=== PATIENT | male | born 1995 | race Caucasian/White ===

== ENCOUNTER 2023-05-21 13:37 | Emergency (ER) | payer OTHER, SELFPAY ==
[2023-05-21 13:49] VITALS: BP 134/83; PULSE 72; RESP 18; TEMP 36.9; O2SAT 97; BMI 18.7
--- NOTE | 2023-05-21 14:00 | CT_ITS ---
The [address] [address] Patient Name: LULY GIRON MRN: [id number] date: 1995 Sex: M Assigned Patient Location: ER Current Patient Location: Accession/Order Number: [id number] Exam Date: 05/21/2023 14:19 Report Date: 05/21/2023 15:18 At the request of: MEHRDAD VELOZ Procedure: CT abdomen pelvis wo con EXAM: CT abdomen pelvis wo con HISTORY: upper abdominal pain, vomiting right upper quadrant pain for 2 weeks. COMPARISON: 12/24/2021. TECHNIQUE: Axial CT imaging was performed through the abdomen and pelvis without intravenous contrast. Multiplanar reformats were performed. Dose reduction techniques were achieved by using automated exposure control and/or adjustment of mA and/or kV according to patient size and/or use of iterative reconstruction technique. FINDINGS: Lung bases: Lung bases are clear. No pleural effusion. GI upper: Unremarkable. Liver: Normal size and contour. Postsurgical changes compatible with provided history of liver transplant. Gallbladder: Surgically absent. Biliary system: No intra or extrahepatic biliary ductal dilatation. Spleen: Normal size. Pancreas: Unremarkable. Adrenal glands: Normal adrenal glands. Kidneys/ureters: Normal contours. No hydronephrosis or ureterolithiasis. Bilateral nephrolithiasis is demonstrated with slightly increased stone burden compared to prior examination. Vessels: No aneurysm. Lymph Nodes: No lymphadenopathy. Small bowel: No wall thickening or dilatation. Colon: No wall thickening or dilatation. Appendix: Not identified; no evidence of inflammatory change of the right lower quadrant. Peritoneal cavity: Trace/small volume free fluid within the pelvis. There is mild mesenteric edema. No pneumoperitoneum. Lower : Bladder wall prominence is favored related to decompressed state. Please exclude other etiologies on clinical grounds. Bones: No acute bony abnormality. Soft tissues: No acute finding. Additional findings: None. CT/CT abdomen pelvis wo con IMPRESSION: 1. Bilateral nephrolithiasis. No obstructive uropathy. 2. Trace/small volume free fluid within the pelvis with mild, diffuse mesenteric edema. Findings are nonspecific. In patient with history of liver transplant, portal hypertension should be considered as etiology. 3. Additional findings as above. Electronically authenticated by: ARLEEN ENGLE Date: 05/21/2023 15:18
[2023-05-21] MEDS: ONDANSETRON PF 4 MG/2 ML VIAL IV (14:11)
[2023-05-21] MEDS: HYOSCYAMINE SULFATE 0.125 MG TAB.SUBL SL (14:11)
[2023-05-21] MEDS: 0.9 % SODIUM CHLORIDE 1,000 ML 999 ML IV (14:11)
[2023-05-21 14:12] LABS: Basophils Percent Auto 0.7 % (0.2-2.0); Eosinophils Absolute Auto 0.1 10^3/uL (0.0-0.7); Eosinophils Percent Auto 1.3 % (0.9-7.0); Hematocrit 40.7 % (42.0-54.0); Hemoglobin 13.5 g/dL (14.0-18.0); Immature Granulocytes Abs Auto 0.01 10^3/uL (0.00-0.03); Immature Granulocytes Pct Auto 0.2 % (0.0-0.5); Lymphocytes Absolute Auto 2.1 10^3/uL (1.2-3.8); Lymphocytes Percent Auto 37.9 % (20.5-60.0); Mean Corpuscular HGB Conc 33.2 g/dL (29.9-35.2); Mean Corpuscular Hemoglobin 31.1 pg (25.9-34.0); Mean Corpuscular Volume 93.8 fL (80.0-94.0); Mean Platelet Volume 11.3 fL (9.5-13.5); Monocytes Absolute Auto 0.4 10^3/uL (0.3-0.8); Neutrophils Absolute Auto 2.9 10^3/uL (1.4-6.5); Neutrophils Percent Auto 51.9 % (43.0-75.0); Platelet Count 173 10^3/uL (150-450); Red Blood Count 4.34 10^6/uL (4.70-6.10); Red Cell Distribution Width 12.9 % (11.0-15.0); White Blood Count 5.5 10^3/uL (4.0-11.0)
[2023-05-21 14:14] LABS: Bilirubin Urine SMALL (NEGATIVE); Blood Urine TRACE-I (NEGATIVE); Clarity Urine CLEAR (CLEAR); Color Urine YELLOW (YELLOW); Glucose Urine UA NEGATIVE (NEGATIVE); Ketones Urine TRACE mg/dL (NEGATIVE); Leukocyte Esterase Urine TRACE (NEGATIVE); Nitrite Urine NEGATIVE (NEGATIVE); Protein Urine NEGATIVE (NEG/TRACE); Specific Gravity Urine 1.025 (1.005-1.025)
[2023-05-21 14:23] LABS: Urine Microscopic Indicated YES
[2023-05-21 14:25] LABS: Alanine Aminotransferase 93 U/L (16-63); Albumin Globulin Ratio 0.8; Albumin Level 3.3 g/dL (3.4-5.0); Alkaline Phosphatase 212 U/L (46-116); Anion Gap 11.6; Aspartate Amino Transferase 91 U/L (15-37); BUN Creatinine Ratio 16.5; Bilirubin Total 1.4 mg/dL (0.2-1.0); Calcium 8.8 mg/dL (8.5-10.1); Carbon Dioxide 27.7 mmol/L (21.0-32.0); Chloride 103 mmol/L (98-107); Estimated GFR (African America >60 (>=60); Estimated GFR (Non-African Ame >60 (>=60); Globulin 4.2 g/dL; Glucose 201 mg/dL (74-106); Potassium 4.3 mmol/L (3.5-5.1); Sodium 138 mmol/L (136-145); Total Protein 7.5 g/dL (6.4-8.2)
[2023-05-21 14:46] LABS: Bacteria Urine TRACE #/HPF (NONE SEEN); Cast Seen? SEEN #/LPF (NONE SEEN); Crystals Seen? None Seen #/HPF (None Seen); Hyaline Casts Urine RARE; Mucus Urine SMALL (NONE SEEN); Squamous Epithelial Cell Urine FEW #/LPF (NONE/RARE); Urine Culture Indicated YES
--- NOTE | 2023-05-21 16:01 | ED_ITS ---
HPI - General Adult General Chief complaint: Abdominal Pain Stated complaint: HEADACHE Time Seen by Provider: 05/21/23 13:53 Source: patient and family Mode of arrival: walk-in Limitations: no limitations History of Present Illness HPI narrative: Patient presents with one week of fatigue, 4 days of RUQ abdominal pain, 2 days of nausea/vomiting and yellow stools. He had liver transplant in 2015 and sees [facility] transplant team for that. 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 He apparently had kissing disease in December =- mono? He is concerned that he might be dehydrated after working outside. No urinary symptoms, fever or chills. He had prior cholecystectomy when they performed the liver transplant. Related Data Home Medications Medication Instructions Recorded Confirmed amlodipine 5 mg tablet 5 mg PO DAILY 05/21/23 05/21/23 aspirin 81 mg tablet,delayed 81 mg PO DAILY 05/21/23 05/21/23 release (Adult Low Dose Aspirin) insulin lispro 100 unit/mL 1 sliding scale dose 05/21/23 subcutaneous solution magnesium oxide 400 mg (241.3 mg 400 mg PO BID 05/21/23 05/21/23 magnesium) tablet mycophenolate mofetil 250 mg 250 mg PO Q12H 05/21/23 05/21/23 capsule prednisone 1 mg tablet 1 mg PO DAILY 05/21/23 05/21/23 tacrolimus 1 mg capsule, 1 mg PO Q12H 05/21/23 05/21/23 immediate-release Previous Rx's Medication Instructions Recorded ciprofloxacin HCl 500 mg tablet 500 mg PO BID #10 tabs 05/21/23 (Cipro) hyoscyamine sulfate 0.125 mg 0.125 mg PO Q6H PRN abdominal pain 05/21/23 sublingual tablet (Levsin/SL) #20 tabs ondansetron 4 mg disintegrating 4 mg PO Q6H PRN nausea and 05/21/23 tablet vomiting #20 tabs Allergies Allergy/AdvReac Type Severity Reaction Status Date / Time No Known Drug Allergies Allergy Verified 05/21/23 13:45 PFSH PFSH Social History Smoking status: Never smoker Exam Narrative Exam Narrative: Nurses notes and vital signs reviewed and patient is not hypoxic. afebrile General: Well-appearing and in no apparent distress. Skin: Warm, dry, no pallor noted. No rash. Head: Normocephalic, atraumatic. Neck: Supple, non-tender. Eye: Pupils are equal, round and EOMI. No scleral icterus. Ears, Nose, Mouth, and Throat: Oral mucosa is dry Cardiovascular: Regular Rate and Rhythm without murmur, gallop or rub. Respiratory: No accessory muscle use or respiratory distress. Lungs are clear to auscultation, no wheezing, rales or rhonchi Back: No CVA tenderness Musculoskeletal: normal ROM GI: Abdomen is soft, non-distended. Normal bowel sounds. No masses appreciated. RUQ tenderness to palpation. No rebound, guarding, or rigidity noted. Neurological: A&O x4. No cranial nerve dysfunction observed. No truncal ataxia. Moves all extremities. Sensation intact. Psychiatric: Cooperative and interactive. Normal mood and affect. Constitutional Vital Signs, click to edit/add: Last Vital Signs Temp 98.5 F 05/21/23 13:49 Pulse 63 05/21/23 16:11 Resp 16 05/21/23 16:11 BP 116/75 05/21/23 16:11 Pulse Ox 100 05/21/23 16:11 O2 Del Method Room Air 05/21/23 16:11 Course Vital Signs Vital signs: Vital Signs Temperature 98.5 F 05/21/23 13:49 Pulse Rate 72 05/21/23 13:49 Respiratory Rate 18 05/21/23 13:49 Blood Pressure 134/83 05/21/23 13:49 Pulse Oximetry 97 05/21/23 13:49 Oxygen Delivery Method Room Air 05/21/23 13:49 Temperature 98.5 F 05/21/23 13:49 Pulse Rate 63 05/21/23 16:11 Respiratory Rate 16 05/21/23 16:11 Blood Pressure 116/75 05/21/23 16:11 Pulse Oximetry 100 05/21/23 16:11 Oxygen Delivery Method Room Air 05/21/23 16:11 Medical Decision Making MDM Narrative Medical decision making narrative: Peripheral IV established and blood sent for testing. Patient underwent CT abd/pelvis - I did it without contrast due to the patient's CKD history. He has bilateral nephroliths without obstructive uropathy or ureteral stones. Trace free fluid in the pelvis with some mesenteric edema - non-specific. Radiologist asked that portal HTN be considered. Bladder wall prominence consistent with UA findings suggesting cystitis - patient prescribed antibiotic for home use. No focal RUQ findings to account for the patient's pain. He felt better after ED treatment and was able to be discharged home. I prescribed zofran and Levsin for the patient to take at home and discussed dietary changes - clear liquids - until the symptoms improved. Lab Data Lab results reviewed: Yes I reviewed the patient's lab results Labs: Lab Results 05/21/23 Range/Units 13:57 WBC 5.5 (4.0-11.0) 10^3/uL RBC 4.34 L (4.70-6.10) 10^6/uL Hgb 13.5 L (14.0-18.0) g/dL Hct 40.7 L (42.0-54.0) % MCV 93.8 (80.0-94.0) fL MCH 31.1 (25.9-34.0) pg MCHC 33.2 (29.9-35.2) g/dL RDW 12.9 (11.0-15.0) % Plt Count 173 (150-450) 10^3/uL MPV 11.3 (9.5-13.5) fL Neut % (Auto) 51.9 (43.0-75.0) % Lymph % (Auto) 37.9 (20.5-60.0) % [place] % (Auto) 8.0 (1.7-12.0) % Eos % (Auto) 1.3 (0.9-7.0) % Baso % (Auto) 0.7 (0.2-2.0) % Neut # (Auto) 2.9 (1.4-6.5) 10^3/uL Lymph # (Auto) 2.1 (1.2-3.8) 10^3/uL [place] # (Auto) 0.4 (0.3-0.8) 10^3/uL Eos # (Auto) 0.1 (0.0-0.7) 10^3/uL Baso # (Auto) 0.0 (0.0-0.1) 10^3/uL Abs Immat Gran (auto) 0.01 (0.00-0.03) 10^3/uL Imm/Tot Granulo (auto) 0.2 (0.0-0.5) % Sodium 138 (136-145) mmol/L Potassium 4.3 (3.5-5.1) mmol/L Chloride 103 (98-107) mmol/L Carbon Dioxide 27.7 (21.0-32.0) mmol/L Anion Gap 11.6 BUN 19.0 H (7.0-18.0) mg/dL Creatinine 1.15 (0.70-1.30) mg/dL Est GFR ( Amer) >60 (>=60) Est GFR (Non-Af Amer) >60 (>=60) BUN/Creatinine Ratio 16.5 Glucose 201 H (74-106) mg/dL Calcium 8.8 (8.5-10.1) mg/dL Total Bilirubin 1.4 H (0.2-1.0) mg/dL AST 91 H (15-37) U/L ALT 93 H (16-63) U/L Alkaline Phosphatase 212 H (46-116) U/L Total Protein 7.5 (6.4-8.2) g/dL Albumin 3.3 L (3.4-5.0) g/dL Globulin 4.2 g/dL Albumin/Globulin Ratio 0.8 Lipase 111.0 (73.0-393.0) U/L Urine Color Yellow (YELLOW) Urine Clarity Clear (CLEAR) Urine pH 6.0 (5.0-9.0) Ur Specific [place] 1.025 (1.005-1.025) Urine Protein Negative (NEG/TRACE) mg/dL Urine Glucose (UA) Negative (NEGATIVE) mg/dL Urine Ketones Trace A (NEGATIVE) mg/dL Urine Occult Blood Trace-i (NEGATIVE) Urine Nitrite Negative (NEGATIVE) Urine Bilirubin Small A (NEGATIVE) Urine Urobilinogen 4.0 A (0.2-1.0) EU/dL Ur Leukocyte Esterase Trace A (NEGATIVE) Urine RBC 2-5 A (0-2) #/HPF Urine WBC 5-10 A (NONE SEEN) #/HPF Ur Squamous Epith Cells Few A (NONE/RARE) #/LPF Urine Crystals None seen (None Seen) #/HPF Urine Bacteria Trace A (NONE SEEN) #/HPF Urine Casts Seen A (NONE SEEN) #/LPF Hyaline Casts Rare Urine Mucus Small A (NONE SEEN) Ur Culture Indicated? Yes Imaging Data CT scan - abdomen: Radiologist's impression: Patient Name: LULY GIRON MRN: [id number] date: 1995 Sex: M Assigned Patient Location: ER Current Patient Location: ER Accession/Order Number: [id number] Exam Date: 05/21/2023 14:19 Report Date: 05/21/2023 15:18 At the request of: MEHRDAD VELOZ Procedure: CT abdomen pelvis wo con EXAM: CT abdomen pelvis wo con HISTORY: upper abdominal pain, vomiting right upper quadrant pain for 2 weeks. COMPARISON: 12/24/2021. TECHNIQUE: Axial CT imaging was performed through the abdomen and pelvis without intravenous contrast. Multiplanar reformats were performed. Dose reduction techniques were achieved by using automated exposure control and/or adjustment of mA and/or kV according to patient size and/or use of iterative reconstruction technique. FINDINGS: Lung bases: Lung bases are clear. No pleural effusion. GI upper: Unremarkable. Liver: Normal size and contour. Postsurgical changes compatible with provided history of liver transplant. Gallbladder: Surgically absent. Biliary system: No intra or extrahepatic biliary ductal dilatation. Spleen: Normal size. Pancreas: Unremarkable. Adrenal glands: Normal adrenal glands. Kidneys/ureters: Normal contours. No hydronephrosis or ureterolithiasis. Bilateral nephrolithiasis is demonstrated with slightly increased stone burden compared to prior examination. Vessels: No aneurysm. Lymph Nodes: No lymphadenopathy. Small bowel: No wall thickening or dilatation. Colon: No wall thickening or dilatation. Appendix: Not identified; no evidence of inflammatory change of the right lower quadrant. Peritoneal cavity: Trace/small volume free fluid within the pelvis. There is mild mesenteric edema. No pneumoperitoneum. Lower : Bladder wall prominence is favored related to decompressed state. Please exclude other etiologies on clinical grounds. Bones: No acute bony abnormality. Soft tissues: No acute finding. Additional findings: None. IMPRESSION: 1. Bilateral nephrolithiasis. No obstructive uropathy. 2. Trace/small volume free fluid within the pelvis with mild, diffuse mesenteric edema. Findings are nonspecific. In patient with history of liver transplant, portal hypertension should be considered as etiology. 3. Additional findings as above. Electronically authenticated by: ARLEEN ENGLE Date: 05/21/2023 15:18 Discharge Plan Discharge Chief Complaint: Abdominal Pain Clinical Impression: Abdominal pain, Cystitis, Vomiting Patient Disposition: Home, Self-Care Time of Disposition Decision: 16:20 Prescriptions / Home Meds: New hyoscyamine sulfate [Levsin/SL] 0.125 mg tablet, sublingual 0.125 mg PO Q6H PRN (Reason: abdominal pain) Qty: 20 0RF ondansetron 4 mg tablet,disintegrating 4 mg PO Q6H PRN (Reason: nausea and vomiting) Qty: 20 0RF ciprofloxacin HCl [Cipro] 500 mg tablet 500 mg PO BID Qty: 10 0RF No Action amlodipine 5 mg tablet 5 mg PO DAILY magnesium oxide 400 mg (241.3 mg magnesium) tablet 400 mg PO BID mycophenolate mofetil 250 mg capsule 250 mg PO Q12H prednisone 1 mg tablet 1 mg PO DAILY tacrolimus 1 mg capsule 1 mg PO Q12H aspirin [Adult Low Dose Aspirin] 81 mg tablet,delayed release (DR/EC) 81 mg PO DAILY insulin lispro 100 unit/mL solution 1 sliding scale dose Rx Instructions: Insulin pump Instructions: Urinary Tract Infection in Men (ED), Acute Nausea and Vomiting (ED), Abdominal Pain (ED) Stand Alone Forms: Portal Instructions Referrals: Camille Avila MD [Primary Care Provider] - 1 week
[2023-05-21 16:11] VITALS: BP 116/75; PULSE 63; RESP 16; O2SAT 100
[2023-05-21 18:07] LABS: Mono Screen NEGATIVE (NEGATIVE)
== END 2023-05-21 16:27 | disposition home or self-care (01) ==
PROVIDERS: Emergency Provider Emergency Medicine; PCP Family Medicine
DX: N30.90 Cystitis, unspecified without hematuria (principal); R10.9 Unspecified abdominal pain; R11.10 Vomiting, unspecified; Z94.4 Liver transplant status; N18.9 Chronic kidney disease, unspecified; Z90.49 Acquired absence of other specified parts of digestive tract; Z79.82 Long term (current) use of aspirin; Z79.899 Other long term (current) drug therapy; Z79.4 Long term (current) use of insulin
CPT/HCPCS: 36415; 74176; 80053; 81001; 83690; 85025; 86308; 87086; 96374; 99285

== ENCOUNTER 2024-05-08 20:40 | Emergency (ER) | payer OTHER, SELFPAY ==
[2024-05-08 20:44] VITALS: BP 138/99; PULSE 97; TEMP 36.7; O2SAT 99; BMI 17.9
--- NOTE | 2024-05-08 20:56 | PC.NURSE ---
Red slightly raised rash to left groin area, no drainage present.
--- NOTE | 2024-05-08 21:00 | CT_ITS ---
[address] [address] Patient Name: LULY GIRON MRN: [id number] date: 1995 Sex: M Assigned Patient Location: ER Current Patient Location: ER Accession/Order Number: [id number] Exam Date: 05/08/2024 21:18 Report Date: 05/08/2024 23:07 At the request of: DANIELITO MARKER Procedure: CT abdomen pelvis wo con EXAMINATION:CT abdomen pelvis wo con INDICATION:left flank pain hx kidney stones COMPARISON:05/21/2023 TECHNIQUE:Multiple thin section transaxial slices were acquired through the abdomen and pelvis without intravenous contrast. Coronal and sagittal reconstructed images were reviewed. Oral contrastWas not administered. FINDINGS: LOWER CHEST: Lung bases are clear. There is increased attenuation of the interventricular septum in the heart consistent with chronic anemia. LIVER: Status post liver transplant. There is a heterogeneous attenuation of the liver. GALLBLADDER AND BILIARY SYSTEM: The gallbladder surgically absent. SPLEEN: The spleen is upper limits of normal in size measuring 13 cm. PANCREAS: The pancreas is unremarkable. ADRENAL GLANDS: The adrenal glands are unremarkable. KIDNEYS AND URETERS: There is no hydronephrosis of the kidneys.Ureters are within normal limits without obstructing urologic calcifications. There are numerous nonobstructive bilateral intrarenal calculi present. VASCULATURE: No aneurysm of the abdominal aorta. PERITONEUM/RETROPERITONEUM: There is mild ascites and mesenteric edema. LYMPH NODES: No suspicious lymphadenopathy. GASTROINTESTINAL TRACT: The bowel is normal in caliber.The small bowel loops, predominantly the jejunum demonstrates diffuse wall thickening. Enteritis cannot be excluded.The appendix is visualized and is not inflamed. BLADDER: The urinary bladder is unremarkable. REPRODUCTIVE SYSTEM: Reproductive system is unremarkable. BODY WALL: There is a tiny fat-containing umbilical hernia. BONES: Osseous structures are unremarkable. CT/CT abdomen pelvis wo con IMPRESSION: 1. Heterogeneous attenuation of the liver. 2. Multiple nonobstructive bilateral intrarenal calculi. No obstructive uropathy. 3. There is apparent wall thickening of the small bowel loops, predominantly the jejunum. Enteritis cannot be excluded. 4. Mild ascites and diffuse mesenteric edema. Electronically authenticated by: HARRIET MOTT Date: 05/08/2024 23:07
--- NOTE | 2024-05-08 21:02 | ED.GENADUL1 ---
HPI HPI - General Adult General Chief complaint: Back Pain/Injury Stated complaint: Back Pain Time Seen by Provider: 05/08/24 20:51 Source: patient Mode of arrival: walk-in History of Present Illness HPI narrative: This 29-year-old male with a history of diabetes, chronic kidney disease and is status post liver transplant in 2016 due to autoimmune liver disease presents for evaluation of 3 to 4 days of left sided low back pain. He thought he may have sciatica but points to the left flank. He has not had any fever. He has not had any nausea or vomiting. He states his sugars have been running high. He does have a history of kidney stones. He denies any chest pain or shortness of breath. He also has a flat dry pink rash with some small pustules on his left inguinal area that has been present for the past several days. He states it is a stinging and burning sensation. There has been no drainage from the area. There is no extension into the perineum. Related Data Home Medications ?Medication ?Instructions ?Recorded ?Confirmed amlodipine 5 mg tablet 5 mg PO DAILY 05/21/23 05/21/23 aspirin 81 mg tablet,delayed 81 mg PO DAILY 05/21/23 05/21/23 release (Adult Low Dose Aspirin) insulin lispro 100 unit/mL 1 sliding scale dose 05/21/23 subcutaneous solution magnesium oxide 400 mg (241.3 mg 400 mg PO BID 05/21/23 05/21/23 magnesium) tablet mycophenolate mofetil 250 mg 250 mg PO Q12H 05/21/23 05/21/23 capsule prednisone 1 mg tablet 1 mg PO DAILY 05/21/23 05/21/23 tacrolimus 1 mg capsule, 1 mg PO Q12H 05/21/23 05/21/23 immediate-release Previous Rx's ?Medication ?Instructions ?Recorded ciprofloxacin HCl 500 mg tablet 500 mg PO BID #10 tabs 05/21/23 (Cipro) hyoscyamine sulfate 0.125 mg 0.125 mg PO Q6H PRN abdominal pain 05/21/23 sublingual tablet (Levsin/SL) #20 tabs ondansetron 4 mg disintegrating 4 mg PO Q6H PRN nausea and 05/21/23 tablet vomiting #20 tabs Allergies Allergy/AdvReac Type Severity Reaction Status Date / Time red (food color) AdvReac Intermediate Swelling Verified 05/08/24 20:49 of Lip/Tongue/Throat Opioid HPI Opioid Management Most Recent Opioid Data: Last Pain Scale 8 05/08/24 21:37 Last ED Pain Assessment 05/08/24 22:15 Review of Systems ROS Status of ROS 10 or more systems reviewed and unremarkable except as noted in history and below [facility] Medical History (Updated 05/08/24 @ 23:33 by Vicenta Cantu MD) Hypertension ?I10 - Essential (primary) hypertension (ICD-10) Diabetes ?E11.9 - Type 2 diabetes mellitus without complications (ICD-10) Surgical History (Updated 05/08/24 @ 20:51 by Holli Amato) Liver transplant recipient ?Z94.4 - Liver transplant status (ICD-10) Social History Smoking status: Never smoker Exam Narrative Exam Narrative: Vital signs and Nursing Notes reviewed: Patient is afebrile with a normal pulse, blood pressure is mildly elevated at 138/99, he is not hypoxic with pulse ox of 99% on room air General: Awake, alert, oriented, nontoxic, thin male, no respiratory distress HEENT: Normocephalic atraumatic, mucous membranes are moist and pink, eyes are clear, normal conjunctiva, vision is grossly intact, posterior pharynx is normal in appearance. Neck: Supple, no meningeal signs, no anterior or posterior cervical lymphadenopathy Chest: Lungs are clear to auscultation with good air entry, there is no wheezing rhonchi or rales appreciated no accessory muscle use, patient is speaking in complete sentences-no chest wall tenderness to palpation CVS: Regular rate and rhythm S1-S2, no murmurs rubs or gallops, pulses are brisk and equal bilaterally ABD: Soft, nondistended, nontender, no rebound guarding or rigidity, bowel sounds are normal, no pulsatile masses appreciated. Healed incision in the right upper quadrant status post kidney transplant Extremities: Moving all extremities, no lower extremity tenderness or swelling noted, negative Homans' sign, pulses are brisk and equal bilaterally Skin: Skin is warm, dry, in the left inguinal area there is a non petechial, non-purpural rash that extends approx 8 cm down onto the left anterior thigh, there are a few small pustules noted- mostly on the thigh that appear to be a folliculitis. No sign of abscess or cellulitis. There is no extension of this rash under the glans of the penis or the scrotum. There is no sign of any necrotizing fasciitis in the perineal area. Neuro: No focal deficits Constitutional Vital Signs, click to edit/add: Last Vital Signs Temp 98.1 F 05/08/24 20:44 Pulse 60 05/08/24 22:37 Resp 20 05/08/24 22:37 BP 131/90 05/08/24 22:37 Pulse Ox 97 05/08/24 22:37 O2 Del Method Room Air 05/08/24 22:37 Course Vital Signs Vital signs: Vital Signs Temperature 98.1 F 05/08/24 20:44 Pulse Rate 97 H 05/08/24 20:44 Respiratory Rate 16 05/08/24 20:44 Blood Pressure 138/99 H 05/08/24 20:44 Pulse Oximetry 99 05/08/24 20:44 Oxygen Delivery Method Room Air 05/08/24 20:44 Temperature 98.1 F 05/08/24 20:44 Pulse Rate 60 05/08/24 22:37 Respiratory Rate 20 05/08/24 22:37 Blood Pressure 131/90 05/08/24 22:37 Pulse Oximetry 97 05/08/24 22:37 Oxygen Delivery Method Room Air 05/08/24 22:37 Medical Decision Making MDM Narrative Medical decision making narrative: This 29-year-old male with a history of diabetes, chronic renal disease and who is status post liver transplant in 2016 due to an autoimmune liver disease presents for evaluation of several days of left-sided low back pain. He also states his sugar has been running high and has a rash in his right mons pubis and right inguinal area that extends down into his right thigh with some small pustules. He has not had a fever. He denies any urinary symptoms. He does have a history of kidney stones. He denies any nausea or vomiting. He has no chest pain or shortness of breath. His vital signs are stable. His physical exam is benign with some mild tenderness in the left lateral lumbar region. The patient thought he had sciatica but is not tender in his buttocks or piriformis area and his symptoms are not consistent with sciatica. Due to his complicated medical history an IV was placed and routine labs were ordered. He has a normal white count and hemoglobin. His glucose is elevated today at 516. He has a normal sodium of 133, potassium 4.6, chloride 99, CO2 29, BUN 19 and creatinine 1.47. This BUN and creatinine are elevated compared to a year ago when his BUN is 19 and creatinine was 1.15. Lipase is normal. His total bilirubin is today is 3.4, AST is 77, ALT is 116 and alk phos is 260. A year ago his total bili was 1.4, AST was 91, ALT is 93 and alk phos is 212. The results of these bodies were discussed with the patient and he was encouraged to follow-up closely with his transplant team. He does not appear to be jaundiced. With regards to his elevated glucose he admits that he ate a bunch of junk food earlier in the day which is probably why his glucose is elevated. He chose to bolus himself with his insulin pump instead of receive IV insulin in the emergency department. He did receive IV fluids, 4 mg of morphine and 4 mg of Zofran with control of his pain. His urine is negative for infection but does show some red blood cells. Lactic acid is normal. CT scan of the abdomen pelvis without contrast was ordered and does not show any acute findings but does show kidney stones in both kidneys without hydronephrosis or ureteral stones. The results of the labs and CT scans were discussed with the patient. He did get 1 g of IV Rocephin for the folliculitis he appears to have in the right inguinal area which extends onto his right leg. I explained to him that this may be developing cellulitis and he should monitor it closely. He should also keep tight control of his glucose. He will be discharged home with a topical spray powder to apply to the area in his inguinal area to keep it dry as well as Keflex and [place] for the back pain. He was encouraged to follow-up closely with his transplant team at [facility]. Medical Records Medical records reviewed: Yes I reviewed the patient's medical records Medical records narrative: The [address] [address] [address] Scan Report Signed Patient: LULY GIRON MR#: [id number] : 1995 Acct:[id number] Age/Sex: 29 / M ADM Date: 05/08/24 Loc: ER Attending Dr: Ordering Physician: Vicenta Cantu Date of Service: 05/08/24 Procedure(s): CT abdomen pelvis wo con Accession Number(s): [id number] cc: Camille Avila M.D.~ The [place] [id number] Patient Name: LULY GIRON MRN: [id number] date: 1995 Sex: M Assigned Patient Location: ER Current Patient Location: ER Accession/Order Number: [id number] Exam Date: 05/08/2024 21:18 Report Date: 05/08/2024 23:07 At the request of: VICENTA MARKER Procedure: CT abdomen pelvis wo con EXAMINATION:CT abdomen pelvis wo con INDICATION:left flank pain hx kidney stones COMPARISON:05/21/2023 TECHNIQUE:Multiple thin section transaxial slices were acquired through the abdomen and pelvis without intravenous contrast. Coronal and sagittal reconstructed images were reviewed. Oral contrastWas not administered. FINDINGS: LOWER CHEST: Lung bases are clear. There is increased attenuation of the interventricular septum in the heart consistent with chronic anemia. LIVER: Status post liver transplant. There is a heterogeneous attenuation of the liver. GALLBLADDER AND BILIARY SYSTEM: The gallbladder surgically absent. SPLEEN: The spleen is upper limits of normal in size measuring 13 cm. PANCREAS: The pancreas is unremarkable. ADRENAL GLANDS: The adrenal glands are unremarkable. KIDNEYS AND URETERS: There is no hydronephrosis of the kidneys.Ureters are within normal limits without obstructing urologic calcifications. There are numerous nonobstructive bilateral intrarenal calculi present. VASCULATURE: No aneurysm of the abdominal aorta. PERITONEUM/RETROPERITONEUM: There is mild ascites and mesenteric edema. LYMPH NODES: No suspicious lymphadenopathy. GASTROINTESTINAL TRACT: The bowel is normal in caliber.The small bowel loops, predominantly the jejunum demonstrates diffuse wall thickening. Enteritis cannot be excluded.The appendix is visualized and is not inflamed. BLADDER: The urinary bladder is unremarkable. REPRODUCTIVE SYSTEM: Reproductive system is unremarkable. BODY WALL: There is a tiny fat-containing umbilical hernia. BONES: Osseous structures are unremarkable. CT/CT abdomen pelvis wo con IMPRESSION: 1. Heterogeneous attenuation of the liver. 2. Multiple nonobstructive bilateral intrarenal calculi. No obstructive uropathy. 3. There is apparent wall thickening of the small bowel loops, predominantly the jejunum. Enteritis cannot be excluded. 4. Mild ascites and diffuse mesenteric edema. Electronically authenticated by: HARRIET MOTT Date: 05/08/2024 23:07 Lab Data Lab results reviewed: Yes I reviewed the patient's lab results Labs: Lab Results 05/08/24 05/08/24 05/08/24 Range/Units 21:10 21:43 22:40 WBC 6.7 (4.0-11.0) 10^3/uL RBC 4.21 L (4.70-6.10) 10^6/uL Hgb 13.1 L (14.0-18.0) g/dL Hct 40.1 L (42.0-54.0) % MCV 95.2 H (80.0-94.0) fL MCH 31.1 (25.9-34.0) pg MCHC 32.7 (29.9-35.2) g/dL RDW 13.9 (11.0-15.0) % Plt Count 120 L (150-450) 10^3/uL MPV 12.2 (9.5-13.5) fL Neut % (Auto) 84.4 H (43.0-75.0) % Lymph % (Auto) 11.2 L (20.5-60.0) % [place] % (Auto) 3.0 (1.7-12.0) % Eos % (Auto) 0.0 L (0.9-7.0) % Baso % (Auto) 0.4 (0.2-2.0) % Neut # (Auto) 5.7 (1.4-6.5) 10^3/uL Lymph # (Auto) 0.8 L (1.2-3.8) 10^3/uL [place] # (Auto) 0.2 L (0.3-0.8) 10^3/uL Eos # (Auto) 0.0 (0.0-0.7) 10^3/uL Baso # (Auto) 0.0 (0.0-0.1) 10^3/uL Abs Immat Gran (auto) 0.07 H (0.00-0.03) 10^3/uL Imm/Tot Granulo (auto) 1.0 H (0.0-0.5) % Sodium 133 L (136-145) mmol/L Potassium 4.6 (3.5-5.1) mmol/L Chloride 99 (98-107) mmol/L Carbon Dioxide 29.8 (21.0-32.0) mmol/L Anion Gap 8.8 BUN 19.0 H (7.0-18.0) mg/dL Creatinine 1.47 H (0.70-1.30) mg/dL Est GFR ( Amer) >60 (>=60) Est GFR (Non-Af Amer) 56 L (>=60) BUN/Creatinine Ratio 12.9 Glucose 516 H* (74-106) mg/dL Lactate 1.9 (0.4-2.0) mmol/L Calcium 8.5 (8.5-10.1) mg/dL Total Bilirubin 3.4 H (0.2-1.0) mg/dL AST 77 H (15-37) U/L ALT 116 H (16-63) U/L Alkaline Phosphatase 260 H (46-116) U/L Total Protein 6.1 L (6.4-8.2) g/dL Albumin 2.3 L (3.4-5.0) g/dL Globulin 3.8 g/dL Albumin/Globulin Ratio 0.6 Lipase 35.0 (16.0-77.0) U/L Urine Color Yellow (YELLOW) Urine Clarity Clear (CLEAR) Urine pH 6.5 (5.0-9.0) Ur Specific [place] 1.010 (1.005-1.025) Urine Protein Negative (NEG/TRACE) mg/dL Urine Glucose (UA) >=1000 A (NEGATIVE) mg/dL Urine Ketones Negative (NEGATIVE) mg/dL Urine Occult Blood Moderate A (NEGATIVE) Urine Nitrite Negative (NEGATIVE) Urine Bilirubin Negative (NEGATIVE) Urine Urobilinogen 0.2 (0.2-1.0) EU/dL Ur Leukocyte Esterase Negative (NEGATIVE) Urine RBC 5-10 A (0-2) #/HPF Urine WBC 0-2 A (NONE SEEN) #/HPF Ur Squamous Epith Cells None seen (NONE/RARE) #/LPF Urine Crystals None seen (None Seen) #/HPF Urine Bacteria None seen (NONE SEEN) #/HPF Urine Casts None seen (NONE SEEN) #/LPF Urine Mucus None seen (NONE SEEN) Ur Culture Indicated? No Acetone, Qual Negative (NEGATIVE) POC Glucose 408 H (74-106) mg/dL Discharge Plan Discharge Stand Alone Forms: Portal Instructions Chief Complaint: Back Pain/Injury Clinical Impression: Acute lumbar back pain, Hyperglycemia due to type 1 diabetes mellitus, Folliculitis Patient Disposition: Home, Self-Care Time of Disposition Decision: 23:32 Condition: Good Prescriptions / Home Meds: No Action amlodipine 5 mg tablet 5 mg PO DAILY magnesium oxide 400 mg (241.3 mg magnesium) tablet 400 mg PO BID mycophenolate mofetil 250 mg capsule 250 mg PO Q12H prednisone 1 mg tablet 1 mg PO DAILY tacrolimus 1 mg capsule 1 mg PO Q12H aspirin [Adult Low Dose Aspirin] 81 mg tablet,delayed release (DR/EC) 81 mg PO DAILY insulin lispro 100 unit/mL solution 1 sliding scale dose Rx Instructions: Insulin pump hyoscyamine sulfate [Levsin/SL] 0.125 mg tablet, sublingual 0.125 mg PO Q6H PRN (Reason: abdominal pain) Qty: 20 0RF ondansetron 4 mg tablet,disintegrating 4 mg PO Q6H PRN (Reason: nausea and vomiting) Qty: 20 0RF ciprofloxacin HCl [Cipro] 500 mg tablet 500 mg PO BID Qty: 10 0RF Print Language: [place] Instructions: Acute Low Back Pain (ED), Folliculitis (ED), Diabetic Hyperglycemia (ED) Referrals: Camille Avila MD [Primary Care Provider] - 1 week Discharge Date/Time: 05/09/24 00:24
[2024-05-08 21:26] LABS: Basophils Percent Auto 0.4 % (0.2-2.0); Hematocrit 40.1 % (42.0-54.0); Hemoglobin 13.1 g/dL (14.0-18.0); Immature Granulocytes Abs Auto 0.07 10^3/uL (0.00-0.03); Lymphocytes Absolute Auto 0.8 10^3/uL (1.2-3.8); Lymphocytes Percent Auto 11.2 % (20.5-60.0); Mean Corpuscular HGB Conc 32.7 g/dL (29.9-35.2); Mean Corpuscular Hemoglobin 31.1 pg (25.9-34.0); Mean Corpuscular Volume 95.2 fL (80.0-94.0); Mean Platelet Volume 12.2 fL (9.5-13.5); Monocytes Absolute Auto 0.2 10^3/uL (0.3-0.8); Neutrophils Absolute Auto 5.7 10^3/uL (1.4-6.5); Neutrophils Percent Auto 84.4 % (43.0-75.0); Platelet Count 120 10^3/uL (150-450); Red Blood Count 4.21 10^6/uL (4.70-6.10); Red Cell Distribution Width 13.9 % (11.0-15.0); White Blood Count 6.7 10^3/uL (4.0-11.0)
[2024-05-08] MEDS: 0.9 % SODIUM CHLORIDE 1,000 ML 1000 ML IV ×2 (21:34→23:05)
[2024-05-08 21:37] LABS: Acetone NEGATIVE (NEGATIVE)
[2024-05-08] MEDS: MORPHINE SULFATE 4 MG/ML VIAL IV (21:37)
[2024-05-08 21:44] LABS: Lactate/Lactic Acid 1.9 mmol/L (0.4-2.0)
[2024-05-08 21:50] LABS: Bilirubin Urine NEGATIVE (NEGATIVE); Blood Urine MODERATE (NEGATIVE); Clarity Urine CLEAR (CLEAR); Color Urine YELLOW (YELLOW); Glucose Urine UA >=1000 mg/dL (NEGATIVE); Ketones Urine NEGATIVE (NEGATIVE); Leukocyte Esterase Urine NEGATIVE (NEGATIVE); Nitrite Urine NEGATIVE (NEGATIVE); Protein Urine NEGATIVE (NEG/TRACE); Urobilinogen Urine 0.2 EU/dL (0.2-1.0); pH Urine 6.5 (5.0-9.0)
[2024-05-08 21:50] LABS: Alanine Aminotransferase 116 U/L (16-63); Albumin Globulin Ratio 0.6; Albumin Level 2.3 g/dL (3.4-5.0); Alkaline Phosphatase 260 U/L (46-116); Anion Gap 8.8; Aspartate Amino Transferase 77 U/L (15-37); BUN Creatinine Ratio 12.9; Bilirubin Total 3.4 mg/dL (0.2-1.0); Calcium 8.5 mg/dL (8.5-10.1); Carbon Dioxide 29.8 mmol/L (21.0-32.0); Chloride 99 mmol/L (98-107); Estimated GFR (African America >60 (>=60); Estimated GFR (Non-African Ame 56 (>=60); Globulin 3.8 g/dL; Potassium 4.6 mmol/L (3.5-5.1); Sodium 133 mmol/L (136-145); Total Protein 6.1 g/dL (6.4-8.2)
[2024-05-08 21:53] LABS: Glucose 516 mg/dL (74-106)
[2024-05-08 22:05] LABS: Bacteria Urine NONE SEEN #/HPF (NONE SEEN); Cast Seen? NONE SEEN #/LPF (NONE SEEN); Crystals Seen? None Seen #/HPF (None Seen); Mucus Urine NONE SEEN (NONE SEEN); Squamous Epithelial Cell Urine NONE SEEN #/LPF (NONE/RARE); Urine Culture Indicated NO; WBC Urine 0-2 #/HPF (NONE SEEN)
[2024-05-08] MEDS: ONDANSETRON PF 4 MG/2 ML VIAL IV (22:06)
[2024-05-08 22:37] VITALS: BP 131/90; PULSE 60; O2SAT 97
[2024-05-08 22:41] LABS: Glucometer 408 mg/dL (74-106)
[2024-05-08] MEDS: CEFTRIAXONE 1,000 MG in 0.9 % SODIUM CHLORIDE 50 ML 100 MG IV (23:35)
[2024-05-09] MEDS: HYDROCODONE/ACET 5-325 MG TABLET 2 TAB PO (00:16)
== END 2024-05-09 00:24 | disposition home or self-care (01) ==
PROVIDERS: Emergency Provider Emergency Medicine; PCP Family Medicine
DX: M54.50 Low back pain, unspecified (principal); L73.9 Follicular disorder, unspecified; E10.65 Type 1 diabetes mellitus with hyperglycemia; E10.22 Type 1 diabetes mellitus with diabetic chronic kidney disease; Z79.4 Long term (current) use of insulin; Z94.4 Liver transplant status; Z87.442 Personal history of urinary calculi
CPT/HCPCS: 36415; 74176; 80053; 81001; 82009; 83605; 83690; 85025; 96374; 96375; 99285; J0696; J2270; J2405

== ENCOUNTER 2024-07-14 19:21 | Observation (INO) | payer OTHER, SELFPAY ==
[2024-07-14] VITALS (12 sets, daily range): BP systolic 114–128; BP diastolic 64–88; PULSE 78–90; TEMP 37; O2SAT 96–97; BMI 18.7
--- OUTSIDE RECORDS SUMMARY | 2024-07-14 19:35 | XMS_ITS | CCD ---
Author Organization [facility] Care Team Providers Care General Production Manager Name Role Phone Harmeet Cochran Unavailable Unavailable Sharan Ayoub Unavailable Unavailable Jenni Euceda Unavailable Unavailable Hiren Valdez Unavailable Unavailable Coby Sosa Unavailable Unavailable Jose Roberto Shields Unavailable Unavailable Maury Norris Unavailable Unavailable Jia Burgos Unavailable Unavail able Coby Sosa Primary Care Provider Kennedy Barroso Attending Provider Jaiden Morley Attending Provider [phone] Yaneli Edwards Unavailable Unavailable Harmeet Cochran MD Unavailable Unavailable Sharan Ayoub MD Unavailable Unavailable Jenni Delcid MD Unavailable Unavailable Yaneli Edwards MD Unavailable Unavailable Hiren Valdez MD Unavailable Unavailable Coby Sosa Unavailable Unavailable Jose Roberto Shields Unavailable Unavailable Maury Norris MD Unavailable Unavailable Jia Novak MD Unavailable Unavail able Coby Sosa Unavailable Unavailable Unavailable MD Coby Sosa Primary Care Provider MD Sharan Ayoub Attending Provider MD Coby Sosa Primary Care Provider [phone] MD Sharan Ayoub Attending Provider [phone] COBY SOSA Primary Care Unavailable DR BAO GOMES V Consulting Unavailable LORA WEBBER Admitting Unavailable LORA WEBBER Attending Unavailable LORA WEBBER Consulting Unavailable DR COBY SOSA Primary Care Unavailable LORA WEBBER Admitting Unavailable LORA WEBBER Consulting Unavailable KATKO, LORA D Attending Unavailable MD Coby Sosa Primary Care Provider MD Sharan Ayoub Attending Provider Coby Sosa Unavailable MD Coby Sosa Primary Care Provider MD Sharan Ayoub Attending Provider MD Coby Sosa Attending Provider MD Coby Sosa Primary Care Provider MD Sharan Ayoub Attending Provider MD Coby Sosa Primary Care Provider MD Sharan Ayoub Attending Provider DO Ember Tejeda Attending Provider MD Coby Sosa Primary Care Provider MD Sharan Ayoub Attending Provider Post, Dr. Yung Robles Attending Unava ilable Sosa, Dr. Coby Arreola Primary Care Unav ailable Gholam, Dr. Sharan Young Attending Unavai lable Gholam, Dr. Sharan Young Referring Unavai lable Sosa, Dr. Coby Arreola Primary Care Unav ailable Gholam, Dr. Sharan Young Referring Unavai lable GUNBRAYAN, MD [place] Attending Unava ilable Sosa, Dr. Coby Arreola Primary Care Unav ailable Gholam, Dr. Sharan Young Admitting Unavai lable Gholam, Dr. Sharan Young Referring Unavai lable Sosa, Dr. Coby Arreola Primary Care Unav ailable STEPHANIA, ТАТЬЯНА Attending Unavailable Post, Dr. Yung Robles Attending Unava ilable Sosa, Dr. Coby Arreola Primary Care Unav MD Coby Tinoco Primary Care Provider MD Sharan Ayoub Attending Provider DO Ember Tejeda Referring Provider MD Leighton Reilly Other Provider Austin CHOPRA, Coby Arreola Primary Care Provider Andres RN, Nae Unavailable Unavailable Austin CHOPRA, Coby Arreola Primary Care Provider Unavailable MD Coby Sosa Primary Care Provider MD Sharan Ayoub Attending Provider DO Ember Tejeda Referring Provider MD Leighton Reilly Other Provider MD Coby Sosa Primary Care Provider MD Sharan Ayoub Attending Provider MD Coby Sosa Primary Care Provider MD Sharan Ayoub Attending Provider Coby Sosa MD Primary Care Provider [phone] MD Coby Sosa Primary Care Provider MD Sharan Ayoub Attending Provider Coby Sosa MD Primary Care Provider MD Coby Sosa Primary Care Provider MD Sharan Ayoub Attending Provider MD Coby Sosa Primary Care Provider MD Sharan Ayoub Attending Provider MD Coby Sosa Primary Care Provider MD Sharan Ayoub Attending Provider MD Coby Sosa Primary Care Provider MD Sharan Ayoub Attending Provider MD Coby Sosa Primary Care Provider MD Sharan Ayoub Attending Provider MD Coby Sosa Primary Care Provider MD Sharan Ayoub Attending Provider PETZNICK, EMBER M Attending Unavailable PETZNICK, EMBER M Attending Unavailable PETZNICK, EMBER M Attending Unavailable PETITTI, ZHANE A Attending Unavailable PETZNICK, EMBER M Attending Unavailable PETITTI, ZHANE A Attending Unavailable GHOLAM, SHARAN M Attending Unavailable SOSA, COBY E Primary Care Unavailable GHOLAM, SHARAN M Referring Unavailable SOSA, COBY E Primary Care Unavailable GHOLAM, SHARAN M Referring Unavailable SOSA, COBY E Primary Care Unavailable GHOLAM, SHARAN M Referring Unavailable SOSA, COBY E Primary Care Unavailable YUNG MONTESINOS B Admitting Unavailable GHOLAM, SHARAN M Referring Unavailable SOSA, COBY E Primary Care Unavailable OLIVIA CASTANEDA Attending Unavailable GHOLAM, SHARAN [place] Attending Unavailable SOSA, COBY E Primary Care Unavailable GHOLAM, SHARAN M Attending Unavailable SOSA, COBY E Primary Care Unavailable CIERRA DEMARCO Attending Unavailable SOSA, COBY E Primary Care Unavailable MD Coby Sosa E Primary Care Provider MD Sharan Ayoub Attending Provider [phone] Gholam, Sharan Admitting Unavailable Gholam, Sharan Attending Unavailable Sosa, Coby E Primary Care Unavailable Gholam, Sharan Admitting Unavailable Gholam, Sharan Attending Unavailable Sosa, Coby E Primary Care Unavailable Gholam, Sharan Admitting Unavailable Sosa, Coby E Primary Care Unavailable Gholam, Sharan Attending Unavailable Gholam, Sharan Admitting Unavailable Gholam, Sharan Attending Unavailable Sosa, Coby E Primary Care Unavailable Gholam, Sharan Attending Unavailable Gholam, Sharan Admitting Unavailable Sosa, Coby E Primary Care Unavailable Gholam, Sharan Admitting Unavailable Sosa, Coby E Primary Care Unavailable Gholam, Sharan Attending Unavailable Gholam, Sharan Admitting Unavailable Sosa, Coby E Primary Care Unavailable Gholam, Sharan Attending Unavailable Gholam, Sharan Admitting Unavailable Gholam, Sharan Attending Unavailable Sosa, Coby E Primary Care Unavailable Gholam, Sharan Admitting Unavailable Gholam, Sharan Attending Unavailable Sosa, Coby E Primary Care Unavailable Gholam, Sharan Admitting Unavailable Gholam, Sharan Attending Unavailable Sosa, Coby E Primary Care Unavailable Gholam, Sharan Admitting Unavailable Gholam, Sharan Attending Unavailable Sosa, Coby E Primary Care Unavailable Gholam, Sharan Admitting Unavailable Gholam, Sharan Attending Unavailable Sosa, Coby E Primary Care Unavailable Gholam, Sharan Admitting Unavailable Gholam, Sharan Attending Unavailable Sosa, Coby E Primary Care Unavailable Gholam, Sharan Admitting Unavailable Gholam, Sharan Attending Unavailable Sosa, Coby E Primary Care Unavailable Gholam, Sharan Admitting Unavailable Gholam, Sharan Attending Unavailable Sosa, Coby E Primary Care Unavailable Gholam, Sharan Admitting Unavailable Gholam, Sharan Attending Unavailable Sosa, Coby E Primary Care Unavailable Gholam, Sharan Admitting Unavailable Gholam, Sharan Attending Unavailable Sosa, Coby E Primary Care Unavailable Gholam, Sharan Attending Unavailable Gholam, Sharan Admitting Unavailable Sosa, Coby E Primary Care Unavailable Unavailable Unavailable Unavailable Allergies Allergy Classification Reported Allergen(s) Allergy Type Date of Onset Reaction(s) Facility Clavulanate (2 sources) Clavulanate Drug Allergy 4 [facility] Contrast Media (2 sources) Contrast media Substance Allergy 4 Swelling of Lip/Tongue/Thro at, anaphylaxis [facility] Penicillins (antibiotic) (2 sources) Amoxicillin Drug Allergy 4 [facility] (20 sources) Contrast media; Translations: [red dye] Allergy to substance 7 anaphylaxis, Angioedema, Swelling [facility] (3 sources) Amoxicillin / Clavulanate Drug Allergy 6 Unknown [facility] Other (12 sources) Amoxicillin; Translations: [amoxicillin] Drug Allergy 4 [facility] (12 sources) Clavulanate; Translations: [clavulanic acid] Drug Allergy 4 [facility] Medications Current Medications Medication Drug Class(es) Dates Sig (Normalized) Sig (Original) acetaminophen 325 mg oral tablet (2 sources) Start: 01-23-2024 take 1 tablet by mouth every eight hours as needed 650 mg, oral, Every 8 hours PRN, pain mild (1-3), first line, pain moderate (4-6), first line, Starting on Mon01/23/24 at 1208, If ordered PRN for pain, nurse is permitted to administer this medication for higher pain scores based on patient preference? Yes Start: 01-19-2024 End: 01-19-2024 take 650 mg by mouth once as needed for pain 650 mg, oral, Once, On Mon01/19/24 at 1830, For 1 dose, If ordered PRN for pain, nurse is permitted to administer this medication for higher pain scores based on patient preference? Yes amLODIPine 5 mg oral tablet (20 sources) Dihydropyridine Calcium Channel Yung Start: 01-31-2018 End: 01-09-2025 take 5 mg by mouth once daily in the morning Amlodipine Active 5 MG PO Every morning November 04, 2020 1:00am azithromycin 250 mg oral tablet (1 source) Macrolide Antimicrobial Start: 12-22-2022 Azithromycin 250 MG as directed Orally 2 tabs po today, then 1 tab daily x 4 more days for 5 Nov, Active cefdinir 300 mg oral capsule (2 sources) Cephalosporin Antibacterial Start: 10-30-2023 Cefdinir 300 MG as directed Orally bid for 7 days Oct, Active ciprofloxacin 3 mg/ml ophthalmic solution (1 source) Quinolone Antimicrobial Start: 05-10-2023 Ciprofloxacin HCl 0.3 % 1 application into the lower eyelid of affected eye Ophthalmic tid for 5 day(s) May, Active Contour Next Test - (5 sources) Start: 12-02-2020 Contour Next Test - as directed In Vitro 5 times a day for 30 days Nov, Active 0.4 ml enoxaparin sodium 100 mg/ml prefilled syringe (1 source) Low Molecular Weight Heparin Start: 01-19-2024 inject 40 mg by subcutaneous injection once daily 40 mg, subcutaneous, Daily, First dose on Mon01/19/24 at 0900 glucagon (rdna) 1 mg injection (7 sources) Antihypoglycemic Agent Start: 01-18-2024 1 mg, intramuscular, Every 15 min PRN, low blood sugar - see comments, For blood glucose less than or equal to 70 mg/dL and no IV access, Starting on Sherry 01/18/24 at 2048, Give until blood glucose is 100 mg/dL or greater. If patient DOES NOT HAVE secure IV access & patient is unconscious, NPO or is unable to eat or drink. Gvoke HypoPen 2- Pack 1 MG/0.2ML as directed Subcutaneous prn severe hypoglycemia may repeat x1 Active 50 ml glucose 500 mg/ml prefilled syringe (2 sources) Start: 01-18-2024 12.5 g, intravenous, Every 15 min PRN, For blood glucose less than or equal to 70 mg/dL, Starting on Mon01/18/24 at 2048, May repeat until blood glucose level reaches 100 mg/dL or greater. Push 2 - 3 mL/minute if patient has secure IV access. ibuprofen 200 mg oral tablet (5 sources) Nonsteroidal Anti-inflammatory Drug take 1 tablet by mouth every twenty-four hours Advil 200 MG 1 tablet with food or milk Orally Once a day Active insulin isophane, human 100 unt/ml injectable suspension (17 sources) Start: 01-25-2024 inject 25 [IU] by subcutaneous injection every twenty-four hours 25 Units, subcutaneous, Every 24 hours, First dose (after last modification) on Mon01/25/24 at 0900 Start: 01-24-2024 insulin NPH, I sophane, (HumuLIN N,NovoLIN N) 100 unit/mL (3 mL) injection Indications: Type 1 diabetes mellitus with hyperglycemia (Multi) Inject 20 Units under the skin once daily in the morning. 15 mL 01/24/2024 Active Start: 01-24-2024 End: 01-24-2024 insulin NPH, Isophane, (Humu GEOFF N,NovoLIN N) 100 unit/mL injection Indications: Type 1 diabetes mellitus with hyperglycemia (Multi) Inject 25 Units under the skin once daily in the morning. Please take with your morning prednisone dose 7.5 mL 01/24/2024 01/24/2024 Discontinued Start: 01-24-2024 End: 01-24-2024 insulin NPH, Isophane, (Humu GEOFF N,NovoLIN N) 100 unit/mL injection Indications: Type 1 diabetes mellitus with hyperglycemia (Multi) Inject 20 Units under the skin once daily in the morning. Please take with your morning prednisone dose 6 mL 01/24/2024 01/24/2024 Discontinued Start: 01-24-2024 End: 01-24-2024 inject 15 [IU] by subcutaneous injection every twenty-four hours 15 Units, subcutaneous, Every 24 hours, First dose on Mon01/24/24 at 0900 Start: 01-23-2024 inject 10 [IU] by pool bcutaneous injection every twenty-four hours 10 Units, subcutaneous, Every 24 hours, First dose (after last modification) on Mon01/23/24 at 2000 Start: 01-21-2024 10 Units, subc utaneous, Once, On Mon01/22/24 at 2000, For 1 dose, Please give 30 minutes prior to steroid dose Start: 01-21-2024 inject 15 [IU] by pool bcutaneous injection once daily in the morning 15 Units, subcutaneous, Every morning, First dose on Mon01/22/24 at 0830, For 1 dose Start: 01-20-2024 inject 10 [IU] by pool bcutaneous injection once 10 Units, subcutaneous, Once, On Mon01/22/24 at 1430, For 1 dose Start: 01-19-2024 25 Units, subc utaneous, Once, On Mon01/19/24 at 2000, For 1 dose, Give 30 minutes before patients second dose of methylprednisolone Start: 01-19-2024 inject 15 [IU] by pool bcutaneous injection once 15 Units, subcutaneous, Once, On Mon01/23/24 at 1300, For 1 dose insulin lispro 100 unt/ml injectable solution (20 sources) Insulin Analog Start: 01-19-2024 0-10 Units, pool bcutaneous, 3 times daily with meals, First dose on Mon01/19/24 at 1700, Do not hold when patient is not eating, continue order as scheduled for hyperglycemia management. Insulin Lispro Corrective Scale #2 Hypoglycemia protocol Call LIP unit(s) if Blood Glucose is between 0 - 70 mg/dL 0 unit(s) if Blood glucose is between 71-150 2 unit(s) if Blood glucose is between 151-200 4 unit(s) if Blood glucose is between 201-250 6 unit(s) if Blood glucose is between 251-300 8 unit(s) if Blood glucose is between 301-350 10 unit(s) if Blood glucose is between 351-400 Notify provider unit(s) if Blood Glucose is greater than 400 mg/dL Start: 01-18-2024 3 mL, pump - s ubcutaneous, As needed, Refill for patient own pump, Starting on Mon01/18/24 at 2109, Whole vial - REFILL for patient own insulin pump Start: 05-24-2022 Insulin Lispro 100 UNIT/ML Injection Solution INJECT 50 UNITS PER PUMP DIRECTED ONCE DAILY Quantity: 20 Refills: 0 Ordered: 24-May-2022 DO Start : 24-May-2022 Complete Start: 11-04-2020 Insulin Lispro Active 1 UNIT [id number] Daily November 04, 2020 1:00am Start: 10-10-2018 End: 11-04-2020 Insulin Lispro Discontinued SOLUTION November 04, 2020 1:00am November 04, 2020 8:52am Start: 06-22-2016 inject 4 [IU] by sub cutaneous injection once before mealtime, then inject 25 [IU] by subcutaneous injection once daily HumaLOG KwikPen 100 UNIT/ML Subcutaneous Solution Pen-injector INJECT 4 UNIT Before meals + per sliding scale ( 1unit for every 50>150: may inject up to 25 units per day) Quantity: 1 Refills: 0 Harmeet Cochran MD Start : 22-Jun-2016 Active 3 ML Pen (5 Pens) inject 50 [IU] by pool bcutaneous injection once daily HumaLOG 100 UNIT/ML via insulin pump 50 units/day Subcutaneous daily Active INSULIN PUMP- PATIENT SUPPLIED (1 source) Start: 01-18-2024 End: 02-15-2024 pump - subcutaneous, Continuous Pump, First dose on Mon01/18/24 at 2200, For 28 days, Insulin Pump 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: [employer], Using as Automated Delivery System: Yes, Insulin Type: lispro (Humalog), Basal Rates: Enter Start Times and Rate in Units/Hr: 9:34 PM / 2, Insulin to Carb Ratio: Enter Start Times and Grams of carbs required for every 1 unit of insulin: 9:33 PM / 12, Insulin Sensitivity Factor: Enter Start times and Sensitivity Factor in mg/dL: 9:33 PM / 50, Targets: Enter Start Time and Target Levels: 9:33 PM / 110-120 lidocaine 0.04 mg/mg medicated patch (1 source) Antiarrhythmic, Amide Local Anesthetic Start: 01-23-2024 apply 1 dose transdermal route once daily 1 patch, transdermal, Administer over 12 Hours, Daily, First dose on Mon01/23/24 at 0900, Apply to shoulder. Patch will remain on for 12 hours, then removed for [address] patch directly over any surgical incisions or wounds. MagOx 400 400 (241.3 Mg) MG (5 sources) take 1 tablet by mouth twice daily at mealtime MagOx 400 400 (241.3 Mg) MG 1 tablet with food Orally BID Active multivit-min/conor gamaliel fumarate (MULTI VITAMIN ORAL) (8 sources) take 1 tablet by mouth once daily multivit-min/ferrou s fumarate (MULTI VITAMIN ORAL) Take 1 tablet by mouth once daily. Active take 1 tablet by mouth once shakila y multivit-min/ferrous fumarate (MULTI VITAMIN ORAL) Take 1 tablet by mouth once daily. 0 Active mycophenolate mofetil 250 mg oral capsule (20 sources) Start: 07-31-2023 End: 08-03-2023 take 1 capsule by mouth every twelve hours 250 mg, oral, Every 12 hours, First dose on Mon01/18/24 at 2100 Start: 11-04-2020 take 250 mg by mouth twice daily Mycophenolate Mofetil Active 250 MG PO Twice daily November 04, 2020 1:00am Start: 08-28-2017 take [address] [facility] every twelve hours Mycophenolate Mofetil 250 MG Oral Capsule TAKE 1 CAPSULE BY MOUTH EVERY 12 HOURS Quantity: 60 Refills: 11 Ordered: 21-Jul-2022 Sharan Ayoub MD Start : 28-Aug-2017 Active Start: 08-28-2017 take 1 capsule by [facility] every twelve hours Mycophenolate Mofetil 250 MG Oral Capsule TAKE 1 CAPSULE Every twelve hours Quantity: 60 Refills: 11 Ordered: 03-Sep-2020 Sharan Ayoub MD Start : 28-Aug-2017 Active Start: 08-28-2017 take 2 capsules by m outh twice daily Mycophenolate Mofetil 250 MG Oral Capsule TAKE 2 CAPSULES BY MOUTH TWICE DAILY Quantity: 120 Refills: 3 Sharan Ayoub MD Start : 28-Aug-2017 Active take 2 capsules by m outh every twenty-four hours Mycophenolate Mofetil 250 MG 2 capsules Orally Once a day Active 2 ml ondansetron 2 mg/ml injection (1 source) Serotonin-3 Receptor Antagonist Start: 01-19-2024 take 4 mg intravenously every four hours as needed 4 mg, intravenous, Every 4 hours PRN, nausea/vomiting, first line, Starting on Mon01/19/24 at 0804, When administering via IV Push, administer over 3-5 minutes. oxyCODONE hydrochloride 5 mg oral tablet (5 sources) Opioid Agonist Start: 01-24-2024 take 0.5 tablet by mouth every eight hours for pain oxyCODONE (Roxicodone) 5 mg immediate release tablet Indications: Acute rejection of liver transplant (Multi) Take 0.5 tablets (2.5 mg) by mouth every 8 hours if needed for severe pain (7 - 10) for up to 10 doses. 5 tablet 01/24/2024 Active Start: 01-23-2024 take 1 tablet by betsy th every eight hours as needed 2.5 mg, oral, Every 8 hours PRN, pain severe (7-10), first line, Starting on Mon01/23/24 at 1209, If ordered PRN for pain, nurse is permitted to administer this medication for higher pain scores based on patient preference? Yes Start: 01-21-2024 End: 01-21-2024 take 2.5 mg by mouth once as needed for pain 2.5 mg, oral, Once, On Mon01/21/24 at 2130, For 1 dose, If ordered PRN for pain, nurse is permitted to administer this medication for higher pain scores based on patient preference? Yes Start: 01-19-2024 End: 01-19-2024 take 5 mg by mouth once as needed for pain 5 mg, oral, Once, On Mon01/19/24 at 2115, For 1 dose, If ordered PRN for pain, nurse is permitted to administer this medication for higher pain scores based on patient preference? Yes pantoprazole 40 mg delayed release oral tablet (3 sources) Proton Pump Inhibitor Start: 01-19-2024 End: 02-24-2024 take 1 tablet by mouth once daily before mealtime pantoprazole (ProtoNix) 40 mg EC tablet Indications: Acute rejection of liver transplant (Multi) Take 1 tablet (40 mg) by mouth once daily in the morning. Take before meals. Do not crush, chew, or split. 30 tablet 01/25/2024 02/24/2024 Active polyethylene glycol 3350 99103 mg powder for oral solution (3 sources) Osmotic Laxative Start: 01-18-2024 End: 02-23-2024 polyethylene glycol (Glycolax, Miralax) 17 gram packet Indications: Acute rejection of liver transplant (Multi) Take 17 g by mouth once daily as needed (Constipation). 30 packet 01/24/2024 02/23/2024 Active predniSONE 10 mg oral tablet (20 sources) Start: 04-09-2024 Prednisone Act crescencio 25 MG PO As Directed April 09, 2024 12:00am see taper instructions Start: 01-24-2024 End: 02-23-2024 take 6 tablets by mouth once daily predniSONE (Deltasone) 10 mg tablet Indications: Acute rejection of liver transplant (Multi) Take 6 tablets (60 mg) by mouth once daily. 180 tablet 01/24/2024 02/23/2024 Active Start: 01-23-2024 take 60 mg by mouth once daily 60 mg, oral, Daily, First dose on Mon01/23/24 at 0900 Start: 11-04-2020 End: 04-09-2024 take 2 mg by mouth once daily in the morning Prednisone Discontinued 2 MG PO Every morning November 04, 2020 1:00am April 09, 2024 3:41pm Start: 07-25-2019 End: 01-24-2024 take 1 tablet by mouth once daily predniSONE 1 MG Oral Tablet Take 1 tablet daily Quantity: 30 Refills: 11 Ordered: 24-May-2023 Sharan Ayoub MD Start : 25-Jul-2019 Active Start: 07-25-2019 take [address] [facility] once daily predniSONE 1 MG Oral Tablet TAKE 2 TABLETS BY MOUTH DAILY Quantity: 60 Refills: 11 Ordered: 21-Mar-2022 Sharan Ayoub MD Start : 25-Jul-2019 Active Start: 06-09-2016 take 1 tablet by betsy once daily predniSONE 5 MG Oral Tablet Take 1 tablet daily Quantity: 30 Refills: 6 Sharan Ayoub MD Start : 09-Jun-2016 Active tacrolimus 1 mg oral capsule (20 sources) Calcineurin Inhibitor Immunosuppressant Start: 01-19-2024 End: 02-23-2024 take 1 capsule by mouth twice daily tacrolimus (Prograf) 1 mg capsule Indications: Acute rejection of liver transplant (Multi) Take 1 capsule (1 mg) by mouth 2 times a day. 60 capsule 01/24/2024 02/23/2024 Active Start: 01-18-2024 End: 01-19-2024 take 0.5 mg by mouth every twelve hours 0.5 mg, oral, Every 12 hours scheduled (0630,1830), First dose on Sherry 01/18/24 at 2100 Start: 12-07-2023 End: 01-24-2024 take 0.5 mg by mouth twice daily 0.5 mg, oral, User sp ecified (2 times per day), First dose (after last modification) on Mon01/19/24 at 1330 Start: 08-03-2023 take 1 capsule by mo uth twice daily tacrolimus (Prograf) 1 mg capsule Indications: Liver replaced by transplant (CMS/HCC) Take 1 capsule (1 mg) by mouth 2 times a day. 180 capsule 3 08/03/2023 Active Start: 02-14-2017 take 1 mg by mouth twice daily Tacrolimus Active 1 MG PO Twice daily November 04, 2020 1:00am Start: 02-14-2017 End: 08-03-2023 take 1 capsule by mouth once daily in the morning, then take 2 capsules by mouth once daily in the evening Tacrolimus 1 MG Oral Capsule take 1 capsule by mouth every morning and 2 capsules every evening. Quantity: 270 Refills: 3 Ordered: 24-May-2023 Sharan Ayoub MD Start : 14-Feb-2017 Active DOSE UPDATE Start: 02-14-2017 take 2 capsules by m outh once daily in the morning, then take 1 capsule by mouth once daily in the evening Tacrolimus 1 MG Oral Capsule Take 2 capsule Every Morning and 1 capsule in the Every Evening. Quantity: 360 Refills: 3 Sharan Ayoub MD Start : 14-Feb-2017 Active 24 hr venlafaxine 75 mg extended release oral capsule (7 sources) Serotonin and Norepinephrine Reuptake Inhibitor Start: 05-23-2024 take 1 capsule by mouth once daily Venlafaxine Active 0 .ROUTE .COMPLEX May 23, 2024 3:18pm TAKE 1 CAPSULE BY MOUTH DAILY Start: 05-21-2024 End: 05-23-2024 take 1 capsule by mouth once daily Venlafaxine Discontinued 0 .ROUTE .COMPLEX May 21, 2024 8:33am May 23, 2024 3:20pm TAKE 1 CAPSULE BY MOUTH DAILY Start: 04-11-2024 End: 05-21-2024 take 1 capsule by mouth once daily Venlafaxine (Effexor Xr) 37.5 mg capsule,extended release 24hr Discontinued 37.5 MG PO Daily April 11, 2024 12:00am May 21, 2024 8:36am Completed/Discontinued Medications Medication Drug Class(es) Dates Sig (Normalized) Sig (Original) aspirin 81 mg delayed release oral tablet (20 sources) Platelet Aggregation Inhibitor, Nonsteroidal Anti-inflammatory Drug Start: 11-04-2020 End: 04-09-2024 take 81 mg by mouth once daily at bedtime Aspirin Discontinued 81 MG PO Daily at bedtime November 04, 2020 1:00am April 09, 2024 9:03am cephalexin 500 mg oral capsule (20 sources) Cephalosporin Antibacterial Start: 11-11-2020 End: 04-09-2024 take 500 mg by mouth every twelve hours Cephalexin Discontinued 500 MG PO Q12H November 11, 2020 1:00am April 09, 2024 9:01am ergocalciferol 92688 unt oral capsule (2 sources) Provitamin D2 Compound Start: 04-11-2017 take 1 capsule by mouth every week Vitamin D (Ergocalciferol) 98980 UNIT Oral Capsule TAKE 1 CAPSULE WEEKLY. Quantity: 12 Refills: 3 Hiren Valdez Start : 11-Apr-2017 Active 1 ml fentaNYL 0.05 mg/ml injection (5 sources) Opioid Agonist Start: 01-23-2024 End: 01-23-2024 intravenous, Once PRN Procedure, Starting on Mon01/23/24 at 0845, For 1 dose, Intraprocedure Start: 01-17-2024 End: 01-17-2024 intravenous, Once PRN Proced ure, Starting on Mon01/17/24 at 0950, For 1 dose, Intraprocedure Start: 12-19-2023 End: 12-19-2023 fentaNYL PF (Sublimaze) inje ction isopropyl alcohol 0.7 ml/ml medicated pad (3 sources) Start: 10-25-2016 Alcohol Pads 70 % Pad Use 4 a day as directed Quantity: 2 Refills: 11 Hiren Valdez MD Start : 25-Oct-2016 Active 100 Pad Box ketorolac tromethamine 10 mg oral tablet (20 sources) Nonsteroidal Anti-inflammatory Drug, Cyclooxygenase Inhibitor Start: 11-11-2020 End: 04-09-2024 take 10 mg by mouth every six hours Ketorolac Discontinued 10 MG PO Q6H 20 5 November 11, 2020 1:00am April 09, 2024 9:03am magnesium oxide 400 mg oral tablet (20 sources) Start: 01-22-2024 End: 01-22-2024 take 400 mg by mouth once 400 mg, oral, Once, On Mon01/22/24 at 0900, For 1 dose Start: 01-31-2023 take 1 tablet by betsy th twice daily Magnesium Oxide -Mg Supplement 400 (240 Mg) MG Oral Tablet TAKE 1 TABLET BY MOUTH TWICE DAILY Quantity: 60 Refills: 5 Ordered: 31-Jan-2023 Sharan Ayoub MD Start : 31-Jan-2023 Active Start: 07-19-2016 End: 08-03-2023 take 400 mg by mouth twice daily Magnesium Oxide Activ e 400 MG PO Twice daily November 04, 2020 1:00am Start: 07-19-2016 take 1 tablet by betsy th twice daily MAGnesium-Oxide 400 (241.3 Mg) MG TABS TAKE 1 TABLET BY MOUTH TWICE DAILY Quantity: 60 Refills: 11 Ordered: 26-Jan-2021 Sharan Ayoub MD Start : 19-Jul-2016 Active Start: 07-19-2016 take 1 tablet by betsy twice daily MAGnesium-Oxide 400 (241.3 Mg) MG Oral Tablet TAKE 1 TABLET BY MOUTH TWICE DAILY Quantity: 60 Refills: 11 Ordered: 26-Jan-2021 Sharan Ayoub MD Start : 19-Jul-2016 Active take 1 capsule by mo ut twice daily Magnesium Oxide 400 MG Oral Capsule Take 1 capsule twice daily Quantity: 60 Refills: 6 Sharan Ayoub MD Active 50 ml magnesium sulfate 40 mg/ml injection (3 sources) Start: 01-23-2024 End: 01-23-2024 2 g, intravenous, at 25 mL/h r, Administer over 2 Hours, Once, On Mon01/23/24 at 1330, For 1 dose Start: 01-21-2024 End: 01-21-2024 2 g, intravenous, at 25 mL/h r, Administer over 2 Hours, Once, On Mon01/21/24 at 1415, For 1 dose Start: 01-18-2024 End: 01-19-2024 4 g, intravenous, at 25 mL/h r, Administer over 4 Hours, Once, On Mon01/18/24 at 2230, For 1 dose methylPREDNISolone 125 mg injection (1 source) Corticosteroid Start: 01-21-2024 End: 01-23-2024 take 125 mg intravenously once daily 125 mg, intravenous, User specified (Once per day on Monday), First dose on Mon01/21/24 at 2100 methylPREDNISolone sodium succinate (SOLU-Medrol) 250 mg in dextrose 5 % in water (D5W) 100 mL IV (2 sources) Start: 01-20-2024 End: 01-20-2024 250 mg, intravenous, at 104 mL/hr, Administer over 60 Minutes, Once, On Mon01/20/24 at 2100, For 1 dose Start: 01-19-2024 End: 01-19-2024 250 mg, intravenous, at 104 mL/hr, Administer over 60 Minutes, Once, On Mon01/19/24 at 2100, For 1 dose methylPREDNISolone sodium succinate (SOLU-Medrol) 500 mg in dextrose 5 % in water (D5W) 100 mL IV (1 source) Start: 01-18-2024 End: 01-18-2024 500 mg, intravenous, at 108 mL/hr, Administer over 60 Minutes, Once, On Sherry 01/18/24 at 2200, For 1 dose 5 ml midazolam 1 mg/ml injection (5 sources) Benzodiazepine Start: 01-23-2024 End: 01-23-2024 intravenous, Once PRN Procedure, Starting on Mon01/23/24 at 0845, For 1 dose, Intraprocedure Start: 01-17-2024 End: 01-17-2024 intravenous, Once PRN Proced ure, Starting on Mon01/17/24 at 0950, For 1 dose, Intraprocedure Start: 12-19-2023 End: 12-19-2023 midazolam (Versed) injection Multi-Vitamins Oral Tablet (2 sources) Start: 08-30-2017 take 1 tablet by mouth once daily Multi-Vitamins Oral Tablet TAKE 1 TABLET DAILY. Quantity: 30 Refills: 11 Start : 30-Aug-2017 Active 30 Tablet Bottle Start: 08-30-2017 take 1 tablet by betsy th once daily Multi-Vitamins Oral Tablet TAKE 1 TABLET DAILY. Quantity: 30 Refills: 11 DO Start : 30-Aug-2017 Active 30 Tablet Bottle Multi-Vitamins TABS (20 sources) Start: 08-30-2017 Multi-Vitamins TABS TAKE 1 TABLET DAILY. Quantity: 30 Refills: 11 Ordered: 30-Aug-2017 DO Start : 30-Aug-2017 Active Start: 08-30-2017 Multi-Vitamins TABS TAKE 1 TABLET DAILY. Quantity: 30 Refills: 11 Start : 30-Aug-2017 Active 30 Tablet Bottle omeprazole 20 mg delayed release oral capsule (2 sources) Proton Pump Inhibitor Start: 08-30-2017 take 1 capsule by mouth twice daily 30 minutes before mealtime Omeprazole 20 MG Oral Capsule Delayed Release TAKE 1 CAPSULE Twice daily 30 minutes before a meal Quantity: 60 Refills: 3 Sharan Ayoub MD Start : 30-Aug-2017 Active OneTouch Ultra 2 w/Device Kit (2 sources) Start: 10-25-2016 OneTouch Ultra 2 w/Device Kit USE DIRECTED. Quantity: 1 Refills: 0 Harmeet Cochran MD Start : 25-Oct-2016 Active 1 Kit Box OneTouch Ultra 2 w/Device Kit (1 source) Start: 10-25-2016 OneTouch Ultra 2 w/Device Kit USE DIRECTED. Quantity: 1 Refills: 0 Harmeet Cochran MD Start : 25-Oct-2016 Active 1 Kit Box OneTouch Ultra Control In Vitro Solution (2 sources) Start: 10-25-2016 OneTouch Ultra Control In Vitro Solution USE DIRECTED. Quantity: 1 Refills: 3 Harmeet Cochran MD Start : 25-Oct-2016 Active OneTouch Ultra Control In Vitro Solution (1 source) Start: 10-25-2016 OneTouch Ultra Control In Vitro Solution USE DIRECTED. Quantity: 1 Refills: 3 Harmeet Cochran MD Start : 25-Oct-2016 Active microencapsulated potassium chloride 20 meq extended release oral tablet (1 source) Start: 01-18-2024 End: 01-18-2024 40 mEq, oral, Once, On Sherry 01/18/24 at 2230, For 1 dose, Best given with food and plenty of water to minimize gastric irritation. Do not crush or chew. Start: 01-18-2024 End: 01-18-2024 40 mEq, oral, Once, On Sherry at 2230, For 1 dose, Best given with food and plenty of water to minimize gastric irritation. Do not crush or chew. Vitamin D 75409 UNIT (5 sources) take 1 capsule by mo uth every week as needed Vitamin D 68743 UNIT 1 capsule Orally Once a week Not-Taking/PRN take 1 capsule by mouth every we ek Vitamin D 81090 UNIT 1 capsule Orally Once a week Not-Taking Problems Active Problems Problem Classification Problem Date Documented Da te Episodic/Chronic Abdominal pain (20 sources) Abdominal pain; Translations: [Acute abdominal pain] Onset: 12-24-2021 Resolved: 04-25-2018 Episodic Anxiety disorders (2 sources) Anxiety disorder, unspecified; Translations: [Anxiety disorder] Onset: 02-03-2023 02-20-2023 Chronic Bacterial infection; unspecified site (1 source) Other specified bacterial agents as the cause of diseases classified elsewhere Episodic Chronic kidney disease (20 sources) Chronic kidney disease stage 3; Translations: [Chronic kidney disease, Stage III (moderate)] Onset: 07-18-2023 07-18-2023 Chronic Chronic kidney disease (1 source) Chronic kidney disease; Translations: [Chronic kidney disease, stage 3 unspecified] Onset: 12-04-2023 Conditions associated with dizziness or vertigo (3 sources) Dizziness and giddiness; Translations: [DIZZINESS AND GIDDINESS] Onset: 10-26-2022 Episodic Diabetes mellitus with complications (3 sources) Hyperglycemia due to type 1 diabetes mellitus; Translations: [Type 1 diabetes mellitus with hyperglycemia] Onset: 07-18-2023 01-24-2024 Chronic Diabetes mellitus without complication (20 sources) Type 1 diabetes mellitus; Translations: [Diabetes mellitus without mention of complication, type I [juvenile type], not stated as uncontrolled] Onset: 05-05-2016 Chronic Diabetes mellitus without complication (5 sources) Insulin pump present; Translations: [Presence of insulin pump (external) (internal)] Episodic Disorders of lipid metabolism (5 sources) Hyperlipidemia; Translations: [Hyperlipidemia, unspecified] Chronic Esophageal disorders (2 sources) Gastro-esophageal reflux disease without esophagitis; Translations: [Gastro-esophageal reflux disease without esophagitis] Onset: 04-18-2024 Chronic Essential hypertension (1 source) Essential (primary) hypertension; Translations: [ESSENTIAL PRIMARY HYPERTENSION] Onset: 10-28-2022 Chronic Hepatitis (20 sources) Autoimmune hepatitis; Translations: [Autoimmune hepatitis] Chronic Immunity disorders (20 sources) Immunosuppression; Translations: [Unspecified disorder of immune mechanism] Onset: 02-03-2023 07-18-2023 Chronic Malaise and fatigue (1 source) Weakness; Translations: [WEAKNESS] Onset: 10-28-2022 Episodic Mood disorders (7 sources) Depressive disorder; Translations: [Depression] 04-25-2024 Chronic Other aftercare (1 source) 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; Translations: [SHELTER CURRENT USE OF ASPIRIN] Onset: 10-28-2022 Episodic Other aftercare (1 source) residential (current) use of insulin; Translations: [SUSTAINABLE COMMUNITIES DESIGNER CURRENT USE OF INSULIN] Onset: 10-28-2022 Episodic Other aftercare (1 source) 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 therapy; Translations: [OTH SHELTER CURRENT DRUG THERAPY] Onset: 10-28-2022 Episodic Other circulatory disease (20 sources) H/O: hypertension; Translations: [Personal history of other diseases of circulatory system] Episodic Other gastrointestinal disorders (4 sources) Irritable bowel syndrome with diarrhea; Translations: [Irritable bowel syndrome with diarrhea] Chronic Other gastrointestinal disorders (1 source) Irritable bowel syndrome with diarrhea Chronic Other gastrointestinal disorders (3 sources) Irritable bowel syndrome; Translations: [Mixed irritable bowel syndrome] Chronic Other gastrointestinal disorders (1 source) Mixed irritable bowel syndrome Chronic Other liver diseases (2 sources) H/O: liver recipient; Translations: [Liver replaced by transplant] Chronic Other liver diseases (17 sources) Liver transplant status; Translations: [Liver replaced by transplant] Onset: 10-28-2022 Chronic Other liver diseases (5 sources) Transplanted liver present; Translations: [Liver transplant status] Chronic Other nutritional; endocrine; and metabolic disorders (20 sources) History of diabetes mellitus type 1; Translations: [Personal history of other endocrine, metabolic, and immunity disorders] Episodic Other upper respiratory infections (3 sources) Acute maxillary sinusitis, unspecified; Translations: [Acute upper respiratory infection, unspecified] Episodic Residual codes; unclassified (2 sources) Localized edema; Translations: [Localized edema] Onset: 04-18-2024 Episodic Spondylosis; intervertebral disc disorders; other back problems (1 source) Low back pain; Translations: [Other low back pain] 05-29-2024 Episodic Thyroid disorders (12 sources) Thyrotoxicosis, unspecified without thyrotoxic crisis or storm; Translations: [Hyperthyroidism] Onset: 05-05-2016 07-18-2023 Chronic Past or Other Problems Problem Classification Problem Date Documented Da te Episodic/Chronic Calculus of urinary tract (20 sources) Calcium renal calculus ; Translations: [Calculus of kidney] Onset: 10-28-2022 07-18-2023 Episodic Complication of device; implant or graft (20 sources) Disorder related to transplantation; Translations: [Liver transplant rejection] Onset: 08-16-2017 07-18-2023 Episodic Noninfectious gastroenteritis (1 source) Noninfective gastroenteritis and colitis, unspecified; Translations: [NONINFECTIVE GE AND COLITIS UNS] Onset: 12-28-2021 Episodic Other gastrointestinal disorders (20 sources) Drug-induced constipation; Translations: [Other constipation] Resolved: 04-25-2018 Episodic Other nutritional; endocrine; and metabolic disorders (2 sources) H/O: diabetes mellitus; Translations: [History of type 1 diabetes mellitus] Episodic Other nutritional; endocrine; and metabolic disorders (20 sources) Personal history of other endocrine, nutritional and metabolic disease; Translations: [H/O: hyperthyroidism] Resolved: 04-25-2018 Episodic Other nutritional; endocrine; and metabolic disorders (20 sources) H/O: thyroid disorder; Translations: [Personal history of other endocrine, metabolic, and immunity disorders] Resolved: 04-25-2018 Episodic Other nutritional; endocrine; and metabolic disorders (20 sources) History of nutritional deficiency; Translations: [Personal history of nutritional deficiency] Resolved: 04-25-2018 Episodic Other screening for suspected conditions (not mental disorders or infectious disease) (20 sources) Liver function tests abnormal; Translations: [Other specified abnormal findings of blood chemistry] Onset: 02-03-2023 Episodic Other skin disorders (20 sources) H/O: skin disorder; Translations: [Personal history of diseases of skin and subcutaneous tissue] Resolved: 04-25-2018 Episodic Residual codes; unclassified (2 sources) H/O: Disorder; Translations: [History of acne] Episodic Viral infection (20 sources) Cytomegaloviral disease, unspecified; Translations: [Cytomegalovirus viremia] Onset: 07-18-2023 07-18-2023 Episodic NEGATED: Highlighted row has not occurred!Residual codes; unclassified (20 sources) Disease Episodic Results Test Name Value Interpretation Reference Range Facility Alanine aminotransferase [En zymatic activity/volume] in Serum or PlasmaOrdered By: Sharan Ayoub on 07-01-2024 ALT [Catalytic activity/Vol] 95 U/L High 7-52 [facility] Comment on above: Performed By: #### T ACROLIMUS., CMP, CBC #### [address] Albumin [Mass/volume] in Ser um or Plasma by Bromocresol green (BCG) dye binding methoOrdered By: Sharan Ayoub on 07-01-2024 Albumin BCG dye [Mass/Vol] 3.1 g/dL Low 3.5-5.7 [facility] Alkaline phosphatase [Enzyma tic activity/volume] in Serum or PlasmaOrdered By: Sharan Ayoub on 07-01-2024 ALP [Catalytic activity/Vol] 220 U/L High 34-104 [facility] Comment on above: Result Comment: PERF ORMED BY: [place] [address] PATHOLOGIST VICTORIAN LITERATURE PROFESSOR MISAEL FOX M.D. Performed By: #### T ACROLIMUS., CMP, CBC #### [address] Aspartate aminotransferase [ Enzymatic activity/volume] in Serum or PlasmaOrdered By: Sharan Ayoub on 07-01-2024 AST [Catalytic activity/Vol] 88 U/L High 13-39 [facility] Comment on above: Performed By: #### T ACROLIMUS., CMP, CBC #### [address] Automated basophil %Ordered By: Sharan Ayoub on 07-01-2024 Basophils/100 WBC (Bld) 0.6 % Normal . [facility] Comment on above: Performed By: #### T ACROLIMUS., CMP, CBC #### [address] Automated basophil countOrde red By: Sharan Ayoub on 07-01-2024 Basophils (Bld) [#/Vol] 0.1 10*3/uL Normal 0.0-0.2 [facility] Comment on above: Result Comment: PERF ORMED BY: [place] [address] PATHOLOGIST VICTORIAN LITERATURE PROFESSOR MISAEL FOX M.D. Performed By: #### T ACROLIMUS., CMP, CBC #### [address] Automated blood monocyte cou ntOrdered By: Sharan Ayoub on 07-01-2024 Monocytes (Bld) [#/Vol] 0.8 10*3/uL Normal 0.0-0.8 [facility] Comment on above: Performed By: #### T ACROLIMUS., CMP, CBC #### [address] Automated eosinophil %Ordere d By: Sharan Ayoub on 07-01-2024 Eosinophils/100 WBC (Bld) 0.9 % Normal . [facility] Comment on above: Performed By: #### T ACROLIMUS., CMP, CBC #### [address] Automated eosinophil countOr dered By: Sharan Ayoub on 07-01-2024 Eosinophils (Bld) [#/Vol] 0.1 10*3/uL Normal 0.0-0.45 [facility] Comment on above: Performed By: #### T ACROLIMUS., CMP, CBC #### [address] Automated monocyte %Ordered By: Sharan Ayoub on 07-01-2024 Monocytes/100 WBC (Bld) 7.4 % Normal . [facility] Comment on above: Performed By: #### T ACROLIMUS., CMP, CBC #### [address] Automated neutrophil %Ordere d By: Sharan Ayoub on 07-01-2024 Neutrophils/100 WBC (Bld) 66.5 % Normal . [facility] Comment on above: Performed By: #### T ACROLIMUS., CMP, CBC #### [address] [place] [address] [place] Bilirubin.total [Mass/volume ] in Serum or PlasmaOrdered By: Sharan Ayoub on 07-01-2024 Bilirubin [Mass/Vol] 3.4 mg/dL High 0.3-1.0 [facility] Comment on above: Samples from patient s who have taken Naproxen have shown spurious elevation in Total Bilirubin levels. A metabolite of Naproxen, O-desmethylnaproxen, has been shown to interfere with the Jendrassik-Grof method for measuring Total Bilirubin. Result Comment: Samp les from patients who have taken Naproxen have shown spurious elevation in Total Bilirubin levels. A metabolite of Naproxen, O-desmethylnaproxen, has been shown to interfere with the Jendrassik-Grof method for measuring Total Bilirubin. Performed By: #### T ACROLIMUS., CMP, CBC #### [place] [address] [place] Calcium [Mass/volume] in Ser um or PlasmaOrdered By: Sharan Ayoub on 07-01-2024 Calcium [Mass/Vol] 8.6 mg/dL Normal 8.6-10.3 [facility] Comment on above: Performed By: #### T ACROLIMUS., CMP, CBC #### [address] Carbon dioxide, total [Moles /volume] in Serum or PlasmaOrdered By: Sharan Ayoub on 07-01-2024 CO2 [Moles/Vol] 32.6 mmol/L High 21.0-31.0 [facility] Comment on above: Performed By: #### T ACROLIMUS., CMP, CBC #### [facility] [address] [place] [address] [place] Chloride [Moles/volume] in S kasi or PlasmaOrdered By: Sharan Ayoub on 07-01-2024 Chloride [Moles/Vol] 101 mmol/L Normal 98-107 [facility] Comment on above: Performed By: #### T ACROLIMUS., CMP, CBC #### [address] Complete Blood Count Auto Di ffon 07-01-2024 Mean Corpuscular HGB Conc 33.6 g/dL Normal 32.5-35.6 [facility] Comment on above: Performed By: #### T ACROLIMUS., CMP, CBC #### [facility] [address] [place] [address] NRBC% 0.1 /100{WBC} Normal 0-0.5 [facility] Comment on above: Performed By: #### T ACROLIMUS., CMP, CBC #### [facility] [address] [place] [address] Comprehensive Metabolic Pane sarah 07-01-2024 Albumin [Mass/Vol] 3.1 g/dL Low 3.5-5.7 [facility] Comment on above: Performed By: #### T ACROLIMUS., CMP, CBC #### [address] GFR/1.73 sq M.predicted MDRD (S/P/Bld) [Vol rate/Area] mL/min/{1.73_m2} Normal [facility] Comment on above: Performed By: #### T ACROLIMUS., CMP, CBC #### [address] Creatinine [Mass/volume] in Serum or PlasmaOrdered By: Sharan Ayoub on 07-01-2024 Creatinine [Mass/Vol] 0.98 mg/dL Normal 0.70-1.30 [facility] Comment on above: Performed By: #### T ACROLIMUS., CMP, CBC #### [address] Erythrocyte distribution wid th [Ratio] by Automated countOrdered By: Sharan Ayoub on 07-01-2024 Erythrocyte distribution width (RBC) [Ratio] 15.9 % High 12.0-14.8 [facility] Comment on above: Performed By: #### T ACROLIMUS., CMP, CBC #### [facility] [address] [place] [address] Erythrocytes [#/volume] in B lood by Automated countOrdered By: Sharan Ayoub on 07-01-2024 RBC (Bld) [#/Vol] 4.44 10*6/uL Normal 3.90-5.60 [facility] Comment on above: Performed By: #### T ACROLIMUS., CMP, CBC #### [facility] [address] [place] [address] [place] Glucose [Mass/volume] in Ser um or PlasmaOrdered By: Sharan Ayoub on 07-01-2024 Glucose [Mass/Vol] 228 mg/dL High 70-100 [facility] Comment on above: ADA recommended refe rence rangeRandom Glucose Reference Range is dependent on time and content of last meal. Glucose of more than 200 mg/dL in a nonstressed, ambulatory subject supports the diagnosis of Diabetes Mellitus. Result Comment: [place] om Glucose Reference Range is dependent on time and content of last meal. Glucose of more than 200 mg/dL in a nonstressed, ambulatory subject supports the diagnosis of Diabetes Mellitus. ADA recommended reference range Performed By: #### T ACROLIMUS., CMP, CBC #### [facility] [address] [place] [address] [place] Hematocrit [Volume Fraction] of Blood by Automated countOrdered By: Sharan Ayoub on 07-01-2024 Hematocrit (Bld) [Volume fraction] 41.5 % Normal 38.8-50.0 [facility] Comment on above: Performed By: #### T ACROLIMUS., CMP, CBC #### [facility] [address] [place] [address] [place] Hemoglobin [Mass/volume] in BloodOrdered By: Sharan Ayoub on 07-01-2024 Hemoglobin (Bld) [Mass/Vol] 14.0 g/dL Normal 13.0-17.0 [facility] Comment on above: Performed By: #### T ACROLIMUS., CMP, CBC #### [facility] [address] [place] [address] [place] Leukocytes [#/volume] correc roderick for nucleated erythrocytes in Blood by Automated counOrdered By: Sharan Ayoub on 07-01-2024 WBC corrected for nucl RBC Auto (Bld) [#/Vol] 10.5 10*3/uL 4.1-10.5 [facility] Leukocytes [#/volume] in Blo od by Automated countOrdered By: Sharan Ayoub on 07-01-2024 WBC (Bld) [#/Vol] 10.5 10*3/uL Normal 4.1-10.5 [facility] Comment on above: Performed By: #### T ACROLIMUS., CMP, CBC #### [facility] [address] Lymphocytes [#/volume] in Bl ood by Automated countOrdered By: Sharan Ayoub on 07-01-2024 Lymphocytes (Bld) [#/Vol] 2.6 10*3/uL Normal 1.00-4.8 [facility] Comment on above: Performed By: #### T ACROLIMUS., CMP, CBC #### [facility] [address] Lymphocytes/100 leukocytes i n Blood by Automated countOrdered By: Sharan Ayoub on 07-01-2024 Lymphocytes/100 WBC (Bld) 24.6 % Normal . [facility] Comment on above: Performed By: #### T ACROLIMUS., CMP, CBC #### [facility] [address] MCH [Entitic mass] by Automa roderick countOrdered By: Sharan Ayoub on 07-01-2024 MCH (RBC) [Entitic mass] 31.4 pg Normal 27.5-35.2 [facility] Comment on above: Performed By: #### T ACROLIMUS., CMP, CBC #### [facility] [address] MCHC Auto (RBC) [Mass/Vol]Or dered By: Sharan Ayoub on 07-01-2024 MCHC (RBC) [Mass/Vol] 33.6 g/dL 32.5-35.6 [facility] MCV [Entitic volume] by Auto mated countOrdered By: Sharan Ayoub on 07-01-2024 MCV (RBC) [Entitic vol] 93.6 fL Normal 83.5-101 [facility] Comment on above: Performed By: #### T ACROLIMUS., CMP, CBC #### [facility] [address] Neutrophils [#/volume] in Bl ood by Automated countOrdered By: Sharan Ayoub on 07-01-2024 Neutrophils (Bld) [#/Vol] 7.0 10*3/uL Normal 1.8-7.7 [facility] Comment on above: Performed By: #### T ACROLIMUS., CMP, CBC #### [facility] [address] No Panel InformationOrdered By: Sharan Ayoub on 07-01-2024 Estimated GFR (CKD-EPI) > 60.0 mL/Min [facility] Creatinine Clearance (Chem N/A [facility] Nucleated erythrocytes [Pres ence] in Blood by Automated countOrdered By: Sharan Ayoub on 07-01-2024 Nucleated RBC Auto Ql (Bld) 0.1 /100{WBC} 0-0.5 [facility] Platelet mean volume [Entiti c volume] in Blood by Automated countOrdered By: Sharan Ayoub on 07-01-2024 Platelet mean volume (Bld) [Entitic vol] 11.3 fL High 6.6-10.1 [facility] Comment on above: Performed By: #### T ACROLIMUS., CMP, CBC #### [facility] [address] Platelets [#/volume] in Bloo d by Automated countOrdered By: Sharan Ayoub on 07-01-2024 Platelets (Bld) [#/Vol] 158 10*3/uL Normal 150-450 [facility] Comment on above: Performed By: #### T ACROLIMUS., CMP, CBC #### [facility] [address] Potassium [Moles/volume] in Serum or PlasmaOrdered By: Sharan Ayoub on 07-01-2024 Potassium [Moles/Vol] 3.4 mmol/L Low 3.5-5.1 [facility] Comment on above: Performed By: #### T ACROLIMUS., CMP, CBC #### [facility] [address] [place] [address] Protein [Mass/volume] in Ser um or PlasmaOrdered By: Sharan Ayoub on 07-01-2024 Protein [Mass/Vol] 6.0 g/dL Low 6.4-8.9 [facility] Comment on above: Performed By: #### T ACROLIMUS., CMP, CBC #### [address] Serum globulin measurement b y calculation (mass/volume)Ordered By: Sharan Ayoub on 07-01-2024 Globulin (S) [Mass/Vol] 2.9 g/dL Normal [facility] Comment on above: Performed By: #### T ACROLIMUS., CMP, CBC #### [address] Serum or plasma albumin/glob ulin mass ratioOrdered By: Sharan Ayoub on 07-01-2024 Albumin/Globulin [Mass ratio] 1.1 {ratio} [facility] Comment on above: Performed By: #### T ACROLIMUS., CMP, CBC #### [address] Serum or plasma anion gap de terminationOrdered By: Sharan Ayoub on 07-01-2024 Anion gap [Moles/Vol] 9.8 mmol/L Normal 6.0-15.0 [facility] Comment on above: Performed By: #### T ACROLIMUS., CMP, CBC #### [address] Sodium [Moles/volume] in Ser um or PlasmaOrdered By: Sharan Ayoub on 07-01-2024 Sodium [Moles/Vol] 140 mmol/L Normal 136-145 [facility] Comment on above: Performed By: #### T ACROLIMUS., CMP, CBC #### [facility] [address] [place] [address] Tacrolimuson 07-01-2024 Tacrolimus (Bld) [Mass/Vol] 8.5 ng/mL Normal <=15.0 [facility] Comment on above: Order Comment: NOTE: Result was obtained using a chemiluminescent microparticle immunoassay (CMIA) on the Stem Roller Or Crusher Operator i system. Optimal therapeutic ranges for immunosuppressant drugs depend upon an individual patient's current clinical state, type of organ transplant, time post-transplant, co-administration of other immunosuppressants, and other clinical factors. The results of this test should be correlated with additional clinical and laboratory data before changes in treatment regimens are made. Performed By: #### 1 1253-2 #### NORMA Cherry ([id number]) [facility] ([facility]) [id number] [place] [address] Tacrolimus (Transplant) No C hgon 07-01-2024 Tacrolimus (Transplant) No Chg Sent to Ref Lab Normal [facility] Comment on above: Result Comment: PERF ORMED BY: [place] [address] PATHOLOGIST VICTORIAN LITERATURE PROFESSOR MISAEL FOX M.D. Performed By: #### C MP, CBC, TACROLIMUS. #### [facility] [address] [place] [address] [place] Urea nitrogen [Mass/volume] in Serum or PlasmaOrdered By: Sharan Ayoub on 07-01-2024 Urea nitrogen [Mass/Vol] 15 mg/dL Normal 04-25 [facility] Comment on above: Performed By: #### T ACROLIMUS., CMP, CBC #### [facility] [address] [place] [address] [place] Alanine aminotransferase [En zymatic activity/volume] in Serum or PlasmaOrdered By: Sharan Ayoub on 05-13-2024 ALT [Catalytic activity/Vol] 110 U/L High [facility] Comment on above: Performed By: #### T ACROLIMUS., CMP, CBC #### [place] [address] [place] Albumin [Mass/volume] in Ser um or Plasma by Bromocresol green (BCG) dye binding methoOrdered By: Sharan Ayoub on 05-13-2024 Albumin BCG dye [Mass/Vol] 3.0 g/dL Low 3.5-5.7 [facility] Alkaline phosphatase [Enzyma tic activity/volume] in Serum or PlasmaOrdered By: Sharan Ayoub on 05-13-2024 ALP [Catalytic activity/Vol] 269 U/L High 34-104 [facility] Comment on above: Result Comment: PERF ORMED BY: [place] [address] PATHOLOGIST VICTORIAN LITERATURE PROFESSOR MISAEL FOX M.D. Performed By: #### T ACROLIMUS., CMP, CBC #### [facility] [address] [place] [address] Aspartate aminotransferase [ Enzymatic activity/volume] in Serum or PlasmaOrdered By: Sharan Ayoub on 05-13-2024 AST [Catalytic activity/Vol] 118 U/L High 13-39 [facility] Comment on above: Performed By: #### T ACROLIMUS., CMP, CBC #### [facility] [address] [place] [address] Automated basophil %Ordered By: Sharan Ayoub on 05-13-2024 Basophils/100 WBC (Bld) 1.4 % Normal . [facility] Comment on above: Performed By: #### T ACROLIMUS., CMP, CBC #### [address] Automated basophil countOrde red By: Sharan Ayoub on 05-13-2024 Basophils (Bld) [#/Vol] 0.1 10*3/uL Normal 0.0-0.2 [facility] Comment on above: Result Comment: PERF ORMED BY: [place] [address] PATHOLOGIST VICTORIAN LITERATURE PROFESSOR MISAEL FOX M.D. Performed By: #### T ACROLIMUS., CMP, CBC #### [address] Automated blood monocyte cou ntOrdered By: Sharan Ayoub on 05-13-2024 Monocytes (Bld) [#/Vol] 0.7 10*3/uL Normal 0.0-0.8 [facility] Comment on above: Performed By: #### T ACROLIMUS., CMP, CBC #### [address] Automated eosinophil %Ordere d By: Sharan Ayoub on 05-13-2024 Eosinophils/100 WBC (Bld) 1.3 % Normal . [facility] Comment on above: Performed By: #### T ACROLIMUS., CMP, CBC #### [address] Automated eosinophil countOr dered By: Sharan Ayoub on 05-13-2024 Eosinophils (Bld) [#/Vol] 0.1 10*3/uL Normal 0.0-0.45 [facility] Comment on above: Performed By: #### T ACROLIMUS., CMP, CBC #### [address] Automated monocyte %Ordered By: Sharan Ayoub on 05-13-2024 Monocytes/100 WBC (Bld) 7.8 % Normal . [facility] Comment on above: Performed By: #### T ACROLIMUS., CMP, CBC #### [address] Automated neutrophil %Ordere d By: Sharan Ayoub on 05-13-2024 Neutrophils/100 WBC (Bld) 57.4 % Normal . [facility] Comment on above: Performed By: #### T ACROLIMUS., CMP, CBC #### [address] Bilirubin.total [Mass/volume ] in Serum or PlasmaOrdered By: Sharan Ayoub on 05-13-2024 Bilirubin [Mass/Vol] 3.1 mg/dL High 0.3-1.0 [facility] Comment on above: Samples from patient s who have taken Naproxen have shown spurious elevation in Total Bilirubin levels. A metabolite of Naproxen, O-desmethylnaproxen, has been shown to interfere with the Harlan-Uriel method for measuring Total Bilirubin. Result Comment: Samp les from patients who have taken Naproxen have shown spurious elevation in Total Bilirubin levels. A metabolite of Naproxen, O-desmethylnaproxen, has been shown to interfere with the Jendrassik-Grof method for measuring Total Bilirubin. Performed By: #### T ACROLIMUS., CMP, CBC #### [address] Calcium [Mass/volume] in Ser um or PlasmaOrdered By: Sharan Ayoub on 05-13-2024 Calcium [Mass/Vol] 8.7 mg/dL Normal 8.6-10.3 [facility] Comment on above: Performed By: #### T ACROLIMUS., CMP, CBC #### [address] Carbon dioxide, total [Moles /volume] in Serum or PlasmaOrdered By: Sharan Ayoub on 05-13-2024 CO2 [Moles/Vol] 32.8 mmol/L High 21.0-31.0 [facility] Comment on above: Performed By: #### T ACROLIMUS., CMP, CBC #### [address] Chloride [Moles/volume] in S kasi or PlasmaOrdered By: Sharan Ayoub on 05-13-2024 Chloride [Moles/Vol] 101 mmol/L Normal 98-107 [facility] Comment on above: Performed By: #### T ACROLIMUS., CMP, CBC #### [address] Complete Blood Count Auto Di ffon 05-13-2024 Mean Corpuscular HGB Conc 33.9 g/dL Normal 32.5-35.6 [facility] Comment on above: Performed By: #### T ACROLIMUS., CMP, CBC #### [address] NRBC% 0.2 /100{WBC} Normal 0-0.5 [facility] Comment on above: Performed By: #### T ACROLIMUS., CMP, CBC #### [address] Comprehensive Metabolic Pane sarah 08-12-2024 Albumin [Mass/Vol] 3.0 g/dL Low 3.5-5.7 [facility] Comment on above: Performed By: #### T ACROLIMUS., CMP, CBC #### [facility] [address] GFR/1.73 sq M.predicted MDRD (S/P/Bld) [Vol rate/Area] mL/min/{1.73_m2} Normal [facility] Comment on above: Performed By: #### T ACROLIMUS., CMP, CBC #### [facility] [address] Creatinine [Mass/volume] in Serum or PlasmaOrdered By: Sharan Ayoub on 05-13-2024 Creatinine [Mass/Vol] 1.04 mg/dL Normal 0.70-1.30 [facility] Comment on above: Performed By: #### T ACROLIMUS., CMP, CBC #### [facility] [address] Erythrocyte distribution wid th [Ratio] by Automated countOrdered By: Sharan Ayoub on 05-13-2024 Erythrocyte distribution width (RBC) [Ratio] 15.3 % High 12.0-14.8 [facility] Comment on above: Performed By: #### T ACROLIMUS., CMP, CBC #### [facility] [address] Erythrocytes [#/volume] in B lood by Automated countOrdered By: Sharan Ayoub on 05-13-2024 RBC (Bld) [#/Vol] 4.67 10*6/uL Normal 3.90-5.60 [facility] Comment on above: Performed By: #### T ACROLIMUS., CMP, CBC #### [facility] [address] Glucose [Mass/volume] in Ser um or PlasmaOrdered By: Sharan Ayoub on 05-13-2024 Glucose [Mass/Vol] 271 mg/dL High 70-100 [facility] Comment on above: ADA recommended refe rence rangeRandom Glucose Reference Range is dependent on time and content of last meal. Glucose of more than 200 mg/dL in a nonstressed, ambulatory subject supports the diagnosis of Diabetes Mellitus. Result Comment: [place] om Glucose Reference Range is dependent on time and content of last meal. Glucose of more than 200 mg/dL in a nonstressed, ambulatory subject supports the diagnosis of Diabetes Mellitus. ADA recommended reference range Performed By: #### T ACROLIMUS., CMP, CBC #### [facility] [address] Hematocrit [Volume Fraction] of Blood by Automated countOrdered By: Sharan Ayoub on 05-13-2024 Hematocrit (Bld) [Volume fraction] 42.8 % Normal 38.8-50.0 [facility] Comment on above: Performed By: #### T ACROLIMUS., CMP, CBC #### [address] Hemoglobin [Mass/volume] in BloodOrdered By: Sharan Ayoub on 05-13-2024 Hemoglobin (Bld) [Mass/Vol] 14.5 g/dL Normal 13.0-17.0 [facility] Comment on above: Performed By: #### T ACROLIMUS., CMP, CBC #### [facility] [address] [place] [address] [place] Leukocytes [#/volume] correc roderick for nucleated erythrocytes in Blood by Automated counOrdered By: Sharan Ayoub on 05-13-2024 WBC corrected for nucl RBC Auto (Bld) [#/Vol] 9.1 10*3/uL 4.1-10.5 [facility] Leukocytes [#/volume] in Blo od by Automated countOrdered By: Sharan Ayoub on 05-13-2024 WBC (Bld) [#/Vol] 9.1 10*3/uL Normal 4.1-10.5 [facility] Comment on above: Performed By: #### T ACROLIMUS., CMP, CBC #### [facility] [address] [place] [address] [place] Lymphocytes [#/volume] in Bl ood by Automated countOrdered By: Sharan Ayoub on 05-13-2024 Lymphocytes (Bld) [#/Vol] 2.9 10*3/uL Normal 1.00-4.8 [facility] Comment on above: Performed By: #### T ACROLIMUS., CMP, CBC #### [facility] [address] Lymphocytes/100 leukocytes i n Blood by Automated countOrdered By: Sharan Ayoub on 05-13-2024 Lymphocytes/100 WBC (Bld) 32.1 % Normal . [facility] Comment on above: Performed By: #### T ACROLIMUS., CMP, CBC #### [address] MCH [Entitic mass] by Automa roderick countOrdered By: Sharan Ayoub on 05-13-2024 MCH (RBC) [Entitic mass] 31.1 pg Normal 27.5-35.2 [facility] Comment on above: Performed By: #### T ACROLIMUS., CMP, CBC #### [address] MCHC Auto (RBC) [Mass/Vol]Or dered By: Sharan Ayoub on 05-13-2024 MCHC (RBC) [Mass/Vol] 33.9 g/dL 32.5-35.6 [facility] MCV [Entitic volume] by Auto mated countOrdered By: Sharan Ayoub on 05-13-2024 MCV (RBC) [Entitic vol] 91.8 fL Normal 83.5-101 [facility] Comment on above: Performed By: #### T ACROLIMUS., CMP, CBC #### [address] Neutrophils [#/volume] in Bl ood by Automated countOrdered By: Sharan Ayoub on 05-13-2024 Neutrophils (Bld) [#/Vol] 5.2 10*3/uL Normal 1.8-7.7 [facility] Comment on above: Performed By: #### T ACROLIMUS., CMP, CBC #### [address] No Panel InformationOrdered By: Sharan Ayoub on 05-13-2024 Estimated GFR (CKD-EPI) > 60.0 mL/Min [facility] Creatinine Clearance (Chem N/A [facility] Nucleated erythrocytes [Pres ence] in Blood by Automated countOrdered By: Sharan Ayoub on 05-13-2024 Nucleated RBC Auto Ql (Bld) 0.2 /100{WBC} 0-0.5 [facility] Platelet mean volume [Entiti c volume] in Blood by Automated countOrdered By: Sharan Ayoub on 05-13-2024 Platelet mean volume (Bld) [Entitic vol] 10.7 fL High 6.6-10.1 [facility] Comment on above: Performed By: #### T ACROLIMUS., CMP, CBC #### [facility] [address] [place] [address] Platelets [#/volume] in Bloo d by Automated countOrdered By: Sharan Ayoub on 05-13-2024 Platelets (Bld) [#/Vol] 137 10*3/uL Low 150-450 [facility] Comment on above: Performed By: #### T ACROLIMUS., CMP, CBC #### [facility] [address] [place] [address] [place] Potassium [Moles/volume] in Serum or PlasmaOrdered By: Sharan Ayoub on 05-13-2024 Potassium [Moles/Vol] 3.8 mmol/L Normal 3.5-5.1 [facility] Comment on above: Performed By: #### T ACROLIMUS., CMP, CBC #### [facility] [address] [place] [address] [place] Protein [Mass/volume] in Ser um or PlasmaOrdered By: Sharan Ayoub on 05-13-2024 Protein [Mass/Vol] 6.5 g/dL Normal 6.4-8.9 [facility] Comment on above: Performed By: #### T ACROLIMUS., CMP, CBC #### [facility] [address] [place] [address] Serum globulin measurement b y calculation (mass/volume)Ordered By: Sharan Ayoub on 05-13-2024 Globulin (S) [Mass/Vol] 3.5 g/dL Normal [facility] Comment on above: Performed By: #### T ACROLIMUS., CMP, CBC #### [facility] [address] Serum or plasma albumin/glob ulin mass ratioOrdered By: Sharan Ayoub on 05-13-2024 Albumin/Globulin [Mass ratio] 0.9 {ratio} [facility] Comment on above: Performed By: #### T ACROLIMUS., CMP, CBC #### [facility] [address] [place] [address] Serum or plasma anion gap de terminationOrdered By: Sharan Ayoub on 05-13-2024 Anion gap [Moles/Vol] 10.0 mmol/L Normal 6.0-15.0 [facility] Comment on above: Performed By: #### T ACROLIMUS., CMP, CBC #### [facility] [address] [place] [address] Sodium [Moles/volume] in Ser um or PlasmaOrdered By: Sharan Ayoub on 05-13-2024 Sodium [Moles/Vol] 140 mmol/L Normal 136-145 [facility] Comment on above: Performed By: #### T ACROLIMUS., CMP, CBC #### [address] Tacrolimuson 05-13-2024 Tacrolimus (Bld) [Mass/Vol] 8.5 ng/mL Normal <=15.0 [facility] Comment on above: Order Comment: NOTE: Result was obtained using a chemiluminescent microparticle immunoassay (CMIA) on the Stem Roller Or Crusher Operator i system. Optimal therapeutic ranges for immunosuppressant drugs depend upon an individual patient's current clinical state, type of organ transplant, time post-transplant, co-administration of other immunosuppressants, and other clinical factors. The results of this test should be correlated with additional clinical and laboratory data before changes in treatment regimens are made. Performed By: #### 1 1253-2 #### NORMA Cherry ([id number]) [facility] ([facility]) [address] [place] [address] Tacrolimus (Transplant) No C hgon 05-13-2024 Tacrolimus (Transplant) No Chg Sent to Ref Lab Normal [facility] Comment on above: Result Comment: PERF ORMED BY: [place] [address] PATHOLOGIST VICTORIAN LITERATURE PROFESSOR MISAEL FOX M.D. Performed By: #### T ACROLIMUS., CMP, CBC #### [facility] [address] Tacrolimus [Mass/volume] in BloodOrdered By: Sharan Ayoub on 05-13-2024 Tacrolimus (Bld) [Mass/Vol] Sent to ref lab [facility] Urea nitrogen [Mass/volume] in Serum or PlasmaOrdered By: Sharan Ayoub on 05-13-2024 Urea nitrogen [Mass/Vol] 15 mg/dL Normal 7-25 [facility] Comment on above: Performed By: #### T ACROLIMUS., CMP, CBC #### [facility] [address] [place] [address] Basophils Auto (Bld) [#/Vol] on 05-08-2024 Basophils (Bld) [#/Vol] 0.0 10 3/uL 0.0-0.1 [facility] Basophils/100 WBC Auto (Bld) on 05-08-2024 Basophils/100 WBC (Bld) 0.4 % 0.2-2.0 [facility] Eosinophils/100 WBC Auto (Bl d)on 05-08-2024 Eosinophils/100 WBC (Bld) 0.0 % Low 0.9-7.0 [facility] Erythrocyte distribution wid th Auto (RBC) [Ratio]on 05-08-2024 Erythrocyte distribution width (RBC) [Ratio] 13.9 % 11.0-15.0 [facility] Estimated glomerular filtrat ion rate (GFR) non- Americanon 05-08-2024 GFR/1.73 sq M.predicted among non-blacks MDRD (S/P/Bld) [Vol rate/Area] 56 mL/min/{1.73_m2} Low >=60 [facility] Globulin Calc (S) [Mass/Vol] on 05-08-2024 Globulin (S) [Mass/Vol] 3.8 g/dL [facility] Hematocrit Auto (Bld) [Volum e fraction]on 05-08-2024 Hematocrit (Bld) [Volume fraction] 40.1 % Low 42.0-54.0 [facility] Hemoglobin [Mass/volume] in Bloodon 05-08-2024 Hemoglobin (Bld) [Mass/Vol] 13.1 g/dL Low 14.0-18.0 [facility] - Chemistry and C hemistry - challengeon 05-08-2024 Bilirubin Ql (U) Negative NEGATIVE [facility] Glucose (U) [Mass/Vol] mg/dL Abnormal NEGATIVE [facility] Ketones Ql (U) Negative NEGATIVE [facility] pH (U) 6.5 [pH] 5.0-9.0 [facility] Specific gravity (U) [Rel density] 1.010 1.005-1.025 [facility] Urobilinogen Qn (U) 0.2 {Jacinta'U}/dL 0.2-1.0 [facility] Albumin [Mass/Vol] 2.3 g/dL Low 3.4-5.0 [facility] ALP [Catalytic activity/Vol] 260 U/L High 46-116 [facility] ALT [Catalytic activity/Vol] 116 U/L High 16-63 [facility] AST [Catalytic activity/Vol] 77 U/L High 15-37 [facility] Bilirubin [Mass/Vol] 3.4 mg/dL High 0.2-1.0 [facility] Calcium [Mass/Vol] 8.5 mg/dL 8.5-10.1 [facility] Chloride [Moles/Vol] 99 mmol/L 98-107 [facility] CO2 [Moles/Vol] 29.8 mmol/L 21.0-32.0 [facility] Creatinine [Mass/Vol] 1.47 mg/dL High 0.70-1.30 [facility] GFR/1.73 sq M.predicted MDRD (S/P/Bld) [Vol rate/Area] mL/min/{1.73_m2} >=60 [facility] Glucose [Mass/Vol] 516 mg/dL High 74-106 [facility] Comment on above: RESULTS CALLED TO TESS FERGUSON RN @BY Patti Williamson at 2151 Lactate [Moles/Vol] 1.9 mmol/L 0.4-2.0 [facility] Lipase [Catalytic activity/Vol] 35.0 U/L 16.0-77.0 [facility] Potassium [Moles/Vol] 4.6 mmol/L 3.5-5.1 [facility] Protein [Mass/Vol] 6.1 g/dL Low 6.4-8.2 [facility] Sodium [Moles/Vol] 133 mmol/L Low 136-145 [facility] Urea nitrogen [Mass/Vol] 19.0 mg/dL High 7.0-18.0 [facility] Urea nitrogen/Creatinine [Mass ratio] 12.9 mg/mg [facility] - Hematology and Cell countson 05-08-2024 Immature granulocytes/100 WBC (Bld) 1.0 % High 0.0-0.5 [facility] - Specimen inform ationon 05-08-2024 Appearance (U) CLEAR CLEAR [facility] Color (U) YELLOW YELLOW [facility] - Urinalysison Leukocyte esterase Test strip Ql (U) Negative NEGATIVE [facility] Mucus Ql (Urine sed) NONE SEEN NONE SEEN [facility] Nitrite Ql (U) Negative NEGATIVE [facility] Protein Ql (U) Negative NEG/TRACE [facility] Leukocytes [#/volume] correc roderick for nucleated erythrocytes in Blood by Automated counon 05-08-2024 WBC corrected for nucl RBC Auto (Bld) [#/Vol] 6.7 10 3/uL 4.0-11.0 [facility] Lymphocytes Auto (Bld) [#/Vo l]on 05-08-2024 Lymphocytes (Bld) [#/Vol] 0.8 10 3/uL Low 1.2-3.8 [facility] Lymphocytes/100 WBC Auto (Bl d)on 05-08-2024 Lymphocytes/100 WBC (Bld) 11.2 % Low 20.5-60.0 [facility] MCH Auto (RBC) [Entitic mass ]on 05-08-2024 MCH (RBC) [Entitic mass] 31.1 pg 25.9-34.0 [facility] MCHC Auto (RBC) [Mass/Vol]on 05-08-2024 MCHC (RBC) [Mass/Vol] 32.7 g/dL 29.9-35.2 [facility] MCV Auto (RBC) [Entitic vol] on 05-08-2024 MCV (RBC) [Entitic vol] 95.2 fL High 80.0-94.0 [facility] Monocytes Auto (Bld) [#/Vol] on 05-08-2024 Monocytes (Bld) [#/Vol] 0.2 10 3/uL Low 0.3-0.8 [facility] Monocytes/100 WBC Auto (Bld) on 05-08-2024 Monocytes/100 WBC (Bld) 3.0 % 1.7-12.0 [facility] Neutrophils Auto (Bld) [#/Vo l]on 05-08-2024 Neutrophils (Bld) [#/Vol] 5.7 10 3/uL 1.4-6.5 [facility] Neutrophils/100 WBC Auto (Bl d)on 05-08-2024 Neutrophils/100 WBC (Bld) 84.4 % High 43.0-75.0 [facility] No Panel Informationon 05-08 Urine Bacteria NONE SEEN #/HPF NONE SEEN [facility] Urine Culture Reflexed NO [facility] Urine Occult Blood MODERATE Abnormal NEGATIVE [facility] Urine Other Casts NONE SEEN #/LPF NONE [facility]EN [facility] Urine Other Crystals None Seen #/HPF None Seen [facility] Urine RBC 5-10 #/HPF Abnormal 0-2 [facility] Urine Squamous Epithelial Cells NONE SEEN #/LPF NONE/RARE [facility] Urine WBC 0-2 #/HPF Abnormal NONE SEEN [facility] Acetone Level Negative NEGATIVE [facility] Eosinophils # (Auto) 0.0 10 3/uL 0.0-0.7 [facility] Immature Granulocyte # (Auto) 0.07 10 3/uL High 0.00-0.03 [facility] Platelet mean volume Auto (B ld) [Entitic vol]on 05-08-2024 Platelet mean volume (Bld) [Entitic vol] 12.2 fL 9.5-13.5 [facility] Platelets Auto (Bld) [#/Vol] on 05-08-2024 Platelets (Bld) [#/Vol] 120 10 3/uL Low 150-450 [facility] RBC Auto (Bld) [#/Vol]on RBC (Bld) [#/Vol] 4.21 10 6/uL Low 4.70-6.10 [facility] Serum or plasma albumin/glob ulin mass ratioon 05-08-2024 Albumin/Globulin [Mass ratio] 0.6 {ratio} [facility] Serum or plasma anion gap de terminationon 05-08-2024 Anion gap [Moles/Vol] 8.8 mmol/L [facility] Alanine aminotransferase [En zymatic activity/volume] in Serum or PlasmaOrdered By: Sharan Ayoub on 04-09-2024 ALT [Catalytic activity/Vol] 95 U/L High 7-52 [facility] Comment on above: Performed By: #### T ACROLIMUS., CMP, CBC #### [address] Albumin [Mass/volume] in Ser um or Plasma by Bromocresol green (BCG) dye binding methoOrdered By: Sharan Ayoub on 04-09-2024 Albumin BCG dye [Mass/Vol] 2.8 g/dL Low 3.5-5.7 [facility] Alkaline phosphatase [Enzyma tic activity/volume] in Serum or PlasmaOrdered By: Sharan Ayoub on 04-09-2024 ALP [Catalytic activity/Vol] 167 U/L High 34-104 [facility] Comment on above: Result Comment: PERF ORMED BY: [place] [address] PATHOLOGIST [employer]CTORIAN LITERATURE PROFESSOR MISAEL FOX M.D. Performed By: #### T ACROLIMUS., CMP, CBC #### [address] Aspartate aminotransferase [ Enzymatic activity/volume] in Serum or PlasmaOrdered By: Sharan Ayoub on 04-09-2024 AST [Catalytic activity/Vol] 70 U/L High 13-39 [facility] Comment on above: Performed By: #### T ACROLIMUS., CMP, CBC #### [address] Automated basophil %Ordered By: Sharan Ayoub on 04-09-2024 Basophils/100 WBC (Bld) 1.0 % Normal . [facility] Comment on above: Performed By: #### T ACROLIMUS., CMP, CBC #### [address] Automated basophil countOrde red By: Sharan Ayoub on 04-09-2024 Basophils (Bld) [#/Vol] 0.1 10*3/uL Normal 0.0-0.2 [facility] Comment on above: Result Comment: PERF ORMED BY: [place] [address] PATHOLOGIST VICTORIAN LITERATURE PROFESSOR MISAEL FOX M.D. Performed By: #### T ACROLIMUS., CMP, CBC #### [address] Automated blood monocyte cou ntOrdered By: Sharan Ayoub on 04-09-2024 Monocytes (Bld) [#/Vol] 0.6 10*3/uL Normal 0.0-0.8 [facility] Comment on above: Performed By: #### T ACROLIMUS., CMP, CBC #### [address] Automated eosinophil %Ordere d By: Sharan Ayoub on 04-09-2024 Eosinophils/100 WBC (Bld) 0.9 % Normal . [facility] Comment on above: Performed By: #### T ACROLIMUS., CMP, CBC #### [address] [address] [place] Automated eosinophil countOr dered By: Sharan Ayoub on 04-09-2024 Eosinophils (Bld) [#/Vol] 0.1 10*3/uL Normal 0.0-0.45 [facility] Comment on above: Performed By: #### T ACROLIMUS., CMP, CBC #### [address] Automated monocyte %Ordered By: Sharan Ayoub on 04-09-2024 Monocytes/100 WBC (Bld) 6.5 % Normal . [facility] Comment on above: Performed By: #### T ACROLIMUS., CMP, CBC #### [facility] [address] [place] [address] Automated neutrophil %Ordere d By: Sharan Ayoub on 04-09-2024 Neutrophils/100 WBC (Bld) 64.2 % Normal . [facility] Comment on above: Performed By: #### T ACROLIMUS., CMP, CBC #### [address] Bilirubin.total [Mass/volume ] in Serum or PlasmaOrdered By: Sharan Ayoub on 04-09-2024 Bilirubin [Mass/Vol] 3.1 mg/dL High 0.3-1.0 [facility] Comment on above: Samples from patient s who have taken Naproxen have shown spurious elevation in Total Bilirubin levels. A metabolite of Naproxen, O-desmethylnaproxen, has been shown to interfere with the Jendrassik-Grof method for measuring Total Bilirubin. Result Comment: Samp les from patients who have taken Naproxen have shown spurious elevation in Total Bilirubin levels. A metabolite of Naproxen, O-desmethylnaproxen, has been shown to interfere with the Jendrassik-Grof method for measuring Total Bilirubin. Performed By: #### T ACROLIMUS., CMP, CBC #### [address] Calcium [Mass/volume] in Ser um or PlasmaOrdered By: Sharan Ayoub on 04-09-2024 Calcium [Mass/Vol] 8.5 mg/dL Low 8.6-10.3 [facility] Comment on above: Performed By: #### T ACROLIMUS., CMP, CBC #### [facility] [address] Carbon dioxide, total [Moles /volume] in Serum or PlasmaOrdered By: Sharan Ayoub on 04-09-2024 CO2 [Moles/Vol] 32.5 mmol/L High 21.0-31.0 [facility] Comment on above: Performed By: #### T ACROLIMUS., CMP, CBC #### [facility] [address] [place] [address] Chloride [Moles/volume] in S kasi or PlasmaOrdered By: Sharan Ayoub on 04-09-2024 Chloride [Moles/Vol] 105 mmol/L Normal 98-107 [facility] Comment on above: Performed By: #### T ACROLIMUS., CMP, CBC #### [facility] [address] [place] [address] Complete Blood Count Auto Di ffon 04-09-2024 Mean Corpuscular HGB Conc 33.7 g/dL Normal 32.5-35.6 [facility] Comment on above: Performed By: #### T ACROLIMUS., CMP, CBC #### [facility] [address] [place] [address] NRBC% 0.2 /100{WBC} Normal 0-0.5 [facility] Comment on above: Performed By: #### T ACROLIMUS., CMP, CBC #### [facility] [address] Comprehensive Metabolic Pane sarah 04-09-2024 Albumin [Mass/Vol] 2.8 g/dL Low 3.5-5.7 [facility] Comment on above: Performed By: #### T ACROLIMUS., CMP, CBC #### [facility] [address] [place] [address] GFR/1.73 sq M.predicted MDRD (S/P/Bld) [Vol rate/Area] mL/min/{1.73_m2} Normal [facility] Comment on above: Performed By: #### T ACROLIMUS., CMP, CBC #### [facility] [address] Creatinine [Mass/volume] in Serum or PlasmaOrdered By: Sharan Ayoub on 04-09-2024 Creatinine [Mass/Vol] 1.06 mg/dL Normal 0.70-1.30 [facility] Comment on above: Performed By: #### T ACROLIMUS., CMP, CBC #### [facility] [address] Erythrocyte distribution wid th [Ratio] by Automated countOrdered By: Sharan Ayoub on 04-09-2024 Erythrocyte distribution width (RBC) [Ratio] 14.5 % Normal 12.0-14.8 [facility] Comment on above: Performed By: #### T ACROLIMUS., CMP, CBC #### [place] [address] [place] Erythrocytes [#/volume] in B lood by Automated countOrdered By: Sharan Ayoub on 04-09-2024 RBC (Bld) [#/Vol] 4.31 10*6/uL Normal 3.90-5.60 [facility] Comment on above: Performed By: #### T ACROLIMUS., CMP, CBC #### [address] Glucose [Mass/volume] in Ser um or PlasmaOrdered By: Sharan Ayoub on 04-09-2024 Glucose [Mass/Vol] 189 mg/dL High 70-100 [facility] Comment on above: ADA recommended refe rence rangeRandom Glucose Reference Range is dependent on time and content of last meal. Glucose of more than 200 mg/dL in a nonstressed, ambulatory subject supports the diagnosis of Diabetes Mellitus. Result Comment: [place] Glucose Reference Range is dependent on time and content of last meal. Glucose of more than 200 mg/dL in a nonstressed, ambulatory subject supports the diagnosis of Diabetes Mellitus. ADA recommended reference range Performed By: #### T ACROLIMUS., CMP, CBC #### [facility] [address] Hematocrit [Volume Fraction] of Blood by Automated countOrdered By: Sharan Ayoub on 04-09-2024 Hematocrit (Bld) [Volume fraction] 40.1 % Normal 38.8-50.0 [facility] Comment on above: Performed By: #### T ACROLIMUS., CMP, CBC #### [facility] [address] [place] [address] Hemoglobin [Mass/volume] in BloodOrdered By: Sharan Ayoub on 04-09-2024 Hemoglobin (Bld) [Mass/Vol] 13.5 g/dL Normal 13.0-17.0 [facility] Comment on above: Performed By: #### T ACROLIMUS., CMP, CBC #### [facility] [address] [place] [address] Leukocytes [#/volume] correc roderick for nucleated erythrocytes in Blood by Automated counOrdered By: Sharan Ayoub on 04-09-2024 WBC corrected for nucl RBC Auto (Bld) [#/Vol] 9.9 10*3/uL 4.1-10.5 [facility] Leukocytes [#/volume] in Blo od by Automated countOrdered By: Sharan Ayoub on 04-09-2024 WBC (Bld) [#/Vol] 9.9 10*3/uL Normal 4.1-10.5 [facility] Comment on above: Performed By: #### T ACROLIMUS., CMP, CBC #### [facility] [address] [place] [address] [place] Lymphocytes [#/volume] in Bl ood by Automated countOrdered By: Sharan Ayoub on 04-09-2024 Lymphocytes (Bld) [#/Vol] 2.7 10*3/uL Normal 1.00-4.8 [facility] Comment on above: Performed By: #### T ACROLIMUS., CMP, CBC #### [facility] [address] [place] [address] [place] Lymphocytes/100 leukocytes i n Blood by Automated countOrdered By: Sharan Ayoub on 04-09-2024 Lymphocytes/100 WBC (Bld) 27.4 % Normal . [facility] Comment on above: Performed By: #### T ACROLIMUS., CMP, CBC #### [facility] [address] MCH [Entitic mass] by Automa roderick countOrdered By: Sharan Ayoub on 04-09-2024 MCH (RBC) [Entitic mass] 31.4 pg Normal 27.5-35.2 [facility] Comment on above: Performed By: #### T ACROLIMUS., CMP, CBC #### [facility] [address] [place] [address] MCHC Auto (RBC) [Mass/Vol]Or dered By: Sharan Ayoub on 04-09-2024 MCHC (RBC) [Mass/Vol] 33.7 g/dL 32.5-35.6 [facility] MCV [Entitic volume] by Auto mated countOrdered By: Sharan Ayoub on 04-09-2024 MCV (RBC) [Entitic vol] 93.1 fL Normal 83.5-101 [facility] Comment on above: Performed By: #### T ACROLIMUS., CMP, CBC #### [facility] [address] [place] [address] Neutrophils [#/volume] in Bl ood by Automated countOrdered By: Sharan Ayoub on 04-09-2024 Neutrophils (Bld) [#/Vol] 6.4 10*3/uL Normal 1.8-7.7 [facility] Comment on above: Performed By: #### T ACROLIMUS., CMP, CBC #### [facility] [address] [place] [address] No Panel InformationOrdered By: Sharan Ayoub on 04-09-2024 Estimated GFR (CKD-EPI) > 60.0 mL/Min [facility] Creatinine Clearance (Chem N/A [facility] Nucleated erythrocytes [Pres ence] in Blood by Automated countOrdered By: Sharan Ayoub on 04-09-2024 Nucleated RBC Auto Ql (Bld) 0.2 /100{WBC} 0-0.5 [facility] Platelet mean volume [Entiti c volume] in Blood by Automated countOrdered By: Sharan Ayoub on 04-09-2024 Platelet mean volume (Bld) [Entitic vol] 10.2 fL High 6.6-10.1 [facility] Comment on above: Performed By: #### T ACROLIMUS., CMP, CBC #### [facility] [address] Platelets [#/volume] in Bloo d by Automated countOrdered By: Sharan Ayoub on 04-09-2024 Platelets (Bld) [#/Vol] 146 10*3/uL Low 150-450 [facility] Comment on above: Performed By: #### T ACROLIMUS., CMP, CBC #### [address] Potassium [Moles/volume] in Serum or PlasmaOrdered By: Sharan Ayoub on 04-09-2024 Potassium [Moles/Vol] 3.8 mmol/L Normal 3.5-5.1 [facility] Comment on above: Performed By: #### T ACROLIMUS., CMP, CBC #### [facility] [address] [place] [address] Protein [Mass/volume] in Ser um or PlasmaOrdered By: Sharan Ayoub on 04-09-2024 Protein [Mass/Vol] 5.8 g/dL Low 6.4-8.9 [facility] Comment on above: Performed By: #### T ACROLIMUS., CMP, CBC #### [facility] [address] Serum globulin measurement b y calculation (mass/volume)Ordered By: Sharan Ayoub on 04-09-2024 Globulin (S) [Mass/Vol] 3.0 g/dL [facility] Comment on above: Performed By: #### T ACROLIMUS., CMP, CBC #### [facility] [address] [place] [address] Serum or plasma albumin/glob ulin mass ratioOrdered By: Sharan Ayoub on 04-09-2024 Albumin/Globulin [Mass ratio] 0.9 {ratio} Normal [facility] Comment on above: Performed By: #### T ACROLIMUS., CMP, CBC #### [address] Serum or plasma anion gap de terminationOrdered By: Sharan Ayoub on 04-09-2024 Anion gap [Moles/Vol] 8.3 mmol/L Normal 6.0-15.0 [facility] Comment on above: Performed By: #### T ACROLIMUS., CMP, CBC #### [address] Sodium [Moles/volume] in Ser um or PlasmaOrdered By: Sharan Ayoub on 04-09-2024 Sodium [Moles/Vol] 142 mmol/L Normal 136-145 [facility] Comment on above: Performed By: #### T ACROLIMUS., CMP, CBC #### [address] Tacrolimuson 04-09-2024 Tacrolimus (Bld) [Mass/Vol] 8.9 ng/mL Normal <=15.0 [facility] Comment on above: Order Comment: NOTE: Result was obtained using a chemiluminescent microparticle immunoassay (CMIA) on the Stem Roller Or Crusher Operator i system. Optimal therapeutic ranges for immunosuppressant drugs depend upon an individual patient's current clinical state, type of organ transplant, time post-transplant, co-administration of other immunosuppressants, and other clinical factors. The results of this test should be correlated with additional clinical and laboratory data before changes in treatment regimens are made. Performed By: #### 1 1253-2 #### NORMA Cherry ([id number]) [facility] ([facility]) [address] [place] [address] Tacrolimus (Transplant) No C hgon 04-09-2024 Tacrolimus (Transplant) No Chg Sent to Ref Lab Normal [facility] Comment on above: Result Comment: PERF ORMED BY: [place] [address] PATHOLOGIST VICTORIAN LITERATURE PROFESSOR MISAEL FOX M.D. Performed By: #### T ACROLIMUS., CMP, CBC #### [facility] [address] Tacrolimus [Mass/volume] in BloodOrdered By: Sharan Ayoub on 04-09-2024 Tacrolimus (Bld) [Mass/Vol] Sent to ref lab [facility] Urea nitrogen [Mass/volume] in Serum or PlasmaOrdered By: Sharan Ayoub on 04-09-2024 Urea nitrogen [Mass/Vol] 21 mg/dL Normal 7-25 [facility] Comment on above: Performed By: #### T ACROLIMUS., CMP, CBC #### [facility] [address] [place] [address] Alanine aminotransferase [En zymatic activity/volume] in Serum or PlasmaOrdered By: Sharan Ayoub on 2024 ALT [Catalytic activity/Vol] 98 U/L High 7-52 [facility] Comment on above: Performed By: #### C MP, CBC, TACROLIMUS. #### [facility] [address] [place] [address] [place] Albumin [Mass/volume] in Ser um or Plasma by Bromocresol green (BCG) dye binding methoOrdered By: Sharan Ayoub on 2024 Albumin BCG dye [Mass/Vol] 3.2 g/dL Low 3.5-5.7 [facility] Alkaline phosphatase [Enzyma tic activity/volume] in Serum or PlasmaOrdered By: Sharan Ayoub on 2024 ALP [Catalytic activity/Vol] 154 U/L High 34-104 [facility] Comment on above: Result Comment: PERF ORMED BY: [place] [address] PATHOLOGIST VICTORIAN LITERATURE PROFESSOR MISAEL FOX M.D. Performed By: #### C MP, CBC, TACROLIMUS. #### [facility] [address] [place] [address] [place] Aspartate aminotransferase [ Enzymatic activity/volume] in Serum or PlasmaOrdered By: Sharan Ayoub on 2024 AST [Catalytic activity/Vol] 52 U/L High 13-39 [facility] Comment on above: Performed By: #### C MP, CBC, TACROLIMUS. #### [address] Automated basophil %Ordered By: Sharan Ayoub on 2024 Basophils/100 WBC (Bld) 0.6 % Normal . [facility] Comment on above: Performed By: #### C MP, CBC, TACROLIMUS. #### [address] Automated basophil countOrde red By: Sharan Ayoub on 2024 Basophils (Bld) [#/Vol] 0.1 10*3/uL Normal 0.0-0.2 [facility] Comment on above: Result Comment: PERF ORMED BY: [place] [address] PATHOLOGIST VICTORIAN LITERATURE PROFESSOR MISAEL FOX M.D. Performed By: #### C MP, CBC, TACROLIMUS. #### [address] Automated blood monocyte cou ntOrdered By: Sharan Ayoub on 2024 Monocytes (Bld) [#/Vol] 0.8 10*3/uL Normal 0.0-0.8 [facility] Comment on above: Performed By: #### C MP, CBC, TACROLIMUS. #### [address] Automated eosinophil %Ordere d By: Sharan Ayoub on 2024 Eosinophils/100 WBC (Bld) 0.7 % Normal . [facility] Comment on above: Performed By: #### C MP, CBC, TACROLIMUS. #### [address] Automated eosinophil countOr dered By: Sharan Ayoub on 2024 Eosinophils (Bld) [#/Vol] 0.1 10*3/uL Normal 0.0-0.45 [facility] Comment on above: Performed By: #### C MP, CBC, TACROLIMUS. #### [address] Automated monocyte %Ordered By: Sharan Ayoub on 2024 Monocytes/100 WBC (Bld) 6.9 % Normal . [facility] Comment on above: Performed By: #### C MP, CBC, TACROLIMUS. #### [address] Automated neutrophil %Ordere d By: Sharan Ayoub on 2024 Neutrophils/100 WBC (Bld) 55.5 % Normal . [facility] Comment on above: Performed By: #### C MP, CBC, TACROLIMUS. #### [facility] [address] Bilirubin.total [Mass/volume ] in Serum or PlasmaOrdered By: Sharan Ayoub on 2024 Bilirubin [Mass/Vol] 2.3 mg/dL High 0.3-1.0 [facility] Comment on above: Samples from patient s who have taken Naproxen have shown spurious elevation in Total Bilirubin levels. A metabolite of Naproxen, O-desmethylnaproxen, has been shown to interfere with the Jendrassik-Grof method for measuring Total Bilirubin. Result Comment: Samp les from patients who have taken Naproxen have shown spurious elevation in Total Bilirubin levels. A metabolite of Naproxen, O-desmethylnaproxen, has been shown to interfere with the Jendrassik-Grof method for measuring Total Bilirubin. Performed By: #### C MP, CBC, TACROLIMUS. #### [address] Calcium [Mass/volume] in Ser um or PlasmaOrdered By: Sharan Ayoub on 2024 Calcium [Mass/Vol] 8.8 mg/dL Normal 8.6-10.3 [facility] Comment on above: Performed By: #### C MP, CBC, TACROLIMUS. #### [address] Carbon dioxide, total [Moles /volume] in Serum or PlasmaOrdered By: Sharan Ayoub on 2024 CO2 [Moles/Vol] 29.7 mmol/L Normal 21.0-31.0 [facility] Comment on above: Performed By: #### C MP, CBC, TACROLIMUS. #### [address] Chloride [Moles/volume] in S kasi or PlasmaOrdered By: Sharan Ayoub on 2024 Chloride [Moles/Vol] 107 mmol/L Normal 98-107 [facility] Comment on above: Performed By: #### C MP, CBC, TACROLIMUS. #### [address] Complete Blood Count Auto Di ffon 2024 Mean Corpuscular HGB Conc 33.6 g/dL Normal 32.5-35.6 [facility] Comment on above: Performed By: #### C MP, CBC, TACROLIMUS. #### [address] NRBC% 0.2 /100{WBC} Normal 0-0.5 [facility] Comment on above: Performed By: #### C MP, CBC, TACROLIMUS. #### [address] Comprehensive Metabolic Pane sarah 2024 Albumin [Mass/Vol] 3.2 g/dL Low 3.5-5.7 [facility] Comment on above: Performed By: #### C MP, CBC, TACROLIMUS. #### [address] GFR/1.73 sq M.predicted MDRD (S/P/Bld) [Vol rate/Area] mL/min/{1.73_m2} Normal [facility] Comment on above: Performed By: #### C MP, CBC, TACROLIMUS. #### [address] Creatinine [Mass/volume] in Serum or PlasmaOrdered By: Sharan Ayoub on 2024 Creatinine [Mass/Vol] 1.01 mg/dL Normal 0.70-1.30 [facility] Comment on above: Performed By: #### C MP, CBC, TACROLIMUS. #### [place] [address] Erythrocyte distribution wid th [Ratio] by Automated countOrdered By: Sharan Ayoub on 2024 Erythrocyte distribution width (RBC) [Ratio] 14.7 % Normal 12.0-14.8 [facility] Comment on above: Performed By: #### C MP, CBC, TACROLIMUS. #### [facility] [address] Erythrocytes [#/volume] in B lood by Automated countOrdered By: Sharan Ayoub on 2024 RBC (Bld) [#/Vol] 4.48 10*6/uL Normal 3.90-5.60 [facility] Comment on above: Performed By: #### C MP, CBC, TACROLIMUS. #### [address] Glucose [Mass/volume] in Ser um or PlasmaOrdered By: Sharan Ayoub on 2024 Glucose [Mass/Vol] 125 mg/dL High 70-100 [facility] Comment on above: ADA recommended refe rence rangeRandom Glucose Reference Range is dependent on time and content of last meal. Glucose of more than 200 mg/dL in a nonstressed, ambulatory subject supports the diagnosis of Diabetes Mellitus. Result Comment: [place] Glucose Reference Range is dependent on time and content of last meal. Glucose of more than 200 mg/dL in a nonstressed, ambulatory subject supports the diagnosis of Diabetes Mellitus. ADA recommended reference range Performed By: #### C MP, CBC, TACROLIMUS. #### [address] Hematocrit [Volume Fraction] of Blood by Automated countOrdered By: Sharan Ayoub on 2024 Hematocrit (Bld) [Volume fraction] 41.8 % Normal 38.8-50.0 [facility] Comment on above: Performed By: #### C MP, CBC, TACROLIMUS. #### [place] [address] [place] Hemoglobin [Mass/volume] in BloodOrdered By: Sharan Ayoub on 2024 Hemoglobin (Bld) [Mass/Vol] 14.0 g/dL Normal 13.0-17.0 [facility] Comment on above: Performed By: #### C MP, CBC, TACROLIMUS. #### [address] Leukocytes [#/volume] correc roderick for nucleated erythrocytes in Blood by Automated counOrdered By: Sharan Ayoub on 2024 WBC corrected for nucl RBC Auto (Bld) [#/Vol] 11.8 10*3/uL High 4.1-10.5 [facility] Leukocytes [#/volume] in Blo od by Automated countOrdered By: Sharan Ayoub on 2024 WBC (Bld) [#/Vol] 11.8 10*3/uL High 4.1-10.5 [facility] Comment on above: Performed By: #### C MP, CBC, TACROLIMUS. #### [address] Lymphocytes [#/volume] in Bl ood by Automated countOrdered By: Sharan Ayoub on 2024 Lymphocytes (Bld) [#/Vol] 4.3 10*3/uL Normal 1.00-4.8 [facility] Comment on above: Performed By: #### C MP, CBC, TACROLIMUS. #### [address] Lymphocytes/100 leukocytes i n Blood by Automated countOrdered By: Sharan Ayoub on 2024 Lymphocytes/100 WBC (Bld) 36.3 % Normal . [facility] Comment on above: Performed By: #### C MP, CBC, TACROLIMUS. #### [place] [address] [place] MCH [Entitic mass] by Automa roderick countOrdered By: Sharan Ayoub on 2024 MCH (RBC) [Entitic mass] 31.4 pg Normal 27.5-35.2 [facility] Comment on above: Performed By: #### C MP, CBC, TACROLIMUS. #### [address] [place] [address] [place] MCHC Auto (RBC) [Mass/Vol]Or dered By: Sharan Ayoub on 2024 MCHC (RBC) [Mass/Vol] 33.6 g/dL 32.5-35.6 [facility] MCV [Entitic volume] by Auto mated countOrdered By: Sharan Ayoub on 2024 MCV (RBC) [Entitic vol] 93.3 fL Normal 83.5-101 [facility] Comment on above: Performed By: #### C MP, CBC, TACROLIMUS. #### [facility] [address] [place] [address] Neutrophils [#/volume] in Bl ood by Automated countOrdered By: Sharan Ayoub on 2024 Neutrophils (Bld) [#/Vol] 6.6 10*3/uL Normal 1.8-7.7 [facility] Comment on above: Performed By: #### C MP, CBC, TACROLIMUS. #### [facility] [address] [place] [address] No Panel InformationOrdered By: Sharan Ayoub on 2024 Estimated GFR (CKD-EPI) > 60.0 mL/Min [facility] Creatinine Clearance (Chem N/A [facility] Nucleated erythrocytes [Pres ence] in Blood by Automated countOrdered By: Sharan Ayoub on 2024 Nucleated RBC Auto Ql (Bld) 0.2 /100{WBC} 0-0.5 [facility] Platelet mean volume [Entiti c volume] in Blood by Automated countOrdered By: Sharan Ayoub on 2024 Platelet mean volume (Bld) [Entitic vol] 11.6 fL High 6.6-10.1 [facility] Comment on above: Performed By: #### C MP, CBC, TACROLIMUS. #### [facility] [address] [place] [address] Platelets [#/volume] in Bloo d by Automated countOrdered By: Sharan Ayoub on 2024 Platelets (Bld) [#/Vol] 161 10*3/uL Normal 150-450 [facility] Comment on above: Performed By: #### C MP, CBC, TACROLIMUS. #### [facility] [address] [place] [address] Potassium [Moles/volume] in Serum or PlasmaOrdered By: Sharan Ayoub on 2024 Potassium [Moles/Vol] 3.8 mmol/L Normal 3.5-5.1 [facility] Comment on above: Performed By: #### C MP, CBC, TACROLIMUS. #### [facility] [address] [place] [address] Protein [Mass/volume] in Ser um or PlasmaOrdered By: Sharan Ayoub on 2024 Protein [Mass/Vol] 6.5 g/dL Normal 6.4-8.9 [facility] Comment on above: Performed By: #### C MP, CBC, TACROLIMUS. #### [facility] [address] [place] [address] Serum globulin measurement b y calculation (mass/volume)Ordered By: Sharan Ayoub on 2024 Globulin (S) [Mass/Vol] 3.3 g/dL [facility] Comment on above: Performed By: #### C MP, CBC, TACROLIMUS. #### [facility] [address] [place] [address] Serum or plasma albumin/glob ulin mass ratioOrdered By: Sharan Ayoub on 2024 Albumin/Globulin [Mass ratio] 1.0 {ratio} [facility] Comment on above: Performed By: #### C MP, CBC, TACROLIMUS. #### [facility] [address] [address] [place] [address] Serum or plasma anion gap de terminationOrdered By: Sharan Ayoub on 2024 Anion gap [Moles/Vol] 8.1 mmol/L Normal 6.0-15.0 [facility] Comment on above: Performed By: #### C MP, CBC, TACROLIMUS. #### [facility] [address] [place] [address] Sodium [Moles/volume] in Ser um or PlasmaOrdered By: Sharan Ayoub on 2024 Sodium [Moles/Vol] 141 mmol/L Normal 136-145 [facility] Comment on above: Performed By: #### C MP, CBC, TACROLIMUS. #### [address] Tacrolimuson 2024 Tacrolimus (Bld) [Mass/Vol] 10.1 ng/mL Normal <=15.0 [facility] Comment on above: Order Comment: NOTE: Result was obtained using a chemiluminescent microparticle immunoassay (CMIA) on the Stem Roller Or Crusher Operator i system. Optimal therapeutic ranges for immunosuppressant drugs depend upon an individual patient's current clinical state, type of organ transplant, time post-transplant, co-administration of other immunosuppressants, and other clinical factors. The results of this test should be correlated with additional clinical and laboratory data before changes in treatment regimens are made. Performed By: #### 1 1253-2 #### NORMA Cherry ([id number]) [facility] ([facility]) [id number] [place] [address] Tacrolimus (Transplant) No C hgon 2024 Tacrolimus (Transplant) No Chg Sent to Ref Lab Normal [facility] Comment on above: Result Comment: PERF ORMED BY: [place] [address] PATHOLOGIST VICTORIAN LITERATURE PROFESSOR MISAEL FOX M.D. Performed By: #### C MP, CBC, TACROLIMUS. #### [address] Tacrolimus [Mass/volume] in BloodOrdered By: Sharan Ayoub on 2024 Tacrolimus (Bld) [Mass/Vol] Sent to ref lab [facility] Urea nitrogen [Mass/volume] in Serum or PlasmaOrdered By: Sharan Ayoub on 2024 Urea nitrogen [Mass/Vol] 21 mg/dL Normal 7-25 [facility] Comment on above: Performed By: #### C MP, CBC, TACROLIMUS. #### [address] [address] [place] Alanine aminotransferase [En zymatic activity/volume] in Serum or PlasmaOrdered By: Sharan Ayoub on 03-06-2024 ALT [Catalytic activity/Vol] 109 U/L High 7-52 [facility] Comment on above: Performed By: #### T ACROLIMUS., CMP, CBC #### [facility] [address] [place] [address] [place] Albumin [Mass/volume] in Ser um or Plasma by Bromocresol green (BCG) dye binding methoOrdered By: Sharan Ayoub on 03-06-2024 Albumin BCG dye [Mass/Vol] 3.1 g/dL Low 3.5-5.7 [facility] Alkaline phosphatase [Enzyma tic activity/volume] in Serum or PlasmaOrdered By: Sharan Ayoub on 03-06-2024 ALP [Catalytic activity/Vol] 148 U/L High 34-104 [facility] Comment on above: Result Comment: PERF ORMED BY: [place] [address] PATHOLOGIST VICTORIAN LITERATURE PROFESSOR MISAEL FOX M.D. Performed By: #### T ACROLIMUS., CMP, CBC #### [facility] [address] [place] [address] Aspartate aminotransferase [ Enzymatic activity/volume] in Serum or PlasmaOrdered By: Sharan Ayoub on 03-06-2024 AST [Catalytic activity/Vol] 70 U/L High 13-39 [facility] Comment on above: Performed By: #### T ACROLIMUS., CMP, CBC #### [facility] [address] [place] [address] Automated basophil %Ordered By: Sharan Ayoub on 03-06-2024 Basophils/100 WBC (Bld) 0.6 % Normal . [facility] Comment on above: Performed By: #### T ACROLIMUS., CMP, CBC #### [facility] [address] [place] [address] Automated basophil countOrde red By: Sharan Ayoub on 03-06-2024 Basophils (Bld) [#/Vol] 0.1 10*3/uL Normal 0.0-0.2 [facility] Comment on above: Result Comment: PERF ORMED BY: [place] [address] PATHOLOGIST VICTORIAN LITERATURE PROFESSOR MISAEL FOX M.D. Performed By: #### T ACROLIMUS., CMP, CBC #### [address] Automated blood monocyte cou ntOrdered By: Sharan Ayoub on 03-06-2024 Monocytes (Bld) [#/Vol] 0.6 10*3/uL Normal 0.0-0.8 [facility] Comment on above: Performed By: #### T ACROLIMUS., CMP, CBC #### [address] Automated eosinophil %Ordere d By: Sharan Ayoub on 03-06-2024 Eosinophils/100 WBC (Bld) 0.6 % Normal . [facility] Comment on above: Performed By: #### T ACROLIMUS., CMP, CBC #### [address] Automated eosinophil countOr dered By: Sharan Ayoub on 03-06-2024 Eosinophils (Bld) [#/Vol] 0.1 10*3/uL Normal 0.0-0.45 [facility] Comment on above: Performed By: #### T ACROLIMUS., CMP, CBC #### [facility] [address] [place] [address] Automated monocyte %Ordered By: Sharan Ayoub on 03-06-2024 Monocytes/100 WBC (Bld) 6.5 % Normal . [facility] Comment on above: Performed By: #### T ACROLIMUS., CMP, CBC #### [address] Automated neutrophil %Ordere d By: Sharan Ayoub on 03-06-2024 Neutrophils/100 WBC (Bld) 54.6 % Normal . [facility] Comment on above: Performed By: #### T ACROLIMUS., CMP, CBC #### [facility] [address] Bilirubin.total [Mass/volume ] in Serum or PlasmaOrdered By: Sharan Ayoub on 03-06-2024 Bilirubin [Mass/Vol] 2.1 mg/dL High 0.3-1.0 [facility] Comment on above: Samples from patient s who have taken Naproxen have shown spurious elevation in Total Bilirubin levels. A metabolite of Naproxen, O-desmethylnaproxen, has been shown to interfere with the Jendrassik-Grof method for measuring Total Bilirubin. Result Comment: Samp les from patients who have taken Naproxen have shown spurious elevation in Total Bilirubin levels. A metabolite of Naproxen, O-desmethylnaproxen, has been shown to interfere with the Jendrassik-Grof method for measuring Total Bilirubin. Performed By: #### T ACROLIMUS., CMP, CBC #### [facility] [address] Calcium [Mass/volume] in Ser um or PlasmaOrdered By: Sharan Ayoub on 03-06-2024 Calcium [Mass/Vol] 8.9 mg/dL Normal 8.6-10.3 [facility] Comment on above: Performed By: #### T ACROLIMUS., CMP, CBC #### [address] Carbon dioxide, total [Moles /volume] in Serum or PlasmaOrdered By: Sharan Ayoub on 03-06-2024 CO2 [Moles/Vol] 28.2 mmol/L Normal 21.0-31.0 [facility] Comment on above: Performed By: #### T ACROLIMUS., CMP, CBC #### [facility] [address] [place] [address] [place] Chloride [Moles/volume] in S kasi or PlasmaOrdered By: Sharan Ayoub on 03-06-2024 Chloride [Moles/Vol] 104 mmol/L Normal 98-107 [facility] Comment on above: Performed By: #### T ACROLIMUS., CMP, CBC #### [facility] [address] Complete Blood Count Auto Di ffon 03-06-2024 Mean Corpuscular HGB Conc 33.8 g/dL Normal 32.5-35.6 [facility] Comment on above: Performed By: #### T ACROLIMUS., CMP, CBC #### [facility] [address] [place] [address] NRBC% 0.2 /100{WBC} Normal 0-0.5 [facility] Comment on above: Performed By: #### T ACROLIMUS., CMP, CBC #### [facility] [address] [place] [address] Comprehensive Metabolic Pane sarah 03-06-2024 Albumin [Mass/Vol] 3.1 g/dL Low 3.5-5.7 [facility] Comment on above: Performed By: #### T ACROLIMUS., CMP, CBC #### [address] GFR/1.73 sq M.predicted MDRD (S/P/Bld) [Vol rate/Area] mL/min/{1.73_m2} Normal [facility] Comment on above: Performed By: #### T ACROLIMUS., CMP, CBC #### [facility] [address] [place] [address] Creatinine [Mass/volume] in Serum or PlasmaOrdered By: Sharan Ayoub on 03-06-2024 Creatinine [Mass/Vol] 1.10 mg/dL Normal 0.70-1.30 [facility] Comment on above: Performed By: #### T ACROLIMUS., CMP, CBC #### [facility] [address] [place] [address] Erythrocyte distribution wid th [Ratio] by Automated countOrdered By: Sharan Ayoub on 03-06-2024 Erythrocyte distribution width (RBC) [Ratio] 14.9 % High 12.0-14.8 [facility] Comment on above: Performed By: #### T ACROLIMUS., CMP, CBC #### [facility] [address] [place] [address] Erythrocytes [#/volume] in B lood by Automated countOrdered By: Sharan Ayoub on 03-06-2024 RBC (Bld) [#/Vol] 4.28 10*6/uL Normal 3.90-5.60 [facility] Comment on above: Performed By: #### T ACROLIMUS., CMP, CBC #### [facility] [address] Glucose [Mass/volume] in Ser um or PlasmaOrdered By: Sharan Ayoub on 03-06-2024 Glucose [Mass/Vol] 337 mg/dL High 70-100 [facility] Comment on above: ADA recommended refe rence rangeRandom Glucose Reference Range is dependent on time and content of last meal. Glucose of more than 200 mg/dL in a nonstressed, ambulatory subject supports the diagnosis of Diabetes Mellitus. Result Comment: [place] Glucose Reference Range is dependent on time and content of last meal. Glucose of more than 200 mg/dL in a nonstressed, ambulatory subject supports the diagnosis of Diabetes Mellitus. ADA recommended reference range Performed By: #### T ACROLIMUS., CMP, CBC #### [facility] [address] Hematocrit [Volume Fraction] of Blood by Automated countOrdered By: Sharan Ayoub on 03-06-2024 Hematocrit (Bld) [Volume fraction] 40.0 % Normal 38.8-50.0 [facility] Comment on above: Performed By: #### T ACROLIMUS., CMP, CBC #### [facility] [address] [place] [address] [place] Hemoglobin [Mass/volume] in BloodOrdered By: Sharan Ayoub on 03-06-2024 Hemoglobin (Bld) [Mass/Vol] 13.5 g/dL Normal 13.0-17.0 [facility] Comment on above: Performed By: #### T ACROLIMUS., CMP, CBC #### [facility] [address] [place] [address] [place] Leukocytes [#/volume] correc roderick for nucleated erythrocytes in Blood by Automated counOrdered By: Sharan Ayoub on 03-06-2024 WBC corrected for nucl RBC Auto (Bld) [#/Vol] 9.6 10*3/uL 4.1-10.5 [facility] Leukocytes [#/volume] in Blo od by Automated countOrdered By: Sharan Ayoub on 03-06-2024 WBC (Bld) [#/Vol] 9.6 10*3/uL Normal 4.1-10.5 [facility] Comment on above: Performed By: #### T ACROLIMUS., CMP, CBC #### [facility] [address] Lymphocytes [#/volume] in Bl ood by Automated countOrdered By: Sharan Ayoub on 03-06-2024 Lymphocytes (Bld) [#/Vol] 3.6 10*3/uL Normal 1.00-4.8 [facility] Comment on above: Performed By: #### T ACROLIMUS., CMP, CBC #### [facility] [address] Lymphocytes/100 leukocytes i n Blood by Automated countOrdered By: Sharan Ayoub on 03-06-2024 Lymphocytes/100 WBC (Bld) 37.7 % Normal . [facility] Comment on above: Performed By: #### T ACROLIMUS., CMP, CBC #### [facility] [address] [place] [address] MCH [Entitic mass] by Automa roderick countOrdered By: Sharan Ayoub on 03-06-2024 MCH (RBC) [Entitic mass] 31.6 pg Normal 27.5-35.2 [facility] Comment on above: Performed By: #### T ACROLIMUS., CMP, CBC #### [facility] [address] [place] [address] MCHC Auto (RBC) [Mass/Vol]Or dered By: Sharan Ayoub on 03-06-2024 MCHC (RBC) [Mass/Vol] 33.8 g/dL 32.5-35.6 [facility] MCV [Entitic volume] by Auto mated countOrdered By: Sharan Ayoub on 03-06-2024 MCV (RBC) [Entitic vol] 93.5 fL Normal 83.5-101 [facility] Comment on above: Performed By: #### T ACROLIMUS., CMP, CBC #### [facility] [address] Neutrophils [#/volume] in Bl ood by Automated countOrdered By: Sharan Ayoub on 03-06-2024 Neutrophils (Bld) [#/Vol] 5.2 10*3/uL Normal 1.8-7.7 [facility] Comment on above: Performed By: #### T ACROLIMUS., CMP, CBC #### [facility] [address] [place] [address] No Panel InformationOrdered By: Sharan Ayoub on 03-06-2024 Estimated GFR (CKD-EPI) > 60.0 mL/Min [facility] Creatinine Clearance (Chem N/A [facility] Nucleated erythrocytes [Pres ence] in Blood by Automated countOrdered By: Sharan Ayoub on 03-06-2024 Nucleated RBC Auto Ql (Bld) 0.2 /100{WBC} 0-0.5 [facility] Platelet mean volume [Entiti c volume] in Blood by Automated countOrdered By: Sharan Ayoub on 03-06-2024 Platelet mean volume (Bld) [Entitic vol] 11.4 fL High 6.6-10.1 [facility] Comment on above: Performed By: #### T ACROLIMUS., CMP, CBC #### [facility] [address] [place] [address] Platelets [#/volume] in Bloo d by Automated countOrdered By: Sharan Ayoub on 03-06-2024 Platelets (Bld) [#/Vol] 150 10*3/uL Normal 150-450 [facility] Comment on above: Performed By: #### T ACROLIMUS., CMP, CBC #### [facility] [address] [place] [address] Potassium [Moles/volume] in Serum or PlasmaOrdered By: Sharan Ayoub on 03-06-2024 Potassium [Moles/Vol] 3.9 mmol/L Normal 3.5-5.1 [facility] Comment on above: Performed By: #### T ACROLIMUS., CMP, CBC #### [facility] [address] [place] [address] Protein [Mass/volume] in Ser um or PlasmaOrdered By: Sharan Ayoub on 03-06-2024 Protein [Mass/Vol] 6.1 g/dL Low 6.4-8.9 [facility] Comment on above: Performed By: #### T ACROLIMUS., CMP, CBC #### [address] Serum globulin measurement b y calculation (mass/volume)Ordered By: Sharan Ayoub on Globulin (S) [Mass/Vol] 3.0 g/dL Normal [facility] Comment on above: Performed By: #### T ACROLIMUS., CMP, CBC #### [facility] [address] [place] [address] Serum or plasma albumin/glob ulin mass ratioOrdered By: Sharan Ayoub on 03-06-2024 Albumin/Globulin [Mass ratio] 1.0 {ratio} [facility] Comment on above: Performed By: #### T ACROLIMUS., CMP, CBC #### [facility] [address] [place] [address] Serum or plasma anion gap de terminationOrdered By: Sharan Ayoub on 03-06-2024 Anion gap [Moles/Vol] 9.7 mmol/L Normal 6.0-15.0 [facility] Comment on above: Performed By: #### T ACROLIMUS., CMP, CBC #### [address] Sodium [Moles/volume] in Ser um or PlasmaOrdered By: Sharan Ayoub on 03-06-2024 Sodium [Moles/Vol] 138 mmol/L Normal 136-145 [facility] Comment on above: Performed By: #### T ACROLIMUS., CMP, CBC #### [facility] [address] [place] [address] Tacrolimuson 03-06-2024 Tacrolimus (Bld) [Mass/Vol] 5.9 ng/mL Normal <=15.0 [facility] Comment on above: Order Comment: NOTE: Result was obtained using a chemiluminescent microparticle immunoassay (CMIA) on the Stem Roller Or Crusher Operator i system. Optimal therapeutic ranges for immunosuppressant drugs depend upon an individual patient's current clinical state, type of organ transplant, time post-transplant, co-administration of other immunosuppressants, and other clinical factors. The results of this test should be correlated with additional clinical and laboratory data before changes in treatment regimens are made. Performed By: #### 1 1253-2 #### NORMA Cherry ([id number]) [facility] ([facility]) [id number] [place] [address] Tacrolimus (Transplant) No C hgon 03-06-2024 Tacrolimus (Transplant) No Chg Sent to Ref Lab Normal [facility] Comment on above: Result Comment: PERF ORMED BY: [place] [address] PATHOLOGIST VICTORIAN LITERATURE PROFESSOR MISAEL FOX M.D. Performed By: #### T ACROLIMUS., CMP, CBC #### [place] [address] [place] Tacrolimus [Mass/volume] in BloodOrdered By: Sharan Ayoub on 03-06-2024 Tacrolimus (Bld) [Mass/Vol] Sent to ref lab [facility] Urea nitrogen [Mass/volume] in Serum or PlasmaOrdered By: Sharan Ayoub on 03-06-2024 Urea nitrogen [Mass/Vol] 25 mg/dL Normal 04-25 [facility] Comment on above: Performed By: #### T ACROLIMUS., CMP, CBC #### [place] [address] [place] Alanine aminotransferase [En zymatic activity/volume] in Serum or PlasmaOrdered By: Sharan Ayoub on 02-27-2024 ALT [Catalytic activity/Vol] 119 U/L High [facility] Comment on above: Performed By: #### C MP, CBC, TACROLIMUS. #### [place] [address] [place] Albumin [Mass/volume] in Ser um or Plasma by Bromocresol green (BCG) dye binding methoOrdered By: Sharan Ayoub on 02-27-2024 Albumin BCG dye [Mass/Vol] 3.3 g/dL Low 3.5-5.7 [facility] Alkaline phosphatase [Enzyma tic activity/volume] in Serum or PlasmaOrdered By: Sharan Ayoub on 02-27-2024 ALP [Catalytic activity/Vol] 184 U/L High 34-104 [facility] Comment on above: Result Comment: PERF ORMED BY: [place] [address] PATHOLOGIST VICTORIAN LITERATURE PROFESSOR MISAEL FOX M.D. Performed By: #### C MP, CBC, TACROLIMUS. #### [facility] [address] [place] [address] Aspartate aminotransferase [ Enzymatic activity/volume] in Serum or PlasmaOrdered By: Sharan Ayoub on 02-27-2024 AST [Catalytic activity/Vol] 77 U/L High 13-39 [facility] Comment on above: Performed By: #### C MP, CBC, TACROLIMUS. #### [facility] [address] [place] [address] Automated basophil %Ordered By: Sharan Ayoub on 02-27-2024 Basophils/100 WBC (Bld) 0.6 % Normal . [facility] Comment on above: Performed By: #### C MP, CBC, TACROLIMUS. #### [facility] [address] [place] [address] Automated basophil countOrde red By: Sharan Ayoub on 02-27-2024 Basophils (Bld) [#/Vol] 0.1 10*3/uL Normal 0.0-0.2 [facility] Comment on above: Result Comment: PERF ORMED BY: [place] [address] PATHOLOGIST VICTORIAN LITERATURE PROFESSOR MISAEL FOX M.D. Performed By: #### C MP, CBC, TACROLIMUS. #### [facility] [address] [place] [address] Automated blood monocyte cou ntOrdered By: Sharan Ayoub on 02-27-2024 Monocytes (Bld) [#/Vol] 0.9 10*3/uL High 0.0-0.8 [facility] Comment on above: Performed By: #### C MP, CBC, TACROLIMUS. #### [facility] [address] [place] [address] Automated eosinophil %Ordere d By: Sharan Ayobu on 02-27-2024 Eosinophils/100 WBC (Bld) 0.5 % Normal . [facility] Comment on above: Performed By: #### C MP, CBC, TACROLIMUS. #### [address] Automated eosinophil countOr dered By: Sharan Ayoub on 02-27-2024 Eosinophils (Bld) [#/Vol] 0.0 10*3/uL Normal 0.0-0.45 [facility] Comment on above: Performed By: #### C MP, CBC, TACROLIMUS. #### [address] Automated monocyte %Ordered By: Sharan Ayoub on 02-27-2024 Monocytes/100 WBC (Bld) 10.0 % Normal . [facility] Comment on above: Performed By: #### C MP, CBC, TACROLIMUS. #### [address] Automated neutrophil %Ordere d By: Sharan Ayoub on 02-27-2024 Neutrophils/100 WBC (Bld) 48.1 % Normal . [facility] Comment on above: Performed By: #### C MP, CBC, TACROLIMUS. #### [address] Bilirubin.total [Mass/volume ] in Serum or PlasmaOrdered By: Sharan Ayoub on 02-27-2024 Bilirubin [Mass/Vol] 2.5 mg/dL High 0.3-1.0 [facility] Comment on above: Samples from patient s who have taken Naproxen have shown spurious elevation in Total Bilirubin levels. A metabolite of Naproxen, O-desmethylnaproxen, has been shown to interfere with the Jendrassik-Grof method for measuring Total Bilirubin. Result Comment: Samp les from patients who have taken Naproxen have shown spurious elevation in Total Bilirubin levels. A metabolite of Naproxen, O-desmethylnaproxen, has been shown to interfere with the Jendrassik-Grof method for measuring Total Bilirubin. Performed By: #### C MP, CBC, TACROLIMUS. #### [address] Calcium [Mass/volume] in Ser um or PlasmaOrdered By: Sharan Ayoub on 02-27-2024 Calcium [Mass/Vol] 9.2 mg/dL Normal 8.6-10.3 [facility] Comment on above: Performed By: #### C MP, CBC, TACROLIMUS. #### [address] Carbon dioxide, total [Moles /volume] in Serum or PlasmaOrdered By: Sharan Ayoub on 02-27-2024 CO2 [Moles/Vol] 30.5 mmol/L Normal 21.0-31.0 [facility] Comment on above: Performed By: #### C MP, CBC, TACROLIMUS. #### [address] Chloride [Moles/volume] in S kasi or PlasmaOrdered By: Sharan Ayoub on 02-27-2024 Chloride [Moles/Vol] 103 mmol/L Normal 98-107 [facility] Comment on above: Performed By: #### C MP, CBC, TACROLIMUS. #### [address] Complete Blood Count Auto Di ffon 02-27-2024 Mean Corpuscular HGB Conc 33.9 g/dL Normal 32.5-35.6 [facility] Comment on above: Performed By: #### C MP, CBC, TACROLIMUS. #### [address] NRBC% 0.4 /100{WBC} Normal 0-0.5 [facility] Comment on above: Performed By: #### C MP, CBC, TACROLIMUS. #### [address] Comprehensive Metabolic Pane sarah 02-27-2024 Albumin [Mass/Vol] 3.3 g/dL Low 3.5-5.7 [facility] Comment on above: Performed By: #### C MP, CBC, TACROLIMUS. #### [address] GFR/1.73 sq M.predicted MDRD (S/P/Bld) [Vol rate/Area] mL/min/{1.73_m2} Normal [facility] Comment on above: Performed By: #### C MP, CBC, TACROLIMUS. #### [address] Creatinine [Mass/volume] in Serum or PlasmaOrdered By: Sharan Ayoub on 02-27-2024 Creatinine [Mass/Vol] 0.95 mg/dL Normal 0.70-1.30 [facility] Comment on above: Performed By: #### C MP, CBC, TACROLIMUS. #### [address] Erythrocyte distribution wid th [Ratio] by Automated countOrdered By: Sharan Ayoub on 02-27-2024 Erythrocyte distribution width (RBC) [Ratio] 15.2 % High 12.0-14.8 [facility] Comment on above: Performed By: #### C MP, CBC, TACROLIMUS. #### [address] Erythrocytes [#/volume] in B lood by Automated countOrdered By: Sharan Ayoub on 02-27-2024 RBC (Bld) [#/Vol] 4.70 10*6/uL Normal 3.90-5.60 [facility] Comment on above: Performed By: #### C MP, CBC, TACROLIMUS. #### [address] Glucose [Mass/volume] in Ser um or PlasmaOrdered By: Sharan Ayoub on 02-27-2024 Glucose [Mass/Vol] 169 mg/dL High 70-100 [facility] Comment on above: ADA recommended refe rence rangeRandom Glucose Reference Range is dependent on time and content of last meal. Glucose of more than 200 mg/dL in a nonstressed, ambulatory subject supports the diagnosis of Diabetes Mellitus. Result Comment: [place] Glucose Reference Range is dependent on time and content of last meal. Glucose of more than 200 mg/dL in a nonstressed, ambulatory subject supports the diagnosis of Diabetes Mellitus. ADA recommended reference range Performed By: #### C MP, CBC, TACROLIMUS. #### [address] Hematocrit [Volume Fraction] of Blood by Automated countOrdered By: Sharan Ayoub on 02-27-2024 Hematocrit (Bld) [Volume fraction] 43.6 % Normal 38.8-50.0 [facility] Comment on above: Performed By: #### C MP, CBC, TACROLIMUS. #### [address] Hemoglobin [Mass/volume] in BloodOrdered By: Sharan Ayoub on 02-27-2024 Hemoglobin (Bld) [Mass/Vol] 14.8 g/dL Normal 13.0-17.0 [facility] Comment on above: Performed By: #### C MP, CBC, TACROLIMUS. #### [address] Leukocytes [#/volume] correc roderick for nucleated erythrocytes in Blood by Automated counOrdered By: Sharan Ayoub on 02-27-2024 WBC corrected for nucl RBC Auto (Bld) [#/Vol] 9.0 10*3/uL 4.1-10.5 [facility] Leukocytes [#/volume] in Blo od by Automated countOrdered By: Sharan Ayoub on 02-27-2024 WBC (Bld) [#/Vol] 9.0 10*3/uL Normal 4.1-10.5 [facility] Comment on above: Performed By: #### C MP, CBC, TACROLIMUS. #### [place] [address] [place] Lymphocytes [#/volume] in Bl ood by Automated countOrdered By: Sharan Ayoub on 02-27-2024 Lymphocytes (Bld) [#/Vol] 3.7 10*3/uL Normal 1.00-4.8 [facility] Comment on above: Performed By: #### C MP, CBC, TACROLIMUS. #### [address] Lymphocytes/100 leukocytes i n Blood by Automated countOrdered By: Sharan Ayoub on 02-27-2024 Lymphocytes/100 WBC (Bld) 40.8 % Normal . [facility] Comment on above: Performed By: #### C MP, CBC, TACROLIMUS. #### [address] MCH [Entitic mass] by Automa roderick countOrdered By: Sharan Ayoub on 02-27-2024 MCH (RBC) [Entitic mass] 31.4 pg Normal 27.5-35.2 [facility] Comment on above: Performed By: #### C MP, CBC, TACROLIMUS. #### [address] MCHC Auto (RBC) [Mass/Vol]Or dered By: Sharan Ayoub on 02-27-2024 MCHC (RBC) [Mass/Vol] 33.9 g/dL 32.5-35.6 [facility] MCV [Entitic volume] by Auto mated countOrdered By: Sharan Ayoub on 02-27-2024 MCV (RBC) [Entitic vol] 92.7 fL Normal 83.5-101 [facility] Comment on above: Performed By: #### C MP, CBC, TACROLIMUS. #### [address] Neutrophils [#/volume] in Bl ood by Automated countOrdered By: Sharan Ayoub on 02-27-2024 Neutrophils (Bld) [#/Vol] 4.3 10*3/uL Normal 1.8-7.7 [facility] Comment on above: Performed By: #### C MP, CBC, TACROLIMUS. #### [address] No Panel InformationOrdered By: Sharan Ayoub on 02-27-2024 Estimated GFR (CKD-EPI) > 60.0 mL/Min [facility] Creatinine Clearance (Chem N/A [facility] Nucleated erythrocytes [Pres ence] in Blood by Automated countOrdered By: Sharan Ayoub on 02-27-2024 Nucleated RBC Auto Ql (Bld) 0.4 /100{WBC} 0-0.5 [facility] Platelet mean volume [Entiti c volume] in Blood by Automated countOrdered By: Sharan Ayoub on 02-27-2024 Platelet mean volume (Bld) [Entitic vol] 10.4 fL High 6.6-10.1 [facility] Comment on above: Performed By: #### C MP, CBC, TACROLIMUS. #### [address] Platelets [#/volume] in Bloo d by Automated countOrdered By: Sharan Ayoub on 02-27-2024 Platelets (Bld) [#/Vol] 150 10*3/uL Normal 150-450 [facility] Comment on above: Performed By: #### C MP, CBC, TACROLIMUS. #### [address] Potassium [Moles/volume] in Serum or PlasmaOrdered By: Sharan Ayoub on 02-27-2024 Potassium [Moles/Vol] 3.9 mmol/L Normal 3.5-5.1 [facility] Comment on above: Performed By: #### C MP, CBC, TACROLIMUS. #### [address] Protein [Mass/volume] in Ser um or PlasmaOrdered By: Sharan Ayoub on 02-27-2024 Protein [Mass/Vol] 6.6 g/dL Normal 6.4-8.9 [facility] Comment on above: Performed By: #### C MP, CBC, TACROLIMUS. #### [address] Serum globulin measurement b y calculation (mass/volume)Ordered By: Sharan Ayoub on 02-27-2024 Globulin (S) [Mass/Vol] 3.3 g/dL [facility] Comment on above: Performed By: #### C MP, CBC, TACROLIMUS. #### [address] Serum or plasma albumin/glob ulin mass ratioOrdered By: Sharan Ayoub on 02-27-2024 Albumin/Globulin [Mass ratio] 1.0 {ratio} [facility] Comment on above: Performed By: #### C MP, CBC, TACROLIMUS. #### [address] Serum or plasma anion gap de terminationOrdered By: Sharan Ayoub on 02-27-2024 Anion gap [Moles/Vol] 8.4 mmol/L Normal 6.0-15.0 [facility] Comment on above: Performed By: #### C MP, CBC, TACROLIMUS. #### [address] Sodium [Moles/volume] in Ser um or PlasmaOrdered By: Sharan Ayoub on 02-27-2024 Sodium [Moles/Vol] 138 mmol/L Normal 136-145 [facility] Comment on above: Performed By: #### C MP, CBC, TACROLIMUS. #### [facility] [address] [place] [address] Tacrolimuson 02-27-2024 Tacrolimus (Bld) [Mass/Vol] 8.6 ng/mL Normal <=15.0 [facility] Comment on above: Order Comment: NOTE: Result was obtained using a chemiluminescent microparticle immunoassay (CMIA) on the Stem Roller Or Crusher Operator i system. Optimal therapeutic ranges for immunosuppressant drugs depend upon an individual patient's current clinical state, type of organ transplant, time post-transplant, co-administration of other immunosuppressants, and other clinical factors. The results of this test should be correlated with additional clinical and laboratory data before changes in treatment regimens are made. Performed By: #### 1 1253-2 #### NORMA Cherry ([id number]) [facility] ([facility]) [address] [place] [address] Tacrolimus (Transplant) No C hgon 02-27-2024 Tacrolimus (Transplant) No Chg Sent to Ref Lab Normal [facility] Comment on above: Result Comment: PERF ORMED BY: [place] [address] PATHOLOGIST VICTORIAN LITERATURE PROFESSOR MISAEL FOX M.D. Performed By: #### C MP, CBC, TACROLIMUS. #### [facility] [address] Tacrolimus [Mass/volume] in BloodOrdered By: Sharan Ayoub on 02-27-2024 Tacrolimus (Bld) [Mass/Vol] Sent to ref lab [facility] Urea nitrogen [Mass/volume] in Serum or PlasmaOrdered By: Sharan Ayoub on 02-27-2024 Urea nitrogen [Mass/Vol] 20 mg/dL Normal 04-25 [facility] Comment on above: Performed By: #### C MP, CBC, TACROLIMUS. #### [facility] [address] [place] [address] Alanine aminotransferase [En zymatic activity/volume] in Serum or PlasmaOrdered By: Sharan Ayoub on 02-21-2024 ALT [Catalytic activity/Vol] 118 U/L High 7-52 [facility] Comment on above: Performed By: #### T ACROLIMUS., CMP, CBC #### [facility] [address] [place] [address] [place] Albumin [Mass/volume] in Ser um or Plasma by Bromocresol green (BCG) dye binding methoOrdered By: Sharan Ayoub on 02-21-2024 Albumin BCG dye [Mass/Vol] 3.2 g/dL Low 3.5-5.7 [facility] Alkaline phosphatase [Enzyma tic activity/volume] in Serum or PlasmaOrdered By: Sharan Ayoub on 02-21-2024 ALP [Catalytic activity/Vol] 152 U/L High 34-104 [facility] Comment on above: Result Comment: PERF ORMED BY: [place] [address] PATHOLOGIST VICTORIAN LITERATURE PROFESSOR MISAEL FOX M.D. Performed By: #### T ACROLIMUS., CMP, CBC #### [address] Aspartate aminotransferase [ Enzymatic activity/volume] in Serum or PlasmaOrdered By: Sharan Ayoub on 02-21-2024 AST [Catalytic activity/Vol] 68 U/L High 13-39 [facility] Comment on above: Performed By: #### T ACROLIMUS., CMP, CBC #### [address] Automated basophil %Ordered By: Sharan Ayoub on 02-21-2024 Basophils/100 WBC (Bld) 0.2 % Normal . [facility] Comment on above: Performed By: #### T ACROLIMUS., CMP, CBC #### [address] Automated basophil countOrde red By: Sharan Ayoub on 02-21-2024 Basophils (Bld) [#/Vol] 0.0 10*3/uL Normal 0.0-0.2 [facility] Comment on above: Result Comment: PERF ORMED BY: [place] [address] PATHOLOGIST VICTORIAN LITERATURE PROFESSOR MISAEL FOX M.D. Performed By: #### T ACROLIMUS., CMP, CBC #### [address] Automated blood monocyte cou ntOrdered By: Sharan Ayoub on 02-21-2024 Monocytes (Bld) [#/Vol] 0.8 10*3/uL Normal 0.0-0.8 [facility] Comment on above: Performed By: #### T ACROLIMUS., CMP, CBC #### [address] Automated eosinophil %Ordere d By: Sharan Ayoub on 02-21-2024 Eosinophils/100 WBC (Bld) 0.6 % Normal . [facility] Comment on above: Performed By: #### T ACROLIMUS., CMP, CBC #### [address] Automated eosinophil countOr dered By: Sharan Ayoub on 02-21-2024 Eosinophils (Bld) [#/Vol] 0.1 10*3/uL Normal 0.0-0.45 [facility] Comment on above: Performed By: #### T ACROLIMUS., CMP, CBC #### [address] Automated monocyte %Ordered By: Sharan Ayoub on 02-21-2024 Monocytes/100 WBC (Bld) 7.8 % Normal . [facility] Comment on above: Performed By: #### T ACROLIMUS., CMP, CBC #### [address] Automated neutrophil %Ordere d By: Sharan Ayoub on 02-21-2024 Neutrophils/100 WBC (Bld) 66.0 % Normal . [facility] Comment on above: Performed By: #### T ACROLIMUS., CMP, CBC #### [address] Bilirubin.total [Mass/volume ] in Serum or PlasmaOrdered By: Sharan Ayoub on 02-21-2024 Bilirubin [Mass/Vol] 2.2 mg/dL High 0.3-1.0 [facility] Comment on above: Samples from patient s who have taken Naproxen have shown spurious elevation in Total Bilirubin levels. A metabolite of Naproxen, O-desmethylnaproxen, has been shown to interfere with the Jendrassik-Grof method for measuring Total Bilirubin. Result Comment: Samp les from patients who have taken Naproxen have shown spurious elevation in Total Bilirubin levels. A metabolite of Naproxen, O-desmethylnaproxen, has been shown to interfere with the Jendrassik-Grof method for measuring Total Bilirubin. Performed By: #### T ACROLIMUS., CMP, CBC #### [place] [address] [place] Calcium [Mass/volume] in Ser um or PlasmaOrdered By: Sharan Ayoub on 02-21-2024 Calcium [Mass/Vol] 8.9 mg/dL Normal 8.6-10.3 [facility] Comment on above: Performed By: #### T ACROLIMUS., CMP, CBC #### [facility] [address] Carbon dioxide, total [Moles /volume] in Serum or PlasmaOrdered By: Sharan Ayoub on 02-21-2024 CO2 [Moles/Vol] 29.9 mmol/L Normal 21.0-31.0 [facility] Comment on above: Performed By: #### T ACROLIMUS., CMP, CBC #### [address] Chloride [Moles/volume] in S kasi or PlasmaOrdered By: Sharan Ayoub on 02-21-2024 Chloride [Moles/Vol] 105 mmol/L Normal 98-107 [facility] Comment on above: Performed By: #### T ACROLIMUS., CMP, CBC #### [address] Complete Blood Count Auto Di ffon 02-21-2024 Mean Corpuscular HGB Conc 34.0 g/dL Normal 32.5-35.6 [facility] Comment on above: Performed By: #### T ACROLIMUS., CMP, CBC #### [address] NRBC% 0.2 /100{WBC} Normal 0-0.5 [facility] Comment on above: Performed By: #### T ACROLIMUS., CMP, CBC #### [facility] [address] [place] [address] Comprehensive Metabolic Pane sarah 02-21-2024 Albumin [Mass/Vol] 3.2 g/dL Low 3.5-5.7 [facility] Comment on above: Performed By: #### T ACROLIMUS., CMP, CBC #### [address] GFR/1.73 sq M.predicted MDRD (S/P/Bld) [Vol rate/Area] mL/min/{1.73_m2} Normal [facility] Comment on above: Performed By: #### T ACROLIMUS., CMP, CBC #### [facility] [address] Creatinine [Mass/volume] in Serum or PlasmaOrdered By: Sharan Ayoub on 02-21-2024 Creatinine [Mass/Vol] 0.95 mg/dL Normal 0.70-1.30 [facility] Comment on above: Performed By: #### T ACROLIMUS., CMP, CBC #### [facility] [address] Erythrocyte distribution wid th [Ratio] by Automated countOrdered By: Sharan Ayoub on 02-21-2024 Erythrocyte distribution width (RBC) [Ratio] 15.3 % High 12.0-14.8 [facility] Comment on above: Performed By: #### T ACROLIMUS., CMP, CBC #### [facility] [address] Erythrocytes [#/volume] in B lood by Automated countOrdered By: Sharan Ayoub on 02-21-2024 RBC (Bld) [#/Vol] 4.29 10*6/uL Normal 3.90-5.60 [facility] Comment on above: Performed By: #### T ACROLIMUS., CMP, CBC #### [address] Glucose [Mass/volume] in Ser um or PlasmaOrdered By: Sharan Ayoub on 02-21-2024 Glucose [Mass/Vol] 213 mg/dL High 70-100 [facility] Comment on above: ADA recommended refe rence rangeRandom Glucose Reference Range is dependent on time and content of last meal. Glucose of more than 200 mg/dL in a nonstressed, ambulatory subject supports the diagnosis of Diabetes Mellitus. Result Comment: [place] om Glucose Reference Range is dependent on time and content of last meal. Glucose of more than 200 mg/dL in a nonstressed, ambulatory subject supports the diagnosis of Diabetes Mellitus. ADA recommended reference range Performed By: #### T ACROLIMUS., CMP, CBC #### [address] Hematocrit [Volume Fraction] of Blood by Automated countOrdered By: Sharan Ayoub on 02-21-2024 Hematocrit (Bld) [Volume fraction] 40.2 % Normal 38.8-50.0 [facility] Comment on above: Performed By: #### T ACROLIMUS., CMP, CBC #### [address] Hemoglobin [Mass/volume] in BloodOrdered By: Sharan Ayoub on 02-21-2024 Hemoglobin (Bld) [Mass/Vol] 13.7 g/dL Normal 13.0-17.0 [facility] Comment on above: Performed By: #### T ACROLIMUS., CMP, CBC #### [address] Leukocytes [#/volume] correc roderick for nucleated erythrocytes in Blood by Automated counOrdered By: Sharan Ayoub on 02-21-2024 WBC corrected for nucl RBC Auto (Bld) [#/Vol] 10.2 10*3/uL 4.1-10.5 [facility] Leukocytes [#/volume] in Blo od by Automated countOrdered By: Sharan Ayoub on 02-21-2024 WBC (Bld) [#/Vol] 10.2 10*3/uL Normal 4.1-10.5 [facility] Comment on above: Performed By: #### T ACROLIMUS., CMP, CBC #### [place] [address] [place] Lymphocytes [#/volume] in Bl ood by Automated countOrdered By: Sharan Ayoub on 02-21-2024 Lymphocytes (Bld) [#/Vol] 2.6 10*3/uL Normal 1.00-4.8 [facility] Comment on above: Performed By: #### T ACROLIMUS., CMP, CBC #### [place] [address] [place] Lymphocytes/100 leukocytes i n Blood by Automated countOrdered By: Sharan Ayoub on 02-21-2024 Lymphocytes/100 WBC (Bld) 25.4 % Normal . [facility] Comment on above: Performed By: #### T ACROLIMUS., CMP, CBC #### [facility] [address] [place] [address] MCH [Entitic mass] by Automa roderick countOrdered By: Sharan Ayoub on 02-21-2024 MCH (RBC) [Entitic mass] 31.9 pg Normal 27.5-35.2 [facility] Comment on above: Performed By: #### T ACROLIMUS., CMP, CBC #### [facility] [address] [place] [address] MCHC Auto (RBC) [Mass/Vol]Or dered By: Sharan Ayoub on 02-21-2024 MCHC (RBC) [Mass/Vol] 34.0 g/dL 32.5-35.6 [facility] MCV [Entitic volume] by Auto mated countOrdered By: Sharan Ayoub on 02-21-2024 MCV (RBC) [Entitic vol] 93.8 fL Normal 83.5-101 [facility] Comment on above: Performed By: #### T ACROLIMUS., CMP, CBC #### [facility] [address] [place] [address] Neutrophils [#/volume] in Bl ood by Automated countOrdered By: Sharan Ayoub on 02-21-2024 Neutrophils (Bld) [#/Vol] 6.8 10*3/uL Normal 1.8-7.7 [facility] Comment on above: Performed By: #### T ACROLIMUS., CMP, CBC #### [facility] [address] [place] [address] No Panel InformationOrdered By: Sharan Ayoub on 02-21-2024 Estimated GFR (CKD-EPI) > 60.0 mL/Min [facility] Creatinine Clearance (Chem N/A [facility] Nucleated erythrocytes [Pres ence] in Blood by Automated countOrdered By: Sharan Ayoub on 02-21-2024 Nucleated RBC Auto Ql (Bld) 0.2 /100{WBC} 0-0.5 [facility] Platelet mean volume [Entiti c volume] in Blood by Automated countOrdered By: Sharan Ayoub on 02-21-2024 Platelet mean volume (Bld) [Entitic vol] 10.6 fL High 6.6-10.1 [facility] Comment on above: Performed By: #### T ACROLIMUS., CMP, CBC #### [facility] [address] Platelets [#/volume] in Bloo d by Automated countOrdered By: Sharan Ayoub on 02-21-2024 Platelets (Bld) [#/Vol] 140 10*3/uL Low 150-450 [facility] Comment on above: Performed By: #### T ACROLIMUS., CMP, CBC #### [address] Potassium [Moles/volume] in Serum or PlasmaOrdered By: Sharan Ayoub on 02-21-2024 Potassium [Moles/Vol] 4.1 mmol/L Normal 3.5-5.1 [facility] Comment on above: Performed By: #### T ACROLIMUS., CMP, CBC #### [facility] [address] [place] [address] Protein [Mass/volume] in Ser um or PlasmaOrdered By: Sharan Ayoub on 02-21-2024 Protein [Mass/Vol] 6.1 g/dL Low 6.4-8.9 [facility] Comment on above: Performed By: #### T ACROLIMUS., CMP, CBC #### [facility] [address] [place] [address] Serum globulin measurement b y calculation (mass/volume)Ordered By: Sharan Ayoub on 02-21-2024 Globulin (S) [Mass/Vol] 2.9 g/dL Normal [facility] Comment on above: Performed By: #### T ACROLIMUS., CMP, CBC #### [facility] [address] [place] [address] Serum or plasma albumin/glob ulin mass ratioOrdered By: Sharan Ayoub on 02-21-2024 Albumin/Globulin [Mass ratio] 1.1 {ratio} Normal [facility] Comment on above: Performed By: #### T ACROLIMUS., CMP, CBC #### [facility] [address] [place] [address] Serum or plasma anion gap de terminationOrdered By: Sharan Ayoub on 02-21-2024 Anion gap [Moles/Vol] 8.2 mmol/L Normal 6.0-15.0 [facility] Comment on above: Performed By: #### T ACROLIMUS., CMP, CBC #### [facility] [address] [place] [address] Sodium [Moles/volume] in Ser um or PlasmaOrdered By: Sharan Ayoub on 02-21-2024 Sodium [Moles/Vol] 139 mmol/L Normal 136-145 [facility] Comment on above: Performed By: #### T ACROLIMUS., CMP, CBC #### [facility] [address] [place] [address] Tacrolimuson 02-21-2024 Tacrolimus (Bld) [Mass/Vol] 8.2 ng/mL Normal <=15.0 [facility] Comment on above: Order Comment: NOTE: Result was obtained using a chemiluminescent microparticle immunoassay (CMIA) on the Stem Roller Or Crusher Operator i system. Optimal therapeutic ranges for immunosuppressant drugs depend upon an individual patient's current clinical state, type of organ transplant, time post-transplant, co-administration of other immunosuppressants, and other clinical factors. The results of this test should be correlated with additional clinical and laboratory data before changes in treatment regimens are made. Performed By: #### 1 1253-2 #### NORMA Cherry ([id number]) [facility] ([facility]) [id number] [place] [address] Tacrolimus (Transplant) No C hgon 02-21-2024 Tacrolimus (Transplant) No Chg Sent to Ref Lab Normal [facility] Comment on above: Result Comment: PERF ORMED BY: [place] [address] PATHOLOGIST VICTORIAN LITERATURE PROFESSOR MISAEL FOX M.D. Performed By: #### T ACROLIMUS., CMP, CBC #### [facility] [address] [place] [address] [place] Tacrolimus [Mass/volume] in BloodOrdered By: Sharan Ayoub on 02-21-2024 Tacrolimus (Bld) [Mass/Vol] Sent to ref lab [facility] Urea nitrogen [Mass/volume] in Serum or PlasmaOrdered By: Sharan Ayoub on 02-21-2024 Urea nitrogen [Mass/Vol] 24 mg/dL Normal 7-25 [facility] Comment on above: Performed By: #### T ACROLIMUS., CMP, CBC #### [facility] [address] [place] [address] [place] Alanine aminotransferase [En zymatic activity/volume] in Serum or PlasmaOrdered By: Sharan Ayoub on 02-15-2024 ALT [Catalytic activity/Vol] 143 U/L High 7-52 [facility] Comment on above: Performed By: #### C MP, CBC, TACROLIMUS. #### [facility] [address] [place] [address] [place] Albumin [Mass/volume] in Ser um or Plasma by Bromocresol green (BCG) dye binding methoOrdered By: Sharan Ayoub on 02-15-2024 Albumin BCG dye [Mass/Vol] 3.4 g/dL Low 3.5-5.7 [facility] Alkaline phosphatase [Enzyma tic activity/volume] in Serum or PlasmaOrdered By: Sharan Ayoub on 02-15-2024 ALP [Catalytic activity/Vol] 153 U/L High 34-104 [facility] Comment on above: Result Comment: PERF ORMED BY: [place] [address] PATHOLOGIST VICTORIAN LITERATURE PROFESSOR MISAEL FOX M.D. Performed By: #### C MP, CBC, TACROLIMUS. #### [facility] [address] [place] [address] [place] Aspartate aminotransferase [ Enzymatic activity/volume] in Serum or PlasmaOrdered By: Sharan Ayoub on 02-15-2024 AST [Catalytic activity/Vol] 80 U/L High 13-39 [facility] Comment on above: Performed By: #### C MP, CBC, TACROLIMUS. #### [address] Automated basophil %Ordered By: Sharan Ayoub on 02-15-2024 Basophils/100 WBC (Bld) 0.5 % Normal . [facility] Comment on above: Performed By: #### C MP, CBC, TACROLIMUS. #### [address] Automated basophil countOrde red By: Sharan Ayoub on 02-15-2024 Basophils (Bld) [#/Vol] 0.0 10*3/uL Normal 0.0-0.2 [facility] Comment on above: Result Comment: PERF ORMED BY: [place] [address] PATHOLOGIST VICTORIAN LITERATURE PROFESSOR MISAEL FOX M.D. Performed By: #### C MP, CBC, TACROLIMUS. #### [address] Automated blood monocyte cou ntOrdered By: Sharan Ayoub on 02-15-2024 Monocytes (Bld) [#/Vol] 0.6 10*3/uL Normal 0.0-0.8 [facility] Comment on above: Performed By: #### C MP, CBC, TACROLIMUS. #### [address] Automated eosinophil %Ordere d By: Sharan Ayoub on 02-15-2024 Eosinophils/100 WBC (Bld) 0.6 % Normal . [facility] Comment on above: Performed By: #### C MP, CBC, TACROLIMUS. #### [address] Automated eosinophil countOr dered By: Sharan Ayoub on 02-15-2024 Eosinophils (Bld) [#/Vol] 0.0 10*3/uL Normal 0.0-0.45 [facility] Comment on above: Performed By: #### C MP, CBC, TACROLIMUS. #### [address] [place] [address] [place] Automated monocyte %Ordered By: Sharan Ayoub on 02-15-2024 Monocytes/100 WBC (Bld) 7.5 % Normal . [facility] Comment on above: Performed By: #### C MP, CBC, TACROLIMUS. #### [address] Automated neutrophil %Ordere d By: Sharan Ayoub on 02-15-2024 Neutrophils/100 WBC (Bld) 60.7 % Normal . [facility] Comment on above: Performed By: #### C MP, CBC, TACROLIMUS. #### [address] Bilirubin.total [Mass/volume ] in Serum or PlasmaOrdered By: Sharan Ayoub on 02-15-2024 Bilirubin [Mass/Vol] 2.4 mg/dL High 0.3-1.0 [facility] Comment on above: Samples from patient s who have taken Naproxen have shown spurious elevation in Total Bilirubin levels. A metabolite of Naproxen, O-desmethylnaproxen, has been shown to interfere with the Jendrassik-Grof method for measuring Total Bilirubin. Result Comment: Samp les from patients who have taken Naproxen have shown spurious elevation in Total Bilirubin levels. A metabolite of Naproxen, O-desmethylnaproxen, has been shown to interfere with the Jendrassik-Grof method for measuring Total Bilirubin. Performed By: #### C MP, CBC, TACROLIMUS. #### [address] Calcium [Mass/volume] in Ser um or PlasmaOrdered By: Sharan Ayoub on 02-15-2024 Calcium [Mass/Vol] 9.0 mg/dL Normal 8.6-10.3 [facility] Comment on above: Performed By: #### C MP, CBC, TACROLIMUS. #### [address] Carbon dioxide, total [Moles /volume] in Serum or PlasmaOrdered By: Sharan Ayoub on 05-16-2024 CO2 [Moles/Vol] 30.1 mmol/L Normal 21.0-31.0 [facility] Comment on above: Performed By: #### C MP, CBC, TACROLIMUS. #### [address] Chloride [Moles/volume] in S kasi or PlasmaOrdered By: Sharan Ayoub on 02-15-2024 Chloride [Moles/Vol] 104 mmol/L Normal 98-107 [facility] Comment on above: Performed By: #### C MP, CBC, TACROLIMUS. #### [address] Complete Blood Count Auto Di ffon 02-15-2024 Mean Corpuscular HGB Conc 33.6 g/dL Normal 32.5-35.6 [facility] Comment on above: Performed By: #### C MP, CBC, TACROLIMUS. #### [address] NRBC% 0.3 /100{WBC} Normal 0-0.5 [facility] Comment on above: Performed By: #### C MP, CBC, TACROLIMUS. #### [address] Comprehensive Metabolic Pane sarah 02-15-2024 Albumin [Mass/Vol] 3.4 g/dL Low 3.5-5.7 [facility] Comment on above: Performed By: #### C MP, CBC, TACROLIMUS. #### [address] GFR/1.73 sq M.predicted MDRD (S/P/Bld) [Vol rate/Area] mL/min/{1.73_m2} Normal [facility] Comment on above: Performed By: #### C MP, CBC, TACROLIMUS. #### [address] Creatinine [Mass/volume] in Serum or PlasmaOrdered By: Sharan Ayoub on 02-15-2024 Creatinine [Mass/Vol] 1.00 mg/dL Normal 0.70-1.30 [facility] Comment on above: Performed By: #### C MP, CBC, TACROLIMUS. #### [facility] [address] Erythrocyte distribution wid th [Ratio] by Automated countOrdered By: Sharan Ayoub on 02-15-2024 Erythrocyte distribution width (RBC) [Ratio] 15.3 % High 12.0-14.8 [facility] Comment on above: Performed By: #### C MP, CBC, TACROLIMUS. #### [facility] [address] Erythrocytes [#/volume] in B lood by Automated countOrdered By: Sharan Ayoub on 02-15-2024 RBC (Bld) [#/Vol] 4.52 10*6/uL Normal 3.90-5.60 [facility] Comment on above: Performed By: #### C MP, CBC, TACROLIMUS. #### [address] Glucose [Mass/volume] in Ser um or PlasmaOrdered By: Sharan Ayoub on 02-15-2024 Glucose [Mass/Vol] 238 mg/dL High 70-100 [facility] Comment on above: ADA recommended refe rence rangeRandom Glucose Reference Range is dependent on time and content of last meal. Glucose of more than 200 mg/dL in a nonstressed, ambulatory subject supports the diagnosis of Diabetes Mellitus. Result Comment: [place] om Glucose Reference Range is dependent on time and content of last meal. Glucose of more than 200 mg/dL in a nonstressed, ambulatory subject supports the diagnosis of Diabetes Mellitus. ADA recommended reference range Performed By: #### C MP, CBC, TACROLIMUS. #### [facility] [address] Hematocrit [Volume Fraction] of Blood by Automated countOrdered By: Sharan Ayoub on 02-15-2024 Hematocrit (Bld) [Volume fraction] 42.7 % Normal 38.8-50.0 [facility] Comment on above: Performed By: #### C MP, CBC, TACROLIMUS. #### [facility] [address] Hemoglobin [Mass/volume] in BloodOrdered By: Sharan Ayoub on 02-15-2024 Hemoglobin (Bld) [Mass/Vol] 14.3 g/dL Normal 13.0-17.0 [facility] Comment on above: Performed By: #### C MP, CBC, TACROLIMUS. #### [address] Leukocytes [#/volume] correc roderick for nucleated erythrocytes in Blood by Automated counOrdered By: Sharan Ayoub on 02-15-2024 WBC corrected for nucl RBC Auto (Bld) [#/Vol] 7.4 10*3/uL 4.1-10.5 [facility] Leukocytes [#/volume] in Blo od by Automated countOrdered By: Sharan Ayoub on 02-15-2024 WBC (Bld) [#/Vol] 7.4 10*3/uL Normal 4.1-10.5 [facility] Comment on above: Performed By: #### C MP, CBC, TACROLIMUS. #### [address] Lymphocytes [#/volume] in Bl ood by Automated countOrdered By: Sharan Ayoub on 02-15-2024 Lymphocytes (Bld) [#/Vol] 2.3 10*3/uL Normal 1.00-4.8 [facility] Comment on above: Performed By: #### C MP, CBC, TACROLIMUS. #### [place] [address] [place] Lymphocytes/100 leukocytes i n Blood by Automated countOrdered By: Sharan Ayoub on 02-15-2024 Lymphocytes/100 WBC (Bld) 30.7 % Normal . [facility] Comment on above: Performed By: #### C MP, CBC, TACROLIMUS. #### [address] MCH [Entitic mass] by Automa roderick countOrdered By: Sharan Ayoub on 02-15-2024 MCH (RBC) [Entitic mass] 31.7 pg Normal 27.5-35.2 [facility] Comment on above: Performed By: #### C MP, CBC, TACROLIMUS. #### [facility] [address] MCHC Auto (RBC) [Mass/Vol]Or dered By: Sharan Ayoub on 02-15-2024 MCHC (RBC) [Mass/Vol] 33.6 g/dL 32.5-35.6 [facility] MCV [Entitic volume] by Auto mated countOrdered By: Sharan Ayuob on 02-15-2024 MCV (RBC) [Entitic vol] 94.5 fL Normal 83.5-101 [facility] Comment on above: Performed By: #### C MP, CBC, TACROLIMUS. #### [facility] [address] Neutrophils [#/volume] in Bl ood by Automated countOrdered By: Sharan Ayoub on 02-15-2024 Neutrophils (Bld) [#/Vol] 4.5 10*3/uL Normal 1.8-7.7 [facility] Comment on above: Performed By: #### C MP, CBC, TACROLIMUS. #### [facility] [address] [place] [address] No Panel InformationOrdered By: Sharan Ayoub on 02-15-2024 Estimated GFR (CKD-EPI) > 60.0 mL/Min [facility] Creatinine Clearance (Chem N/A [facility] Nucleated erythrocytes [Pres ence] in Blood by Automated countOrdered By: Sharan Ayoub on 02-15-2024 Nucleated RBC Auto Ql (Bld) 0.3 /100{WBC} 0-0.5 [facility] Platelet mean volume [Entiti c volume] in Blood by Automated countOrdered By: Sharan Ayoub on 02-15-2024 Platelet mean volume (Bld) [Entitic vol] 10.6 fL High 6.6-10.1 [facility] Comment on above: Performed By: #### C MP, CBC, TACROLIMUS. #### [facility] [address] Platelets [#/volume] in Bloo d by Automated countOrdered By: Sharan Ayoub on 02-15-2024 Platelets (Bld) [#/Vol] 134 10*3/uL Low 150-450 [facility] Comment on above: Performed By: #### C MP, CBC, TACROLIMUS. #### [facility] [address] Potassium [Moles/volume] in Serum or PlasmaOrdered By: Sharan Ayoub on 02-15-2024 Potassium [Moles/Vol] 3.8 mmol/L Normal 3.5-5.1 [facility] Comment on above: Performed By: #### C MP, CBC, TACROLIMUS. #### [address] Protein [Mass/volume] in Ser um or PlasmaOrdered By: Sharan Ayoub on 02-15-2024 Protein [Mass/Vol] 6.5 g/dL Normal 6.4-8.9 [facility] Comment on above: Performed By: #### C MP, CBC, TACROLIMUS. #### [address] Serum globulin measurement b y calculation (mass/volume)Ordered By: Sharan Ayoub on 02-15-2024 Globulin (S) [Mass/Vol] 3.1 g/dL [facility] Comment on above: Performed By: #### C MP, CBC, TACROLIMUS. #### [facility] [address] [place] [address] Serum or plasma albumin/glob ulin mass ratioOrdered By: Sharan Ayoub on 02-15-2024 Albumin/Globulin [Mass ratio] 1.1 {ratio} [facility] Comment on above: Performed By: #### C MP, CBC, TACROLIMUS. #### [facility] [address] [place] [address] Serum or plasma anion gap de terminationOrdered By: Sharan Ayoub on 02-15-2024 Anion gap [Moles/Vol] 7.7 mmol/L Normal 6.0-15.0 [facility] Comment on above: Performed By: #### C MP, CBC, TACROLIMUS. #### [facility] [address] Sodium [Moles/volume] in Ser um or PlasmaOrdered By: Sharan Ayoub on 02-15-2024 Sodium [Moles/Vol] 138 mmol/L Normal 136-145 [facility] Comment on above: Performed By: #### C MP, CBC, TACROLIMUS. #### [facility] [address] [place] [address] Tacrolimuson 02-15-2024 Tacrolimus (Bld) [Mass/Vol] 7.2 ng/mL Normal <=15.0 [facility] Comment on above: Order Comment: NOTE: Result was obtained using a chemiluminescent microparticle immunoassay (CMIA) on the Stem Roller Or Crusher Operator i system. Optimal therapeutic ranges for immunosuppressant drugs depend upon an individual patient's current clinical state, type of organ transplant, time post-transplant, co-administration of other immunosuppressants, and other clinical factors. The results of this test should be correlated with additional clinical and laboratory data before changes in treatment regimens are made. Performed By: #### 1 1253-2 #### NORMA Cherry ([id number]) [facility] ([facility]) [id number] [place] [address] Tacrolimus (Transplant) No C hgon 02-15-2024 Tacrolimus (Transplant) No Chg Sent to Ref Lab Normal [facility] Comment on above: Result Comment: PERF ORMED BY: [place] [address] PATHOLOGIST VICTORIAN LITERATURE PROFESSOR MISAEL FOX M.D. Performed By: #### C MP, CBC, TACROLIMUS. #### [address] Tacrolimus [Mass/volume] in BloodOrdered By: Sharan Ayoub on 02-15-2024 Tacrolimus (Bld) [Mass/Vol] Sent to ref lab [facility] Urea nitrogen [Mass/volume] in Serum or PlasmaOrdered By: Sharan Ayoub on 02-15-2024 Urea nitrogen [Mass/Vol] 24 mg/dL Normal 7-25 [facility] Comment on above: Performed By: #### C MP, CBC, TACROLIMUS. #### [facility] [address] Alanine aminotransferase [En zymatic activity/volume] in Serum or PlasmaOrdered By: Sharan Ayoub on 02-06-2024 ALT [Catalytic activity/Vol] 141 U/L High 7-52 [facility] Comment on above: Performed By: #### C MP, CBC, TACROLIMUS. #### [place] [address] [place] Albumin [Mass/volume] in Ser um or Plasma by Bromocresol green (BCG) dye binding methoOrdered By: Sharan Ayoub on 02-06-2024 Albumin BCG dye [Mass/Vol] 3.1 g/dL Low 3.5-5.7 [facility] Alkaline phosphatase [Enzyma tic activity/volume] in Serum or PlasmaOrdered By: Sharan Ayoub on 02-06-2024 ALP [Catalytic activity/Vol] 179 U/L High 34-104 [facility] Comment on above: Result Comment: PERF ORMED BY: [place] [address] PATHOLOGIST VI[employer]IAN LITERATURE PROFESSOR MISAEL FOX M.D. Performed By: #### C MP, CBC, TACROLIMUS. #### [address] Aspartate aminotransferase [ Enzymatic activity/volume] in Serum or PlasmaOrdered By: Sharan Ayoub on 02-06-2024 AST [Catalytic activity/Vol] 73 U/L High 13-39 [facility] Comment on above: Performed By: #### C MP, CBC, TACROLIMUS. #### [address] Automated basophil %Ordered By: Sharan Ayoub on 02-06-2024 Basophils/100 WBC (Bld) 0.2 % Normal . [facility] Comment on above: Performed By: #### T ACROLIMUS., CMP, CBC #### [address] Automated basophil countOrde red By: Sharan Ayoub on 02-06-2024 Basophils (Bld) [#/Vol] 0.0 10*3/uL Normal 0.0-0.2 [facility] Comment on above: Result Comment: PERF ORMED BY: [place] [address] PATHOLOGIST VI[employer]IAN LITERATURE PROFESSOR MISAEL FOX M.D. Performed By: #### T ACROLIMUS., CMP, CBC #### [address] Automated blood monocyte cou ntOrdered By: Sharan Ayoub on 02-06-2024 Monocytes (Bld) [#/Vol] 0.5 10*3/uL Normal 0.0-0.8 [facility] Comment on above: Performed By: #### T ACROLIMUS., CMP, CBC #### [address] Automated eosinophil %Ordere d By: Sharan Ayoub on 02-06-2024 Eosinophils/100 WBC (Bld) 0.4 % Normal . [facility] Comment on above: Performed By: #### T ACROLIMUS., CMP, CBC #### [address] Automated eosinophil countOr dered By: Sharan Ayoub on 02-06-2024 Eosinophils (Bld) [#/Vol] 0.0 10*3/uL Normal 0.0-0.45 [facility] Comment on above: Performed By: #### T ACROLIMUS., CMP, CBC #### [address] Automated monocyte %Ordered By: Sharan Ayoub on 02-06-2024 Monocytes/100 WBC (Bld) 5.1 % Normal . [facility] Comment on above: Performed By: #### T ACROLIMUS., CMP, CBC #### [address] Automated neutrophil %Ordere d By: Sharan Ayoub on 02-06-2024 Neutrophils/100 WBC (Bld) 82.0 % Normal . [facility] Comment on above: Performed By: #### T ACROLIMUS., CMP, CBC #### [facility] [address] Bilirubin.total [Mass/volume ] in Serum or PlasmaOrdered By: Sharan Ayoub on 02-06-2024 Bilirubin [Mass/Vol] 2.2 mg/dL High 0.3-1.0 [facility] Comment on above: Samples from patient s who have taken Naproxen have shown spurious elevation in Total Bilirubin levels. A metabolite of Naproxen, O-desmethylnaproxen, has been shown to interfere with the Jendrassik-Grof method for measuring Total Bilirubin. Result Comment: Samp les from patients who have taken Naproxen have shown spurious elevation in Total Bilirubin levels. A metabolite of Naproxen, O-desmethylnaproxen, has been shown to interfere with the Jendrassik-Grof method for measuring Total Bilirubin. Performed By: #### C MP, CBC, TACROLIMUS. #### [facility] [address] [place] [address] [place] Calcium [Mass/volume] in Ser um or PlasmaOrdered By: Sharan Ayoub on 02-06-2024 Calcium [Mass/Vol] 9.0 mg/dL Normal 8.6-10.3 [facility] Comment on above: Performed By: #### C MP, CBC, TACROLIMUS. #### [facility] [address] [place] [address] [place] Carbon dioxide, total [Moles /volume] in Serum or PlasmaOrdered By: Sharan Ayoub on 02-06-2024 CO2 [Moles/Vol] 27.7 mmol/L Normal 21.0-31.0 [facility] Comment on above: Performed By: #### C MP, CBC, TACROLIMUS. #### [facility] [address] [place] [id number] [place] Chloride [Moles/volume] in S kasi or PlasmaOrdered By: Sharan Ayoub on 02-06-2024 Chloride [Moles/Vol] 106 mmol/L Normal 98-107 [facility] Comment on above: Performed By: #### C MP, CBC, TACROLIMUS. #### [address] Complete Blood Count Auto Di ffon 02-06-2024 Mean Corpuscular HGB Conc 33.4 g/dL Normal 32.5-35.6 [facility] Comment on above: Performed By: #### T ACROLIMUS., CMP, CBC #### [address] NRBC% 0.1 /100{WBC} Normal 0-0.5 [facility] Comment on above: Performed By: #### T ACROLIMUS., CMP, CBC #### [address] Comprehensive Metabolic Pane sarah 02-06-2024 Albumin [Mass/Vol] 3.1 g/dL Low 3.5-5.7 [facility] Comment on above: Performed By: #### C MP, CBC, TACROLIMUS. #### [address] GFR/1.73 sq M.predicted MDRD (S/P/Bld) [Vol rate/Area] mL/min/{1.73_m2} Normal [facility] Comment on above: Performed By: #### C MP, CBC, TACROLIMUS. #### [address] Creatinine [Mass/volume] in Serum or PlasmaOrdered By: Sharan Ayoub on 02-06-2024 Creatinine [Mass/Vol] 1.03 mg/dL Normal 0.70-1.30 [facility] Comment on above: Performed By: #### C MP, CBC, TACROLIMUS. #### [address] Erythrocyte distribution wid th [Ratio] by Automated countOrdered By: Sharan Ayoub on 02-06-2024 Erythrocyte distribution width (RBC) [Ratio] 15.4 % High 12.0-14.8 [facility] Comment on above: Performed By: #### T ACROLIMUS., CMP, CBC #### [address] Erythrocytes [#/volume] in B lood by Automated countOrdered By: Sharan Ayoub on 02-06-2024 RBC (Bld) [#/Vol] 4.38 10*6/uL Normal 3.90-5.60 [facility] Comment on above: Performed By: #### T ACROLIMUS., CMP, CBC #### [facility] [address] [place] [id number] [place] Glucose [Mass/volume] in Ser um or PlasmaOrdered By: Sharan Ayoub on 02-06-2024 Glucose [Mass/Vol] 178 mg/dL High 70-100 [facility] Comment on above: ADA recommended refe rence rangeRandom Glucose Reference Range is dependent on time and content of last meal. Glucose of more than 200 mg/dL in a nonstressed, ambulatory subject supports the diagnosis of Diabetes Mellitus. Result Comment: [place] Glucose Reference Range is dependent on time and content of last meal. Glucose of more than 200 mg/dL in a nonstressed, ambulatory subject supports the diagnosis of Diabetes Mellitus. ADA recommended reference range Performed By: #### C MP, CBC, TACROLIMUS. #### [facility] [address] [place] [address] [place] Hematocrit [Volume Fraction] of Blood by Automated countOrdered By: Sharan Ayoub on 02-06-2024 Hematocrit (Bld) [Volume fraction] 41.3 % Normal 38.8-50.0 [facility] Comment on above: Performed By: #### T ACROLIMUS., CMP, CBC #### [facility] [address] [place] [address] [place] Hemoglobin [Mass/volume] in BloodOrdered By: Sharan Ayoub on 02-06-2024 Hemoglobin (Bld) [Mass/Vol] 13.8 g/dL Normal 13.0-17.0 [facility] Comment on above: Performed By: #### T ACROLIMUS., CMP, CBC #### [facility] [address] [place] [id number] [place] Leukocytes [#/volume] correc roderick for nucleated erythrocytes in Blood by Automated counOrdered By: Sharan Ayoub on 02-06-2024 WBC corrected for nucl RBC Auto (Bld) [#/Vol] 10.1 10*3/uL 4.1-10.5 [facility] Leukocytes [#/volume] in Blo od by Automated countOrdered By: Sharan Ayoub on 02-06-2024 WBC (Bld) [#/Vol] 10.1 10*3/uL Normal 4.1-10.5 [facility] Comment on above: Performed By: #### T ACROLIMUS., CMP, CBC #### [facility] [address] [place] [address] [place] Lymphocytes [#/volume] in Bl ood by Automated countOrdered By: Sharan Ayoub on 02-06-2024 Lymphocytes (Bld) [#/Vol] 1.2 10*3/uL Normal 1.00-4.8 [facility] Comment on above: Performed By: #### T ACROLIMUS., CMP, CBC #### [facility] [address] [place] [address] [place] Lymphocytes/100 leukocytes i n Blood by Automated countOrdered By: Sharan Ayoub on 02-06-2024 Lymphocytes/100 WBC (Bld) 12.3 % Normal . [facility] Comment on above: Performed By: #### T ACROLIMUS., CMP, CBC #### [facility] [address] [place] [address] [place] MCH [Entitic mass] by Automa roderick countOrdered By: Sharan Ayoub on 02-06-2024 MCH (RBC) [Entitic mass] 31.5 pg Normal 27.5-35.2 [facility] Comment on above: Performed By: #### T ACROLIMUS., CMP, CBC #### [facility] [address] [place] [address] [place] MCHC Auto (RBC) [Mass/Vol]Or dered By: Sharan Ayoub on 02-06-2024 MCHC (RBC) [Mass/Vol] 33.4 g/dL 32.5-35.6 [facility] MCV [Entitic volume] by Auto mated countOrdered By: Sharan Ayoub on 02-06-2024 MCV (RBC) [Entitic vol] 94.3 fL Normal 83.5-101 [facility] Comment on above: Performed By: #### T ACROLIMUS., CMP, CBC #### [facility] [address] Neutrophils [#/volume] in Bl ood by Automated countOrdered By: Sharan Ayoub on 02-06-2024 Neutrophils (Bld) [#/Vol] 8.3 10*3/uL High 1.8-7.7 [facility] Comment on above: Performed By: #### T ACROLIMUS., CMP, CBC #### [facility] [address] [place] [address] No Panel InformationOrdered By: Sharan Ayoub on 02-06-2024 Estimated GFR (CKD-EPI) > 60.0 mL/Min [facility] Creatinine Clearance (Chem N/A [facility] Nucleated erythrocytes [Pres ence] in Blood by Automated countOrdered By: Sharan Ayoub on 02-06-2024 Nucleated RBC Auto Ql (Bld) 0.1 /100{WBC} 0-0.5 [facility] Platelet mean volume [Entiti c volume] in Blood by Automated countOrdered By: Sharan Ayoub on 02-06-2024 Platelet mean volume (Bld) [Entitic vol] 10.4 fL High 6.6-10.1 [facility] Comment on above: Performed By: #### T ACROLIMUS., CMP, CBC #### [facility] [address] Platelets [#/volume] in Bloo d by Automated countOrdered By: Sharan Ayoub on 02-06-2024 Platelets (Bld) [#/Vol] 120 10*3/uL Low 150-450 [facility] Comment on above: Performed By: #### T ACROLIMUS., CMP, CBC #### [facility] [address] [place] [address] Potassium [Moles/volume] in Serum or PlasmaOrdered By: Sharan Ayoub on 02-06-2024 Potassium [Moles/Vol] 3.6 mmol/L Normal 3.5-5.1 [facility] Comment on above: Performed By: #### C MP, CBC, TACROLIMUS. #### [facility] [address] [place] [address] Protein [Mass/volume] in Ser um or PlasmaOrdered By: Sharan Ayoub on 02-06-2024 Protein [Mass/Vol] 6.2 g/dL Low 6.4-8.9 [facility] Comment on above: Performed By: #### C MP, CBC, TACROLIMUS. #### [address] Serum globulin measurement b y calculation (mass/volume)Ordered By: Sharan Ayoub on 02-06-2024 Globulin (S) [Mass/Vol] 3.1 g/dL [facility] Comment on above: Performed By: #### C MP, CBC, TACROLIMUS. #### [address] Serum or plasma albumin/glob ulin mass ratioOrdered By: Sharan Ayoub on 02-06-2024 Albumin/Globulin [Mass ratio] 1.0 {ratio} [facility] Comment on above: Performed By: #### C MP, CBC, TACROLIMUS. #### [address] Serum or plasma anion gap de terminationOrdered By: Sharan Ayoub on 02-06-2024 Anion gap [Moles/Vol] 7.9 mmol/L Normal 6.0-15.0 [facility] Comment on above: Performed By: #### C MP, CBC, TACROLIMUS. #### [address] Sodium [Moles/volume] in Ser um or PlasmaOrdered By: Sharan Ayoub on 02-06-2024 Sodium [Moles/Vol] 138 mmol/L Normal 136-145 [facility] Comment on above: Performed By: #### C MP, CBC, TACROLIMUS. #### [facility] [address] [place] [address] Tacrolimuson 02-06-2024 Tacrolimus (Bld) [Mass/Vol] 7.5 ng/mL Normal <=15.0 [facility] Comment on above: Order Comment: NOTE: Result was obtained using a chemiluminescent microparticle immunoassay (CMIA) on the Stem Roller Or Crusher Operator i system. Optimal therapeutic ranges for immunosuppressant drugs depend upon an individual patient's current clinical state, type of organ transplant, time post-transplant, co-administration of other immunosuppressants, and other clinical factors. The results of this test should be correlated with additional clinical and laboratory data before changes in treatment regimens are made. Performed By: #### 1 1253-2 #### NORMA Cherry ([id number]) [facility] ([facility]) [address] [place] [address] Tacrolimus (Transplant) No C hgon 02-06-2024 Tacrolimus (Transplant) No Chg Sent to Ref Lab Normal [facility] Comment on above: Result Comment: PERF ORMED BY: [place] [address] PATHOLOGIST VICTORIAN LITERATURE PROFESSOR MISAEL FOX M.D. Performed By: #### C MP, CBC, TACROLIMUS. #### [facility] [address] [place] [address] Tacrolimus [Mass/volume] in BloodOrdered By: Sharan Ayoub on 02-06-2024 Tacrolimus (Bld) [Mass/Vol] Sent to ref lab [facility] Urea nitrogen [Mass/volume] in Serum or PlasmaOrdered By: Sharan Ayoub on 02-06-2024 Urea nitrogen [Mass/Vol] 27 mg/dL [facility] 04-25 [facility] Comment on above: Performed By: #### C MP, CBC, TACROLIMUS. #### [facility] [address] [place] [address] [place] Alanine aminotransferase [En zymatic activity/volume] in Serum or PlasmaOrdered By: Sharan Ayoub on 01-30-2024 ALT [Catalytic activity/Vol] 218 U/L [facility] Comment on above: Performed By: #### C MP, CBC, TACROLIMUS. #### [facility] [address] [place] [address] [place] Albumin [Mass/volume] in Ser um or Plasma by Bromocresol green (BCG) dye binding methoOrdered By: Sharan Ayoub on 01-30-2024 Albumin BCG dye [Mass/Vol] 3.5 g/dL 3.5-5.7 [facility] Alkaline phosphatase [Enzyma tic activity/volume] in Serum or PlasmaOrdered By: Sharan Ayoub on 01-30-2024 ALP [Catalytic activity/Vol] 233 U/L High 34-104 [facility] Comment on above: Result Comment: PERF ORMED BY: [place] [address] PATHOLOGIST VICTORIAN LITERATURE PROFESSOR MISAEL FOX M.D. Performed By: #### C MP, CBC, TACROLIMUS. #### [facility] [address] [place] [address] Aspartate aminotransferase [ Enzymatic activity/volume] in Serum or PlasmaOrdered By: Sharan Ayoub on 01-30-2024 AST [Catalytic activity/Vol] 127 U/L High 13-39 [facility] Comment on above: Performed By: #### C MP, CBC, TACROLIMUS. #### [facility] [address] [place] [address] Automated basophil %Ordered By: Sharan Ayoub on 01-30-2024 Basophils/100 WBC (Bld) 0.2 % Normal . [facility] Comment on above: Performed By: #### C MP, CBC, TACROLIMUS. #### [facility] [address] [place] [address] Automated basophil countOrde red By: Sharan Ayoub on 01-30-2024 Basophils (Bld) [#/Vol] 0.0 10*3/uL Normal 0.0-0.2 [facility] Comment on above: Result Comment: PERF ORMED BY: [place] [address] PATHOLOGIST VICTORIAN LITERATURE PROFESSOR MISAEL FOX M.D. Performed By: #### C MP, CBC, TACROLIMUS. #### [facility] [address] [place] [address] Automated blood monocyte cou ntOrdered By: Sharan Ayoub on 01-30-2024 Monocytes (Bld) [#/Vol] 0.3 10*3/uL Normal 0.0-0.8 [facility] Comment on above: Performed By: #### C MP, CBC, TACROLIMUS. #### [facility] [address] Automated eosinophil %Ordere d By: Sharan Ayoub on 01-30-2024 Eosinophils/100 WBC (Bld) 0.0 % Normal . [facility] Comment on above: Performed By: #### C MP, CBC, TACROLIMUS. #### [address] Automated eosinophil countOr dered By: Sharan Ayoub on 01-30-2024 Eosinophils (Bld) [#/Vol] 0.0 10*3/uL Normal 0.0-0.45 [facility] Comment on above: Performed By: #### C MP, CBC, TACROLIMUS. #### [address] Automated monocyte %Ordered By: Sharan Ayoub on 01-30-2024 Monocytes/100 WBC (Bld) 2.7 % Normal . [facility] Comment on above: Performed By: #### C MP, CBC, TACROLIMUS. #### [address] Automated neutrophil %Ordere d By: Sharan Ayoub on 01-30-2024 Neutrophils/100 WBC (Bld) 89.5 % Normal . [facility] Comment on above: Performed By: #### C MP, CBC, TACROLIMUS. #### [address] Bilirubin.total [Mass/volume ] in Serum or PlasmaOrdered By: Sharan Ayoub on 01-30-2024 Bilirubin [Mass/Vol] 2.4 mg/dL High 0.3-1.0 [facility] Comment on above: Samples from patient s who have taken Naproxen have shown spurious elevation in Total Bilirubin levels. A metabolite of Naproxen, O-desmethylnaproxen, has been shown to interfere with the Jendrassik-Grof method for measuring Total Bilirubin. Result Comment: Samp les from patients who have taken Naproxen have shown spurious elevation in Total Bilirubin levels. A metabolite of Naproxen, O-desmethylnaproxen, has been shown to interfere with the Jendrassik-Grof method for measuring Total Bilirubin. Performed By: #### C MP, CBC, TACROLIMUS. #### [address] Calcium [Mass/volume] in Ser um or PlasmaOrdered By: Sharan Ayoub on 01-30-2024 Calcium [Mass/Vol] 9.4 mg/dL Normal 8.6-10.3 [facility] Comment on above: Performed By: #### C MP, CBC, TACROLIMUS. #### [address] Carbon dioxide, total [Moles /volume] in Serum or PlasmaOrdered By: Sharan Ayoub on 01-30-2024 CO2 [Moles/Vol] 29.0 mmol/L Normal 21.0-31.0 [facility] Comment on above: Performed By: #### C MP, CBC, TACROLIMUS. #### [address] Chloride [Moles/volume] in S kasi or PlasmaOrdered By: Sharan Ayoub on 01-30-2024 Chloride [Moles/Vol] 102 mmol/L Normal 98-107 [facility] Comment on above: Performed By: #### C MP, CBC, TACROLIMUS. #### [address] Complete Blood Count Auto Di ffon 01-30-2024 Mean Corpuscular HGB Conc 33.2 g/dL Normal 32.5-35.6 [facility] Comment on above: Performed By: #### C MP, CBC, TACROLIMUS. #### [address] NRBC% 0.0 /100{WBC} Normal 0-0.5 [facility] Comment on above: Performed By: #### C MP, CBC, TACROLIMUS. #### [facility] [address] Comprehensive Metabolic Pane sarah 01-30-2024 Albumin [Mass/Vol] 3.5 g/dL Normal 3.5-5.7 [facility] Comment on above: Performed By: #### C MP, CBC, TACROLIMUS. #### [address] GFR/1.73 sq M.predicted MDRD (S/P/Bld) [Vol rate/Area] mL/min/{1.73_m2} Normal [facility] Comment on above: Performed By: #### C MP, CBC, TACROLIMUS. #### [address] Creatinine [Mass/volume] in Serum or PlasmaOrdered By: Sharan Ayoub on 01-30-2024 Creatinine [Mass/Vol] 0.95 mg/dL Normal 0.70-1.30 [facility] Comment on above: Performed By: #### C MP, CBC, TACROLIMUS. #### [address] Erythrocyte distribution wid th [Ratio] by Automated countOrdered By: Sharan Ayoub on 01-30-2024 Erythrocyte distribution width (RBC) [Ratio] 14.9 % High 12.0-14.8 [facility] Comment on above: Performed By: #### C MP, CBC, TACROLIMUS. #### [address] Erythrocytes [#/volume] in B lood by Automated countOrdered By: Sharan Ayoub on 01-30-2024 RBC (Bld) [#/Vol] 4.56 10*6/uL Normal 3.90-5.60 [facility] Comment on above: Performed By: #### C MP, CBC, TACROLIMUS. #### [address] Glucose [Mass/volume] in Ser um or PlasmaOrdered By: Sharan Ayoub on 01-30-2024 Glucose [Mass/Vol] 345 mg/dL High 70-100 [facility] Comment on above: ADA recommended refe rence rangeRandom Glucose Reference Range is dependent on time and content of last meal. Glucose of more than 200 mg/dL in a nonstressed, ambulatory subject supports the diagnosis of Diabetes Mellitus. Result Comment: [place] om Glucose Reference Range is dependent on time and content of last meal. Glucose of more than 200 mg/dL in a nonstressed, ambulatory subject supports the diagnosis of Diabetes Mellitus. ADA recommended reference range Performed By: #### C MP, CBC, TACROLIMUS. #### [address] Hematocrit [Volume Fraction] of Blood by Automated countOrdered By: Sharan Ayoub on 01-30-2024 Hematocrit (Bld) [Volume fraction] 43.5 % Normal 38.8-50.0 [facility] Comment on above: Performed By: #### C MP, CBC, TACROLIMUS. #### [address] Hemoglobin [Mass/volume] in BloodOrdered By: Sharan Ayoub on 01-30-2024 Hemoglobin (Bld) [Mass/Vol] 14.4 g/dL Normal 13.0-17.0 [facility] Comment on above: Performed By: #### C MP, CBC, TACROLIMUS. #### [address] Leukocytes [#/volume] correc roderick for nucleated erythrocytes in Blood by Automated counOrdered By: Sharan Ayoub on 01-30-2024 WBC corrected for nucl RBC Auto (Bld) [#/Vol] 11.1 10*3/uL High 4.1-10.5 [facility] Leukocytes [#/volume] in Blo od by Automated countOrdered By: Sharan Ayoub on 01-30-2024 WBC (Bld) [#/Vol] 11.1 10*3/uL High 4.1-10.5 [facility] Comment on above: Performed By: #### C MP, CBC, TACROLIMUS. #### [place] [address] [place] Lymphocytes [#/volume] in Bl ood by Automated countOrdered By: Sharan Ayoub on 01-30-2024 Lymphocytes (Bld) [#/Vol] 0.8 10*3/uL Low 1.00-4.8 [facility] Comment on above: Performed By: #### C MP, CBC, TACROLIMUS. #### [facility] [address] Lymphocytes/100 leukocytes i n Blood by Automated countOrdered By: Sharan Ayoub on 01-30-2024 Lymphocytes/100 WBC (Bld) 7.6 % Normal . [facility] Comment on above: Performed By: #### C MP, CBC, TACROLIMUS. #### [address] MCH [Entitic mass] by Automa roderick countOrdered By: Sharan Ayoub on 01-30-2024 MCH (RBC) [Entitic mass] 31.6 pg Normal 27.5-35.2 [facility] Comment on above: Performed By: #### C MP, CBC, TACROLIMUS. #### [address] MCHC Auto (RBC) [Mass/Vol]Or dered By: Sharan Ayoub on 01-30-2024 MCHC (RBC) [Mass/Vol] 33.2 g/dL 32.5-35.6 [facility] MCV [Entitic volume] by Auto mated countOrdered By: Sharan Ayoub on 01-30-2024 MCV (RBC) [Entitic vol] 95.3 fL Normal 83.5-101 [facility] Comment on above: Performed By: #### C MP, CBC, TACROLIMUS. #### [facility] [address] [place] [address] Neutrophils [#/volume] in Bl ood by Automated countOrdered By: Sharan Ayoub on 01-30-2024 Neutrophils (Bld) [#/Vol] 9.9 10*3/uL High 1.8-7.7 [facility] Comment on above: Performed By: #### C MP, CBC, TACROLIMUS. #### [address] No Panel InformationOrdered By: Sharan Ayoub on 01-30-2024 Estimated GFR (CKD-EPI) > 60.0 mL/Min [facility] Creatinine Clearance (Chem N/A [facility] Nucleated erythrocytes [Pres ence] in Blood by Automated countOrdered By: Sharan Ayoub on 01-30-2024 Nucleated RBC Auto Ql (Bld) 0.0 /100{WBC} 0-0.5 [facility] Platelet mean volume [Entiti c volume] in Blood by Automated countOrdered By: Sharan Ayoub on 01-30-2024 Platelet mean volume (Bld) [Entitic vol] 11.0 fL High 6.6-10.1 [facility] Comment on above: Performed By: #### C MP, CBC, TACROLIMUS. #### [address] Platelets [#/volume] in Bloo d by Automated countOrdered By: Sharan Ayoub on 01-30-2024 Platelets (Bld) [#/Vol] 152 10*3/uL Normal 150-450 [facility] Comment on above: Performed By: #### C MP, CBC, TACROLIMUS. #### [address] Potassium [Moles/volume] in Serum or PlasmaOrdered By: Sharan Ayoub on 01-30-2024 Potassium [Moles/Vol] 3.9 mmol/L Normal 3.5-5.1 [facility] Comment on above: Performed By: #### C MP, CBC, TACROLIMUS. #### [place] [address] [place] Protein [Mass/volume] in Ser um or PlasmaOrdered By: Sharan Ayoub on 01-30-2024 Protein [Mass/Vol] 6.7 g/dL Normal 6.4-8.9 [facility] Comment on above: Performed By: #### C MP, CBC, TACROLIMUS. #### [address] Serum globulin measurement b y calculation (mass/volume)Ordered By: Sharan Ayoub on 01-30-2024 Globulin (S) [Mass/Vol] 3.2 g/dL [facility] Comment on above: Performed By: #### C MP, CBC, TACROLIMUS. #### [facility] [address] [place] [address] Serum or plasma albumin/glob ulin mass ratioOrdered By: Sharan Ayoub on 01-30-2024 Albumin/Globulin [Mass ratio] 1.1 {ratio} [facility] Comment on above: Performed By: #### C MP, CBC, TACROLIMUS. #### [address] Serum or plasma anion gap de terminationOrdered By: Sharan Ayoub on 01-30-2024 Anion gap [Moles/Vol] 9.9 mmol/L Normal 6.0-15.0 [facility] Comment on above: Performed By: #### C MP, CBC, TACROLIMUS. #### [address] Sodium [Moles/volume] in Ser um or PlasmaOrdered By: Sharan Ayoub on 01-30-2024 Sodium [Moles/Vol] 137 mmol/L Normal 136-145 [facility] Comment on above: Performed By: #### C MP, CBC, TACROLIMUS. #### [address] Tacrolimuson 01-30-2024 Tacrolimus (Bld) [Mass/Vol] 7.3 ng/mL Normal <=15.0 [facility] Comment on above: Order Comment: NOTE: Result was obtained using a chemiluminescent microparticle immunoassay (CMIA) on the Stem Roller Or Crusher Operator i system. Optimal therapeutic ranges for immunosuppressant drugs depend upon an individual patient's current clinical state, type of organ transplant, time post-transplant, co-administration of other immunosuppressants, and other clinical factors. The results of this test should be correlated with additional clinical and laboratory data before changes in treatment regimens are made. Performed By: #### 1 1253-2 #### NORMA Cherry ([id number]) [facility] ([facility]) [address] [place] [address] Tacrolimus (Transplant) No C hgon 01-30-2024 Tacrolimus (Transplant) No Chg Normal [facility] Comment on above: Result Comment: See report. Scanned copy available in EMR. PERFORMED BY: [place] [address] PATHOLOGIST VICTORIAN LITERATURE PROFESSOR MISAEL FOX M.D. Performed By: #### C MP, CBC, TACROLIMUS. #### [facility] [address] Tacrolimus [Mass/volume] in BloodOrdered By: Sharan Ayoub on 01-30-2024 Tacrolimus (Bld) [Mass/Vol] See comment [facility] Comment on above: See report. Scanned copy available in EMR. Urea nitrogen [Mass/volume] in Serum or PlasmaOrdered By: Sharan Ayoub on 01-30-2024 Urea nitrogen [Mass/Vol] 28 mg/dL High 7-25 [facility] Comment on above: Performed By: #### C MP, CBC, TACROLIMUS. #### [facility] [address] Basic metabolic 2000 panelon 01-24-2024 Anion gap [Moles/Vol] 11 mmol/L 10 - 2 0 mmol/L [facility] Calcium [Mass/Vol] 8.8 mg/dL 8.6 - 10. 6 mg/dL [facility] Chloride [Moles/Vol] 105 mmol/L 98 - 10 7 mmol/L [facility] CO2 [Moles/Vol] 27 mmol/L 21 - 32 mmol/L [facility] Creatinine [Mass/Vol] 1.22 mg/dL 0.50 - 1.30 mg/dL [facility] GFR/1.73 sq M.predicted among non-blacks MDRD (S/P/Bld) [Vol rate/Area] 82 mL/min/{1.73_m2} - PINF [facility] Comment on above: Calculations of zander mated GFR are performed using the 2020 CKD-EPI Study Refit equation without the race variable for the IDMS-Traceable creatinine methods. https://jasn.asnjournals.org/content//ASN.528075 8530 Glucose [Mass/Vol] 231 mg/dL High 74 - 99 mg/dL [facility] Potassium [Moles/Vol] 4.1 mmol/L 3.5 - 5.3 mmol/L [facility] Sodium [Moles/Vol] 139 mmol/L 136 - 145 mmol/L [facility] Urea nitrogen [Mass/Vol] 32 mg/dL High 6 - 23 mg/dL [facility] Anion gap [Moles/Vol] 11 mmol/L Normal 10-20 [facility] Comment on above: Performed By: #### 2 4321-2 ####NORMA ADHIKARI L ([id number])[facility] ([facility])[address] [place] [address] Calcium [Mass/Vol] 8.8 mg/dL Normal 8.6-10.6 [facility] Comment on above: Performed By: #### 2 4321-2 ####NORMA ADHIKARI L ([id number])[facility] ([facility])[address] [place] [address] Chloride [Moles/Vol] 105 mmol/L Normal 98-107 [facility] Comment on above: Performed By: #### 2 4321-2 ####NORMA VILLAMOTZER L ([id number])[facility] ([facility])[address] [place] [address] CO2 [Moles/Vol] 27 mmol/L Normal 21-32 [facility] Comment on above: Performed By: #### 2 4321-2 ####NORMA ADHIKARI L ([id number])[facility] ([facility])[address] [place] [address] Creatinine [Mass/Vol] 1.22 mg/dL Normal 0.50-1.30 [facility] Comment on above: Performed By: #### 2 4321-2 ####NORMA RANGELTZGEM L ([id number])[facility] ([facility])[address] [place] [address] Glomerular filtration rate/1.73 sq M.predicted 82 mL/min/1.73m*2 Normal >60 [facility] Comment on above: Result Comment: Calc ulations of estimated GFR are performed using the 2020 CKD-EPI Study Refit equation without the race variable for the IDMS-Traceable creatinine methods. https://jasn.asnjournals.org/content//ASN.568733 5753 Performed By: #### 2 4321-2 ####NORMA Cherry ([id number])[facility] ([facility])[id number] [place] [address] Glucose [Mass/Vol] 231 mg/dL High 74-99 [facility] Comment on above: Performed By: #### 2 4321-2 ####NORMA ADHIKARI L ([id number])[facility] ([facility])[id number] [place] [address] Potassium [Moles/Vol] 4.1 mmol/L Normal 3.5-5.3 [facility] Comment on above: Performed By: #### 2 4321-2 ####NORMA ADHIKARI L ([id number])[facility] ([facility])[id number] [place] [address] Sodium [Moles/Vol] 139 mmol/L Normal 136-145 [facility] Comment on above: Performed By: #### 2 4321-2 ####NORMA VILLAMOKRISTAL L ([id number])[facility] ([facility])[id number] [place] [address] Urea nitrogen [Mass/Vol] 32 mg/dL High 6-23 [facility] Comment on above: Performed By: #### 2 4321-2 ####NORMA ADHIKARI L ([id number])[facility] ([facility])[id number] [place] [address] CBC W Auto Differential pane l (Bld)on 01-24-2024 Basophils (Bld) [#/Vol] 0.02 10*3/uL [facility] Basophils/100 WBC (Bld) 0.2 % 0.0 - 2.0 % [facility] Eosinophils (Bld) [#/Vol] 0.00 10*3/uL [facility] Eosinophils/100 WBC (Bld) 0.0 % 0.0 - 6.0 % [facility] Erythrocyte distribution width (RBC) [Ratio] 13.4 % 11.5 - 14.5 % [facility] Hematocrit (Bld) [Volume fraction] 41.2 % 41.0 - 52.0 % [facility] Hemoglobin (Bld) [Mass/Vol] 13.7 g/dL 13.5 - 17.5 g/dL [facility] Immature granulocytes (Bld) [#/Vol] 0.07 10*3/uL [facility] Immature granulocytes/100 WBC (Bld) 0.8 % 0.0 - 0.9 % [facility] Comment on above: Immature Granulocyte Count (IG) includes promyelocytes, myelocytes and metamyelocytes but does not include bands. Percent differential counts (%) should be interpreted in the context of the absolute cell counts (cells/UL). Interpretation and review of laboratory results Abnormal [facility] Lymphocytes (Bld) [#/Vol] 0.86 10*3/uL Low [facility] Lymphocytes/100 WBC (Bld) 10.2 % 13.0 - 44.0 % [facility] MCH (RBC) [Entitic mass] 30.9 pg 26.0 - 34.0 pg [facility] MCHC (RBC) [Mass/Vol] 33.3 g/dL 32.0 - 36.0 g/dL [facility] MCV (RBC) [Entitic vol] 93 fL 80 - 100 fL [facility] Monocytes (Bld) [#/Vol] 0.56 10*3/uL [facility] Monocytes/100 WBC (Bld) 6.6 % 2.0 - 10.0 % [facility] Neutrophils (Bld) [#/Vol] 6.94 10*3/uL [facility] Comment on above: Percent differential counts (%) should be interpreted in the context of the absolute cell counts (cells/uL). Neutrophils/100 WBC (Bld) 82.2 % 40.0 - 80.0 % [facility] Nucleated RBC/100 WBC (Bld) [Ratio] 0.0 % [facility] Platelets (Bld) [#/Vol] 153 10*3/uL [facility] RBC (Bld) [#/Vol] 4.44 10*6/uL Low [facility] WBC (Bld) [#/Vol] 8.5 10*3/uL [facility] Basophils (Bld) [#/Vol] 0.02 x10*3/uL Normal 0.00-0.10 [facility] Comment on above: Performed By: #### 5 7021-8 ####NORMA Cherry ([id number])[facility] ([facility])[address] [place] [address] Basophils/100 WBC (Bld) 0.2 % Normal 0.0-2.0 [facility] Comment on above: Performed By: #### 5 7021-8 ####NORMA Cherry ([id number])[facility] ([facility])[address] [place] [address] Eosinophils (Bld) [#/Vol] 0.00 x10*3/uL Normal 0.00-0.70 [facility] Comment on above: Performed By: #### 5 7021-8 ####NORMA Cherry ([id number])[facility] ([facility])[address] [place] [address] Eosinophils/100 WBC (Bld) 0.0 % Normal 0.0-6.0 [facility] Comment on above: Performed By: #### 5 7021-8 ####NORMA Cherry ([id number])[facility] ([facility])[address] [place] [address] Erythrocyte distribution width (RBC) [Ratio] 13.4 % Normal 11.5-14.5 [facility] Comment on above: Performed By: #### 5 7021-8 ####NORMA Cherry ([id number])[facility] ([facility])[address] [place] [address] Hematocrit (Bld) [Volume fraction] 41.2 % Normal 41.0-52.0 [facility] Comment on above: Performed By: #### 5 7021-8 ####NORMA Cherry ([id number])[facility] ([facility])[address] [place] [address] Hemoglobin (Bld) [Mass/Vol] 13.7 g/dL Normal 13.5-17.5 [facility] Comment on above: Performed By: #### 5 7021-8 ####NORMA Cherry ([id number])[facility] ([facility])[address] [place] [address] Immature granulocytes (Bld) [#/Vol] 0.07 x10*3/uL Normal 0.00-0.70 [facility] Comment on above: Performed By: #### 5 7021-8 ####NORMA Cherry ([id number])[facility] ([facility])[address] [place] [address] Immature granulocytes/100 WBC (Bld) 0.8 % Normal 0.0-0.9 [facility] Comment on above: Result Comment: Nicole ture Granulocyte Count (IG) includes promyelocytes, myelocytes and metamyelocytes but does not include bands. Percent differential counts (%) should be interpreted in the context of the absolute cell counts (cells/UL). Performed By: #### 5 7021-8 ####NORMA Cherry ([id number])[facility] ([facility])[address] [place] [address] Lymphocytes (Bld) [#/Vol] 0.86 x10*3/uL Low 1.20-4.80 [facility] Comment on above: Performed By: #### 5 7021-8 ####NORMA Cherry ([id number])[facility] ([facility])[address] [place] [address] Lymphocytes/100 WBC (Bld) 10.2 % Normal 13.0-44.0 [facility] Comment on above: Performed By: #### 5 7021-8 ####NORMA Cherry ([id number])[facility] ([facility])[address] [place] [address] MCH (RBC) [Entitic mass] 30.9 pg Normal 26.0-34.0 [facility] Comment on above: Performed By: #### 5 7021-8 ####NORMA Cherry ([id number])[facility] ([facility])[id number] [place] [address] MCHC (RBC) [Mass/Vol] 33.3 g/dL Normal 32.0-36.0 [facility] Comment on above: Performed By: #### 5 7021-8 ####NORMA Cherry ([id number])[facility] ([facility])[id number] [place] [address] MCV (RBC) [Entitic vol] 93 fL Normal 80-100 [facility] Comment on above: Performed By: #### 5 7021-8 ####NORMA Cherry ([id number])[facility] ([facility])[id number] [place] [address] Monocytes (Bld) [#/Vol] 0.56 x10*3/uL Normal 0.10-1.00 [facility] Comment on above: Performed By: #### 5 7021-8 ####NORMA Cherry ([id number])[facility] ([facility])[id number] [place] [address] Monocytes/100 WBC (Bld) 6.6 % Normal 2.0-10.0 [facility] Comment on above: Performed By: #### 5 7021-8 ####NORMA Cherry ([id number])[facility] ([facility])[id number] [place] [address] Neutrophils (Bld) [#/Vol] 6.94 x10*3/uL Normal 1.20-7.70 [facility] Comment on above: Result Comment: Perc ent differential counts (%) should be interpreted in the context of the absolute cell counts (cells/uL). Performed By: #### 5 7021-8 ####NORMA Cherry ([id number])[facility] ([facility])[address] [place] [address] Neutrophils/100 WBC (Bld) 82.2 % Normal 40.0-80.0 [facility] Comment on above: Performed By: #### 5 7021-8 ####NORMA ADHIKARI L ([id number])[facility] ([facility])[id number] [place] [address] Nucleated RBC/100 WBC (Bld) [Ratio] 0.0 /100 WBCs Normal 0.0-0.0 [facility] Comment on above: Performed By: #### 5 7021-8 ####NORMA Cherry ([id number])[facility] ([facility])[address] [place] [address] Platelets (Bld) [#/Vol] 153 x10*3/uL Normal 150-450 [facility] [facility] Comment on above: Performed By: #### 5 7021-8 ####NORMA Cherry ([id number])[facility] ([facility])[id number] [place] [address] RBC (Bld) [#/Vol] 4.44 x10*6/uL Low 4.50-5.90 [facility] Comment on above: Performed By: #### 5 7021-8 ####NORMA ADHIKARI L ([id number])[facility] ([facility])[address] [place] [address] WBC (Bld) [#/Vol] 8.5 x10*3/uL Normal 4.4-11.3 [facility] Comment on above: Performed By: #### 5 7021-8 ####NORMA ADHIKARI L ([id number])[facility] ([facility])[address] [place] [address] Coagulation tissue factor in ducedon 01-24-2024 PT Coag (PPP) [Time] 13.4 s High 9.8-12.8 [facility] Comment on above: Performed By: #### 5 902-2 ####NORMA Cherry ([id number])[facility] ([facility])[address] [place] [address] Glucose Test strip manual (B ld) [Mass/Vol]on 01-24-2024 Glucose [Mass/Vol] 298 mg/dL High 74 - 99 mg/dL [facility] Interpretation and review of laboratory results Abnormal [facility] Glucose [Mass/Vol] 298 mg/dL High 74-99 [facility] Comment on above: Performed By: #### 2 341-6 ####NORMA Cherry ([id number])[facility] ([facility])[address] [place] [address]92 Glucose [Mass/Vol] 284 mg/dL High 74 - 99 mg/dL [facility] Interpretation and review of laboratory results Abnormal [facility] Glucose [Mass/Vol] 284 mg/dL High 74-99 [facility] Comment on above: Performed By: #### 2 341-6 ####NORMA Cherry ([id number])[facility] ([facility])[address] [place] [address]9790 Glucose [Mass/Vol] 214 mg/dL High 74 - 99 mg/dL [facility] Interpretation and review of laboratory results Abnormal [facility] Glucose [Mass/Vol] 214 mg/dL High 74-99 [facility] Comment on above: Performed By: #### 2 341-6 ####NORMA Cherry ([id number])[facility] ([facility])[address] [place] [address]90[address] Glucose [Mass/Vol] 258 mg/dL High 74 - 99 mg/dL [facility] Interpretation and review of laboratory results Abnormal [facility] Glucose [Mass/Vol] 258 mg/dL High 74-99 [facility] Comment on above: Performed By: #### 2 341-6 ####NORMA Cherry ([id number])[facility] ([facility])[address] [place] [address] Hepatic function 2000 panelo n 01-24-2024 Albumin BCP dye [Mass/Vol] 2.9 g/dL Low 3.4 - 5.0 g/dL [facility] ALP [Catalytic activity/Vol] 194 U/L High 33 - 120 U/L [facility] ALT With P-5'-P [Catalytic activity/Vol] 140 U/L High 10 - 52 U/L [facility] Comment on above: Patients treated wit h Sulfasalazine may generate falsely decreased results for ALT. AST With P-5'-P [Catalytic activity/Vol] 113 U/L High 9 - 39 U/L [facility] Bilirubin [Mass/Vol] 2.1 mg/dL High 0.0 - 1 .2 mg/dL [facility] Bilirubin.direct [Mass/Vol] 1.1 mg/dL High 0.0 - 0.3 mg/dL [facility] Interpretation and review of laboratory results Abnormal [facility] Protein [Mass/Vol] 6.6 g/dL 6.4 - 8.2 g/dL [facility] Albumin BCP dye [Mass/Vol] 2.9 g/dL Low 3.4-5.0 [facility] Comment on above: Performed By: #### 2 4325-3 ####NORMA Cherry ([id number])[facility] ([facility])[address] [place] [address] ALP [Catalytic activity/Vol] 194 U/L High 33-120 [facility] Comment on above: Performed By: #### 2 4325-3 ####NORMA Cherry ([id number])[facility] ([facility])[address] [place] [address] ALT With P-5'-P [Catalytic activity/Vol] 140 U/L High 10-52 [facility] Comment on above: Result Comment: Batool ents treated with Sulfasalazine may generate falsely decreased results for ALT. Performed By: #### 2 4325-3 ####NORMA Cherry ([id number])[facility] ([facility])[address] [facility] [place] [address] AST With P-5'-P [Catalytic activity/Vol] 113 U/L High 9-39 [facility] Comment on above: Performed By: #### 2 4325-3 ####NORMA Cherry ([id number])[facility] ([facility])[address] [place] [address] Bilirubin [Mass/Vol] 2.1 mg/dL High 0.0-1.2 [facility] Comment on above: Performed By: #### 2 4325-3 ####NORMA Cherry ([id number])[facility] ([facility])[address] [place] [address] Bilirubin.direct [Mass/Vol] 1.1 mg/dL High 0.0-0.3 [facility] Comment on above: Performed By: #### 2 4325-3 ####NORMA Cherry ([id number])[facility] ([facility])[address] [place] [address] Protein [Mass/Vol] 6.6 g/dL Normal 6.4-8.2 [facility] Comment on above: Performed By: #### 2 4325-3 ####NORMA Cherry ([id number])[facility] ([facility])[address] [place] [address] Magnesiumon 01-24-2024 Magnesium [Mass/Vol] 1.81 mg/dL 1.60 - 2.40 mg/dL [facility] Magnesium [Mass/Vol] 1.81 mg/dL Normal 1.60-2.40 [facility] Comment on above: Performed By: #### 1 9123-9 ####NORMA Cherry ([id number])[facility] ([facility])[address] [place] [address] Magnesium [Mass/Vol]on 01-23 Interpretation and review of laboratory results Normal [facility] No Panel Informationon 01-23 Interpretation and review of laboratory results Abnormal [facility] PT Coag (PPP) [Time]on 01-23 INR Coag (PPP) [Relative time] 1.2 {INR} High 0.9 - 1.1 [facility] Interpretation and review of laboratory results Abnormal [facility] INR Coag (PPP) [Relative time] 1.2 High 0.9-1.1 [facility] Comment on above: Performed By: #### 5 902-2 ####NORMA Cherry ([id number])[facility] ([facility])[address] [place] [address] Phosphateon 01-24-2024 Phosphate [Mass/Vol] 2.0 mg/dL Low 2.5-4.9 [facility] Comment on above: Result Comment: The performance characteristics of phosphorus testing in heparinized plasma have been validated by the individual laboratory site where testing is performed. Testing on heparinized plasma is not approved by the FDA; however, such approval is not necessary. Performed By: #### 2 777-1 ####NORMA Cherry ([id number])[facility] ([facility])[address] [place] [address] Phosphoruson 01-24-2024 Phosphate [Mass/Vol] 2.0 mg/dL Low 2.5 - 4 .9 mg/dL [facility] Comment on above: The performance aditi acteristics of phosphorus testing in heparinized plasma have been validated by the individual laboratory site where testing is performed. Testing on heparinized plasma is not approved by the FDA; however, such approval is not necessary. Protime-INRon 01-24-2024 PT Coag (PPP) [Time] 13.[address] [facility] Tacrolimuson 01-24-2024 Tacrolimus (Bld) [Mass/Vol] 6.2 ng/mL Normal <=15.0 [facility] Comment on above: Order Comment: NOTE: Result was obtained using achemiluminescent microparticle immunoassay(CMIA) on the Stem Roller Or Crusher Operator i system.Optimal therapeutic ranges for immunosuppressantdrugs depend upon an individualpatient's current clinical state, type oforgan transplant, time post-transplant,co-administration of other immunosuppressants,and other clinical factors. The results ofthis test should be correlated with additionalclinical and laboratory data before changesin treatment regimens are made. Performed By: #### 1 1253-2 ####NORMA Cherry ([id number])[facility] ([facility])[address] [place] [address] Tacrolimus (Bld) [Mass/Vol]o n 01-24-2024 Interpretation and review of laboratory results Normal [facility] Work Phone: NOTE: Result was obt ained using a chemiluminescent microparticle immunoassay (CMIA) on the Stem Roller Or Crusher Operator i system. Optimal therapeutic ranges for immunosuppressant drugs depend upon an individual patient's current clinical state, type of organ transplant, time post-transplant, co-administration of other immunosuppressants, and other clinical factors. The results of this test should be correlated with additional clinical and laboratory data before changes in treatment regimens are made. [facility] Work Phone: [facility] Work Phone: Tacrolimus levelon Tacrolimus (Bld) [Mass/Vol] 6.2 ng/mL NINF - 15.0 ng/mL [facility] Work Phone: Basic metabolic 2000 panelon 01-23-2024 Anion gap [Moles/Vol] 13 mmol/L 10 - 2 0 mmol/L [facility] Calcium [Mass/Vol] 9.0 mg/dL 8.6 - 10. 6 mg/dL [facility] Chloride [Moles/Vol] 101 mmol/L 98 - 10 7 mmol/L [facility] CO2 [Moles/Vol] 28 mmol/L 21 - 32 mmol/L [facility] Creatinine [Mass/Vol] 0.94 mg/dL 0.50 - 1.30 mg/dL [facility] eGFR - PINF [facility] Comment on above: Calculations of zander mated GFR are performed using the 2020 CKD-EPI Study Refit equation without the race variable for the IDMS-Traceable creatinine methods. https://jasn.asnjournals.org/content/early/ASN.095654 0244 Glucose [Mass/Vol] 239 mg/dL High 74 - 99 mg/dL [facility] Interpretation and review of laboratory results Abnormal [facility] Potassium [Moles/Vol] 4.3 mmol/L 3.5 - 5.3 mmol/L [facility] Sodium [Moles/Vol] 138 mmol/L 136 - 145 mmol/L [facility] Urea nitrogen [Mass/Vol] 33 mg/dL High 6 - 23 mg/dL [facility] Anion gap [Moles/Vol] 13 mmol/L Normal 10-20 [facility] Comment on above: Performed By: #### 2 4321-2 ####NORMA ADHIKARI L ([id number])[facility] ([facility])[address] [place] [address] Calcium [Mass/Vol] 9.0 mg/dL Normal 8.6-10.6 [facility] Comment on above: Performed By: #### 2 4321-2 ####NORMA ADHIKARI L ([id number])[facility] ([facility])[address] [place] [address] Chloride [Moles/Vol] 101 mmol/L Normal 98-107 [facility] Comment on above: Performed By: #### 2 4321-2 ####NORMA VILLAMOTZER L ([id number])[facility] ([facility])[address] [place] [address] CO2 [Moles/Vol] 28 mmol/L Normal 21-32 [facility] Comment on above: Performed By: #### 2 4321-2 ####NORMA STEVENSONER L ([id number])[facility] ([facility])[address] [place] [address] Creatinine [Mass/Vol] 0.94 mg/dL Normal 0.50-1.30 [facility] Comment on above: Performed By: #### 2 4321-2 ####NORMA RANGELTZER L ([id number])[facility] ([facility])[address] [place] [address] GFR/1.73 sq M.predicted MDRD (S/P/Bld) [Vol rate/Area] mL/min/{1.73_m2} Normal >60 [facility] Comment on above: Result Comment: Calc ulations of estimated GFR are performed using the 2020 CKD-EPI Study Refit equation without the race variable for the IDMS-Traceable creatinine methods. https://jasn.asnjournals.org/content/early/ASN.872857 3876 Performed By: #### 2 4321-2 ####NORMA RANGELTZER L ([id number])[facility] ([facility])[address] [place] [address] Glucose [Mass/Vol] 239 mg/dL High 74-99 [facility] Comment on above: Performed By: #### 2 4321-2 ####NORMA VILLAMOTZER L ([id number])[facility] ([facility])[address] [place] [address] Potassium [Moles/Vol] 4.3 mmol/L Normal 3.5-5.3 [facility] Comment on above: Performed By: #### 2 4321-2 ####NORMA VILLAMOTZER L ([id number])[facility] ([facility])[address] [place] [address] Sodium [Moles/Vol] 138 mmol/L Normal 136-145 [facility] Comment on above: Performed By: #### 2 4321-2 ####NORMA VILLAMOTZER L ([id number])[facility] ([facility])[address] [place] [address] Urea nitrogen [Mass/Vol] 33 mg/dL High 6-23 [facility] Comment on above: Performed By: #### 2 4321-2 ####NORMA VILLAMOTZER L ([id number])[facility] ([facility])[address] [place] [address] CBC W Auto Differential pane l (Bld)on 01-23-2024 Basophils (Bld) [#/Vol] 0.01 10*3/uL [facility] Basophils/100 WBC (Bld) 0.2 % 0.0 - 2.0 % [facility] Eosinophils (Bld) [#/Vol] 0.00 10*3/uL [facility] Eosinophils/100 WBC (Bld) 0.0 % 0.0 - 6.0 % [facility] Erythrocyte distribution width (RBC) [Ratio] 13.5 % 11.5 - 14.5 % [facility] Hematocrit (Bld) [Volume fraction] 40.5 % Low 41.0 - 52.0 % [facility] Hemoglobin (Bld) [Mass/Vol] 13.1 g/dL Low 13.5 - 17.5 g/dL [facility] Immature granulocytes (Bld) [#/Vol] 0.05 10*3/uL [facility] Immature granulocytes/100 WBC (Bld) 0.8 % 0.0 - 0.9 % [facility] Comment on above: Immature Granulocyte Count (IG) includes promyelocytes, myelocytes and metamyelocytes but does not include bands. Percent differential counts (%) should be interpreted in the context of the absolute cell counts (cells/UL). Interpretation and review of laboratory results Abnormal [facility] Lymphocytes (Bld) [#/Vol] 0.66 10*3/uL Low [facility] Lymphocytes/100 WBC (Bld) 10.1 % 13.0 - 44.0 % [facility] MCH (RBC) [Entitic mass] 30.5 pg 26.0 - 34.0 pg [facility] MCHC (RBC) [Mass/Vol] 32.3 g/dL 32.0 - 36.0 g/dL [facility] MCV (RBC) [Entitic vol] 94 fL 80 - 100 fL [facility] Monocytes (Bld) [#/Vol] 0.21 10*3/uL [facility] Monocytes/100 WBC (Bld) 3.2 % 2.0 - 10.0 % [facility] Neutrophils (Bld) [#/Vol] 5.58 10*3/uL [facility] Comment on above: Percent differential counts (%) should be interpreted in the context of the absolute cell counts (cells/uL). Neutrophils/100 WBC (Bld) 85.7 % 40.0 - 80.0 % [facility] Nucleated RBC/100 WBC (Bld) [Ratio] 0.0 % [facility] Platelets (Bld) [#/Vol] 128 10*3/uL Low [facility] RBC (Bld) [#/Vol] 4.29 10*6/uL [facility] WBC (Bld) [#/Vol] 6.5 10*3/uL [facility] Basophils (Bld) [#/Vol] 0.01 x10*3/uL Normal 0.00-0.10 [facility] Comment on above: Performed By: #### 2 341-6 #### NORMA Cherry ([id number]) [facility] ([facility]) [address] [place] [address]887 Basophils/100 WBC (Bld) 0.2 % Normal 0.0-2.0 [facility] Comment on above: Performed By: #### 2 341-6 #### NORMA Cherry ([id number]) [facility] ([facility]) [address] [place] [address] 69363 Eosinophils (Bld) [#/Vol] 0.00 x10*3/uL Normal 0.00-0.70 [facility] Comment on above: Performed By: #### 2 341-6 #### NORMA Cherry ([id number]) [facility] ([facility]) [address] [address] 86026 Eosinophils/100 WBC (Bld) 0.0 % Normal 0.0-6.0 [facility] Comment on above: Performed By: #### 2 341-6 #### NORMA Cherry ([id number]) [facility] ([facility]) [address] [address] 04008 Erythrocyte distribution width (RBC) [Ratio] 13.5 % Normal 11.5-14.5 [facility] Comment on above: Performed By: #### 2 341-6 #### NORMA Cherry ([id number]) [facility] ([facility]) [address] [place] [address] Hematocrit (Bld) [Volume fraction] 40.5 % Low 41.0-52.0 [facility] Comment on above: Performed By: #### 2 341-6 #### NORMA Cherry ([id number]) [facility] ([facility]) [address] [place] [address] Hemoglobin (Bld) [Mass/Vol] 13.1 g/dL Low 13.5-17.5 [facility] Comment on above: Performed By: #### 2 341-6 #### NORMA Cherry ([id number]) [facility] ([facility]) [address] [address]142 Immature granulocytes (Bld) [#/Vol] 0.05 x10*3/uL Normal 0.00-0.70 [facility] Comment on above: Performed By: #### 2 341-6 #### NORMA Cherry ([id number]) [facility] ([facility]) [address] [address]367 Immature granulocytes/100 WBC (Bld) 0.8 % Normal 0.0-0.9 [facility] Comment on above: Result Comment: Nicole ture Granulocyte Count (IG) includes promyelocytes, myelocytes and metamyelocytes but does not include bands. Percent differential counts (%) should be interpreted in the context of the absolute cell counts (cells/UL). Performed By: #### 2 341-6 #### NORMA Cherry ([id number]) [facility] ([facility]) [address] [place] [address] Lymphocytes (Bld) [#/Vol] 0.66 x10*3/uL Low 1.20-4.80 [facility] Comment on above: Performed By: #### 2 341-6 #### NORMA Cherry ([id number]) [facility] ([facility]) [address] [place] [address] Lymphocytes/100 WBC (Bld) 10.1 % Normal 13.0-44.0 [facility] Comment on above: Performed By: #### 2 341-6 #### NORMA Cherry ([id number]) [facility] ([facility]) [address] [place] [address] 69415 MCH (RBC) [Entitic mass] 30.5 pg Normal 26.0-34.0 [facility] Comment on above: Performed By: #### 2 341-6 #### NORMA Cherry ([id number]) [facility] ([facility]) [address] [address] 16223 MCHC (RBC) [Mass/Vol] 32.3 g/dL Normal 32.0-36.0 [facility] Comment on above: Performed By: #### 2 341-6 #### NORMA Cherry ([id number]) [facility] ([facility]) [address] [place] [address] 80011 MCV (RBC) [Entitic vol] 94 fL Normal 80-100 [facility] Comment on above: Performed By: #### 2 341-6 #### NORMA Cherry ([id number]) [facility] ([facility]) [address] [place] [address] 31874 Monocytes (Bld) [#/Vol] 0.21 x10*3/uL Normal 0.10-1.00 [facility] Comment on above: Performed By: #### 2 341-6 #### NORMA Cherry ([id number]) [facility] ([facility]) [address] [address] 18507 Monocytes/100 WBC (Bld) 3.2 % Normal 2.0-10.0 [facility] Comment on above: Performed By: #### 2 341-6 #### NORMA Cherry ([id number]) [facility] ([facility]) [address] [place] [address] 94482 Neutrophils (Bld) [#/Vol] 5.58 x10*3/uL Normal 1.20-7.70 [facility] Comment on above: Result Comment: Perc ent differential counts (%) should be interpreted in the context of the absolute cell counts (cells/uL). Performed By: #### 2 341-6 #### NORMA Cherry ([id number]) [facility] ([facility]) [address] [address] 07338 Neutrophils/100 WBC (Bld) 85.7 % Normal 40.0-80.0 [facility] Comment on above: Performed By: #### 2 341-6 #### NORMA Cherry ([id number]) [facility] ([facility]) [address] [address] 12676 Nucleated RBC/100 WBC (Bld) [Ratio] 0.0 /100 WBCs Normal 0.0-0.0 [facility] Comment on above: Performed By: #### 2 341-6 #### NORMA Cherry ([id number]) [facility] ([facility]) [address] [place] [address] 97737 Platelets (Bld) [#/Vol] 128 x10*3/uL Low 150-450 [facility] Comment on above: Performed By: #### 2 341-6 #### NORMA Cherry ([id number]) [facility] ([facility]) [address] [place] [address] 09346 RBC (Bld) [#/Vol] 4.29 x10*6/uL Low 4.50-5.90 [facility] Comment on above: Performed By: #### 2 341-6 #### NORMA Cherry ([id number]) [facility] ([facility]) [address] [place] [address] 65707 WBC (Bld) [#/Vol] 6.5 x10*3/uL Normal 4.4-11.3 [facility] Comment on above: Performed By: #### 2 341-6 #### NORMA Cherry ([id number]) [facility] ([facility]) [address] [place] [address] 50035 Coagulation tissue factor in ducedon 01-23-2024 PT Coag (PPP) [Time] 13.9 s High 9.8-12.8 [facility] Comment on above: Performed By: #### 2 341-6 #### NORMA Cherry ([id number]) [facility] ([facility]) [address] [place] [address] 71408 Glucose Test strip manual (B ld) [Mass/Vol]on 01-23-2024 Glucose [Mass/Vol] 303 mg/dL High 74 - 99 mg/dL [facility] Interpretation and review of laboratory results Abnormal [facility] Glucose [Mass/Vol] 303 mg/dL High 74-99 [facility] Comment on above: Performed By: #### 2 341-6 ####NORMA Cherry ([id number])[facility] ([facility])[address] [place] [address] 95992 Glucose [Mass/Vol] 337 mg/dL High 74 - 99 mg/dL [facility] Interpretation and review of laboratory results Abnormal [facility] Glucose [Mass/Vol] 337 mg/dL High 74-99 [facility] Comment on above: Performed By: #### 2 341-6 ####NORMA Cherry ([id number])[facility] ([facility])[address] [place] [address] 37502 Glucose [Mass/Vol] 203 mg/dL High 74 - 99 mg/dL [facility] Interpretation and review of laboratory results Abnormal [facility] Glucose [Mass/Vol] 203 mg/dL High 74-99 [facility] Comment on above: Performed By: #### 2 341-6 #### NORMA Cherry ([id number]) [facility] ([facility]) [address] [place] [address] 22884 Glucose [Mass/Vol] 267 mg/dL High 74 - 99 mg/dL [facility] Interpretation and review of laboratory results Abnormal [facility] Glucose [Mass/Vol] 267 mg/dL High 74-99 [facility] Comment on above: Performed By: #### 2 341-6 #### NORMA Cherry ([id number]) [facility] ([facility]) [address] [place] [address] 95920 Glucose [Mass/Vol] 248 mg/dL High 74 - 99 mg/dL [facility] Interpretation and review of laboratory results Abnormal [facility] Glucose [Mass/Vol] 248 mg/dL High 74-99 [facility] Comment on above: Performed By: #### 2 341-6 #### NORMA Cherry ([id number]) [facility] ([facility]) [address] [place], [place] [address] Hepatic function 2000 panelo n 01-23-2024 Albumin BCP dye [Mass/Vol] 2.9 g/dL Low 3.4 - 5.0 g/dL [facility] ALP [Catalytic activity/Vol] 188 U/L High 33 - 120 U/L [facility] ALT With P-5'-P [Catalytic activity/Vol] 116 U/L High 10 - 52 U/L [facility] Comment on above: Patients treated wit h Sulfasalazine may generate falsely decreased results for ALT. AST With P-5'-P [Catalytic activity/Vol] 93 U/L High 9 - 39 U/L [facility] Bilirubin [Mass/Vol] 2.1 mg/dL High 0.0 - 1 .2 mg/dL [facility] Bilirubin.direct [Mass/Vol] 1.1 mg/dL High 0.0 - 0.3 mg/dL [facility] Interpretation and review of laboratory results Abnormal [facility] Protein [Mass/Vol] 6.6 g/dL 6.4 - 8.2 g/dL [facility] Albumin BCP dye [Mass/Vol] 2.9 g/dL Low 3.4-5.0 [facility] Comment on above: Performed By: #### 2 4325-3 ####NORMA Cherry ([id number])[facility] ([facility])[id number] [place] [address] ALP [Catalytic activity/Vol] 188 U/L High 33-120 [facility] Comment on above: Performed By: #### 2 4325-3 ####NORMA Cherry ([id number])[facility] ([facility])[address] [place] [address] ALT With P-5'-P [Catalytic activity/Vol] 116 U/L High 10-52 [facility] Comment on above: Result Comment: Batool ents treated with Sulfasalazine may generate falsely decreased results for ALT. Performed By: #### 2 4325-3 ####NORMA Cherry ([id number])[facility] ([facility])[address] [place] [address] AST With P-5'-P [Catalytic activity/Vol] 93 U/L High 9-39 [facility] Comment on above: Performed By: #### 2 4325-3 ####NORMA Cherry ([id number])[facility] ([facility])[address] [place] [address] Bilirubin [Mass/Vol] 2.1 mg/dL High 0.0-1.2 [facility] Comment on above: Performed By: #### 2 4325-3 ####NORMA Cherry ([id number])[facility] ([facility])[address] [place] [address] Bilirubin.direct [Mass/Vol] 1.1 mg/dL High 0.0-0.3 [facility] Comment on above: Performed By: #### 2 4325-3 ####NORMA Cherry ([id number])[facility] ([facility])[address] [place] [address] Protein [Mass/Vol] 6.6 g/dL Normal 6.4-8.2 [facility] Comment on above: Performed By: #### 2 4325-3 ####NORMA Cherry ([id number])[facility] ([facility])[address] [place] [address] Magnesiumon 01-23-2024 Magnesium [Mass/Vol] 1.67 mg/dL 1.60 - 2.40 mg/dL [facility] Magnesium [Mass/Vol] 1.67 mg/dL Normal 1.60-2.40 [facility] Comment on above: Performed By: #### 1 9123-9 ####NORMA Cherry ([id number])[facility] ([facility])[address] [place] [address] Natriuretic peptide B [Mass/ Vol]on 01-23-2024 Interpretation and review of laboratory results Normal [facility] Natriuretic peptide B (Bld) [Mass/Vol] 89 pg/mL 0 - 99 pg/mL [facility] <100 pg/mL - Heart f ailure unlikely 100-299 pg/mL - Intermediate probability of acute heart failure exacerbation. Correlate with clinical context and patient history. >=300 pg/mL - Heart Failure likely. Correlate with clinical context and patient history. Biotin interference may cause falsely decreased results. Patients taking a Biotin dose of up to 5 mg/day should refrain from taking Biotin for 24 hours before sample collection. Providers may contact their local laboratory for further information. [facility] No Panel Informationon 01-22 [facility] Interpretation and review of laboratory results Normal [facility] PT Coag (PPP) [Time]on 01-22 INR Coag (PPP) [Relative time] 1.2 {INR} High 0.9 - 1.1 [facility] Interpretation and review of laboratory results Abnormal [facility] INR Coag (PPP) [Relative time] 1.2 High 0.9-1.1 [facility] Comment on above: Performed By: #### 2 341-6 #### NORMA Cherry ([id number]) [facility] ([facility]) [address] [place] [address] Phosphateon 01-23-2024 Phosphate [Mass/Vol] 3.6 mg/dL Normal 2.5-4.9 [facility] Comment on above: Result Comment: The performance characteristics of phosphorus testing in heparinized plasma have been validated by the individual laboratory site where testing is performed. Testing on heparinized plasma is not approved by the FDA; however, such approval is not necessary. Performed By: #### 2 777-1 ####NORMA Cherry ([id number])[facility] ([facility])[address] [place] [address] Phosphoruson 01-23-2024 Phosphate [Mass/Vol] 3.6 mg/dL 2.5 - 4 .9 mg/dL [facility] Comment on above: The performance aditi acteristics of phosphorus testing in heparinized plasma have been validated by the individual laboratory site where testing is performed. Testing on heparinized plasma is not approved by the FDA; however, such approval is not necessary. Protime-INRon 01-23-2024 PT Coag (PPP) [Time] 13.9 s [facility] Surgical pathology studyon 0 01-23-2024 Surgical pathology study Pathology report.total SEE COMMENT Surgical Pathology Case: [id number] Authorizing Provider: Zhane Vaughan MD Collected: 01/23/2024 09 Ordering Location: [facility] Received: 01/23/2024 [address] [place] [address] Pathologist: Crissy Wilson MD PhD Specimen: LIVER TRANSPLANT BIOPSY Path report.final diagnosis SEE COMMENT A. LIVER TRANSPLANT BIOPSY: -Liver tissue with portal & lobular inflammation, bile duct damage, cholestasis, and periportal to focal bridging fibrosis (2-3) Note: The liver tissue shows expanded portal tracts with mixed inflammatory cells including lymphocytes, eosinophils, and plasma cells. Several lymphoid aggregates are also present. Portal bile duct injury is evident with enlarged nuclei and eosinophilic cytoplasm. There is no significant interface activity. The lobules exhibit scattered sinusoidal lymphocytic inflammation and focal areas of cholestasis with foamy hepatocytes consistent with bile infarcts. In some areas, the lobules display a vague nodularity with atrophy and hypertrophy of hepatic plates suggestive of regenerative hyperplasia. The hepatocytes demonstrate anisocytosis with variable nuclear sizes, indicating injury/reactive changes. No definitive endotheliitis is identified in this biopsy, arguing against an ongoing acute cellular rejection. Bile ducts are identified in 9 of 12 portal tracts. Compared to last week's biopsy (), lobular inflammation has decreased but cholestasis is more prominent in the current biopsy. The patient's previous three liver biopsies (, , [id number]) have been reviewed and compare to the current biopsy. The histologic findings are somewhat similar as they consistently demonstrate portal and lobular inflammation, bile duct injury, and hepatocyte injury, with the most recent biopsies showing a higher stage of fibrosis. The top differential diagnoses include chronic rejection and recurrent autoimmune hepatitis. Serology for autoantibodies is recommended. Special stains: Iron negative PAS with digestion no cytoplasmic eosinophilic globules Trichrome periportal to focal bridging fibrosis Reticulin focal collapsed liver parenchyma Laboratory comment By the signature on this report, the individual or group listed as making the Final Interpretation/Diagnosis certifies that they have reviewed this case. Path report.addendum SEE COMMENT Immunostain for CK7 and CK19 demonstrate the presence of bile ducts. Addendum electronically signed by Crissy Wilson MD PhD on 03/29/2024 at 1:37 PM Path report.relevant Hx Hx liver transplant 04/08/2016, prior path with concern for rejection, evaluation s/p starting treatment Path report.gross observation SEE COMMENT A: Received in formalin, labeled with the patient's name and hospital number and liver Tx BX , are 2 fragments of light stevenson cylindrical soft tissue measuring 1.3 and 1.6 cm in length by less than 0.1 cm in diameter. The specimen is submitted in toto in one cassette. [facility] ASR DISCLAIMER One or more of the reagents used to perform assays on this specimen MAY have contained components considered to be analyte specific reagents (ASR's). ASR's have not been cleared or approved by the U.S. Food and Drug Administration. These assays were developed and their performance characteristics determined by the Department of Pathology at [facility]. The FDA does not require this test to go through premarket FDA review. This test is used for clinical purposes. It should not be regarded as investigational or for research. This laboratory is certified under the Clinical Laboratory Improvement Amendments (CLIA) as qualified to perform high complexity clinical laboratory testing. The assays were performed with appropriate positive and negative controls which stained appropriately. Normal [facility] TRANSTHORACIC ECHO (TTE) COM PLETEon 01-23-2024 TRANSTHORACIC ECHO (TTE) COMPLETE [facility], [address] [place] [address] and TRANSTHORACIC ECHOCARDIOGRAM REPORT Patient Name: LULY GIRON Reading Physician: [id number] Bethanie Ochoa MD Study Date: 01/23/2024 Ordering Provider: [id number] OLIVIA Liberty CASTANEDA MRN/PID: [id number] Fellow: Nurse: Date of /Age: 6 1995 / 28 years Sheet Metal Layout Worker: Luz Collado RDCS Gender: M Additional Staff: Height: 177.80 cm Admit Date: 01/18/2024 Weight: 55.34 kg Admission Status: Inpatient - Priority discharge BSA / BMI: 1.69 m2 / 17.50 kg/m2 Department Location: [facility] Non Invasive Blood Pressure: 123 /77 mmHg Study Type: TRANSTHORACIC ECHO (TTE) COMPLETE Diagnosis/ICD: Encounter for screening for cardiovascular disorders-Z13.6 Indication: acute rejection of liver transplant, elevated LFTs, complications, organ transplant CPT Code: Echo Complete w Full Doppler-[id number] Patient History: Pertinent History: S/p liver transplant 2015, concern for rejection, DM, HTN. Study Detail: The following Echo studies were performed: 2D, M-Mode, Doppler and color flow. PHYSICIAN INTERPRETATION: Left Ventricle: The left ventricular systolic function is normal, with an estimated ejection fraction of 65-70%. There are no regional wall motion abnormalities. The left ventricular cavity size is normal. Spectral Doppler shows a normal pattern of left ventricular diastolic filling. Left Atrium: The left atrium is normal in size. Right Ventricle: The right ventricle is normal in size. There is normal right ventricular global systolic function. Right Atrium: The right atrium is normal in size. Aortic Valve: The aortic valve is trileaflet. There is no evidence of aortic valve regurgitation. The peak instantaneous gradient of the aortic valve is 12.8 mmHg. The mean gradient of the aortic valve is 5.9 mmHg. Mitral Valve: The mitral valve is normal in structure. There is trace mitral valve regurgitation. Tricuspid Valve: The tricuspid valve is structurally normal. There is trace tricuspid regurgitation. The right ventricular systolic pressure is unable to be estimated. Pulmonic Valve: The pulmonic valve is not well visualized. The pulmonic valve regurgitation was not well visualized. Pericardium: There is a trivial pericardial effusion. Aorta: The aortic root is normal. Systemic Veins: The inferior vena cava appears to be of normal size. There is IVC inspiratory collapse greater than 50%. In comparison to the previous echocardiogram(s): Compared with the prior exam from 04/06/2016 the LV appears to be more dynamic today. Prior LVEF was 55%. Prior exam includded an agitated saline contrast study that was positive for intrapulmonary shunt. No saline contrast study was performed today. Otherwise there are no significant changes. CONCLUSIONS: 1. Left ventricular systolic function is normal with a 65-70% estimated ejection fraction. 2. Compared with the prior exam from 04/06/2016 the LV appears to be more dynamic today. Prior LVEF was 55%. Prior exam includded an agitated saline contrast study that was positive for intrapulmonary shunt. No saline contrast study was performed today. Otherwise there are no significant changes. QUANTITATIVE DATA SUMMARY: 2D MEASUREMENTS: Normal Ranges: Ao Root d: 2.40 cm (2.0-3.7cm) IVSd: 0.68 cm (0.6-1.1cm) LVPWd: 0.59 cm (0.6-1.1cm) LVIDd: 4.87 cm (3.9-5.9cm) LVIDs: 3.07 cm LV Mass Index: 57.4 g/m2 LV % FS 37.0 % LA VOLUME: Normal Ranges: LA Vol A4C: 46.1 ml (22+/-6mL/m2) LA Vol Index A4C: 27.2ml/m2 LA Area A4C: 16.3 cm2 LA Major [place] A4C: 4.9 cm LA Major [place] A2C: 3.5 cm RA VOLUME BY A/L METHOD: Normal Ranges: RA Area A4C: 11.9 cm2 AORTA MEASUREMENTS: Normal Ranges: Ao Sinus, d: 2.70 cm (2.1-3.5cm) Asc Ao, d: 2.40 cm (2.1-3.4cm) LV SYSTOLIC FUNCTION BY 2D PLANIMETRY (MOD): Normal Ranges: EF-A4C View: 66.5 % (>=55%) EF-A2C View: 62.4 % EF-Biplane: 65.6 % LV DIASTOLIC FUNCTION: Normal Ranges: MV Peak E: 0.91 m/s (0.7-1.2 m/s) MV Peak A: 0.55 m/s (0.42-0.7 m/s) E/A Ratio: 1.67 (1.0-2.2) MV e' 0.18 m/s (>8.0) MV lateral e' 0.22 m/s MV medial e' 0.15 m/s MV A Dur: 106.57 msec E/e' Ratio: 4.92 (<8.0) MV DT: 235 msec (150-240 msec) MITRAL VALVE: Normal Ranges: MV DT: 235 msec (150-240msec) AORTIC VALVE: Normal Ranges: AoV Vmax: 1.79 m/s (<=1.7m/s) AoV Peak P.8 mmHg (<20mmHg) AoV Mean P.9 mmHg (1.7-11.5mmHg) LVOT Max Donnell: 1.48 m/s (<=1.1m/s) AoV VTI: 31.59 cm (18-25cm) LVOT VTI: 23.04 cm LVOT Diameter: 1.91 cm (1.8-2.4cm) AoV Area, VTI: 2.09 cm2 (2.5-5.5cm2) AoV Area,Vmax: 2.38 cm2 (2.5-4.5cm2) AoV Dimensionless Index: 0.73 RIGHT VENTRICLE: RV Basal 3.60 cm RV Mid 2.50 cm RV Major 7.4 cm TAPSE: 25.0 mm RV s' 0.19 m/s TRICUSPID VALVE/RVSP: Normal Ranges: IVC Diam: 1.60 cm PULMONIC VALVE: Normal Ranges: PV Accel Time: 175 msec (>120ms) (more content not included)... Normal [facility] Tacrolimuson 01-23-2024 Tacrolimus (Bld) [Mass/Vol] 6.7 ng/mL Normal <=15.0 [facility] Comment on above: Order Comment: Sched ule with ultrasound of liver with doppler studies Performed By: #### 1 1253-2 ####NORMA Cherry ([id number])[facility] ([facility])[address] [place] [address] Tacrolimus (Bld) [Mass/Vol]O rdered By: Maxwell Vazquez on 01-23-2024 Interpretation and review of laboratory results Normal [facility] NOTE: Result was obt ained using a chemiluminescent microparticle immunoassay (CMIA) on the Stem Roller Or Crusher Operator i system. Optimal therapeutic ranges for immunosuppressant drugs depend upon an individual patient's current clinical state, type of organ transplant, time post-transplant, co-administration of other immunosuppressants, and other clinical factors. The results of this test should be correlated with additional clinical and laboratory data before changes in treatment regimens are made. [facility] Tacrolimus levelOrdered By: Maxwell Vazquez on 01-23-2024 Tacrolimus (Bld) [Mass/Vol] 6.7 ng/mL NINF - 15.0 ng/mL [facility] US GUIDED NEEDLE LIVER BIOPS Yon 01-23-2024 US GUIDED NEEDLE LIVER BIOPSY Interpreted By: Татьяна Eid and Meyers Emily STUDY: US GUIDED NEEDLE LIVER BIOPSY; 01/23/2024 8:52 am INDICATION: Signs/Symptoms:Liver biopsy, concern for acute rejection in liver transplant patient. PLEASE SEND FOR STAT BIOPSY RESULTS TO PATHOLOGY. COMPARISON: Liver biopsy 01/17/2024, ultrasound liver 01/09/2024 ACCESSION NUMBER(S): [id number] ORDERING CLINICIAN: MYA DAWSON TECHNIQUE: INTERVENTIONALIST(S): Dr. Татьяна Eid MD CONSENT: The patient/patient's POA/next of kin was informed of the nature of the proposed procedure. The purposes, alternatives, risks, and benefits were explained and discussed. All questions were answered and consent was obtained. SEDATION: Moderate conscious IV sedation services (supervision of administration, induction, and maintenance) were provided by the physician performing the procedure with intravenous fentanyl 100mcg and versed 2mg from 8:30 a.m.-8:51 a.m.. The physician was assisted by an independent trained observer, an interventional radiology nurse, in the continuous monitoring of patient level of consciousness and physiologic status. MEDICATION/CONTRAST: No additional. TIME OUT: A time out was performed immediately prior to procedure start with the interventional team, correctly identifying the patient name, date of , MRN, procedure, anatomy (including marking of site and side), patient position, procedure consent form, relevant laboratory and imaging test results, antibiotic administration, safety precautions, and procedure-specific equipment needs. COMPLICATIONS: No immediate adverse events identified. FINDINGS: The patient was placed in the supine position. Limited sonographic images of the right upper quadrant were obtained for purposes of needle guidance, which demonstrated slight interval increase in perihepatic ascites when compared to prior examination. Otherwise, slightly nodular contour of the transplant hepatic parenchyma, similar when compared to recent diagnostic ultrasound 01/09/2024. The area of concern was prepped and draped under sterile technique. 1% lidocaine was injected subcutaneously and then into the deeper tissues surrounding the targeted area for biopsy. An 18 gauge core biopsy needle was passed via a 17 gauge coaxial introducer needle to obtain a total of 2 core samples. Postprocedure images demonstrate no evidence for hemorrhage. The patient tolerated the procedure well and there were no immediate complications. Specimen(s) sent to pathology. IMPRESSION: 1. Status post successful ultrasound guided core needle biopsy of transplant liver. Specimen(s) Sent to pathology. 2. Slight increase in perihepatic ascites when compared to prior examination. I was present for and/or performed the critical portions of the procedure and immediately available throughout the entire procedure. I personally reviewed the image(s) / study and interpretation. I agree with the findings as stated. Performed and dictated at [facility]. MACRO: None. Signed by: Татьяна Eid 01/23/2024 12:37 PM Dictation workstation: [id number] [facility] US Guidance for biopsy of Ami mattson 01-23-2024 1. Status post succe ssful ultrasound guided core needle biopsy of transplant liver. Specimen(s) Sent to pathology. 2. Slight increase in perihepatic ascites when compared to prior examination. I was present for and/or performed the critical portions of the procedure and immediately available throughout the entire procedure. I personally reviewed the image(s) / study and interpretation. I agree with the findings as stated. Performed and dictated at [facility]. MACRO: None. Signed by: Татьяна Eid 01/23/2024 12:37 PM Dictation workstation: [id number] MMODAL Interpreted By: Татьяна Eid and Meyers Emily STUDY: US GUIDED NEEDLE LIVER BIOPSY; 01/23/2024 8:52 am INDICATION: Signs/Symptoms:Liver biopsy, concern for acute rejection in liver transplant patient. PLEASE SEND FOR STAT BIOPSY RESULTS TO PATHOLOGY. COMPARISON: Liver biopsy 01/17/2024, ultrasound liver 01/09/2024 ACCESSION NUMBER(S): [id number] ORDERING CLINICIAN: MYA DAWSON TECHNIQUE: INTERVENTIONALIST(S): Dr. Татьяна Eid MD CONSENT: The patient/patient's POA/next of kin was informed of the nature of the proposed procedure. The purposes, alternatives, risks, and benefits were explained and discussed. All questions were answered and consent was obtained. SEDATION: Moderate conscious IV sedation services (supervision of administration, induction, and maintenance) were provided by the physician performing the procedure with intravenous fentanyl 100mcg and versed 2mg from 8:30 a.m.-8:51 a.m.. The physician was assisted by an independent trained observer, an interventional radiology nurse, in the continuous monitoring of patient level of consciousness and physiologic status. MEDICATION/CONTRAST: No additional. TIME OUT: A time out was performed immediately prior to procedure start with the interventional team, correctly identifying the patient name, date of , MRN, procedure, anatomy (including marking of site and side), patient position, procedure consent form, relevant laboratory and imaging test results, antibiotic administration, safety precautions, and procedure-specific equipment needs. COMPLICATIONS: No immediate adverse events identified. FINDINGS: The patient was placed in the supine position. Limited sonographic images of the right upper quadrant were obtained for purposes of needle guidance, which demonstrated slight interval increase in perihepatic ascites when compared to prior examination. Otherwise, slightly nodular contour of the transplant hepatic parenchyma, similar when compared to recent diagnostic ultrasound 01/09/2024. The area of concern was prepped and draped under sterile technique. 1% lidocaine was injected subcutaneously and then into the deeper tissues surrounding the targeted area for biopsy. An 18 gauge core biopsy needle was passed via a 17 gauge coaxial introducer needle to obtain a total of 2 core samples. Postprocedure images demonstrate no evidence for hemorrhage. The patient tolerated the procedure well and there were no immediate complications. Specimen(s) sent to pathology. MMODAL Татьяна Eid MD - 01/23/2024 Interpreted By: Татьяна Eid and Meyers Emily STUDY: US GUIDED NEEDLE LIVER BIOPSY; 01/23/2024 8:52 am INDICATION: Signs/Symptoms:Liver biopsy, concern for acute rejection in liver transplant patient. PLEASE SEND FOR STAT BIOPSY RESULTS TO PATHOLOGY. COMPARISON: Liver biopsy 01/17/2024, ultrasound liver 01/09/2024 ACCESSION NUMBER(S): [id number] ORDERING CLINICIAN: MYA DAWSON TECHNIQUE: INTERVENTIONALIST(S): Dr. Татьяна Eid MD CONSENT: The patient/patient's POA/next of kin was informed of the nature of the proposed procedure. The purposes, alternatives, risks, and benefits were explained and discussed. All questions were answered and consent was obtained. SEDATION: Moderate conscious IV sedation services (supervision of administration, induction, and maintenance) were provided by the physician performing the procedure with intravenous fentanyl 100mcg and versed 2mg from 8:30 a.m.-8:51 a.m.. The physician was assisted by an independent trained observer, an interventional radiology nurse, in the continuous monitoring of patient level of consciousness and physiologic status. MEDICATION/CONTRAST: No additional. TIME OUT: A time out was performed immediately prior to procedure start with the interventional team, correctly identifying the patient name, date of , MRN, procedure, anatomy (including marking of site and side), patient position, procedure consent form, relevant laboratory and imaging test results, antibiotic administration, safety precautions, and procedure-specific equipment needs. COMPLICATIONS: No immediate adverse events identified. FINDINGS: The patient was placed in the supine position. Limited sonographic images of the right upper quadrant were obtained for purposes of needle guidance, which demonstrated slight interval increase in perihepatic ascites when compared to prior examination. Otherwise, slightly nodular contour of the transplant hepatic parenchyma, similar when compared to recent diagnostic ultrasound 01/09/2024. The area of concern was prepped and draped under sterile technique. 1% lidocaine was injected subcutaneously and then into the deeper tissues surrounding the targeted area for biopsy. An 18 gauge core biopsy needle was passed via a 17 gauge coaxial introducer needle to obtain a total of 2 core samples. Postprocedure images demonstrate no evidence for hemorrhage. The patient tolerated the procedure well and there were no immediate complications. Specimen(s) sent to pathology. IMPRESSION: 1. Status post successful ultrasound guided core needle biopsy of transplant liver. Specimen(s) Sent to pathology. 2. Slight increase in perihepatic ascites when compared to prior examination. I was present for and/or performed the critical portions of the procedure and immediately available throughout the entire procedure. I personally reviewed the image(s) / study and interpretation. I agree with the findings as stated. Performed and dictated at [facility]. MACRO: None. Signed by: Татьяна Eid 01/23/2024 12:37 PM Dictation workstation: [id number] [facility] Work Phone: [phone] Radiology Study observation (narrative) [facility] Work Phone: [phone] US Guidance for biopsy of Ami Tayered By: Татьяан Eid on 01-23-2024 [facility] Work Phone: [phone] US Heart TransthoracicOrdere d By: Bethanie Ochoa on 01-23-2024 Aortic Valve Area by Continuity of Peak Velocity 2.38 cm2 [facility] Work Phone: [phone] Aortic Valve Area by Continuity of VTI 2.09 cm2 [facility] Work Phone: [phone] AV mn grad 5.9 mmHg [facility] Work Phone: [phone] AV pk grad 12.8 mmHg [facility] Work Phone: [phone] AV pk donnell 1.79 m/s [facility] Work Phone: [phone] LV A4C EF 66.5 [facility] Work Phone: [phone] LV Biplane EF 66 % [facility] Work Phone: [phone] LVIDd 4.87 cm [facility] Work Phone: [phone] LVOT diam 1.91 cm [facility] Work Phone: [phone] MV avg E/e' ratio 4.92 [facility] Work Phone: [phone] MV E/A ratio 1.67 [facility] Work Phone: [phone] RV free wall pk S' 19.00 cm/s [facility] Work Phone: [phone] Tricuspid annular plane systolic excursion 2.5 cm [facility] Work Phone: [phone] [facility] Work Phone: [phone] US Heart Transthoracicon [facility], [address] [place] [address] and TRANSTHORACIC ECHOCARDIOGRAM REPORT Patient Name: LULY GIRON Reading Physician: [id number] Bethanie Ochoa MD Study Date: 01/23/2024 Ordering Provider: [id number] OLIVIA CASTANEDA MRN/PID: [id number] Fellow: Nurse: Date of /Age: 6 1995 / 28 years Sheet Metal Layout Worker: Luz Collado RD Gender: M Additional Staff: Height: 177.80 cm Admit Date: 01/18/2024 Weight: 55.34 kg Admission Status: Inpatient - Priority discharge BSA / BMI: 1.69 m2 / 17.50 kg/m2 Department Location: [facility] Non Invasive Blood Pressure: 123 /77 mmHg Study Type: TRANSTHORACIC ECHO (TTE) COMPLETE Diagnosis/ICD: Encounter for screening for cardiovascular disorders-Z13.6 Indication: acute rejection of liver transplant, elevated LFTs, complications, organ transplant CPT Code: Echo Complete w Full Doppler-71671 Patient History: Pertinent History: S/p liver transplant 2016, concern for rejection, DM, HTN. Study Detail: The following Echo studies were performed: 2D, M-Mode, Doppler and color flow. PHYSICIAN INTERPRETATION: Left Ventricle: The left ventricular systolic function is normal, with an estimated ejection fraction of 65-70%. There are no regional wall motion abnormalities. The left ventricular cavity size is normal. Spectral Doppler shows a normal pattern of left ventricular diastolic filling. Left Atrium: The left atrium is normal in size. Right Ventricle: The right ventricle is normal in size. There is normal right ventricular global systolic function. Right Atrium: The right atrium is normal in size. Aortic Valve: The aortic valve is trileaflet. There is no evidence of aortic valve regurgitation. The peak instantaneous gradient of the aortic valve is 12.8 mmHg. The mean gradient of the aortic valve is 5.9 mmHg. Mitral Valve: The mitral valve is normal in structure. There is trace mitral valve regurgitation. Tricuspid Valve: The tricuspid valve is structurally normal. There is trace tricuspid regurgitation. The right ventricular systolic pressure is unable to be estimated. Pulmonic Valve: The pulmonic valve is not well visualized. The pulmonic valve regurgitation was not well visualized. Pericardium: There is a trivial pericardial effusion. Aorta: The aortic root is normal. Systemic Veins: The inferior vena cava appears to be of normal size. There is IVC inspiratory collapse greater than 50%. In comparison to the previous echocardiogram(s): Compared with the prior exam from 04/06/2016 the LV appears to be more dynamic today. Prior LVEF was 55%. Prior exam includded an agitated saline contrast study that was positive for intrapulmonary shunt. No saline contrast study was performed today. Otherwise there are no significant changes. CONCLUSIONS: 1. Left ventricular systolic function is normal with a 65-70% estimated ejection fraction. 2. Compared with the prior exam from 04/06/2016 the LV appears to be more dynamic today. Prior LVEF was 55%. Prior exam includded an agitated saline contrast study that was positive for intrapulmonary shunt. No saline contrast study was performed today. Otherwise there are no significant changes. QUANTITATIVE DATA SUMMARY: 2D MEASUREMENTS: Normal Ranges: Ao Root d: 2.40 cm (2.0-3.7cm) IVSd: 0.68 cm (0.6-1.1cm) LVPWd: 0.59 cm (0.6-1.1cm) LVIDd: 4.87 cm (3.9-5.9cm) LVIDs: 3.07 cm LV Mass Index: 57.4 g/m2 LV % FS 37.0 % LA VOLUME: Normal Ranges: LA Vol A4C: 46.1 ml (22+/-6mL/m2) LA Vol Index A4C: 27.2ml/m2 LA Area A4C: 16.3 cm2 LA [place] A4C: 4.9 cm LA [place] A2C: 3.5 cm RA VOLUME BY A/L METHOD: Normal Ranges: RA Area A4C: 11.9 cm2 AORTA MEASUREMENTS: Normal Ranges: Ao Sinus, d: 2.70 cm (2.1-3.5cm) Asc Ao, d: 2.40 cm (2.1-3.4cm) LV SYSTOLIC FUNCTION BY 2D PLANIMETRY (MOD): Normal Ranges: EF-A4C View: 66.5 % (>=55%) EF-A2C View: 62.4 % EF-Biplane: 65.6 % LV DIASTOLIC FUNCTION: Normal Ranges: MV Peak E: 0.91 m/s (0.7-1.2 m/s) MV Peak A: 0.55 m/s (0.42-0.7 m/s) E/A Ratio: 1.67 (1.0-2.2) MV e' 0.18 m/s (>8 (more content not included)... 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 [facility] Gender: M Additional Staff: Height: 177.80 cm Admit Date: 01/18/2024 Weight: 55.34 kg Admission Status: Inpatient - Priority discharge BSA / BMI: 1.69 m2 / 17.50 kg/m2 Department Location: [facility] Non Invasive Blood Pressure: 123 /77 mmHg Study Type: TRANSTHORACIC ECHO (TTE) COMPLETE Diagnosis/ICD: Encounter for screening for cardiovascular disorders-Z13.6 Indication: acute rejection of liver transplant, elevated LFTs, complications, organ transplant CPT Code: Echo Complete w Full Doppler-[id number] Patient History: Pertinent History: S/p liver transplant 2016, concern for rejection, DM, HTN. Study Detail: The following Echo studies were performed: 2D, M-Mode, Doppler and color flow. PHYSICIAN INTERPRETATION: Left Ventricle: The left ventricular systolic function is normal, with an estimated ejection fraction of 65-70%. There are no regional wall motion abnormalities. The left ventricular cavity size is normal. Spectral Doppler shows a normal pattern of left ventricular diastolic filling. Left Atrium: The left atrium is normal in size. Right Ventricle: The right ventricle is normal in size. There is normal right ventricular global systolic function. Right Atrium: The right atrium is normal in size. Aortic Valve: The aortic valve is trileaflet. There is no evidence of aortic valve regurgitation. The peak instantaneous gradient of the aortic valve is 12.8 mmHg. The mean gradient of the aortic valve is 5.9 mmHg. Mitral Valve: The mitral valve is normal in structure. There is trace mitral valve regurgitation. Tricuspid Valve: The tricuspid valve is structurally normal. There is trace tricuspid regurgitation. The right ventricular systolic pressure is unable to be estimated. Pulmonic Valve: The pulmonic valve is not well visualized. The pulmonic valve regurgitation was not well visualized. Pericardium: There is a trivial pericardial effusion. Aorta: The aortic root is normal. Systemic Veins: The inferior vena cava appears to be of normal size. There is IVC inspiratory collapse greater than 50%. In comparison to the previous echocardiogram(s): Compared with the prior exam from 04/06/2016 the LV appears to be more dynamic today. Prior LVEF was 55%. Prior exam includded an agitated saline contrast study that was positive for intrapulmonary shunt. No saline contrast study was performed today. Otherwise there are no significant changes. CONCLUSIONS: 1. Left ventricular systolic function is normal with a 65-70% estimated ejection fraction. 2. Compared with the prior exam from 04/06/2016 the LV appears to be more dynamic today. Prior LVEF was 55%. Prior exam includded an agitated saline contrast study that was positive for intrapulmonary shunt. No saline contrast study was performed today. Otherwise there are no significant changes. QUANTITATIVE DATA SUMMARY: 2D MEASUREMENTS: Normal Ranges: Ao Root d: 2.40 cm (2.0-3.7cm) IVSd: 0.68 cm (0.6-1.1cm) LVPWd: 0.59 cm (0.6-1.1cm) LVIDd: 4.87 cm (3.9-5.9cm) LVIDs: 3.07 cm LV Mass Index: 57.4 g/m2 LV % FS 37.0 % LA VOLUME: Normal Ranges: LA Vol A4C: 46.1 ml (22+/-6mL/m2) LA Vol Index A4C: 27.2ml/m2 LA Area A4C: 16.3 cm2 LA [place] A4C: 4.9 cm LA [place] A2C: 3.5 cm RA VOLUME BY A/L METHOD: Normal Ranges: RA Area A4C: 11.9 cm2 AORTA MEASUREMENTS: Normal Ranges: Ao Sinus, d: 2.70 cm (2.1-3.5cm) Asc Ao, d: 2.40 cm (2.1-3.4cm) LV SYSTOLIC FUNCTION BY 2D PLANIMETRY (MOD): Normal Ranges: EF-A4C View: 66.5 % (>=55%) EF-A2C View: 62.4 % EF-Biplane: 65.6 % LV DIASTOLIC FUNCTION: Normal Ranges: MV Peak E: 0.91 m/s (0.7-1.2 m/s) MV Peak A: 0.55 m/s (0.42-0.7 m/s) E/A Ratio: 1.67 (1.0-2.2) MV e' 0.18 m/s (>8.0) MV lateral e' 0.22 m/s MV medial e' 0.15 m/s MV A Dur: 106.57 msec E/e' Ratio: 4.92 (<8.0) MV DT: 235 msec (150-240 msec) MITRAL VALVE: Normal Ranges: MV DT: 235 msec (150-240msec) AORTIC VALVE: Normal Ranges: AoV Vmax: 1.79 m/s (<=1.7m/s) AoV Peak P.8 mmHg (<20mmHg) AoV Mean P.9 mmHg (1.7-11.5mmHg) LVOT Max Donnell: 1.48 m/s (<=1.1m/s) AoV VTI: 31.59 cm (18-25cm) LVOT VTI: 23.04 cm LVOT Diameter: 1.91 cm (1.8-2.4cm) AoV Area, VTI: 2.09 cm2 (2.5-5.5cm2) AoV Area,Vmax: 2.38 cm2 (2.5-4.5cm2) AoV Dimensionless Index: 0.73 RIGHT VENTRICLE: RV Basal 3.60 cm RV Mid 2.50 cm RV Major 7.4 cm TAPSE: 25.0 mm RV s' 0.19 m/s TRICUSPID VALV (more content not included)... [facility] Work Phone: US LIVER WITH DOPPLERon 01-01 US LIVER WITH DOPPLER Interpreted By: Татьяна Baez, STUDY: US LIVER WITH DOPPLER; 01/23/2024 11:19 am INDICATION: Signs/Symptoms:RUQ pain. COMPARISON: Ultrasound liver dated 01/09/2024 ACCESSION NUMBER(S): [id number] ORDERING CLINICIAN: DEBO URIAS TECHNIQUE: Multiple images of the right upper quadrant were obtained. Perrin scale, color Doppler and spectral Doppler waveform analysis was performed. FINDINGS: LIVER: The liver measures 11.7 cm no evidence of focal hepatic lesion is seen. Echogenic reflector in segment 5 of the liver, status post liver biopsy with Gel-Foam deposit. No evidence of bleeding status post liver biopsy. GALLBLADDER: Surgically absent BILIARY SYSTEM: No evidence of intra or extrahepatic biliary dilatation is identified; the common bile duct measures 0.3 cm. DOPPLER EVALUATION: HEPATIC ARTERIES: Hepatic artery and its right and left branches RI's are estimated at 0.7, .72 and 0.7, respectively. PORTAL VEIN: Portal vein is patent and measures 1.16. There is normal respiratory variation. Portal vein velocities are calculated as follows: main portal vein 33.5 cm/s, antegrade flow; left portal vein branch 19.9 cm/s, antegrade flow; right portal vein anterior branch 19.2, antegrade flow; right portal vein posterior branch 17.1, antegrade flow. The splenic vein is also patent. HEPATIC VEIN: The right, middle and left hepatic veins are patent and demonstrate triphasic antegrade flow. IVC appears also patent. PANCREAS: Grossly unremarkable RIGHT KIDNEY: The right kidney measures 10.6 cm in length. Multiple nonobstructing stones are noted in the right kidney without gross evidence of hydronephrosis. The largest in the midpole measuring approximately 7 mm. SPLEEN: The spleen measures 12.5 cm and is grossly unremarkable. Splenule medially is noted. PERITONEUM AND RETROPERITONEUM: Trace amount of perihepatic ascites as well as ascites within the perisplenic space are noted. This was not visualized on the study dated 01/09/2024. Similar finding were noted during ultrasound-guided biopsy dated 01/16 and 01/23/2024. IMPRESSION: 1. Trace amount of ascites. 2. Essentially normal Doppler evaluation. 3. Non-obstructing stones right kidney MACRO: None Signed by: Татьяна Eid 01/23/2024 12:57 PM Dictation workstation: [id number] [facility] US liver with doppleron 01-01 Interpreted By: Татьяна Eid, STUDY: US LIVER WITH DOPPLER; 01/23/2024 11:19 am INDICATION: Signs/Symptoms:RUQ pain. COMPARISON: Ultrasound liver dated 01/09/2024 ACCESSION NUMBER(S): [id number] ORDERING CLINICIAN: DEBO URIAS TECHNIQUE: Multiple images of the right upper quadrant were obtained. Perrin scale, color Doppler and spectral Doppler waveform analysis was performed. FINDINGS: LIVER: The liver measures 11.7 cm no evidence of focal hepatic lesion is seen. Echogenic reflector in segment 5 of the liver, status post liver biopsy with Gel-Foam deposit. No evidence of bleeding status post liver biopsy. GALLBLADDER: Surgically absent BILIARY SYSTEM: No evidence of intra or extrahepatic biliary dilatation is identified; the common bile duct measures 0.3 cm. DOPPLER EVALUATION: HEPATIC ARTERIES: Hepatic artery and its right and left branches RI's are estimated at 0.7, .72 and 0.7, respectively. PORTAL VEIN: Portal vein is patent and measures 1.16. There is normal respiratory variation. Portal vein velocities are calculated as follows: main portal vein 33.5 cm/s, antegrade flow; left portal vein branch 19.9 cm/s, antegrade flow; right portal vein anterior branch 19.2, antegrade flow; right portal vein posterior branch 17.1, antegrade flow. The splenic vein is also patent. HEPATIC VEIN: The right, middle and left hepatic veins are patent and demonstrate triphasic antegrade flow. IVC appears also patent. PANCREAS: Grossly unremarkable RIGHT KIDNEY: The right kidney measures 10.6 cm in length. Multiple nonobstructing stones are noted in the right kidney without gross evidence of hydronephrosis. The largest in the midpole measuring approximately 7 mm. SPLEEN: The spleen measures 12.5 cm and is grossly unremarkable. Splenule medially is noted. PERITONEUM AND RETROPERITONEUM: Trace amount of perihepatic ascites as well as ascites within the perisplenic space are noted. This was not visualized on the study dated 01/09/2024. Similar finding were noted during ultrasound-guided biopsy dated 01/16 and 01/23/2024. [facility] Татьяна Eid MD - 01/23/2024 Interpreted By: Татьяна Eid, STUDY: US LIVER WITH DOPPLER; 01/23/2024 11:19 am INDICATION: Signs/Symptoms:RUQ pain. COMPARISON: Ultrasound liver dated 01/09/2024 ACCESSION NUMBER(S): [id number] ORDERING CLINICIAN: DEBO URIAS TECHNIQUE: Multiple images of the right upper quadrant were obtained. Perrin scale, color Doppler and spectral Doppler waveform analysis was performed. FINDINGS: LIVER: The liver measures 11.7 cm no evidence of focal hepatic lesion is seen. Echogenic reflector in segment 5 of the liver, status post liver biopsy with Gel-Foam deposit. No evidence of bleeding status post liver biopsy. GALLBLADDER: Surgically absent BILIARY SYSTEM: No evidence of intra or extrahepatic biliary dilatation is identified; the common bile duct measures 0.3 cm. DOPPLER EVALUATION: HEPATIC ARTERIES: Hepatic artery and its right and left branches RI's are estimated at 0.7, .72 and 0.7, respectively. PORTAL VEIN: Portal vein is patent and measures 1.16. There is normal respiratory variation. Portal vein velocities are calculated as follows: main portal vein 33.5 cm/s, antegrade flow; left portal vein branch 19.9 cm/s, antegrade flow; right portal vein anterior branch 19.2, antegrade flow; right portal vein posterior branch 17.1, antegrade flow. The splenic vein is also patent. HEPATIC VEIN: The right, middle and left hepatic veins are patent and demonstrate triphasic antegrade flow. IVC appears also patent. PANCREAS: Grossly unremarkable RIGHT KIDNEY: The right kidney measures 10.6 cm in length. Multiple nonobstructing stones are noted in the right kidney without gross evidence of hydronephrosis. The largest in the midpole measuring approximately 7 mm. SPLEEN: The spleen measures 12.5 cm and is grossly unremarkable. Splenule medially is noted. PERITONEUM AND RETROPERITONEUM: Trace amount of perihepatic ascites as well as ascites within the perisplenic space are noted. This was not visualized on the study dated 01/09/2024. Similar finding were noted during ultrasound-guided biopsy dated 01/16 and 01/23/2024. IMPRESSION: 1. Trace amount of ascites. 2. Essentially normal Doppler evaluation. 3. Non-obstructing stones right kidney MACRO: None Signed by: Татьяна Eid 01/23/2024 12:57 PM Dictation workstation: [id number] [facility] Work Phone: [facility] Work Phone: Radiology Study observation (narrative) [facility] Work Phone: Bacteria identified Cx Nom ( Bld)on 01-22-2024 Interpretation and review of laboratory results Normal [facility] Basic metabolic 2000 panelon 01-22-2024 Anion gap [Moles/Vol] 14 mmol/L 10 - 2 0 mmol/L [facility] Calcium [Mass/Vol] 9.1 mg/dL 8.6 - 10. 6 mg/dL [facility] Chloride [Moles/Vol] 102 mmol/L 98 - 10 7 mmol/L [facility] CO2 [Moles/Vol] 26 mmol/L 21 - 32 mmol/L [facility] Creatinine [Mass/Vol] 0.97 mg/dL 0.50 - 1.30 mg/dL [facility] eGFR - PINF [facility] Comment on above: Calculations of zander mated GFR are performed using the 2020 CKD-EPI Study Refit equation without the race variable for the IDMS-Traceable creatinine methods. https://jasn.asnjournals.org/content/early//ASN.909707 8589 Glucose [Mass/Vol] 336 mg/dL High 74 - 99 mg/dL [facility] Interpretation and review of laboratory results Abnormal [facility] Potassium [Moles/Vol] 4.4 mmol/L 3.5 - 5.3 mmol/L [facility] Sodium [Moles/Vol] 138 mmol/L 136 - 145 mmol/L [facility] Urea nitrogen [Mass/Vol] 38 mg/dL High 6 - 23 mg/dL [facility] Anion gap [Moles/Vol] 14 mmol/L Normal 10-20 [facility] Comment on above: Performed By: #### 1 1253-2 #### NORMA Cherry ([id number]) [facility] ([facility]) [id number] [place] [address] Calcium [Mass/Vol] 9.1 mg/dL Normal 8.6-10.6 [facility] Comment on above: Performed By: #### 1 1253-2 #### NORMA Cherry ([id number]) [facility] ([facility]) [address] [place] [address] Chloride [Moles/Vol] 102 mmol/L Normal 98-107 [facility] Comment on above: Performed By: #### 1 1253-2 #### NORMA Cherry ([id number]) [facility] ([facility]) [address] [place] [address] CO2 [Moles/Vol] 26 mmol/L Normal 21-32 [facility] Comment on above: Performed By: #### 1 1253-2 #### NORMA Cherry ([id number]) [facility] ([facility]) [id number] [place] [address] Creatinine [Mass/Vol] 0.97 mg/dL Normal 0.50-1.30 [facility] Comment on above: Performed By: #### 1 1253-2 #### NORMA Cherry ([id number]) [facility] ([facility]) [address] [place] [address] GFR/1.73 sq M.predicted MDRD (S/P/Bld) [Vol rate/Area] mL/min/{1.73_m2} Normal >60 [facility] Comment on above: Result Comment: Calc ulations of estimated GFR are performed using the 2020 CKD-EPI Study Refit equation without the race variable for the IDMS-Traceable creatinine methods. https://jasn.asnjournals.org/content/early/ASN.745934 7986 Performed By: #### 1 1253-2 #### NORMA Cherry ([id number]) [facility] ([facility]) [address] [place] [address] Glucose [Mass/Vol] 336 mg/dL High 74-99 [facility] Comment on above: Performed By: #### 1 1253-2 #### NORMA Cherry ([id number]) [facility] ([facility]) [address] [place] [address] Potassium [Moles/Vol] 4.4 mmol/L Normal 3.5-5.3 [facility] Comment on above: Performed By: #### 1 1253-2 #### NORMA ADHIKARI L ([id number]) [facility] ([facility]) [address] [place] [address] Sodium [Moles/Vol] 138 mmol/L Normal 136-145 [facility] Comment on above: Performed By: #### 1 1253-2 #### NORMA ADHIKARI L ([id number]) [facility] ([facility]) [id number] [place] [address] Urea nitrogen [Mass/Vol] 38 mg/dL High 6-23 [facility] Comment on above: Performed By: #### 1 1253-2 #### NORMA ADHIKARI L ([id number]) [facility] ([facility]) [id number] [place] [address] CBC W Auto Differential pane l (Bld)on 01-22-2024 Basophils (Bld) [#/Vol] 0.00 10*3/uL [facility] Basophils/100 WBC (Bld) 0.0 % 0.0 - 2.0 % [facility] Eosinophils (Bld) [#/Vol] 0.00 10*3/uL [facility] Eosinophils/100 WBC (Bld) 0.0 % 0.0 - 6.0 % [facility] Erythrocyte distribution width (RBC) [Ratio] 13.5 % 11.5 - 14.5 % [facility] Hematocrit (Bld) [Volume fraction] 42.1 % 41.0 - 52.0 % [facility] Hemoglobin (Bld) [Mass/Vol] 13.4 g/dL Low 13.5 - 17.5 g/dL [facility] Immature granulocytes (Bld) [#/Vol] 0.05 10*3/uL [facility] Immature granulocytes/100 WBC (Bld) 0.7 % 0.0 - 0.9 % [facility] Comment on above: Immature Granulocyte Count (IG) includes promyelocytes, myelocytes and metamyelocytes but does not include bands. Percent differential counts (%) should be interpreted in the context of the absolute cell counts (cells/UL). Interpretation and review of laboratory results Abnormal [facility] Lymphocytes (Bld) [#/Vol] 0.60 10*3/uL Low [facility] Lymphocytes/100 WBC (Bld) 8.0 % 13.0 - 44.0 % [facility] MCH (RBC) [Entitic mass] 30.4 pg 26.0 - 34.0 pg [facility] MCHC (RBC) [Mass/Vol] 31.8 g/dL Low 32.0 - 36.0 g/dL [facility] MCV (RBC) [Entitic vol] 96 fL 80 - 100 fL [facility] Monocytes (Bld) [#/Vol] 0.07 10*3/uL Low [facility] Monocytes/100 WBC (Bld) 0.9 % 2.0 - 10.0 % [facility] Neutrophils (Bld) [#/Vol] 6.77 10*3/uL [facility] Comment on above: Percent differential counts (%) should be interpreted in the context of the absolute cell counts (cells/uL). Neutrophils/100 WBC (Bld) 90.4 % 40.0 - 80.0 % [facility] Nucleated RBC/100 WBC (Bld) [Ratio] 0.0 % [facility] Platelets (Bld) [#/Vol] 134 10*3/uL [facility] RBC (Bld) [#/Vol] 4.41 10*6/uL [facility] WBC (Bld) [#/Vol] 7.5 10*3/uL [facility] Basophils (Bld) [#/Vol] 0.00 x10*3/uL Normal 0.00-0.10 [facility] Comment on above: Performed By: #### 1 1253-2 #### NORMA Cherry ([id number]) [facility] ([facility]) [address] [place] [address] Basophils/100 WBC (Bld) 0.0 % Normal 0.0-2.0 [facility] Comment on above: Performed By: #### 1 1253-2 #### NORMA Cherry ([id number]) [facility] ([facility]) [id number] [place] [address] Eosinophils (Bld) [#/Vol] 0.00 x10*3/uL Normal 0.00-0.70 [facility] Comment on above: Performed By: #### 1 1253-2 #### NORMA Cherry ([id number]) [facility] ([facility]) [address] [place] [address] Eosinophils/100 WBC (Bld) 0.0 % Normal 0.0-6.0 [facility] Comment on above: Performed By: #### 1 1253-2 #### NORMA Cherry ([id number]) [facility] ([facility]) [address] [place] [address] Erythrocyte distribution width (RBC) [Ratio] 13.5 % Normal 11.5-14.5 [facility] Comment on above: Performed By: #### 1 1253-2 #### NORMA Cherry ([id number]) [facility] ([facility] [facility]) [address] [place] [address] 17305 Hematocrit (Bld) [Volume fraction] 42.1 % Normal 41.0-52.0 [facility] Comment on above: Performed By: #### 1 1253-2 #### NORMA Cherry ([id number]) [facility] ([facility]) [address] [place] [address] 83917 Hemoglobin (Bld) [Mass/Vol] 13.4 g/dL Low 13.5-17.5 [facility] Comment on above: Performed By: #### 1 1253-2 #### NORMA Cherry ([id number]) [facility] ([facility]) [address] [place] [address] 76144 Immature granulocytes (Bld) [#/Vol] 0.05 x10*3/uL Normal 0.00-0.70 [facility] Comment on above: Performed By: #### 1 1253-2 #### NORMA Cherry ([id number]) [facility] ([facility]) [id number] [address] 73757 Immature granulocytes/100 WBC (Bld) 0.7 % Normal 0.0-0.9 [facility] Comment on above: Result Comment: Nicole ture Granulocyte Count (IG) includes promyelocytes, myelocytes and metamyelocytes but does not include bands. Percent differential counts (%) should be interpreted in the context of the absolute cell counts (cells/UL). Performed By: #### 1 1253-2 #### NORMA Cherry ([id number]) [facility] ([facility]) [address] [place] [address] 65900 Lymphocytes (Bld) [#/Vol] 0.60 x10*3/uL Low 1.20-4.80 [facility] Comment on above: Performed By: #### 1 1253-2 #### NORMA Cherry ([id number]) [facility] ([facility]) [address] [place] [address] 43708 Lymphocytes/100 WBC (Bld) 8.0 % Normal 13.0-44.0 [facility] Comment on above: Performed By: #### 1 1253-2 #### NORMA Cherry ([id number]) [facility] ([facility]) [address] [address] 39342 MCH (RBC) [Entitic mass] 30.4 pg Normal 26.0-34.0 [facility] Comment on above: Performed By: #### 1 1253-2 #### NORMA Cherry ([id number]) [facility] ([facility]) [address] [address] 47109 MCHC (RBC) [Mass/Vol] 31.8 g/dL Low 32.0-36.0 [facility] Comment on above: Performed By: #### 1 1253-2 #### NORMA Cherry ([id number]) [facility] ([facility]) [address] [place] [address] MCV (RBC) [Entitic vol] 96 fL Normal 80-100 [facility] Comment on above: Performed By: #### 1 1253-2 #### NORMA Cherry ([id number]) [facility] ([facility]) [address] [place] [address] Monocytes (Bld) [#/Vol] 0.07 x10*3/uL Low 0.10-1.00 [facility] Comment on above: Performed By: #### 1 1253-2 #### NORMA Cherry ([id number]) [facility] ([facility]) [address] [place] [address] 26350 Monocytes/100 WBC (Bld) 0.9 % Normal 2.0-10.0 [facility] Comment on above: Performed By: #### 1 1253-2 #### NORMA Cherry ([id number]) [facility] ([facility]) [address] [address] 42636 Neutrophils (Bld) [#/Vol] 6.77 x10*3/uL Normal 1.20-7.70 [facility] Comment on above: Result Comment: Perc ent differential counts (%) should be interpreted in the context of the absolute cell counts (cells/uL). Performed By: #### 1 1253-2 #### NORMA Cherry ([id number]) [facility] ([facility]) [address] [place] [address] Neutrophils/100 WBC (Bld) 90.4 % Normal 40.0-80.0 [facility] Comment on above: Performed By: #### 1 1253-2 #### NORMA Cherry ([id number]) [facility] ([facility]) [address] [place] [address] 58092 Nucleated RBC/100 WBC (Bld) [Ratio] 0.0 /100 WBCs Normal 0.0-0.0 [facility] Comment on above: Performed By: #### 1 1253-2 #### NORMA Cherry ([id number]) [facility] ([facility]) [address] [place] [address] Platelets (Bld) [#/Vol] 134 x10*3/uL Low 150-450 [facility] Comment on above: Performed By: #### 1 1253-2 #### NORMA Cherry ([id number]) [facility] ([facility]) [address] [place] [address] RBC (Bld) [#/Vol] 4.41 x10*6/uL Low 4.50-5.90 [facility] Comment on above: Performed By: #### 1 1253-2 #### NORMA Cherry ([id number]) [facility] ([facility]) [address] [address] 22690 WBC (Bld) [#/Vol] 7.5 x10*3/uL Normal 4.4-11.3 [facility] Comment on above: Performed By: #### 1 1253-2 #### NORMA Cherry ([id number]) [facility] ([facility]) [address] [address] 35436 Glucose Test strip manual (B ld) [Mass/Vol]on 01-22-2024 Glucose [Mass/Vol] 158 mg/dL High 74 - 99 mg/dL [facility] Interpretation and review of laboratory results Abnormal [facility] Glucose [Mass/Vol] 158 mg/dL High 74-99 [facility] Comment on above: Performed By: #### 2 341-6 #### NORMA Cherry ([id number]) [facility] ([facility]) [address] [address] 18957 Glucose [Mass/Vol] 381 mg/dL High 74 - 99 mg/dL [facility] Interpretation and review of laboratory results Abnormal [facility] Glucose [Mass/Vol] 381 mg/dL High 74-99 [facility] Comment on above: Performed By: #### 2 341-6 #### NORMA Cherry ([id number]) [facility] ([facility]) [address] [place] [address] 28400 Glucose [Mass/Vol] 380 mg/dL High 74 - 99 mg/dL [facility] Interpretation and review of laboratory results Abnormal [facility] Glucose [Mass/Vol] 380 mg/dL High 74-99 [facility] Comment on above: Performed By: #### 1 1253-2 #### NORMA Cherry ([id number]) [facility] ([facility]) [address] [place] [address] 19374 Glucose [Mass/Vol] 468 mg/dL High 74 - 99 mg/dL [facility] Interpretation and review of laboratory results Abnormal [facility] Glucose [Mass/Vol] 468 mg/dL High 74-99 [facility] Comment on above: Performed By: #### 1 1253-2 #### NORMA Cherry ([id number]) [facility] ([facility]) [address] [place] [address] 24572 Glucose [Mass/Vol] 325 mg/dL High 74 - 99 mg/dL [facility] Interpretation and review of laboratory results Abnormal [facility] Glucose [Mass/Vol] 325 mg/dL High 74-99 [facility] Comment on above: Performed By: #### 1 1253-2 #### NORMA Cherry ([id number]) [facility] ([facility]) [address] [place] [address] 53359 Hepatic function 2000 panelo n 01-22-2024 Albumin BCP dye [Mass/Vol] 3.0 g/dL Low 3.4 - 5.0 g/dL [facility] ALP [Catalytic activity/Vol] 195 U/L High 33 - 120 U/L [facility] ALT With P-5'-P [Catalytic activity/Vol] 96 U/L High 10 - 52 U/L [facility] Comment on above: Patients treated wit h Sulfasalazine may generate falsely decreased results for ALT. AST With P-5'-P [Catalytic activity/Vol] 87 U/L High 9 - 39 U/L [facility] Bilirubin [Mass/Vol] 1.7 mg/dL High 0.0 - 1 .2 mg/dL [facility] Bilirubin.direct [Mass/Vol] 0.9 mg/dL High 0.0 - 0.3 mg/dL [facility] Interpretation and review of laboratory results Abnormal [facility] Protein [Mass/Vol] 6.7 g/dL 6.4 - 8.2 g/dL [facility] Albumin BCP dye [Mass/Vol] 3.0 g/dL Low 3.4-5.0 [facility] Comment on above: Performed By: #### 1 1253-2 #### NORMA Cherry ([id number]) [facility] ([facility]) [address] [place] [address] 14934 ALP [Catalytic activity/Vol] 195 U/L High 33-120 [facility] Comment on above: Performed By: #### 1 1253-2 #### NORMA Cherry ([id number]) [facility] ([facility]) [address] [place] [address] 48125 ALT With P-5'-P [Catalytic activity/Vol] 96 U/L High 10-52 [facility] Comment on above: Result Comment: Batool ents treated with Sulfasalazine may generate falsely decreased results for ALT. Performed By: #### 1 1253-2 #### NORMA Cherry ([id number]) [facility] ([facility]) [address] [place] [address] 64614 AST With P-5'-P [Catalytic activity/Vol] 87 U/L High 9-39 [facility] Comment on above: Performed By: #### 1 1253-2 #### NORMA ADHIKARI L ([id number]) [facility] ([facility]) [address] [place] [address] 94513 Bilirubin [Mass/Vol] 1.7 mg/dL High 0.0-1.2 [facility] Comment on above: Performed By: #### 1 1253-2 #### NORMA Cherry ([id number]) [facility] ([facility]) [address] [place] [id number] Bilirubin.direct [Mass/Vol] 0.9 mg/dL High 0.0-0.3 [facility] Comment on above: Performed By: #### 1 1253-2 #### NORMA Cherry ([id number]) [facility] ([facility]) [address] [place] [address] Protein [Mass/Vol] 6.7 g/dL Normal 6.4-8.2 [facility] Comment on above: Performed By: #### 1 1253-2 #### NORMA Cherry ([id number]) [facility] ([facility]) [address] [place], [place] [id number] Laboratory - Microbiology an d Antimicrobial susceptibilityon 01-22-2024 Bacteria identified Cx Nom (Bld) No growth at 4 days - FINAL REPORT [facility] Magnesiumon 01-22-2024 Magnesium [Mass/Vol] 1.83 mg/dL 1.60 - 2.40 mg/dL [facility] Magnesium [Mass/Vol] 1.83 mg/dL Normal 1.60-2.40 [facility] Comment on above: Performed By: #### 1 1253-2 #### NORMA Cherry ([id number]) [facility] ([facility]) [address] [place], [place] [address] Natriuretic peptide B [Mass/ Vol]on 01-22-2024 Natriuretic peptide B (Bld) [Mass/Vol] 89 pg/mL Normal 0-99 [facility] Comment on above: Order Comment: <100 pg/mL - Heart failure [id number] pg/mL - Intermediate probability of acute heart failure exacerbation. Correlate with clinical context and patient history. >=300 pg/mL - Heart Failure likely. Correlate with clinical context and patient history.Biotin interference may cause falsely decreased results. Patients taking a Biotin dose of up to 5 mg/day should refrain from taking Biotin for 24 hours before sample collection. Providers may contact their local laboratory for further information. Performed By: #### 2 341-6 #### NORMA Cherry ([id number]) [facility] ([facility]) [address] [place], [place] [address] No Panel Informationon 01-21 Interpretation and review of laboratory results Normal [facility] Phosphateon 01-22-2024 Phosphate [Mass/Vol] 4.2 mg/dL Normal 2.5-4.9 [facility] Comment on above: Result Comment: The performance characteristics of phosphorus testing in heparinized plasma have been validated by the individual laboratory site where testing is performed. Testing on heparinized plasma is not approved by the FDA; however, such approval is not necessary. Performed By: #### 1 1253-2 #### NORMA Cherry ([id number]) [facility] ([facility]) [address] [place] [address] Phosphoruson 01-22-2024 Phosphate [Mass/Vol] 4.2 mg/dL 2.5 - 4 .9 mg/dL [facility] Comment on above: The performance aditi acteristics of phosphorus testing in heparinized plasma have been validated by the individual laboratory site where testing is performed. Testing on heparinized plasma is not approved by the FDA; however, such approval is not necessary. Tacrolimuson 01-22-2024 Tacrolimus (Bld) [Mass/Vol] 6.3 ng/mL Normal <=15.0 [facility] Comment on above: Order Comment: NOTE: Result was obtained using achemiluminescent microparticle immunoassay(CMIA) on the Stem Roller Or Crusher Operator i system.Optimal therapeutic ranges for immunosuppressantdrugs depend upon an individualpatient's current clinical state, type oforgan transplant, time post-transplant,co-administration of other immunosuppressants,and other clinical factors. The results ofthis test should be correlated with additionalclinical and laboratory data before changesin treatment regimens are made. Performed By: #### 2 341-6 #### NORMA Cherry ([id number]) [facility] ([facility]) [address] [place] [address] Tacrolimus (Bld) [Mass/Vol]O rdered By: Isreal Mosquera on 01-22-2024 Interpretation and review of laboratory results Normal [facility] NOTE: Result was obt ained using a chemiluminescent microparticle immunoassay (CMIA) on the Stem Roller Or Crusher Operator i system. Optimal therapeutic ranges for immunosuppressant drugs depend upon an individual patient's current clinical state, type of organ transplant, time post-transplant, co-administration of other immunosuppressants, and other clinical factors. The results of this test should be correlated with additional clinical and laboratory data before changes in treatment regimens are made. [facility] Tacrolimus levelOrdered By: Isreal Mosquera on 01-22-2024 Tacrolimus (Bld) [Mass/Vol] 6.3 ng/mL NINF - 15.0 ng/mL [facility] Basic metabolic 2000 panelon 01-21-2024 Anion gap [Moles/Vol] 14 mmol/L 10 - 2 0 mmol/L [facility] Calcium [Mass/Vol] 9.3 mg/dL 8.6 - 10. 6 mg/dL [facility] Chloride [Moles/Vol] 101 mmol/L 98 - 10 7 mmol/L [facility] CO2 [Moles/Vol] 24 mmol/L 21 - 32 mmol/L [facility] Creatinine [Mass/Vol] 1.14 mg/dL 0.50 - 1.30 mg/dL [facility] GFR/1.73 sq M.predicted among non-blacks MDRD (S/P/Bld) [Vol rate/Area] 89 mL/min/{1.73_m2} - PINF [facility] Comment on above: Calculations of zander mated GFR are performed using the 2020 CKD-EPI Study Refit equation without the race variable for the IDMS-Traceable creatinine methods. https://jasn.asnjournals.org/content//ASN.229147 1076 Glucose [Mass/Vol] 332 mg/dL High 74 - 99 mg/dL [facility] Potassium [Moles/Vol] 4.2 mmol/L 3.5 - 5.3 mmol/L [facility] Sodium [Moles/Vol] 135 mmol/L Low 136 - 145 mmol/L [facility] Urea nitrogen [Mass/Vol] 35 mg/dL High 6 - 23 mg/dL [facility] Anion gap [Moles/Vol] 14 mmol/L Normal 10-[address] [facility] Comment on above: Performed By: #### 1 1253-2 #### NORMA Cherry ([id number]) [facility] ([facility]) [address] [place] [address] Calcium [Mass/Vol] 9.3 mg/dL Normal 8.6-10.6 [facility] Comment on above: Performed By: #### 1 1253-2 #### NORMA ADHIKARI L ([id number]) [facility] ([facility]) [address] [place] [address] Chloride [Moles/Vol] 101 mmol/L Normal 98-107 [facility] Comment on above: Performed By: #### 1 1253-2 #### NORMA ADHIKARI L ([id number]) [facility] ([facility]) [address] [place] [address] 05220 CO2 [Moles/Vol] 24 mmol/L Normal 21-32 [facility] Comment on above: Performed By: #### 1 1253-2 #### NORMA ADHIKARI L ([id number]) [facility] ([facility]) [address] [place] [address] 10305 Creatinine [Mass/Vol] 1.14 mg/dL Normal 0.50-1.30 [facility] Comment on above: Performed By: #### 1 1253-2 #### NORMA ADHIKARI L ([id number]) [facility] ([facility]) [address] [address] 72387 Glomerular filtration rate/1.73 sq M.predicted 89 mL/min/1.73m*2 Normal >60 [facility] Comment on above: Result Comment: Calc ulations of estimated GFR are performed using the 2020 CKD-EPI Study Refit equation without the race variable for the IDMS-Traceable creatinine methods. https://jasn.asnjournals.org/content/early//ASN.916625 8961 Performed By: #### 1 1253-2 #### NORMA ADHIKARI L ([id number]) [facility] ([facility]) [address] [place] [address] Glucose [Mass/Vol] 332 mg/dL High 74-99 [facility] Comment on above: Performed By: #### 1 1253-2 #### NORMA Cherry ([id number]) [facility] ([facility]) [address] [place] [address] 02979 Potassium [Moles/Vol] 4.2 mmol/L Normal 3.5-5.3 [facility] Comment on above: Performed By: #### 1 1253-2 #### NORMA Cherry ([id number]) [facility] ([facility]) [address] [address] 15882 Sodium [Moles/Vol] 135 mmol/L Low 136-145 [facility] Comment on above: Performed By: #### 1 1253-2 #### NORMA Cherry ([id number]) [facility] ([facility]) [address] [address] 91324 Urea nitrogen [Mass/Vol] 35 mg/dL High 6-23 [facility] Comment on above: Performed By: #### 1 1253-2 #### NORMA Cherry ([id number]) [facility] ([facility]) [address] [place] [address] 04355 CBC W Auto Differential pane l (Bld)on 01-21-2024 Basophils (Bld) [#/Vol] 0.03 10*3/uL [facility] Basophils/100 WBC (Bld) 0.1 % 0.0 - 2.0 % [facility] Eosinophils (Bld) [#/Vol] 0.00 10*3/uL [facility] Eosinophils/100 WBC (Bld) 0.0 % 0.0 - 6.0 % [facility] Erythrocyte distribution width (RBC) [Ratio] 13.6 % 11.5 - 14.5 % [facility] Hematocrit (Bld) [Volume fraction] 42.6 % 41.0 - 52.0 % [facility] Hemoglobin (Bld) [Mass/Vol] 14.2 g/dL 13.5 - 17.5 g/dL [facility] Immature granulocytes (Bld) [#/Vol] 0.15 10*3/uL [facility] Immature granulocytes/100 WBC (Bld) 0.7 % 0.0 - 0.9 % [facility] Comment on above: Immature Granulocyte Count (IG) includes promyelocytes, myelocytes and metamyelocytes but does not include bands. Percent differential counts (%) should be interpreted in the context of the absolute cell counts (cells/UL). Interpretation and review of laboratory results Abnormal [facility] Lymphocytes (Bld) [#/Vol] 0.75 10*3/uL Low [facility] Lymphocytes/100 WBC (Bld) 3.7 % 13.0 - 44.0 % [facility] MCH (RBC) [Entitic mass] 31.4 pg 26.0 - 34.0 pg [facility] MCHC (RBC) [Mass/Vol] 33.3 g/dL 32.0 - 36.0 g/dL [facility] MCV (RBC) [Entitic vol] 94 fL 80 - 100 fL [facility] Monocytes (Bld) [#/Vol] 0.61 10*3/uL [facility] Monocytes/100 WBC (Bld) 3.0 % 2.0 - 10.0 % [facility] Neutrophils (Bld) [#/Vol] 18.82 10*3/uL High [facility] Comment on above: Percent differential counts (%) should be interpreted in the context of the absolute cell counts (cells/uL). Neutrophils/100 WBC (Bld) 92.5 % 40.0 - 80.0 % [facility] Nucleated RBC/100 WBC (Bld) [Ratio] 0.0 % [facility] Platelets (Bld) [#/Vol] 223 10*3/uL [facility] RBC (Bld) [#/Vol] 4.52 10*6/uL [facility] WBC (Bld) [#/Vol] 20.4 10*3/uL High [facility] Basophils (Bld) [#/Vol] 0.03 x10*3/uL Normal 0.00-0.10 [facility] Comment on above: Performed By: #### 1 1253-2 #### NORMA Cherry ([id number]) [facility] ([facility]) [address] [address] 99272 Basophils/100 WBC (Bld) 0.1 % Normal 0.0-2.0 [facility] Comment on above: Performed By: #### 1 1253-2 #### NORMA ADHIKARI L ([id number]) [facility] ([facility]) [address] [place] [address] 10263 Eosinophils (Bld) [#/Vol] 0.00 x10*3/uL Normal 0.00-0.70 [facility] Comment on above: Performed By: #### 1 1253-2 #### NORMA ADHIKARI L ([id number]) [facility] ([facility]) [address] [place] [address] 18388 Eosinophils/100 WBC (Bld) 0.0 % Normal 0.0-6.0 [facility] Comment on above: Performed By: #### 1 1253-2 #### NORMA ADHIKARI L ([id number]) [facility] ([facility]) [address] [place] [address] 58665 Erythrocyte distribution width (RBC) [Ratio] 13.6 % Normal 11.5-14.5 [facility] Comment on above: Performed By: #### 1 1253-2 #### NORMA Cherry ([id number]) [facility] ([facility]) [address] [place] [address] 96188 Hematocrit (Bld) [Volume fraction] 42.6 % Normal 41.0-52.0 [facility] Comment on above: Performed By: #### 1 1253-2 #### NORMA Cherry ([id number]) [facility] ([facility]) [address] [place] [address] 39745 Hemoglobin (Bld) [Mass/Vol] 14.2 g/dL Normal 13.5-17.5 [facility] Comment on above: Performed By: #### 1 1253-2 #### NORMA ADHIKARI L ([id number]) [facility] ([facility]) [address] [place] [address] Immature granulocytes (Bld) [#/Vol] 0.15 x10*3/uL Normal 0.00-0.70 [facility] Comment on above: Performed By: #### 1 1253-2 #### NORMA Cherry ([id number]) [facility] ([facility]) [address] [address] 47366 Immature granulocytes/100 WBC (Bld) 0.7 % Normal 0.0-0.9 [facility] Comment on above: Result Comment: Nicole ture Granulocyte Count (IG) includes promyelocytes, myelocytes and metamyelocytes but does not include bands. Percent differential counts (%) should be interpreted in the context of the absolute cell counts (cells/UL). Performed By: #### 1 1253-2 #### NORMA Cherry ([id number]) [facility] ([facility]) [address] [place] [address] 60937 Lymphocytes (Bld) [#/Vol] 0.75 x10*3/uL Low 1.20-4.80 [facility] Comment on above: Performed By: #### 1 1253-2 #### NORMA Cherry ([id number]) [facility] ([facility]) [address] [place] [address] 55247 Lymphocytes/100 WBC (Bld) 3.7 % Normal 13.0-44.0 [facility] Comment on above: Performed By: #### 1 1253-2 #### NORMA Cherry ([id number]) [facility] ([facility]) [address] [address] 28267 MCH (RBC) [Entitic mass] 31.4 pg Normal 26.0-34.0 [facility] Comment on above: Performed By: #### 1 1253-2 #### NORMA Cherry ([id number]) [facility] ([facility]) [address] [place] [address] 15978 MCHC (RBC) [Mass/Vol] 33.3 g/dL Normal 32.0-36.0 [facility] Comment on above: Performed By: #### 1 1253-2 #### NORMA Cherry ([id number]) [facility] ([facility]) [address] [place] [address] MCV (RBC) [Entitic vol] 94 fL Normal 80-100 [facility] Comment on above: Performed By: #### 1 1253-2 #### NORMA Cherry ([id number]) [facility] ([facility]) [id number] [place] [address] 69488 Monocytes (Bld) [#/Vol] 0.61 x10*3/uL Normal 0.10-1.00 [facility] Comment on above: Performed By: #### 1 1253-2 #### NORMA Cherry ([id number]) [facility] [facility]) [id number] [address] 26884 Monocytes/100 WBC (Bld) 3.0 % Normal 2.0-10.0 [facility] Comment on above: Performed By: #### 1 1253-2 #### NORMA Cherry ([id number]) [facility] ([facility]) [address] [address] 32051 Neutrophils (Bld) [#/Vol] 18.82 x10*3/uL High 1.20-7.70 [facility] Comment on above: Result Comment: Perc ent differential counts (%) should be interpreted in the context of the absolute cell counts (cells/uL). Performed By: #### 1 1253-2 #### NORMA Cherry ([id number]) [facility] ([facility]) [address] [place] [address] Neutrophils/100 WBC (Bld) 92.5 % Normal 40.0-80.0 [facility] Comment on above: Performed By: #### 1 1253-2 #### NORMA ADHIKARI L ([id number]) [facility] ([facility]) [address] [place] [address] Nucleated RBC/100 WBC (Bld) [Ratio] 0.0 /100 WBCs Normal 0.0-0.0 [facility] Comment on above: Performed By: #### 1 1253-2 #### NORMA Cherry ([id number]) [facility] ([facility]) [address] [place] [address] 53089 Platelets (Bld) [#/Vol] 223 x10*3/uL Normal 150-450 [facility] Comment on above: Performed By: #### 1 1253-2 #### NORMA Cherry ([id number]) [facility] ([facility]) [address] [place] [address] 18207 RBC (Bld) [#/Vol] 4.52 x10*6/uL Normal 4.50-5.90 [facility] Comment on above: Performed By: #### 1 1253-2 #### NORMA Cherry ([id number]) [facility] ([facility]) [address] [place] [address] 03342 WBC (Bld) [#/Vol] 20.4 x10*3/uL High 4.4-11.3 [facility] Comment on above: Performed By: #### 1 1253-2 #### NORMA Cherry ([id number]) [facility] ([facility]) [address] [place] [address] 88459 Coagulation tissue factor in ducedon 01-21-2024 PT Coag (PPP) [Time] 14.1 s High 9.8-12.8 [facility] Comment on above: Performed By: #### 1 1253-2 #### NORMA Cherry ([id number]) [facility] ([facility]) [address] [place] [address] 71528 Glucose Test strip manual (B ld) [Mass/Vol]on 01-21-2024 Glucose [Mass/Vol] 195 mg/dL High 74 - 99 mg/dL [facility] Interpretation and review of laboratory results Abnormal [facility] Glucose [Mass/Vol] 195 mg/dL High 74-99 [facility] Comment on above: Performed By: #### 1 1253-2 #### NORMA Cherry ([id number]) [facility] ([facility]) [address] [place] [address] 66682 Glucose [Mass/Vol] 236 mg/dL High 74 - 99 mg/dL [facility] Interpretation and review of laboratory results Abnormal [facility] Glucose [Mass/Vol] 236 mg/dL High 74-99 [facility] Comment on above: Performed By: #### 1 1253-2 #### NORMA Cherry ([id number]) [facility] ([facility]) [address] [place] [address] 09418 Glucose [Mass/Vol] 286 mg/dL High 74 - 99 mg/dL [facility] Interpretation and review of laboratory results Abnormal [facility] Glucose [Mass/Vol] 286 mg/dL High 74-99 [facility] Comment on above: Performed By: #### 1 1253-2 #### NORMA Cherry ([id number]) [facility] ([facility]) [address] [place] [address] 98560 Glucose [Mass/Vol] 266 mg/dL High 74 - 99 mg/dL [facility] Interpretation and review of laboratory results Abnormal [facility] Glucose [Mass/Vol] 266 mg/dL High 74-99 [facility] Comment on above: Performed By: #### 1 1253-2 #### NORMA Cherry ([id number]) [facility] ([facility]) [address] [place] [address] 28989 Hepatic function 2000 panelo n 01-21-2024 Albumin BCP dye [Mass/Vol] 3.5 g/dL 3.4 - 5.0 g/dL [facility] ALP [Catalytic activity/Vol] 227 U/L High 33 - 120 U/L [facility] ALT With P-5'-P [Catalytic activity/Vol] 95 U/L High 10 - 52 U/L [facility] Comment on above: Patients treated wit h Sulfasalazine may generate falsely decreased results for ALT. AST With P-5'-P [Catalytic activity/Vol] 88 U/L High 9 - 39 U/L [facility] Bilirubin [Mass/Vol] 2.0 mg/dL High 0.0 - 1 .2 mg/dL [facility] Bilirubin.direct [Mass/Vol] 1.0 mg/dL High 0.0 - 0.3 mg/dL [facility] Interpretation and review of laboratory results Abnormal [facility] Protein [Mass/Vol] 7.3 g/dL 6.4 - 8.2 g/dL [facility] Albumin BCP dye [Mass/Vol] 3.5 g/dL Normal 3.4-5.0 [facility] Comment on above: Performed By: #### 1 1253-2 #### NORMA Cherry ([id number]) [facility] ([facility]) [id number] [address] 26963 ALP [Catalytic activity/Vol] 227 U/L High 33-120 [facility] Comment on above: Performed By: #### 1 1253-2 #### NORMA Cherry ([id number]) [facility] ([facility]) [address] [place] [address] ALT With P-5'-P [Catalytic activity/Vol] 95 U/L High 10-52 [facility] Comment on above: Result Comment: Batool ents treated with Sulfasalazine may generate falsely decreased results for ALT. Performed By: #### 1 1253-2 #### NORMA Cherry ([id number]) [facility] ([facility]) [address] [place] [address] AST With P-5'-P [Catalytic activity/Vol] 88 U/L High 9-39 [facility] Comment on above: Performed By: #### 1 1253-2 #### NORMA Cherry ([id number]) [facility] ([facility]) [address] [place] [address] Bilirubin [Mass/Vol] 2.0 mg/dL High 0.0-1.2 [facility] Comment on above: Performed By: #### 1 1253-2 #### NORMA Cherry ([id number]) [facility] ([facility]) [address] [place] [address] 60388 Bilirubin.direct [Mass/Vol] 1.0 mg/dL High 0.0-0.3 [facility] Comment on above: Performed By: #### 1 1253-2 #### NORMA Cherry ([id number]) [facility] ([facility]) [address] [place] [address] 85981 Protein [Mass/Vol] 7.3 g/dL Normal 6.4-8.2 [facility] Comment on above: Performed By: #### 1 1253-2 #### NORMA Cherry ([id number]) [facility] ([facility]) [address] [place], [place] [id number] Magnesiumon 01-21-2024 Magnesium [Mass/Vol] 1.57 mg/dL Low 1.60 - 2.40 mg/dL [facility] Magnesium [Mass/Vol] 1.57 mg/dL Low 1.60-2.40 [facility] Comment on above: Performed By: #### 1 1253-2 #### NORMA Cherry ([id number]) [facility] ([facility]) [address] [place] [address] 57033 No Panel Informationon 01-20 Interpretation and review of laboratory results Abnormal [facility] PT Coag (PPP) [Time]on 01-20 INR Coag (PPP) [Relative time] 1.3 {INR} High 0.9 - 1.1 [facility] Interpretation and review of laboratory results Abnormal [facility] INR Coag (PPP) [Relative time] 1.3 High 0.9-1.1 [facility] Comment on above: Performed By: #### 1 1253-2 #### NORMA Cherry ([id number]) [facility] ([facility]) [address] [place] [address] 45090 Phosphateon 01-21-2024 Phosphate [Mass/Vol] 4.7 mg/dL Normal 2.5-4.9 [facility] Comment on above: Result Comment: The performance characteristics of phosphorus testing in heparinized plasma have been validated by the individual laboratory site where testing is performed. Testing on heparinized plasma is not approved by the FDA; however, such approval is not necessary. Performed By: #### 1 1253-2 #### NORMA Cherry ([id number]) [facility] ([facility]) [address] [place] [address] 89968 Phosphate [Mass/Vol]on 01-20 Interpretation and review of laboratory results [facility] Phosphoruson 01-21-2024 Phosphate [Mass/Vol] 4.7 mg/dL 2.5 - 4 .9 mg/dL [facility] Comment on above: The performance aditi acteristics of phosphorus testing in heparinized plasma have been validated by the individual laboratory site where testing is performed. Testing on heparinized plasma is not approved by the FDA; however, such approval is not necessary. Protime-INRon 01-21-2024 PT Coag (PPP) [Time] 14.1 s [facility] Tacrolimuson 01-21-2024 Tacrolimus (Bld) [Mass/Vol] 6.8 ng/mL Normal <=15.0 [facility] Comment on above: Order Comment: NOTE: Result was obtained using a chemiluminescent microparticle immunoassay (CMIA) on the Stem Roller Or Crusher Operator i system. Optimal therapeutic ranges for immunosuppressant drugs depend upon an individual patient's current clinical state, type of organ transplant, time post-transplant, co-administration of other immunosuppressants, and other clinical factors. The results of this test should be correlated with additional clinical and laboratory data before changes in treatment regimens are made. Performed By: #### 1 1253-2 #### NORMA Cherry ([id number]) [facility] ([facility]) [address] [place] [address] Tacrolimus (Bld) [Mass/Vol]o n 01-21-2024 Interpretation and review of laboratory results [facility] Work Phone: NOTE: Result was obt ained using a chemiluminescent microparticle immunoassay (CMIA) on the Stem Roller [employer] Crusher Operator i system. Optimal therapeutic ranges for immunosuppressant drugs depend upon an individual patient's current clinical state, type of organ transplant, time post-transplant, co-administration of other immunosuppressants, and other clinical factors. The results of this test should be correlated with additional clinical and laboratory data before changes in treatment regimens are made. [facility] Work Phone: [facility] Work Phone: Tacrolimus levelon 4 Tacrolimus (Bld) [Mass/Vol] 6.8 ng/mL NINF - 15.0 ng/mL [facility] Work Phone: Basic metabolic 2000 panelon 01-20-2024 Anion gap [Moles/Vol] 13 mmol/L 10 - 2 0 mmol/L [facility] Calcium [Mass/Vol] 9.3 mg/dL 8.6 - 10. 6 mg/dL [facility] Chloride [Moles/Vol] 100 mmol/L 98 - 10 7 mmol/L [facility] CO2 [Moles/Vol] 25 mmol/L 21 - 32 mmol/L [facility] Creatinine [Mass/Vol] 0.96 mg/dL 0.50 - 1.30 mg/dL [facility] eGFR - PINF [facility] Comment on above: Calculations of zander mated GFR are performed using the 2020 CKD-EPI Study Refit equation without the race variable for the IDMS-Traceable creatinine methods. https://jasn.asnjournals.org/content//ASN.751960 1837 Glucose [Mass/Vol] 241 mg/dL High 74 - 99 mg/dL [facility] Interpretation and review of laboratory results Abnormal [facility] Potassium [Moles/Vol] 4.0 mmol/L 3.5 - 5.3 mmol/L [facility] Sodium [Moles/Vol] 134 mmol/L Low 136 - 145 mmol/L [facility] Urea nitrogen [Mass/Vol] 27 mg/dL High 6 - 23 mg/dL [facility] Anion gap [Moles/Vol] 13 mmol/L Normal 10-20 [facility] Comment on above: Performed By: #### 1 1253-2 #### NORMA Cherry ([id number]) [facility] ([facility]) [address] [place] [address] Calcium [Mass/Vol] 9.3 mg/dL Normal 8.6-10.6 [facility] Comment on above: Performed By: #### 1 1253-2 #### NORMA Cherry ([id number]) [facility] ([facility]) [address] [place] [address] Chloride [Moles/Vol] 100 mmol/L Normal 98-107 [facility] Comment on above: Performed By: #### 1 1253-2 #### NORMA Cherry ([id number]) [facility] ([facility]) [address] [place] [address] 31404 CO2 [Moles/Vol] 25 mmol/L Normal 21-32 [facility] Comment on above: Performed By: #### 1 1253-2 #### NORMA Cherry ([id number]) [facility] ([facility]) [address] [place] [address] Creatinine [Mass/Vol] 0.96 mg/dL Normal 0.50-1.30 [facility] Comment on above: Performed By: #### 1 1253-2 #### NORMA Cherry ([id number]) [facility] ([facility]) [address] [place] [address] 96059 GFR/1.73 sq M.predicted MDRD (S/P/Bld) [Vol rate/Area] mL/min/{1.73_m2} Normal >60 [facility] Comment on above: Result Comment: Calc ulations of estimated GFR are performed using the 2020 CKD-EPI Study Refit equation without the race variable for the IDMS-Traceable creatinine methods. https://jasn.asnjournals.org/content/early//ASN.013568 4944 Performed By: #### 1 1253-2 #### NORMA Cherry ([id number]) [facility] ([facility]) [address] [place] [address] Glucose [Mass/Vol] 241 mg/dL High 74-99 [facility] Comment on above: Performed By: #### 1 1253-2 #### NORMA hCerry ([id number]) [facility] ([facility]) [address] [place] [address] 43129 Potassium [Moles/Vol] 4.0 mmol/L Normal 3.5-5.3 [facility] Comment on above: Performed By: #### 1 1253-2 #### NORMA ADHIKARI L ([id number]) [facility] ([facility]) [address] [place] [address] Sodium [Moles/Vol] 134 mmol/L Low 136-145 [facility] Comment on above: Performed By: #### 1 1253-2 #### NORMA Cherry ([id number]) [facility] ([facility]) [address] [address] 06721 Urea nitrogen [Mass/Vol] 27 mg/dL High 6-23 [facility] Comment on above: Performed By: #### 1 1253-2 #### NORMA Cherry ([id number]) [facility] ([facility]) [address] [place] [address] 05703 CBC W Auto Differential pane l (Bld)on 01-20-2024 Basophils (Bld) [#/Vol] 0.03 10*3/uL [facility] Basophils/100 WBC (Bld) 0.1 % 0.0 - 2.0 % [facility] Eosinophils (Bld) [#/Vol] 0.00 10*3/uL [facility] Eosinophils/100 WBC (Bld) 0.0 % 0.0 - 6.0 % [facility] Erythrocyte distribution width (RBC) [Ratio] 13.1 % 11.5 - 14.5 % [facility] Hematocrit (Bld) [Volume fraction] 40.3 % Low 41.0 - 52.0 % [facility] Hemoglobin (Bld) [Mass/Vol] 13.5 g/dL 13.5 - 17.5 g/dL [facility] Immature granulocytes (Bld) [#/Vol] 0.19 10*3/uL [facility] Immature granulocytes/100 WBC (Bld) 0.8 % 0.0 - 0.9 % [facility] Comment on above: Immature Granulocyte Count (IG) includes promyelocytes, myelocytes and metamyelocytes but does not include bands. Percent differential counts (%) should be interpreted in the context of the absolute cell counts (cells/UL). Interpretation and review of laboratory results Abnormal [facility] Lymphocytes (Bld) [#/Vol] 0.81 10*3/uL Low [facility] Lymphocytes/100 WBC (Bld) 3.3 % 13.0 - 44.0 % [facility] MCH (RBC) [Entitic mass] 31.1 pg 26.0 - 34.0 pg [facility] MCHC (RBC) [Mass/Vol] 33.5 g/dL 32.0 - 36.0 g/dL [facility] MCV (RBC) [Entitic vol] 93 fL 80 - 100 fL [facility] Monocytes (Bld) [#/Vol] 0.26 10*3/uL [facility] Monocytes/100 WBC (Bld) 1.1 % 2.0 - 10.0 % [facility] Neutrophils (Bld) [#/Vol] 22.99 10*3/uL High [facility] Comment on above: Percent differential counts (%) should be interpreted in the context of the absolute cell counts (cells/uL). Neutrophils/100 WBC (Bld) 94.7 % 40.0 - 80.0 % [facility] Nucleated RBC/100 WBC (Bld) [Ratio] 0.0 % [facility] Platelets (Bld) [#/Vol] 194 10*3/uL [facility] RBC (Bld) [#/Vol] 4.34 10*6/uL Low [facility] WBC (Bld) [#/Vol] 24.3 10*3/uL [facility] Basophils (Bld) [#/Vol] 0.03 x10*3/uL Normal 0.00-0.10 [facility] Comment on above: Performed By: #### 1 1253-2 #### NORMA Cherry ([id number]) [facility] ([facility]) [address] [place] [address] 95634 Basophils/100 WBC (Bld) 0.1 % Normal 0.0-2.0 [facility] Comment on above: Performed By: #### 1 1253-2 #### NORMA ADHIKARI L ([id number]) [facility] ([facility]) [address] [place] [address] 02249 Eosinophils (Bld) [#/Vol] 0.00 x10*3/uL Normal 0.00-0.70 [facility] Comment on above: Performed By: #### 1 1253-2 #### NORMA Cherry ([id number]) [facility] ([facility]) [address] [place] [address] 11444 Eosinophils/100 WBC (Bld) 0.0 % Normal 0.0-6.0 [facility] Comment on above: Performed By: #### 1 1253-2 #### NORMA ADHIKARI L ([id number]) [facility] ([facility]) [address] [place] [address] 70982 Erythrocyte distribution width (RBC) [Ratio] 13.1 % Normal 11.5-14.5 [facility] Comment on above: Performed By: #### 1 1253-2 #### NORMA ADHIKARI L ([id number]) [facility] ([facility]) [address] [place] [address] 31156 Hematocrit (Bld) [Volume fraction] 40.3 % Low 41.0-52.0 [facility] Comment on above: Performed By: #### 1 1253-2 #### NORMA ADHIKARI L ([id number]) [facility] ([facility]) [address] [place] [address] 29836 Hemoglobin (Bld) [Mass/Vol] 13.5 g/dL Normal 13.5-17.5 [facility] Comment on above: Performed By: #### 1 1253-2 #### NORMA ADHIKARI L ([id number]) [facility] ([facility]) [address] [place] [address] Immature granulocytes (Bld) [#/Vol] 0.19 x10*3/uL Normal 0.00-0.70 [facility] Comment on above: Performed By: #### 1 1253-2 #### NORMA Cherry ([id number]) [facility] ([facility]) [address] [place] [address] Immature granulocytes/100 WBC (Bld) 0.8 % Normal 0.0-0.9 [facility] Comment on above: Result Comment: Nicole ture Granulocyte Count (IG) includes promyelocytes, myelocytes and metamyelocytes but does not include bands. Percent differential counts (%) should be interpreted in the context of the absolute cell counts (cells/UL). Performed By: #### 1 1253-2 #### NORMA Cherry ([id number]) [facility] ([facility]) [address] [address] 97089 Lymphocytes (Bld) [#/Vol] 0.81 x10*3/uL Low 1.20-4.80 [facility] Comment on above: Performed By: #### 1 1253-2 #### NORMA Cherry ([id number]) [facility] ([facility]) [address] [address] 61351 Lymphocytes/100 WBC (Bld) 3.3 % Normal 13.0-44.0 [facility] Comment on above: Performed By: #### 1 1253-2 #### NORMA Cherry ([id number]) [facility] ([facility]) [address] [address] 89982 MCH (RBC) [Entitic mass] 31.1 pg Normal 26.0-34.0 [facility] Comment on above: Performed By: #### 1 1253-2 #### NORMA Cherry ([id number]) [facility] ([facility]) [address] [place] [address] MCHC (RBC) [Mass/Vol] 33.5 g/dL Normal 32.0-36.0 [facility] Comment on above: Performed By: #### 1 1253-2 #### NORMA Cherry ([id number]) [facility] ([facility]) [address] [place] [address] MCV (RBC) [Entitic vol] 93 fL Normal 80-100 [facility] Comment on above: Performed By: #### 1 1253-2 #### NORMA Cherry ([id number]) [facility] ([facility]) [address] [address] 91732 Monocytes (Bld) [#/Vol] 0.26 x10*3/uL Normal 0.10-1.00 [facility] Comment on above: Performed By: #### 1 1253-2 #### NORMA Cherry ([id number]) [facility] ([facility]) [address] [address] 10841 Monocytes/100 WBC (Bld) 1.1 % Normal 2.0-10.0 [facility] Comment on above: Performed By: #### 1 1253-2 #### NORMA Cherry ([id number]) [facility] ([facility]) [address] [address] 30628 Neutrophils (Bld) [#/Vol] 22.99 x10*3/uL High 1.20-7.70 [facility] Comment on above: Result Comment: Perc ent differential counts (%) should be interpreted in the context of the absolute cell counts (cells/uL). Performed By: #### 1 1253-2 #### NORMA Cherry ([id number]) [facility] ([facility]) [address] [place] [address] Neutrophils/100 WBC (Bld) 94.7 % Normal 40.0-80.0 [facility] Comment on above: Performed By: #### 1 1253-2 #### NORMA ADHIKARI L ([id number]) [facility] ([facility]) [address] [place] [address] Nucleated RBC/100 WBC (Bld) [Ratio] 0.0 /100 WBCs Normal 0.0-0.0 [facility] Comment on above: Performed By: #### 1 1253-2 #### NORMA Cherry ([id number]) [facility] ([facility]) [address] [place] [address] 67986 Platelets (Bld) [#/Vol] 194 x10*3/uL Normal 150-450 [facility] Comment on above: Performed By: #### 1 1253-2 #### NORMA Cherry ([id number]) [facility] ([facility]) [address] [place] [address] 16091 RBC (Bld) [#/Vol] 4.34 x10*6/uL Low 4.50-5.90 [facility] Comment on above: Performed By: #### 1 1253-2 #### NORMA Cherry ([id number]) [facility] ([facility]) [address] [place] [address] 75613 WBC (Bld) [#/Vol] 24.3 x10*3/uL High 4.4-11.3 [facility] Comment on above: Performed By: #### 1 1253-2 #### NORMA Cherry ([id number]) [facility] ([facility]) [address] [place] [address] 81079 Coagulation tissue factor in ducedon 01-20-2024 PT Coag (PPP) [Time] 14.0 s High 9.8-12.8 [facility] Comment on above: Performed By: #### 1 1253-2 #### NORMA Cherry ([id number]) [facility] ([facility]) [address] [place] [address] 11103 Glucose Test strip manual (B ld) [Mass/Vol]on 01-20-2024 Glucose [Mass/Vol] 208 mg/dL High 74 - 99 mg/dL [facility] Interpretation and review of laboratory results Abnormal [facility] Glucose [Mass/Vol] 208 mg/dL High 74-99 [facility] Comment on above: Performed By: #### 1 1253-2 #### NORMA Cherry ([id number]) [facility] ([facility]) [address] [place] [address] 98970 Glucose [Mass/Vol] 192 mg/dL High 74 - 99 mg/dL [facility] Interpretation and review of laboratory results Abnormal [facility] Glucose [Mass/Vol] 192 mg/dL High 74-99 [facility] Comment on above: Performed By: #### 1 1253-2 #### NORMA Cherry ([id number]) [facility] ([facility]) [address] [place] [address] 78873 Glucose [Mass/Vol] 353 mg/dL High 74 - 99 mg/dL [facility] Interpretation and review of laboratory results Abnormal [facility] Glucose [Mass/Vol] 353 mg/dL High 74-99 [facility] Comment on above: Performed By: #### 1 1253-2 #### NORMA Cherry ([id number]) [facility] [facility] [address] [place] [address] 49264 Glucose [Mass/Vol] 168 mg/dL High 74 - 99 mg/dL [facility] Interpretation and review of laboratory results Abnormal [facility] Glucose [Mass/Vol] 168 mg/dL High 74-99 [facility] Comment on above: Performed By: #### 1 1253-2 #### NORMA Cherry ([id number]) [facility] ([facility]) [address] [place] [address] 93807 Hepatic function 2000 panelo n 01-20-2024 Albumin BCP dye [Mass/Vol] 3.2 g/dL Low 3.4 - 5.0 g/dL [facility] ALP [Catalytic activity/Vol] 251 U/L High 33 - 120 U/L [facility] ALT With P-5'-P [Catalytic activity/Vol] 78 U/L High 10 - 52 U/L [facility] Comment on above: Patients treated wit h Sulfasalazine may generate falsely decreased results for ALT. AST With P-5'-P [Catalytic activity/Vol] 68 U/L High 9 - 39 U/L [facility] Bilirubin [Mass/Vol] 1.9 mg/dL High 0.0 - 1 .2 mg/dL [facility] Bilirubin.direct [Mass/Vol] 0.9 mg/dL High 0.0 - 0.3 mg/dL [facility] Interpretation and review of laboratory results Abnormal [facility] Protein [Mass/Vol] 7.2 g/dL 6.4 - 8.2 g/dL [facility] Albumin BCP dye [Mass/Vol] 3.2 g/dL Low 3.4-5.0 [facility] Comment on above: Performed By: #### 1 1253-2 #### NORMA Cherry ([id number]) [facility] ([facility]) [id number] [place] [address]20 ALP [Catalytic activity/Vol] 251 U/L High 33-120 [facility] Comment on above: Performed By: #### 1 1253-2 #### NORMA Cherry ([id number]) [facility] ([facility]) [id number] [place] [address] 95298 ALT With P-5'-P [Catalytic activity/Vol] 78 U/L High 10-52 [facility] Comment on above: Result Comment: Batool ents treated with Sulfasalazine may generate falsely decreased results for ALT. Performed By: #### 1 1253-2 #### NORMA Cherry ([id number]) [facility] ([facility]) [address] [place] [address] AST With P-5'-P [Catalytic activity/Vol] 68 U/L High 9-39 [facility] Comment on above: Performed By: #### 1 1253-2 #### NORMA Cherry ([id number]) [facility] ([facility]) [address] [place] [address] 80035 Bilirubin [Mass/Vol] 1.9 mg/dL High 0.0-1.2 [facility] Comment on above: Performed By: #### 1 1253-2 #### NORMA Cherry ([id number]) [facility] ([facility]) [address] [place] [address] 15111 Bilirubin.direct [Mass/Vol] 0.9 mg/dL High 0.0-0.3 [facility] Comment on above: Performed By: #### 1 1253-2 #### NORMA Cherry ([id number]) [facility] ([facility]) [address] [place] [address] 80375 Protein [Mass/Vol] 7.2 g/dL Normal 6.4-8.2 [facility] Comment on above: Performed By: #### 1 1253-2 #### NORMA Cherry ([id number]) [facility] ([facility]) [address] [place], [place] [phone] Magnesiumon 01-20-2024 Magnesium [Mass/Vol] 1.95 mg/dL 1.60 - 2.40 mg/dL [facility] Magnesium [Mass/Vol] 1.95 mg/dL Normal 1.60-2.40 [facility] Comment on above: Performed By: #### 1 1253-2 #### NORMA Cherry ([id number]) [facility] ([facility]) [address] [place], [place] [phone] No Panel Informationon 01-19 Interpretation and review of laboratory results Normal [facility] PT Coag (PPP) [Time]on 01-19 INR Coag (PPP) [Relative time] 1.2 {INR} High 0.9 - 1.1 [facility] Interpretation and review of laboratory results Abnormal [facility] INR Coag (PPP) [Relative time] 1.2 High 0.9-1.1 [facility] Comment on above: Performed By: #### 1 1253-2 #### NORMA Cherry ([id number]) [facility] ([facility]) [address] [place] [address] 49007 Phosphateon 01-20-2024 Phosphate [Mass/Vol] 3.5 mg/dL Normal 2.5-4.9 [facility] Comment on above: Result Comment: The performance characteristics of phosphorus testing in heparinized plasma have been validated by the individual laboratory site where testing is performed. Testing on heparinized plasma is not approved by the FDA; however, such approval is not necessary. Performed By: #### 1 1253-2 #### NORMA Cherry ([id number]) [facility] ([facility]) [id number] [place], [place] [phone] Phosphoruson 01-20-2024 Phosphate [Mass/Vol] 3.5 mg/dL 2.5 - 4 .9 mg/dL [facility] Comment on above: The performance aditi acteristics of phosphorus testing in heparinized plasma have been validated by the individual laboratory site where testing is performed. Testing on heparinized plasma is not approved by the FDA; however, such approval is not necessary. Protime-INRon 01-20-2024 PT Coag (PPP) [Time] 14.[address] [facility] Tacrolimuson 01-20-2024 Tacrolimus (Bld) [Mass/Vol] 6.1 ng/mL Normal <=15.0 [facility] Comment on above: Order Comment: NOTE: Result was obtained using a chemiluminescent microparticle immunoassay (CMIA) on the Stem Roller Or Crusher Operator i system. Optimal therapeutic ranges for immunosuppressant drugs depend upon an individual patient's current clinical state, type of organ transplant, time post-transplant, co-administration of other immunosuppressants, and other clinical factors. The results of this test should be correlated with additional clinical and laboratory data before changes in treatment regimens are made. Performed By: #### 1 1253-2 #### NORMA Cherry ([id number]) [facility] ([facility]) [address] [place] [address] Tacrolimus (Bld) [Mass/Vol] 6.7 ng/mL Normal <=15.0 [facility] Comment on above: Order Comment: NOTE: Result was obtained using a chemiluminescent microparticle immunoassay (CMIA) on the Stem Roller Or Crusher Operator i system. Optimal therapeutic ranges for immunosuppressant drugs depend upon an individual patient's current clinical state, type of organ transplant, time post-transplant, co-administration of other immunosuppressants, and other clinical factors. The results of this test should be correlated with additional clinical and laboratory data before changes in treatment regimens are made. Performed By: #### 1 1253-2 #### NORMA Cherry ([id number]) [facility] ([facility]) [address] [place] [address] Tacrolimus (Bld) [Mass/Vol]O rdered By: Annette Freeman on 01-20-2024 Interpretation and review of laboratory results Normal [facility] NOTE: Result was obt ained using a chemiluminescent microparticle immunoassay (CMIA) on the Stem Roller Or Crusher Operator i system. Optimal therapeutic ranges for immunosuppressant drugs depend upon an individual patient's current clinical state, type of organ transplant, time post-transplant, co-administration of other immunosuppressants, and other clinical factors. The results of this test should be correlated with additional clinical and laboratory data before changes in treatment regimens are made. [facility] Tacrolimus levelOrdered By: Annette Freeman on 01-20-2024 Tacrolimus (Bld) [Mass/Vol] 6.7 ng/mL NINF - 15.0 ng/mL [facility] Tacrolimus levelon Tacrolimus (Bld) [Mass/Vol] 6.1 ng/mL NINF - 15.0 ng/mL [facility] Work Phone: Basic metabolic 2000 panelon 01-19-2024 Anion gap [Moles/Vol] 13 mmol/L 10 - 2 0 mmol/L [facility] Calcium [Mass/Vol] 8.8 mg/dL 8.6 - 10. 6 mg/dL [facility] Chloride [Moles/Vol] 101 mmol/L 98 - 10 7 mmol/L [facility] CO2 [Moles/Vol] 27 mmol/L 21 - 32 mmol/L [facility] Creatinine [Mass/Vol] 0.88 mg/dL 0.50 - 1.30 mg/dL [facility] eGFR - PINF [facility] Comment on above: Calculations of zander mated GFR are performed using the 2020 CKD-EPI Study Refit equation without the race variable for the IDMS-Traceable creatinine methods. https://jasn.asnjournals.org/content/early/ASN.767262 0158 Glucose [Mass/Vol] 262 mg/dL High 74 - 99 mg/dL [facility] Interpretation and review of laboratory results Abnormal [facility] Potassium [Moles/Vol] 4.6 mmol/L 3.5 - 5.3 mmol/L [facility] Sodium [Moles/Vol] 136 mmol/L 136 - 145 mmol/L [facility] Urea nitrogen [Mass/Vol] 19 mg/dL 6 - 23 mg/dL [facility] Anion gap [Moles/Vol] 13 mmol/L Normal 10-20 [facility] Comment on above: Performed By: #### 1 1253-2 #### NORMA Cherry ([id number]) [facility] ([facility]) [address] [place] [address] 61070 Calcium [Mass/Vol] 8.8 mg/dL Normal 8.6-10.6 [facility] Comment on above: Performed By: #### 1 1253-2 #### NORMA Cherry ([id number]) [facility] ([facility]) [address] [address] 55458 Chloride [Moles/Vol] 101 mmol/L Normal 98-107 [facility] Comment on above: Performed By: #### 1 1253-2 #### NORMA ADHIKARI L ([id number]) [facility] ([facility]) [address] [address] 36699 CO2 [Moles/Vol] 27 mmol/L Normal 21-32 [facility] Comment on above: Performed By: #### 1 1253-2 #### NORMA ADHIKARI L ([id number]) [facility] ([facility]) [address] [place] [address] Creatinine [Mass/Vol] 0.88 mg/dL Normal 0.50-1.30 [facility] Comment on above: Performed By: #### 1 1253-2 #### NROMA ADHIKARI L ([id number]) [facility] ([facility]) [address] [address] 87606 GFR/1.73 sq M.predicted MDRD (S/P/Bld) [Vol rate/Area] mL/min/{1.73_m2} Normal >60 [facility] Comment on above: Result Comment: Calc ulations of estimated GFR are performed using the 2020 CKD-EPI Study Refit equation without the race variable for the IDMS-Traceable creatinine methods. https://jasn.asnjournals.org/content//ASN.882925 0730 Performed By: #### 1 1253-2 #### NORMA Cherry ([id number]) [facility] ([facility]) [address] [address] 83155 Glucose [Mass/Vol] 262 mg/dL High 74-99 [facility] Comment on above: Performed By: #### 1 1253-2 #### NORMA ADHIKARI L ([id number]) [facility] ([facility]) [address] [place] [address] 69475 Potassium [Moles/Vol] 4.6 mmol/L Normal 3.5-5.3 [facility] Comment on above: Performed By: #### 1 1253-2 #### NORMA ADHIKARI L ([id number]) [facility] ([facility]) [address] [place] [address] 27300 Sodium [Moles/Vol] 136 mmol/L Normal 136-145 [facility] Comment on above: Performed By: #### 1 1253-2 #### NORMA ADHIKARI L ([id number]) [facility] ([facility]) [address] [place] [address] 63761 Urea nitrogen [Mass/Vol] 19 mg/dL Normal 6-23 [facility] Comment on above: Performed By: #### 1 1253-2 #### NORMA ADHIKARI L ([id number]) [facility] ([facility]) [address] [place] [address] 59466 CBC W Auto Differential pane l (Bld)on 01-19-2024 Basophils (Bld) [#/Vol] 0.01 10*3/uL [facility] Basophils/100 WBC (Bld) 0.4 % 0.0 - 2.0 % [facility] Eosinophils (Bld) [#/Vol] 0.00 10*3/uL [facility] Eosinophils/100 WBC (Bld) 0.0 % 0.0 - 6.0 % [facility] Erythrocyte distribution width (RBC) [Ratio] 13.0 % 11.5 - 14.5 % [facility] Hematocrit (Bld) [Volume fraction] 41.4 % 41.0 - 52.0 % [facility] Hemoglobin (Bld) [Mass/Vol] 13.6 g/dL 13.5 - 17.5 g/dL [facility] Immature granulocytes (Bld) [#/Vol] 0.02 10*3/uL [facility] Immature granulocytes/100 WBC (Bld) 0.8 % 0.0 - 0.9 % [facility] Comment on above: Immature Granulocyte Count (IG) includes promyelocytes, myelocytes and metamyelocytes but does not include bands. Percent differential counts (%) should be interpreted in the context of the absolute cell counts (cells/UL). Interpretation and review of laboratory results Abnormal [facility] Lymphocytes (Bld) [#/Vol] 0.49 10*3/uL Low [facility] Lymphocytes/100 WBC (Bld) 18.6 % 13.0 - 44.0 % [facility] MCH (RBC) [Entitic mass] 30.6 pg 26.0 - 34.0 pg [facility] MCHC (RBC) [Mass/Vol] 32.9 g/dL 32.0 - 36.0 g/dL [facility] MCV (RBC) [Entitic vol] 93 fL 80 - 100 fL [facility] Monocytes (Bld) [#/Vol] 0.03 10*3/uL Low [facility] Monocytes/100 WBC (Bld) 1.1 % 2.0 - 10.0 % [facility] Neutrophils (Bld) [#/Vol] 2.08 10*3/uL [facility] Comment on above: Percent differential counts (%) should be interpreted in the context of the absolute cell counts (cells/uL). Neutrophils/100 WBC (Bld) 79.1 % 40.0 - 80.0 % [facility] Nucleated RBC/100 WBC (Bld) [Ratio] 0.0 % [facility] Platelets (Bld) [#/Vol] 123 10*3/uL Low [facility] RBC (Bld) [#/Vol] 4.44 10*6/uL [facility] WBC (Bld) [#/Vol] 2.6 10*3/uL [facility] Basophils (Bld) [#/Vol] 0.01 x10*3/uL Normal 0.00-0.10 [facility] Comment on above: Performed By: #### 1 1253-2 #### NORMA Cherry ([id number]) [facility] ([facility]) [address] [address] 10153 Basophils/100 WBC (Bld) 0.4 % Normal 0.0-2.0 [facility] Comment on above: Performed By: #### 1 1253-2 #### NORMA Cherry ([id number]) [facility] ([facility]) [address] [address] 53941 Eosinophils (Bld) [#/Vol] 0.00 x10*3/uL Normal 0.00-0.70 [facility] Comment on above: Performed By: #### 1 1253-2 #### NORMA Cherry ([id number]) [facility] ([facility]) [address] [address] 28581 Eosinophils/100 WBC (Bld) 0.0 % Normal 0.0-6.0 [facility] Comment on above: Performed By: #### 1 1253-2 #### NORMA Cherry ([id number]) [facility] ([facility]) [address] [address] 39418 Erythrocyte distribution width (RBC) [Ratio] 13.0 % Normal 11.5-14.5 [facility] Comment on above: Performed By: #### 1 1253-2 #### NORMA Cherry ([id number]) [facility] ([facility]) [address] [place] [address] Hematocrit (Bld) [Volume fraction] 41.4 % Normal 41.0-52.0 [facility] Comment on above: Performed By: #### 1 1253-2 #### NORMA Cherry ([id number]) [facility] ([facility]) [address] [place] [address] Hemoglobin (Bld) [Mass/Vol] 13.6 g/dL Normal 13.5-17.5 [facility] Comment on above: Performed By: #### 1 1253-2 #### NORMA Cherry ([id number]) [facility] ([facility]) [address] [address] 68099 Immature granulocytes (Bld) [#/Vol] 0.02 x10*3/uL Normal 0.00-0.70 [facility] Comment on above: Performed By: #### 1 1253-2 #### NORMA Cherry ([id number]) [facility] ([facility]) [address] [address] 52627 Immature granulocytes/100 WBC (Bld) 0.8 % Normal 0.0-0.9 [facility] Comment on above: Result Comment: Nicole ture Granulocyte Count (IG) includes promyelocytes, myelocytes and metamyelocytes but does not include bands. Percent differential counts (%) should be interpreted in the context of the absolute cell counts (cells/UL). Performed By: #### 1 1253-2 #### NORMA Cherry ([id number]) [facility] ([facility]) [address] [place] [address] Lymphocytes (Bld) [#/Vol] 0.49 x10*3/uL Low 1.20-4.80 [facility] Comment on above: Performed By: #### 1 1253-2 #### NORMA Cherry ([id number]) [facility] ([facility]) [address] [place] [address] Lymphocytes/100 WBC (Bld) 18.6 % Normal 13.0-44.0 [facility] Comment on above: Performed By: #### 1 1253-2 #### NORMA Cherry ([id number]) [facility] ([facility]) [address] [address] 32474 MCH (RBC) [Entitic mass] 30.6 pg Normal 26.0-34.0 [facility] Comment on above: Performed By: #### 1 1253-2 #### NORMA Cherry ([id number]) [facility] ([facility]) [address] [place] [address] 45579 MCHC (RBC) [Mass/Vol] 32.9 g/dL Normal 32.0-36.0 [facility] Comment on above: Performed By: #### 1 1253-2 #### NORMA Cherry ([id number]) [facility] ([facility]) [address] [place] [address] 69064 MCV (RBC) [Entitic vol] 93 fL Normal 80-100 [facility] Comment on above: Performed By: #### 1 1253-2 #### NORMA Cherry ([id number]) [facility] ([facility]) [address] [place] [address] 90553 Monocytes (Bld) [#/Vol] 0.03 x10*3/uL Low 0.10-1.00 [facility] Comment on above: Performed By: #### 1 1253-2 #### NORMA Cherry ([id number]) [facility] ([facility]) [address] [address] 44199 Monocytes/100 WBC (Bld) 1.1 % Normal 2.0-10.0 [facility] Comment on above: Performed By: #### 1 1253-2 #### NORMA Cherry ([id number]) [facility] ([facility]) [address] [place] [address] 18891 Neutrophils (Bld) [#/Vol] 2.08 x10*3/uL Normal 1.20-7.70 [facility] Comment on above: Result Comment: Perc ent differential counts (%) should be interpreted in the context of the absolute cell counts (cells/uL). Performed By: #### 1 1253-2 #### NORMA Cherry ([id number]) [facility] ([facility]) [address] [place] [address] Neutrophils/100 WBC (Bld) 79.1 % Normal 40.0-80.0 [facility] Comment on above: Performed By: #### 1 1253-2 #### NORMA Cherry ([id number]) [facility] ([facility]) [address] [address] 44579 Nucleated RBC/100 WBC (Bld) [Ratio] 0.0 /100 WBCs Normal 0.0-0.0 [facility] Comment on above: Performed By: #### 1 1253-2 #### NORMA Cherry ([id number]) [facility] ([facility]) [address] [address] 26126 Platelets (Bld) [#/Vol] 123 x10*3/uL Low 150-450 [facility] Comment on above: Performed By: #### 1 1253-2 #### NORMA Cherry ([id number]) [facility] ([facility]) [address] [address] 53470 RBC (Bld) [#/Vol] 4.44 x10*6/uL Low 4.50-5.90 [facility] Comment on above: Performed By: #### 1 1253-2 #### NORMA Cherry ([id number]) [facility] ([facility]) [address] [address] 43743 WBC (Bld) [#/Vol] 2.6 x10*3/uL Low 4.4-11.3 [facility] Comment on above: Performed By: #### 1 1253-2 #### NORMA Cherry ([id number]) [facility] ([facility]) [address] [place] [address] CMV DNA LÁZARO+probe Qn (P)Orde red By: Dominique Wu on 01-19-2024 CMV DNA LÁZARO+probe (P) [Log units/Vol] [facility] Comment on above: Not calculated Laboratory comment Haroon (Report) Not detected Not Detected [facility] Reportable Range: 35-10,000,000 IU/mL. The yu CMV test is an in vitro nucleic acid amplification test for the quantitation of Cytomegalovirus (CMV) DNA in human EDTA plasma on the yu [employer]/88[employer] Systems. The analytical quantification range of this assay has been determined to be 35 to 10,000,000 IU/ml in plasma. Mutations within the highly-conserved regions of the CMV DNA polymerase (UL54) gene covered by yu CMV may affect primers and/or probe binding resulting in the under-quantitation of virus or failure to detect the presence of virus. The yu CMV mitigates this risk through the use of redundant amplification primers. Negative test results do not preclude CMV infection or tissue-invasive CMV disease, and test results should therefore not be the sole basis for patient management decisions If the assay DETECTED the presence of the virus but was not able to accurately quantify the number of copies, the test result will be reported as <35 Detected or >10,000,000 Detected . The yu CMV is intended for use as an aid in the management of CMV in solid organ transplant patients and in hematopoietic stem cell transplant patients. In patients receiving anti-CMV therapy, serial DNA measurements can be used to assess viral response to treatment. The results from yu CMV must be interpreted within the context of all relevant clinical and laboratory findings. This test is approved by the [place] Food and Drug Administration, and its performance characteristics verified by the [facility], Department of Pathology, [facility]. [facility] EBV DNA LÁZARO+probe Qnon 01-18 EBV DNA LÁZARO+probe (Unsp spec) [Log #/Vol] [facility] Work Phone: Comment on above: Not calculated Laboratory comment Haroon (Report) Not detected Not Detected [facility] Work Phone: Reportable Range: 35-100,000,000 IU/mL. The yu EBV test is an in vitro nucleic acid amplification dual target assay for the quantitation of Isaac-Fair virus (EBV) DNA in human EDTA plasma on the yu [employer] Systems. The test employs a dual target virus specific approach from highly-conserved regions of the EBV located in the EBV EBNA-1 gene and the EBV BMRF gene. The analytical quantification range of this assay has been determined to be 35 to 100,000,000 IU/ml in plasma. As with any molecular test, mutations within the target regions of yu EBV could affect primer and/or probe binding resulting in the under-quantitation of virus or failure to detect the presence of virus. If the assay DETECTED the presence of the virus but was not able to accurately quantify the number of copies, the test result will be reported as <35 Detected or >100,000,000 Detected . The yu EBV test is intended for use as an aid in the management of EBV in transplant patients. In patients undergoing monitoring of EBV, serial DNA measurements can be used to indicate the need for potential treatment changes and to assess response to treatment. The results from yu EBV are intended to be read and analyzed by a qualified licensed healthcare professional in conjunction with clinical signs and symptoms and relevant laboratory findings. Negative test results do not preclude EBV infection or EBV disease. Test results must not be the sole basis for patient management decisions. This test is approved by the [place] Food and Drug Administration, and its performance characteristics verified by the [facility], Department of Pathology, [facility]. [facility] Work Phone: [facility] Work Phone: Glucose Test strip manual (B ld) [Mass/Vol]on 01-19-2024 Glucose [Mass/Vol] 248 mg/dL High 74 - 99 mg/dL [facility] Interpretation and review of laboratory results Abnormal [facility] Glucose [Mass/Vol] 248 mg/dL High 74-99 [facility] Comment on above: Performed By: #### 1 1253-2 #### NORMA Cherry ([id number]) [facility] ([facility]) [address] [place] [address] Glucose [Mass/Vol] 282 mg/dL High 74 - 99 mg/dL [facility] Interpretation and review of laboratory results Abnormal [facility] Glucose [Mass/Vol] 282 mg/dL High 74-99 [facility] Comment on above: Performed By: #### 1 1253-2 #### NORMA Cherry ([id number]) [facility] ([facility]) [address] [place] [address] 90655 Glucose [Mass/Vol] 349 mg/dL High 74 - 99 mg/dL [facility] Interpretation and review of laboratory results Abnormal [facility] Glucose [Mass/Vol] 349 mg/dL High 74-99 [facility] Comment on above: Performed By: #### 1 1253-2 #### NORMA Cherry ([id number]) [facility] ([facility]) [address] [place] [address]140 Glucose [Mass/Vol] 312 mg/dL High 74 - 99 mg/dL [facility] Interpretation and review of laboratory results Abnormal [facility] Glucose [Mass/Vol] 312 mg/dL High 74-99 [facility] Comment on above: Performed By: #### 1 1253-2 #### NORMA Cherry ([id number]) [facility] ([facility]) [address] [place] [address] 52304 Glucose [Mass/Vol] 351 mg/dL High 74 - 99 mg/dL [facility] Interpretation and review of laboratory results Abnormal [facility] Glucose [Mass/Vol] 351 mg/dL High 74-99 [facility] Comment on above: Performed By: #### 1 1253-2 #### NORMA Chrery ([id number]) [facility] ([facility]) [address] [place] [address] 78949 Glucose [Mass/Vol] 344 mg/dL High 74 - 99 mg/dL [facility] Interpretation and review of laboratory results Abnormal [facility] Glucose [Mass/Vol] 344 mg/dL High 74-99 [facility] Comment on above: Performed By: #### 1 1253-2 #### NORMA Cherry ([id number]) [facility] ([facility]) [address] [place] [address] 39948 Glucose [Mass/Vol] 265 mg/dL High 74 - 99 mg/dL [facility] Interpretation and review of laboratory results Abnormal [facility] Glucose [Mass/Vol] 265 mg/dL High 74-99 [facility] Comment on above: Performed By: #### 1 1253-2 #### NORMA Cherry ([id number]) [facility] ([facility]) [address] [place] [address] HbA1c (Bld) [Mass fraction]o n 01-19-2024 Average glucose Estimated from glycated hemoglobin (Bld) [Mass/Vol] 137 mg/dL Not Established [facility] Interpretation and review of laboratory results Abnormal [facility] Diagnosis of Diabetes-Adults Non-Diabetic: < or = 5.6% Increased risk for developing diabetes: 5.7-6.4% Diagnostic of diabetes: > or = 6.5% Monitoring of Diabetes Age (y)....................... Therapeutic Goal (%) Adults: >18....................... ..<7.0 Pediatrics: 13-18...................<7 .5 Pediatrics: 7-12....................<8 .0 Pediatrics: 0-6..................... 7.5-8.5 [employer]. Diabetes Care 33(S1), Oct 2009 [facility] Average glucose Estimated from glycated hemoglobin (Bld) [Mass/Vol] 137 mg/dL Normal Not Established [facility] Comment on above: Order Comment: NOTE: Result was obtained using a chemiluminescent microparticle immunoassay (CMIA) on the Stem Roller Or Crusher Operator i system. Optimal therapeutic ranges for immunosuppressant drugs depend upon an individual patient's current clinical state, type of organ transplant, time post-transplant, co-administration of other immunosuppressants, and other clinical factors. The results of this test should be correlated with additional clinical and laboratory data before changes in treatment regimens are made. Performed By: #### 1 1253-2 #### NORMA Cherry ([id number]) [facility] ([facility]) [address] [place] [address] Hemoglobin A1con 01-19-2024 HbA1c (Bld) [Mass fraction] 6.4 % High see below [facility] Hemoglobin A1c/Hemoglobin.to john 01-19-2024 HbA1c (Bld) [Mass fraction] 6.4 % High see below [facility] Comment on above: Order Comment: NOTE: Result was obtained using a chemiluminescent microparticle immunoassay (CMIA) on the Stem Roller Or Crusher Operator i system. Optimal therapeutic ranges for immunosuppressant drugs depend upon an individual patient's current clinical state, type of organ transplant, time post-transplant, co-administration of other immunosuppressants, and other clinical factors. The results of this test should be correlated with additional clinical and laboratory data before changes in treatment regimens are made. Performed By: #### 1 1253-2 #### NORMA Cherry ([id number]) [facility] ([facility]) [address] [place] [address] Hepatic function 2000 panelo n 01-19-2024 Albumin BCP dye [Mass/Vol] 3.1 g/dL Low 3.4 - 5.0 g/dL [facility] ALP [Catalytic activity/Vol] 271 U/L High 33 - 120 U/L [facility] ALT With P-5'-P [Catalytic activity/Vol] 83 U/L High 10 - 52 U/L [facility] Comment on above: Patients treated wit h Sulfasalazine may generate falsely decreased results for ALT. AST With P-5'-P [Catalytic activity/Vol] 84 U/L High 9 - 39 U/L [facility] Bilirubin [Mass/Vol] 2.3 mg/dL High 0.0 - 1 .2 mg/dL [facility] Bilirubin.direct [Mass/Vol] 1.2 mg/dL High 0.0 - 0.3 mg/dL [facility] Interpretation and review of laboratory results Abnormal [facility] Protein [Mass/Vol] 7.0 g/dL 6.4 - 8.2 g/dL [facility] Albumin BCP dye [Mass/Vol] 3.1 g/dL Low 3.4-5.0 [facility] Comment on above: Performed By: #### 1 1253-2 #### NORMA Cherry ([id number]) [facility] ([facility]) [address] [place] [address] ALP [Catalytic activity/Vol] 271 U/L High 33-120 [facility] Comment on above: Performed By: #### 1 1253-2 #### NORMA Cherry ([id number]) [facility] ([facility]) [address] [place] [address]1469 ALT With P-5'-P [Catalytic activity/Vol] 83 U/L High 10-52 [facility] Comment on above: Result Comment: Batool ents treated with Sulfasalazine may generate falsely decreased results for ALT. Performed By: #### 1 1253-2 #### NORMA Cherry ([id number]) [facility] ([facility]) [address] [place] [address] AST With P-5'-P [Catalytic activity/Vol] 84 U/L High 9-39 [facility] Comment on above: Performed By: #### 1 1253-2 #### NORMA Cherry ([id number]) [facility] ([facility]) [address] [place] [address] Bilirubin [Mass/Vol] 2.3 mg/dL High 0.0-1.2 [facility] Comment on above: Performed By: #### 1 1253-2 #### NORMA Cherry ([id number]) [facility] ([facility]) [address] [place] [address] Bilirubin.direct [Mass/Vol] 1.2 mg/dL High 0.0-0.3 [facility] Comment on above: Performed By: #### 1 1253-2 #### NORMA Cherry ([id number]) [facility] ([facility]) [address] [place] [address] 78221 Protein [Mass/Vol] 7.0 g/dL Normal 6.4-8.2 [facility] Comment on above: Performed By: #### 1 1253-2 #### NORMA Cherry ([id number]) [facility] ([facility]) [address] [place], [place] [phone] Magnesiumon 01-19-2024 Magnesium [Mass/Vol] 2.27 mg/dL 1.60 - 2.40 mg/dL [facility] Magnesium [Mass/Vol] 2.27 mg/dL Normal 1.60-2.40 [facility] Comment on above: Performed By: #### 1 1253-2 #### NORMA Cherry ([id number]) [facility] ([facility]) [address] [place], [place] [phone] No Panel Informationon 01-18 [facility] Interpretation and review of laboratory results Normal [facility] Interpretation and review of laboratory results Abnormal [facility] PT and aPTT panel Coag (PPP) on 01-19-2024 aPTT Coag (PPP) [Time] 30 s [facility] INR Coag (PPP) [Relative time] 1.2 {INR} High 0.9 - 1.1 [facility] Interpretation and review of laboratory results Abnormal [facility] PT Coag (PPP) [Time] 13.[address] [facility] The APTT is no longe r used for monitoring Unfractionated Heparin Therapy. For monitoring Heparin Therapy, use the Heparin Assay. [facility] aPTT Coag (PPP) [Time] 30 s Normal 27-38 [facility] Comment on above: Order Comment: NOTE: Result was obtained using a chemiluminescent microparticle immunoassay (CMIA) on the Stem Roller Or Crusher Operator i system. Optimal therapeutic ranges for immunosuppressant drugs depend upon an individual patient's current clinical state, type of organ transplant, time post-transplant, co-administration of other immunosuppressants, and other clinical factors. The results of this test should be correlated with additional clinical and laboratory data before changes in treatment regimens are made. Performed By: #### 1 1253-2 #### NORMA Cherry ([id number]) [facility] ([facility]) [address] [place] [address] 02067 INR Coag (PPP) [Relative time] 1.2 High 0.9-1.1 [facility] Comment on above: Order Comment: NOTE: Result was obtained using a chemiluminescent microparticle immunoassay (CMIA) on the Stem Roller Or Crusher Operator i system. Optimal therapeutic ranges for immunosuppressant drugs depend upon an individual patient's current clinical state, type of organ transplant, time post-transplant, co-administration of other immunosuppressants, and other clinical factors. The results of this test should be correlated with additional clinical and laboratory data before changes in treatment regimens are made. Performed By: #### 1 1253-2 #### NORMA Cherry ([id number]) [facility] ([facility]) [address] [place] [address] 22012 PT Coag (PPP) [Time] 13.3 s High 9.8-12.8 [facility] Comment on above: Order Comment: NOTE: Result was obtained using a chemiluminescent microparticle immunoassay (CMIA) on the Stem Roller Or Crusher Operator i system. Optimal therapeutic ranges for immunosuppressant drugs depend upon an individual patient's current clinical state, type of organ transplant, time post-transplant, co-administration of other immunosuppressants, and other clinical factors. The results of this test should be correlated with additional clinical and laboratory data before changes in treatment regimens are made. Performed By: #### 1 1253-2 #### NORMA Cherry ([id number]) [facility] ([facility]) [address] [place] [address]690 Phosphateon 01-19-2024 Phosphate [Mass/Vol] 2.5 mg/dL Normal 2.5-4.9 [facility] Comment on above: Result Comment: The performance characteristics of phosphorus testing in heparinized plasma have been validated by the individual laboratory site where testing is performed. Testing on heparinized plasma is not approved by the FDA; however, such approval is not necessary. Performed By: #### 1 1253-2 #### NORMA Cherry ([id number]) [facility] ([facility]) [address] [place] [address]12 Phosphoruson 01-19-2024 Phosphate [Mass/Vol] 2.5 mg/dL 2.5 - 4 .9 mg/dL [facility] Comment on above: The performance aditi acteristics of phosphorus testing in heparinized plasma have been validated by the individual laboratory site where testing is performed. Testing on heparinized plasma is not approved by the FDA; however, such approval is not necessary. Tacrolimuson 01-19-2024 Tacrolimus (Bld) [Mass/Vol] 8.4 ng/mL Normal <=15.0 [facility] Comment on above: Order Comment: NOTE: Result was obtained using a chemiluminescent microparticle immunoassay (CMIA) on the Stem Roller Or Crusher Operator i system. Optimal therapeutic ranges for immunosuppressant drugs depend upon an individual patient's current clinical state, type of organ transplant, time post-transplant, co-administration of other immunosuppressants, and other clinical factors. The results of this test should be correlated with additional clinical and laboratory data before changes in treatment regimens are made. Performed By: #### 1 1253-2 #### NORMA Cherry ([id number]) [facility] ([facility]) [address] [place] [address] 81463 Tacrolimus (Bld) [Mass/Vol]O rdered By: Fracisco Chu on 01-19-2024 Interpretation and review of laboratory results Normal [facility] NOTE: Result was obt ained using a chemiluminescent microparticle immunoassay (CMIA) on the Stem Roller Or Crusher Operator i system. Optimal therapeutic ranges for immunosuppressant drugs depend upon an individual patient's current clinical state, type of organ transplant, time post-transplant, co-administration of other immunosuppressants, and other clinical factors. The results of this test should be correlated with additional clinical and laboratory data before changes in treatment regimens are made. [facility] Tacrolimus levelOrdered By: Fracisco Chu on 01-19-2024 Tacrolimus (Bld) [Mass/Vol] 8.4 ng/mL NINF - 15.0 ng/mL [facility] Urinalysis complete panel (U )on 01-19-2024 Appearance (U) Clear Clear [facility] Bilirubin (U) [Mass/Vol] Negative NEGATIVE [facility] Color (U) Yellow Light-Yellow , Yellow, Dark-Yellow [facility] Glucose Auto test strip (U) [Mass/Vol] Normal Normal mg/dL [facility] Ketones (U) [Mass/Vol] Negative NEGATIVE mg/dL [facility] Leukocyte esterase Auto test strip Ql (U) 25 Cash/ L Abnormal NEGATIVE [facility] Nitrite Auto test strip Ql (U) Negative NEGATIVE [facility] pH (U) 6.0 [pH] 5.0, 5.5, 6.0, 6.5, 7.0, 7.5, 8.0 [facility] Protein (U) [Mass/Vol] Negative NEGATIVE, 10 (TRACE), 20 (TRACE) mg/dL [facility] RBC (U) [#/Vol] 0.03 (TRACE) Abnormal NEGATIVE [facility] Specific gravity (U) [Rel density] 1.011 1.005 - 1.035 [facility] Urobilinogen (U) [Mass/Vol] 3 (1+) Abnormal Normal mg/dL [facility] Comment on above: Some pigments and me dications may cause a false positive urobilinogen. Urinalysis microscopic panel Auto Ql (U)on 01-19-2024 Calcium oxalate crystals Computer assisted (U) [#/Area] 1+ NONE, 1+ /HPF [facility] Mucus Auto (Urine sed) [#/Area] FEW Reference range not established. /LPF [facility] RBC Auto (Urine sed) [#/Area] 3-5 NONE, 1-2, 3-5 /HPF [facility] WBC Auto (Urine sed) [#/Area] 6-10 Abnormal 1-5, NONE /HPF [facility] Bacteria identifiedon 2023 Bacteria identified Cx Nom (Bld) Test: Blood Culture Specimen Source: Peripheral Venipuncture Specimen Type: Blood culture Specimen Date: 01/18/[id number] Result Date: 01/22/20242300 Result Status: Final result Abnormal: No Resulting Lab: [facility] [address] [place] [address] CULTURE No growth at 4 days - FINAL REPORT Normal [facility] Comment on above: Performed By: #### 1 1253-2 #### NORMA Cherry ([id number]) [facility] ([facility]) [address] [place] [address] CBC W Auto Differential pane l (Bld)on 01-18-2024 Basophils (Bld) [#/Vol] 0.04 10*3/uL [facility] Basophils/100 WBC (Bld) 0.8 % 0.0 - 2.0 % [facility] Eosinophils (Bld) [#/Vol] 0.08 10*3/uL [facility] Eosinophils/100 WBC (Bld) 1.5 % 0.0 - 6.0 % [facility] Erythrocyte distribution width (RBC) [Ratio] 13.2 % 11.5 - 14.5 % [facility] Hematocrit (Bld) [Volume fraction] 34.7 % Low 41.0 - 52.0 % [facility] Hemoglobin (Bld) [Mass/Vol] 11.5 g/dL Low 13.5 - 17.5 g/dL [facility] Immature granulocytes (Bld) [#/Vol] 0.01 10*3/uL [facility] Immature granulocytes/100 WBC (Bld) 0.2 % 0.0 - 0.9 % [facility] Comment on above: Immature Granulocyte Count (IG) includes promyelocytes, myelocytes and metamyelocytes but does not include bands. Percent differential counts (%) should be interpreted in the context of the absolute cell counts (cells/UL). Interpretation and review of laboratory results Abnormal [facility] Lymphocytes (Bld) [#/Vol] 1.62 10*3/uL [facility] Lymphocytes/100 WBC (Bld) 31.3 % 13.0 - 44.0 % [facility] MCH (RBC) [Entitic mass] 31.2 pg 26.0 - 34.0 pg [facility] MCHC (RBC) [Mass/Vol] 33.1 g/dL 32.0 - 36.0 g/dL [facility] MCV (RBC) [Entitic vol] 94 fL 80 - 100 fL [facility] Monocytes (Bld) [#/Vol] 0.38 10*3/uL [facility] Monocytes/100 WBC (Bld) 7.3 % 2.0 - 10.0 % [facility] Neutrophils (Bld) [#/Vol] 3.05 10*3/uL [facility] Comment on above: Percent differential counts (%) should be interpreted in the context of the absolute cell counts (cells/uL). Neutrophils/100 WBC (Bld) 58.9 % 40.0 - 80.0 % [facility] Nucleated RBC/100 WBC (Bld) [Ratio] 0.0 % [facility] Platelets (Bld) [#/Vol] 109 10*3/uL Low [facility] RBC (Bld) [#/Vol] 3.69 10*6/uL [facility] WBC (Bld) [#/Vol] 5.2 10*3/uL [facility] Basophils (Bld) [#/Vol] 0.04 x10*3/uL Normal 0.00-0.10 [facility] Comment on above: Performed By: #### 1 1253-2 #### NORMA Cherry ([id number]) [facility] ([facility]) [address] [place] [address] Basophils/100 WBC (Bld) 0.8 % Normal 0.0-2.0 [facility] Comment on above: Performed By: #### 1 1253-2 #### NORMA VILLAMOTZGEM L ([id number]) [facility] ([facility]) [address] [place] [address] Eosinophils (Bld) [#/Vol] 0.08 x10*3/uL Normal 0.00-0.70 [facility] Comment on above: Performed By: #### 1 1253-2 #### NORMA VILLAMOKRISTAL L ([id number]) [facility] ([facility]) [address] [place] [address] Eosinophils/100 WBC (Bld) 1.5 % Normal 0.0-6.0 [facility] Comment on above: Performed By: #### 1 1253-2 #### NORMA ADHIKARI L ([id number]) [facility] ([facility]) [id number] [place] [address]149 Erythrocyte distribution width (RBC) [Ratio] 13.2 % Normal 11.5-14.5 [facility] Comment on above: Performed By: #### 1 1253-2 #### NORMA Cherry ([id number]) [facility] ([facility]) [address] [place] [address]57 Hematocrit (Bld) [Volume fraction] 34.7 % Low 41.0-52.0 [facility] Comment on above: Performed By: #### 1 1253-2 #### NORMA Cherry ([id number]) [facility] ([facility]) [address] [place] [address]17 Hemoglobin (Bld) [Mass/Vol] 11.5 g/dL Low 13.5-17.5 [facility] Comment on above: Performed By: #### 1 1253-2 #### NORMA Cherry ([id number]) [facility] ([facility]) [address] [place] [address] 02470 Immature granulocytes (Bld) [#/Vol] 0.01 x10*3/uL Normal 0.00-0.70 [facility] Comment on above: Performed By: #### 1 1253-2 #### NORMA Cherry ([id number]) [facility] ([facility]) [address] [place] [address] 97996 Immature granulocytes/100 WBC (Bld) 0.2 % Normal 0.0-0.9 [facility] Comment on above: Result Comment: Nicole ture Granulocyte Count (IG) includes promyelocytes, myelocytes and metamyelocytes but does not include bands. Percent differential counts (%) should be interpreted in the context of the absolute cell counts (cells/UL). Performed By: #### 1 1253-2 #### NORMA Cherry ([id number]) [facility] ([facility]) [id number] [place] [address]20 Lymphocytes (Bld) [#/Vol] 1.62 x10*3/uL Normal 1.20-4.80 [facility] Comment on above: Performed By: #### 1 1253-2 #### NORMA Cherry ([id number]) [facility] ([facility]) [address] [place] [address] 30512 Lymphocytes/100 WBC (Bld) 31.3 % Normal 13.0-44.0 [facility] Comment on above: Performed By: #### 1 1253-2 #### NORMA Cherry ([id number]) [facility] ([facility]) [address] [place] [address] 70518 MCH (RBC) [Entitic mass] 31.2 pg Normal 26.0-34.0 [facility] Comment on above: Performed By: #### 1 1253-2 #### NORMA Cherry ([id number]) [facility] ([facility]) [address] [place] [address] 60266 MCHC (RBC) [Mass/Vol] 33.1 g/dL Normal 32.0-36.0 [facility] Comment on above: Performed By: #### 1 1253-2 #### NORMA Cherry ([id number]) [facility] ([facility]) [address] [place] [address] 07000 MCV (RBC) [Entitic vol] 94 fL Normal 80-100 [facility] Comment on above: Performed By: #### 1 1253-2 #### NORMA Cherry ([id number]) [facility] ([facility]) [address] [place] [address] 85199 Monocytes (Bld) [#/Vol] 0.38 x10*3/uL Normal 0.10-1.00 [facility] Comment on above: Performed By: #### 1 1253-2 #### NORMA Cherry ([id number]) [facility] ([facility]) [address] [place] [address] 64743 Monocytes/100 WBC (Bld) 7.3 % Normal 2.0-10.0 [facility] Comment on above: Performed By: #### 1 1253-2 #### NORMA Cherry ([id number]) [facility] ([facility]) [address] [place] [address] Neutrophils (Bld) [#/Vol] 3.05 x10*3/uL Normal 1.20-7.70 [facility] Comment on above: Result Comment: Perc ent differential counts (%) should be interpreted in the context of the absolute cell counts (cells/uL). Performed By: #### 1 1253-2 #### NORMA Cherry ([id number]) [facility] ([facility]) [address] [place] [address] Neutrophils/100 WBC (Bld) 58.9 % Normal 40.0-80.0 [facility] Comment on above: Performed By: #### 1 1253-2 #### NORMA Cherry ([id number]) [facility] ([facility]) [address] [address] 44521 Nucleated RBC/100 WBC (Bld) [Ratio] 0.0 /100 WBCs Normal 0.0-0.0 [facility] Comment on above: Performed By: #### 1 1253-2 #### NORMA Cherry ([id number]) [facility] ([facility]) [address] [place] [address] Platelets (Bld) [#/Vol] 109 x10*3/uL Low 150-450 [facility] Comment on above: Performed By: #### 1 1253-2 #### NORMA Cherry ([id number]) [facility] ([facility]) [id number] [place] [address] 00087 RBC (Bld) [#/Vol] 3.69 x10*6/uL Low 4.50-5.90 [facility] Comment on above: Performed By: #### 1 1253-2 #### NORMA ADHIKARI L ([id number]) [facility] ([facility]) [address] [place] [address] 97968 WBC (Bld) [#/Vol] 5.2 x10*3/uL Normal 4.4-11.3 [facility] Comment on above: Performed By: #### 1 1253-2 #### NORMA Cherry ([id number]) [facility] ([facility]) [address] [place], [place] [id number] CMV DNA LÁZARO+probe Qn (P)on 0 01-18-2024 CMV DNA RESULT Not detected Normal Not Detected [facility] Comment on above: Order Comment: NOTE: Result was obtained using a chemiluminescent microparticle immunoassay (CMIA) on the Stem Roller Or Crusher Operator i system. Optimal therapeutic ranges for immunosuppressant drugs depend upon an individual patient's current clinical state, type of organ transplant, time post-transplant, co-administration of other immunosuppressants, and other clinical factors. The results of this test should be correlated with additional clinical and laboratory data before changes in treatment regimens are made. Performed By: #### 1 1253-2 #### NORMA Cherry ([id number]) [facility] ([facility]) [address] [place] [address] 09491 CYTOMEGALOVIRUS DNA, PCR LOG IU/ML Normal [facility] Comment on above: Order Comment: NOTE: Result was obtained using a chemiluminescent microparticle immunoassay (CMIA) on the Stem Roller Or Crusher Operator i system. Optimal therapeutic ranges for immunosuppressant drugs depend upon an individual patient's current clinical state, type of organ transplant, time post-transplant, co-administration of other immunosuppressants, and other clinical factors. The results of this test should be correlated with additional clinical and laboratory data before changes in treatment regimens are made. Result Comment: Not calculated Performed By: #### 1 1253-2 #### NORMA Cherry ([id number]) [facility] ([facility]) [address] [place] [address] 73935 Comprehensive metabolic 2000 panelon 01-18-2024 Albumin BCP dye [Mass/Vol] 2.8 g/dL Low 3.4 - 5.0 g/dL [facility] ALP [Catalytic activity/Vol] 233 U/L High 33 - 120 U/L [facility] ALT With P-5'-P [Catalytic activity/Vol] 78 U/L High 10 - 52 U/L [facility] Comment on above: Patients treated wit h Sulfasalazine may generate falsely decreased results for ALT. Anion gap [Moles/Vol] 9 mmol/L Low 10 - 2 0 mmol/L [facility] AST With P-5'-P [Catalytic activity/Vol] 90 U/L High 9 - 39 U/L [facility] Bilirubin [Mass/Vol] 2.0 mg/dL High 0.0 - 1 .2 mg/dL [facility] Calcium [Mass/Vol] 8.8 mg/dL 8.6 - 10. 6 mg/dL [facility] Chloride [Moles/Vol] 102 mmol/L 98 - 10 7 mmol/L [facility] CO2 [Moles/Vol] 32 mmol/L 21 - 32 mmol/L [facility] Creatinine [Mass/Vol] 0.91 mg/dL 0.50 - 1.30 mg/dL [facility] eGFR - PINF [facility] Comment on above: Calculations of zander mated GFR are performed using the 2020 CKD-EPI Study Refit equation without the race variable for the IDMS-Traceable creatinine methods. https://jasn.asnjournals.org/content/early//ASN.799944 8619 Glucose [Mass/Vol] 179 mg/dL High 74 - 99 mg/dL [facility] Potassium [Moles/Vol] 3.6 mmol/L 3.5 - 5.3 mmol/L [facility] Protein [Mass/Vol] 6.5 g/dL 6.4 - 8.2 g/dL [facility] Sodium [Moles/Vol] 139 mmol/L 136 - 145 mmol/L [facility] Urea nitrogen [Mass/Vol] 19 mg/dL 6 - 23 mg/dL [facility] Albumin BCP dye [Mass/Vol] 2.8 g/dL Low 3.4-5.0 [facility] Comment on above: Performed By: #### 1 1253-2 #### NORMA Cherry ([id number]) [facility] ([facility]) [address] [place] [address] ALP [Catalytic activity/Vol] 233 U/L High 33-120 [facility] Comment on above: Performed By: #### 1 1253-2 #### NORMA Cherry ([id number]) [facility] ([facility]) [address] [place] [address] ALT With P-5'-P [Catalytic activity/Vol] 78 U/L High 10-52 [facility] Comment on above: Result Comment: Batool ents treated with Sulfasalazine may generate falsely decreased results for ALT. Performed By: #### 1 1253-2 #### NORMA ADHIKARI L ([id number]) [facility] ([facility]) [address] [place] [address] Anion gap [Moles/Vol] 9 mmol/L Low 10-20 [facility] Comment on above: Performed By: #### 1 1253-2 #### NORMA Cherry ([id number]) [facility] ([facility]) [address] [place] [address] AST With P-5'-P [Catalytic activity/Vol] 90 U/L High 9-39 [facility] Comment on above: Performed By: #### 1 1253-2 #### NORMA ADHIKARI L ([id number]) [facility] ([facility]) [address] [place] [address] Bilirubin [Mass/Vol] 2.0 mg/dL High 0.0-1.2 [facility] Comment on above: Performed By: #### 1 1253-2 #### NORMA Cherry ([id number]) [facility] ([facility]) [address] [place] [address] Calcium [Mass/Vol] 8.8 mg/dL Normal 8.6-10.6 [facility] Comment on above: Performed By: #### 1 1253-2 #### NORMA ADHIKARI L ([id number]) [facility] ([facility]) [address] [place] [address] Chloride [Moles/Vol] 102 mmol/L Normal 98-107 [facility] Comment on above: Performed By: #### 1 1253-2 #### NORMA ADHIKARI L ([id number]) [facility] ([facility]) [address] [place] [address] CO2 [Moles/Vol] 32 mmol/L Normal 21-32 [facility] Comment on above: Performed By: #### 1 1253-2 #### NOMRA Cherry ([id number]) [facility] ([facility]) [address] [place] [address] Creatinine [Mass/Vol] 0.91 mg/dL Normal 0.50-1.30 [facility] Comment on above: Performed By: #### 1 1253-2 #### NORMA Cherry ([id number]) [facility] ([facility]) [address] [place] [address] GFR/1.73 sq M.predicted MDRD (S/P/Bld) [Vol rate/Area] mL/min/{1.73_m2} Normal >60 [facility] Comment on above: Result Comment: Calc ulations of estimated GFR are performed using the 2020 CKD-EPI Study Refit equation without the race variable for the IDMS-Traceable creatinine methods. https://jasn.asnjournals.org/content//ASN.046223 7708 Performed By: #### 1 1253-2 #### NORMA Cherry ([id number]) [facility] ([facility]) [address] [place] [address] Glucose [Mass/Vol] 179 mg/dL High 74-99 [facility] Comment on above: Performed By: #### 1 1253-2 #### NORMA Cherry ([id number]) [facility] ([facility]) [address] [place] [address] Potassium [Moles/Vol] 3.6 mmol/L Normal 3.5-5.3 [facility] Comment on above: Performed By: #### 1 1253-2 #### NORMA Cherry ([id number]) [facility] ([facility]) [address] [place] [address] Protein [Mass/Vol] 6.5 g/dL Normal 6.4-8.2 [facility] Comment on above: Performed By: #### 1 1253-2 #### NORMA Cherry ([id number]) [facility] ([facility]) [address] [place] [address] 96080 Sodium [Moles/Vol] 139 mmol/L Normal 136-145 [facility] Comment on above: Performed By: #### 1 1253-2 #### NORMA Cherry ([id number]) [facility] ([facility]) [address] [place] [address] 38009 Urea nitrogen [Mass/Vol] 19 mg/dL Normal 6-23 [facility] Comment on above: Performed By: #### 1 1253-2 #### NORMA Cherry ([id number]) [facility] ([facility]) [address] [place] [address] 44555 EBV DNA LÁZARO+probe Qnon 01-17 EBV DNA LÁZARO+probe (Unsp spec) [Log #/Vol] Normal [facility] Comment on above: Order Comment: NOTE: Result was obtained using a chemiluminescent microparticle immunoassay (CMIA) on the Stem Roller Or Crusher Operator i system. Optimal therapeutic ranges for immunosuppressant drugs depend upon an individual patient's current clinical state, type of organ transplant, time post-transplant, co-administration of other immunosuppressants, and other clinical factors. The results of this test should be correlated with additional clinical and laboratory data before changes in treatment regimens are made. Result Comment: Not calculated Performed By: #### 1 1253-2 #### NORMA Cherry ([id number]) [facility] ([facility]) [address] [place] [address] 89589 Laboratory comment Haroon (Report) Not detected Normal Not Detected [facility] Comment on above: Order Comment: NOTE: Result was obtained using a chemiluminescent microparticle immunoassay (CMIA) on the Stem Roller Or Crusher Operator i system. Optimal therapeutic ranges for immunosuppressant drugs depend upon an individual patient's current clinical state, type of organ transplant, time post-transplant, co-administration of other immunosuppressants, and other clinical factors. The results of this test should be correlated with additional clinical and laboratory data before changes in treatment regimens are made. Performed By: #### 1 1253-2 #### NORMA Cherry ([id number]) [facility] ([facility]) [address] [place], [place] [id number] Magnesiumon 01-18-2024 Magnesium [Mass/Vol] 1.49 mg/dL Low 1.60 - 2.40 mg/dL [facility] Magnesium [Mass/Vol] 1.49 mg/dL Low 1.60-2.40 [facility] Comment on above: Performed By: #### 1 1253-2 #### NORMA Cherry ([id number]) [facility] ([facility]) [address] [place], [place] [id number] No Panel Informationon 01-17 Interpretation and review of laboratory results Abnormal [facility] PT and aPTT panel Coag (PPP) on 01-18-2024 aPTT Coag (PPP) [Time] 30 s [facility] INR Coag (PPP) [Relative time] 1.2 {INR} High 0.9 - 1.1 [facility] Interpretation and review of laboratory results Abnormal [facility] PT Coag (PPP) [Time] 13.[address] [facility] The APTT is no longe r used for monitoring Unfractionated Heparin Therapy. For monitoring Heparin Therapy, use the Heparin Assay. [facility] aPTT Coag (PPP) [Time] 30 s Normal 27-38 [facility] Comment on above: Order Comment: NOTE: Result was obtained using a chemiluminescent microparticle immunoassay (CMIA) on the Stem Roller Or Crusher Operator i system. Optimal therapeutic ranges for immunosuppressant drugs depend upon an individual patient's current clinical state, type of organ transplant, time post-transplant, co-administration of other immunosuppressants, and other clinical factors. The results of this test should be correlated with additional clinical and laboratory data before changes in treatment regimens are made. Performed By: #### 1 1253-2 #### NORMA Cherry ([id number]) [facility] ([facility]) [address] [place] [address] 94161 INR Coag (PPP) [Relative time] 1.2 High 0.9-1.1 [facility] Comment on above: Order Comment: NOTE: Result was obtained using a chemiluminescent microparticle immunoassay (CMIA) on the Stem Roller Or Crusher Operator i system. Optimal therapeutic ranges for immunosuppressant drugs depend upon an individual patient's current clinical state, type of organ transplant, time post-transplant, co-administration of other immunosuppressants, and other clinical factors. The results of this test should be correlated with additional clinical and laboratory data before changes in treatment regimens are made. Performed By: #### 1 1253-2 #### NORMA Cherry ([id number]) [facility] ([facility]) [address] [place] [address] 96499 PT Coag (PPP) [Time] 13.7 s High 9.8-12.8 [facility] Comment on above: Order Comment: NOTE: Result was obtained using a chemiluminescent microparticle immunoassay (CMIA) on the Stem Roller Or Crusher Operator i system. Optimal therapeutic ranges for immunosuppressant drugs depend upon an individual patient's current clinical state, type of organ transplant, time post-transplant, co-administration of other immunosuppressants, and other clinical factors. The results of this test should be correlated with additional clinical and laboratory data before changes in treatment regimens are made. Performed By: #### 1 1253-2 #### NORMA Cherry ([id number]) [facility] ([facility]) [address] [place] [address] 99987 Phosphateon 01-18-2024 Phosphate [Mass/Vol] 4.2 mg/dL Normal 2.5-4.9 [facility] Comment on above: Result Comment: The performance characteristics of phosphorus testing in heparinized plasma have been validated by the individual laboratory site where testing is performed. Testing on heparinized plasma is not approved by the FDA; however, such approval is not necessary. Performed By: #### 1 1253-2 #### NORMA Cherry ([id number]) [facility] ([facility]) [address] [place] [address] 54132 Phosphate [Mass/Vol]on 01-17 Interpretation and review of laboratory results [facility] Phosphoruson 01-18-2024 Phosphate [Mass/Vol] 4.2 mg/dL 2.5 - 4 .9 mg/dL [facility] Comment on above: The performance aditi acteristics of phosphorus testing in heparinized plasma have been validated by the individual laboratory site where testing is performed. Testing on heparinized plasma is not approved by the FDA; however, such approval is not necessary. Urinalysis complete panel (U )on 01-18-2024 Appearance (U) Clear Normal Clear [facility] Comment on above: Performed By: #### 1 1253-2 #### NORMA ADHIKARI L ([id number]) [facility] ([facility]) [address] [place] [address] 16590 Bilirubin (U) [Mass/Vol] Negative Normal NEGATIVE [facility] Comment on above: Performed By: #### 1 1253-2 #### NORMA ADHIKARI L ([id number]) [facility] ([facility]) [address] [place] [address] 35675 Color (U) Yellow Normal Light-Yellow , Yellow, Dark-Yellow [facility] Comment on above: Performed By: #### 1 1253-2 #### NORMA ADHIKARI L ([id number]) [facility] ([facility]) [address] [place] [address] 67794 Glucose Auto test strip (U) [Mass/Vol] Normal Normal Normal [facility] Comment on above: Performed By: #### 1 1253-2 #### NORMA VILLAMOOLVINER L ([id number]) [facility] ([facility]) [address] [place] [address] 66287 Ketones (U) [Mass/Vol] Negative Normal NEGATIVE [facility] Comment on above: Performed By: #### 1 1253-2 #### NORMA VILLAMOKRISTAL L ([id number]) [facility] ([facility]) [address] [place] [address] 58367 Leukocyte esterase Auto test strip Ql (U) 25 Cash/???L Abnormal NEGATIVE [facility] Comment on above: Performed By: #### 1 1253-2 #### NORMA VILLAMOTZER L ([id number]) [facility] ([facility]) [address] [place] [address] 30062 Nitrite Auto test strip Ql (U) Negative Normal NEGATIVE [facility] Comment on above: Performed By: #### 1 1253-2 #### NORMA Cherry ([id number]) [facility] ([facility]) [address] [place] [address] pH (U) 6.0 [pH] Normal 5.0, 5.5, 6.0, 6.5, 7.0, 7.5, 8.0 [facility] Comment on above: Performed By: #### 1 1253-2 #### NORMA Cherry ([id number]) [facility] ([facility]) [address] [place] [address] Protein (U) [Mass/Vol] Negative Normal NEGATIVE, 10 (TRACE), 20 (TRACE) [facility] Comment on above: Performed By: #### 1 1253-2 #### NORMA Cherry ([id number]) [facility] ([facility]) [address] [place], [place] [address] RBC (U) [#/Vol] 0.03 (TRACE) Abnormal NEGATIVE [facility] Comment on above: Performed By: #### 1 1253-2 #### NORMA Cherry ([id number]) [facility] ([facility]) [address] [place], [place] [address] Specific gravity (U) [Rel density] 1.011 Normal 1.005-1.035 [facility] Comment on above: Performed By: #### 1 1253-2 #### NORMA Cherry ([id number]) [facility] ([facility]) [address] [place] [address] 98251 Urobilinogen (U) [Mass/Vol] 3 (1+) Abnormal Normal [facility] Comment on above: Result Comment: Some pigments and medications may cause a false positive urobilinogen. Performed By: #### 1 1253-2 #### NORMA Cherry ([id number]) [facility] ([facility]) [address] [place] [address] 69114 Urinalysis microscopic panel Auto Ql (U)on 01-18-2024 Calcium oxalate crystals Computer assisted (U) [#/Area] 1+ /HPF Normal NONE, 1+ [facility] Comment on above: Performed By: #### 1 1253-2 #### NORMA Cherry ([id number]) [facility] ([facility]) [address] [place] [address] Mucus Auto (Urine sed) [#/Area] FEW Normal Reference range not established. [facility] Comment on above: Performed By: #### 1 1253-2 #### NORMA VILLAMOTZER L ([id number]) [facility] ([facility]) [address] [place] [address] RBC Auto (Urine sed) [#/Area] 3-5 Normal NONE, 1-2, 3-5 [facility] Comment on above: Performed By: #### 1 1253-2 #### NORMA RANGELTZER Dilip ([id number]) [facility] ([facility]) [address] [place] [address] WBC Auto (Urine sed) [#/Area] 6-10 Abnormal 1-5, NONE [facility] Comment on above: Performed By: #### 1 1253-2 #### NORMA Cherry ([id number]) [facility] ([facility]) [address] [place] [address] 94951 Surgical pathology studyon 0 01-17-2024 Surgical pathology study Pathology report.total SEE COMMENT Surgical Pathology Case: [id number] Authorizing Provider: Татьяна Eid MD Collected: 01/17/2024 1000 Ordering Location: [facility] Received: 01/17/2024 [facility] Pathologist: Kenn Diaz MD Specimen: LIVER TRANSPLANT BIOPSY Path report.final diagnosis SEE COMMENT A. LIVER TRANSPLANT BIOPSY: -- Liver with bile duct injury, portal inflammation, endotheliitis (COULTER score=4) and lobular inflammation, see note Note: Sections show liver parenchyma with focal bridging fibrosis. Portal tracts show inflammatory cells composed of lymphocytes, with bile duct injury and endotheliitis. Lobular inflammation is evident with predominantly lymphocytes and some plasma cells. Sinusoidal infiltration by lymphocytes is present. Endothelitiitis is also seen in central venule. Iron stain is negative, PAS-D stain is negative. 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 The overall histological findings are suggestive of acute cellular rejection with sinsusoidal and hepatitic patterns of injury. CK7, CK19 and C4d immunstains have been ordered and results will be reported in addendum. Rejection Activity Index (COULTER score) Portal inflammation (0-3) 1 Bile duct inflammation/damage (0-3) 2 Venous endothelial inflammation (0-3) 1 Total COULTER = 4/9 Laboratory comment By the signature on this report, the individual or group listed as making the Final Interpretation/Diagnosis certifies that they have reviewed this case. Path report.comments Preliminary result was communicated to Dr.Pierre Ayoub at 5:20 pm on 01/17/2024 by email. Path report.addendum SEE COMMENT C4d immunostain is negative. CK7 highlights bile ducts and cholestatic hepatocytes. CK19 highlights bile ducts. Based on H&E, CK7 and CK19 stains, the bile duct is present in 9 out of 11 recognizable portal tracts. Addendum electronically signed by Kenn Diaz MD on 01/22/2024 at 4:34 PM Path report.relevant Hx Hx liver transplant 04/08/2016, new findings on US suggestive of cirrhosis. AKP 242, AST 93 and ALT 81 on 01/04/04. ACR in 2017. Path report.gross observation SEE COMMENT Received in formalin, labeled with the patient's name and hospital number and liver transplant , are 2 cylindrical segments of stevenson-red soft tissue measuring 1.7 cm and 1.7 cm in length by < 0.1 cm in diameter. The specimen is submitted in toto in 1 cassette. [facility] AP ASR DISCLAIMER One or more of the reagents used to perform assays on this specimen MAY have contained components considered to be analyte specific reagents (ASR's). ASR's have not been cleared or approved by the U.S. Food and Drug Administration. These assays were developed and their performance characteristics determined by the Department of Pathology at [facility]. The FDA does not require this test to go through premarket FDA review. This test is used for clinical purposes. It should not be regarded as investigational or for research. This laboratory is certified under the Clinical Laboratory Improvement Amendments (CLIA) as qualified to perform high complexity clinical laboratory testing. The assays were performed with appropriate positive and negative controls which stained appropriately. [facility] US GUIDED NEEDLE LIVER BIOPS Yon 01-17-2024 US GUIDED NEEDLE LIVER BIOPSY Interpreted By: Татьяна Eid and Meyers Emily STUDY: US GUIDED NEEDLE LIVER BIOPSY; 01/17/2024 9:59 am INDICATION: Signs/Symptoms:s/p liver transplant, elevated LFT's, ultrasound changes. previous biopsy not enough tissue.. COMPARISON: Liver ultrasound 01/09/2024 ACCESSION NUMBER(S): [id number] ORDERING CLINICIAN: SHARAN AYOUB TECHNIQUE: INTERVENTIONALIST(S): Dr. Татьяна Eid MD CONSENT: The patient/patient's POA/next of kin was informed of the nature of the proposed procedure. The purposes, alternatives, risks, and benefits were explained and discussed. All questions were answered and consent was obtained. SEDATION: Moderate conscious IV sedation services (supervision of administration, induction, and maintenance) were provided by the physician performing the procedure with intravenous fentanyl 100mcg and versed 2mg from 9:50 a.m.-10 a.m.. The physician was assisted by an independent trained observer, an interventional radiology nurse, in the continuous monitoring of patient level of consciousness and physiologic status. MEDICATION/CONTRAST: No additional. TIME OUT: A time out was performed immediately prior to procedure start with the interventional team, correctly identifying the patient name, date of , MRN, procedure, anatomy (including marking of site and side), patient position, procedure consent form, relevant laboratory and imaging test results, antibiotic administration, safety precautions, and procedure-specific equipment needs. COMPLICATIONS: No immediate adverse events identified. FINDINGS: The patient was placed in the supine position. Limited sonographic images of the right upper quadrant were obtained for purposes of needle guidance, which demonstrated similar appearance of slight increased echogenicity of a transplant liver with small amount of adjacent perihepatic ascites, similar when compared to recent diagnostic ultrasound liver 01/09/2024. The area of concern was prepped and draped under sterile technique. 1% lidocaine was injected subcutaneously and then into the deeper tissues surrounding the targeted area for biopsy. An 18 gauge core biopsy needle was passed via a 17 gauge coaxial introducer needle to obtain a total of 2 core samples. Gelfoam was administered along the biopsy tract. Postprocedure images demonstrate no evidence for hemorrhage. The patient tolerated the procedure well and there were no immediate complications. Specimen(s) sent to pathology. IMPRESSION: 1. Status post successful ultrasound guided core needle biopsy of a transplant liver. Specimen(s) Sent to pathology. I was present for and/or performed the critical portions of the procedure and immediately available throughout the entire procedure. I personally reviewed the image(s) / study and interpretation. I agree with the findings as stated. Performed and dictated at [facility]. MACRO: None. Signed by: Татьяна Eid 01/17/2024 5:06 PM Dictation workstation: [id number] [facility] US Guidance for biopsy of Ami mattson 01-17-2024 1. Status post succe ssful ultrasound guided core needle biopsy of a transplant liver. Specimen(s) Sent to pathology. I was present for and/or performed the critical portions of the procedure and immediately available throughout the entire procedure. I personally reviewed the image(s) / study and interpretation. I agree with the findings as stated. Performed and dictated at [facility]. MACRO: None. Signed by: Татьяна Eid 01/17/2024 5:06 PM Dictation workstation: [id number] [facility] Interpreted By: Татьяна Eid and Meyers Emily STUDY: US GUIDED NEEDLE LIVER BIOPSY; 01/17/2024 9:59 am INDICATION: Signs/Symptoms:s/p liver transplant, elevated LFT's, ultrasound changes. previous biopsy not enough tissue.. COMPARISON: Liver ultrasound 01/09/2024 ACCESSION NUMBER(S): [id number] ORDERING CLINICIAN: SHARAN AYOUB TECHNIQUE: INTERVENTIONALIST(S): Dr. Татьяна Eid MD CONSENT: The patient/patient's POA/next of kin was informed of the nature of the proposed procedure. The purposes, alternatives, risks, and benefits were explained and discussed. All questions were answered and consent was obtained. SEDATION: Moderate conscious IV sedation services (supervision of administration, induction, and maintenance) were provided by the physician performing the procedure with intravenous fentanyl 100mcg and versed 2mg from 9:50 a.m.-10 a.m.. The physician was assisted by an independent trained observer, an interventional radiology nurse, in the continuous monitoring of patient level of consciousness and physiologic status. MEDICATION/CONTRAST: No additional. TIME OUT: A time out was performed immediately prior to procedure start with the interventional team, correctly identifying the patient name, date of , MRN, procedure, anatomy (including marking of site and side), patient position, procedure consent form, relevant laboratory and imaging test results, antibiotic administration, safety precautions, and procedure-specific equipment needs. COMPLICATIONS: No immediate adverse events identified. FINDINGS: The patient was placed in the supine position. Limited sonographic images of the right upper quadrant were obtained for purposes of needle guidance, which demonstrated similar appearance of slight increased echogenicity of a transplant liver with small amount of adjacent perihepatic ascites, similar when compared to recent diagnostic ultrasound liver 01/09/2024. The area of concern was prepped and draped under sterile technique. 1% lidocaine was injected subcutaneously and then into the deeper tissues surrounding the targeted area for biopsy. An 18 gauge core biopsy needle was passed via a 17 gauge coaxial introducer needle to obtain a total of 2 core samples. Gelfoam was administered along the biopsy tract. Postprocedure images demonstrate no evidence for hemorrhage. The patient tolerated the procedure well and there were no immediate complications. Specimen(s) sent to pathology. [facility] Татьяна Eid MD - 01/17/2024 Interpreted By: Татьяна Eid and Meyers Emily STUDY: US GUIDED NEEDLE LIVER BIOPSY; 01/17/2024 9:59 am INDICATION: Signs/Symptoms:s/p liver transplant, elevated LFT's, ultrasound changes. previous biopsy not enough tissue.. COMPARISON: Liver ultrasound 01/09/2024 ACCESSION NUMBER(S): [id number] ORDERING CLINICIAN: SHARAN AYOUB TECHNIQUE: INTERVENTIONALIST(S): Dr. Татьяна Eid MD CONSENT: The patient/patient's POA/next of kin was informed of the nature of the proposed procedure. The purposes, alternatives, risks, and benefits were explained and discussed. All questions were answered and consent was obtained. SEDATION: Moderate conscious IV sedation services (supervision of administration, induction, and maintenance) were provided by the physician performing the procedure with intravenous fentanyl 100mcg and versed 2mg from 9:50 a.m.-10 a.m.. The physician was assisted by an independent trained observer, an interventional radiology nurse, in the continuous monitoring of patient level of consciousness and physiologic status. MEDICATION/CONTRAST: No additional. TIME OUT: A time out was performed immediately prior to procedure start with the interventional team, correctly identifying the patient name, date of , MRN, procedure, anatomy (including marking of site and side), patient position, procedure consent form, relevant laboratory and imaging test results, antibiotic administration, safety precautions, and procedure-specific equipment needs. COMPLICATIONS: No immediate adverse events identified. FINDINGS: The patient was placed in the supine position. Limited sonographic images of the right upper quadrant were obtained for purposes of needle guidance, which demonstrated similar appearance of slight increased echogenicity of a transplant liver with small amount of adjacent perihepatic ascites, similar when compared to recent diagnostic ultrasound liver 01/09/2024. The area of concern was prepped and draped under sterile technique. 1% lidocaine was injected subcutaneously and then into the deeper tissues surrounding the targeted area for biopsy. An 18 gauge core biopsy needle was passed via a 17 gauge coaxial introducer needle to obtain a total of 2 core samples. Gelfoam was administered along the biopsy tract. Postprocedure images demonstrate no evidence for hemorrhage. The patient tolerated the procedure well and there were no immediate complications. Specimen(s) sent to pathology. IMPRESSION: 1. Status post successful ultrasound guided core needle biopsy of a transplant liver. Specimen(s) Sent to pathology. I was present for and/or performed the critical portions of the procedure and immediately available throughout the entire procedure. I personally reviewed the image(s) / study and interpretation. I agree with the findings as stated. Performed and dictated at [facility]. MACRO: None. Signed by: Ттаьяна Eid 01/17/2024 5:06 PM Dictation workstation: [id number] [facility] Work Phone: Radiology Study observation (narrative) [facility] Work Phone: US Guidance for biopsy of Li verOrdered By: Татьяна Eid on 01-17-2024 [facility] Work Phone: No Panel Informationon 01-08 Doppler portion of t his exam was within the limits of normal. There was mild nonspecific perihepatic ascites. Also, liver echogenicity was slightly increased and coarsened throughout and liver contours did appear to be slightly with nodular in places. An element of cirrhosis of the liver is not excluded by this exam. Clinical and laboratory correlation are needed. Mild splenomegaly. Nonobstructing stones in both kidneys. Previous cholecystectomy. MACRO: None Signed by: Hugo Darnell 01/09/2024 2:11 PM Dictation workstation: [id number] [facility] Interpreted By: Hugo Garcia, STUDY: US LIVER WITH DOPPLER 01/09/2024 12:23 pm INDICATION: 28 y/o M with Signs/Symptoms:s/p liver transplant, elevated LFT's, right side pain. COMPARISON: Previous exam from 01/26/2023. ACCESSION NUMBER(S): [id number] ORDERING CLINICIAN: SHARAN AYOUB TECHNIQUE: Ultrasound of the abdomen was performed using grayscale imaging, color Doppler, and spectral Doppler. FINDINGS: LIVER: Cranialcaudal length: 11.2cm. Within normal limits for age Echogenicity: Slightly increased and coarsened throughout. In places, the liver contours appear slightly nodular.. Mass: None. GALLBLADDER: Surgically absent. BILE DUCTS: No intrahepatic biliary ductal dilatation. Common bile duct measured 3 mm in diameter. This is within the limits of normal. PANCREAS: Pancreatic head and body were well seen and were unremarkable sonographically. Pancreatic tail was obscured by bowel gas. PERITONEAL FLUID: Very mild perihepatic ascites. SPLEEN: The spleen was mildly enlarged at 13.2 cm length. No focal splenic lesion identified. There was an incidental splenule near the splenic hilum. RIGHT KIDNEY: The right kidney measured 11.4 cm in length. It was sonographically normal for size and echogenicity. There was a nonobstructing upper pole 8 mm stone, a nonobstructing midpole 5 mm stone, and a nonobstructing lower pole 3 mm stone. There was no hydronephrosis, or perinephric collection. LEFT KIDNEY: The left kidney measured 11.8 cm in length. It was sonographically normal for size and echogenicity. There were several small nonobstructing stones measuring 5 mm in diameter or less. There was no hydronephrosis, or perinephric collection. HEPATIC ARTERIES: The following demonstrate patency and appropriate direction of flow: Main hepatic artery RI 0.72; Right hepatic artery RI 0.60; Left hepatic artery RI 0.67; these are within the limits of normal. SPLENIC VEIN: Splenic vein velocity was 22.8 cm/s. HEPATIC AND PORTAL VENOUS BRANCHES: Right, middle and left hepatic venous branches demonstrate triphasic waveform. Main portal vein measured 10 mm in diameter. Main portal vein blood flow was 23.7 cm/sec pre anastomosis, 19.4 cm/sec at the anastomosis, and 11.5 cm/sec post anastomosis. Main, Left, and Right portal veins showed normal, monophasic wave forms in appropriate direction. No recanalized periumbilical vein or splenorenal shunt identified. [facility] Hugo Darnlel MD - 01/09/2024 Interpreted By: Hugo Darnell, STUDY: US LIVER WITH DOPPLER 01/09/2024 12:23 pm INDICATION: 28 y/o M with Signs/Symptoms:s/p liver transplant, elevated LFT's, right side pain. COMPARISON: Previous exam from 01/26/2023. ACCESSION NUMBER(S): [id number] ORDERING CLINICIAN: SHARAN AYOUB TECHNIQUE: Ultrasound of the abdomen was performed using grayscale imaging, color Doppler, and spectral Doppler. FINDINGS: LIVER: Cranialcaudal length: 11.2cm. Within normal limits for age Echogenicity: Slightly increased and coarsened throughout. In places, the liver contours appear slightly nodular.. Mass: None. GALLBLADDER: Surgically absent. BILE DUCTS: No intrahepatic biliary ductal dilatation. Common bile duct measured 3 mm in diameter. This is within the limits of normal. PANCREAS: Pancreatic head and body were well seen and were unremarkable sonographically. Pancreatic tail was obscured by bowel gas. PERITONEAL FLUID: Very mild perihepatic ascites. SPLEEN: The spleen was mildly enlarged at 13.2 cm length. No focal splenic lesion identified. There was an incidental splenule near the splenic hilum. RIGHT KIDNEY: The right kidney measured 11.4 cm in length. It was sonographically normal for size and echogenicity. There was a nonobstructing upper pole 8 mm stone, a nonobstructing midpole 5 mm stone, and a nonobstructing lower pole 3 mm stone. There was no hydronephrosis, or perinephric collection. LEFT KIDNEY: The left kidney measured 11.8 cm in length. It was sonographically normal for size and echogenicity. There were several small nonobstructing stones measuring 5 mm in diameter or less. There was no hydronephrosis, or perinephric collection. HEPATIC ARTERIES: The following demonstrate patency and appropriate direction of flow: Main hepatic artery RI 0.72; Right hepatic artery RI 0.60; Left hepatic artery RI 0.67; these are within the limits of normal. SPLENIC VEIN: Splenic vein velocity was 22.8 cm/s. HEPATIC AND PORTAL VENOUS BRANCHES: Right, middle and left hepatic venous branches demonstrate triphasic waveform. Main portal vein measured 10 mm in diameter. Main portal vein blood flow was 23.7 cm/sec pre anastomosis, 19.4 cm/sec at the anastomosis, and 11.5 cm/sec post anastomosis. Main, Left, and Right portal veins showed normal, monophasic wave forms in appropriate direction. No recanalized periumbilical vein or splenorenal shunt identified. IMPRESSION: Doppler portion of this exam was within the limits of normal. There was mild nonspecific perihepatic ascites. Also, liver echogenicity was slightly increased and coarsened throughout and liver contours did appear to be slightly with nodular in places. An element of cirrhosis of the liver is not excluded by this exam. Clinical and laboratory correlation are needed. Mild splenomegaly. Nonobstructing stones in both kidneys. Previous cholecystectomy. MACRO: None Signed by: Hugo Darnell 01/09/2024 2:11 PM Dictation workstation: [id number] [facility] Work Phone: Radiology Study observation (narrative) [facility] Work Phone: No Panel InformationOrdered By: Hugo Darnell on 01-09-2024 [facility] Work Phone: US LIVER WITH DOPPLERon US LIVER WITH DOPPLER Interpreted By: Hugo Mario, STUDY: US LIVER WITH DOPPLER 01/09/2024 12:23 pm INDICATION: 28 y/o M with Signs/Symptoms:s/p liver transplant, elevated LFT's, right side pain. COMPARISON: Previous exam from 01/26/2023. ACCESSION NUMBER(S): [id number] ORDERING CLINICIAN: SHARAN AYOUB TECHNIQUE: Ultrasound of the abdomen was performed using grayscale imaging, color Doppler, and spectral Doppler. FINDINGS: LIVER: Cranialcaudal length: 11.2cm. Within normal limits for age Echogenicity: Slightly increased and coarsened throughout. In places, the liver contours appear slightly nodular.. Mass: None. GALLBLADDER: Surgically absent. BILE DUCTS: No intrahepatic biliary ductal dilatation. Common bile duct measured 3 mm in diameter. This is within the limits of normal. PANCREAS: Pancreatic head and body were well seen and were unremarkable sonographically. Pancreatic tail was obscured by bowel gas. PERITONEAL FLUID: Very mild perihepatic ascites. SPLEEN: The spleen was mildly enlarged at 13.2 cm length. No focal splenic lesion identified. There was an incidental splenule near the splenic hilum. RIGHT KIDNEY: The right kidney measured 11.4 cm in length. It was sonographically normal for size and echogenicity. There was a nonobstructing upper pole 8 mm stone, a nonobstructing midpole 5 mm stone, and a nonobstructing lower pole 3 mm stone. There was no hydronephrosis, or perinephric collection. LEFT KIDNEY: The left kidney measured 11.8 cm in length. It was sonographically normal for size and echogenicity. There were several small nonobstructing stones measuring 5 mm in diameter or less. There was no hydronephrosis, or perinephric collection. HEPATIC ARTERIES: The following demonstrate patency and appropriate direction of flow: Main hepatic artery RI 0.72; Right hepatic artery RI 0.60; Left hepatic artery RI 0.67; these are within the limits of normal. SPLENIC VEIN: Splenic vein velocity was 22.8 cm/s. HEPATIC AND PORTAL VENOUS BRANCHES: Right, middle and left hepatic venous branches demonstrate triphasic waveform. Main portal vein measured 10 mm in diameter. Main portal vein blood flow was 23.7 cm/sec pre anastomosis, 19.4 cm/sec at the anastomosis, and 11.5 cm/sec post anastomosis. Main, Left, and Right portal veins showed normal, monophasic wave forms in appropriate direction. No recanalized periumbilical vein or splenorenal shunt identified. IMPRESSION: Doppler portion of this exam was within the limits of normal. There was mild nonspecific perihepatic ascites. Also, liver echogenicity was slightly increased and coarsened throughout and liver contours did appear to be slightly with nodular in places. An element of cirrhosis of the liver is not excluded by this exam. Clinical and laboratory correlation are needed. Mild splenomegaly. Nonobstructing stones in both kidneys. Previous cholecystectomy. MACRO: None Signed by: Hugo Darnell 01/09/2024 2:11 PM Dictation workstation: [id number] [facility] Alanine aminotransferase [En zymatic activity/volume] in Serum or PlasmaOrdered By: Sharan Ayoub on 01-04-2024 ALT [Catalytic activity/Vol] 81 U/L High 7-52 [facility] Comment on above: Performed By: #### T ACROLIMUS., CMP, CBC #### [facility] [address] [place] [address] [place] Albumin [Mass/volume] in Ser um or Plasma by Bromocresol green (BCG) dye binding methoOrdered By: Sharan Ayoub on 01-04-2024 Albumin BCG dye [Mass/Vol] 3.5 g/dL 3.5-5.7 [facility] Alkaline phosphatase [Enzyma tic activity/volume] in Serum or PlasmaOrdered By: Sharan Ayoub on 01-04-2024 ALP [Catalytic activity/Vol] 242 U/L High 34-104 [facility] Comment on above: Performed By: #### T ACROLIMUS., CMP, CBC #### [facility] [address] [place] [address] [place] Anisocytosis [Presence] in B lood by Light microscopyOrdered By: Sharan Ayoub on 01-04-2024 Anisocytosis Ql (Bld) Slight Normal [facility] Comment on above: Performed By: #### T ACROLIMUS., CMP, CBC #### [facility] [address] [place] [id number] [place] Aspartate aminotransferase [ Enzymatic activity/volume] in Serum or PlasmaOrdered By: Sharan Ayoub on 01-04-2024 AST [Catalytic activity/Vol] 93 U/L High 13-39 [facility] Comment on above: Performed By: #### T ACROLIMUS., CMP, CBC #### [facility] [address] [place] [id number] [place] Automated basophil %Ordered By: Sharan Ayoub on 01-04-2024 Basophils/100 WBC (Bld) 0.8 % Normal . [facility] Comment on above: Performed By: #### T ACROLIMUS., CMP, CBC #### [address] Automated basophil countOrde red By: Sharan Ayoub on 01-04-2024 Basophils (Bld) [#/Vol] 0.0 10*3/uL Normal 0.0-0.2 [facility] Comment on above: Performed By: #### T ACROLIMUS., CMP, CBC #### [address] Automated blood monocyte cou ntOrdered By: Sharan Ayoub on 01-04-2024 Monocytes (Bld) [#/Vol] 0.4 10*3/uL Normal 0.0-0.8 [facility] Comment on above: Performed By: #### T ACROLIMUS., CMP, CBC #### [address] Automated eosinophil %Ordere d By: Sharan Ayoub on 01-04-2024 Eosinophils/100 WBC (Bld) 1.1 % Normal . [facility] Comment on above: Performed By: #### T ACROLIMUS., CMP, CBC #### [address] Automated eosinophil countOr dered By: Sharan Ayoub on 01-04-2024 Eosinophils (Bld) [#/Vol] 0.1 10*3/uL Normal 0.0-0.45 [facility] Comment on above: Performed By: #### T ACROLIMUS., CMP, CBC #### [address] Automated monocyte %Ordered By: Sharan Ayoub on 01-04-2024 Monocytes/100 WBC (Bld) 8.0 % Normal . [facility] Comment on above: Performed By: #### T ACROLIMUS., CMP, CBC #### [address] [address] [place] Automated neutrophil %Ordere d By: Sharan Ayoub on 01-04-2024 Neutrophils/100 WBC (Bld) 62.8 % Normal . [facility] Comment on above: Performed By: #### T ACROLIMUS., CMP, CBC #### [facility] [address] Bilirubin,Directon Bilirubin.indirect [Mass/Vol] 1.40 mg/dL High 0.03-0.18 [facility] Comment on above: Result Comment: PERF ORMED BY: [address] [place] [address] PATHOLOGIST VICTORIAN LITERATURE PROFESSOR MISAEL FOX M.D. Performed By: #### T ACROLIMUS., CMP, CBC #### [facility] [address] [place] [address] Bilirubin.direct [Mass/volum e] in Serum or PlasmaOrdered By: Sharan Ayoub on 01-04-2024 Bilirubin.direct [Mass/Vol] 1.40 mg/dL 0.03-0.18 [facility] Bilirubin.total [Mass/volume ] in Serum or PlasmaOrdered By: Sharan Ayoub on 01-04-2024 Bilirubin [Mass/Vol] 2.7 mg/dL High 0.3-1.0 [facility] Comment on above: Samples from patient s who have taken Naproxen have shown spurious elevation in Total Bilirubin levels. A metabolite of Naproxen, O-desmethylnaproxen, has been shown to interfere with the Jendrassik-Grof method for measuring Total Bilirubin. Result Comment: Samp les from patients who have taken Naproxen have shown spurious elevation in Total Bilirubin levels. A metabolite of Naproxen, O-desmethylnaproxen, has been shown to interfere with the Jendrassik-Grof method for measuring Total Bilirubin. Performed By: #### T ACROLIMUS., CMP, CBC #### [facility] [address] CBC W Auto Differential pane l (Bld)on 01-04-2024 Basophils (Bld) [#/Vol] 0.03 x10*3/uL Normal 0.00-0.10 [facility] Comment on above: Performed By: #### 5 7021-8 #### ZOLTAN TURNER ([id number]) [facility] ([facility]) [address] [place] [address] Basophils/100 WBC (Bld) 0.6 % Normal 0.0-2.0 [facility] Comment on above: Performed By: #### 5 7021-8 #### ZOLTAN TURNER ([id number]) [facility] ([facility]) [address] [place] [address] 06701 Eosinophils (Bld) [#/Vol] 0.05 x10*3/uL Normal 0.00-0.70 [facility] Comment on above: Performed By: #### 5 7021-8 #### ZOLTAN TURNER ([id number]) [facility] ([facility]) [address] [place] [address] 73097 Eosinophils/100 WBC (Bld) 1.0 % Normal 0.0-6.0 [facility] Comment on above: Performed By: #### 5 7021-8 #### ZOLTAN TURNER ([id number]) [facility] ([facility]) [address] [place] [address] 92035 Erythrocyte distribution width (RBC) [Ratio] 13.6 % Normal 11.5-14.5 [facility] Comment on above: Performed By: #### 5 7021-8 #### ZOLTAN TURNER ([id number]) [facility] ([facility]) [address] [place] [address] 72638 Hematocrit (Bld) [Volume fraction] 37.4 % Low 41.0-52.0 [facility] Comment on above: Performed By: #### 5 7021-8 #### ZOLTAN TURNER ([id number]) [facility] ([facility]) [address] [place] [address] 66191 Hemoglobin (Bld) [Mass/Vol] 12.3 g/dL Low 13.5-17.5 [facility] Comment on above: Performed By: #### 5 7021-8 #### ZOLTAN TURNER ([id number]) [facility] ([facility]) [address] [place] [address] 65133 Immature granulocytes (Bld) [#/Vol] 0.01 x10*3/uL Normal 0.00-0.70 [facility] Comment on above: Performed By: #### 5 7021-8 #### ZOLTAN TURNER ([id number]) [facility] ([facility]) [address] [place] [address] 20713 Immature granulocytes/100 WBC (Bld) 0.2 % Normal 0.0-0.9 [facility] Comment on above: Result Comment: Nicole ture Granulocyte Count (IG) includes promyelocytes, myelocytes and metamyelocytes but does not include bands. Percent differential counts (%) should be interpreted in the context of the absolute cell counts (cells/UL). Performed By: #### 5 7021-8 #### ZOLTAN TURNER ([id number]) [facility] ([facility]) [address] [place] [address] 33470 Lymphocytes (Bld) [#/Vol] 1.33 x10*3/uL Normal 1.20-4.80 [facility] Comment on above: Performed By: #### 5 7021-8 #### ZOLTAN TURNER ([id number]) [facility] ([facility]) [address] [place] [address] 91850 Lymphocytes/100 WBC (Bld) 27.1 % Normal 13.0-44.0 [facility] Comment on above: Performed By: #### 5 7021-8 #### ZOLTAN TURNER ([id number]) [facility] ([facility]) [address] [place] [address] 72802 MCH (RBC) [Entitic mass] 31.5 pg Normal 26.0-34.0 [facility] Comment on above: Performed By: #### 5 7021-8 #### ZOLTAN TURNER ([id number]) [facility] ([facility]) [address] [place] [address] 05885 MCHC (RBC) [Mass/Vol] 32.9 g/dL Normal 32.0-36.0 [facility] Comment on above: Performed By: #### 5 7021-8 #### ZOLTAN TURNER ([id number]) [facility] ([facility]) [address] [place] [address] 64348 MCV (RBC) [Entitic vol] 96 fL Normal 80-100 [facility] Comment on above: Performed By: #### 5 7021-8 #### ZOLTAN TURNER ([id number]) [facility] ([facility]) [address] [place] [address] 82448 Monocytes (Bld) [#/Vol] 0.42 x10*3/uL Normal 0.10-1.00 [facility] Comment on above: Performed By: #### 5 7021-8 #### ZOLTAN TURNER ([id number]) [facility] ([facility]) [address] [place] [address] 16781 Monocytes/100 WBC (Bld) 8.6 % Normal 2.0-10.0 [facility] Comment on above: Performed By: #### 5 7021-8 #### ZOLTAN TURNER ([id number]) [facility] ([facility]) [address] [place] [address] 79732 Neutrophils (Bld) [#/Vol] 3.07 x10*3/uL Normal 1.20-7.70 [facility] Comment on above: Result Comment: Perc ent differential counts (%) should be interpreted in the context of the absolute cell counts (cells/uL). Performed By: #### 5 7021-8 #### ZOLTAN TURNER ([id number]) [facility] ([facility]) [address] [place] [address] 54610 Neutrophils/100 WBC (Bld) 62.5 % Normal 40.0-80.0 [facility] Comment on above: Performed By: #### 5 7021-8 #### ZOLTAN TURNER ([id number]) [facility] ([facility]) [address] [place] [address] 46453 Nucleated RBC/100 WBC (Bld) [Ratio] 0.0 /100 WBCs Normal 0.0-0.0 [facility] Comment on above: Performed By: #### 5 7021-8 #### ZOLTAN TURNER ([id number]) [facility] ([facility]) [address] [place] [address] 39979 Platelets (Bld) [#/Vol] 116 x10*3/uL Low 150-450 [facility] Comment on above: Performed By: #### 5 7021-8 #### ZOLTAN TURNER ([id number]) [facility] ([facility]) [address] [place] [address] 52412 RBC (Bld) [#/Vol] 3.91 x10*6/uL Low 4.50-5.90 [facility] Comment on above: Performed By: #### 5 7021-8 #### ZOLTAN TURNER ([id number]) [facility] ([facility]) [address] [place] [address] 05620 WBC (Bld) [#/Vol] 4.9 x10*3/uL Normal 4.4-11.3 [facility] Comment on above: Performed By: #### 5 7021-8 #### ZOLTAN TURNER ([id number]) [facility] ([facility]) [address] [place] [address] 81988 CMV DNA LÁZARO+probe Qn (P)on 0 01-04-2024 CMV DNA RESULT Not detected Normal Not Detected [facility] Comment on above: Order Comment: Repor table Range: 35-10,000,000 IU/mL. The yu CMV test is an in vitro nucleic acid amplification test for the quantitation of Cytomegalovirus (CMV) DNA in human EDTA plasma on the yu 6800/8800 Systems. The analytical quantification range of this assay has been determined to be 35 to 10,000,000 IU/ml in plasma. Mutations within the highly-conserved regions of the CMV DNA polymerase (UL54) gene covered by yu CMV may affect primers and/or probe binding resulting in the under-quantitation of virus or failure to detect the presence of virus. The yu CMV mitigates this risk through the use of redundant amplification primers. Negative test results do not preclude CMV infection or tissue-invasive CMV disease, and test results should therefore not be the sole basis for patient management decisions If the assay DETECTED the presence of the virus but was not able to accurately quantify the number of copies, the test result will be reported as <35 Detected or >10,000,000 Detected . The yu CMV is intended for use as an aid in the management of CMV in solid organ transplant patients and in hematopoietic stem cell transplant patients. In patients receiving anti-CMV therapy, serial DNA measurements can be used to assess viral response to treatment. The results from yu??? CMV must be interpreted within the context of all relevant clinical and laboratory findings. This test is approved by the [place] Food and Drug Administration, and its performance characteristics verified by the [facility], Department of Pathology, [facility]. Performed By: #### 7 2493-0 #### NORMA Cherry ([id number]) [facility] ([facility]) [address] [place] [address] CYTOMEGALOVIRUS DNA, PCR LOG IU/ML Normal [facility] Comment on above: Order Comment: Repor table Range: 35-10,000,000 IU/mL. The yu CMV test is an in vitro nucleic acid amplification test for the quantitation of Cytomegalovirus (CMV) DNA in human EDTA plasma on the yu 6800/8800 Systems. The analytical quantification range of this assay has been determined to be 35 to 10,000,000 IU/ml in plasma. Mutations within the highly-conserved regions of the CMV DNA polymerase (UL54) gene covered by yu CMV may affect primers and/or probe binding resulting in the under-quantitation of virus or failure to detect the presence of virus. The yu CMV mitigates this risk through the use of redundant amplification primers. Negative test results do not preclude CMV infection or tissue-invasive CMV disease, and test results should therefore not be the sole basis for patient management decisions If the assay DETECTED the presence of the virus but was not able to accurately quantify the number of copies, the test result will be reported as <35 Detected or >10,000,000 Detected . The yu CMV is intended for use as an aid in the management of CMV in solid organ transplant patients and in hematopoietic stem cell transplant patients. In patients receiving anti-CMV therapy, serial DNA measurements can be used to assess viral response to treatment. The results from yu??? CMV must be interpreted within the context of all relevant clinical and laboratory findings. This test is approved by the US Food and Drug Administration, and its performance characteristics verified by the [facility], Department of Pathology, [facility]. Result Comment: Not calculated Performed By: #### 7 2493-0 #### NORMA Cherry ([id number]) [facility] ([facility]) [id number] [place] [address] CMV Transplanton 01-04-2024 CMV Transplant Sent to Ref Lab Normal [facility] Comment on above: Performed By: #### T ACROLIMUS., CMP, CBC #### [facility] [address] [id number] [place] Calcium [Mass/volume] in Ser um or PlasmaOrdered By: Sharan Ayoub on 01-04-2024 Calcium [Mass/Vol] 8.9 mg/dL Normal 8.6-10.3 [facility] Comment on above: Performed By: #### T ACROLIMUS., CMP, CBC #### [facility] [address] [place] [address] [place] Carbon dioxide, total [Moles /volume] in Serum or PlasmaOrdered By: Sharan Ayoub on 01-04-2024 CO2 [Moles/Vol] 30.0 mmol/L Normal 21.0-31.0 [facility] Comment on above: Performed By: #### T ACROLIMUS., CMP, CBC #### [facility] [address] [place] [id number] [place] Chloride [Moles/volume] in S kasi or PlasmaOrdered By: Sharan Ayoub on 01-04-2024 Chloride [Moles/Vol] 103 mmol/L Normal 98-107 [facility] Comment on above: Performed By: #### T ACROLIMUS., CMP, CBC #### [facility] [address] [phone] [place] Comprehensive Metabolic Pane sarah 01-04-2024 Albumin [Mass/Vol] 3.5 g/dL Normal 3.5-5.7 [facility] Comment on above: Performed By: #### T ACROLIMUS., CMP, CBC #### [facility] [address] [id number] [place] GFR/1.73 sq M.predicted MDRD (S/P/Bld) [Vol rate/Area] mL/min/{1.73_m2} Normal [facility] Comment on above: Performed By: #### T ACROLIMUS., CMP, CBC #### [facility] [address] [place] [address] [place] Creatinine [Mass/volume] in Serum or PlasmaOrdered By: Sharan Ayoub on 01-04-2024 Creatinine [Mass/Vol] 0.91 mg/dL Normal 0.70-1.30 [facility] Comment on above: Performed By: #### T ACROLIMUS., CMP, CBC #### [facility] [address] [phone] [facility] EBV DNA LÁZARO+probe Qnon 01-03 EBV DNA LÁZARO+probe (Unsp spec) [Log #/Vol] Normal [facility] Comment on above: Order Comment: Repor table Range: 35-100,000,000 IU/mL. The yu EBV test is an in vitro nucleic acid amplification dual target assay for the quantitation of Isaac-Fair virus (EBV) DNA in human EDTA plasma on the yu 6800/8800 Systems. The test employs a dual target virus specific approach from highly-conserved regions of the EBV located in the EBV EBNA-1 gene and the EBV BMRF gene. The analytical quantification range of this assay has been determined to be 35 to 100,000,000 IU/ml in plasma. As with any molecular test, mutations within the target regions of yu??? EBV could affect primer and/or probe binding resulting in the under-quantitation of virus or failure to detect the presence of virus. If the assay DETECTED the presence of the virus but was not able to accurately quantify the number of copies, the test result will be reported as <35 Detected or >100,000,000 Detected . The yu??? EBV test is intended for use as an aid in the management of EBV in transplant patients. In patients undergoing monitoring of EBV, serial DNA measurements can be used to indicate the need for potential treatment changes and to assess response to treatment. The results from yu??? EBV are intended to be read and analyzed by a qualified licensed healthcare professional in conjunction with clinical signs and symptoms and relevant laboratory findings. Negative test results do not preclude EBV infection or EBV disease. Test results must not be the sole basis for patient management decisions. This test is approved by the [place] Food and Drug Administration, and its performance characteristics verified by the [facility], Department of Pathology, [facility]. Result Comment: Not calculated Performed By: #### 4 3730-1 #### NORMA Cherry ([id number]) [facility] ([facility]) [address] [place] [address] Laboratory comment Haroon (Report) Not detected Normal Not Detected [facility] Comment on above: Order Comment: Repor table Range: 35-100,000,000 IU/mL. The yu EBV test is an in vitro nucleic acid amplification dual target assay for the quantitation of Isaac-Fair virus (EBV) DNA in human EDTA plasma on the yu 6800/8800 Systems. The test employs a dual target virus specific approach from highly-conserved regions of the EBV located in the EBV EBNA-1 gene and the EBV BMRF gene. The analytical quantification range of this assay has been determined to be 35 to 100,000,000 IU/ml in plasma. As with any molecular test, mutations within the target regions of yu??? EBV could affect primer and/or probe binding resulting in the under-quantitation of virus or failure to detect the presence of virus. If the assay DETECTED the presence of the virus but was not able to accurately quantify the number of copies, the test result will be reported as <35 Detected or >100,000,000 Detected . The uy??? EBV test is intended for use as an aid in the management of EBV in transplant patients. In patients undergoing monitoring of EBV, serial DNA measurements can be used to indicate the need for potential treatment changes and to assess response to treatment. The results from yu??? EBV are intended to be read and analyzed by a qualified licensed healthcare professional in conjunction with clinical signs and symptoms and relevant laboratory findings. Negative test results do not preclude EBV infection or EBV disease. Test results must not be the sole basis for patient management decisions. This test is approved by the [place] Food and Drug Administration, and its performance characteristics verified by the [facility] Laboratory, Department of Pathology, [facility]. Performed By: #### 4 3730-1 #### NORMA Cherry ([id number]) [facility] ([facility]) [id number] [place] [address] EBV Transplanton 01-04-2024 EBV Transplant Sent to Ref Lab Normal [facility] Comment on above: Result Comment: PERF ORMED BY: [place] [address] PATHOLOGIST VICTORIAN LITERATURE PROFESSOR MISAEL FOX M.D. Performed By: #### T ACROLIMUS., CMP, CBC #### [facility] [address] [place] [address] Erythrocyte distribution wid th [Ratio] by Automated countOrdered By: Sharan Ayoub on 01-04-2024 Erythrocyte distribution width (RBC) [Ratio] 14.3 % Normal 12.0-14.8 [facility] Comment on above: Performed By: #### T ACROLIMUS., CMP, CBC #### [facility] [address] [place] [address] Erythrocytes [#/volume] in B lood by Automated countOrdered By: Sharan Ayoub on 01-04-2024 RBC (Bld) [#/Vol] 3.98 10*6/uL Normal 3.90-5.60 [facility] Comment on above: Performed By: #### T ACROLIMUS., CMP, CBC #### [facility] [address] [place] [address] [place] Glucose [Mass/volume] in Ser um or PlasmaOrdered By: Sharan Ayoub on 01-04-2024 Glucose [Mass/Vol] 145 mg/dL High 70-100 [facility] Comment on above: ADA recommended refe rence rangeRandom Glucose Reference Range is dependent on time and content of last meal. Glucose of more than 200 mg/dL in a nonstressed, ambulatory subject supports the diagnosis of Diabetes Mellitus. Result Comment: [facility] Glucose Reference Range is dependent on time and content of last meal. Glucose of more than 200 mg/dL in a nonstressed, ambulatory subject supports the diagnosis of Diabetes Mellitus. ADA recommended reference range Performed By: #### T ACROLIMUS., CMP, CBC #### [facility] [address] Hematocrit [Volume Fraction] of Blood by Automated countOrdered By: Sharan Ayoub on 01-04-2024 Hematocrit (Bld) [Volume fraction] 37.1 % Low 38.8-50.0 [facility] Comment on above: Performed By: #### T ACROLIMUS., CMP, CBC #### [facility] [address] Hemoglobin [Mass/volume] in BloodOrdered By: Sharan Ayoub on 01-04-2024 Hemoglobin (Bld) [Mass/Vol] 12.5 g/dL Low 13.0-17.0 [facility] Comment on above: Performed By: #### T ACROLIMUS., CMP, CBC #### [facility] [address] INR in Platelet poor plasma by Coagulation assayOrdered By: Sharan Ayoub on 01-04-2024 INR Coag (PPP) [Relative time] 1.1 {INR} Normal [facility] Comment on above: INR Therapeutic Rang e A) Pre- and Peroperative OAT started two weeks before surgery. NOT HIP SURGERY: 1.5 - 2.5 HIP SURGERY: 2 - 3B) Primary and secondary prevention of venous THROMBOSIS: 2 - 3C) Active venous thrombosis, pulmonary embolismand prevention of recurrent venous thrombosis: 2 - 3D) Prevention of arterial thromboembolismincluding patients with mechanical heart valves: 3 - 4.5 Order Comment: List the anticoagulant: ASPIRIN Result Comment: INR Therapeutic Range A) Pre- and Peroperative OAT started two weeks before surgery. NOT HIP SURGERY: 1.5 - 2.5 HIP SURGERY: 2 - 3 B) Primary and secondary prevention of venous THROMBOSIS: 2 - 3 C) Active venous thrombosis, pulmonary embolism and prevention of recurrent venous thrombosis: 2 - 3 D) Prevention of arterial thromboembolism including patients with mechanical heart valves: 3 - 4.5 PERFORMED BY: [place] [address] PATHOLOGIST VICTORIAN LITERATURE PROFESSOR MISAEL FOX M.D. Performed By: #### T ACROLIMUS., CMP, CBC #### [address] Leukocytes [#/volume] correc roderick for nucleated erythrocytes in Blood by Automated counOrdered By: Sharan Ayoub on 01-04-2024 WBC corrected for nucl RBC Auto (Bld) [#/Vol] 4.8 10*3/uL 4.1-10.5 [facility] Leukocytes [#/volume] in Blo od by Automated countOrdered By: Sharan Ayoub on 01-04-2024 WBC (Bld) [#/Vol] 4.8 10*3/uL Normal 4.1-10.5 [facility] Comment on above: Performed By: #### T ACROLIMUS., CMP, CBC #### [place] [address] [place] Lymphocytes [#/volume] in Bl ood by Automated countOrdered By: Sharan Ayoub on 01-04-2024 Lymphocytes (Bld) [#/Vol] 1.3 10*3/uL Normal 1.00-4.8 [facility] Comment on above: Performed By: #### T ACROLIMUS., CMP, CBC #### [place] [address] [place] Lymphocytes/100 leukocytes i n Blood by Automated countOrdered By: Sharan Ayoub on 01-04-2024 Lymphocytes/100 WBC (Bld) 27.3 % Normal . [facility] Comment on above: Performed By: #### T ACROLIMUS., CMP, CBC #### [place] [address] [place] MCH [Entitic mass] by Automa roderick countOrdered By: Sharan Ayoub on 01-04-2024 MCH (RBC) [Entitic mass] 31.4 pg Normal 27.5-35.2 [facility] Comment on above: Performed By: #### T ACROLIMUS., CMP, CBC #### [facility] [address] MCHC Auto (RBC) [Mass/Vol]Or dered By: Sharan Ayoub on 01-04-2024 MCHC (RBC) [Mass/Vol] 33.6 g/dL 32.5-35.6 [facility] MCV [Entitic volume] by Auto mated countOrdered By: Sharan Ayoub on 01-04-2024 MCV (RBC) [Entitic vol] 93.4 fL Normal 83.5-101 [facility] Comment on above: Performed By: #### T ACROLIMUS., CMP, CBC #### [facility] [address] Neutrophils [#/volume] in Bl ood by Automated countOrdered By: Sharan Ayoub on 01-04-2024 Neutrophils (Bld) [#/Vol] 3.0 10*3/uL Normal 1.8-7.7 [facility] Comment on above: Performed By: #### T ACROLIMUS., CMP, CBC #### [facility] [address] No Panel InformationOrdered By: Sharan Ayoub on 01-04-2024 Cytomegalovirus Detection Sent to ref lab [facility] Estimated GFR (CKD-EPI) > 60.0 mL/Min [facility] Creatinine Clearance (Chem N/A [facility] Nucleated erythrocytes [Pres ence] in Blood by Automated countOrdered By: Sharan Ayoub on 01-04-2024 Nucleated RBC Auto Ql (Bld) 0.1 /100{WBC} 0-0.5 [facility] Platelet adequacy [Presence] in Blood by Light microscopyOrdered By: Sharan Ayoub on 01-04-2024 Platelets LM Ql (Bld) Decreased Normal [facility] Platelet mean volume [Entiti c volume] in Blood by Automated countOrdered By: Sharan Ayoub on 01-04-2024 Platelet mean volume (Bld) [Entitic vol] 11.2 fL High 6.6-10.1 [facility] Comment on above: Performed By: #### T ACROLIMUS., CMP, CBC #### [facility] [address] [place] [address] Platelet morphology finding [Identifier] in BloodOrdered By: Sharan Ayoub on 01-04-2024 Platelet morphology finding Nom (Bld) N/A [facility] Platelets Large [Presence] i n Blood by Light microscopyOrdered By: Sharan Ayoub on 01-04-2024 Platelets Large LM Ql (Bld) Slight [facility] Platelets [#/volume] in Bloo d by Automated countOrdered By: Sharan Ayoub on 01-04-2024 Platelets (Bld) [#/Vol] 116 10*3/uL Low 150-450 [facility] Comment on above: Performed By: #### T ACROLIMUS., CMP, CBC #### [facility] [address] [place] [address] Polychromasia [Presence] in Blood by Light microscopyOrdered By: Sharan Ayoub on 01-04-2024 Polychromasia LM Ql (Bld) Slight [facility] Potassium [Moles/volume] in Serum or PlasmaOrdered By: Sharan Ayoub on 01-04-2024 Potassium [Moles/Vol] 3.7 mmol/L Normal 3.5-5.1 [facility] Comment on above: Performed By: #### T ACROLIMUS., CMP, CBC #### [facility] [address] [place] [address] Protein [Mass/volume] in Ser um or PlasmaOrdered By: Sharan Ayoub on 01-04-2024 Protein [Mass/Vol] 6.9 g/dL Normal 6.4-8.9 [facility] Comment on above: Performed By: #### T ACROLIMUS., CMP, CBC #### [facility] [address] [place] [address] Prothrombin time (PT)Ordered By: Sharna Ayoub on 01-04-2024 PT Coag (PPP) [Time] 13.2 s High 9.0-12.9 [facility] Comment on above: A hematocrit value g reater than 55% may lead to inaccurate results in coagulation testing. Patients having hematocrit values >55% require a special collection tube for coagulation studies. Please contact the laboratory at [phone] for redraw instructions. Order Comment: List the anticoagulant: ASPIRIN Result Comment: A he matocrit value greater than 55% may lead to inaccurate results in coagulation testing. Patients having hematocrit values >55% require a special collection tube for coagulation studies. Please contact the laboratory at [phone] for redraw instructions. Performed By: #### T ACROLIMUS., CMP, CBC #### [address] RBC morphologyOrdered By: Kanu Ayoub on 01-04-2024 RBC morphology finding Nom (Bld) N/A [facility] Scan and CBCon 01-04-2024 Large Platelets Slight Normal [facility] Comment on above: Result Comment: PERF ORMED BY: [place] [address] PATHOLOGIST VICTORIAN LITERATURE PROFESSOR MISAEL FOX M.D. Performed By: #### T ACROLIMUS., CMP, CBC #### [address] Mean Corpuscular HGB Conc 33.6 g/dL Normal 32.5-35.6 [facility] Comment on above: Performed By: #### T ACROLIMUS., CMP, CBC #### [address] NRBC% 0.1 /100{WBC} Normal 0-0.5 [facility] Comment on above: Performed By: #### T ACROLIMUS., CMP, CBC #### [address] Platelet Estimate Decreased Normal Normal [facility] Comment on above: Performed By: #### T ACROLIMUS., CMP, CBC #### [address] Polychromasia Slight Normal [facility] Comment on above: Performed By: #### T ACROLIMUS., CMP, CBC #### [address] Serum globulin measurement b y calculation (mass/volume)Ordered By: Sharan Ayoub on 01-04-2024 Globulin (S) [Mass/Vol] 3.4 g/dL [facility] Comment on above: Performed By: #### T ACROLIMUS., CMP, CBC #### [address] Serum or plasma albumin/glob ulin mass ratioOrdered By: Sharan Ayoub on 01-04-2024 Albumin/Globulin [Mass ratio] 1.0 {ratio} [facility] Comment on above: Performed By: #### T ACROLIMUS., CMP, CBC #### [address] Serum or plasma anion gap de terminationOrdered By: Sharan Ayoub on 01-04-2024 Anion gap [Moles/Vol] 8.7 mmol/L Normal 6.0-15.0 [facility] Comment on above: Performed By: #### T ACROLIMUS., CMP, CBC #### [address] Sodium [Moles/volume] in Ser um or PlasmaOrdered By: Sharan Ayoub on 01-04-2024 Sodium [Moles/Vol] 138 mmol/L Normal 136-145 [facility] Comment on above: Performed By: #### T ACROLIMUS., CMP, CBC #### [facility] [address] [place] [address] Tacrolimuson 01-04-2024 Tacrolimus (Bld) [Mass/Vol] 6.3 ng/mL Normal <=15.0 [facility] Comment on above: Order Comment: NOTE: Result was obtained using a chemiluminescent microparticle immunoassay (CMIA) on the Stem Roller Or Crusher Operator i system. Optimal therapeutic ranges for immunosuppressant drugs depend upon an individual patient's current clinical state, type of organ transplant, time post-transplant, co-administration of other immunosuppressants, and other clinical factors. The results of this test should be correlated with additional clinical and laboratory data before changes in treatment regimens are made. Performed By: #### 1 8323-2 #### NORMA Cherry ([id number]) [facility] ([facility]) [id number] [place] [address] Tacrolimus (Transplant) No C hgon 01-04-2024 Tacrolimus (Transplant) No Chg Sent to Ref Lab Normal [facility] Comment on above: Performed By: #### T ACROLIMUS., CMP, CBC #### [address] Tacrolimus [Mass/volume] in BloodOrdered By: Sharan Ayoub on 01-04-2024 Tacrolimus (Bld) [Mass/Vol] Sent to ref lab [facility] Urea nitrogen [Mass/volume] in Serum or PlasmaOrdered By: Sharan Ayoub on 01-04-2024 Urea nitrogen [Mass/Vol] 18 mg/dL Normal 7-25 [facility] Comment on above: Performed By: #### T ACROLIMUS., CMP, CBC #### [address] Whole blood quantitative Eps tein-Fair virus (EBV) DNA assay by PCROrdered By: Sharan Ayoub on 01-04-2024 EBV DNA LÁZARO+probe (Bld) [#/Vol] Sent to ref lab [facility] Glucose Test strip manual (B ld) [Mass/Vol]on 12-19-2023 Glucose [Mass/Vol] 112 mg/dL High 74 - 99 mg/dL [facility] Interpretation and review of laboratory results Abnormal [facility] Glucose [Mass/Vol] 112 mg/dL High 74-99 [facility] Comment on above: Performed By: #### 2 [id number] #### NORMA Cherry ([id number]) [facility] ([facility]) [address] [place] [address] Surgical pathology studyon 0 12-19-2023 Surgical pathology study Pathology report.total SEE COMMENT Surgical Pathology Case: [id number] Authorizing Provider: Doyle Cavazos MD Collected: 12/19/2023 1008 Ordering Location: [facility] Received: 12/19/2023 1652 Center Pathologist: Carol Murphy MD Specimen: LIVER BIOPSY RIGHT Path report.final diagnosis SEE COMMENT LIVER, RIGHT LOBE, NEEDLE-CORE BIOPSY: - Suboptimal biopsy specimen with: i. Mild portal and lobular inflammation (see comment). ii. 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 Laboratory comment By the signature on this report, the individual or group listed as making the Final Interpretation/Diagnosis certifies that they have reviewed this case. Path report.comments The biopsy is overall suboptimal for interpretation with only two definitive portal tracts being sampled. The histologic findings (see microscopic description) are not entirely specific and could represent hepatic injury from drug/medication effect or an infectious etiology. No definitive evidence of T-cell mediated or chronic rejection is seen; however, evaluation is limited by the suboptimal nature of the specimen. Path report.relevant Hx Liver transplant (April 2016) Path report.gross observation SEE COMMENT A: Received in formalin, labeled with the patient's name and hospital number and liver BX R , is a cylindrical segment of stevenson-red soft tissue measuring 1.0 cm in length by < 0.1 cm in diameter. The specimen is submitted in toto in one cassette. DMB Path report.microscopic observation The biopsy specimen consists of one core of hepatic parenchyma measuring approximately 0.8 cm in length with only two definitive portal tracts identified. The portal tracts show a mixed inflammatory infiltrate comprised of lymphocytes, histiocytes, neutrophils, plasma cells, and eosinophils. Mild interface activity is present. The bile duct show reactive changes including mild nuclear disarray and cytoplasmic eosinophilia. Scattered foci of lobular inflammation and prominent Kupffer cell hyperplasia are present. Rare single cell hepatocyte apoptosis is identified. No significant steatosis is seen. CK7 stain shows prominent hepatocyte ductular metaplasia. CK19 highlights bile ducts and ductules. Trichrome stain shows mild portal and prominent perisinusoidal fibrosis. Reticulin stain shows preserved reticulin framework. PAS-diastase shows scattered portal and lobular ceroid-laden macrophages; no evidence of alpha-1 antitrypsin globules is seen. Iron stain is negative. LAB AP ASR DISCLAIMER One or more of the reagents used to perform assays on this specimen MAY have contained components considered to be analyte specific reagents (ASR's). ASR's have not been cleared or approved by the U.S. Food and Drug Administration. These assays were developed and their performance characteristics determined by the Department of Pathology at [facility]. The FDA does not require this test to go through premarket FDA review. This test is used for clinical purposes. It should not be regarded as investigational or for research. This laboratory is certified under the Clinical Laboratory Improvement Amendments (CLIA) as qualified to perform high complexity clinical laboratory testing. The assays were performed with appropriate positive and negative controls which stained appropriately. Normal [facility] US GUIDED NEEDLE LIVER BIOPS Yon 12-19-2023 US GUIDED NEEDLE LIVER BIOPSY Interpreted By: Татьяна Eid and Barbat Antonio STUDY: US GUIDED NEEDLE LIVER BIOPSY; 12/19/2023 9:47 am INDICATION: Signs/Symptoms:s/p liver transplant with elevated LFT's. Transplant: April 2016. COMPARISON: IR liver biopsy ultrasound 02/04/2023. ACCESSION NUMBER(S): [id number] ORDERING CLINICIAN: SHARAN AYOUB TECHNIQUE: INTERVENTIONALIST(S): MD Doyle Vaz MD CONSENT: The patient/patient's POA/next of kin was informed of the nature of the proposed procedure. The purposes, alternatives, risks, and benefits were explained and discussed. All questions were answered and consent was obtained. SEDATION: Moderate conscious IV sedation services (supervision of administration, induction, and maintenance) were provided by the physician performing the procedure with intravenous fentanyl 50mcg and versed 1mg for about 7 minutes. The physician was assisted by an independent trained observer, an interventional radiology nurse, in the continuous monitoring of patient level of consciousness and physiologic status. MEDICATION/CONTRAST: No additional. TIME OUT: A time out was performed immediately prior to procedure start with the interventional team, correctly identifying the patient name, date of , MRN, procedure, anatomy (including marking of site and side), patient position, procedure consent form, relevant laboratory and imaging test results, antibiotic administration, safety precautions, and procedure-specific equipment needs. COMPLICATIONS: No immediate adverse events identified. FINDINGS: The patient was placed in the supine position. Limited sonographic images of the right upper quadrant were obtained for purposes of needle guidance, which demonstrated normal echogenicity of transplanted liver. The area of concern was prepped and draped under sterile technique. 1% lidocaine was injected subcutaneously and then into the deeper tissues surrounding the targeted area for biopsy. An 18 gauge core biopsy needle was passed via a 17 gauge coaxial introducer needle to obtain a total of 1 core samples. The access site was closed using Gel-Foam torpedo. Postprocedure images demonstrate no evidence for hemorrhage. The patient tolerated the procedure well and there were no immediate complications. Specimen(s) sent to pathology. IMPRESSION: 1. Status post successful ultrasound guided core needle biopsy of transplanted liver. Specimen(s) Sent to pathology. I was present for and/or performed the critical portions of the procedure and immediately available throughout the entire procedure. I personally reviewed the images/study and I agree with the findings as stated by Doyle Cavazos MD. This study was performed and interpreted at [place], [place] MACRO: None. Signed by: Татьяна Eid 12/19/2023 9:02 PM Dictation workstation: [id number] [facility] Comment on above: Order Comment: Sched ule with ultrasound of liver with doppler studies US Guidance for biopsy of Ami mattson 12-19-2023 1. Status post succe ssful ultrasound guided core needle biopsy of transplanted liver. Specimen(s) Sent to pathology. I was present for and/or performed the critical portions of the procedure and immediately available throughout the entire procedure. I personally reviewed the images/study and I agree with the findings as stated by Doyle Cavazos MD. This study was performed and interpreted at [place], [place] MACRO: None. Signed by: Татьяна Eid 12/19/2023 9:02 PM Dictation workstation: [id number] [facility] Interpreted By: Татьяна Eid and Barbat Antonio STUDY: US GUIDED NEEDLE LIVER BIOPSY; 12/19/2023 9:47 am INDICATION: Signs/Symptoms:s/p liver transplant with elevated LFT's. Transplant: April 2016. COMPARISON: IR liver biopsy ultrasound 02/04/2023. ACCESSION NUMBER(S): [id number] ORDERING CLINICIAN: SHARAN AYOUB TECHNIQUE: INTERVENTIONALIST(S): MD Doyle Vaz MD CONSENT: The patient/patient's POA/next of kin was informed of the nature of the proposed procedure. The purposes, alternatives, risks, and benefits were explained and discussed. All questions were answered and consent was obtained. SEDATION: Moderate conscious IV sedation services (supervision of administration, induction, and maintenance) were provided by the physician performing the procedure with intravenous fentanyl 50mcg and versed 1mg for about 7 minutes. The physician was assisted by an independent trained observer, an interventional radiology nurse, in the continuous monitoring of patient level of consciousness and physiologic status. MEDICATION/CONTRAST: No additional. TIME OUT: A time out was performed immediately prior to procedure start with the interventional team, correctly identifying the patient name, date of , MRN, procedure, anatomy (including marking of site and side), patient position, procedure consent form, relevant laboratory and imaging test results, antibiotic administration, safety precautions, and procedure-specific equipment needs. COMPLICATIONS: No immediate adverse events identified. FINDINGS: The patient was placed in the supine position. Limited sonographic images of the right upper quadrant were obtained for purposes of needle guidance, which demonstrated normal echogenicity of transplanted liver. The area of concern was prepped and draped under sterile technique. 1% lidocaine was injected subcutaneously and then into the deeper tissues surrounding the targeted area for biopsy. An 18 gauge core biopsy needle was passed via a 17 gauge coaxial introducer needle to obtain a total of 1 core samples. The access site was closed using Gel-Foam torpedo. Postprocedure images demonstrate no evidence for hemorrhage. The patient tolerated the procedure well and there were no immediate complications. Specimen(s) sent to pathology. [facility] Татьяна Eid MD - 12/19/2023 Interpreted By: Татьяна Eid and Barbat Antonio STUDY: US GUIDED NEEDLE LIVER BIOPSY; 12/19/2023 9:47 am INDICATION: Signs/Symptoms:s/p liver transplant with elevated LFT's. Transplant: April 2016. COMPARISON: IR liver biopsy ultrasound 02/04/2023. ACCESSION NUMBER(S): [id number] ORDERING CLINICIAN: SHARAN AYOUB TECHNIQUE: INTERVENTIONALIST(S): MD Doyle Vaz MD CONSENT: The patient/patient's POA/next of kin was informed of the nature of the proposed procedure. The purposes, alternatives, risks, and benefits were explained and discussed. All questions were answered and consent was obtained. SEDATION: Moderate conscious IV sedation services (supervision of administration, induction, and maintenance) were provided by the physician performing the procedure with intravenous fentanyl 50mcg and versed 1mg for about 7 minutes. The physician was assisted by an independent trained observer, an interventional radiology nurse, in the continuous monitoring of patient level of consciousness and physiologic status. MEDICATION/CONTRAST: No additional. TIME OUT: A time out was performed immediately prior to procedure start with the interventional team, correctly identifying the patient name, date of , MRN, procedure, anatomy (including marking of site and side), patient position, procedure consent form, relevant laboratory and imaging test results, antibiotic administration, safety precautions, and procedure-specific equipment needs. COMPLICATIONS: No immediate adverse events identified. FINDINGS: The patient was placed in the supine position. Limited sonographic images of the right upper quadrant were obtained for purposes of needle guidance, which demonstrated normal echogenicity of transplanted liver. The area of concern was prepped and draped under sterile technique. 1% lidocaine was injected subcutaneously and then into the deeper tissues surrounding the targeted area for biopsy. An 18 gauge core biopsy needle was passed via a 17 gauge coaxial introducer needle to obtain a total of 1 core samples. The access site was closed using Gel-Foam torpedo. Postprocedure images demonstrate no evidence for hemorrhage. The patient tolerated the procedure well and there were no immediate complications. Specimen(s) sent to pathology. IMPRESSION: 1. Status post successful ultrasound guided core needle biopsy of transplanted liver. Specimen(s) Sent to pathology. I was present for and/or performed the critical portions of the procedure and immediately available throughout the entire procedure. I personally reviewed the images/study and I agree with the findings as stated by Doyle Cavazos MD. This study was performed and interpreted at [place], [place] MACRO: None. Signed by: Татьяна Eid 12/19/2023 9:02 PM Dictation workstation: [id number] [facility] Work Phone: Radiology Study observation (narrative) [facility] Work Phone: US Guidance for biopsy of Li verOrdered By: Татьяна Eid on 12-19-2023 [facility] Work Phone: Alanine aminotransferase [En zymatic activity/volume] in Serum or PlasmaOrdered By: Sharan Ayoub on 12-12-2023 ALT [Catalytic activity/Vol] 104 U/L High 7-52 [facility] Comment on above: Performed By: #### T ACROLIMUS., CMP, CBC #### [facility] [address] Albumin [Mass/volume] in Ser um or Plasma by Bromocresol green (BCG) dye binding methoOrdered By: Sharan Ayoub on 12-12-2023 Albumin BCG dye [Mass/Vol] 3.5 g/dL 3.5-5.7 [facility] Alkaline phosphatase [Enzyma tic activity/volume] in Serum or PlasmaOrdered By: Sharan Ayoub on 12-12-2023 ALP [Catalytic activity/Vol] 252 U/L High 34-104 [facility] Comment on above: Result Comment: PERF ORMED BY: [place] [address] PATHOLOGIST VICTORIAN LITERATURE PROFESSOR MISAEL FOX M.D. Performed By: #### T ACROLIMUS., CMP, CBC #### [address] Aspartate aminotransferase [ Enzymatic activity/volume] in Serum or PlasmaOrdered By: Sharan Ayoub on 12-12-2023 AST [Catalytic activity/Vol] 117 U/L High 13-39 [facility] Comment on above: Performed By: #### T ACROLIMUS., CMP, CBC #### [facility] [address] [place] [address] Automated basophil %Ordered By: Sharan Ayoub on 12-12-2023 Basophils/100 WBC (Bld) 0.7 % Normal . [facility] Comment on above: Performed By: #### T ACROLIMUS., CMP, CBC #### [address] Automated basophil countOrde red By: Sharan Ayoub on 12-12-2023 Basophils (Bld) [#/Vol] 0.0 10*3/uL Normal 0.0-0.2 [facility] Comment on above: Result Comment: PERF ORMED BY: [place] [address] PATHOLOGIST VICTORIAN LITERATURE PROFESSOR MISAEL FOX M.D. Performed By: #### T ACROLIMUS., CMP, CBC #### [address] Automated blood monocyte cou ntOrdered By: Sharan Ayoub on 12-12-2023 Monocytes (Bld) [#/Vol] 0.4 10*3/uL Normal 0.0-0.8 [facility] Comment on above: Performed By: #### T ACROLIMUS., CMP, CBC #### [address] Automated eosinophil %Ordere d By: Sharan Ayoub on 12-12-2023 Eosinophils/100 WBC (Bld) 0.9 % Normal . [facility] Comment on above: Performed By: #### T ACROLIMUS., CMP, CBC #### [address] Automated eosinophil countOr dered By: Sharan Ayoub on 12-12-2023 Eosinophils (Bld) [#/Vol] 0.1 10*3/uL Normal 0.0-0.45 [facility] Comment on above: Performed By: #### T ACROLIMUS., CMP, CBC #### [address] Automated monocyte %Ordered By: Sharan Ayoub on 12-12-2023 Monocytes/100 WBC (Bld) 6.7 % Normal . [facility] Comment on above: Performed By: #### T ACROLIMUS., CMP, CBC #### [address] Automated neutrophil %Ordere d By: Sharan Ayoub on 12-12-2023 Neutrophils/100 WBC (Bld) 67.2 % Normal . [facility] Comment on above: Performed By: #### T ACROLIMUS., CMP, CBC #### [address] Bilirubin.total [Mass/volume ] in Serum or PlasmaOrdered By: Sharan Ayoub on 12-12-2023 Bilirubin [Mass/Vol] 2.9 mg/dL High 0.3-1.0 [facility] Comment on above: Samples from patient s who have taken Naproxen have shown spurious elevation in Total Bilirubin levels. A metabolite of Naproxen, O-desmethylnaproxen, has been shown to interfere with the Jendrassik-Grof method for measuring Total Bilirubin. Result Comment: Samp les from patients who have taken Naproxen have shown spurious elevation in Total Bilirubin levels. A metabolite of Naproxen, O-desmethylnaproxen, has been shown to interfere with the Jendrassik-Grof method for measuring Total Bilirubin. Performed By: #### T ACROLIMUS., CMP, CBC #### [facility] [address] [place] [address] [place] Calcium [Mass/volume] in Ser um or PlasmaOrdered By: Sharan Ayoub on 12-12-2023 Calcium [Mass/Vol] 9.0 mg/dL Normal 8.6-10.3 [facility] Comment on above: Performed By: #### T ACROLIMUS., CMP, CBC #### [facility] [address] [place], [place] [id number] [facility] Carbon dioxide, total [Moles /volume] in Serum or PlasmaOrdered By: Sharan Ayoub on 12-12-2023 CO2 [Moles/Vol] 28.3 mmol/L Normal 21.0-31.0 [facility] Comment on above: Performed By: #### T ACROLIMUS., CMP, CBC #### [facility] [address] [place] [id number] [place] Chloride [Moles/volume] in S kasi or PlasmaOrdered By: Sharan Ayoub on 12-12-2023 Chloride [Moles/Vol] 102 mmol/L Normal 98-107 [facility] Comment on above: Performed By: #### T ACROLIMUS., CMP, CBC #### [facility] [address] [place] [id number] [place] Complete Blood Count Auto Di ffon 12-12-2023 Mean Corpuscular HGB Conc 33.1 g/dL Normal 32.5-35.6 [facility] Comment on above: Performed By: #### T ACROLIMUS., CMP, CBC #### [address] NRBC% 0.1 /100{WBC} Normal 0-0.5 [facility] Comment on above: Performed By: #### T ACROLIMUS., CMP, CBC #### [address] Comprehensive Metabolic Pane sarah 12-12-2023 Albumin [Mass/Vol] 3.5 g/dL Normal 3.5-5.7 [facility] Comment on above: Performed By: #### T ACROLIMUS., CMP, CBC #### [address] GFR/1.73 sq M.predicted MDRD (S/P/Bld) [Vol rate/Area] mL/min/{1.73_m2} Normal [facility] Comment on above: Performed By: #### T ACROLIMUS., CMP, CBC #### [address] Creatinine [Mass/volume] in Serum or PlasmaOrdered By: Sharan Ayoub on 12-12-2023 Creatinine [Mass/Vol] 1.01 mg/dL Normal 0.70-1.30 [facility] Comment on above: Performed By: #### T ACROLIMUS., CMP, CBC #### [address] Erythrocyte distribution wid th [Ratio] by Automated countOrdered By: Sharan Ayoub on 12-12-2023 Erythrocyte distribution width (RBC) [Ratio] 13.7 % Normal 12.0-14.8 [facility] Comment on above: Performed By: #### T ACROLIMUS., CMP, CBC #### [address] Erythrocytes [#/volume] in B lood by Automated countOrdered By: Sharan Ayoub on 12-12-2023 RBC (Bld) [#/Vol] 4.08 10*6/uL Normal 3.90-5.60 [facility] Comment on above: Performed By: #### T ACROLIMUS., CMP, CBC #### [facility] [address] Glucose [Mass/volume] in Ser um or PlasmaOrdered By: Sharan Ayoub on 12-12-2023 Glucose [Mass/Vol] 224 mg/dL High 70-100 [facility] Comment on above: ADA recommended refe rence rangeRandom Glucose Reference Range is dependent on time and content of last meal. Glucose of more than 200 mg/dL in a nonstressed, ambulatory subject supports the diagnosis of Diabetes Mellitus. Result Comment: [place] om Glucose Reference Range is dependent on time and content of last meal. Glucose of more than 200 mg/dL in a nonstressed, ambulatory subject supports the diagnosis of Diabetes Mellitus. ADA recommended reference range Performed By: #### T ACROLIMUS., CMP, CBC #### [facility] [address] Hematocrit [Volume Fraction] of Blood by Automated countOrdered By: Sharan Ayoub on 12-12-2023 Hematocrit (Bld) [Volume fraction] 38.5 % Low 38.8-50.0 [facility] Comment on above: Performed By: #### T ACROLIMUS., CMP, CBC #### [facility] [address] [place] [address] [place] Hemoglobin [Mass/volume] in BloodOrdered By: Sharan Ayoub on 12-12-2023 Hemoglobin (Bld) [Mass/Vol] 12.8 g/dL Low 13.0-17.0 [facility] Comment on above: Performed By: #### T ACROLIMUS., CMP, CBC #### [facility] [address] [place] [address] [place] INR in Platelet poor plasma by Coagulation assayOrdered By: Sharan Ayoub on 12-12-2023 INR Coag (PPP) [Relative time] 1.2 {INR} Normal [facility] Comment on above: INR Therapeutic Rang e A) Pre- and Peroperative OAT started two weeks before surgery. NOT HIP SURGERY: 1.5 - 2.5 HIP SURGERY: 2 - 3B) Primary and secondary prevention of venous THROMBOSIS: 2 - 3C) Active venous thrombosis, pulmonary embolismand prevention of recurrent venous thrombosis: 2 - 3D) Prevention of arterial thromboembolismincluding patients with mechanical heart valves: 3 - 4.5 Order Comment: List the anticoagulant: ASPIRIN Result Comment: INR Therapeutic Range A) Pre- and Peroperative OAT started two weeks before surgery. NOT HIP SURGERY: 1.5 - 2.5 HIP SURGERY: 2 - 3 B) Primary and secondary prevention of venous THROMBOSIS: 2 - 3 C) Active venous thrombosis, pulmonary embolism and prevention of recurrent venous thrombosis: 2 - 3 D) Prevention of arterial thromboembolism including patients with mechanical heart valves: 3 - 4.5 PERFORMED BY: [place] [address] PATHOLOGIST VICTORIAN LITERATURE PROFESSOR MISAEL FOX M.D. Performed By: #### T ACROLIMUS., CMP, CBC #### [address] Leukocytes [#/volume] correc roderick for nucleated erythrocytes in Blood by Automated counOrdered By: Sharan Ayoub on 12-12-2023 WBC corrected for nucl RBC Auto (Bld) [#/Vol] 6.1 10*3/uL 4.1-10.5 [facility] Leukocytes [#/volume] in Blo od by Automated countOrdered By: Sharan Ayoub on 12-12-2023 WBC (Bld) [#/Vol] 6.1 10*3/uL Normal 4.1-10.5 [facility] Comment on above: Performed By: #### T ACROLIMUS., CMP, CBC #### [facility] [address] [place] [address] [place] Lymphocytes [#/volume] in Bl ood by Automated countOrdered By: Sharan Ayoub on 12-12-2023 Lymphocytes (Bld) [#/Vol] 1.5 10*3/uL Normal 1.00-4.8 [facility] Comment on above: Performed By: #### T ACROLIMUS., CMP, CBC #### [address] [address] [place] Lymphocytes/100 leukocytes i n Blood by Automated countOrdered By: Sharan Ayoub on 12-12-2023 Lymphocytes/100 WBC (Bld) 24.5 % Normal . [facility] Comment on above: Performed By: #### T ACROLIMUS., CMP, CBC #### [facility] [address] [place] [address] MCH [Entitic mass] by Automa roderick countOrdered By: Sharan Ayoub on 12-12-2023 MCH (RBC) [Entitic mass] 31.3 pg Normal 27.5-35.2 [facility] Comment on above: Performed By: #### T ACROLIMUS., CMP, CBC #### [facility] [address] [place] [address] MCHC Auto (RBC) [Mass/Vol]Or dered By: Sharan Ayoub on 12-12-2023 MCHC (RBC) [Mass/Vol] 33.1 g/dL 32.5-35.6 [facility] MCV [Entitic volume] by Auto mated countOrdered By: Sharan Ayoub on 12-12-2023 MCV (RBC) [Entitic vol] 94.5 fL Normal 83.5-101 [facility] Comment on above: Performed By: #### T ACROLIMUS., CMP, CBC #### [facility] [address] [place] [address] Neutrophils [#/volume] in Bl ood by Automated countOrdered By: Sharan Ayoub on 12-12-2023 Neutrophils (Bld) [#/Vol] 4.1 10*3/uL Normal 1.8-7.7 [facility] Comment on above: Performed By: #### T ACROLIMUS., CMP, CBC #### [facility] [address] [place] [address] No Panel InformationOrdered By: Sharan Ayoub on 12-12-2023 Estimated GFR (CKD-EPI) > 60.0 mL/Min [facility] Creatinine Clearance (Chem N/A [facility] Nucleated erythrocytes [Pres ence] in Blood by Automated countOrdered By: Sharan Ayoub on 12-12-2023 Nucleated RBC Auto Ql (Bld) 0.1 /100{WBC} 0-0.5 [facility] Platelet mean volume [Entiti c volume] in Blood by Automated countOrdered By: Sharan Ayoub on 12-12-2023 Platelet mean volume (Bld) [Entitic vol] 11.2 fL High 6.6-10.1 [facility] Comment on above: Performed By: #### T ACROLIMUS., CMP, CBC #### [facility] [address] Platelets [#/volume] in Bloo d by Automated countOrdered By: Sharan Ayoub on 12-12-2023 Platelets (Bld) [#/Vol] 133 10*3/uL Low 150-450 [facility] Comment on above: Performed By: #### T ACROLIMUS., CMP, CBC #### [facility] [address] [place] [address] [place] Potassium [Moles/volume] in Serum or PlasmaOrdered By: Sharan Ayoub on 12-12-2023 Potassium [Moles/Vol] 4.1 mmol/L Normal 3.5-5.1 [facility] Comment on above: Performed By: #### T ACROLIMUS., CMP, CBC #### [facility] [address] [place] [address] [place] Protein [Mass/volume] in Ser um or PlasmaOrdered By: Sharan Ayoub on 12-12-2023 Protein [Mass/Vol] 7.2 g/dL Normal 6.4-8.9 [facility] Comment on above: Performed By: #### T ACROLIMUS., CMP, CBC #### [facility] [address] [place] [address] [place] Prothrombin time (PT)Ordered By: Sharan Ayoub on 12-12-2023 PT Coag (PPP) [Time] 13.4 s High 9.0-12.9 [facility] Comment on above: A hematocrit value g reater than 55% may lead to inaccurate results in coagulation testing. Patients having hematocrit values >55% require a special collection tube for coagulation studies. Please contact the laboratory at [phone] for redraw instructions. Order Comment: List the anticoagulant: ASPIRIN Result Comment: A he matocrit value greater than 55% may lead to inaccurate results in coagulation testing. Patients having hematocrit values >55% require a special collection tube for coagulation studies. Please contact the laboratory at [phone] for redraw instructions. Performed By: #### T ACROLIMUS., CMP, CBC #### [address] Serum globulin measurement b y calculation (mass/volume)Ordered By: Sharan Ayoub on 12-12-2023 Globulin (S) [Mass/Vol] 3.7 g/dL [facility] Comment on above: Performed By: #### T ACROLIMUS., CMP, CBC #### [address] Serum or plasma albumin/glob ulin mass ratioOrdered By: Sharan Ayoub on 12-12-2023 Albumin/Globulin [Mass ratio] 0.9 {ratio} [facility] Comment on above: Performed By: #### T ACROLIMUS. CMP, CBC #### [address] Serum or plasma anion gap de terminationOrdered By: Sharan Ayoub on 12-12-2023 Anion gap [Moles/Vol] 11.8 mmol/L Normal 6.0-15.0 [facility] Comment on above: Performed By: #### T ACROLIMUS., CMP, CBC #### [address] Sodium [Moles/volume] in Ser um or PlasmaOrdered By: Sharan Ayoub on 12-12-2023 Sodium [Moles/Vol] 138 mmol/L Normal 136-145 [facility] Comment on above: Performed By: #### T ACROLIMUS., CMP, CBC #### [address] Tacrolimuson 12-12-2023 Tacrolimus (Bld) [Mass/Vol] 10.5 ng/mL Normal <=15.0 [facility] Comment on above: Order Comment: NOTE: Result was obtained using a chemiluminescent microparticle immunoassay (CMIA) on the Stem Roller Or Crusher Operator i system. Optimal therapeutic ranges for immunosuppressant drugs depend upon an individual patient's current clinical state, type of organ transplant, time post-transplant, co-administration of other immunosuppressants, and other clinical factors. The results of this test should be correlated with additional clinical and laboratory data before changes in treatment regimens are made. Performed By: #### 1 1253-2 #### NORMA Cherry ([id number]) [facility] ([facility]) [id number] [place] [address] Tacrolimus (Transplant) No C hgon 12-12-2023 Tacrolimus (Transplant) No Chg Sent to Ref Lab Normal [facility] Comment on above: Result Comment: PERF ORMED BY: [place] [address] PATHOLOGIST VICTORIAN LITERATURE PROFESSOR MISAEL FOX M.D. Performed By: #### T ACROLIMUS., CMP, CBC #### [place] [address] [place] Tacrolimus [Mass/volume] in BloodOrdered By: Sharan Ayoub on 12-12-2023 Tacrolimus (Bld) [Mass/Vol] Sent to ref lab [facility] Urea nitrogen [Mass/volume] in Serum or PlasmaOrdered By: Sharan Ayoub on 12-12-2023 Urea nitrogen [Mass/Vol] 18 mg/dL Normal 04-25 [facility] Comment on above: Performed By: #### T ACROLIMUS., CMP, CBC #### [place] [id number] [place] Alanine aminotransferase [En zymatic activity/volume] in Serum or PlasmaOrdered By: Sharan Ayoub on 12-04-2023 ALT [Catalytic activity/Vol] 91 U/L High [facility] Comment on above: Performed By: #### C MP, CBC, TACROLIMUS. #### [facility] [address] [place] [address] [place] Albumin [Mass/volume] in Ser um or Plasma by Bromocresol green (BCG) dye binding methoOrdered By: Sharan Ayoub on 12-04-2023 Albumin BCG dye [Mass/Vol] 3.2 g/dL 3.5-5.7 [facility] Alkaline phosphatase [Enzyma tic activity/volume] in Serum or PlasmaOrdered By: Sharan Ayoub on 12-04-2023 ALP [Catalytic activity/Vol] 244 U/L High 34-104 [facility] Comment on above: Result Comment: PERF ORMED BY: [place] [address] PATHOLOGIST VICTORIAN LITERATURE PROFESSOR MISAEL FOX M.D. Performed By: #### C MP, CBC, TACROLIMUS. #### [address] Anisocytosis [Presence] in B lood by Light microscopyOrdered By: Sharan Ayoub on 12-04-2023 Anisocytosis Ql (Bld) Slight Normal [facility] Comment on above: Performed By: #### C MP, CBC, TACROLIMUS. #### [address] Aspartate aminotransferase [ Enzymatic activity/volume] in Serum or PlasmaOrdered By: Sharan Ayoub on 12-04-2023 AST [Catalytic activity/Vol] 116 U/L High 13-39 [facility] Comment on above: Performed By: #### C MP, CBC, TACROLIMUS. #### [address] Automated basophil %Ordered By: Sharan Ayoub on 12-04-2023 Basophils/100 WBC (Bld) 0.4 % Normal . [facility] Comment on above: Performed By: #### C MP, CBC, TACROLIMUS. #### [address] Automated basophil countOrde red By: Sharan Ayoub on 12-04-2023 Basophils (Bld) [#/Vol] 0.0 10*3/uL Normal 0.0-0.2 [facility] Comment on above: Performed By: #### C MP, CBC, TACROLIMUS. #### [address] Automated blood monocyte cou ntOrdered By: Sharan Ayoub on 12-04-2023 Monocytes (Bld) [#/Vol] 0.4 10*3/uL Normal 0.0-0.8 [facility] Comment on above: Performed By: #### C MP, CBC, TACROLIMUS. #### [address] Automated eosinophil %Ordere d By: Sharan Ayoub on 12-04-2023 Eosinophils/100 WBC (Bld) 3.6 % Normal . [facility] Comment on above: Performed By: #### C MP, CBC, TACROLIMUS. #### [address] Automated eosinophil countOr dered By: Sharan Ayoub on 12-04-2023 Eosinophils (Bld) [#/Vol] 0.2 10*3/uL Normal 0.0-0.45 [facility] Comment on above: Performed By: #### C MP, CBC, TACROLIMUS. #### [address] Automated monocyte %Ordered By: Sharan Ayoub on 12-04-2023 Monocytes/100 WBC (Bld) 9.2 % Normal . [facility] Comment on above: Performed By: #### C MP, CBC, TACROLIMUS. #### [address] Automated neutrophil %Ordere d By: Sharan Ayoub on 12-04-2023 Neutrophils/100 WBC (Bld) 44.3 % Normal . [facility] Comment on above: Performed By: #### C MP, CBC, TACROLIMUS. #### [address] Bilirubin.total [Mass/volume ] in Serum or PlasmaOrdered By: Sharan Ayoub on 12-04-2023 Bilirubin [Mass/Vol] 2.5 mg/dL High 0.3-1.0 [facility] Comment on above: Samples from patient s who have taken Naproxen have shown spurious elevation in Total Bilirubin levels. A metabolite of Naproxen, O-desmethylnaproxen, has been shown to interfere with the Jendrassik-Grof method for measuring Total Bilirubin. Result Comment: Samp les from patients who have taken Naproxen have shown spurious elevation in Total Bilirubin levels. A metabolite of Naproxen, O-desmethylnaproxen, has been shown to interfere with the Jendrassik-Grof method for measuring Total Bilirubin. Performed By: #### C MP, CBC, TACROLIMUS. #### [facility] [address] Calcium [Mass/volume] in Ser um or PlasmaOrdered By: Sharan Ayoub on 12-04-2023 Calcium [Mass/Vol] 8.8 mg/dL Normal 8.6-10.3 [facility] Comment on above: Performed By: #### C MP, CBC, TACROLIMUS. #### [address] Carbon dioxide, total [Moles /volume] in Serum or PlasmaOrdered By: Sharan Ayoub on 12-04-2023 CO2 [Moles/Vol] 31.9 mmol/L High 21.0-31.0 [facility] Comment on above: Performed By: #### C MP, CBC, TACROLIMUS. #### [address] Chloride [Moles/volume] in S kasi or PlasmaOrdered By: Sharan Ayoub on 12-04-2023 Chloride [Moles/Vol] 107 mmol/L Normal 98-107 [facility] Comment on above: Performed By: #### C MP, CBC, TACROLIMUS. #### [address] Comprehensive Metabolic Pane sarah 12-04-2023 Albumin [Mass/Vol] 3.2 g/dL Low 3.5-5.7 [facility] Comment on above: Performed By: #### C MP, CBC, TACROLIMUS. #### [address] GFR/1.73 sq M.predicted MDRD (S/P/Bld) [Vol rate/Area] mL/min/{1.73_m2} Normal [facility] Comment on above: Performed By: #### C MP, CBC, TACROLIMUS. #### [facility] [address] Creatinine [Mass/volume] in Serum or PlasmaOrdered By: Sharan Ayoub on 12-04-2023 Creatinine [Mass/Vol] 1.00 mg/dL Normal 0.70-1.30 [facility] Comment on above: Performed By: #### C MP, CBC, TACROLIMUS. #### [facility] [address] Erythrocyte distribution wid th [Ratio] by Automated countOrdered By: Sharan Ayoub on 12-04-2023 Erythrocyte distribution width (RBC) [Ratio] 14.3 % Normal 12.0-14.8 [facility] Comment on above: Performed By: #### C MP, CBC, TACROLIMUS. #### [address] Erythrocytes [#/volume] in B lood by Automated countOrdered By: Sharan Ayoub on 12-04-2023 RBC (Bld) [#/Vol] 4.18 10*6/uL Normal 3.90-5.60 [facility] Comment on above: Performed By: #### C MP, CBC, TACROLIMUS. #### [address] Glucose [Mass/volume] in Ser um or PlasmaOrdered By: Sharan Ayoub on 12-04-2023 Glucose [Mass/Vol] 95 mg/dL Normal 70-100 [facility] Comment on above: ADA recommended refe rence rangeRandom Glucose Reference Range is dependent on time and content of last meal. Glucose of more than 200 mg/dL in a nonstressed, ambulatory subject supports the diagnosis of Diabetes Mellitus. Result Comment: [place] om Glucose Reference Range is dependent on time and content of last meal. Glucose of more than 200 mg/dL in a nonstressed, ambulatory subject supports the diagnosis of Diabetes Mellitus. ADA recommended reference range Performed By: #### C MP, CBC, TACROLIMUS. #### [address] Hematocrit [Volume Fraction] of Blood by Automated countOrdered By: Sharan Ayoub on 12-04-2023 Hematocrit (Bld) [Volume fraction] 39.3 % Normal 38.8-50.0 [facility] Comment on above: Performed By: #### C MP, CBC, TACROLIMUS. #### [address] Hemoglobin [Mass/volume] in BloodOrdered By: Sharan Ayoub on 12-04-2023 Hemoglobin (Bld) [Mass/Vol] 13.2 g/dL Normal 13.0-17.0 [facility] Comment on above: Performed By: #### C MP, CBC, TACROLIMUS. #### [address] Leukocytes [#/volume] correc roderick for nucleated erythrocytes in Blood by Automated counOrdered By: Sharan Ayoub on 12-04-2023 WBC corrected for nucl RBC Auto (Bld) [#/Vol] 4.3 10*3/uL 4.1-10.5 [facility] Leukocytes [#/volume] in Blo od by Automated countOrdered By: Sharan Ayoub on 12-04-2023 WBC (Bld) [#/Vol] 4.3 10*3/uL Normal 4.1-10.5 [facility] Comment on above: Performed By: #### C MP, CBC, TACROLIMUS. #### [place] [address] [place] Lymphocytes [#/volume] in Bl ood by Automated countOrdered By: Sharan Ayoub on 12-04-2023 Lymphocytes (Bld) [#/Vol] 1.8 10*3/uL Normal 1.00-4.8 [facility] Comment on above: Performed By: #### C MP, CBC, TACROLIMUS. #### [place] [address] [place] Lymphocytes/100 leukocytes i n Blood by Automated countOrdered By: Sharan Ayoub on 12-04-2023 Lymphocytes/100 WBC (Bld) 42.5 % Normal . [facility] Comment on above: Performed By: #### C MP, CBC, TACROLIMUS. #### [facility] [address] [place] [address] MCH [Entitic mass] by Automa roderick countOrdered By: Sharan Ayoub on 12-04-2023 MCH (RBC) [Entitic mass] 31.7 pg Normal 27.5-35.2 [facility] Comment on above: Performed By: #### C MP, CBC, TACROLIMUS. #### [facility] [address] [place] [address] MCHC Auto (RBC) [Mass/Vol]Or dered By: Sharan Ayoub on 12-04-2023 MCHC (RBC) [Mass/Vol] 33.6 g/dL 32.5-35.6 [facility] MCV [Entitic volume] by Auto mated countOrdered By: Sharan Ayoub on 12-04-2023 MCV (RBC) [Entitic vol] 94.2 fL Normal 83.5-101 [facility] Comment on above: Performed By: #### C MP, CBC, TACROLIMUS. #### [facility] [address] [place] [address] Neutrophils [#/volume] in Bl ood by Automated countOrdered By: Sharan Ayoub on 12-04-2023 Neutrophils (Bld) [#/Vol] 1.9 10*3/uL Normal 1.8-7.7 [facility] Comment on above: Performed By: #### C MP, CBC, TACROLIMUS. #### [facility] [address] [place] [address] No Panel InformationOrdered By: Sharan Ayoub on 12-04-2023 Estimated GFR (CKD-EPI) > 60.0 mL/Min [facility] Creatinine Clearance (Chem N/A [facility] Nucleated erythrocytes [Pres ence] in Blood by Automated countOrdered By: Sharan Ayoub on 12-04-2023 Nucleated RBC Auto Ql (Bld) 0.2 /100{WBC} 0-0.5 [facility] Platelet adequacy [Presence] in Blood by Light microscopyOrdered By: Sharan Ayoub on 12-04-2023 Platelets LM Ql (Bld) Decreased Normal [facility] Platelet mean volume [Entiti c volume] in Blood by Automated countOrdered By: Sharan Ayoub on 12-04-2023 Platelet mean volume (Bld) [Entitic vol] 12.0 fL High 6.6-10.1 [facility] Comment on above: Performed By: #### C MP, CBC, TACROLIMUS. #### [address] Platelet morphology finding [Identifier] in BloodOrdered By: Sharan Ayoub on 12-04-2023 Platelet morphology finding Nom (Bld) N/A [facility] Platelets Large [Presence] i n Blood by Light microscopyOrdered By: Sharan Ayoub on 12-04-2023 Platelets Large LM Ql (Bld) Slight [facility] Platelets [#/volume] in Bloo d by Automated countOrdered By: Sharan Ayoub on 12-04-2023 Platelets (Bld) [#/Vol] 107 10*3/uL Low 150-450 [facility] Comment on above: Performed By: #### C MP, CBC, TACROLIMUS. #### [facility] [address] [place] [address] [place] Potassium [Moles/volume] in Serum or PlasmaOrdered By: Sharan Ayoub on 12-04-2023 Potassium [Moles/Vol] 4.1 mmol/L Normal 3.5-5.1 [facility] Comment on above: Performed By: #### C MP, CBC, TACROLIMUS. #### [facility] [address] [place] [address] [place] Protein [Mass/volume] in Ser um or PlasmaOrdered By: Sharan Ayoub on 12-04-2023 Protein [Mass/Vol] 6.9 g/dL Normal 6.4-8.9 [facility] Comment on above: Performed By: #### C MP, CBC, TACROLIMUS. #### [place] [address] [place] RBC morphologyOrdered By: Kanu Ayoub on 12-04-2023 RBC morphology finding Nom (Bld) Normal Normal Normal [facility] Comment on above: Performed By: #### C MP, CBC, TACROLIMUS. #### [address] Scan and CBCon 12-04-2023 Large Platelets Slight Normal [facility] Comment on above: Result Comment: PERF ORMED BY: [place] [address] PATHOLOGIST VICTORIAN LITERATURE PROFESSOR MISAEL FOX M.D. Performed By: #### C MP, CBC, TACROLIMUS. #### [address] Mean Corpuscular HGB Conc 33.6 g/dL Normal 32.5-35.6 [facility] Comment on above: Performed By: #### C MP, CBC, TACROLIMUS. #### [address] NRBC% 0.2 /100{WBC} Normal 0-0.5 [facility] Comment on above: Performed By: #### C MP, CBC, TACROLIMUS. #### [address] Platelet Estimate Decreased Normal Normal [facility] Comment on above: Performed By: #### C MP, CBC, TACROLIMUS. #### [address] Serum globulin measurement b y calculation (mass/volume)Ordered By: Sharan Ayoub on 12-04-2023 Globulin (S) [Mass/Vol] 3.7 g/dL Normal [facility] Comment on above: Performed By: #### C MP, CBC, TACROLIMUS. #### [address] Serum or plasma albumin/glob ulin mass ratioOrdered By: Sharan Ayoub on 12-04-2023 Albumin/Globulin [Mass ratio] 0.9 {ratio} Normal [facility] Comment on above: Performed By: #### C MP, CBC, TACROLIMUS. #### [address] Serum or plasma anion gap de terminationOrdered By: Sharan Ayoub on 12-04-2023 Anion gap [Moles/Vol] 6.2 mmol/L Normal 6.0-15.0 [facility] Comment on above: Performed By: #### C MP, CBC, TACROLIMUS. #### [address] Sodium [Moles/volume] in Ser um or PlasmaOrdered By: Sharan Ayoub on 12-04-2023 Sodium [Moles/Vol] 141 mmol/L Normal 136-145 [facility] Comment on above: Performed By: #### C MP, CBC, TACROLIMUS. #### [address] Tacrolimuson 12-04-2023 Tacrolimus (Bld) [Mass/Vol] 17.1 ng/mL High <=15.0 [facility] Comment on above: Order Comment: NOTE: Result was obtained using a chemiluminescent microparticle immunoassay (CMIA) on the Stem Roller Or Crusher Operator i system. Optimal therapeutic ranges for immunosuppressant drugs depend upon an individual patient's current clinical state, type of organ transplant, time post-transplant, co-administration of other immunosuppressants, and other clinical factors. The results of this test should be correlated with additional clinical and laboratory data before changes in treatment regimens are made. Performed By: #### 1 1253-2 #### NORMA Cherry ([id number]) [facility] ([facility]) [id number] [place] [address] Tacrolimus (Transplant) No C hgon 12-04-2023 Tacrolimus (Transplant) No Chg Sent to Ref Lab Normal [facility] Comment on above: Result Comment: PERF ORMED BY: [place] [address] PATHOLOGIST VICTORIAN LITERATURE PROFESSOR MISAEL FOX M.D. Performed By: #### C MP, CBC, TACROLIMUS. #### [address] Tacrolimus [Mass/volume] in BloodOrdered By: Sharan Ayoub on 12-04-2023 Tacrolimus (Bld) [Mass/Vol] Sent to ref lab [facility] Urea nitrogen [Mass/volume] in Serum or PlasmaOrdered By: Sharan Ayoub on 12-04-2023 Urea nitrogen [Mass/Vol] 17 mg/dL Normal 04-25 [facility] Comment on above: Performed By: #### C MP, CBC, TACROLIMUS. #### [facility] [address] TacrolimusOrdered By: Staic Yates on 10-27-2023 Tacrolimus (Bld) [Mass/Vol] 12.0 ng/mL NINF - 15.0 ng/mL [facility] Tacrolimus (Bld) [Mass/Vol]O rdered By: Adrian Yates on 10-27-2023 Interpretation and review of laboratory results Normal [facility] NOTE: Result was obt ained using a chemiluminescent microparticle immunoassay (CMIA) on the Stem Roller Or Crusher Operator i system. Optimal therapeutic ranges for immunosuppressant drugs depend upon an individual patient's current clinical state, type of organ transplant, time post-transplant, co-administration of other immunosuppressants, and other clinical factors. The results of this test should be correlated with additional clinical and laboratory data before changes in treatment regimens are made. [facility] Alanine aminotransferase [En zymatic activity/volume] in Serum or PlasmaOrdered By: Sharan Ayoub on 10-26-2023 ALT [Catalytic activity/Vol] 93 U/L High 7 [facility] Comment on above: Performed By: #### C MP, CBC, TACROLIMUS. #### [facility] [address] [place] [address] Albumin [Mass/volume] in Ser um or Plasma by Bromocresol green (BCG) dye binding methoOrdered By: Sharan Ayoub on 10-26-2023 Albumin BCG dye [Mass/Vol] 3.7 g/dL 3.5-5.7 [facility] Alkaline phosphatase [Enzyma tic activity/volume] in Serum or PlasmaOrdered By: Sharan Ayoub on 10-26-2023 ALP [Catalytic activity/Vol] 235 U/L High 34-104 [facility] Comment on above: Result Comment: PERF ORMED BY: [place] [address] PATHOLOGIST VICTORIAN LITERATURE PROFESSOR MISAEL FOX M.D. Performed By: #### C MP, CBC, TACROLIMUS. #### [facility] [address] Aspartate aminotransferase [ Enzymatic activity/volume] in Serum or PlasmaOrdered By: Sharan Ayoub on 10-26-2023 AST [Catalytic activity/Vol] 83 U/L High 13-39 [facility] Comment on above: Performed By: #### C MP, CBC, TACROLIMUS. #### [facility] [address] Basophils Auto (Bld) [#/Vol] Ordered By: Sharan Ayoub on 10-26-2023 Basophils (Bld) [#/Vol] N/A [facility] Basophils/100 WBC Auto (Bld) Ordered By: Sharan Ayoub on 10-26-2023 Basophils/100 WBC (Bld) N/A [facility] Bilirubin.total [Mass/volume ] in Serum or PlasmaOrdered By: Sharan Ayoub on 10-26-2023 Bilirubin [Mass/Vol] 2.0 mg/dL High 0.3-1.0 [facility] Comment on above: Samples from patient s who have taken Naproxen have shown spurious elevation in Total Bilirubin levels. A metabolite of Naproxen, O-desmethylnaproxen, has been shown to interfere with the Jendrassik-Grof method for measuring Total Bilirubin. Result Comment: Samp les from patients who have taken Naproxen have shown spurious elevation in Total Bilirubin levels. A metabolite of Naproxen, O-desmethylnaproxen, has been shown to interfere with the Jendrassik-Grof method for measuring Total Bilirubin. Performed By: #### C MP, CBC, TACROLIMUS. #### [facility] [address] [place] [address] Calcium [Mass/volume] in Ser um or PlasmaOrdered By: Sharan Ayoub on 10-26-2023 Calcium [Mass/Vol] 9.3 mg/dL Normal 8.6-10.3 [facility] Comment on above: Performed By: #### C MP, CBC, TACROLIMUS. #### [address] Carbon dioxide, total [Moles /volume] in Serum or PlasmaOrdered By: Sharan Ayoub on 10-26-2023 CO2 [Moles/Vol] 31.5 mmol/L High 21.0-31.0 [facility] Comment on above: Performed By: #### C MP, CBC, TACROLIMUS. #### [address] Chloride [Moles/volume] in S kasi or PlasmaOrdered By: Sharan Ayoub on 10-26-2023 Chloride [Moles/Vol] 99 mmol/L Normal 98-107 [facility] Comment on above: Performed By: #### C MP, CBC, TACROLIMUS. #### [address] Comprehensive Metabolic Pane sarah 10-26-2023 Albumin [Mass/Vol] 3.7 g/dL Normal 3.5-5.7 [facility] Comment on above: Performed By: #### C MP, CBC, TACROLIMUS. #### [address] GFR/1.73 sq M.predicted MDRD (S/P/Bld) [Vol rate/Area] mL/min/{1.73_m2} Normal [facility] Comment on above: Performed By: #### C MP, CBC, TACROLIMUS. #### [facility] [address] [place] [address] Creatinine [Mass/volume] in Serum or PlasmaOrdered By: Sharan Ayoub on 10-26-2023 Creatinine [Mass/Vol] 1.09 mg/dL Normal 0.70-1.30 [facility] Comment on above: Performed By: #### C MP, CBC, TACROLIMUS. #### [facility] [address] [place] [address] Diff and CBCon 10-26-2023 Giant Platelet Tally 2 /100{WBC} Normal [facility] Comment on above: Performed By: #### C MP, CBC, TACROLIMUS. #### [address] Mean Corpuscular HGB Conc 33.8 g/dL Normal 32.5-35.6 [facility] Comment on above: Performed By: #### C MP, CBC, TACROLIMUS. #### [address] Platelet Estimate Decreased Normal Normal [facility] Comment on above: Performed By: #### C MP, CBC, TACROLIMUS. #### [facility] [address] [place] [address] Platelet Morphology Normal Normal Normal [facility] Comment on above: Result Comment: PERF ORMED BY: [place] [address] PATHOLOGIST VICTORIAN LITERATURE PROFESSOR MISAEL FOX M.D. Performed By: #### C MP, CBC, TACROLIMUS. #### [address] Eosinophils Auto (Bld) [#/Vo l]Ordered By: Sharan Ayoub on 10-26-2023 Eosinophils (Bld) [#/Vol] N/A [facility] Eosinophils/100 WBC Auto (Bl d)Ordered By: Sharan Ayoub on 10-26-2023 Eosinophils/100 WBC (Bld) N/A [facility] Erythrocyte distribution wid th [Ratio] by Automated countOrdered By: Sharan Ayoub on 10-26-2023 Erythrocyte distribution width (RBC) [Ratio] 14.1 % Normal 12.0-14.8 [facility] Comment on above: Performed By: #### C MP, CBC, TACROLIMUS. #### [address] Erythrocytes [#/volume] in B lood by Automated countOrdered By: Sharan Ayoub on 10-26-2023 RBC (Bld) [#/Vol] 4.24 10*6/uL Normal 3.90-5.60 [facility] Comment on above: Performed By: #### C MP, CBC, TACROLIMUS. #### [facility] [address] [place] [address] [place] Giant platelets/100 leukocyt es [Ratio] in Blood by Manual countOrdered By: Sharan Ayoub on 10-26-2023 Giant platelets/100 WBC Manual cnt (Bld) [Ratio] 2 /100{WBC} [facility] Glucose [Mass/volume] in Ser um or PlasmaOrdered By: Sharan Ayoub on 10-26-2023 Glucose [Mass/Vol] 307 mg/dL High 70-100 [facility] Comment on above: ADA recommended refe rence rangeRandom Glucose Reference Range is dependent on time and content of last meal. Glucose of more than 200 mg/dL in a nonstressed, ambulatory subject supports the diagnosis of Diabetes Mellitus. Result Comment: [place] [facility] Glucose Reference Range is dependent on time and content of last meal. Glucose of more than 200 mg/dL in a nonstressed, ambulatory subject supports the diagnosis of Diabetes Mellitus. ADA recommended reference range Performed By: #### C MP, CBC, TACROLIMUS. #### [facility] [address] Hematocrit [Volume Fraction] of Blood by Automated countOrdered By: Sharan Ayoub on 10-26-2023 Hematocrit (Bld) [Volume fraction] 39.7 % Normal 38.8-50.0 [facility] Comment on above: Performed By: #### C MP, CBC, TACROLIMUS. #### [facility] [address] Hemoglobin [Mass/volume] in BloodOrdered By: Sharan Ayoub on 10-26-2023 Hemoglobin (Bld) [Mass/Vol] 13.4 g/dL Normal 13.0-17.0 [facility] Comment on above: Performed By: #### C MP, CBC, TACROLIMUS. #### [facility] [address] Leukocytes [#/volume] correc roderick for nucleated erythrocytes in Blood by Automated counOrdered By: Sharan Ayoub on 10-26-2023 WBC corrected for nucl RBC Auto (Bld) [#/Vol] 6.6 10*3/uL 4.1-10.5 [facility] Leukocytes [#/volume] in Blo od by Automated countOrdered By: Sharan Ayoub on 10-26-2023 WBC (Bld) [#/Vol] 6.6 10*3/uL Normal 4.1-10.5 [facility] Comment on above: Performed By: #### C MP, CBC, TACROLIMUS. #### [facility] [address] Lymphocytes Auto (Bld) [#/Vo l]Ordered By: Sharan Ayoub on 10-26-2023 Lymphocytes (Bld) [#/Vol] N/A [facility] Lymphocytes/100 WBC Auto (Bl d)Ordered By: Sharan Ayoub on 10-26-2023 Lymphocytes/100 WBC (Bld) N/A [facility] Lymphocytes/100 leukocytes i n Blood by Manual countOrdered By: Sharan Ayoub on 10-26-2023 Lymphocytes/100 WBC (Bld) 10 % Low 18-42 [facility] Comment on above: Performed By: #### C MP, CBC, TACROLIMUS. #### [facility] [address] [place] [address] MCH [Entitic mass] by Automa roderick countOrdered By: Sharan Ayoub on 10-26-2023 MCH (RBC) [Entitic mass] 31.7 pg Normal 27.5-35.2 [facility] Comment on above: Performed By: #### C MP, CBC, TACROLIMUS. #### [facility] [address] [place] [address] MCHC Auto (RBC) [Mass/Vol]Or dered By: Sharan Ayoub on 10-26-2023 MCHC (RBC) [Mass/Vol] 33.8 g/dL 32.5-35.6 [facility] MCV [Entitic volume] by Auto mated countOrdered By: Sharan Ayoub on 10-26-2023 MCV (RBC) [Entitic vol] 93.7 fL Normal 83.5-101 [facility] Comment on above: Performed By: #### C MP, CBC, TACROLIMUS. #### [facility] [address] Manual blood segmented neutr ophils/100 leukocytesOrdered By: Sharan Ayoub on 10-26-2023 Segmented neutrophils/100 WBC (Bld) 78 % High 50-70 [facility] Comment on above: Performed By: #### C MP, CBC, TACROLIMUS. #### [facility] [address] Monocytes Auto (Bld) [#/Vol] Ordered By: Sharan Ayoub on 10-26-2023 Monocytes (Bld) [#/Vol] N/A [facility] Monocytes/100 WBC Auto (Bld) Ordered By: Sharan Ayoub on 10-26-2023 Monocytes/100 WBC (Bld) N/A [facility] Monocytes/100 leukocytes in Blood by Manual countOrdered By: Sharan Ayoub on 10-26-2023 Monocytes/100 WBC (Bld) 9 % Normal 2-11 [facility] Comment on above: Performed By: #### C MP, CBC, TACROLIMUS. #### [facility] [address] Neutrophils Auto (Bld) [#/Vo l]Ordered By: Sharan Ayoub on 10-26-2023 Neutrophils (Bld) [#/Vol] N/A [facility] Neutrophils/100 WBC Auto (Bl d)Ordered By: Sharan Ayoub on 10-26-2023 Neutrophils/100 WBC (Bld) N/A [facility] No Panel InformationOrdered By: Sharan Ayoub on 10-26-2023 Estimated GFR (CKD-EPI) > 60.0 mL/Min [facility] Creatinine Clearance (Chem N/A [facility] Nucleated erythrocytes [Pres ence] in Blood by Automated countOrdered By: Sharan Ayoub on 10-26-2023 Nucleated RBC Auto Ql (Bld) N/A [facility] Peripheral white blood cell differential % bands, microscopic examOrdered By: Sharan Ayoub on 10-26-2023 Band form neutrophils/100 WBC (Bld) 2 % Normal 0-5 [facility] Comment on above: Performed By: #### C MP, CBC, TACROLIMUS. #### [facility] [address] [place] [address] Platelet adequacy [Presence] in Blood by Light microscopyOrdered By: Sharan Ayoub on 10-26-2023 Platelets LM Ql (Bld) Decreased Normal [facility] Platelet mean volume [Entiti c volume] in Blood by Automated countOrdered By: Sharan Ayoub on 10-26-2023 Platelet mean volume (Bld) [Entitic vol] 10.7 fL High 6.6-10.1 [facility] Comment on above: Performed By: #### C MP, CBC, TACROLIMUS. #### [address] Platelet morphology finding [Identifier] in BloodOrdered By: Sharan Ayoub on 10-26-2023 Platelet morphology finding Nom (Bld) Normal Normal [facility] Platelets [#/volume] in Bloo d by Automated countOrdered By: Sharan Ayoub on 10-26-2023 Platelets (Bld) [#/Vol] 127 10*3/uL Low 150-450 [facility] Comment on above: Performed By: #### C MP, CBC, TACROLIMUS. #### [place] [address] [place] Potassium [Moles/volume] in Serum or PlasmaOrdered By: Sharan Ayoub on 10-26-2023 Potassium [Moles/Vol] 4.1 mmol/L Normal 3.5-5.1 [facility] Comment on above: Performed By: #### C MP, CBC, TACROLIMUS. #### [facility] [address] [place] [address] [place] Protein [Mass/volume] in Ser um or PlasmaOrdered By: Sharan Ayoub on 10-26-2023 Protein [Mass/Vol] 7.5 g/dL Normal 6.4-8.9 [facility] Comment on above: Performed By: #### C MP, CBC, TACROLIMUS. #### [address] RBC morphologyOrdered By: Kanu Ayoub on 10-26-2023 RBC morphology finding Nom (Bld) Normal Normal Normal [facility] Comment on above: Performed By: #### C MP, CBC, TACROLIMUS. #### [address] Serum globulin measurement b y calculation (mass/volume)Ordered By: Sharan Ayoub on 10-26-2023 Globulin (S) [Mass/Vol] 3.8 g/dL Normal [facility] Comment on above: Performed By: #### C MP, CBC, TACROLIMUS. #### [address] Serum or plasma albumin/glob ulin mass ratioOrdered By: Sharan Ayoub on 10-26-2023 Albumin/Globulin [Mass ratio] 1.0 {ratio} [facility] Comment on above: Performed By: #### C MP, CBC, TACROLIMUS. #### [address] Serum or plasma anion gap de terminationOrdered By: Sharan Ayoub on 10-26-2023 Anion gap [Moles/Vol] 9.6 mmol/L Normal 6.0-15.0 [facility] Comment on above: Performed By: #### C MP, CBC, TACROLIMUS. #### [address] Sodium [Moles/volume] in Ser um or PlasmaOrdered By: Sharan Ayoub on 10-26-2023 Sodium [Moles/Vol] 136 mmol/L Normal 136-145 [facility] Comment on above: Performed By: #### C MP, CBC, TACROLIMUS. #### [address] Tacrolimuson 10-26-2023 Tacrolimus (Bld) [Mass/Vol] 12.0 ng/mL Normal <=15.0 [facility] Comment on above: Order Comment: NOTE: Result was obtained using a chemiluminescent microparticle immunoassay (CMIA) on the Stem Roller Or Crusher Operator i system. Optimal therapeutic ranges for immunosuppressant drugs depend upon an individual patient's current clinical state, type of organ transplant, time post-transplant, co-administration of other immunosuppressants, and other clinical factors. The results of this test should be correlated with additional clinical and laboratory data before changes in treatment regimens are made. Performed By: #### 1 1253-2 #### NORMA Cherry ([id number]) [facility] ([facility]) [id number] [place] [address] Tacrolimus (Transplant) No C hgon 10-26-2023 Tacrolimus (Transplant) No Chg Sent to Ref Lab Normal [facility] Comment on above: Result Comment: PERF ORMED BY: [place] [address] PATHOLOGIST VICTORIAN LITERATURE PROFESSOR MISAEL FOX M.D. Performed By: #### C MP, CBC, TACROLIMUS. #### [address] Tacrolimus [Mass/volume] in BloodOrdered By: Sharan Ayoub on 10-26-2023 Tacrolimus (Bld) [Mass/Vol] Sent to ref lab [facility] Urea nitrogen [Mass/volume] in Serum or PlasmaOrdered By: Sharan Ayoub on 10-26-2023 Urea nitrogen [Mass/Vol] 16 mg/dL Normal 04-25 [facility] Comment on above: Performed By: #### C MP, CBC, TACROLIMUS. #### [address] Alanine aminotransferase [En zymatic activity/volume] in Serum or PlasmaOrdered By: Sharan Ayoub on 10-03-2023 ALT [Catalytic activity/Vol] 77 U/L High [facility] Comment on above: Performed By: #### T ACROLIMUS., CMP, CBC #### [place] [address] [place] Albumin [Mass/volume] in Ser um or Plasma by Bromocresol green (BCG) dye binding methoOrdered By: Sharan Ayoub on 10-03-2023 Albumin BCG dye [Mass/Vol] 3.4 g/dL 3.5-5.7 [facility] Alkaline phosphatase [Enzyma tic activity/volume] in Serum or PlasmaOrdered By: Sharan Ayoub on 10-03-2023 ALP [Catalytic activity/Vol] 184 U/L High 34-104 [facility] Comment on above: Result Comment: PERF ORMED BY: [place] [address] PATHOLOGIST VICTORIAN LITERATURE PROFESSOR MISAEL FOX M.D. Performed By: #### T ACROLIMUS., CMP, CBC #### [facility] [address] [place] [address] Aspartate aminotransferase [ Enzymatic activity/volume] in Serum or PlasmaOrdered By: Sharan Ayoub on 10-03-2023 AST [Catalytic activity/Vol] 74 U/L High 13-39 [facility] Comment on above: Performed By: #### T ACROLIMUS., CMP, CBC #### [facility] [address] [place] [address] Automated basophil %Ordered By: Sharan Ayoub on 10-03-2023 Basophils/100 WBC (Bld) 0.9 % Normal . [facility] Comment on above: Performed By: #### T ACROLIMUS., CMP, CBC #### [address] Automated basophil countOrde red By: Sharan Ayoub on 10-03-2023 Basophils (Bld) [#/Vol] 0.0 10*3/uL Normal 0.0-0.2 [facility] Comment on above: Result Comment: PERF ORMED BY: [place] [address] PATHOLOGIST VICTORIAN LITERATURE PROFESSOR MISAEL FOX M.D. Performed By: #### T ACROLIMUS., CMP, CBC #### [facility] [address] [place] [address] Automated blood monocyte cou ntOrdered By: Sharan Ayoub on 10-03-2023 Monocytes (Bld) [#/Vol] 0.5 10*3/uL Normal 0.0-0.8 [facility] Comment on above: Performed By: #### T ACROLIMUS., CMP, CBC #### [address] Automated eosinophil %Ordere d By: Sharan Ayoub on 10-03-2023 Eosinophils/100 WBC (Bld) 2.1 % Normal . [facility] Comment on above: Performed By: #### T ACROLIMUS., CMP, CBC #### [address] Automated eosinophil countOr dered By: Sharan Ayoub on 10-03-2023 Eosinophils (Bld) [#/Vol] 0.1 10*3/uL Normal 0.0-0.45 [facility] Comment on above: Performed By: #### T ACROLIMUS., CMP, CBC #### [address] Automated monocyte %Ordered By: Sharan Ayoub on 10-03-2023 Monocytes/100 WBC (Bld) 9.3 % Normal . [facility] Comment on above: Performed By: #### T ACROLIMUS., CMP, CBC #### [address] Automated neutrophil %Ordere d By: Sharan Ayoub on 10-03-2023 Neutrophils/100 WBC (Bld) 57.0 % Normal . [facility] Comment on above: Performed By: #### T ACROLIMUS., CMP, CBC #### [address] Bilirubin.total [Mass/volume ] in Serum or PlasmaOrdered By: Sharan Ayoub on 10-03-2023 Bilirubin [Mass/Vol] 2.0 mg/dL High 0.3-1.0 [facility] Comment on above: Samples from patient s who have taken Naproxen have shown spurious elevation in Total Bilirubin levels. A metabolite of Naproxen, O-desmethylnaproxen, has been shown to interfere with the Jenlatriciaik-Uriel method for measuring Total Bilirubin. Result Comment[facility] who have taken Nap[facility]en have shown spurious elevation in Total Bilirubin levels. A metabolite of Naproxen, O-desmethylnaproxen, has been shown to interfere with the Jendrcarmitaik-Uriel method for measuring Total Bilirubin. Performed By: #### T ACROLIMUS., CMP, CBC #### [address] Calcium [Mass/volume] in Ser um or PlasmaOrdered By: Sharan Ayoub on 10-03-2023 Calcium [Mass/Vol] 9.2 mg/dL Normal 8.6-10.3 [facility] Comment on above: Performed By: #### T ACROLIMUS., CMP, CBC #### [address] Carbon dioxide, total [Moles /volume] in Serum or PlasmaOrdered By: Sharan Ayobu on 10-03-2023 CO2 [Moles/Vol] 33.5 mmol/L High 21.0-31.0 [facility] Comment on above: Performed By: #### T ACROLIMUS., CMP, CBC #### [address] Chloride [Moles/volume] in S kasi or PlasmaOrdered By: Sharan Ayoub on 10-03-2023 Chloride [Moles/Vol] 101 mmol/L Normal 98-107 [facility] Comment on above: Performed By: #### T ACROLIMUS., CMP, CBC #### [address] Complete Blood Count Auto Di ffon 10-03-2023 Mean Corpuscular HGB Conc 33.4 g/dL Normal 32.5-35.6 [facility] Comment on above: Performed By: #### T ACROLIMUS., CMP, CBC #### [address] NRBC% 0.1 /100{WBC} Normal 0-0.5 [facility] Comment on above: Performed By: #### T ACROLIMUS., CMP, CBC #### [address] Comprehensive Metabolic Pane sarah 10-03-2023 Albumin [Mass/Vol] 3.4 g/dL Low 3.5-5.7 [facility] Comment on above: Performed By: #### T ACROLIMUS., CMP, CBC #### [address] GFR/1.73 sq M.predicted MDRD (S/P/Bld) [Vol rate/Area] mL/min/{1.73_m2} Normal [facility] Comment on above: Performed By: #### T ACROLIMUS., CMP, CBC #### [address] Creatinine [Mass/volume] in Serum or PlasmaOrdered By: Sharan Ayoub on 10-03-2023 Creatinine [Mass/Vol] 1.05 mg/dL Normal 0.70-1.30 [facility] Comment on above: Performed By: #### T ACROLIMUS., CMP, CBC #### [address] Isaac Fair virus DNA [#/vo lume] (viral load) in Serum or Plasma by LÁZARO with probe dOrdered By: Leighton Reilly on 10-03-2023 EBV DNA LÁZARO+probe [#/Vol] Negative Negative [facility] Comment on above: No EBV DNA detected. The linear range of this assay is 35 - 100,000,000 IU/mLPerformed at: [employer] [address] [id number] Director: Thierry Currie MD, Phone: [phone] Isaac-Fair Virus Qnt PCRon 10-03-2023 Esptein-Fair DNA Qnt, PCR Negative Normal Negative [facility] Comment on above: Result Comment: No E BV DNA detected. The linear range of this assay is 35 - 100,000,000 IU/mL Performed at: [facility] [id number] [employer] Machine Set Up Operator Tool: Thierry Currie MD, Phone: [phone] PERFORMED BY: [place] [address] PATHOLOGIST VICTORIAN LITERATURE PROFESSOR MISAEL FOX M.D. Performed By: #### C MP, CBC, TACROLIMUS. #### [facility] [address] Erythrocyte distribution wid th [Ratio] by Automated countOrdered By: Sharan Ayoub on 10-03-2023 Erythrocyte distribution width (RBC) [Ratio] 13.9 % Normal 12.0-14.8 [facility] Comment on above: Performed By: #### T ACROLIMUS., CMP, CBC #### [facility] [address] Erythrocytes [#/volume] in B lood by Automated countOrdered By: Sharan Ayoub on 10-03-2023 RBC (Bld) [#/Vol] 4.21 10*6/uL Normal 3.90-5.60 [facility] Comment on above: Performed By: #### T ACROLIMUS., CMP, CBC #### [facility] [address] Glucose [Mass/volume] in Ser um or PlasmaOrdered By: Sharan Ayoub on 10-03-2023 Glucose [Mass/Vol] 301 mg/dL High 70-100 [facility] Comment on above: ADA recommended refe rence rangeRandom Glucose Reference Range is dependent on time and content of last meal. Glucose of more than 200 mg/dL in a nonstressed, ambulatory subject supports the diagnosis of Diabetes Mellitus. Result Comment: [place] [facility] Glucose Reference Range is dependent on time and content of last meal. Glucose of more than 200 mg/dL in a nonstressed, ambulatory subject supports the diagnosis of Diabetes Mellitus. ADA recommended reference range Performed By: #### T ACROLIMUS., CMP, CBC #### [facility] [address] Hematocrit [Volume Fraction] of Blood by Automated countOrdered By: Sharan Ayoub on 10-03-2023 Hematocrit (Bld) [Volume fraction] 39.9 % Normal 38.8-50.0 [facility] Comment on above: Performed By: #### T ACROLIMUS., CMP, CBC #### [facility] [address] Hemoglobin [Mass/volume] in BloodOrdered By: Sharan Ayoub on 10-03-2023 Hemoglobin (Bld) [Mass/Vol] 13.3 g/dL Normal 13.0-17.0 [facility] Comment on above: Performed By: #### T ACROLIMUS., CMP, CBC #### [facility] [address] [place] [address] Leukocytes [#/volume] correc roderick for nucleated erythrocytes in Blood by Automated counOrdered By: Sharan Ayoub on 10-03-2023 WBC corrected for nucl RBC Auto (Bld) [#/Vol] 4.9 10*3/uL 4.1-10.5 [facility] Leukocytes [#/volume] in Blo od by Automated countOrdered By: Sharan Ayoub on 10-03-2023 WBC (Bld) [#/Vol] 4.9 10*3/uL Normal 4.1-10.5 [facility] Comment on above: Performed By: #### T ACROLIMUS., CMP, CBC #### [facility] [address] [place] [address] [place] Lymphocytes [#/volume] in Bl ood by Automated countOrdered By: Sharan Ayoub on 10-03-2023 Lymphocytes (Bld) [#/Vol] 1.5 10*3/uL Normal 1.00-4.8 [facility] Comment on above: Performed By: #### T ACROLIMUS., CMP, CBC #### [facility] [address] [place] [address] [place] Lymphocytes/100 leukocytes i n Blood by Automated countOrdered By: Sharan Ayoub on 10-03-2023 Lymphocytes/100 WBC (Bld) 30.7 % Normal . [facility] Comment on above: Performed By: #### T ACROLIMUS., CMP, CBC #### [facility] [address] [place] [address] [place] MCH [Entitic mass] by Automa roderick countOrdered By: Sharan Ayoub on 10-03-2023 MCH (RBC) [Entitic mass] 31.6 pg Normal 27.5-35.2 [facility] Comment on above: Performed By: #### T ACROLIMUS., CMP, CBC #### [facility] [address] MCHC Auto (RBC) [Mass/Vol]Or dered By: Sharan Ayoub on 10-03-2023 MCHC (RBC) [Mass/Vol] 33.4 g/dL 32.5-35.6 [facility] MCV [Entitic volume] by Auto mated countOrdered By: Sharan Ayoub on 10-03-2023 MCV (RBC) [Entitic vol] 94.7 fL Normal 83.5-101 [facility] Comment on above: Performed By: #### T ACROLIMUS., CMP, CBC #### [facility] [address] [place] [address] Neutrophils [#/volume] in Bl ood by Automated countOrdered By: Sharan Ayoub on 10-03-2023 Neutrophils (Bld) [#/Vol] 2.8 10*3/uL Normal 1.8-7.7 [facility] Comment on above: Performed By: #### T ACROLIMUS., CMP, CBC #### [facility] [address] [place] [address] No Panel InformationOrdered By: Leighton Reilly on 10-03-2023 Isaac-Fair Quant PCR Plasma log10 N/A [facility] No Panel InformationOrdered By: Sharan Ayoub on 10-03-2023 Estimated GFR (CKD-EPI) > 60.0 mL/Min [facility] Creatinine Clearance (Chem N/A [facility] Nucleated erythrocytes [Pres ence] in Blood by Automated countOrdered By: Sharan Ayoub on 10-03-2023 Nucleated RBC Auto Ql (Bld) 0.1 /100{WBC} 0-0.5 [facility] Platelet mean volume [Entiti c volume] in Blood by Automated countOrdered By: Sharan Ayoub on 10-03-2023 Platelet mean volume (Bld) [Entitic vol] 11.5 fL High 6.6-10.1 [facility] Comment on above: Performed By: #### T ACROLIMUS., CMP, CBC #### [facility] [address] Platelets [#/volume] in Bloo d by Automated countOrdered By: Sharan Ayoub on 10-03-2023 Platelets (Bld) [#/Vol] 122 10*3/uL Low 150-450 [facility] Comment on above: Performed By: #### T ACROLIMUS., CMP, CBC #### [address] Potassium [Moles/volume] in Serum or PlasmaOrdered By: Sharan Ayoub on 10-03-2023 Potassium [Moles/Vol] 4.1 mmol/L Normal 3.5-5.1 [facility] Comment on above: Performed By: #### T ACROLIMUS., CMP, CBC #### [address] Protein [Mass/volume] in Ser um or PlasmaOrdered By: Sharan Ayoub on 10-03-2023 Protein [Mass/Vol] 6.9 g/dL Normal 6.4-8.9 [facility] Comment on above: Performed By: #### T ACROLIMUS., CMP, CBC #### [address] Serum globulin measurement b y calculation (mass/volume)Ordered By: Sharan Ayoub on 10-03-2023 Globulin (S) [Mass/Vol] 3.5 g/dL [facility] Comment on above: Performed By: #### T ACROLIMUS., CMP, CBC #### [facility] [address] [place] [address] Serum or plasma albumin/glob ulin mass ratioOrdered By: Sharan Ayoub on 10-03-2023 Albumin/Globulin [Mass ratio] 1.0 {ratio} [facility] Comment on above: Performed By: #### T ACROLIMUS., CMP, CBC #### [facility] [address] [place] [address] Serum or plasma anion gap de terminationOrdered By: Sharan Ayoub on 10-03-2023 Anion gap [Moles/Vol] 8.6 mmol/L Normal 6.0-15.0 [facility] Comment on above: Performed By: #### T ACROLIMUS., CMP, CBC #### [facility] [address] Sodium [Moles/volume] in Ser um or PlasmaOrdered By: Sharan Ayoub on 10-03-2023 Sodium [Moles/Vol] 139 mmol/L Normal 136-145 [facility] Comment on above: Performed By: #### T ACROLIMUS., CMP, CBC #### [facility] [facility] [address] Tacrolimuson 10-03-2023 Tacrolimus (Bld) [Mass/Vol] 9.5 ng/mL Normal <=15.0 [facility] Comment on above: Order Comment: NOTE: Result was obtained using a chemiluminescent microparticle immunoassay (CMIA) on the Stem Roller Or Crusher Operator i system. Optimal therapeutic ranges for immunosuppressant drugs depend upon an individual patient's current clinical state, type of organ transplant, time post-transplant, co-administration of other immunosuppressants, and other clinical factors. The results of this test should be correlated with additional clinical and laboratory data before changes in treatment regimens are made. Performed By: #### 1 1253-2 #### NORMA Cherry ([id number]) [facility] ([facility]) [id number] [place] [address] Tacrolimus (Transplant) No C hgon 10-03-2023 Tacrolimus (Transplant) No Chg Sent to Ref Lab Normal [facility] Comment on above: Result Comment: PERF ORMED BY: [facility] [address] [place] [address] PATHOLOGIST VICTORIAN LITERATURE PROFESSOR MISAEL FOX M.D. Performed By: #### T ACROLIMUS., CMP, CBC #### [address] Tacrolimus [Mass/volume] in BloodOrdered By: Sharan Ayoub on 10-03-2023 Tacrolimus (Bld) [Mass/Vol] Sent to ref lab [facility] Urea nitrogen [Mass/volume] in Serum or PlasmaOrdered By: Sharan Ayoub on 10-03-2023 Urea nitrogen [Mass/Vol] 17 mg/dL Normal 7-25 [facility] Comment on above: Performed By: #### T ACROLIMUS., CMP, CBC #### [address] Alanine aminotransferase [En zymatic activity/volume] in Serum or PlasmaOrdered By: Sharan Ayoub on 09-05-2023 ALT [Catalytic activity/Vol] 60 U/L High 7-52 [facility] Comment on above: Performed By: #### C MP, CBC, TACROLIMUS. #### [address] Albumin [Mass/volume] in Ser um or Plasma by Bromocresol green (BCG) dye binding methoOrdered By: Sharan Ayobu on 09-05-2023 Albumin BCG dye [Mass/Vol] 3.6 g/dL 3.5-5.7 [facility] Alkaline phosphatase [Enzyma tic activity/volume] in Serum or PlasmaOrdered By: Sharan Ayoub on 09-05-2023 ALP [Catalytic activity/Vol] 172 U/L High 34-104 [facility] Comment on above: Result Comment: PERF ORMED BY: [place] [address] PATHOLOGIST VICTORIAN LITERATURE PROFESSOR MISAEL FOX M.D. Performed By: #### C MP, CBC, TACROLIMUS. #### [address] Aspartate aminotransferase [ Enzymatic activity/volume] in Serum or PlasmaOrdered By: Sharan Ayoub on 09-05-2023 AST [Catalytic activity/Vol] 59 U/L High 13-39 [facility] Comment on above: Performed By: #### C MP, CBC, TACROLIMUS. #### [address] Automated basophil %Ordered By: Sharan Ayoub on 09-05-2023 Basophils/100 WBC (Bld) 1.1 % Normal . [facility] Comment on above: Performed By: #### C MP, CBC, TACROLIMUS. #### [address] Automated basophil countOrde red By: Sharan Ayoub on 09-05-2023 Basophils (Bld) [#/Vol] 0.1 10*3/uL Normal 0.0-0.2 [facility] Comment on above: Result Comment: PERF ORMED BY: [place] [address] PATHOLOGIST VICTORIAN LITERATURE PROFESSOR MISAEL FOX M.D. Performed By: #### C MP, CBC, TACROLIMUS. #### [address] Automated blood monocyte cou ntOrdered By: Sharan Ayoub on 09-05-2023 Monocytes (Bld) [#/Vol] 0.4 10*3/uL Normal 0.0-0.8 [facility] Comment on above: Performed By: #### C MP, CBC, TACROLIMUS. #### [address] Automated eosinophil %Ordere d By: Sharan Ayoub on 09-05-2023 Eosinophils/100 WBC (Bld) 3.0 % Normal . [facility] Comment on above: Performed By: #### C MP, CBC, TACROLIMUS. #### [address] Automated eosinophil countOr dered By: Sharan Ayoub on 09-05-2023 Eosinophils (Bld) [#/Vol] 0.2 10*3/uL Normal 0.0-0.45 [facility] Comment on above: Performed By: #### C MP, CBC, TACROLIMUS. #### [address] Automated monocyte %Ordered By: Sharan Ayoub on 09-05-2023 Monocytes/100 WBC (Bld) 7.3 % Normal . [facility] Comment on above: Performed By: #### C MP, CBC, TACROLIMUS. #### [place] [address] [place] Automated neutrophil %Ordere d By: Sharan Ayoub on 09-05-2023 Neutrophils/100 WBC (Bld) 48.6 % Normal . [facility] Comment on above: Performed By: #### C MP, CBC, TACROLIMUS. #### [facility] [address] Bilirubin.total [Mass/volume ] in Serum or PlasmaOrdered By: Sharan Ayoub on 09-05-2023 Bilirubin [Mass/Vol] 1.4 mg/dL High 0.3-1.0 [facility] Comment on above: Samples from patient s who have taken Naproxen have shown spurious elevation in Total Bilirubin levels. A metabolite of Naproxen, O-desmethylnaproxen, has been shown to interfere with the Jendrassik-Grof method for measuring Total Bilirubin. Result Comment: Samp les from patients who have taken Naproxen have shown spurious elevation in Total Bilirubin levels. A metabolite of Naproxen, O-desmethylnaproxen, has been shown to interfere with the Jendrassik-Grof method for measuring Total Bilirubin. Performed By: #### C MP, CBC, TACROLIMUS. #### [facility] [address] Calcium [Mass/volume] in Ser um or PlasmaOrdered By: Sharan Ayoub on 09-05-2023 Calcium [Mass/Vol] 9.2 mg/dL Normal 8.6-10.3 [facility] Comment on above: Performed By: #### C MP, CBC, TACROLIMUS. #### [facility] [address] [place] [address] [place] Carbon dioxide, total [Moles /volume] in Serum or PlasmaOrdered By: Sharan Ayoub on 09-05-2023 CO2 [Moles/Vol] 32.4 mmol/L High 21.0-31.0 [facility] Comment on above: Performed By: #### C MP, CBC, TACROLIMUS. #### [facility] [address] [place] [address] [place] Chloride [Moles/volume] in S kasi or PlasmaOrdered By: Sharan Ayoub on 09-05-2023 Chloride [Moles/Vol] 104 mmol/L Normal 98-107 [facility] Comment on above: Performed By: #### C MP, CBC, TACROLIMUS. #### [address] Complete Blood Count Auto Di ffon 09-05-2023 Mean Corpuscular HGB Conc 33.7 g/dL Normal 32.5-35.6 [facility] Comment on above: Performed By: #### C MP, CBC, TACROLIMUS. #### [address] NRBC% 0.1 /100{WBC} Normal 0-0.5 [facility] Comment on above: Performed By: #### C MP, CBC, TACROLIMUS. #### [address] Comprehensive Metabolic Pane sarah 09-05-2023 Albumin [Mass/Vol] 3.6 g/dL Normal 3.5-5.7 [facility] Comment on above: Performed By: #### C MP, CBC, TACROLIMUS. #### [address] GFR/1.73 sq M.predicted MDRD (S/P/Bld) [Vol rate/Area] mL/min/{1.73_m2} Normal [facility] Comment on above: Performed By: #### C MP, CBC, TACROLIMUS. #### [address] Creatinine [Mass/volume] in Serum or PlasmaOrdered By: Sharan Ayoub on 09-05-2023 Creatinine [Mass/Vol] 1.00 mg/dL Normal 0.70-1.30 [facility] Comment on above: Performed By: #### C MP, CBC, TACROLIMUS. #### [address] Erythrocyte distribution wid th [Ratio] by Automated countOrdered By: Sharan Ayoub on 09-05-2023 Erythrocyte distribution width (RBC) [Ratio] 13.7 % Normal 12.0-14.8 [facility] Comment on above: Performed By: #### C MP, CBC, TACROLIMUS. #### [facility] [address] Erythrocytes [#/volume] in B lood by Automated countOrdered By: Sharan Ayoub on 09-05-2023 RBC (Bld) [#/Vol] 4.30 10*6/uL Normal 3.90-5.60 [facility] Comment on above: Performed By: #### C MP, CBC, TACROLIMUS. #### [facility] [address] Glucose [Mass/volume] in Ser um or PlasmaOrdered By: Sharan Ayoub on 09-05-2023 Glucose [Mass/Vol] 206 mg/dL High 70-100 [facility] Comment on above: ADA recommended refe rence rangeRandom Glucose Reference Range is dependent on time and content of last meal. Glucose of more than 200 mg/dL in a nonstressed, ambulatory subject supports the diagnosis of Diabetes Mellitus. Result Comment: [place] Glucose Reference Range is dependent on time and content of last meal. Glucose of more than 200 mg/dL in a nonstressed, ambulatory subject supports the diagnosis of Diabetes Mellitus. ADA recommended reference range Performed By: #### C MP, CBC, TACROLIMUS. #### [facility] [address] Hematocrit [Volume Fraction] of Blood by Automated countOrdered By: Sharan Ayoub on 09-05-2023 Hematocrit (Bld) [Volume fraction] 40.5 % Normal 38.8-50.0 [facility] Comment on above: Performed By: #### C MP, CBC, TACROLIMUS. #### [facility] [address] Hemoglobin [Mass/volume] in BloodOrdered By: Sharan Ayoub on 09-05-2023 Hemoglobin (Bld) [Mass/Vol] 13.7 g/dL Normal 13.0-17.0 [facility] Comment on above: Performed By: #### C MP, CBC, TACROLIMUS. #### [facility] [address] [place] [address] Leukocytes [#/volume] correc roderick for nucleated erythrocytes in Blood by Automated counOrdered By: Sharan Ayoub on 09-05-2023 WBC corrected for nucl RBC Auto (Bld) [#/Vol] 5.2 10*3/uL 4.1-10.5 [facility] Leukocytes [#/volume] in Blo od by Automated countOrdered By: Sharan Ayoub on 09-05-2023 WBC (Bld) [#/Vol] 5.2 10*3/uL Normal 4.1-10.5 [facility] Comment on above: Performed By: #### C MP, CBC, TACROLIMUS. #### [facility] [address] [place] [address] Lymphocytes [#/volume] in Bl ood by Automated countOrdered By: Sharan Ayoub on 09-05-2023 Lymphocytes (Bld) [#/Vol] 2.1 10*3/uL Normal 1.00-4.8 [facility] Comment on above: Performed By: #### C MP, CBC, TACROLIMUS. #### [facility] [address] [place] [address] Lymphocytes/100 leukocytes i n Blood by Automated countOrdered By: Sharan Ayoub on 09-05-2023 Lymphocytes/100 WBC (Bld) 40.0 % Normal . [facility] Comment on above: Performed By: #### C MP, CBC, TACROLIMUS. #### [facility] [address] [place] [address] MCH [Entitic mass] by Automa roderick countOrdered By: Sharan Ayoub on 09-05-2023 MCH (RBC) [Entitic mass] 31.8 pg Normal 27.5-35.2 [facility] Comment on above: Performed By: #### C MP, CBC, TACROLIMUS. #### [facility] [address] [place] [address] MCHC Auto (RBC) [Mass/Vol]Or dered By: Sharan Ayoub on 09-05-2023 MCHC (RBC) [Mass/Vol] 33.7 g/dL 32.5-35.6 [facility] MCV [Entitic volume] by Auto mated countOrdered By: Sharan Ayoub on 09-05-2023 MCV (RBC) [Entitic vol] 94.2 fL Normal 83.5-101 [facility] Comment on above: Performed By: #### C MP, CBC, TACROLIMUS. #### [facility] [address] [place] [address] Neutrophils [#/volume] in Bl ood by Automated countOrdered By: Sharan Ayoub on 09-05-2023 Neutrophils (Bld) [#/Vol] 2.5 10*3/uL Normal 1.8-7.7 [facility] Comment on above: Performed By: #### C MP, CBC, TACROLIMUS. #### [address] No Panel InformationOrdered By: Sharan Ayoub on 09-05-2023 Estimated GFR (CKD-EPI) > 60.0 mL/Min [facility] Creatinine Clearance (Chem N/A [facility] Nucleated erythrocytes [Pres ence] in Blood by Automated countOrdered By: Sharan Ayoub on 09-05-2023 Nucleated RBC Auto Ql (Bld) 0.1 /100{WBC} 0-0.5 [facility] Platelet mean volume [Entiti c volume] in Blood by Automated countOrdered By: Sharan Ayoub on 09-05-2023 Platelet mean volume (Bld) [Entitic vol] 10.3 fL High 6.6-10.1 [facility] Comment on above: Performed By: #### C MP, CBC, TACROLIMUS. #### [address] Platelets [#/volume] in Bloo d by Automated countOrdered By: Sharan Ayoub on 09-05-2023 Platelets (Bld) [#/Vol] 147 10*3/uL Low 150-450 [facility] Comment on above: Performed By: #### C MP, CBC, TACROLIMUS. #### [facility] [address] [place] [address] Potassium [Moles/volume] in Serum or PlasmaOrdered By: Sharan Ayoub on 09-05-2023 Potassium [Moles/Vol] 4.0 mmol/L Normal 3.5-5.1 [facility] Comment on above: Performed By: #### C MP, CBC, TACROLIMUS. #### [address] Protein [Mass/volume] in Ser um or PlasmaOrdered By: Sharan Ayoub on 09-05-2023 Protein [Mass/Vol] 7.2 g/dL Normal 6.4-8.9 [facility] Comment on above: Performed By: #### C MP, CBC, TACROLIMUS. #### [address] Serum globulin measurement b y calculation (mass/volume)Ordered By: Sharan Ayoub on 09-05-2023 Globulin (S) [Mass/Vol] 3.6 g/dL [facility] Comment on above: Performed By: #### C MP, CBC, TACROLIMUS. #### [address] Serum or plasma albumin/glob ulin mass ratioOrdered By: Sharan Ayoub on 09-05-2023 Albumin/Globulin [Mass ratio] 1.0 {ratio} [facility] Comment on above: Performed By: #### C MP, CBC, TACROLIMUS. #### [address] Serum or plasma anion gap de terminationOrdered By: Sharan Ayoub on 09-05-2023 Anion gap [Moles/Vol] 7.6 mmol/L Normal 6.0-15.0 [facility] Comment on above: Performed By: #### C MP, CBC, TACROLIMUS. #### [address] Sodium [Moles/volume] in Ser um or PlasmaOrdered By: Sharna Ayoub on 09-05-2023 Sodium [Moles/Vol] 140 mmol/L Normal 136-145 [facility] Comment on above: Performed By: #### C MP, CBC, TACROLIMUS. #### [facility] [address] [place] [address] Tacrolimuson 09-05-2023 Tacrolimus (Bld) [Mass/Vol] 10.5 ng/mL Normal <=15.0 [facility] Comment on above: Order Comment: NOTE: Result was obtained using a chemiluminescent microparticle immunoassay (CMIA) on the Stem Roller Or Crusher Operator i system. Optimal therapeutic ranges for immunosuppressant drugs depend upon an individual patient's current clinical state, type of organ transplant, time post-transplant, co-administration of other immunosuppressants, and other clinical factors. The results of this test should be correlated with additional clinical and laboratory data before changes in treatment regimens are made. Performed By: #### 1 1253-2 #### NORMA Cherry ([id number]) [facility] ([facility]) [id number] [place] [address] Tacrolimus (Transplant) No C hgon 09-05-2023 Tacrolimus (Transplant) No Chg Sent to Ref Lab Normal [facility] Comment on above: Result Comment: PERF ORMED BY: [place] [address] PATHOLOGIST VICTORIAN LITERATURE PROFESSOR MISAEL FOX M.D. Performed By: #### T ACROLIMUS., CMP, CBC #### [address] Tacrolimus [Mass/volume] in BloodOrdered By: Sharan Ayoub on 09-05-2023 Tacrolimus (Bld) [Mass/Vol] Sent to ref lab [facility] Urea nitrogen [Mass/volume] in Serum or PlasmaOrdered By: Sharan Ayoub on 09-05-2023 Urea nitrogen [Mass/Vol] 15 mg/dL Normal 7-25 [facility] Comment on above: Performed By: #### C MP, CBC, TACROLIMUS. #### [address] Whole blood quantitative Eps tein-Fair virus (EBV) DNA assay by PCROrdered By: Leighton Reilly on 09-05-2023 EBV DNA LÁZARO+probe (Bld) [#/Vol] See comment [facility] Comment on above: See report. Scanned copy available in EMR. Alanine aminotransferase [En zymatic activity/volume] in Serum or PlasmaOrdered By: Sharan Ayoub on 08-16-2023 ALT [Catalytic activity/Vol] 63 U/L High 7-52 [facility] Comment on above: Performed By: #### T ACROLIMUS., CMP, CBC #### [facility] [address] [place] [address] Albumin [Mass/volume] in Ser um or Plasma by Bromocresol green (BCG) dye binding methoOrdered By: Sharan Ayoub on 08-16-2023 Albumin BCG dye [Mass/Vol] 3.8 g/dL 3.5-5.7 [facility] Alkaline phosphatase [Enzyma tic activity/volume] in Serum or PlasmaOrdered By: Sharan Ayoub on 08-16-2023 ALP [Catalytic activity/Vol] 178 U/L High 34-104 [facility] Comment on above: Result Comment: PERF ORMED BY: [place] [address] PATHOLOGIST VICTORIAN LITERATURE PROFESSOR MISAEL FOX M.D. Performed By: #### T ACROLIMUS., CMP, CBC #### [facility] [address] [place] [address] Aspartate aminotransferase [ Enzymatic activity/volume] in Serum or PlasmaOrdered By: Sharan Ayoub on 08-16-2023 AST [Catalytic activity/Vol] 62 U/L High 13-39 [facility] Comment on above: Performed By: #### T ACROLIMUS., CMP, CBC #### [facility] [address] [place] [address] Automated basophil %Ordered By: Sharan Ayoub on 08-16-2023 Basophils/100 WBC (Bld) 0.8 % Normal . [facility] Comment on above: Performed By: #### T ACROLIMUS., CMP, CBC #### [facility] [address] [place] [address] Automated basophil countOrde red By: Sharan Ayoub on 08-16-2023 Basophils (Bld) [#/Vol] 0.0 10*3/uL Normal 0.0-0.2 [facility] Comment on above: Result Comment: PERF ORMED BY: [place] [address] PATHOLOGIST VICTORIAN LITERATURE PROFESSOR MISAEL FOX M.D. Performed By: #### T ACROLIMUS., CMP, CBC #### [address] Automated blood monocyte cou ntOrdered By: Sharan Ayoub on 08-16-2023 Monocytes (Bld) [#/Vol] 0.5 10*3/uL Normal 0.0-0.8 [facility] Comment on above: Performed By: #### T ACROLIMUS., CMP, CBC #### [address] Automated eosinophil %Ordere d By: Sharan Ayoub on 08-16-2023 Eosinophils/100 WBC (Bld) 2.0 % Normal . [facility] Comment on above: Performed By: #### T ACROLIMUS., CMP, CBC #### [address] Automated eosinophil countOr dered By: Sharan Ayoub on 08-16-2023 Eosinophils (Bld) [#/Vol] 0.1 10*3/uL Normal 0.0-0.45 [facility] Comment on above: Performed By: #### T ACROLIMUS., CMP, CBC #### [address] Automated monocyte %Ordered By: Sharan Ayoub on 08-16-2023 Monocytes/100 WBC (Bld) 10.1 % Normal . [facility] Comment on above: Performed By: #### T ACROLIMUS., CMP, CBC #### [address] Automated neutrophil %Ordere d By: Sharan Ayoub on 08-16-2023 Neutrophils/100 WBC (Bld) 49.9 % Normal . [facility] Comment on above: Performed By: #### T ACROLIMUS., CMP, CBC #### [facility] [address] [place] [address] [place] Bilirubin.total [Mass/volume ] in Serum or PlasmaOrdered By: Sharan Ayoub on 08-16-2023 Bilirubin [Mass/Vol] 1.7 mg/dL High 0.3-1.0 [facility] Comment on above: Samples from patient s who have taken Naproxen have shown spurious elevation in Total Bilirubin levels. A metabolite of Naproxen, O-desmethylnaproxen, has been shown to interfere with the Jendrassik-Grof method for measuring Total Bilirubin. Result Comment: Samp les from patients who have taken Naproxen have shown spurious elevation in Total Bilirubin levels. A metabolite of Naproxen, O-desmethylnaproxen, has been shown to interfere with the Jendrassik-Grof method for measuring Total Bilirubin. Performed By: #### T ACROLIMUS., CMP, CBC #### [facility] [address] [place] [address] [place] Calcium [Mass/volume] in Ser um or PlasmaOrdered By: Sharan Ayoub on 08-16-2023 Calcium [Mass/Vol] 9.4 mg/dL Normal 8.6-10.3 [facility] Comment on above: Performed By: #### T ACROLIMUS., CMP, CBC #### [facility] [address] [place] [address] [place] Carbon dioxide, total [Moles /volume] in Serum or PlasmaOrdered By: Sharan Ayoub on 08-16-2023 CO2 [Moles/Vol] 33.7 mmol/L High 21.0-31.0 [facility] Comment on above: Performed By: #### T ACROLIMUS., CMP, CBC #### [facility] [address] [place] [id number] [place] Chloride [Moles/volume] in S kasi or PlasmaOrdered By: Sharan Ayoub on 08-16-2023 Chloride [Moles/Vol] 104 mmol/L Normal 98-107 [facility] Comment on above: Performed By: #### T ACROLIMUS., CMP, CBC #### [facility] [address] [place] [address] Complete Blood Count Auto Di ffon 08-16-2023 Mean Corpuscular HGB Conc 33.7 g/dL Normal 32.5-35.6 [facility] Comment on above: Performed By: #### T ACROLIMUS., CMP, CBC #### [address] NRBC% 0.1 /100{WBC} Normal 0-0.5 [facility] Comment on above: Performed By: #### T ACROLIMUS., CMP, CBC #### [facility] [address] [place] [address] Comprehensive Metabolic Pane sarah 08-16-2023 Albumin [Mass/Vol] 3.8 g/dL Normal 3.5-5.7 [facility] Comment on above: Performed By: #### T ACROLIMUS., CMP, CBC #### [address] GFR/1.73 sq M.predicted MDRD (S/P/Bld) [Vol rate/Area] mL/min/{1.73_m2} Normal [facility] Comment on above: Performed By: #### T ACROLIMUS., CMP, CBC #### [facility] [address] [place] [address] Creatinine [Mass/volume] in Serum or PlasmaOrdered By: Sharan Ayoub on 08-16-2023 Creatinine [Mass/Vol] 0.96 mg/dL Normal 0.70-1.30 [facility] Comment on above: Performed By: #### T ACROLIMUS., CMP, CBC #### [facility] [address] [place] [address] Erythrocyte distribution wid th [Ratio] by Automated countOrdered By: Sharan Ayoub on 08-16-2023 Erythrocyte distribution width (RBC) [Ratio] 13.8 % Normal 12.0-14.8 [facility] Comment on above: Performed By: #### T ACROLIMUS., CMP, CBC #### [facility] [address] [place] [address] [place] Erythrocytes [#/volume] in B lood by Automated countOrdered By: Sharan Ayoub on 08-16-2023 RBC (Bld) [#/Vol] 4.21 10*6/uL Normal 3.90-5.60 [facility] Comment on above: Performed By: #### T ACROLIMUS., CMP, CBC #### [facility] [address] Glucose [Mass/volume] in Ser um or PlasmaOrdered By: Sharan Ayoub on 08-16-2023 Glucose [Mass/Vol] 91 mg/dL Normal 70-100 [facility] Comment on above: ADA recommended refe rence rangeRandom Glucose Reference Range is dependent on time and content of last meal. Glucose of more than 200 mg/dL in a nonstressed, ambulatory subject supports the diagnosis of Diabetes Mellitus. Result Comment: [place] [facility] Glucose Reference Range is dependent on time and content of last meal. Glucose of more than 200 mg/dL in a nonstressed, ambulatory subject supports the diagnosis of Diabetes Mellitus. ADA recommended reference range Performed By: #### T ACROLIMUS., CMP, CBC #### [facility] [address] [place] [address] [place] Hematocrit [Volume Fraction] of Blood by Automated countOrdered By: Sharan Ayoub on 08-16-2023 Hematocrit (Bld) [Volume fraction] 39.7 % Normal 38.8-50.0 [facility] Comment on above: Performed By: #### T ACROLIMUS., CMP, CBC #### [facility] [address] [place] [address] [place] Hemoglobin [Mass/volume] in BloodOrdered By: Sharan Ayoub on 08-16-2023 Hemoglobin (Bld) [Mass/Vol] 13.4 g/dL Normal 13.0-17.0 [facility] Comment on above: Performed By: #### T ACROLIMUS., CMP, CBC #### [facility] [address] [place] [address] [place] Leukocytes [#/volume] correc roderick for nucleated erythrocytes in Blood by Automated counOrdered By: Sharan Ayoub on 08-16-2023 WBC corrected for nucl RBC Auto (Bld) [#/Vol] 5.2 10*3/uL 4.1-10.5 [facility] Leukocytes [#/volume] in Blo od by Automated countOrdered By: Sharan Ayoub on 08-16-2023 WBC (Bld) [#/Vol] 5.2 10*3/uL Normal 4.1-10.5 [facility] Comment on above: Performed By: #### T ACROLIMUS., CMP, CBC #### [facility] [address] Lymphocytes [#/volume] in Bl ood by Automated countOrdered By: Sharan Ayoub on 08-16-2023 Lymphocytes (Bld) [#/Vol] 1.9 10*3/uL Normal 1.00-4.8 [facility] Comment on above: Performed By: #### T ACROLIMUS., CMP, CBC #### [facility] [address] [place] [address] [place] Lymphocytes/100 leukocytes i n Blood by Automated countOrdered By: Sharan Ayoub on 08-16-2023 Lymphocytes/100 WBC (Bld) 37.2 % Normal . [facility] Comment on above: Performed By: #### T ACROLIMUS., CMP, CBC #### [facility] [address] [place] [address] [place] MCH [Entitic mass] by Automa roderick countOrdered By: Sharan Ayoub on 08-16-2023 MCH (RBC) [Entitic mass] 31.8 pg Normal 27.5-35.2 [facility] Comment on above: Performed By: #### T ACROLIMUS., CMP, CBC #### [facility] [address] MCHC Auto (RBC) [Mass/Vol]Or dered By: Sharan Ayoub on 08-16-2023 MCHC (RBC) [Mass/Vol] 33.7 g/dL 32.5-35.6 [facility] MCV [Entitic volume] by Auto mated countOrdered By: Sharan Ayoub on 08-16-2023 MCV (RBC) [Entitic vol] 94.3 fL Normal 83.5-101 [facility] Comment on above: Performed By: #### T ACROLIMUS., CMP, CBC #### [facility] [address] [place] [address] [place] Neutrophils [#/volume] in Bl ood by Automated countOrdered By: Sharan Ayoub on 08-16-2023 Neutrophils (Bld) [#/Vol] 2.6 10*3/uL Normal 1.8-7.7 [facility] Comment on above: Performed By: #### T ACROLIMUS., CMP, CBC #### [facility] [address] No Panel InformationOrdered By: Sharan Ayoub on 08-16-2023 Estimated GFR (CKD-EPI) > 60.0 mL/Min [facility] Creatinine Clearance (Chem N/A [facility] Nucleated erythrocytes [Pres ence] in Blood by Automated countOrdered By: Sharan Ayoub on 08-16-2023 Nucleated RBC Auto Ql (Bld) 0.1 /100{WBC} 0-0.5 [facility] Platelet mean volume [Entiti c volume] in Blood by Automated countOrdered By: Sharan Ayoub on 08-16-2023 Platelet mean volume (Bld) [Entitic vol] 10.3 fL High 6.6-10.1 [facility] Comment on above: Performed By: #### T ACROLIMUS., CMP, CBC #### [facility] [address] [place] [address] [place] Platelets [#/volume] in Bloo d by Automated countOrdered By: Sharan Ayoub on 08-16-2023 Platelets (Bld) [#/Vol] 148 10*3/uL Low 150-450 [facility] Comment on above: Performed By: #### T ACROLIMUS., CMP, CBC #### [facility] [address] Potassium [Moles/volume] in Serum or PlasmaOrdered By: Sharan Ayoub on 08-16-2023 Potassium [Moles/Vol] 4.2 mmol/L Normal 3.5-5.1 [facility] Comment on above: Performed By: #### T ACROLIMUS., CMP, CBC #### [facility] [address] [place] [address] Protein [Mass/volume] in Ser um or PlasmaOrdered By: Sharan Ayoub on 08-16-2023 Protein [Mass/Vol] 7.1 g/dL Normal 6.4-8.9 [facility] Comment on above: Performed By: #### T ACROLIMUS., CMP, CBC #### [address] Serum globulin measurement b y calculation (mass/volume)Ordered By: Sharan Ayoub on 08-16-2023 Globulin (S) [Mass/Vol] 3.3 g/dL Normal [facility] Comment on above: Performed By: #### T ACROLIMUS., CMP, CBC #### [address] Serum or plasma albumin/glob ulin mass ratioOrdered By: Sharan Ayoub on 08-16-2023 Albumin/Globulin [Mass ratio] 1.2 {ratio} [facility] Comment on above: Performed By: #### T ACROLIMUS., CMP, CBC #### [address] Serum or plasma anion gap de terminationOrdered By: Sharan Ayoub on 08-16-2023 Anion gap [Moles/Vol] 7.5 mmol/L Normal 6.0-15.0 [facility] Comment on above: Performed By: #### T ACROLIMUS., CMP, CBC #### [facility] [address] [place] [address] [place] Sodium [Moles/volume] in Ser um or PlasmaOrdered By: Sharan Ayoub on 08-16-2023 Sodium [Moles/Vol] 141 mmol/L Normal 136-145 [facility] Comment on above: Performed By: #### T ACROLIMUS., CMP, CBC #### [facility] [address] [place] [address] Tacrolimuson 08-16-2023 Tacrolimus (Bld) [Mass/Vol] 10.9 ng/mL Normal <=15.0 [facility] Comment on above: Order Comment: NOTE: Result was obtained using a chemiluminescent microparticle immunoassay (CMIA) on the Stem Roller Or Crusher Operator i system. Optimal therapeutic ranges for immunosuppressant drugs depend upon an individual patient's current clinical state, type of organ transplant, time post-transplant, co-administration of other immunosuppressants, and other clinical factors. The results of this test should be correlated with additional clinical and laboratory data before changes in treatment regimens are made. Performed By: #### 1 1253-2 #### NORMA Cherry ([id number]) [facility] ([facility]) [id number] [place] [address] Tacrolimus (Transplant) No C hgon 08-16-2023 Tacrolimus (Transplant) No Chg Sent to Ref Lab Normal [facility] Comment on above: Result Comment: PERF ORMED BY: [place] [address] PATHOLOGIST VICTORIAN LITERATURE PROFESSOR MISAEL FOX M.D. Performed By: #### T ACROLIMUS., CMP, CBC #### [facility] [address] [place] [address] [place] Tacrolimus [Mass/volume] in BloodOrdered By: Sharan Ayoub on 08-16-2023 Tacrolimus (Bld) [Mass/Vol] Sent to ref lab [facility] Urea nitrogen [Mass/volume] in Serum or PlasmaOrdered By: Sharan Ayoub on 08-16-2023 Urea nitrogen [Mass/Vol] 18 mg/dL Normal 04-25 [facility] Comment on above: Performed By: #### T ACROLIMUS., CMP, CBC #### [facility] [address] [place] [address] [place] Alanine aminotransferase [En zymatic activity/volume] in Serum or PlasmaOrdered By: Sharan Ayoub on 07-18-2023 ALT [Catalytic activity/Vol] 69 U/L High [facility] Comment on above: Performed By: #### C MP, CBC, TACROLIMUS. #### [facility] [address] [place] [id number] [place] Albumin [Mass/volume] in Ser um or Plasma by Bromocresol green (BCG) dye binding methoOrdered By: Sharan Ayoub on 07-18-2023 Albumin BCG dye [Mass/Vol] 3.6 g/dL 3.5-5.7 [facility] Alkaline phosphatase [Enzyma tic activity/volume] in Serum or PlasmaOrdered By: Sharan Ayoub on 07-18-2023 ALP [Catalytic activity/Vol] 180 U/L High 34-104 [facility] Comment on above: Result Comment: PERF ORMED BY: [place] [address] PATHOLOGIST VICTORIAN LITERATURE PROFESSOR MISAEL FOX M.D. Performed By: #### C MP, CBC, TACROLIMUS. #### [facility] [address] [place] [address] Aspartate aminotransferase [ Enzymatic activity/volume] in Serum or PlasmaOrdered By: Sharan Ayoub on 07-18-2023 AST [Catalytic activity/Vol] 53 U/L High 13-39 [facility] Comment on above: Performed By: #### C MP, CBC, TACROLIMUS. #### [facility] [address] [place] [address] Automated basophil %Ordered By: Sharan Ayoub on 07-18-2023 Basophils/100 WBC (Bld) 1.0 % Normal . [facility] Comment on above: Performed By: #### C MP, CBC, TACROLIMUS. #### [facility] [address] [place] [address] Automated basophil countOrde red By: Sharan Ayoub on 07-18-2023 Basophils (Bld) [#/Vol] 0.1 10*3/uL Normal 0.0-0.2 [facility] Comment on above: Result Comment: PERF ORMED BY: [place] [address] PATHOLOGIST VICTORIAN LITERATURE PROFESSOR MISAEL FOX M.D. Performed By: #### C MP, CBC, TACROLIMUS. #### [facility] [address] [place] [address] Automated blood monocyte cou ntOrdered By: Sharan Ayoub on 07-18-2023 Monocytes (Bld) [#/Vol] 0.4 10*3/uL Normal 0.0-0.8 [facility] Comment on above: Performed By: #### C MP, CBC, TACROLIMUS. #### [address] Automated eosinophil %Ordere d By: Sharan Ayoub on 07-18-2023 Eosinophils/100 WBC (Bld) 2.4 % Normal . [facility] Comment on above: Performed By: #### C MP, CBC, TACROLIMUS. #### [address] Automated eosinophil countOr dered By: Sharan Ayoub on 07-18-2023 Eosinophils (Bld) [#/Vol] 0.1 10*3/uL Normal 0.0-0.45 [facility] Comment on above: Performed By: #### C MP, CBC, TACROLIMUS. #### [address] Automated monocyte %Ordered By: Sharan Ayoub on 07-18-2023 Monocytes/100 WBC (Bld) 7.3 % Normal . [facility] Comment on above: Performed By: #### C MP, CBC, TACROLIMUS. #### [address] Automated neutrophil %Ordere d By: Sharan Ayoub on 07-18-2023 Neutrophils/100 WBC (Bld) 55.6 % Normal . [facility] Comment on above: Performed By: #### C MP, CBC, TACROLIMUS. #### [address] Bilirubin.total [Mass/volume ] in Serum or PlasmaOrdered By: Sharan Ayoub on 07-18-2023 Bilirubin [Mass/Vol] 1.2 mg/dL High 0.3-1.0 [facility] Comment on above: Performed By: #### C MP, CBC, TACROLIMUS. #### [address] Calcium [Mass/volume] in Ser um or PlasmaOrdered By: Sharan Ayoub on 07-18-2023 Calcium [Mass/Vol] 8.9 mg/dL Normal 8.6-10.3 [facility] Comment on above: Performed By: #### C MP, CBC, TACROLIMUS. #### [address] Carbon dioxide, total [Moles /volume] in Serum or PlasmaOrdered By: Sharan Ayoub on 07-18-2023 CO2 [Moles/Vol] 32.5 mmol/L High 21.0-31.0 [facility] Comment on above: Performed By: #### C MP, CBC, TACROLIMUS. #### [address] Chloride [Moles/volume] in S kasi or PlasmaOrdered By: Sharan Ayobu on 07-18-2023 Chloride [Moles/Vol] 103 mmol/L Normal 98-107 [facility] Comment on above: Performed By: #### C MP, CBC, TACROLIMUS. #### [address] Complete Blood Count Auto Di ffon 07-18-2023 Mean Corpuscular HGB Conc 33.7 g/dL Normal 32.5-35.6 [facility] Comment on above: Performed By: #### C MP, CBC, TACROLIMUS. #### [address] NRBC% 0.2 /100{WBC} Normal 0-0.5 [facility] Comment on above: Performed By: #### C MP, CBC, TACROLIMUS. #### [address] Comprehensive Metabolic Pane sarah 07-18-2023 Albumin [Mass/Vol] 3.6 g/dL Normal 3.5-5.7 [facility] Comment on above: Performed By: #### C MP, CBC, TACROLIMUS. #### [address] GFR/1.73 sq M.predicted MDRD (S/P/Bld) [Vol rate/Area] mL/min/{1.73_m2} Normal [facility] Comment on above: Performed By: #### C MP, CBC, TACROLIMUS. #### [address] Creatinine [Mass/volume] in Serum or PlasmaOrdered By: Sharan Ayoub on 07-18-2023 Creatinine [Mass/Vol] 0.95 mg/dL Normal 0.70-1.30 [facility] Comment on above: Performed By: #### C MP, CBC, TACROLIMUS. #### [address] EBV Quant DNA PCR, Whole Blo odon 07-18-2023 EBV PCR Qnt Log 10 3.254 Normal . [facility] Comment on above: Result Comment: Resu lt Units: [id number]/mL Performed at: [address] [id number] Profiling Machine Set Up Operator Tool: Thierry Currie MD, Phone: [phone] PERFORMED BY: [place] [address] PATHOLOGIST VICTORIAN LITERATURE PROFESSOR MISAEL FOX M.D. Performed By: #### T ACROLIMUS., CMP, CBC #### [address] EBV PCR Quant 1793 Normal Negative [facility] Comment on above: Result Comment: The quantitative range of this assay is 100 to 1 million copies/mL. This test was developed and its performance characteristics determined by [facility] It has not been cleared or approved by the Food and Drug Administration. The FDA has determined that such clearance or approval is not necessary. Performed By: #### T ACROLIMUS., CMP, CBC #### [address] Erythrocyte distribution wid th [Ratio] by Automated countOrdered By: Sharan Ayoub on 07-18-2023 Erythrocyte distribution width (RBC) [Ratio] 14.0 % Normal 12.0-14.8 [facility] Comment on above: Performed By: #### C MP, CBC, TACROLIMUS. #### [facility] [address] Erythrocytes [#/volume] in B lood by Automated countOrdered By: Sharan Ayoub on 07-18-2023 RBC (Bld) [#/Vol] 4.30 10*6/uL Normal 3.90-5.60 [facility] Comment on above: Performed By: #### C MP, CBC, TACROLIMUS. #### [facility] [address] Glucose [Mass/volume] in Ser um or PlasmaOrdered By: Sharan Ayoub on 07-18-2023 Glucose [Mass/Vol] 369 mg/dL High 70-100 [facility] Comment on above: ADA recommended refe rence rangeRandom Glucose Reference Range is dependent on time and content of last meal. Glucose of more than 200 mg/dL in a nonstressed, ambulatory subject supports the diagnosis of Diabetes Mellitus. Result Comment: [place] om Glucose Reference Range is dependent on time and content of last meal. Glucose of more than 200 mg/dL in a nonstressed, ambulatory subject supports the diagnosis of Diabetes Mellitus. ADA recommended reference range Performed By: #### C MP, CBC, TACROLIMUS. #### [facility] [address] Hematocrit [Volume Fraction] of Blood by Automated countOrdered By: Sharan Ayoub on 07-18-2023 Hematocrit (Bld) [Volume fraction] 40.5 % Normal 38.8-50.0 [facility] Comment on above: Performed By: #### C MP, CBC, TACROLIMUS. #### [facility] [address] Hemoglobin [Mass/volume] in BloodOrdered By: Sharan Ayoub on 07-18-2023 Hemoglobin (Bld) [Mass/Vol] 13.7 g/dL Normal 13.0-17.0 [facility] Comment on above: Performed By: #### C MP, CBC, TACROLIMUS. #### [facility] [address] [place] [address] [place] Leukocytes [#/volume] correc roderick for nucleated erythrocytes in Blood by Automated counOrdered By: Sharan Ayoub on 07-18-2023 WBC corrected for nucl RBC Auto (Bld) [#/Vol] 5.4 10*3/uL 4.1-10.5 [facility] Leukocytes [#/volume] in Blo od by Automated countOrdered By: Sharan Ayoub on 07-18-2023 WBC (Bld) [#/Vol] 5.4 10*3/uL Normal 4.1-10.5 [facility] Comment on above: Performed By: #### C MP, CBC, TACROLIMUS. #### [facility] [address] [place] [address] [place] Lymphocytes [#/volume] in Bl ood by Automated countOrdered By: Sharan Ayoub on 07-18-2023 Lymphocytes (Bld) [#/Vol] 1.8 10*3/uL Normal 1.00-4.8 [facility] Comment on above: Performed By: #### C MP, CBC, TACROLIMUS. #### [facility] [address] [place] [address] [place] Lymphocytes/100 leukocytes i n Blood by Automated countOrdered By: Sharan Ayoub on 07-18-2023 Lymphocytes/100 WBC (Bld) 33.7 % Normal . [facility] Comment on above: Performed By: #### C MP, CBC, TACROLIMUS. #### [facility] [address] [place] [address] [place] MCH [Entitic mass] by Automa roderick countOrdered By: Sharan Ayoub on 07-18-2023 MCH (RBC) [Entitic mass] 31.8 pg Normal 27.5-35.2 [facility] Comment on above: Performed By: #### C MP, CBC, TACROLIMUS. #### [facility] [address] [place] [address] MCHC Auto (RBC) [Mass/Vol]Or dered By: Sharan Ayoub on 07-18-2023 MCHC (RBC) [Mass/Vol] 33.7 g/dL 32.5-35.6 [facility] MCV [Entitic volume] by Auto mated countOrdered By: Sharan Ayoub on 07-18-2023 MCV (RBC) [Entitic vol] 94.2 fL Normal 83.5-101 [facility] Comment on above: Performed By: #### C MP, CBC, TACROLIMUS. #### [facility] [address] [place] [address] Neutrophils [#/volume] in Bl ood by Automated countOrdered By: Sharan Ayoub on 07-18-2023 Neutrophils (Bld) [#/Vol] 3.0 10*3/uL Normal 1.8-7.7 [facility] Comment on above: Performed By: #### C MP, CBC, TACROLIMUS. #### [facility] [address] [place] [address] No Panel InformationOrdered By: Leighton Reilly on 07-18-2023 Isaac-Fair DNA, Quant (PCR) log10 3.254 . [facility] Comment on above: Result Units: log10c opy/mLPerformed at: BN - [facility] [address] [id number] Director: Thierry Currie MD, Phone: [phone] No Panel InformationOrdered By: Sharan Ayoub on 07-18-2023 Estimated GFR (CKD-EPI) > 60.0 mL/Min [facility] Creatinine Clearance (Chem N/A [facility] Nucleated erythrocytes [Pres ence] in Blood by Automated countOrdered By: Sharan Ayoub on 07-18-2023 Nucleated RBC Auto Ql (Bld) 0.2 /100{WBC} 0-0.5 [facility] Platelet mean volume [Entiti c volume] in Blood by Automated countOrdered By: Sharan Ayoub on 07-18-2023 Platelet mean volume (Bld) [Entitic vol] 10.7 fL High 6.6-10.1 [facility] Comment on above: Performed By: #### C MP, CBC, TACROLIMUS. #### [facility] [address] [place] [address] Platelets [#/volume] in Bloo d by Automated countOrdered By: Sharan Ayoub on 07-18-2023 Platelets (Bld) [#/Vol] 129 10*3/uL Low 150-450 [facility] Comment on above: Performed By: #### C MP, CBC, TACROLIMUS. #### [address] Potassium [Moles/volume] in Serum or PlasmaOrdered By: Sharan Ayoub on 07-18-2023 Potassium [Moles/Vol] 4.2 mmol/L Normal 3.5-5.1 [facility] Comment on above: Performed By: #### C MP, CBC, TACROLIMUS. #### [address] Protein [Mass/volume] in Ser um or PlasmaOrdered By: Sharan Ayoub on 07-18-2023 Protein [Mass/Vol] 7.1 g/dL Normal 6.4-8.9 [facility] Comment on above: Performed By: #### C MP, CBC, TACROLIMUS. #### [address] Serum globulin measurement b y calculation (mass/volume)Ordered By: Sharan Ayoub on 07-18-2023 Globulin (S) [Mass/Vol] 3.5 g/dL [facility] Comment on above: Performed By: #### C MP, CBC, TACROLIMUS. #### [address] Serum or plasma albumin/glob ulin mass ratioOrdered By: Sharan Ayoub on 07-18-2023 Albumin/Globulin [Mass ratio] 1.0 {ratio} [facility] Comment on above: Performed By: #### C MP, CBC, TACROLIMUS. #### [address] Serum or plasma anion gap de terminationOrdered By: Sharan Ayoub on 07-18-2023 Anion gap [Moles/Vol] 7.7 mmol/L Normal 6.0-15.0 [facility] Comment on above: Performed By: #### C MP, CBC, TACROLIMUS. #### [facility] [address] Sodium [Moles/volume] in Ser um or PlasmaOrdered By: Sharan Ayoub on 07-18-2023 Sodium [Moles/Vol] 139 mmol/L Normal 136-145 [facility] Comment on above: Performed By: #### C MP, CBC, TACROLIMUS. #### [facility] [address] Tacrolimuson 07-18-2023 Tacrolimus (Bld) [Mass/Vol] 14.5 ng/mL Normal <=15.0 [facility] Comment on above: Order Comment: NOTE: Result was obtained using a chemiluminescent microparticle immunoassay (CMIA) on the Stem Roller Or Crusher Operator i system. Optimal therapeutic ranges for immunosuppressant drugs depend upon an individual patient's current clinical state, type of organ transplant, time post-transplant, co-administration of other immunosuppressants, and other clinical factors. The results of this test should be correlated with additional clinical and laboratory data before changes in treatment regimens are made. Performed By: #### 1 1253-2 #### NORMA Cherry ([id number]) [facility] ([facility]) [id number] [place] [address] Tacrolimus (Transplant) No C hgon 07-18-2023 Tacrolimus (Transplant) No Chg Sent to Ref Lab Normal [facility] Comment on above: Result Comment: PERF ORMED BY: [place] [address] PATHOLOGIST VICTORIAN LITERATURE PROFESSOR MISAEL FOX M.D. Performed By: #### C MP, CBC, TACROLIMUS. #### [facility] [address] Tacrolimus [Mass/volume] in BloodOrdered By: Sharan Ayoub on 07-18-2023 Tacrolimus (Bld) [Mass/Vol] Sent to ref lab [facility] Urea nitrogen [Mass/volume] in Serum or PlasmaOrdered By: Sharan Ayoub on 07-18-2023 Urea nitrogen [Mass/Vol] 15 mg/dL Normal 7-25 [facility] Comment on above: Performed By: #### C MP, CBC, TACROLIMUS. #### [facility] [address] Whole blood quantitative Eps tein-Fair virus (EBV) DNA assay by PCROrdered By: Leighton Reilly on 07-18-2023 EBV DNA LÁZARO+probe (Bld) [#/Vol] 1793 copies/mL Negative [facility] Comment on above: The quantitative ran ge of this assay is 100 to 1 millioncopies/mL.This test was developed and its performance characteristicsdetermined by [employer]. It has not been cleared or approvedby the Food and Drug Administration. The FDA hasdetermined that such clearance or approval is notnecessary. TACROLIMUSon 06-10-2023 Tacrolimus (Bld) [Mass/Vol] 15.8 ng/mL High 2.0 - 15.0 [facility] Comment on above: Result Comment: NOTE : Result was obtained using a chemiluminescent microparticle immunoassay (CMIA) on the Stem Roller Or Crusher Operator i system. Optimal therapeutic ranges for immuno- suppressant drugs depend upon an individual patient's current clinical state, type of organ transplant, time post-transplant, co-administration of other immunosuppressants, and other clinical factors. The results of this test should be correlated with additional clinical and laboratory data before changes in treatment regimens are made. Performed By: #### F [id number] #### [facility] [id number] [place] [address] Alanine aminotransferase [En zymatic activity/volume] in Serum or PlasmaOrdered By: Sharan Ayoub on 06-09-2023 ALT [Catalytic activity/Vol] 62 U/L 7-52 [facility] Albumin [Mass/volume] in Ser um or Plasma by Bromocresol green (BCG) dye binding methoOrdered By: Sharan Ayoub on 06-09-2023 Albumin BCG dye [Mass/Vol] 3.6 g/dL 3.5-5.7 [facility] Alkaline phosphatase [Enzyma tic activity/volume] in Serum or PlasmaOrdered By: Sharan Ayoub on 06-09-2023 ALP [Catalytic activity/Vol] 185 U/L 34-104 [facility] Aspartate aminotransferase [ Enzymatic activity/volume] in Serum or PlasmaOrdered By: Sharan Ayoub on 06-09-2023 AST [Catalytic activity/Vol] 67 U/L 13-39 [facility] Basophils Auto (Bld) [#/Vol] Ordered By: Sharan Ayoub on 06-09-2023 Basophils (Bld) [#/Vol] 0.0 10*3/uL 0.0-0.2 [facility] Basophils/100 WBC Auto (Bld) Ordered By: Sharan Ayoub on 06-09-2023 Basophils/100 WBC (Bld) 0.5 % . [facility] Bilirubin.total [Mass/volume ] in Serum or PlasmaOrdered By: Sharan Ayoub on 06-09-2023 Bilirubin [Mass/Vol] 1.4 mg/dL 0.3-1.0 [facility] Comment on above: Samples from patient s who have taken Naproxen have shown spurious elevation in Total Bilirubin levels. A metabolite of Naproxen, O-desmethylnaproxen, has been shown to interfere with the Harlan-Uriel method for measuring Total Bilirubin. Calcium [Mass/volume] in Ser um or PlasmaOrdered By: Sharan Ayoub on 06-09-2023 Calcium [Mass/Vol] 8.8 mg/dL 8.6-10.3 [facility] Carbon dioxide, total [Moles /volume] in Serum or PlasmaOrdered By: Sharan Ayoub on 06-09-2023 CO2 [Moles/Vol] 31.0 mmol/L 21.0-31.0 [facility] Chloride [Moles/volume] in S kasi or PlasmaOrdered By: Sharan Ayoub on 06-09-2023 Chloride [Moles/Vol] 105 mmol/L 98-107 [facility] Cholesterol [Mass/volume] in Serum or PlasmaOrdered By: Ember Tejeda on 06-09-2023 Cholesterol [Mass/Vol] 211 mg/dL 140-200 [facility] Comment on above: Chol less than 200 m g/dl low riskChol 201-239 mg/dl borderline riskChol 240 mg/dl and greater high risk Cholesterol in LDL Calc [Mas s/Vol]Ordered By: Ember Tejeda on 06-09-2023 Cholesterol in LDL [Mass/Vol] 107 mg/dL 0-100 [facility] Comment on above: LDL ATP III CLASSIFI CATIONLDL less than 100 mg/dL OptimalLDL 100-129 mg/dL Near or above optimalLDL 130-159 mg/dL Borderline highLDL 160-189 mg/dL HighLDL greater than 189 mg/dL Very high Cholesterol in VLDL Calc [Ma ss/Vol]Ordered By: Ember Tejeda on 06-09-2023 Cholesterol in VLDL [Mass/Vol] 16 mg/dL [facility] Creatinine [Mass/volume] in Serum or PlasmaOrdered By: Sharan Ayoub on 06-09-2023 Creatinine [Mass/Vol] 0.93 mg/dL 0.70-1.30 [facility] Eosinophils Auto (Bld) [#/Vo l]Ordered By: Sharan Ayoub on 06-09-2023 Eosinophils (Bld) [#/Vol] 0.1 10*3/uL 0.0-0.45 [facility] Eosinophils/100 WBC Auto (Bl d)Ordered By: Sharan Ayoub on 06-09-2023 Eosinophils/100 WBC (Bld) 1.5 % . [facility] Isaac Fair virus DNA [#/vo lume] (viral load) in Serum or Plasma by LÁZARO with probe dOrdered By: Leighton Reilly on 06-09-2023 EBV DNA LÁZARO+probe [#/Vol] Negative Negative [facility] Comment on above: No EBV DNA detected. The linear range of this assay is 35 - 100,000,000 IU/mLPerformed at: - Lab[address] [id number] Director: Thierry Currie MD, Phone: [phone] Erythrocyte distribution wid th Auto (RBC) [Ratio]Ordered By: Sharan Ayoub on 06-09-2023 Erythrocyte distribution width (RBC) [Ratio] 14.0 % 12.0-14.8 [facility] Globulin Calc (S) [Mass/Vol] Ordered By: Sharan Ayoub on 06-09-2023 Globulin (S) [Mass/Vol] 3.1 g/dL [facility] Glucose [Mass/volume] in Ser um or PlasmaOrdered By: Sharan Ayoub on 06-09-2023 Glucose [Mass/Vol] 149 mg/dL 70-100 [facility] Comment on above: ADA recommended refe rence rangeRandom Glucose Reference Range is dependent on time and content of last meal. Glucose of more than 200 mg/dL in a nonstressed, ambulatory subject supports the diagnosis of Diabetes Mellitus. Hematocrit Auto (Bld) [Volum e fraction]Ordered By: Sharan Ayoub on 06-09-2023 Hematocrit (Bld) [Volume fraction] 40.7 % 38.8-50.0 [facility] Hemoglobin [Mass/volume] in BloodOrdered By: Sharan Ayoub on 06-09-2023 Hemoglobin (Bld) [Mass/Vol] 13.5 g/dL 13.0-17.0 [facility] Leukocytes [#/volume] correc roderick for nucleated erythrocytes in Blood by Automated counOrdered By: Sharan Ayoub on 06-09-2023 WBC corrected for nucl RBC Auto (Bld) [#/Vol] 3.8 10*3/uL 4.1-10.5 [facility] Lymphocytes Auto (Bld) [#/Vo l]Ordered By: Sharan Ayoub on 06-09-2023 Lymphocytes (Bld) [#/Vol] 2.0 10*3/uL 1.00-4.8 [facility] Lymphocytes/100 WBC Auto (Bl d)Ordered By: Sharan Ayoub on 06-09-2023 Lymphocytes/100 WBC (Bld) 51.4 % . [facility] MCH Auto (RBC) [Entitic mass ]Ordered By: Sharan Ayoub on 06-09-2023 MCH (RBC) [Entitic mass] 31.1 pg 27.5-35.2 [facility] MCHC Auto (RBC) [Mass/Vol]Or dered By: Sharan Ayoub on 06-09-2023 MCHC (RBC) [Mass/Vol] 33.2 g/dL 32.5-35.6 [facility] MCV Auto (RBC) [Entitic vol] Ordered By: Sharan Ayoub on 06-09-2023 MCV (RBC) [Entitic vol] 93.7 fL 83.5-101 [facility] Monocytes Auto (Bld) [#/Vol] Ordered By: Sharan Ayoub on 06-09-2023 Monocytes (Bld) [#/Vol] 0.6 10*3/uL 0.0-0.8 [facility] Monocytes/100 WBC Auto (Bld) Ordered By: Sharan Ayoub on 06-09-2023 Monocytes/100 WBC (Bld) 16.0 % . [facility] Neutrophils Auto (Bld) [#/Vo l]Ordered By: Sharan Ayoub on 06-09-2023 Neutrophils (Bld) [#/Vol] 1.2 10*3/uL 1.8-7.7 [facility] Neutrophils/100 WBC Auto (Bl d)Ordered By: Sharan Ayoub on 06-09-2023 Neutrophils/100 WBC (Bld) 30.6 % . [facility] No Panel InformationOrdered By: Leighton Reilly on 06-09-2023 Isaac-Fair Quant PCR Plasma log10 N/A [facility] No Panel InformationOrdered By: Sharan Ayoub on 06-09-2023 Estimated GFR (CKD-EPI) > 60.0 mL/Min [facility] Creatinine Clearance (Chem N/A [facility] Tacrolimus (Prograf) Level Sent to [facility] Nucleated erythrocytes [Pres ence] in Blood by Automated countOrdered By: Sharan Ayoub on 06-09-2023 Nucleated RBC Auto Ql (Bld) 0.1 /100{WBC} 0-0.5 [facility] Platelet mean volume Auto (B ld) [Entitic vol]Ordered By: Sharan Ayoub on 06-09-2023 Platelet mean volume (Bld) [Entitic vol] 10.9 fL 6.6-10.1 [facility] Platelets Auto (Bld) [#/Vol] Ordered By: Sharan Ayoub on 06-09-2023 Platelets (Bld) [#/Vol] 129 10*3/uL 150-450 [facility] Potassium [Moles/volume] in Serum or PlasmaOrdered By: Sharan Ayoub on 06-09-2023 Potassium [Moles/Vol] 4.1 mmol/L 3.5-5.1 [facility] Protein [Mass/volume] in Ser um or PlasmaOrdered By: Sharan Ayoub on 06-09-2023 Protein [Mass/Vol] 6.7 g/dL 6.4-8.9 [facility] RBC Auto (Bld) [#/Vol]Ordere d By: Sharan Ayoub on 06-09-2023 RBC (Bld) [#/Vol] 4.35 10*6/uL 3.90-5.60 [facility] Serum or plasma albumin/glob ulin mass ratioOrdered By: Sharan Ayoub on 06-09-2023 Albumin/Globulin [Mass ratio] 1.2 {ratio} [facility] Serum or plasma anion gap de terminationOrdered By: Sharan Ayoub on 06-09-2023 Anion gap [Moles/Vol] 8.1 mmol/L 6.0-15.0 [facility] Serum or plasma high density lipoprotein (HDL) cholesterol measurementOrdered By: Ember Tejeda on 06-09-2023 Cholesterol in HDL [Mass/Vol] 87 mg/dL 23-92 [facility] Comment on above: HDL CHOL ATP-III CLA SSIFICATION Cardiovascular RiskHDL > or equal to 60 mg/dL LOWHDL < 40 mg/dL HIGH Serum or plasma total choles terol/high density lipoprotein (HDL) cholesterol mass ratOrdered By: Ember Tejeda on 06-09-2023 Cholesterol.total/Cho lesterol in HDL [Mass ratio] 2.4 {ratio} <5.0 [facility] Sodium [Moles/volume] in Ser um or PlasmaOrdered By: Sharan Ayoub on 06-09-2023 Sodium [Moles/Vol] 140 mmol/L 136-145 [facility] Tacrolimuson 06-09-2023 Tacrolimus (Bld) [Mass/Vol] 15.8 ng/mL above high threshold 2.0 - 15.0 [facility] [address] Work Phone: Comment on above: NOTE: Result was obt ained using a chemiluminescent microparticle immunoassay (CMIA) on the Stem Roller Or Crusher Operator i system.Optimal therapeutic ranges for immuno-suppressant drugs depend upon an individualpatient's current clinical state, type oforgan transplant, time post-transplant,co-administration of other immunosuppressants,and other clinical factors. The results ofthis test should be correlated with additionalclinical and laboratory data before changesin treatment regimens are made. Thyrotropin [Units/volume] i n Serum or PlasmaOrdered By: Ember Tejeda on 06-09-2023 TSH Qn 1.50 m[IU]/L 0.45-5.33 [facility] Triglyceride [Mass/volume] i n Serum or PlasmaOrdered By: Ember Tejeda on 06-09-2023 Triglyceride [Mass/Vol] 84 mg/dL 0-149 [facility] Comment on above: TRIG ATP III CLASSIF ICATIONTRIG less than 150 mg/dL NormalTRIG 150-199 mg/dL Borderline highTRIG 200-500 mg/dL High TRIG greater than 500 mg/dL Very highStandard traceable to the Center for Disease Conrtrol and Prevention (CDC) test method. Urea nitrogen [Mass/volume] in Serum or PlasmaOrdered By: Sharan Ayoub on 06-09-2023 Urea nitrogen [Mass/Vol] 14 mg/dL 7-25 [facility] WBC Auto (Bld) [#/Vol]Ordere d By: Sharan Ayoub on 06-09-2023 WBC (Bld) [#/Vol] 3.8 10*3/uL 4.1-10.5 [facility] TACROLIMUSon 05-24-2023 Tacrolimus (Bld) [Mass/Vol] 7.7 ng/mL Normal 2.0 - 15.0 [facility] Comment on above: Result Comment: NOTE : Result was obtained using a chemiluminescent microparticle immunoassay (CMIA) on the Stem Roller Or Crusher Operator i system. Optimal therapeutic ranges for immuno- suppressant drugs depend upon an individual patient's current clinical state, type of organ transplant, time post-transplant, co-administration of other immunosuppressants, and other clinical factors. The results of this test should be correlated with additional clinical and laboratory data before changes in treatment regimens are made. Performed By: #### F [id number] #### [facility] [id number] [place] [address] Tacrolimuson 05-23-2023 Tacrolimus (Bld) [Mass/Vol] 7.7 ng/mL 2.0 - 15.0 [facility] angie BradfordA [facility] Work Phone: Comment on above: NOTE: Result was obt ained using a chemiluminescent microparticle immunoassay (CMIA) on the Stem Roller Or Crusher Operator i system.Optimal therapeutic ranges for immuno-suppressant drugs depend upon an individualpatient's current clinical state, type oforgan transplant, time post-transplant,co-administration of other immunosuppressants,and other clinical factors. The results ofthis test should be correlated with additionalclinical and laboratory data before changesin treatment regimens are made. Alanine aminotransferase [En zymatic activity/volume] in Serum or PlasmaOrdered By: Sharan Ayoub on 05-19-2023 ALT [Catalytic activity/Vol] 70 U/L 7-52 [facility] Albumin [Mass/volume] in Ser um or Plasma by Bromocresol green (BCG) dye binding methoOrdered By: Sharan Ayoub on 05-19-2023 Albumin BCG dye [Mass/Vol] 3.5 g/dL 3.5-5.7 [facility] Alkaline phosphatase [Enzyma tic activity/volume] in Serum or PlasmaOrdered By: Sharan Ayoub on 05-19-2023 ALP [Catalytic activity/Vol] 173 U/L 34-104 [facility] Aspartate aminotransferase [ Enzymatic activity/volume] in Serum or PlasmaOrdered By: Sharan Ayoub on 05-19-2023 AST [Catalytic activity/Vol] 86 U/L 13-39 [facility] Basophils Auto (Bld) [#/Vol] Ordered By: Sharan Ayoub on 05-19-2023 Basophils (Bld) [#/Vol] 0.1 10*3/uL 0.0-0.2 [facility] Basophils/100 WBC Auto (Bld) Ordered By: Sharan Ayoub on 05-19-2023 Basophils/100 WBC (Bld) 1.3 % . [facility] Bilirubin.total [Mass/volume ] in Serum or PlasmaOrdered By: Sharan Ayoub on 05-19-2023 Bilirubin [Mass/Vol] 2.5 mg/dL 0.3-1.0 [facility] Comment on above: Samples from patient s who have taken Naproxen have shown spurious elevation in Total Bilirubin levels. A metabolite of Naproxen, O-desmethylnaproxen, has been shown to interfere with the Harlan-Uriel method for measuring Total Bilirubin. Calcium [Mass/volume] in Ser um or PlasmaOrdered By: Sharan Ayoub on 05-19-2023 Calcium [Mass/Vol] 9.2 mg/dL 8.6-10.3 [facility] Carbon dioxide, total [Moles /volume] in Serum or PlasmaOrdered By: Sharan Ayoub on 05-19-2023 CO2 [Moles/Vol] 30.1 mmol/L 21.0-31.0 [facility] Chloride [Moles/volume] in S kasi or PlasmaOrdered By: Sharan Ayoub on 05-19-2023 Chloride [Moles/Vol] 103 mmol/L 98-107 [facility] Creatinine [Mass/volume] in Serum or PlasmaOrdered By: Sharan Ayoub on 05-19-2023 Creatinine [Mass/Vol] 1.08 mg/dL 0.70-1.30 [facility] Eosinophils Auto (Bld) [#/Vo l]Ordered By: Sharan Ayoub on 05-19-2023 Eosinophils (Bld) [#/Vol] 0.1 10*3/uL 0.0-0.45 [facility] Eosinophils/100 WBC Auto (Bl d)Ordered By: Sharan Ayoub on 05-19-2023 Eosinophils/100 WBC (Bld) 2.0 % . [facility] Isaac Fair virus DNA [#/vo lume] (viral load) in Serum or Plasma by LÁZARO with probe dOrdered By: Leighton Reilly on 05-19-2023 EBV DNA LÁZARO+probe [#/Vol] Negative Negative [facility] Comment on above: No EBV DNA detected. The linear range of this assay is 35 - 100,000,000 IU/mLPerformed at: - [facility]co[address] [id number] Director: Thierry Currie MD, Phone: [phone] Erythrocyte distribution wid th Auto (RBC) [Ratio]Ordered By: Sharan Ayoub on 05-19-2023 Erythrocyte distribution width (RBC) [Ratio] 13.9 % 12.0-14.8 [facility] Globulin Calc (S) [Mass/Vol] Ordered By: Sharan Ayoub on 05-19-2023 Globulin (S) [Mass/Vol] 3.6 g/dL [facility] Glucose [Mass/volume] in Ser um or PlasmaOrdered By: Sharan Ayoub on 05-19-2023 Glucose [Mass/Vol] 147 mg/dL 70-100 [facility] Comment on above: ADA recommended refe rence rangeRandom Glucose Reference Range is dependent on time and content of last meal. Glucose of more than 200 mg/dL in a nonstressed, ambulatory subject supports the diagnosis of Diabetes Mellitus. Hematocrit Auto (Bld) [Volum e fraction]Ordered By: Sharan Ayoub on 05-19-2023 Hematocrit (Bld) [Volume fraction] 39.0 % 38.8-50.0 [facility] Hemoglobin [Mass/volume] in BloodOrdered By: Sharan Ayoub on 05-19-2023 Hemoglobin (Bld) [Mass/Vol] 13.2 g/dL 13.0-17.0 [facility] Leukocytes [#/volume] correc roderick for nucleated erythrocytes in Blood by Automated counOrdered By: Sharan Ayoub on 05-19-2023 WBC corrected for nucl RBC Auto (Bld) [#/Vol] 4.7 10*3/uL 4.1-10.5 [facility] Lymphocytes Auto (Bld) [#/Vo l]Ordered By: Sharan Ayoub on 05-19-2023 Lymphocytes (Bld) [#/Vol] 2.0 10*3/uL 1.00-4.8 [facility] Lymphocytes/100 WBC Auto (Bl d)Ordered By: Sharan Ayoub on 05-19-2023 Lymphocytes/100 WBC (Bld) 42.7 % . [facility] MCH Auto (RBC) [Entitic mass ]Ordered By: Sharan Ayoub on 05-19-2023 MCH (RBC) [Entitic mass] 31.9 pg 27.5-35.2 [facility] MCHC Auto (RBC) [Mass/Vol]Or dered By: Sharan Ayoub on 05-19-2023 MCHC (RBC) [Mass/Vol] 33.9 g/dL 32.5-35.6 [facility] MCV Auto (RBC) [Entitic vol] Ordered By: Sharan Ayoub on 05-19-2023 MCV (RBC) [Entitic vol] 94.0 fL 83.5-101 [facility] Monocytes Auto (Bld) [#/Vol] Ordered By: Sharan Ayoub on 05-19-2023 Monocytes (Bld) [#/Vol] 0.3 10*3/uL 0.0-0.8 [facility] Monocytes/100 WBC Auto (Bld) Ordered By: Sharan Ayoub on 05-19-2023 Monocytes/100 WBC (Bld) 6.3 % . [facility] Neutrophils Auto (Bld) [#/Vo l]Ordered By: Sharan Ayoub on 05-19-2023 Neutrophils (Bld) [#/Vol] 2.3 10*3/uL 1.8-7.7 [facility] Neutrophils/100 WBC Auto (Bl d)Ordered By: Sharan Ayoub on 05-19-2023 Neutrophils/100 WBC (Bld) 47.7 % . [facility] No Panel InformationOrdered By: Leighton Reilly on 05-19-2023 Isaac-Fair Quant PCR Plasma log10 N/A [facility] No Panel InformationOrdered By: Sharan Ayoub on 05-19-2023 Estimated GFR (CKD-EPI) > 60.0 mL/Min [facility] Creatinine Clearance (Chem N/A [facility] Tacrolimus (Prograf) Level Sent to [facility] Nucleated erythrocytes [Pres ence] in Blood by Automated countOrdered By: Sharan Ayoub on 05-19-2023 Nucleated RBC Auto Ql (Bld) 0.2 /100{WBC} 0-0.5 [facility] Platelet mean volume Auto (B ld) [Entitic vol]Ordered By: Sharan Ayoub on 05-19-2023 Platelet mean volume (Bld) [Entitic vol] 11.0 fL 6.6-10.1 [facility] Platelets Auto (Bld) [#/Vol] Ordered By: Sharan Ayoub on 05-19-2023 Platelets (Bld) [#/Vol] 140 10*3/uL 150-450 [facility] Potassium [Moles/volume] in Serum or PlasmaOrdered By: Sharan Ayoub on 05-19-2023 Potassium [Moles/Vol] 3.9 mmol/L 3.5-5.1 [facility] Protein [Mass/volume] in Ser um or PlasmaOrdered By: Sharan Ayoub on 05-19-2023 Protein [Mass/Vol] 7.1 g/dL 6.4-8.9 [facility] RBC Auto (Bld) [#/Vol]Ordere d By: Sharan Ayoub on 05-19-2023 RBC (Bld) [#/Vol] 4.15 10*6/uL 3.90-5.60 [facility] Serum or plasma albumin/glob ulin mass ratioOrdered By: Sharan Ayoub on 05-19-2023 Albumin/Globulin [Mass ratio] 1.0 {ratio} [facility] Serum or plasma anion gap de terminationOrdered By: Sharan Ayoub on 05-19-2023 Anion gap [Moles/Vol] 9.8 mmol/L 6.0-15.0 [facility] Sodium [Moles/volume] in Ser um or PlasmaOrdered By: Sharan Ayoub on 05-19-2023 Sodium [Moles/Vol] 139 mmol/L 136-145 [facility] Urea nitrogen [Mass/volume] in Serum or PlasmaOrdered By: Sharan Ayoub on 05-19-2023 Urea nitrogen [Mass/Vol] 14 mg/dL 7-25 [facility] WBC Auto (Bld) [#/Vol]Ordere d By: Sharan Ayoub on 05-19-2023 WBC (Bld) [#/Vol] 4.7 10*3/uL 4.1-10.5 [facility] ID - Initial/Consulton 05-03 ID - Initial/Consult Chief Complaint Visit For: Other Consult requested by Dr. 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 Patient had liver biopsy on February 03 to 2022 for elevated liver enzymes. Pathology showed mild portal inflammation with lobular lymphocytic infiltrate which can be seen with medication or viruses like CMV. NISHI is negative. Appears like liver enzymes normalized without any definite treatment. In the course of workup for elevated liver enzymes EBV virus was noted to be elevated and so referred to ID. Today patient is accompanied by his mother. Patient does not voice any specific complaints. Patient states he was feeling tired and fatigued in January 2023 but now he is back to his normal self. Patient denies persistent fever night sweats or weight loss. Patient denies nausea vomiting or diarrhea. Patient denies lumps or bumps in neck axilla and groin. Review of Systems Ten organ systems reviewed and negative except above. 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39) History of vitamin D deficiency (V12.1) (Z86.39) Surgical History History of Liver Transplant Family History No pertinent family history Social History Does not use tobacco (V49.89) (Z78.9) Never a smoker No alcohol use No illicit drug use Allergies No Known Drug Allergies Recorded By: Perry Morse; 04/13/2016 1:44:22 PM Current Meds Aspirin 81 MG Oral Tablet Delayed Release; TAKE 1 TABLET DAILY; Therapy: (Recorded:[id number]) to Recorded Dispense: 0 Days ; #: Sufficient Tablet Delayed Release; Refill: 0;For: Health Maintenance; JOSEFINA = N; Record; Last Updated By: Kirsty Ott; 06/23/2016 9:09:44 AM Multi-Vitamins TABS; TAKE 1 TABLET DAILY; Therapy: 30Aug2017 to (Evaluate:25Aug2018) Recorded Dispense: 30 Days ; #:30 X 30 Tablet Bottle; Refill: 11;For: Health Maintenance; JOSEFINA = N; Record; Last Updated By: Nae Campos; 08/30/2017 10:24:55 AM Mycophenolate Mofetil 250 MG Oral Capsule; TAKE 1 CAPSULE BY MOUTH EVERY 12 HOURS; Therapy: 28Aug2017 to (Evaluate:[id number]) Requested for: [id number]; Last Rx:[id number] Ordered Rx By: Sharan Ayoub; Dispense: 30 Days ; #:60 Capsule; Refill: 11;For: Immunosuppression, Liver replaced by transplant; JOSEFINA = N; Verified Transmission to [facility] #[id number] Formulary Override Reason: Drug is not indicated for Patient condition predniSONE 1 MG Oral Tablet; Take 1 tablet daily; Therapy: [id number] to (Evaluate:23Feb2024) Requested for: 28Feb2023 Recorded Rx By: Sharan Ayoub; Dispense: 30 Days ; #:30 Tablet; Refill: 11;For: Immunosuppression, Liver replaced by transplant; JOSEFINA = N; Record; Last Updated By: Nae Campos; 02/28/2023 3:48:37 PM Tacrolimus 1 MG Oral Capsule; take 1 capsule by mouth twice daily; Therapy: [id number] to (Evaluate:31Aug2023) Requested for: [id number]; Last Rx:[id number] Ordered Rx By: Sharan Ayoub; Dispense: 90 Days ; #:180 Capsule; Refill: 3;For: Immunosuppression, Liver replaced by transplant; JOSEFINA = N; Verified Transmission to [facility] #[id number]; Last Updated By: Maxine Clemons; 09/05/2022 8:39:18 AM amLODIPine Besylate 5 MG Oral Tablet; Take 1 tablet daily; Therapy: 31Jan2018 to (Evaluate:[id number]) Requested for: 28Mar2022; Last Rx:[id number] Ordered Rx By: Sharan Ayoub; Dispense: 30 Days ; #:30 Tablet; Refill: 11;For: Liver replaced by transplant; JOSEFINA = N; Verified Transmission to [facility] #[id number] Magnesium Oxide -Mg Supplement 400 (240 Mg) MG Oral Tablet; TAKE 1 TABLET BY MOUTH TWICE DAILY; Therapy: 31Jan2023 to (Evaluate:75Spg2030) Requested for: 31Jan2023; Last Rx:31Jan2023 Ordered Rx By: Marta (more content not included)... Normal [employer] Tobacco Screening.on 023 Fall risk assessment a) No falls within the last year [facility] [address] DO Work Phone: Tobacco use status [facility] b) No [facility] [address] DO Work Phone: TACROLIMUSon 04-25-2023 Tacrolimus (Bld) [Mass/Vol] 10.0 ng/mL Normal 2.0 - 15.0 [facility] Comment on above: Result Comment: NOTE : Result was obtained using a chemiluminescent microparticle immunoassay (CMIA) on the Stem Roller Or Crusher Operator i system. Optimal therapeutic ranges for immuno- suppressant drugs depend upon an individual patient's current clinical state, type of organ transplant, time post-transplant, co-administration of other immunosuppressants, and other clinical factors. The results of this test should be correlated with additional clinical and laboratory data before changes in treatment regimens are made. Performed By: #### F K506 #### [facility] [address] [place] [address] Alanine aminotransferase [En zymatic activity/volume] in Serum or PlasmaOrdered By: Sharan Ayoub on 04-24-2023 ALT [Catalytic activity/Vol] 92 U/L 7-52 [facility] Albumin [Mass/volume] in Ser um or Plasma by Bromocresol green (BCG) dye binding methoOrdered By: Sharan Ayoub on 04-24-2023 Albumin BCG dye [Mass/Vol] 3.6 g/dL 3.5-5.7 [facility] Alkaline phosphatase [Enzyma tic activity/volume] in Serum or PlasmaOrdered By: Sharan Ayoub on 04-24-2023 ALP [Catalytic activity/Vol] 213 U/L 34-104 [facility] Aspartate aminotransferase [ Enzymatic activity/volume] in Serum or PlasmaOrdered By: Sharan Ayoub on 04-24-2023 AST [Catalytic activity/Vol] 102 U/L 13-39 [facility] Basophils Auto (Bld) [#/Vol] Ordered By: Sharan Ayoub on 04-24-2023 Basophils (Bld) [#/Vol] 0.0 10*3/uL 0.0-0.2 [facility] Basophils/100 WBC Auto (Bld) Ordered By: Sharan Ayoub on 04-24-2023 Basophils/100 WBC (Bld) 0.7 % . [facility] Bilirubin.total [Mass/volume ] in Serum or PlasmaOrdered By: Shaarn Ayoub on 04-24-2023 Bilirubin [Mass/Vol] 1.5 mg/dL 0.3-1.0 [facility] Comment on above: Samples from patient s who have taken Naproxen have shown spurious elevation in Total Bilirubin levels. A metabolite of Naproxen, O-desmethylnaproxen, has been shown to interfere with the Jenlatriciaik-Uriel method for measuring Total Bilirubin. Calcium [Mass/volume] in Ser um or PlasmaOrdered By: Sharan Ayoub on 04-24-2023 Calcium [Mass/Vol] 9.0 mg/dL 8.6-10.3 [facility] Carbon dioxide, total [Moles /volume] in Serum or PlasmaOrdered By: Sharan Ayoub on 04-24-2023 CO2 [Moles/Vol] 33.4 mmol/L 21.0-31.0 [facility] Chloride [Moles/volume] in S kasi or PlasmaOrdered By: Sharan Ayoub on 04-24-2023 Chloride [Moles/Vol] 101 mmol/L 98-107 [facility] Creatinine [Mass/volume] in Serum or PlasmaOrdered By: Sharan Ayoub on 04-24-2023 Creatinine [Mass/Vol] 1.07 mg/dL 0.70-1.30 [facility] Eosinophils Auto (Bld) [#/Vo l]Ordered By: Sharan Ayoub on 04-24-2023 Eosinophils (Bld) [#/Vol] 0.1 10*3/uL 0.0-0.45 [facility] Eosinophils/100 WBC Auto (Bl d)Ordered By: Sharan Ayoub on 04-24-2023 Eosinophils/100 WBC (Bld) 1.9 % . [facility] Erythrocyte distribution wid th Auto (RBC) [Ratio]Ordered By: Sharan Ayoub on 04-24-2023 Erythrocyte distribution width (RBC) [Ratio] 13.8 % 12.0-14.8 [facility] Globulin Calc (S) [Mass/Vol] Ordered By: Sahran Ayoub on 04-24-2023 Globulin (S) [Mass/Vol] 3.6 g/dL [facility] Glucose [Mass/volume] in Ser um or PlasmaOrdered By: Sharan Ayoub on 04-24-2023 Glucose [Mass/Vol] 317 mg/dL 70-100 [facility] Comment on above: ADA recommended refe rence rangeRandom Glucose Reference Range is dependent on time and content of last meal. Glucose of more than 200 mg/dL in a nonstressed, ambulatory subject supports the diagnosis of Diabetes Mellitus. Hematocrit Auto (Bld) [Volum e fraction]Ordered By: Sharan Ayoub on 04-24-2023 Hematocrit (Bld) [Volume fraction] 41.8 % 38.8-50.0 [facility] Hemoglobin [Mass/volume] in BloodOrdered By: Sharan Ayoub on 04-24-2023 Hemoglobin (Bld) [Mass/Vol] 14.0 g/dL 13.0-17.0 [facility] Leukocytes [#/volume] correc roderick for nucleated erythrocytes in Blood by Automated counOrdered By: Sharan Ayoub on 04-24-2023 WBC corrected for nucl RBC Auto (Bld) [#/Vol] 4.5 10*3/uL 4.1-10.5 [facility] Lymphocytes Auto (Bld) [#/Vo l]Ordered By: Sharan Ayoub on 04-24-2023 Lymphocytes (Bld) [#/Vol] 1.9 10*3/uL 1.00-4.8 [facility] Lymphocytes/100 WBC Auto (Bl d)Ordered By: Sharan Ayoub on 04-24-2023 Lymphocytes/100 WBC (Bld) 42.8 % . [facility] MCH Auto (RBC) [Entitic mass ]Ordered By: Sharan Ayoub on 04-24-2023 MCH (RBC) [Entitic mass] 31.2 pg 27.5-35.2 [facility] MCHC Auto (RBC) [Mass/Vol]Or dered By: Sharan Ayoub on 04-24-2023 MCHC (RBC) [Mass/Vol] 33.4 g/dL 32.5-35.6 [facility] MCV Auto (RBC) [Entitic vol] Ordered By: Sharan Ayoub on 04-24-2023 MCV (RBC) [Entitic vol] 93.2 fL 83.5-101 [facility] Monocytes Auto (Bld) [#/Vol] Ordered By: Sharan Ayoub on 04-24-2023 Monocytes (Bld) [#/Vol] 0.4 10*3/uL 0.0-0.8 [facility] Monocytes/100 WBC Auto (Bld) Ordered By: Sharan Ayoub on 04-24-2023 Monocytes/100 WBC (Bld) 8.2 % . [facility] Neutrophils Auto (Bld) [#/Vo l]Ordered By: Sharan Ayoub on 04-24-2023 Neutrophils (Bld) [#/Vol] 2.1 10*3/uL 1.8-7.7 [facility] Neutrophils/100 WBC Auto (Bl d)Ordered By: Sharan Ayoub on 04-24-2023 Neutrophils/100 WBC (Bld) 46.4 % . [facility] No Panel InformationOrdered By: Sharan Ayoub on 04-24-2023 Estimated GFR (CKD-EPI) > 60.0 mL/Min [facility] Creatinine Clearance (Chem N/A [facility] Tacrolimus (Prograf) Level Sent to [facility] Nucleated erythrocytes [Pres ence] in Blood by Automated countOrdered By: Sharan Ayoub on 04-24-2023 Nucleated RBC Auto Ql (Bld) 0.2 /100{WBC} 0-0.5 [facility] Platelet adequacy [Presence] in Blood by Light microscopyOrdered By: Sharan Ayoub on 04-24-2023 Platelets LM Ql (Bld) Decreased Normal [facility] Platelet mean volume Auto (B ld) [Entitic vol]Ordered By: Sharan Ayoub on 04-24-2023 Platelet mean volume (Bld) [Entitic vol] 11.3 fL 6.6-10.1 [facility] Platelet morphology finding [Identifier] in BloodOrdered By: Sharan Ayoub on 04-24-2023 Platelet morphology finding Nom (Bld) N/A [facility] Platelets Auto (Bld) [#/Vol] Ordered By: Sharan Ayoub on 04-24-2023 Platelets (Bld) [#/Vol] 142 10*3/uL 150-450 [facility] Potassium [Moles/volume] in Serum or PlasmaOrdered By: Sharan Ayoub on 04-24-2023 Potassium [Moles/Vol] 4.1 mmol/L 3.5-5.1 [facility] Protein [Mass/volume] in Ser um or PlasmaOrdered By: Sharan Ayoub on 04-24-2023 Protein [Mass/Vol] 7.2 g/dL 6.4-8.9 [facility] RBC Auto (Bld) [#/Vol]Ordere d By: Sharan Ayoub on 04-24-2023 RBC (Bld) [#/Vol] 4.48 10*6/uL 3.90-5.60 [facility] RBC morphologyOrdered By: Kanu Ayoub on 04-24-2023 RBC morphology finding Nom (Bld) Normal Normal [facility] Serum or plasma albumin/glob ulin mass ratioOrdered By: Sharan Ayoub on 04-24-2023 Albumin/Globulin [Mass ratio] 1.0 {ratio} [facility] Serum or plasma anion gap de terminationOrdered By: Sharan Ayoub on 04-24-2023 Anion gap [Moles/Vol] 7.7 mmol/L 6.0-15.0 [facility] Sodium [Moles/volume] in Ser um or PlasmaOrdered By: Sharan Ayoub on 04-24-2023 Sodium [Moles/Vol] 138 mmol/L 136-145 [facility] Tacrolimuson 04-24-2023 Tacrolimus (Bld) [Mass/Vol] 10.0 ng/mL 2.0 - 15.0 [facility] [address] DO Work Phone: Comment on above: NOTE: Result was obt ained using a chemiluminescent microparticle immunoassay (CMIA) on the Stem Roller Or Crusher Operator i system.Optimal therapeutic ranges for immuno-suppressant drugs depend upon an individualpatient's current clinical state, type oforgan transplant, time post-transplant,co-administration of other immunosuppressants,and other clinical factors. The results ofthis test should be correlated with additionalclinical and laboratory data before changesin treatment regimens are made. Urea nitrogen [Mass/volume] in Serum or PlasmaOrdered By: Sharan Ayoub on 04-24-2023 Urea nitrogen [Mass/Vol] 17 mg/dL 7-25 [facility] WBC Auto (Bld) [#/Vol]Ordere d By: Sharan Ayoub on 04-24-2023 WBC (Bld) [#/Vol] 4.5 10*3/uL 4.1-10.5 [facility] TACROLIMUSon 04-04-2023 Tacrolimus (Bld) [Mass/Vol] 10.3 ng/mL Normal 2.0 - 15.0 [facility] Comment on above: Result Comment: NOTE : Result was obtained using a chemiluminescent microparticle immunoassay (CMIA) on the Stem Roller Or Crusher Operator i system. Optimal therapeutic ranges for immuno- suppressant drugs depend upon an individual patient's current clinical state, type of organ transplant, time post-transplant, co-administration of other immunosuppressants, and other clinical factors. The results of this test should be correlated with additional clinical and laboratory data before changes in treatment regimens are made. Performed By: #### F [id number] #### [facility] [id number] [place] [address] Tacrolimuson 04-03-2023 Tacrolimus (Bld) [Mass/Vol] 10.3 ng/mL 2.0 - 15.0 [facility] [address] [facility] Work Phone: Comment on above: NOTE: Result was obt ained using a chemiluminescent microparticle immunoassay (CMIA) on the Stem Roller Or Crusher Operator i system.Optimal therapeutic ranges for immuno-suppressant drugs depend upon an individualpatient's current clinical state, type oforgan transplant, time post-transplant,co-administration of other immunosuppressants,and other clinical factors. The results ofthis test should be correlated with additionalclinical and laboratory data before changesin treatment regimens are made. Alanine aminotransferase [En zymatic activity/volume] in Serum or PlasmaOrdered By: Sharan Ayoub on 03-28-2023 ALT [Catalytic activity/Vol] 93 U/L 7-52 [facility] Albumin [Mass/volume] in Ser um or Plasma by Bromocresol green (BCG) dye binding methoOrdered By: Sharan Ayoub on 03-28-2023 Albumin BCG dye [Mass/Vol] 3.6 g/dL 3.5-5.7 [facility] Alkaline phosphatase [Enzyma tic activity/volume] in Serum or PlasmaOrdered By: Sharan Ayoub on 03-28-2023 ALP [Catalytic activity/Vol] 215 U/L 34-104 [facility] Aspartate aminotransferase [ Enzymatic activity/volume] in Serum or PlasmaOrdered By: Sharan Ayoub on 03-28-2023 AST [Catalytic activity/Vol] 94 U/L 13-39 [facility] Basophils Auto (Bld) [#/Vol] Ordered By: Sharan Ayoub on 03-28-2023 Basophils (Bld) [#/Vol] N/A [facility] Basophils/100 WBC Auto (Bld) Ordered By: Sharan Ayoub on 03-28-2023 Basophils/100 WBC (Bld) N/A [facility] Basophils/100 WBC Manual cnt (Bld)Ordered By: Sharan Ayoub on 03-28-2023 Basophils/100 WBC (Bld) 1 % 0-2 [facility] Bilirubin.total [Mass/volume ] in Serum or PlasmaOrdered By: Sharan Ayoub on 03-28-2023 Bilirubin [Mass/Vol] 1.5 mg/dL 0.3-1.0 [facility] Comment on above: Samples from patient s who have taken Naproxen have shown spurious elevation in Total Bilirubin levels. A metabolite of Naproxen, O-desmethylnaproxen, has been shown to interfere with the Harlan-Uriel method for measuring Total Bilirubin. Calcium [Mass/volume] in Ser um or PlasmaOrdered By: Sharan Ayoub on 03-28-2023 Calcium [Mass/Vol] 9.0 mg/dL 8.6-10.3 [facility] Carbon dioxide, total [Moles /volume] in Serum or PlasmaOrdered By: Sharan Ayoub on 03-28-2023 CO2 [Moles/Vol] 25.8 mmol/L 21.0-31.0 [facility] Chloride [Moles/volume] in S kasi or PlasmaOrdered By: Sharan Ayoub on 03-28-2023 Chloride [Moles/Vol] 104 mmol/L 98-107 [facility] Creatinine [Mass/volume] in Serum or PlasmaOrdered By: Sharan Ayoub on 03-28-2023 Creatinine [Mass/Vol] 0.96 mg/dL 0.70-1.30 [facility] Eosinophils Auto (Bld) [#/Vo l]Ordered By: Sharan Ayoub on 03-28-2023 Eosinophils (Bld) [#/Vol] N/A [facility] Eosinophils/100 WBC Auto (Bl d)Ordered By: Sharan Ayoub on 03-28-2023 Eosinophils/100 WBC (Bld) N/A [facility] Eosinophils/100 WBC Manual c nt (Bld)Ordered By: Sharan Ayoub on 03-28-2023 Eosinophils/100 WBC (Bld) 3 % 1-3 [facility] Isaac Fair virus DNA [#/vo lume] (viral load) in Serum or Plasma by LÁZARO with probe dOrdered By: Sharan Ayoub on 03-28-2023 EBV DNA LÁZARO+probe [#/Vol] Negative Negative [facility] Comment on above: No EBV DNA detected. The linear range of this assay is 35 - 100,000,000 IU/mLPerformed at: [facility] [address] [id number] Director: Thierry Currie MD, Phone: [phone] Erythrocyte distribution wid th Auto (RBC) [Ratio]Ordered By: Sharan Ayoub on 03-28-2023 Erythrocyte distribution width (RBC) [Ratio] 13.7 % 12.0-14.8 [facility] Globulin Calc (S) [Mass/Vol] Ordered By: Sharan Ayoub on 03-28-2023 Globulin (S) [Mass/Vol] 3.3 g/dL [facility] Glucose [Mass/volume] in Ser um or PlasmaOrdered By: Sharan Ayoub on 03-28-2023 Glucose [Mass/Vol] 341 mg/dL 70-100 [facility] Comment on above: ADA recommended refe rence rangeRandom Glucose Reference Range is dependent on time and content of last meal. Glucose of more than 200 mg/dL in a nonstressed, ambulatory subject supports the diagnosis of Diabetes Mellitus. Hematocrit Auto (Bld) [Volum e fraction]Ordered By: Sharan Ayoub on 03-28-2023 Hematocrit (Bld) [Volume fraction] 42.3 % 38.8-50.0 [facility] Hemoglobin [Mass/volume] in BloodOrdered By: Sharan Ayoub on 03-28-2023 Hemoglobin (Bld) [Mass/Vol] 14.2 g/dL 13.0-17.0 [facility] Leukocytes [#/volume] correc roderick for nucleated erythrocytes in Blood by Automated counOrdered By: Sharan Ayoub on 03-28-2023 WBC corrected for nucl RBC Auto (Bld) [#/Vol] 5.4 10*3/uL 4.1-10.5 [facility] Lymphocytes Auto (Bld) [#/Vo l]Ordered By: Sharan Ayoub on 03-28-2023 Lymphocytes (Bld) [#/Vol] N/A [facility] Lymphocytes/100 WBC Auto (Bl d)Ordered By: Sharan Ayoub on 03-28-2023 Lymphocytes/100 WBC (Bld) N/A [facility] Lymphocytes/100 WBC Manual c nt (Bld)Ordered By: Sharan Ayoub on 03-28-2023 Lymphocytes/100 WBC (Bld) 38 % 18-42 [facility] MCH Auto (RBC) [Entitic mass ]Ordered By: Sharan Ayoub on 03-28-2023 MCH (RBC) [Entitic mass] 31.4 pg 27.5-35.2 [facility] MCHC Auto (RBC) [Mass/Vol]Or dered By: Sharan Ayoub on 03-28-2023 MCHC (RBC) [Mass/Vol] 33.6 g/dL 32.5-35.6 [facility] MCV Auto (RBC) [Entitic vol] Ordered By: Sharan Ayoub on 03-28-2023 MCV (RBC) [Entitic vol] 93.2 fL 83.5-101 [facility] Monocytes Auto (Bld) [#/Vol] Ordered By: Sharan Ayoub on 03-28-2023 Monocytes (Bld) [#/Vol] N/A [facility] Monocytes/100 WBC Auto (Bld) Ordered By: Sharan Ayoub on 03-28-2023 Monocytes/100 WBC (Bld) N/A [facility] Monocytes/100 WBC Manual cnt (Bld)Ordered By: Sharan Ayoub on 03-28-2023 Monocytes/100 WBC (Bld) 6 % 2-11 [facility] Neutrophils Auto (Bld) [#/Vo l]Ordered By: Sharan Ayoub on 03-28-2023 Neutrophils (Bld) [#/Vol] N/A [facility] Neutrophils/100 WBC Auto (Bl d)Ordered By: Sharan Ayoub on 03-28-2023 Neutrophils/100 WBC (Bld) N/A [facility] No Panel InformationOrdered By: Sharan Ayoub on 03-28-2023 Isaac-Fair Quant PCR Plasma log10 N/A [facility] Estimated GFR (CKD-EPI) > 60.0 mL/Min [facility] Creatinine Clearance (Chem N/A [facility] Tacrolimus (Prograf) Level Sent to [facility] Nucleated erythrocytes [Pres ence] in Blood by Automated countOrdered By: Sharan Ayoub on 03-28-2023 Nucleated RBC Auto Ql (Bld) N/A [facility] Platelet adequacy [Presence] in Blood by Light microscopyOrdered By: Sharan Ayoub on 03-28-2023 Platelets LM Ql (Bld) Normal Normal [facility] Platelet mean volume Auto (B ld) [Entitic vol]Ordered By: Sharan Ayoub on 03-28-2023 Platelet mean volume (Bld) [Entitic vol] 11.2 fL 6.6-10.1 [facility] Platelet morphology finding [Identifier] in BloodOrdered By: Sharan Ayoub on 03-28-2023 Platelet morphology finding Nom (Bld) N/A [facility] Platelets Auto (Bld) [#/Vol] Ordered By: Sharan Ayoub on 03-28-2023 Platelets (Bld) [#/Vol] 157 10*3/uL 150-450 [facility] Potassium [Moles/volume] in Serum or PlasmaOrdered By: Sharan Ayoub on 03-28-2023 Potassium [Moles/Vol] 3.7 mmol/L 3.5-5.1 [facility] Protein [Mass/volume] in Ser um or PlasmaOrdered By: Sharan Ayoub on 03-28-2023 Protein [Mass/Vol] 6.9 g/dL 6.4-8.9 [facility] RBC Auto (Bld) [#/Vol]Ordere d By: Sharan Ayoub on 03-28-2023 RBC (Bld) [#/Vol] 4.54 10*6/uL 3.90-5.60 [facility] RBC morphologyOrdered By: Kanu Ayoub on 03-28-2023 RBC morphology finding Nom (Bld) N/A [facility] Red blood cell stomatocyte d etectionOrdered By: Sharan Ayoub on 03-28-2023 Stomatocytes LM Ql (Bld) Slight [facility] Segmented neutrophils/100 WB C Manual cnt (Bld)Ordered By: Sharan Ayoub on 03-28-2023 Segmented neutrophils/100 WBC (Bld) 50 % 50-70 [facility] Serum or plasma albumin/glob ulin mass ratioOrdered By: Sharan Ayoub on 03-28-2023 Albumin/Globulin [Mass ratio] 1.1 {ratio} [facility] Serum or plasma anion gap de terminationOrdered By: Sharan Ayoub on 03-28-2023 Anion gap [Moles/Vol] 11.9 mmol/L 6.0-15.0 [facility] Sodium [Moles/volume] in Ser um or PlasmaOrdered By: Sharan Ayoub on 03-28-2023 Sodium [Moles/Vol] 138 mmol/L 136-145 [facility] Toxic leukocyte vacuolation detectionOrdered By: Sharan Ayoub on 03-28-2023 Leukocyte toxic vacuoles LM Ql (Bld) Slight [facility] Urea nitrogen [Mass/volume] in Serum or PlasmaOrdered By: Sharan Ayoub on 03-28-2023 Urea nitrogen [Mass/Vol] 16 mg/dL 7-25 [facility] Variant lymphocytes/100 WBC Manual cnt (Bld)Ordered By: Sharan Ayoub on 03-28-2023 Variant lymphocytes/100 WBC (Bld) 2 % 0-12 [facility] WBC Auto (Bld) [#/Vol]Ordere d By: Sharan Ayoub on 03-28-2023 WBC (Bld) [#/Vol] 5.4 10*3/uL 4.1-10.5 [facility] TACROLIMUSon 03-18-2023 Tacrolimus (Bld) [Mass/Vol] 11.5 ng/mL Normal 2.0 - 15.0 [facility] Comment on above: Result Comment: NOTE : Result was obtained using a chemiluminescent microparticle immunoassay (CMIA) on the Stem Roller Or Crusher Operator i system. Optimal therapeutic ranges for immuno- suppressant drugs depend upon an individual patient's current clinical state, type of organ transplant, time post-transplant, co-administration of other immunosuppressants, and other clinical factors. The results of this test should be correlated with additional clinical and laboratory data before changes in treatment regimens are made. Performed By: #### F [id number] #### [facility] [id number] [place] [address] Alanine aminotransferase [En zymatic activity/volume] in Serum or PlasmaOrdered By: Sharan Ayoub on 03-17-2023 ALT [Catalytic activity/Vol] 80 U/L 7-52 [facility] Albumin [Mass/volume] in Ser um or Plasma by Bromocresol green (BCG) dye binding methoOrdered By: Sharan Ayoub on 03-17-2023 Albumin BCG dye [Mass/Vol] 3.8 g/dL 3.5-5.7 [facility] Alkaline phosphatase [Enzyma tic activity/volume] in Serum or PlasmaOrdered By: Sharan Ayoub on 03-17-2023 ALP [Catalytic activity/Vol] 208 U/L 34-104 [facility] Aspartate aminotransferase [ Enzymatic activity/volume] in Serum or PlasmaOrdered By: Sharan Ayoub on 03-17-2023 AST [Catalytic activity/Vol] 63 U/L 13-39 [facility] Basophils Auto (Bld) [#/Vol] Ordered By: Sharan Ayoub on 03-17-2023 Basophils (Bld) [#/Vol] 0.1 10*3/uL 0.0-0.2 [facility] Basophils/100 WBC Auto (Bld) Ordered By: Sharan Ayoub on 03-17-2023 Basophils/100 WBC (Bld) 1.4 % . [facility] Bilirubin.total [Mass/volume ] in Serum or PlasmaOrdered By: Sharan Ayoub on 03-17-2023 Bilirubin [Mass/Vol] 1.6 mg/dL 0.3-1.0 [facility] Comment on above: Samples from patient s who have taken Naproxen have shown spurious elevation in Total Bilirubin levels. A metabolite of Naproxen, O-desmethylnaproxen, has been shown to interfere with the Harlan-Uriel method for measuring Total Bilirubin. Calcium [Mass/volume] in Ser um or PlasmaOrdered By: Sharan Ayoub on 03-17-2023 Calcium [Mass/Vol] 9.1 mg/dL 8.6-10.3 [facility] Carbon dioxide, total [Moles /volume] in Serum or PlasmaOrdered By: Sharan Ayoub on 03-17-2023 CO2 [Moles/Vol] 31.4 mmol/L 21.0-31.0 [facility] Chloride [Moles/volume] in S kasi or PlasmaOrdered By: Sharan Ayoub on 03-17-2023 Chloride [Moles/Vol] 101 mmol/L 98-107 [facility] Creatinine [Mass/volume] in Serum or PlasmaOrdered By: Sharan Ayoub on 03-17-2023 Creatinine [Mass/Vol] 0.94 mg/dL 0.70-1.30 [facility] Eosinophils Auto (Bld) [#/Vo l]Ordered By: Sharan Ayoub on 03-17-2023 Eosinophils (Bld) [#/Vol] 0.1 10*3/uL 0.0-0.45 [facility] Eosinophils/100 WBC Auto (Bl d)Ordered By: Sharan Ayoub on 03-17-2023 Eosinophils/100 WBC (Bld) 2.0 % . [facility] Erythrocyte distribution wid th Auto (RBC) [Ratio]Ordered By: Sharan Ayoub on 03-17-2023 Erythrocyte distribution width (RBC) [Ratio] 13.7 % 12.0-14.8 [facility] Globulin Calc (S) [Mass/Vol] Ordered By: Sharan Ayoub on 03-17-2023 Globulin (S) [Mass/Vol] 3.1 g/dL [facility] Glucose [Mass/volume] in Ser um or PlasmaOrdered By: Sharan Ayoub on 03-17-2023 Glucose [Mass/Vol] 276 mg/dL 70-100 [facility] Comment on above: ADA recommended refe rence rangeRandom Glucose Reference Range is dependent on time and content of last meal. Glucose of more than 200 mg/dL in a nonstressed, ambulatory subject supports the diagnosis of Diabetes Mellitus. Hematocrit Auto (Bld) [Volum e fraction]Ordered By: Sharan Ayoub on 03-17-2023 Hematocrit (Bld) [Volume fraction] 39.0 % 38.8-50.0 [facility] Hemoglobin [Mass/volume] in BloodOrdered By: Sharan Ayoub on 03-17-2023 Hemoglobin (Bld) [Mass/Vol] 13.2 g/dL 13.0-17.0 [facility] Leukocytes [#/volume] correc roderick for nucleated erythrocytes in Blood by Automated counOrdered By: Sharan Ayoub on 03-17-2023 WBC corrected for nucl RBC Auto (Bld) [#/Vol] 4.7 10*3/uL 4.1-10.5 [facility] Lymphocytes Auto (Bld) [#/Vo l]Ordered By: Sharan Ayoub on 03-17-2023 Lymphocytes (Bld) [#/Vol] 1.7 10*3/uL 1.00-4.8 [facility] Lymphocytes/100 WBC Auto (Bl d)Ordered By: Sharan Ayoub on 03-17-2023 Lymphocytes/100 WBC (Bld) 36.8 % . [facility] MCH Auto (RBC) [Entitic mass ]Ordered By: Sharan Ayoub on 03-17-2023 MCH (RBC) [Entitic mass] 31.4 pg 27.5-35.2 [facility] MCHC Auto (RBC) [Mass/Vol]Or dered By: Sharan Ayoub on 03-17-2023 MCHC (RBC) [Mass/Vol] 33.8 g/dL 32.5-35.6 [facility] MCV Auto (RBC) [Entitic vol] Ordered By: Sharan Ayoub on 03-17-2023 MCV (RBC) [Entitic vol] 92.9 fL 83.5-101 [facility] Monocytes Auto (Bld) [#/Vol] Ordered By: Sharan Ayoub on 03-17-2023 Monocytes (Bld) [#/Vol] 0.4 10*3/uL 0.0-0.8 [facility] Monocytes/100 WBC Auto (Bld) Ordered By: Sharan Ayoub on 03-17-2023 Monocytes/100 WBC (Bld) 8.8 % . [facility] Neutrophils Auto (Bld) [#/Vo l]Ordered By: Sharan Ayoub on 03-17-2023 Neutrophils (Bld) [#/Vol] 2.4 10*3/uL 1.8-7.7 [facility] Neutrophils/100 WBC Auto (Bl d)Ordered By: Sharan Ayoub on 03-17-2023 Neutrophils/100 WBC (Bld) 51.0 % . [facility] No Panel InformationOrdered By: Sharan Ayoub on 03-17-2023 Estimated GFR (CKD-EPI) > 60.0 mL/Min [facility] Creatinine Clearance (Chem N/A [facility] Tacrolimus (Prograf) Level Sent to [facility] Nucleated erythrocytes [Pres ence] in Blood by Automated countOrdered By: Sharan Ayoub on 03-17-2023 Nucleated RBC Auto Ql (Bld) 0.0 /100{WBC} 0-0.5 [facility] Platelet adequacy [Presence] in Blood by Light microscopyOrdered By: Sharan Ayoub on 03-17-2023 Platelets LM Ql (Bld) Normal Normal [facility] Platelet mean volume Auto (B ld) [Entitic vol]Ordered By: Sharan Ayoub on 03-17-2023 Platelet mean volume (Bld) [Entitic vol] 11.5 fL 6.6-10.1 [facility] Platelet morphology finding [Identifier] in BloodOrdered By: Sharan Ayoub on 03-17-2023 Platelet morphology finding Nom (Bld) Normal Normal [facility] Platelets Auto (Bld) [#/Vol] Ordered By: Sharan Ayoub on 03-17-2023 Platelets (Bld) [#/Vol] 145 10*3/uL 150-450 [facility] Potassium [Moles/volume] in Serum or PlasmaOrdered By: Sharan Ayoub on 03-17-2023 Potassium [Moles/Vol] 4.2 mmol/L 3.5-5.1 [facility] Protein [Mass/volume] in Ser um or PlasmaOrdered By: Sharan Ayoub on 03-17-2023 Protein [Mass/Vol] 6.9 g/dL 6.4-8.9 [facility] RBC Auto (Bld) [#/Vol]Ordere d By: Sharan Ayoub on 03-17-2023 RBC (Bld) [#/Vol] 4.19 10*6/uL 3.90-5.60 [facility] RBC morphologyOrdered By: Kanu Ayoub on 03-17-2023 RBC morphology finding Nom (Bld) Normal Normal [facility] Serum or plasma albumin/glob ulin mass ratioOrdered By: Sharan Ayoub on 03-17-2023 Albumin/Globulin [Mass ratio] 1.2 {ratio} [facility] Serum or plasma anion gap de terminationOrdered By: Sharan Ayoub on 03-17-2023 Anion gap [Moles/Vol] 9.8 mmol/L 6.0-15.0 [facility] Sodium [Moles/volume] in Ser um or PlasmaOrdered By: Sharan Ayoub on 03-17-2023 Sodium [Moles/Vol] 138 mmol/L 136-145 [facility] Tacrolimuson 03-17-2023 Tacrolimus (Bld) [Mass/Vol] 11.5 ng/mL 2.0 - 15.0 [facility] [address] Work Phone: Comment on above: NOTE: Result was obt ained using a chemiluminescent microparticle immunoassay (CMIA) on the Stem Roller Or Crusher Operator i system.Optimal therapeutic ranges for immuno-suppressant drugs depend upon an individualpatient's current clinical state, type oforgan transplant, time post-transplant,co-administration of other immunosuppressants,and other clinical factors. The results ofthis test should be correlated with additionalclinical and laboratory data before changesin treatment regimens are made. Urea nitrogen [Mass/volume] in Serum or PlasmaOrdered By: Sharan Ayoub on 03-17-2023 Urea nitrogen [Mass/Vol] 15 mg/dL 04-25 [facility] WBC Auto (Bld) [#/Vol]Ordere d By: Sharan Ayoub on 03-17-2023 WBC (Bld) [#/Vol] 4.7 10*3/uL 4.1-10.5 [facility] TACROLIMUSon 02-21-2023 Tacrolimus (Bld) [Mass/Vol] 8.9 ng/mL Normal 2.0 - 15.0 [facility] Comment on above: Result Comment: NOTE : Result was obtained using a chemiluminescent microparticle immunoassay (CMIA) on the Stem Roller Or Crusher Operator i system. Optimal therapeutic ranges for immuno- suppressant drugs depend upon an individual patient's current clinical state, type of organ transplant, time post-transplant, co-administration of other immunosuppressants, and other clinical factors. The results of this test should be correlated with additional clinical and laboratory data before changes in treatment regimens are made. Performed By: #### F [id number] #### [facility] [id number] [place] [address] Alanine aminotransferase [En zymatic activity/volume] in Serum or PlasmaOrdered By: Sharan Ayoub on 02-20-2023 ALT [Catalytic activity/Vol] 108 U/L [facility] Albumin [Mass/volume] in Ser um or Plasma by Bromocresol green (BCG) dye binding methoOrdered By: Sharan Ayoub on 02-20-2023 Albumin BCG dye [Mass/Vol] 3.6 g/dL 3.5-5.7 [facility] Alkaline phosphatase [Enzyma tic activity/volume] in Serum or PlasmaOrdered By: Sharan Ayoub on 02-20-2023 ALP [Catalytic activity/Vol] 219 U/L 34-104 [facility] Aspartate aminotransferase [ Enzymatic activity/volume] in Serum or PlasmaOrdered By: Sharan Ayoub on 02-20-2023 AST [Catalytic activity/Vol] 92 U/L 13-39 [facility] Basophils Auto (Bld) [#/Vol] Ordered By: Sharan Ayoub on 02-20-2023 Basophils (Bld) [#/Vol] 0.1 10*3/uL 0.0-0.2 [facility] Basophils/100 WBC Auto (Bld) Ordered By: Sharan Ayoub on 02-20-2023 Basophils/100 WBC (Bld) 1.1 % . [facility] Bilirubin.total [Mass/volume ] in Serum or PlasmaOrdered By: Sharan Ayoub on 02-20-2023 Bilirubin [Mass/Vol] 1.2 mg/dL 0.3-1.0 [facility] Calcium [Mass/volume] in Ser um or PlasmaOrdered By: Sharan Ayoub on 02-20-2023 Calcium [Mass/Vol] 9.0 mg/dL 8.6-10.3 [facility] Carbon dioxide, total [Moles /volume] in Serum or PlasmaOrdered By: Sharan Ayoub on 02-20-2023 CO2 [Moles/Vol] 29.8 mmol/L 21.0-31.0 [facility] Chloride [Moles/volume] in S kasi or PlasmaOrdered By: Sharan Ayoub on 02-20-2023 Chloride [Moles/Vol] 101 mmol/L 98-107 [facility] Creatinine [Mass/volume] in Serum or PlasmaOrdered By: Sharan Ayoub on 02-20-2023 Creatinine [Mass/Vol] 0.93 mg/dL 0.70-1.30 [facility] Cytomegalovirus DNA [Units/v olume] (viral load) in Plasma by LÁZARO with probe detectionOrdered By: Sharan Ayoub on 02-20-2023 CMV DNA LÁZARO+probe Qn (P) Negative Negative [facility] Comment on above: No CMV DNA detected. The quantitative range of this assay is 200 to 1 millionIU/mL. Eosinophils Auto (Bld) [#/Vo l]Ordered By: Sharan Ayoub on 02-20-2023 Eosinophils (Bld) [#/Vol] 0.0 10*3/uL 0.0-0.45 [facility] Eosinophils/100 WBC Auto (Bl d)Ordered By: Sharan Ayoub on 02-20-2023 Eosinophils/100 WBC (Bld) 0.6 % . [facility] Erythrocyte distribution wid th Auto (RBC) [Ratio]Ordered By: Sharan Ayoub on 02-20-2023 Erythrocyte distribution width (RBC) [Ratio] 13.5 % 12.0-14.8 [facility] Gamma glutamyl transferase [ Enzymatic activity/volume] in Serum or PlasmaOrdered By: Sharan Ayoub on 02-20-2023 Gamma glutamyl transferase [Catalytic activity/Vol] 719 U/L 9-64 [facility] Globulin Calc (S) [Mass/Vol] Ordered By: Sharan Ayoub on 02-20-2023 Globulin (S) [Mass/Vol] 3.3 g/dL [facility] Glucose [Mass/volume] in Ser um or PlasmaOrdered By: Sharan Ayoub on 02-20-2023 Glucose [Mass/Vol] 189 mg/dL 70-100 [facility] Comment on above: ADA recommended refe rence rangeRandom Glucose Reference Range is dependent on time and content of last meal. Glucose of more than 200 mg/dL in a nonstressed, ambulatory subject supports the diagnosis of Diabetes Mellitus. Hematocrit Auto (Bld) [Volum e fraction]Ordered By: Sharan Ayoub on 02-20-2023 Hematocrit (Bld) [Volume fraction] 42.0 % 38.8-50.0 [facility] Hemoglobin [Mass/volume] in BloodOrdered By: Sharan Ayoub on 02-20-2023 Hemoglobin (Bld) [Mass/Vol] 14.0 g/dL 13.0-17.0 [facility] Leukocytes [#/volume] correc roderick for nucleated erythrocytes in Blood by Automated counOrdered By: Sharan Ayoub on 02-20-2023 WBC corrected for nucl RBC Auto (Bld) [#/Vol] 6.2 10*3/uL 4.1-10.5 [facility] Lymphocytes Auto (Bld) [#/Vo l]Ordered By: Sharan Ayoub on 02-20-2023 Lymphocytes (Bld) [#/Vol] 1.9 10*3/uL 1.00-4.8 [facility] Lymphocytes/100 WBC Auto (Bl d)Ordered By: Sharan Ayoub on 02-20-2023 Lymphocytes/100 WBC (Bld) 31.3 % . [facility] MCH Auto (RBC) [Entitic mass ]Ordered By: Sharan Ayoub on 02-20-2023 MCH (RBC) [Entitic mass] 30.8 pg 27.5-35.2 [facility] MCHC Auto (RBC) [Mass/Vol]Or dered By: Sharan Ayoub on 02-20-2023 MCHC (RBC) [Mass/Vol] 33.3 g/dL 32.5-35.6 [facility] MCV Auto (RBC) [Entitic vol] Ordered By: Sharan Ayoub on 02-20-2023 MCV (RBC) [Entitic vol] 92.6 fL 83.5-101 [facility] Monocytes Auto (Bld) [#/Vol] Ordered By: Sharan Ayoub on 02-20-2023 Monocytes (Bld) [#/Vol] 0.4 10*3/uL 0.0-0.8 [facility] Monocytes/100 WBC Auto (Bld) Ordered By: Sharan Ayoub on 02-20-2023 Monocytes/100 WBC (Bld) 6.7 % . [facility] Neutrophils Auto (Bld) [#/Vo l]Ordered By: Sharan Ayoub on 02-20-2023 Neutrophils (Bld) [#/Vol] 3.8 10*3/uL 1.8-7.7 [facility] Neutrophils/100 WBC Auto (Bl d)Ordered By: Sharan Ayoub on 02-20-2023 Neutrophils/100 WBC (Bld) 60.3 % . [facility] No Panel InformationOrdered By: Sharan Ayoub on 02-20-2023 Tacrolimus (Prograf) Level Sent to [facility] CMV DNA Quant PCR log IU/mL See comment . [facility] Comment on above: Result Units: log10 IU/mLUnable to calculate result since non-numeric resultobtained for component test.Performed at: [facility] [address] [id number] Director: Thierry Currie MD, Phone: [phone] Isaac-Fair DNA, Quant (PCR) log10 3.759 . [facility] Comment on above: Result Units: log10c opy/mLPerformed at: [facility] [address] [id number] Director: Thierry Currie MD, Phone: [phone] Estimated GFR (CKD-EPI) > 60.0 mL/Min [facility] Creatinine Clearance (Chem N/A [facility] Nucleated erythrocytes [Pres ence] in Blood by Automated countOrdered By: Sharan Ayoub on 02-20-2023 Nucleated RBC Auto Ql (Bld) 0.1 /100{WBC} 0-0.5 [facility] Platelet mean volume Auto (B ld) [Entitic vol]Ordered By: Sharan Ayoub on 02-20-2023 Platelet mean volume (Bld) [Entitic vol] 10.1 fL 6.6-10.1 [facility] Platelets Auto (Bld) [#/Vol] Ordered By: Sharan Ayoub on 02-20-2023 Platelets (Bld) [#/Vol] 162 10*3/uL 150-450 [facility] Potassium [Moles/volume] in Serum or PlasmaOrdered By: Sharan Ayoub on 02-20-2023 Potassium [Moles/Vol] 4.3 mmol/L 3.5-5.1 [facility] Protein [Mass/volume] in Ser um or PlasmaOrdered By: Sharan Ayoub on 02-20-2023 Protein [Mass/Vol] 6.9 g/dL 6.4-8.9 [facility] RBC Auto (Bld) [#/Vol]Ordere d By: Sharan Ayoub on 02-20-2023 RBC (Bld) [#/Vol] 4.53 10*6/uL 3.90-5.60 [facility] Serum Isaac Fair virus cap rosemary IgG antibody assay (units/volume)Ordered By: Sharan Ayoub on 02-20-2023 EBV capsid IgG Qn (S) [arb'U]/mL 0.0-17.9 [facility] Comment on above: Negative <18.0 Equiv ocal 18.0 - 21.9 Positive >21.9 EBV capsid IgG Qn (S) [arb'U]/mL 0.0-35.9 [facility] Comment on above: Negative <36.0 Equiv ocal 36.0 - 43.9 Positive >43.9 Serum Isaac Fair virus nuc lear IgG antibody assay (units/volume)Ordered By: Sharan Ayoub on 02-20-2023 EBV nuclear IgG Qn (S) 48.3 U/mL 0.0-17.9 [facility] Comment on above: Negative <18.0 Equiv ocal 18.0 - 21.9 Positive >21.9 Serum cytomegalovirus IgG an tibody assay by immunoassay (units/volume)Ordered By: Sharan Ayoub on 02-20-2023 CMV IgG IA Qn >10.00 U/mL 0.00-0.59 [facility] Comment on above: Negative <0.60 Equiv ocal 0.60 - 0.69 Positive >0.69 Serum cytomegalovirus IgM an tibody assay by immunoassay (units/volume)Ordered By: Sharan Ayoub on 02-20-2023 CMV IgM IA Qn <30.0 AU/mL 0.0-29.9 [facility] Comment on above: Negative <30.0 Equiv ocal 30.0 - 34.9 Positive >34.9A positive result is generally indicative of acuteinfection, reactivation or persistent IgM production.Performed at: - [facility] [id number] Director: Surendra Hall PhD, Phone: [phone] Serum or plasma albumin/glob ulin mass ratioOrdered By: Sharan Ayoub on 02-20-2023 Albumin/Globulin [Mass ratio] 1.1 {ratio} [facility] Serum or plasma anion gap de terminationOrdered By: Sharan Ayoub on 02-20-2023 Anion gap [Moles/Vol] 10.5 mmol/L 6.0-15.0 [facility] Service commentOrdered By: Misha Ayoub on 02-20-2023 Service comment (Unsp spec) [Interp] See comment . [facility] Comment on above: EBV Interpretation C hartKey: Antibody Present + Antibody Absent -Interpretation VCA-IgM VCA-IgG EBNA-IgGNo previous infection/ - - -SusceptiblePrimary infection (new + + -or recent)Past Infection +or- + +See comment below* + - -*Results indicate infection with EBV at some time however cannot predict the timing of the infection since antibodies to EBNA usually develop after primary infection or, alternatively, approximately 5-10% of patients with EBV never develop antibodies to EBNA.Performed at: [facility] [id number] Director: Surendra Hall PhD, Phone: [phone] Sodium [Moles/volume] in Ser um or PlasmaOrdered By: Sharan Ayoub on 02-20-2023 Sodium [Moles/Vol] 137 mmol/L 136-145 [facility] Tacrolimuson 02-20-2023 Tacrolimus (Bld) [Mass/Vol] 8.9 ng/mL 2.0 - 15.0 [facility] [address] [facility] Work Phone: Comment on above: NOTE: Result was obt ained using a chemiluminescent microparticle immunoassay (CMIA) on the Stem Roller Or Crusher Operator i system.Optimal therapeutic ranges for immuno-suppressant drugs depend upon an individualpatient's current clinical state, type oforgan transplant, time post-transplant,co-administration of other immunosuppressants,and other clinical factors. The results ofthis test should be correlated with additionalclinical and laboratory data before changesin treatment regimens are made. Urea nitrogen [Mass/volume] in Serum or PlasmaOrdered By: Sharan Ayoub on 02-20-2023 Urea nitrogen [Mass/Vol] 15 mg/dL 7-25 [facility] WBC Auto (Bld) [#/Vol]Ordere d By: Sharan Ayoub on 02-20-2023 WBC (Bld) [#/Vol] 6.2 10*3/uL 4.1-10.5 [facility] Whole blood quantitative Eps tein-Fair virus (EBV) DNA assay by PCROrdered By: Sharan Ayoub on 02-20-2023 EBV DNA LÁZARO+probe (Bld) [#/Vol] 5743 copies/mL Negative [facility] Comment on above: The quantitative ran ge of this assay is 100 to 1 millioncopies/mL.This test was developed and its performance characteristicsdetermined by [employer]. It has not been cleared or approvedby the Food and Drug Administration. The FDA hasdetermined that such clearance or approval is notnecessary. SURGICAL PATHOLOGY RESULTSon 02-16-2023 Pathology Report Name JESSICA GIRON Pathologist: CRISSY WILSON M.D., PhD. Date of Procedure: 02/03/2023 Date Received: 02/03/2023 Date Reported 02/16/2023 Submitting Physician: SWAPNA TOMLINSON MD Location: 0RAD Copy To/Referring/Attending: SHARAN AYOBU MD Other External # Procedures/Addenda Present FINAL DIAGNOSIS A. LIVER RANDOM BIOPSY: -- LIVER TISSUE WITH MILD PORTAL INFLAMMATION, PROMINENT KUPFFER CELL , AND LOBULAR LYMPHOCYTIC INFILTRATE Note: Per clinical note on January 26, 2023, patient's ALT and GGT are elevated. The portal tracts are slightly expanded with chronic inflammatory cells, patchy mild bile duct injury, and no endotheliitis. The lobules demonstrate prominent Kupffer cells, scattered sinusoidal lymphocytic infiltrates, and small foci of lobular inflammation. Focal central venular inflammation is also present. No cholestasis or hepatocellular necrosis is seen. The findings are not specific, and medication effect and viral infection such as CMV should be included in the differential diagnosis. Electronically Signed Out By CRISSY WILSON M.D., PhD./WLI By the signature on this report, the individual or group listed as making the Final Interpretation/Diagnosis certifies that they have reviewed this case. Diagnostic interpretation performed at [facility] [address] [facility] [address] Addendum/Procedures: Addendum Date Ordered: 02/21/2023 Status: Signed Out Date Complete: 02/21/2023 Date Reported: 02/21/2023 Addendum Diagnosis In Situ Hybridization for NISHI is negative.A. By the signature on this report, the individual or group listed as making the Final Interpretation/Diagnosis certifies that they have reviewed this case. Addendum signed out at [address] [facility] [address]. Addendum Date Ordered: 05/15/2023 Status: Signed Out Date Complete: 05/15/2023 Date Reported: 05/15/2023 Addendum Diagnosis Immunostains for CMV and HSV demonstrate no viral inclusions. By the signature on this report, the individual or group listed as making the Final Interpretation/Diagnosis certifies that they have reviewed this case. Addendum signed out at [facility] [address] [facility] [address]. Clinical History: Liver transplant April 2016 Specimens Submitted As: A: LIVER RANDOM Gross Description: Received in formalin, labeled with the patient's name and hospital number, is a cylindrical segment of red-stevenson friable soft tissue measuring 1.1 in length and <0.1 in diameter cm. The specimen is submitted in toto in one cassette. DMB dmb/02/03/2023 The assays/tests were performed with appropriate positive and negative controls which stained appropriately.One or more of the reagents used to perform assays on this specimen MAY have contained components considered to be Laboratory Developed Tests (LDT). LDT's have not been cleared or approved by the U.S. Food and Drug Administration. These assays/tests were developed and their performance characteristics determined by the Department of Pathology Immunohistochemistry Labs at [facility]. The FDA does not require this test to go through premarket FDA review. This test is used for clinical purposes. It should not be regarded as investigational or for research. This laboratory is certified under the Clinical Laboratory Improvement Amendments (CLIA) as qualified to perform high complexity clinical laboratory testing. The assays/tests were performed with appropriate positive and negative controls which stained appropriately. [facility] Department of Pathology [address] [place] [id number] [place] [address] [place] Guidance for biopsy of Ami mattson 02-04-2023 Status post ultrasou nd guided core needle biopsy of transplanted liver. Specimen(s) Sent to pathology. I was present for and/or performed the critical portions of the procedure and immediately available throughout the entire procedure. I personally reviewed the image(s) / study and interpretation. I agree with the findings as stated. Performed and dictated at [facility]. [facility] Interpreted By: ТАТЬЯНА EID MD and BUSHRA BARCENAS MD Patient Name: LULY GIRON STUDY: US BIOPSY LIVER PER; 02/03/2023 8:33 am INDICATION: s/p liver transplant, elevated LFT's, ultrasound last week normal Z94.4: Liver replaced by transplant R79.89: Elevated LFTs. COMPARISON: None. ACCESSION NUMBER(S): [id number] ORDERING CLINICIAN: SHARAN AYOUB TECHNIQUE: INTERVENTIONALIST(S): Dr. Татьяна Eid (attending) Dr. Swapna Tomlinson (resident) CONSENT: The patient was informed of the nature of the proposed procedure. The purposes, alternatives, risks, and benefits were explained and discussed. All questions were answered and consent was obtained. SEDATION: Moderate conscious IV sedation services (supervision of administration, induction, and maintenance) were provided by the physician performing the procedure with intravenous fentanyl 50 mcg and versed 2 mg for 15 minutes. The physician was assisted by an independent trained observer, an interventional radiology nurse, in the continuous monitoring of patient level of consciousness and physiologic status. MEDICATION/CONTRAST: No additional. TIME OUT: A time out was performed immediately prior to procedure start with the interventional team, correctly identifying the patient name, date of , MRN, procedure, anatomy (including marking of site and side), patient position, procedure consent form, relevant laboratory and imaging test results, antibiotic administration, safety precautions, and procedure-specific equipment needs. COMPLICATIONS: No immediate adverse events identified. FINDINGS: The patient was placed in the supine position and the area of concern was prepped and draped under sterile technique. Limited sonographic images of the transplanted liver where obtained for purposes of needle guidance. 1% lidocaine was injected subcutaneously and then into the deeper tissues surrounding the targeted area for biopsy. A 17 gauge coaxial introducer was advanced to the hepatic margin, and three core samples were obtained with 18 gauge automated cutting needle via coaxial system. Postprocedure images demonstrate no evidence for hemorrhage. The patient tolerated the procedure well and there were no immediate complications. Specimen(s) sent to pathology. [facility] Татьяна Eid MD - 02/04/2023 Interpreted By: ТАТЬЯНА EID MD and BUSHRA BARCENAS MD Patient Name: LULY GIRON STUDY: US BIOPSY LIVER PER; 02/03/2023 8:33 am INDICATION: s/p liver transplant, elevated LFT's, ultrasound last week normal Z94.4: Liver replaced by transplant R79.89: Elevated LFTs. COMPARISON: None. ACCESSION NUMBER(S): [id number] ORDERING CLINICIAN: SHARAN AYOUB TECHNIQUE: INTERVENTIONALIST(S): Dr. Татьяна Eid (attending) Dr. Swapna Tomlinson (resident) CONSENT: The patient was informed of the nature of the proposed procedure. The purposes, alternatives, risks, and benefits were explained and discussed. All questions were answered and consent was obtained. SEDATION: Moderate conscious IV sedation services (supervision of administration, induction, and maintenance) were provided by the physician performing the procedure with intravenous fentanyl 50 mcg and versed 2 mg for 15 minutes. The physician was assisted by an independent trained observer, an interventional radiology nurse, in the continuous monitoring of patient level of consciousness and physiologic status. MEDICATION/CONTRAST: No additional. TIME OUT: A time out was performed immediately prior to procedure start with the interventional team, correctly identifying the patient name, date of , MRN, procedure, anatomy (including marking of site and side), patient position, procedure consent form, relevant laboratory and imaging test results, antibiotic administration, safety precautions, and procedure-specific equipment needs. COMPLICATIONS: No immediate adverse events identified. FINDINGS: The patient was placed in the supine position and the area of concern was prepped and draped under sterile technique. Limited sonographic images of the transplanted liver where obtained for purposes of needle guidance. 1% lidocaine was injected subcutaneously and then into the deeper tissues surrounding the targeted area for biopsy. A 17 gauge coaxial introducer was advanced to the hepatic margin, and three core samples were obtained with 18 gauge automated cutting needle via coaxial system. Postprocedure images demonstrate no evidence for hemorrhage. The patient tolerated the procedure well and there were no immediate complications. Specimen(s) sent to pathology. IMPRESSION: Status post ultrasound guided core needle biopsy of transplanted liver. Specimen(s) Sent to pathology. I was present for and/or performed the critical portions of the procedure and immediately available throughout the entire procedure. I personally reviewed the image(s) / study and interpretation. I agree with the findings as stated. Performed and dictated at [facility]. [facility] Work Phone: [place] Guidance for biopsy of Li Jasvirered By: Татьяна Eid on 02-04-2023 [facility] Work Phone: No Panel Informationon 02-03 [facility] [address] Work Phone: Radiologyon 02-03-2023 [place] Guidance for fine needle aspiration of Liver Normal [facility] [address] I Work Phone: [facility] Surgical Pathology Depar tmenton 02-03-2023 [facility] Surgical Pathology Department Name LULY GIRON Pathologist: CRISSY WILSON M.D., PhD. Date of Procedure: 02/03/2023 Date Received: 02/03/2023 Date Reported 02/16/2023 Submitting Physician: SWAPNA TOMLINSON MD Location: 0RAD Copy To/Referring/Attending: SHARAN AYOUB MD Other External # Procedures/Addenda Present FINAL DIAGNOSIS A. LIVER RANDOM BIOPSY: -- LIVER TISSUE WITH MILD PORTAL INFLAMMATION, PROMINENT KUPFFER CELL , AND LOBULAR LYMPHOCYTIC INFILTRATE Note: Per clinical note on January 26, 2023, patient's ALT and GGT are elevated. The portal tracts are slightly expanded with chronic inflammatory cells, patchy mild bile duct injury, and no endotheliitis. The lobules demonstrate prominent Kupffer cells, scattered sinusoidal lymphocytic infiltrates, and small foci of lobular inflammation. Focal central venular inflammation is also present. No cholestasis or hepatocellular necrosis is seen. The findings are not specific, and medication effect and viral infection such as CMV should be included in the differential diagnosis. Electronically Signed Out By CRISSY WILSON M.D., PhD./WLI By the signature on this report, the individual or group listed as making the Final Interpretation/Diagnosis certifies that they have reviewed this case. Diagnostic interpretation performed at [facility] [address] [facility] [address] Addendum/Procedures: Addendum Date Ordered: 02/21/2023 Status: Signed Out Date Complete: 02/21/2023 Date Reported: 02/21/2023 Addendum Diagnosis In Situ Hybridization for NISHI is negative.A. By the signature on this report, the individual or group listed as making the Final Interpretation/Diagnosis certifies that they have reviewed this case. Addendum signed out at [place] [address]. Addendum Date Ordered: 05/15/2023 Status: Signed Out Date Complete: 05/15/2023 Date Reported: 05/15/2023 Addendum Diagnosis Immunostains for CMV and HSV demonstrate no viral inclusions. By the signature on this report, the individual or group listed as making the Final Interpretation/Diagnosis certifies that they have reviewed this case. Addendum signed out at [place] [address]. Clinical History: Liver transplant April 2016 Specimens Submitted As: A: LIVER RANDOM Gross Description: Received in formalin, labeled with the patient's name and hospital number, is a cylindrical segment of red-stevenson friable soft tissue measuring 1.1 in length and <0.1 in diameter cm. The specimen is submitted in toto in one cassette. DMB dmb/02/03/2023 The assays/tests were performed with appropriate positive and negative controls which stained appropriately.One or more of the reagents used to perform assays on this specimen MAY have contained components considered to be Laboratory Developed Tests (LDT). LDT's have not been cleared or approved by the U.S. Food and Drug Administration. These assays/tests were developed and their performance characteristics determined by the Department of Pathology Immunohistochemistry Labs at [facility]. The FDA does not require this test to go through premarket FDA review. This test is used for clinical purposes. It should not be regarded as investigational or for research. This laboratory is certified under the Clinical Laboratory Improvement Amendments (CLIA) as qualified to perform high complexity clinical laboratory testing. The assays/tests were performed with appropriate positive and negative controls which stained appropriately. [facility] Department of Pathology [address] [place] [address] Normal [facility] Comment on above: Performed By: #### F [id number] #### [place] [address] US BIOPSY LIVER PERon 2022 US BIOPSY LIVER PER Patient Name: LULY GIRON STUDY: US BIOPSY LIVER PER; 02/03/2023 8:33 am INDICATION: s/p liver transplant, elevated LFT's, ultrasound last week normal Z94.4: Liver replaced by transplant R79.89: Elevated LFTs. COMPARISON: None. ACCESSION NUMBER(S): [id number] ORDERING CLINICIAN: SHARAN AYOUB TECHNIQUE: INTERVENTIONALIST(S): Dr. Татьяна Eid (attending) Dr. Swapna Tomlinson (resident) CONSENT: The patient was informed of the nature of the proposed procedure. The purposes, alternatives, risks, and benefits were explained and discussed. All questions were answered and consent was obtained. SEDATION: Moderate conscious IV sedation services (supervision of administration, induction, and maintenance) were provided by the physician performing the procedure with intravenous fentanyl 50 mcg and versed 2 mg for 15 minutes. The physician was assisted by an independent trained observer, an interventional radiology nurse, in the continuous monitoring of patient level of consciousness and physiologic status. MEDICATION/CONTRAST: No additional. TIME OUT: A time out was performed immediately prior to procedure start with the interventional team, correctly identifying the patient name, date of , MRN, procedure, anatomy (including marking of site and side), patient position, procedure consent form, relevant laboratory and imaging test results, antibiotic administration, safety precautions, and procedure-specific equipment needs. COMPLICATIONS: No immediate adverse events identified. FINDINGS: The patient was placed in the supine position and the area of concern was prepped and draped under sterile technique. Limited sonographic images of the transplanted liver where obtained for purposes of needle guidance. 1% lidocaine was injected subcutaneously and then into the deeper tissues surrounding the targeted area for biopsy. A 17 gauge coaxial introducer was advanced to the hepatic margin, and three core samples were obtained with 18 gauge automated cutting needle via coaxial system. Postprocedure images demonstrate no evidence for hemorrhage. The patient tolerated the procedure well and there were no immediate complications. Specimen(s) sent to pathology. IMPRESSION: Status post ultrasound guided core needle biopsy of transplanted liver. Specimen(s) Sent to pathology. I was present for and/or performed the critical portions of the procedure and immediately available throughout the entire procedure. I personally reviewed the image(s) / study and interpretation. I agree with the findings as stated. Performed and dictated at [facility]. Electronically signed by: ТАТЬЯНА EID MD Normal [facility] US Guidance for biopsy of Ami mattson 02-03-2023 Radiology Study observation (narrative) [facility] Work Phone: TACROLIMUSon 01-28-2023 Tacrolimus (Bld) [Mass/Vol] 7.3 ng/mL Normal 2.0 - 15.0 [facility] Comment on above: Result Comment: NOTE : Result was obtained using a chemiluminescent microparticle immunoassay (CMIA) on the Stem Roller Or Crusher Operator i system. Optimal therapeutic ranges for immuno- suppressant drugs depend upon an individual patient's current clinical state, type of organ transplant, time post-transplant, co-administration of other immunosuppressants, and other clinical factors. The results of this test should be correlated with additional clinical and laboratory data before changes in treatment regimens are made. Performed By: #### F [id number] #### [facility] [id number] [place] [address] Alanine aminotransferase [En zymatic activity/volume] in Serum or PlasmaOrdered By: Sharan Ayoub on 01-27-2023 ALT [Catalytic activity/Vol] 91 U/L 7-52 [facility] Albumin [Mass/volume] in Ser um or Plasma by Bromocresol green (BCG) dye binding methoOrdered By: Sharan Ayoub on 01-27-2023 Albumin BCG dye [Mass/Vol] 3.6 g/dL 3.5-5.7 [facility] Alkaline phosphatase [Enzyma tic activity/volume] in Serum or PlasmaOrdered By: Sharan Ayoub on 01-27-2023 ALP [Catalytic activity/Vol] 222 U/L 34-104 [facility] Aspartate aminotransferase [ Enzymatic activity/volume] in Serum or PlasmaOrdered By: Sharan Ayoub on 01-27-2023 AST [Catalytic activity/Vol] 80 U/L 13-39 [facility] Basophils Auto (Bld) [#/Vol] Ordered By: Sharan Ayoub on 01-27-2023 Basophils (Bld) [#/Vol] 0.1 10*3/uL 0.0-0.2 [facility] Basophils/100 WBC Auto (Bld) Ordered By: Sharan Ayoub on 01-27-2023 Basophils/100 WBC (Bld) 0.8 % . [facility] Bilirubin.direct [Mass/volum e] in Serum or PlasmaOrdered By: Sharan Ayoub on 01-27-2023 Bilirubin.direct [Mass/Vol] 0.40 mg/dL 0.03-0.18 [facility] Bilirubin.total [Mass/volume ] in Serum or PlasmaOrdered By: Sharan Ayoub on 01-27-2023 Bilirubin [Mass/Vol] 1.5 mg/dL 0.3-1.0 [facility] Comment on above: Samples from patient s who have taken Naproxen have shown spurious elevation in Total Bilirubin levels. A metabolite of Naproxen, O-desmethylnaproxen, has been shown to interfere with the Harlan-Uriel method for measuring Total Bilirubin. Calcium [Mass/volume] in Ser um or PlasmaOrdered By: Sharan Ayoub on 01-27-2023 Calcium [Mass/Vol] 9.2 mg/dL 8.6-10.3 [facility] Carbon dioxide, total [Moles /volume] in Serum or PlasmaOrdered By: Sharan Ayoub on 01-27-2023 CO2 [Moles/Vol] 32.9 mmol/L 21.0-31.0 [facility] Chloride [Moles/volume] in S kasi or PlasmaOrdered By: Sharan Ayoub on 01-27-2023 Chloride [Moles/Vol] 104 mmol/L 98-107 [facility] Creatinine [Mass/volume] in Serum or PlasmaOrdered By: Sharan Ayoub on 01-27-2023 Creatinine [Mass/Vol] 0.94 mg/dL 0.70-1.30 [facility] Eosinophils Auto (Bld) [#/Vo l]Ordered By: Sharan Ayoub on 01-27-2023 Eosinophils (Bld) [#/Vol] 0.2 10*3/uL 0.0-0.45 [facility] Eosinophils/100 WBC Auto (Bl d)Ordered By: Sharan Ayoub on 01-27-2023 Eosinophils/100 WBC (Bld) 2.9 % . [facility] Erythrocyte distribution wid th Auto (RBC) [Ratio]Ordered By: Sharan Ayoub on 01-27-2023 Erythrocyte distribution width (RBC) [Ratio] 13.8 % 12.0-14.8 [facility] Gamma glutamyl transferase [ Enzymatic activity/volume] in Serum or PlasmaOrdered By: Sharan Ayoub on 01-27-2023 Gamma glutamyl transferase [Catalytic activity/Vol] 695 U/L 9-64 [facility] Globulin Calc (S) [Mass/Vol] Ordered By: Sharan Ayoub on 01-27-2023 Globulin (S) [Mass/Vol] 3.4 g/dL [facility] Glucose [Mass/volume] in Ser um or PlasmaOrdered By: Sharan Ayoub on 01-27-2023 Glucose [Mass/Vol] 89 mg/dL 70-100 [facility] Comment on above: ADA recommended refe rence rangeRandom Glucose Reference Range is dependent on time and content of last meal. Glucose of more than 200 mg/dL in a nonstressed, ambulatory subject supports the diagnosis of Diabetes Mellitus. Hematocrit Auto (Bld) [Volum e fraction]Ordered By: Sharan Ayoub on 01-27-2023 Hematocrit (Bld) [Volume fraction] 42.2 % 38.8-50.0 [facility] Hemoglobin [Mass/volume] in BloodOrdered By: Sharan Ayoub on 01-27-2023 Hemoglobin (Bld) [Mass/Vol] 14.0 g/dL 13.0-17.0 [facility] Leukocytes [#/volume] correc roderick for nucleated erythrocytes in Blood by Automated counOrdered By: Sharan Ayoub on 01-27-2023 WBC corrected for nucl RBC Auto (Bld) [#/Vol] 6.5 10*3/uL 4.1-10.5 [facility] Lymphocytes Auto (Bld) [#/Vo l]Ordered By: Sharan Ayoub on 01-27-2023 Lymphocytes (Bld) [#/Vol] 2.4 10*3/uL 1.00-4.8 [facility] Lymphocytes/100 WBC Auto (Bl d)Ordered By: Sharan Ayoub on 01-27-2023 Lymphocytes/100 WBC (Bld) 36.9 % . [facility] MCH Auto (RBC) [Entitic mass ]Ordered By: Sharan Ayoub on 01-27-2023 MCH (RBC) [Entitic mass] 31.0 pg 27.5-35.2 [facility] MCHC Auto (RBC) [Mass/Vol]Or dered By: Sharan Ayoub on 01-27-2023 MCHC (RBC) [Mass/Vol] 33.2 g/dL 32.5-35.6 [facility] MCV Auto (RBC) [Entitic vol] Ordered By: Sharan Ayoub on 01-27-2023 MCV (RBC) [Entitic vol] 93.2 fL 83.5-101 [facility] Monocytes Auto (Bld) [#/Vol] Ordered By: Sharan Ayoub on 01-27-2023 Monocytes (Bld) [#/Vol] 0.7 10*3/uL 0.0-0.8 [facility] Monocytes/100 WBC Auto (Bld) Ordered By: Sharan Ayoub on 01-27-2023 Monocytes/100 WBC (Bld) 10.1 % . [facility] Neutrophils Auto (Bld) [#/Vo l]Ordered By: Sharan Ayoub on 01-27-2023 Neutrophils (Bld) [#/Vol] 3.2 10*3/uL 1.8-7.7 [facility] Neutrophils/100 WBC Auto (Bl d)Ordered By: Sharan Ayoub on 01-27-2023 Neutrophils/100 WBC (Bld) 49.3 % . [facility] No Panel InformationOrdered By: Sharan Ayoub on 01-27-2023 Estimated GFR (CKD-EPI) > 60.0 mL/Min [facility] Creatinine Clearance (Chem N/A [facility] Tacrolimus (Prograf) Level Sent to [facility] Nucleated erythrocytes [Pres ence] in Blood by Automated countOrdered By: Sharan Ayoub on 01-27-2023 Nucleated RBC Auto Ql (Bld) 0.2 /100{WBC} 0-0.5 [facility] Platelet mean volume Auto (B ld) [Entitic vol]Ordered By: Sharan Ayoub on 01-27-2023 Platelet mean volume (Bld) [Entitic vol] 10.3 fL 6.6-10.1 [facility] Platelets Auto (Bld) [#/Vol] Ordered By: Sharan Ayoub on 01-27-2023 Platelets (Bld) [#/Vol] 180 10*3/uL 150-450 [facility] Potassium [Moles/volume] in Serum or PlasmaOrdered By: Sharan Ayoub on 01-27-2023 Potassium [Moles/Vol] 3.9 mmol/L 3.5-5.1 [facility] Protein [Mass/volume] in Ser um or PlasmaOrdered By: Sharan Ayoub on 01-27-2023 Protein [Mass/Vol] 7.0 g/dL 6.4-8.9 [facility] RBC Auto (Bld) [#/Vol]Ordere d By: Sharan Ayoub on 01-27-2023 RBC (Bld) [#/Vol] 4.53 10*6/uL 3.90-5.60 [facility] Serum or plasma albumin/glob ulin mass ratioOrdered By: Sharna Ayoub on 01-27-2023 Albumin/Globulin [Mass ratio] 1.1 {ratio} [facility] Serum or plasma anion gap de terminationOrdered By: Sharan Ayoub on 01-27-2023 Anion gap [Moles/Vol] 9.0 mmol/L 6.0-15.0 [facility] Serum or plasma non-glucuron idated bilirubin measurement (mass/volume)Ordered By: Sharan Ayoub on 01-27-2023 Bilirubin.indirect [Mass/Vol] 1.1 mg/dL [facility] Sodium [Moles/volume] in Ser um or PlasmaOrdered By: Sharan Ayoub on 01-27-2023 Sodium [Moles/Vol] 142 mmol/L 136-145 [facility] Tacrolimuson 01-27-2023 Tacrolimus (Bld) [Mass/Vol] 7.3 ng/mL 2.0 - 15.0 [facility] Work Phone: Comment on above: NOTE: Result was obt ained using a chemiluminescent microparticle immunoassay (CMIA) on the Stem Roller Or Crusher Operator i system.Optimal therapeutic ranges for immuno-suppressant drugs depend upon an individualpatient's current clinical state, type oforgan transplant, time post-transplant,co-administration of other immunosuppressants,and other clinical factors. The results ofthis test should be correlated with additionalclinical and laboratory data before changesin treatment regimens are made. Urea nitrogen [Mass/volume] in Serum or PlasmaOrdered By: Sharan Ayoub on 01-27-2023 Urea nitrogen [Mass/Vol] 16 mg/dL 7-25 [facility] WBC Auto (Bld) [#/Vol]Ordere d By: Sharan Ayoub on 01-27-2023 WBC (Bld) [#/Vol] 6.5 10*3/uL 4.1-10.5 [facility] Established Visit (Gastroent erology)on 01-26-2023 Established Visit (Gastroenterology) Diagnoses/Problems Assessed Immunosuppression (279.9) (D84.9) Liver replaced by transplant (V42.7) (Z94.4) Patient Discussion/Summary we await the results of ultrasound. if no obvious answers we will obtain a liver biopsy the patient will continue current immunosuppression regimen and will have drug level checked at follow up lab draw we recommended annual dermatological examination we counseled on diet and exercise we will see the patient in follow up in 6 months Provider Impressions we await the results of ultrasound. if no obvious answers we will obtain a liver biopsy the patient will continue current immunosuppression regimen and will have drug level checked at follow up lab draw we recommended annual dermatological examination we counseled on diet and exercise we will see the patient in follow up in 6 months Chief Complaint S/P LIVER TRANSPLANTATION History of Present Illnesshe has been experiencing RUQ pain and feels poorly. ALT and GGT are elevated. Glycemia is poorly controlled. Upper Gastrointestinal: abdominal pain, but no eructation, no difficulty swallowing, no early satiety, no heartburn, no jaundiced, no nausea, no pain while swallowing. Lower Gastrointestinal: abdominal swelling, bloating. Liver Disease no alteration in sleep wake cycle, no ankle swelling, no cognitive impairment, no confusion, no icterus. Symptom History: Modifying Factors: Associated Symptoms: Skin: there are no skin symptoms. Eyes: there are no eye symptoms. Ears: there are no ear symptoms. Nose: there are no nasal symptoms. Mouth/Throat/Teeth: there are no oral symptoms. Review of Systems Constitutional: no fever and no chills. Cardiovascular: the heart rate was not slow and the heart rate was not fast. Musculoskeletal: no arthralgias and no myalgias. 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) Type 1 diabetes mellitus (250.01) (E10.9) Past Medical History Problems History of Abdominal pain, RLQ (789.03) (R10.31) Resolved Date: 25 Apr 2018 History of Autoimmune hepatitis (571.42) (K75.4) History of Drug-induced constipation (564.09,E980.5) (K59.03) Resolved Date: 25 Apr 2018 History of acne (V13.3) (Z87.2) Resolved Date: 25 Apr 2018 History of essential hypertension (V12.59) (Z86.79) History of hyperthyroidism (V12.29) (Z86.39) Resolved Date: 25 Apr 2018 History of thyroiditis (V12.29) (Z86.39) Resolved Date: 25 Apr 2018 History of type 1 diabetes mellitus (V12.29) (Z86.39) History of vitamin D deficiency (V12.1) (Z86.39) Resolved Date: 25 Apr 2018 Surgical History Problems History of Liver Transplant Family History Mother No pertinent family history Social History Problems Does not use tobacco (V49.89) (Z78.9) Never a smoker No alcohol use No illicit drug use Allergies Medication No Known Drug Allergies Recorded By: Perry Morse; 04/13/2016 1:44:22 PM Current Meds Medication NameInstruction Alcohol Pads 70 % PadUse 4 a day as directed amLODIPine Besylate 5 MG Oral TabletTake 1 tablet daily Aspirin 81 MG Oral Tablet Delayed ReleaseTAKE 1 TABLET DAILY. Atif Microlet Lancets MISCTest blood sugars 5 times a day as directed Contour Next Test In Vitro StripTest blood sugars 5 times a day as directed HumaLOG 100 UNIT/ML SOLNUse as directed Via insulin pump Magnesium Oxide (Elemental) 400 MG Oral TabletTake 1 tablet twice daily Multi-Vitamins TABSTAKE 1 TABLET DAILY. Mycophenolate Mofetil 250 MG Oral CapsuleTAKE 1 CAPSULE BY MOUTH EVERY 12 HOURS [employer] Delica Lancets 33G MISCTEST BLOOD SUGARS 5 TIMES A DAY AD DIRECTGED [employer] Ultra 2 w/Device KitUSE DIRECTED. Green Phosphor Control In Vitro SolutionUSE DIRECTED. [employer] Ultra In Vitro StripTest 4 times daily predniSONE 1 MG Oral TabletTAKE 2 TABLETS BY MOUTH DAILY Tacrolimus 1 MG Oral Capsuletake 1 capsule by mouth twice daily Vitals Vital Signs Recorded: 26Jan2023 10:46AM Mmdmgdmcfmf66.6 F Heart Rate76 Yjsdyetppmm02 Srfwseuf363 Owgnvsuut55 Nbkbcl749 lb BMI Mivtivllbr08.37 kg/m2 BSA Calculated1.73 Tobacco Useb) No PHQ-2 #1. Over the last 2 weeks have you felt down, depressed or hopeless? (If yes, answer PHQ-9 below)No PHQ-2 #2. Over the last 2 weeks have you felt little interest or pleasure in doing things? (If yes, answer PHQ-9 below)No Falls Screening (Age 18+)a) No falls within the last year O2 Sruyhroafe74, RA Pain Scale0 Physical Exam Con (more content not included)... [facility] 01[facility]2023 Liver Normal [facility] Work Phone: Tobacco Screening.on 023 Adult depression screening assessment No [facility] Work Phone: Fall risk assessment a) No falls within the last year [facility] Work Phone: Tobacco use status [facility] b) No [facility] Work Phone: US ABDOMEN AND OR PELVIS DUP MARIA GUADALUPE MESENTERIC PORTAL RENALon 01-26-2023 US ABDOMEN AND OR PELVIS DUPLEX MESENTERIC PORTAL RENAL Patient Name: LULY GIRON STUDY: US LIVER; US DUPLX ART/VEIN AB; 01/26/2023 10:13 am INDICATION: s/p liver transplant, right side pain, elevated LFT's Z94.4: Liver replaced by transplant R79.89: Elevated LFTs. COMPARISON: Ultrasound 04/17/2019 ACCESSION NUMBER(S): [id number]; [id number] ORDERING CLINICIAN: SHARAN AYOUB TECHNIQUE: Multiple images of the right upper quadrant were obtained. Perrin scale, color Doppler and spectral Doppler waveform analysis was performed. FINDINGS: LIVER: The transplant liver measures 12.1 cm and is grossly unremarkable and free of any focal lesions. GALLBLADDER: Surgically absent. BILIARY SYSTEM: No evidence of intra or extrahepatic biliary dilatation is identified; the common bile duct measures 3 mm. DOPPLER EVALUATION: HEPATIC ARTERIES: Hepatic artery and its right and left branches RI's are estimated at 0.7, 0.7 and 0.7, respectively. PORTAL VEIN: Portal vein is patent and measures 11 mm. There is normal respiratory variation. The calculated velocity proximal to the anastomosis is 24.4 cm/sec, distal to the anastomosis 22.0 cm/sec, and measures 22.8 cm/sec at the anastomosis. Portal vein velocities are calculated as follows:; Left portal vein branch 9.1 cm/sec, antegrade flow; right portal vein anterior branch 20.5 cm/sec, antegrade flow; right portal vein posterior branch 19.0 cm/sec, antegrade flow. The splenic vein is also patent. HEPATIC VEIN: The right, middle and left hepatic veins are patent and demonstrate triphasic antegrade flow. IVC appears also patent. PANCREAS: The visualized pancreas is unremarkable in appearance. RIGHT KIDNEY: The right kidney measures 11.4 cm in length. Twinkling artifact consistent with calcifications is noted. There is no hydronephrosis. SPLEEN: The spleen measures 10.6 x 2.8 x 4.1 cm and is grossly unremarkable. PERITONEUM AND RETROPERITONEUM: No ascites. BLADDER: No significant abnormality of the bladder. IMPRESSION: 1. Liver transplant without sonographic abnormality, including Doppler interrogation. 2. 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 I personally reviewed the images/study and I agree with the findings as stated by vice president financial Ramya Steward MD. This study was interpreted at [facility], [place], [place]. Electronically signed by: WEI FOSS MD Normal [facility] US Abdomen And Or Pelvis Dup maria guadalupe Mesenteric Portal Renalon 01-26-2023 US Abdomen And Or Pelvis Duplex Mesenteric Portal Renal Normal [facility] Work Phone: TACROLIMUSon 01-17-2023 Tacrolimus (Bld) [Mass/Vol] 8.1 ng/mL Normal 2.0 - 15.0 [facility] Comment on above: Result Comment: NOTE : Result was obtained using a chemiluminescent microparticle immunoassay (CMIA) on the Stem Roller Or Crusher Operator i system. Optimal therapeutic ranges for immuno- suppressant drugs depend upon an individual patient's current clinical state, type of organ transplant, time post-transplant, co-administration of other immunosuppressants, and other clinical factors. The results of this test should be correlated with additional clinical and laboratory data before changes in treatment regimens are made. Performed By: #### F K506 #### [facility] [address] [place] [address] Alanine aminotransferase [En zymatic activity/volume] in Serum or PlasmaOrdered By: Sharan Ayoub on 01-16-2023 ALT [Catalytic activity/Vol] 98 U/L 7-52 [facility] Albumin [Mass/volume] in Ser um or Plasma by Bromocresol green (BCG) dye binding methoOrdered By: Sharan Ayoub on 01-16-2023 Albumin BCG dye [Mass/Vol] 3.6 g/dL 3.5-5.7 [facility] Alkaline phosphatase [Enzyma tic activity/volume] in Serum or PlasmaOrdered By: Sharan Ayoub on 01-16-2023 ALP [Catalytic activity/Vol] 197 U/L 34-104 [facility] Aspartate aminotransferase [ Enzymatic activity/volume] in Serum or PlasmaOrdered By: Sharan Ayoub on 01-16-2023 AST [Catalytic activity/Vol] 88 U/L 13-39 [facility] Bilirubin.direct [Mass/volum e] in Serum or PlasmaOrdered By: Sharan Ayoub on 01-16-2023 Bilirubin.direct [Mass/Vol] 0.30 mg/dL 0.03-0.18 [facility] Bilirubin.total [Mass/volume ] in Serum or PlasmaOrdered By: Sharan Ayoub on 01-16-2023 Bilirubin [Mass/Vol] 1.2 mg/dL 0.3-1.0 [facility] Calcium [Mass/volume] in Ser um or PlasmaOrdered By: Sharan Ayoub on 01-16-2023 Calcium [Mass/Vol] 8.8 mg/dL 8.6-10.3 [facility] Carbon dioxide, total [Moles /volume] in Serum or PlasmaOrdered By: Sharan Ayoub on 01-16-2023 CO2 [Moles/Vol] 30.0 mmol/L 21.0-31.0 [facility] Chloride [Moles/volume] in S kasi or PlasmaOrdered By: Sharan Ayoub on 01-16-2023 Chloride [Moles/Vol] 104 mmol/L 98-107 [facility] Creatinine [Mass/volume] in Serum or PlasmaOrdered By: Sharan Ayoub on 01-16-2023 Creatinine [Mass/Vol] 1.02 mg/dL 0.70-1.30 [facility] Gamma glutamyl transferase [ Enzymatic activity/volume] in Serum or PlasmaOrdered By: Sharan Ayoub on 01-16-2023 Gamma glutamyl transferase [Catalytic activity/Vol] 705 U/L 9-64 [facility] Globulin Calc (S) [Mass/Vol] Ordered By: Sharan Ayoub on 01-16-2023 Globulin (S) [Mass/Vol] 3.5 g/dL [facility] Glucose [Mass/volume] in Ser um or PlasmaOrdered By: Sharan Ayoub on 01-16-2023 Glucose [Mass/Vol] 254 mg/dL 70-100 [facility] Comment on above: ADA recommended refe rence rangeRandom Glucose Reference Range is dependent on time and content of last meal. Glucose of more than 200 mg/dL in a nonstressed, ambulatory subject supports the diagnosis of Diabetes Mellitus. Laboratory - CoagulationOrde red By: Sharan Ayoub on 01-16-2023 PT Coag (PPP) [Time] 11.4 s 9.0-12.9 [facility] No Panel InformationOrdered By: Sharan Ayoub on 01-16-2023 Estimated GFR (CKD-EPI) > 60.0 mL/Min [facility] Creatinine Clearance (Chem N/A [facility] Tacrolimus (Prograf) Level Sent to [facility] Platelet poor plasma interna tional normalized ratio (INR) by coagulation assay (relatOrdered By: Sharan Ayoub on 01-16-2023 INR Coag (PPP) [Relative time] 1.0 {INR} [facility] Comment on above: INR Therapeutic Rang e A) Pre- and Peroperative OAT started two weeks before surgery. NOT HIP SURGERY: 1.5 - 2.5 HIP SURGERY: 2 - 3B) Primary and secondary prevention of venous THROMBOSIS: 2 - 3C) Active venous thrombosis, pulmonary embolismand prevention of recurrent venous thrombosis: 2 - 3D) Prevention of arterial thromboembolismincluding patients with mechanical heart valves: 3 - 4.5 Potassium [Moles/volume] in Serum or PlasmaOrdered By: Sharan Ayoub on 01-16-2023 Potassium [Moles/Vol] 4.0 mmol/L 3.5-5.1 [facility] Protein [Mass/volume] in Ser um or PlasmaOrdered By: Sharan Ayoub on 01-16-2023 Protein [Mass/Vol] 7.1 g/dL 6.4-8.9 [facility] Serum or plasma albumin/glob ulin mass ratioOrdered By: Sharan Ayoub on 01-16-2023 Albumin/Globulin [Mass ratio] 1.0 {ratio} [facility] Serum or plasma anion gap de terminationOrdered By: Sharan Ayoub on 01-16-2023 Anion gap [Moles/Vol] 9.0 mmol/L 6.0-15.0 [facility] Serum or plasma non-glucuron idated bilirubin measurement (mass/volume)Ordered By: Sharan Ayoub on 01-16-2023 Bilirubin.indirect [Mass/Vol] 0.9 mg/dL [facility] Sodium [Moles/volume] in Ser um or PlasmaOrdered By: Sharan Ayoub on 01-16-2023 Sodium [Moles/Vol] 139 mmol/L 136-145 [facility] Tacrolimuson 01-16-2023 Tacrolimus (Bld) [Mass/Vol] 8.1 ng/mL 2.0 - 15.0 [facility] Work Phone: Comment on above: NOTE: Result was obt ained using a chemiluminescent microparticle immunoassay (CMIA) on the Stem Roller Or Crusher Operator i system.Optimal therapeutic ranges for immuno-suppressant drugs depend upon an individualpatient's current clinical state, type oforgan transplant, time post-transplant,co-administration of other immunosuppressants,and other clinical factors. The results ofthis test should be correlated with additionalclinical and laboratory data before changesin treatment regimens are made. Urea nitrogen [Mass/volume] in Serum or PlasmaOrdered By: Sharan Ayoub on 01-16-2023 Urea nitrogen [Mass/Vol] 14 mg/dL 7-25 [facility] TACROLIMUSon 12-24-2022 Tacrolimus (Bld) [Mass/Vol] 5.8 ng/mL Normal 2.0 - 15.0 [facility] Comment on above: Result Comment: NOTE : Result was obtained using a chemiluminescent microparticle immunoassay (CMIA) on the Stem Roller Or Crusher Operator i system. Optimal therapeutic ranges for immuno- suppressant drugs depend upon an individual patient's current clinical state, type of organ transplant, time post-transplant, co-administration of other immunosuppressants, and other clinical factors. The results of this test should be correlated with additional clinical and laboratory data before changes in treatment regimens are made. Performed By: #### F [id number] #### [facility] [id number] [place] [address] Alanine aminotransferase [En zymatic activity/volume] in Serum or PlasmaOrdered By: Sharan Ayoub on 12-23-2022 ALT [Catalytic activity/Vol] 64 U/L 7-52 [facility] Albumin [Mass/volume] in Ser um or Plasma by Bromocresol green (BCG) dye binding methoOrdered By: Sharan Ayoub on 12-23-2022 Albumin BCG dye [Mass/Vol] 3.7 g/dL 3.5-5.7 [facility] Alkaline phosphatase [Enzyma tic activity/volume] in Serum or PlasmaOrdered By: Sharan Ayuob on 12-23-2022 ALP [Catalytic activity/Vol] 209 U/L 34-104 [facility] Aspartate aminotransferase [ Enzymatic activity/volume] in Serum or PlasmaOrdered By: Sharan Ayoub on 12-23-2022 AST [Catalytic activity/Vol] 61 U/L 13-39 [facility] Basophils Auto (Bld) [#/Vol] Ordered By: Sharan Ayoub on 12-23-2022 Basophils (Bld) [#/Vol] 0.1 10*3/uL 0.0-0.2 [facility] Basophils/100 WBC Auto (Bld) Ordered By: Sharan Ayoub on 12-23-2022 Basophils/100 WBC (Bld) 1.2 % . [facility] Bilirubin.total [Mass/volume ] in Serum or PlasmaOrdered By: Sharan Ayoub on 12-23-2022 Bilirubin [Mass/Vol] 0.9 mg/dL 0.3-1.0 [facility] Calcium [Mass/volume] in Ser um or PlasmaOrdered By: Sharan Ayoub on 12-23-2022 Calcium [Mass/Vol] 9.6 mg/dL 8.6-10.3 [facility] Carbon dioxide, total [Moles /volume] in Serum or PlasmaOrdered By: Sharan Ayoub on 12-23-2022 CO2 [Moles/Vol] 30.2 mmol/L 21.0-31.0 [facility] Chloride [Moles/volume] in S kasi or PlasmaOrdered By: Sharan Ayoub on 12-23-2022 Chloride [Moles/Vol] 102 mmol/L 98-107 [facility] Creatinine [Mass/volume] in Serum or PlasmaOrdered By: Sharan Ayoub on 12-23-2022 Creatinine [Mass/Vol] 1.08 mg/dL 0.70-1.30 [facility] Eosinophils Auto (Bld) [#/Vo l]Ordered By: Sharan Ayoub on 12-23-2022 Eosinophils (Bld) [#/Vol] 0.1 10*3/uL 0.0-0.45 [facility] Eosinophils/100 WBC Auto (Bl d)Ordered By: Sharan Ayoub on 12-23-2022 Eosinophils/100 WBC (Bld) 1.2 % . [facility] Erythrocyte distribution wid th Auto (RBC) [Ratio]Ordered By: Sharan Ayoub on 12-23-2022 Erythrocyte distribution width (RBC) [Ratio] 13.7 % 12.0-14.8 [facility] Globulin Calc (S) [Mass/Vol] Ordered By: Sharan Ayoub on 12-23-2022 Globulin (S) [Mass/Vol] 3.2 g/dL [facility] Glucose [Mass/volume] in Ser um or PlasmaOrdered By: Sharan Ayoub on 12-23-2022 Glucose [Mass/Vol] 278 mg/dL 74-109 [facility] Comment on above: ADA recommended refe rence rangeRandom Glucose Reference Range is dependent on time and content of last meal. Glucose of more than 200 mg/dL in a nonstressed, ambulatory subject supports the diagnosis of Diabetes Mellitus. Hematocrit Auto (Bld) [Volum e fraction]Ordered By: Sharan Ayoub on 12-23-2022 Hematocrit (Bld) [Volume fraction] 39.9 % 38.8-50.0 [facility] Hemoglobin [Mass/volume] in BloodOrdered By: Sharan Ayoub on 12-23-2022 Hemoglobin (Bld) [Mass/Vol] 13.4 g/dL 13.0-17.0 [facility] Laboratory - Chemistry and C hemistry - challengeOrdered By: Sharan Ayoub on 12-23-2022 GFR/1.73 sq M.predicted MDRD (S/P/Bld) [Vol rate/Area] mL/min/{1.73_m2} [facility] Leukocytes [#/volume] correc roderick for nucleated erythrocytes in Blood by Automated counOrdered By: Sharan Ayoub on 12-23-2022 WBC corrected for nucl RBC Auto (Bld) [#/Vol] 6.5 10*3/uL 4.1-10.5 [facility] Lymphocytes Auto (Bld) [#/Vo l]Ordered By: Sharan Ayoub on 12-23-2022 Lymphocytes (Bld) [#/Vol] 2.4 10*3/uL 1.00-4.8 [facility] Lymphocytes/100 WBC Auto (Bl d)Ordered By: Sharan Ayoub on 12-23-2022 Lymphocytes/100 WBC (Bld) 37.4 % . [facility] MCH Auto (RBC) [Entitic mass ]Ordered By: Sharan Ayoub on 12-23-2022 MCH (RBC) [Entitic mass] 31.1 pg 27.5-35.2 [facility] MCHC Auto (RBC) [Mass/Vol]Or dered By: Sharan Ayoub on 12-23-2022 MCHC (RBC) [Mass/Vol] 33.6 g/dL 32.5-35.6 [facility] MCV Auto (RBC) [Entitic vol] Ordered By: Sharan Ayoub on 12-23-2022 MCV (RBC) [Entitic vol] 92.7 fL 83.5-101 [facility] Monocytes Auto (Bld) [#/Vol] Ordered By: Sharan Ayoub on 12-23-2022 Monocytes (Bld) [#/Vol] 0.6 10*3/uL 0.0-0.8 [facility] Monocytes/100 WBC Auto (Bld) Ordered By: Sharan Ayoub on 12-23-2022 Monocytes/100 WBC (Bld) 8.6 % . [facility] Neutrophils Auto (Bld) [#/Vo l]Ordered By: Sharan Ayoub on 12-23-2022 Neutrophils (Bld) [#/Vol] 3.4 10*3/uL 1.8-7.7 [facility] Neutrophils/100 WBC Auto (Bl d)Ordered By: Sharan Ayoub on 12-23-2022 Neutrophils/100 WBC (Bld) 51.6 % . [facility] No Panel InformationOrdered By: Sharan Ayoub on 12-23-2022 Pharmacy Creatinine Clearance (Chem N/A [facility] Tacrolimus (Prograf) Level Sent to [facility] Nucleated erythrocytes [Pres ence] in Blood by Automated countOrdered By: Sharan Ayoub on 12-23-2022 Nucleated RBC Auto Ql (Bld) 0.1 /100{WBC} 0-0.5 [facility] Platelet mean volume Auto (B ld) [Entitic vol]Ordered By: Sharan Ayoub on 12-23-2022 Platelet mean volume (Bld) [Entitic vol] 10.1 fL 6.6-10.1 [facility] Platelets Auto (Bld) [#/Vol] Ordered By: Sharan Ayoub on 12-23-2022 Platelets (Bld) [#/Vol] 207 10*3/uL 150-450 [facility] Potassium [Moles/volume] in Serum or PlasmaOrdered By: Sharan Ayoub on 12-23-2022 Potassium [Moles/Vol] 4.0 mmol/L 3.5-5.1 [facility] Protein [Mass/volume] in Ser um or PlasmaOrdered By: Sharan Ayoub on 12-23-2022 Protein [Mass/Vol] 6.9 g/dL 6.4-8.9 [facility] RBC Auto (Bld) [#/Vol]Ordere d By: Sharan Ayoub on 12-23-2022 RBC (Bld) [#/Vol] 4.31 10*6/uL 3.90-5.60 [facility] Serum or plasma albumin/glob ulin mass ratioOrdered By: Sharan Ayoub on 12-23-2022 Albumin/Globulin [Mass ratio] 1.2 {ratio} [facility] Serum or plasma anion gap de terminationOrdered By: Sharan Ayoub on 12-23-2022 Anion gap [Moles/Vol] 10.8 mmol/L 6.0-15.0 [facility] Sodium [Moles/volume] in Ser um or PlasmaOrdered By: Sharan Ayoub on 12-23-2022 Sodium [Moles/Vol] 139 mmol/L 136-145 [facility] Tacrolimuson 12-23-2022 Tacrolimus (Bld) [Mass/Vol] 5.8 ng/mL 2.0 - 15.0 [facility] [place] [address] Work Phone: Comment on above: NOTE: Result was obt ained using a chemiluminescent microparticle immunoassay (CMIA) on the Stem Roller Or Crusher Operator i system.Optimal therapeutic ranges for immuno-suppressant drugs depend upon an individualpatient's current clinical state, type oforgan transplant, time post-transplant,co-administration of other immunosuppressants,and other clinical factors. The results ofthis test should be correlated with additionalclinical and laboratory data before changesin treatment regimens are made. Urea nitrogen [Mass/volume] in Serum or PlasmaOrdered By: Sharan Ayoub on 12-23-2022 Urea nitrogen [Mass/Vol] 20 mg/dL 7-25 [facility] WBC Auto (Bld) [#/Vol]Ordere d By: Sharan Ayoub on 12-23-2022 WBC (Bld) [#/Vol] 6.5 10*3/uL 4.1-10.5 [facility] TACROLIMUSon 11-03-2022 Tacrolimus (Bld) [Mass/Vol] 9.2 ng/mL Normal 2.0 - 15.0 [facility] Comment on above: Result Comment: NOTE : Result was obtained using a chemiluminescent microparticle immunoassay (CMIA) on the Stem Roller Or Crusher Operator i system. Optimal therapeutic ranges for immuno- suppressant drugs depend upon an individual patient's current clinical state, type of organ transplant, time post-transplant, co-administration of other immunosuppressants, and other clinical factors. The results of this test should be correlated with additional clinical and laboratory data before changes in treatment regimens are made. Performed By: #### F [id number] #### [facility] [address] [place] [address] Basophils Auto (Bld) [#/Vol] Ordered By: Sharan Ayoub on 11-02-2022 Basophils (Bld) [#/Vol] 0.0 10*3/uL 0.0-0.2 [facility] Basophils/100 WBC Auto (Bld) Ordered By: Sharan Ayoub on 11-02-2022 Basophils/100 WBC (Bld) 0.9 % . [facility] Body fluid albumin measureme nt (mass/volume)Ordered By: Sharan Ayoub on 11-02-2022 Albumin (Body fld) [Mass/Vol] 3.5 g/dL 3.2-5.5 [facility] Creatinine and Glomerular fi ltration rate.predicted panel (S/P/Bld)Ordered By: Sharan Ayoub on 11-02-2022 Creatinine [Mass/Vol] 0.95 mg/dL 0.64-1.27 [facility] Eosinophils Auto (Bld) [#/Vo l]Ordered By: Sharan Ayoub on 11-02-2022 Eosinophils (Bld) [#/Vol] 0.1 10*3/uL 0.0-0.45 [facility] Eosinophils/100 WBC Auto (Bl d)Ordered By: Sharan Ayoub on 11-02-2022 Eosinophils/100 WBC (Bld) 2.1 % . [facility] Erythrocyte distribution wid th Auto (RBC) [Ratio]Ordered By: Sharan Ayoub on 11-02-2022 Erythrocyte distribution width (RBC) [Ratio] 13.9 % 12.0-14.8 [facility] Estimated glomerular filtrat ion rate (GFR) non- AmericanOrdered By: Sharan Ayoub on 11-02-2022 GFR/1.73 sq M.predicted among non-blacks MDRD (S/P/Bld) [Vol rate/Area] > 60 mL/Min [facility] Globulin Calc (S) [Mass/Vol] Ordered By: Sharan Ayoub on 11-02-2022 Globulin (S) [Mass/Vol] 3.0 g/dL [facility] Hematocrit Auto (Bld) [Volum e fraction]Ordered By: Sharan Ayoub on 11-02-2022 Hematocrit (Bld) [Volume fraction] 43.7 % 38.8-50.0 [facility] Hemoglobin [Mass/volume] in BloodOrdered By: Sharan Ayoub on 11-02-2022 Hemoglobin (Bld) [Mass/Vol] 14.4 g/dL 13.0-17.0 [facility] Leukocytes [#/volume] correc roderick for nucleated erythrocytes in Blood by Automated counOrdered By: Sharan Ayoub on 11-02-2022 WBC corrected for nucl RBC Auto (Bld) [#/Vol] 5.5 10*3/uL 4.1-10.5 [facility] Lymphocytes Auto (Bld) [#/Vo l]Ordered By: Sharan Ayoub on 11-02-2022 Lymphocytes (Bld) [#/Vol] 2.4 10*3/uL 1.00-4.8 [facility] Lymphocytes/100 WBC Auto (Bl d)Ordered By: Sharan Ayoub on 11-02-2022 Lymphocytes/100 WBC (Bld) 43.9 % . [facility] MCH Auto (RBC) [Entitic mass ]Ordered By: Sharan Ayoub on 11-02-2022 MCH (RBC) [Entitic mass] 30.5 pg 27.5-35.2 [facility] MCHC Auto (RBC) [Mass/Vol]Or dered By: Sharan Ayoub on 11-02-2022 MCHC (RBC) [Mass/Vol] 33.0 g/dL 32.5-35.6 [facility] MCV Auto (RBC) [Entitic vol] Ordered By: Sharan Ayoub on 11-02-2022 MCV (RBC) [Entitic vol] 92.5 fL 83.5-101 [facility] Monocytes Auto (Bld) [#/Vol] Ordered By: Sharan Ayoub on 11-02-2022 Monocytes (Bld) [#/Vol] 0.6 10*3/uL 0.0-0.8 [facility] Monocytes/100 WBC Auto (Bld) Ordered By: Sharan Ayoub on 11-02-2022 Monocytes/100 WBC (Bld) 10.7 % . [facility] Neutrophils Auto (Bld) [#/Vo l]Ordered By: Sharan Ayoub on 11-02-2022 Neutrophils (Bld) [#/Vol] 2.3 10*3/uL 1.8-7.7 [facility] Neutrophils/100 WBC Auto (Bl d)Ordered By: Sharan Ayoub on 11-02-2022 Neutrophils/100 WBC (Bld) 42.4 % . [facility] No Panel InformationOrdered By: Sharan Ayoub on 11-02-2022 Estimated GFR () > 60 mL/Min [facility] Comment on above: GFR estimated refere nce range: According to KDOQI guidelines, <60 ml/min/1.73m2 is sufficient to diagnose a patient with chronic kidney disease. Pharmacy Creatinine Clearance (Chem N/A [facility] Tacrolimus (Prograf) Level Sent to [facility] Nucleated erythrocytes [Pres ence] in Blood by Automated countOrdered By: Sharan Ayoub on 11-02-2022 Nucleated RBC Auto Ql (Bld) 0.1 /100{WBC} 0-0.5 [facility] Platelet mean volume Auto (B ld) [Entitic vol]Ordered By: Sharan Ayoub on 11-02-2022 Platelet mean volume (Bld) [Entitic vol] 9.9 fL 6.6-10.1 [facility] Platelets Auto (Bld) [#/Vol] Ordered By: Sharan Ayoub on 11-02-2022 Platelets (Bld) [#/Vol] 199 10*3/uL 150-450 [facility] Protein [Mass/volume] in Ser um or PlasmaOrdered By: Sharan Ayoub on 11-02-2022 Protein [Mass/Vol] 6.5 g/dL 6.1-7.9 [facility] RBC Auto (Bld) [#/Vol]Ordere d By: Sharan Ayoub on 11-02-2022 RBC (Bld) [#/Vol] 4.72 10*6/uL 3.90-5.60 [facility] Serum or plasma alanine weaver otransferase measurement without P-5'-P (enzymatic activiOrdered By: Sharan Ayoub on 11-02-2022 ALT No additional P-5'-P [Catalytic activity/Vol] 86 U/L 10-60 [facility] Serum or plasma albumin/glob ulin mass ratioOrdered By: Sharan Ayoub on 11-02-2022 Albumin/Globulin [Mass ratio] 1.2 {ratio} [facility] Serum or plasma alkaline roe sphatase measurement (enzymatic activity/volume)Ordered By: Sharan Ayoub on 11-02-2022 ALP [Catalytic activity/Vol] 149 U/L 32-92 [facility] Serum or plasma anion gap de terminationOrdered By: Sharan Ayoub on 11-02-2022 Anion gap [Moles/Vol] 15.2 mmol/L 6.0-15.0 [facility] Serum or plasma aspartate am inotransferase measurement (enzymatic activity/volume)Ordered By: Sharan Ayoub on 11-02-2022 AST [Catalytic activity/Vol] 67 U/L 10-42 [facility] Serum or plasma calcium vini urement (mass/volume)Ordered By: Sharan Ayoub on 11-02-2022 Calcium [Mass/Vol] 9.4 mg/dL 8.2-10.2 [facility] Serum or plasma chloride jose surement (moles/volume)Ordered By: Sharan Ayoub on 11-02-2022 Chloride [Moles/Vol] 98 mmol/L 95-114 [facility] Serum or plasma glucose vini urement (mass/volume)Ordered By: Sharan Ayoub on 11-02-2022 Glucose [Mass/Vol] 176 mg/dL 70-100 [facility] Comment on above: ADA recommended refe rence rangeRandom Glucose Reference Range is dependent on time and content of last meal. Glucose of more than 200 mg/dL in a nonstressed, ambulatory subject supports the diagnosis of Diabetes Mellitus. Serum or plasma potassium me asurement (moles/volume)Ordered By: Sharan Ayoub on 11-02-2022 Potassium [Moles/Vol] 3.7 mmol/L 3.5-5.1 [facility] Serum or plasma sodium measu rement (moles/volume)Ordered By: Sharan Ayoub on 11-02-2022 Sodium [Moles/Vol] 139 mmol/L 136-146 [facility] Serum or plasma total biliru bin measurement (mass/volume)Ordered By: Sharan Ayoub on 11-02-2022 Bilirubin [Mass/Vol] 1.1 mg/dL 0.3-1.2 [facility] Serum or plasma total carbon dioxide measurement (moles/volume)Ordered By: Sharan Ayoub on 11-02-2022 CO2 [Moles/Vol] 29.5 mmol/L 22.0-30.0 [facility] Serum or plasma urea nitroge n measurement (mass/volume)Ordered By: Sharan Ayoub on 11-02-2022 Urea nitrogen [Mass/Vol] 10 mg/dL 9 [facility] Tacrolimuson 11-02-2022 Tacrolimus (Bld) [Mass/Vol] 9.2 ng/mL 2.0 - 15.0 [facility] [address] [facility] Work Phone: Comment on above: NOTE: Result was obt ained using a chemiluminescent microparticle immunoassay (CMIA) on the Stem Roller Or Crusher Operator i system.Optimal therapeutic ranges for immuno-suppressant drugs depend upon an individualpatient's current clinical state, type oforgan transplant, time post-transplant,co-administration of other immunosuppressants,and other clinical factors. The results ofthis test should be correlated with additionalclinical and laboratory data before changesin treatment regimens are made. WBC Auto (Bld) [#/Vol]Ordere d By: Sharan Ayoub on 11-02-2022 WBC (Bld) [#/Vol] 5.5 10*3/uL 4.1-10.5 [facility] AMYLASEon 10-26-2022 Amylase [Catalytic activity/Vol] 69 U/L Normal 25-115 [facility] Comment on above: Performed By: #### B MP, LIVER, LIPA, CHACHA ####[facility] [address] [place] [id number]. Aleksandar Almeida CBC AUTO DIFFon 10-26-2022 BASO # 0.0 103/ul Normal 0.0-0.1 [facility] Comment on above: Performed By: #### C BC ####[facility] [address] [place], [place] [address]Jv. Aleksandar Almeida Basophils/100 WBC (Bld) 0.7 % Normal 0.2-2.0 [facility] Comment on above: Performed By: #### C BC ####[facility] [address] [place], [place] [address]DrBaldev Almeida EO # 0.1 103/ul Normal 0.0-0.7 [facility] Comment on above: Performed By: #### C BC ####[facility] [address] [place], [place] [address]Dr. Aleksandar Almeida Eosinophils/100 WBC (Bld) 1.1 % Normal 0.9-7.0 [facility] Comment on above: Performed By: #### C BC ####[facility] [address] [place], [place] [address]Dr. Aleksandar Almeida Erythrocyte distribution width (RBC) [Ratio] 12.5 % Normal 11.0-15.0 [facility] Comment on above: Performed By: #### C BC ####[facility] [address] [place], [place] [address]Dr. Aleksandar Almeida Hematocrit (Bld) [Volume fraction] 42.9 % Normal 42.0-54.0 [facility] Comment on above: Performed By: #### C BC ####[facility] [address] [place], [place] [address]DrBaldev Almeida Hemoglobin (Bld) [Mass/Vol] 13.6 g/dL Critically low 14.0-18.0 [facility] Comment on above: Performed By: #### C BC ####[facility] [address] [place], [place] [address]Dr. Aleksandar Almeida IG # 0.01 10e3/ul Normal 0.00-0.03 [facility] Comment on above: Performed By: #### C BC ####[facility] [address] [place], [place] [address]Dr. Aleksandar Almeida IG % 0.2 % Normal 0.0-0.5 [facility] Comment on above: Performed By: #### C BC ####[facility] [address] [place], [place] [address]Dr. Aleksandar Almeida LYMPH # 2.3 103/ul Normal 1.2-3.8 [facility] Comment on above: Performed By: #### C BC ####[facility] [address] [place] [address]DrBaldev Almeida Lymphocytes/100 WBC (Bld) 41.7 % Normal 20.5-60.0 [facility] Comment on above: Performed By: #### C BC ####[facility] [address] [place], [place] [address]DrBaldev Almeida MANUAL DIFF REQ NO Normal [facility] Comment on above: Performed By: #### C BC ####[facility] [address] [place], [place] [address]DrBaldev Almeida MCH (RBC) [Entitic mass] 30.9 pg Normal 25.9-34.0 [facility] Comment on above: Performed By: #### C BC ####[facility] [address] [place], [place] [address]DrBaldev Almeida MCHC (RBC) [Mass/Vol] 31.7 g/dL Normal 29.9-35.2 [facility] Comment on above: Performed By: #### C BC ####[facility] [address] [place], [place] [address]DrBaldev Almeida MCV (RBC) [Entitic vol] 97.5 fL Critically high 80.0-94.0 [facility] Comment on above: Performed By: #### C BC ####[facility] [address] [place], [place] [address]DrBaldev Almeida MONO # 0.5 103/ul Normal 0.3-0.8 [facility] Comment on above: Performed By: #### C BC ####[facility] [address] [place], [place] [address]DrBaldev Almeida Monocytes/100 WBC (Bld) 8.1 % Normal 1.7-12.0 [facility] Comment on above: Performed By: #### C BC ####[facility] [address] [place], [place] [address]DrBaldev Almeida NEUT # 2.7 103/ul Normal 1.4-6.5 [facility] Comment on above: Performed By: #### C BC ####[facility] [address] [address]Dr. Aleksandar Almeida Neutrophils/100 WBC (Bld) 48.2 % Normal 43.0-75.0 [facility] Comment on above: Performed By: #### C BC ####[facility] [address] [address]Dr. Aleksandar Almeida Platelet mean volume (Bld) [Entitic vol] 11.0 fL Normal 9.5-13.5 [facility] Comment on above: Performed By: #### C BC ####[facility] [address] [place], [place] [address]Dr. Aleksandar Almeida PLT 175 103/ul Normal 150-450 [facility] Comment on above: Performed By: #### C BC ####[facility] [address] [place], [place] [address]Dr. Aleksandar Almeida RBC 4.40 106/ul Critically low 4.70-6.10 [facility] Comment on above: Performed By: #### C BC ####[facility] [address] [place], [place] [address]DrBaldev Almeida WBC 5.6 103/ul Normal 4.0-11.0 [facility] Comment on above: Performed By: #### C BC ####[facility] [address] [place], [place] [address]DrBaldev Almeida ER URINE PROFILEon 3 Bilirubin Ql (U) Negative Normal NEGATIVE [facility] Comment on above: Performed By: #### E RUR #### [facility] [address] [address] [address] Aleksandar Almeida Clarity (U) CLEAR Normal CLEAR [facility] Comment on above: Performed By: #### E RUR #### [facility] [address] [place] [address] Dr. Aleksandar Almeida Color (U) YELLOW Normal YELLOW [facility] Comment on above: Performed By: #### E RUR #### [facility] [address] [place] [address] Dr. Aleksandar MORAN A micrscopic examina tion will be performed if indicated. Normal [facility] Comment on above: Performed By: #### E RUR #### [facility] [address] [place] [address] Dr. Aleksandar Almeida Glucose Ql (U) >1000 Abnormal NEGATIVE [facility] Comment on above: Performed By: #### E RUR #### [facility] [address] [place] [address] Dr. Aleksandar Almeida Hemoglobin Ql (U) Negative Normal NEGATIVE [facility] Comment on above: Performed By: #### E RUR #### [facility] [address] [place] [address] Dr. Aleksandar Almeida Ketones Ql (U) TRACE Abnormal NEGATIVE [facility] Comment on above: Performed By: #### E RUR #### [facility] [address] [place] [address] Dr. Aleksandar Almeida LEUKOCYTES Negative Normal NEGATIVE [facility] Comment on above: Performed By: #### E RUR #### [facility] [address] [place] [address] Dr. Aleksandar Almeida Nitrite Ql (U) Negative Normal NEGATIVE [facility] Comment on above: Performed By: #### E RUR #### [facility] [address] [place] [address] Dr. Aleksandar Almeida pH (U) 6.0 [pH] Normal 5-9 [facility] Comment on above: Performed By: #### E RUR #### [facility] [address] [place] [address] Dr. Aleksandar Almeida SPEC GRAVITY 1.020 Normal 1.005-<=1.02 5 [facility] Comment on above: Performed By: #### E RUR #### [facility] [address] [place] [address] Dr. Aleksandar Almeida UA PROTEIN Negative Normal NEGATIVE/ TRACE [facility] Comment on above: Performed By: #### E RUR #### [facility] [address] [place] [address] Dr. Aleksandar Almeida UR MICRO IND NOT INDICATED Normal [facility] Comment on above: Performed By: #### E RUR #### [facility] [address] [place] [address] Dr. Aleksandar Almeida Urobilinogen Qn (U) 0.2 {Jacinta'U}/dL Normal 0.2 - 1. 0 [facility] Comment on above: Performed By: #### E RUR #### [facility] [address] [place] [address] Dr. Aleksandar Almeida LIPASEon 10-26-2022 Lipase [Catalytic activity/Vol] 47.0 U/L Critically low 73.0-393.0 [facility] Comment on above: Performed By: #### B MP, LIVER, LIPA, CHACHA ####[facility] [address] [address]Dr. Aleksandar Almeida LIVER PROFILEon 10-26-2022 Albumin [Mass/Vol] 3.2 g/dL Critically low 3.4-5.0 [facility] Comment on above: Performed By: #### B MP, LIVER, LIPA, CHACHA #### [facility] [address] [place] [address] Dr. Aleksandar Almeida Albumin/Globulin [Mass ratio] 0.9 {ratio} Normal [facility] Comment on above: Performed By: #### B MP, LIVER, LIPA, CHACHA #### [facility] [address] [place] [address] Dr. Aleksandar Almeida ALP [Catalytic activity/Vol] 177 U/L Critically high 46-116 [facility] Comment on above: Performed By: #### B MP, LIVER, LIPA, CHACHA #### [facility] [address] [place] [address] Dr. Aleksandar Almeida ALT [Catalytic activity/Vol] 105 U/L Critically high 16-63 [facility] Comment on above: Performed By: #### B MP, LIVER, LIPA, CHACHA #### [facility] [address] [place] [address] Dr. Aleksandar Almeida AST [Catalytic activity/Vol] 74 U/L Critically high 15-37 [facility] Comment on above: Performed By: #### B MP, LIVER, LIPA, CHACHA #### [facility] [address] [place] [address] Dr. Aleksandar Almeida BILI, CONJUGATED 0.4 mg/dL Critically high 0.0-0.2 [facility] Comment on above: Performed By: #### B MP, LIVER, LIPA, CHACHA #### [facility] [address] [place] [address] Dr. Aleksandar Almeida Bilirubin [Mass/Vol] 0.9 mg/dL Normal 0.2-1.0 [facility] Comment on above: Performed By: #### B MP, LIVER, LIPA, CHACHA #### [facility] [address] [place] [address] Dr. Aleksandar Almeida Globulin (S) [Mass/Vol] 3.6 g/dL Normal [facility] Comment on above: Performed By: #### B MP, LIVER, LIPA, CHACHA #### [facility] [address] [place] [address] Dr. Aleksandar Almeida Protein [Mass/Vol] 6.8 g/dL Normal 6.4-8.2 [facility] Comment on above: Performed By: #### B MP, LIVER, LIPA, CHACHA #### [facility] [address] [place] [address] Dr. Aleksandar Almeida POINT OF CARE GLUCOSEon 10-03 Glucose [Mass/Vol] 313 mg/dL Critically high 74-106 [facility] Comment on above: Performed By: #### P OCGLUC #### [facility] [address] [place] [address] Dr. Aleksandar Almeida PROF CHEM 8 (BAS METB)on Anion gap [Moles/Vol] 9.2 mmol/L Normal [facility] Comment on above: Performed By: #### B MP, LIVER, LIPA, CHACHA #### [facility] [address] [place] [address] Dr. Aleksandar Almeida Calcium [Mass/Vol] 9.2 mg/dL Normal 8.5-10.1 [facility] Comment on above: Performed By: #### B MP, LIVER, LIPA, CHACHA #### [facility] [address] [place] [address] Dr. Aleksandar Almeida Chloride [Moles/Vol] 102 mmol/L Normal 98-107 [facility] Comment on above: Performed By: #### B MP, LIVER, LIPA, CHACHA #### [facility] [address] [place] [address] Dr. Aleksandar Almeida CO2 [Moles/Vol] 29.7 mmol/L Normal 21.0-32.0 [facility] Comment on above: Performed By: #### B MP, LIVER, LIPA, CHACHA #### [facility] [address] [place] [address] Dr. Aleksandar Almeida Creatinine [Mass/Vol] 1.05 mg/dL Normal 0.70-1.30 [facility] Comment on above: Performed By: #### B MP, LIVER, LIPA, CHACHA #### [facility] [address] [place] [address] Dr. Aleksandar Almeida EGFR-AF UGANDAN >60 Normal >=60 [facility] Comment on above: Performed By: #### B MP, LIVER, LIPA, CHACHA #### [facility] [address] [place] [address] Dr. Aleksandar Almeida EGFR-NON AF UGANDAN >60 Normal >=60 [facility] Comment on above: Performed By: #### B MP, LIVER, LIPA, CHACHA #### [facility] [address] [place] [address] Dr. Aleksandar Almeida Glucose [Mass/Vol] 357 mg/dL Critically high 74-106 [facility] Comment on above: Performed By: #### B MP, LIVER, LIPA, CHACHA #### [facility] [address] [place] [address] Dr. Aleksandar Almeida Potassium [Moles/Vol] 3.9 mmol/L Normal 3.5-5.1 [facility] Comment on above: Performed By: #### B MP, LIVER, LIPA, CHACHA #### [facility] [address] [address] [address] Aleksandar Almeida Sodium [Moles/Vol] 137 mmol/L Normal 136-145 [facility] Comment on above: Performed By: #### B MP, LIVER, LIPA, CHACHA #### [facility] [address] [address] [address] Aleksandar Almeida Urea nitrogen [Mass/Vol] 17.0 mg/dL Normal 7.0-18.0 [facility] Comment on above: Performed By: #### B MP, LIVER, LIPA, CHACHA #### [facility] [address] [address] [address] Aleksandar Almeida Urea nitrogen/Creatinine [Mass ratio] 16.2 mg/mg Normal [facility] Comment on above: Performed By: #### B MP, LIVER, LIPA, CHACHA #### [facility] [address] [place] [address] Dr. Aleksandar Almeida TACROLIMUSon 08-10-2022 Tacrolimus (Bld) [Mass/Vol] 7.2 ng/mL Normal 2.0 - 15.0 [facility] Comment on above: Result Comment: NOTE : Result was obtained using a chemiluminescent microparticle immunoassay (CMIA) on the St[employer] Roller [employer] Crusher Operator i system. Optimal therapeutic ranges for immuno- suppressant drugs depend upon an individual patient's current clinical state, type of organ transplant, time post-transplant, co-administration of other immunosuppressants, and other clinical factors. The results of this test should be correlated with additional clinical and laboratory data before changes in treatment regimens are made. Performed By: #### F [id number] #### [facility] [id number] [place] [address] Albumin [Mass/volume] in Ser um or PlasmaOrdered By: Sharan Ayoub on 08-09-2022 Albumin [Mass/Vol] 3.7 g/dL 3.2-5.5 [facility] Basophils Auto (Bld) [#/Vol] Ordered By: Sharan Ayoub on 08-09-2022 Basophils (Bld) [#/Vol] 0.1 10*3/uL 0.0-0.2 [facility] Basophils/100 WBC Auto (Bld) Ordered By: Sharan Ayoub on 08-09-2022 Basophils/100 WBC (Bld) 1.1 % . [facility] Creatinine and Glomerular fi ltration rate.predicted panel (S/P/Bld)Ordered By: Sharan Ayoub on 08-09-2022 Creatinine [Mass/Vol] 1.13 mg/dL 0.64-1.27 [facility] Eosinophils Auto (Bld) [#/Vo l]Ordered By: Sharan Ayoub on 08-09-2022 Eosinophils (Bld) [#/Vol] 0.0 10*3/uL 0.0-0.45 [facility] Eosinophils/100 WBC Auto (Bl d)Ordered By: Sharan Ayoub on 08-09-2022 Eosinophils/100 WBC (Bld) 0.7 % . [facility] Erythrocyte distribution wid th Auto (RBC) [Ratio]Ordered By: Sharan Ayoub on 08-09-2022 Erythrocyte distribution width (RBC) [Ratio] 13.3 % 12.0-14.8 [facility] Estimated glomerular filtrat ion rate (GFR) non- AmericanOrdered By: Sharan Ayoub on 08-09-2022 GFR/1.73 sq M.predicted among non-blacks MDRD (S/P/Bld) [Vol rate/Area] > 60 mL/Min [facility] Globulin Calc (S) [Mass/Vol] Ordered By: Sharan Ayoub on 08-09-2022 Globulin (S) [Mass/Vol] 3.6 g/dL [facility] Hematocrit Auto (Bld) [Volum e fraction]Ordered By: Sharan Ayoub on 08-09-2022 Hematocrit (Bld) [Volume fraction] 42.9 % 38.8-50.0 [facility] Hemoglobin [Mass/volume] in BloodOrdered By: Sharan Ayoub on 08-09-2022 Hemoglobin (Bld) [Mass/Vol] 14.5 g/dL 13.0-17.0 [facility] Laboratory - Hematology and Cell countsOrdered By: Sharan Ayoub on 08-09-2022 Nucleated RBC/100 WBC (Bld) [Ratio] 0.1 % 0-0.5 [facility] Leukocytes [#/volume] in Blo od by Automated countOrdered By: Sharan Ayoub on 08-09-2022 WBC (Bld) [#/Vol] 5.8 10*3/uL 4.5-11.0 [facility] Lymphocytes Auto (Bld) [#/Vo l]Ordered By: Sharan Ayoub on 08-09-2022 Lymphocytes (Bld) [#/Vol] 2.4 10*3/uL 1.00-4.8 [facility] Lymphocytes/100 WBC Auto (Bl d)Ordered By: Sharan Ayoub on 08-09-2022 Lymphocytes/100 WBC (Bld) 41.4 % . [facility] MCH Auto (RBC) [Entitic mass ]Ordered By: Sharan Ayoub on 08-09-2022 MCH (RBC) [Entitic mass] 31.2 pg 27.5-35.2 [facility] MCHC Auto (RBC) [Mass/Vol]Or dered By: Sharan Ayoub on 08-09-2022 MCHC (RBC) [Mass/Vol] 33.8 g/dL 32.5-35.6 [facility] MCV Auto (RBC) [Entitic vol] Ordered By: Sharan Ayoub on 08-09-2022 MCV (RBC) [Entitic vol] 92.5 fL 83.5-101 [facility] Monocytes Auto (Bld) [#/Vol] Ordered By: Sharan Ayoub on 08-09-2022 Monocytes (Bld) [#/Vol] 0.4 10*3/uL 0.0-0.8 [facility] Monocytes/100 WBC Auto (Bld) Ordered By: Sharan Ayoub on 08-09-2022 Monocytes/100 WBC (Bld) 7.6 % . [facility] Neutrophils Auto (Bld) [#/Vo l]Ordered By: Sharan Ayoub on 08-09-2022 Neutrophils (Bld) [#/Vol] 2.9 10*3/uL 1.8-7.7 [facility] Neutrophils/100 WBC Auto (Bl d)Ordered By: Sharan Ayoub on 08-09-2022 Neutrophils/100 WBC (Bld) 49.2 % . [facility] No Panel InformationOrdered By: Sharan Ayoub on 08-09-2022 Estimated GFR () > 60 mL/Min [facility] Comment on above: GFR estimated refere nce range: According to KDOQI guidelines, <60 ml/min/1.73m2 is sufficient to diagnose a patient with chronic kidney disease. Pharmacy Creatinine Clearance (Chem N/A [facility] Tacrolimus (Prograf) Level Sent to [facility] Platelet mean volume Auto (B ld) [Entitic vol]Ordered By: Sharan Ayoub on 08-09-2022 Platelet mean volume (Bld) [Entitic vol] 10.2 fL 6.6-10.1 [facility] Platelets Auto (Bld) [#/Vol] Ordered By: Sharan Ayoub on 08-09-2022 Platelets (Bld) [#/Vol] 202 10*3/uL 150-450 [facility] Protein [Mass/volume] in Ser um or PlasmaOrdered By: Sharan Ayoub on 08-09-2022 Protein [Mass/Vol] 7.3 g/dL 6.1-7.9 [facility] RBC Auto (Bld) [#/Vol]Ordere d By: Sharan Ayoub on 08-09-2022 RBC (Bld) [#/Vol] 4.64 10*6/uL 3.90-5.60 [facility] Serum or plasma alanine weaver otransferase measurement without P-5'-P (enzymatic activiOrdered By: Sharan Ayoub on 08-09-2022 ALT No additional P-5'-P [Catalytic activity/Vol] 73 U/L 10-60 [facility] Serum or plasma albumin/glob ulin mass ratioOrdered By: Sharan Ayoub on 08-09-2022 Albumin/Globulin [Mass ratio] 1.0 {ratio} [facility] Serum or plasma alkaline roe sphatase measurement (enzymatic activity/volume)Ordered By: Sharan Ayoub on 08-09-2022 ALP [Catalytic activity/Vol] 134 U/L 32-92 [facility] Serum or plasma anion gap de terminationOrdered By: Sharan Ayoub on 08-09-2022 Anion gap [Moles/Vol] 10.3 mmol/L 6.0-15.0 [facility] Serum or plasma aspartate am inotransferase measurement (enzymatic activity/volume)Ordered By: Sharan Ayoub on 08-09-2022 AST [Catalytic activity/Vol] 73 U/L 10-42 [facility] Serum or plasma calcium vini urement (mass/volume)Ordered By: Sharan Ayoub on 08-09-2022 Calcium [Mass/Vol] 9.5 mg/dL 8.2-10.2 [facility] Serum or plasma chloride jose surement (moles/volume)Ordered By: Sharan Ayoub on 08-09-2022 Chloride [Moles/Vol] 98 mmol/L 95-114 [facility] Serum or plasma glucose vini urement (mass/volume)Ordered By: Sharan Ayoub on 08-09-2022 Glucose [Mass/Vol] 154 mg/dL 70-100 [facility] Comment on above: ADA recommended refe rence rangeRandom Glucose Reference Range is dependent on time and content of last meal. Glucose of more than 200 mg/dL in a nonstressed, ambulatory subject supports the diagnosis of Diabetes Mellitus. Serum or plasma potassium me asurement (moles/volume)Ordered By: Sharan Ayoub on 08-09-2022 Potassium [Moles/Vol] 3.7 mmol/L 3.5-5.1 [facility] Serum or plasma sodium measu rement (moles/volume)Ordered By: Sharan Ayoub on 08-09-2022 Sodium [Moles/Vol] 135 mmol/L 136-146 [facility] Serum or plasma total biliru bin measurement (mass/volume)Ordered By: Sharan Ayoub on 08-09-2022 Bilirubin [Mass/Vol] 1.0 mg/dL 0.3-1.2 [facility] Serum or plasma total carbon dioxide measurement (moles/volume)Ordered By: Sharan Ayoub on 08-09-2022 CO2 [Moles/Vol] 30.4 mmol/L 22.0-30.0 [facility] Serum or plasma urea nitroge n measurement (mass/volume)Ordered By: Sharan Ayoub on 08-09-2022 Urea nitrogen [Mass/Vol] 11 mg/dL 06-24 [facility] Tacrolimuson 08-09-2022 Tacrolimus (Bld) [Mass/Vol] 7.2 ng/mL 2.0 - 15.0 [facility] [place] [address] Work Phone: Comment on above: NOTE: Result was obt ained using a chemiluminescent microparticle immunoassay (CMIA) on the Stem Roller Or Crusher Operator i system.Optimal therapeutic ranges for immuno-suppressant drugs depend upon an individualpatient's current clinical state, type oforgan transplant, time post-transplant,co-administration of other immunosuppressants,and other clinical factors. The results ofthis test should be correlated with additionalclinical and laboratory data before changesin treatment regimens are made. 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) Orders Immunosuppression, Liver replaced by transplant Renew: Mycophenolate Mofetil 250 MG Oral Capsule; TAKE 1 CAPSULE BY MOUTH EVERY 12 HOURS Rx By: Sharan Ayoub; Dispense: 30 Days ; #:60 Capsule; Refill: 11;For: Immunosuppression, Liver replaced by transplant; JOSEFINA = N; Verified Transmission to [employer] [id number] Formulary Override Reason: Drug is not indicated for Patient condition Patient Discussion/Summary continue your current medications as prescribed see a forest technology professor for your annual skin check up have blood work drawn for your medication levels and liver function tests in 6 months work on diet and exercise Avoid foods which contain complex sugars like wheat, rice, potatoes and corn Avoid eating foods that are rich in sugar in excess such as hgih sugar fruits (pineapple, neal...) and desserts, cakes and pies Eat more good foods that are rich in good fat such as cold water fish (salmon, swordfish...) as well as avocados and peanut butter in moderation Snack on nuts that are high in protein and good oils such as walnuts, almonds. Eat a mediteranean diet which is rich in grilled lean meats, high protein beans and legumes and olive oil Exercise for 30 minutes or more at least 3 times a week focus on exercises that build muscle mass like working with weights and lifting. Try swimming or water aerobics if you have access to a pool Aim to lose 7-10% of your total body weight over 6-12 months return to transplant clinic in 6 months Provider Impressions the patient will continue current immunosuppression regimen and will have drug level checked at follow up lab draw we recommended annual dermatological examination we counseled on diet and exercise we will see the patient in follow up in 6 months Chief Complaint s/p liver transplant History of Present IllnessThe patient feels well and labs are at baseline. there is no complaint of cognitive impairment or fluid overload Upper Gastrointestinal: no abdominal pain, no eructation, no difficulty swallowing, no early satiety, no heartburn, no jaundiced, no nausea. Lower Gastrointestinal: no abdominal swelling, no bloating, no constipation. Liver Disease no alteration in sleep wake cycle, no ankle swelling, no cognitive impairment, no confusion. Symptom History: Modifying Factors: Associated Symptoms: Review of Systems Constitutional: no fever and no chills. Cardiovascular: the heart rate was not slow and the heart rate was not fast. Genitourinary: no dysuria and no incontinence. 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) Type 1 diabetes mellitus (250.01) (E10.9) Past Medical History Problems History of Abdominal pain, RLQ (789.03) (R10.31) Resolved Date: 25 Apr 2018 History of Autoimmune hepatitis (571.42) (K75.4) History of Drug-induced constipation (564.09,E980.5) (K59.03) Resolved Date: 25 Apr 2018 History of acne (V13.3) (Z87.2) Resolved Date: 25 Apr 2018 History of essential hypertension (V12.59) (Z86.79) History of hyperthyroidism (V12.29) (Z86.39) Resolved Date: 25 Apr 2018 History of thyroiditis (V12.29) (Z86.39) Resolved Date: 25 Apr 2018 History of type 1 diabetes mellitus (V12.29) (Z86.39) History of vitamin D deficiency (V12.1) (Z86.39) Resolved Date: 25 Apr 2018 Surgical History Problems History of Liver Transplant Family History Mother No pertinent family history Social History Problems Does not use tobacco (V49.89) (Z78.9) Never a smoker No alcohol use No illicit drug use Allergies Medication No Known Drug Allergies Recorded By: Perry Morse; 04/13/2016 1:44:22 PM Current Meds Medication NameInstruction Alcohol Pads 70 % PadUse 4 a day as directed amLODIPine Besylate 5 MG Oral TabletTake 1 tablet daily Aspirin 81 MG Oral Tablet Delayed ReleaseTAKE 1 TABLET DAILY. Atif Microlet Lancets MISCTest blood sugars 5 times a day as directed Contour Next Test In Vitro StripTest blood sugars 5 times a day as directed HumaLOG 100 UNIT/ML SOLNUse as directed Via insulin pump Magnesium Oxide (Elemental) 400 MG Oral TabletTake 1 tablet twice daily Multi-Vitamins TABSTAKE 1 TABLET DAILY. Mycophenolate Mofetil 250 MG Oral CapsuleTAKE 1 CAPSULE BY MOUTH EVERY 12 HOURS OneTouch Delica Lancets 33GTEST BLOOD SUGA (more content not included)... Normal [employer] Tobacco Screening.on 022 Fall risk assessment a) No falls within the last year [facility] Work Phone: Tobacco use status [facility] b) No [facility] Work Phone: No Panel InformationOrdered By: Sharan Ayoub on 05-11-2022 Tacrolimus (Prograf) Level Sent to [facility] Tacrolimuson 05-11-2022 Tacrolimus (Bld) [Mass/Vol] 9.9 ng/mL 2.0 - 15.0 [facility] [employer] Work Phone: Comment on above: NOTE: Result was obt ained using a chemiluminescent microparticle immunoassay (CMIA) on the [employer] Rol[employer] Crus[employer] i system.Optimal therapeutic ranges for immuno-suppressant drugs depend upon an individualpatient's current clinical state, type oforgan transplant, time post-transplant,co-administration of other immunosuppressants,and other clinical factors. The results ofthis test should be correlated with additionalclinical and laboratory data before changesin treatment regimens are made. Tacrolimuson 05-04-2022 Tacrolimus (Bld) [Mass/Vol] 15.9 ng/mL above high threshold 2.0 - 15.0 [facility] [employer] Work Phone: Comment on above: NOTE: Result was obt ained using a chemiluminescent microparticle immunoassay (CMIA) on the [employer] Crus[employer] i system.Optimal therapeutic ranges for immuno-suppressant drugs depend upon an individualpatient's current clinical state, type oforgan transplant, time post-transplant,co-administration of other immunosuppressants,and other clinical factors. The results ofthis test should be correlated with additionalclinical and laboratory data before changesin treatment regimens are made. Albumin [Mass/volume] in Ser um or PlasmaOrdered By: Sharan Ayoub on 05-03-2022 Albumin [Mass/Vol] 3.7 g/dL 3.2-5.5 [facility] Basophils Auto (Bld) [#/Vol] Ordered By: Sharan Ayoub on 05-03-2022 Basophils (Bld) [#/Vol] 0.0 10*3/uL 0.0-0.2 [facility] Basophils/100 WBC Auto (Bld) Ordered By: Sharan Ayoub on 05-03-2022 Basophils/100 WBC (Bld) 0.3 % . [facility] Blood hemoglobin measurement (mass/volume)Ordered By: Sharan Ayoub on 05-03-2022 Hemoglobin (Bld) [Mass/Vol] 14.4 g/dL 13.0-17.0 [facility] Blood leukocytes automated c ount (number/volume)Ordered By: Sharan Ayoub on 05-03-2022 WBC (Bld) [#/Vol] 7.1 10*3/uL 4.5-11.0 [facility] Creatinine and Glomerular fi ltration rate.predicted panel (S/P/Bld)Ordered By: Sharan Ayoub on 05-03-2022 Creatinine [Mass/Vol] 1.10 mg/dL 0.64-1.27 [facility] Direct bilirubin measurement Ordered By: Sharan Ayoub on 05-03-2022 Bilirubin.direct [Mass/Vol] 0.2 mg/dL 0.0-0.4 [facility] Eosinophils Auto (Bld) [#/Vo l]Ordered By: Sharan Ayoub on 05-03-2022 Eosinophils (Bld) [#/Vol] 0.2 10*3/uL 0.0-0.45 [facility] Eosinophils/100 WBC Auto (Bl d)Ordered By: Sharan Ayoub on 05-03-2022 Eosinophils/100 WBC (Bld) 2.3 % . [facility] Erythrocyte distribution wid th Auto (RBC) [Ratio]Ordered By: Sharan Ayoub on 05-03-2022 Erythrocyte distribution width (RBC) [Ratio] 13.2 % 12.0-14.8 [facility] Estimated glomerular filtrat ion rate (GFR) non- AmericanOrdered By: Sharan Ayoub on 05-03-2022 GFR/1.73 sq M.predicted among non-blacks MDRD (S/P/Bld) [Vol rate/Area] > 60 mL/Min [facility] Globulin Calc (S) [Mass/Vol] Ordered By: Sharan Ayoub on 05-03-2022 Globulin (S) [Mass/Vol] 3.0 g/dL [facility] Hematocrit Auto (Bld) [Volum e fraction]Ordered By: Sharan Ayoub on 05-03-2022 Hematocrit (Bld) [Volume fraction] 42.8 % 38.8-50.0 [facility] Laboratory - Chemistry and C hemistry - challengeOrdered By: Sharan Ayoub on 05-03-2022 Amylase [Catalytic activity/Vol] 327 U/L 7-64 [facility] Laboratory - Hematology and Cell countsOrdered By: Sharan Ayoub on 05-03-2022 Nucleated RBC/100 WBC (Bld) [Ratio] 0.3 % 0-0.5 [facility] Lymphocytes Auto (Bld) [#/Vo l]Ordered By: Sharan Ayoub on 05-03-2022 Lymphocytes (Bld) [#/Vol] 3.6 10*3/uL 1.00-4.8 [facility] Lymphocytes/100 WBC Auto (Bl d)Ordered By: Sharan Ayoub on 05-03-2022 Lymphocytes/100 WBC (Bld) 50.0 % . [facility] MCH Auto (RBC) [Entitic mass ]Ordered By: Sharan Ayoub on 05-03-2022 MCH (RBC) [Entitic mass] 30.9 pg 27.5-35.2 [facility] MCHC Auto (RBC) [Mass/Vol]Or dered By: Sharan Ayoub on 05-03-2022 MCHC (RBC) [Mass/Vol] 33.7 g/dL 32.5-35.6 [facility] MCV Auto (RBC) [Entitic vol] Ordered By: Sharan Ayoub on 05-03-2022 MCV (RBC) [Entitic vol] 91.8 fL 83.5-101 [facility] Monocytes Auto (Bld) [#/Vol] Ordered By: Sharan Ayoub on 05-03-2022 Monocytes (Bld) [#/Vol] 0.6 10*3/uL 0.0-0.8 [facility] Monocytes/100 WBC Auto (Bld) Ordered By: Sharan Ayoub on 05-03-2022 Monocytes/100 WBC (Bld) 8.9 % . [facility] Neutrophils Auto (Bld) [#/Vo l]Ordered By: Sharan Ayoub on 05-03-2022 Neutrophils (Bld) [#/Vol] 2.8 10*3/uL 1.8-7.7 [facility] Neutrophils/100 WBC Auto (Bl d)Ordered By: Sharan Ayoub on 05-03-2022 Neutrophils/100 WBC (Bld) 38.5 % . [facility] No Panel InformationOrdered By: Sharan Ayoub on 05-03-2022 Estimated GFR () > 60 mL/Min [facility] Comment on above: GFR estimated refere nce range: According to KDOQI guidelines, <60 ml/min/1.73m2 is sufficient to diagnose a patient with chronic kidney disease. Pharmacy Creatinine Clearance (Chem N/A [facility] Tacrolimus (Prograf) Level Sent to [facility] Platelet mean volume Auto (B ld) [Entitic vol]Ordered By: Sharan Ayoub on 05-03-2022 Platelet mean volume (Bld) [Entitic vol] 10.2 fL 6.6-10.1 [facility] Platelets Auto (Bld) [#/Vol] Ordered By: Sharan Ayoub on 05-03-2022 Platelets (Bld) [#/Vol] 247 10*3/uL 150-450 [facility] Protein [Mass/volume] in Ser um or PlasmaOrdered By: Sharan Ayoub on 05-03-2022 Protein [Mass/Vol] 6.7 g/dL 6.1-7.9 [facility] RBC Auto (Bld) [#/Vol]Ordere d By: Sharan Ayoub on 05-03-2022 RBC (Bld) [#/Vol] 4.66 10*6/uL 3.90-5.60 [facility] Serum or plasma alanine weaver otransferase measurement without P-5'-P (enzymatic activiOrdered By: Sharan Ayoub on 05-03-2022 ALT No additional P-5'-P [Catalytic activity/Vol] 47 U/L 10-60 [facility] Serum or plasma albumin/glob ulin mass ratioOrdered By: Sharan Ayoub on 05-03-2022 Albumin/Globulin [Mass ratio] 1.2 {ratio} [facility] Serum or plasma alkaline roe sphatase measurement (enzymatic activity/volume)Ordered By: Sharan Ayoub on 05-03-2022 ALP [Catalytic activity/Vol] 123 U/L 32-92 [facility] Serum or plasma aspartate am inotransferase measurement (enzymatic activity/volume)Ordered By: Sharan Ayoub on 05-03-2022 AST [Catalytic activity/Vol] 42 U/L 10-42 [facility] Serum or plasma calcium vini urement (mass/volume)Ordered By: Sharan Ayoub on 05-03-2022 Calcium [Mass/Vol] 9.4 mg/dL 8.2-10.2 [facility] Serum or plasma chloride jose surement (moles/volume)Ordered By: Sharan Ayoub on 05-03-2022 Chloride [Moles/Vol] 104 mmol/L 95-114 [facility] Serum or plasma glucose vini urement (mass/volume)Ordered By: Sharan Ayoub on 05-03-2022 Glucose [Mass/Vol] 117 mg/dL 70-100 [facility] Comment on above: ADA recommended refe rence range Random Glucose Reference Range is dependent on time and content of last meal. Glucose of more than 200 mg/dL in a nonstressed, ambulatory subject supports the diagnosis of Diabetes Mellitus. Serum or plasma non-glucuron idated bilirubin measurement (mass/volume)Ordered By: Sharan Ayoub on 05-03-2022 Bilirubin.indirect [Mass/Vol] 0.5 mg/dL [facility] Serum or plasma potassium me asurement (moles/volume)Ordered By: Sharan Ayoub on 05-03-2022 Potassium [Moles/Vol] 4.1 mmol/L 3.5-5.1 [facility] Serum or plasma sodium measu rement (moles/volume)Ordered By: Sharan Ayoub on 05-03-2022 Sodium [Moles/Vol] 140 mmol/L 136-146 [facility] Serum or plasma total biliru bin measurement (mass/volume)Ordered By: Sharan Ayoub on 05-03-2022 Bilirubin [Mass/Vol] 0.7 mg/dL 0.3-1.2 [facility] Serum or plasma total carbon dioxide measurement (moles/volume)Ordered By: Sharan Ayoub on 05-03-2022 CO2 [Moles/Vol] 28.6 mmol/L 22.0-30.0 [facility] Serum or plasma urea nitroge n measurement (mass/volume)Ordered By: Sharan Ayoub on 05-03-2022 Urea nitrogen [Mass/Vol] 16 mg/dL 9-23 [facility] Basophils Auto (Bld) [#/Vol] Ordered By: Sharan Ayoub on 03-11-2022 Basophils (Bld) [#/Vol] 0.1 10*3/uL 0.0-0.2 [facility] Basophils/100 WBC Auto (Bld) Ordered By: Sharan Ayoub on 03-11-2022 Basophils/100 WBC (Bld) 1.2 % . [facility] Blood hemoglobin measurement (mass/volume)Ordered By: Sharan Ayoub on 03-11-2022 Hemoglobin (Bld) [Mass/Vol] 14.1 g/dL 13.0-17.0 [facility] Blood leukocytes automated c ount (number/volume)Ordered By: Sharan Ayoub on 03-11-2022 WBC (Bld) [#/Vol] 5.0 10*3/uL 4.5-11.0 [facility] Body fluid albumin measureme nt (mass/volume)Ordered By: Sharan Ayoub on 03-11-2022 Albumin (Body fld) [Mass/Vol] 3.6 g/dL 3.2-5.5 [facility] Creatinine and Glomerular fi ltration rate.predicted panel (S/P/Bld)Ordered By: Sharan Ayoub on 03-11-2022 Creatinine [Mass/Vol] 1.15 mg/dL 0.64-1.27 [facility] Direct bilirubin measurement Ordered By: Sharan Ayoub on 03-11-2022 Bilirubin.direct [Mass/Vol] 0.2 mg/dL 0.0-0.4 [facility] Eosinophils Auto (Bld) [#/Vo l]Ordered By: Sharan Ayoub on 03-11-2022 Eosinophils (Bld) [#/Vol] 0.1 10*3/uL 0.0-0.45 [facility] Eosinophils/100 WBC Auto (Bl d)Ordered By: Sharan Ayoub on 03-11-2022 Eosinophils/100 WBC (Bld) 2.1 % . [facility] Erythrocyte distribution wid th Auto (RBC) [Ratio]Ordered By: Sharan Ayoub on 03-11-2022 Erythrocyte distribution width (RBC) [Ratio] 13.3 % 12.0-14.8 [facility] Estimated glomerular filtrat ion rate (GFR) non- AmericanOrdered By: Sharan Ayoub on 03-11-2022 GFR/1.73 sq M.predicted among non-blacks MDRD (S/P/Bld) [Vol rate/Area] > 60 mL/Min [facility] Globulin Calc (S) [Mass/Vol] Ordered By: Sharan Ayoub on 03-11-2022 Globulin (S) [Mass/Vol] 2.9 g/dL [facility] Hematocrit Auto (Bld) [Volum e fraction]Ordered By: Sharan Ayoub on 03-11-2022 Hematocrit (Bld) [Volume fraction] 41.4 % 38.8-50.0 [facility] Laboratory - Chemistry and C hemistry - challengeOrdered By: Sharan Ayoub on 03-11-2022 Amylase [Catalytic activity/Vol] 269 U/L 7-64 [facility] - Hematology and Cell countsOrdered By: Sharan Ayoub on 03-11-2022 Nucleated RBC/100 WBC (Bld) [Ratio] 0.1 % 0-0.5 [facility] Lymphocytes Auto (Bld) [#/Vo l]Ordered By: Sharan Ayoub on 03-11-2022 Lymphocytes (Bld) [#/Vol] 2.4 10*3/uL 1.00-4.8 [facility] Lymphocytes/100 WBC Auto (Bl d)Ordered By: Sharan Ayoub on 03-11-2022 Lymphocytes/100 WBC (Bld) 47.7 % . [facility] MCH Auto (RBC) [Entitic mass ]Ordered By: Sharan Ayoub on 03-11-2022 MCH (RBC) [Entitic mass] 31.4 pg 27.5-35.2 [facility] MCHC Auto (RBC) [Mass/Vol]Or dered By: Sharan Ayoub on 03-11-2022 MCHC (RBC) [Mass/Vol] 34.0 g/dL 32.5-35.6 [facility] MCV Auto (RBC) [Entitic vol] Ordered By: Sharan Ayoub on 03-11-2022 MCV (RBC) [Entitic vol] 92.2 fL 83.5-101 [facility] Monocytes Auto (Bld) [#/Vol] Ordered By: Sharan Ayoub on 03-11-2022 Monocytes (Bld) [#/Vol] 0.5 10*3/uL 0.0-0.8 [facility] Monocytes/100 WBC Auto (Bld) Ordered By: Sharan Ayoub on 03-11-2022 Monocytes/100 WBC (Bld) 10.3 % . [facility] Neutrophils Auto (Bld) [#/Vo l]Ordered By: Sharan Ayoub on 03-11-2022 Neutrophils (Bld) [#/Vol] 1.9 10*3/uL 1.8-7.7 [facility] Neutrophils/100 WBC Auto (Bl d)Ordered By: Sharan Ayoub on 03-11-2022 Neutrophils/100 WBC (Bld) 38.7 % . [facility] No Panel InformationOrdered By: Sharan Ayoub on 03-11-2022 Estimated GFR () > 60 mL/Min [facility] Comment on above: GFR estimated refere nce range: According to KDOQI guidelines, <60 ml/min/1.73m2 is sufficient to diagnose a patient with chronic kidney disease. Pharmacy Creatinine Clearance (Chem N/A [facility] Tacrolimus (Prograf) Level Sent to [facility] Platelet mean volume Auto (B ld) [Entitic vol]Ordered By: Sharan Ayoub on 03-11-2022 Platelet mean volume (Bld) [Entitic vol] 10.4 fL 6.6-10.1 [facility] Platelets Auto (Bld) [#/Vol] Ordered By: Sharan Ayoub on 03-11-2022 Platelets (Bld) [#/Vol] 232 10*3/uL 150-450 [facility] Protein [Mass/volume] in Ser um or PlasmaOrdered By: Sharan Ayoub on 03-11-2022 Protein [Mass/Vol] 6.5 g/dL 6.1-7.9 [facility] RBC Auto (Bld) [#/Vol]Ordere d By: Sharan Ayoub on 03-11-2022 RBC (Bld) [#/Vol] 4.49 10*6/uL 3.90-5.60 [facility] Serum or plasma alanine weaver otransferase measurement without P-5'-P (enzymatic activiOrdered By: Sharan Ayoub on 03-11-2022 ALT No additional P-5'-P [Catalytic activity/Vol] 54 U/L 10-60 [facility] Serum or plasma albumin/glob ulin mass ratioOrdered By: Sharan Ayoub on 03-11-2022 Albumin/Globulin [Mass ratio] 1.2 {ratio} [facility] Serum or plasma alkaline roe sphatase measurement (enzymatic activity/volume)Ordered By: Sharan Ayoub on 03-11-2022 ALP [Catalytic activity/Vol] 109 U/L 32-92 [facility] Serum or plasma aspartate am inotransferase measurement (enzymatic activity/volume)Ordered By: Sharan Ayoub on 03-11-2022 AST [Catalytic activity/Vol] 59 U/L 10-42 [facility] Serum or plasma calcium vini urement (mass/volume)Ordered By: Sharan Ayoub on 03-11-2022 Calcium [Mass/Vol] 9.5 mg/dL 8.2-10.2 [facility] Serum or plasma chloride jose surement (moles/volume)Ordered By: Sharan Ayoub on 03-11-2022 Chloride [Moles/Vol] 102 mmol/L 95-114 [facility] Serum or plasma glucose vini urement (mass/volume)Ordered By: Sharan Ayoub on 03-11-2022 Glucose [Mass/Vol] 219 mg/dL 70-100 [facility] Comment on above: ADA recommended refe rence range Random Glucose Reference Range is dependent on time and content of last meal. Glucose of more than 200 mg/dL in a nonstressed, ambulatory subject supports the diagnosis of Diabetes Mellitus. Serum or plasma non-glucuron idated bilirubin measurement (mass/volume)Ordered By: Sharan Ayoub on 03-11-2022 Bilirubin.indirect [Mass/Vol] 0.8 mg/dL [facility] Serum or plasma potassium me asurement (moles/volume)Ordered By: Sharan Ayoub on 03-11-2022 Potassium [Moles/Vol] 4.3 mmol/L 3.5-5.1 [facility] Serum or plasma sodium measu rement (moles/volume)Ordered By: Sharan Ayoub on 03-11-2022 Sodium [Moles/Vol] 140 mmol/L 136-146 [facility] Serum or plasma total biliru bin measurement (mass/volume)Ordered By: Sharan Ayoub on 03-11-2022 Bilirubin [Mass/Vol] 1.0 mg/dL 0.3-1.2 [facility] Serum or plasma total carbon dioxide measurement (moles/volume)Ordered By: Sharan Ayoub on 03-11-2022 CO2 [Moles/Vol] 27.7 mmol/L 22.0-30.0 [facility] Serum or plasma urea nitroge n measurement (mass/volume)Ordered By: Sharan Ayoub on 03-11-2022 Urea nitrogen [Mass/Vol] 11 mg/dL 9-23 [facility] Tacrolimuson 03-11-2022 Tacrolimus (Bld) [Mass/Vol] 11.7 ng/mL 2.0 - 15.0 [facility] [address] [facility] Work Phone: Comment on above: NOTE: Result was obt ained using a chemiluminescent microparticle immunoassay (CMIA) on the [employer] Rol[employer] Crusher Operator i system.Optimal therapeutic ranges for immuno-suppressant drugs depend upon an individualpatient's current clinical state, type oforgan transplant, time post-transplant,co-administration of other immunosuppressants,and other clinical factors. The results ofthis test should be correlated with additionalclinical and laboratory data before changesin treatment regimens are made. AMYLASEon 12-24-2021 Amylase [Catalytic activity/Vol] 60 U/L Normal 25-115 [facility] Comment on above: Performed By: #### L IPA, CHACHA, LIVER, BMP #### [facility] [address] [place] [address] Dr. Aleksandar Almeida CBC AUTO DIFFon 12-24-2021 BASO # 0.1 103/ul Normal 0.0-0.1 [facility] Comment on above: Performed By: #### C BC #### [facility] [address] [place] [address] Dr. Aleksandar Almeida Basophils/100 WBC (Bld) 0.7 % Normal 0.2-2.0 [facility] Comment on above: Performed By: #### C BC #### [facility] [address] [place] [address] Dr. Aleksandar Almeida EO # 0.0 103/ul Normal 0.0-0.7 [facility] Comment on above: Performed By: #### C BC #### [facility] [address] [place] [address] Dr. Aleksandar Almeida Eosinophils/100 WBC (Bld) 0.0 % Critically low 0.9-7.0 [facility] Comment on above: Performed By: #### C BC #### [facility] [address] [place] [address] Dr. Aleksandar Almeida Erythrocyte distribution width (RBC) [Ratio] 11.9 % Normal 11.0-15.0 [facility] Comment on above: Performed By: #### C BC #### [facility] [address] [place] [address] Dr. Aleksandar Almeida Hematocrit (Bld) [Volume fraction] 42.0 % Normal 42.0-54.0 [facility] Comment on above: Performed By: #### C BC #### [facility] [address] [place] [address] Dr. Aleksandar Almeida Hemoglobin (Bld) [Mass/Vol] 14.6 g/dL Normal 14.0-18.0 [facility] Comment on above: Performed By: #### C BC #### [facility] [address] [place] [address] Dr. Aleksandar Almeida IG # 0.02 10e3/ul Normal 0.00-0.03 [facility] Comment on above: Performed By: #### C BC #### [facility] [address] [place] [address] Dr. Aleksandar Almeida IG % 0.2 % Normal 0.0-0.5 [facility] Comment on above: Performed By: #### C BC #### [facility] [address] [place] [address] Dr. Aleksandar Almeida LYMPH # 1.5 103/ul Normal 1.2-3.8 [facility] Comment on above: Performed By: #### C BC #### [facility] [address] [place] [address] Dr. Aleksandar Almeida Lymphocytes/100 WBC (Bld) 18.0 % Critically low 20.5-60.0 [facility] Comment on above: Performed By: #### C BC #### [facility] [address] [place] [address] Dr. Aleksandar Almeida MANUAL DIFF REQ NO Normal [facility] Comment on above: Performed By: #### C BC #### [facility] [address] [place] [address] Dr. Aleksandar Almeida MCH (RBC) [Entitic mass] 30.9 pg Normal 25.9-34.0 [facility] Comment on above: Performed By: #### C BC #### [facility] [address] [place] [address] Dr. Aleksandar Almeida MCHC (RBC) [Mass/Vol] 34.8 g/dL Normal 29.9-35.2 [facility] Comment on above: Performed By: #### C BC #### [facility] [address] [place] [address] Dr. Aleksandar Almeida MCV (RBC) [Entitic vol] 89.0 fL Normal 80.0-94.0 [facility] Comment on above: Performed By: #### C BC #### [facility] [address] [place] [address] Dr. Aleksandar Almeida MONO # 0.4 103/ul Normal 0.3-0.8 [facility] Comment on above: Performed By: #### C BC #### [facility] [address] [place] [address] Dr. Aleksandar Almeida Monocytes/100 WBC (Bld) 5.3 % Normal 1.7-12.0 [facility] Comment on above: Performed By: #### C BC #### [facility] [address] [place] [address] Dr. Aleksandar Almeida NEUT # 6.1 103/ul Normal 1.4-6.5 [facility] Comment on above: Performed By: #### C BC #### [facility] [address] [place] [address] Dr. Aleksandar Almeida Neutrophils/100 WBC (Bld) 75.8 % Critically high 43.0-75.0 [facility] Comment on above: Performed By: #### C BC #### [facility] [address] [place] [address] Dr. Aleksandar Almeida Platelet mean volume (Bld) [Entitic vol] 10.9 fL Normal 9.5-13.5 [facility] Comment on above: Performed By: #### C BC #### [facility] [address] [place] [address] Dr. Aleksandar Almeida PLT 235 103/ul Normal 150-450 [facility] Comment on above: Performed By: #### C BC #### [facility] [address] [place] [address] Dr. Aleksandar Almeida RBC 4.72 106/ul Normal 4.70-6.10 [facility] Comment on above: Performed By: #### C BC #### [facility] [address] [place] [address] Dr. Aleksandar Almeida WBC 8.1 103/ul Normal 4.0-11.0 [facility] Comment on above: Performed By: #### C BC #### [facility] [address] [place] [address] ABD/PELV W CONon 12-25-19 CT ABD/PELV W CON EXAMINATION: CT ABD/ PELV W CON, 12/24/2021 11:52 AM EDT HISTORY: UNSPECIFIED ABDOMINAL PAIN , right upper quadrant pain, nausea, vomiting, diarrhea, liver transplant COMPARISON: 09/09/2020 TECHNIQUE: CT scan of the abdomen and pelvis was performed with IV contrast. CT dose reduction technique was used, including Automated Exposure Control. FINDINGS: LUNG BASES: No visible pulmonary or pleural disease. LIVER: No enlargement, atrophy, abnormal density, or significant focal lesion. BILIARY: Surgical clips from cholecystectomy PANCREAS: No lesion, fluid collection, ductal dilatation, or atrophy. SPLEEN: No enlargement or focal lesion. ADRENALS: No mass or enlargement. KIDNEYS: Innumerable bilateral nonobstructing nephroliths. Bilateral cortical hypodensities too small to characterize. No hydronephrosis BOWEL/MESENTERY: No visible mass, obstruction, or bowel wall thickening. AORTA/VASCULAR: No aneurysm or dissection. RETROPERITONEUM: No mass or adenopathy. LYMPH NODES: Increased number of normal-sized mesenteric lymph nodes URINARY BLADDER: No visible focal wall thickening, lesion, or calculus. PELVIC ORGANS: Enlarged heterogeneous appearance of the seminal vesicles. Heterogeneous appearance of the prostate gland ABDOMINAL WALL: No mass or hernia. BONES: Focal hyperdensities in both femoral heads, benign enostosis is favored OTHER: Negative. IMPRESSION: Prominent heterogeneous appearance of the seminal vesicles and prostate gland, clinically correlate Electronically authenticated by: BAO GOMES Date: 2021-12-24 13:18 Normal [facility] ER URINE PROFILEon 2 Bilirubin Ql (U) Negative Normal NEGATIVE [facility] Comment on above: Performed By: #### U MICRO, ERUR ####[facility] [id number] [place] [id number] Almeida Clarity (U) CLEAR Normal CLEAR [facility] Comment on above: Performed By: #### U MICRO, ERUR ####[facility] [id number] [place] [id number] Almeida Color (U) LT. YELLOW Normal YELLOW [facility] Comment on above: Performed By: #### U MICRO, ERUR ####[facility] [facility] [address] [address]DrBaldev SYLVESTERAHD A micrscopic examina tion will be performed if indicated. Normal [facility] Comment on above: Performed By: #### U MICRO, ERUR ####[facility] [address] [address]Dr. Aleksandar Almeida Glucose Ql (U) >1000 Abnormal NEGATIVE [facility] Comment on above: Performed By: #### U MICRO, ERUR ####[facility] [address] [address]Dr. Aleksandar Almeida Hemoglobin Ql (U) SMALL Abnormal NEGATIVE [facility] Comment on above: Performed By: #### U MICRO, ERUR ####[facility] [address] [address]Dr. Aleksandar Almeida Ketones Ql (U) Negative Normal NEGATIVE [facility] Comment on above: Performed By: #### U MICRO, ERUR ####[facility] [address] [place], [place] [address]Dr. Aleksandar Almeida LEUKOCYTES TRACE Abnormal NEGATIVE [facility] Comment on above: Performed By: #### U MICRO, ERUR ####[facility] S[address] [place], [place] [address]Dr. Aleksandar Almeida Nitrite Ql (U) Negative Normal NEGATIVE [facility] Comment on above: Performed By: #### U MICRO, ERUR ####[facility] [address] [place], [place] [address]Dr. Aleksandar Almeida pH (U) 6.5 [pH] Normal 5-9 [facility] Comment on above: Performed By: #### U MICRO, ERUR ####[facility] Klx[address] [place], [place] [address]Dr. Aleksandar Almeida SPEC GRAVITY <=1.005 Abnormal 1.005-<=1.02 5 [facility] Comment on above: Performed By: #### U MICRO, ERUR ####[facility] E[address] [place], [place] [address]Dr. Aleksandar Almeida UA PROTEIN Negative Normal NEGATIVE/ TRACE [facility] Comment on above: Performed By: #### U MICRO, ERUR ####[facility] [address] [place], [place] [address]Dr. Aleksandar Almeida UR MICRO IND INDICATED Normal [facility] Comment on above: Performed By: #### U MICRO, ERUR ####[facility] [address] [address]Dr. Aleksandar Almeida Urobilinogen Qn (U) 0.2 {Jacinta'U}/dL Normal 0.2 - 1. 0 [facility] Comment on above: Performed By: #### U MICRO, ERUR ####[facility] [address] [address]Dr. Aleksandar Almeida LIPASEon 12-24-2021 Lipase [Catalytic activity/Vol] 64.0 U/L Normal 23.0-300.0 [facility] Comment on above: Performed By: #### L IPA, CHACHA, LIVER, BMP #### [facility] [address] [address] [address] Aleksandar Almeida LIVER PROFILEon 12-24-2021 Albumin [Mass/Vol] 4.0 g/dL Normal 3.4-5.0 [facility] Comment on above: Performed By: #### L IPA, CHACHA, LIVER, BMP #### [facility] [address] [address] [address] Aleksandar Almeida Albumin/Globulin [Mass ratio] 1.0 {ratio} Normal [facility] Comment on above: Performed By: #### L IPA, CHACHA, LIVER, BMP #### [facility] [address] [address] [address] Aleksandar Almeida ALP [Catalytic activity/Vol] 123 U/L Critically high 46-116 [facility] Comment on above: Performed By: #### L IPA, CHACHA, LIVER, BMP #### [facility] [address] [address] [address] Aleksandar Almeida ALT [Catalytic activity/Vol] 43 U/L Normal 16-63 [facility] Comment on above: Performed By: #### L IPA, CHACHA, LIVER, BMP #### [facility] [address] [address] [address] Aleksandar Almeida AST [Catalytic activity/Vol] 39 U/L Critically high 15-37 [facility] Comment on above: Performed By: #### L IPA, CHACHA, LIVER, BMP #### [facility] [address] [place] [address] Dr. Aleksandar Almeida BILI, CONJUGATED 0.2 mg/dL Normal 0.0-0.3 [facility] Comment on above: Performed By: #### L IPA, CHACHA, LIVER, BMP #### [facility] [address] [place] [address] Dr. Aleksandar Almeida Bilirubin [Mass/Vol] 0.9 mg/dL Normal 0.2-1.3 [facility] Comment on above: Performed By: #### L IPA, CHACHA, LIVER, BMP #### [facility] [address] [place] [address] Dr. Aleksandar Almeida Globulin (S) [Mass/Vol] 4.0 g/dL Normal [facility] Comment on above: Performed By: #### L IPA, CHACHA, LIVER, BMP #### [facility] [address] [place] [address] Dr. Aleksandar Almeida Protein [Mass/Vol] 8.0 g/dL Normal 6.1-8.2 [facility] Comment on above: Performed By: #### L IPA, CHACHA, LIVER, BMP #### [facility] [address] [place] [address] Dr. Aleksandar Almeida PROF CHEM 8 (BAS METB)on Anion gap [Moles/Vol] 14.1 mmol/L Normal [facility] Comment on above: Performed By: #### L IPA, CHACHA, LIVER, BMP #### [facility] [address] [place] [address] Dr. Aleksandar Almeida Calcium [Mass/Vol] 9.5 mg/dL Normal 8.5-10.1 [facility] Comment on above: Performed By: #### L IPA, CHACHA, LIVER, BMP #### [facility] [address] [place] [address] Dr. Aleksandar Almeida Chloride [Moles/Vol] 101 mmol/L Normal 98-107 [facility] Comment on above: Performed By: #### L IPA, CHACHA, LIVER, BMP #### [facility] [address] [address] [address] Aleksandar Almeida CO2 [Moles/Vol] 27.0 mmol/L Normal 22.0-30.0 [facility] Comment on above: Performed By: #### L IPA, CHACHA, LIVER, BMP #### [facility] [address] [address] [address] Aleksandar Almeida Creatinine [Mass/Vol] 1.23 mg/dL Normal 0.66-1.25 [facility] Comment on above: Performed By: #### L IPA, CHACHA, LIVER, BMP #### [facility] [address] [address] [address] Aleksandar Almeida EGFR-AF UGANDAN >60 Normal >=60 [facility] Comment on above: Performed By: #### L IPA, CHACHA, LIVER, BMP #### [facility] [address] [address] [address] Aleksandar Almeida EGFR-NON AF UGANDAN >60 Normal >=60 [facility] Comment on above: Performed By: #### L IPA, CHACHA, LIVER, BMP #### [facility] [address] [address] [address] Aleksandar Almeida Glucose [Mass/Vol] 249 mg/dL Critically high 74-106 [facility] Comment on above: Performed By: #### L IPA, CHACHA, LIVER, BMP #### [facility] [address] [address] [address] Aleksandar Almeida Potassium [Moles/Vol] 4.1 mmol/L Normal 3.4-5.0 [facility] Comment on above: Performed By: #### L IPA, CHACHA, LIVER, BMP #### [facility] [address] [address] [address] Aleksandar Almeida Sodium [Moles/Vol] 138 mmol/L Normal 137-145 [facility] Comment on above: Performed By: #### L IPA, CHACHA, LIVER, BMP #### [facility] [address] [address] [address] Aleksandar Almeida Urea nitrogen [Mass/Vol] 19.0 mg/dL Critically high 7.0-18.0 [facility] Comment on above: Performed By: #### L IPA, CHACHA, LIVER, BMP #### [facility] [address] [address] [address] Aleksandar Almeida Urea nitrogen/Creatinine [Mass ratio] 15.4 mg/mg Normal [facility] Comment on above: Performed By: #### L IPA, CHACHA, LIVER, BMP #### [facility] [address] [address] [address] Aleksandar Almeida PROTIMEon 12-24-2021 INR Coag (PPP) [Relative time] 1.13 {INR} Normal [facility] Comment on above: Performed By: #### P T, PTT ####[facility] [address] [address]Dr. Aleksandar Almeida INR GUIDELINES SEE BELOW Normal [facility] Comment on above: Result Comment: NOEL RED INR: 2.0 - 3.0 CONDITIONS NOT LISTED BELOW 2.5 - 3.5 FOR PROSTHETIC HEART VALVE REPLACEMENT 2.5 - 3.5 RECURRENT THROMBOSIS Performed By: #### P T, PTT ####[facility] [address] [address]DrBaldev Almeida PT Coag (PPP) [Time] 12.1 s Critically high 9.0-11.6 [facility] Comment on above: Performed By: #### P T, PTT ####[facility] [address] [address]Dr. Aleksandar Almeida PTTon 12-24-2021 aPTT Coag (Bld) [Time] 25.1 s Normal 22.3-36.2 [facility] Comment on above: Performed By: #### P T, PTT ####[facility] [address] [address]Dr. Aleksandar Almeida URINE MICROSCOPIC ONLYon BACTERIA TRACE Abnormal NONE SEEN [facility] Comment on above: Performed By: #### U MICRO, ERUR ####[facility] [address] [address]DrBaldev Almeida Bacteria identified Cx Nom (U) NOT INDICATED Normal [facility] Comment on above: Performed By: #### U MICRO, ERUR ####[facility] [address] [address]Dr. Aleksandar Almeida CAST NONE SEEN Normal NONE SEEN [facility] Comment on above: Performed By: #### U MICRO, ERUR ####[facility] [address] [address]Dr. Aleksandar Almeida Crystals LM Nom (Urine sed) NONE SEEN Normal NONE SEEN [facility] Comment on above: Performed By: #### U MICRO, ERUR ####[facility] [address] [address]Dr. Aleksandar Almeida Epithelial cells LM Ql (Urine sed) NONE SEEN Normal NONE SEEN /RARE [facility] Comment on above: Performed By: #### U MICRO, ERUR ####[facility] [address] [place], [place] [address]Dr. Aleksandar Almeida MUCOUS TRACE Abnormal NONE SEEN [facility] Comment on above: Performed By: #### U MICRO, ERUR ####[facility] [address] [place], [place] [address]Dr. Aleksandar Almeida RBC 5-10 Abnormal 0-2 [facility] Comment on above: Performed By: #### U MICRO, ERUR ####[facility] [address] [place], [place] [address]Dr. Aleksandar Almeida WBC 2-5 Abnormal NONE SEEN [facility] Comment on above: Performed By: #### U MICRO, ERUR ####[facility] [address] [place], [place] [address]Dr. Aleksandar Almeida Radiologyon 12-10-2021 US Liver Normal [facility] [address]UI Work Phone: Ultrasound Duplex Abd/Pel/Sc rotal Cmpton 12-10-2021 Ultrasound Duplex Abd/Pel/Scrotal Cmpt Normal [facility] [address] I Work Phone: Tacrolimuson 11-17-2021 Tacrolimus (Bld) [Mass/Vol] 8.2 ng/mL 2.0 - 15.0 [facility] [place] [facility] Work Phone: Comment on above: NOTE: Result was obt ained using a chemiluminescent microparticle immunoassay (CMIA) on the [employer] i system.Optimal therapeutic ranges for immuno-suppressant drugs depend upon an individualpatient's current clinical state, type oforgan transplant, time post-transplant,co-administration of other immunosuppressants,and other clinical factors. The results ofthis test should be correlated with additionalclinical and laboratory data before changesin treatment regimens are made. Tacrolimuson 08-07-2021 Tacrolimus (Bld) [Mass/Vol] 12.6 ng/mL 2.0 - 15.0 [facility] [place] [facility] Work Phone: Comment on above: NOTE: Result was obt ained using a chemiluminescent microparticle immunoassay (CMIA) on the [employer] Crus[employer] Operator i system.Optimal therapeutic ranges for immuno-suppressant drugs depend upon an individualpatient's current clinical state, type oforgan transplant, time post-transplant,co-administration of other immunosuppressants,and other clinical factors. The results ofthis test should be correlated with additionalclinical and laboratory data before changesin treatment regimens are made. Tacrolimuson 06-21-2021 Tacrolimus (Bld) [Mass/Vol] 8.4 ng/mL 2.0 - 15.0 [facility] [place] [facility] Work Phone: Comment on above: NOTE: Result was obt ained using a chemiluminescent microparticle immunoassay (CMIA) on the [employer] i system.Optimal therapeutic ranges for immuno-suppressant drugs depend upon an individualpatient's current clinical state, type oforgan transplant, time post-transplant,co-administration of other immunosuppressants,and other clinical factors. The results ofthis test should be correlated with additionalclinical and laboratory data before changesin treatment regimens are made. Tacrolimuson 04-27-2021 Tacrolimus (Bld) [Mass/Vol] 11.2 ng/mL 2.0 - 15.0 [facility] [place] [address] [facility] Work Phone: Comment on above: NOTE: Result was obt ained using a chemiluminescent microparticle immunoassay (CMIA) on the St[employer] Rol[employer] Crusher Operator i system.Optimal therapeutic ranges for immuno-suppressant drugs depend upon an individualpatient's current clinical state, type oforgan transplant, time post-transplant,co-administration of other immunosuppressants,and other clinical factors. The results ofthis test should be correlated with additionalclinical and laboratory data before changesin treatment regimens are made. Provider Letteron 01-19-2021 Provider Letter (Inserted Image. Addis ble to display) January 19, 2021 LULY GIRON [address] [place] [address] LULY GIRON 1995 Dear Luly , You missed your scheduled appointment on: 01/19/2021 and the purpose of this letter is to inform you of our *No Show Policy*. Our appointment slots fill rapidly and when we have a no show appointment that time is lost. We could have used that time slot to care for a patient who needed to see one of our providers. Therefore, we ask that you call 24 hours in advance to cancel your appointment. This policy is in place so that we can meet the needs of all of our patients and we do appreciate your understanding. Sincerely, [facility] [address] [facility], [place] [address] [facility] Lab Reportson 11-12-2020 Lab Reports [id number]#[id number]:127 [facility] RAD - MISCon 11-12-2020 [facility] [id number]#1.00CD:127 Normal [facility] Operative Reporton Operative Report [id number]#1.00CD:127 [facility] Lab Reportson 11-10-2020 Lab Reports [id number]#1.00CD:127 [facility] RAD - MISCon 11-10-2020 [facility] [id number]#[id number]:127 Normal [facility] Activated partial thrombopla stin time (aPTT) in platelet poor plasma by coagulation aon 11-04-2020 aPTT Coag (PPP) [Time] 31.0 s 25.1-36.5 [facility] Automated basophil %on 11-04 Basophils/100 WBC (Bld) 1.2 % [facility] Automated basophil counton 0 11-04-2020 Basophils (Bld) [#/Vol] 0.1 10*3/uL 0.0-0.2 [facility] Automated blood lymphocyte c ount (number/volume)on 11-04-2020 Lymphocytes (Bld) [#/Vol] 3.5 10*3/uL 1.00-4.8 [facility] Automated blood lymphocyte c ount as percentage of total leukocyteson 11-04-2020 Lymphocytes/100 WBC (Bld) 44.2 % [facility] Automated blood monocyte cou nton 11-04-2020 Monocytes (Bld) [#/Vol] 0.6 10*3/uL 0.0-0.8 [facility] Automated blood platelet cou nt (count/volume)on 11-04-2020 Platelets (Bld) [#/Vol] 240 10*3/uL 150-450 [facility] Automated blood platelet jose n volume measurementon 11-04-2020 Platelet mean volume (Bld) [Entitic vol] 9.7 fL 6.6-10.1 [facility] Automated eosinophil %on Eosinophils/100 WBC (Bld) 2.0 % [facility] Automated eosinophil counton 11-04-2020 Eosinophils (Bld) [#/Vol] 0.2 10*3/uL 0.0-0.45 [facility] Automated erythrocyte distri bution width ratioon 11-04-2020 Erythrocyte distribution width (RBC) [Ratio] 13.2 % 12.0-14.8 [facility] Automated erythrocyte mean c orpuscular hemoglobin (mass per erythrocyte)on 11-04-2020 MCH (RBC) [Entitic mass] 30.7 pg 27.5-35.2 [facility] Automated erythrocyte mean c orpuscular hemoglobin concentration measurement (mass/volon 11-04-2020 MCHC (RBC) [Mass/Vol] 34.3 g/dL 32.5-35.6 [facility] Automated erythrocyte mean c orpuscular volumeon 11-04-2020 MCV (RBC) [Entitic vol] 89.5 fL 83.5-101 [facility] Automated monocyte %on 11-04 Monocytes/100 WBC (Bld) 7.8 % [facility] Automated neutrophil %on Neutrophils/100 WBC (Bld) 44.8 % [facility] Blood erythrocytes automated count (number/volume)on 11-04-2020 RBC (Bld) [#/Vol] 4.03 10*6/uL 3.90-5.60 [facility] Blood hemoglobin measurement (mass/volume)on 11-04-2020 Hemoglobin (Bld) [Mass/Vol] 12.4 g/dL 13.0-17.0 [facility] Blood leukocytes automated c ount (number/volume)on 11-04-2020 WBC (Bld) [#/Vol] 7.9 10*3/uL 4.5-11.0 [facility] Blood neutrophil count by au tomated method (number/volume)on 11-04-2020 Neutrophils (Bld) [#/Vol] 3.5 10*3/uL 1.8-7.7 [facility] Estimated glomerular filtrat ion rate (GFR) non- Americanon 11-04-2020 GFR/1.73 sq M predicted among non-blacks MDRD (S/P/Bld) [Vol rate/Area] mL/min/{1.73_m2} [facility] Hematocrit [Volume Fraction] of Blood by Automated counton 11-04-2020 Hematocrit (Bld) [Volume fraction] 36.1 % 38.8-50.0 [facility] Hematologyon 11-04-2020 PT Coag (PPP) [Time] 12.9 s 9.0-12.9 [facility] Otheron 11-04-2020 GFR/1.73 sq M.predicted MDRD (S/P/Bld) [Vol rate/Area] mL/min/{1.73_m2} [facility] Comment on above: GFR estimated refere nce range: According to KDOQI guidelines, <60 ml/min/1.73m2 is sufficient to diagnose a patient with chronic kidney disease. Nucleated RBC/100 WBC (Bld) [Ratio] 0.4 % 0-0.5 [facility] Creatinine Clearance (Chem N/A [facility] Platelet poor plasma interna tional normalized ratio (INR) by coagulation assay (relaton 11-04-2020 INR Coag (PPP) [Relative time] 1.2 {INR} [facility] Comment on above: INR Therapeutic Rang e A) Pre- and Peroperative OAT started two weeks before surgery. NOT HIP SURGERY: 1.5 - 2.5 HIP SURGERY: 2 - 3B) Primary and secondary prevention of venous THROMBOSIS: 2 - 3C) Active venous thrombosis, pulmonary embolismand prevention of recurrent venous thrombosis: 2 - 3D) Prevention of arterial thromboembolismincluding patients with mechanical heart valves: 3 - 4.5 Pre-Certification Formon Pre-Certification Form [id number]#[id number]:127 Normal [facility] Serum or plasma calcium vini urement (mass/volume)on 11-04-2020 Calcium [Mass/Vol] 9.2 mg/dL 8.2-10.2 [facility] Serum or plasma chloride jose surement (moles/volume)on 11-04-2020 Chloride [Moles/Vol] 100 mmol/L 95-114 [facility] Serum or plasma creatinine m easurement with calculation of estimated glomerular filtron 11-04-2020 Creatinine [Mass/Vol] 1.31 mg/dL 0.64-1.27 [facility] Serum or plasma glucose vini urement (mass/volume)on 11-04-2020 Glucose [Mass/Vol] 178 mg/dL 70-100 [facility] Comment on above: ADA recommended refe rence rangeRandom Glucose Reference Range is dependent on time and content of last meal. Glucose of more than 200 mg/dL in a nonstressed, ambulatory subject supports the diagnosis of Diabetes Mellitus. Serum or plasma potassium me asurement (moles/volume)on 11-04-2020 Potassium [Moles/Vol] 3.9 mmol/L 3.5-5.1 [facility] Serum or plasma sodium measu rement (moles/volume)on 11-04-2020 Sodium [Moles/Vol] 137 mmol/L 136-146 [facility] Serum or plasma total carbon dioxide measurement (moles/volume)on 11-04-2020 CO2 [Moles/Vol] 27.9 mmol/L 22.0-30.0 [facility] Serum or plasma urea nitroge n measurement (mass/volume)on 11-04-2020 Urea nitrogen [Mass/Vol] 16 mg/dL 06-24 [facility] Ambulatory Clinical Summaryo n 10-29-2020 Ambulatory Clinical Summary {[id number]}CD: [id number] Normal [facility] Patient Educationon 10-29-19 Patient Education Urology Kidney Stones Kidney stones are rock-like masses that form inside of the kidneys. Kidneys are organs that make pee (urine). A kidney stone may move into other parts of the urinary tract, including: ? The tubes that connect the kidneys to the bladder (ureters). ? The bladder. ? The tube that carries urine out of the body (urethra). Kidney stones can cause very bad pain and can block the flow of pee. The stone usually leaves your body (passes) through your pee. You may need to have a doctor take out the stone. What are the causes? Kidney stones may be caused by: ? A condition in which certain glands make too much parathyroid hormone (primary hyperparathyroidism). ? A buildup of a type of crystals in the bladder made of a chemical called uric acid. The body makes uric acid when you eat certain foods. ? Narrowing (stricture) of one or both of the ureters. ? A kidney blockage that you were born with. ? Past surgery on the kidney or the ureters, such as gastric bypass surgery. What increases the risk? You are more likely to develop this condition if: ? You have had a kidney stone in the past. ? You have a family history of kidney stones. ? You do not drink enough water. ? You eat a diet that is high in protein, salt (sodium), or sugar. ? You are overweight or very overweight (obese). What are the signs or symptoms? Symptoms of a kidney stone may include: ? Pain in the side of the belly, right below the ribs (flank pain). Pain usually spreads (radiates) to the groin. ? Needing to pee often or right away (urgently). ? Pain when going pee (urinating). ? Blood in your pee (hematuria). ? Feeling like you may vomit (nauseous). ? Vomiting. ? Fever and chills. How is this treated? Treatment depends on the size, location, and makeup of the kidney stones. The stones will often pass out of the body through peeing. You may need to: ? Drink more fluid to help pass the stone. In some cases, you may be given fluids through an IV tube put into one of your veins at the hospital. ? Take medicine for pain. ? Make changes in your diet to help keep kidney stones from coming back. Sometimes, medical procedures are needed to remove a kidney stone. This may involve: ? A procedure to break up kidney stones using a beam of light (laser) or shock waves. ? Surgery to remove the kidney stones. Follow these instructions at home: Medicines ? Take okwy-squ-iunxjte and prescription medicines only as told by your doctor. ? Ask your doctor if the medicine prescribed to you requires you to avoid driving or using heavy machinery. Eating and drinking ? Drink enough fluid to keep your pee pale yellow. You may be told to drink at least 8?10 glasses of water each day. This will help you pass the stone. ? If told by your doctor, change your diet. This may include: ? Limiting how much salt you eat. ? Eating more fruits and vegetables. ? Limiting how much meat, poultry, fish, and eggs you eat. ? Follow instructions from your doctor about eating or drinking restrictions. General instructions ? Collect pee samples as told by your doctor. You may need to collect a pee sample: ? 24 hours after a stone comes out. ? 8?12 weeks after a stone comes out, and every 6?12 months after that. ? Strain your pee every time you pee (urinate), for as long as told. Use the strainer that your doctor recommends. ? Do not throw out the stone. Keep it so that it can be tested by your doctor. ? Keep all follow-up visits as told by your doctor. This is important. You may need follow-up tests. How is this prevented? To prevent another kidney stone: ? Drink enough fluid to keep your pee pale yellow. This is the best way to prevent kidney stones. ? Eat healthy foods. ? Avoid certain foods as told by your doctor. You may be told to eat less protein. ? Stay at a healthy weight. Where to find more information ? National Kidney Foundation (NKF): www.kidney.org ? [employer] (UCF): www.urologyhealth.org Contact a doctor if: ? You have pain that gets worse or does not get better with medicine. Get help right away if: ? You have a fever or chills. ? You get very bad pain. ? You get new pain in your belly (abdomen). ? You pass out (faint). ? You cannot pee. Summary ? Kidney stones are rock-like masses that form inside of the kidneys. ? Kidney stones can cause very bad pain and can block the flow of pee. ? The stones will often pass out of the body through peeing. ? Drink enough fluid to keep your pee pale yellow. This information is not intended to replace advice given to you by your health care provider. Make sure you discuss any questions you have with your health care provider. Document Released: 03/06/2009 Document Revised: 02/04/2020 Document Reviewed: 02/04/2020 [employer] Patient Education ? 2019 [employer]. [facility] Urology Office/Clinic Noteon 10-29-2020 Urology Office/Clinic Note Chief Complaint This patient is a 25-year-old gentleman with a history of bilateral renal calculi. He is recently status post ESWL of his left renal calculi on 09/14/2020. He states he did pass several stone fragments and is having no pain, bleeding or evidence of infection. He is here today for follow-up visit and to review his most recent KUB x-ray. He did not bring any stone fragments for chemical analysis. [facility] Staff PO ESWL 09/14/2020 KUB done 10/28/20 a [facility] Dysuria: no Incomplete bladder emptying: no Hematuria: no Frequency: no Urgency: no Nocturia: no Stream: good stream Leaking: no Post void dripping: no Wearing pads/ Depends: no Urge incontinence: no Stress incontinence: no Incontinence without Sensory Awareness: no Abdominal pain: no Flank pain: no Sexual complaints: no History of Present Illness Reviewed KUB and op report. There have been no associated fever, chills, flank pain or blood in the urine. Pt. denies any pain/burning with urination at this time. Review of Systems ROS - Provider Constitutional: denies weight loss, denies hot flashes. Eyes: denies eye problems. Gastrointestinal: denies nausea, denies vomiting. Cardiovascular: denies chest pain or angina. Integumentary: no dryness Musculoskeletal: denies musculoskeletal symptoms. ENMT: denies otolaryngeal symptoms. Respiratory: no shortness of breath. Heme/Lymph: denies easy bleeding tendency, denies easy bruising tendency. Psychiatric: no confusion, no anxiety. Genitourinary: denies dysuria, denies hematuria, denies discharge, denies urinary frequency, denies urinary hesitancy, denies nocturia, denies incontinence, denies genital sores, denies decreased libido, and denies erectile dysfunction. Physical Exam General Appearance: alert, no distress, well nourished, well developed male. Head: normocephalic . Eyes: normal orbit and globe. ENMT: normal examination of external ears. Chest: Lungs CTA, respirations non labored. Cardiovascular: regular rate and rhythm. Abdomen: soft, non distended, no tenderness, no mass or organomegaly, no hernia. Genitourinary: normal scrotum, normal testes, normal urethra, normal epididymis, normal vas deferens/spermatic cord. Flank Pain: none. Bladder: nonpalpable. Penis: normal shaft, normal glans Lymph Nodes: unremarkable palpation of the cervical area. Skin: warm, dry, no bruising. Psychiatric: cooperative, affect appropriate for age, normal judgement, euthymic mood.. Assessment/Plan This patient has persistent bilateral renal calculi. He states he did pass some stones after his last treatment however did not bring any into the office for chemical analysis. KUB shows bilateral renal calculi with multiple stones persistent on both sides. We will plan second ESWL on the left side and try to clear out the stone out of the right kidney. When that is completed we will consider ESWL on the right side as a separate operative date. Preoperative antibiotics have been ordered and informed consent has been obtained. 1. Bilateral renal stones (N20.0: Calculus of kidney) S/p Lt. ESWL done 09/14/2020. Current KUB done on 10/28/2020 shows extensive bilateral nephrolithiasis. Will schedule repeat Lt. ESWL. The procedure risks, benefits, details and treatment alternatives have been discussed with the patient. These include blood in the urine, infection, bleeding around the kidney, kidney bruising, inability to break up the stone, need for blood transfusion, blockage from stone fragments, and need for additional procedures, among others. Full informed consent has been obtained. Will order General anesthesia. Ordered: Urology Procedure Order 2. Family history of kidney stone (Z84.1: Family history of disorders of kidney and ureter) Father. Ordered: Urology Procedure Order I have reviewed the previous health record information and history for this pt. from Dr. Morley. Follow-up With When Contact Information Peyman Lira MD, Jaiden [address] Additional Instructions: Patient Education Kidney Stones, [id number] I, Sharon Banda , personally scribed for Dr. Morley on 10/29/2020 09:16:05. . Documentation recorded by the scribe, Sharon Banda, accurately reflects the services(s) I performed and decisions made by me. Authenticated by Dr. Morley on 10/29/2020 09:31:50. Problem List/Past Medical History Ongoing Bilateral renal stones Diabetes Dysuria Family history of kidney stone Flank pain Hydronephrosis with ureteral calculus Hypertension Kidney disease Kidney stones Microscopic hematuria Poor urinary stream Historical No qualifying data Procedure/Surgical History ESWL - Extracorporeal shockwave lithotripsy for renal calculus (09/14/2020), LTx - Liver transplant (2015), Cholecystectomy. Medications amLODIPine 5 mg Tab, Oral, Daily magnesium (more content not included)... Normal [facility] Comment on above: Result Comment: Elec tronically Signed By: Peyman Lira MD, Jaiden Cherry\.br\Date and Time Signed: 10/29/20 09:31 EST\.br\Electronically Co-Signed By: Sharon Banda MA\.br\Date and Time Co-Signed: 10/29/20 09:16 EST Patient Letter FTMCon 2020 Patient Letter [facility] (Inserted Image. Addis ble to display) October 16, 2020 LULY GIRON [address] [place] [address] LULY GIRON 1995 Dear Luly Giron, I am corresponding to you by mail as our office has been trying to contact you to schedule your Post Op appointment to Left ESWL you had done on 09/14/20 due to kidney stones and hematuria with no success. Please call my office at your earliest convenience and we will gladly schedule this appointment for you. Sincerely, Dr. Jaiden Morley [facility] [address], [facility] [place] [address] [facility] Albumin [Mass/volume] in Ser um or Plasmaon 10-13-2020 Albumin [Mass/Vol] 4.1 g/dL 3.2-5.5 [facility] Automated basophil %on 10-13 Basophils/100 WBC (Bld) 1.0 % [facility] Automated basophil counton 0 10-13-2020 Basophils (Bld) [#/Vol] 0.1 10*3/uL 0.0-0.2 [facility] Automated blood lymphocyte c ount (number/volume)on 10-13-2020 Lymphocytes (Bld) [#/Vol] 3.8 10*3/uL 1.00-4.8 [facility] Automated blood lymphocyte c ount as percentage of total leukocyteson 10-13-2020 Lymphocytes/100 WBC (Bld) 47.7 % [facility] Automated blood monocyte cou nton 10-13-2020 Monocytes (Bld) [#/Vol] 0.6 10*3/uL 0.0-0.8 [facility] Automated blood platelet cou nt (count/volume)on 10-13-2020 Platelets (Bld) [#/Vol] 212 10*3/uL 150-450 [facility] Automated blood platelet jose n volume measurementon 10-13-2020 Platelet mean volume (Bld) [Entitic vol] 9.4 fL 6.6-10.1 [facility] Automated eosinophil %on Eosinophils/100 WBC (Bld) 3.7 % [facility] Automated eosinophil counton 10-13-2020 Eosinophils (Bld) [#/Vol] 0.3 10*3/uL 0.0-0.45 [facility] Automated erythrocyte distri bution width ratioon 10-13-2020 Erythrocyte distribution width (RBC) [Ratio] 13.1 % 12.0-14.8 [facility] Automated erythrocyte mean c orpuscular hemoglobin (mass per erythrocyte)on 10-13-2020 MCH (RBC) [Entitic mass] 31.2 pg 27.5-35.2 [facility] Automated erythrocyte mean c orpuscular hemoglobin concentration measurement (mass/volon 10-13-2020 MCHC (RBC) [Mass/Vol] 34.7 g/dL 32.5-35.6 [facility] Automated erythrocyte mean c orpuscular volumeon 10-13-2020 MCV (RBC) [Entitic vol] 89.9 fL 83.5-101 [facility] Automated monocyte %on 10-13 Monocytes/100 WBC (Bld) 7.9 % [facility] Automated neutrophil %on Neutrophils/100 WBC (Bld) 39.7 % [facility] Blood erythrocytes automated count (number/volume)on 10-13-2020 RBC (Bld) [#/Vol] 4.77 10*6/uL 3.90-5.60 [facility] Blood hemoglobin measurement (mass/volume)on 10-13-2020 Hemoglobin (Bld) [Mass/Vol] 14.9 g/dL 13.0-17.0 [facility] Blood leukocytes automated c ount (number/volume)on 10-13-2020 WBC (Bld) [#/Vol] 8.1 10*3/uL 4.5-11.0 [facility] Blood neutrophil count by au tomated method (number/volume)on 10-13-2020 Neutrophils (Bld) [#/Vol] 3.2 10*3/uL 1.8-7.7 [facility] Cholesterol [Mass/volume] in Serum or Plasmaon 10-13-2020 Cholesterol [Mass/Vol] 240 mg/dL 140-200 [facility] Comment on above: Chol less than 200 m g/dl low riskChol 201-239 mg/dl borderline riskChol 240 mg/dl and greater high risk Cholesterol in LDL [Mass/vol ume] in Serum or Plasma by calculationon 10-13-2020 Cholesterol in LDL [Mass/Vol] 145 mg/dL 0-100 [facility] Comment on above: LDL ATP III CLASSIFI CATIONLDL less than 100 mg/dL OptimalLDL 100-129 mg/dL Near or above optimalLDL 130-159 mg/dL Borderline highLDL 160-189 mg/dL HighLDL greater than 189 mg/dL Very high Cholesterol in VLDL [Mass/vo lume] in Serum or Plasma by calculationon 10-13-2020 Cholesterol in VLDL [Mass/Vol] 16 mg/dL [facility] Creatinine [Mass/volume] in Urineon 10-13-2020 Creatinine (U) [Mass/Vol] 241.7 mg/dL [facility] Comment on above: No reference range e stablished Direct bilirubin measurement on 10-13-2020 Bilirubin.direct [Mass/Vol] 0.2 mg/dL 0.0-0.4 [facility] Estimated glomerular filtrat ion rate (GFR) non- Americanon 10-13-2020 GFR/1.73 sq M predicted among non-blacks MDRD (S/P/Bld) [Vol rate/Area] mL/min/{1.73_m2} [facility] Hematocrit [Volume Fraction] of Blood by Automated counton 10-13-2020 Hematocrit (Bld) [Volume fraction] 42.9 % 38.8-50.0 [facility] Otheron 10-13-2020 25-Hydroxy Vitamin D Total > 120.0 ng/mL 30-100 [facility] Comment on above: VITAMIN D STATUS 25( [place])VITAMIN D RANGE (ng/mL) Deficient <20 Insufficient 20 to <30Sufficient 30 to 100Reference: Misa MF,Kamar NC, Radha VOGEL, et al. Evaluation,treatment, and prevention of vitamin D deficiency; an Endocrine Society clinical practice guideline. JCEM. 2010; 96(7):1911-30. Amylase [Catalytic activity/Vol] 146 U/L 7-64 [facility] Nucleated RBC/100 WBC (Bld) [Ratio] 0.2 % 0-0.5 [facility] GFR/1.73 sq M.predicted MDRD (S/P/Bld) [Vol rate/Area] mL/min/{1.73_m2} [facility] Comment on above: GFR estimated refere nce range: According to KDOQI guidelines, <60 ml/min/1.73m2 is sufficient to diagnose a patient with chronic kidney disease. Pharmacy Creatinine Clearance (Chem N/A [facility] Protein [Mass/volume] in Ser um or Plasmaon 10-13-2020 Protein [Mass/Vol] 7.1 g/dL 6.1-7.9 [facility] Serum globulin measurement b y calculation (mass/volume)on 10-13-2020 Globulin (S) [Mass/Vol] 3.0 g/dL [facility] Serum or plasma alanine weaver otransferase measurement without P-5'-P (enzymatic activion 10-13-2020 ALT No additional P-5'-P [Catalytic activity/Vol] 28 U/L 10-60 [facility] Serum or plasma albumin/glob ulin mass ratioon 10-13-2020 Albumin/Globulin [Mass ratio] 1.4 {ratio} [facility] Serum or plasma alkaline roe sphatase measurement (enzymatic activity/volume)on 10-13-2020 ALP [Catalytic activity/Vol] 87 U/L 32-92 [facility] Serum or plasma aspartate am inotransferase measurement (enzymatic activity/volume)on 10-13-2020 AST [Catalytic activity/Vol] 23 U/L 10-42 [facility] Serum or plasma calcium vini urement (mass/volume)on 10-13-2020 Calcium [Mass/Vol] 9.9 mg/dL 8.2-10.2 [facility] Serum or plasma chloride jose surement (moles/volume)on 10-13-2020 Chloride [Moles/Vol] 98 mmol/L 95-114 [facility] Serum or plasma creatinine m easurement with calculation of estimated glomerular filtron 10-13-2020 Creatinine [Mass/Vol] 1.12 mg/dL 0.64-1.27 [facility] Serum or plasma glucose vini urement (mass/volume)on 10-13-2020 Glucose [Mass/Vol] 233 mg/dL 70-100 [facility] Comment on above: ADA recommended refe rence rangeRandom Glucose Reference Range is dependent on time and content of last meal. Glucose of more than 200 mg/dL in a nonstressed, ambulatory subject supports the diagnosis of Diabetes Mellitus. Serum or plasma high density lipoprotein (HDL) cholesterol measurementon 10-13-2020 Cholesterol in HDL [Mass/Vol] 79 mg/dL 29-71 [facility] Comment on above: HDL CHOL ATP-III CLA SSIFICATION Cardiovascular RiskHDL > or equal to 60 mg/dL LOWHDL < 40 mg/dL HIGH Serum or plasma potassium me asurement (moles/volume)on 10-13-2020 Potassium [Moles/Vol] 3.9 mmol/L 3.5-5.1 [facility] Serum or plasma sodium measu rement (moles/volume)on 10-13-2020 Sodium [Moles/Vol] 140 mmol/L 136-146 [facility] Serum or plasma thyroid stim ulating hormone (TSH) measurement by high sensitivity meton 10-13-2020 TSH Qn 2.38 u[iU]/mL 0.45-5.33 [facility] Serum or plasma total biliru bin measurement (mass/volume)on 10-13-2020 Bilirubin [Mass/Vol] 1.2 mg/dL 0.3-1.2 [facility] Serum or plasma total carbon dioxide measurement (moles/volume)on 10-13-2020 CO2 [Moles/Vol] 28.9 mmol/L 22.0-30.0 [facility] Serum or plasma total choles terol/high density lipoprotein (HDL) cholesterol mass carmen 10-13-2020 Cholesterol.total/Cho lesterol in HDL [Mass ratio] 3.0 {ratio} [facility] Serum or plasma urea nitroge n measurement (mass/volume)on 10-13-2020 Urea nitrogen [Mass/Vol] 14 mg/dL 9- [facility] Tacrolimus [Mass/volume] in Bloodon 10-13-2020 Tacrolimus (Bld) [Mass/Vol] Sent to ref lab [facility] Triglyceride [Mass/volume] i n Serum or Plasmaon 10-13-2020 Triglyceride [Mass/Vol] 82 mg/dL 35-149 [facility] Comment on above: TRIG ATP III CLASSIF ICATIONTRIG less than 150 mg/dL NormalTRIG 150-199 mg/dL Borderline highTRIG 200-500 mg/dL High TRIG greater than 500 mg/dL Very highStandard traceable to the Center for Disease Conrtrol and Prevention (CDC) test method. Urine microalbumin measureme nt with detection limit of 20 mg/L or less (mass/volume)on 10-13-2020 Albumin DL <= 20 mg/L (U) [Mass/Vol] 7.3 mg/dL 0.0-1.8 [facility] Urine microalbumin/creatinin e mass ratioon 10-13-2020 Albumin/Creatinine DL <= 20 mg/L (U) [Mass ratio] 30.0 mg/g 0.0-30.0 [facility] Comment on above: 30-300 mg/g indicate s an increased risk for diabetic nephropathy. Greater than 300 mg/g is consistent with clinical nephropathy. (Am. J. Kidney Disease 1994, 25:107) Lab Reportson 10-06-2020 Lab Reports [id number]:127 Normal [facility] RAD - CT Reporton 10-06-2020 RAD - [address] Report [id number]#1.00CD:127 Normal [facility] RAD - MISCon 10-06-2020 RAD - MISC [id number]#1.00CD:127 Normal [facility] Operative Reporton 0 Operative Report [id number]:127 Normal [facility] Patient Correspondenceon Patient Correspondence [id number]:127 Normal [facility] Ambulatory Clinical Summaryo n 09-10-2020 Ambulatory Clinical Summary {[id number]}CD: [id number] Normal [facility] Patient Educationon 09-10-20 20 Patient Education Family Medicine Kidney Stones Kidney stones (ureteral lithiasis ) are solid masses that form inside your kidneys. The intense pain is caused by the stone moving through the kidney, ureter, bladder, and urethra (urinary tract ). When the stone moves, the ureter starts to spasm around the stone. The stone is usually passed in the urine. HOME CARE ? Drink enough fluids to keep your pee (urine ) clear or pale yellow. This helps to get the stone out. ? Strain all pee through the provided strainer. Do not pee without peeing through the strainer, not even once. If you pee the stone out, catch it. The stone may be as small as a grain of salt. Take this to your doctor. ? Only take medicine as told by your doctor. ? Follow up with your doctor as told. ? Get follow-up X-rays as told by your doctor. GET HELP RIGHT AWAY IF: ? Your pain does not get better with medicine. ? You have a fever. ? Your pain increases and gets worse over 18 hours. ? You have new belly (abdominal ) pain. ? You feel faint or pass out. MAKE SURE YOU: ? Understand these instructions. ? Will watch your condition. ? Will get help right away if you are not doing well or get worse. Document Released: 03/06/2009 Document Revised: 12/10/2012 Document Reviewed: 07/16/2010 ExitCare? Patient Information ?2013 [employer]. Normal [facility] Urology Office/Clinic Noteon 09-10-2020 Urology Office/Clinic Note Chief Complaint Pt is here for Flank pain This patient is a 25-year-old gentleman with a history of a left renal and now left ureteral calculus measuring 6 mm. The stone is causing mild hydronephrosis. He was recently seen in the emergency department. HPI Staff Pt is here for Flank pain.Previous dx Kidney stones, Microscopic hematuria, Poor urinary stream, Family history of kidney stone. Pain with urination:Pt states slight pain and burning Blood in urine:Pt states that he did last week Incomplete bladder emptying:Pt denies Frequency:Pt states occasionally Urgency:Pt denies Nocturia:Pt states 1 to 2 times Hesitancy:Pt denies Urination requires straining:Pt denies Stream:Pt states average stream Stream starts and stops:Pt denies Post-void dribbling:Pt denies Leaking before getting to the restroom:Pt denies Urinary incontinence without sensory awareness:Pt denies Temporarily unable to restrain urination with body movement:Pt denies Wearing pad/Depends:Pt denies Urine odor:Pt denies Flank/Back pain:Pt states Lt side Abdominal pain:Pt denies History of Present Illness Reviewed UA and KUB. There have been no associated fever, chills, flank pain or blood in the urine. Pt. denies any pain/burning with urination at this time. Review of Systems ROS - Provider Constitutional: denies weight loss, denies hot flashes. Eyes: denies eye problems. Gastrointestinal: denies nausea, denies vomiting. Cardiovascular: denies chest pain or angina. Integumentary: no dryness Musculoskeletal: denies musculoskeletal symptoms. ENMT: denies otolaryngeal symptoms. Respiratory: no shortness of breath. Heme/Lymph: denies easy bleeding tendency, denies easy bruising tendency. Psychiatric: no confusion, no anxiety. Genitourinary: mild dysuria, denies hematuria, denies discharge, denies urinary frequency, denies urinary hesitancy, denies nocturia, denies incontinence, denies genital sores, denies decreased libido, and denies erectile dysfunction. Physical Exam Vitals & Measurements HR: 84(Peripheral) RR: 16 BP: 105/72 HT: 178.0 cm HT: 178.0 cm WT: 62.6 kg WT: 62.6 kg BMI: 19.76 General Appearance: alert, no distress, well nourished, well developed male. Head: normocephalic . Eyes: normal orbit and globe. ENMT: normal examination of external ears. Chest: Lungs CTA, respirations non labored. Cardiovascular: regular rate and rhythm. Abdomen: soft, non distended, no tenderness, no mass or organomegaly, no hernia. Genitourinary: normal scrotum, normal testes, normal urethra, normal epididymis, normal vas deferens/spermatic cord. Flank Pain: none. Bladder: nonpalpable. Penis: normal shaft, normal glans. Lymph Nodes: unremarkable palpation of the cervical area. Skin: warm, dry, no bruising. Psychiatric: cooperative, affect appropriate for age, normal judgement, euthymic mood. Assessment/Plan Review of CT scan shows mild left hydronephrosis and a proximal 6 mm ureteral calculus on the left side. There are also bilateral renal calculi that are nonobstructing. This patient is being scheduled for ESWL of his proximal left ureteral calculus. The procedure, risk, potential complications and alternatives have been discussed. Informed consent has been obtained. Preoperative laboratory studies will be ordered and preop antibiotics will be ordered. 1. Bilateral renal stones (N20.0: Calculus of kidney) At the last encounter, pt. was to have Lt. ESWL done but pt. was unable to do so at that time. Per current KUB done on 09/09/2020 still shows bilateral stones. Will schedule LEFT ESWL. The procedure risks, benefits, details and treatment alternatives have been discussed with the patient. These include blood in the urine, infection, bleeding around the kidney, kidney bruising, inability to break up the stone, need for blood transfusion, blockage from stone fragments, and need for additional procedures, among others. Full informed consent has been obtained. Will order General anesthesia. Ordered: Urology Procedure Order 2. Hydronephrosis with ureteral calculus (N13.2: Hydronephrosis with renal and ureteral calculous obstruction) Current KUB done on 09/09/2020 shows mild left hydronephrosis secondary to a [id number] stone within the proximal ureter. Ordered: Urology Procedure Order 3. Family history of kidney stone (Z84.1: Family history of disorders of kidney and ureter) Father. Ordered: Urology Procedure Order 4. Dysuria (R30.0: Dysuria) Mild, intermittent. Ordered: Urology Procedure Order 5. Flank pain (R10.9: Unspecified abdominal pain) Lt. sided. Ordered: Urology Procedure Order I have reviewed the previous health record information and history for this pt. from Dr. Morley. Follow-up With When Contact Information Jaiden Morley Jr., MD [address] [facility] [place] [address]- Additional Instructions: Patient Education Kidney Stones, [id number] I, Sharon Banda (more content not included)... [facility] Comment on above: Result Comment: Elec tronically Signed By: Peyman Lira MD, Jaiden Cherry\.br\Date and Time Signed: 09/10/20 08:48 EST\.br\Electronically Co-Signed By: Sharon Banda MA\.br\Date and Time Co-Signed: 09/10/20 08:44 EST Patient Letter FTon 2019 Patient Letter [facility] (Inserted Image. Addis ble to display) July 29, 2020 LULY GIRON [address] [place] [address] LULY GIRON 1995 Dear Luly Giron, I am corresponding to you by certified mail because you have a medical condition called hematuria and kidney stones which requires follow up. It was recommended that you have Left ESWL but you cancelled your surgery on 07/10/20 and did not reschedule it. Our office has tried contacting you to get this rescheduled with no response. Please contact my office at your earliest convenience and we will reschedule your appointment so we can closely monitory your condition. I cannot be responsible for your urological care if you do not follow up as recommended. Sincerely Dr. Jaiden Morley [facility] [id number] [place] [address] [facility] Lab Reportson 07-07-2020 Lab Reports [id number]:127 [facility] RAD - MISCon 07-07-2020 RAD - MISC [id number]:127 [facility] RAD - MISC [id number]:127 Normal [facility] Formson 07-01-2020 Forms [id number]:127 Normal [facility] Ambulatory Clinical Summaryo n 06-30-2020 Ambulatory Clinical Summary {[id number]}CD: [id number] Normal [facility] Patient Educationon 06-30-20 20 Patient Education Family Medicine Kidney Stones Kidney stones (ureteral lithiasis ) are solid masses that form inside your kidneys. The intense pain is caused by the stone moving through the kidney, ureter, bladder, and urethra (urinary tract ). When the stone moves, the ureter starts to spasm around the stone. The stone is usually passed in the urine. HOME CARE ? Drink enough fluids to keep your pee (urine ) clear or pale yellow. This helps to get the stone out. ? Strain all pee through the provided strainer. Do not pee without peeing through the strainer, not even once. If you pee the stone out, catch it. The stone may be as small as a grain of salt. Take this to your doctor. ? Only take medicine as told by your doctor. ? Follow up with your doctor as told. ? Get follow-up X-rays as told by your doctor. GET HELP RIGHT AWAY IF: ? Your pain does not get better with medicine. ? You have a fever. ? Your pain increases and gets worse over 18 hours. ? You have new belly (abdominal ) pain. ? You feel faint or pass out. MAKE SURE YOU: ? Understand these instructions. ? Will watch your condition. ? Will get help right away if you are not doing well or get worse. Document Released: 03/06/2009 Document Revised: 12/10/2012 Document Reviewed: 07/16/2010 ExitCare? Patient Information ?2013 My [employer] Database. Normal [facility] Urology Office/Clinic Noteon 06-30-2020 Urology Office/Clinic Note Chief Complaint New pt for kidney stones This patient is a 25-year-old gentleman with history of bilateral renal calculi. He is referred for evaluation and management of bilateral renal calculi. The patient states he passed a stone on the right side recently. Also history is significant for liver transplant in 2016. [facility] Staff New pt here for kidney stones today. Current KUB done 06/28/2020 shows bilateral nephrolithiasis. Pt states that about a month ago he was having pain and went to the [facility] ED. He has since passed a couple of stones. The last being passed this past Monday. Dysuria: no Incomplete bladder emptying: no Hematuria: no Frequency: no Urgency: no Nocturia: no Stream: moderate with hesitancy with first void of the day Leaking: no Post void dripping: no Wearing pads/ Depends: no Urge incontinence: no Stress incontinence: no Incontinence without Sensory Awareness: no Abdominal pain: no Flank pain: no Sexual complaints: no History of Present Illness Reviewed UA, KUB, and DERMATOLOGICAL SURGEON paper works. There have been no associated fever, chills, or flank pain. Pt. denies any pain/burning with urination at this time. Review of Systems PHQ Score Initial Depression Screen Score: 0 ROS - Provider Constitutional: denies weight loss, denies hot flashes. Eyes: denies eye problems. Gastrointestinal: denies nausea, denies vomiting. Cardiovascular: denies chest pain or angina. Integumentary: no dryness Musculoskeletal: denies musculoskeletal symptoms. ENMT: denies otolaryngeal symptoms. Respiratory: no shortness of breath. Heme/Lymph: denies easy bleeding tendency, denies easy bruising tendency. Psychiatric: no confusion, no anxiety. Genitourinary: denies dysuria, moderate hematuria,microscopic denies discharge, denies urinary frequency, denies urinary hesitancy, denies nocturia, denies incontinence, denies genital sores, denies decreased libido, and denies erectile dysfunction. Physical Exam Vitals & Measurements HR: 91(Peripheral) RR: 16 BP: 115/73 HT: 178.0 cm HT: 178 cm WT: 61.0 kg WT: 61 kg BMI: 19.25 General Appearance: alert, no distress, well nourished, well developed male. Head: normocephalic . Eyes: normal orbit and globe. ENMT: normal examination of external ears. Chest: Lungs CTA, respirations non labored. Cardiovascular: regular rate and rhythm. Abdomen: soft, non distended, no tenderness, no mass or organomegaly, no hernia. There is a healed midline incision from his previous liver surgery. No CVA tenderness was noted. Lymph Nodes: unremarkable palpation of the cervical area. Skin: warm, dry, no bruising. Psychiatric: cooperative, affect appropriate for age, normal judgement, euthymic mood. Assessment/Plan Bilateral renal calculi. Larger stones appear to be on the left side. Patient is being scheduled for ESWL of his left renal calculi. We will consider evaluating and managing the stones on the right side after the left side is cleared. 1. Kidney stones (N20.0: Calculus of kidney) DERMATOLOGICAL SURGEON is here for kidney stones. Most current KUB done on 06/27/2020 shows bilateral nephrolithiasis. Pt. states that he has passed some with the last being this past Monday. Pt. did not bring any samples into office. At this time, will schedule LEFT ESWL. The procedure risks, benefits, details and treatment alternatives have been discussed with the patient. These include blood in the urine, infection, bleeding around the kidney, kidney bruising, inability to break up the stone, need for blood transfusion, blockage from stone fragments, and need for additional procedures, among others. Full informed consent has been obtained. Will order General anesthesia. Will address RT. renal stones in the near future. 2. Microscopic hematuria (R31.29: Other microscopic hematuria) UA today shows a MODERATE amount of blood. 3. Poor urinary stream (R39.12: Poor urinary stream) First void of the day, moderate stream w/ hesitancy. 4. Family history of kidney stone (Z84.1: Family history of disorders of kidney and ureter) Father. I have reviewed the previous health record information and history for this pt. from Dr. Morley. Follow-up With When Contact Information Peyman Lira MD, Jaiden Cherry [address] [place] [address]- Additional Instructions: Patient Education Kidney Stones, Ltwt-db-Gfmn Sharon Banegas , personally scribed for Dr. Morley on 06/30/2020 09:48:31. . Documentation recorded by the scribe, Sharon Banda, accurately reflects the services(s) I performed and decisions made by me. Authenticated by Dr. Morley on 06/30/2020 10:14:47. Problem List/Past Medical History Ongoing Diabetes Family history of kidney stone Hypertension Kidney disease Kidney stones Microscopic hematuria Poor urinary stream Historical No qualifying data Procedure/Surgical History LTx - Liver transplant (2016), Jenny (more content not included)... Normal [facility] Comment on above: Result Comment: Elec tronically Signed By: Peyman Lira MD, Jaiden Cherry\.br\Date and Time Signed: 06/30/20 10:15 EDT\.br\Electronically Co-Signed By: Sharon Banda MA\.br\Date and Time Co-Signed: 06/30/20 09:48 EDT Vital Signs Date Time Vital Sign Value Performing Clinician Facility 05-23-2024 14:52-0400 Body height 175.26 cm MD Coby Sosa Work Phone: [facility] 05-23-2024 14:52-0400 Body mass index (BMI) [Ratio] 18.3 kg/m2 MD Coby Sosa Work Phone: [facility] 05-23-2024 14:52-0400 Body weight 56.24 kg MD Coby Sosa Work Phone: [facility] 05-23-2024 14:52-0400 Diastolic blood pressure 98 mm[Hg] MD Coby Sosa Work Phone: [facility] 05-23-2024 14:52-0400 Heart rate 84 /min MD Coby Sosa Work Phone: [facility] 05-23-2024 14:52-0400 Systolic blood pressure 130 mm[Hg] MD Coby Sosa Work Phone: [facility] 04-09-2024 15:32-0400 Body height 175.26 cm MD Coby Sosa Work Phone: [facility] 04-09-2024 15:32-0400 Body mass index (BMI) [Ratio] 18.8 kg/m2 MD Coby Sosa Work Phone: [facility] 04-09-2024 15:32-0400 Body weight 58.05 kg MD Coby Sosa Work Phone: [facility] 04-09-2024 15:32-0400 Diastolic blood pressure 74 mm[Hg] MD Coby Sosa Work Phone: [facility] 04-09-2024 15:32-0400 Heart rate 94 /min MD Coby Sosa Work Phone: [facility] 04-09-2024 15:32-0400 Systolic blood pressure 120 mm[Hg] MD Coby Sosa Work Phone: [facility] 02-01-2024 09:35-0400 Body mass index (BMI) [Ratio] 18.67 kg/m2 Sharan Ayoub MD Work Phone: [facility] 02-01-2024 09:35-0400 Body temperature 97.59 [degF] Sharan Ayoub MD Work Phone: [facility] 02-01-2024 09:35-0400 Body weight 59.01 kg Sharan Ayoub MD Work Phone: [facility] 02-01-2024 09:35-0400 Diastolic blood pressure 96 mm[Hg] Sharan Ayoub MD Work Phone: [facility] 02-01-2024 09:35-0400 Heart rate 86 /min Sharan Ayoub MD Work Phone: [facility] 02-01-2024 09:35-0400 SaO2% (BldA) [Mass fraction] 100 % Sharan Ayoub MD Work Phone: [facility] 02-01-2024 09:35-0400 Systolic blood pressure 148 mm[Hg] Sharan Ayoub MD Work Phone: [facility] 01-24-2024 14:08-0400 Body temperature 98.4 [degF] Yung Montesinos MD Work Phone: [facility] 01-24-2024 14:08-0400 Diastolic blood pressure 82 mm[Hg] Yung Post MD Work Phone: [facility] 01-24-2024 14:08-0400 Heart rate 89 /min Yung Post MD Work Phone: [facility] 01-24-2024 14:08-0400 Respiratory rate 18 /min Yung Post MD Work Phone: [facility] 01-24-2024 14:08-0400 SaO2% (BldA) [Mass fraction] 96 % Yung Post MD Work Phone: [facility] 01-24-2024 14:08-0400 Systolic blood pressure 136 mm[Hg] Yung Post MD Work Phone: [facility] 01-19-2024 13:07-0400 Body mass index (BMI) [Ratio] 17.55 kg/m2 Yung Post MD Work Phone: [facility] 01-19-2024 13:07-0400 Body weight 55.48 kg Yung Post MD Work Phone: [facility] 01-19-2024 13:06-0400 Body height 177.8 cm Yung Post MD Work Phone: [facility] 01-17-2024 12:45-0400 Diastolic blood pressure 74 mm[Hg] [address] 01-17-2024 12:45-0400 Heart rate 55 /min [address] 01-17-2024 12:45-0400 Respiratory rate 18 /min [address] 01-17-2024 12:45-0400 SaO2% (BldA) [Mass fraction] 98 % [address] 01-17-2024 12:45-0400 Systolic blood pressure 119 mm[Hg] [address] 01-17-2024 08:13-0400 Body temperature 98.1 [degF] [address] 12-19-2023 12:50-0400 Diastolic blood pressure 81 mm[Hg] [address] 12-19-2023 12:50-0400 Heart rate 87 /min [address] 12-19-2023 12:50-0400 Respiratory rate 18 /min [address] 12-19-2023 12:50-0400 SaO2% (BldA) [Mass fraction] 99 % [address] 12-19-2023 12:50-0400 Systolic blood pressure 121 mm[Hg] [address] 12-19-2023 08:20-0400 Body temperature 99.1 [degF] [address] 10-30-2023 10:15-0500 Body height 175.26 cm Coby Sosa Other [facility] 10-30-2023 10:15-0500 Body mass index (BMI) [Ratio] 18.78 kg/m2 Coby Sosa Other [facility] [employer] Other 10-30-2023 10:15-0500 Body temperature 98.7 [degF] Coby Sosa Other [facility] [employer] Other 10-30-2023 10:15-0500 Body weight 57.7 kg Coby Sosa Other [facility] [employer] Other 10-30-2023 10:15-0500 Body weight 57.69 kg MD Coby Sosa Work Phone: [facility] 10-30-2023 10:15-0500 Diastolic blood pressure 84 mm[Hg] Coby Sosa Other [facility] 10-30-2023 10:15-0500 Systolic blood pressure 124 mm[Hg] Coby Sosa Other [facility] 10-09-2023 15:45-0500 Body height 175.26 cm Coby Sosa Other [facility] 10-09-2023 15:45-0500 Body mass index (BMI) [Ratio] 19.87 kg/m2 Coby Sosa Other [facility] [employer] Other 10-09-2023 15:45-0500 Body temperature 98.3 [degF] Coby Sosa Other [facility] [employer] Other 10-09-2023 15:45-0500 Body weight 61.05 kg Coby Sosa Other [facility] 10-09-2023 15:45-0500 Diastolic blood pressure 79 mm[Hg] Coby Sosa Other [facility] 10-09-2023 15:45-0500 Systolic blood pressure 126 mm[Hg] Coby Sosa Other [facility] 08-03-2023 09:50-0400 Body mass index (BMI) [Ratio] 18.72 kg/m2 Sharan Ayoub MD Work Phone: [facility] 08-03-2023 09:50-0400 Body temperature 97.39 [degF] Sharan Ayoub MD Work Phone: [facility] 08-03-2023 09:50-0400 Body weight 59.19 kg Sharan Ayoub MD Work Phone: [facility] 08-03-2023 09:50-0400 Diastolic blood pressure 79 mm[Hg] Sharan Ayoub MD Work Phone: [facility] 08-03-2023 09:50-0400 Heart rate 68 /min Sharan Ayoub MD Work Phone: [facility] 08-03-2023 09:50-0400 SaO2% (BldA) [Mass fraction] 99 % Sharan Ayoub MD Work Phone: [facility] 08-03-2023 09:50-0400 Systolic blood pressure 134 mm[Hg] Sharan Ayoub MD Work Phone: [facility] 05-03-2023 15:29-0400 Body height 177.8 cm Coby Sosa Work Phone: VT-Pxrjjqwzqc-Jhxcjf [address] DO Work Phone: 05-03-2023 15:29-0400 Body mass index (BMI) [Ratio] 18.51 kg/m2 Coby Sosa Work Phone: AO-Olubcbkbyf-Rboswv [address] DO Work Phone: 05-03-2023 15:29-0400 Body surface area Derived from formula 1.73 m2 Coby Sosa Work Phone: VY-Vhskybsxqb-Djcodl 1600 DO Work Phone: 05-03-2023 15:29-0400 Body temperature 98.6 [degF] Coby Sosa Work Phone: XV-Lblqmbspkh-Rzhnlw [address] DO Work Phone: 05-03-2023 15:29-0400 Body weight 58.51 kg Coby Sosa Work Phone: QP-Flwaxhqvdf-Imlolr [address] DO Work Phone: 05-03-2023 15:29-0400 Diastolic blood pressure 84 mm[Hg] Coby Sosa Work Phone: AH-Kxlzfrwknd-Xvrawc [address] DO Work Phone: 05-03-2023 15:29-0400 Heart rate 63 /min Coby Sosa Work Phone: LS-Yxctqgnfrd-Oejlrd [address] DO Work Phone: 05-03-2023 15:29-0400 Systolic blood pressure 135 mm[Hg] Coby Sosa Work Phone: PH-Hxxnbkqxoi-Qxuiwj [address] DO Work Phone: 04-03-2023 10:15-0400 Body height 175.26 cm Coby Sosa Other [employer] Other 04-03-2023 10:15-0400 Body mass index (BMI) [Ratio] 18.9 kg/m2 Coby Sosa Other [employer] Other 04-03-2023 10:15-0400 Body weight 58.06 kg Coby oSsa Other [employer] Other 04-03-2023 10:15-0400 Diastolic blood pressure 64 mm[Hg] Coby Sosa Other [employer] Other 04-03-2023 10:15-0400 SaO2% (BldA) [Mass fraction] 97 % Coby Sosa Other [employer] Other 04-03-2023 10:15-0400 Systolic blood pressure 120 mm[Hg] Coby Sosa Other [employer] Other 01-26-2023 10:46-0400 Body mass index (BMI) [Ratio] 18.37 kg/m2 Coby Sosa Work Phone: SA-Oyfvbhlieu-Pkepta Work Phone: 01-26-2023 10:46-0400 Body surface area Derived from formula 1.73 m2 Coby Sosa Work Phone: JL-Pbpagdkjvi-Xofumh Work Phone: 01-26-2023 10:46-0400 Body temperature 97.6 [degF] Coby Sosa Work Phone: YS-Nbvwgkavtn-Lwqhas Work Phone: 01-26-2023 10:46-0400 Body weight 58.06 kg Coby Sosa Work Phone: GB-Hgruclvmit-Nubhhl Work Phone: 01-26-2023 10:46-0400 Diastolic blood pressure 98 mm[Hg] Coby Sosa Work Phone: GX-Cjsggwtazu-Wlxtsl Work Phone: 01-26-2023 10:46-0400 Heart rate 76 /min Coby Sosa Work Phone: US-Gtcnhsmtky-Pxytsb Work Phone: 01-26-2023 10:46-0400 Respiratory rate 18 /min Coby Sosa Work Phone: PX-Ivstfchsmg-Txsexe Work Phone: 01-26-2023 10:46-0400 SaO2% (BldA) [Mass fraction] 99 % Coby Sosa Work Phone: OV-Znekamlpbq-Rstmqx Work Phone: 01-26-2023 10:46-0400 Systolic blood pressure 142 mm[Hg] Coby Sosa Work Phone: FG-Urylacqugd-Qdxpah Work Phone: 01-26-2023 10:46-0400 0 1 Coby Sosa Work Phone: AK-Rzllcgwdml-Jtwqpc Work Phone: Comment on above: [employer] 12-22-2022 17:00-0400 Body height 175.26 cm Coby Sosa Other [employer] Other 12-22-2022 17:00-0400 Body mass index (BMI) [Ratio] 19.64 kg/m2 Coby Sosa Other [employer] Other 12-22-2022 17:00-0400 Body temperature 100 [degF] Coby Sosa Other [employer] Other 12-22-2022 17:00-0400 Body weight 60.33 kg Coby Sosa Other [employer] Other 12-22-2022 17:00-0400 Diastolic blood pressure 70 mm[Hg] Coby Sosa Other [employer] Other 12-22-2022 17:00-0400 SaO2% (BldA) [Mass fraction] 97 % Coby Sosa Other [employer] Other 12-22-2022 17:00-0400 Systolic blood pressure 106 mm[Hg] Coby Sosa Other [employer] Other 07-21-2022 10:46-0400 Body height 177.8 cm Coby Sosa Work Phone: JL-Ngazcqgyvb-Fydelw Work Phone: 07-21-2022 10:46-0400 Body mass index (BMI) [Ratio] 18.95 kg/m2 Coby Sosa Work Phone: GZ-Hornnyjjrq-Wpeism Work Phone: 07-21-2022 10:46-0400 Body surface area Derived from formula 1.75 m2 Coby Sosa Work Phone: KA-Ncaskbrvvo-Jytdcs Work Phone: 07-21-2022 10:46-0400 Body temperature 97.3 [degF] Coby Sosa Work Phone: IF-Snrjcshpdb-Suibks Work Phone: 07-21-2022 10:46-0400 Body weight 59.92 kg Coby Sosa Work Phone: AG-Jzeknmjngf-Mbsekj Work Phone: 07-21-2022 10:46-0400 Diastolic blood pressure 83 mm[Hg] Coby Sosa Work Phone: JZ-Odyeclquen-Exxnhu Work Phone: 07-21-2022 10:46-0400 Heart rate 58 /min Coby Sosa Work Phone: HT-Sagklnjyul-Ftjixm Work Phone: 07-21-2022 10:46-0400 SaO2% (BldA) [Mass fraction] 97 % Coby Canales Sosa Work Phone: WP-Olersbzbwx-Jjwcwn Work Phone: 07-21-2022 10:46-0400 Systolic blood pressure 119 mm[Hg] Coby Canales [place] Work Phone: VJ-Dduswwedty-Eukxkl Work Phone: 07-21-2022 10:46-0400 0 1 Coby Canales [place] Work Phone: KX-Ziszbhrjvz-Pmsubd Work Phone: Comment on above: [employer]Scale 02-11-2019 12:46-0400 BMI (Body Mass Index) 19.58 kg/m2 Harmeet Cochran IY-Hkqhbgtcwkkdn-Aql glas [place] Work Phone: 02-11-2019 12:46-0400 Body Temperature 97.3 [degF] Harmeet Cochran MG-Endocrinolog y-[place] Work Phone: Comment on above: Method: Tympanic 02-11-2019 12:46-0400 Body weight 61.89 kg Harmeet Cochran MG-Endocrinology -[place] Work Phone: 02-11-2019 12:46-0400 BP Diastolic 76 mm[Hg] Harmeet Cochran [facility]ocrinology -[place] Work Phone: 02-11-2019 12:46-0400 BP Systolic 121 mm[Hg] Harmeet Cochran [facility]-Endocrinology -[place] Work Phone: 02-11-2019 12:46-0400 BSA (Body Surface Area) 1.77 m2 Harmeet Cochran EV-Mcmfcdkfgenfw-Nux glas [place] Work Phone: 02-11-2019 12:46-0400 Height 177.8 cm Harmeet Cochran [facility]-Endocrinology -[place] Work Phone: 02-11-2019 12:46-0400 Pulse (Heart Rate) 62 /min Harmeet Davish MG-Endocrinol ogy-[place] Work Phone: 02-11-2019 12:46-0400 Pulse Oximetry 98 % Harmeet Cochran [facility]Endocrinology -[place] Work Phone: 02-11-2019 12:46-0400 Respiratory Rate 18 /min Harmeet Davish [facility]Endocrinolog y-[place] Work Phone: 02-11-2019 12:46-0400 0 1 Harmeet Davish MG-Endocrinology -[place] Work Phone: Comment on above: Pain Scale 01-17-2019 12:25-0400 BMI (Body Mass Index) 19.44 kg/m2 Baha Arafah MG-Gastroenterology- [place] [address] Work Phone: 01-17-2019 12:25-0400 Body Temperature 98.4 [degF] Tomasza Arafah MG-Gastroentero logy- [place] [address] Work Phone: Comment on above: Method: Oral 01-17-2019 12:25-0400 Body weight 61.46 kg aHrmeet Davish MG-Endocrinology -[place] Work Phone: 01-17-2019 12:25-0400 BP Diastolic 79 mm[Hg] Baha Arafah MG-Gastroenterol ogy- [place] [address] Work Phone: 01-17-2019 12:25-0400 BP Systolic 127 mm[Hg] Baha Arafah MG-Gastroenterol ogy- [place] [address] Work Phone: 01-17-2019 12:25-0400 BSA (Body Surface Area) 1.77 m2 Baha Arafah MG-Gastroenterology- [place] [address] [facility] Work Phone: 01-17-2019 12:25-0400 Height 177.8 cm Baha Arafah MG-Gastroenterol ogy- [place] [address] [facility] Work Phone: 01-17-2019 12:25-0400 Pulse (Heart Rate) 71 /min Baha Arafah MG-Gastroente rology- [place] [address] Work Phone: 01-17-2019 12:25-0400 Pulse Oximetry 100 % Baha Arafah MG-Gastroenterol ogy- [place] [address] [facility] Work Phone: Comment on above: Source: RA 01-17-2019 12:25-0400 Weight 61.46 kg Baha Arafah MG-Gastroenterol ogy- [place] [address] [facility] Work Phone: Encounters Encounter Date Encounter Type Care Provider Facility Start: 07-01-2024 End: 07-01-2024 Patient encounter procedure MD Coby Sosa Work Phone: [facility] [place] Work Phone: Start: 07-01-2024 End: 07-01-2024 ambulatory MD Coby Sosa Work Phone: [facility] Work Phone: Start: 05-27-2024 End: 05-27-2024 ambulatory ZHANE DE DIOS Not Available Start: 05-23-2024 End: 05-23-2024 ambulatory MD Coby Sosa Work Phone: [facility] Work Phone: Start: 05-23-2024 End: 05-23-2024 Patient encounter procedure MD [facility] Work [facility]: Start: 05-13-2024 End: 05-13-2024 ambulatory EMBER TEJEDA Not Available Start: 05-13-2024 End: 05-13-2024 Patient encounter procedure MD Coby Sosa Work Phone: [facility] [place] Work Phone: Start: 05-13-2024 End: 05-13-2024 ambulatory MD Coby Sosa Work Phone: [facility] Work Phone: Start: 05-09-2024 End: 05-09-2024 ambulatory ZHANE DE DIOS Not Available Start: 05-08-2024 Non-patient / Non-visit MD Brea Sosa Work Phone: [facility] Work Phone: Start: 04-18-2024 End: 04-18-2024 ambulatory SHARAN Koenig [facility] Start: 04-09-2024 End: 04-09-2024 ambulatory MD Coby Sosa Work Phone: [facility] Work Phone: Start: 04-09-2024 End: 04-09-2024 Patient encounter procedure MD Coby Sosa Work Phone: [facility] Work Phone: Start: 04-09-2024 End: 04-09-2024 Patient encounter procedure MD Coby Sosa Work Phone: [facility] [place] Work Phone: Start: 04-09-2024 End: 04-09-2024 ambulatory MD Coby Sosa Work Phone: [facility] Work Phone: Start: 04-02-2024 End: 04-02-2024 ambulatory EMBER TEJEDA Not Available Start: 2024 End: 2024 Patient encounter procedure MD Coby Sosa Work Phone: [facility] [place] Work Phone: Start: 2024 End: 2024 ambulatory MD Coby Sosa Work Phone: [facility] Work Phone: Start: 03-06-2024 End: 03-06-2024 Patient encounter procedure MD Coby Sosa Work Phone: [facility] [place] Work Phone: Start: 03-06-2024 End: 03-06-2024 ambulatory MD Coby Sosa Work Phone: [facility] Work Phone: Start: 02-27-2024 End: 02-27-2024 Patient encounter procedure MD Coby Sosa Work Phone: [facility] [place] Work Phone: Start: 02-27-2024 End: 02-27-2024 ambulatory MD Coby Sosa Work Phone: [facility] Work Phone: Start: 02-21-2024 End: 02-21-2024 Patient encounter procedure MD Coby Sosa Work Phone: [facility] [place] Work Phone: Start: 02-21-2024 End: 02-21-2024 ambulatory MD Coby Sosa Work Phone: [facility] Work Phone: Start: 02-15-2024 End: 02-15-2024 Patient encounter procedure MD Coby Sosa Work Phone: [facility] [place] Work Phone: Start: 02-15-2024 End: 02-15-2024 ambulatory MD Coby Sosa Work Phone: [facility] Work Phone: Start: 02-08-2024 End: 02-08-2024 ambulatory EMBER TEJEDA Not Available Start: 02-06-2024 End: 02-06-2024 Patient encounter procedure MD Coby Sosa Work Phone: [facility] [place] Work Phone: Start: 02-06-2024 End: 02-06-2024 ambulatory MD Coby Sosa Work Phone: [facility] Work Phone: Start: 02-01-2024 End: 02-01-2024 Office outpatient visit 40 minutes Sharan Ayoub MD Work Phone: [facility] Comment on above: 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) (Primary Dx) Start: 02-01-2024 End: 02-01-2024 ambulatory SHARAN Koenig [facility] Start: 01-30-2024 End: 01-30-2024 Patient encounter procedure MD Coby Sosa Work Phone: [facility] [place] Work Phone: Start: 01-30-2024 End: 01-30-2024 ambulatory MD Coby Sosa Work Phone: [facility] Work Phone: Start: 01-18-2024 End: 01-24-2024 Evaluation and management of inpatient Yung Montesinos MD Work Phone: [facility] [place] [facility] Comment on above: 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); Elevated LFTs; Complications, organ transplant; Encounter for screening for cardiovascular disorders; Type 1 diabetes mellitus with hyperglycemia (Multi) Start: 01-17-2024 End: 01-17-2024 Subsequent hospital visit by physician Dale Ul[facility]ound 3 [facility] Comment on above: 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); Elevated LFTs Start: 01-17-2024 End: 01-17-2024 ambulatory [facility] Start: 01-09-2024 End: 01-09-2024 Subsequent hospital visit by physician Dale [id number] Ultrasound [facility] Comment on above: Elevated LFTs; Liver replaced by transplant (CMS/HCC); Complications, organ transplant Start: 01-09-2024 End: 01-09-2024 ambulatory [facility] Start: 01-04-2024 End: 01-04-2024 Patient encounter procedure MD Coby Sosa Work Phone: [facility] [place] Work Phone: Start: 01-04-2024 End: 01-04-2024 ambulatory MD Coby Sosa Work Phone: [facility] Work Phone: Start: 12-19-2023 End: 12-19-2023 Subsequent hospital visit by physician [facility] Ul[facility]ound 3 [facility] Comment on above: 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); Elevated LFTs Start: 12-19-2023 End: 12-19-2023 ambulatory [facility] Start: 12-12-2023 End: 12-12-2023 Patient encounter procedure MD Coby Sosa Work Phone: [facility] [place] Work Phone: Start: 12-12-2023 End: 12-12-2023 ambulatory [facility] Facility:[facility] Start: 12-04-2023 End: 12-04-2023 Patient encounter procedure MD oCby Sosa Work Phone: [facility] [place] Work Phone: Start: 12-04-2023 End: 12-04-2023 ambulatory [facility] Facility:[facility] Start: 11-16-2023 End: 11-16-2023 ambulatory [employer] TEJEDA Not Available Start: 10-30-2023 End: 10-30-2023 ambulatory Coby Sosa Other [employer] Other Start: 10-30-2023 Office outpatient vi sit 15 minutes Coby Sosa [facility] Start: 10-30-2023 Telephone encounter Coby Sosa [facility] Start: 10-30-2023 End: 10-30-2023 Patient encounter procedure MD Coby Sosa Work Phone: [facility]- Start: 10-26-2023 End: 10-26-2023 Patient encounter procedure MD Coby Sosa Work Phone: [facility] [place] Work Phone: Start: 10-26-2023 End: 10-26-2023 ambulatory MD Coby Sosa Work Phone: [facility] Work Phone: Start: 10-09-2023 End: 10-09-2023 ambulatory Coby Sosa Other [facility] [employer] Other Start: 10-09-2023 Office outpatient vi sit 15 minutes Coby Sosa [facility] Start: 10-09-2023 End: 10-09-2023 Patient encounter procedure MD Coby Sosa Work Phone: [facility] Work Phone: Start: 10-03-2023 End: 10-03-2023 Patient encounter procedure MD Coby Sosa Work Phone: [facility] [place] Work Phone: Start: 10-03-2023 End: 10-03-2023 ambulatory MD Coby Sosa Work Phone: [facility] Work Phone: Start: 09-05-2023 End: 09-05-2023 ambulatory MD Coby Sosa Work Phone: [facility] Work Phone: Start: 09-05-2023 End: 09-05-2023 Patient encounter procedure MD Coby Sosa Work Phone: [facility] [place] Work Phone: Start: 08-16-2023 End: 08-16-2023 Patient encounter procedure MD Coby Sosa Work Phone: [facility] [place] Work Phone: Start: 08-16-2023 End: 08-16-2023 ambulatory MD Coby Sosa Work Phone: [facility] Work Phone: Start: 08-16-2023 End: 08-16-2023 ambulatory CIERRAFAIZA DEMARCO [facility] Start: 08-03-2023 End: 08-03-2023 Office outpatient visit 25 minutes Sharan Ayoub MD Work Phone: [facility] Comment on above: 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) Start: 08-03-2023 End: 08-03-2023 ambulatory SHARAN AYOUB [facility] Start: 07-18-2023 End: 07-18-2023 Patient encounter procedure MD Coby Sosa Work Phone: [facility] [place] Work Phone: Start: 07-18-2023 End: 07-18-2023 ambulatory MD Coby Sosa Work Phone: [facility] Work Phone: Start: 06-26-2023 Rx Renewal Coby Sosa Work Phone: MD-Abhmmgxhvrpwxtro-Qc [place] [address] [facility] Work Phone: Start: 06-09-2023 End: 06-09-2023 ambulatory MD Coby Sosa Work Phone: [facility] Work Phone: Start: 06-09-2023 End: 06-09-2023 Patient encounter procedure MD Coby Sosa Work Phone: [facility] [place] Work Phone: Start: 05-24-2023 AUDIT Coby Sosa Work Phone: TQ-Lppffpoiniultmyy-Er [place] [address] [facility] Work Phone: Start: 05-24-2023 Chart Update Coby Sosa Work Phone: GP-Dowtebzwqbmyqxyw-Jt [place] [address] [facility] Work Phone: Start: 05-19-2023 End: 05-19-2023 ambulatory MD Coby Sosa Work Phone: [facility] Work Phone: Start: 05-19-2023 End: 05-19-2023 Patient encounter procedure MD Coby Sosa Work Phone: [facility] [place] Work Phone: Start: 05-12-2023 AUDIT Coby Sosa Work Phone: ZR-Upywkximlyahdwzd-Gl [place] [address] [facility] Work Phone: Start: 05-11-2023 Rx Renewal Coby Sosa Work Phone: UT-Moyzhfodxibnmmdj-Ao [place] [address] [facility] Work Phone: Start: 05-03-2023 Office consultation new/estab patient 60 min Coby Sosa Work Phone: CU-Jmrawcrrlj-Cbhleb 1600 DO Work Phone: Start: 05-03-[address] [facility] Facility:[id number] Start: 04-24-2023 End: 04-24-2023 Patient encounter procedure MD Coby Sosa Work Phone: [facility] [place] Work Phone: Start: 04-04-2023 Chart Update Coby Sosa Work Phone: OT-Lfvygzoenwarzyft-Ns [place] [address] [facility] Work Phone: Start: 04-03-2023 End: 04-03-2023 ambulatory Coby Sosa Other [employer] Other Start: 04-03-2023 Office outpatient vi sit 15 minutes Coby Sosa [facility] Start: 03-28-2023 End: 03-28-2023 ambulatory MD Coby Sosa Work Phone: [facility] Work Phone: Start: 03-28-2023 End: 03-28-2023 Patient encounter procedure MD Coby Sosa Work Phone: [facility] [place] Work Phone: Start: 03-23-2023 AUDIT Coby Sosa Work Phone: CD-Stbxhxirugchjviq-Xx [place] [address] [facility] Work Phone: Start: 03-20-2023 Chart Update Coby Sosa Work Phone: VT-Alecscuxgsbqfihx-Vu [place] [address] [facility] Work Phone: Start: 03-17-2023 End: 03-17-2023 ambulatory MD Coby Sosa Work Phone: [facility] Work Phone: Start: 03-17-2023 End: 03-17-2023 Patient encounter procedure MD Coby Sosa Work Phone: [facility] [place] Work Phone: Start: 02-28-2023 AUDIT Coby Sosa Work Phone: JP-Xyfvjqtobcwtangy-Ff [place] [address] [facility] Work Phone: Start: 02-20-2023 End: 02-20-2023 Patient encounter procedure MD Coby Sosa Work Phone: [facility] [place] Work Phone: Start: 02-04-2023 Chart Update Coby Sosa Work Phone: EA-Ivswcemkeipxsocb-Js [place] [address] [facility] Work Phone: Start: 02-03-2023 End: 02-03-[address] Sharan Ayoub Facility:[facility] Start: 02-03-2023 End: 02-03-2023 Subsequent hospital visit by physician Sharan Ayoub MD Work Phone: [facility] Comment on above: Liver transplant sta tus (CMS/HCC); Other specified abnormal findings of blood chemistry; Type 2 diabetes mellitus without complications (CMS/HCC); Immunodeficiency, unspecified (CMS/HCC); Anxiety disorder, unspecified; Thyrotoxicosis, unspecified without thyrotoxic crisis or storm Start: 01-31-2023 Rx Renewal Coby Sosa Work Phone: HB-Bulkxmwuxsxthuer-Fs [place] [address] [facility] Work Phone: Start: 01-30-2023 Chart Update Coby Sosa Work Phone: OA-Fwpunwjsgopbrnbt-Oe [place] [address] [facility] Work Phone: Start: 01-27-2023 End: 01-27-2023 ambulatory MD Coby Sosa Work Phone: [facility] Work Phone: Start: 01-27-2023 End: 01-27-2023 Patient encounter procedure MD Cboy Sosa Work Phone: [facility] [place] Work Phone: Start: 01-26-2023 Patient encounter procedure Coby Sosa Work Phone: RM-Sfzoapancx-Zhyfzt Work Phone: Start: 01-26-[address] Yung Montesinos Facility:[facility] Start: 01-26-[address] Sharan Ayoub Facility:[facility] Start: 01-16-2023 End: 01-16-2023 Patient encounter procedure MD Coby Sosa Work Phone: [facility] [place] Work Phone: Start: 01-11-2023 AUDIT Coby Sosa Work Phone: WN-Fygwwiouopwzousd-Oq [place] [address] [facility] Work Phone: Start: 12-26-2022 Chart Update Coby Sosa Work Phone: LH-Zausnqerodxzqlfd-Hn [place] [address] [facility] Work Phone: Start: 12-23-2022 End: 12-23-2022 ambulatory MD Coby Sosa Work Phone: [facility] Work Phone: Start: 12-23-2022 End: 12-23-2022 Patient encounter procedure MD Coby Sosa Work Phone: [facility] [place] Work Phone: Start: 12-22-2022 End: 12-22-2022 ambulatory Coby Sosa Other [facility] [employer] Other Start: 12-22-2022 Office outpatient vi sit 15 minutes Coby Sosa [facility] Start: 11-03-2022 Chart Update Coby Sosa Work Phone: AL-Zqixlkmdosanfoqw-Nx [place] [address] [facility] Work Phone: Start: 11-02-2022 End: 11-02-2022 ambulatory MD Coby Sosa Work Phone: [facility] Work Phone: Start: 11-02-2022 End: 11-02-2022 Patient encounter procedure MD Coby Sosa Work Phone: [facility] [place] Work Phone: Start: 10-26-2022 End: 10-26-[address] COBY SOSA Facility: Start: 09-05-2022 Rx Renewal Coby Sosa Work Phone: II-Dfsqtueaqcxvxhwf-Zu [place] [address] [facility] Work Phone: Start: 08-09-2022 End: 08-09-2022 ambulatory MD Coby Sosa Work Phone: [facility] Work Phone: Start: 08-09-2022 End: 08-09-2022 Patient encounter procedure MD Coby Sosa Work Phone: [facility] [place] Start: 07-26-2022 AUDIT Coby Sosa Work Phone: YJ-Xchyztmntfglsaiz-Ls [place] [address] [facility] Work Phone: Start: 07-21-2022 Patient encounter procedure Coby Sosa Work Phone: DJ-Geqjcpheqq-Zzcqvd Work Phone: Start: 07-21-[address] Yung avila Post Facility:[facility] Start: 05-16-2022 Chart Update Coby Sosa Work Phone: IC-Vvajoqunqcvdqyoz-Zg [place] [address] [facility] Work Phone: Start: 05-11-2022 End: 05-11-2022 Patient encounter procedure MD Coby Sosa Work Phone: [facility] [place] Start: 05-10-2022 AUDIT Coby Sosa Work Phone: JP-Nuykgytyxtyiqxwn-Oq [place] [address] [facility] Work Phone: Start: 05-05-2022 Chart Update Coby Sosa Work Phone: OL-Xzplxssgatsxxtut-Le [place] [address] [facility] Work Phone: Start: 05-03-2022 End: 05-03-2022 Patient encounter procedure MD Coby Sosa Work Phone: [facility] [place] Start: 03-21-2022 AUDIT Coby Sosa Work Phone: EC-Yiqvbjycnrqgvpac-Iq [place] [address] [facility] Work Phone: Start: 03-11-2022 End: 03-11-2022 Patient encounter procedure MD Coby Sosa Work Phone: [facility] [place] Start: 02-08-2022 AUDIT Coby Sosa Work Phone: VK-Judyihqfzkezylct-Ce [place] [address] [facility] Work Phone: Start: 02-03-2022 Office outpatient vi sit 15 minutes Coby Sosa Work Phone: NU-Zsvbddzrrwthdwnb-Wp [place] [address] [facility] Work Phone: Start: 02-03-2022 Patient encounter procedure Coby Sosa Work Phone: BH-Jsxdwyyyat-YWC [address] Work Phone: Start: 12-24-2021 End: 12-24-[address] COBY SOSA Facility: Start: 12-14-2021 Chart Update Coby Sosa Work Phone: AV-Vrojwcrbunomuvji-Eu [place] [address] [facility] Work Phone: Start: 11-25-2021 AUDIT Coby Sosa Work Phone: KJ-Jgtxwklplaowsvnk-Ro [place] [address] [facility] Work Phone: Start: 11-22-2021 Chart Update Coby Sosa Work Phone: QD-Pjatvflsywmlqwgr-Ds [place] [address] [facility] Work Phone: Start: 08-31-2021 Rx Renewal Coby Sosa Work Phone: NL-Xrqdlsrawcfytlwo-Gz [place] [address] [facility] Work Phone: Start: 08-10-2021 Chart Update Coby Sosa Work Phone: GJ-Swzwambrttxhdzbz-Zy [place] [address] [facility] Work Phone: Start: 08-02-2021 Rx Renewal Coby Sosa Work Phone: GK-Qgamsehcnbtgbaza-Ok [place] [address] [facility] Work Phone: Start: 07-16-2021 AUDIT Coby Sosa Work Phone: NA-Wvdpkbqcaaejxjty-Ek [place] [address] [facility] Work Phone: Start: 07-08-2021 Patient encounter procedure Coby Sosa Work Phone: OI-Gvtxytdiwb-JSS [place] [address] Work Phone: Start: 06-23-2021 Chart Update Coby Sosa Work Phone: DU-Qhuumngxxeqspeek-Iy [place] [address] [facility] Work Phone: Start: 05-03-2021 Chart Update Coby Sosa Work Phone: BC-Nqfhxikvkgxgddgx-Xh [place] [address] I Work Phone: Start: 11-12-2020 Patient encounter procedure Harmeet Cochran MD JS-Frnrzxp-Qdrui Main Work Phone: Start: 11-09-2020 End: 11-09-2020 Patient encounter procedure Coby Sosa -Pre-Surgical Testing Start: 11-04-2020 End: 11-04-2020 Patient encounter procedure Coby Sosa -Pre-Surgical Testing Start: 10-13-2020 End: 10-13-2020 Patient encounter procedure Coby Sosa -Lab [facility] [place] Start: 10-07-2020 Registered Recurring Coby Gray [facility] Start: 04-30-2020 Patient encounter procedure Harmeet Cochran MD WR-Etjcgkt-Rcgfj Main Work Phone: Start: 10-31-2019 Patient encounter procedure Harmeet Cochran MD AQ-Ukxhnde-Hjjav Main Work Phone: Start: 08-26-2019 Patient encounter procedure Harmeet Cochran MD DU-Ylipxtd-Hmyoi Main Work Phone: Start: 07-25-2019 Patient encounter procedure Harmeet Cochran MD XC-Pfiatdq-Vqzsu Main Work Phone: Start: 07-25-2019 Patient encounter procedure Harmeet Cochran MD CP-Caippdx-Bnupp Main Work Phone: Start: 05-27-2019 Patient encounter procedure Harmeet Cochran MD IF-Mtpysiv-Pqadd Main Work Phone: Start: 04-25-2019 Patient encounter procedure Harmeet Cochran MD UP-Hhfivfl-Gztxh Main Work Phone: Start: 04-17-2019 Patient encounter procedure Harmeet Cochran MD AM-Epezsxm-Aidwm Main Work Phone: Start: 02-11-2019 Patient encounter procedure Harmeet Cochran JK-Xunrlppktrver-Ittji as [place] Work Phone: Start: 01-17-2019 Patient encounter procedure [facility] Araf[facility] CU-Zcmxppdtasbmfqve-Lx [place] [address] [facility] Work Phone: Start: 11-12-2018 Patient encounter procedure [facility] Araf[facility] QW-Xpazatnyeijblrtk-Eu [place] [address] [facility] Work Phone: Start: 11-12-2018 Patient encounter procedure [facility]aha Arafah TR-Wlbggnvapftezqjz-Uc [place] [address] [facility] Work Phone: Start: 10-10-2018 Patient encounter procedure Baha Arafah CG-Dmcqgefcdrvilyrl-Mi [place] [address] [facility] Work Phone: Start: 10-04-2018 Patient encounter procedure Baha Arafah CA-Zdsqdxfaaziawsyq-Fl [place] [address] [facility] Work Phone: Start: 08-21-2018 Patient encounter procedure [facility]aha Arafah QI-Bzfhbhedihrlwpjw-Bf [place] [address] [facility] Work Phone: Start: 07-16-2018 Patient encounter procedure Baha Arafah GU-Lhhdtjwxbplulbqm-Na [place] [address] [facility] Work Phone: Start: 07-11-2018 Patient encounter procedure [facility] Araf[facility] IJ-Muwwoqbuphwedkfu-Sa [place] [address] [facility] Work Phone: Start: 04-25-2018 Patient encounter procedure Baha Arafah PW-Qouneqyzufuvxspm-Np [place] [address] [facility] Work Phone: Start: 04-11-2018 Patient encounter procedure [facility]aha Arafah JS-Ccenxbjeaktflxtj-Xp [place] [address] [facility] Work Phone: Start: 02-13-2018 Patient encounter procedure Baha Arafah DS-Ujfrcjsimxizjhty-Hh [place] [address] [facility] Work Phone: Start: 01-31-2018 Patient encounter procedure [facility] Araf[facility] QS-Jcrrjaoepjcutald-Vp [place] [address] [facility] Work Phone: Start: 12-13-2017 Patient encounter procedure [facility]aha Arafah LW-Sojkaljjqrdjgnky-Wq [place] [address] [facility] Work Phone: Start: 11-08-2017 Patient encounter procedure Baha Arafah RG-Folikghthsjfkbdq-Bx [place] [address] [facility] Work Phone: Start: 10-04-2017 Patient encounter procedure [facility] Arafah OX-Pwrzxoufqlhezmwd-El [place] [address] [facility] Work Phone: Start: 08-30-2017 Patient encounter procedure Baha Arafah LN-Lsvoweboimrtdvcn-Ka [place] [address] [facility] Work Phone: Start: 07-11-2017 Patient encounter procedure Baha Arafah CQ-Ynvawqunhoyzvpax-Ze [place] [address] [facility] Work Phone: Start: 06-07-2017 Patient encounter procedure Baha Arafah RD-Vdrizumnqywyvpgk-Sv [place] [address] [facility] Work Phone: Start: 05-22-2017 Admission to day surgery Baha Arafah WS-Jwtqlfjuefxposzc-Ov [place] [address] [facility] Work Phone: Start: 05-11-2017 Admission to day surgery [facility]aha Arafah BU-Rogoyaifyiogeqbj-Gb [place] [address] [facility] Work Phone: Start: 04-26-2017 Patient encounter procedure Baha Arafah ML-Tjmpijvigrrcuizl-Iy [place] [address] [facility] Work Phone: Start: 04-17-2017 Admission to day surgery Baha Arafah WV-Iwhohutggshwlutq-Dp [place] [address] [facility] Work Phone: Start: 04-11-2017 Patient encounter procedure Baha Arafah GL-Zcwuqfwtrddweuor-Ar [place] [address] [facility] Work Phone: Start: 02-20-2017 Admission to day surgery Baha Arafah RR-Cmppicqtuuseygcn-Xz [place] [address] [facility] Work Phone: Procedures Date Procedure Procedure Detail Performing Clinician Start: 01-24-2024 Glucose [Mass/volume] in Serum or Plasma SHARAN JHONY Start: 01-24-2024 Glucose [Mass/volume] in Serum or Plasma SHARAN JHONY Start: 01-24-2024 DISCHARGE PATIENT SHARAN HARRISONOLALiberty Start: 01-24-2024 Glucose quantitative blood xcpt reagent strip Olivia Castaneda MD Work Phone: Start: 01-24-2024 Glucose quantitative blood xcpt reagent strip Olivia Castaneda MD Work Phone: Start: 01-24-2024 Glucose [Mass/volume] in Serum or Plasma SHARAN GHOLAM Start: 01-24-2024 Basic metabolic 2000 panel - Serum or Plasma SHARAN GHOLAM Start: 01-24-2024 CBC W Auto Differential panel - Blood SHARAN GHOLAM Start: 01-24-2024 Hepatic function 2000 panel - Serum or Plasma SHARAN GHOLAM Start: 01-24-2024 Magnesium [Mass/volume] in Serum or Plasma SHARAN GHOLAM Start: 01-24-2024 Phosphate [Mass/volume] in Serum or Plasma SHARAN GHOLAM Start: 01-24-2024 PROTIME-INR SHARAN HUNTEROLAM Start: 01-24-2024 Tacrolimus [Mass/volume] in Blood SHARAN GHOLAM Start: 01-24-2024 End: 01-24-2024 Comprehensive metabolic panel Mya Dawson MD Work Phone: Start: 01-24-2024 Drug screen quantitative tacrolimus Mya Dawson MD Work Phone: Start: 01-24-2024 Glucose [Mass/volume] in Serum or Plasma SHARAN GHOLAM Start: 01-24-2024 Glucose quantitative blood xcpt reagent strip Olivia Castaneda MD Work Phone: Start: 01-23-2024 Glucose [Mass/volume] in Serum or Plasma SHARAN GHOLAM Start: 01-23-2024 Glucose quantitative blood xcpt reagent strip Olivia Castaneda MD Work Phone: Start: 01-23-2024 Glucose [Mass/volume] in Serum or Plasma SHARAN GHOLAM Start: 01-23-2024 TRANSTHORACIC ECHO (TTE) COMPLETE SHARAN HUNTEROLAM Start: 01-23-2024 Glucose quantitative blood xcpt reagent strip Olivia Castaneda MD Work Phone: Start: 01-23-2024 Echo tthrc r-t 2d w/wom-mode compl spec&colr d Olivia Castaneda MD Work Phone: Start: 01-23-2024 Basic metabolic 2000 panel - Serum or Plasma SHARAN NAVARRETEM Start: 01-23-2024 CBC W Auto Differential panel - Blood SHARAN NAVARRETEM Start: 01-23-2024 Hepatic function 2000 panel - Serum or Plasma SHARAN HARRISONOLAM Start: 01-23-2024 Magnesium [Mass/volume] in Serum or Plasma SHARAN GHOLAM Start: 01-23-2024 Phosphate [Mass/volume] in Serum or Plasma SHARAN HUNTEROLAM Start: 01-23-2024 PROTIME-INR SHARAN AYOUB Start: 01-23-2024 Tacrolimus [Mass/volume] in Blood SHARAN HARRISONOLAM Start: 01-23-2024 Glucose [Mass/volume] in Serum or Plasma SHARAN HARRISONOLAM Start: 01-23-2024 US LIVER WITH DOPPLER SHARAN AYOUB Start: 01-23-2024 End: 01-23-2024 Comprehensive metabolic panel Mya Dawson MD Work Phone: Start: 01-23-2024 Drug screen quantitative tacrolimus Mya Dawson MD Work Phone: Start: 01-23-2024 Us abdominal real time w/image limited Debo Urias MD Work Phone: Start: 01-23-2024 Glucose [Mass/volume] in Serum or Plasma SHARAN NAVARRETEM Start: 01-23-2024 SURGICAL PATHOLOGY EXAM SHARAN AYOUB Start: 01-23-2024 US GUIDED NEEDLE LIVER BIOPSY SHARAN AYOUB Start: 01-23-2024 Glucose [Mass/volume] in Serum or Plasma SHARAN HUNTEROLAM Start: 01-23-2024 Glucose quantitative blood xcpt reagent strip Olivia Castaneda MD Work Phone: Start: 01-23-2024 Biopsy liver needle percutaneous Mya Dawson MD Work Phone: Start: 01-23-2024 Glucose quantitative blood xcpt reagent strip Olivia Castaneda MD Work Phone: Start: 01-23-2024 POCT GLUCOSE METER SHARAN MARTAM Start: 01-22-2024 Glucose [Mass/volume] in Serum or Plasma SHARAN HUNTEROLAM Start: 01-22-2024 Glucose quantitative blood xcpt reagent strip Olivia Castaneda MD Work Phone: Start: 01-22-2024 Glucose [Mass/volume] in Serum or Plasma SHARAN HUNTEROLAM Start: 01-22-2024 POCT GLUCOSE METER SHARAN NAVARRETEM Start: 01-22-2024 Glucose quantitative blood xcpt reagent strip Olivia Castaneda MD Work Phone: Start: 01-22-2024 Glucose [Mass/volume] in Serum or Plasma SHARAN HUNTEROLAM Start: 01-22-2024 Natriuretic peptide B [Mass/volume] in Blood SHARAN GHOLAM Start: 01-22-2024 Tacrolimus [Mass/volume] in Blood SHARAN GHOLAM Start: 01-22-2024 Drug screen quantitative tacrolimus Mya Dawson MD Work Phone: Start: 01-22-2024 End: 01-22-2024 Natriuretic peptide Mya Dawson MD Work Phone: Start: 01-22-2024 Glucose [Mass/volume] in Serum or Plasma SHARAN HUNTEROLAM Start: 01-22-2024 Basic metabolic 2000 panel - Serum or Plasma SHARAN HUNTEROLAM Start: 01-22-2024 CBC W Auto Differential panel - Blood SHARAN HUNTEROLAM Start: 01-22-2024 Hepatic function 2000 panel - Serum or Plasma SHARAN GHOLAM Start: 01-22-2024 Magnesium [Mass/volume] in Serum or Plasma SHARAN GHOLAM Start: 01-22-2024 Phosphate [Mass/volume] in Serum or Plasma SHARAN GHOLAM Start: 01-22-2024 Glucose quantitative blood xcpt reagent strip Olivia Castaneda MD Work Phone: Start: 01-22-2024 End: 01-22-2024 Comprehensive metabolic panel Blaine Linares MD Work Phone: Start: 01-21-2024 Glucose [Mass/volume] in Serum or Plasma SHARAN GHOLAM Start: 01-21-2024 Glucose quantitative blood xcpt reagent strip Olivia Castaneda MD Work Phone: Start: 01-21-2024 Glucose [Mass/volume] in Serum or Plasma SHARAN GHOLAM Start: 01-21-2024 Glucose quantitative blood xcpt reagent strip Olivia Castaneda MD Work Phone: Start: 01-21-2024 Glucose [Mass/volume] in Serum or Plasma SHARAN GHOLAM Start: 01-21-2024 Basic metabolic 2000 panel - Serum or Plasma SHARAN GHOLAM Start: 01-21-2024 CBC W Auto Differential panel - Blood SHARAN GHOLAM Start: 01-21-2024 Hepatic function 2000 panel - Serum or Plasma SHARAN GHOLAM Start: 01-21-2024 Magnesium [Mass/volume] in Serum or Plasma SHARAN GHOLAM Start: 01-21-2024 Phosphate [Mass/volume] in Serum or Plasma SHARAN GHOLAM Start: 01-21-2024 PROTIME-INR SHARAN HUNTEROLAM Start: 01-21-2024 Tacrolimus [Mass/volume] in Blood SHARAN GHOLAM Start: 01-21-2024 End: 01-21-2024 Comprehensive metabolic panel Mya Dawson MD Work Phone: Start: 01-21-2024 Drug screen quantitative tacrolimus Mya Dawson MD Work Phone: Start: 01-21-2024 Glucose [Mass/volume] in Serum or Plasma SHARAN GHOLAM Start: 01-21-2024 Glucose quantitative blood xcpt reagent strip Olivia Castaneda MD Work Phone: Start: 01-21-2024 POCT GLUCOSE METER SHARAN HUNTEROLAM Start: 01-20-2024 Glucose [Mass/volume] in Serum or Plasma SHARAN GHOLAM Start: 01-20-2024 Glucose quantitative blood xcpt reagent strip Olivia Castaneda MD Work Phone: Start: 01-20-2024 Glucose [Mass/volume] in Serum or Plasma SHARAN GHOLAM Start: 01-20-2024 Glucose quantitative blood xcpt reagent strip Olivia Castaneda MD Work Phone: Start: 01-20-2024 Glucose [Mass/volume] in Serum or Plasma SHARAN GHOLAM Start: 01-20-2024 Tacrolimus [Mass/volume] in Blood SHARAN GHOLAM Start: 01-20-2024 Basic metabolic 2000 panel - Serum or Plasma SHARAN GHOLAM Start: 01-20-2024 CBC W Auto Differential panel - Blood SHARAN HARRISONOLAM Start: 01-20-2024 Hepatic function 2000 panel - Serum or Plasma SAHRAN HUNTEROLAM Start: 01-20-2024 Magnesium [Mass/volume] in Serum or Plasma SHARAN GHOLAM Start: 01-20-2024 Phosphate [Mass/volume] in Serum or Plasma SHARAN GHOLAM Start: 01-20-2024 PROTIME-INR SHARAN HUNTEROLA Start: 01-20-2024 Tacrolimus [Mass/volume] in Blood SHARAN GHOLAM Start: 01-20-2024 Glucose quantitative blood xcpt reagent strip Olivia Castaneda MD Work Phone: Start: 01-20-2024 Drug screen quantitative tacrolimus Mya Dawson MD Work Phone: Start: 01-20-2024 Glucose [Mass/volume] in Serum or Plasma SHARAN HUNTEROLAM Start: 01-20-2024 Comprehensive metabolic panel Mya Dawson MD Work Phone: Start: 01-20-2024 Drug screen quantitative tacrolimus Mya Dawson MD Work Phone: Start: 01-20-2024 Glucose quantitative blood xcpt reagent strip Olivia Castaneda MD Work Phone: Start: 01-20-2024 POCT GLUCOSE METER [facility] Start: 01-20-2024 Glucose [Mass/volume] in Serum or Plasma SHARAN GHOLAM Start: 01-19-2024 Glucose quantitative blood xcpt reagent strip Olivia Castaneda MD Work Phone: Start: 01-19-2024 Glucose [Mass/volume] in Serum or Plasma SHARAN HUNTEROLAM Start: 01-19-2024 Glucose [Mass/volume] in Serum or Plasma SHARAN HUNTEROLAM Start: 01-19-2024 Glucose quantitative blood xcpt reagent strip Olivia Castaneda MD Work Phone: Start: 01-19-2024 Glucose [Mass/volume] in Serum or Plasma SHARAN GHOLAM Start: 01-19-2024 Glucose quantitative blood xcpt reagent strip Olivia Castaneda MD Work Phone: Start: 01-19-2024 Glucose quantitative blood xcpt reagent strip Olivia Castaneda MD Work Phone: Start: 01-19-2024 Glucose [Mass/volume] in Serum or Plasma SHARAN GHOLAM Start: 01-19-2024 Glucose quantitative blood xcpt reagent strip Olivia Castaneda MD Work Phone: Start: 01-19-2024 Glucose [Mass/volume] in Serum or Plasma SHARAN GHOLAM Start: 01-19-2024 Glucose quantitative blood xcpt reagent strip Olivia Castaneda MD Work Phone: Start: 01-19-2024 POCT GLUCOSE METER SHARAN MARTAM Start: 01-19-2024 Glucose [Mass/volume] in Serum or Plasma SHARAN GHOLAM Start: 01-19-2024 Basic metabolic 2000 panel - Serum or Plasma SHARAN GHOLAM Start: 01-19-2024 CBC W Auto Differential panel - Blood SHARAN GHOLAM Start: 01-19-2024 COAGULATION SCREEN SHARAN GHOLAM Start: 01-19-2024 Hemoglobin A1c/Hemoglobin.total in Blood SHARAN GHOLAM Start: 01-19-2024 Hepatic function 2000 panel - Serum or Plasma SHARAN GHOLAM Start: 01-19-2024 Magnesium [Mass/volume] in Serum or Plasma SHARAN GHOLAM Start: 01-19-2024 Phosphate [Mass/volume] in Serum or Plasma SHARAN GHOLAM Start: 01-19-2024 Tacrolimus [Mass/volume] in Blood SHARAN GHOLAM Start: 01-19-2024 End: 01-19-2024 Comprehensive metabolic panel Sukumar Thomson MD Work Phone: Start: 01-19-2024 Drug screen quantitative tacrolimus Patti Darnell MD Work Phone: Start: 01-19-2024 MICROSCOPIC ONLY, URINE SHARAN GHOLAM Start: 01-19-2024 URINALYSIS WITH REFLEX MICROSCOPIC SHARAN AYOUB Start: 01-18-2024 Bacteria identified in Blood by Culture SHARAN AYOUB Start: 01-18-2024 CBC W Auto Differential panel - Blood SHARAN AYOUB Start: 01-18-2024 CMV DNA, QUANTITATIVE, PCR, PLASMA SHARAN AYOUB Start: 01-18-2024 COAGULATION SCREEN SHARAN AYOUB Start: 01-18-2024 Comprehensive metabolic 2000 panel - Serum or Plasma SHARAN AYOUB Start: 01-18-2024 EBV PCR, QUANTITATIVE, PLASMA SHARAN AYOUB Start: 01-18-2024 Magnesium [Mass/volume] in Serum or Plasma SHARAN AYOUB Start: 01-18-2024 Phosphate [Mass/volume] in Serum or Plasma SHARAN AYOUB Start: 01-18-2024 Urinalysis microscopic panel - Urine Qualitative by Automated Patti Darnell MD Work Phone: Start: 01-18-2024 Urnls dip stick/tablet reagent auto microscopy Patti Darnell MD Work Phone: Start: 01-18-2024 FULL CODE SHARAN AYOUB Start: 01-18-2024 IP CONSULT TO ENDOCRINOLOGY SHARAN AYOUB Start: 01-18-2024 REASON FOR NO VTE PROPHYLAXIS AT ADMISSION SHARAN AYOUB Start: 01-18-2024 ADMIT TO INPATIENT SHARAN AYOUB Start: 01-18-2024 Comprehensive metabolic panel Patti Darnell MD Work Phone: Start: 01-18-2024 Culture bacterial blood aerobic w/id isolates Patti Darnell MD Work Phone: Start: 01-17-2024 DISCHARGE PATIENT SHARAN AYOUB Start: 01-17-2024 SURGICAL PATHOLOGY EXAM SHARAN AYOUB Start: 01-17-2024 US GUIDED NEEDLE LIVER BIOPSY SHARAN HARRISONDOMINICK Start: 01-17-2024 Biopsy liver needle percutaneous Sharan Ayoub MD Work Phone: Start: 01-09-2024 US LIVER WITH DOPPLER SHARAN HARRISONDOMINICK Start: 01-09-2024 Us abdominal real time w/image limited Sharan Ayoub MD Work Phone: Start: 12-19-2023 SURGICAL PATHOLOGY EXAM SHARAN AYOUB Start: 12-19-2023 DISCHARGE PATIENT SHARAN AYOUB Start: 12-19-2023 US GUIDED NEEDLE LIVER BIOPSY SHARAN AYOUB Start: 12-19-2023 Glucose [Mass/volume] in Serum or Plasma SHARAN AYOUB Start: 12-19-2023 Biopsy liver needle percutaneous Sharan Ayoub MD Work Phone: Start: 12-19-2023 Glucose quantitative blood xcpt reagent strip Interface Unspecifiedprovider Work Phone: Start: 10-26-2023 Tacrolimus [Mass/volume] in Blood SHARAN AYOUB Start: 10-26-2023 Drug screen quantitative tacrolimus Sharan Ayoub MD Work Phone: Start: 06-09-2023 Lipid 1996 panel - Serum or Plasma hSaran Ayoub MD Work Phone: Start: 06-09-2023 Thyrotropin [Units/volume] in Serum or Plasma Sharan Ayoub MD Work Phone: Start: 02-03-2023 US Guidance for biopsy of Liver Sharan Ayoub MD Work Phone: Start: 02-03-2023 SURGICAL PATHOLOGY RESULTS Yoel Perera PA-C Work Phone: Start: 02-11-2019 Hemoglobin glycosylated a1c Harmeet Cochran Start: 02-06-2019 IO Liver Ultrasound Harmeet Cochran Start: 02-06-2019 Ultrasound Liver Harmeet Cochran Start: 01-17-2019 Basic metabolic 1998 panel - Serum or Plasma Harmeet Cochran Start: 01-17-2019 Creatinine clearance Harmeet Cochran Start: 04-08-2016 H/O: liver recipient Liver replaced by transplant Sharan Ayoub MD Work Phone: H/O: liver recipient Liver repla jenna by transplant Harmeet Cochran MD H/O: liver recipient Liver repla jenna by transplant (CMS/HCC) Sharan Ayoub MD Work Phone: H/O: liver recipient Liver trans plant status (CMS/HCC) Sharan Ayoub MD Work Phone: H/O: liver recipient Liver repla jenna by transplant (CMS/HCC) [facility] H/O: liver recipient Liver repla jenna by transplant (CMS/HCC) [facility] Ultrasound H/O: liver recipient Liver repla jenna by transplant (Multi) [facility] 3 H/O: liver recipient Liver repla jenna by transplant (Multi) Sharan Ayoub MD Work Phone: H/O: liver recipient Liver repla jenna by transplant MD Coby Sosa Work Phone: History of Liver Transplant Harmeet Cochran Plan of Treatment Date Care Activity Detail Author Start: 2053 RSV patient s and/or patients aged 60+ years (1 - 1-dose 60+ series) RSV patients and/or patients aged 60+ years (1 - 1-dose 60+ series) [facility] Start: 06-09-2024 Lipid panel Lipid Panel [facility] Start: 06-09-2024 Thyroid stimulating hormone measurement TSH Level [facility] Start: 06-07-2024 End: 06-07-2024 Patient encounter procedure 06/07/2024 9:45 AM EDT Office Visit [facility] [place] [address] [facility] [address] [place] [id number] [place] [address] [address] Department [place] [address] [facility] Start: 06-02-2024 Influenza vaccination Influenz a Vaccine (Season Ended) [facility] Start: 04-19-2024 Hemoglobin A1c measurement Diabetes: Hemoglobin A1C [facility] Start: 04-18-2024 End: 04-18-2024 Patient encounter procedure 04/18/2024 9:30 AM EDT Office Visit [facility] [place] [address] [place] [id number] [place] [address] [address] Department [place] [address] [facility] Start: 02-01-2024 End: 02-01-2024 Patient encounter procedure [facility] Comment on above: 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) (Primary Dx) 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) (Primary Dx) Start: 10-03-2023 [facility] Start: 09-05-2023 [facility] Start: 08-03-2023 LIVFUVMED, Provider: Sharan Ayoub, Status: Pen, Time: 10:00 AM LIVFUVMED, Provider: Sharan Ayoub, Status: Pen, Time: 10:00 AM KE-Wwczljhysu-Hxffa r Work Phone: Start: 08-02-2023 VIRFUVHOMAlly, Provider : Leighton Reilly, Status: Pen, Time: 2:40 PM VIRFUVHOME, Provider: Leighton Reilly, Status: Pen, Time: 2:40 PM GI-Zsnoyowjjy-Ivuyj r [address] DO Work Phone: Start: 07-18-2023 [facility] Start: 06-09-2023 [facility] Start: 06-02-2023 Influenza vaccination Influenz a Vaccine (#1) [facility] Start: 05-19-2023 [facility] Start: 05-03-2023 FUVHOSP, Provider: Leighton Reilly, Status: Pen, Time: 4:00 PM FUVHOSP, Provider: Leighton Reilly, Status: Pen, Time: 4:00 PM [facility] [address] [facility] Work Phone: Start: 03-28-2023 [facility] Start: 03-28-2023 VIRNPCORINE, Provider : Angela Mc, Status: Pen, Time: 10:20 AM VIRNPVERINN, Provider: Angela Mc, Status: Pen, Time: 10:20 AM [facility] [address] [facility] Work Phone: Start: 03-22-2023 FUVHOSP, Provider: Leighton Reilly, Status: Pen, Time: 3:20 PM FUVHOSP, Provider: Leighton Reilly, Status: Pen, Time: 3:20 PM [facility] [address] [facility] Work Phone: Start: 01-26-2023 LIVFUVMED, Provider: Sharan Ayoub, Status: Pen, Time: 10:45 AM LIVFUVMED, Provider: Sharan Ayoub, Status: Pen, Time: 10:45 AM [facility] [address] [facility] Work Phone: Start: 01-19-2023 LIVFUVMED, Provider: Sharan Ayoub, Status: Pen, Time: 10:45 AM LIVFUVMED, Provider: Sharan Ayoub, Status: Pen, Time: 10:45 AM UY-Gouqfskhuv-Phbqa r Work Phone: Start: 07-21-2022 LIVFUVMED, Provider: Sharan Ayoub, Status: Pen, Time: 10:45 AM LIVFUVMED, Provider: Sharan Ayoub, Status: Pen, Time: 10:45 AM [facility] [address] [facility] Work Phone: Start: 05-11-2022 End: 05-11-2022 Patient encounter procedure [facility] Start: 02-03-2022 VIRFUVHOME, Provider : Sharan Ayoub, Status: Pen, Time: 9:00 AM VIRFUVHOME, Provider: Sharan Ayoub, Status: Pen, Time: 9:00 AM [facility] [facility] Work Phone: Start: 07-08-2021 VIRFUVHOME, Provider : Sharan Ayoub, Status: Pen, Time: 10:30 AM VIRFUVHOME, Provider: Sharan Ayoub, Status: Pen, Time: 10:30 AM [facility] [facility] Work Phone: Start: 05-06-2021 LIVFUVMBRENDA, Provider: Sharan Ayoub, Status: Pen, Time: 10:15 AM LIVFUVMED, Provider: Sharan Ayoub, Status: Pen, Time: 10:15 AM [facility] Work Phone: Start: 03-16-2020 DTaP/Tdap/Td Vaccine s (2 - Td or Tdap) DTaP/Tdap/Td Vaccines (2 - Td or Tdap) [facility] Start: 03-11-2019 Ultrasound Liver [facility] [address] [facility] Work Phone: Start: 03-04-2019 IO Liver Ultrasound [facility] [address] [facility] Work Phone: Start: 11-21-2017 Hemoglobin A1c measurement Diabetes: Hemoglobin A1C [facility] Start: 2015 DTaP/Tdap/Td Vaccine s (1 - Tdap) DTaP/Tdap/Td Vaccines (1 - Tdap) [facility] Start: 2012 Hepatitis A Vaccines (1 of 2 - Risk 2-dose series) Hepatitis A Vaccines (1 of 2 - Risk 2-dose series) [facility] Start: 2012 Urine screening for protein Diabetes: Urine Protein Screening [facility] Start: 2012 Zoster Vaccines (1 of 2) Zoste r Vaccines (1 of 2) [facility] Start: 09-15-2010 Hepatitis A Vaccines (2 of 2 - Risk 2-dose series) Hepatitis A Vaccines (2 of 2 - Risk 2-dose series) [facility] Start: 04-20-2010 Hepatitis B Vaccines (2 of 3 - 3-dose series) Hepatitis B Vaccines (2 of 3 - 3-dose series) [facility] Start: 2006 Varicella vaccination Varicell a Vaccines (1 of 2 - 13+ 2-dose series) [facility] Start: 2003 Diabetic foot examination Diabetes: Foot Exam [facility] Start: 2003 Glaucoma screening Diabetes: R etinopathy Screening [facility] Start: 1999 Pneumococcal Vaccine : Pediatrics (0 to 5 Years) and At-Risk Patients (6 to 64 Years) (1 - PCV) Pneumococcal Vaccine: Pediatrics (0 to 5 Years) and At-Risk Patients (6 to 64 Years) (1 - PCV) [facility] Start: 1999 Pneumococcal Vaccine : Pediatrics (0 to 5 Years) and At-Risk Patients (6 to 64 Years) (1 of 2 - PCV) Pneumococcal Vaccine: Pediatrics (0 to 5 Years) and At-Risk Patients (6 to 64 Years) (1 of 2 - PCV) [facility] Start: 1998 COVID-19 Vaccine (#1) COVID-19 Vacci ne (#1) [facility] Start: 1994 MMR Vaccines (1 of 1 - Standard series) MMR Vaccines (1 of 1 - Standard series) [facility] Start: 1994 Varicella vaccination Varicell a Vaccines (1 of 2 - 2-dose childhood series) [facility] Start: 1993 Cyanocobalamin vitam in b-12 Vitamin B-12 [facility] Start: 1993 Diabetes: Celiac Dis ease Screening Diabetes: Celiac Disease Screening [facility] Start: 1993 Hepatitis B Vaccines (1 of 3 - 3-dose series) Hepatitis B Vaccines (1 of 3 - 3-dose series) [facility] Start: 1993 HIV screening HIV Screening [facility] Start: 1993 Yearly Adult Physical Yearly Adult P hysical [facility] Electrocardiogram, 12-lead PRN ACS symptoms Electrocardiogram, 12-lead PRN ACS symptoms ECG Routine As needed until discontinued starting 01/18/2024 [facility] Service Area Work Phone: Comment on above: As needed until disc ontinued starting 01/18/2024 Isaac Fair virus D NA [#/volume] (viral load) in Blood by LÁZARO with probe detection [facility] Isaac Fair virus D NA [#/volume] (viral load) in Blood by LÁZARO with probe detection [facility] Isaac Fair virus D NA [#/volume] (viral load) in Serum or Plasma by LÁZARO with probe detection [facility] Isaac Fair virus D NA [#/volume] (viral load) in Serum or Plasma by LÁZARO with probe detection [facility] Isaac Fair virus D NA [#/volume] (viral load) in Serum or Plasma by LÁZARO with probe detection [facility] Isaac Fair virus D NA [#/volume] (viral load) in Serum or Plasma by LÁZARO with probe detection [facility] Isaac Fair virus D NA assay [facility] Isaac Fair virus D NA assay [facility] Isaac Fair virus D NA assay [facility] Isaac Fair virus D NA assay [facility] Glucose [Mass/volume ] in Serum or Plasma POCT Glucose Point of Care Testing - Docked Device Routine As needed (Lab) until discontinued starting 01/18/2024 [facility] Work Phone: Comment on above: As needed (Lab) unti l discontinued starting 01/18/2024 End: 01-19-2024 Glucose [Mass/volume] in Serum or Plasma POCT Glucose Point of Care Testing - Docked Device Routine Once (Lab) for 1 Occurrences starting 01/19/2024 until 01/19/2024 [facility] Work Phone: Comment on above: Once (Lab) for 1 Occ urrences starting 01/19/2024 until 01/19/2024 End: 01-21-2024 Glucose [Mass/volume] in Serum or Plasma POCT Glucose Point of Care Testing - Docked Device Routine 4 times daily before meals and at bedtime for 3 Days starting 01/19/2024 until 01/21/2024, 6 completed [facility] Work Phone: Comment on above: 4 times daily before meals and at bedtime for 3 Days starting 01/19/2024 until 01/21/2024, 6 completed End: 01-25-2024 Glucose [Mass/volume] in Serum or Plasma POCT Glucose Point of Care Testing - Docked Device Routine 4 times daily before meals and at bedtime for 3 Days starting 01/22/2024 until 01/25/2024, 2 completed [facility] Service Area Work Phone: Comment on above: 4 times daily before meals and at bedtime for 3 Days starting 01/22/2024 until 01/25/2024, 2 completed Polymerase chain reaction for Isaac-Fair virus [facility] Polymerase chain reaction for Isaac-Fair virus [facility] End: 12-19-2023 Surgical pathology study [facility] Service Grabiel bailey Work Phone: Comment on above: Once (Lab) for 1 Occ urrences starting 12/19/2023 until 12/19/2023, 1 completed End: 01-17-2024 Surgical pathology study [facility] Service Grabiel bailey Work Phone: Comment on above: Once (Lab) for 1 Occ urrences starting 01/17/2024 until 01/17/2024, 1 completed End: 01-23-2024 Surgical pathology study [facility] Service Grabiel bailey Work Phone: Comment on above: Once (Lab) for 1 Occ urrences starting 01/23/2024 until 01/23/2024, 1 completed Tacrolimus [Mass/vol ume] in [facility] Tacrolimus [Mass/vol ume] in [facility] Tacrolimus [Mass/vol ume] in [facility] Tacrolimus [Mass/vol ume] in [facility] Tacrolimus [Mass/vol ume] in [facility] Tacrolimus [Mass/vol ume] in [facility] Tacrolimus [Mass/vol ume] in [facility] Tacrolimus [Mass/vol ume] in [facility] Tacrolimus [Mass/vol ume] in [facility] Tacrolimus [Mass/vol ume] in [facility] Tacrolimus [Mass/vol ume] in [facility] Tacrolimus [Mass/vol ume] in [facility] [facility] Work Phone: [facility] NEGATED: Highlighted row has been ruled out! Planned Goals not documented [facility] [facility] Work Phone: Immunizations Immunization Date Immunization Notes Care Provider [facility] 08-15-2016 influenza, seasonal, injectable, preservative free; Translations: [Fluarix 0.5 ML MATIAS] Harmeet Cochran -G[facility]- [place] [address] [facility] Work Phone: Comment on above: Series: 08-15-2016 influenza virus vaccine, unspecified formulation Sharan Ayoub MD Work Phone: [facility] Work Phone: 03-23-2010 hepatitis B vaccine, pediatric or pediatric/adolescent dosage Yung Montesinos MD Work Phone: [facility] Work Phone: 03-16-2010 hepatitis A vaccine, adult dosage Yung Montesinos MD Work Phone: [facility] Work Phone: 03-16-2010 tetanus toxoid, redu jenna diphtheria toxoid, and acellular pertussis vaccine, adsorbed Yung Montesinos MD Work Phone: [facility] Work Phone: 03-16-2010 hepatitis A and hepatitis B vaccine [address] Work Phone: Payers Date Payer Category Payer Self-pay [id number] 2022 Private Health Insurance [facility] [id number] 2022-Present [address] [place] [address] [id number] 2022 Unknown 1993 Unknown [id number] 2.16.840.1.561237.3.579.2. 593 1993 Unknown [id number] 2.16.840.1.344053.3.579.2. 593 1993 Unknown [id number] 2.16.840.1.773860.3.579.2. 356 1993 Unknown [id number] 2.16.840.1.647362.3.579.2. 356 1993 Unknown [id number] 2.16.840.1.530693.3.579.2. 356 1993 Unknown [id number] 2.16.840.1.596833.3.579.2. 356 1993 Unknown [id number] 2.16.840.1.632353.3.579.2. 356 1993 Unknown [id number] 2.16.840.1.843243.3.579.2. 1258 1993 Unknown [id number] 2.16.840.1.601116.3.579.2. 1258 1993 Unknown [id number] 2.16840.1.148997.3.579.2. 1258 1993 Unknown [id number] 2.840.1.383614.3.579.2. 1258 1993 Unknown [id number] 2.840.1.672601.3.579.2. 1258 1993 Unknown [id number] 2.16840.1.410714.3.579.2. 1258 1993 Unknown [id number] 2.16840.1.121949.3.579.2. 1244 1993 Unknown [id number] 2.16840.1.448030.3.579.2. 1244 1993 Unknown [id number] 2.16840.1.976042.3.579.2. 1244 1993 Unknown [id number] 2.16840.1.450126.3.579.2. 1244 1993 Unknown [id number] 2.16840.1.347520.3.579.2. 1244 1993 Unknown [id number] 2.16840.1.160257.3.579.2. 1244 1993 Unknown [id number] 2.16840.1.152803.3.579.2. 1245 1993 Unknown [id number] 2.16.840.1.884929.3.579.2. 1245 1959 Unknown [id number] 1959 Unknown [id number] Unknown [id number] Unknown [id number] 2.16.840.1.079509.19 Unknown [id number] 2.16.840.1.894898.3.579.2. 531 Unknown [id number] 2.16.840.1.307139.3.579.2. 531 Unknown [id number] 2.16.840.1.909383.3.579.2. 531 Unknown [id number] 2.16840.1.153477.3.579.2. 531 Unknown [id number] 2.16.840.1.788702.3.579.2. 531 Unknown [id number] 2.16.840.1.916045.3.579.2. 531 Unknown [id number] 2.16.840.1.546276.3.579.2. 531 Unknown [id number] 2.16.840.1.484673.3.579.2. 531 Unknown [id number] 2.16.840.1.850196.3.579.2. 531 Unknown [id number] 2.16.840.1.704832.3.579.2. 531 Unknown [id number] 2.16.840.1.333871.3.579.2. 531 Unknown [id number] 2.16.840.1.249589.3.579.2. 531 Unknown [id number] 2.16.840.1.057012.3.579.2. 531 Unknown [id number] 2.16.840.1.676246.3.579.2. 531 Unknown [id number] 2.16.840.1.332335.3.579.2. 531 Unknown [id number] 2.16.840.1.921301.3.579.2. 531 Unknown [id number] 2.16.840.1.649142.3.579.2. 531 Unknown [id number] 2..840.1.392385.3.579.2. 531 Social History Date Type Detail Facility Start: 1995 Sex Assigned At Male [facility] Start: 07-19-2023 End: 01-19-2024 Does not use tobacco Does not use tobacco [facility] [place] [address] [facility] Work Phone: Start: 11-11-2020 End: 07-19-2023 Tobacco smoking status NHIS Never smoked tobacco (finding) [facility] Start: 07-19-2023 End: 01-19-2024 Sex Assigned At [place] Other Start: 07-19-2023 Tobacco use and exposure Smokeless tobacco non-user [facility] Work Phone: Start: 1995 Sex Assigned At Not on file [facility] Work Phone: Start: 07-24-2023 End: 02-01-2024 Exposure to SARS-CoV-2 (event) Not sure [facility] Tobacco smoking status CAIS Tobacco smoking consumption unknown [facility] Work Phone: Start: 12-19-2023 Alcohol intake Lifetime non-d lyndon (finding) [facility] Work Phone: How often to you have a drink containing alcohol? Never [facility] Work Phone: How many standard drinks containing alcohol do you have on a typical day? Patient does not drink [facility] Work Phone: In the past 12 months, was there a time when you were not able to pay the mortgage or rent on time? No [facility] Work Phone: NEGATED: Highlighted row - Never smoker [facility] [place] [address] [facility] Work Phone: Medical Equipment Procedure Code Equipment Code Equipment Origin al Text Equipment Identifier Dates Start: 10-25-2016 BD Pen Needle Na no U/F 32G X 4 MM Use 4 a day with insulin Quantity: 2 Refills: 6 Harmeet Cochran MD Start : 23-Jun-2016 Active 100 Miscellaneous Box Start: 06-23-2016 Contour Next Sarah t In Vitro Strip Test blood sugars 5 times a day as directed Quantity: 2 Refills: 11 Jenni Euceda MD Start : 10-Oct-2018 Active 100 Strip Box Start: 10-10-2018 OneTouch Delica Lancets 33G TEST BLOOD SUGARS 5 TIMES A DAY AD DIRECTGED Quantity: 2 Refills: 11 Harmeet Cochran MD Start : 25-Oct-2016 Active 100 Miscellaneous Box Start: 10-25-2016 OneTouch Ultra B lue In Vitro Strip TEST FIVE TIMES DAILY DIRECTED Quantity: 200 Refills: 6 Harmeet Cochran MD Start : 11-Dec-2017 Active Start: 12-11-2017 Atif Microlet L ancets MISC Test blood sugars 5 times a day as directed Quantity: 2 Refills: 6 Jenni Euceda MD Start : 10-Oct-2018 Active 100 Unit Package Start: 10-10-2018 BD Pen Needle Na no U/F 32G X 4 MM Use 4 a day with insulin Quantity: 2 Refills: 6 Harmeet Cochran MD Start : 23-Jun-2016 Active 100 Miscellaneous Box Start: 06-23-2016 Contour Next Sarah t In Vitro Strip Test blood sugars 5 times a day as directed Quantity: 2 Refills: 11 Jenni Euceda MD Start : 10-Oct-2018 Active 100 Strip Box Start: 10-10-2018 OneTouch Delica Lancets 33G TEST BLOOD SUGARS 5 TIMES A DAY AD DIRECTGED Quantity: 2 Refills: 11 Harmeet Cochran MD Start : 25-Oct-2016 Active 100 Miscellaneous Box Start: 10-25-2016 OneTouch Ultra B lue In Vitro Strip TEST FIVE TIMES DAILY DIRECTED Quantity: 200 Refills: 6 Harmeet Cochran MD Start : 11-Dec-2017 Active Start: 12-11-2017 Atif Microlet L ancets MISC Test blood sugars 5 times a day as directed Quantity: 2 Refills: 6 Jenni Delcid MD Start : 10-Oct-2018 Active 100 Unit Package Start: 10-10-2018 Contour Next Sarah t In Vitro Strip Test blood sugars 5 times a day as directed Quantity: 2 Refills: 11 Jenni Delcid MD Start : 10-Oct-2018 Active 100 Strip Box Start: 10-10-2018 OneTouch Delica Lancets 33G TEST BLOOD SUGARS 5 TIMES A DAY AD DIRECTGED Quantity: 2 Refills: 11 Harmeet Cochran MD Start : 25-Oct-2016 Active 100 Miscellaneous Box Start: 10-25-2016 OneTouch Ultra I n Vitro Strip Test 4 times daily Quantity: 2 Refills: 6 Yanlei Edwards MD Start : 25-Oct-2016 Active 100 Strip Box Start: 10-25-2016 Test blood sugar s 5 times daily as directed [id number] Test 4 times daily [id number] Start: 10-25-2016 Use to inject 1- 4 times daily as directed. [id number] Start: 01-24-2024 End: 01-23-2025 Use to inject 1- 4 times daily as directed. [id number] Start: 01-24-2024 End: 01-24-2024 Goals Date Patient Goal Desired Activity /State Functional Status Date Assessment Result Facility NEGATED: Highlighted row Functional performance Functional status health issues are not documented Disease [facility] [address] [facility] Work Phone: Mental Status Date Assessment Result Facility NEGATED: Highlighted row Cognitive function [Interpretation] Cognitive status health issues are not documented Disease [facility] [address] [facility] Work Phone: Clinical Notes 04-01-2016 to 02-01-2024 Assessment & Plan Note - Sharan Ayoub MD - 02/01/2024 10:56 AM EDTAssessment & Plan Note - Sharan Ayoub MD - 02/01/2024 10:56 AM Dante Ayoub MD - 02/01/2024 9:30 AM EDT Note Date & Type Note Facility 02-01-2024 Evaluation + Plan note Associated Problem(s): Acute rejection of liver transplant (Multi) Why he developed ACR or chronic rejection is somewhat unclear The plan is to taper his prednisone by 10 mg every week to park it at 10 mg daily We will monitor liver function monthly We will see him every 2 months [facility] Work Phone: 02-01-2024 Miscellaneous Notes Associated Problem(s): Acute rejection of liver transplant (Multi) Why he developed ACR or chronic rejection is somewhat unclear The plan is to taper his prednisone by 10 mg every week to park it at 10 mg daily We will monitor liver function monthly We will see him every 2 months documented in this encounter [facility] Work Phone: 02-01-2024 History of Present illness Narrative Subjective He was directly admitted based on biopsy findings which suggested advanced fibrosis, features suggestive of acute and maybe chronic rejection. High dose pulse steroids did little to improve his liver enzyme elevation. Repeat biopsy suggests some improvement in acute rejection but persistence of some bile duct loss and chronic rejection. A more in depth review also suggests he may have F2/F3 fibrosis. He feels tired but has no pain and good appetite. He also feels bloated at times. Review of Systems Constitutional: Positive for fatigue. Negative for chills, fever and unexpected weight change. HENT: Negative for trouble swallowing. Respiratory: Negative for shortness of breath. Cardiovascular: Negative for chest pain. Gastrointestinal: Negative for abdominal distention, abdominal pain, anal bleeding, blood in stool, constipation, diarrhea, nausea, rectal pain and vomiting. Skin: Negative for color change. Physical Exam Constitutional: General: He is awake. Appearance: Normal appearance. HENT: Head: Normocephalic and atraumatic. Nose: Nose normal. Mouth/Throat: Mouth: Mucous membranes are moist. Eyes: Pupils: Pupils are equal, round, and reactive to light. Pulmonary: Effort: Pulmonary effort is normal. Neurological: Mental Status: He is alert and oriented to person, place, and time. Mental status is at baseline. Psychiatric: Attention and Perception: Attention and perception normal. Mood and Affect: Mood normal. Behavior: Behavior normal. LABS: Lab Results Component Value Date ALBUMIN 3.5 01/30/2024 BILITOT 2.4 01/30/2024 BILIDIR 1.1 (H) 01/24/2024 ALKPHOS 233 01/30/2024 ALT 218 01/30/2024 AST 127 01/30/2024 PROT 6.7 01/30/2024 MUNA NEGATIVE 08/15/2017 HEPBSAG NONREACTIVE 08/15/2017 HEPCAB NON-REACTIVE 08/15/2017 INR 1.2 (H) 01/24/2024 FERRITIN 164 08/15/2017 Lab Results Component Value Date ALBUMIN 3.5 01/30/2024 BILITOT 2.4 01/30/2024 BILIDIR 1.1 (H) 01/24/2024 ALKPHOS 233 01/30/2024 ALT 218 01/30/2024 AST 127 01/30/2024 PROT 6.7 01/30/2024 Lab Results Component Value Date GLUCOSE 345 01/30/2024 CALCIUM 9.4 01/30/2024 NA 137 01/30/2024 K 3.9 01/30/2024 CO2 29 01/30/2024 CL 102 01/30/2024 BUN 28 01/30/2024 CREATININE 0.95 01/30/2024 Lab Results Component Value Date WBC 11.1 01/30/2024 HGB 14.4 01/30/2024 HCT 43.5 01/30/2024 MCV 93 01/24/2024 PLT 152 01/30/2024 Lab Results Component Value Date INR 1.2 (H) 01/24/2024 Lab Results Component Value Date NA 137 01/30/2024 CREATININE 0.95 01/30/2024 BILITOT 2.4 01/30/2024 INR 1.2 (H) 01/24/2024 No results found for: AFP Lab Results Component Value Date FERRITIN 164 08/15/2017 Lab Results Component Value Date HEPCAB NON-REACTIVE 08/15/2017 Lab Results Component Value Date HEPBSAG NONREACTIVE 08/15/2017 No results found for: [id number] , [id number] === 01/18/24 === US LIVER WITH DOPPLER - Impression - 1. Trace amount of ascites. 2. Essentially normal Doppler evaluation. 3. Non-obstructing stones right kidney MACRO: None Signed by: Татьяна Eid 01/23/2024 12:57 PM Dictation workstation: [id number] Acute rejection of liver transplant (Multi) Why he developed ACR or chronic rejection is somewhat unclear The plan is to taper his prednisone by 10 mg every week to park it at 10 mg daily We will monitor liver function monthly We will see him every 2 months documented in this encounter [facility] Work Phone: 01-24-2024 Nurse Note 01/24/20241817 Discharge Note Patient discharged home with no needs. Discharge instructions discussed with patient, verbalized understanding. Aware of follow up appointments needed. Aware of changes to medications at discharge. Patient requested NPH insulin to be filled here at [facility] since it is late in day and may not be able to pickle sorter in time for AM dose. NPH filled at [facility] and picked up for patient and delivered to patient prior to discharge. Aware of other medications sent to patient's home preferred pharmacy. Peripheral IV discontinued. Belongings gathered per patient and mom. Refused transport and ambulated off unit at 1823. ---- Amirah Win RN [facility] 01-24-2024 Nurse Note 01/24/20241817 Discharge Note Patient discharged home with no needs. Discharge instructions discussed with patient, verbalized understanding. Aware of follow up appointments needed. Aware of changes to medications at discharge. Patient requested NPH insulin to be filled here at [facility] since it is late in day and may not be able to pickle sorter in time for AM dose. NPH filled at [facility] and picked up for patient and delivered to patient prior to discharge. Aware of other medications sent to patient's home preferred pharmacy. Peripheral IV discontinued. Belongings gathered per patient and mom. Refused transport and ambulated off unit at 1823. ---- Amirah Win RN documented in this encounter [facility] Work Phone: 01-24-2024 History of Present illness Narrative Luly Giron is a 28 y.o. male on day 6 of admission presenting with Acute rejection of liver transplant (Multi). Subjective POC FS reviewed. I have reviewed histories, allergies and medications have been reviewed and there are no changes Last Recorded Vitals Blood pressure 108/70, pulse 64, temperature 36.8 C (98.2 F), resp. rate 16, height 1.778 m (5' 10 ), weight 55.5 kg (122 lb 4.8 oz), SpO2 99%. Intake/Output last 3 Shifts: I/O last 3 completed shifts: In: 1010 (18.2 mL/kg) [P.O.:960; I.V.:50 (0.9 mL/kg)] Out: - (0 mL/kg) Weight: 55.5 kg Relevant Results Results from last 7 days Lab Units 01/24/24 1213 01/24/24 1137 01/24/24 0803 01/23/24 2040 01/23/24 1747 01/23/24 1207 01/23/24 1152 01/22/24 0816 01/22/24 0701 01/21/24 1146 01/21/24 1139 01/20/24 1158 01/20/24 1007 POCT GLUCOSE mg/dL 214* -- 258* 303* 337* -- 203* < > -- < > -- < > -- GLUCOSE mg/dL -- 231* -- -- -- 239* -- -- 336* -- 332* -- 241* < > = values in this interval not displayed. Current Facility-Administered Medications Medication Dose Route Frequency Provider Last Rate Last Admin acetaminophen (Tylenol) tablet 650 mg 650 mg oral q8h PRN Mya Dawson MD 650 mg at 01/23/242045 amLODIPine (Norvasc) tablet 5 mg 5 mg oral Daily Patti Darnell MD 5 mg at 01/24/24 0834 aspirin EC tablet 81 mg 81 mg oral Daily Patti Darnell MD 81 mg at 01/24/24 0834 dextrose 50 % injection 12.5 g 12.5 g intravenous q15 min PRN Patti Darnell MD dextrose 50 % injection 25 g 25 g intravenous q15 min PRN Patti Darnell MD enoxaparin (Lovenox) syringe 40 mg 40 mg subcutaneous Daily Mya Dawson MD 40 mg at 01/24/24 0834 glucagon (Glucagen) injection 1 mg 1 mg intramuscular q15 min PRN Patti Darnell MD glucagon (Glucagen) injection 1 mg 1 mg intramuscular q15 min PRN Patti Darnell MD insulin lispro (HumaLOG) injection 0-10 Units 0-10 Units subcutaneous TID with meals Mya Dawson MD 4 Units at 01/24/24 1331 insulin lispro (HumaLOG) refill for patient own pump 3 mL 3 mL pump - subcutaneous PRN Patti Darnell MD insulin NPH (Isophane) (HumuLIN N,NovoLIN N) injection 10 Units 10 Units subcutaneous q24h Mya Dawson MD 10 Units at 01/23/242035 insulin NPH (Isophane) (HumuLIN N,NovoLIN N) injection 15 Units 15 Units subcutaneous q24h Mya Dawson MD 15 Units at 01/24/24 0834 INSULIN PUMP- PATIENT SUPPLIED pump - subcutaneous Continuous Pump Patti Darnell MD lidocaine 4 % patch 1 patch 1 patch transdermal Daily Jay Rick MD 1 patch at 01/24/24 0836 mycophenolate (Cellcept) capsule 250 mg 250 mg oral q12h Patti Darenll MD 250 mg at 01/24/24 1217 ondansetron (Zofran) injection 4 mg 4 mg intravenous q4h PRN Sukumar Thomson MD oxyCODONE (Roxicodone) immediate release tablet 2.5 mg 2.5 mg oral q8h PRN Mya Dawson MD 2.5 mg at 01/23/24 1247 pantoprazole (ProtoNix) EC tablet 40 mg 40 mg oral Daily before breakfast Patti Darnell MD 40 mg at 01/24/24 0541 polyethylene glycol (Glycolax, Miralax) packet 17 g 17 g oral Daily PRN Patti Darnell MD predniSONE (Deltasone) tablet 60 mg 60 mg oral Daily Mya Dawson MD 60 mg at 01/24/24 0834 tacrolimus (Prograf) capsule 1 mg 1 mg oral 2 times per day Mya Dawson MD 1 mg at 01/24/24 1217 Assessment/Plan Principal Problem: Acute rejection of liver transplant (Multi) Luly Giron is a 28 years old male who is 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 We are consulted for management of hyperglycemia. 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 : Yaneli Myles (last visit with her in 2018) Now sees his PCP at [facility] Home regimen - medtronic 670 G pump Not wearing any CGM. Inpt steroid plan Steroids - takes 1 mg daily prednisone 3 day course IV methylprednisolone 01/17:500 mg day 1, 01/18: 250 mg day 2, 01/19: 250 mg day 3 01/20 and 01/21: IV MP 125 mg 01/22 PO prednisone 60 mg Diet - carb consistent Insulin pump settings while in patient: Time Basal rates CR ISF 00:00 - 00:00 0.5 U /Hr 1:9 1:40 Update: 01/24/24 Plan of discharge today with prednisone 60 mg daily until his follow up with transplant clinic. Recommendations : - NPH 20 units daily in AM with prednisone 60 mg dose No NPH in evening. - Pt. To continue his insulin pump - diabetic diet - follow up with PCP upon discharge , pt. Will need regimen adjustment with change in dose of prednisone. Patient discussed with attending - Dr. Gabino Hwang MD Associated attestation - Kamala Lloyd DO - 01/24/2024 4:48 PM EDT I saw and evaluated the patient. I personally obtained the stone and critical portions of the history and physical exam or was physically present for stone and critical portions performed by the resident/fellow. I reviewed the resident/fellow's documentation and discussed the patient with the resident/fellow. I agree with the resident/fellow's medical decision making as documented in the note. 28 year old with T1D on insulin pump (Medtronic 670G, no CGM use) with OLT admitted for rejection. He is being treated with steroids and per primary team, being discharged today on prednisone 60 mg daily. At discharge he can continue his insulin pump and NPH 20 units in the morning at the time of the prednisone. Pump settings were changed during hospitalization (ICR and ISF). Patient is aware that these will need to be changed back once he is off steroids. He follows with PCP and should have very close follow up with them to adjust pump settings as needed. I think he would greatly benefit from establishing with an printed circuit board preassembler outpatient. Kamala Lloyd DO Luly Giron is a 28 y.o. male on day 5 of admission presenting with Acute rejection of liver transplant (Multi). Subjective Today, pt. Underwent IR guided liver biopsy. He was NPO , so AM NPH dose was suggested to hold. Now, he is PO free after the procedure , received Prednisone 60 mg in AM (about 9:40 AM), We are suggesting to resume his insulin regimen. I have reviewed histories, allergies and medications have been reviewed and there are no changes Last Recorded Vitals Blood pressure 123/81, pulse 88, temperature 36.5 C (97.7 F), resp. rate 18, height 1.778 m (5' 10 ), weight 55.5 kg (122 lb 4.8 oz), SpO2 99%. Intake/Output last 3 Shifts: I/O last 3 completed shifts: In: 600 (10.8 mL/kg) [P.O.:600] Out: - (0 mL/kg) Weight: 55.5 kg Relevant Results Results from last 7 days Lab Units 01/23/24 1152 01/23/24 0917 01/23/24 0811 01/22/24 2100 01/22/24 1707 01/22/24 0816 01/22/24 0701 01/21/24 1146 01/21/24 1139 01/20/24 1158 01/20/24 1007 01/19/24 0757 01/19/24 0727 01/18/24 2122 POCT GLUCOSE mg/dL 203* 267* 248* 158* 381* < > -- < > -- < > -- < > -- -- GLUCOSE mg/dL -- -- -- -- -- -- 336* -- 332* -- 241* -- 262* 179* < > = values in this interval not displayed. Current Facility-Administered Medications Medication Dose Route Frequency Provider Last Rate Last Admin acetaminophen (Tylenol) tablet 650 mg 650 mg oral q8h PRN Mya Dawson MD amLODIPine (Norvasc) tablet 5 mg 5 mg oral Daily Patti Darnell MD 5 mg at 01/23/24 0956 aspirin EC tablet 81 mg 81 mg oral Daily Patti Darnell MD 81 mg at 01/23/24 0956 dextrose 50 % injection 12.5 g 12.5 g intravenous q15 min PRN Patti Darnell MD dextrose 50 % injection 25 g 25 g intravenous q15 min PRN Patti Darnell MD [Held by provider] enoxaparin (Lovenox) syringe 40 mg 40 mg subcutaneous Daily Patti Darnell MD 40 mg at 01/22/24 0846 glucagon (Glucagen) injection 1 mg 1 mg intramuscular q15 min PRN Patti Darnell MD glucagon (Glucagen) injection 1 mg 1 mg intramuscular q15 min PRN Patti Darnell MD insulin lispro (HumaLOG) injection 0-10 Units 0-10 Units subcutaneous TID with meals Mya Dawson MD 4 Units at 01/23/24 1210 insulin lispro (HumaLOG) refill for patient own pump 3 mL 3 mL pump - subcutaneous PRN Patti Darnell MD insulin NPH (Isophane) (HumuLIN N,NovoLIN N) injection 15 Units 15 Units subcutaneous Once yMa Dawson MD INSULIN PUMP- PATIENT SUPPLIED pump - subcutaneous Continuous Pump Patti Darnell MD lidocaine 4 % patch 1 patch 1 patch transdermal Daily Jay Rick MD 1 patch at 01/23/24 0959 mycophenolate (Cellcept) capsule 250 mg 250 mg oral q12h Patti Darnell MD 250 mg at 01/23/24 1210 ondansetron (Zofran) injection 4 mg 4 mg intravenous q4h PRN Sukumar Thomson MD oxyCODONE (Roxicodone) immediate release tablet 2.5 mg 2.5 mg oral q8h PRN Mya Dawson MD pantoprazole (ProtoNix) EC tablet 40 mg 40 mg oral Daily before breakfast Patti Darnell MD 40 mg at 01/23/24 0956 polyethylene glycol (Glycolax, Miralax) packet 17 g 17 g oral Daily PRN Patti Darnell MD predniSONE (Deltasone) tablet 60 mg 60 mg oral Daily Mya Dawson MD 60 mg at 01/23/24 0956 tacrolimus (Prograf) capsule 1 mg 1 mg oral 2 times per day Mya Dawson MD 1 mg at 01/23/24 1210 Assessment/Plan Principal Problem: Acute rejection of liver transplant (Multi) Luly Giron is a 28 years old male who is 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 We are consulted for management of hyperglycemia. 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 : Yaneli Myles (last visit with her in 2018) Now sees his PCP at [facility] regimen - medtronic 670G pump Accuchecks/ CGM - dexcom G7 Inpt steroid plan Steroids - takes 1 mg daily prednisone 3 day course IV methylprednisolone 01/17:500 mg day 1, 01/18: 250 mg day 2, 01/19: 250 mg day 3 01/20 and 01/21: IV MP 125 mg 01/22 PO prednisone 60 mg Diet - carb consistent Insulin pump settings while in patient: Time Basal rates CR ISF 00:00 - 00:00 0.5 U /Hr 1:9 1:40 Recommendations : - Okay to use insulin pump while inpt (forms signed ) - continue insulin NPH 15 units in AM with steroid dose - continue NPH 10 units in PM - continue insulin Lispro as sliding scale # 2 TID AC (added on as patient's BS was in high 300s depsite giving himself carb corrections ) - Pt is able to count carbs and enter into pump prior to meals - Accu-Cheks 3 times daily AC and nightly -Hypoglycemia protocol -Carb consistent diet (75 g) - Primary team to inform us in case of any dose adjustment of glucocorticoids Discharge follow up- He can follow up in [facility] with PCP Patient discussed with attending - Dr. Nancy Hwang MD I saw and evaluated the patient. I personally obtained the stone and critical portions of the history and physical exam or was physically present for stone and critical portions performed by the resident/fellow. I reviewed the resident/fellow's documentation and discussed the patient with the resident/fellow. I agree with the resident/fellow's medical decision making as documented in the note. Kvng Cruz MD Luly Giron is a 28 y.o. male on day 5 of admission presenting with Acute rejection of liver transplant (Multi). Subjective NAEON. Had some R shoulder pain overnight, was ordered lidocaine patch but fell asleep prior to administration. Also described new sensation of fullness in his RUQ, almost more aware of his liver and described it feeling bigger. Both of these symptoms are new and began over the last 5-7 days, contrast to the intermittent RUQ pain which has been going on for months. No fever, chills, lightheadedness, fatigue, chest pain, SOB, nausea. Medications Scheduled medications amLODIPine, 5 mg, oral, Daily aspirin, 81 mg, oral, Daily [Held by provider] enoxaparin, 40 mg, subcutaneous, Daily [Held by provider] insulin lispro, 0-10 Units, subcutaneous, TID with meals Insulin, , pump - subcutaneous, Continuous Pump lidocaine, 1 patch, transdermal, Daily mycophenolate, 250 mg, oral, q12h pantoprazole, 40 mg, oral, Daily before breakfast predniSONE, 60 mg, oral, Daily tacrolimus, 1 mg, oral, 2 times per day Continuous medications PRN medications PRN medications: dextrose, dextrose, glucagon, glucagon, insulin lispro, ondansetron, polyethylene glycol Objective Last Recorded Vitals BP 124/74 Pulse 67 Temp 36.6 C (97.9 F) Resp 18 Wt 55.5 kg (122 lb 4.8 oz) SpO2 98% Intake/Output last 3 Shifts: Intake/Output Summary (Last 24 hours) at 01/23/2024 0713 Last data filed at 01/22/2024 1230 Gross per 24 hour Intake 600 ml Output -- Net 600 ml Admission Weight Weight: 55.5 kg (122 lb 5.7 oz) (01/19/24 1306) Daily Weight 01/19/24 : 55.5 kg (122 lb 4.8 oz) Physical Exam: Constitutional: No acute distress, resting comfortably in bed HEENT: Sclera anicteric Cardiovascular: RRR, normal S1/S2, no murmurs noted Pulmonary: Clear to auscultation b/l, no wheezes/crackles/rhonchi, no increased work of breathing GI: Soft, minimal tenderness RUQ, non distended Lower extremities: Warm and well perfused, no lower extremity edema Neuro: A&O x3, able to move all 4 extremities spontaneously Psych: Appropriate mood and affect Labs Results from last 7 days Lab Units 01/22/24 0701 01/21/24 1139 01/20/24100601/19/24 0701/18/242 WBC AUTO x10*3/uL 7.5 20.4* 24.3* 2.6* 5.2 HEMOGLOBIN g/dL 13.4* 14.2 13.5 13.6 11.5* HEMATOCRIT % 42.1 42.6 40.3* 41.4 34.7* PLATELETS AUTO x10*3/uL 134* 223 194 123* 109* Results from last 7 days Lab Units 01/22/24 0701 01/21/24 1139 01/20/24100601/19/24 0701/18/242 SODIUM mmol/L 138 135* 134* 136 139 POTASSIUM mmol/L 4.4 4.2 4.0 4.6 3.6 CHLORIDE mmol/L 102 101 100 101 102 CO2 mmol/L 26 24 25 27 32 BUN mg/dL 38* 35* 27* 19 19 CREATININE mg/dL 0.97 1.14 0.96 0.88 0.91 CALCIUM mg/dL 9.1 9.3 9.3 8.8 8.8 MAGNESIUM mg/dL 1.83 1.57* 1.95 2.27 1.49* Results from last 7 days Lab Units 01/22/24 0701 01/21/24 1139 01/20/24100601/19/24 0701/18/242121 ALK PHOS U/L 195* 227* 251* 271* 233* BILIRUBIN TOTAL mg/dL 1.7* 2.0* 1.9* 2.3* 2.0* BILIRUBIN DIRECT mg/dL 0.9* 1.0* 0.9* 1.2* -- PROTEIN TOTAL g/dL 6.7 7.3 7.2 7.0 6.5 ALT U/L 96* 95* 78* 83* 78* AST U/L 87* 88* 68* 84* 90* Results from last 7 days Lab Units 01/21/24 1139 01/20/24100601/19/24 0701/18/242121 APTT seconds -- -- 30 30 INR 1.3* 1.2* 1.2* 1.2* EBV, CMV negative Imaging US guided needle liver biopsy (Results Pending) Assessment/Plan Principal Problem: Acute rejection of liver transplant (Multi) Nithin Giron is a 28 yo M w/ a PMHx of T1DM, HTN, and AIH s/p OLT 04/2016 c/b mild rejection on 01/16 biopsy after months of elevated LFTs. Now s/p 5d methylprednisolone course and on PO steroids, with repeat liver biopsy 01/21. Path is pending. Updates 01/22: - US guided liver biopsy with IR today. In light of more acute R shoulder pain and RUQ fullness, will ask to perform RUQ US to rule out hematoma given multiple biopsies over the last few months, though unlikely. 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 - Doppler Liver US 01/02 with normal doppler, slightly nodular contour and increased echogenicity. Mild splenomegaly. Very mild perihepatic ascites - Developed fatigue, low appetite, weight loss, nausea, intermittent RUQ pain last few months with elevated LFTs ALP 242, ALT 81, AST 93, Tbili 2.7 (01/03). Underwent biopsy 01/16 c/w late ACR with sinusoidal and hepatic patterns of injury, COULTER 01/08. Stage 3 fibrosis. C4d immunostain is negative. CK7 highlights bile ducts and cholestatic hepatocytes. CK19 highlights bile ducts. Based on H&E, CK7 and CK19 stains, the bile duct is present in 9 out of 11 recognizable portal tracts. - EBV, CMV neg, UA without c/f UTI, Blood cx NGTD - S/p 5d methylprednisolone course, with 500mg day 1, 250mg days 2 and 3, 125mg days 4 and 5 [] Starting 60mg PO Prednisone today [] Fu biopsy results [] Zofran prn [] Tacro to 1mg BID (home 12am-12pm dosing), continue home prednisone 1mg daily, MMF 250mg BID [] Daily tac levels, labs at 11:30am. Will tailor tacrolimus and steroids pending lab results #T1DM - On insulin pump at home - Endocrinology consulted, appreciate recs. Adjusting pump settings [] Fu Endocrine recs, adjusting NPH prior to steroid dose with patient counting carbs and managing pump prior to meals [] Held morning NPH as pt was NPO F: PRN E: PRN N: diabetic diet post procedure GI: PO pantoprazole DVT ppx: Lovenox, will resume post procedure pending US results Code status: Full code (confirmed on admission) NOK: Candis (mother) [phone] Mya Dawson MD Internal Medicine, PGY-1 Associated attestation - Olivia Castaneda MD - 01/23/2024 5:50 PM EDT Attending addendum: I saw and evaluated the patient. I personally obtained the critical portions of the history and physical exam. The case was discussed in detail with the fellow; including, but not limited to the chief complaint, HPI, past history, physical findings, labs and radiological findings. I agree with the fellow's medical decision making as documented in the fellow's note. The patient was counseled on the possible differential diagnoses and testing needed to arrive at a diagnosis or a treatment plan. The patient was discussed with the multidisciplinary liver transplant team. The patient did report some fullness in the right upper quadrant as well as some right shoulder pain overnight. These are relatively mild in intensity. He completed his final dose of IV Solu-Medrol 125 mg last night. His labs are essentially unchanged. It is possible that the LFTs have not improved despite the steroids due to severe hyperglycemia with some glycogen deposition in the liver. He will be getting a repeat liver biopsy today so that we can make further decisions about treatment and the discharge plan. We will ask the radiologist to do an ultrasound to make sure that there is no specific etiology for the fullness in the right upper quadrant and the shoulder pain. It is possible that he could have had some bleeding from the previous biopsy. This could also be some degree of hepatomegaly from glycogen in the liver due to the hyperglycemia. Olivia Castaneda MD, [facility] [place] Machine Guide Base Winder, Hepatology Senior Attending Physician [facility] [place] financial coordinator Division of Gastroenterology and Liver Disease [facility] [employer] [facility] [address] [place] [phone] Luly Giron is a 28 y.o. male on day 4 of admission presenting with Acute rejection of liver transplant (Multi). Subjective Pt. Seen on bed side. He is alert / oriented , in no acute distress. Denies nausea , vomiting or abdominal pain. Has good appetite. I have reviewed histories, allergies and medications have been reviewed and there are no changes Last Recorded Vitals Blood pressure 118/71, pulse 72, temperature 36.7 C (98.1 F), resp. rate 18, height 1.778 m (5' 10 ), weight 55.5 kg (122 lb 4.8 oz), SpO2 98%. Intake/Output last 3 Shifts: I/O last 3 completed shifts: In: 824 (14.9 mL/kg) [P.O.:720; IV Piggyback:104] Out: - (0 mL/kg) Weight: 55.5 kg Relevant Results Results from last 7 days Lab Units 01/22/24 1207 01/22/24 0816 01/22/24 0701 01/21/24 2021 01/21/24 1725 01/21/24 1146 01/21/24 1139 01/20/24 1158 01/20/24 1007 01/19/24 0757 01/19/24 0727 01/18/24 2122 POCT GLUCOSE mg/dL 468* 325* -- 195* 236* 286* -- < > -- < > -- -- GLUCOSE mg/dL -- -- 336* -- -- -- 332* -- 241* -- 262* 179* < > = values in this interval not displayed. Current Facility-Administered Medications Medication Dose Route Frequency Provider Last Rate Last Admin amLODIPine (Norvasc) tablet 5 mg 5 mg oral Daily Patti Darnell MD 5 mg at 01/22/24 0856 aspirin EC tablet 81 mg 81 mg oral Daily Patti Darnell MD 81 mg at 01/22/24 0851 dextrose 50 % injection 12.5 g 12.5 g intravenous q15 min PRN Patti Darnell MD dextrose 50 % injection 25 g 25 g intravenous q15 min PRN Patti Darnell MD [Held by provider] enoxaparin (Lovenox) syringe 40 mg 40 mg subcutaneous Daily Patti Darnell MD 40 mg at 01/22/24 0846 glucagon (Glucagen) injection 1 mg 1 mg intramuscular q15 min PRN Patti Darnell MD glucagon (Glucagen) injection 1 mg 1 mg intramuscular q15 min PRN Patti Darnell MD insulin lispro (HumaLOG) injection 0-10 Units 0-10 Units subcutaneous TID with meals Monserrat Estrada MD 8 Units at 01/22/24 0853 insulin lispro (HumaLOG) refill for patient own pump 3 mL 3 mL pump - subcutaneous PRN Patti Darnell MD insulin NPH (Isophane) (HumuLIN N,NovoLIN N) injection 10 Units 10 Units subcutaneous Once Mya Dawson MD insulin NPH (Isophane) (HumuLIN N,NovoLIN N) injection 10 Units 10 Units subcutaneous Once Mya Dawson MD INSULIN PUMP- PATIENT SUPPLIED pump - subcutaneous Continuous Pump Patti Darnell MD methylPREDNISolone sod succinate (SOLU-Medrol) injection 125 mg 125 mg intravenous Once per day on Monday Mya Dawson MD 125 mg at 01/21/24 2140 mycophenolate (Cellcept) capsule 250 mg 250 mg oral q12h Patti Darnell MD 250 mg at 01/22/24 1217 ondansetron (Zofran) injection 4 mg 4 mg intravenous q4h PRN Sukumar Thomson MD pantoprazole (ProtoNix) EC tablet 40 mg 40 mg oral Daily before breakfast Patti Darnell MD 40 mg at 01/22/24 0851 polyethylene glycol (Glycolax, Miralax) packet 17 g 17 g oral Daily PRN Patti Darnell MD [START ON 01/23/2024] predniSONE (Deltasone) tablet 60 mg 60 mg oral Daily Mya Dawson MD tacrolimus (Prograf) capsule 1 mg 1 mg oral 2 times per day Mya Dawson MD 1 mg at 01/22/24 1217 Home settings of insulin pump: Time Basal rates CR ISF 00:00 - 00:00 0.5 U /Hr 1:12 1:50 Assessment/Plan Principal Problem: Acute rejection of liver transplant (Multi) Luly Giron is a 28 years old male who is 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 We are consulted for management of hyperglycemia. 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 : Yaneli Myles (last visit with her in 2019) [facility] regimen - medtronic 670G pump Accuchecks/ CGM - dexcom G7 Inpt steroid plan Steroids - takes 1 mg daily prednisone 3 day course IV methylprednisolone 01/17:500 mg day 1, 01/18: 250 mg day 2, 01/19: 250 mg day 3 01/20 and 01/21: IV MP 125 mg 01/22 PO prednisone 60 mg Diet - carb consistent Insulin pump settings while in patient: Time Basal rates CR ISF 00:00 - 00:00 0.5 U /Hr 1:9 1:40 01/22/2024: update - Today, suggested to give additional 10 units of insulin NPH in the afternoon as he is hyperglycemic. - Tomorrow the plan of liver biopsy - 01/23/24 Recommendations while PO free - Okay to use insulin pump while inpt (forms signed ) - continue insulin NPH 15 units in AM - continue insulin NPH 10 units in PM with steroid dose - continue insulin Lispro as sliding scale # 2 TID AC (added on as patient's BS was in high 300s depsite giving himself carb corrections ) Recommendations while NPO: - Hold AM NPH dose tomorrow - Hold insulin Lispro SS tomorrow while he is NPO - Continue insulin pump - Pt is able to count carbs and enter into pump prior to meals - Accu-Cheks 3 times daily AC and nightly -Hypoglycemia protocol -Carb consistent diet (75 g) Discharge follow up- He can follow up in [facility] with PCP Patient discussed with attending - Dr. Nancy Hwang MD Associated attestation - Kvng Cruz MD - 01/22/2024 4:08 PM EDT I saw and evaluated the patient. I personally obtained the stone and critical portions of the history and physical exam or was physically present for stone and critical portions performed by the resident/fellow. I reviewed the resident/fellow's documentation and discussed the patient with the resident/fellow. I agree with the resident/fellow's medical decision making as documented in the note. Transitional Care Coordination Progress Note: Patient discussed during interdisciplinary rounds. Team members present: MD, TCC Plan per Medical/Surgical team: Plan for liver biopsy tomorrow. Payer: Generic [employer] Status: Inpatient Discharge disposition: Home Potential Barriers: none ADOD: 01/22 versus 01/23 content coordinator will continue to follow for discharge planning needs. Kapil العلي RN Transitional Travel Coordinator/TCC [id number] Luly Giron is a 28 y.o. male on day 4 of admission presenting with Acute rejection of liver transplant (Multi). Subjective NAEON. Had some RUQ abdominal pain overnight, well controlled with Oxy 2.5mg. Pain has been intermittent and present for months, current presentation unchanged from previous. No nausea, vomiting, chest pain, SOB. Feeling well. Medications Scheduled medications amLODIPine, 5 mg, oral, Daily aspirin, 81 mg, oral, Daily enoxaparin, 40 mg, subcutaneous, Daily insulin lispro, 0-10 Units, subcutaneous, TID with meals insulin NPH (Isophane), 15 Units, subcutaneous, q AM Insulin, , pump - subcutaneous, Continuous Pump methylPREDNISolone sodium succinate (PF), 125 mg, intravenous, Once per day on Monday mycophenolate, 250 mg, oral, q12h pantoprazole, 40 mg, oral, Daily before breakfast tacrolimus, 1 mg, oral, 2 times per day Continuous medications PRN medications PRN medications: dextrose, dextrose, glucagon, glucagon, insulin lispro, ondansetron, polyethylene glycol Objective Last Recorded Vitals BP 108/57 Pulse 59 Temp 36.6 C (97.9 F) Resp 18 Wt 55.5 kg (122 lb 4.8 oz) SpO2 98% Intake/Output last 3 Shifts: Intake/Output Summary (Last 24 hours) at 01/22/2024 0805 Last data filed at 01/21/2024 1600 Gross per 24 hour Intake 240 ml Output -- Net 240 ml Admission Weight Weight: 55.5 kg (122 lb 5.7 oz) (01/19/24 1306) Daily Weight 01/19/24 : 55.5 kg (122 lb 4.8 oz) Physical Exam: Constitutional: No acute distress, resting comfortably in bed HEENT: Sclera anicteric Cardiovascular: RRR, normal S1/S2, no murmurs noted Pulmonary: Clear to auscultation b/l, no wheezes/crackles/rhonchi, no increased work of breathing GI: Soft, minimal tenderness RUQ, non distended Lower extremities: Warm and well perfused, no lower extremity edema Neuro: A&O x3, able to move all 4 extremities spontaneously Psych: Appropriate mood and affect Labs Results from last 7 days Lab Units 01/21/24 11301/20/24100601/19/2472601/18/242121 WBC AUTO x10*3/uL 20.4* 24.3* 2.6* 5.2 HEMOGLOBIN g/dL 14.2 13.5 13.6 11.5* HEMATOCRIT % 42.6 40.3* 41.4 34.7* PLATELETS AUTO x10*3/uL 223 194 123* 109* Results from last 7 days Lab Units 01/21/24113801/20/24100601/19/2472601/18/242121 SODIUM mmol/L 135* 134* 136 139 POTASSIUM mmol/L 4.2 4.0 4.6 3.6 CHLORIDE mmol/L 101 100 101 102 CO2 mmol/L 24 25 27 32 BUN mg/dL 35* 27* 19 19 CREATININE mg/dL 1.14 0.96 0.88 0.91 CALCIUM mg/dL 9.3 9.3 8.8 8.8 MAGNESIUM mg/dL 1.57* 1.95 2.27 1.49* Results from last 7 days Lab Units 01/21/24113801/20/24100601/19/2472601/18/242121 ALK PHOS U/L 227* 251* 271* 233* BILIRUBIN TOTAL mg/dL 2.0* 1.9* 2.3* 2.0* BILIRUBIN DIRECT mg/dL 1.0* 0.9* 1.2* -- PROTEIN TOTAL g/dL 7.3 7.2 7.0 6.5 ALT U/L 95* 78* 83* 78* AST U/L 88* 68* 84* 90* Results from last 7 days Lab Units 01/21/24 11301/20/24100601/19/2472601/18/242121 APTT seconds -- -- 30 30 INR 1.3* 1.2* 1.2* 1.2* EBV, CMV negative Imaging Consult to Interventional Radiology (Results Pending) Assessment/Plan Principal Problem: Acute rejection of liver transplant (Multi) Nithin Giron is a 28 yo M w/ a PMHx of T1DM, HTN, and AIH s/p OLT 04/2016 c/b mild rejection on 01/16 biopsy after months of elevated LFTs. Now on methylprednisolone and increased tacrolimus dose, monitoring response and potential repeat biopsy on Monday. 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 - Doppler Liver US 01/02 with normal doppler, slightly nodular contour and increased echogenicity. Mild splenomegaly - Developed fatigue, low appetite, weight loss, nausea, intermittent RUQ pain last few months with elevated LFTs ALP 242, ALT 81, AST 93, Tbili 2.7 (01/03). Underwent biopsy 01/16 c/w late ACR with sinusoidal and hepatic patterns of injury, COULTER 01/08. Stage 3 fibrosis - EBV, CMV neg, UA without c/f UTI, Blood cx NGTD [] Fu CK7, CK19, C4d immunostains to evaluate for loss of bile duct and antibody mediated rejection [] 5d methylprednisolone course, with 500mg day 1, 250mg days 2 and 3, 125mg days 4 and 5 followed by 60mg PO prednisone [] Repeat biopsy tentatively planned for Monday 01/22, will hold lovenox and make NPO at [place] [] PO PPI [] Zofran prn [] Tacro to 1mg BID (home 12am-12pm dosing), continue home prednisone 1mg daily, MMF 250mg BID [] Daily tac levels at 11:30am, LFTs. Will tailor tacrolimus and steroids pending lab results #T1DM - On insulin pump at home - Endocrinology consulted, appreciate recs. Adjusting pump settings [] Fu Endocrine recs, adjusting NPH prior to steroid dose with patient counting carbs and managing pump prior to meals F: PRN E: PRN N: diabetic diet, NPO at CO GI: PO pantoprazole DVT ppx: Lovenox, held Code status: Full code (confirmed on admission) NOK: Candis (mother) [phone] Associated attestation - Olivia Castaneda MD - 01/22/2024 2:29 PM EDT Attending addendum: I saw and evaluated the patient. I personally obtained the critical portions of the history and physical exam. The case was discussed in detail with the fellow; including, but not limited to the chief complaint, HPI, past history, physical findings, labs and radiological findings. I agree with the fellow's medical decision making as documented in the fellow's note. The patient was counseled on the possible differential diagnoses and testing needed to arrive at a diagnosis or a treatment plan. The patient was discussed with the multidisciplinary liver transplant team. The patient had no particular issues overnight. He is being seen by endocrinology who is making adjustments in his medications due to the hyperglycemia from the steroids. His liver enzymes still remain somewhat elevated. This could possibly be from some of the hyperglycemia giving more fatty liver. He will complete his final dose of IV Solu-Medrol 125 mg tonight. As per the plan yesterday, we will repeat liver biopsy tomorrow and then make further recommendations based on that. We will likely transition him to oral steroids tomorrow. Olivia Castaneda MD, FAASLD, [facility] Machine Guide Base Winder, Hepatology Senior Attending Physician [facility] [place] financial coordinator Division of Gastroenterology and Liver Disease [facility] [address] [place] [phone] Luly Giron is a 28 y.o. male on day 3 of admission presenting with Acute rejection of liver transplant (Multi). Subjective NAEON. Feels well today Medications Scheduled medications amLODIPine, 5 mg, oral, Daily aspirin, 81 mg, oral, Daily enoxaparin, 40 mg, subcutaneous, Daily insulin lispro, 0-10 Units, subcutaneous, TID with meals insulin NPH (Isophane), 10 Units, subcutaneous, Once [START ON 01/22/2024] insulin NPH (Isophane), 15 Units, subcutaneous, q AM Insulin, , pump - subcutaneous, Continuous Pump methylPREDNISolone sodium succinate (PF), 125 mg, intravenous, Once per day on Monday mycophenolate, 250 mg, oral, q12h pantoprazole, 40 mg, oral, Daily before breakfast tacrolimus, 1 mg, oral, 2 times per day Continuous medications PRN medications PRN medications: dextrose, dextrose, glucagon, glucagon, insulin lispro, ondansetron, polyethylene glycol Objective Last Recorded Vitals BP 110/67 (BP Location: Right arm, Patient Position: Lying) Pulse 72 Temp 36.8 C (98.2 F) (Temporal) Resp 20 Wt 55.5 kg (122 lb 4.8 oz) SpO2 98% Intake/Output last 3 Shifts: Intake/Output Summary (Last 24 hours) at 01/21/2024 1319 Last data filed at 01/21/2024 0500 Gross per 24 hour Intake 584 ml Output -- Net 584 ml Admission Weight Weight: 55.5 kg (122 lb 5.7 oz) (01/19/24 1306) Daily Weight 01/19/24 : 55.5 kg (122 lb 4.8 oz) Physical Exam: Constitutional: No acute distress, resting comfortably in bed HEENT: Sclera anicteric Cardiovascular: RRR, normal S1/S2, no murmurs noted Pulmonary: Clear to auscultation b/l, no wheezes/crackles/rhonchi, no increased work of breathing GI: Soft, nontender, non distended Lower extremities: Warm and well perfused, no lower extremity edema Neuro: A&O x3, able to move all 4 extremities spontaneously Psych: Appropriate mood and affect Labs Results from last 7 days Lab Units 01/21/24 11301/20/24100601/19/2472601/18/242121 WBC AUTO x10*3/uL 20.4* 24.3* 2.6* 5.2 HEMOGLOBIN g/dL 14.2 13.5 13.6 11.5* HEMATOCRIT % 42.6 40.3* 41.4 34.7* PLATELETS AUTO x10*3/uL 223 194 123* 109* Results from last 7 days Lab Units 01/21/24 11301/20/24100601/19/2472601/18/242121 SODIUM mmol/L 135* 134* 136 139 POTASSIUM mmol/L 4.2 4.0 4.6 3.6 CHLORIDE mmol/L 101 100 101 102 CO2 mmol/L 24 25 27 32 BUN mg/dL 35* 27* 19 19 CREATININE mg/dL 1.14 0.96 0.88 0.91 CALCIUM mg/dL 9.3 9.3 8.8 8.8 MAGNESIUM mg/dL 1.57* 1.95 2.27 1.49* Results from last 7 days Lab Units 01/21/24 11301/20/24100601/19/2472601/18/242121 ALK PHOS U/L 227* 251* 271* 233* BILIRUBIN TOTAL mg/dL 2.0* 1.9* 2.3* 2.0* BILIRUBIN DIRECT mg/dL 1.0* 0.9* 1.2* -- PROTEIN TOTAL g/dL 7.3 7.2 7.0 6.5 ALT U/L 95* 78* 83* 78* AST U/L 88* 68* 84* 90* Results from last 7 days Lab Units 01/21/24 11301/20/24100601/19/2472601/18/242121 APTT seconds -- -- 30 30 INR 1.3* 1.2* 1.2* 1.2* EBV, CMV negative Imaging Consult to Interventional Radiology (Results Pending) Assessment/Plan Principal Problem: Acute rejection of liver transplant (Multi) Nithin Giron is a 28 yo M w/ a PMHx of T1DM, HTN, and AIH s/p OLT 04/2016 c/b mild rejection on 01/16 biopsy after months of elevated LFTs. Now on methylprednisolone and increased tacrolimus dose, monitoring response and potential repeat biopsy on Monday. 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 - Doppler Liver US 01/02 with normal doppler, slightly nodular contour and increased echogenicity. Mild splenomegaly - Developed fatigue, low appetite, weight loss, nausea, intermittent RUQ pain last few months with elevated LFTs ALP 242, ALT 81, AST 93, Tbili 2.7 (01/03). Underwent biopsy 01/16 c/w late ACR with sinusoidal and hepatic patterns of injury, COULTER 01/08. Stage 3 fibrosis - EBV, CMV neg, UA without c/f UTI, Blood cx NGTD [] Fu CK7, CK19, C4d immunostains to evaluate for loss of bile duct and antibody mediated rejection [] 5d methylprednisolone course, with 500mg day 1, 250mg days 2 and 3, 125mg days 4 and 5 followed by 60mg PO prednisone [] Repeat biopsy tentatively planned for Sunday 01/21 [] PO PPI [] Zofran prn [] Tacro to 1mg BID (home 12am-12pm dosing), continue home prednisone 1mg daily, MMF 250mg BID [] Daily tac levels at 11:30am, LFTs. Will tailor tacrolimus and steroids pending lab results #T1DM - On insulin pump at home - Endocrinology consulted, appreciate recs. Adjusting pump settings [] Fu Endocrine recs F: PRN E: PRN N: diabetic diet GI: PO pantoprazole DVT ppx: Lovenox Code status: Full code (confirmed on admission) NOK: Candis (mother) [phone] Associated attestation - Olivia Castaneda MD - 01/21/2024 5:04 PM EDT Attending addendum: I saw and evaluated the patient. I personally obtained the critical portions of the history and physical exam. The case was discussed in detail with the fellow; including, but not limited to the chief complaint, HPI, past history, physical findings, labs and radiological findings. I agree with the fellow's medical decision making as documented in the fellow's note. The patient was counseled on the possible differential diagnoses and testing needed to arrive at a diagnosis or a treatment plan. The patient had no issues or complaints overnight. He will receive Solu-Medrol 125 mg today and tomorrow. After that, we would plan on switching him to oral high-dose prednisone. His liver enzymes have not changed significantly. He remains on Prograf 1 mg twice daily. I did communicate with his primary clinic [facility] who wanted a repeat liver biopsy within the next couple of days. He is concerned as to make sure that the rejection has improved with the steroids and to confirm whether he really has stage 3 fibrosis or not. We will go ahead and arrange the biopsy. Olivia Castaneda MD, FAASLD, [facility] Machine Guide Base Winder, Hepatology Senior Attending Physician [facility] [place] financial coordinator Division of Gastroenterology and Liver Disease [facility] [address] [place] [phone] Luly Giron is a 28 y.o. male on day 2 of admission presenting with Acute rejection of liver transplant (Multi). Subjective Pt ate breakfast and lunch with no issues. He had some confusion about whether he should be entering his carbs on the pump. I have reviewed histories, allergies and medications have been reviewed and there are no changes Objective Review of Systems Physical Exam Constitutional: NAD, well groomed. AOx3. Cooperative Skin/Hair: Warm, dry skin. Dexcom and medtronic in place on thigh HEENT: EOMI, Anicteric scleras Neck: Soft, supple Cardiovascular: normal HR Respiratory: no increased wob, accessory muscle use. Abdomen - soft , nondistended Psych : appropriate affect Last Recorded Vitals Blood pressure 119/70, pulse 76, temperature 36.5 C (97.7 F), temperature source Temporal, resp. rate 16, height 1.778 m (5' 10 ), weight 55.5 kg (122 lb 4.8 oz), SpO2 98%. Intake/Output last 3 Shifts: I/O last 3 completed shifts: In: 680 (12.3 mL/kg) [P.O.:480; I.V.:100 (1.8 mL/kg); IV Piggyback:100] Out: - (0 mL/kg) Weight: 55.5 kg Relevant Results Results from last 7 days Lab Units 01/20/24 0821 01/19/24 2351 01/19/24201901/19/24 1842 01/19/24 1703 01/19/24 0757 01/19/24 0727 01/18/24 2122 POCT GLUCOSE mg/dL 168* 248* 282* 349* 312* < > -- -- GLUCOSE mg/dL -- -- -- -- -- -- 262* 179* < > = values in this interval not displayed. Lab Results Component Value Date HGBA1C 6.4 (H) 01/19/2024 HGBA1C 6.8 08/21/2017 HGBA1C 6.2 08/18/2017 NA 136 01/19/2024 K 4.6 01/19/2024 CL 101 01/19/2024 CO2 27 01/19/2024 BUN 19 01/19/2024 CREATININE 0.88 01/19/2024 CALCIUM 8.8 01/19/2024 ALBUMIN 3.1 (L) 01/19/2024 PROT 7.0 01/19/2024 BILITOT 2.3 (H) 01/19/2024 ALKPHOS 271 (H) 01/19/2024 ALT 83 (H) 01/19/2024 AST 84 (H) 01/19/2024 GLUCOSE 262 (H) 01/19/2024 [id number] 0.09 (H) 08/18/2017 Assessment/Plan Principal Problem: Acute rejection of liver transplant (Multi) Luly Giron is a 28 y.o. 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 We are being consulted for dm management . 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 : seeing pcp at [facility] per pt DM Home meds- medtronic 670G pump Accuchecks/ CGM - dexcom G7 Inpt steroid plan Steroids - takes 1 mg daily prednisone 3 day course IV methylprednisolone 01/17:500 mg day 1, 01/18: 250 mg day 2, 01/19: 250 mg day 3 01/20 and 01/21: IV MP 125 mg 01/22 PO prednisone 60 mg Diet - carb consistent Recommendations - Okay to use pump while inpt, forms signed - Give 15 units NPH this afternoon , from tomorrow we will schedule NPH 15 AT 9 AM (for nutritional coverage) - nph 10 units 30 min before IV MP 250 dose tonight - Lispro #2 sliding scale TIDAC (added on as patient BS in high 300s depsite giving himself carb corrections ) Insulin pump settings changed as follows Basal rates: 0000 - 0000: 0.5 Carbohydrate ratio: 0000 - 0000: 12-->9 Insulin sensitivity: 0000 - 0000: 50-->40 - Pt is able to count carbs and enter into pump prior to meals - Accu-Cheks 3 times daily AC and nightly -Hypoglycemia protocol -Carb consistent diet (75 g) Discharge follow up- He can follow up in [facility] with PCP Monserrat Estrada MD Endocrinology, PGY 5 Pager [phone] or secure chat Associated attestation - Quentin Buckley MD PhD - 01/20/2024 10:31 PM EDT I saw and evaluated the patient. I personally obtained the stone and critical portions of the history and physical exam or was physically present for stone and critical portions performed by the resident/fellow. I reviewed the resident/fellow's documentation and discussed the patient with the resident/fellow. I agree with the resident/fellow's medical decision making as documented in the note. Luly Giron is a 28 y.o. male on day 2 of admission presenting with Acute rejection of liver transplant (Multi). Subjective Had some abdominal pain yesterday evening and night, moving from R to L across his abdomen. This morning, passed a kidney stone. Reportedly gets a kidney stone every few months, and this was the typical presentation. No blood or pain with urination. 10 point ROS performed and negative unless stated above. Medications Scheduled medications amLODIPine, 5 mg, oral, Daily aspirin, 81 mg, oral, Daily enoxaparin, 40 mg, subcutaneous, Daily insulin lispro, 0-10 Units, subcutaneous, TID with meals Insulin, , pump - subcutaneous, Continuous Pump [START ON 01/21/2024] methylPREDNISolone sodium succinate (PF), 125 mg, intravenous, Once per day on Monday methylPREDNISolone sodium succinate (PF), 250 mg, intravenous, Once mycophenolate, 250 mg, oral, q12h pantoprazole, 40 mg, oral, Daily before breakfast [Held by provider] predniSONE, 1 mg, oral, Daily tacrolimus, 1 mg, oral, 2 times per day Continuous medications PRN medications PRN medications: dextrose, dextrose, glucagon, glucagon, insulin lispro, ondansetron, polyethylene glycol Objective Last Recorded Vitals BP 119/70 Pulse 76 Temp 36.5 C (97.7 F) (Temporal) Resp 16 Wt 55.5 kg (122 lb 4.8 oz) SpO2 98% Intake/Output last 3 Shifts: Intake/Output Summary (Last 24 hours) at 01/20/2024 0657 Last data filed at 01/20/2024 0600 Gross per 24 hour Intake 580 ml Output -- Net 580 ml Admission Weight Weight: 55.5 kg (122 lb 5.7 oz) (01/19/24 1306) Daily Weight 01/19/24 : 55.5 kg (122 lb 4.8 oz) Physical Exam: Constitutional: No acute distress, resting comfortably in bed HEENT: Sclera anicteric Cardiovascular: RRR, normal S1/S2, no murmurs noted Pulmonary: Clear to auscultation b/l, no wheezes/crackles/rhonchi, no increased work of breathing GI: Soft, nontender, non distended Lower extremities: Warm and well perfused, no lower extremity edema Neuro: A&O x3, able to move all 4 extremities spontaneously Psych: Appropriate mood and affect Labs Results from last 7 days Lab Units 01/19/24 0701/18/242121 WBC AUTO x10*3/uL 2.6* 5.2 HEMOGLOBIN g/dL 13.6 11.5* HEMATOCRIT % 41.4 34.7* PLATELETS AUTO x10*3/uL 123* 109* Results from last 7 days Lab Units 01/19/24 0701/18/242121 SODIUM mmol/L 136 139 POTASSIUM mmol/L 4.6 3.6 CHLORIDE mmol/L 101 102 CO2 mmol/L 27 32 BUN mg/dL 19 19 CREATININE mg/dL 0.88 0.91 CALCIUM mg/dL 8.8 8.8 MAGNESIUM mg/dL 2.27 1.49* Results from last 7 days Lab Units 01/19/24 0701/18/242121 ALK PHOS U/L 271* 233* BILIRUBIN TOTAL mg/dL 2.3* 2.0* BILIRUBIN DIRECT mg/dL 1.2* -- PROTEIN TOTAL g/dL 7.0 6.5 ALT U/L 83* 78* AST U/L 84* 90* Results from last 7 days Lab Units 01/19/24 0701/18/242121 APTT seconds 30 30 INR 1.2* 1.2* EBV, CMV negative Imaging No orders to display Assessment/Plan Principal Problem: Acute rejection of liver transplant (Multi) Nithin Vallance is a 28 yo M w/ a PMHx of T1DM, HTN, and AIH s/p OLT 04/2016 c/b mild rejection on 01/16 biopsy after months of elevated LFTs. Now on methylprednisolone and increased tacrolimus dose, monitoring response and potential repeat biopsy on Monday. 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 - Doppler Liver US 01/02 with normal doppler, slightly nodular contour and increased echogenicity. Mild splenomegaly - Developed fatigue, low appetite, weight loss, nausea, intermittent RUQ pain last few months with elevated LFTs ALP 242, ALT 81, AST 93, Tbili 2.7 (01/03). Underwent biopsy 01/16 c/w late ACR with sinusoidal and hepatic patterns of injury, COULTER /. Stage 3 fibrosis - EBV, CMV neg, UA without c/f UTI, Blood cx NGTD [] Fu CK7, CK19, C4d immunostains to evaluate for loss of bile duct and antibody mediated rejection [] 5d methylprednisolone course, with 500mg day 1, 250mg days 2 and 3, 125mg days 4 and 5 followed by 60mg PO prednisone [] Repeat biopsy tentatively planned for Sunday 01/21 [] PO PPI [] Zofran prn [] Tacro to 1mg BID (home 12am-12pm dosing), continue home prednisone 1mg daily, MMF 250mg BID [] Daily tac levels at 11:30am, LFTs. Will tailor tacrolimus and steroids pending lab results #T1DM - On insulin pump at home - Endocrinology consulted, appreciate recs. Adjusting pump settings [] Fu Endocrine recs [] NPH 25u 30min prior to MP F: PRN E: PRN N: diabetic diet GI: PO pantoprazole DVT ppx: Lovenox Code status: Full code (confirmed on admission) NOK: Candis (mother) [phone] Mya Dawson MD Internal Medicine, PGY-1 Associated attestation - Olivia Castaneda MD - 01/20/2024 1:18 PM EDT Attending addendum: I saw and evaluated the patient. I personally obtained the critical portions of the history and physical exam. The case was discussed in detail with the fellow; including, but not limited to the chief complaint, HPI, past history, physical findings, labs and radiological findings. I agree with the fellow's medical decision making as documented in the fellow's note. The patient was counseled on the possible differential diagnoses and testing needed to arrive at a diagnosis or a treatment plan. The patient had back pain and lower abdominal pain overnight. He actually passed a kidney stone. He reports that this is actually a common issue for him. After he passed the kidney stone, he had no further symptoms. He remains on high-dose IV Solu-Medrol for his rejection. Our plan will be 250 mg IV today and tomorrow. We have also increased his Prograf back to 1 mg twice daily. We are obviously following his labs including the Prograf level daily and we will make recommendations and changes in our plan based on those results. He was seen by endocrinology for any adjustments in their medications due to the expected hyperglycemia from the Solu-Medrol. Olivia Castaneda MD, FAASLD, [facility] Machine Guide Base Winder, Hepatology Senior Attending Physician [facility] financial coordinator Division of Gastroenterology and Liver Disease [employer] [address] [place] [phone] Pharmacy Medication History Review Luly Giron is a 28 y.o. male admitted for Acute rejection of liver transplant ([facility]). Pharmacy reviewed the patient's [id number] medications and allergies for accuracy. The list below reflects the updated RAPID TRANSIT OPERATOR list. Comments regarding how patient may be taking medications differently can be found in the Admit Orders Activity Prior to Admission Medications Prescriptions Last Dose Informant OneTouch Ultra Test strip Self Sig: Test 4 times daily amLODIPine (Norvasc) 5 mg tablet Self Sig: Take 1 tablet (5 mg) by mouth once daily. aspirin 81 mg EC tablet Self Sig: Take 1 tablet (81 mg) by mouth once daily. insulin lispro (HumaLOG) 100 unit/mL injection Self Sig: INJECT 50 UNITS PER PUMP DIRECTED ONCE DAILY lancets 33 gauge misc Self Sig: Test blood sugars 5 times daily as directed magnesium oxide (Mag-Ox) 400 mg (241.3 mg magnesium) tablet Self Sig: Take 1 tablet (400 mg) by mouth 2 times a day. multivit-min/ferrous fumarate (MULTI VITAMIN ORAL) Self Sig: Take 1 tablet by mouth once daily. mycophenolate (Cellcept) 250 mg capsule Self Sig: Take 1 capsule (250 mg) by mouth every 12 hours. predniSONE (Deltasone) 1 mg tablet Self Sig: Take 1 tablet (1 mg) by mouth once daily. tacrolimus (Prograf) 0.5 mg capsule Self Sig: Take 1 capsule (0.5 mg) by mouth 2 times a day. Facility-Administered Medications: None The list below reflects the updated allergy list. Please review each documented allergy for additional clarification and justification. Allergies Reviewed by Comfort Russell RN on 01/18/2024 Severity Reactions Comments Red Dye High Anaphylaxis, Angioedema, Swelling Other Reaction(s): Swelling of Lip/Tongue/Throat Patient declines M2B at discharge. Pharmacy has been updated to [facility] in [place]. Sources used to complete the med history include out patient fill history, OARRS, and patient interview Reliable historian Below are additional concerns with the patient's RAPID TRANSIT OPERATOR list. N/A Ramin Melton PharmD Transitions of Care Pharmacist [facility] Please reach out via Secure Chat for questions, or if no response call [employer] or Chloe + Isabel 01/19/24 1344 Discharge Planning Living Arrangements Spouse/significant other Support Systems Spouse/significant other Assistance Needed none Type of Residence Private residence Who is requesting discharge planning? Other (Comment) (Initial TCC assessment) Home or Post Acute Services None Patient expects to be discharged to: Home Does the patient need discharge transport arranged? No (Mom will drive home at time of discharge) Financial Resource Strain How hard is it for you to pay for the very basics like food, housing, medical care, and heating? Not hard Housing Stability In the last 12 months, was there a time when you were not able to pay the mortgage or rent on time? N In the last 12 months, how many places have you lived? 1 In the last 12 months, was there a time when you did not have a steady place to sleep or slept in a assisted (including now)? N Transportation Needs In the past 12 months, has lack of transportation kept you from medical appointments or from getting medications? no In the past 12 months, has lack of transportation kept you from meetings, work, or from getting things needed for daily living? No Met with pt and introduced myself as respiratory care faculty with Care Transitions Team for discharge planning. Pt lives at home with and is completely independent with ADL's/iADL's + drives. Pt stated he feels safe at home. Pt denies any falls. Pt's address, phone number, and contact information was verified. Pt denies any social or financial concerns at this time. Home care: none. DME: glucometer + insulin supplies. manager leadership development: none. PCP: Coby Sosa MD Last appt: Few months ago Transport to appts: Pt drives himself. Pharm: [facility] (denies issues affording/obtaining medications, including Transplant meds) Discharge Planning: Pt admitted for c/f acute transplant rejection after biopsy, team plan to start steroids x3 days and repeat biopsy on Monday, no home going needs anticipated at time of discharge. content coordinator will continue to follow for discharge planning needs. Kapil العلي RN Transitional Travel Coordinator/TCC [id number] documented in this encounter [facility] Work Phone: 01-24-2024 Hospital Discharge instructions Mya Dawson MD - 01/24/2024 8:03 AM EDT Discharge Instructions Dear Luly Giron, You were admitted to [facility] for concern of transplant rejection after your most recent liver biopsy. While you were admitted, we gave you a stronger dose of your Tacrolimus, one of your immune suppression medications, and gave you a few days of IV steroids. Afterwards, we started you on a higher dose of the oral steroids you take at home. You had a repeat biopsy of your liver, and during this ultrasound they noticed a small amount of fluid around your liver. Because of this, we did an ultrasound of your heart to make sure that was not the cause and everything looked normal. Your repeat liver biopsy showed some chronic rejection and was very similar to the one you had before you were admitted to the hospital. There are a few special processing steps to this biopsy that will take some time, and Dr. Ayoub can discuss these with you. While you were here, we asked the Endocrinology team to help us with your insulin and pump settings, and these are listed below. Medication changes: Please take 1mg Tacrolimus twice a day Please take 60mg Prednisone every morning For your diabetes, please take 20u of NPH Insulin at the same time as your Prednisone, and continue the same pump settings that you used in the hospital: Basal rates of 0.5U/hr, ICR 1:9, and ISF 1:40 Appointments/follow-up: We have requested an automated system to call you to schedule, however if you do not hear from them in next few days, please call [facility] appointment line: [phone] Ayoub's team will call you to schedule lab work, likely early next week. Please call your PCP and schedule an appointment to be seen after your appointment with Dr. Ayoub as your medications may change and your insulin regimen may need to be adjusted. It was a pleasure taking care of you, Your Care Team documented in this encounter [facility] Work Phone: 01-23-2024 Note 1. Trace amount of a scites. 2. Essentially normal Doppler evaluation. 3. Non-obstructing stones right kidney MACRO: None Signed by: Татьяна Eid 01/23/2024 12:57 PM Dictation workstation: [id number] MMODAL 01-23-2024 Hospital Note Formatting of t his note might be different from the original. Luly Giron is a 28 y.o. 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 Pt follows with Dr. Ayoub, recently developed fatigue, low appetite, weight loss, nausea, intermittent RUQ pain last few months with elevated LFTs ALP 242, ALT 81, AST 93, Tbili 2.7 (01/03). Underwent biopsy 01/16 c/w late ACR with sinusoidal and hepatic patterns of injury, COULTER 01/08. Stage 3 fibrosis. Recommended admission for pulse dose steroids and repeat biopsy. On admission, was HDS with labs significant for WBC 2.6, Hgb 13.6, Plt 123. LFTs notable for ALP 271, ALT 83, AST 84, Tbili 2.3, Dbili 1.2, relatively stable from weeks prior. He was started on a 5d IV Methylprednisolone course, with 500mg day 1, 250mg days 2 and 3, 125mg days 4 and 5, followed by 60mg PO Prednisone daily. He endorsed continued intermittent RUQ pain, but new RUQ fullness and R shoulder pain. Thought to most likely be 2/2 hepatomegaly from glycogen deposition given his hyperglycemia, though ordered RUQ US to rule out a hematoma given recent biopsies. RUQ was largely unremarkable, had some trace ascites for which TTE was done to rule out cardiac etiology as his LFTs had not improved on steroids and ascites seemed slightly worse from previous US and biopsy. TTE with EF 65-70%, improved from 55% in 2016. He underwent repeat biopsy 01/22, which was consistent with Stage 2-3 fibrosis and chronic rejection, largely unchanged from his previous biopsy. Special stains pending at time of discharge. His LFTs had remained stable though slightly elevated, potentially due to severe hyperglycemia, and he was discharged with repeat labs and follow up the following week. He was discharged on his inpatient immunosuppression regimen of Tacrolimus 1mg BID, MMF 250mg BID, and Prednisone 60mg daily. During his stay, Endocrinology was consulted to assist with insulin regimen given his hyperglycemia on high dose steroids. His pump settings were titrated and he was managed with NPH BID, ultimately discharged on 20u NPH every morning with his prednisone, and pump settings of basal rate 0.5U/hr, ICR 1:9, and ISF 1:40 along with outpatient Endocrinology referral. [facility] Work Phone: 01-23-2024 Miscellaneous Notes Luly Giron is a 28 y.o. 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 Pt follows with Dr. Ayoub, recently developed fatigue, low appetite, weight loss, nausea, intermittent RUQ pain last few months with elevated LFTs ALP 242, ALT 81, AST 93, Tbili 2.7 (01/03). Underwent biopsy 01/16 c/w late ACR with sinusoidal and hepatic patterns of injury, COULTER 01/08. Stage 3 fibrosis. Recommended admission for pulse dose steroids and repeat biopsy. On admission, was HDS with labs significant for WBC 2.6, Hgb 13.6, Plt 123. LFTs notable for ALP 271, ALT 83, AST 84, Tbili 2.3, Dbili 1.2, relatively stable from weeks prior. He was started on a 5d IV Methylprednisolone course, with 500mg day 1, 250mg days 2 and 3, 125mg days 4 and 5, followed by 60mg PO Prednisone daily. He endorsed continued intermittent RUQ pain, but new RUQ fullness and R shoulder pain. Thought to most likely be 2/2 hepatomegaly from glycogen deposition given his hyperglycemia, though ordered RUQ US to rule out a hematoma given recent biopsies. RUQ was largely unremarkable, had some trace ascites for which TTE was done to rule out cardiac etiology as his LFTs had not improved on steroids and ascites seemed slightly worse from previous US and biopsy. TTE with EF 65-70%, improved from 55% in 2016. He underwent repeat biopsy 01/22, which was consistent with Stage 2-3 fibrosis and chronic rejection, largely unchanged from his previous biopsy. Special stains pending at time of discharge. His LFTs had remained stable though slightly elevated, potentially due to severe hyperglycemia, and he was discharged with repeat labs and follow up the following week. He was discharged on his inpatient immunosuppression regimen of Tacrolimus 1mg BID, MMF 250mg BID, and Prednisone 60mg daily. During his stay, Endocrinology was consulted to assist with insulin regimen given his hyperglycemia on high dose steroids. His pump settings were titrated and he was managed with NPH BID, ultimately discharged on 20u NPH every morning with his prednisone, and pump settings of basal rate 0.5U/hr, ICR 1:9, and ISF 1:40 along with outpatient Endocrinology referral. Interventional Radiology Brief Postprocedure Note Attending: Dr. Татьяна Eid MD Transmission Maintenance Supervisor: Zhane Vaughan MD Diagnosis: Concern for acute rejection of liver transplant, s/p steroid treatment Description of procedure: A total of 2 passes were made into the right hepatic lobe under ultrasound guidance using a 18 Gauge needle passed through a 17 gauge coaxial system. Scanning after each pass demonstrated no bleeding. Specimens were sent to pathology for further analysis. See PACS for full procedural report. Anesthesia: Local, Fentanyl & Versed Complications: None Estimated Blood Loss: minimal Medications As of 01/23/24 0858 amLODIPine (Norvasc) tablet 5 mg (mg) Total dose: 20 mg Date/Time Rate/Dose/Volume Action 01/19/24 0949 5 mg Given 01/20/24 0935 5 mg Given 01/21/24 0832 5 mg Given 01/22/24 0856 5 mg Given aspirin EC tablet 81 mg (mg) Total dose: 324 mg Date/Time Rate/Dose/Volume Action 01/19/24 0949 81 mg Given 01/20/24 0935 81 mg Given 01/21/24 0831 81 mg Given 01/22/24 0851 81 mg Given mycophenolate (Cellcept) capsule 250 mg (mg) Total dose: 2,250 mg Date/Time Rate/Dose/Volume Action 01/19/24 0001 250 mg Given 1257 250 mg Given 2348 250 mg Given 01/20/24 1158 250 mg Given 2330 250 mg Given 01/21/24 1213 250 mg Given 2352 250 mg Given 01/22/24 1217 250 mg Given 2333 250 mg Given predniSONE (Deltasone) tablet 1 mg (mg) Total dose: Cannot be calculated* *Administration dose not documented Date/Time Rate/Dose/Volume Action 01/19/24899 *1 mg Missed 09 *Not included in total Held by provider 01/20/24899 *Not included in total Automatically Held 1249 *Not included in total Unheld by provider tacrolimus (Prograf) capsule 0.5 mg (mg) Total dose: 1 mg Date/Time Rate/Dose/Volume Action 01/19/24 0001 0.5 mg Given 1317 0.5 mg Given enoxaparin (Lovenox) syringe 40 mg (mg) Total dose: 160 mg Date/Time Rate/Dose/Volume Action 01/19/24 0948 40 mg Given 01/20/24 0936 40 mg Given 01/21/24 0832 40 mg Given 01/22/24 0846 40 mg Given 1122 *Not included in total Held by provider INSULIN PUMP- PATIENT SUPPLIED Total dose: Cannot be calculated* *Administration dose not documented Date/Time Rate/Dose/Volume Action 01/18/242199 *Not included in total Self Administered Via Pump 01/19/242199 *Not included in total Self Administered Via Pump 01/20/242199 *Not included in total Self Administered Via Pump 01/21/242199 *Not included in total Self Administered Via Pump 01/22/242199 *Not included in total Self Administered Via Pump insulin lispro (HumaLOG) refill for patient own pump 3 mL (mL) Total volume: 0 mL* *Administration not included in total Date/Time Rate/Dose/Volume Action 01/19/24 184 *10 mL Pump Refill methylPREDNISolone sodium succinate (SOLU-Medrol) 500 mg in dextrose 5 % in water (D5W) 100 mL IV (mL/hr) Total volume: Not documented* *Total volume has not been documented. View each administration to see the amount administered. Date/Time Rate/Dose/Volume Action 01/18/24 2254 500 mg - 108 mL/hr (over 60 min) New Bag 2354 (over 60 min) Stopped methylPREDNISolone sodium succinate (SOLU-Medrol) 250 mg in dextrose 5 % in water (D5W) 100 mL IV (mL/hr) Total dose: 490.38 mg* *From user-documented volume Date/Time Rate/Dose/Volume Action 01/19/242030 250 mg - 104 mL/hr (over 60 min) - 100 mL [vol] New Bag 2131 (over 60 min) Stopped 01/20/24 2104 250 mg - 104 mL/hr (over 60 min) - 104 mL [vol] New Bag 2204 (over 60 min) Stopped pantoprazole (ProtoNix) EC tablet 40 mg (mg) Total dose: 160 mg Date/Time Rate/Dose/Volume Action 01/19/24 0800 40 mg Given 01/20/24 0600 40 mg Given 01/21/24 0831 40 mg Given 01/22/24 0851 40 mg Given magnesium sulfate IV 4 g (mL/hr) Total volume: Cannot be calculated* *Total user-documented volume 100 mL may contain volume from other administrations Date/Time Rate/Dose/Volume Action 01/19/24 0033 4 g - 25 mL/hr (over 240 min) New Bag 0433 (over 240 min) Stopped potassium chloride CR (Klor-Con M20) ER tablet 40 mEq (mEq) Total dose: 40 mEq Date/Time Rate/Dose/Volume Action 01/18/24 2215 40 mEq Given insulin NPH (Isophane) (HumuLIN N,NovoLIN N) injection 15 Units (Units) Total dose: 15 Units Date/Time Rate/Dose/Volume Action 01/19/24 0948 15 Units Given insulin NPH (Isophane) (HumuLIN N,NovoLIN N) injection 25 Units (Units) Total dose: 25 Units Dosing weight: 55.5 Date/Time Rate/Dose/Volume Action 01/19/242021 25 Units Given insulin NPH (Isophane) (HumuLIN N,NovoLIN N) injection 10 Units (Units) Total dose: 10 Units Dosing weight: 55.5 Date/Time Rate/Dose/Volume Action 01/20/24 1904 10 Units Given insulin NPH (Isophane) (HumuLIN N,NovoLIN N) injection 15 Units (Units) Total dose: 15 Units Dosing weight: 55.5 Date/Time Rate/Dose/Volume Action 01/20/24 1331 15 Units Given insulin NPH (Isophane) (HumuLIN N,NovoLIN N) injection 15 Units (Units) Total dose: 15 Units Dosing weight: 55.5 Date/Time Rate/Dose/Volume Action 01/21/24 0832 15 Units Given insulin NPH (Isophane) (HumuLIN N,NovoLIN N) injection 10 Units (Units) Total dose: 10 Units Dosing weight: 55.5 Date/Time Rate/Dose/Volume Action 01/21/24 2026 10 Units Given insulin NPH (Isophane) (HumuLIN N,NovoLIN N) injection 15 Units (Units) Total dose: 15 Units Dosing weight: 55.5 Date/Time Rate/Dose/Volume Action 01/22/24 0846 15 Units Given insulin NPH (Isophane) (HumuLIN N,NovoLIN N) injection 10 Units (Units) Total dose: 10 Units Dosing weight: 55.5 Date/Time Rate/Dose/Volume Action 01/22/24 1422 10 Units Given insulin NPH (Isophane) (HumuLIN N,NovoLIN N) injection 10 Units (Units) Total dose: 10 Units Dosing weight: 55.5 Date/Time Rate/Dose/Volume Action 01/22/24 2013 10 Units Given tacrolimus (Prograf) capsule 1 mg (mg) Total dose: 7 mg Dosing weight: 55.5 Date/Time Rate/Dose/Volume Action 01/19/24 2348 1 mg Given 01/20/24 1158 1 mg Given 2330 1 mg Given 01/21/24 1213 1 mg Given 2352 1 mg Given 01/22/24 1217 1 mg Given 2333 1 mg Given methylPREDNISolone sod succinate (SOLU-Medrol) injection 125 mg (mg) Total dose: 250 mg Dosing weight: 55.5 Date/Time Rate/Dose/Volume Action 01/21/24 2140 125 mg Given 01/22/24 2109 125 mg Given insulin lispro (HumaLOG) injection 0-10 Units (Units) Total dose: 64 Units Dosing weight: 55.5 Date/Time Rate/Dose/Volume Action 01/19/24 1758 8 Units Given 01/20/24 0800 *Not included in total Missed 1159 10 Units Given 1730 2 Units Given 01/21/24 0832 6 Units Given 1213 6 Units Given 1740 4 Units Given 01/22/24 0853 8 Units Given 1422 10 Units Given 1902 10 Units Given 01/23/24 0711 *Not included in total Held by provider 0800 *Not included in total Automatically Held acetaminophen (Tylenol) tablet 650 mg (mg) Total dose: 650 mg Dosing weight: 55.5 Date/Time Rate/Dose/Volume Action 01/19/24 1839 650 mg Given oxyCODONE (Roxicodone) immediate release tablet 5 mg (mg) Total dose: 5 mg Dosing weight: 55.5 Date/Time Rate/Dose/Volume Action 01/19/24 2151 5 mg Given oxyCODONE (Roxicodone) immediate release tablet 2.5 mg (mg) Total dose: 2.5 mg Dosing weight: 55.5 Date/Time Rate/Dose/Volume Action 01/21/24 2136 2.5 mg Given magnesium sulfate IV 2 g (mL/hr) Total volume: Cannot be calculated* Dosing weight: 55.5 *Total user-documented volume 100 mL may contain volume from other administrations Date/Time Rate/Dose/Volume Action 01/21/24 1610 2 g - 25 mL/hr (over 120 min) New Bag 1810 (over 120 min) Stopped magnesium oxide (Mag-Ox) tablet 400 mg (mg) Total dose: 400 mg Dosing weight: 55.5 Date/Time Rate/Dose/Volume Action 01/22/24 0851 400 mg Given fentaNYL PF (Sublimaze) injection (mcg) Total dose: 100 mcg Date/Time Rate/Dose/Volume Action 01/23/24 0841 50 mcg Given 0845 50 mcg Given midazolam (Versed) injection (mg) Total dose: 2 mg Date/Time Rate/Dose/Volume Action 01/23/24 0841 1 mg Given 0845 1 mg Given See detailed result report with images in PACS. The patient tolerated the procedure well without incident or complication and is in stable condition. The patient's goals for the shift include The clinical goals for the shift include Pt will remain safe and free injury during this shift 01/21/24 0700. Problem: Pain - Adult Goal: Verbalizes/displays adequate comfort level or baseline comfort level Outcome: Progressing Problem: Safety - Adult Goal: Free from fall injury Outcome: Progressing Problem: Discharge Planning Goal: Discharge to home or other facility with appropriate resources Outcome: Progressing Problem: Chronic Conditions and Co-morbidities Goal: Patient's chronic conditions and co-morbidity symptoms are monitored and maintained or improved Outcome: Progressing Problem: Diabetes Goal: Maintain glucose levels >70mg/dl to <250mg/dl throughout shift Outcome: Progressing Goal: No changes in neurological exam by end of shift Outcome: Progressing Goal: Vital signs within normal range for age by end of shift Outcome: Progressing Updated Assessment and Plan: Nithin Giron is a 28 yo M w/ a PMHx of T1DM, HTN, and AIH s/p OLT 04/2016 c/b mild rejection on 01/16 biopsy after months of elevated LFTs. Now on methylprednisolone and increased tacrolimus dose, monitoring response and potential repeat biopsy on Monday. 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 - Doppler Liver US 01/02 with normal doppler, slightly nodular contour and increased echogenicity. Mild splenomegaly - Developed fatigue, low appetite, weight loss, nausea, intermittent RUQ pain last few months with elevated LFTs ALP 242, ALT 81, AST 93, Tbili 2.7 (01/03). Underwent biopsy 01/16 c/w late ACR with sinusoidal and hepatic patterns of injury, COULTER 01/08. Stage 3 fibrosis [] Fu CK7, CK19, C4d immunostains to evaluate for loss of bile duct and antibody mediated rejection [] 5d methylprednisolone course, with 500mg day 1, 250mg days 2 and 3, 125mg days 4 and 5 followed by 60mg PO prednisone [] Repeat biopsy tentatively planned for Sunday 01/21 [] PO PPI [] Infectious workup including blood cultures, UA with reflex culture, CMV PCR, EBV PCR ordered [] Zofran prn [] Increase Tacro to 1mg BID, continue home prednisone 1mg daily, MMF 250mg BID [] Daily tac levels, LFTs. Will tailor tacrolimus and steroids pending lab results #T1DM - On insulin pump at home - Endocrinology consulted, appreciate recs [] Fu Endocrine recs [] NPH 15u 30min prior to MP F: PRN E: PRN N: diabetic diet GI: PO pantoprazole DVT ppx: Lovenox Code status: Full code (confirmed on admission) NOK: Candis (mother) [phone] Mya Dawson MD Internal Medicine, PGY-1 Senior staffing note Please see the excellent design engineering intern note for the comprehensive H&P. HPI Mr. Giron is a 28 y.o. M with PMHx of DM type 1, autoimmune hepatitis s/p OLT (04/2016 here at ) complicated by mild rejection (COULTER score=4) as shown by IR US guided percutaneous liver biopsy, right lobe (01/17/24). Patient reports feeling fatigued, low appetite, weight loss for the pas few moths. Has intermittent nausea, but no vomiting, and RUQ sharp pain that resolves spontaneously. Reports diarrhea with yellow stool. Denies any juandice, but did have lower extremity pruritus and some leg edema a few days ago, that eventually resolved. Has intermittent headaches as well. He denies any alcohol use, no recreation drug use. Otherwise denies chest pain, SOB, no urinary complaints. He had his dose of Tacrolimus decreased from 1 to 0.5 mg BID a few weeks ago due to supra therapeutic level. Of note: in Aug 2017 his condition was complicated by mild to moderate allograft rejection treated with 3 days of Solu-Medrol (CMV D+/R+, EBV D+/R+). 12 point ROS performed and was negative, except as mentioned ain the HPI. Allergies Allergen Reactions Red Dye Anaphylaxis, Angioedema and Swelling Other Reaction(s): Swelling of Lip/Tongue/Throat Hepatology Hx: Microbiologic data 02/20/23- Whole blood EBV PCR is 5743 copies / ml 02/20/23-plasma CMV PCR is negative 12/19/23 - LIVER, RIGHT LOBE, NEEDLE-CORE BIOPSY: - Suboptimal biopsy specimen with: i. Mild portal and lobular inflammation (see comment). ii. 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 Microscopic Description The biopsy specimen consists of one core of hepatic parenchyma measuring approximately 0.8 cm in length with only two definitive portal tracts identified. The portal tracts show a mixed inflammatory infiltrate comprised of lymphocytes, histiocytes, neutrophils, plasma cells, and eosinophils. Mild interface activity is present. The bile duct show reactive changes including mild nuclear disarray and cytoplasmic eosinophilia. Scattered foci of lobular inflammation and prominent Kupffer cell hyperplasia are present. Rare single cell hepatocyte apoptosis is identified. No significant steatosis is seen. CK7 stain shows prominent hepatocyte ductular metaplasia. CK19 highlights bile ducts and ductules. Trichrome stain shows mild portal and prominent perisinusoidal fibrosis. Reticulin stain shows preserved reticulin framework. PAS-diastase shows scattered portal and lobular ceroid-laden macrophages; no evidence of alpha-1 antitrypsin globules is seen. Iron stain is negative. 01/17/24 A. LIVER TRANSPLANT BIOPSY: -- Liver with bile duct injury, portal inflammation, endotheliitis (COULTER score=4) and lobular inflammation, see note Note: Sections show liver parenchyma with focal bridging fibrosis. Portal tracts show inflammatory cells composed of lymphocytes, with bile duct injury and endotheliitis. Lobular inflammation is evident with predominantly lymphocytes and some plasma cells. Sinusoidal infiltration by lymphocytes is present. Endothelitiitis is also seen in central venule. Iron stain is negative, PAS-D stain is negative. 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 The overall histological findings are suggestive of acute cellular rejection with sinsusoidal and hepatitic patterns of injury. CK7, CK19 and C4d immunstains have been ordered and results will be reported in addendum. Rejection Activity Index (COULTER score) Portal inflammation (0-3) 1 Bile duct inflammation/damage (0-3) 2 Venous endothelial inflammation (0-3) 1 Total COULTER = 4/9 Doppler liver US (01/03/24) IMPRESSION: Doppler portion of this exam was within the limits of normal. There was mild nonspecific perihepatic ascites. Also, liver echogenicity was slightly increased and coarsened throughout and liver contours did appear to be slightly with nodular in places. An element of cirrhosis of the liver is not excluded by this exam. Clinical and laboratory correlation are needed. Mild splenomegaly. Nonobstructing stones in both kidneys. Previous cholecystectomy. Current Outpatient Medications: amLODIPine (Norvasc) 5 mg tablet, Take 1 tablet (5 mg) by mouth once daily., Disp: , Rfl: aspirin 81 mg EC tablet, Take 1 tablet (81 mg) by mouth once daily., Disp: , Rfl: insulin lispro (HumaLOG) 100 unit/mL injection, INJECT 50 UNITS PER PUMP DIRECTED ONCE DAILY, Disp: , Rfl: lancets 33 gauge misc, Test blood sugars 5 times daily as directed, Disp: , Rfl: magnesium oxide (Mag-Ox) 400 mg (241.3 mg magnesium) tablet, Take 1 tablet (400 mg) by mouth 2 times a day., Disp: 180 tablet, Rfl: 3 multivit-min/ferrous fumarate (MULTI VITAMIN ORAL), Take 1 tablet by mouth once daily., Disp: , Rfl: mycophenolate (Cellcept) 250 mg capsule, Take 1 capsule (250 mg) by mouth every 12 hours., Disp: 180 capsule, Rfl: 3 OneTouch Ultra Test strip, Test 4 times daily, Disp: , Rfl: predniSONE (Deltasone) 1 mg tablet, Take 1 tablet (1 mg) by mouth once daily., Disp: , Rfl: tacrolimus (Prograf) 0.5 mg capsule, Take 1 capsule (0.5 mg) by mouth 2 times a day., Disp: 180 capsule, Rfl: 3 Results for orders placed or performed during the hospital encounter of 01/17/24 (from the past 96 hour(s)) Surgical Pathology Exam Result Value Ref Range Case Report Surgical Pathology Case: [id number] Authorizing Provider: Татьяна Eid MD Collected: 01/17/2024 1000 Ordering Location: [facility] Received: 01/17/[address] [place] [address] Pathologist: Kenn Diaz MD Specimen: LIVER TRANSPLANT BIOPSY FINAL DIAGNOSIS A. LIVER TRANSPLANT BIOPSY: -- Liver with bile duct injury, portal inflammation, endotheliitis (COULTER score=4) and lobular inflammation, see note Note: Sections show liver parenchyma with focal bridging fibrosis. Portal tracts show inflammatory cells composed of lymphocytes, with bile duct injury and endotheliitis. Lobular inflammation is evident with predominantly lymphocytes and some plasma cells. Sinusoidal infiltration by lymphocytes is present. Endothelitiitis is also seen in central venule. Iron stain is negative, PAS-D stain is negative. 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 The overall histological findings are suggestive of acute cellular rejection with sinsusoidal and hepatitic patterns of injury. CK7, CK19 and C4d immunstains have been ordered and results will be reported in addendum. Rejection Activity Index (COULTER score) Portal inflammation (0-3) 1 Bile duct inflammation/damage (0-3) 2 Venous endothelial inflammation (0-3) 1 Total COULTER = 4/9 By the signature on this report, the individual or group listed as making the Final Interpretation/Diagnosis certifies that they have reviewed this case. Comment Preliminary result was communicated to Dr.Pierre Ayoub at 5:20 pm on 01/17/2024 by email. Clinical History Hx liver transplant 04/08/2016, new findings on US suggestive of cirrhosis. AKP 242, AST 93 and ALT 81 on 01/04/04. ACR in 2017. Gross Description Received in formalin, labeled with the patient's name and hospital number and liver transplant , are 2 cylindrical segments of stevenson-red soft tissue measuring 1.7 cm and 1.7 cm in length by < 0.1 cm in diameter. The specimen is submitted in toto in 1 cassette. SBS Disclaimer One or more of the reagents used to perform assays on this specimen MAY have contained components considered to be analyte specific reagents (ASR's). ASR's have not been cleared or approved by the U.S. Food and Drug Administration. These assays were developed and their performance characteristics determined by the Department of Pathology at [facility]. The FDA does not require this test to go through premarket FDA review. This test is used for clinical purposes. It should not be regarded as investigational or for research. This laboratory is certified under the Clinical Laboratory Improvement Amendments (CLIA) as qualified to perform high complexity clinical laboratory testing. The assays were performed with appropriate positive and negative controls which stained appropriately. No results found for this or any previous visit (from the past 24 hour(s)). Vitals: 01/18/242022 BP: 129/79 Pulse: 62 Resp: 17 Temp: 37 C (98.6 F) SpO2: 98% Physical exam: Constitutional: He is oriented to person, place, and time. He appears well-developed and well-nourished. No distress. HENT: Eyes: Conjunctivae are normal. No jaundice. Cardiovascular: Normal rate, regular rhythm and normal heart sounds. Lung: Effort normal and breath sounds normal. No respiratory distress. He has no wheezes or rales. Abdominal: Soft. Bowel sounds are normal. He exhibits no distension. There is no tenderness. There is no rebound and no guarding. Neurological: He is alert and oriented to person, place, and time. Skin: Skin is warm and dry. Psychiatric: He has a normal mood and affect. Assessment & Plan: Mr. Giron is a 28 y.o. M with PMHx of DM type 1, autoimmune hepatitis s/p OLT (04/2016 here at ) complicated by mild rejection (COULTER score=4) as shown by IR US guided percutaneous liver biopsy, right lobe (01/17/24). He is following up with Dr. Ayoub outpatient, and was instructed to be admitted for pulse steroids after the results of liver biopsy showed acute rejection of liver transplant. Has been having elevated LFTs for the past few months. Liver US showed Doppler portion was within the limits of normal. There was mild nonspecific perihepatic ascites and possible cirrhosis of the liver. Will start steroids, and obtain LFT's + tacro level tomorrow. # Autoimmune hepatitis s/p OLT (04/2016) complicated by acute mild to moderate rejection (COULTER score=4) # Transaminases # Hyperbilirubinemia :: Most recent plasma EBV PCR's are undetectable. :: HSV and CMV staining on previous liver biopsy specimen was negative. :: 12/19/23: LIVER, RIGHT LOBE, NEEDLE-CORE BIOPSY: Suboptimal biopsy specimen with Mild portal and lobular inflammation (see comment). 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 :: 01/17/24: LIVER TRANSPLANT BIOPSY: Liver with bile duct injury, portal inflammation, endotheliitis (COULTER score=4) and lobular inflammation. The overall histological findings are suggestive of acute cellular rejection with sinsusoidal and hepatitic patterns of injury. :: 01/04/24 - CMV DNA and EBV DNA was negative :: Doppler liver US (01/03/24): Doppler portion of this exam was within the limits of normal. There was mild nonspecific perihepatic ascites. An element of cirrhosis of the liver is not excluded by this exam. :: Tacro level 01/03 WANL 6.3 :: Tacro dose was recently decreased from 1 mg to 0.5 mg BID due to supratherautic levels :: AST 83-> 116-> 117-> 93 (01/03) :: ALT 77 -> 93 -> 91 -> 104-> 81 :: Alk phos 184 -> 235 -> 244-> 252 -> 242 :: Tbili 2-> 2.5-> 2.9 -> 2.7 (01/03) - Keep the same tacro dose - Started Pantoprazole po for GI ppx [ ] F/up AM labs and tacro level [ ] F/up CMV and EBV serology - Steroid taper per Dr. Ayoub: Days #1-3 = MP 500mg IV x 1 dose (DAY 1) MP 250mg IV x 1 dose (DAY 2) MP 250mg IV x 1 dose (DAY 3) - Needs to get repeat biopsy on Monday. # Type 1 DM - On Insulin pump at home, not sure of what his dose is - Endocrinology was consulted for management and transition to subcutaneous regimen N: diabetic diet A: PIV DVT ppx: Lovenox GI ppx: Pantoprazole Code Status: FULL CODE (confirmed on admission) Surrogate Medical Decision-maker: Candis (mother) [phone] documented in this encounter [facility] Work Phone: 01-23-2024 Note Formatting of this n ote is different from the original. Interventional Radiology Brief Postprocedure Note Attending: Dr. Татьяна Eid MD Transmission Maintenance Supervisor: Zhane Vaughan MD Diagnosis: Concern for acute rejection of liver transplant, s/p steroid treatment Description of procedure: A total of 2 passes were made into the right hepatic lobe under ultrasound guidance using a 18 Gauge needle passed through a 17 gauge coaxial system. Scanning after each pass demonstrated no bleeding. Specimens were sent to pathology for further analysis. See PACS for full procedural report. Anesthesia: Local, Fentanyl & Versed Complications: None Estimated Blood Loss: minimal Medications As of 01/23/24 0858 amLODIPine (Norvasc) tablet 5 mg (mg) Total dose: 20 mg Date/Time Rate/Dose/Volume Action 01/19/24 0949 5 mg Given 01/20/24 0935 5 mg Given 01/21/24 0832 5 mg Given 01/22/24 0856 5 mg Given aspirin EC tablet 81 mg (mg) Total dose: 324 mg Date/Time Rate/Dose/Volume Action 01/19/24 0949 81 mg Given 01/20/24 0935 81 mg Given 01/21/24 0831 81 mg Given 01/22/24 0851 81 mg Given mycophenolate (Cellcept) capsule 250 mg (mg) Total dose: 2,250 mg Date/Time Rate/Dose/Volume Action 01/19/24 0001 250 mg Given 1257 250 mg Given 2348 250 mg Given 01/20/24 1158 250 mg Given 2330 250 mg Given 01/21/24 1213 250 mg Given 2352 250 mg Given 01/22/24 1217 250 mg Given 2333 250 mg Given predniSONE (Deltasone) tablet 1 mg (mg) Total dose: Cannot be calculated* *Administration dose not documented Date/Time Rate/Dose/Volume Action 01/19/24899 *1 mg Missed 09 *Not included in total Held by provider 01/20/24899 *Not included in total Automatically Held 1249 *Not included in total Unheld by provider tacrolimus (Prograf) capsule 0.5 mg (mg) Total dose: 1 mg Date/Time Rate/Dose/Volume Action 01/19/24 0001 0.5 mg Given 1317 0.5 mg Given enoxaparin (Lovenox) syringe 40 mg (mg) Total dose: 160 mg Date/Time Rate/Dose/Volume Action 01/19/24 0948 40 mg Given 01/20/24 0936 40 mg Given 01/21/24 0832 40 mg Given 01/22/24 0846 40 mg Given 1122 *Not included in total Held by provider INSULIN PUMP- PATIENT SUPPLIED Total dose: Cannot be calculated* *Administration dose not documented Date/Time Rate/Dose/Volume Action 01/18/242199 *Not included in total Self Administered Via Pump 01/19/242199 *Not included in total Self Administered Via Pump 01/20/242199 *Not included in total Self Administered Via Pump 01/21/242199 *Not included in total Self Administered Via Pump 01/22/242199 *Not included in total Self Administered Via Pump insulin lispro (HumaLOG) refill for patient own pump 3 mL (mL) Total volume: 0 mL* *Administration not included in total Date/Time Rate/Dose/Volume Action 01/19/24 184 *10 mL Pump Refill methylPREDNISolone sodium succinate (SOLU-Medrol) 500 mg in dextrose 5 % in water (D5W) 100 mL IV (mL/hr) Total volume: Not documented* *Total volume has not been documented. View each administration to see the amount administered. Date/Time Rate/Dose/Volume Action 01/18/244 500 mg - 108 mL/hr (over 60 min) New Bag 2354 (over 60 min) Stopped methylPREDNISolone sodium succinate (SOLU-Medrol) 250 mg in dextrose 5 % in water (D5W) 100 mL IV (mL/hr) Total dose: 490.38 mg* *From user-documented volume Date/Time Rate/Dose/Volume Action 01/19/242030 250 mg - 104 mL/hr (over 60 min) - 100 mL [vol] New Bag 2131 (over 60 min) Stopped 01/20/24 2104 250 mg - 104 mL/hr (over 60 min) - 104 mL [vol] New Bag 2204 (over 60 min) Stopped pantoprazole (ProtoNix) EC tablet 40 mg (mg) Total dose: 160 mg Date/Time Rate/Dose/Volume Action 01/19/24 0800 40 mg Given 01/20/24 0600 40 mg Given 01/21/24 0831 40 mg Given 01/22/24 0851 40 mg Given magnesium sulfate IV 4 g (mL/hr) Total volume: Cannot be calculated* *Total user-documented volume 100 mL may contain volume from other administrations Date/Time Rate/Dose/Volume Action 01/19/24 0033 4 g - 25 mL/hr (over 240 min) New Bag 0433 (over 240 min) Stopped potassium chloride CR (Klor-Con M20) ER tablet 40 mEq (mEq) Total dose: 40 mEq Date/Time Rate/Dose/Volume Action 01/18/24 2215 40 mEq Given insulin NPH (Isophane) (HumuLIN N,NovoLIN N) injection 15 Units (Units) Total dose: 15 Units Date/Time Rate/Dose/Volume Action 01/19/24 0948 15 Units Given insulin NPH (Isophane) (HumuLIN N,NovoLIN N) injection 25 Units (Units) Total dose: 25 Units Dosing weight: 55.5 Date/Time Rate/Dose/Volume Action 01/19/242021 25 Units Given insulin NPH (Isophane) (HumuLIN N,NovoLIN N) injection 10 Units (Units) Total dose: 10 Units Dosing weight: 55.5 Date/Time Rate/Dose/Volume Action 01/20/24 1904 10 Units Given insulin NPH (Isophane) (HumuLIN N,NovoLIN N) injection 15 Units (Units) Total dose: 15 Units Dosing weight: 55.5 Date/Time Rate/Dose/Volume Action 01/20/24 1331 15 Units Given insulin NPH (Isophane) (HumuLIN N,NovoLIN N) injection 15 Units (Units) Total dose: 15 Units Dosing weight: 55.5 Date/Time Rate/Dose/Volume Action 01/21/24 0832 15 Units Given insulin NPH (Isophane) (HumuLIN N,NovoLIN N) injection 10 Units (Units) Total dose: 10 Units Dosing weight: 55.5 Date/Time Rate/Dose/Volume Action 01/21/24 2026 10 Units Given insulin NPH (Isophane) (HumuLIN N,NovoLIN N) injection 15 Units (Units) Total dose: 15 Units Dosing weight: 55.5 Date/Time Rate/Dose/Volume Action 01/22/24 0846 15 Units Given insulin NPH (Isophane) (HumuLIN N,NovoLIN N) injection 10 Units (Units) Total dose: 10 Units Dosing weight: 55.5 Date/Time Rate/Dose/Volume Action 01/22/24 1422 10 Units Given insulin NPH (Isophane) (HumuLIN N,NovoLIN N) injection 10 Units (Units) Total dose: 10 Units Dosing weight: 55.5 Date/Time Rate/Dose/Volume Action 01/22/24 2013 10 Units Given tacrolimus (Prograf) capsule 1 mg (mg) Total dose: 7 mg Dosing weight: 55.5 Date/Time Rate/Dose/Volume Action 01/19/24 2348 1 mg Given 01/20/24 1158 1 mg Given 2330 1 mg Given 01/21/24 1213 1 mg Given 2352 1 mg Given 01/22/24 1217 1 mg Given 2333 1 mg Given methylPREDNISolone sod succinate (SOLU-Medrol) injection 125 mg (mg) Total dose: 250 mg Dosing weight: 55.5 Date/Time Rate/Dose/Volume Action 01/21/24 2140 125 mg Given 01/22/24 2109 125 mg Given insulin lispro (HumaLOG) injection 0-10 Units (Units) Total dose: 64 Units Dosing weight: 55.5 Date/Time Rate/Dose/Volume Action 01/19/24 1758 8 Units Given 01/20/24 0800 *Not included in total Missed 1159 10 Units Given 1730 2 Units Given 01/21/24 0832 6 Units Given 1213 6 Units Given 1740 4 Units Given 01/22/24 0853 8 Units Given 1422 10 Units Given 1902 10 Units Given 01/23/24 0711 *Not included in total Held by provider 0800 *Not included in total Automatically Held acetaminophen (Tylenol) tablet 650 mg (mg) Total dose: 650 mg Dosing weight: 55.5 Date/Time Rate/Dose/Volume Action 01/19/24 1839 650 mg Given oxyCODONE (Roxicodone) immediate release tablet 5 mg (mg) Total dose: 5 mg Dosing weight: 55.5 Date/Time Rate/Dose/Volume Action 01/19/24 2151 5 mg Given oxyCODONE (Roxicodone) immediate release tablet 2.5 mg (mg) Total dose: 2.5 mg Dosing weight: 55.5 Date/Time Rate/Dose/Volume Action 01/21/24 2136 2.5 mg Given magnesium sulfate IV 2 g (mL/hr) Total volume: Cannot be calculated* Dosing weight: 55.5 *Total user-documented volume 100 mL may contain volume from other administrations Date/Time Rate/Dose/Volume Action 01/21/24 1610 2 g - 25 mL/hr (over 120 min) New Bag 1810 (over 120 min) Stopped magnesium oxide (Mag-Ox) tablet 400 mg (mg) Total dose: 400 mg Dosing weight: 55.5 Date/Time Rate/Dose/Volume Action 01/22/24 0851 400 mg Given fentaNYL PF (Sublimaze) injection (mcg) Total dose: 100 mcg Date/Time Rate/Dose/Volume Action 01/23/24 0841 50 mcg Given 0845 50 mcg Given midazolam (Versed) injection (mg) Total dose: 2 mg Date/Time Rate/Dose/Volume Action 01/23/24 0841 1 mg Given 0845 1 mg Given See detailed result report with images in PACS. The patient tolerated the procedure well without incident or complication and is in stable condition. [facility] Work Phone: 01-21-2024 Plan of care note The patient's goals for the shift include The clinical goals for the shift include Pt will remain safe and free injury during this shift 01/21/24 0700. Problem: Pain - Adult Goal: Verbalizes/displays adequate comfort level or baseline comfort level Outcome: Progressing Problem: Safety - Adult Goal: Free from fall injury Outcome: Progressing Problem: Discharge Planning Goal: Discharge to home or other facility with appropriate resources Outcome: Progressing Problem: Chronic Conditions and Co-morbidities Goal: Patient's chronic conditions and co-morbidity symptoms are monitored and maintained or improved Outcome: Progressing Problem: Diabetes Goal: Maintain glucose levels >70mg/dl to <250mg/dl throughout shift Outcome: Progressing Goal: No changes in neurological exam by end of shift Outcome: Progressing Goal: Vital signs within normal range for age by end of shift Outcome: Progressing [facility] 01-19-2024 Note Formatting of this n ote might be different from the original. Updated Assessment and Plan: Nithin Giron is a 28 yo M w/ a PMHx of T1DM, HTN, and AIH s/p OLT 04/2016 c/b mild rejection on 01/16 biopsy after months of elevated LFTs. Now on methylprednisolone and increased tacrolimus dose, monitoring response and potential repeat biopsy on Monday. 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 - Doppler Liver US 01/02 with normal doppler, slightly nodular contour and increased echogenicity. Mild splenomegaly - Developed fatigue, low appetite, weight loss, nausea, intermittent RUQ pain last few months with elevated LFTs ALP 242, ALT 81, AST 93, Tbili 2.7 (01/03). Underwent biopsy 01/16 c/w late ACR with sinusoidal and hepatic patterns of injury, COULTER 4/9. Stage 3 fibrosis [] Fu CK7, CK19, C4d immunostains to evaluate for loss of bile duct and antibody mediated rejection [] 5d methylprednisolone course, with 500mg day 1, 250mg days 2 and 3, 125mg days 4 and 5 followed by 60mg PO prednisone [] Repeat biopsy tentatively planned for Sunday 01/21 [] PO PPI [] Infectious workup including blood cultures, UA with reflex culture, CMV PCR, EBV PCR ordered [] Zofran prn [] Increase Tacro to 1mg BID, continue home prednisone 1mg daily, MMF 250mg BID [] Daily tac levels, LFTs. Will tailor tacrolimus and steroids pending lab results #T1DM - On insulin pump at home - Endocrinology consulted, appreciate recs [] Fu Endocrine recs [] NPH 15u 30min prior to MP F: PRN E: PRN N: diabetic diet GI: PO pantoprazole DVT ppx: Lovenox Code status: Full code (confirmed on admission) NOK: Candis (mother) [phone] Mya Dawson MD Internal Medicine, PGY-1 [facility] Work Phone: 01-19-2024 History and physical note History Of Present Illness Luly Giron is a 28 y.o. 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 Regarding patient's transplant history, he follows regularly with Dr. Ayoub. Appears to have had episode of mild to moderate allograft rejection in August of 2017, which was treated with a 3 day course of solumedrol. Has otherwise had a fairly uneventful post-transplant course, until January of 2023, when labs showed rising LFTs, with unclear etiology. CMV and EBV negative at that time, with liver biopsy suggestive of mild portal inflammation. Patient's LFTs remained mildly elevated on serial repeat CMP over the following months (AST 53-117, ALT 63-104, Alk Phos 180-282, total bili 1.2-2.9). Patient underwent repeat biopsy on 01/17/24, which was consistent with acute rejection. Patient was instructed by Dr. Ayoub to present for initiation of inpatient pulse-dose steroids. On evaluation, Nithin reports several months of progressively worsening nausea, poor appetite, lethargy, intermittent RUQ pain, and frequent, loose, light-colored stools. He feels like he has lost a significant amount of weight but is unsure how much. Additionally notes episode of bilateral leg swelling about 1 week ago, which he states has never happened before. He denies any fever/chills, sick contacts, jaundice, SOB, chest pain, dysuria, vomiting, or blood in urine or stools. Reports being adherent with his IS regimen. Utilizes insulin pump for T1 diabetes. Past Medical History Past Medical History: Diagnosis Date Autoimmune hepatitis (Multi) 11/12/2020 Autoimmune hepatitis Drug induced constipation 12/28/2016 Drug-induced constipation Personal history of diseases of the skin and subcutaneous tissue 06/02/2016 History of acne Personal history of other diseases of the circulatory system 04/28/2016 History of essential hypertension Personal history of other endocrine, nutritional and metabolic disease 04/28/2016 History of type 1 diabetes mellitus Personal history of other endocrine, nutritional and metabolic disease 10/10/2018 History of hyperthyroidism Personal history of other endocrine, nutritional and metabolic disease 02/13/2018 History of thyroiditis Personal history of other endocrine, nutritional and metabolic disease 07/11/2017 History of vitamin D deficiency Right lower quadrant pain 12/28/2016 Abdominal pain, RLQ Surgical History Past Surgical History: Procedure Laterality Date OTHER SURGICAL HISTORY 04/28/2016 Liver Transplant US GUIDED NEEDLE LIVER BIOPSY 08/15/2017 US GUIDED NEEDLE LIVER BIOPSY 08/15/2017 [facility] US GUIDED NEEDLE LIVER BIOPSY 08/22/2017 US GUIDED NEEDLE LIVER BIOPSY 08/22/2017 [facility] US GUIDED NEEDLE LIVER BIOPSY 02/03/2023 US GUIDED NEEDLE LIVER BIOPSY 02/03/2023 [facility] Social History He reports that he has never smoked. He has never used smokeless tobacco. He reports that he does not drink alcohol and does not use drugs. Family History Family History Problem Relation Name Age of Onset No Known Problems Mother Allergies Red dye Review of Systems Constitutional: Positive for activity change, appetite change, fatigue and unexpected weight change. Negative for chills and fever. HENT: Negative. Eyes: Negative. Respiratory: Negative. Cardiovascular: Negative. Gastrointestinal: Positive for abdominal pain, diarrhea and nausea. Negative for blood in stool and vomiting. Endocrine: Negative. Genitourinary: Negative. Musculoskeletal: Negative. Skin: Negative. Neurological: Negative. Psychiatric/Behavioral: Negative. Physical Exam Constitutional: Comments: Thin male who appears stated age. Visibly fatigued but non-toxic appearing and in no acute distress HENT: Head: Normocephalic and atraumatic. Nose: Nose normal. Mouth/Throat: Mouth: Mucous membranes are moist. Pharynx: Oropharynx is clear. No posterior oropharyngeal erythema. Eyes: General: No scleral icterus. Extraocular Movements: Extraocular movements intact. Conjunctiva/sclera: Conjunctivae normal. Pupils: Pupils are equal, round, and reactive to light. Cardiovascular: Rate and Rhythm: Normal rate and regular rhythm. Pulses: Normal pulses. Heart sounds: Normal heart sounds. Pulmonary: Effort: Pulmonary effort is normal. No respiratory distress. Breath sounds: Normal breath sounds. Abdominal: General: Abdomen is flat. Palpations: Abdomen is soft. Comments: Well-healed surgical scar present over RUQ. Diffuse tenderness to palpation but no guarding or rebound Musculoskeletal: General: Normal range of motion. Cervical back: Normal range of motion and neck supple. Right lower leg: No edema. Left lower leg: No edema. Skin: General: Skin is warm and dry. Coloration: Skin is not jaundiced. Findings: No lesion or rash. Neurological: General: No focal deficit present. Mental Status: He is alert and oriented to person, place, and time. Psychiatric: Mood and Affect: Mood normal. Behavior: Behavior normal. Last Recorded Vitals Blood pressure 129/79, pulse 62, temperature 37 C (98.6 F), resp. rate 17, SpO2 98%. Relevant Results Most recent labs 01/04/24: CBC- WBC 4.9, Hgb 12.3, Plt 116 CMP-Na 138, K 3.7, Cl 103, BuN 18, Cr 0.91, Ca 8.9, Alb 3.4, Alk Phos 242, AST 93, ALT 81, total bilirubin 2.7 CMV PCR- not detected EBV PCR- not detected See above for surgical pathology Imaging: US LIVER WITH DOPPLER 01/09/2024 12:23 pm IMPRESSION: Doppler portion of this exam was within the limits of normal. There was mild nonspecific perihepatic ascites. Also, liver echogenicity was slightly increased and coarsened throughout and liver contours did appear to be slightly with nodular in places. An element of cirrhosis of the liver is not excluded by this exam. Clinical and laboratory correlation are needed. 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 #Hx of autoimmune hepatitis, s/p liver transplant (04/2016) #Concern for acute transplant rejection in setting of transaminitis #Nausea, RUQ discomfort -Per discussion with hepatology, will start 3 day course methylprednisolone (500 mg day 1, 250 mg day 2, 250 mg day 3) -PO PPI ppx -Will send baseline CBC, CMP, Mg, P, coag screen, blood cultures x2, UA with reflex culture, CMV PCR, EBV PCR -Tentatively plan for repeat biopsy Sunday 01/21 -Zofran PRN for nausea #Chronic immunosuppression -Per discussion with Dr. Ayoub, will continue home tacrolimus 0.5 mg BID, prednisone 1 mg daily, MMF 250 mg BID -Daily AM tacro levels F: PRN E: PRN N: regular diet GI: PO pantoprazole DVT ppx: pLov NOK: mother Bert [phone] Code status: full (confirmed on admission) Patti Darnell MD Associated attestation - Olivia Castaneda MD - 01/19/2024 3:20 PM EDT Attending addendum: I saw and evaluated the patient. I personally obtained the critical portions of the history and physical exam. The case was discussed in detail with the fellow; including, but not limited to the chief complaint, HPI, past history, physical findings, labs and radiological findings. I agree with the fellow's medical decision making as documented in the fellow's note. The patient was counseled on the possible differential diagnoses and testing needed to arrive at a diagnosis or a treatment plan. The patient is admitted to my service for rejection, status post liver transplant and immunosuppression. The patient was discussed with the multidisciplinary liver transplant team. He is followed in liver clinic by Dr. Sharan Ayoub. He has a history of autoimmune hepatitis and underwent liver transplant in April 2016. This was complicated by a bout of rejection in August 2017. After that, he did very well with no additional episodes of rejection. He had been maintained for many years on CellCept 250 mg every 12 hours and Prograf 2 mg in the AM and 1 mg in the PM and prednisone 1 mg daily. He did undergo a liver biopsy for some elevated LFTs around January 2023. The biopsy results were relatively nonspecific. His Prograf was decreased to 1 mg twice daily in August 2023 due to a high Prograf level. He was noted to have a high Prograf level in early 2023. In December 2023, his Prograf levels were decreased to 0.5 mg twice daily. After that, his liver enzymes were noted to be elevated. He underwent a liver biopsy which showed rejection and he is now admitted for this. Doppler ultrasound of the liver was unrevealing. The liver biopsy does suggest bridging fibrosis or stage 3 fibrosis. There was no comment on the biopsy in 2022 of a stage of fibrosis. This will need to be reviewed with the pathologist. For now, we will use a Solu-Medrol taper (500, 250, 250, 125, 125) and follow his LFTs. I would increase his Prograf back up to 1 mg twice daily. We will need to follow his LFTs and Prograf level and adjust the immunosuppression accordingly. Olivia Castaneda MD, FAAS, [facility] Machine Guide [employer] Winder, Hepatology Senior Attending Physician [facility] financial coordinator Division of Gastroenterology and Liver Disease [employer] [address] [place], [place] [id number] [facility] Work Phone: 01-19-2024 History and physical note History Of Present Illness Luly Giron is a 28 y.o. 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 Regarding patient's transplant history, he follows regularly with Dr. Ayoub. Appears to have had episode of mild to moderate allograft rejection in August of 2017, which was treated with a 3 day course of solumedrol. Has otherwise had a fairly uneventful post-transplant course, until January of 2023, when labs showed rising LFTs, with unclear etiology. CMV and EBV negative at that time, with liver biopsy suggestive of mild portal inflammation. Patient's LFTs remained mildly elevated on serial repeat CMP over the following months (AST 53-117, ALT 63-104, Alk Phos 180-282, total bili 1.2-2.9). Patient underwent repeat biopsy on 01/17/24, which was consistent with acute rejection. Patient was instructed by Dr. Ayoub to present for initiation of inpatient pulse-dose steroids. On evaluation, Nithin reports several months of progressively worsening nausea, poor appetite, lethargy, intermittent RUQ pain, and frequent, loose, light-colored stools. He feels like he has lost a significant amount of weight but is unsure how much. Additionally notes episode of bilateral leg swelling about 1 week ago, which he states has never happened before. He denies any fever/chills, sick contacts, jaundice, SOB, chest pain, dysuria, vomiting, or blood in urine or stools. Reports being adherent with his IS regimen. Utilizes insulin pump for T1 diabetes. Past Medical History Past Medical History: Diagnosis Date Autoimmune hepatitis (Multi) 11/12/2020 Autoimmune hepatitis Drug induced constipation 12/28/2016 Drug-induced constipation Personal history of diseases of the skin and subcutaneous tissue 06/02/2016 History of acne Personal history of other diseases of the circulatory system 04/28/2016 History of essential hypertension Personal history of other endocrine, nutritional and metabolic disease 04/28/2016 History of type 1 diabetes mellitus Personal history of other endocrine, nutritional and metabolic disease 10/10/2018 History of hyperthyroidism Personal history of other endocrine, nutritional and metabolic disease 02/13/2018 History of thyroiditis Personal history of other endocrine, nutritional and metabolic disease 07/11/2017 History of vitamin D deficiency Right lower quadrant pain 12/28/2016 Abdominal pain, RLQ Surgical History Past Surgical History: Procedure Laterality Date OTHER SURGICAL HISTORY 04/28/2016 Liver Transplant US GUIDED NEEDLE LIVER BIOPSY 08/15/2017 US GUIDED NEEDLE LIVER BIOPSY 08/15/2017 [facility] US GUIDED NEEDLE LIVER BIOPSY 08/22/2017 US GUIDED NEEDLE LIVER BIOPSY 08/22/2017 [facility] US GUIDED NEEDLE LIVER BIOPSY 02/03/2023 US GUIDED NEEDLE LIVER BIOPSY 02/03/2023 [facility] Social History He reports that he has never smoked. He has never used smokeless tobacco. He reports that he does not drink alcohol and does not use drugs. Family History Family History Problem Relation Name Age of Onset No Known Problems Mother Allergies Red dye Review of Systems Constitutional: Positive for activity change, appetite change, fatigue and unexpected weight change. Negative for chills and fever. HENT: Negative. Eyes: Negative. Respiratory: Negative. Cardiovascular: Negative. Gastrointestinal: Positive for abdominal pain, diarrhea and nausea. Negative for blood in stool and vomiting. Endocrine: Negative. Genitourinary: Negative. Musculoskeletal: Negative. Skin: Negative. Neurological: Negative. Psychiatric/Behavioral: Negative. Physical Exam Constitutional: Comments: Thin male who appears stated age. Visibly fatigued but non-toxic appearing and in no acute distress HENT: Head: Normocephalic and atraumatic. Nose: Nose normal. Mouth/Throat: Mouth: Mucous membranes are moist. Pharynx: Oropharynx is clear. No posterior oropharyngeal erythema. Eyes: General: No scleral icterus. Extraocular Movements: Extraocular movements intact. Conjunctiva/sclera: Conjunctivae normal. Pupils: Pupils are equal, round, and reactive to light. Cardiovascular: Rate and Rhythm: Normal rate and regular rhythm. Pulses: Normal pulses. Heart sounds: Normal heart sounds. Pulmonary: Effort: Pulmonary effort is normal. No respiratory distress. Breath sounds: Normal breath sounds. Abdominal: General: Abdomen is flat. Palpations: Abdomen is soft. Comments: Well-healed surgical scar present over RUQ. Diffuse tenderness to palpation but no guarding or rebound Musculoskeletal: General: Normal range of motion. Cervical back: Normal range of motion and neck supple. Right lower leg: No edema. Left lower leg: No edema. Skin: General: Skin is warm and dry. Coloration: Skin is not jaundiced. Findings: No lesion or rash. Neurological: General: No focal deficit present. Mental Status: He is alert and oriented to person, place, and time. Psychiatric: Mood and Affect: Mood normal. Behavior: Behavior normal. Last Recorded Vitals Blood pressure 129/79, pulse 62, temperature 37 C (98.6 F), resp. rate 17, SpO2 98%. Relevant Results Most recent labs 01/04/24: CBC- WBC 4.9, Hgb 12.3, Plt 116 CMP-Na 138, K 3.7, Cl 103, BuN 18, Cr 0.91, Ca 8.9, Alb 3.4, Alk Phos 242, AST 93, ALT 81, total bilirubin 2.7 CMV PCR- not detected EBV PCR- not detected See above for surgical pathology Imaging: US LIVER WITH DOPPLER 01/09/2024 12:23 pm IMPRESSION: Doppler portion of this exam was within the limits of normal. There was mild nonspecific perihepatic ascites. Also, liver echogenicity was slightly increased and coarsened throughout and liver contours did appear to be slightly with nodular in places. An element of cirrhosis of the liver is not excluded by this exam. Clinical and laboratory correlation are needed. 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 #Hx of autoimmune hepatitis, s/p liver transplant (04/2016) #Concern for acute transplant rejection in setting of transaminitis #Nausea, RUQ discomfort -Per discussion with hepatology, will start 3 day course methylprednisolone (500 mg day 1, 250 mg day 2, 250 mg day 3) -PO PPI ppx -Will send baseline CBC, CMP, Mg, P, coag screen, blood cultures x2, UA with reflex culture, CMV PCR, EBV PCR -Tentatively plan for repeat biopsy Sunday 01/21 -Zofran PRN for nausea #Chronic immunosuppression -Per discussion with Dr. Ayoub, will continue home tacrolimus 0.5 mg BID, prednisone 1 mg daily, MMF 250 mg BID -Daily AM tacro levels F: PRN E: PRN N: regular diet GI: PO pantoprazole DVT ppx: pLov NOK: mother Candis- [phone] Code status: full (confirmed on admission) Patti Darnell MD Associated attestation - Olivia Castaneda MD - 01/19/2024 3:20 PM EDT Attending addendum: I saw and evaluated the patient. I personally obtained the critical portions of the history and physical exam. The case was discussed in detail with the fellow; including, but not limited to the chief complaint, HPI, past history, physical findings, labs and radiological findings. I agree with the fellow's medical decision making as documented in the fellow's note. The patient was counseled on the possible differential diagnoses and testing needed to arrive at a diagnosis or a treatment plan. The patient is admitted to my service for rejection, status post liver transplant and immunosuppression. The patient was discussed with the multidisciplinary liver transplant team. He is followed in liver clinic by Dr. Sharan Ayoub. He has a history of autoimmune hepatitis and underwent liver transplant in April 2016. This was complicated by a bout of rejection in August 2017. After that, he did very well with no additional episodes of rejection. He had been maintained for many years on CellCept 250 mg every 12 hours and Prograf 2 mg in the AM and 1 mg in the PM and prednisone 1 mg daily. He did undergo a liver biopsy for some elevated LFTs around January 2023. The biopsy results were relatively nonspecific. His Prograf was decreased to 1 mg twice daily in August 2023 due to a high Prograf level. He was noted to have a high Prograf level in early 2023. In December 2023, his Prograf levels were decreased to 0.5 mg twice daily. After that, his liver enzymes were noted to be elevated. He underwent a liver biopsy which showed rejection and he is now admitted for this. Doppler ultrasound of the liver was unrevealing. The liver biopsy does suggest bridging fibrosis or stage 3 fibrosis. There was no comment on the biopsy in 2022 of a stage of fibrosis. This will need to be reviewed with the pathologist. For now, we will use a Solu-Medrol taper (500, 250, 250, 125, 125) and follow his LFTs. I would increase his Prograf back up to 1 mg twice daily. We will need to follow his LFTs and Prograf level and adjust the immunosuppression accordingly. Olivia Castaneda MD, FAASLD, [facility] Machine Guide Base Winder, Hepatology Senior Attending Physician [facility] [place] financial coordinator Division of Gastroenterology and Liver Disease [employer] [address] [place] [phone] documented in this encounter [facility] Work Phone: 01-19-2024 Consult note Formatting of th is note is different from the original. Nutrition Initial Assessment: Nutrition Assessment Reason for Assessment: Admission nursing screening Patient is a 28 y.o. 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 Nutrition History: Energy Intake: Fair 50-75 % Food and Nutrient History: Pt reports decreased appteite secondary to early satiety and feelings of fullness over the last several months. Does not currently consume oral nutritional supplements but is willing to try-- prefers vanilla. Reports UBW to be ~59 kg. Food Allergies/Intolerances: None GI Symptoms: early satiety Oral Problems: None Anthropometrics: Height: 177.8 cm (5' 10 ) Weight: 55.5 kg (122 lb 4.8 oz) BMI (Calculated): 17.55 IBW/kg (Dietitian Calculated): 75.5 kg Weight History: Wt Readings from Last 4 Encounters: 01/19/24 55.5 kg (122 lb 4.8 oz) 08/03/23 59.2 kg (130 lb 8 oz) 05/03/23 58.5 kg (129 lb) 01/26/23 58.1 kg (128 lb) Weight Change %: wt loss of 6.3% x5 months Nutrition Focused Physical Exam Findings: Subcutaneous Fat Loss: Orbital Fat Pads: Mild-Moderate (slight dark circles and slight hollowing) Buccal Fat Pads: Mild-Moderate (flat cheeks, minimal bounce) Triceps: Mild-Moderate (less than ample fat tissue) Muscle Wasting: Temporalis: Mild-Moderate (slight depression) Pectoralis (Clavicular Region): Mild-Moderate (some protrusion of clavicle) Deltoid/Trapezius: Mild-Moderate (slight protrusion of acromion process) Interosseous: Mild-Moderate (slightly depressed area between thumb and forefinger) Trapezius/Infraspinatus/Supraspin atus (Scapular Region): Mild-Moderate (slight protrusion of scapula) Edema: Edema: none Nutrition Significant Labs: BG POCT trend: Results from last 7 days Lab Units 01/19/24 1114 01/19/24 0757 POCT GLUCOSE mg/dL 344* 265* , Renal Lab Trend: Results from last 7 days Lab Units 01/19/24 0727 01/18/24 2122 POTASSIUM mmol/L 4.6 3.6 PHOSPHORUS mg/dL 2.5 4.2 SODIUM mmol/L 136 139 MAGNESIUM mg/dL 2.27 1.49* EGFR mL/min/1.73m*2 >90 >90 BUN mg/dL 19 19 CREATININE mg/dL 0.88 0.91 Nutrition Specific Medications: Scheduled medications insulin NPH (Isophane), 15 Units, subcutaneous, Once Insulin, , pump - subcutaneous, Continuous Pump methylPREDNISolone sodium succinate (PF), 250 mg, intravenous, Once [START ON 01/20/2024] methylPREDNISolone sodium succinate (PF), 250 mg, intravenous, Once mycophenolate, 250 mg, oral, q12h pantoprazole, 40 mg, oral, Daily before breakfast [Held by provider] predniSONE, 1 mg, oral, Daily tacrolimus, 0.5 mg, oral, 2 times per day I/O: ; Dietary Orders (From admission, onward) Start Ordered 01/19/24 0655 Adult diet Carb Controlled; 75 gram carb/meal, 45 gram Carb evening snack Diet effective now Question Answer Comment Diet type Carb Controlled Carb diet selection: 75 gram carb/meal, 45 gram Carb evening snack 01/19/24 0655 01/18/242140 May Participate in Room Service Once Question: . Answer: Yes 01/18/242141 Estimated Needs: Total Energy Estimated Needs (kCal): (8295-4516) Method for Estimating Needs: 30-35 kcal/kg actual wt Total Protein Estimated Needs (g): (70-80) Method for Estimating Needs: 1.3-1.5 g/kg actual wt Total Fluid Estimated Needs (mL): (per medical team) Nutrition Diagnosis Malnutrition Diagnosis Patient has Malnutrition Diagnosis: Yes Diagnosis Status: New Malnutrition Diagnosis: Moderate malnutrition related to chronic disease or condition As Evidenced by: mild to moderate muscle loss, subuctaneous fat loss, and oral intake meeting likely <75% estimated energy needs >1 month. Nutrition Interventions/Recommendations Nutrition Prescription: Individualized Nutrition Prescription Provided for : oral diet + oral nutritional supplement Nutrition Interventions: Continue with diabetic diet as ordered Will add Ensure High Protein BID (160 kcal, 16 g protein each) Nutrition Monitoring and Evaluation Food/Nutrient Related History Monitoring Monitoring and Evaluation Plan: Energy intake Energy Intake: Estimated energy intake Criteria: Pt will consume >/= 60% energy/protein needs from diet + oral nutritional supplements Biochemical Data, Medical Tests and Procedures Monitoring and Evaluation Plan: Electrolyte/renal panel, Glucose/endocrine profile Criteria: lytes wnl Criteria: POC glucose <180 mg/dl Time Spent/Follow-up Reminder: Time Spent (min): 45 minutes Last Date of Nutrition Visit: 01/19/24 Nutrition Follow-Up Needed?: Dietitian to reassess per policy Follow up Comment: diet + ONS [facility] 01-19-2024 Consult note Formatting of th is note is different from the original. Nutrition Initial Assessment: Nutrition Assessment Reason for Assessment: Admission nursing screening Patient is a 28 y.o. 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 Nutrition History: Energy Intake: Fair 50-75 % Food and Nutrient History: Pt reports decreased appteite secondary to early satiety and feelings of fullness over the last several months. Does not currently consume oral nutritional supplements but is willing to try-- prefers vanilla. Reports UBW to be ~59 kg. Food Allergies/Intolerances: None GI Symptoms: early satiety Oral Problems: None Anthropometrics: Height: 177.8 cm (5' 10 ) Weight: 55.5 kg (122 lb 4.8 oz) BMI (Calculated): 17.55 IBW/kg (Dietitian Calculated): 75.5 kg Weight History: Wt Readings from Last 4 Encounters: 01/19/24 55.5 kg (122 lb 4.8 oz) 08/03/23 59.2 kg (130 lb 8 oz) 05/03/23 58.5 kg (129 lb) 01/26/23 58.1 kg (128 lb) Weight Change %: wt loss of 6.3% x5 months Nutrition Focused Physical Exam Findings: Subcutaneous Fat Loss: Orbital Fat Pads: Mild-Moderate (slight dark circles and slight hollowing) Buccal Fat Pads: Mild-Moderate (flat cheeks, minimal bounce) Triceps: Mild-Moderate (less than ample fat tissue) Muscle Wasting: Temporalis: Mild-Moderate (slight depression) Pectoralis (Clavicular Region): Mild-Moderate (some protrusion of clavicle) Deltoid/Trapezius: Mild-Moderate (slight protrusion of acromion process) Interosseous: Mild-Moderate (slightly depressed area between thumb and forefinger) Trapezius/Infraspinatus/Supraspin atus (Scapular Region): Mild-Moderate (slight protrusion of scapula) Edema: Edema: none Nutrition Significant Labs: BG POCT trend: Results from last 7 days Lab Units 01/19/24 1114 01/19/24 0757 POCT GLUCOSE mg/dL 344* 265* , Renal Lab Trend: Results from last 7 days Lab Units 01/19/24 0727 01/18/24 2122 POTASSIUM mmol/L 4.6 3.6 PHOSPHORUS mg/dL 2.5 4.2 SODIUM mmol/L 136 139 MAGNESIUM mg/dL 2.27 1.49* EGFR mL/min/1.73m*2 >90 >90 BUN mg/dL CREATININE mg/dL 0.88 0.91 Nutrition Specific Medications: Scheduled medications insulin NPH (Isophane), 15 Units, subcutaneous, Once Insulin, , pump - subcutaneous, Continuous Pump methylPREDNISolone sodium succinate (PF), 250 mg, intravenous, Once [START ON 01/20/2024] methylPREDNISolone sodium succinate (PF), 250 mg, intravenous, Once mycophenolate, 250 mg, oral, q12h pantoprazole, 40 mg, oral, Daily before breakfast [Held by provider] predniSONE, 1 mg, oral, Daily tacrolimus, 0.5 mg, oral, 2 times per day I/O: ; Dietary Orders (From admission, onward) Start Ordered 01/19/24 0655 Adult diet Carb Controlled; 75 gram carb/meal, 45 gram Carb evening snack Diet effective now Question Answer Comment Diet type Carb Controlled Carb diet selection: 75 gram carb/meal, 45 gram Carb evening snack 01/19/24 0655 01/18/242140 May Participate in Room Service Once Question: . Answer: Yes 01/18/242141 Estimated Needs: Total Energy Estimated Needs (kCal): (8075-1959) Method for Estimating Needs: 30-35 kcal/kg actual wt Total Protein Estimated Needs (g): (70-80) Method for Estimating Needs: 1.3-1.5 g/kg actual wt Total Fluid Estimated Needs (mL): (per medical team) Nutrition Diagnosis Malnutrition Diagnosis Patient has Malnutrition Diagnosis: Yes Diagnosis Status: New Malnutrition Diagnosis: Moderate malnutrition related to chronic disease or condition As Evidenced by: mild to moderate muscle loss, subuctaneous fat loss, and oral intake meeting likely <75% estimated energy needs >1 month. Nutrition Interventions/Recommendations Nutrition Prescription: Individualized Nutrition Prescription Provided for : oral diet + oral nutritional supplement Nutrition Interventions: Continue with diabetic diet as ordered Will add Ensure High Protein BID (160 kcal, 16 g protein each) Nutrition Monitoring and Evaluation Food/Nutrient Related History Monitoring Monitoring and Evaluation Plan: Energy intake Energy Intake: Estimated energy intake Criteria: Pt will consume >/= 60% energy/protein needs from diet + oral nutritional supplements Biochemical Data, Medical Tests and Procedures Monitoring and Evaluation Plan: Electrolyte/renal panel, Glucose/endocrine profile Criteria: lytes wnl Criteria: POC glucose <180 mg/dl Time Spent/Follow-up Reminder: Time Spent (min): 45 minutes Last Date of Nutrition Visit: 01/19/24 Nutrition Follow-Up Needed?: Dietitian to reassess per policy Follow up Comment: diet + ONS Associated Order(s): Inpatient consult to Endocrinology Inpatient consult to Endocrinology Consult performed by: Monserrat Estrada MD Consult ordered by: Yung Montesinos MD Reason For Consult Insulin pump History Of Present Illness Luly Giron is a 28 y.o. 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 We are being consulted for dm management . 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 Results from Most Recent A1C Hemoglobin A1C Date/Time Value Ref Range Status 01/19/2024 07:27 AM 6.4 (H) see below % Final Results from last 7 days Lab Units 01/19/24 0727 HEMOGLOBIN A1C % 6.4* SODIUM mmol/L 136 POTASSIUM mmol/L 4.6 CHLORIDE mmol/L 101 CO2 mmol/L 27 BUN mg/dL 19 CREATININE mg/dL 0.88 CALCIUM mg/dL 8.8 ALBUMIN g/dL 3.1* PROTEIN TOTAL g/dL 7.0 BILIRUBIN TOTAL mg/dL 2.3* ALK PHOS U/L 271* ALT U/L 83* AST U/L 84* GLUCOSE mg/dL 262* No data recorded Lab Results Component Value Date HGBA1C 6.4 (H) 01/19/2024 HGBA1C 6.8 08/21/2017 HGBA1C 6.2 08/18/2017 NA 136 01/19/2024 K 4.6 01/19/2024 CL 101 01/19/2024 CO2 27 01/19/2024 BUN 19 01/19/2024 CREATININE 0.88 01/19/2024 CALCIUM 8.8 01/19/2024 ALBUMIN 3.1 (L) 01/19/2024 PROT 7.0 01/19/2024 BILITOT 2.3 (H) 01/19/2024 ALKPHOS 271 (H) 01/19/2024 ALT 83 (H) 01/19/2024 AST 84 (H) 01/19/2024 GLUCOSE 262 (H) 01/19/2024 [id number] 0.09 (H) 08/18/2017 Diabetes Problem List Entries with Dates Problem List: 2016-05: Type 1 diabetes mellitus (Multi) Past Medical History He has a past medical history of Autoimmune hepatitis (Multi) (11/12/2020), Drug induced constipation (12/28/2016), Personal history of diseases of the skin and subcutaneous tissue (06/02/2016), Personal history of other diseases of the circulatory system (04/28/2016), Personal history of other endocrine, nutritional and metabolic disease (04/28/2016), Personal history of other endocrine, nutritional and metabolic disease (10/10/2018), Personal history of other endocrine, nutritional and metabolic disease (02/13/2018), Personal history of other endocrine, nutritional and metabolic disease (07/11/2017), and Right lower quadrant pain (12/28/2016). Surgical History He has a past surgical history that includes Other surgical history (04/28/2016); US guided needle liver biopsy (08/15/2017); US guided needle liver biopsy (08/22/2017); and US guided needle liver biopsy (02/03/2023). Social History He reports that he has never smoked. He has never used smokeless tobacco. He reports that he does not drink alcohol and does not use drugs. Family History Family History Problem Relation Name Age of Onset No Known Problems Mother Allergies Red dye Review of Systems Physical Exam PE: Constitutional: NAD, well groomed. AOx3. Cooperative Skin/Hair: Warm, dry skin. Dexcom and medtronic in place on thigh HEENT: EOMI, Anicteric scleras Neck: Soft, supple Cardiovascular: normal HR Respiratory: no increased wob, accessory muscle use. Abdomen - soft , nondistended Psych : appropriate affect ROS, PMH, FH/SH, surgical history and allergies have been reviewed. Last Recorded Vitals Blood pressure 126/74, pulse 81, temperature 36.8 C (98.2 F), resp. rate 19, height 1.778 m (5' 10 ), weight 55.5 kg (122 lb 4.8 oz), SpO2 97%. Relevant Results Results from last 7 days Lab Units 01/19/24 1455 01/19/24 1114 01/19/24 0757 01/19/24 0727 01/18/24 2122 POCT GLUCOSE mg/dL 351* 344* 265* -- -- GLUCOSE mg/dL -- -- -- 262* 179* Assessment/Plan Principal Problem: Acute rejection of liver transplant (Multi) History Of Present Illness Luly Giron is a 28 y.o. 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 We are being consulted for dm management . 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 : seeing pcp at [facility] per pt DM Home meds- medtronic 670G pump Accuchecks/ CGM - dexcom G7 Inpt steroid plan Steroids - takes 1 mg daily prednisone 3 day course IV methylprednisolone 01/17:500 mg day 1, 01/18: 250 mg day 2, 01/19: 250 mg day 3 Diet - carb consistent Recommendations - Okay to use pump while inpt, forms signed - nph 25 units 30 min before IV MP dose tonight Insulin pump settings changed as follows Basal rates: 0000 - 0000: 0.5 Carbohydrate ratio: 0000 - 0000: 12-->9 Insulin sensitivity: 0000 - 0000: 50-->40 - Lispro #2 sliding scale TIDAC (added on as patient BS in high 300s depsite giving himself corrections ) - Have asked him to give correction via pump q3hrs today - Pt able to count carbs and enter into pump prior to meals - Accu-Cheks 3 times daily AC and nightly -Hypoglycemia protocol -Carb consistent diet (75 g) Discharge follow up- He can follow up in [facility] with PCP Monserrat Estrada MD Endocrinology, PGY 5 Pager [phone] or secure chat Associated attestation - Quentin Buckley MD PhD - 01/19/2024 7:58 PM EDT I saw and evaluated the patient. I personally obtained the stone and critical portions of the history and physical exam or was physically present for stone and critical portions performed by the resident/fellow. I reviewed the resident/fellow's documentation and discussed the patient with the resident/fellow. I agree with the resident/fellow's medical decision making as documented in the note. documented in this encounter [facility] Work Phone: 01-19-2024 Consult note Associated Order (s): Inpatient consult to Endocrinology Inpatient consult to Endocrinology Consult performed by: Monserrat Estrada MD Consult ordered by: Yung Montesinos MD Reason For Consult Insulin pump History Of Present Illness Luly Giron is a 28 y.o. 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 We are being consulted for dm management . 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 Results from Most Recent A1C Hemoglobin A1C Date/Time Value Ref Range Status 01/19/2024 07:27 AM 6.4 (H) see below % Final Results from last 7 days Lab Units 01/19/24 0727 HEMOGLOBIN A1C % 6.4* SODIUM mmol/L 136 POTASSIUM mmol/L 4.6 CHLORIDE mmol/L 101 CO2 mmol/L 27 BUN mg/dL 19 CREATININE mg/dL 0.88 CALCIUM mg/dL 8.8 ALBUMIN g/dL 3.1* PROTEIN TOTAL g/dL 7.0 BILIRUBIN TOTAL mg/dL 2.3* ALK PHOS U/L 271* ALT U/L 83* AST U/L 84* GLUCOSE mg/dL 262* No data recorded Lab Results Component Value Date HGBA1C 6.4 (H) 01/19/2024 HGBA1C 6.8 08/21/2017 HGBA1C 6.2 08/18/2017 NA 136 01/19/2024 K 4.6 01/19/2024 CL 101 01/19/2024 CO2 27 01/19/2024 BUN 19 01/19/2024 CREATININE 0.88 01/19/2024 CALCIUM 8.8 01/19/2024 ALBUMIN 3.1 (L) 01/19/2024 PROT 7.0 01/19/2024 BILITOT 2.3 (H) 01/19/2024 ALKPHOS 271 (H) 01/19/2024 ALT 83 (H) 01/19/2024 AST 84 (H) 01/19/2024 GLUCOSE 262 (H) 01/19/2024 [id number] 0.09 (H) 08/18/2017 Diabetes Problem List Entries with Dates Problem List: 2016-05: Type 1 diabetes mellitus (Multi) Past Medical History He has a past medical history of Autoimmune hepatitis (Multi) (11/12/2020), Drug induced constipation (12/28/2016), Personal history of diseases of the skin and subcutaneous tissue (06/02/2016), Personal history of other diseases of the circulatory system (04/28/2016), Personal history of other endocrine, nutritional and metabolic disease (04/28/2016), Personal history of other endocrine, nutritional and metabolic disease (10/10/2018), Personal history of other endocrine, nutritional and metabolic disease (02/13/2018), Personal history of other endocrine, nutritional and metabolic disease (07/11/2017), and Right lower quadrant pain (12/28/2016). Surgical History He has a past surgical history that includes Other surgical history (04/28/2016); US guided needle liver biopsy (08/15/2017); US guided needle liver biopsy (08/22/2017); and US guided needle liver biopsy (02/03/2023). Social History He reports that he has never smoked. He has never used smokeless tobacco. He reports that he does not drink alcohol and does not use drugs. Family History Family History Problem Relation Name Age of Onset No Known Problems Mother Allergies Red dye Review of Systems Physical Exam PE: Constitutional: NAD, well groomed. AOx3. Cooperative Skin/Hair: Warm, dry skin. Dexcom and medtronic in place on thigh HEENT: EOMI, Anicteric scleras Neck: Soft, supple Cardiovascular: normal HR Respiratory: no increased wob, accessory muscle use. Abdomen - soft , nondistended Psych : appropriate affect ROS, PMH, FH/SH, surgical history and allergies have been reviewed. Last Recorded Vitals Blood pressure 126/74, pulse 81, temperature 36.8 C (98.2 F), resp. rate 19, height 1.778 m (5' 10 ), weight 55.5 kg (122 lb 4.8 oz), SpO2 97%. Relevant Results Results from last 7 days Lab Units 01/19/24 1455 01/19/24 1114 01/19/24 0757 01/19/24 0727 01/18/24 2122 POCT GLUCOSE mg/dL 351* 344* 265* -- -- GLUCOSE mg/dL -- -- -- 262* 179* Assessment/Plan Principal Problem: Acute rejection of liver transplant (Multi) History Of Present Illness Luly Giron is a 28 y.o. 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 We are being consulted for dm management . 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 : seeing pcp at [facility] per pt DM Home meds- medtronic 670G pump Accuchecks/ CGM - dexcom G7 Inpt steroid plan Steroids - takes 1 mg daily prednisone 3 day course IV methylprednisolone 01/17:500 mg day 1, 01/18: 250 mg day 2, 01/19: 250 mg day 3 Diet - carb consistent Recommendations - Okay to use pump while inpt, forms signed - nph 25 units 30 min before IV MP dose tonight Insulin pump settings changed as follows Basal rates: 0000 - 0000: 0.5 Carbohydrate ratio: 0000 - 0000: 12-->9 Insulin sensitivity: 0000 - 0000: 50-->40 - Lispro #2 sliding scale TIDAC (added on as patient BS in high 300s depsite giving himself corrections ) - Have asked him to give correction via pump q3hrs today - Pt able to count carbs and enter into pump prior to meals - Accu-Cheks 3 times daily AC and nightly -Hypoglycemia protocol -Carb consistent diet (75 g) Discharge follow up- He can follow up in [facility] with PCP Monserrat Estrada MD Endocrinology, PGY 5 Pager [phone] or secure chat Associated attestation - Quentin Buckley MD PhD - 01/19/2024 7:58 PM EDT I saw and evaluated the patient. I personally obtained the stone and critical portions of the history and physical exam or was physically present for stone and critical portions performed by the resident/fellow. I reviewed the resident/fellow's documentation and discussed the patient with the resident/fellow. I agree with the resident/fellow's medical decision making as documented in the note. [facility] Work Phone: 01-18-2024 Note Formatting of this n ote is different from the original. Senior staffing note Please see the excellent design engineering intern note for the comprehensive H&P. HPI Mr. Giron is a 28 y.o. M with PMHx of DM type 1, autoimmune hepatitis s/p OLT (04/2016 here at ) complicated by mild rejection (COULTER score=4) as shown by IR US guided percutaneous liver biopsy, right lobe (01/17/24). Patient reports feeling fatigued, low appetite, weight loss for the pas few moths. Has intermittent nausea, but no vomiting, and RUQ sharp pain that resolves spontaneously. Reports diarrhea with yellow stool. Denies any juandice, but did have lower extremity pruritus and some leg edema a few days ago, that eventually resolved. Has intermittent headaches as well. He denies any alcohol use, no recreation drug use. Otherwise denies chest pain, SOB, no urinary complaints. He had his dose of Tacrolimus decreased from 1 to 0.5 mg BID a few weeks ago due to supra therapeutic level. Of note: in Aug 2017 his condition was complicated by mild to moderate allograft rejection treated with 3 days of Solu-Medrol (CMV D+/R+, EBV D+/R+). 12 point ROS performed and was negative, except as mentioned ain the HPI. Allergies Allergen Reactions Red Dye Anaphylaxis, Angioedema and Swelling Other Reaction(s): Swelling of Lip/Tongue/Throat Hepatology Hx: Microbiologic data 02/20/23- Whole blood EBV PCR is 5743 copies / ml 02/20/23-plasma CMV PCR is negative 12/19/23 - LIVER, RIGHT LOBE, NEEDLE-CORE BIOPSY: - Suboptimal biopsy specimen with: i. Mild portal and lobular inflammation (see comment). ii. 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 Microscopic Description The biopsy specimen consists of one core of hepatic parenchyma measuring approximately 0.8 cm in length with only two definitive portal tracts identified. The portal tracts show a mixed inflammatory infiltrate comprised of lymphocytes, histiocytes, neutrophils, plasma cells, and eosinophils. Mild interface activity is present. The bile duct show reactive changes including mild nuclear disarray and cytoplasmic eosinophilia. Scattered foci of lobular inflammation and prominent Kupffer cell hyperplasia are present. Rare single cell hepatocyte apoptosis is identified. No significant steatosis is seen. CK7 stain shows prominent hepatocyte ductular metaplasia. CK19 highlights bile ducts and ductules. Trichrome stain shows mild portal and prominent perisinusoidal fibrosis. Reticulin stain shows preserved reticulin framework. PAS-diastase shows scattered portal and lobular ceroid-laden macrophages; no evidence of alpha-1 antitrypsin globules is seen. Iron stain is negative. 01/17/24 A. LIVER TRANSPLANT BIOPSY: -- Liver with bile duct injury, portal inflammation, endotheliitis (COULTER score=4) and lobular inflammation, see note Note: Sections show liver parenchyma with focal bridging fibrosis. Portal tracts show inflammatory cells composed of lymphocytes, with bile duct injury and endotheliitis. Lobular inflammation is evident with predominantly lymphocytes and some plasma cells. Sinusoidal infiltration by lymphocytes is present. Endothelitiitis is also seen in central venule. Iron stain is negative, PAS-D stain is negative. 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 The overall histological findings are suggestive of acute cellular rejection with sinsusoidal and hepatitic patterns of injury. CK7, CK19 and C4d immunstains have been ordered and results will be reported in addendum. Rejection Activity Index (COULTER score) Portal inflammation (0-3) 1 Bile duct inflammation/damage (0-3) 2 Venous endothelial inflammation (0-3) 1 Total COULTER = 4/9 Doppler liver US (01/03/24) IMPRESSION: Doppler portion of this exam was within the limits of normal. There was mild nonspecific perihepatic ascites. Also, liver echogenicity was slightly increased and coarsened throughout and liver contours did appear to be slightly with nodular in places. An element of cirrhosis of the liver is not excluded by this exam. Clinical and laboratory correlation are needed. Mild splenomegaly. Nonobstructing stones in both kidneys. Previous cholecystectomy. Current Outpatient Medications: amLODIPine (Norvasc) 5 mg tablet, Take 1 tablet (5 mg) by mouth once daily., Disp: , Rfl: aspirin 81 mg EC tablet, Take 1 tablet (81 mg) by mouth once daily., Disp: , Rfl: insulin lispro (HumaLOG) 100 unit/mL injection, INJECT 50 UNITS PER PUMP DIRECTED ONCE DAILY, Disp: , Rfl: lancets 33 gauge misc, Test blood sugars 5 times daily as directed, Disp: , Rfl: magnesium oxide (Mag-Ox) 400 mg (241.3 mg magnesium) tablet, Take 1 tablet (400 mg) by mouth 2 times a day., Disp: 180 tablet, Rfl: 3 multivit-min/ferrous fumarate (MULTI VITAMIN ORAL), Take 1 tablet by mouth once daily., Disp: , Rfl: mycophenolate (Cellcept) 250 mg capsule, Take 1 capsule (250 mg) by mouth every 12 hours., Disp: 180 capsule, Rfl: 3 OneTouch Ultra Test strip, Test 4 times daily, Disp: , Rfl: predniSONE (Deltasone) 1 mg tablet, Take 1 tablet (1 mg) by mouth once daily., Disp: , Rfl: tacrolimus (Prograf) 0.5 mg capsule, Take 1 capsule (0.5 mg) by mouth 2 times a day., Disp: 180 capsule, Rfl: 3 Results for orders placed or performed during the hospital encounter of 01/17/24 (from the past 96 hour(s)) Surgical Pathology Exam Result Value Ref Range Case Report Surgical Pathology Case: [id number] Authorizing Provider: Татьяна Eid MD Collected: 01/17/2024 1000 Ordering Location: [facility] Received: 01/17/2024 [facility] Pathologist: Kenn Diaz MD Specimen: LIVER TRANSPLANT BIOPSY FINAL DIAGNOSIS A. LIVER TRANSPLANT BIOPSY: -- Liver with bile duct injury, portal inflammation, endotheliitis (COULTER score=4) and lobular inflammation, see note Note: Sections show liver parenchyma with focal bridging fibrosis. Portal tracts show inflammatory cells composed of lymphocytes, with bile duct injury and endotheliitis. Lobular inflammation is evident with predominantly lymphocytes and some plasma cells. Sinusoidal infiltration by lymphocytes is present. Endothelitiitis is also seen in central venule. Iron stain is negative, PAS-D stain is negative. 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 The overall histological findings are suggestive of acute cellular rejection with sinsusoidal and hepatitic patterns of injury. CK7, CK19 and C4d immunstains have been ordered and results will be reported in addendum. Rejection Activity Index (COULTER score) Portal inflammation (0-3) 1 Bile duct inflammation/damage (0-3) 2 Venous endothelial inflammation (0-3) 1 Total COULTER = 4/9 By the signature on this report, the individual or group listed as making the Final Interpretation/Diagnosis certifies that they have reviewed this case. Comment Preliminary result was communicated to Dr.Pierre Ayoub at 5:20 pm on 01/17/2024 by email. Clinical History Hx liver transplant 04/08/2016, new findings on US suggestive of cirrhosis. AKP 242, AST 93 and ALT 81 on 01/04/04. ACR in 2017. Gross Description Received in formalin, labeled with the patient's name and hospital number and liver transplant , are 2 cylindrical segments of stevenson-red soft tissue measuring 1.7 cm and 1.7 cm in length by < 0.1 cm in diameter. The specimen is submitted in toto in 1 cassette. [facility] Disclaimer One or more of the reagents used to perform assays on this specimen MAY have contained components considered to be analyte specific reagents (ASR's). ASR's have not been cleared or approved by the U.S. Food and Drug Administration. These assays were developed and their performance characteristics determined by the Department of Pathology at [facility]. The FDA does not require this test to go through premarket FDA review. This test is used for clinical purposes. It should not be regarded as investigational or for research. This laboratory is certified under the Clinical Laboratory Improvement Amendments (CLIA) as qualified to perform high complexity clinical laboratory testing. The assays were performed with appropriate positive and negative controls which stained appropriately. No results found for this or any previous visit (from the past 24 hour(s)). Vitals: 01/18/242022 BP: 129/79 Pulse: 62 Resp: 17 Temp: 37 C (98.6 F) SpO2: 98% Physical exam: Constitutional: He is oriented to person, place, and time. He appears well-developed and well-nourished. No distress. HENT: Eyes: Conjunctivae are normal. No jaundice. Cardiovascular: Normal rate, regular rhythm and normal heart sounds. Lung: Effort normal and breath sounds normal. No respiratory distress. He has no wheezes or rales. Abdominal: Soft. Bowel sounds are normal. He exhibits no distension. There is no tenderness. There is no rebound and no guarding. Neurological: He is alert and oriented to person, place, and time. Skin: Skin is warm and dry. Psychiatric: He has a normal mood and affect. Assessment & Plan: Mr. Giron is a 28 y.o. M with PMHx of DM type 1, autoimmune hepatitis s/p OLT (04/2016 here at ) complicated by mild rejection (COULTER score=4) as shown by IR US guided percutaneous liver biopsy, right lobe (01/17/24). He is following up with Dr. Ayoub outpatient, and was instructed to be admitted for pulse steroids after the results of liver biopsy showed acute rejection of liver transplant. Has been having elevated LFTs for the past few months. Liver US showed Doppler portion was within the limits of normal. There was mild nonspecific perihepatic ascites and possible cirrhosis of the liver. Will start steroids, and obtain LFT's + tacro level tomorrow. # Autoimmune hepatitis s/p OLT (04/2016) complicated by acute mild to moderate rejection (COULTER score=4) # Transaminases # Hyperbilirubinemia :: Most recent plasma EBV PCR's are undetectable. :: HSV and CMV staining on previous liver biopsy specimen was negative. :: 12/19/23: LIVER, RIGHT LOBE, NEEDLE-CORE BIOPSY: Suboptimal biopsy specimen with Mild portal and lobular inflammation (see comment). 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 :: 01/17/24: LIVER TRANSPLANT BIOPSY: Liver with bile duct injury, portal inflammation, endotheliitis (COULTER score=4) and lobular inflammation. The overall histological findings are suggestive of acute cellular rejection with sinsusoidal and hepatitic patterns of injury. :: 01/04/24 - CMV DNA and EBV DNA was negative :: Doppler liver US (01/03/24): Doppler portion of this exam was within the limits of normal. There was mild nonspecific perihepatic ascites. An element of cirrhosis of the liver is not excluded by this exam. :: Tacro level 01/03 WANL 6.3 :: Tacro dose was recently decreased from 1 mg to 0.5 mg BID due to supratherautic levels :: AST 83-> 116-> 117-> 93 (01/03) :: ALT 77 -> 93 -> 91 -> 104-> 81 :: Alk phos 184 -> 235 -> 244-> 252 -> 242 :: Tbili 2-> 2.5-> 2.9 -> 2.7 (01/03) - Keep the same tacro dose - Started Pantoprazole po for GI ppx [ ] F/up AM labs and tacro level [ ] F/up CMV and EBV serology - Steroid taper per Dr. Ayoub: Days #1-3 = MP 500mg IV x 1 dose (DAY 1) MP 250mg IV x 1 dose (DAY 2) MP 250mg IV x 1 dose (DAY 3) - Needs to get repeat biopsy on Monday. # Type 1 DM - On Insulin pump at home, not sure of what his dose is - Endocrinology was consulted for management and transition to subcutaneous regimen N: diabetic diet A: PIV DVT ppx: Lovenox GI ppx: Pantoprazole Code Status: FULL CODE (confirmed on admission) Surrogate Medical Decision-maker: Candis (mother) [phone] [facility] Work Phone: 01-17-2024 Miscellaneous Notes Interventional Radiology Brief Postprocedure Note Attending: Dr. Татьяна Eid MD Transmission Maintenance Supervisor: Zhane Vaughan MD Diagnosis: Liver transplant Description of procedure: A total of 2 passes were made into the right hepatic lobe lesion under ultrasound guidance using a 18 Gauge needle passed through a 17 gauge coaxial system. Scanning after each pass demonstrated no bleeding. Specimens were sent to pathology for further analysis. See PACS for full procedural report. Anesthesia: Local, Fentanyl & Versed Complications: None Estimated Blood Loss: minimal Medications (Filter: Administrations occurring from 0947 to 1004 on 01/17/24) As of 01/17/24 1004 fentaNYL PF (Sublimaze) injection (mcg) Total dose: 50 mcg Date/Time Rate/Dose/Volume Action 01/17/24 0950 50 mcg Given midazolam (Versed) injection (mg) Total dose: 1 mg Date/Time Rate/Dose/Volume Action 01/17/24 0950 1 mg Given See detailed result report with images in PACS. The patient tolerated the procedure well without incident or complication and is in stable condition. Associated Татьяна Winters MD - 01/17/2024 1:08 PM EDT I was present for the entire procedure documented in this encounter [facility] Work Phone: 01-17-2024 Note Formatting of this n ote is different from the original. Interventional Radiology Brief Postprocedure Note Attending: Dr. Татьяна Eid MD Transmission Maintenance Supervisor: Zhane Vaughan MD Diagnosis: Liver transplant Description of procedure: A total of 2 passes were made into the right hepatic lobe lesion under ultrasound guidance using a 18 Gauge needle passed through a 17 gauge coaxial system. Scanning after each pass demonstrated no bleeding. Specimens were sent to pathology for further analysis. See PACS for full procedural report. Anesthesia: Local, Fentanyl & Versed Complications: None Estimated Blood Loss: minimal Medications (Filter: Administrations occurring from 0947 to 1004 on 01/17/24) As of 01/17/24 1004 fentaNYL PF (Sublimaze) injection (mcg) Total dose: 50 mcg Date/Time Rate/Dose/Volume Action 01/17/24 0950 50 mcg Given midazolam (Versed) injection (mg) Total dose: 1 mg Date/Time Rate/Dose/Volume Action 01/17/24 0950 1 mg Given See detailed result report with images in PACS. The patient tolerated the procedure well without incident or complication and is in stable condition. Associated Татьяна Winters MD - 01/17/2024 1:08 PM EDT I was present for the entire procedure [facility] Work Phone: 12-19-2023 Hospital Discharge instructions Latasha Perry RN - 12/19/2023 11:52 AM EDT Follow instructions on Patient Info sheet #934 No heavy lifting, pushing or pulling more than 10 lbs for 4 days, may return to work in 4 days per MD Eid. You received moderate sedation: - Do not drive a car, or operate any machinery or power tools of any kind. - Do not drink any alcoholic drinks. - Do not take any over the counter medications that may cause drowsiness. - Do not make any important decisions or sign any legal documents. - You need to have a responsible adult accompany you home. - You may resume your normal diet. - We strongly suggest that a responsible adult be with you for the rest of the day and also during the night. This is for your protection and safety. For questions related to your procedure: Please call [phone] between the hours of 7:00am-5:00pm Monday through Monday. Please call [phone] after 5:00pm and on weekends and holidays. In the event of an emergency call 911 or go to your nearest emergency room. documented in this encounter [facility] Work Phone: 12-19-2023 Miscellaneous Notes Interventional Radiology Post-Procedure Note US guided percutaneous liver transplant biopsy. Indication for procedure: Diagnoses of Liver replaced by transplant (CMS/HCC) and Elevated LFTs were pertinent to this visit. Pre-Procedure Verification and Time Out: [facility] - Pre-procedure Verification completed TIME OUT - Final Verification completed immediately prior to procedure start DEBRIEF completed General Information: Date/Time of Procedure: 12/19/23 at 3:02 PM Indication(s)/Pre - Procedure Diagnoses: Liver transplant (April 2016) with elevated LFTs. Post-Procedure Diagnosis: Liver transplant (April 2016) with elevated LFTs. Procedure Name: US guided percutaneous liver transplant biopsy. Findings: See PACS Procedure performed by: Dr. Татьяна Eid MD Transmission Maintenance Supervisor(s): Doyle Cavazos MD Estimated Blood Loss (mL): minimal Specimen: Yes, sent to pathology with formalin fixative. Informed Consent: written consent obtained Procedure Details: Technically successful and uncomplicated US guided percutaneous liver transplant biopsy. Please see PACS for full procedural details. Patient Tolerance: good Complications: None Prep: Ultrasound Guided Insertion: Yes Large Drape, Hand Hygiene, Surgical Cap, Surgical Mask, Sterile Gloves, Glasses, and Scrubs Patient Position: Supine Site Prep: chlorhexidine, draped, usual sterile procedure followed Anesthesia/Medications: Procedural Sedation: Medications (Filter: Administrations occurring from 920 to 948 on 12/19/23) As of 12/19/2349 fentaNYL PF (Sublimaze) injection (mcg) Total dose: 50 mcg Date/Time Rate/Dose/Volume Action 12/19/23937 50 mcg Given midazolam (Versed) injection (mg) Total dose: 1 mg Date/Time Rate/Dose/Volume Action 12/19/23937 1 mg Given Fentanyl: 50 mcg Versed: 1 mg 1% Lidocaine: 8 mL Attending Attestation: I was present for the entire procedure Doyle Cavazos, PGY-3 Diagnostic Radiology NON-Urgent biofuels operations manager weekends and after hours weekdays (5pm - 5am) IR pager: [phone] Urgent & emergent biofuels operations manager weekends and after hours weekdays (5pm-7am) IR pager: [phone] INTERVENTIONAL RADIOLOGY PRE-PROCEDURE NOTE Luly Giron is a 28 y.o. male with PMHx of DM1, orthotopic liver transplant (April 2016) and autoimmune hepatitis who presents to the interventional radiology department for US guided percutaneous liver biopsy. Procedure: US guided percutaneous liver biopsy. Indication for procedure: Diagnoses of Liver replaced by transplant (CMS/HCC) and Elevated LFTs were pertinent to this visit. Past Medical History: Diagnosis Date Autoimmune hepatitis (CMS/HCC) 11/12/2020 Autoimmune hepatitis Drug induced constipation 12/28/2016 Drug-induced constipation Personal history of diseases of the skin and subcutaneous tissue 06/02/2016 History of acne Personal history of other diseases of the circulatory system 04/28/2016 History of essential hypertension Personal history of other endocrine, nutritional and metabolic disease 04/28/2016 History of type 1 diabetes mellitus Personal history of other endocrine, nutritional and metabolic disease 10/10/2018 History of hyperthyroidism Personal history of other endocrine, nutritional and metabolic disease 02/13/2018 History of thyroiditis Personal history of other endocrine, nutritional and metabolic disease 07/11/2017 History of vitamin D deficiency Right lower quadrant pain 12/28/2016 Abdominal pain, RLQ Past Surgical History: Procedure Laterality Date OTHER SURGICAL HISTORY 04/28/2016 Liver Transplant US GUIDED NEEDLE LIVER BIOPSY 08/15/2017 US GUIDED NEEDLE LIVER BIOPSY 08/15/2017 [facility] US GUIDED NEEDLE LIVER BIOPSY 08/22/2017 US GUIDED NEEDLE LIVER BIOPSY 08/22/2017 [facility] US GUIDED NEEDLE LIVER BIOPSY 02/03/2023 US GUIDED NEEDLE LIVER BIOPSY 02/03/2023 [facility] [place] Relevant Labs: Lab Results Component Value Date CREATININE 1.01 12/12/2023 EGFR 60 10/03/2023 INR 1.2 12/07/2023 PROTIME 13.4 12/07/2023 Planned Sedation/Anesthesia: Moderate Directed physical examination: Normal appearance, behavior, cognition and NAD Heart: Heart regular rate and rhythm Abdomen: soft and nontender Neurologic: negative Current Outpatient Medications: amLODIPine (Norvasc) 5 mg tablet, Take 1 tablet (5 mg) by mouth once daily., Disp: , Rfl: aspirin 81 mg EC tablet, Take 1 tablet (81 mg) by mouth once daily., Disp: , Rfl: insulin lispro (HumaLOG) 100 unit/mL injection, INJECT 50 UNITS PER PUMP DIRECTED ONCE DAILY, Disp: , Rfl: lancets 33 gauge misc, Test blood sugars 5 times daily as directed, Disp: , Rfl: magnesium oxide (Mag-Ox) 400 mg (241.3 mg magnesium) tablet, Take 1 tablet (400 mg) by mouth 2 times a day., Disp: 180 tablet, Rfl: 3 multivit-min/ferrous fumarate (MULTI VITAMIN ORAL), Take 1 tablet by mouth once daily., Disp: , Rfl: mycophenolate (Cellcept) 250 mg capsule, Take 1 capsule (250 mg) by mouth every 12 hours., Disp: 180 capsule, Rfl: 3 OneTouch Ultra Test strip, Test 4 times daily, Disp: , Rfl: predniSONE (Deltasone) 1 mg tablet, Take 1 tablet (1 mg) by mouth once daily., Disp: , Rfl: tacrolimus (Prograf) 0.5 mg capsule, Take 1 capsule (0.5 mg) by mouth 2 times a day., Disp: 180 capsule, Rfl: 3 Mallampati: II (hard and soft palate, upper portion of tonsils anduvula visible) ASA Score: ASA 3 - Patient with moderate systemic disease with functional limitations Benefits, risks and alternatives of procedure and planned sedation have been discussed with the patient and/or their electronics parts sales representative. All questions answered and they agree to proceed. Doyle Cavazos, PGY-3 Diagnostic Radiology NON-Urgent biofuels operations manager weekends and after hours weekdays (5pm - 5am) IR pager: [phone] Urgent & emergent biofuels operations manager weekends and after hours weekdays (5pm-7am) IR pager: [phone] documented in this encounter [facility] Work Phone: 12-19-2023 Note Formatting of this n ote is different from the original. Interventional Radiology Post-Procedure Note US guided percutaneous liver transplant biopsy. Indication for procedure: Diagnoses of Liver replaced by transplant (CMS/HCC) and Elevated LFTs were pertinent to this visit. Pre-Procedure Verification and Time Out: Procedure Location procedure area [facility] - Pre-procedure Verification completed TIME OUT - Final Verification completed immediately prior to procedure start DEBRIEF completed General Information: Date/Time of Procedure: 12/19/23 at 3:02 PM Indication(s)/Pre - Procedure Diagnoses: Liver transplant (April 2016) with elevated LFTs. Post-Procedure Diagnosis: Liver transplant (April 2016) with elevated LFTs. Procedure Name: US guided percutaneous liver transplant biopsy. Findings: See PACS Procedure performed by: Dr. Татьяна Eid MD Transmission Maintenance Supervisor(s): Doyle Cavazos MD Estimated Blood Loss (mL): minimal Specimen: Yes, sent to pathology with formalin fixative. Informed Consent: written consent obtained Procedure Details: Technically successful and uncomplicated US guided percutaneous liver transplant biopsy. Please see PACS for full procedural details. Patient Tolerance: good Complications: None Prep: Ultrasound Guided Insertion: Yes Large Drape, Hand Hygiene, Surgical Cap, Surgical Mask, Sterile Gloves, Glasses, and Scrubs Patient Position: Supine Site Prep: chlorhexidine, draped, usual sterile procedure followed Anesthesia/Medications: Procedural Sedation: Medications (Filter: Administrations occurring from 0921 to 49 on 12/19/23) As of 12/19/23 0949 fentaNYL PF (Sublimaze) injection (mcg) Total dose: 50 mcg Date/Time Rate/Dose/Volume Action 12/19/23 0938 50 mcg Given midazolam (Versed) injection (mg) Total dose: 1 mg Date/Time Rate/Dose/Volume Action 12/19/2338 1 mg Given Fentanyl: 50 mcg Versed: 1 mg 1% Lidocaine: 8 mL Attending Attestation: I was present for the entire procedure Doyle Cavazos, PGY-3 Diagnostic Radiology NON-Urgent biofuels operations manager weekends and after hours weekdays (5pm - 5am) IR pager: [phone] Urgent & emergent biofuels operations manager weekends and after hours weekdays (5pm-7am) IR pager: [phone] [facility] Work Phone: 12-19-2023 Note Formatting of this n ote is different from the original. INTERVENTIONAL RADIOLOGY PRE-PROCEDURE NOTE Luly Giron is a 28 y.o. male with PMHx of DM1, orthotopic liver transplant (April 2016) and autoimmune hepatitis who presents to the interventional radiology department for US guided percutaneous liver biopsy. Procedure: US guided percutaneous liver biopsy. Indication for procedure: Diagnoses of Liver replaced by transplant (CMS/HCC) and Elevated LFTs were pertinent to this visit. Past Medical History: Diagnosis Date Autoimmune hepatitis (CMS/HCC) 11/12/2020 Autoimmune hepatitis Drug induced constipation 12/28/2016 Drug-induced constipation Personal history of diseases of the skin and subcutaneous tissue 06/02/2016 History of acne Personal history of other diseases of the circulatory system 04/28/2016 History of essential hypertension Personal history of other endocrine, nutritional and metabolic disease 04/28/2016 History of type 1 diabetes mellitus Personal history of other endocrine, nutritional and metabolic disease 10/10/2018 History of hyperthyroidism Personal history of other endocrine, nutritional and metabolic disease 02/13/2018 History of thyroiditis Personal history of other endocrine, nutritional and metabolic disease 07/11/2017 History of vitamin D deficiency Right lower quadrant pain 12/28/2016 Abdominal pain, RLQ Past Surgical History: Procedure Laterality Date OTHER SURGICAL HISTORY 04/28/2016 Liver Transplant US GUIDED NEEDLE LIVER BIOPSY 08/15/2017 US GUIDED NEEDLE LIVER BIOPSY 08/15/2017 [facility] US GUIDED NEEDLE LIVER BIOPSY 08/22/2017 US GUIDED NEEDLE LIVER BIOPSY 08/22/2017 [facility] US GUIDED NEEDLE LIVER BIOPSY 02/03/2023 US GUIDED NEEDLE LIVER BIOPSY 02/03/2023 [facility] [place] US Relevant Labs: Lab Results Component Value Date CREATININE 1.01 12/12/2023 EGFR 60 10/03/2023 INR 1.2 12/07/2023 PROTIME 13.4 12/07/2023 Planned Sedation/Anesthesia: Moderate Directed physical examination: Normal appearance, behavior, cognition and NAD Heart: Heart regular rate and rhythm Abdomen: soft and nontender Neurologic: negative Current Outpatient Medications: amLODIPine (Norvasc) 5 mg tablet, Take 1 tablet (5 mg) by mouth once daily., Disp: , Rfl: aspirin 81 mg EC tablet, Take 1 tablet (81 mg) by mouth once daily., Disp: , Rfl: insulin lispro (HumaLOG) 100 unit/mL injection, INJECT 50 UNITS PER PUMP DIRECTED ONCE DAILY, Disp: , Rfl: lancets 33 gauge misc, Test blood sugars 5 times daily as directed, Disp: , Rfl: magnesium oxide (Mag-Ox) 400 mg (241.3 mg magnesium) tablet, Take 1 tablet (400 mg) by mouth 2 times a day., Disp: 180 tablet, Rfl: 3 multivit-min/ferrous fumarate (MULTI VITAMIN ORAL), Take 1 tablet by mouth once daily., Disp: , Rfl: mycophenolate (Cellcept) 250 mg capsule, Take 1 capsule (250 mg) by mouth every 12 hours., Disp: 180 capsule, Rfl: 3 OneTouch Ultra Test strip, Test 4 times daily, Disp: , Rfl: predniSONE (Deltasone) 1 mg tablet, Take 1 tablet (1 mg) by mouth once daily., Disp: , Rfl: tacrolimus (Prograf) 0.5 mg capsule, Take 1 capsule (0.5 mg) by mouth 2 times a day., Disp: 180 capsule, Rfl: 3 Mallampati: II (hard and soft palate, upper portion of tonsils anduvula visible) ASA Score: ASA 3 - Patient with moderate systemic disease with functional limitations Benefits, risks and alternatives of procedure and planned sedation have been discussed with the patient and/or their electronics parts sales representative. All questions answered and they agree to proceed. Doyle Cavazos, PGY-3 Diagnostic Radiology NON-Urgent biofuels operations manager weekends and after hours weekdays (5pm - 5am) IR pager: [phone] Urgent & emergent biofuels operations manager weekends and after hours weekdays (5pm-7am) IR pager: [phone] [facility] Work Phone: 12-19-2023 Note Formatting of this n ote is different from the original. Interventional Radiology Post-Procedure Note US guided percutaneous liver transplant biopsy. Indication for procedure: Diagnoses of Liver replaced by transplant (CMS/HCC) and Elevated LFTs were pertinent to this visit. Pre-Procedure Verification and Time Out: Procedure Location procedure area HUDDLE - Pre-procedure Verification completed TIME OUT - Final Verification completed immediately prior to procedure start DEBRIEF completed General Information: Date/Time of Procedure: 12/19/23 at 3:02 PM Indication(s)/Pre - Procedure Diagnoses: Liver transplant (April 2016) with elevated LFTs. Post-Procedure Diagnosis: Liver transplant (April 2016) with elevated LFTs. Procedure Name: US guided percutaneous liver transplant biopsy. Findings: See PACS Procedure performed by: Dr. Татьяна Eid MD Transmission Maintenance Supervisor(s): Doyle Cavazos MD Estimated Blood Loss (mL): minimal Specimen: Yes, sent to pathology with formalin fixative. Informed Consent: written consent obtained Procedure Details: Technically successful and uncomplicated US guided percutaneous liver transplant biopsy. Please see PACS for full procedural details. Patient Tolerance: good Complications: None Prep: Ultrasound Guided Insertion: Yes Large Drape, Hand Hygiene, Surgical Cap, Surgical Mask, Sterile Gloves, Glasses, and Scrubs Patient Position: Supine Site Prep: chlorhexidine, draped, usual sterile procedure followed Anesthesia/Medications: Procedural Sedation: Medications (Filter: Administrations occurring from 09 to 49 on 12/19/23) As of 12/19/23 0949 fentaNYL PF (Sublimaze) injection (mcg) Total dose: 50 mcg Date/Time Rate/Dose/Volume Action 12/19/23 0938 50 mcg Given midazolam (Versed) injection (mg) Total dose: 1 mg Date/Time Rate/Dose/Volume Action 12/19/23 0938 1 mg Given Fentanyl: 50 mcg Versed: 1 mg 1% Lidocaine: 8 mL Attending Attestation: I was present for the entire procedure Doyle Cavazos, PGY-3 Diagnostic Radiology NON-Urgent biofuels operations manager weekends and after hours weekdays (5pm - 5am) IR pager: [phone] Urgent & emergent biofuels operations manager weekends and after hours weekdays (5pm-7am) IR pager: [phone] [facility] Work Phone: 12-19-2023 Note Formatting of this n ote is different from the original. INTERVENTIONAL RADIOLOGY PRE-PROCEDURE NOTE Luly Giron is a 28 y.o. male with PMHx of DM1, orthotopic liver transplant (April 2016) and autoimmune hepatitis who presents to the interventional radiology department for US guided percutaneous liver biopsy. Procedure: US guided percutaneous liver biopsy. Indication for procedure: Diagnoses of Liver replaced by transplant (CMS/HCC) and Elevated LFTs were pertinent to this visit. Past Medical History: Diagnosis Date Autoimmune hepatitis (CMS/HCC) 11/12/2020 Autoimmune hepatitis Drug induced constipation 12/28/2016 Drug-induced constipation Personal history of diseases of the skin and subcutaneous tissue 06/02/2016 History of acne Personal history of other diseases of the circulatory system 04/28/2016 History of essential hypertension Personal history of other endocrine, nutritional and metabolic disease 04/28/2016 History of type 1 diabetes mellitus Personal history of other endocrine, nutritional and metabolic disease 10/10/2018 History of hyperthyroidism Personal history of other endocrine, nutritional and metabolic disease 02/13/2018 History of thyroiditis Personal history of other endocrine, nutritional and metabolic disease 07/11/2017 History of vitamin D deficiency Right lower quadrant pain 12/28/2016 Abdominal pain, RLQ Past Surgical History: Procedure Laterality Date OTHER SURGICAL HISTORY 04/28/2016 Liver Transplant US GUIDED NEEDLE LIVER BIOPSY 08/15/2017 US GUIDED NEEDLE LIVER BIOPSY 08/15/2017 [facility] US GUIDED NEEDLE LIVER BIOPSY 08/22/2017 US GUIDED NEEDLE LIVER BIOPSY 08/22/2017 [facility] US GUIDED NEEDLE LIVER BIOPSY 02/03/2023 US GUIDED NEEDLE LIVER BIOPSY 02/03/2023 [facility] [place] US Relevant Labs: Lab Results Component Value Date CREATININE 1.01 12/12/2023 EGFR 60 10/03/2023 INR 1.2 12/07/2023 PROTIME 13.4 12/07/2023 Planned Sedation/Anesthesia: Moderate Directed physical examination: Normal appearance, behavior, cognition and NAD Heart: Heart regular rate and rhythm Abdomen: soft and nontender Neurologic: negative Current Outpatient Medications: amLODIPine (Norvasc) 5 mg tablet, Take 1 tablet (5 mg) by mouth once daily., Disp: , Rfl: aspirin 81 mg EC tablet, Take 1 tablet (81 mg) by mouth once daily., Disp: , Rfl: insulin lispro (HumaLOG) 100 unit/mL injection, INJECT 50 UNITS PER PUMP DIRECTED ONCE DAILY, Disp: , Rfl: lancets 33 gauge misc, Test blood sugars 5 times daily as directed, Disp: , Rfl: magnesium oxide (Mag-Ox) 400 mg (241.3 mg magnesium) tablet, Take 1 tablet (400 mg) by mouth 2 times a day., Disp: 180 tablet, Rfl: 3 multivit-min/ferrous fumarate (MULTI VITAMIN ORAL), Take 1 tablet by mouth once daily., Disp: , Rfl: mycophenolate (Cellcept) 250 mg capsule, Take 1 capsule (250 mg) by mouth every 12 hours., Disp: 180 capsule, Rfl: 3 OneTouch Ultra Test strip, Test 4 times daily, Disp: , Rfl: predniSONE (Deltasone) 1 mg tablet, Take 1 tablet (1 mg) by mouth once daily., Disp: , Rfl: tacrolimus (Prograf) 0.5 mg capsule, Take 1 capsule (0.5 mg) by mouth 2 times a day., Disp: 180 capsule, Rfl: 3 Mallampati: II (hard and soft palate, upper portion of tonsils anduvula visible) ASA Score: ASA 3 - Patient with moderate systemic disease with functional limitations Benefits, risks and alternatives of procedure and planned sedation have been discussed with the patient and/or their electronics parts sales representative. All questions answered and they agree to proceed. Doyle Cavazos, PGY-3 Diagnostic Radiology NON-Urgent biofuels operations manager weekends and after hours weekdays (5pm - 5am) IR pager: [phone] Urgent & emergent biofuels operations manager weekends and after hours weekdays (5pm-7am) IR pager: [phone] [facility] Work Phone: 10-30-2023 Evaluation note Encounter Date Diagnosis Assessment Notes Oct, Acute sinusitis, unspecified (ICD-10 - J01.90) Sinus infections can be triggered by a secondary infection from a viral URI or even seasonal allergies. Take medications as directed. Use saline nasal spray prior to presciption nasal spray. Take medications as directed, and complete all doses of medication even if you start to feel better. Patient advised to follow up with PCP if symptoms persist or worsen. Patient verbalized understanding and agreement with treatment plan. Oct, Other specified bacterial agents as the cause of diseases classified elsewhere (ICD-10 - B96.89) Oct, Liver transplant recipient (ICD-10 - Z94.4) Had labs last week, will get a copy - He is waiting to hear from specialists. Discussed his color today, Will followup w results. Chose cefdinir as that is safer. [facility] Other 01-08-2024 Evaluation note* Encounter Date Diagnosis Assessment Notes Treatment Notes Treatment Clinical Notes Oct, Irritable bowel syndrome with both constipation and diarrhea (ICD-10 - K58.2) Needs FMLA Beginning 10/06/23 - 2 days/episode; 3x/month Oct, URI, acute (ICD-10 - J06.9) Pt will call if symptoms worsen or continue Oct, Type I diabetes mellitus, well controlled (ICD-10 - E10.9) Continue followup w endocrinology for chronic condition Oct, Liver transplant recipient (ICD-10 - Z94.4) Continue followup w transplant clinic. [facility] Other 11-02-2023 History of Present illness Narrative* Sharan Ayoub MD - 08/03/2023 10:00 AM EDT Subjective He is mostly unchanged. Tacrolimus level is again high. Review of Systems Constitutional: Negative for appetite change and fatigue. HENT: Negative. Respiratory: Negative. Negative for cough and shortness of breath. Gastrointestinal: Negative for abdominal pain. Endocrine: Negative for cold intolerance. Skin: Negative. Neurological: Negative for seizures and speech difficulty. Physical Exam Constitutional: Appearance: Normal appearance. HENT: Head: Normocephalic and atraumatic. Nose: No congestion or rhinorrhea. Cardiovascular: Rate and Rhythm: Normal rate and regular rhythm. Pulmonary: Effort: Pulmonary effort is normal. Breath sounds: Normal breath sounds. Abdominal: General: Abdomen is flat. Palpations: Abdomen is soft. Musculoskeletal: General: No tenderness. Cervical back: No rigidity or tenderness. Right lower leg: No edema. Skin: Coloration: Skin is not jaundiced. Findings: No erythema. Neurological: General: No focal deficit present. Mental Status: He is alert. Mental status is at baseline. Psychiatric: Mood and Affect: Mood normal. Behavior: Behavior normal. === 01/26/23 === US ABDOMEN LIMITED LIVER - Impression - 1. Liver transplant without sonographic abnormality, including Doppler interrogation. 2. 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 I personally reviewed the images/study and I agree with the findings as stated by vice president financial Ramya Steward MD. This study was interpreted at [place], [place]. Lab Results Component Value Date ALT 69 07/18/2023 AST 53 07/18/2023 GGT 71 (H) 04/11/2018 ALKPHOS 180 07/18/2023 BILITOT 1.2 07/18/2023 Liver replaced by transplant (CMS/HCC) The patient will decrease tacrolimus to 1 bid Labs will continue to be ordered every 6 months We recommended annual dermatological examination We will see the patient in follow up in 6 months [facility] Work Phone: 1(768) 484-658611-02-2023 Instructions* Patient Instructions* Nae Campos RN - 08/03/2023 10:00 AM EDT Lower tacrolimus to 1mg twice daily and repeat labs in 2 weeks. [facility] Work Phone: 1(389) 523-946011-02-2023 Evaluation + Plan note* Assessment & Plan Note - Sharan Ayoub MD - 08/03/2023 9:52 AM EDTAssociated Problem(s): Liver replaced by transplant (CMS/HCC) The patient will decrease tacrolimus to 1 bid Labs will continue to be ordered every 6 months We recommended annual dermatological examination We will see the patient in follow up in 6 months [facility] Work Phone: 1(632) 644-684811-02-2023 Miscellaneous Notes* Assessment & Plan Note - Sharan Ayoub MD - 08/03/2023 9:52 AM EDTAssociated Problem(s): Liver replaced by transplant (CMS/HCC) The patient will decrease tacrolimus to 1 bid Labs will continue to be ordered every 6 months We recommended annual dermatological examination We will see the patient in follow up in 6 months [facility] Work Phone: 1(464) 465-123807-03-2023 Evaluation note* Encounter Date Diagnosis Assessment Notes Treatment Notes Treatment Clinical Notes Apr, Irritable bowel syndrome with diarrhea (ICD-10 - K58.0) Discussed if needed, see his GI in [place] as he has an entire transplant team there. In meantime, stay hydrated, has appt in [place] next week Apr, Liver transplant recipient (ICD-10 - Z94.4) Updated on present issues. Pt understands which OTC meds to avoid to protect his liver. [facility] Other 05-05-2023 NotePre-procedure Verification and Time Out: Pre-Procedure Verification and Time Out: Procedure Locationprocedure area HUDDLE - Pre-procedure Verificationcompleted TIME OUT - Final Verificationcompleted immediately prior to procedure start DEBRIEFcompleted General Information: Anesthesia Critical Care: Non-Anesthesia Date/Time of Procedure: 03-Feb-2023 08:20 Post-Procedure Diagnosis: s/p hepatic transplant Procedure Name: biopsy, liver Findings: grossly normal anatomy Procedure performed by: me Transmission Maintenance Supervisor(s): stephania Estimated Blood Loss (mL): none Specimen: yes Informed Consent: written consent obtained, verbal consent obtained Procedure Details: Procedure Details: A single pass was made into the liver using an 18 gauge automated cutting needle via coaxial technique. Scanning after the procedure demonstrated no evidence of bleeding. Specimen was sent to pathology for further analysis. Prep: Patient Position: supine Site Prep: with chlorhexidine, draped, usual sterile procedure followed Anesthesia: Anesthesia: local, intravenous Fentanyl (mcg): 50 microgram(s) 1% Lidocaine (mL): 4 mL Versed (mg): 1 mg Attestation: Note Completion: I am a:Resident/Fellow Attending AttestationI was present for the entire procedure Electronic Signatures: Татьяна Eid) (Signed 07-Feb-2023 09:02) Authored: Note Completion Co-Signer: Pre-procedure Verification and Time Out, General Information, Procedure Details, Prep/Sedation, Note Completion Swapna Tomlinson (Resident)) (Signed 03-Feb-2023 08:59) Authored: Pre-procedure Verification and Time Out, General Information, Procedure Details, Prep/Sedation, Note Completion Last Updated: 07-Feb-2023 09:02 by Татьяна Eid)[facility] 12-22-2022 Evaluation note* Encounter Date Diagnosis Assessment Notes Treatment Notes Treatment Clinical Notes Nov, Acute non-recurrent maxillary sinusitis (ICD-10 - J01.00) Sinus infections can be triggered by a secondary infection from a viral URI or even seasonal allergies. Take medications as directed. Use saline nasal spray prior to presciption nasal spray. Take medications as directed, and complete all doses of medication even if you start to feel better. Patient advised to follow up with PCP if symptoms persist or worsen. Patient verbalized understanding and agreement with treatment plan. Nov, Liver transplant recipient (ICD-10 - Z94.4) Discussed medication choices with history Nov, Type I diabetes mellitus, well controlled (ICD-10 - E10.9) Pt states amoxil elevates his glucose so will avoid augmentin. [facility] Other 05-05-2022 History of Present illness Narrative* PCP: Dr. Coby Sosa (tel: [phone]; fax: [phone]) * Mr. 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 A liver transplant was received on 04/08/2016 (POD#[id number]). * He presents today for a virtual 6 year post-transplant follow-up visit. * He has no major complaints overall. Otherwise, the patient denies any fever, chills, nausea, vomiting, constipation or diarrhea. Tolerating a diet and hydrating well. The patient also denies any chest pain or shortness of breath. * POST TRANSPLANT COMPLICATIONS: * -HCV: No * -HBV: No * -Alcohol: No * -Drug Use: No * -Surgical Issues: No * -Hypertension: Yes * -Diabetes: Type I Diabetes * -Obesity: No * -Infections: CMV * -Rejection: Mild to moderate rejection (08/15/2017); received steroid pulse. * -Hyperlipidemia: No * -Malignancies: No * -Renal Function: Stable. * Upper Gastrointestinal: no abdominal pain, no eructation, no difficulty swallowing, no early satiety, no jaundiced, no nausea, no vomiting. * Lower Gastrointestinal: no abdominal swelling, no bloating, no constipation, no diarrhea. * Gastrointestinal Bleeding: no bright red blood per rectum, no hematemesis, no maroon stools, no melena/black stool, not vomiting 'coffee grounds' material. * Liver Disease no alteration in sleep wake cycle, no ankle swelling, no cognitive impairment, no confusion, no icterus, no increase in abdominal girth, no lower extremity edema, no muscle cramps, no short term memory impairment. * Perirectal Disease no rectal pain, no rectal sore. * Symptom History: * Modifying Factors: * Associated Symptoms: [facility] [address] Work Phone: 1(326) [phone] History of Present illness Narrative* PCP: Dr. Coby Locke (tel: [phone]; fax: [phone]) * Mr. 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 A liver transplant was received on 04/08/2016 (POD#[id number]). * He presents today for a virtual 5 year post-transplant follow-up visit. * He is overall feeling well and denies any cognitive impairment or fluid overload. Otherwise, the patient denies any fever, chills, nausea, vomiting, constipation or diarrhea. Tolerating a diet and hydrating well. The patient also denies any chest pain or shortness of breath. * POST TRANSPLANT COMPLICATIONS: * -HCV: No * -HBV: No * -Alcohol: No * -Drug Use: No * -Surgical Issues: No * -Hypertension: Yes * -Diabetes: Type I Diabetes * -Obesity: No * -Infections: CMV * -Rejection: Mild to moderate rejection (08/15/2017); received steroid pulse. * -Hyperlipidemia: No * -Malignancies: No * -Renal Function: Stable. * Upper Gastrointestinal: no abdominal pain, no eructation, no difficulty swallowing, no early satiety, no jaundiced, no nausea, no vomiting. * Lower Gastrointestinal: no abdominal swelling, no bloating, no constipation, no diarrhea. * Gastrointestinal Bleeding: no bright red blood per rectum, no hematemesis, no maroon stools, no melena/black stool, not vomiting 'coffee grounds' material. * Liver Disease no alteration in sleep wake cycle, no ankle swelling, no cognitive impairment, no confusion, no icterus, no increase in abdominal girth, no lower extremity edema, no muscle cramps, no short term memory impairment. * Perirectal Disease no rectal pain, no rectal sore. * Symptom History: * Modifying Factors: * Associated Symptoms: WC-Uev[facility]axxmjr[facility] [address] Work Phone: 1([phone]) [phone] History of Present illness Narrative* PCP: Dr. Coby Sosa (tel: [phone]; fax: [phone]) * Mr. 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 A liver transplant was received on 04/08/2016 (POD#[id number]). * He presents today for a virtual 6 year post-transplant follow-up visit. * He has no major complaints overall. Otherwise, the patient denies any fever, chills, nausea, vomiting, constipation or diarrhea. Tolerating a diet and hydrating well. The patient also denies any chest pain or shortness of breath. * POST TRANSPLANT COMPLICATIONS: * -HCV: No * -HBV: No * -Alcohol: No * -Drug Use: No * -Surgical Issues: No * -Hypertension: Yes * -Diabetes: Type I Diabetes * -Obesity: No * -Infections: CMV * -Rejection: Mild to moderate rejection (08/15/2017); received steroid pulse. * -Hyperlipidemia: No * -Malignancies: No * -Renal Function: Stable. * Upper Gastrointestinal: no abdominal pain, no eructation, no difficulty swallowing, no early satiety, no jaundiced, no nausea, no vomiting. * Lower Gastrointestinal: no abdominal swelling, no bloating, no constipation, no diarrhea. * Gastrointestinal Bleeding: no bright red blood per rectum, no hematemesis, no maroon stools, no melena/black stool, not vomiting 'coffee grounds' material. * Liver Disease no alteration in sleep wake cycle, no ankle swelling, no cognitive impairment, no confusion, no icterus, no increase in abdominal girth, no lower extremity edema, no muscle cramps, no short term memory impairment. * Perirectal Disease no rectal pain, no rectal sore. 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 * Patient had liver biopsy on February 03 to 2022 for elevated liver enzymes. Pathology showed mild portal inflammation with lobular lymphocytic infiltrate which can be seen with medication or viruses like CMV. NISHI is negative. Appears like liver enzymes normalized without any definite treatment. In the course of workup for elevated liver enzymes EBV virus was noted to be elevated and so referred toID. * Today patient is accompanied by his mother. Patient does not voice any specific complaints. Patientstates he was feeling tired and fatigued in January 2023 but now he is back to his normal self. Patientdenies persistent fever night sweats or weight loss. Patient denies nausea vomiting or diarrhea. Pat ient denies lumps or bumps in neck axilla and groin. [facility] [address] DO Work Phone: Evaluation noteNo assessment information [facility] Work Phone: Evaluation note* Diagnosis Liver replaced by transplant (CMS/HCC) Liver replaced by transplant documented in this encounter [facility] Work Phone: [phone] note* Diagnosis Liver transplant status (CMS/HCC) Other specified abnormal findings of blood chemistry Type 2 diabetes mellitus without complications (CMS/HCC) Immunodeficiency, unspecified (CMS/HCC) Anxiety disorder, unspecified Thyrotoxicosis, unspecified without thyrotoxic crisis or storm documented in this encounter [facility] Work Phone: [phone] noteNo InformationNort [employer] Other Evaluation note* Diagnosis Liver replaced by transplant (CMS/HCC) Liver replaced by transplant Elevated LFTs Other abnormal blood chemistry Liver replaced by transplant (CMS/HCC)- Primary Liver replaced by transplant documented in this encounter [facility] Work Phone: [phone] note* Diagnosis Elevated LFTs Other abnormal blood chemistry Liver replaced by transplant (CMS/HCC) Liver replaced by transplant Complications, organ transplant Complications of transplanted organ, unspecified site Liver replaced by transplant (CMS/HCC)- Primary Liver replaced by transplant documented in this encounter [facility] Work Phone: [phone] note* Diagnosis 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) Liver replaced by transplant Elevated LFTs Other abnormal blood chemistry 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)- Primary Liver replaced by transplant documented in this encounter [facility] Work Phone: [phone] note* Diagnosis Acute rejection of liver transplant (Multi)- Primary Complications of transplanted liver Acute rejection of liver transplant (Multi) Complications of transplanted liver Elevated LFTs Other abnormal blood chemistry Complications, organ transplant Complications of transplanted organ, unspecified site Encounter for screening for cardiovascular disorders Type 1 diabetes mellitus with hyperglycemia (Multi) 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)- Primary Liver replaced by transplant documented in this encounter [facility] Work Phone: [phone] note* Diagnosis 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)- Primary Liver replaced by transplant documented in this encounter [facility] Work Phone: Evaluation note* Diagnosis Onset Date Resolution Status Depression acute Liver replaced by transplant acute [facility] Work Phone: Evaluation note* Diagnosis Onset Date Resolution Status Depression acute Liver replaced by transplant acute Depression acute Shingles acute [facility] Work Phone: History general Narrative - Reported* Type Description Date Medical History Immune suppressed Medical History hypertension Medical History Diabetes Type 1 Medical History hyperthyroidism Medical History thyroiditis Medical History GERD Medical History Liver replaced by transplant Medical History acute recurrent maxillary sinusi tis Medical History Nephrolithiasis Medical History Vitamin D deficiency Medical History Kidney Stones Surgical History Liver transplant 04/2016 Surgical History Lithotripsy 09/2020 Hospitalization History See above [place] Other History of Present illness Narrative* The patient feels well and labs are at baseline. there is no complaint of cognitive impairment or fluid overload * Upper Gastrointestinal: no abdominal pain, no eructation, no difficulty swallowing, no early satiety, no heartburn, no jaundiced, no nausea. * Lower Gastrointestinal: no abdominal swelling, no bloating, no constipation. * Liver Disease no alteration in sleep wake cycle, no ankle swelling, no cognitive impairment, no confusion. * Symptom History: * Modifying Factors: * Associated Symptoms: GP-Duoekqvcrevizonn-Wqrnsjqu [facility] Work Phone: History of Present illness Narrative* he has been experiencing RUQ pain and feels poorly. ALT and GGT are elevated. Glycemia is poorly controlled. * Upper Gastrointestinal: abdominal pain, but no eructation, no difficulty swallowing, no early satiety, no heartburn, no jaundiced, no nausea, no pain while swallowing. * Lower Gastrointestinal: abdominal swelling, bloating. * Liver Disease no alteration in sleep wake cycle, no ankle swelling, no cognitive impairment, no confusion, no icterus. * Symptom History: * Modifying Factors: * Associated Symptoms: * Skin: there are no skin symptoms. * Eyes: there are no eye symptoms. * Ears: there are no ear symptoms. * Nose: there are no nasal symptoms. * Mouth/Throat/Teeth: there are no oral symptoms. MD-Adxahlzjjp-Dzewfo Work Phone: Instructions* Name Dates Details Instructions not documented QA-Kfhqyub-Ulwyz Main Work Phone: Reason for referral (narrative)* Consultation (Routine) - Authorized Specialty Diagnoses / Procedures Referred By Contac t Referred To Contact Endocrinology Diagnoses Type 1 diabetes mellitus with hyperglycemia (Multi) [place] [address] [address] [facility] [place] [address] Referral ID Status Reason Start Date Expiration Date Visits Requested Visits Authorized [id number] Authorized Specialty Services Required 01/24/2024 01/23/2025 1 1 Scheduling Instructions Thursday 02/01 would be best date as he has 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 scheduled for 01/31 with 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 and may have steroid regimen changed at that time [facility] Work Phone: Family History No Family History Records Found Mother Name Dates Details No pertinent family history( V49.89, Z78.9) Status:Active Relationship Condition Age at Onset Recorded Date/T ketan father Hypertension Unknown Asthma Unknown Not Specified Fibromyalgia Unknown Mother Name Dates Details No pertinent family history( V49.89, Z78.9) Status:Active Mother Name Dates Details No pertinent family history( V49.89, Z78.9) Status:Active Unknown Family Member Name Dates Details No pertinent family history: Mother(V49.89, Z78.9) Status:Active Unknown Family Member Name Dates Details No pertinent family history: Mother(V49.89, Z78.9) Status:Active Unknown Family Member Name Dates Details No pertinent family history: Mother(V49.89, Z78.9) Status:Active Unknown Family Member Name Dates Details No pertinent family history: Mother(V49.89, Z78.9) Status:Active Unknown Family Member Name Dates Details No pertinent family history: Mother(V49.89, Z78.9) Status:Active Unknown Family Member Name Dates Details No pertinent family history: Mother(V49.89, Z78.9) Status:Active Unknown Family Member Name Dates Details No pertinent family history: Mother(V49.89, Z78.9) Status:Active Unknown Family Member Name Dates Details No pertinent family history: Mother(V49.89, Z78.9) Status:Active Unknown Family Member Name Dates Details No pertinent family history: Mother(V49.89, Z78.9) Status:Active Unknown Family Member Name Dates Details No pertinent family history: Mother(V49.89, Z78.9) Status:Active Unknown Family Member Name Dates Details No pertinent family history: Mother(V49.89, Z78.9) Status:Active Unknown Family Member Name Dates Details No pertinent family history: Mother(V49.89, Z78.9) Status:Active Unknown Family Member Name Dates Details No pertinent family history: Mother(V49.89, Z78.9) Status:Active Unknown Family Member Name Dates Details No pertinent family history: Mother(V49.89, Z78.9) Status:Active Unknown Family Member Name Dates Details No pertinent family history: Mother(V49.89, Z78.9) Status:Active Unknown Family Member Name Dates Details No pertinent family history: Mother(V49.89, Z78.9) Status:Active Unknown Family Member Name Dates Details No pertinent family history: Mother(V49.89, Z78.9) Status:Active Unknown Family Member Name Dates Details No pertinent family history: Mother(V49.89, Z78.9) Status:Active Unknown Family Member Name Dates Details No pertinent family history: Mother(V49.89, Z78.9) Status:Active Unknown Family Member Name Dates Details No pertinent family history: Mother(V49.89, Z78.9) Status:Active Unknown Family Member Name Dates Details No pertinent family history: Mother(V49.89, Z78.9) Status:Active Unknown Family Member Name Dates Details No pertinent family history: Mother(V49.89, Z78.9) Status:Active Unknown Family Member Name Dates Details No pertinent family history: Mother(V49.89, Z78.9) Status:Active Unknown Family Member Name Dates Details No pertinent family history: Mother(V49.89, Z78.9) Status:Active Unknown Family Member Name Dates Details No pertinent family history: Mother(V49.89, Z78.9) Status:Active Unknown Family Member Name Dates Details No pertinent family history: Mother(V49.89, Z78.9) Status:Active Unknown Family Member Name Dates Details No pertinent family history: Mother(V49.89, Z78.9) Status:Active Unknown Family Member Name Dates Details No pertinent family history: Mother(V49.89, Z78.9) Status:Active Unknown Family Member Name Dates Details No pertinent family history: Mother(V49.89, Z78.9) Status:Active Unknown Family Member Name Dates Details No pertinent family history: Mother(V49.89, Z78.9) Status:Active Unknown Family Member Name Dates Details No pertinent family history: Mother(V49.89, Z78.9) Status:Active Unknown Family Member Name Dates Details No pertinent family history: Mother(V49.89, Z78.9) Status:Active Relationship Condition Age at Onset Recorded Date/T ketan father Hypertension Unknown Asthma Unknown Not Specified Fibromyalgia Unknown grandparent Diabetes mellitus Unknown Not Specified Hypertension Unknown Relationship Condition Age at Onset Recorded Date/T ketan father Hypertension Unknown Asthma Unknown mother Fibromyalgia Unknown grandparent Diabetes mellitus Unknown mother Hypertension Unknown Advance Directives No Advanced Directives Records FoundDocuments on File Type Date Recorded Patient Smelter Charger Expl anation Healthcare Power of [facility] 04/25/2016 Date Activated Date Inactivated Comments 01/18/2024 8:32 PM Question Answer Comments Plan of Care: Code Status Discussion Completed Decision Maker: Patient Advance Directive Response Recorded Date/ Time Advance Directives No July 07, 2017 12:16pm Advance Directive Response Recorded Date/ Time Advance Directives No July 07, 2017 1:16pm Documents on File Type Date Recorded Patient Smelter Charger Expl anation Healthcare Power of [facility] 04/25/2016 Documents on File Type Date Recorded Patient Smelter Charger Expl anation Advance Directives and Living Will 12/02/2016 Healthcare Power of [facility] 04/25/2016 Date Activated Date Inactivated Comments 01/18/2024 8:32 PM Question Answer Comments Plan of Care: Code Status Discussion Completed Decision Maker: Patient Chief Complaint and Reason for Visit Chief Complaint DM E10.65 E55.9 E78.5 Kidney Stone Kidney Stone Chief Complaint Z94.4 D84.9 N18.30 E 10.9 Z94.4 D84.9 N18.30 E10.9 Z94.4 D84.9 Chief Complaint labs Chief Complaint Z94.4 D84.9 E10.9 Chief Complaint Z94.4 D84.9 E10.9 Z94.4;D84.9;R79.899;E10.9 Chief Complaint Z94.4 D84.9 E10.9 Z94.4;D84.9;R79.899;E10.9 labs Z94.4 D64.9 Chief Complaint Z94.4;D84.9;R79.899; E10.9 labs Z94.4 D64.9 z94.4 d84.9 E10.9 Chief Complaint Z94.4 D64.9 z94.4 d84.9 E10.9 Z94.4 D84.9 E10.9 Z94.4 D84.9 E10.9 Chief Complaint z94.4 d84.9 E10.9 Z94.4 D84.9 E10.9 Z94.4 D84.9 E10.9 B27.0 Chief Complaint Z94.4 D84.9 E10.9 B27.0 B27.00 Z00.00 Z79.4 D84.9 N18.30 E10.9 Chief Complaint B27.00 Z00.00 Z79.4 D84.9 N18.30 E10.9 z94.4 d84.9 n18.30 e10.9 Chief Complaint B27.00 Z00.00 Z79.4 D84.9 N18.30 E10.9 z94.4 d84.9 n18.30 e10.9 Z94.4 D84.9 N18.30 E10.9 Chief Complaint z94.4 d84.9 n18.30 e 10.9 Z94.4 D84.9 N18.30 E10.9 Chronic Kidney Disease- Chief Complaint Z94.4 D84.9 N18.30 E 10.9 Chronic Kidney Disease- b27.00 z94.4 d84.9 n18.30 e10.9 Fmla Paperwork Chief Complaint Fmla Paperwork z94.4 d84.9 n18.30 e10.9 Sinuses, Congestion-Covid Negative Z94.4 D84.9 N18.30 E10.9 Z94.4 D84.9 N18.30 E10.9 Chief Complaint Z94.4 D84.9 N18.30 E 10.9 Z94.4 D84.9 N18.30 E10.9 R79.89 Z94.4 T86.90 D84.9 Chief Complaint Z94.4 D84.9 N18.30 E 10.9 Z94.4 D84.9 N18.30 E10.9 R79.89 Z94.4 T86.90 D84.9 Z94.4;T86.41 Chief Complaint Z94.4 D84.9 N18.30 E 10.9 Z94.4 D84.9 N18.30 E10.9 R79.89 Z94.4 T86.90 D84.9 Z94.4;T86.41 Z94.4 T86.41 Chief Complaint Z94.4 D84.9 N18.30 E 10.9 Z94.4 D84.9 N18.30 E10.9 R79.89 Z94.4 T86.90 D84.9 Z94.4;T86.41 Z94.4 T86.41 Z94.4 T84.41 Chief Complaint Z94.4 D84.9 N18.30 E 10.9 Z94.4 D84.9 N18.30 E10.9 R79.89 Z94.4 T86.90 D84.9 Z94.4;T86.41 Z94.4 T86.41 Z94.4 T84.41 t86.41 z94.1 Chief Complaint Z94.4 D84.9 N18.30 E 10.9 R79.89 Z94.4 T86.90 D84.9 Z94.4;T86.41 Z94.4 T86.41 Z94.4 T84.41 t86.41 z94.1 z94.4 t86.41 Chief Complaint R79.89 Z94.4 T86.90 D84.9 Z94.4;T86.41 Z94.4 T86.41 Z94.4 T84.41 t86.41 z94.1 z94.4 t86.41 Chief Complaint Z94.4;T86.41 Z94.4 T86.41 Z94.4 T84.41 t86.41 z94.1 z94.4 t86.41 z94.4 t86.41 Z94.4 T86.41 depressed Chief Complaint Z94.4;T86.41 Z94.4 T86.41 Z94.4 T84.41 t86.41 z94.1 z94.4 t86.41 z94.4 t86.41 Z94.4 T86.41 Z94.4 T86.41 depressed Chief Complaint Z94.4 T84.41 t86.41 z94.1 z94.4 t86.41 z94.4 t86.41 Z94.4 T86.41 Z94.4 T86.41 depressed Z94.4 T86.41 Reason for Visit Depression Liver replaced by transplant Chief Complaint z94.4 t86.41 z94.4 t86.41 Z94.4 T86.41 Z94.4 T86.41 depressed Z94.4 T86.41 THB follow up, shingles Reason for Visit Depression Liver replaced by transplant Chief Complaint Z94.4 T86.41 depressed Z94.4 T86.41 THB follow up, shingles Z94.4 T86.41 Reason for Visit Depression Liver replaced by transplant Depression Shingles Assessments No Assessments Information Available Summary Purpose Chief Complaint * A telephone visit (audio only) between the patient (at the originating site) and the provider (at the distant site) was utilized to provide this telehealth service. * Verbal consent was requested and obtained from LULY GIRON on this date, 07/08/2021 10:30 AM ,for a telehealth visit. * Post Liver Transplant Follow Up * A telephone visit (audio only) between the patient (at the originating site) and the provider (at the distant site) was utilized to provide this telehealth service. * Verbal consent was requested and obtained from LULY GIRON on this date, 02/03/2022 09:00 AM ,for a telehealth visit. * Post Liver Transplant Follow Up * A telephone visit (audio only) between the patient (at the originating site) and the provider (at the distant site) was utilized to provide this telehealth service. * Verbal consent was requested and obtained from LULY GIRON on this date, 02/03/2022 09:00 AM ,for a telehealth visit. * Post Liver Transplant Follow Up s/p liver transplantS/P LIVER TRANSPLANTATION* Consult requested by Dr. Ayoub * Reason for consult: EBV viremia Reason for Referral Specialty Diagnoses / Procedures Referred By Carrie avlia Referred To Contact Radiology Diagnoses Elevated LFTs Liver replaced by transplant (CMS/HCC) Complications, organ transplant Procedures [place] [address] [address] [facility] [place] [address] Referral ID Status Reason Start Date Expiration Date Visits Requested Visits Authorized [id number] Authorized Perform Procedure 01/03/2024 01/02/2025 1 1 Specialty Diagnoses / Procedures Referred By Contac t Referred To Contact Radiology Diagnoses Liver replaced by transplant (CMS/HCC) Elevated LFTs Procedures US guided [place] [address] [address] Department [place] [address] Referral ID Status Reason Start Date Expiration Date Visits Requested Visits Authorized [id number] Authorized Perform Procedure 12/05/2023 12/04/2024 1 1 Additional Source Comments (unrecognized sect ion and content) No Status Records FoundNo Status Records FoundNo Status Records FoundNo Status Records FoundNo Status Records FoundNo Status Records FoundNo Status Records FoundNo Status Records Found INFORMATION SOURCE (unrecogn ized section and content) DATE CREATED AUTHOR 01/22/2021 [facility] DATE CREATED AUTHOR AUTHOR'S ORGANIZ ATION 10/28/2022 [facility] DATE CREATED AUTHOR AUTHOR'S ORGANIZ ATION 05/09/2023 [facility] DATE CREATED AUTHOR AUTHOR'S ORGANIZ ATION 06/11/2023 [facility] DATE CREATED AUTHOR AUTHOR'S ORGANIZ ATION 05/29/2024 [facility] DATE CREATED AUTHOR AUTHOR'S ORGANIZ ATION 06/07/2024 [facility] DATE CREATED AUTHOR AUTHOR'S ORGANIZ ATION 07/03/2024 [facility] DATE CREATED AUTHOR AUTHOR'S ORGANIZ ATION 07/11/2024 [facility] Care Teams (unrecognized sec tion and content) Team Status: Active Member Role Status Dates Coby Sosa MD Primary Care Provider Active Team Status: Inactive Member Role Status Dates Coby Sosa MD Primary Care Provider Active Sharan Ayoub MD Attending Provider Active Team Status: Inactive Member Role Status Dates Coby Sosa MD Primary Care Provider, Attending Misha espinosa Active Team Status: Inactive Member Role Status Dates Coby Sosa MD Primary Care Provider Active Ember Tejeda DO Attending Provider Active Team Status: Inactive Member Role Status Dates Coby Sosa MD Primary Care Provider Active Sharan Ayoub MD Attending Provider Active Ember Tejeda DO Referring Provider Active Leighton Reilly MD Other Provider Active General Production Manager Relationship Specialty Start Date End Date Coby Sosa MD [address] [place], [place] [address] PCP - General 05/19/16 Nae Campos RN Box Repairer Transplant 07/07/23 General Production Manager Relationship Specialty Start Date End Date Coby Sosa MD PCP - General 05/19/16 Team Status: Inactive Member Role Status Dates Coby Sosa MD Primary Care Provider Active Start: August 16, 2023 End: August 16, 2023 Sharan Ayoub MD Attending Provider Active Sta rt: August 16, 2023 End: August 16, 2023 Team Status: Inactive Member Role Status Dates Coby Sosa MD Primary Care Provider Active Start: September 05, 2023 End: September 05, 2023 Sharan Ayoub MD Attending Provider Active Sta rt: September 05, 2023 End: September 05, 2023 Team Status: Inactive Member Role Status Dates Coby Sosa MD Primary Care Provider Active Start: October 03, 2023 End: October 03, 2023 Sharan Ayoub MD Attending Provider Active Sta rt: October 03, 2023 End: October 03, 2023 Team Status: Inactive Member Role Status Dates Coby Sosa MD Attending Provider Active St art: October 09, 2023 End: October 09, 2023 Team Status: Inactive Member Role Status Dates Coby Sosa MD Primary Care Provider Active Start: October 26, 2023 End: October 26, 2023 Sharan Ayoub MD Attending Provider Active Sta rt: October 26, 2023 End: October 26, 2023 General Production Manager Relationship Specialty Start Date End Date Coby Sosa MD PCP - General 05/19/16 Nae Campos, professional services consultantBox Repairer Transplant 07/07/23 Team Status: Inactive Member Role Status Dates Coby Sosa MD Attending Provider Active St art: October 30, 2023 End: October 30, 2023 Team Status: Inactive Member Role Status Dates Coby Sosa MD Primary Care Provider Active Start: December 04, 2023 End: December 04, 2023 Sharan Ayoub MD Attending Provider Active Sta rt: December 04, 2023 End: December 04, 2023 Team Status: Inactive Member Role Status Dates Coby Sosa MD Primary Care Provider Active Start: December 12, 2023 End: December 12, 2023 Sharan Ayoub MD Attending Provider Active Sta rt: December 12, 2023 End: December 12, 2023 Team Status: Inactive Member Role Status Dates Coby Sosa MD Primary Care Provider Active Start: January 04, 2024 End: January 04, 2024 Sharan Ayoub MD Attending Provider Active Sta rt: January 04, 2024 End: January 04, 2024 General Production Manager Relationship Specialty Start Date End Date Coby Sosa MD PCP - General 05/19/16 Nae Campos, professional services consultantBox Repairer Transplant 07/07/23 General Production Manager Relationship Specialty Start Date End Date Coby Sosa MD PCP - General 05/19/16 Nae Campos, professional services consultantBox Repairer Transplant 07/07/23 General Production Manager Relationship Specialty Start Date End Date Coby Sosa MD [address] [place], [place] [address] [address] PCP - General 05/19/16 Nae Campos, professional services consultantBox Repairer Transplant 07/07/23 Team Status: Inactive Member Role Status Dates Coby Sosa MD Primary Care Provider Active Start: January 30, 2024 End: January 30, 2024 Sharan Ayoub MD Attending Provider Active Sta rt: January 30, 2024 End: January 30, 2024 General Production Manager Relationship Specialty Start Date End [place] [address] PCP - General 05/19/16 Nae Campos, professional services consultantBox Repairer Transplant 07/07/23 Team Status: Inactive Member Role Status Dates Coby Sosa MD Primary Care Provider Active Start: February 06, 2024 End: February 06, 2024 Sharan Ayoub MD Attending Provider Active Sta rt: February 06, 2024 End: February 06, 2024 Team Status: Inactive Member Role Status Dates Coby Sosa MD Primary Care Provider Active Start: February 15, 2024 End: February 15, 2024 Sharan Ayoub MD Attending Provider Active Sta rt: February 15, 2024 End: February 15, 2024 Team Status: Inactive Member Role Status Dates Coby Sosa MD Primary Care Provider Active Start: February 21, 2024 End: February 21, 2024 Sharan Ayoub MD Attending Provider Active Sta rt: February 21, 2024 End: February 21, 2024 Team Status: Inactive Member Role Status Dates Coby Sosa MD Primary Care Provider Active Start: February 27, 2024 End: February 27, 2024 Sharan Ayoub MD Attending Provider Active Sta rt: February 27, 2024 End: February 27, 2024 Team Status: Inactive Member Role Status Dates Coby Sosa MD Primary Care Provider Active Start: March 06, 2024 End: March 06, 2024 Sharan Ayoub MD Attending Provider Active Sta rt: March 06, 2024 End: March 06, 2024 Team Status: Inactive Member Role Status Dates Coby Sosa MD Primary Care Provider Active Start: 2024 End: 2024 Sharan Ayoub MD Attending Provider Active Sta rt: 2024 End: 2024 Team Status: Active Member Role Status Dates Coby Sosa MD Primary Care Provider Active Start: April 09, 2024 Sharan Ayoub MD Attending Provider Active Sta rt: April 09, 2024 Team Status: Inactive Member Role Status Dates Coby Sosa MD Primary Care Provide r, Attending Provider Active Start: April 09, 2024 End: April 09, 2024 Team Status: Inactive Member Role Status Dates Coby Sosa MD Primary Care Provider Active Start: April 09, 2024 End: April 09, 2024 Sharan Ayoub MD Attending Provider Active Sta rt: April 09, 2024 End: April 09, 2024 Team Status: Active Member Role Status Dates Coby Sosa MD Primary Care Provider Active Start: May 08, 2024 Vicenta Cantu DO Attending Provider Active Start: May 08, 2024 Team Status: Inactive Member Role Status Dates Coby Sosa MD Primary Care Provider Active Start: May 13, 2024 End: May 13, 2024 Sharan Ayoub MD Attending Provider Active Sta rt: May 13, 2024 End: May 13, 2024 Team Status: Inactive Member Role Status Dates Coby Sosa MD Primary Care Provide r, Attending Provider Active Start: May 23, 2024 End: May 23, 2024 Team Status: Inactive Member Role Status Dates Coby Sosa MD Primary Care Provider Active Start: July 01, 2024 End: July 01, 2024 Sharan Ayoub MD Attending Provider Active Sta rt: July 01, 2024 End: July 01, 2024 Goals (unrecognized section and content) Goals may be documented in a n alternate sectionGoals may be documented in an alternate sectionGoals may be documented in an alternate sectionGoals may be documented in an alternate sectionGoals may be documented in an alternate sectionNo InformationGoals may be documented in an alternate sectionGoals may be documented in an alternate sectionGoals may be documented in an alternate sectionNo InformationGoals may be documented in an alternate sectionGoals may be documented in an alternate sectionGoals may be documented in an alternate sectionGoals may be documented in an alternate sectionGoals may be documented in an alternate sectionGoals may be documented in an alternate sectionNo InformationGoals may be documented in an alternate sectionNo InformationNo InformationGoals may be documented in an alternate sectionGoals may be documented in an alternate sectionGoals may be documented in an alternate sectionGoals may be documented in an alternate sectionGoals may be documented in an alternate sectionGoals may be documented in an alternate sectionGoals may be documented in an alternate sectionGoals may be documented in an alternate sectionGoals may be documented in an alternate sectionGoals may be documented in an alternate sectionGoals may be documented in an alternate sectionGoals may be documented in an alternate sectionGoals may be documented in an alternate section REASON FOR VISIT (unrecogniz ed section and content) Reason Comments Liver Post Transplant Follow-up Reason Comments Other [id number] Specialty Diagnoses / Procedures Referred By Contac t Referred To Contact Radiology Diagnoses Liver replaced by transplant (CMS/HCC) Elevated LFTs Procedures US guided [place] [address] [address] [facility] [place] [address] Referral ID Status Reason Start Date Expiration Date Visits Requested Visits Authorized [id number] Authorized Perform Procedure 12/05/2023 12/04/2024 1 1 Specialty Diagnoses / Procedures Referred By Contac t Referred To Contact Radiology Diagnoses Elevated LFTs Liver replaced by transplant (CMS/HCC) Complications, organ transplant Procedures US liver with doppler Sharan Ayoub MD [facility] [place][note 2] [address] [facility] [place] [address] Referral ID Status Reason Start Date Expiration Date Visits Requested Visits Authorized [id number] Authorized Perform Procedure 01/03/2024 01/02/2025 1 1 Specialty Diagnoses / Procedures Referred By Contac t Referred To Contact Radiology Diagnoses 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) Elevated LFTs Procedures US guided needle liver biopsy Sharan Ayoub MD [address] [place], [place] [address] [facility] [place] [address] Referral ID Status Reason Start Date Expiration Date Visits Requested Visits Authorized [id number] Authorized Perform Procedure 01/11/2024 01/10/2025 1 1 Specialty Diagnoses / Procedures Referred By Contac t Referred To Contact Diagnoses 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 Procedures No coded services entered Post, Yung Peterson MD [address] [place], [place] [address] [facility] Medicine[facility]Gastro[facility]olog [place] [id number] [facility] 55 [facility] [place][note 2] [address] [place] [address] Referral ID Status Reason Start Date Expiration Date Visits Re quested Visits Authorized [id number] 1 1 Scheduled Active and Recently Administ ered Medications (unrecognized section and content) Medication Order 01/22/2024 01/23/2024 01/24/2024 amLODIPine (Norvasc) tablet 5 mg 5 mg, oral, Daily, First dose on Mon01/19/24 at 0900 0856 (Given - Provider: Ninoska Burden RN) 0956 (Given - Provider: Domonique Mcneil RN) 0834 (Given - Provider: Ninoska Burden, RN) aspirin EC tablet 81 mg 81 mg, oral, Daily, First dose on Mon01/19/24 at 0900, Do not crush, chew, or split. 0851 (Given - Provider: Ninoska Burden RN) 0956 (Given - Provider: Domonique Mcneil RN) 0834 (Given - Provider: Ninoska Burden, JULIEN) enoxaparin (Lovenox) syringe 40 mg 40 mg, subcutaneous, Daily, First dose on Mon01/19/24 at 0900 0846 (Given - Provider: Ninoska Burden RN)1122 (Held by provider - Provider: May Dawson MD - Reason: Other) 0900 (Dose Auto Held - Provider: Mya Dawson MD)1536 (Unheld by provider - Provider: Mya Dawson MD) 0834 (Given - Provider: Ninoska Burden, JULIEN) insulin lispro (HumaLOG) injection 0-10 Units 0-10 Units, subcutaneous, 3 times daily with meals, First dose on Mon01/19/24 at 1700, Do not hold when patient is not eating, continue order as scheduled for hyperglycemia management. Insulin Lispro Corrective Scale #2 Hypoglycemia protocol Call LIP unit(s) if Blood Glucose is between 0 - 70 mg/dL 0 unit(s) if Blood glucose is between 71-150 2 unit(s) if Blood glucose is between 151-200 4 unit(s) if Blood glucose is between 201-250 6 unit(s) if Blood glucose is between 251-300 8 unit(s) if Blood glucose is between 301-350 10 unit(s) if Blood glucose is between 351-400 Notify provider unit(s) if Blood Glucose is greater than 400 mg/dL 0853 (Given - Provider: Ninoska Burden RN)1422 (Given - Provider: Ninoska Burden RN)1902 (Given - Provider: Comfort Russell, JULIEN) 0711 (Held by provider - Provider: Mya Dawson MD - Reason: Other)0800 (Dose Auto Held - Provider: Mya Dawson MD)0920 (Unheld by provider - Provider: Mya Dawson MD)1210 (Given - Provider: Domonique Mcneil RN)1800 (Given - Provider: Domonique Mcneil RN) 0833 (Given - Provider: Ninoska Burden RN)1331 (Given - Provider: Ninoska Burden RN)1740 (Given - Provider: Ninoska Burden RN) insulin NPH (Isophane) (HumuLIN N,NovoLIN N) injection 10 Units (COMPLETED) 10 Units, subcutaneous, Once, On Mon01/22/24 at 1430, For 1 dose 1422 (Given - Provider: Ninoska Burden RN) insulin NPH (Isophane) (HumuLIN N,NovoLIN N) injection 10 Units (COMPLETED) 10 Units, subcutaneous, Once, On Mon01/22/24 at 1999, For 1 dose, Please give 30 minutes prior to steroid dose 2012 (Given - Provider: Comfort Russell RN) insulin NPH (Isophane) (HumuLIN N,NovoLIN N) injection 10 Units 10 Units, subcutaneous, Every 24 hours, First dose (after last modification) on Mon01/23/24 at 1999 2035 (Given - Provider: Amanda Hall RN) 1999 (Due) insulin NPH (Isophane) (HumuLIN N,NovoLIN N) injection 15 Units (COMPLETED) 15 Units, subcutaneous, Every morning, First dose on Mon01/22/24 at 0830, For 1 dose 0846 (Given - Provider: Ninoska Burden RN) insulin NPH (Isophane) (HumuLIN N,NovoLIN N) injection 15 Units (COMPLETED) 15 Units, subcutaneous, Once, On Mon01/23/24 at 1300, For 1 dose 1408 (Given - Provider: Domonique Mcneil RN) insulin NPH (Isophane) (HumuLIN N,NovoLIN N) injection 15 Units (CANCELED) 15 Units, subcutaneous, Every 24 hours, First dose on Mon01/24/24 at 0900 0834 (Given - Provider: Ninoska Burden, JULIEN) insulin NPH (Isophane) (HumuLIN N,NovoLIN N) injection 25 Units 25 Units, subcutaneous, Every 24 hours, First dose (after last modification) on Mon01/25/24 at 0900 INSULIN PUMP- PATIENT SUPPLIED pump - subcutaneous, Continuous Pump, First dose on Mon01/18/24 at 2200, For 28 days, Insulin Pump 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: [employer], Using as Automated Delivery System: Yes, Insulin Type: lispro (Humalog), Basal Rates: Enter Start Times and Rate in Units/Hr: 9:34 PM / 2, Insulin to Carb Ratio: Enter Start Times and Grams of carbs required for every 1 unit of insulin: 9:33 PM / 12, Insulin Sensitivity Factor: Enter Start times and Sensitivity Factor in mg/dL: 9:33 PM / 50, Targets: Enter Start Time and Target Levels: 9:33 PM / 161-106 9487 (Self Administered Via Pump - Provider: Comfort Russell RN) 2199 (Self Administered Via Pump - Provider: Amanda Hall, JULIEN) 2199 (Due) lidocaine 4 % patch 1 patch 1 patch, transdermal, Administer over 12 Hours, Daily, First dose on Mon01/23/24 at 0900, Apply to shoulder. Patch will remain on for 12 hours, then removed for [address] patch directly over any surgical incisions or wounds. 09 (Medication Applied - Provider: Domonique Mcneil RN)2158 (Medication Removed - Provider: Amanda Hall, JULIEN) 835 (Medication Applied - Provider: Ninoska Burden, JULIEN)2035 (Due: Medication Removed - Provider: Ninoska Burden, JULIEN) magnesium oxide (Mag-Ox) tablet 400 mg (COMPLETED) 400 mg, oral, Once, On Mon01/22/24 at 0900, For 1 dose 0851 (Given - Provider: Ninoska Burden, JULIEN) magnesium sulfate IV 2 g (COMPLETED) 2 g, intravenous, at 25 mL/hr, Administer over 2 Hours, Once, On Mon01/23/24 at 1330, For 1 dose 1800 (New Bag - Provider: Domonique Mcneil RN)2000 (Stopped - Provider: Amanda Hall RN) methylPREDNISolone sod succinate (SOLU-Medrol) injection 125 mg (CANCELED) 125 mg, intravenous, User specified (Once per day on Monday), First dose on Mon01/21/24 at 2100 2109 (Given - Provider: Comfort Russell, JULIEN) mycophenolate (Cellcept) capsule 250 mg 250 mg, oral, Every 12 hours, First dose on Mon01/18/24 at 2100 1217 (Given - Provider: Ninoska Burden RN)2333 (Given - Provider: Comfort Russell RN) 1210 (Given - Provider: Domonique Mcneil RN)2343 (Given - Provider: Amanda Hall RN) 1217 (Given - Provider: Ninoska Burden RN) pantoprazole (ProtoNix) EC tablet 40 mg 40 mg, oral, Daily before breakfast, First dose on Mon01/19/24 at 0700, Do not crush, chew, or split. 0851 (Given - Provider: Ninoska Burden RN) 0956 (Given - Provider: Domonique Mcneil RN) 0541 (Given - Provider: Amanda Hall RN - Comment: work flow) predniSONE (Deltasone) tablet 60 mg 60 mg, oral, Daily, First dose on Mon01/23/24 at 0900 0956 (Given - Provider: Domonique Mcneil RN) 0834 (Given - Provider: Ninoska Burden RN) tacrolimus (Prograf) capsule 1 mg 1 mg, oral, User specified (2 times per day), First dose (after last modification) on Mon01/19/24 at 2359 1217 (Given - Provider: Ninoska Burden RN)2333 (Given - Provider: Comfort Russell RN) 1210 (Given - Provider: Domonique Mcneil RN)2342 (Given - Provider: Amanda Hall, RN) 1217 (Given - Provider: Ninoska Burden RN)5438 (Due) PRN Medication Order 01/22/2024 01/23/2024 01/24/2024 acetaminophen (Tylenol) tablet 650 mg 650 mg, oral, Every 8 hours PRN, pain mild (1-3), first line, pain moderate (4-6), first line, Starting on Mon01/23/24 at 1208, If ordered PRN for pain, nurse is permitted to administer this medication for higher pain scores based on patient preference? Yes 2045 (Given - Provider: Amanda Hall RN) dextrose 50 % injection 12.5 g 12.5 g, intravenous, Every 15 min PRN, For blood glucose less than or equal to 70 mg/dL, Starting on Sherry 01/18/24 at 2047, May repeat until blood glucose level reaches 100 mg/dL or greater. Push 2 - 3 mL/minute if patient has secure IV access. dextrose 50 % injection 25 g 25 g, intravenous, Every 15 min PRN, For blood glucose less than or equal to 40 mg/dL, Starting on Mon01/18/24 at 2047, May repeat until blood glucose level reaches 100 mg/dL or greater. Push 2 - 3 mL/minute if patient has secure IV access. fentaNYL PF (Sublimaze) injection (COMPLETED) intravenous, Once PRN Procedure, Starting on Mon01/23/24 at 0841, For 1 dose, Intraprocedure 0841 (Given - Provider: Trdui Saleem RN) fentaNYL PF (Sublimaze) injection (COMPLETED) intravenous, Once PRN Procedure, Starting on Mon01/23/24 at 0845, For 1 dose, Intraprocedure 0845 (Given - Provider: Trudi Saleem RN) glucagon (Glucagen) injection 1 mg 1 mg, intramuscular, Every 15 min PRN, low blood sugar - see comments, For blood glucose less than or equal to 40 mg/dL and no IV access, Starting on Sherry 01/18/24 at 2047, Give until blood glucose is 100 mg/dL or greater. If patient DOES NOT HAVE secure IV access & patient is unconscious, NPO or is unable to eat or drink. glucagon (Glucagen) injection 1 mg 1 mg, intramuscular, Every 15 min PRN, low blood sugar - see comments, For blood glucose less than or equal to 70 mg/dL and no IV access, Starting on Mon01/18/24 at 2048, Give until blood glucose is 100 mg/dL or greater. If patient DOES NOT HAVE secure IV access & patient is unconscious, NPO or is unable to eat or drink. insulin lispro (HumaLOG) refill for patient own pump 3 mL 3 mL, pump - subcutaneous, As needed, Refill for patient own pump, Starting on Mon01/18/24 at 2109, Whole vial - REFILL for patient own insulin pump midazolam (Versed) injection (COMPLETED) intravenous, Once PRN Procedure, Starting on Mon01/23/24 at 0841, For 1 dose, Intraprocedure 0841 (Given - Provider: Trudi Saleem RN) midazolam (Versed) injection (COMPLETED) intravenous, Once PRN Procedure, Starting on Mon01/23/24 at 0845, For 1 dose, Intraprocedure 0845 (Given - Provider: Trudi Saleem RN) ondansetron (Zofran) injection 4 mg 4 mg, intravenous, Every 4 hours PRN, nausea/vomiting, first line, Starting on Mon01/19/24 at 0804, When administering via IV Push, administer over 3-5 minutes. oxyCODONE (Roxicodone) immediate release tablet 2.5 mg 2.5 mg, oral, Every 8 hours PRN, pain severe (7-10), first line, Starting on Mon01/23/24 at 1209, If ordered PRN for pain, nurse is permitted to administer this medication for higher pain scores based on patient preference? Yes 1247 (Given - Provider: Domonique Mcneil RN) polyethylene glycol (Glycolax, Miralax) packet 17 g 17 g, oral, Daily PRN, constipation, Starting on Mon01/18/24 at 2029, Bowel Regimen - for prevention of constipation. 1439 (Given - Provid er: Ninoska Burden RN) FOR RECORDS PERTAINING TO PATIENTS WHO ARE OR HAVE BEEN ENROLLED IN A CHEMICAL DEPENDENCY/SUBSTANCEABUSE PROGRAM, SOME INFORMATION MAY BE OMITTED. This clinical summary was aggregated from multiple sources. Caution should be exercised in using it in the provision of clinical care. This summary normalizes information from multiple sources, and as a consequence, information in this document may materially change the coding, format and clinical context of patient data. In addition, data may be omitted in some cases. CLINICAL DECISIONS SHOULD BE BASED ON THE PRIMARY CLINICAL RECORDS. [facility] [employer] [facility]. provides no warranty or guarantee of the accuracy or completeness of information in this document.
--- NOTE | 2024-07-14 19:36 | ECG_ITS ---
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
--- NOTE | 2024-07-14 19:36 | XR_ITS ---
[address] [address] Patient Name: LULY GIRON MRN: [id number] date: 1995 Sex: M Assigned Patient Location: ER Current Patient Location: ED.MAIN Accession/Order Number: [id number] Exam Date: 07/14/2024 19:40 Report Date: 07/14/2024 21:43 At the request of: LORA WEBBER Procedure: XR chest 1V EXAMINATION: XR chest 1V, , 07/14/2024 7:40 PM EDT INDICATION: Hyperglycemia HISTORY: Ordering Provider Reason for Exam: Hyperglycemia Technologist Note: Additional: COMPARISON: None. TECHNIQUE: Chest x-ray: One view. FINDINGS: No pneumothorax, pleural effusion or focal airspace consolidation. Heart is normal in size. Bony thorax is unremarkable. XR/XR chest 1V IMPRESSION: No acute cardiopulmonary process. Electronically authenticated by: FLAVIA AVELAR Date: 07/14/2024 21:43
--- NOTE | 2024-07-14 19:38 | ED_ITS ---
HPI HPI - General Adult General Chief complaint: Recheck/Abnormal Lab/Rx Stated complaint: Hyperglycemia Time Seen by Provider: 07/14/24 19:33 Source: patient Mode of arrival: walk-in History of Present Illness HPI narrative: 29-year-old male presents to the emergency department for elevated blood sugar. He has had it for 2 to 3 days and its reading greater than 600 on his glucometer at home. He is on an insulin pump and has been using it. He does not know why his sugar may have gotten so high. No fever or vomiting or complaints of pain. He has been urinating frequently. Related Data Home Medications ?Medication ?Instructions ?Recorded ?Confirmed amlodipine 5 mg tablet 5 mg PO DAILY 05/21/23 07/14/24 aspirin 81 mg tablet,delayed 81 mg PO DAILY 05/21/23 07/14/24 release (Adult Low Dose Aspirin) insulin lispro 100 unit/mL 1 sliding scale dose continuous 05/21/23 subcutaneous solution subcutaneous infusion magnesium oxide 400 mg (241.3 mg 400 mg PO BID 05/21/23 07/14/24 magnesium) tablet mycophenolate mofetil 250 mg 250 mg PO Q12H 05/21/23 07/14/24 capsule tacrolimus 1 mg capsule, 1 mg PO Q12H 05/21/23 07/14/24 immediate-release prednisone 10 mg tablet 20 mg PO QDAY 07/14/24 07/14/24 venlafaxine 37.5 mg 75 mg PO QDAY 07/14/24 07/14/24 capsule,extended release 24 hr Previous Rx's ?Medication ?Instructions ?Recorded ondansetron 4 mg disintegrating 4 mg PO Q6H PRN nausea and 05/21/23 tablet vomiting #20 tabs Allergies Allergy/AdvReac Type Severity Reaction Status Date / Time red (food color) AdvReac Intermediate Swelling Verified 07/14/24 19:27 of Lip/Tongue/Throat Opioid HPI Opioid Management Most Recent Opioid Data: Last Pain Scale 8 05/08/24 21:37 05/08/24 Review of Systems ROS Narrative A ten point review of systems is negative except as noted above. [facility] Medical History (Updated 07/14/24 @ 23:25 by Phil Agudelo MD) Hypertension ?I10 - Essential (primary) hypertension (ICD-10) Diabetes ?E11.9 - Type 2 diabetes mellitus without complications (ICD-10) Surgical History (Updated 05/08/24 @ 20:51 by Holli Amato) Liver transplant recipient ?Z94.4 - Liver transplant status (ICD-10) Social History Smoking status: Never smoker Little interest or pleasure in doing things: not at all Feeling down, depressed, or hopeless: several days Exam Narrative Exam Narrative: Nurses note and vital signs reviewed and patient is not hypoxic. General: The patient appears well and in no apparent distress. Patient is resting comfortably on cart. Skin: Warm, dry, no pallor noted. There is no rash noted. Head: Normocephalic, atraumatic Eye: Normal conjunctiva, no drainage Ears, Nose, Mouth, and Throat: oral mucosa is moist. Nares patent. Cardiovascular: Regular Rate and Rhythm Respiratory: Patient is in no distress, no accessory muscle use, lungs are clear to auscultation, no wheezing, rales or rhonchi Back: non-tender GI: Soft and nontender Musculoskeletal: The patient has no evidence of calf tenderness, no pitting edema, symmetrical pulses noted bilaterally Neurological: A&O, normal speech Psychiatric: Cooperative Constitutional Vital Signs, click to edit/add: Last Vital Signs Temp 98.6 F 07/14/24 19:27 Pulse 78 07/14/24 19:27 Resp 18 07/14/24 19:27 BP 128/88 07/14/24 19:27 Pulse Ox 96 07/14/24 19:27 O2 Del Method Room Air 07/14/24 19:27 Course Vital Signs Vital signs: Vital Signs Temperature 98.6 F 07/14/24 19:27 Pulse Rate 78 07/14/24 19:27 Respiratory Rate 18 07/14/24 19:27 Blood Pressure 128/88 07/14/24 19:27 Pulse Oximetry 96 07/14/24 19:27 Oxygen Delivery Method Room Air 07/14/24 19:27 Temperature 98.6 F 07/14/24 19:27 Pulse Rate 78 07/14/24 19:27 Respiratory Rate 18 07/14/24 19:27 Blood Pressure 128/88 07/14/24 19:27 Pulse Oximetry 96 07/14/24 19:27 Oxygen Delivery Method Room Air 07/14/24 19:27 Medical Decision Making MDM Narrative Medical decision making narrative: The patient presents with elevated blood sugar but he is not in DKA. Bicarb is normal and acetone is negative. His sugar was over 700 and he was given IV fluids and IV insulin and his sugar came down but then it went back up into the 500 range. She was ordered additional insulin and is being admitted. The patient believes that his sugar is high because his insulin in his pump has gone bad. He has not been refrigerating it. Findings are discussed with the patient and his family. Differential Diagnosis Differential Diagnosis: Hyperglycemia, DKA Lab Data Lab results reviewed: Yes I reviewed the patient's lab results Labs: Lab Results 07/14/24 07/14/24 07/14/24 Range/Units 19:40 21:32 23:04 WBC 9.8 (4.0-11.0) 10^3/uL RBC 4.66 L (4.70-6.10) 10^6/uL Hgb 14.6 (14.0-18.0) g/dL Hct 43.9 (42.0-54.0) % MCV 94.2 H (80.0-94.0) fL MCH 31.3 (25.9-34.0) pg MCHC 33.3 (29.9-35.2) g/dL RDW 13.6 (11.0-15.0) % Plt Count 164 (150-450) 10^3/uL MPV 12.5 (9.5-13.5) fL Neut % (Auto) 89.9 H (43.0-75.0) % Lymph % (Auto) 8.2 L (20.5-60.0) % Jenkins % (Auto) 1.2 L (1.7-12.0) % Eos % (Auto) 0.0 L (0.9-7.0) % Baso % (Auto) 0.2 (0.2-2.0) % Neut # (Auto) 8.8 H (1.4-6.5) 10^3/uL Lymph # (Auto) 0.8 L (1.2-3.8) 10^3/uL Jenkins # (Auto) 0.1 L (0.3-0.8) 10^3/uL Eos # (Auto) 0.0 (0.0-0.7) 10^3/uL Baso # (Auto) 0.0 (0.0-0.1) 10^3/uL Abs Immat Gran (auto) 0.05 H (0.00-0.03) 10^3/uL Imm/Tot Granulo (auto) 0.5 (0.0-0.5) % Sodium 130 L (136-145) mmol/L Potassium 4.9 (3.5-5.1) mmol/L Chloride 94 L (98-107) mmol/L Carbon Dioxide 25.4 (21.0-32.0) mmol/L Anion Gap 15.5 BUN 31.0 H (7.0-18.0) mg/dL Creatinine 1.53 H (0.70-1.30) mg/dL Est GFR ( Amer) >60 (>=60 mL/min/1.73m^2) Est GFR (Non-Af Amer) 53 L (>=60 mL/min/1.73m^2) BUN/Creatinine Ratio 20.3 Glucose 724 H* (74-106) mg/dL Calcium 9.3 (8.5-10.1) mg/dL Total Bilirubin 4.3 H (0.2-1.0) mg/dL Direct Bilirubin 3.5 H* (0.0-0.2) mg/dL AST 82 H (15-37) U/L ALT 112 H (16-63) U/L Alkaline Phosphatase 330 H (46-116) U/L Total Protein 6.9 (6.4-8.2) g/dL Albumin 2.6 L (3.4-5.0) g/dL Globulin 4.3 g/dL Albumin/Globulin Ratio 0.6 Urine Color Lt. yellow (YELLOW) Urine Clarity Clear (CLEAR) Urine pH 5.5 (5.0-9.0) Ur Specific Stevens <=1.005 A (1.005-1.025) Urine Protein Negative (NEG/TRACE) mg/dL Urine Glucose (UA) >=1000 A (NEGATIVE) mg/dL Urine Ketones 15 A (NEGATIVE) mg/dL Urine Occult Blood Moderate A (NEGATIVE) Urine Nitrite Negative (NEGATIVE) Urine Bilirubin Negative (NEGATIVE) Urine Urobilinogen 1.0 (0.2-1.0) EU/dL Ur Leukocyte Esterase Negative (NEGATIVE) Urine RBC 10-20 A (0-2) #/HPF Urine WBC None seen (NONE SEEN) #/HPF Ur Squamous Epith Cells None seen (NONE/RARE) #/LPF Urine Crystals None seen (None Seen) #/HPF Urine Bacteria Trace A (NONE SEEN) #/HPF Urine Casts None seen (NONE SEEN) #/LPF Urine Mucus None seen (NONE SEEN) Acetone, Qual Negative (NEGATIVE) POC Glucose 408 H 523 H* (74-106) mg/dL Imaging Data Chest x-ray: Radiologist's impression: ITS Impressions Chest X-Ray 07/14/24 19:36 IMPRESSION: No acute cardiopulmonary process. Electronically authenticated by: FLAVIA AVELAR Date: 07/14/2024 21:43 ECG Data Attestation: I personally reviewed and interpreted this ECG as follows: (EKG on my interpretation shows sinus rhythm with rate of 84 no acute change) Critical Care Time Critical Care Time Critical Care Time: Yes Total Critical Care Time: 40 Attestation: Due to the high probability of sudden and clinically significant deterioration in the patient's condition he/she required the highest level of my preparedness to intervene urgently I provided critical care time including documentation time, medication orders and management, reevaluation, vital sign assessment, ordering and reviewing of lab tests, ordering and reviewing of x-ray studies, and admission orders. Aggregate critical care time is 40 minutes including only time during which I was engaged in work directly related to his/her care and did not include time spent treating other patients simultaneously. Discharge Plan Discharge Chief Complaint: Recheck/Abnormal Lab/Rx Clinical Impression: Hyperglycemia Patient Disposition: Admitted as Observation Time of Disposition Decision: 23:25 Condition: Fair
[2024-07-14 19:46] LABS: Basophils Percent Auto 0.2 % (0.2-2.0); Hematocrit 43.9 % (42.0-54.0); Hemoglobin 14.6 g/dL (14.0-18.0); Immature Granulocytes Abs Auto 0.05 10^3/uL (0.00-0.03); Immature Granulocytes Pct Auto 0.5 % (0.0-0.5); Lymphocytes Absolute Auto 0.8 10^3/uL (1.2-3.8); Lymphocytes Percent Auto 8.2 % (20.5-60.0); Mean Corpuscular HGB Conc 33.3 g/dL (29.9-35.2); Mean Corpuscular Hemoglobin 31.3 pg (25.9-34.0); Mean Corpuscular Volume 94.2 fL (80.0-94.0); Mean Platelet Volume 12.5 fL (9.5-13.5); Monocytes Absolute Auto 0.1 10^3/uL (0.3-0.8); Monocytes Percent Auto 1.2 % (1.7-12.0); Neutrophils Absolute Auto 8.8 10^3/uL (1.4-6.5); Neutrophils Percent Auto 89.9 % (43.0-75.0); Platelet Count 164 10^3/uL (150-450); Red Blood Count 4.66 10^6/uL (4.70-6.10); Red Cell Distribution Width 13.6 % (11.0-15.0); White Blood Count 9.8 10^3/uL (4.0-11.0)
[2024-07-14] MEDS: 0.9 % SODIUM CHLORIDE 1,000 ML 1000 ML IV ×2 (19:50→22:00)
[2024-07-14 19:53] LABS: Acetone NEGATIVE (NEGATIVE)
[2024-07-14 20:04] LABS: Alanine Aminotransferase 112 U/L (16-63); Albumin Globulin Ratio 0.6; Albumin Level 2.6 g/dL (3.4-5.0); Alkaline Phosphatase 330 U/L (46-116); Anion Gap 15.5; Aspartate Amino Transferase 82 U/L (15-37); BUN Creatinine Ratio 20.3; Bilirubin Total 4.3 mg/dL (0.2-1.0); Calcium 9.3 mg/dL (8.5-10.1); Carbon Dioxide 25.4 mmol/L (21.0-32.0); Chloride 94 mmol/L (98-107); Estimated GFR (African America >60 (>=60 mL/min/1.73m^2); Estimated GFR (Non-African Ame 53 (>=60 mL/min/1.73m^2); Globulin 4.3 g/dL; Potassium 4.9 mmol/L (3.5-5.1); Sodium 130 mmol/L (136-145); Total Protein 6.9 g/dL (6.4-8.2)
[2024-07-14 20:06] LABS: Glucose 724 mg/dL (74-106)
[2024-07-14 20:07] LABS: Bilirubin Direct 3.5 mg/dL (0.0-0.2)
[2024-07-14 20:14] LABS: Bilirubin Urine NEGATIVE (NEGATIVE); Blood Urine MODERATE (NEGATIVE); Clarity Urine CLEAR (CLEAR); Color Urine LT. YELLOW (YELLOW); Glucose Urine UA >=1000 mg/dL (NEGATIVE); Ketones Urine 15 mg/dL (NEGATIVE); Leukocyte Esterase Urine NEGATIVE (NEGATIVE); Nitrite Urine NEGATIVE (NEGATIVE); Protein Urine NEGATIVE (NEG/TRACE); Specific Gravity Urine <=1.005 (1.005-1.025); pH Urine 5.5 (5.0-9.0)
[2024-07-14 20:21] LABS: Bacteria Urine TRACE #/HPF (NONE SEEN); Cast Seen? NONE SEEN #/LPF (NONE SEEN); Crystals Seen? None Seen #/HPF (None Seen); Mucus Urine NONE SEEN (NONE SEEN); Squamous Epithelial Cell Urine NONE SEEN #/LPF (NONE/RARE); WBC Urine NONE SEEN #/HPF (NONE SEEN)
[2024-07-14] MEDS: INSULIN REGULAR, HUMAN (100 UNIT/ML) 10 ML MDV 10 UNIT IV ×2 (20:28→23:37)
[2024-07-14 21:34] LABS: Glucometer 408 mg/dL (74-106)
[2024-07-14 23:06] LABS: Glucometer 523 mg/dL (74-106)
[2024-07-14 23:49] LABS: pH VBG 7.378 (7.330-7.430)
[2024-07-15] VITALS (9 sets, daily range): BP systolic 115–132; BP diastolic 67–88; PULSE 68–100; TEMP 36.3–36.7; O2SAT 94–99; BMI 17.5
--- OUTSIDE RECORDS SUMMARY | 2024-07-15 00:11 | XMS_ITS | CCD ---
Author Organization [facility] [employer] Care Team Providers Care Senior Project Controls Specialist Name Role Phone Harmeet Cochran Unavailable Unavailable Sharan Ayoub Unavailable Unavailable Jenni Euceda Unavailable Unavailable Hiren Valdez Unavailable Unavailable Coby Sosa Unavailable Unavailable Jose Roberto Shields Unavailable Unavailable Maury Norris Unavailable Unavailable Jia Burgos Unavailable Unavail able Coby Sosa Primary Care Provider Kennedy Barroso Attending Provider [phone] Jaiden Morley Attending Provider [phone] Yaneli Edwards Unavailable Unavailable Harmeet Cochran [...] Provider MD Coby Sosa Primary Care Provider [phone] MD Sharan Ayoub Attending Provider DR COBY SOSA Primary Care Unavailable DR [...] Care Provider MD Sharan Ayoub Attending Provider [phone] DO Ember Tejeda Referring Provider MD Leighton [...] MD Primary Care Provider [phone] MD Coyb Sosa Primary Care Provider MD Sharan Ayoub [...] SOSA, COBY E Primary Care Unavailable YUNG MONTEISNOS B Admitting Unavailable GHOLAM, SHARAN M Referring Unavailable SOSA, COBY E Primary Care Unavailable OLIVIA CASTANEDA Attending Unavailable GHOLAM, SHARAN [place] Attending Unavailable SOSA, COBY E Primary Care Unavailable GHOLAM, SHARAN M Attending Unavailable SOSA, COBY E Primary Care Unavailable CIERRA DEMARCO Attending Unavailable SOSA, COBY E Primary Care Unavailable MD Coby Sosa E Primary Care Provider [phone] MD Sharan Ayoub Attending Provider [phone] Gholam, Sharan Admitting Unavailable Gholam, Sharan Attending [...] Clavulanate (2 sources) Clavulanate Drug Allergy 4 [facility] Contrast Media (2 sources) Contrast media Substance Allergy 4 Swelling of Lip/Tongue/Thro at, anaphylaxis [facility] Penicillins (antibiotic) (2 sources) Amoxicillin Drug Allergy 4 [facility] (20 sources) Contrast media; Translations: [red dye] Allergy to substance 7 anaphylaxis, Angioedema, Swelling [facility] (3 sources) Amoxicillin / Clavulanate Drug Allergy 6 Unknown [employer] Other (12 sources) Amoxicillin; Translations: [amoxicillin] Drug Allergy 4 [facility] (12 sources) Clavulanate; Translations: [clavulanic acid] Drug Allergy 4 [facility] Medications Current Medications Medication Drug Class(es) Dates [...] at 2200, For 28 days, Insulin 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: [employer], Using as Automated Delivery System: Yes, Insulin [...] Start: 08-28-2017 take 1 capsule by mo [facility] every twelve hours Mycophenolate Mofetil 250 MG Oral Capsule TAKE 1 CAPSULE BY MOUTH EVERY 12 HOURS Quantity: 60 Refills: 11 Ordered: 21-Jul-2022 Sharan Ayoub MD Start : 28-Aug-2017 Active Start: 08-28-2017 take 1 capsule by [facility] every twelve hours Mycophenolate Mofetil 250 MG [...] tablet 01/25/2024 02/24/2024 Active polyethylene glycol 3350 96321 mg powder for oral solution (3 sources) [...] Start: 07-25-2019 take 2 tablets by mo [facility] once daily predniSONE 1 MG Oral Tablet [...] 2020 1:00am April 09, 2024 9:01am ergocalciferol 30461 unt oral capsule (2 sources) Provitamin D2 Compound Start: 04-11-2017 take 1 capsule by mouth every week Vitamin D (Ergocalciferol) 44602 UNIT Oral Capsule TAKE 1 CAPSULE WEEKLY. [...] Do not crush or chew. 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; Translations: [OTH ALF CURRENT DRUG THERAPY] Onset: 10-28-2022 Episodic Other [...] ALT [Catalytic activity/Vol] 95 U/L High 7-52 [facility] Comment on above: Performed By: #### T ACROLIMUS., CMP, CBC #### [address] Albumin [Mass/volume] in Ser um or Plasma by Bromocresol green (BCG) dye binding methoOrdered By: Sharan Ayoub on 07-01-2024 Albumin BCG dye [Mass/Vol] 3.1 g/dL Low 3.5-5.7 [facility] Alkaline phosphatase [Enzyma tic activity/volume] in Serum or PlasmaOrdered By: Sharan Ayoub on 07-01-2024 ALP [Catalytic activity/Vol] 220 U/L High 34-104 [facility] Comment on above: Result Comment: PERF ORMED BY: [place] [address] PATHOLOGIST MANAGER WINTER MISAEL FOX M.D. Performed By: #### T ACROLIMUS., CMP, CBC #### [address] Aspartate aminotransferase [ Enzymatic activity/volume] in Serum or PlasmaOrdered By: Sharan Ayoub on 07-01-2024 AST [Catalytic activity/Vol] 88 U/L High 13-39 [facility] Comment on above: Performed By: #### T ACROLIMUS., CMP, CBC #### [address] Automated basophil %Ordered By: Sharan Ayoub on 07-01-2024 Basophils/100 WBC (Bld) 0.6 % Normal . [facility] Comment on above: Performed By: #### T ACROLIMUS., CMP, CBC #### [address] Automated basophil countOrde red By: Sharan Ayoub on 07-01-2024 Basophils (Bld) [#/Vol] 0.1 10*3/uL Normal 0.0-0.2 [facility] Comment on above: Result Comment: PERF ORMED BY: [place] [address] PATHOLOGIST MANAGER WINTER MISAEL FOX M.D. Performed By: #### T ACROLIMUS., CMP, CBC #### [address] Automated blood monocyte cou ntOrdered By: Sharan Ayoub on 07-01-2024 Monocytes (Bld) [#/Vol] 0.8 10*3/uL Normal 0.0-0.8 [facility] Comment on above: Performed By: #### T ACROLIMUS., CMP, CBC #### [address] Automated eosinophil %Ordere d By: Sharan Ayoub on 07-01-2024 Eosinophils/100 WBC (Bld) 0.9 % Normal . [facility] Comment on above: Performed By: #### T ACROLIMUS., CMP, CBC #### [address] Automated eosinophil countOr dered By: Sharan Ayoub on 07-01-2024 Eosinophils (Bld) [#/Vol] 0.1 10*3/uL Normal 0.0-0.45 [facility] Comment on above: Performed By: #### T ACROLIMUS., CMP, CBC #### [address] Automated monocyte %Ordered By: Sharan Ayoub on 07-01-2024 Monocytes/100 WBC (Bld) 7.4 % Normal . [facility] Comment on above: Performed By: #### T ACROLIMUS., CMP, CBC #### [address] Automated neutrophil %Ordere d By: Sharan Ayoub on 07-01-2024 Neutrophils/100 WBC (Bld) 66.5 % Normal . [facility] Comment on above: Performed By: #### T ACROLIMUS., CMP, CBC #### [address] [place] [address] [place] Bilirubin.total [Mass/volume ] in Serum or PlasmaOrdered By: Sharan Ayoub on 07-01-2024 Bilirubin [Mass/Vol] 3.4 mg/dL High 0.3-1.0 [facility] Comment on above: Samples from [...] By: #### T ACROLIMUS., CMP, CBC #### [place] [address] [place] Calcium [Mass/volume] in Ser um or PlasmaOrdered By: Sharan Ayoub on 07-01-2024 Calcium [Mass/Vol] 8.6 mg/dL Normal 8.6-10.3 [facility] Comment on above: Performed By: #### T ACROLIMUS., CMP, CBC #### [address] Carbon dioxide, total [Moles /volume] in Serum or PlasmaOrdered By: Sharan Ayoub on 07-01-2024 CO2 [Moles/Vol] 32.6 mmol/L High 21.0-31.0 [facility] Comment on above: Performed By: #### T ACROLIMUS., CMP, CBC #### [facility] [address] [place] [address] [place] Chloride [Moles/volume] in S kasi or PlasmaOrdered By: Sharan Ayoub on 07-01-2024 Chloride [Moles/Vol] 101 mmol/L Normal 98-107 [facility] Comment on above: Performed By: #### T ACROLIMUS., CMP, CBC #### [address] Complete Blood Count Auto Di ffon 07-01-2024 Mean Corpuscular HGB Conc 33.6 g/dL Normal 32.5-35.6 [facility] Comment on above: Performed By: #### T ACROLIMUS., CMP, CBC #### [facility] [address] [place] [address] NRBC% 0.1 /100{WBC} Normal 0-0.5 [facility] Comment on above: Performed By: #### T ACROLIMUS., CMP, CBC #### [facility] [address] [place] [address] Comprehensive Metabolic Pane sarah 07-01-2024 Albumin [Mass/Vol] 3.1 g/dL Low 3.5-5.7 [facility] Comment on above: Performed By: #### T ACROLIMUS., CMP, CBC #### [address] GFR/1.73 sq M.predicted MDRD (S/P/Bld) [Vol rate/Area] mL/min/{1.73_m2} Normal [facility] Comment on above: Performed By: #### T ACROLIMUS., CMP, CBC #### [address] Creatinine [Mass/volume] in Serum or PlasmaOrdered By: Sharan Ayoub on 07-01-2024 Creatinine [Mass/Vol] 0.98 mg/dL Normal 0.70-1.30 [facility] Comment on above: Performed By: #### T ACROLIMUS., CMP, CBC #### [address] Erythrocyte distribution wid th [Ratio] by Automated countOrdered By: Sharan Ayoub on 07-01-2024 Erythrocyte distribution width (RBC) [Ratio] 15.9 % High 12.0-14.8 [facility] Comment on above: Performed By: #### T ACROLIMUS., CMP, CBC #### [facility] [address] [place] [address] Erythrocytes [#/volume] in B lood by Automated countOrdered By: Sharan Ayoub on 07-01-2024 RBC (Bld) [#/Vol] 4.44 10*6/uL Normal 3.90-5.60 [facility] Comment on above: Performed By: #### T ACROLIMUS., CMP, CBC #### [facility] [address] [place] [address] [place] Glucose [Mass/volume] in Ser um or PlasmaOrdered By: Sharan Ayoub on 07-01-2024 Glucose [Mass/Vol] 228 mg/dL High 70-100 [facility] Comment on above: ADA recommended refe rence rangeRandom Glucose Reference Range is dependent on time and content of last meal. Glucose of more than 200 mg/dL in a nonstressed, ambulatory subject supports the diagnosis of Diabetes Mellitus. Result Comment: [place] om Glucose Reference Range is dependent on time and content of last meal. Glucose of more than 200 mg/dL in a nonstressed, ambulatory subject supports the diagnosis of Diabetes Mellitus. ADA recommended reference range Performed By: #### T ACROLIMUS., CMP, CBC #### [facility] [address] [place] [address] [place] Hematocrit [Volume Fraction] of Blood by Automated countOrdered By: Sharan Ayoub on 07-01-2024 Hematocrit (Bld) [Volume fraction] 41.5 % Normal 38.8-50.0 [facility] Comment on above: Performed By: #### T ACROLIMUS., CMP, CBC #### [facility] [address] [place] [address] [place] Hemoglobin [Mass/volume] in BloodOrdered By: Sharan Ayoub on 07-01-2024 Hemoglobin (Bld) [Mass/Vol] 14.0 g/dL Normal 13.0-17.0 [facility] Comment on above: Performed By: #### T ACROLIMUS., CMP, CBC #### [facility] [address] [place] [address] [place] Leukocytes [#/volume] correc roderick for nucleated erythrocytes in Blood by Automated counOrdered By: Sharan Ayoub on 07-01-2024 WBC corrected for nucl RBC Auto (Bld) [#/Vol] 10.5 10*3/uL 4.1-10.5 [facility] Leukocytes [#/volume] in Blo od by Automated countOrdered By: Sharan Ayoub on 07-01-2024 WBC (Bld) [#/Vol] 10.5 10*3/uL Normal 4.1-10.5 [facility] Comment on above: Performed By: #### T ACROLIMUS., CMP, CBC #### [facility] [address] Lymphocytes [#/volume] in Bl ood by Automated countOrdered By: Sharan Ayoub on 07-01-2024 Lymphocytes (Bld) [#/Vol] 2.6 10*3/uL Normal 1.00-4.8 [facility] Comment on above: Performed By: #### T ACROLIMUS., CMP, CBC #### [facility] [address] Lymphocytes/100 leukocytes i n Blood by Automated countOrdered By: Sharan Ayoub on 07-01-2024 Lymphocytes/100 WBC (Bld) 24.6 % Normal . [facility] Comment on above: Performed By: #### T ACROLIMUS., CMP, CBC #### [facility] [address] MCH [Entitic mass] by Automa roderick countOrdered By: Sharan Ayoub on 07-01-2024 MCH (RBC) [Entitic mass] 31.4 pg Normal 27.5-35.2 [facility] Comment on above: Performed By: #### T ACROLIMUS., CMP, CBC #### [facility] [address] MCHC Auto (RBC) [Mass/Vol]Or dered By: Sharan Ayoub on 07-01-2024 MCHC (RBC) [Mass/Vol] 33.6 g/dL 32.5-35.6 [facility] MCV [Entitic volume] by Auto mated countOrdered By: Sharan Ayoub on 07-01-2024 MCV (RBC) [Entitic vol] 93.6 fL Normal 83.5-101 [facility] Comment on above: Performed By: #### T ACROLIMUS., CMP, CBC #### [facility] [address] Neutrophils [#/volume] in Bl ood by Automated countOrdered By: Sharan Ayoub on 07-01-2024 Neutrophils (Bld) [#/Vol] 7.0 10*3/uL Normal 1.8-7.7 [facility] Comment on above: Performed By: #### T ACROLIMUS., CMP, CBC #### [facility] [address] No Panel InformationOrdered By: Sharan Ayoub on 07-01-2024 Estimated GFR (CKD-EPI) > 60.0 mL/Min [facility] Creatinine Clearance (Chem N/A [facility] Nucleated erythrocytes [Pres ence] in Blood by Automated countOrdered By: Sharan Ayoub on 07-01-2024 Nucleated RBC Auto Ql (Bld) 0.1 /100{WBC} 0-0.5 [facility] Platelet mean volume [Entiti c volume] in Blood by Automated countOrdered By: Sharan Ayoub on 07-01-2024 Platelet mean volume (Bld) [Entitic vol] 11.3 fL High 6.6-10.1 [facility] Comment on above: Performed By: #### T ACROLIMUS., CMP, CBC #### [facility] [address] Platelets [#/volume] in Bloo d by Automated countOrdered By: Sharan Ayoub on 07-01-2024 Platelets (Bld) [#/Vol] 158 10*3/uL Normal 150-450 [facility] Comment on above: Performed By: #### T ACROLIMUS., CMP, CBC #### [facility] [address] Potassium [Moles/volume] in Serum or PlasmaOrdered By: Sharan Ayoub on 07-01-2024 Potassium [Moles/Vol] 3.4 mmol/L Low 3.5-5.1 [facility] Comment on above: Performed By: #### T ACROLIMUS., CMP, CBC #### [facility] [address] [place] [address] Protein [Mass/volume] in Ser um or PlasmaOrdered By: Sharan Ayoub on 07-01-2024 Protein [Mass/Vol] 6.0 g/dL Low 6.4-8.9 [facility] Comment on above: Performed By: #### T ACROLIMUS., CMP, CBC #### [address] Serum globulin measurement b y calculation (mass/volume)Ordered By: Sharan Ayoub on 07-01-2024 Globulin (S) [Mass/Vol] 2.9 g/dL Normal [facility] Comment on above: Performed By: #### T ACROLIMUS., CMP, CBC #### [address] Serum or plasma albumin/glob ulin mass ratioOrdered By: Sharan Ayoub on 07-01-2024 Albumin/Globulin [Mass ratio] 1.1 {ratio} [facility] Comment on above: Performed By: #### T ACROLIMUS., CMP, CBC #### [address] Serum or plasma anion gap de terminationOrdered By: Sharan Ayoub on 07-01-2024 Anion gap [Moles/Vol] 9.8 mmol/L Normal 6.0-15.0 [facility] Comment on above: Performed By: #### T ACROLIMUS., CMP, CBC #### [address] Sodium [Moles/volume] in Ser um or PlasmaOrdered By: Sharan Ayoub on 07-01-2024 Sodium [Moles/Vol] 140 mmol/L Normal 136-145 [facility] Comment on above: Performed By: #### T ACROLIMUS., CMP, CBC #### [facility] [address] [place] [address] Tacrolimuson 07-01-2024 Tacrolimus (Bld) [Mass/Vol] 8.5 ng/mL Normal <=15.0 [facility] Comment on above: Order Comment: NOTE: Result was obtained using a chemiluminescent microparticle immunoassay (CMIA) on the [employer] i system. Optimal therapeutic ranges for immunosuppressant drugs depend upon an individual patient's current clinical state, type of organ transplant, time post-transplant, co-administration of other immunosuppressants, and other clinical factors. The results of this test should be correlated with additional clinical and laboratory data before changes in treatment regimens are made. Performed By: #### 1 1253-2 #### NORMA Cherry ([id number]) [facility] ([facility]) [id number] [place] [address] Tacrolimus (Transplant) No C hgon 07-01-2024 Tacrolimus (Transplant) No Chg Sent to Ref Lab Normal [facility] Comment on above: Result Comment: PERF ORMED BY: [place] [address] PATHOLOGIST MANAGER WINTER MISAEL FOX M.D. Performed By: #### C MP, CBC, TACROLIMUS. #### [facility] [address] [place] [address] [place] Urea nitrogen [Mass/volume] in Serum or PlasmaOrdered By: Sharan Ayoub on 07-01-2024 Urea nitrogen [Mass/Vol] 15 mg/dL Normal 04-25 [facility] Comment on above: Performed By: #### T ACROLIMUS., CMP, CBC #### [facility] [address] [place] [address] [place] Alanine aminotransferase [En zymatic activity/volume] in Serum or PlasmaOrdered By: Sharan Ayoub on 05-13-2024 ALT [Catalytic activity/Vol] 110 U/L High [facility] Comment on above: Performed By: #### T ACROLIMUS., CMP, CBC #### [place] [address] [place] Albumin [Mass/volume] in Ser um or Plasma by Bromocresol green (BCG) dye binding methoOrdered By: Sharan Ayoub on 05-13-2024 Albumin BCG dye [Mass/Vol] 3.0 g/dL Low 3.5-5.7 [facility] Alkaline phosphatase [Enzyma tic activity/volume] in Serum or PlasmaOrdered By: Sharan Ayoub on 05-13-2024 ALP [Catalytic activity/Vol] 269 U/L High 34-104 [facility] Comment on above: Result Comment: PERF ORMED BY: [place] [address] PATHOLOGIST MANAGER WINTER MISAEL FOX M.D. Performed By: #### T ACROLIMUS., CMP, CBC #### [facility] [address] [place] [address] Aspartate aminotransferase [ Enzymatic activity/volume] in Serum or PlasmaOrdered By: Sharan Ayoub on 05-13-2024 AST [Catalytic activity/Vol] 118 U/L High 13-39 [facility] Comment on above: Performed By: #### T ACROLIMUS., CMP, CBC #### [facility] [address] [place] [address] Automated basophil %Ordered By: Sharan Ayoub on 05-13-2024 Basophils/100 WBC (Bld) 1.4 % Normal . [facility] Comment on above: Performed By: #### T ACROLIMUS., CMP, CBC #### [address] Automated basophil countOrde red By: Sharan Ayoub on 05-13-2024 Basophils (Bld) [#/Vol] 0.1 10*3/uL Normal 0.0-0.2 [facility] Comment on above: Result Comment: PERF ORMED BY: [place] [address] PATHOLOGIST MANAGER WINTER MISAEL FOX M.D. Performed By: #### T ACROLIMUS., CMP, CBC #### [address] Automated blood monocyte cou ntOrdered By: Sharan Ayoub on 05-13-2024 Monocytes (Bld) [#/Vol] 0.7 10*3/uL Normal 0.0-0.8 [facility] Comment on above: Performed By: #### T ACROLIMUS., CMP, CBC #### [address] Automated eosinophil %Ordere d By: Sharan Ayoub on 05-13-2024 Eosinophils/100 WBC (Bld) 1.3 % Normal . [facility] Comment on above: Performed By: #### T ACROLIMUS., CMP, CBC #### [address] Automated eosinophil countOr dered By: Sharan Ayoub on 05-13-2024 Eosinophils (Bld) [#/Vol] 0.1 10*3/uL Normal 0.0-0.45 [facility] Comment on above: Performed By: #### T ACROLIMUS., CMP, CBC #### [address] Automated monocyte %Ordered By: Sharan Ayoub on 05-13-2024 Monocytes/100 WBC (Bld) 7.8 % Normal . [facility] Comment on above: Performed By: #### T ACROLIMUS., CMP, CBC #### [address] Automated neutrophil %Ordere d By: Sharan Ayoub on 05-13-2024 Neutrophils/100 WBC (Bld) 57.4 % Normal . [facility] Comment on above: Performed By: #### T ACROLIMUS., CMP, CBC #### [address] Bilirubin.total [Mass/volume ] in Serum or PlasmaOrdered By: Sharan Ayoub on 05-13-2024 Bilirubin [Mass/Vol] 3.1 mg/dL High 0.3-1.0 [facility] Comment on above: Samples from [...] By: #### T ACROLIMUS., CMP, CBC #### [address] Calcium [Mass/volume] in Ser um or PlasmaOrdered By: Sharan Ayoub on 05-13-2024 Calcium [Mass/Vol] 8.7 mg/dL Normal 8.6-10.3 [facility] Comment on above: Performed By: #### T ACROLIMUS., CMP, CBC #### [address] Carbon dioxide, total [Moles /volume] in Serum or PlasmaOrdered By: Sharan Ayoub on 05-13-2024 CO2 [Moles/Vol] 32.8 mmol/L High 21.0-31.0 [facility] Comment on above: Performed By: #### T ACROLIMUS., CMP, CBC #### [address] Chloride [Moles/volume] in S kasi or PlasmaOrdered By: Sharan Ayoub on 05-13-2024 Chloride [Moles/Vol] 101 mmol/L Normal 98-107 [facility] Comment on above: Performed By: #### T ACROLIMUS., CMP, CBC #### [address] Complete Blood Count Auto Di ffon 05-13-2024 Mean Corpuscular HGB Conc 33.9 g/dL Normal 32.5-35.6 [facility] Comment on above: Performed By: #### T ACROLIMUS., CMP, CBC #### [address] NRBC% 0.2 /100{WBC} Normal 0-0.5 [facility] Comment on above: Performed By: #### T ACROLIMUS., CMP, CBC #### [address] Comprehensive Metabolic Pane sarah 08-12-2024 Albumin [Mass/Vol] 3.0 g/dL Low 3.5-5.7 [facility] Comment on above: Performed By: #### T ACROLIMUS., CMP, CBC #### [facility] [address] GFR/1.73 sq M.predicted MDRD (S/P/Bld) [Vol rate/Area] mL/min/{1.73_m2} Normal [facility] Comment on above: Performed By: #### T ACROLIMUS., CMP, CBC #### [facility] [address] Creatinine [Mass/volume] in Serum or PlasmaOrdered By: Sharan Ayoub on 05-13-2024 Creatinine [Mass/Vol] 1.04 mg/dL Normal 0.70-1.30 [facility] Comment on above: Performed By: #### T ACROLIMUS., CMP, CBC #### [facility] [address] Erythrocyte distribution wid th [Ratio] by Automated countOrdered By: Sharan Ayoub on 05-13-2024 Erythrocyte distribution width (RBC) [Ratio] 15.3 % High 12.0-14.8 [facility] Comment on above: Performed By: #### T ACROLIMUS., CMP, CBC #### [facility] [address] Erythrocytes [#/volume] in B lood by Automated countOrdered By: Sharan Ayoub on 05-13-2024 RBC (Bld) [#/Vol] 4.67 10*6/uL Normal 3.90-5.60 [facility] Comment on above: Performed By: #### T ACROLIMUS., CMP, CBC #### [facility] [address] Glucose [Mass/volume] in Ser um or PlasmaOrdered By: Sharan Ayoub on 05-13-2024 Glucose [Mass/Vol] 271 mg/dL High 70-100 [facility] Comment on above: ADA recommended refe rence rangeRandom Glucose Reference Range is dependent on time and content of last meal. Glucose of more than 200 mg/dL in a nonstressed, ambulatory subject supports the diagnosis of Diabetes Mellitus. Result Comment: [place] Glucose Reference Range is dependent on time and content of last meal. Glucose of more than 200 mg/dL in a nonstressed, ambulatory subject supports the diagnosis of Diabetes Mellitus. ADA recommended reference range Performed By: #### T ACROLIMUS., CMP, CBC #### [facility] [address] Hematocrit [Volume Fraction] of Blood by Automated countOrdered By: Sharan Ayoub on 05-13-2024 Hematocrit (Bld) [Volume fraction] 42.8 % Normal 38.8-50.0 [facility] Comment on above: Performed By: #### T ACROLIMUS., CMP, CBC #### [address] Hemoglobin [Mass/volume] in BloodOrdered By: Sharan Ayoub on 05-13-2024 Hemoglobin (Bld) [Mass/Vol] 14.5 g/dL Normal 13.0-17.0 [facility] Comment on above: Performed By: #### T ACROLIMUS., CMP, CBC #### [facility] [address] [place] [address] [place] Leukocytes [#/volume] correc roderick for nucleated erythrocytes in Blood by Automated counOrdered By: Sharan Ayoub on 05-13-2024 WBC corrected for nucl RBC Auto (Bld) [#/Vol] 9.1 10*3/uL 4.1-10.5 [facility] Leukocytes [#/volume] in Blo od by Automated countOrdered By: Sharan Ayoub on 05-13-2024 WBC (Bld) [#/Vol] 9.1 10*3/uL Normal 4.1-10.5 [facility] Comment on above: Performed By: #### T ACROLIMUS., CMP, CBC #### [facility] [address] [place] [address] [place] Lymphocytes [#/volume] in Bl ood by Automated countOrdered By: Sharan Ayoub on 05-13-2024 Lymphocytes (Bld) [#/Vol] 2.9 10*3/uL Normal 1.00-4.8 [facility] Comment on above: Performed By: #### T ACROLIMUS., CMP, CBC #### [facility] [address] Lymphocytes/100 leukocytes i n Blood by Automated countOrdered By: Sharan Ayoub on 05-13-2024 Lymphocytes/100 WBC (Bld) 32.1 % Normal . [facility] Comment on above: Performed By: #### T ACROLIMUS., CMP, CBC #### [address] MCH [Entitic mass] by Automa roderick countOrdered By: Sharan Ayoub on 05-13-2024 MCH (RBC) [Entitic mass] 31.1 pg Normal 27.5-35.2 [facility] Comment on above: Performed By: #### T ACROLIMUS., CMP, CBC #### [address] MCHC Auto (RBC) [Mass/Vol]Or dered By: Sharan Ayoub on 05-13-2024 MCHC (RBC) [Mass/Vol] 33.9 g/dL 32.5-35.6 [facility] MCV [Entitic volume] by Auto mated countOrdered By: Sharan Ayoub on 05-13-2024 MCV (RBC) [Entitic vol] 91.8 fL Normal 83.5-101 [facility] Comment on above: Performed By: #### T ACROLIMUS., CMP, CBC #### [address] Neutrophils [#/volume] in Bl ood by Automated countOrdered By: Sharan Ayoub on 05-13-2024 Neutrophils (Bld) [#/Vol] 5.2 10*3/uL Normal 1.8-7.7 [facility] Comment on above: Performed By: #### T ACROLIMUS., CMP, CBC #### [address] No Panel InformationOrdered By: Sharan Ayoub on 05-13-2024 Estimated GFR (CKD-EPI) > 60.0 mL/Min [facility] Creatinine Clearance (Chem N/A [facility] Nucleated erythrocytes [Pres ence] in Blood by Automated countOrdered By: Sharan Ayoub on 05-13-2024 Nucleated RBC Auto Ql (Bld) 0.2 /100{WBC} 0-0.5 [facility] Platelet mean volume [Entiti c volume] in Blood by Automated countOrdered By: Sharan Ayoub on 05-13-2024 Platelet mean volume (Bld) [Entitic vol] 10.7 fL High 6.6-10.1 [facility] Comment on above: Performed By: #### T ACROLIMUS., CMP, CBC #### [facility] [address] [place] [address] Platelets [#/volume] in Bloo d by Automated countOrdered By: Sharan Ayoub on 05-13-2024 Platelets (Bld) [#/Vol] 137 10*3/uL Low 150-450 [facility] Comment on above: Performed By: #### T ACROLIMUS., CMP, CBC #### [facility] [address] [place] [address] [place] Potassium [Moles/volume] in Serum or PlasmaOrdered By: Sharan Ayoub on 05-13-2024 Potassium [Moles/Vol] 3.8 mmol/L Normal 3.5-5.1 [facility] Comment on above: Performed By: #### T ACROLIMUS., CMP, CBC #### [facility] [address] [place] [address] [place] Protein [Mass/volume] in Ser um or PlasmaOrdered By: Sharan Ayoub on 05-13-2024 Protein [Mass/Vol] 6.5 g/dL Normal 6.4-8.9 [facility] Comment on above: Performed By: #### T ACROLIMUS., CMP, CBC #### [facility] [address] [place] [address] Serum globulin measurement b y calculation (mass/volume)Ordered By: Sharan Ayoub on 05-13-2024 Globulin (S) [Mass/Vol] 3.5 g/dL Normal [facility] Comment on above: Performed By: #### T ACROLIMUS., CMP, CBC #### [facility] [address] Serum or plasma albumin/glob ulin mass ratioOrdered By: Sharan Ayoub on 05-13-2024 Albumin/Globulin [Mass ratio] 0.9 {ratio} [facility] Comment on above: Performed By: #### T ACROLIMUS., CMP, CBC #### [facility] [address] [place] [address] Serum or plasma anion gap de terminationOrdered By: Sharan Ayoub on 05-13-2024 Anion gap [Moles/Vol] 10.0 mmol/L Normal 6.0-15.0 [facility] Comment on above: Performed By: #### T ACROLIMUS., CMP, CBC #### [facility] [address] [place] [address] Sodium [Moles/volume] in Ser um or PlasmaOrdered By: Sharan Ayoub on 05-13-2024 Sodium [Moles/Vol] 140 mmol/L Normal 136-145 [facility] Comment on above: Performed By: #### T ACROLIMUS., CMP, CBC #### [address] Tacrolimuson 05-13-2024 Tacrolimus (Bld) [Mass/Vol] 8.5 ng/mL Normal <=15.0 [facility] Comment on above: Order Comment: NOTE: Result was obtained using a chemiluminescent microparticle immunoassay (CMIA) on the [employer] i system. Optimal therapeutic ranges for immunosuppressant drugs depend upon an individual patient's current clinical state, type of organ transplant, time post-transplant, co-administration of other immunosuppressants, and other clinical factors. The results of this test should be correlated with additional clinical and laboratory data before changes in treatment regimens are made. Performed By: #### 1 [id number] #### NORMA Cherry ([id number]) [facility] ([facility]) [address] [place] [address] Tacrolimus (Transplant) No C hgon 05-13-2024 Tacrolimus (Transplant) No Chg Sent to Ref Lab Normal [facility] Comment on above: Result Comment: PERF ORMED BY: [place] [address] PATHOLOGIST MANAGER WINTER MISAEL FOX M.D. Performed By: #### T ACROLIMUS., CMP, CBC #### [facility] [address] Tacrolimus [Mass/volume] in BloodOrdered By: Sharan Ayoub on 05-13-2024 Tacrolimus (Bld) [Mass/Vol] Sent to ref lab [facility] Urea nitrogen [Mass/volume] in Serum or PlasmaOrdered By: Sharan Ayoub on 05-13-2024 Urea nitrogen [Mass/Vol] 15 mg/dL Normal 7-25 [facility] Comment on above: Performed By: #### T ACROLIMUS., CMP, CBC #### [facility] [address] [place] [address] Basophils Auto (Bld) [#/Vol] on 05-08-2024 Basophils (Bld) [#/Vol] 0.0 10 3/uL 0.0-0.1 [facility] Basophils/100 WBC Auto (Bld) on 05-08-2024 Basophils/100 WBC (Bld) 0.4 % 0.2-2.0 [facility] Eosinophils/100 WBC Auto (Bl d)on 05-08-2024 Eosinophils/100 WBC (Bld) 0.0 % Low 0.9-7.0 [facility] Erythrocyte distribution wid th Auto (RBC) [Ratio]on 05-08-2024 Erythrocyte distribution width (RBC) [Ratio] 13.9 % 11.0-15.0 [facility] Estimated glomerular filtrat ion rate (GFR) non- Americanon 05-08-2024 GFR/1.73 sq M.predicted among non-blacks MDRD (S/P/Bld) [Vol rate/Area] 56 mL/min/{1.73_m2} Low >=60 [facility] Globulin Calc (S) [Mass/Vol] on 05-08-2024 Globulin (S) [Mass/Vol] 3.8 g/dL [facility] Hematocrit Auto (Bld) [Volum e fraction]on 05-08-2024 Hematocrit (Bld) [Volume fraction] 40.1 % Low 42.0-54.0 [facility] Hemoglobin [Mass/volume] in Bloodon 05-08-2024 Hemoglobin (Bld) [Mass/Vol] 13.1 g/dL Low 14.0-18.0 [facility] Laboratory - Chemistry and C hemistry - challengeon 05-08-2024 Bilirubin Ql (U) Negative NEGATIVE [facility] Glucose (U) [Mass/Vol] mg/dL Abnormal NEGATIVE [facility] Ketones Ql (U) Negative NEGATIVE [facility] pH (U) 6.5 [pH] 5.0-9.0 [facility] Specific gravity (U) [Rel density] 1.010 1.005-1.025 [facility] Urobilinogen Qn (U) 0.2 {Jacinta'U}/dL 0.2-1.0 [facility] Albumin [Mass/Vol] 2.3 g/dL Low 3.4-5.0 [facility] ALP [Catalytic activity/Vol] 260 U/L High 46-116 [facility] ALT [Catalytic activity/Vol] 116 U/L High 16-63 [facility] AST [Catalytic activity/Vol] 77 U/L High 15-37 [facility] Bilirubin [Mass/Vol] 3.4 mg/dL High 0.2-1.0 [facility] Calcium [Mass/Vol] 8.5 mg/dL 8.5-10.1 [facility] Chloride [Moles/Vol] 99 mmol/L 98-107 [facility] CO2 [Moles/Vol] 29.8 mmol/L 21.0-32.0 [facility] Creatinine [Mass/Vol] 1.47 mg/dL High 0.70-1.30 [facility] GFR/1.73 sq M.predicted MDRD (S/P/Bld) [Vol rate/Area] mL/min/{1.73_m2} >=60 [facility] Glucose [Mass/Vol] 516 mg/dL High 74-106 [facility] Comment on above: RESULTS CALLED TO TESS FERGUSON RN @BY Patti Williamson at 2151 Lactate [Moles/Vol] 1.9 mmol/L 0.4-2.0 [facility] Lipase [Catalytic activity/Vol] 35.0 U/L 16.0-77.0 [facility] Potassium [Moles/Vol] 4.6 mmol/L 3.5-5.1 [facility] Protein [Mass/Vol] 6.1 g/dL Low 6.4-8.2 [facility] Sodium [Moles/Vol] 133 mmol/L Low 136-145 [facility] Urea nitrogen [Mass/Vol] 19.0 mg/dL High 7.0-18.0 [facility] Urea nitrogen/Creatinine [Mass ratio] 12.9 mg/mg [facility] Laboratory - Hematology and Cell countson 05-08-2024 Immature granulocytes/100 WBC (Bld) 1.0 % High 0.0-0.5 [facility] Laboratory - Specimen inform ationon 05-08-2024 Appearance (U) CLEAR CLEAR [facility] Color (U) YELLOW YELLOW [facility] Laboratory - Urinalysison Leukocyte esterase Test strip Ql (U) Negative NEGATIVE [facility] Mucus Ql (Urine sed) NONE SEEN NONE SEEN [facility] Nitrite Ql (U) Negative NEGATIVE [facility] Protein Ql (U) Negative NEG/TRACE [facility] Leukocytes [#/volume] correc rodercik for nucleated erythrocytes in Blood by Automated counon 05-08-2024 WBC corrected for nucl RBC Auto (Bld) [#/Vol] 6.7 10 3/uL 4.0-11.0 [facility] Lymphocytes Auto (Bld) [#/Vo l]on 05-08-2024 Lymphocytes (Bld) [#/Vol] 0.8 10 3/uL Low 1.2-3.8 [facility] Lymphocytes/100 WBC Auto (Bl d)on 05-08-2024 Lymphocytes/100 WBC (Bld) 11.2 % Low 20.5-60.0 [facility] MCH Auto (RBC) [Entitic mass ]on 05-08-2024 MCH (RBC) [Entitic mass] 31.1 pg 25.9-34.0 [facility] MCHC Auto (RBC) [Mass/Vol]on 05-08-2024 MCHC (RBC) [Mass/Vol] 32.7 g/dL 29.9-35.2 [facility] MCV Auto (RBC) [Entitic vol] on 05-08-2024 MCV (RBC) [Entitic vol] 95.2 fL High 80.0-94.0 [facility] Monocytes Auto (Bld) [#/Vol] on 05-08-2024 Monocytes (Bld) [#/Vol] 0.2 10 3/uL Low 0.3-0.8 [facility] Monocytes/100 WBC Auto (Bld) on 05-08-2024 Monocytes/100 WBC (Bld) 3.0 % 1.7-12.0 [facility] Neutrophils Auto (Bld) [#/Vo l]on 05-08-2024 Neutrophils (Bld) [#/Vol] 5.7 10 3/uL 1.4-6.5 [facility] Neutrophils/100 WBC Auto (Bl d)on 05-08-2024 Neutrophils/100 WBC (Bld) 84.4 % High 43.0-75.0 [facility] No Panel Informationon 05-08 Urine Bacteria NONE SEEN #/HPF NONE SEEN [facility] Urine Culture Reflexed NO [facility] Urine Occult Blood MODERATE Abnormal NEGATIVE [facility] Urine Other Casts NONE SEEN #/LPF [facility]ONE [facility] Urine Other Crystals None Seen #/HPF None Seen [facility] Urine RBC 5-10 #/HPF Abnormal 0-2 [facility] Urine Squamous Epithelial Cells NONE SEEN #/LPF NONE/RARE [facility] Urine WBC 0-2 #/HPF Abnormal NONE SEEN [facility] Acetone Level Negative NEGATIVE [facility] Eosinophils # (Auto) 0.0 10 3/uL 0.0-0.7 [facility] Immature Granulocyte # (Auto) 0.07 10 3/uL High 0.00-0.03 [facility] Platelet mean volume Auto (B ld) [Entitic vol]on 05-08-2024 Platelet mean volume (Bld) [Entitic vol] 12.2 fL 9.5-13.5 [facility] Platelets Auto (Bld) [#/Vol] on 05-08-2024 Platelets (Bld) [#/Vol] 120 10 3/uL Low 150-450 [facility] RBC Auto (Bld) [#/Vol]on RBC (Bld) [#/Vol] 4.21 10 6/uL Low 4.70-6.10 [facility] Serum or plasma albumin/glob ulin mass ratioon 05-08-2024 Albumin/Globulin [Mass ratio] 0.6 {ratio} [facility] Serum or plasma anion gap de terminationon 05-08-2024 Anion gap [Moles/Vol] 8.8 mmol/L [facility] Alanine aminotransferase [En zymatic activity/volume] in Serum or PlasmaOrdered By: Sharan Ayoub on 04-09-2024 ALT [Catalytic activity/Vol] 95 U/L High 7-52 [facility] Comment on above: Performed By: #### T ACROLIMUS., CMP, CBC #### [address] Albumin [Mass/volume] in Ser um or Plasma by Bromocresol green (BCG) dye binding methoOrdered By: Sharan Ayoub on 04-09-2024 Albumin BCG dye [Mass/Vol] 2.8 g/dL Low 3.5-5.7 [facility] Alkaline phosphatase [Enzyma tic activity/volume] in Serum or PlasmaOrdered By: Sharan Ayoub on 04-09-2024 ALP [Catalytic activity/Vol] 167 U/L High 34-104 [facility] Comment on above: Result Comment: PERF ORMED BY: [place] [address] PATHOLOGIST MANAGER WINTER MISAEL FOX M.D. Performed By: #### T ACROLIMUS., CMP, CBC #### [address] Aspartate aminotransferase [ Enzymatic activity/volume] in Serum or PlasmaOrdered By: Sharan Ayoub on 04-09-2024 AST [Catalytic activity/Vol] 70 U/L High 13-39 [facility] Comment on above: Performed By: #### T ACROLIMUS., CMP, CBC #### [address] Automated basophil %Ordered By: Sharan Ayoub on 04-09-2024 Basophils/100 WBC (Bld) 1.0 % Normal . [facility] Comment on above: Performed By: #### T ACROLIMUS., CMP, CBC #### [address] Automated basophil countOrde red By: Sharan Ayoub on 04-09-2024 Basophils (Bld) [#/Vol] 0.1 10*3/uL Normal 0.0-0.2 [facility] Comment on above: Result Comment: PERF ORMED BY: [place] [address] PATHOLOGIST MANAGER WINTER MISAEL FOX M.D. Performed By: #### T ACROLIMUS., CMP, CBC #### [address] Automated blood monocyte cou ntOrdered By: Sharan Ayoub on 04-09-2024 Monocytes (Bld) [#/Vol] 0.6 10*3/uL Normal 0.0-0.8 [facility] Comment on above: Performed By: #### T ACROLIMUS., CMP, CBC #### [address] Automated eosinophil %Ordere d By: Sharan Ayoub on 04-09-2024 Eosinophils/100 WBC (Bld) 0.9 % Normal . [facility] Comment on above: Performed By: #### T ACROLIMUS., CMP, CBC #### [address] [address] [place] Automated eosinophil countOr dered By: Sharan Ayoub on 04-09-2024 Eosinophils (Bld) [#/Vol] 0.1 10*3/uL Normal 0.0-0.45 [facility] Comment on above: Performed By: #### T ACROLIMUS., CMP, CBC #### [address] Automated monocyte %Ordered By: Sharan Ayoub on 04-09-2024 Monocytes/100 WBC (Bld) 6.5 % Normal . [facility] Comment on above: Performed By: #### T ACROLIMUS., CMP, CBC #### [facility] [address] [place] [address] Automated neutrophil %Ordere d By: Sharan Ayoub on 04-09-2024 Neutrophils/100 WBC (Bld) 64.2 % Normal . [facility] Comment on above: Performed By: #### T ACROLIMUS., CMP, CBC #### [address] Bilirubin.total [Mass/volume ] in Serum or PlasmaOrdered By: Sharan Ayoub on 04-09-2024 Bilirubin [Mass/Vol] 3.1 mg/dL High 0.3-1.0 [facility] Comment on above: Samples from [...] By: #### T ACROLIMUS., CMP, CBC #### [address] Calcium [Mass/volume] in Ser um or PlasmaOrdered By: Sharan Ayoub on 04-09-2024 Calcium [Mass/Vol] 8.5 mg/dL Low 8.6-10.3 [facility] Comment on above: Performed By: #### T ACROLIMUS., CMP, CBC #### [facility] [address] Carbon dioxide, total [Moles /volume] in Serum or PlasmaOrdered By: Sharan Ayoub on 04-09-2024 CO2 [Moles/Vol] 32.5 mmol/L High 21.0-31.0 [facility] Comment on above: Performed By: #### T ACROLIMUS., CMP, CBC #### [facility] [address] [place] [address] Chloride [Moles/volume] in S kasi or PlasmaOrdered By: Sharan Ayoub on 04-09-2024 Chloride [Moles/Vol] 105 mmol/L Normal 98-107 [facility] Comment on above: Performed By: #### T ACROLIMUS., CMP, CBC #### [facility] [address] [place] [address] Complete Blood Count Auto Di ffon 04-09-2024 Mean Corpuscular HGB Conc 33.7 g/dL Normal 32.5-35.6 [facility] Comment on above: Performed By: #### T ACROLIMUS., CMP, CBC #### [facility] [address] [place] [address] NRBC% 0.2 /100{WBC} Normal 0-0.5 [facility] Comment on above: Performed By: #### T ACROLIMUS., CMP, CBC #### [facility] [address] Comprehensive Metabolic Pane sarah 04-09-2024 Albumin [Mass/Vol] 2.8 g/dL Low 3.5-5.7 [facility] Comment on above: Performed By: #### T ACROLIMUS., CMP, CBC #### [facility] [address] [place] [address] GFR/1.73 sq M.predicted MDRD (S/P/Bld) [Vol rate/Area] mL/min/{1.73_m2} Normal [facility] Comment on above: Performed By: #### T ACROLIMUS., CMP, CBC #### [facility] [address] Creatinine [Mass/volume] in Serum or PlasmaOrdered By: Sharan Ayoub on 04-09-2024 Creatinine [Mass/Vol] 1.06 mg/dL Normal 0.70-1.30 [facility] Comment on above: Performed By: #### T ACROLIMUS., CMP, CBC #### [facility] [address] Erythrocyte distribution wid th [Ratio] by Automated countOrdered By: Sharan Ayoub on 04-09-2024 Erythrocyte distribution width (RBC) [Ratio] 14.5 % Normal 12.0-14.8 [facility] Comment on above: Performed By: #### T ACROLIMUS., CMP, CBC #### [place] [address] [place] Erythrocytes [#/volume] in B lood by Automated countOrdered By: Sharan Ayoub on 04-09-2024 RBC (Bld) [#/Vol] 4.31 10*6/uL Normal 3.90-5.60 [facility] Comment on above: Performed By: #### T ACROLIMUS., CMP, CBC #### [address] Glucose [Mass/volume] in Ser um or PlasmaOrdered By: Sharan Ayoub on 04-09-2024 Glucose [Mass/Vol] 189 mg/dL High 70-100 [facility] Comment on above: ADA recommended refe rence rangeRandom Glucose Reference Range is dependent on time and content of last meal. Glucose of more than 200 mg/dL in a nonstressed, ambulatory subject supports the diagnosis of Diabetes Mellitus. Result Comment: [place] Glucose Reference Range is dependent on time and content of last meal. Glucose of more than 200 mg/dL in a nonstressed, ambulatory subject supports the diagnosis of Diabetes Mellitus. ADA recommended reference range Performed By: #### T ACROLIMUS., CMP, CBC #### [facility] [address] Hematocrit [Volume Fraction] of Blood by Automated countOrdered By: Sharan Ayoub on 04-09-2024 Hematocrit (Bld) [Volume fraction] 40.1 % Normal 38.8-50.0 [facility] Comment on above: Performed By: #### T ACROLIMUS., CMP, CBC #### [facility] [address] [place] [address] Hemoglobin [Mass/volume] in BloodOrdered By: Sharan Ayoub on 04-09-2024 Hemoglobin (Bld) [Mass/Vol] 13.5 g/dL Normal 13.0-17.0 [facility] Comment on above: Performed By: #### T ACROLIMUS., CMP, CBC #### [facility] [address] [place] [address] Leukocytes [#/volume] correc roderick for nucleated erythrocytes in Blood by Automated counOrdered By: Sharan Ayoub on 04-09-2024 WBC corrected for nucl RBC Auto (Bld) [#/Vol] 9.9 10*3/uL 4.1-10.5 [facility] Leukocytes [#/volume] in Blo od by Automated countOrdered By: Sharan Ayoub on 04-09-2024 WBC (Bld) [#/Vol] 9.9 10*3/uL Normal 4.1-10.5 [facility] Comment on above: Performed By: #### T ACROLIMUS., CMP, CBC #### [facility] [address] [place] [address] [place] Lymphocytes [#/volume] in Bl ood by Automated countOrdered By: Sharan Ayoub on 04-09-2024 Lymphocytes (Bld) [#/Vol] 2.7 10*3/uL Normal 1.00-4.8 [facility] Comment on above: Performed By: #### T ACROLIMUS., CMP, CBC #### [facility] [address] [place] [address] [place] Lymphocytes/100 leukocytes i n Blood by Automated countOrdered By: Sharan Ayoub on 04-09-2024 Lymphocytes/100 WBC (Bld) 27.4 % Normal . [facility] Comment on above: Performed By: #### T ACROLIMUS., CMP, CBC #### [facility] [address] MCH [Entitic mass] by Automa roderick countOrdered By: Sharan Ayoub on 04-09-2024 MCH (RBC) [Entitic mass] 31.4 pg Normal 27.5-35.2 [facility] Comment on above: Performed By: #### T ACROLIMUS., CMP, CBC #### [facility] [address] [place] [address] MCHC Auto (RBC) [Mass/Vol]Or dered By: Sharan Ayoub on 04-09-2024 MCHC (RBC) [Mass/Vol] 33.7 g/dL 32.5-35.6 [facility] MCV [Entitic volume] by Auto mated countOrdered By: Sharan Ayoub on 04-09-2024 MCV (RBC) [Entitic vol] 93.1 fL Normal 83.5-101 [facility] Comment on above: Performed By: #### T ACROLIMUS., CMP, CBC #### [facility] [address] [place] [address] Neutrophils [#/volume] in Bl ood by Automated countOrdered By: Sharan Ayoub on 04-09-2024 Neutrophils (Bld) [#/Vol] 6.4 10*3/uL Normal 1.8-7.7 [facility] Comment on above: Performed By: #### T ACROLIMUS., CMP, CBC #### [facility] [address] [place] [address] No Panel InformationOrdered By: Sharan Ayoub on 04-09-2024 Estimated GFR (CKD-EPI) > 60.0 mL/Min [facility] Creatinine Clearance (Chem N/A [facility] Nucleated erythrocytes [Pres ence] in Blood by Automated countOrdered By: Sharan Ayoub on 04-09-2024 Nucleated RBC Auto Ql (Bld) 0.2 /100{WBC} 0-0.5 [facility] Platelet mean volume [Entiti c volume] in Blood by Automated countOrdered By: Sharan Ayoub on 04-09-2024 Platelet mean volume (Bld) [Entitic vol] 10.2 fL High 6.6-10.1 [facility] Comment on above: Performed By: #### T ACROLIMUS., CMP, CBC #### [facility] [address] Platelets [#/volume] in Bloo d by Automated countOrdered By: Sharan Ayoub on 04-09-2024 Platelets (Bld) [#/Vol] 146 10*3/uL Low 150-450 [facility] Comment on above: Performed By: #### T ACROLIMUS., CMP, CBC #### [address] Potassium [Moles/volume] in Serum or PlasmaOrdered By: Sharan Ayoub on 04-09-2024 Potassium [Moles/Vol] 3.8 mmol/L Normal 3.5-5.1 [facility] Comment on above: Performed By: #### T ACROLIMUS., CMP, CBC #### [facility] [address] [place] [address] Protein [Mass/volume] in Ser um or PlasmaOrdered By: Sharan Ayoub on 04-09-2024 Protein [Mass/Vol] 5.8 g/dL Low 6.4-8.9 [facility] Comment on above: Performed By: #### T ACROLIMUS., CMP, CBC #### [facility] [address] Serum globulin measurement b y calculation (mass/volume)Ordered By: Sharan Ayoub on 04-09-2024 Globulin (S) [Mass/Vol] 3.0 g/dL [facility] Comment on above: Performed By: #### T ACROLIMUS., CMP, CBC #### [facility] [address] [place] [address] Serum or plasma albumin/glob ulin mass ratioOrdered By: Sharan Ayoub on 04-09-2024 Albumin/Globulin [Mass ratio] 0.9 {ratio} Normal [facility] Comment on above: Performed By: #### T ACROLIMUS., CMP, CBC #### [address] Serum or plasma anion gap de terminationOrdered By: Sharan Ayoub on 04-09-2024 Anion gap [Moles/Vol] 8.3 mmol/L Normal 6.0-15.0 [facility] Comment on above: Performed By: #### T ACROLIMUS., CMP, CBC #### [address] Sodium [Moles/volume] in Ser um or PlasmaOrdered By: Sharan Ayoub on 04-09-2024 Sodium [Moles/Vol] 142 mmol/L Normal 136-145 [facility] Comment on above: Performed By: #### T ACROLIMUS., CMP, CBC #### [address] Tacrolimuson 04-09-2024 Tacrolimus (Bld) [Mass/Vol] 8.9 ng/mL Normal <=15.0 [facility] Comment on above: Order Comment: NOTE: Result was obtained using a chemiluminescent microparticle immunoassay (CMIA) on the [employer] i system. Optimal therapeutic ranges for immunosuppressant drugs depend upon an individual patient's current clinical state, type of organ transplant, time post-transplant, co-administration of other immunosuppressants, and other clinical factors. The results of this test should be correlated with additional clinical and laboratory data before changes in treatment regimens are made. Performed By: #### 1 1253-2 #### NORMA Cherry ([id number]) [facility] ([facility]) [address] [place] [address] Tacrolimus (Transplant) No C hgon 04-09-2024 Tacrolimus (Transplant) No Chg Sent to Ref Lab Normal [facility] Comment on above: Result Comment: PERF ORMED BY: [place] [address] PATHOLOGIST MANAGER WINTER MISAEL FOX M.D. Performed By: #### T ACROLIMUS., CMP, CBC #### [facility] [address] Tacrolimus [Mass/volume] in BloodOrdered By: Sharan Ayoub on 04-09-2024 Tacrolimus (Bld) [Mass/Vol] Sent to ref lab [facility] Urea nitrogen [Mass/volume] in Serum or PlasmaOrdered By: Sharan Ayoub on 04-09-2024 Urea nitrogen [Mass/Vol] 21 mg/dL Normal 7-25 [facility] Comment on above: Performed By: #### T ACROLIMUS., CMP, CBC #### [facility] [address] [place] [address] Alanine aminotransferase [En zymatic activity/volume] in Serum or PlasmaOrdered By: Sharan Ayoub on 2024 ALT [Catalytic activity/Vol] 98 U/L High 7-52 [facility] Comment on above: Performed By: #### C MP, CBC, TACROLIMUS. #### [facility] [address] [place] [address] [place] Albumin [Mass/volume] in Ser um or Plasma by Bromocresol green (BCG) dye binding methoOrdered By: Sharan Ayoub on 2024 Albumin BCG dye [Mass/Vol] 3.2 g/dL Low 3.5-5.7 [facility] Alkaline phosphatase [Enzyma tic activity/volume] in Serum or PlasmaOrdered By: Sharan Ayoub on 2024 ALP [Catalytic activity/Vol] 154 U/L High 34-104 [facility] Comment on above: Result Comment: PERF ORMED BY: [place] [address] PATHOLOGIST MANAGER WINTER MISAEL FOX M.D. Performed By: #### C MP, CBC, TACROLIMUS. #### [facility] [address] [place] [address] [place] Aspartate aminotransferase [ Enzymatic activity/volume] in Serum or PlasmaOrdered By: Sharan Ayoub on 2024 AST [Catalytic activity/Vol] 52 U/L High 13-39 [facility] Comment on above: Performed By: #### C MP, CBC, TACROLIMUS. #### [address] Automated basophil %Ordered By: Sharan Ayoub on 2024 Basophils/100 WBC (Bld) 0.6 % Normal . [facility] Comment on above: Performed By: #### C MP, CBC, TACROLIMUS. #### [address] Automated basophil countOrde red By: Sharan Ayoub on 2024 Basophils (Bld) [#/Vol] 0.1 10*3/uL Normal 0.0-0.2 [facility] Comment on above: Result Comment: PERF ORMED BY: [place] [address] PATHOLOGIST MANAGER WINTER MISAEL FOX M.D. Performed By: #### C MP, CBC, TACROLIMUS. #### [address] Automated blood monocyte cou ntOrdered By: Sharan Ayoub on 2024 Monocytes (Bld) [#/Vol] 0.8 10*3/uL Normal 0.0-0.8 [facility] Comment on above: Performed By: #### C MP, CBC, TACROLIMUS. #### [address] Automated eosinophil %Ordere d By: Sharan Ayoub on 2024 Eosinophils/100 WBC (Bld) 0.7 % Normal . [facility] Comment on above: Performed By: #### C MP, CBC, TACROLIMUS. #### [address] Automated eosinophil countOr dered By: Sharan Ayoub on 2024 Eosinophils (Bld) [#/Vol] 0.1 10*3/uL Normal 0.0-0.45 [facility] Comment on above: Performed By: #### C MP, CBC, TACROLIMUS. #### [address] Automated monocyte %Ordered By: Sharan Ayoub on 2024 Monocytes/100 WBC (Bld) 6.9 % Normal . [facility] Comment on above: Performed By: #### C MP, CBC, TACROLIMUS. #### [address] Automated neutrophil %Ordere d By: Sharan Ayoub on 2024 Neutrophils/100 WBC (Bld) 55.5 % Normal . [facility] Comment on above: Performed By: #### C MP, CBC, TACROLIMUS. #### [facility] [address] Bilirubin.total [Mass/volume ] in Serum or PlasmaOrdered By: Sharan Ayoub on 2024 Bilirubin [Mass/Vol] 2.3 mg/dL High 0.3-1.0 [facility] Comment on above: Samples from [...] By: #### C MP, CBC, TACROLIMUS. #### [address] Calcium [Mass/volume] in Ser um or PlasmaOrdered By: Sharan Ayoub on 2024 Calcium [Mass/Vol] 8.8 mg/dL Normal 8.6-10.3 [facility] Comment on above: Performed By: #### C MP, CBC, TACROLIMUS. #### [address] Carbon dioxide, total [Moles /volume] in Serum or PlasmaOrdered By: Sharan Ayoub on 2024 CO2 [Moles/Vol] 29.7 mmol/L Normal 21.0-31.0 [facility] Comment on above: Performed By: #### C MP, CBC, TACROLIMUS. #### [address] Chloride [Moles/volume] in S kasi or PlasmaOrdered By: Sharan Ayoub on 2024 Chloride [Moles/Vol] 107 mmol/L Normal 98-107 [facility] Comment on above: Performed By: #### C MP, CBC, TACROLIMUS. #### [address] Complete Blood Count Auto Di ffon 2024 Mean Corpuscular HGB Conc 33.6 g/dL Normal 32.5-35.6 [facility] Comment on above: Performed By: #### C MP, CBC, TACROLIMUS. #### [address] NRBC% 0.2 /100{WBC} Normal 0-0.5 [facility] Comment on above: Performed By: #### C MP, CBC, TACROLIMUS. #### [address] Comprehensive Metabolic Pane sarah 2024 Albumin [Mass/Vol] 3.2 g/dL Low 3.5-5.7 [facility] Comment on above: Performed By: #### C MP, CBC, TACROLIMUS. #### [address] GFR/1.73 sq M.predicted MDRD (S/P/Bld) [Vol rate/Area] mL/min/{1.73_m2} Normal [facility] Comment on above: Performed By: #### C MP, CBC, TACROLIMUS. #### [address] Creatinine [Mass/volume] in Serum or PlasmaOrdered By: Sharan Ayoub on 2024 Creatinine [Mass/Vol] 1.01 mg/dL Normal 0.70-1.30 [facility] Comment on above: Performed By: #### C MP, CBC, TACROLIMUS. #### [place] [address] Erythrocyte distribution wid th [Ratio] by Automated countOrdered By: Sharan Ayoub on 2024 Erythrocyte distribution width (RBC) [Ratio] 14.7 % Normal 12.0-14.8 [facility] Comment on above: Performed By: #### C MP, CBC, TACROLIMUS. #### [facility] [address] Erythrocytes [#/volume] in B lood by Automated countOrdered By: Sharan Ayoub on 2024 RBC (Bld) [#/Vol] 4.48 10*6/uL Normal 3.90-5.60 [facility] Comment on above: Performed By: #### C MP, CBC, TACROLIMUS. #### [address] Glucose [Mass/volume] in Ser um or PlasmaOrdered By: Sharan Ayoub on 2024 Glucose [Mass/Vol] 125 mg/dL High 70-100 [facility] Comment on above: ADA recommended refe rence rangeRandom Glucose Reference Range is dependent on time and content of last meal. Glucose of more than 200 mg/dL in a nonstressed, ambulatory subject supports the diagnosis of Diabetes Mellitus. Result Comment: [place] om Glucose Reference Range is dependent on time and content of last meal. Glucose of more than 200 mg/dL in a nonstressed, ambulatory subject supports the diagnosis of Diabetes Mellitus. ADA recommended reference range Performed By: #### C MP, CBC, TACROLIMUS. #### [address] Hematocrit [Volume Fraction] of Blood by Automated countOrdered By: Sharan Ayoub on 2024 Hematocrit (Bld) [Volume fraction] 41.8 % Normal 38.8-50.0 [facility] Comment on above: Performed By: #### C MP, CBC, TACROLIMUS. #### [place] [address] [place] Hemoglobin [Mass/volume] in BloodOrdered By: Sharan Ayoub on 2024 Hemoglobin (Bld) [Mass/Vol] 14.0 g/dL Normal 13.0-17.0 [facility] Comment on above: Performed By: #### C MP, CBC, TACROLIMUS. #### [address] Leukocytes [#/volume] correc roderick for nucleated erythrocytes in Blood by Automated counOrdered By: Sharan Ayoub on 2024 WBC corrected for nucl RBC Auto (Bld) [#/Vol] 11.8 10*3/uL High 4.1-10.5 [facility] Leukocytes [#/volume] in Blo od by Automated countOrdered By: Sharan Ayoub on 2024 WBC (Bld) [#/Vol] 11.8 10*3/uL High 4.1-10.5 [facility] Comment on above: Performed By: #### C MP, CBC, TACROLIMUS. #### [address] Lymphocytes [#/volume] in Bl ood by Automated countOrdered By: Sharan Ayoub on 2024 Lymphocytes (Bld) [#/Vol] 4.3 10*3/uL Normal 1.00-4.8 [facility] Comment on above: Performed By: #### C MP, CBC, TACROLIMUS. #### [address] Lymphocytes/100 leukocytes i n Blood by Automated countOrdered By: Sharan Ayoub on 2024 Lymphocytes/100 WBC (Bld) 36.3 % Normal . [facility] Comment on above: Performed By: #### C MP, CBC, TACROLIMUS. #### [place] [address] [place] MCH [Entitic mass] by Automa roderick countOrdered By: Sharan Ayoub on 2024 MCH (RBC) [Entitic mass] 31.4 pg Normal 27.5-35.2 [facility] Comment on above: Performed By: #### C MP, CBC, TACROLIMUS. #### [address] [place] [address] [place] MCHC Auto (RBC) [Mass/Vol]Or dered By: Sharan Ayoub on 2024 MCHC (RBC) [Mass/Vol] 33.6 g/dL 32.5-35.6 [facility] MCV [Entitic volume] by Auto mated countOrdered By: Sharan Ayoub on 2024 MCV (RBC) [Entitic vol] 93.3 fL Normal 83.5-101 [facility] Comment on above: Performed By: #### C MP, CBC, TACROLIMUS. #### [facility] [address] [place] [address] Neutrophils [#/volume] in Bl ood by Automated countOrdered By: Sharan Ayoub on 2024 Neutrophils (Bld) [#/Vol] 6.6 10*3/uL Normal 1.8-7.7 [facility] Comment on above: Performed By: #### C MP, CBC, TACROLIMUS. #### [facility] [address] [place] [address] No Panel InformationOrdered By: Sharan Ayoub on 2024 Estimated GFR (CKD-EPI) > 60.0 mL/Min [facility] Creatinine Clearance (Chem N/A [facility] Nucleated erythrocytes [Pres ence] in Blood by Automated countOrdered By: Sharan Ayoub on 2024 Nucleated RBC Auto Ql (Bld) 0.2 /100{WBC} 0-0.5 [facility] Platelet mean volume [Entiti c volume] in Blood by Automated countOrdered By: Sharan Ayoub on 2024 Platelet mean volume (Bld) [Entitic vol] 11.6 fL High 6.6-10.1 [facility] Comment on above: Performed By: #### C MP, CBC, TACROLIMUS. #### [facility] [address] [place] [address] Platelets [#/volume] in Bloo d by Automated countOrdered By: Sharan Ayoub on 2024 Platelets (Bld) [#/Vol] 161 10*3/uL Normal 150-450 [facility] Comment on above: Performed By: #### C MP, CBC, TACROLIMUS. #### [facility] [address] [place] [address] Potassium [Moles/volume] in Serum or PlasmaOrdered By: Sharan Ayoub on 2024 Potassium [Moles/Vol] 3.8 mmol/L Normal 3.5-5.1 [facility] Comment on above: Performed By: #### C MP, CBC, TACROLIMUS. #### [facility] [address] [place] [address] Protein [Mass/volume] in Ser um or PlasmaOrdered By: Sharan Ayoub on 2024 Protein [Mass/Vol] 6.5 g/dL Normal 6.4-8.9 [facility] Comment on above: Performed By: #### C MP, CBC, TACROLIMUS. #### [facility] [address] [place] [address] Serum globulin measurement b y calculation (mass/volume)Ordered By: Sharan Ayoub on 2024 Globulin (S) [Mass/Vol] 3.3 g/dL [facility] Comment on above: Performed By: #### C MP, CBC, TACROLIMUS. #### [facility] [address] [place] [address] Serum or plasma albumin/glob ulin mass ratioOrdered By: Sharan Ayoub on 2024 Albumin/Globulin [Mass ratio] 1.0 {ratio} [facility] Comment on above: Performed By: #### C MP, CBC, TACROLIMUS. #### [facility] [address] [place] [address] Serum or plasma anion gap de terminationOrdered By: Sharan Ayoub on 2024 Anion gap [Moles/Vol] 8.1 mmol/L Normal 6.0-15.0 [facility] Comment on above: Performed By: #### C MP, CBC, TACROLIMUS. #### [facility] [address] [place] [address] Sodium [Moles/volume] in Ser um or PlasmaOrdered By: Sharan Ayoub on 2024 Sodium [Moles/Vol] 141 mmol/L Normal 136-145 [facility] Comment on above: Performed By: #### C MP, CBC, TACROLIMUS. #### [address] Tacrolimuson 2024 Tacrolimus (Bld) [Mass/Vol] 10.1 ng/mL Normal <=15.0 [facility] Comment on above: Order Comment: NOTE: Result was obtained using a chemiluminescent microparticle immunoassay (CMIA) on the [employer] i system. Optimal therapeutic ranges for immunosuppressant drugs depend upon an individual patient's current clinical state, type of organ transplant, time post-transplant, co-administration of other immunosuppressants, and other clinical factors. The results of this test should be correlated with additional clinical and laboratory data before changes in treatment regimens are made. Performed By: #### 1 1253-2 #### NORMA Cherry ([id number]) [facility] ([facility]) [id number] [place] [address] Tacrolimus (Transplant) No C hgon 2024 Tacrolimus (Transplant) No Chg Sent to Ref Lab Normal [facility] Comment on above: Result Comment: PERF ORMED BY: [place] [address] PATHOLOGIST MANAGER WINTER MISAEL FOX M.D. Performed By: #### C MP, CBC, TACROLIMUS. #### [address] Tacrolimus [Mass/volume] in BloodOrdered By: Sharan Ayoub on 2024 Tacrolimus (Bld) [Mass/Vol] Sent to ref lab [facility] Urea nitrogen [Mass/volume] in Serum or PlasmaOrdered By: Sharan Ayoub on 2024 Urea nitrogen [Mass/Vol] 21 mg/dL Normal 7-25 [facility] Comment on above: Performed By: #### C MP, CBC, TACROLIMUS. #### [address] [address] [place] Alanine aminotransferase [En zymatic activity/volume] in Serum or PlasmaOrdered By: Sharan Ayoub on 03-06-2024 ALT [Catalytic activity/Vol] 109 U/L High 7-52 [facility] Comment on above: Performed By: #### T ACROLIMUS., CMP, CBC #### [facility] [address] [place] [address] [place] Albumin [Mass/volume] in Ser um or Plasma by Bromocresol green (BCG) dye binding methoOrdered By: Sharan Ayoub on 03-06-2024 Albumin BCG dye [Mass/Vol] 3.1 g/dL Low 3.5-5.7 [facility] Alkaline phosphatase [Enzyma tic activity/volume] in Serum or PlasmaOrdered By: Sharan Ayoub on 03-06-2024 ALP [Catalytic activity/Vol] 148 U/L High 34-104 [facility] Comment on above: Result Comment: PERF ORMED BY: [place] [address] PATHOLOGIST MANAGER WINTER MISAEL FOX M.D. Performed By: #### T ACROLIMUS., CMP, CBC #### [facility] [address] [place] [address] Aspartate aminotransferase [ Enzymatic activity/volume] in Serum or PlasmaOrdered By: Sharan Ayoub on 03-06-2024 AST [Catalytic activity/Vol] 70 U/L High 13-39 [facility] Comment on above: Performed By: #### T ACROLIMUS., CMP, CBC #### [facility] [address] [place] [address] Automated basophil %Ordered By: Sharan Ayoub on 03-06-2024 Basophils/100 WBC (Bld) 0.6 % Normal . [facility] Comment on above: Performed By: #### T ACROLIMUS., CMP, CBC #### [facility] [address] [place] [address] Automated basophil countOrde red By: Sharan Ayoub on 03-06-2024 Basophils (Bld) [#/Vol] 0.1 10*3/uL Normal 0.0-0.2 [facility] Comment on above: Result Comment: PERF ORMED BY: [place] [address] PATHOLOGIST MANAGER WINTER MISAEL FOX M.D. Performed By: #### T ACROLIMUS., CMP, CBC #### [address] Automated blood monocyte cou ntOrdered By: Sharan Ayoub on 03-06-2024 Monocytes (Bld) [#/Vol] 0.6 10*3/uL Normal 0.0-0.8 [facility] Comment on above: Performed By: #### T ACROLIMUS., CMP, CBC #### [address] Automated eosinophil %Ordere d By: Sharan Ayoub on 03-06-2024 Eosinophils/100 WBC (Bld) 0.6 % Normal . [facility] Comment on above: Performed By: #### T ACROLIMUS., CMP, CBC #### [address] Automated eosinophil countOr dered By: Sharan Ayoub on 03-06-2024 Eosinophils (Bld) [#/Vol] 0.1 10*3/uL Normal 0.0-0.45 [facility] Comment on above: Performed By: #### T ACROLIMUS., CMP, CBC #### [facility] [address] [place] [address] Automated monocyte %Ordered By: Sharan Ayoub on 03-06-2024 Monocytes/100 WBC (Bld) 6.5 % Normal . [facility] Comment on above: Performed By: #### T ACROLIMUS., CMP, CBC #### [address] Automated neutrophil %Ordere d By: Sharan Ayoub on 03-06-2024 Neutrophils/100 WBC (Bld) 54.6 % Normal . [facility] Comment on above: Performed By: #### T ACROLIMUS., CMP, CBC #### [facility] [address] Bilirubin.total [Mass/volume ] in Serum or PlasmaOrdered By: Sharan Ayoub on 03-06-2024 Bilirubin [Mass/Vol] 2.1 mg/dL High 0.3-1.0 [facility] Comment on above: Samples from [...] By: #### T ACROLIMUS., CMP, CBC #### [facility] [address] Calcium [Mass/volume] in Ser um or PlasmaOrdered By: Sharan Ayoub on 03-06-2024 Calcium [Mass/Vol] 8.9 mg/dL Normal 8.6-10.3 [facility] Comment on above: Performed By: #### T ACROLIMUS., CMP, CBC #### [address] Carbon dioxide, total [Moles /volume] in Serum or PlasmaOrdered By: Sharan Ayoub on 03-06-2024 CO2 [Moles/Vol] 28.2 mmol/L Normal 21.0-31.0 [facility] Comment on above: Performed By: #### T ACROLIMUS., CMP, CBC #### [facility] [address] [place] [address] [place] Chloride [Moles/volume] in S kasi or PlasmaOrdered By: Sharan Ayoub on 03-06-2024 Chloride [Moles/Vol] 104 mmol/L Normal 98-107 [facility] Comment on above: Performed By: #### T ACROLIMUS., CMP, CBC #### [facility] [address] Complete Blood Count Auto Di ffon 03-06-2024 Mean Corpuscular HGB Conc 33.8 g/dL Normal 32.5-35.6 [facility] Comment on above: Performed By: #### T ACROLIMUS., CMP, CBC #### [facility] [address] [place] [address] NRBC% 0.2 /100{WBC} Normal 0-0.5 [facility] Comment on above: Performed By: #### T ACROLIMUS., CMP, CBC #### [facility] [address] [place] [address] Comprehensive Metabolic Pane sarah 03-06-2024 Albumin [Mass/Vol] 3.1 g/dL Low 3.5-5.7 [facility] Comment on above: Performed By: #### T ACROLIMUS., CMP, CBC #### [address] GFR/1.73 sq M.predicted MDRD (S/P/Bld) [Vol rate/Area] mL/min/{1.73_m2} Normal [facility] Comment on above: Performed By: #### T ACROLIMUS., CMP, CBC #### [facility] [address] [place] [address] Creatinine [Mass/volume] in Serum or PlasmaOrdered By: Sharan Ayoub on 03-06-2024 Creatinine [Mass/Vol] 1.10 mg/dL Normal 0.70-1.30 [facility] Comment on above: Performed By: #### T ACROLIMUS., CMP, CBC #### [facility] [address] [place] [address] Erythrocyte distribution wid th [Ratio] by Automated countOrdered By: Sharan Ayoub on 03-06-2024 Erythrocyte distribution width (RBC) [Ratio] 14.9 % High 12.0-14.8 [facility] Comment on above: Performed By: #### T ACROLIMUS., CMP, CBC #### [facility] [address] [place] [address] Erythrocytes [#/volume] in B lood by Automated countOrdered By: Sharan Ayoub on 03-06-2024 RBC (Bld) [#/Vol] 4.28 10*6/uL Normal 3.90-5.60 [facility] Comment on above: Performed By: #### T ACROLIMUS., CMP, CBC #### [facility] [address] Glucose [Mass/volume] in Ser um or PlasmaOrdered By: Sharan Ayoub on 03-06-2024 Glucose [Mass/Vol] 337 mg/dL High 70-100 [facility] Comment on above: ADA recommended refe rence rangeRandom Glucose Reference Range is dependent on time and content of last meal. Glucose of more than 200 mg/dL in a nonstressed, ambulatory subject supports the diagnosis of Diabetes Mellitus. Result Comment: [place] Glucose Reference Range is dependent on time and content of last meal. Glucose of more than 200 mg/dL in a nonstressed, ambulatory subject supports the diagnosis of Diabetes Mellitus. ADA recommended reference range Performed By: #### T ACROLIMUS., CMP, CBC #### [facility] [address] Hematocrit [Volume Fraction] of Blood by Automated countOrdered By: Sharan Ayoub on 03-06-2024 Hematocrit (Bld) [Volume fraction] 40.0 % Normal 38.8-50.0 [facility] Comment on above: Performed By: #### T ACROLIMUS., CMP, CBC #### [facility] [address] [place] [address] [place] Hemoglobin [Mass/volume] in BloodOrdered By: Sharan Ayoub on 03-06-2024 Hemoglobin (Bld) [Mass/Vol] 13.5 g/dL Normal 13.0-17.0 [facility] Comment on above: Performed By: #### T ACROLIMUS., CMP, CBC #### [facility] [address] [place] [address] [place] Leukocytes [#/volume] correc roderick for nucleated erythrocytes in Blood by Automated counOrdered By: Sharan Ayoub on 03-06-2024 WBC corrected for nucl RBC Auto (Bld) [#/Vol] 9.6 10*3/uL 4.1-10.5 [facility] Leukocytes [#/volume] in Blo od by Automated countOrdered By: Sharan Ayoub on 03-06-2024 WBC (Bld) [#/Vol] 9.6 10*3/uL Normal 4.1-10.5 [facility] Comment on above: Performed By: #### T ACROLIMUS., CMP, CBC #### [facility] [address] Lymphocytes [#/volume] in Bl ood by Automated countOrdered By: Sharan Ayoub on 03-06-2024 Lymphocytes (Bld) [#/Vol] 3.6 10*3/uL Normal 1.00-4.8 [facility] Comment on above: Performed By: #### T ACROLIMUS., CMP, CBC #### [facility] [address] Lymphocytes/100 leukocytes i n Blood by Automated countOrdered By: Sharan Ayoub on 03-06-2024 Lymphocytes/100 WBC (Bld) 37.7 % Normal . [facility] Comment on above: Performed By: #### T ACROLIMUS., CMP, CBC #### [facility] [address] [place] [address] MCH [Entitic mass] by Automa roderick countOrdered By: Sharan Ayoub on 03-06-2024 MCH (RBC) [Entitic mass] 31.6 pg Normal 27.5-35.2 [facility] Comment on above: Performed By: #### T ACROLIMUS., CMP, CBC #### [facility] [address] [place] [address] MCHC Auto (RBC) [Mass/Vol]Or dered By: Sharan Ayoub on 03-06-2024 MCHC (RBC) [Mass/Vol] 33.8 g/dL 32.5-35.6 [facility] MCV [Entitic volume] by Auto mated countOrdered By: Sharan Ayoub on 03-06-2024 MCV (RBC) [Entitic vol] 93.5 fL Normal 83.5-101 [facility] Comment on above: Performed By: #### T ACROLIMUS., CMP, CBC #### [facility] [address] Neutrophils [#/volume] in Bl ood by Automated countOrdered By: Sharan Ayoub on 03-06-2024 Neutrophils (Bld) [#/Vol] 5.2 10*3/uL Normal 1.8-7.7 [facility] Comment on above: Performed By: #### T ACROLIMUS., CMP, CBC #### [facility] [address] [place] [address] No Panel InformationOrdered By: Sharan Ayoub on 03-06-2024 Estimated GFR (CKD-EPI) > 60.0 mL/Min [facility] Creatinine Clearance (Chem N/A [facility] Nucleated erythrocytes [Pres ence] in Blood by Automated countOrdered By: Sharan Ayoub on 03-06-2024 Nucleated RBC Auto Ql (Bld) 0.2 /100{WBC} 0-0.5 [facility] Platelet mean volume [Entiti c volume] in Blood by Automated countOrdered By: Sharan Ayoub on 03-06-2024 Platelet mean volume (Bld) [Entitic vol] 11.4 fL High 6.6-10.1 [facility] Comment on above: Performed By: #### T ACROLIMUS., CMP, CBC #### [facility] [address] [place] [address] Platelets [#/volume] in Bloo d by Automated countOrdered By: Sharan Ayoub on 03-06-2024 Platelets (Bld) [#/Vol] 150 10*3/uL Normal 150-450 [facility] Comment on above: Performed By: #### T ACROLIMUS., CMP, CBC #### [facility] [address] [place] [address] Potassium [Moles/volume] in Serum or PlasmaOrdered By: Sharan Ayoub on 03-06-2024 Potassium [Moles/Vol] 3.9 mmol/L Normal 3.5-5.1 [facility] Comment on above: Performed By: #### T ACROLIMUS., CMP, CBC #### [facility] [address] [place] [address] Protein [Mass/volume] in Ser um or PlasmaOrdered By: Sharan Ayoub on 03-06-2024 Protein [Mass/Vol] 6.1 g/dL Low 6.4-8.9 [facility] Comment on above: Performed By: #### T ACROLIMUS., CMP, CBC #### [address] Serum globulin measurement b y calculation (mass/volume)Ordered By: Sharan Ayoub on Globulin (S) [Mass/Vol] 3.0 g/dL Normal [facility] Comment on above: Performed By: #### T ACROLIMUS., CMP, CBC #### [facility] [address] [place] [address] Serum or plasma albumin/glob ulin mass ratioOrdered By: Sharan Ayoub on 03-06-2024 Albumin/Globulin [Mass ratio] 1.0 {ratio} [facility] Comment on above: Performed By: #### T ACROLIMUS., CMP, CBC #### [facility] [address] [place] [address] Serum or plasma anion gap de terminationOrdered By: Sharan Ayoub on 03-06-2024 Anion gap [Moles/Vol] 9.7 mmol/L Normal 6.0-15.0 [facility] Comment on above: Performed By: #### T ACROLIMUS., CMP, CBC #### [address] Sodium [Moles/volume] in Ser um or PlasmaOrdered By: Sharan Ayoub on 03-06-2024 Sodium [Moles/Vol] 138 mmol/L Normal 136-145 [facility] Comment on above: Performed By: #### T ACROLIMUS., CMP, CBC #### [facility] [address] [place] [address] Tacrolimuson 03-06-2024 Tacrolimus (Bld) [Mass/Vol] 5.9 ng/mL Normal <=15.0 [facility] Comment on above: Order Comment: NOTE: Result was obtained using a chemiluminescent microparticle immunoassay (CMIA) on the [employer] i system. Optimal therapeutic ranges for immunosuppressant drugs depend upon an individual patient's current clinical state, type of organ transplant, time post-transplant, co-administration of other immunosuppressants, and other clinical factors. The results of this test should be correlated with additional clinical and laboratory data before changes in treatment regimens are made. Performed By: #### 1 1253-2 #### NORMA Cherry ([id number]) [facility] ([facility]) [id number] [place] [address] Tacrolimus (Transplant) No C hgon 03-06-2024 Tacrolimus (Transplant) No Chg Sent to Ref Lab Normal [facility] Comment on above: Result Comment: PERF ORMED BY: [place] [address] PATHOLOGIST MANAGER WINTER MISAEL FOX M.D. Performed By: #### T ACROLIMUS., CMP, CBC #### [place] [address] [place] Tacrolimus [Mass/volume] in BloodOrdered By: Sharan Ayoub on 03-06-2024 Tacrolimus (Bld) [Mass/Vol] Sent to ref lab [facility] Urea nitrogen [Mass/volume] in Serum or PlasmaOrdered By: Sharan Ayoub on 03-06-2024 Urea nitrogen [Mass/Vol] 25 mg/dL Normal 04-25 [facility] Comment on above: Performed By: #### T ACROLIMUS., CMP, CBC #### [place] [address] [place] Alanine aminotransferase [En zymatic activity/volume] in Serum or PlasmaOrdered By: Sharan Ayoub on 02-27-2024 ALT [Catalytic activity/Vol] 119 U/L High [facility] Comment on above: Performed By: #### C MP, CBC, TACROLIMUS. #### [place] [address] [place] Albumin [Mass/volume] in Ser um or Plasma by Bromocresol green (BCG) dye binding methoOrdered By: Sharan Ayoub on 02-27-2024 Albumin BCG dye [Mass/Vol] 3.3 g/dL Low 3.5-5.7 [facility] Alkaline phosphatase [Enzyma tic activity/volume] in Serum or PlasmaOrdered By: Sharan Ayoub on 02-27-2024 ALP [Catalytic activity/Vol] 184 U/L High 34-104 [facility] Comment on above: Result Comment: PERF ORMED BY: [place] [address] PATHOLOGIST MANAGER WINTER MISAEL FOX M.D. Performed By: #### C MP, CBC, TACROLIMUS. #### [facility] [address] [place] [address] Aspartate aminotransferase [ Enzymatic activity/volume] in Serum or PlasmaOrdered By: Sharan Ayoub on 02-27-2024 AST [Catalytic activity/Vol] 77 U/L High 13-39 [facility] Comment on above: Performed By: #### C MP, CBC, TACROLIMUS. #### [facility] [address] [place] [address] Automated basophil %Ordered By: Sharan Ayoub on 02-27-2024 Basophils/100 WBC (Bld) 0.6 % Normal . [facility] Comment on above: Performed By: #### C MP, CBC, TACROLIMUS. #### [facility] [address] [place] [address] Automated basophil countOrde red By: Sharan Ayoub on 02-27-2024 Basophils (Bld) [#/Vol] 0.1 10*3/uL Normal 0.0-0.2 [facility] Comment on above: Result Comment: PERF ORMED BY: [place] [address] PATHOLOGIST MANAGER WINTER MISAEL FOX M.D. Performed By: #### C MP, CBC, TACROLIMUS. #### [facility] [address] [place] [address] Automated blood monocyte cou ntOrdered By: Sharan Ayoub on 02-27-2024 Monocytes (Bld) [#/Vol] 0.9 10*3/uL High 0.0-0.8 [facility] Comment on above: Performed By: #### C MP, CBC, TACROLIMUS. #### [facility] [address] [place] [address] Automated eosinophil %Ordere d By: Sharan Ayoub on 02-27-2024 Eosinophils/100 WBC (Bld) 0.5 % Normal . [facility] Comment on above: Performed By: #### C MP, CBC, TACROLIMUS. #### [address] Automated eosinophil countOr dered By: Sharan Ayoub on 02-27-2024 Eosinophils (Bld) [#/Vol] 0.0 10*3/uL Normal 0.0-0.45 [facility] Comment on above: Performed By: #### C MP, CBC, TACROLIMUS. #### [address] Automated monocyte %Ordered By: Sharan Ayoub on 02-27-2024 Monocytes/100 WBC (Bld) 10.0 % Normal . [facility] Comment on above: Performed By: #### C MP, CBC, TACROLIMUS. #### [address] Automated neutrophil %Ordere d By: Sharan Ayoub on 02-27-2024 Neutrophils/100 WBC (Bld) 48.1 % Normal . [facility] Comment on above: Performed By: #### C MP, CBC, TACROLIMUS. #### [address] Bilirubin.total [Mass/volume ] in Serum or PlasmaOrdered By: Sharan Ayoub on 02-27-2024 Bilirubin [Mass/Vol] 2.5 mg/dL High 0.3-1.0 [facility] Comment on above: Samples from [...] By: #### C MP, CBC, TACROLIMUS. #### [address] Calcium [Mass/volume] in Ser um or PlasmaOrdered By: Sharan Ayoub on 02-27-2024 Calcium [Mass/Vol] 9.2 mg/dL Normal 8.6-10.3 [facility] Comment on above: Performed By: #### C MP, CBC, TACROLIMUS. #### [address] Carbon dioxide, total [Moles /volume] in Serum or PlasmaOrdered By: Sharan Ayoub on 02-27-2024 CO2 [Moles/Vol] 30.5 mmol/L Normal 21.0-31.0 [facility] Comment on above: Performed By: #### C MP, CBC, TACROLIMUS. #### [address] Chloride [Moles/volume] in S kasi or PlasmaOrdered By: Sharan Ayoub on 02-27-2024 Chloride [Moles/Vol] 103 mmol/L Normal 98-107 [facility] Comment on above: Performed By: #### C MP, CBC, TACROLIMUS. #### [address] Complete Blood Count Auto Di ffon 02-27-2024 Mean Corpuscular HGB Conc 33.9 g/dL Normal 32.5-35.6 [facility] Comment on above: Performed By: #### C MP, CBC, TACROLIMUS. #### [address] NRBC% 0.4 /100{WBC} Normal 0-0.5 [facility] Comment on above: Performed By: #### C MP, CBC, TACROLIMUS. #### [address] Comprehensive Metabolic Pane sarah 02-27-2024 Albumin [Mass/Vol] 3.3 g/dL Low 3.5-5.7 [facility] Comment on above: Performed By: #### C MP, CBC, TACROLIMUS. #### [address] GFR/1.73 sq M.predicted MDRD (S/P/Bld) [Vol rate/Area] mL/min/{1.73_m2} Normal [facility] Comment on above: Performed By: #### C MP, CBC, TACROLIMUS. #### [address] Creatinine [Mass/volume] in Serum or PlasmaOrdered By: Sharan Ayoub on 02-27-2024 Creatinine [Mass/Vol] 0.95 mg/dL Normal 0.70-1.30 [facility] Comment on above: Performed By: #### C MP, CBC, TACROLIMUS. #### [address] Erythrocyte distribution wid th [Ratio] by Automated countOrdered By: Sharan Ayoub on 02-27-2024 Erythrocyte distribution width (RBC) [Ratio] 15.2 % High 12.0-14.8 [facility] Comment on above: Performed By: #### C MP, CBC, TACROLIMUS. #### [address] Erythrocytes [#/volume] in B lood by Automated countOrdered By: Sharan Ayoub on 02-27-2024 RBC (Bld) [#/Vol] 4.70 10*6/uL Normal 3.90-5.60 [facility] Comment on above: Performed By: #### C MP, CBC, TACROLIMUS. #### [address] Glucose [Mass/volume] in Ser um or PlasmaOrdered By: Sharan Ayoub on 02-27-2024 Glucose [Mass/Vol] 169 mg/dL High 70-100 [facility] Comment on above: ADA recommended refe rence rangeRandom Glucose Reference Range is dependent on time and content of last meal. Glucose of more than 200 mg/dL in a nonstressed, ambulatory subject supports the diagnosis of Diabetes Mellitus. Result Comment: [place] Glucose Reference Range is dependent on time and content of last meal. Glucose of more than 200 mg/dL in a nonstressed, ambulatory subject supports the diagnosis of Diabetes Mellitus. ADA recommended reference range Performed By: #### C MP, CBC, TACROLIMUS. #### [address] Hematocrit [Volume Fraction] of Blood by Automated countOrdered By: Sharan Ayoub on 02-27-2024 Hematocrit (Bld) [Volume fraction] 43.6 % Normal 38.8-50.0 [facility] Comment on above: Performed By: #### C MP, CBC, TACROLIMUS. #### [address] Hemoglobin [Mass/volume] in BloodOrdered By: Sharan Ayoub on 02-27-2024 Hemoglobin (Bld) [Mass/Vol] 14.8 g/dL Normal 13.0-17.0 [facility] Comment on above: Performed By: #### C MP, CBC, TACROLIMUS. #### [address] Leukocytes [#/volume] correc roderick for nucleated erythrocytes in Blood by Automated counOrdered By: Sharan Ayoub on 02-27-2024 WBC corrected for nucl RBC Auto (Bld) [#/Vol] 9.0 10*3/uL 4.1-10.5 [facility] Leukocytes [#/volume] in Blo od by Automated countOrdered By: Sharan Ayoub on 02-27-2024 WBC (Bld) [#/Vol] 9.0 10*3/uL Normal 4.1-10.5 [facility] Comment on above: Performed By: #### C MP, CBC, TACROLIMUS. #### [place] [address] [place] Lymphocytes [#/volume] in Bl ood by Automated countOrdered By: Sharan Ayoub on 02-27-2024 Lymphocytes (Bld) [#/Vol] 3.7 10*3/uL Normal 1.00-4.8 [facility] Comment on above: Performed By: #### C MP, CBC, TACROLIMUS. #### [address] Lymphocytes/100 leukocytes i n Blood by Automated countOrdered By: Sharan Ayoub on 02-27-2024 Lymphocytes/100 WBC (Bld) 40.8 % Normal . [facility] Comment on above: Performed By: #### C MP, CBC, TACROLIMUS. #### [address] MCH [Entitic mass] by Automa roderick countOrdered By: Sharan Ayoub on 02-27-2024 MCH (RBC) [Entitic mass] 31.4 pg Normal 27.5-35.2 [facility] Comment on above: Performed By: #### C MP, CBC, TACROLIMUS. #### [address] MCHC Auto (RBC) [Mass/Vol]Or dered By: Sharan Ayoub on 02-27-2024 MCHC (RBC) [Mass/Vol] 33.9 g/dL 32.5-35.6 [facility] MCV [Entitic volume] by Auto mated countOrdered By: Sharan Ayoub on 02-27-2024 MCV (RBC) [Entitic vol] 92.7 fL Normal 83.5-101 [facility] Comment on above: Performed By: #### C MP, CBC, TACROLIMUS. #### [address] Neutrophils [#/volume] in Bl ood by Automated countOrdered By: Sharan Ayoub on 02-27-2024 Neutrophils (Bld) [#/Vol] 4.3 10*3/uL Normal 1.8-7.7 [facility] Comment on above: Performed By: #### C MP, CBC, TACROLIMUS. #### [address] No Panel InformationOrdered By: Sharan Ayoub on 02-27-2024 Estimated GFR (CKD-EPI) > 60.0 mL/Min [facility] Creatinine Clearance (Chem N/A [facility] Nucleated erythrocytes [Pres ence] in Blood by Automated countOrdered By: Sharan Ayoub on 02-27-2024 Nucleated RBC Auto Ql (Bld) 0.4 /100{WBC} 0-0.5 [facility] Platelet mean volume [Entiti c volume] in Blood by Automated countOrdered By: Sharan Ayoub on 02-27-2024 Platelet mean volume (Bld) [Entitic vol] 10.4 fL High 6.6-10.1 [facility] Comment on above: Performed By: #### C MP, CBC, TACROLIMUS. #### [address] Platelets [#/volume] in Bloo d by Automated countOrdered By: Sharan Ayoub on 02-27-2024 Platelets (Bld) [#/Vol] 150 10*3/uL Normal 150-450 [facility] Comment on above: Performed By: #### C MP, CBC, TACROLIMUS. #### [address] Potassium [Moles/volume] in Serum or PlasmaOrdered By: Sharan Ayoub on 02-27-2024 Potassium [Moles/Vol] 3.9 mmol/L Normal 3.5-5.1 [facility] Comment on above: Performed By: #### C MP, CBC, TACROLIMUS. #### [address] Protein [Mass/volume] in Ser um or PlasmaOrdered By: Sharan Ayoub on 02-27-2024 Protein [Mass/Vol] 6.6 g/dL Normal 6.4-8.9 [facility] Comment on above: Performed By: #### C MP, CBC, TACROLIMUS. #### [address] Serum globulin measurement b y calculation (mass/volume)Ordered By: Sharan Ayoub on 02-27-2024 Globulin (S) [Mass/Vol] 3.3 g/dL [facility] Comment on above: Performed By: #### C MP, CBC, TACROLIMUS. #### [address] Serum or plasma albumin/glob ulin mass ratioOrdered By: Sharan Ayoub on 02-27-2024 Albumin/Globulin [Mass ratio] 1.0 {ratio} [facility] Comment on above: Performed By: #### C MP, CBC, TACROLIMUS. #### [address] Serum or plasma anion gap de terminationOrdered By: Sharan Ayoub on 02-27-2024 Anion gap [Moles/Vol] 8.4 mmol/L Normal 6.0-15.0 [facility] Comment on above: Performed By: #### C MP, CBC, TACROLIMUS. #### [address] Sodium [Moles/volume] in Ser um or PlasmaOrdered By: Sharan Ayoub on 02-27-2024 Sodium [Moles/Vol] 138 mmol/L Normal 136-145 [facility] Comment on above: Performed By: #### C MP, CBC, TACROLIMUS. #### [facility] [address] [place] [address] Tacrolimuson 02-27-2024 Tacrolimus (Bld) [Mass/Vol] 8.6 ng/mL Normal <=15.0 [facility] Comment on above: Order Comment: NOTE: Result was obtained using a chemiluminescent microparticle immunoassay (CMIA) on the [employer] i system. Optimal therapeutic ranges for immunosuppressant drugs depend upon an individual patient's current clinical state, type of organ transplant, time post-transplant, co-administration of other immunosuppressants, and other clinical factors. The results of this test should be correlated with additional clinical and laboratory data before changes in treatment regimens are made. Performed By: #### 1 1253-2 #### NORMA Cherry ([id number]) [facility] ([facility]) [address] [place] [address] Tacrolimus (Transplant) No C hgon 02-27-2024 Tacrolimus (Transplant) No Chg Sent to Ref Lab Normal [facility] Comment on above: Result Comment: PERF ORMED BY: [place] [address] PATHOLOGIST MANAGER WINTER MISAEL FOX M.D. Performed By: #### C MP, CBC, TACROLIMUS. #### [facility] [address] Tacrolimus [Mass/volume] in BloodOrdered By: Sharan Ayoub on 02-27-2024 Tacrolimus (Bld) [Mass/Vol] Sent to ref lab [facility] Urea nitrogen [Mass/volume] in Serum or PlasmaOrdered By: Sharan Ayoub on 02-27-2024 Urea nitrogen [Mass/Vol] 20 mg/dL Normal 04-25 [facility] Comment on above: Performed By: #### C MP, CBC, TACROLIMUS. #### [facility] [address] [place] [address] Alanine aminotransferase [En zymatic activity/volume] in Serum or PlasmaOrdered By: Sharan Ayoub on 02-21-2024 ALT [Catalytic activity/Vol] 118 U/L High 7-52 [facility] Comment on above: Performed By: #### T ACROLIMUS., CMP, CBC #### [facility] [address] [place] [address] [place] Albumin [Mass/volume] in Ser um or Plasma by Bromocresol green (BCG) dye binding methoOrdered By: Sharan Ayoub on 02-21-2024 Albumin BCG dye [Mass/Vol] 3.2 g/dL Low 3.5-5.7 [facility] Alkaline phosphatase [Enzyma tic activity/volume] in Serum or PlasmaOrdered By: Sharan Ayoub on 02-21-2024 ALP [Catalytic activity/Vol] 152 U/L High 34-104 [facility] Comment on above: Result Comment: PERF ORMED BY: [place] [address] PATHOLOGIST MANAGER WINTER MISAEL FOX M.D. Performed By: #### T ACROLIMUS., CMP, CBC #### [address] Aspartate aminotransferase [ Enzymatic activity/volume] in Serum or PlasmaOrdered By: Sharan Ayoub on 02-21-2024 AST [Catalytic activity/Vol] 68 U/L High 13-39 [facility] Comment on above: Performed By: #### T ACROLIMUS., CMP, CBC #### [address] Automated basophil %Ordered By: Sharan Ayoub on 02-21-2024 Basophils/100 WBC (Bld) 0.2 % Normal . [facility] Comment on above: Performed By: #### T ACROLIMUS., CMP, CBC #### [address] Automated basophil countOrde red By: Sharan Ayoub on 02-21-2024 Basophils (Bld) [#/Vol] 0.0 10*3/uL Normal 0.0-0.2 [facility] Comment on above: Result Comment: PERF ORMED BY: [place] [address] PATHOLOGIST MANAGER WINTER MISAEL FOX M.D. Performed By: #### T ACROLIMUS., CMP, CBC #### [address] Automated blood monocyte cou ntOrdered By: Sharan Ayoub on 02-21-2024 Monocytes (Bld) [#/Vol] 0.8 10*3/uL Normal 0.0-0.8 [facility] Comment on above: Performed By: #### T ACROLIMUS., CMP, CBC #### [address] Automated eosinophil %Ordere d By: Sharan Ayoub on 02-21-2024 Eosinophils/100 WBC (Bld) 0.6 % Normal . [facility] Comment on above: Performed By: #### T ACROLIMUS., CMP, CBC #### [address] Automated eosinophil countOr dered By: Sharan Ayoub on 02-21-2024 Eosinophils (Bld) [#/Vol] 0.1 10*3/uL Normal 0.0-0.45 [facility] Comment on above: Performed By: #### T ACROLIMUS., CMP, CBC #### [address] Automated monocyte %Ordered By: Sharan Ayoub on 02-21-2024 Monocytes/100 WBC (Bld) 7.8 % Normal . [facility] Comment on above: Performed By: #### T ACROLIMUS., CMP, CBC #### [address] Automated neutrophil %Ordere d By: Sharan Ayoub on 02-21-2024 Neutrophils/100 WBC (Bld) 66.0 % Normal . [facility] Comment on above: Performed By: #### T ACROLIMUS., CMP, CBC #### [address] Bilirubin.total [Mass/volume ] in Serum or PlasmaOrdered By: Sharan Ayoub on 02-21-2024 Bilirubin [Mass/Vol] 2.2 mg/dL High 0.3-1.0 [facility] Comment on above: Samples from [...] By: #### T ACROLIMUS., CMP, CBC #### [place] [address] [place] Calcium [Mass/volume] in Ser um or PlasmaOrdered By: Sharan Ayoub on 02-21-2024 Calcium [Mass/Vol] 8.9 mg/dL Normal 8.6-10.3 [facility] Comment on above: Performed By: #### T ACROLIMUS., CMP, CBC #### [facility] [address] Carbon dioxide, total [Moles /volume] in Serum or PlasmaOrdered By: Sharan Ayoub on 02-21-2024 CO2 [Moles/Vol] 29.9 mmol/L Normal 21.0-31.0 [facility] Comment on above: Performed By: #### T ACROLIMUS., CMP, CBC #### [address] Chloride [Moles/volume] in S kasi or PlasmaOrdered By: Sharan Ayoub on 02-21-2024 Chloride [Moles/Vol] 105 mmol/L Normal 98-107 [facility] Comment on above: Performed By: #### T ACROLIMUS., CMP, CBC #### [address] Complete Blood Count Auto Di ffon 02-21-2024 Mean Corpuscular HGB Conc 34.0 g/dL Normal 32.5-35.6 [facility] Comment on above: Performed By: #### T ACROLIMUS., CMP, CBC #### [address] NRBC% 0.2 /100{WBC} Normal 0-0.5 [facility] Comment on above: Performed By: #### T ACROLIMUS., CMP, CBC #### [facility] [address] [place] [address] Comprehensive Metabolic Pane sarah 02-21-2024 Albumin [Mass/Vol] 3.2 g/dL Low 3.5-5.7 [facility] Comment on above: Performed By: #### T ACROLIMUS., CMP, CBC #### [address] GFR/1.73 sq M.predicted MDRD (S/P/Bld) [Vol rate/Area] mL/min/{1.73_m2} Normal [facility] Comment on above: Performed By: #### T ACROLIMUS., CMP, CBC #### [facility] [address] Creatinine [Mass/volume] in Serum or PlasmaOrdered By: Sharan Ayoub on 02-21-2024 Creatinine [Mass/Vol] 0.95 mg/dL Normal 0.70-1.30 [facility] Comment on above: Performed By: #### T ACROLIMUS., CMP, CBC #### [facility] [address] Erythrocyte distribution wid th [Ratio] by Automated countOrdered By: Sharan Ayoub on 02-21-2024 Erythrocyte distribution width (RBC) [Ratio] 15.3 % High 12.0-14.8 [facility] Comment on above: Performed By: #### T ACROLIMUS., CMP, CBC #### [facility] [address] Erythrocytes [#/volume] in B lood by Automated countOrdered By: Sharan Ayoub on 02-21-2024 RBC (Bld) [#/Vol] 4.29 10*6/uL Normal 3.90-5.60 [facility] Comment on above: Performed By: #### T ACROLIMUS., CMP, CBC #### [address] Glucose [Mass/volume] in Ser um or PlasmaOrdered By: Sharan Ayoub on 02-21-2024 Glucose [Mass/Vol] 213 mg/dL High 70-100 [facility] Comment on above: ADA recommended refe rence rangeRandom Glucose Reference Range is dependent on time and content of last meal. Glucose of more than 200 mg/dL in a nonstressed, ambulatory subject supports the diagnosis of Diabetes Mellitus. Result Comment: [place] Glucose Reference Range is dependent on time and content of last meal. Glucose of more than 200 mg/dL in a nonstressed, ambulatory subject supports the diagnosis of Diabetes Mellitus. ADA recommended reference range Performed By: #### T ACROLIMUS., CMP, CBC #### [address] Hematocrit [Volume Fraction] of Blood by Automated countOrdered By: Sharan Ayoub on 02-21-2024 Hematocrit (Bld) [Volume fraction] 40.2 % Normal 38.8-50.0 [facility] Comment on above: Performed By: #### T ACROLIMUS., CMP, CBC #### [address] Hemoglobin [Mass/volume] in BloodOrdered By: Sharan Ayoub on 02-21-2024 Hemoglobin (Bld) [Mass/Vol] 13.7 g/dL Normal 13.0-17.0 [facility] Comment on above: Performed By: #### T ACROLIMUS., CMP, CBC #### [address] Leukocytes [#/volume] correc roderick for nucleated erythrocytes in Blood by Automated counOrdered By: Sharan Ayoub on 02-21-2024 WBC corrected for nucl RBC Auto (Bld) [#/Vol] 10.2 10*3/uL 4.1-10.5 [facility] Leukocytes [#/volume] in Blo od by Automated countOrdered By: Sharan Ayoub on 02-21-2024 WBC (Bld) [#/Vol] 10.2 10*3/uL Normal 4.1-10.5 [facility] Comment on above: Performed By: #### T ACROLIMUS., CMP, CBC #### [place] [address] [place] Lymphocytes [#/volume] in Bl ood by Automated countOrdered By: Sharan Ayoub on 02-21-2024 Lymphocytes (Bld) [#/Vol] 2.6 10*3/uL Normal 1.00-4.8 [facility] Comment on above: Performed By: #### T ACROLIMUS., CMP, CBC #### [place] [address] [place] Lymphocytes/100 leukocytes i n Blood by Automated countOrdered By: Sharan Ayoub on 02-21-2024 Lymphocytes/100 WBC (Bld) 25.4 % Normal . [facility] Comment on above: Performed By: #### T ACROLIMUS., CMP, CBC #### [facility] [address] [place] [address] MCH [Entitic mass] by Automa roderick countOrdered By: Sharan Ayoub on 02-21-2024 MCH (RBC) [Entitic mass] 31.9 pg Normal 27.5-35.2 [facility] Comment on above: Performed By: #### T ACROLIMUS., CMP, CBC #### [facility] [address] [place] [address] MCHC Auto (RBC) [Mass/Vol]Or dered By: Sharan Ayoub on 02-21-2024 MCHC (RBC) [Mass/Vol] 34.0 g/dL 32.5-35.6 [facility] MCV [Entitic volume] by Auto mated countOrdered By: Sharan Ayoub on 02-21-2024 MCV (RBC) [Entitic vol] 93.8 fL Normal 83.5-101 [facility] Comment on above: Performed By: #### T ACROLIMUS., CMP, CBC #### [facility] [address] [place] [address] Neutrophils [#/volume] in Bl ood by Automated countOrdered By: Sharan Ayoub on 02-21-2024 Neutrophils (Bld) [#/Vol] 6.8 10*3/uL Normal 1.8-7.7 [facility] Comment on above: Performed By: #### T ACROLIMUS., CMP, CBC #### [facility] [address] [place] [address] No Panel InformationOrdered By: Sharan Ayoub on 02-21-2024 Estimated GFR (CKD-EPI) > 60.0 mL/Min [facility] Creatinine Clearance (Chem N/A [facility] Nucleated erythrocytes [Pres ence] in Blood by Automated countOrdered By: Sharan Ayoub on 02-21-2024 Nucleated RBC Auto Ql (Bld) 0.2 /100{WBC} 0-0.5 [facility] Platelet mean volume [Entiti c volume] in Blood by Automated countOrdered By: Sharan Ayoub on 02-21-2024 Platelet mean volume (Bld) [Entitic vol] 10.6 fL High 6.6-10.1 [facility] Comment on above: Performed By: #### T ACROLIMUS., CMP, CBC #### [facility] [address] Platelets [#/volume] in Bloo d by Automated countOrdered By: Sharan Ayoub on 02-21-2024 Platelets (Bld) [#/Vol] 140 10*3/uL Low 150-450 [facility] Comment on above: Performed By: #### T ACROLIMUS., CMP, CBC #### [address] Potassium [Moles/volume] in Serum or PlasmaOrdered By: Sharan Ayoub on 02-21-2024 Potassium [Moles/Vol] 4.1 mmol/L Normal 3.5-5.1 [facility] Comment on above: Performed By: #### T ACROLIMUS., CMP, CBC #### [facility] [address] [place] [address] Protein [Mass/volume] in Ser um or PlasmaOrdered By: Sharan Ayoub on 02-21-2024 Protein [Mass/Vol] 6.1 g/dL Low 6.4-8.9 [facility] Comment on above: Performed By: #### T ACROLIMUS., CMP, CBC #### [facility] [address] [place] [address] Serum globulin measurement b y calculation (mass/volume)Ordered By: Sharan Ayoub on 02-21-2024 Globulin (S) [Mass/Vol] 2.9 g/dL Normal [facility] Comment on above: Performed By: #### T ACROLIMUS., CMP, CBC #### [facility] [address] [place] [address] Serum or plasma albumin/glob ulin mass ratioOrdered By: Sharan Ayoub on 02-21-2024 Albumin/Globulin [Mass ratio] 1.1 {ratio} Normal [facility] Comment on above: Performed By: #### T ACROLIMUS., CMP, CBC #### [facility] [address] [place] [address] Serum or plasma anion gap de terminationOrdered By: Sharan Ayoub on 02-21-2024 Anion gap [Moles/Vol] 8.2 mmol/L Normal 6.0-15.0 [facility] Comment on above: Performed By: #### T ACROLIMUS., CMP, CBC #### [facility] [address] [place] [address] Sodium [Moles/volume] in Ser um or PlasmaOrdered By: Sharan Ayoub on 02-21-2024 Sodium [Moles/Vol] 139 mmol/L Normal 136-145 [facility] Comment on above: Performed By: #### T ACROLIMUS., CMP, CBC #### [facility] [address] [place] [address] Tacrolimuson 02-21-2024 Tacrolimus (Bld) [Mass/Vol] 8.2 ng/mL Normal <=15.0 [facility] Comment on above: Order Comment: NOTE: Result was obtained using a chemiluminescent microparticle immunoassay (CMIA) on the [employer] i system. Optimal therapeutic ranges for immunosuppressant drugs depend upon an individual patient's current clinical state, type of organ transplant, time post-transplant, co-administration of other immunosuppressants, and other clinical factors. The results of this test should be correlated with additional clinical and laboratory data before changes in treatment regimens are made. Performed By: #### 1 1253-2 #### NORMA Cherry ([id number]) [facility] ([facility]) [id number] [place] [address] Tacrolimus (Transplant) No C hgon 02-21-2024 Tacrolimus (Transplant) No Chg Sent to Ref Lab Normal [facility] Comment on above: Result Comment: PERF ORMED BY: [place] [address] PATHOLOGIST MANAGER WINTER MISAEL FOX M.D. Performed By: #### T ACROLIMUS., CMP, CBC #### [facility] [address] [place] [address] [place] Tacrolimus [Mass/volume] in BloodOrdered By: Shraan Ayoub on 02-21-2024 Tacrolimus (Bld) [Mass/Vol] Sent to ref lab [facility] Urea nitrogen [Mass/volume] in Serum or PlasmaOrdered By: Sharan Ayoub on 02-21-2024 Urea nitrogen [Mass/Vol] 24 mg/dL Normal 7-25 [facility] Comment on above: Performed By: #### T ACROLIMUS., CMP, CBC #### [facility] [address] [place] [address] [place] Alanine aminotransferase [En zymatic activity/volume] in Serum or PlasmaOrdered By: Sharan Ayoub on 02-15-2024 ALT [Catalytic activity/Vol] 143 U/L High 7-52 [facility] Comment on above: Performed By: #### C MP, CBC, TACROLIMUS. #### [facility] [address] [place] [address] [place] Albumin [Mass/volume] in Ser um or Plasma by Bromocresol green (BCG) dye binding methoOrdered By: Sharan Ayoub on 02-15-2024 Albumin BCG dye [Mass/Vol] 3.4 g/dL Low 3.5-5.7 [facility] Alkaline phosphatase [Enzyma tic activity/volume] in Serum or PlasmaOrdered By: Sharan Ayoub on 02-15-2024 ALP [Catalytic activity/Vol] 153 U/L High 34-104 [facility] Comment on above: Result Comment: PERF ORMED BY: [place] [address] PATHOLOGIST MANAGER WINTER MISAEL FOX M.D. Performed By: #### C MP, CBC, TACROLIMUS. #### [facility] [address] [place] [address] [place] Aspartate aminotransferase [ Enzymatic activity/volume] in Serum or PlasmaOrdered By: Sharan Ayoub on 02-15-2024 AST [Catalytic activity/Vol] 80 U/L High 13-39 [facility] Comment on above: Performed By: #### C MP, CBC, TACROLIMUS. #### [address] Automated basophil %Ordered By: Sharan Ayoub on 02-15-2024 Basophils/100 WBC (Bld) 0.5 % Normal . [facility] Comment on above: Performed By: #### C MP, CBC, TACROLIMUS. #### [address] Automated basophil countOrde red By: Sharan Ayoub on 02-15-2024 Basophils (Bld) [#/Vol] 0.0 10*3/uL Normal 0.0-0.2 [facility] Comment on above: Result Comment: PERF ORMED BY: [place] [address] PATHOLOGIST MANAGER WINTER MISAEL FOX M.D. Performed By: #### C MP, CBC, TACROLIMUS. #### [address] Automated blood monocyte cou ntOrdered By: Sharan Ayoub on 02-15-2024 Monocytes (Bld) [#/Vol] 0.6 10*3/uL Normal 0.0-0.8 [facility] Comment on above: Performed By: #### C MP, CBC, TACROLIMUS. #### [address] Automated eosinophil %Ordere d By: Sharan Ayoub on 02-15-2024 Eosinophils/100 WBC (Bld) 0.6 % Normal . [facility] Comment on above: Performed By: #### C MP, CBC, TACROLIMUS. #### [address] Automated eosinophil countOr dered By: Sharan Ayoub on 02-15-2024 Eosinophils (Bld) [#/Vol] 0.0 10*3/uL Normal 0.0-0.45 [facility] Comment on above: Performed By: #### C MP, CBC, TACROLIMUS. #### [address] [place] [address] [place] Automated monocyte %Ordered By: Sharan Ayoub on 02-15-2024 Monocytes/100 WBC (Bld) 7.5 % Normal . [facility] Comment on above: Performed By: #### C MP, CBC, TACROLIMUS. #### [address] Automated neutrophil %Ordere d By: Sharan Ayoub on 02-15-2024 Neutrophils/100 WBC (Bld) 60.7 % Normal . [facility] Comment on above: Performed By: #### C MP, CBC, TACROLIMUS. #### [address] Bilirubin.total [Mass/volume ] in Serum or PlasmaOrdered By: Sharan Ayoub on 02-15-2024 Bilirubin [Mass/Vol] 2.4 mg/dL High 0.3-1.0 [facility] Comment on above: Samples from [...] By: #### C MP, CBC, TACROLIMUS. #### [address] Calcium [Mass/volume] in Ser um or PlasmaOrdered By: Sharan Ayoub on 02-15-2024 Calcium [Mass/Vol] 9.0 mg/dL Normal 8.6-10.3 [facility] Comment on above: Performed By: #### C MP, CBC, TACROLIMUS. #### [address] Carbon dioxide, total [Moles /volume] in Serum or PlasmaOrdered By: Sharan Ayoub on 05-16-2024 CO2 [Moles/Vol] 30.1 mmol/L Normal 21.0-31.0 [facility] Comment on above: Performed By: #### C MP, CBC, TACROLIMUS. #### [address] Chloride [Moles/volume] in S kasi or PlasmaOrdered By: Sharan Ayoub on 02-15-2024 Chloride [Moles/Vol] 104 mmol/L Normal 98-107 [facility] Comment on above: Performed By: #### C MP, CBC, TACROLIMUS. #### [address] Complete Blood Count Auto Di ffon 02-15-2024 Mean Corpuscular HGB Conc 33.6 g/dL Normal 32.5-35.6 [facility] Comment on above: Performed By: #### C MP, CBC, TACROLIMUS. #### [address] NRBC% 0.3 /100{WBC} Normal 0-0.5 [facility] Comment on above: Performed By: #### C MP, CBC, TACROLIMUS. #### [address] Comprehensive Metabolic Pane sarah 02-15-2024 Albumin [Mass/Vol] 3.4 g/dL Low 3.5-5.7 [facility] Comment on above: Performed By: #### C MP, CBC, TACROLIMUS. #### [address] GFR/1.73 sq M.predicted MDRD (S/P/Bld) [Vol rate/Area] mL/min/{1.73_m2} Normal [facility] Comment on above: Performed By: #### C MP, CBC, TACROLIMUS. #### [address] Creatinine [Mass/volume] in Serum or PlasmaOrdered By: Sharan Ayoub on 02-15-2024 Creatinine [Mass/Vol] 1.00 mg/dL Normal 0.70-1.30 [facility] Comment on above: Performed By: #### C MP, CBC, TACROLIMUS. #### [facility] [address] Erythrocyte distribution wid th [Ratio] by Automated countOrdered By: Sharan Ayoub on 02-15-2024 Erythrocyte distribution width (RBC) [Ratio] 15.3 % High 12.0-14.8 [facility] Comment on above: Performed By: #### C MP, CBC, TACROLIMUS. #### [facility] [address] Erythrocytes [#/volume] in B lood by Automated countOrdered By: Sharan Ayoub on 02-15-2024 RBC (Bld) [#/Vol] 4.52 10*6/uL Normal 3.90-5.60 [facility] Comment on above: Performed By: #### C MP, CBC, TACROLIMUS. #### [address] Glucose [Mass/volume] in Ser um or PlasmaOrdered By: Sharan Ayoub on 02-15-2024 Glucose [Mass/Vol] 238 mg/dL High 70-100 [facility] Comment on above: ADA recommended refe rence rangeRandom Glucose Reference Range is dependent on time and content of last meal. Glucose of more than 200 mg/dL in a nonstressed, ambulatory subject supports the diagnosis of Diabetes Mellitus. Result Comment: [place] Glucose Reference Range is dependent on time and content of last meal. Glucose of more than 200 mg/dL in a nonstressed, ambulatory subject supports the diagnosis of Diabetes Mellitus. ADA recommended reference range Performed By: #### C MP, CBC, TACROLIMUS. #### [facility] [address] Hematocrit [Volume Fraction] of Blood by Automated countOrdered By: Sharan Ayoub on 02-15-2024 Hematocrit (Bld) [Volume fraction] 42.7 % Normal 38.8-50.0 [facility] Comment on above: Performed By: #### C MP, CBC, TACROLIMUS. #### [facility] [address] Hemoglobin [Mass/volume] in BloodOrdered By: Sharan Ayoub on 02-15-2024 Hemoglobin (Bld) [Mass/Vol] 14.3 g/dL Normal 13.0-17.0 [facility] Comment on above: Performed By: #### C MP, CBC, TACROLIMUS. #### [address] Leukocytes [#/volume] correc roderick for nucleated erythrocytes in Blood by Automated counOrdered By: Sharan Ayoub on 02-15-2024 WBC corrected for nucl RBC Auto (Bld) [#/Vol] 7.4 10*3/uL 4.1-10.5 [facility] Leukocytes [#/volume] in Blo od by Automated countOrdered By: Sharan Ayoub on 02-15-2024 WBC (Bld) [#/Vol] 7.4 10*3/uL Normal 4.1-10.5 [facility] Comment on above: Performed By: #### C MP, CBC, TACROLIMUS. #### [address] Lymphocytes [#/volume] in Bl ood by Automated countOrdered By: Sharan Ayoub on 02-15-2024 Lymphocytes (Bld) [#/Vol] 2.3 10*3/uL Normal 1.00-4.8 [facility] Comment on above: Performed By: #### C MP, CBC, TACROLIMUS. #### [place] [address] [place] Lymphocytes/100 leukocytes i n Blood by Automated countOrdered By: Sharan Ayoub on 02-15-2024 Lymphocytes/100 WBC (Bld) 30.7 % Normal . [facility] Comment on above: Performed By: #### C MP, CBC, TACROLIMUS. #### [address] MCH [Entitic mass] by Automa roderick countOrdered By: Sharan Ayoub on 02-15-2024 MCH (RBC) [Entitic mass] 31.7 pg Normal 27.5-35.2 [facility] Comment on above: Performed By: #### C MP, CBC, TACROLIMUS. #### [facility] [address] MCHC Auto (RBC) [Mass/Vol]Or dered By: Sharan Ayoub on 02-15-2024 MCHC (RBC) [Mass/Vol] 33.6 g/dL 32.5-35.6 [facility] MCV [Entitic volume] by Auto mated countOrdered By: Sharan Ayoub on 02-15-2024 MCV (RBC) [Entitic vol] 94.5 fL Normal 83.5-101 [facility] Comment on above: Performed By: #### C MP, CBC, TACROLIMUS. #### [facility] [address] Neutrophils [#/volume] in Bl ood by Automated countOrdered By: Sharan Ayoub on 02-15-2024 Neutrophils (Bld) [#/Vol] 4.5 10*3/uL Normal 1.8-7.7 [facility] Comment on above: Performed By: #### C MP, CBC, TACROLIMUS. #### [facility] [address] [place] [address] No Panel InformationOrdered By: Sharan Ayoub on 02-15-2024 Estimated GFR (CKD-EPI) > 60.0 mL/Min [facility] Creatinine Clearance (Chem N/A [facility] Nucleated erythrocytes [Pres ence] in Blood by Automated countOrdered By: Sharan Ayoub on 02-15-2024 Nucleated RBC Auto Ql (Bld) 0.3 /100{WBC} 0-0.5 [facility] Platelet mean volume [Entiti c volume] in Blood by Automated countOrdered By: Sahran Ayoub on 02-15-2024 Platelet mean volume (Bld) [Entitic vol] 10.6 fL High 6.6-10.1 [facility] Comment on above: Performed By: #### C MP, CBC, TACROLIMUS. #### [facility] [address] Platelets [#/volume] in Bloo d by Automated countOrdered By: Sharan Ayoub on 02-15-2024 Platelets (Bld) [#/Vol] 134 10*3/uL Low 150-450 [facility] Comment on above: Performed By: #### C MP, CBC, TACROLIMUS. #### [facility] [address] Potassium [Moles/volume] in Serum or PlasmaOrdered By: Sharan Ayoub on 02-15-2024 Potassium [Moles/Vol] 3.8 mmol/L Normal 3.5-5.1 [facility] Comment on above: Performed By: #### C MP, CBC, TACROLIMUS. #### [address] Protein [Mass/volume] in Ser um or PlasmaOrdered By: Sharan Ayoub on 02-15-2024 Protein [Mass/Vol] 6.5 g/dL Normal 6.4-8.9 [facility] Comment on above: Performed By: #### C MP, CBC, TACROLIMUS. #### [address] Serum globulin measurement b y calculation (mass/volume)Ordered By: Sharan Ayoub on 02-15-2024 Globulin (S) [Mass/Vol] 3.1 g/dL [facility] Comment on above: Performed By: #### C MP, CBC, TACROLIMUS. #### [facility] [address] [place] [address] Serum or plasma albumin/glob ulin mass ratioOrdered By: Sharan Ayoub on 02-15-2024 Albumin/Globulin [Mass ratio] 1.1 {ratio} [facility] Comment on above: Performed By: #### C MP, CBC, TACROLIMUS. #### [facility] [address] [place] [address] Serum or plasma anion gap de terminationOrdered By: Sharan Ayoub on 02-15-2024 Anion gap [Moles/Vol] 7.7 mmol/L Normal 6.0-15.0 [facility] Comment on above: Performed By: #### C MP, CBC, TACROLIMUS. #### [facility] [address] Sodium [Moles/volume] in Ser um or PlasmaOrdered By: Sharan Ayoub on 02-15-2024 Sodium [Moles/Vol] 138 mmol/L Normal 136-145 [facility] Comment on above: Performed By: #### C MP, CBC, TACROLIMUS. #### [facility] [address] [place] [address] Tacrolimuson 02-15-2024 Tacrolimus (Bld) [Mass/Vol] 7.2 ng/mL Normal <=15.0 [facility] Comment on above: Order Comment: NOTE: Result was obtained using a chemiluminescent microparticle immunoassay (CMIA) on the [employer] i system. Optimal therapeutic ranges for immunosuppressant drugs depend upon an individual patient's current clinical state, type of organ transplant, time post-transplant, co-administration of other immunosuppressants, and other clinical factors. The results of this test should be correlated with additional clinical and laboratory data before changes in treatment regimens are made. Performed By: #### 1 1253-2 #### NORMA Cherry ([id number]) [facility] ([facility]) [id number] [place] [address] Tacrolimus (Transplant) No C hgon 02-15-2024 Tacrolimus (Transplant) No Chg Sent to Ref Lab Normal [facility] Comment on above: Result Comment: PERF ORMED BY: [place] [address] PATHOLOGIST MANAGER WINTER MISAEL FOX M.D. Performed By: #### C MP, CBC, TACROLIMUS. #### [address] Tacrolimus [Mass/volume] in BloodOrdered By: Sharan Ayoub on 02-15-2024 Tacrolimus (Bld) [Mass/Vol] Sent to ref lab [facility] Urea nitrogen [Mass/volume] in Serum or PlasmaOrdered By: Sharan Ayoub on 02-15-2024 Urea nitrogen [Mass/Vol] 24 mg/dL Normal 7-25 [facility] Comment on above: Performed By: #### C MP, CBC, TACROLIMUS. #### [facility] [address] Alanine aminotransferase [En zymatic activity/volume] in Serum or PlasmaOrdered By: Sharan Ayoub on 02-06-2024 ALT [Catalytic activity/Vol] 141 U/L High 7-52 [facility] Comment on above: Performed By: #### C MP, CBC, TACROLIMUS. #### [place] [address] [place] Albumin [Mass/volume] in Ser um or Plasma by Bromocresol green (BCG) dye binding methoOrdered By: Sharan Ayoub on 02-06-2024 Albumin BCG dye [Mass/Vol] 3.1 g/dL Low 3.5-5.7 [facility] Alkaline phosphatase [Enzyma tic activity/volume] in Serum or PlasmaOrdered By: Sharan Ayoub on 02-06-2024 ALP [Catalytic activity/Vol] 179 U/L High 34-104 [facility] Comment on above: Result Comment: PERF ORMED BY: [place] [address] PATHOLOGIST MANAGER WINTER MISAEL FOX M.D. Performed By: #### C MP, CBC, TACROLIMUS. #### [address] Aspartate aminotransferase [ Enzymatic activity/volume] in Serum or PlasmaOrdered By: Sharan Ayoub on 02-06-2024 AST [Catalytic activity/Vol] 73 U/L High 13-39 [facility] Comment on above: Performed By: #### C MP, CBC, TACROLIMUS. #### [address] Automated basophil %Ordered By: Sharan Ayoub on 02-06-2024 Basophils/100 WBC (Bld) 0.2 % Normal . [facility] Comment on above: Performed By: #### T ACROLIMUS., CMP, CBC #### [address] Automated basophil countOrde red By: Sharan Ayoub on 02-06-2024 Basophils (Bld) [#/Vol] 0.0 10*3/uL Normal 0.0-0.2 [facility] Comment on above: Result Comment: PERF ORMED BY: [place] [address] PATHOLOGIST MANAGER WINTER MISAEL FOX M.D. Performed By: #### T ACROLIMUS., CMP, CBC #### [address] Automated blood monocyte cou ntOrdered By: Sharan Ayoub on 02-06-2024 Monocytes (Bld) [#/Vol] 0.5 10*3/uL Normal 0.0-0.8 [facility] Comment on above: Performed By: #### T ACROLIMUS., CMP, CBC #### [address] Automated eosinophil %Ordere d By: Sharan Ayoub on 02-06-2024 Eosinophils/100 WBC (Bld) 0.4 % Normal . [facility] Comment on above: Performed By: #### T ACROLIMUS., CMP, CBC #### [address] Automated eosinophil countOr dered By: Sharan Ayoub on 02-06-2024 Eosinophils (Bld) [#/Vol] 0.0 10*3/uL Normal 0.0-0.45 [facility] Comment on above: Performed By: #### T ACROLIMUS., CMP, CBC #### [address] Automated monocyte %Ordered By: Sharan Ayoub on 02-06-2024 Monocytes/100 WBC (Bld) 5.1 % Normal . [facility] Comment on above: Performed By: #### T ACROLIMUS., CMP, CBC #### [address] Automated neutrophil %Ordere d By: Sharan Ayoub on 02-06-2024 Neutrophils/100 WBC (Bld) 82.0 % Normal . [facility] Comment on above: Performed By: #### T ACROLIMUS., CMP, CBC #### [facility] [address] Bilirubin.total [Mass/volume ] in Serum or PlasmaOrdered By: Sharan Ayoub on 02-06-2024 Bilirubin [Mass/Vol] 2.2 mg/dL High 0.3-1.0 [facility] Comment on above: Samples from [...] By: #### C MP, CBC, TACROLIMUS. #### [facility] [address] [place] [address] [place] Calcium [Mass/volume] in Ser um or PlasmaOrdered By: Sharan Ayoub on 02-06-2024 Calcium [Mass/Vol] 9.0 mg/dL Normal 8.6-10.3 [facility] Comment on above: Performed By: #### C MP, CBC, TACROLIMUS. #### [facility] [address] [place] [address] [place] Carbon dioxide, total [Moles /volume] in Serum or PlasmaOrdered By: Sharan Ayoub on 02-06-2024 CO2 [Moles/Vol] 27.7 mmol/L Normal 21.0-31.0 [facility] Comment on above: Performed By: #### C MP, CBC, TACROLIMUS. #### [facility] [address] [place] [id number] [place] Chloride [Moles/volume] in S kasi or PlasmaOrdered By: Sharan Ayoub on 02-06-2024 Chloride [Moles/Vol] 106 mmol/L Normal 98-107 [facility] Comment on above: Performed By: #### C MP, CBC, TACROLIMUS. #### [address] Complete Blood Count Auto Di ffon 02-06-2024 Mean Corpuscular HGB Conc 33.4 g/dL Normal 32.5-35.6 [facility] Comment on above: Performed By: #### T ACROLIMUS., CMP, CBC #### [address] NRBC% 0.1 /100{WBC} Normal 0-0.5 [facility] Comment on above: Performed By: #### T ACROLIMUS., CMP, CBC #### [address] Comprehensive Metabolic Pane sarah 02-06-2024 Albumin [Mass/Vol] 3.1 g/dL Low 3.5-5.7 [facility] Comment on above: Performed By: #### C MP, CBC, TACROLIMUS. #### [address] GFR/1.73 sq M.predicted MDRD (S/P/Bld) [Vol rate/Area] mL/min/{1.73_m2} Normal [facility] Comment on above: Performed By: #### C MP, CBC, TACROLIMUS. #### [address] Creatinine [Mass/volume] in Serum or PlasmaOrdered By: Sharan Ayoub on 02-06-2024 Creatinine [Mass/Vol] 1.03 mg/dL Normal 0.70-1.30 [facility] Comment on above: Performed By: #### C MP, CBC, TACROLIMUS. #### [address] Erythrocyte distribution wid th [Ratio] by Automated countOrdered By: Sharan Ayoub on 02-06-2024 Erythrocyte distribution width (RBC) [Ratio] 15.4 % High 12.0-14.8 [facility] Comment on above: Performed By: #### T ACROLIMUS., CMP, CBC #### [address] Erythrocytes [#/volume] in B lood by Automated countOrdered By: Sharan Ayoub on 02-06-2024 RBC (Bld) [#/Vol] 4.38 10*6/uL Normal 3.90-5.60 [facility] Comment on above: Performed By: #### T ACROLIMUS., CMP, CBC #### [facility] [address] [place] [id number] [place] Glucose [Mass/volume] in Ser um or PlasmaOrdered By: Sharan Ayoub on 02-06-2024 Glucose [Mass/Vol] 178 mg/dL High 70-100 [facility] Comment on above: ADA recommended refe rence rangeRandom Glucose Reference Range is dependent on time and content of last meal. Glucose of more than 200 mg/dL in a nonstressed, ambulatory subject supports the diagnosis of Diabetes Mellitus. Result Comment: [place] Glucose Reference Range is dependent on time and content of last meal. Glucose of more than 200 mg/dL in a nonstressed, ambulatory subject supports the diagnosis of Diabetes Mellitus. ADA recommended reference range Performed By: #### C MP, CBC, TACROLIMUS. #### [facility] [address] [place] [address] [place] Hematocrit [Volume Fraction] of Blood by Automated countOrdered By: Sharan Ayoub on 02-06-2024 Hematocrit (Bld) [Volume fraction] 41.3 % Normal 38.8-50.0 [facility] Comment on above: Performed By: #### T ACROLIMUS., CMP, CBC #### [facility] [address] [place] [address] [place] Hemoglobin [Mass/volume] in BloodOrdered By: Sharan Ayoub on 02-06-2024 Hemoglobin (Bld) [Mass/Vol] 13.8 g/dL Normal 13.0-17.0 [facility] Comment on above: Performed By: #### T ACROLIMUS., CMP, CBC #### [facility] [address] [place] [id number] [place] Leukocytes [#/volume] correc roderick for nucleated erythrocytes in Blood by Automated counOrdered By: Sharan Ayoub on 02-06-2024 WBC corrected for nucl RBC Auto (Bld) [#/Vol] 10.1 10*3/uL 4.1-10.5 [facility] Leukocytes [#/volume] in Blo od by Automated countOrdered By: Sharan Ayoub on 02-06-2024 WBC (Bld) [#/Vol] 10.1 10*3/uL Normal 4.1-10.5 [facility] Comment on above: Performed By: #### T ACROLIMUS., CMP, CBC #### [facility] [address] [place] [address] [place] Lymphocytes [#/volume] in Bl ood by Automated countOrdered By: Sharan Ayoub on 02-06-2024 Lymphocytes (Bld) [#/Vol] 1.2 10*3/uL Normal 1.00-4.8 [facility] Comment on above: Performed By: #### T ACROLIMUS., CMP, CBC #### [facility] [address] [place] [address] [place] Lymphocytes/100 leukocytes i n Blood by Automated countOrdered By: Sharan Ayoub on 02-06-2024 Lymphocytes/100 WBC (Bld) 12.3 % Normal . [facility] Comment on above: Performed By: #### T ACROLIMUS., CMP, CBC #### [facility] [address] [place] [address] [place] MCH [Entitic mass] by Automa roderick countOrdered By: Sharan Ayoub on 02-06-2024 MCH (RBC) [Entitic mass] 31.5 pg Normal 27.5-35.2 [facility] Comment on above: Performed By: #### T ACROLIMUS., CMP, CBC #### [facility] [address] [place] [address] [place] MCHC Auto (RBC) [Mass/Vol]Or dered By: Sharan Ayoub on 02-06-2024 MCHC (RBC) [Mass/Vol] 33.4 g/dL 32.5-35.6 [facility] MCV [Entitic volume] by Auto mated countOrdered By: Sharan Ayoub on 02-06-2024 MCV (RBC) [Entitic vol] 94.3 fL Normal 83.5-101 [facility] Comment on above: Performed By: #### T ACROLIMUS., CMP, CBC #### [facility] [address] Neutrophils [#/volume] in Bl ood by Automated countOrdered By: Sharan Ayoub on 02-06-2024 Neutrophils (Bld) [#/Vol] 8.3 10*3/uL High 1.8-7.7 [facility] Comment on above: Performed By: #### T ACROLIMUS., CMP, CBC #### [facility] [address] [place] [address] No Panel InformationOrdered By: Sharan Ayoub on 02-06-2024 Estimated GFR (CKD-EPI) > 60.0 mL/Min [facility] Creatinine Clearance (Chem N/A [facility] Nucleated erythrocytes [Pres ence] in Blood by Automated countOrdered By: Sharan Ayoub on 02-06-2024 Nucleated RBC Auto Ql (Bld) 0.1 /100{WBC} 0-0.5 [facility] Platelet mean volume [Entiti c volume] in Blood by Automated countOrdered By: Sharan Ayoub on 02-06-2024 Platelet mean volume (Bld) [Entitic vol] 10.4 fL High 6.6-10.1 [facility] Comment on above: Performed By: #### T ACROLIMUS., CMP, CBC #### [facility] [address] Platelets [#/volume] in Bloo d by Automated countOrdered By: Sharan Ayoub on 02-06-2024 Platelets (Bld) [#/Vol] 120 10*3/uL Low 150-450 [facility] Comment on above: Performed By: #### T ACROLIMUS., CMP, CBC #### [facility] [address] [place] [address] Potassium [Moles/volume] in Serum or PlasmaOrdered By: Sharan Aoyub on 02-06-2024 Potassium [Moles/Vol] 3.6 mmol/L Normal 3.5-5.1 [facility] Comment on above: Performed By: #### C MP, CBC, TACROLIMUS. #### [facility] [address] [place] [address] Protein [Mass/volume] in Ser um or PlasmaOrdered By: Sharan Ayoub on 02-06-2024 Protein [Mass/Vol] 6.2 g/dL Low 6.4-8.9 [facility] Comment on above: Performed By: #### C MP, CBC, TACROLIMUS. #### [address] Serum globulin measurement b y calculation (mass/volume)Ordered By: Sharan Ayoub on 02-06-2024 Globulin (S) [Mass/Vol] 3.1 g/dL [facility] Comment on above: Performed By: #### C MP, CBC, TACROLIMUS. #### [address] Serum or plasma albumin/glob ulin mass ratioOrdered By: Sharan yAoub on 02-06-2024 Albumin/Globulin [Mass ratio] 1.0 {ratio} [facility] Comment on above: Performed By: #### C MP, CBC, TACROLIMUS. #### [address] Serum or plasma anion gap de terminationOrdered By: Sharan Ayoub on 02-06-2024 Anion gap [Moles/Vol] 7.9 mmol/L Normal 6.0-15.0 [facility] Comment on above: Performed By: #### C MP, CBC, TACROLIMUS. #### [address] Sodium [Moles/volume] in Ser um or PlasmaOrdered By: Sharan Ayoub on 02-06-2024 Sodium [Moles/Vol] 138 mmol/L Normal 136-145 [facility] Comment on above: Performed By: #### C MP, CBC, TACROLIMUS. #### [facility] [address] [place] [address] Tacrolimuson 02-06-2024 Tacrolimus (Bld) [Mass/Vol] 7.5 ng/mL Normal <=15.0 [facility] Comment on above: Order Comment: NOTE: Result was obtained using a chemiluminescent microparticle immunoassay (CMIA) on the [employer] i system. Optimal therapeutic ranges for immunosuppressant drugs depend upon an individual patient's current clinical state, type of organ transplant, time post-transplant, co-administration of other immunosuppressants, and other clinical factors. The results of this test should be correlated with additional clinical and laboratory data before changes in treatment regimens are made. Performed By: #### 1 1253-2 #### NORMA Cherry ([id number]) [facility] ([facility]) [id number] [place] [address] Tacrolimus (Transplant) No C hgon 02-06-2024 Tacrolimus (Transplant) No Chg Sent to Ref Lab Normal [facility] Comment on above: Result Comment: PERF ORMED BY: [place] [address] PATHOLOGIST MANAGER WINTER MISAEL FOX M.D. Performed By: #### C MP, CBC, TACROLIMUS. #### [facility] [address] [place] [address] Tacrolimus [Mass/volume] in BloodOrdered By: Sharan Ayoub on 02-06-2024 Tacrolimus (Bld) [Mass/Vol] Sent to ref lab [facility] Urea nitrogen [Mass/volume] in Serum or PlasmaOrdered By: Sharan Ayoub on 02-06-2024 Urea nitrogen [Mass/Vol] 27 mg/dL [facility] 04-25 [facility] Comment on above: Performed By: #### C MP, CBC, TACROLIMUS. #### [facility] [address] [place] [address] [place] Alanine aminotransferase [En zymatic activity/volume] in Serum or PlasmaOrdered By: Sharan Ayoub on 01-30-2024 ALT [Catalytic activity/Vol] 218 U/L [facility] Comment on above: Performed By: #### C MP, CBC, TACROLIMUS. #### [facility] [address] [place] [address] [place] Albumin [Mass/volume] in Ser um or Plasma by Bromocresol green (BCG) dye binding methoOrdered By: Sharan Ayoub on 01-30-2024 Albumin BCG dye [Mass/Vol] 3.5 g/dL 3.5-5.7 [facility] Alkaline phosphatase [Enzyma tic activity/volume] in Serum or PlasmaOrdered By: Sharan Ayoub on 01-30-2024 ALP [Catalytic activity/Vol] 233 U/L High 34-104 [facility] Comment on above: Result Comment: PERF ORMED BY: [place] [address] PATHOLOGIST MANAGER WINTER MISAEL FOX M.D. Performed By: #### C MP, CBC, TACROLIMUS. #### [facility] [address] [place] [address] Aspartate aminotransferase [ Enzymatic activity/volume] in Serum or PlasmaOrdered By: Sharan Ayoub on 01-30-2024 AST [Catalytic activity/Vol] 127 U/L High 13-39 [facility] Comment on above: Performed By: #### C MP, CBC, TACROLIMUS. #### [facility] [address] [place] [address] Automated basophil %Ordered By: Sharan Ayoub on 01-30-2024 Basophils/100 WBC (Bld) 0.2 % Normal . [facility] Comment on above: Performed By: #### C MP, CBC, TACROLIMUS. #### [facility] [address] [place] [address] Automated basophil countOrde red By: Sharan Ayoub on 01-30-2024 Basophils (Bld) [#/Vol] 0.0 10*3/uL Normal 0.0-0.2 [facility] Comment on above: Result Comment: PERF ORMED BY: [place] [address] PATHOLOGIST MANAGER WINTER MISAEL FOX M.D. Performed By: #### C MP, CBC, TACROLIMUS. #### [facility] [address] [place] [address] Automated blood monocyte cou ntOrdered By: Sharan Ayoub on 01-30-2024 Monocytes (Bld) [#/Vol] 0.3 10*3/uL Normal 0.0-0.8 [facility] Comment on above: Performed By: #### C MP, CBC, TACROLIMUS. #### [facility] [address] Automated eosinophil %Ordere d By: Sharan Ayoub on 01-30-2024 Eosinophils/100 WBC (Bld) 0.0 % Normal . [facility] Comment on above: Performed By: #### C MP, CBC, TACROLIMUS. #### [address] Automated eosinophil countOr dered By: Sharan Ayoub on 01-30-2024 Eosinophils (Bld) [#/Vol] 0.0 10*3/uL Normal 0.0-0.45 [facility] Comment on above: Performed By: #### C MP, CBC, TACROLIMUS. #### [address] Automated monocyte %Ordered By: Sharan Ayoub on 01-30-2024 Monocytes/100 WBC (Bld) 2.7 % Normal . [facility] Comment on above: Performed By: #### C MP, CBC, TACROLIMUS. #### [address] Automated neutrophil %Ordere d By: Sharan Ayoub on 01-30-2024 Neutrophils/100 WBC (Bld) 89.5 % Normal . [facility] Comment on above: Performed By: #### C MP, CBC, TACROLIMUS. #### [address] Bilirubin.total [Mass/volume ] in Serum or PlasmaOrdered By: Sharan Ayoub on 01-30-2024 Bilirubin [Mass/Vol] 2.4 mg/dL High 0.3-1.0 [facility] Comment on above: Samples from [...] By: #### C MP, CBC, TACROLIMUS. #### [address] Calcium [Mass/volume] in Ser um or PlasmaOrdered By: Sharan Ayoub on 01-30-2024 Calcium [Mass/Vol] 9.4 mg/dL Normal 8.6-10.3 [facility] Comment on above: Performed By: #### C MP, CBC, TACROLIMUS. #### [address] Carbon dioxide, total [Moles /volume] in Serum or PlasmaOrdered By: Sharan Ayoub on 01-30-2024 CO2 [Moles/Vol] 29.0 mmol/L Normal 21.0-31.0 [facility] Comment on above: Performed By: #### C MP, CBC, TACROLIMUS. #### [address] Chloride [Moles/volume] in S kasi or PlasmaOrdered By: Sharan Ayoub on 01-30-2024 Chloride [Moles/Vol] 102 mmol/L Normal 98-107 [facility] Comment on above: Performed By: #### C MP, CBC, TACROLIMUS. #### [address] Complete Blood Count Auto Di ffon 01-30-2024 Mean Corpuscular HGB Conc 33.2 g/dL Normal 32.5-35.6 [facility] Comment on above: Performed By: #### C MP, CBC, TACROLIMUS. #### [address] NRBC% 0.0 /100{WBC} Normal 0-0.5 [facility] Comment on above: Performed By: #### C MP, CBC, TACROLIMUS. #### [facility] [address] Comprehensive Metabolic Pane sarah 01-30-2024 Albumin [Mass/Vol] 3.5 g/dL Normal 3.5-5.7 [facility] Comment on above: Performed By: #### C MP, CBC, TACROLIMUS. #### [address] GFR/1.73 sq M.predicted MDRD (S/P/Bld) [Vol rate/Area] mL/min/{1.73_m2} Normal [facility] Comment on above: Performed By: #### C MP, CBC, TACROLIMUS. #### [address] Creatinine [Mass/volume] in Serum or PlasmaOrdered By: Sharan Ayoub on 01-30-2024 Creatinine [Mass/Vol] 0.95 mg/dL Normal 0.70-1.30 [facility] Comment on above: Performed By: #### C MP, CBC, TACROLIMUS. #### [address] Erythrocyte distribution wid th [Ratio] by Automated countOrdered By: Sharan Ayoub on 01-30-2024 Erythrocyte distribution width (RBC) [Ratio] 14.9 % High 12.0-14.8 [facility] Comment on above: Performed By: #### C MP, CBC, TACROLIMUS. #### [address] Erythrocytes [#/volume] in B lood by Automated countOrdered By: Sharan Ayoub on 01-30-2024 RBC (Bld) [#/Vol] 4.56 10*6/uL Normal 3.90-5.60 [facility] Comment on above: Performed By: #### C MP, CBC, TACROLIMUS. #### [address] Glucose [Mass/volume] in Ser um or PlasmaOrdered By: Sharan Ayoub on 01-30-2024 Glucose [Mass/Vol] 345 mg/dL High 70-100 [facility] Comment on above: ADA recommended refe rence rangeRandom Glucose Reference Range is dependent on time and content of last meal. Glucose of more than 200 mg/dL in a nonstressed, ambulatory subject supports the diagnosis of Diabetes Mellitus. Result Comment: [place] om Glucose Reference Range is dependent on time and content of last meal. Glucose of more than 200 mg/dL in a nonstressed, ambulatory subject supports the diagnosis of Diabetes Mellitus. ADA recommended reference range Performed By: #### C MP, CBC, TACROLIMUS. #### [address] Hematocrit [Volume Fraction] of Blood by Automated countOrdered By: Sharan Ayoub on 01-30-2024 Hematocrit (Bld) [Volume fraction] 43.5 % Normal 38.8-50.0 [facility] Comment on above: Performed By: #### C MP, CBC, TACROLIMUS. #### [address] Hemoglobin [Mass/volume] in BloodOrdered By: Sharan Ayoub on 01-30-2024 Hemoglobin (Bld) [Mass/Vol] 14.4 g/dL Normal 13.0-17.0 [facility] Comment on above: Performed By: #### C MP, CBC, TACROLIMUS. #### [address] Leukocytes [#/volume] correc roderick for nucleated erythrocytes in Blood by Automated counOrdered By: Sharan Ayoub on 01-30-2024 WBC corrected for nucl RBC Auto (Bld) [#/Vol] 11.1 10*3/uL High 4.1-10.5 [facility] Leukocytes [#/volume] in Blo od by Automated countOrdered By: Sharan Ayoub on 01-30-2024 WBC (Bld) [#/Vol] 11.1 10*3/uL High 4.1-10.5 [facility] Comment on above: Performed By: #### C MP, CBC, TACROLIMUS. #### [place] [address] [place] Lymphocytes [#/volume] in Bl ood by Automated countOrdered By: Sharan Ayoub on 01-30-2024 Lymphocytes (Bld) [#/Vol] 0.8 10*3/uL Low 1.00-4.8 [facility] Comment on above: Performed By: #### C MP, CBC, TACROLIMUS. #### [facility] [address] Lymphocytes/100 leukocytes i n Blood by Automated countOrdered By: Sharan Ayoub on 01-30-2024 Lymphocytes/100 WBC (Bld) 7.6 % Normal . [facility] Comment on above: Performed By: #### C MP, CBC, TACROLIMUS. #### [address] MCH [Entitic mass] by Automa roderick countOrdered By: Sharan Ayoub on 01-30-2024 MCH (RBC) [Entitic mass] 31.6 pg Normal 27.5-35.2 [facility] Comment on above: Performed By: #### C MP, CBC, TACROLIMUS. #### [address] MCHC Auto (RBC) [Mass/Vol]Or dered By: Sharan Ayoub on 01-30-2024 MCHC (RBC) [Mass/Vol] 33.2 g/dL 32.5-35.6 [facility] MCV [Entitic volume] by Auto mated countOrdered By: Sharan Ayoub on 01-30-2024 MCV (RBC) [Entitic vol] 95.3 fL Normal 83.5-101 [facility] Comment on above: Performed By: #### C MP, CBC, TACROLIMUS. #### [facility] [address] [place] [address] Neutrophils [#/volume] in Bl ood by Automated countOrdered By: Sharan Ayoub on 01-30-2024 Neutrophils (Bld) [#/Vol] 9.9 10*3/uL High 1.8-7.7 [facility] Comment on above: Performed By: #### C MP, CBC, TACROLIMUS. #### [address] No Panel InformationOrdered By: Sharan Ayoub on 01-30-2024 Estimated GFR (CKD-EPI) > 60.0 mL/Min [facility] Creatinine Clearance (Chem N/A [facility] Nucleated erythrocytes [Pres ence] in Blood by Automated countOrdered By: Sharan Ayoub on 01-30-2024 Nucleated RBC Auto Ql (Bld) 0.0 /100{WBC} 0-0.5 [facility] Platelet mean volume [Entiti c volume] in Blood by Automated countOrdered By: Sharan Ayoub on 01-30-2024 Platelet mean volume (Bld) [Entitic vol] 11.0 fL High 6.6-10.1 [facility] Comment on above: Performed By: #### C MP, CBC, TACROLIMUS. #### [address] Platelets [#/volume] in Bloo d by Automated countOrdered By: Sharan Ayoub on 01-30-2024 Platelets (Bld) [#/Vol] 152 10*3/uL Normal 150-450 [facility] Comment on above: Performed By: #### C MP, CBC, TACROLIMUS. #### [address] Potassium [Moles/volume] in Serum or PlasmaOrdered By: Sharan Ayoub on 01-30-2024 Potassium [Moles/Vol] 3.9 mmol/L Normal 3.5-5.1 [facility] Comment on above: Performed By: #### C MP, CBC, TACROLIMUS. #### [place] [address] [place] Protein [Mass/volume] in Ser um or PlasmaOrdered By: Sharan Ayoub on 01-30-2024 Protein [Mass/Vol] 6.7 g/dL Normal 6.4-8.9 [facility] Comment on above: Performed By: #### C MP, CBC, TACROLIMUS. #### [address] Serum globulin measurement b y calculation (mass/volume)Ordered By: Sharan Ayoub on 01-30-2024 Globulin (S) [Mass/Vol] 3.2 g/dL [facility] Comment on above: Performed By: #### C MP, CBC, TACROLIMUS. #### [facility] [address] [place] [address] Serum or plasma albumin/glob ulin mass ratioOrdered By: Sharan Ayoub on 01-30-2024 Albumin/Globulin [Mass ratio] 1.1 {ratio} [facility] Comment on above: Performed By: #### C MP, CBC, TACROLIMUS. #### [address] Serum or plasma anion gap de terminationOrdered By: Sharan Ayoub on 01-30-2024 Anion gap [Moles/Vol] 9.9 mmol/L Normal 6.0-15.0 [facility] Comment on above: Performed By: #### C MP, CBC, TACROLIMUS. #### [address] Sodium [Moles/volume] in Ser um or PlasmaOrdered By: Sharan Ayoub on 01-30-2024 Sodium [Moles/Vol] 137 mmol/L Normal 136-145 [facility] Comment on above: Performed By: #### C MP, CBC, TACROLIMUS. #### [address] Tacrolimuson 01-30-2024 Tacrolimus (Bld) [Mass/Vol] 7.3 ng/mL Normal <=15.0 [facility] Comment on above: Order Comment: NOTE: Result was obtained using a chemiluminescent microparticle immunoassay (CMIA) on the [employer] i system. Optimal therapeutic ranges for immunosuppressant drugs depend upon an individual patient's current clinical state, type of organ transplant, time post-transplant, co-administration of other immunosuppressants, and other clinical factors. The results of this test should be correlated with additional clinical and laboratory data before changes in treatment regimens are made. Performed By: #### 1 1253-2 #### NORMA Cherry ([id number]) [facility] ([facility]) [address] [place] [address] Tacrolimus (Transplant) No C hgon 01-30-2024 Tacrolimus (Transplant) No Chg Normal [facility] Comment on above: Result Comment: See report. Scanned copy available in EMR. PERFORMED BY: [place] [address] PATHOLOGIST MANAGER WINTER MISAEL FOX M.D. Performed By: #### C MP, CBC, TACROLIMUS. #### [facility] [address] Tacrolimus [Mass/volume] in BloodOrdered By: Sharan Ayoub on 01-30-2024 Tacrolimus (Bld) [Mass/Vol] See comment [facility] Comment on above: See report. Scanned copy available in EMR. Urea nitrogen [Mass/volume] in Serum or PlasmaOrdered By: Sharan Ayoub on 01-30-2024 Urea nitrogen [Mass/Vol] 28 mg/dL High 7-25 [facility] Comment on above: Performed By: #### C MP, CBC, TACROLIMUS. #### [facility] [address] Basic metabolic 2000 panelon 01-24-2024 Anion gap [Moles/Vol] 11 mmol/L 10 - 2 0 mmol/L [facility] Calcium [Mass/Vol] 8.8 mg/dL 8.6 - 10. 6 mg/dL [facility] Chloride [Moles/Vol] 105 mmol/L 98 - 10 7 mmol/L [facility] CO2 [Moles/Vol] 27 mmol/L 21 - 32 mmol/L [facility] Creatinine [Mass/Vol] 1.22 mg/dL 0.50 - 1.30 mg/dL [facility] GFR/1.73 sq M.predicted among non-blacks MDRD (S/P/Bld) [Vol rate/Area] 82 mL/min/{1.73_m2} - PINF [facility] Comment on above: Calculations of zander mated GFR are performed using the 2020 CKD-EPI Study Refit equation without the race variable for the IDMS-Traceable creatinine methods. https://jasn.asnjournals.org/content//ASN.014364 9794 Glucose [Mass/Vol] 231 mg/dL High 74 - 99 mg/dL [facility] Potassium [Moles/Vol] 4.1 mmol/L 3.5 - 5.3 mmol/L [facility] Sodium [Moles/Vol] 139 mmol/L 136 - 145 mmol/L [facility] Urea nitrogen [Mass/Vol] 32 mg/dL High 6 - 23 mg/dL [facility] Anion gap [Moles/Vol] 11 mmol/L Normal 10-20 [facility] Comment on above: Performed By: #### 2 4321-2 ####NORMA ADHIKARI L ([id number])[facility] ([facility])[address] [place] [address] Calcium [Mass/Vol] 8.8 mg/dL Normal 8.6-10.6 [facility] Comment on above: Performed By: #### 2 4321-2 ####NORMA ADHIKARI L ([id number])[facility] ([facility])[address] [place] [address] Chloride [Moles/Vol] 105 mmol/L Normal 98-107 [facility] Comment on above: Performed By: #### 2 4321-2 ####NORMA VILLAMOTZER L ([id number])[facility] ([facility])[address] [place] [address] CO2 [Moles/Vol] 27 mmol/L Normal 21-32 [facility] Comment on above: Performed By: #### 2 4321-2 ####NORMA ADHIKARI L ([id number])[facility] ([facility])[address] [place] [address] Creatinine [Mass/Vol] 1.22 mg/dL Normal 0.50-1.30 [facility] Comment on above: Performed By: #### 2 4321-2 ####NORMA RANGELTZGEM L ([id number])[facility] ([facility])[address] [place] [address] Glomerular filtration rate/1.73 sq M.predicted 82 mL/min/1.73m*2 Normal >60 [facility] Comment on above: Result Comment: Calc ulations of estimated GFR are performed using the 2020 CKD-EPI Study Refit equation without the race variable for the IDMS-Traceable creatinine methods. https://jasn.asnjournals.org/content//ASN.629536 2341 Performed By: #### 2 4321-2 ####NORMA Cherry ([id number])[facility] ([facility])[id number] [place] [address] Glucose [Mass/Vol] 231 mg/dL High 74-99 [facility] Comment on above: Performed By: #### 2 4321-2 ####NORMA ADHIKARI L ([id number])[facility] ([facility])[address] [place] [address] Potassium [Moles/Vol] 4.1 mmol/L Normal 3.5-5.3 [facility] Comment on above: Performed By: #### 2 4321-2 ####NORMA ADHIKARI L ([id number])[facility] ([facility])[address] [place] [address] Sodium [Moles/Vol] 139 mmol/L Normal 136-145 [facility] Comment on above: Performed By: #### 2 4321-2 ####NORMA VILLAMOKRISTAL L ([id number])[facility] ([facility])[id number] [place] [address] Urea nitrogen [Mass/Vol] 32 mg/dL High 6-23 [facility] Comment on above: Performed By: #### 2 4321-2 ####NORMA ADHIKARI L ([id number])[facility] ([facility])[id number] [place] [address] CBC W Auto Differential pane l (Bld)on 01-24-2024 Basophils (Bld) [#/Vol] 0.02 10*3/uL [facility] Basophils/100 WBC (Bld) 0.2 % 0.0 - 2.0 % [facility] Eosinophils (Bld) [#/Vol] 0.00 10*3/uL [facility] Eosinophils/100 WBC (Bld) 0.0 % 0.0 - 6.0 % [facility] Erythrocyte distribution width (RBC) [Ratio] 13.4 % 11.5 - 14.5 % [facility] Hematocrit (Bld) [Volume fraction] 41.2 % 41.0 - 52.0 % [facility] Hemoglobin (Bld) [Mass/Vol] 13.7 g/dL 13.5 - 17.5 g/dL [facility] Immature granulocytes (Bld) [#/Vol] 0.07 10*3/uL [facility] Immature granulocytes/100 WBC (Bld) 0.8 % 0.0 - 0.9 % [facility] Comment on above: Immature Granulocyte Count (IG) includes promyelocytes, myelocytes and metamyelocytes but does not include bands. Percent differential counts (%) should be interpreted in the context of the absolute cell counts (cells/UL). Interpretation and review of laboratory results Abnormal [facility] Lymphocytes (Bld) [#/Vol] 0.86 10*3/uL Low [facility] Lymphocytes/100 WBC (Bld) 10.2 % 13.0 - 44.0 % [facility] MCH (RBC) [Entitic mass] 30.9 pg 26.0 - 34.0 pg [facility] MCHC (RBC) [Mass/Vol] 33.3 g/dL 32.0 - 36.0 g/dL [facility] MCV (RBC) [Entitic vol] 93 fL 80 - 100 fL [facility] Monocytes (Bld) [#/Vol] 0.56 10*3/uL [facility] Monocytes/100 WBC (Bld) 6.6 % 2.0 - 10.0 % [facility] Neutrophils (Bld) [#/Vol] 6.94 10*3/uL [facility] Comment on above: Percent differential counts (%) should be interpreted in the context of the absolute cell counts (cells/uL). Neutrophils/100 WBC (Bld) 82.2 % 40.0 - 80.0 % [facility] Nucleated RBC/100 WBC (Bld) [Ratio] 0.0 % [facility] Platelets (Bld) [#/Vol] 153 10*3/uL [facility] RBC (Bld) [#/Vol] 4.44 10*6/uL Low [facility] WBC (Bld) [#/Vol] 8.5 10*3/uL [facility] Basophils (Bld) [#/Vol] 0.02 x10*3/uL Normal 0.00-0.10 [facility] Comment on above: Performed By: #### 5 7021-8 ####NORMA Cherry ([id number])[facility] ([facility])[address] [place] [address] Basophils/100 WBC (Bld) 0.2 % Normal 0.0-2.0 [facility] Comment on above: Performed By: #### 5 7021-8 ####NORMA Cherry ([id number])[facility] ([facility])[address] [place] [address] Eosinophils (Bld) [#/Vol] 0.00 x10*3/uL Normal 0.00-0.70 [facility] Comment on above: Performed By: #### 5 7021-8 ####NORMA Cherry ([id number])[facility] ([facility])[address] [place] [address] Eosinophils/100 WBC (Bld) 0.0 % Normal 0.0-6.0 [facility] Comment on above: Performed By: #### 5 7021-8 ####NORMA Cherry ([id number])[facility] ([facility])[address] [place] [address] Erythrocyte distribution width (RBC) [Ratio] 13.4 % Normal 11.5-14.5 [facility] Comment on above: Performed By: #### 5 7021-8 ####NORMA Cherry ([id number])[facility] ([facility])[address] [place] [address] Hematocrit (Bld) [Volume fraction] 41.2 % Normal 41.0-52.0 [facility] Comment on above: Performed By: #### 5 7021-8 ####NORMA Cherry ([id number])[facility] ([facility])[address] [place] [address] Hemoglobin (Bld) [Mass/Vol] 13.7 g/dL Normal 13.5-17.5 [facility] Comment on above: Performed By: #### 5 7021-8 ####NORMA Cherry ([id number])[facility] ([facility])[address] [place] [address] Immature granulocytes (Bld) [#/Vol] 0.07 x10*3/uL Normal 0.00-0.70 [facility] Comment on above: Performed By: #### 5 7021-8 ####NORMA Cherry ([id number])[facility] ([facility])[address] [place] [address] Immature granulocytes/100 WBC (Bld) 0.8 % Normal 0.0-0.9 [facility] Comment on above: Result Comment: Nicole ture Granulocyte Count (IG) includes promyelocytes, myelocytes and metamyelocytes but does not include bands. Percent differential counts (%) should be interpreted in the context of the absolute cell counts (cells/UL). Performed By: #### 5 7021-8 ####NORMA Cherry ([id number])[facility] ([facility])[address] [place] [address] Lymphocytes (Bld) [#/Vol] 0.86 x10*3/uL Low 1.20-4.80 [facility] Comment on above: Performed By: #### 5 7021-8 ####NORMA Cherry ([id number])[facility] ([facility])[address] [place] [address] Lymphocytes/100 WBC (Bld) 10.2 % Normal 13.0-44.0 [facility] Comment on above: Performed By: #### 5 7021-8 ####NORMA Cherry ([id number])[facility] ([facility])[address] [place] [address] MCH (RBC) [Entitic mass] 30.9 pg Normal 26.0-34.0 [facility] Comment on above: Performed By: #### 5 7021-8 ####NORMA Cherry ([id number])[facility] ([facility])[address] [place] [address] MCHC (RBC) [Mass/Vol] 33.3 g/dL Normal 32.0-36.0 [facility] Comment on above: Performed By: #### 5 7021-8 ####NORMA Cherry ([id number])[facility] ([facility])[address] [place] [address] MCV (RBC) [Entitic vol] 93 fL Normal 80-100 [facility] Comment on above: Performed By: #### 5 7021-8 ####NORMA Cherry ([id number])[facility] ([facility])[address] [place] [address] Monocytes (Bld) [#/Vol] 0.56 x10*3/uL Normal 0.10-1.00 [facility] Comment on above: Performed By: #### 5 7021-8 ####NORMA Cherry ([id number])[facility] ([facility])[address] [place] [address] Monocytes/100 WBC (Bld) 6.6 % Normal 2.0-10.0 [facility] Comment on above: Performed By: #### 5 7021-8 ####NORMA Cherry ([id number])[facility] ([facility])[address] [place] [address] Neutrophils (Bld) [#/Vol] 6.94 x10*3/uL Normal 1.20-7.70 [facility] Comment on above: Result Comment: Perc ent differential counts (%) should be interpreted in the context of the absolute cell counts (cells/uL). Performed By: #### 5 7021-8 ####NORMA Cherry ([id number])[facility] ([facility])[address] [place] [address] Neutrophils/100 WBC (Bld) 82.2 % Normal 40.0-80.0 [facility] Comment on above: Performed By: #### 5 7021-8 ####NORMA ADHIKARI L ([id number])[facility] ([facility])[address] [place] [address] Nucleated RBC/100 WBC (Bld) [Ratio] 0.0 /100 WBCs Normal 0.0-0.0 [facility] Comment on above: Performed By: #### 5 7021-8 ####NORMA Cherry ([id number])[facility] ([facility])[address] [place] [address] Platelets (Bld) [#/Vol] 153 x10*3/uL Normal 150-450 [facility] Comment on above: Performed By: #### 5 7021-8 ####NORMA Cherry ([id number])[facility] ([facility])[address] [place] [address] RBC (Bld) [#/Vol] 4.44 x10*6/uL Low 4.50-5.90 [facility] Comment on above: Performed By: #### 5 7021-8 ####NORMA ADHIKARI L ([id number])[facility] ([facility])[address] [place] [address] WBC (Bld) [#/Vol] 8.5 x10*3/uL Normal 4.4-11.3 [facility] Comment on above: Performed By: #### 5 7021-8 ####NORMA ADHIKARI L ([id number])[facility] ([facility])[address] [place] [address] Coagulation tissue factor in ducedon 01-24-2024 PT Coag (PPP) [Time] 13.4 s High 9.8-12.8 [facility] Comment on above: Performed By: #### 5 902-2 ####NORMA Cherry ([id number])[facility] ([facility])[address] [place] [address] Glucose Test strip manual (B ld) [Mass/Vol]on 01-24-2024 Glucose [Mass/Vol] 298 mg/dL High 74 - 99 mg/dL [facility] Interpretation and review of laboratory results Abnormal [facility] Glucose [Mass/Vol] 298 mg/dL High 74-99 [facility] Comment on above: Performed By: #### 2 341-6 ####NORMA Cherry ([id number])[facility] ([facility])[address] [place] [address] Glucose [Mass/Vol] 284 mg/dL High 74 - 99 mg/dL [facility] Interpretation and review of laboratory results Abnormal [facility] Glucose [Mass/Vol] 284 mg/dL High 74-99 [facility] Comment on above: Performed By: #### 2 341-6 ####NORMA Cherry ([id number])[facility] ([facility])[address] [place] [address] Glucose [Mass/Vol] 214 mg/dL High 74 - 99 mg/dL [facility] Interpretation and review of laboratory results Abnormal [facility] Glucose [Mass/Vol] 214 mg/dL High 74-99 [facility] Comment on above: Performed By: #### 2 341-6 ####NORMA Cherry ([id number])[facility] ([facility])[address] [place] [address] Glucose [Mass/Vol] 258 mg/dL High 74 - 99 mg/dL [facility] Interpretation and review of laboratory results Abnormal [facility] Glucose [Mass/Vol] 258 mg/dL High 74-99 [facility] Comment on above: Performed By: #### 2 341-6 ####NORMA Cherry ([id number])[facility] ([facility])[address] [place] [address] Hepatic function 2000 panelo n 01-24-2024 Albumin BCP dye [Mass/Vol] 2.9 g/dL Low 3.4 - 5.0 g/dL [facility] ALP [Catalytic activity/Vol] 194 U/L High 33 - 120 U/L [facility] ALT With P-5'-P [Catalytic activity/Vol] 140 U/L High 10 - 52 U/L [facility] Comment on above: Patients treated wit h Sulfasalazine may generate falsely decreased results for ALT. AST With P-5'-P [Catalytic activity/Vol] 113 U/L High 9 - 39 U/L [facility] Bilirubin [Mass/Vol] 2.1 mg/dL High 0.0 - 1 .2 mg/dL [facility] Bilirubin.direct [Mass/Vol] 1.1 mg/dL High 0.0 - 0.3 mg/dL [facility] Interpretation and review of laboratory results Abnormal [facility] Protein [Mass/Vol] 6.6 g/dL 6.4 - 8.2 g/dL [facility] Albumin BCP dye [Mass/Vol] 2.9 g/dL Low 3.4-5.0 [facility] Comment on above: Performed By: #### 2 4325-3 ####NORMA Cherry ([id number])[facility] ([facility])[id number] [place] [address] ALP [Catalytic activity/Vol] 194 U/L High 33-120 [facility] Comment on above: Performed By: #### 2 4325-3 ####NORMA Cherry ([id number])[facility] ([facility])[address] [place] [address] ALT With P-5'-P [Catalytic activity/Vol] 140 U/L High 10-52 [facility] Comment on above: Result Comment: Batool ents treated with Sulfasalazine may generate falsely decreased results for ALT. Performed By: #### 2 4325-3 ####NORMA Cherry ([id number])[facility] ([facility])[address] [facility] [place] [address] AST With P-5'-P [Catalytic activity/Vol] 113 U/L High 9-39 [facility] Comment on above: Performed By: #### 2 4325-3 ####NORMA Cherry ([id number])[facility] ([facility])[address] [place] [address] Bilirubin [Mass/Vol] 2.1 mg/dL High 0.0-1.2 [facility] Comment on above: Performed By: #### 2 4325-3 ####NORMA Cherry ([id number])[facility] ([facility])[address] [place] [address] Bilirubin.direct [Mass/Vol] 1.1 mg/dL High 0.0-0.3 [facility] Comment on above: Performed By: #### 2 4325-3 ####NORMA Cherry ([id number])[facility] ([facility])[address] [place] [address] Protein [Mass/Vol] 6.6 g/dL Normal 6.4-8.2 [facility] Comment on above: Performed By: #### 2 4325-3 ####NORMA Cherry ([id number])[facility] ([facility])[address] [place] [address] Magnesiumon 01-24-2024 Magnesium [Mass/Vol] 1.81 mg/dL 1.60 - 2.40 mg/dL [facility] Magnesium [Mass/Vol] 1.81 mg/dL Normal 1.60-2.40 [facility] Comment on above: Performed By: #### 1 9123-9 ####NORMA Cherry ([id number])[facility] ([facility])[address] [place] [address] Magnesium [Mass/Vol]on 01-23 Interpretation and review of laboratory results Normal [facility] No Panel Informationon 01-23 Interpretation and review of laboratory results Abnormal [facility] PT Coag (PPP) [Time]on 01-23 INR Coag (PPP) [Relative time] 1.2 {INR} High 0.9 - 1.1 [facility] Interpretation and review of laboratory results Abnormal [facility] INR Coag (PPP) [Relative time] 1.2 High 0.9-1.1 [facility] Comment on above: Performed By: #### 5 902-2 ####NORMA Cherry ([id number])[facility] ([facility])[id number] [place] [address] Phosphateon 01-24-2024 Phosphate [Mass/Vol] 2.0 mg/dL Low 2.5-4.9 [facility] Comment on above: Result Comment: The performance characteristics of phosphorus testing in heparinized plasma have been validated by the individual laboratory site where testing is performed. Testing on heparinized plasma is not approved by the FDA; however, such approval is not necessary. Performed By: #### 2 777-1 ####NORMA Cherry ([id number])[facility] ([facility])[address] [place] [address] Phosphoruson 01-24-2024 Phosphate [Mass/Vol] 2.0 mg/dL Low 2.5 - 4 .9 mg/dL [facility] Comment on above: The performance aditi acteristics of phosphorus testing in heparinized plasma have been validated by the individual laboratory site where testing is performed. Testing on heparinized plasma is not approved by the FDA; however, such approval is not necessary. Protime-INRon 01-24-2024 PT Coag (PPP) [Time] 13.4 s High [facility] Tacrolimuson 01-24-2024 Tacrolimus (Bld) [Mass/Vol] 6.2 ng/mL Normal <=15.0 [facility] Comment on above: Order Comment: NOTE: Result was obtained using achemiluminescent microparticle immunoassay(CMIA) on the [employer] i system.Optimal therapeutic ranges for immunosuppressantdrugs depend upon an individualpatient's current clinical state, type oforgan transplant, time post-transplant,co-administration of other immunosuppressants,and other clinical factors. The results ofthis test should be correlated with additionalclinical and laboratory data before changesin treatment regimens are made. Performed By: #### 1 1253-2 ####NORMA Cherry ([id number])[facility] ([facility])[address] [place] [address] Tacrolimus (Bld) [Mass/Vol]o n 01-24-2024 Interpretation and review of laboratory results Normal [facility] Work Phone: NOTE: Result was obt ained using a chemiluminescent microparticle immunoassay (CMIA) on the [employer] i system. Optimal therapeutic ranges for immunosuppressant drugs depend upon an individual patient's current clinical state, type of organ transplant, time post-transplant, co-administration of other immunosuppressants, and other clinical factors. The results of this test should be correlated with additional clinical and laboratory data before changes in treatment regimens are made. [facility] Work Phone: [facility] Work Phone: Tacrolimus levelon Tacrolimus (Bld) [Mass/Vol] 6.2 ng/mL NINF - 15.0 ng/mL [facility] Work Phone: Basic metabolic 2000 panelon 01-23-2024 Anion gap [Moles/Vol] 13 mmol/L 10 - 2 0 mmol/L [facility] Calcium [Mass/Vol] 9.0 mg/dL 8.6 - 10. 6 mg/dL [facility] Chloride [Moles/Vol] 101 mmol/L 98 - 10 7 mmol/L [facility] CO2 [Moles/Vol] 28 mmol/L 21 - 32 mmol/L [facility] Creatinine [Mass/Vol] 0.94 mg/dL 0.50 - 1.30 mg/dL [facility] eGFR - PINF [facility] Comment on above: Calculations of zander mated GFR are performed using the 2020 CKD-EPI Study Refit equation without the race variable for the IDMS-Traceable creatinine methods. https://jasn.asnjournals.org/content/early/ASN.176307 6751 Glucose [Mass/Vol] 239 mg/dL High 74 - 99 mg/dL [facility] Interpretation and review of laboratory results Abnormal [facility] Potassium [Moles/Vol] 4.3 mmol/L 3.5 - 5.3 mmol/L [facility] Sodium [Moles/Vol] 138 mmol/L 136 - 145 mmol/L [facility] Urea nitrogen [Mass/Vol] 33 mg/dL High 6 - 23 mg/dL [facility] Anion gap [Moles/Vol] 13 mmol/L Normal 10-20 [facility] Comment on above: Performed By: #### 2 4321-2 ####NORMA ADHIKARI L ([id number])[facility] ([facility])[address] [place] [address] Calcium [Mass/Vol] 9.0 mg/dL Normal 8.6-10.6 [facility] Comment on above: Performed By: #### 2 4321-2 ####NORMA ADHIKARI L ([id number])[facility] ([facility])[address] [place] [address] Chloride [Moles/Vol] 101 mmol/L Normal 98-107 [facility] Comment on above: Performed By: #### 2 4321-2 ####NORMA VILLAMOTZER L ([id number])[facility] ([facility])[address] [place] [address] CO2 [Moles/Vol] 28 mmol/L Normal 21-32 [facility] Comment on above: Performed By: #### 2 4321-2 ####NORMA STEVENSONER L ([id number])[facility] ([facility])[address] [place] [address] Creatinine [Mass/Vol] 0.94 mg/dL Normal 0.50-1.30 [facility] Comment on above: Performed By: #### 2 4321-2 ####NORMA RANGELTZER L ([id number])[facility] ([facility])[address] [place] [address] GFR/1.73 sq M.predicted MDRD (S/P/Bld) [Vol rate/Area] mL/min/{1.73_m2} Normal >60 [facility] Comment on above: Result Comment: Calc ulations of estimated GFR are performed using the 2020 CKD-EPI Study Refit equation without the race variable for the IDMS-Traceable creatinine methods. https://jasn.asnjournals.org/content/early/ASN.707641 6329 Performed By: #### 2 4321-2 ####NORMA RANGELTZER L ([id number])[facility] ([facility])[address] [place] [address] Glucose [Mass/Vol] 239 mg/dL High 74-99 [facility] Comment on above: Performed By: #### 2 4321-2 ####NORMA VILLAMOTZER L ([id number])[facility] ([facility])[address] [place] [address] Potassium [Moles/Vol] 4.3 mmol/L Normal 3.5-5.3 [facility] Comment on above: Performed By: #### 2 4321-2 ####NORMA VILLAMOTZER L ([id number])[facility] ([facility])[address] [place] [address] Sodium [Moles/Vol] 138 mmol/L Normal 136-145 [facility] Comment on above: Performed By: #### 2 4321-2 ####NORMA VILLAMOTZER L ([id number])[facility] ([facility])[address] [place] [address] Urea nitrogen [Mass/Vol] 33 mg/dL High 6-23 [facility] Comment on above: Performed By: #### 2 4321-2 ####NORMA VILLAMOTZER L ([id number])[facility] ([facility])[address] [place] [address] CBC W Auto Differential pane l (Bld)on 01-23-2024 Basophils (Bld) [#/Vol] 0.01 10*3/uL [facility] Basophils/100 WBC (Bld) 0.2 % 0.0 - 2.0 % [facility] Eosinophils (Bld) [#/Vol] 0.00 10*3/uL [facility] Eosinophils/100 WBC (Bld) 0.0 % 0.0 - 6.0 % [facility] Erythrocyte distribution width (RBC) [Ratio] 13.5 % 11.5 - 14.5 % [facility] Hematocrit (Bld) [Volume fraction] 40.5 % Low 41.0 - 52.0 % [facility] Hemoglobin (Bld) [Mass/Vol] 13.1 g/dL Low 13.5 - 17.5 g/dL [facility] Immature granulocytes (Bld) [#/Vol] 0.05 10*3/uL [facility] Immature granulocytes/100 WBC (Bld) 0.8 % 0.0 - 0.9 % [facility] Comment on above: Immature Granulocyte Count (IG) includes promyelocytes, myelocytes and metamyelocytes but does not include bands. Percent differential counts (%) should be interpreted in the context of the absolute cell counts (cells/UL). Interpretation and review of laboratory results Abnormal [facility] Lymphocytes (Bld) [#/Vol] 0.66 10*3/uL Low [facility] Lymphocytes/100 WBC (Bld) 10.1 % 13.0 - 44.0 % [facility] MCH (RBC) [Entitic mass] 30.5 pg 26.0 - 34.0 pg [facility] MCHC (RBC) [Mass/Vol] 32.3 g/dL 32.0 - 36.0 g/dL [facility] MCV (RBC) [Entitic vol] 94 fL 80 - 100 fL [facility] Monocytes (Bld) [#/Vol] 0.21 10*3/uL [facility] Monocytes/100 WBC (Bld) 3.2 % 2.0 - 10.0 % [facility] Neutrophils (Bld) [#/Vol] 5.58 10*3/uL [facility] Comment on above: Percent differential counts (%) should be interpreted in the context of the absolute cell counts (cells/uL). Neutrophils/100 WBC (Bld) 85.7 % 40.0 - 80.0 % [facility] Nucleated RBC/100 WBC (Bld) [Ratio] 0.0 % [facility] Platelets (Bld) [#/Vol] 128 10*3/uL Low [facility] RBC (Bld) [#/Vol] 4.29 10*6/uL [facility] WBC (Bld) [#/Vol] 6.5 10*3/uL [facility] Basophils (Bld) [#/Vol] 0.01 x10*3/uL Normal 0.00-0.10 [facility] Comment on above: Performed By: #### 2 341-6 #### NORMA Cherry ([id number]) [facility] ([facility]) [id number] [place] [address] Basophils/100 WBC (Bld) 0.2 % Normal 0.0-2.0 [facility] Comment on above: Performed By: #### 2 341-6 #### NORMA Cherry ([id number]) [facility] ([facility]) [address] [place] [address] Eosinophils (Bld) [#/Vol] 0.00 x10*3/uL Normal 0.00-0.70 [facility] Comment on above: Performed By: #### 2 341-6 #### NORMA Cherry ([id number]) [facility] ([facility]) [address] [place] [address] Eosinophils/100 WBC (Bld) 0.0 % Normal 0.0-6.0 [facility] Comment on above: Performed By: #### 2 341-6 #### NORMA Cherry ([id number]) [facility] ([facility]) [address] [place] [address] Erythrocyte distribution width (RBC) [Ratio] 13.5 % Normal 11.5-14.5 [facility] Comment on above: Performed By: #### 2 341-6 #### NORMA Cherry ([id number]) [facility] ([facility]) [address] [place] [address] Hematocrit (Bld) [Volume fraction] 40.5 % Low 41.0-52.0 [facility] Comment on above: Performed By: #### 2 341-6 #### NORMA Cherry ([id number]) [facility] ([facility]) [address] [place] [address] Hemoglobin (Bld) [Mass/Vol] 13.1 g/dL Low 13.5-17.5 [facility] Comment on above: Performed By: #### 2 341-6 #### NORMA Cherry ([id number]) [facility] ([facility]) [address] [place] [address] Immature granulocytes (Bld) [#/Vol] 0.05 x10*3/uL Normal 0.00-0.70 [facility] Comment on above: Performed By: #### 2 341-6 #### NORMA Cherry ([id number]) [facility] ([facility]) [address] [place] [address] Immature granulocytes/100 WBC (Bld) 0.8 % Normal 0.0-0.9 [facility] Comment on above: Result Comment: Nicole ture Granulocyte Count (IG) includes promyelocytes, myelocytes and metamyelocytes but does not include bands. Percent differential counts (%) should be interpreted in the context of the absolute cell counts (cells/UL). Performed By: #### 2 341-6 #### NORMA Cherry ([id number]) [facility] ([facility]) [address] [place] [address] Lymphocytes (Bld) [#/Vol] 0.66 x10*3/uL Low 1.20-4.80 [facility] Comment on above: Performed By: #### 2 341-6 #### NORMA Cherry ([id number]) [facility] ([facility]) [address] [place] [address] Lymphocytes/100 WBC (Bld) 10.1 % Normal 13.0-44.0 [facility] Comment on above: Performed By: #### 2 341-6 #### NORMA Cherry ([id number]) [facility] ([facility]) [address] [place] [address] MCH (RBC) [Entitic mass] 30.5 pg Normal 26.0-34.0 [facility] Comment on above: Performed By: #### 2 341-6 #### NORMA Cherry ([id number]) [facility] ([facility]) [address] [place] [address]62 MCHC (RBC) [Mass/Vol] 32.3 g/dL Normal 32.0-36.0 [facility] Comment on above: Performed By: #### 2 341-6 #### NORMA Cherry ([id number]) [facility] ([facility]) [address] [place] [address] 23288 MCV (RBC) [Entitic vol] 94 fL Normal 80-100 [facility] Comment on above: Performed By: #### 2 341-6 #### NORMA Cherry ([id number]) [facility] ([facility]) [address] [place] [address]879 Monocytes (Bld) [#/Vol] 0.21 x10*3/uL Normal 0.10-1.00 [facility] Comment on above: Performed By: #### 2 341-6 #### NORMA Cherry ([id number]) [facility] ([facility]) [address] [place] [address] 80702 Monocytes/100 WBC (Bld) 3.2 % Normal 2.0-10.0 [facility] Comment on above: Performed By: #### 2 341-6 #### NORMA Cherry ([id number]) [facility] ([facility]) [address] [place] [address] 23132 Neutrophils (Bld) [#/Vol] 5.58 x10*3/uL Normal 1.20-7.70 [facility] Comment on above: Result Comment: Perc ent differential counts (%) should be interpreted in the context of the absolute cell counts (cells/uL). Performed By: #### 2 341-6 #### NORMA Cherry ([id number]) [facility] ([facility]) [address] [place] [address] 31507 Neutrophils/100 WBC (Bld) 85.7 % Normal 40.0-80.0 [facility] Comment on above: Performed By: #### 2 341-6 #### NORMA Cherry ([id number]) [facility] ([facility]) [address] [place] [address] 28221 Nucleated RBC/100 WBC (Bld) [Ratio] 0.0 /100 WBCs Normal 0.0-0.0 [facility] Comment on above: Performed By: #### 2 341-6 #### NORMA Cherry ([id number]) [facility] ([facility]) [address] [place] [address] 07626 Platelets (Bld) [#/Vol] 128 x10*3/uL Low 150-450 [facility] Comment on above: Performed By: #### 2 341-6 #### NORMA Cherry ([id number]) [facility] ([facility]) [address] [place] [address] 79650 RBC (Bld) [#/Vol] 4.29 x10*6/uL Low 4.50-5.90 [facility] Comment on above: Performed By: #### 2 341-6 #### NORMA Cherry ([id number]) [facility] ([facility]) [address] [place] [address] 62395 WBC (Bld) [#/Vol] 6.5 x10*3/uL Normal 4.4-11.3 [facility] Comment on above: Performed By: #### 2 341-6 #### NORMA Cherry ([id number]) [facility] ([facility]) [address] [place] [address] 28261 Coagulation tissue factor in ducedon 01-23-2024 PT Coag (PPP) [Time] 13.9 s High 9.8-12.8 [facility] Comment on above: Performed By: #### 2 341-6 #### NORMA Cherry ([id number]) [facility] ([facility]) [address] [place] [address] 58275 Glucose Test strip manual (B ld) [Mass/Vol]on 01-23-2024 Glucose [Mass/Vol] 303 mg/dL High 74 - 99 mg/dL [facility] Interpretation and review of laboratory results Abnormal [facility] Glucose [Mass/Vol] 303 mg/dL High 74-99 [facility] Comment on above: Performed By: #### 2 341-6 ####NORMA Cherry ([id number])[facility] ([facility])[address] [place] [address] 21136 Glucose [Mass/Vol] 337 mg/dL High 74 - 99 mg/dL [facility] Interpretation and review of laboratory results Abnormal [facility] Glucose [Mass/Vol] 337 mg/dL High 74-99 [facility] Comment on above: Performed By: #### 2 341-6 ####NORMA Cherry ([id number])[facility] ([facility])[address] [place] [address] 42179 Glucose [Mass/Vol] 203 mg/dL High 74 - 99 mg/dL [facility] Interpretation and review of laboratory results Abnormal [facility] Glucose [Mass/Vol] 203 mg/dL High 74-99 [facility] Comment on above: Performed By: #### 2 341-6 #### NORMA Cherry ([id number]) [facility] ([facility]) [address] [place] [address]78 Glucose [Mass/Vol] 267 mg/dL High 74 - 99 mg/dL [facility] Interpretation and review of laboratory results Abnormal [facility] Glucose [Mass/Vol] 267 mg/dL High 74-99 [facility] Comment on above: Performed By: #### 2 341-6 #### NORMA Cherry ([id number]) [facility] ([facility]) [address] [place] [address]7076 Glucose [Mass/Vol] 248 mg/dL High 74 - 99 mg/dL [facility] Interpretation and review of laboratory results Abnormal [facility] Glucose [Mass/Vol] 248 mg/dL High 74-99 [facility] Comment on above: Performed By: #### 2 341-6 #### NORMA Cherry ([id number]) [facility] ([facility]) [address] [place], [place] [address] Hepatic function 2000 panelo n 01-23-2024 Albumin BCP dye [Mass/Vol] 2.9 g/dL Low 3.4 - 5.0 g/dL [facility] ALP [Catalytic activity/Vol] 188 U/L High 33 - 120 U/L [facility] ALT With P-5'-P [Catalytic activity/Vol] 116 U/L High 10 - 52 U/L [facility] Comment on above: Patients treated wit h Sulfasalazine may generate falsely decreased results for ALT. AST With P-5'-P [Catalytic activity/Vol] 93 U/L High 9 - 39 U/L [facility] Bilirubin [Mass/Vol] 2.1 mg/dL High 0.0 - 1 .2 mg/dL [facility] Bilirubin.direct [Mass/Vol] 1.1 mg/dL High 0.0 - 0.3 mg/dL [facility] Interpretation and review of laboratory results Abnormal [facility] Protein [Mass/Vol] 6.6 g/dL 6.4 - 8.2 g/dL [facility] Albumin BCP dye [Mass/Vol] 2.9 g/dL Low 3.4-5.0 [facility] Comment on above: Performed By: #### 2 4325-3 ####NORMA Cherry ([id number])[facility] ([facility])[address] [place] [address] ALP [Catalytic activity/Vol] 188 U/L High 33-120 [facility] Comment on above: Performed By: #### 2 4325-3 ####NORMA Cherry ([id number])[facility] ([facility])[address] [place] [address] ALT With P-5'-P [Catalytic activity/Vol] 116 U/L High 10-52 [facility] Comment on above: Result Comment: Batool ents treated with Sulfasalazine may generate falsely decreased results for ALT. Performed By: #### 2 4325-3 ####NORMA Cherry ([id number])[facility] ([facility])[address] [place] [address] AST With P-5'-P [Catalytic activity/Vol] 93 U/L High 9-39 [facility] Comment on above: Performed By: #### 2 4325-3 ####NORMA Cherry ([id number])[facility] ([facility])[address] [place] [address] Bilirubin [Mass/Vol] 2.1 mg/dL High 0.0-1.2 [facility] Comment on above: Performed By: #### 2 4325-3 ####NORMA Cherry ([id number])[facility] ([facility])[address] [place] [address] Bilirubin.direct [Mass/Vol] 1.1 mg/dL High 0.0-0.3 [facility] Comment on above: Performed By: #### 2 4325-3 ####NORMA Cherry ([id number])[facility] ([facility])[address] [place] [address] Protein [Mass/Vol] 6.6 g/dL Normal 6.4-8.2 [facility] Comment on above: Performed By: #### 2 4325-3 ####NORMA Cherry ([id number])[facility] ([facility])[address] [place] [address] Magnesiumon 01-23-2024 Magnesium [Mass/Vol] 1.67 mg/dL 1.60 - 2.40 mg/dL [facility] Magnesium [Mass/Vol] 1.67 mg/dL Normal 1.60-2.40 [facility] Comment on above: Performed By: #### 1 9123-9 ####NORMA Cherry ([id number])[facility] ([facility])[address] [place] [address]72 Natriuretic peptide B [Mass/ Vol]on 01-23-2024 Interpretation and review of laboratory results Normal [facility] Natriuretic peptide B (Bld) [Mass/Vol] 89 pg/mL 0 - 99 pg/mL [facility] <100 pg/mL - Heart f ailure unlikely [...] contact their local laboratory for further information. [facility] No Panel Informationon 01-22 [facility] Interpretation and review of laboratory results Normal [facility] PT Coag (PPP) [Time]on 01-22 INR Coag (PPP) [Relative time] 1.2 {INR} High 0.9 - 1.1 [facility] Interpretation and review of laboratory results Abnormal [facility] INR Coag (PPP) [Relative time] 1.2 High 0.9-1.1 [facility] Comment on above: Performed By: #### 2 341-6 #### NORMA Cherry ([id number]) [facility] ([facility]) [address] [place] [address] Phosphateon 01-23-2024 Phosphate [Mass/Vol] 3.6 mg/dL Normal 2.5-4.9 [facility] Comment on above: Result Comment: The performance characteristics of phosphorus testing in heparinized plasma have been validated by the individual laboratory site where testing is performed. Testing on heparinized plasma is not approved by the FDA; however, such approval is not necessary. Performed By: #### 2 777-1 ####NORMA Cherry ([id number])[facility] ([facility])[address] [place] [address] Phosphoruson 01-23-2024 Phosphate [Mass/Vol] 3.6 mg/dL 2.5 - 4 .9 mg/dL [facility] Comment on above: The performance aditi acteristics of phosphorus testing in heparinized plasma have been validated by the individual laboratory site where testing is performed. Testing on heparinized plasma is not approved by the FDA; however, such approval is not necessary. Protime-INRon 01-23-2024 PT Coag (PPP) [Time] 13.9 s [facility] Surgical pathology studyon 0 01-23-2024 Surgical pathology study Pathology report.total SEE COMMENT Surgical Pathology Case: [id number] Authorizing Provider: Zhane Vaughan MD Collected: 01/23/2024 09 Ordering Location: [facility] Received: 01/23/2024 [address] [place] [address] Pathologist: Crissy Wilson MD PhD Specimen: LIVER [...] patient's previous three liver biopsies (, , [id number]) have been reviewed and compare to the [...] is submitted in toto in one cassette. [facility] AP ASR DISCLAIMER One or more of the reagents used to perform assays on this specimen MAY have contained components considered to be analyte specific reagents (ASR's). ASR's have not been cleared or approved by the U.S. Food and Drug Administration. These assays were developed and their performance characteristics determined by the Department of Pathology at [facility]. The FDA does not require this test [...] and negative controls which stained appropriately. Normal [facility] TRANSTHORACIC ECHO (TTE) COM PLETEon 01-23-2024 TRANSTHORACIC ECHO (TTE) COMPLETE [facility], [address] [place] [address] and TRANSTHORACIC ECHOCARDIOGRAM REPORT Patient Name: LULY GIRON Reading Physician: [id number] Bethanie Ochoa MD Study Date: 01/23/2024 Ordering Provider: [id number] OLIVIA Liberty CASTANEDA MRN/PID: [id number] Fellow: Nurse: Date of /Age: 6 1995 / 28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 [employer]: Luz Collado RDCS Gender: M Additional Staff: Height: 177.80 cm Admit Date: 01/18/2024 Weight: 55.34 kg Admission Status: Inpatient - Priority discharge BSA / BMI: 1.69 m2 / 17.50 kg/m2 Department Location: [facility] Non Invasive Blood Pressure: 123 /77 mmHg Study Type: TRANSTHORACIC ECHO (TTE) COMPLETE Diagnosis/ICD: Encounter for screening for cardiovascular disorders-Z13.6 Indication: acute rejection of liver transplant, elevated LFTs, complications, organ transplant CPT Code: Echo Complete w Full Doppler-40942 Patient History: Pertinent History: S/p liver transplant [...] [place] Area A4C: 16.3 cm2 [place] A4C: 4.9 cm [place] A2C: 3.5 cm RA VOLUME BY A/L [...] msec (>120ms) (more content not included)... Normal [facility] Tacrolimuson 01-23-2024 Tacrolimus (Bld) [Mass/Vol] 6.7 ng/mL Normal <=15.0 [facility] Comment on above: Order Comment: Sched ule with ultrasound of liver with doppler studies Performed By: #### 1 1253-2 ####NORMA Cherry ([id number])[facility] ([facility])[address] [place] [address] Tacrolimus (Bld) [Mass/Vol]O rdered By: Maxwell Vazquez on 01-23-2024 Interpretation and review of laboratory results Normal [facility] NOTE: Result was obt ained using a chemiluminescent microparticle immunoassay (CMIA) on the [employer] i system. Optimal therapeutic ranges for immunosuppressant drugs depend upon an individual patient's current clinical state, type of organ transplant, time post-transplant, co-administration of other immunosuppressants, and other clinical factors. The results of this test should be correlated with additional clinical and laboratory data before changes in treatment regimens are made. [facility] Tacrolimus levelOrdered By: Maxwell Vazquez on 01-23-2024 Tacrolimus (Bld) [Mass/Vol] 6.7 ng/mL NINF - 15.0 ng/mL [facility] US GUIDED NEEDLE LIVER BIOPS Yon 01-23-2024 US GUIDED NEEDLE LIVER BIOPSY Interpreted By: Татьяна Eid and Meyers Emily STUDY: US GUIDED NEEDLE LIVER BIOPSY; 01/23/2024 8:52 am INDICATION: Signs/Symptoms:Liver biopsy, concern for acute rejection in liver transplant patient. PLEASE SEND FOR STAT BIOPSY RESULTS TO PATHOLOGY. COMPARISON: Liver biopsy 01/17/2024, ultrasound liver 01/09/2024 ACCESSION NUMBER(S): [id number] ORDERING CLINICIAN: MYA DAWSON TECHNIQUE: INTERVENTIONALIST(S): Dr. [...] findings as stated. Performed and dictated at [facility]. MACRO: None. Signed by: Татьяна Eid 01/23/2024 12:37 PM Dictation workstation: [id number] [facility] US Guidance for biopsy of Ami mattson [...] findings as stated. Performed and dictated at [facility]. MACRO: None. Signed by: Татьяна Eid 01/23/2024 12:37 PM Dictation workstation: [id number] Interpreted By: Татьяна Eid and Meyers Emily STUDY: US GUIDED NEEDLE LIVER BIOPSY; 01/23/2024 8:52 am INDICATION: Signs/Symptoms:Liver biopsy, concern for acute rejection in liver transplant patient. PLEASE SEND FOR STAT BIOPSY RESULTS TO PATHOLOGY. COMPARISON: Liver biopsy 01/17/2024, ultrasound liver 01/09/2024 ACCESSION NUMBER(S): [id number] ORDERING CLINICIAN: MYA DAWSON TECHNIQUE: INTERVENTIONALIST(S): Dr. [...] biopsy 01/17/2024, ultrasound liver 01/09/2024 ACCESSION NUMBER(S): [id number] ORDERING CLINICIAN: MYA DAWSON TECHNIQUE: INTERVENTIONALIST(S): Dr. [...] findings as stated. Performed and dictated at [facility]. MACRO: None. Signed by: Татьяна Eid 01/23/2024 12:37 PM Dictation workstation: [id number] [facility] Work Phone: [phone] Radiology Study observation (narrative) [facility] Work Phone: [phone] US Guidance for biopsy of Ami Tayered By: Татьяна Eid on 01-23-2024 [facility] Work Phone: [phone] US Heart TransthoracicOrdere d By: Bethanie Ochoa on 01-23-2024 Aortic Valve Area by Continuity of Peak Velocity 2.38 cm2 [facility] Work Phone: [phone] Aortic Valve Area by Continuity of VTI 2.09 cm2 [facility] Work Phone: [phone] AV mn grad 5.9 mmHg [facility] Work Phone: [phone] AV pk grad 12.8 mmHg [facility] Work Phone: [phone] AV pk donnell 1.79 m/s [facility] Work Phone: [phone] LV A4C EF 66.5 [facility] Work Phone: [phone] LV Biplane EF 66 % [facility] Work Phone: [phone] LVIDd 4.87 cm [facility] Work Phone: [phone] LVOT diam 1.91 cm [facility] Work Phone: [phone] MV avg E/e' ratio 4.92 [facility] Work Phone: [phone] MV E/A ratio 1.67 [facility] Work Phone: [phone] RV free wall pk S' 19.00 cm/s [facility] Work Phone: [phone] Tricuspid annular plane systolic excursion 2.5 cm [facility] Work Phone: [phone] [facility] Work Phone: [phone] US Heart Transthoracicon [facility], [address] [place] [address] and TRANSTHORACIC ECHOCARDIOGRAM REPORT Patient Name: LULY GIRON Reading Physician: [id number] Bethanie Ochoa MD Study Date: 01/23/2024 Ordering Provider: [id number] OLIVIA CASTANEDA MRN/PID: [id number] Fellow: Nurse: Date of /Age: 6 1995 / 28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 Metal Hanging: Luz Collado RD Gender: M Additional Staff: Height: 177.80 cm Admit Date: 01/18/2024 Weight: 55.34 kg Admission Status: Inpatient - Priority discharge BSA / BMI: 1.69 m2 / 17.50 kg/m2 Department Location: [facility] Non Invasive Blood Pressure: 123 /77 mmHg Study Type: TRANSTHORACIC ECHO (TTE) COMPLETE Diagnosis/ICD: Encounter for screening for cardiovascular disorders-Z13.6 Indication: acute rejection of liver transplant, elevated LFTs, complications, organ transplant CPT Code: Echo Complete w Full Doppler-20810 Patient History: Pertinent History: S/p liver transplant [...] LA Area A4C: 16.3 cm2 [place] A4C: 4.9 cm [place] A2C: 3.5 cm RA VOLUME BY A/L [...] not included)... Bethanie Sevilla MD - 01/23/2024 [facility], [address] [place] [address] and TRANSTHORACIC ECHOCARDIOGRAM REPORT Patient Name: LULY GIRON Reading Physician: [id number] Bethanie Ochoa MD Study Date: 01/23/2024 Ordering Provider: [id number] OLIVIA CASTANEDA MRN/PID: [id number] Fellow: Nurse: Date of /Age: 6 1995 / 28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 Metal Hanging: Luz Collado [facility] Gender: M Additional Staff: Height: 177.80 cm Admit Date: 01/18/2024 Weight: 55.34 kg Admission Status: Inpatient - Priority discharge BSA / BMI: 1.69 m2 / 17.50 kg/m2 Department Location: [facility] Non Invasive Blood Pressure: 123 /77 mmHg Study Type: TRANSTHORACIC ECHO (TTE) COMPLETE Diagnosis/ICD: Encounter for screening for cardiovascular disorders-Z13.6 Indication: acute rejection of liver transplant, elevated LFTs, complications, organ transplant CPT Code: Echo Complete w Full Doppler-03901 Patient History: Pertinent History: S/p liver transplant [...] LA Area A4C: 16.3 cm2 [place] A4C: 4.9 cm [place] A2C: 3.5 cm RA VOLUME BY A/L [...] m/s TRICUSPID VALV (more content not included)... [facility] Work Phone: US LIVER WITH DOPPLERon 01-01 US LIVER WITH DOPPLER Interpreted By: Татьяна Baez, STUDY: US LIVER WITH DOPPLER; 01/23/2024 11:19 am INDICATION: Signs/Symptoms:RUQ pain. COMPARISON: Ultrasound liver dated 01/09/2024 ACCESSION NUMBER(S): [id number] ORDERING CLINICIAN: DEBO URIAS TECHNIQUE: Multiple images [...] Татьяна Eid 01/23/2024 12:57 PM Dictation workstation: [id number] [facility] US liver with doppleron 01-01 Interpreted By: Татьяна Eid, STUDY: US LIVER WITH DOPPLER; 01/23/2024 11:19 am INDICATION: Signs/Symptoms:RUQ pain. COMPARISON: Ultrasound liver dated 01/09/2024 ACCESSION NUMBER(S): [id number] ORDERING CLINICIAN: DEBO URIAS TECHNIQUE: Multiple images [...] COMPARISON: Ultrasound liver dated 01/09/2024 ACCESSION NUMBER(S): [id number] ORDERING CLINICIAN: DEBO URIAS TECHNIQUE: Multiple images [...] Татьяна Eid 01/23/2024 12:57 PM Dictation workstation: [id number] [facility] Work Phone: [facility] Work Phone: Radiology Study observation (narrative) [facility] Work Phone: Bacteria identified Cx Nom ( Bld)on 01-22-2024 Interpretation and review of laboratory results Normal [facility] Basic metabolic 2000 panelon 01-22-2024 Anion gap [Moles/Vol] 14 mmol/L 10 - 2 0 mmol/L [facility] Calcium [Mass/Vol] 9.1 mg/dL 8.6 - 10. 6 mg/dL [facility] Chloride [Moles/Vol] 102 mmol/L 98 - 10 7 mmol/L [facility] CO2 [Moles/Vol] 26 mmol/L 21 - 32 mmol/L [facility] Creatinine [Mass/Vol] 0.97 mg/dL 0.50 - 1.30 mg/dL [facility] eGFR - PINF [facility] Comment on above: Calculations of zander mated GFR are performed using the 2020 CKD-EPI Study Refit equation without the race variable for the IDMS-Traceable creatinine methods. https://jasn.asnjournals.org/content/early//ASN.523237 4855 Glucose [Mass/Vol] 336 mg/dL High 74 - 99 mg/dL [facility] Interpretation and review of laboratory results Abnormal [facility] Potassium [Moles/Vol] 4.4 mmol/L 3.5 - 5.3 mmol/L [facility] Sodium [Moles/Vol] 138 mmol/L 136 - 145 mmol/L [facility] Urea nitrogen [Mass/Vol] 38 mg/dL High 6 - 23 mg/dL [facility] Anion gap [Moles/Vol] 14 mmol/L Normal 10-20 [facility] Comment on above: Performed By: #### 1 1253-2 #### NORMA Cherry ([id number]) [facility] ([facility]) [id number] [place] [address] Calcium [Mass/Vol] 9.1 mg/dL Normal 8.6-10.6 [facility] Comment on above: Performed By: #### 1 1253-2 #### NORMA Cherry ([id number]) [facility] ([facility]) [address] [place] [address] Chloride [Moles/Vol] 102 mmol/L Normal 98-107 [facility] Comment on above: Performed By: #### 1 1253-2 #### NORMA Cherry ([id number]) [facility] ([facility]) [address] [place] [address] CO2 [Moles/Vol] 26 mmol/L Normal 21-32 [facility] Comment on above: Performed By: #### 1 1253-2 #### NORMA Cherry ([id number]) [facility] ([facility]) [id number] [place] [address] Creatinine [Mass/Vol] 0.97 mg/dL Normal 0.50-1.30 [facility] Comment on above: Performed By: #### 1 1253-2 #### NORMA Cherry ([id number]) [facility] ([facility]) [address] [place] [address] GFR/1.73 sq M.predicted MDRD (S/P/Bld) [Vol rate/Area] mL/min/{1.73_m2} Normal >60 [facility] Comment on above: Result Comment: Calc ulations of estimated GFR are performed using the 2020 CKD-EPI Study Refit equation without the race variable for the IDMS-Traceable creatinine methods. https://jasn.asnjournals.org/content/early/ASN.348721 4630 Performed By: #### 1 1253-2 #### NORMA Cherry ([id number]) [facility] ([facility]) [address] [place] [address] Glucose [Mass/Vol] 336 mg/dL High 74-99 [facility] Comment on above: Performed By: #### 1 1253-2 #### NORMA Cherry ([id number]) [facility] ([facility]) [address] [place] [address] Potassium [Moles/Vol] 4.4 mmol/L Normal 3.5-5.3 [facility] Comment on above: Performed By: #### 1 1253-2 #### NORMA ADHIKARI L ([id number]) [facility] ([facility]) [address] [place] [address] Sodium [Moles/Vol] 138 mmol/L Normal 136-145 [facility] Comment on above: Performed By: #### 1 1253-2 #### NORMA ADHIKARI L ([id number]) [facility] ([facility]) [address] [place] [address] Urea nitrogen [Mass/Vol] 38 mg/dL High 6-23 [facility] Comment on above: Performed By: #### 1 1253-2 #### NORMA ADHIKARI L ([id number]) [facility] ([facility]) [address] [place] [address] CBC W Auto Differential pane l (Bld)on 01-22-2024 Basophils (Bld) [#/Vol] 0.00 10*3/uL [facility] Basophils/100 WBC (Bld) 0.0 % 0.0 - 2.0 % [facility] Eosinophils (Bld) [#/Vol] 0.00 10*3/uL [facility] Eosinophils/100 WBC (Bld) 0.0 % 0.0 - 6.0 % [facility] Erythrocyte distribution width (RBC) [Ratio] 13.5 % 11.5 - 14.5 % [facility] Hematocrit (Bld) [Volume fraction] 42.1 % 41.0 - 52.0 % [facility] Hemoglobin (Bld) [Mass/Vol] 13.4 g/dL Low 13.5 - 17.5 g/dL [facility] Immature granulocytes (Bld) [#/Vol] 0.05 10*3/uL [facility] Immature granulocytes/100 WBC (Bld) 0.7 % 0.0 - 0.9 % [facility] Comment on above: Immature Granulocyte Count (IG) includes promyelocytes, myelocytes and metamyelocytes but does not include bands. Percent differential counts (%) should be interpreted in the context of the absolute cell counts (cells/UL). Interpretation and review of laboratory results Abnormal [facility] Lymphocytes (Bld) [#/Vol] 0.60 10*3/uL Low [facility] Lymphocytes/100 WBC (Bld) 8.0 % 13.0 - 44.0 % [facility] MCH (RBC) [Entitic mass] 30.4 pg 26.0 - 34.0 pg [facility] MCHC (RBC) [Mass/Vol] 31.8 g/dL Low 32.0 - 36.0 g/dL [facility] MCV (RBC) [Entitic vol] 96 fL 80 - 100 fL [facility] Monocytes (Bld) [#/Vol] 0.07 10*3/uL Low [facility] Monocytes/100 WBC (Bld) 0.9 % 2.0 - 10.0 % [facility] Neutrophils (Bld) [#/Vol] 6.77 10*3/uL [facility] Comment on above: Percent differential counts (%) should be interpreted in the context of the absolute cell counts (cells/uL). Neutrophils/100 WBC (Bld) 90.4 % 40.0 - 80.0 % [facility] Nucleated RBC/100 WBC (Bld) [Ratio] 0.0 % [facility] Platelets (Bld) [#/Vol] 134 10*3/uL [facility] RBC (Bld) [#/Vol] 4.41 10*6/uL [facility] WBC (Bld) [#/Vol] 7.5 10*3/uL [facility] Basophils (Bld) [#/Vol] 0.00 x10*3/uL Normal 0.00-0.10 [facility] Comment on above: Performed By: #### 1 1253-2 #### NORMA Cherry ([id number]) [facility] ([facility]) [address] [place] [address] Basophils/100 WBC (Bld) 0.0 % Normal 0.0-2.0 [facility] Comment on above: Performed By: #### 1 1253-2 #### NORMA Cherry ([id number]) [facility] ([facility]) [id number] [place] [address]127 Eosinophils (Bld) [#/Vol] 0.00 x10*3/uL Normal 0.00-0.70 [facility] Comment on above: Performed By: #### 1 1253-2 #### NORMA Cherry ([id number]) [facility] ([facility]) [address] [place] [address] Eosinophils/100 WBC (Bld) 0.0 % Normal 0.0-6.0 [facility] Comment on above: Performed By: #### 1 1253-2 #### NORMA Cherry ([id number]) [facility] ([facility]) [address] [place] [address] Erythrocyte distribution width (RBC) [Ratio] 13.5 % Normal 11.5-14.5 [facility] Comment on above: Performed By: #### 1 1253-2 #### NORMA Cherry ([id number]) [facility] ([facility]) [address] [place] [address] Hematocrit (Bld) [Volume fraction] 42.1 % Normal 41.0-52.0 [facility] Comment on above: Performed By: #### 1 1253-2 #### NORMA Cherry ([id number]) [facility] ([facility]) [address] [place] [address] Hemoglobin (Bld) [Mass/Vol] 13.4 g/dL Low 13.5-17.5 [facility] Comment on above: Performed By: #### 1 1253-2 #### NORMA Cherry ([id number]) [facility] ([facility]) [address] [place] [address]54[address] Immature granulocytes (Bld) [#/Vol] 0.05 x10*3/uL Normal 0.00-0.70 [facility] Comment on above: Performed By: #### 1 1253-2 #### NORMA Cherry ([id number]) [facility] ([facility]) [id number] [place] [address] Immature granulocytes/100 WBC (Bld) 0.7 % Normal 0.0-0.9 [facility] Comment on above: Result Comment: Nicole ture Granulocyte Count (IG) includes promyelocytes, myelocytes and metamyelocytes but does not include bands. Percent differential counts (%) should be interpreted in the context of the absolute cell counts (cells/UL). Performed By: #### 1 1253-2 #### NORMA Cherry ([id number]) [facility] ([facility]) [id number] [place] [address]387 Lymphocytes (Bld) [#/Vol] 0.60 x10*3/uL Low 1.20-4.80 [facility] Comment on above: Performed By: #### 1 1253-2 #### NORMA Cherry ([id number]) [facility] ([facility]) [address] [place] [address] 20574 Lymphocytes/100 WBC (Bld) 8.0 % Normal 13.0-44.0 [facility] Comment on above: Performed By: #### 1 1253-2 #### NORMA Cherry ([id number]) [facility] ([facility]) [address] [place] [address] 05914 MCH (RBC) [Entitic mass] 30.4 pg Normal 26.0-34.0 [facility] Comment on above: Performed By: #### 1 1253-2 #### NORMA Cherry ([id number]) [facility] ([facility]) [address] [place] [address]0561 MCHC (RBC) [Mass/Vol] 31.8 g/dL Low 32.0-36.0 [facility] Comment on above: Performed By: #### 1 1253-2 #### NORMA Cherry ([id number]) [facility] ([facility]) [address] [place] [address] MCV (RBC) [Entitic vol] 96 fL Normal 80-100 [facility] Comment on above: Performed By: #### 1 1253-2 #### NORMA Cherry ([id number]) [facility] ([facility]) [address] [place] [address] Monocytes (Bld) [#/Vol] 0.07 x10*3/uL Low 0.10-1.00 [facility] Comment on above: Performed By: #### 1 1253-2 #### NORMA Cherry ([id number]) [facility] ([facility]) [address] [place] [address] 69134 Monocytes/100 WBC (Bld) 0.9 % Normal 2.0-10.0 [facility] Comment on above: Performed By: #### 1 1253-2 #### NORMA Cherry (55804) [facility] ([facility]) [id number] [place] [address] 29046 Neutrophils (Bld) [#/Vol] 6.77 x10*3/uL Normal 1.20-7.70 [facility] Comment on above: Result Comment: Perc ent differential counts (%) should be interpreted in the context of the absolute cell counts (cells/uL). Performed By: #### 1 1253-2 #### NORMA Cherry (74992) [facility] ([facility]) [address] [place] [address] Neutrophils/100 WBC (Bld) 90.4 % Normal 40.0-80.0 [facility] Comment on above: Performed By: #### 1 1253-2 #### NORMA Cherry ([id number]) [facility] ([facility]) [address] [place] [address] 67924 Nucleated RBC/100 WBC (Bld) [Ratio] 0.0 /100 WBCs Normal 0.0-0.0 [facility] Comment on above: Performed By: #### 1 1253-2 #### NORMA Cherry (60656) [facility] ([facility]) [address] [place] [address] Platelets (Bld) [#/Vol] 134 x10*3/uL Low 150-450 [facility] Comment on above: Performed By: #### 1 1253-2 #### NORMA Cherry ([id number]) [facility] ([facility]) [address] [place] [address] RBC (Bld) [#/Vol] 4.41 x10*6/uL Low 4.50-5.90 [facility] Comment on above: Performed By: #### 1 1253-2 #### NORMA Cherry (30273) [facility] ([facility]) [address] [place] [address] 47493 WBC (Bld) [#/Vol] 7.5 x10*3/uL Normal 4.4-11.3 [facility] Comment on above: Performed By: #### 1 1253-2 #### NORMA Cherry (58114) [facility] ([facility]) [address] [place] [address] 74260 Glucose Test strip manual (B ld) [Mass/Vol]on 01-22-2024 Glucose [Mass/Vol] 158 mg/dL High 74 - 99 mg/dL [facility] Interpretation and review of laboratory results Abnormal [facility] Glucose [Mass/Vol] 158 mg/dL High 74-99 [facility] Comment on above: Performed By: #### 2 341-6 #### NORMA Cherry (06291) [facility] ([facility]) [address] [place] [address] 87762 Glucose [Mass/Vol] 381 mg/dL High 74 - 99 mg/dL [facility] Interpretation and review of laboratory results Abnormal [facility] Glucose [Mass/Vol] 381 mg/dL High 74-99 [facility] Comment on above: Performed By: #### 2 341-6 #### NORMA Cherry ([id number]) [facility] ([facility]) [address] [place] [address] 82449 Glucose [Mass/Vol] 380 mg/dL High 74 - 99 mg/dL [facility] Interpretation and review of laboratory results Abnormal [facility] Glucose [Mass/Vol] 380 mg/dL High 74-99 [facility] Comment on above: Performed By: #### 1 1253-2 #### NORMA Cherry ([id number]) [facility] ([facility]) [address] [place] [address]602 Glucose [Mass/Vol] 468 mg/dL High 74 - 99 mg/dL [facility] Interpretation and review of laboratory results Abnormal [facility] Glucose [Mass/Vol] 468 mg/dL High 74-99 [facility] Comment on above: Performed By: #### 1 1253-2 #### NORMA Cherry ([id number]) [facility] ([facility]) [address] [place] [address]760 Glucose [Mass/Vol] 325 mg/dL High 74 - 99 mg/dL [facility] Interpretation and review of laboratory results Abnormal [facility] Glucose [Mass/Vol] 325 mg/dL High 74-99 [facility] Comment on above: Performed By: #### 1 1253-2 #### NORMA Cherry ([id number]) [facility] ([facility]) [address] [place] [address] 19202 Hepatic function 2000 panelo n 01-22-2024 Albumin BCP dye [Mass/Vol] 3.0 g/dL Low 3.4 - 5.0 g/dL [facility] ALP [Catalytic activity/Vol] 195 U/L High 33 - 120 U/L [facility] ALT With P-5'-P [Catalytic activity/Vol] 96 U/L High 10 - 52 U/L [facility] Comment on above: Patients treated wit h Sulfasalazine may generate falsely decreased results for ALT. AST With P-5'-P [Catalytic activity/Vol] 87 U/L High 9 - 39 U/L [facility] Bilirubin [Mass/Vol] 1.7 mg/dL High 0.0 - 1 .2 mg/dL [facility] Bilirubin.direct [Mass/Vol] 0.9 mg/dL High 0.0 - 0.3 mg/dL [facility] Interpretation and review of laboratory results Abnormal [facility] Protein [Mass/Vol] 6.7 g/dL 6.4 - 8.2 g/dL [facility] Albumin BCP dye [Mass/Vol] 3.0 g/dL Low 3.4-5.0 [facility] Comment on above: Performed By: #### 1 1253-2 #### NORMA Cherry ([id number]) [facility] ([facility]) [address] [place] [address] 28589 ALP [Catalytic activity/Vol] 195 U/L High 33-120 [facility] Comment on above: Performed By: #### 1 1253-2 #### NORMA Cherry ([id number]) [facility] ([facility]) [id number] [place] [address] 83896 ALT With P-5'-P [Catalytic activity/Vol] 96 U/L High 10-52 [facility] Comment on above: Result Comment: Batool ents treated with Sulfasalazine may generate falsely decreased results for ALT. Performed By: #### 1 1253-2 #### NORMA Cherry ([id number]) [facility] ([facility]) [id number] [place] [address] 79178 AST With P-5'-P [Catalytic activity/Vol] 87 U/L High 9-39 [facility] Comment on above: Performed By: #### 1 1253-2 #### NORMA ADHIKARI L ([id number]) [facility] ([facility]) [address] [place] [address]7317 Bilirubin [Mass/Vol] 1.7 mg/dL High 0.0-1.2 [facility] Comment on above: Performed By: #### 1 1253-2 #### NORMA Cherry ([id number]) [facility] ([facility]) [address] [id number] Bilirubin.direct [Mass/Vol] 0.9 mg/dL High 0.0-0.3 [facility] Comment on above: Performed By: #### 1 1253-2 #### NORMA Cherry ([id number]) [facility] ([facility]) [address] [place] [address] Protein [Mass/Vol] 6.7 g/dL Normal 6.4-8.2 [facility] Comment on above: Performed By: #### 1 1253-2 #### NORMA Cherry ([id number]) [facility] ([facility]) [address] [place], [place] [id number] Laboratory - Microbiology an d Antimicrobial susceptibilityon 01-22-2024 Bacteria identified Cx Nom (Bld) No growth at 4 days - FINAL REPORT [facility] Magnesiumon 01-22-2024 Magnesium [Mass/Vol] 1.83 mg/dL 1.60 - 2.40 mg/dL [facility] Magnesium [Mass/Vol] 1.83 mg/dL Normal 1.60-2.40 [facility] Comment on above: Performed By: #### 1 1253-2 #### NORMA Cherry ([id number]) [facility] ([facility]) [address] [place], [place] [address] Natriuretic peptide B [Mass/ Vol]on 01-22-2024 Natriuretic peptide B (Bld) [Mass/Vol] 89 pg/mL Normal 0-99 [facility] Comment on above: Order Comment: <100 pg/mL - Heart failure [id number] pg/mL - Intermediate probability of acute heart [...] By: #### 2 341-6 #### NORMA Cherry ([id number]) [facility] ([facility]) [address] [place], [place] [address] No Panel Informationon 01-21 Interpretation and review of laboratory results Normal [facility] Phosphateon 01-22-2024 Phosphate [Mass/Vol] 4.2 mg/dL Normal 2.5-4.9 [facility] Comment on above: Result Comment: The performance characteristics of phosphorus testing in heparinized plasma have been validated by the individual laboratory site where testing is performed. Testing on heparinized plasma is not approved by the FDA; however, such approval is not necessary. Performed By: #### 1 1253-2 #### NORMA Cherry ([id number]) [facility] ([facility]) [address] [place] [address] Phosphoruson 01-22-2024 Phosphate [Mass/Vol] 4.2 mg/dL 2.5 - 4 .9 mg/dL [facility] Comment on above: The performance aditi acteristics of phosphorus testing in heparinized plasma have been validated by the individual laboratory site where testing is performed. Testing on heparinized plasma is not approved by the FDA; however, such approval is not necessary. Tacrolimuson 01-22-2024 Tacrolimus (Bld) [Mass/Vol] 6.3 ng/mL Normal <=15.0 [facility] Comment on above: Order Comment: NOTE: Result was obtained using achemiluminescent microparticle immunoassay(CMIA) on the [employer] i system.Optimal therapeutic ranges for immunosuppressantdrugs depend upon an individualpatient's current clinical state, type oforgan transplant, time post-transplant,co-administration of other immunosuppressants,and other clinical factors. The results ofthis test should be correlated with additionalclinical and laboratory data before changesin treatment regimens are made. Performed By: #### 2 341-6 #### NORMA Cherry ([id number]) [facility] ([facility]) [address] [place] [address] Tacrolimus (Bld) [Mass/Vol]O rdered By: Isreal Mosquera on 01-22-2024 Interpretation and review of laboratory results Normal [facility] NOTE: Result was obt ained using a chemiluminescent microparticle immunoassay (CMIA) on the [employer] i system. Optimal therapeutic ranges for immunosuppressant drugs depend upon an individual patient's current clinical state, type of organ transplant, time post-transplant, co-administration of other immunosuppressants, and other clinical factors. The results of this test should be correlated with additional clinical and laboratory data before changes in treatment regimens are made. [facility] Tacrolimus levelOrdered By: Isreal Mosquera on 01-22-2024 Tacrolimus (Bld) [Mass/Vol] 6.3 ng/mL NINF - 15.0 ng/mL [facility] Basic metabolic 2000 panelon 01-21-2024 Anion gap [Moles/Vol] 14 mmol/L 10 - 2 0 mmol/L [facility] Calcium [Mass/Vol] 9.3 mg/dL 8.6 - 10. 6 mg/dL [facility] Chloride [Moles/Vol] 101 mmol/L 98 - 10 7 mmol/L [facility] CO2 [Moles/Vol] 24 mmol/L 21 - 32 mmol/L [facility] Creatinine [Mass/Vol] 1.14 mg/dL 0.50 - 1.30 mg/dL [facility] GFR/1.73 sq M.predicted among non-blacks MDRD (S/P/Bld) [Vol rate/Area] 89 mL/min/{1.73_m2} - PINF [facility] Comment on above: Calculations of zander mated GFR are performed using the 2020 CKD-EPI Study Refit equation without the race variable for the IDMS-Traceable creatinine methods. https://jasn.asnjournals.org/content//ASN.452815 9995 Glucose [Mass/Vol] 332 mg/dL High 74 - 99 mg/dL [facility] Potassium [Moles/Vol] 4.2 mmol/L 3.5 - 5.3 mmol/L [facility] Sodium [Moles/Vol] 135 mmol/L Low 136 - 145 mmol/L [facility] Urea nitrogen [Mass/Vol] 35 mg/dL High 6 - 23 mg/dL [facility] Anion gap [Moles/Vol] 14 mmol/L Normal 10-20 [facility] Comment on above: Performed By: #### 1 1253-2 #### NORMA Cherry ([id number]) [facility] ([facility]) [address] [place] [address] Calcium [Mass/Vol] 9.3 mg/dL Normal 8.6-10.6 [facility] Comment on above: Performed By: #### 1 1253-2 #### NORMA ADHIKARI L ([id number]) [facility] ([facility]) [address] [place] [address] Chloride [Moles/Vol] 101 mmol/L Normal 98-107 [facility] Comment on above: Performed By: #### 1 1253-2 #### NORMA ADHIKARI L ([id number]) [facility] ([facility]) [id number] [place] [address]284 CO2 [Moles/Vol] 24 mmol/L Normal 21-32 [facility] Comment on above: Performed By: #### 1 1253-2 #### NORMA ADHIKARI L ([id number]) [facility] ([facility]) [id number] [place] [address] Creatinine [Mass/Vol] 1.14 mg/dL Normal 0.50-1.30 [facility] Comment on above: Performed By: #### 1 1253-2 #### NORMA ADHIKARI L ([id number]) [facility] ([facility]) [address] [place] [address] 90758 Glomerular filtration rate/1.73 sq M.predicted 89 mL/min/1.73m*2 Normal >60 [facility] Comment on above: Result Comment: Calc ulations of estimated GFR are performed using the 2020 CKD-EPI Study Refit equation without the race variable for the IDMS-Traceable creatinine methods. https://jasn.asnjournals.org/content/early//ASN.153949 0545 Performed By: #### 1 1253-2 #### NORMA ADHIKARI L ([id number]) [facility] ([facility]) [address] [place] [address] Glucose [Mass/Vol] 332 mg/dL High 74-99 [facility] Comment on above: Performed By: #### 1 1253-2 #### NORMA Cherry ([id number]) [facility] ([facility]) [address] [place] [address]83 Potassium [Moles/Vol] 4.2 mmol/L Normal 3.5-5.3 [facility] Comment on above: Performed By: #### 1 1253-2 #### NORMA Cherry ([id number]) [facility] ([facility]) [id number] [place] [address]015 Sodium [Moles/Vol] 135 mmol/L Low 136-145 [facility] Comment on above: Performed By: #### 1 1253-2 #### NORMA Cherry ([id number]) [facility] ([facility]) [address] [place] [address]999 Urea nitrogen [Mass/Vol] 35 mg/dL High 6-23 [facility] Comment on above: Performed By: #### 1 1253-2 #### NORMA Cherry ([id number]) [facility] ([facility]) [id number] [place] [address] 45061 CBC W Auto Differential pane l (Bld)on 01-21-2024 Basophils (Bld) [#/Vol] 0.03 10*3/uL [facility] Basophils/100 WBC (Bld) 0.1 % 0.0 - 2.0 % [facility] Eosinophils (Bld) [#/Vol] 0.00 10*3/uL [facility] Eosinophils/100 WBC (Bld) 0.0 % 0.0 - 6.0 % [facility] Erythrocyte distribution width (RBC) [Ratio] 13.6 % 11.5 - 14.5 % [facility] Hematocrit (Bld) [Volume fraction] 42.6 % 41.0 - 52.0 % [facility] Hemoglobin (Bld) [Mass/Vol] 14.2 g/dL 13.5 - 17.5 g/dL [facility] Immature granulocytes (Bld) [#/Vol] 0.15 10*3/uL [facility] Immature granulocytes/100 WBC (Bld) 0.7 % 0.0 - 0.9 % [facility] Comment on above: Immature Granulocyte Count (IG) includes promyelocytes, myelocytes and metamyelocytes but does not include bands. Percent differential counts (%) should be interpreted in the context of the absolute cell counts (cells/UL). Interpretation and review of laboratory results Abnormal [facility] Lymphocytes (Bld) [#/Vol] 0.75 10*3/uL Low [facility] Lymphocytes/100 WBC (Bld) 3.7 % 13.0 - 44.0 % [facility] MCH (RBC) [Entitic mass] 31.4 pg 26.0 - 34.0 pg [facility] MCHC (RBC) [Mass/Vol] 33.3 g/dL 32.0 - 36.0 g/dL [facility] MCV (RBC) [Entitic vol] 94 fL 80 - 100 fL [facility] Monocytes (Bld) [#/Vol] 0.61 10*3/uL [facility] Monocytes/100 WBC (Bld) 3.0 % 2.0 - 10.0 % [facility] Neutrophils (Bld) [#/Vol] 18.82 10*3/uL High [facility] Comment on above: Percent differential counts (%) should be interpreted in the context of the absolute cell counts (cells/uL). Neutrophils/100 WBC (Bld) 92.5 % 40.0 - 80.0 % [facility] Nucleated RBC/100 WBC (Bld) [Ratio] 0.0 % [facility] Platelets (Bld) [#/Vol] 223 10*3/uL [facility] RBC (Bld) [#/Vol] 4.52 10*6/uL [facility] WBC (Bld) [#/Vol] 20.4 10*3/uL High [facility] Basophils (Bld) [#/Vol] 0.03 x10*3/uL Normal 0.00-0.10 [facility] Comment on above: Performed By: #### 1 1253-2 #### NORMA Cherry ([id number]) [facility] ([facility]) [id number] [place] [address] 46600 Basophils/100 WBC (Bld) 0.1 % Normal 0.0-2.0 [facility] Comment on above: Performed By: #### 1 1253-2 #### NORMA ADHIKARI L ([id number]) [facility] ([facility]) [address] [place] [address]125 Eosinophils (Bld) [#/Vol] 0.00 x10*3/uL Normal 0.00-0.70 [facility] Comment on above: Performed By: #### 1 1253-2 #### NORMA ADHIKARI L ([id number]) [facility] ([facility]) [address] [place] [address]594 Eosinophils/100 WBC (Bld) 0.0 % Normal 0.0-6.0 [facility] Comment on above: Performed By: #### 1 1253-2 #### NORMA ADHIKARI L ([id number]) [facility] ([facility]) [address] [place] [address] 82511 Erythrocyte distribution width (RBC) [Ratio] 13.6 % Normal 11.5-14.5 [facility] Comment on above: Performed By: #### 1 1253-2 #### NORMA Cherry ([id number]) [facility] ([facility]) [address] [place] [address] 47361 Hematocrit (Bld) [Volume fraction] 42.6 % Normal 41.0-52.0 [facility] Comment on above: Performed By: #### 1 1253-2 #### NORMA Cherry ([id number]) [facility] ([facility]) [address] [place] [address] 04299 Hemoglobin (Bld) [Mass/Vol] 14.2 g/dL Normal 13.5-17.5 [facility] Comment on above: Performed By: #### 1 1253-2 #### NORMA ADHIKARI L ([id number]) [facility] ([facility]) [address] [place] [address] Immature granulocytes (Bld) [#/Vol] 0.15 x10*3/uL Normal 0.00-0.70 [facility] Comment on above: Performed By: #### 1 1253-2 #### NORMA Cherry ([id number]) [facility] ([facility]) [id number] [place] [address] 11005 Immature granulocytes/100 WBC (Bld) 0.7 % Normal 0.0-0.9 [facility] Comment on above: Result Comment: Nicole ture Granulocyte Count (IG) includes promyelocytes, myelocytes and metamyelocytes but does not include bands. Percent differential counts (%) should be interpreted in the context of the absolute cell counts (cells/UL). Performed By: #### 1 1253-2 #### NORMA Cherry ([id number]) [facility] ([facility]) [address] [place] [address] 92422 Lymphocytes (Bld) [#/Vol] 0.75 x10*3/uL Low 1.20-4.80 [facility] Comment on above: Performed By: #### 1 1253-2 #### NORMA Cherry ([id number]) [facility] ([facility]) [address] [place] [address] 61014 Lymphocytes/100 WBC (Bld) 3.7 % Normal 13.0-44.0 [facility] Comment on above: Performed By: #### 1 1253-2 #### NORMA Cherry ([id number]) [facility] ([facility]) [id number] [place] [address] 60739 MCH (RBC) [Entitic mass] 31.4 pg Normal 26.0-34.0 [facility] Comment on above: Performed By: #### 1 1253-2 #### NORMA Cherry ([id number]) [facility] ([facility]) [id number] [place] [address] 20403 MCHC (RBC) [Mass/Vol] 33.3 g/dL Normal 32.0-36.0 [facility] Comment on above: Performed By: #### 1 1253-2 #### NORMA Cherry ([id number]) [facility] ([facility]) [address] [place] [address] MCV (RBC) [Entitic vol] 94 fL Normal 80-100 [facility] Comment on above: Performed By: #### 1 1253-2 #### NORMA Cherry ([id number]) [facility] ([facility]) [address] [place] [address] 09657 Monocytes (Bld) [#/Vol] 0.61 x10*3/uL Normal 0.10-1.00 [facility] Comment on above: Performed By: #### 1 1253-2 #### NORMA Cherry ([id number]) [facility] ([facility]) [id number] [place] [address] 94904 Monocytes/100 WBC (Bld) 3.0 % Normal 2.0-10.0 [facility] Comment on above: Performed By: #### 1 1253-2 #### NORMA Cherry ([id number]) [facility] ([facility]) [id number] [place] [address] 21575 Neutrophils (Bld) [#/Vol] 18.82 x10*3/uL High 1.20-7.70 [facility] Comment on above: Result Comment: Perc ent differential counts (%) should be interpreted in the context of the absolute cell counts (cells/uL). Performed By: #### 1 1253-2 #### NORMA Cherry ([id number]) [facility] ([facility]) [address] [place] [address] Neutrophils/100 WBC (Bld) 92.5 % Normal 40.0-80.0 [facility] Comment on above: Performed By: #### 1 1253-2 #### NORMA ADHIKARI L ([id number]) [facility] ([facility]) [address] [place] [address] Nucleated RBC/100 WBC (Bld) [Ratio] 0.0 /100 WBCs Normal 0.0-0.0 [facility] Comment on above: Performed By: #### 1 1253-2 #### NORMA Cherry ([id number]) [facility] ([facility]) [address] [place] [address] 65766 Platelets (Bld) [#/Vol] 223 x10*3/uL Normal 150-450 [facility] Comment on above: Performed By: #### 1 1253-2 #### NORMA Cherry ([id number]) [facility] ([facility]) [address] [place] [address] 11159 RBC (Bld) [#/Vol] 4.52 x10*6/uL Normal 4.50-5.90 [facility] Comment on above: Performed By: #### 1 1253-2 #### NORMA Cherry ([id number]) [facility] ([facility]) [address] [place] [address] 05234 WBC (Bld) [#/Vol] 20.4 x10*3/uL High 4.4-11.3 [facility] Comment on above: Performed By: #### 1 1253-2 #### NORMA Cherry ([id number]) [facility] ([facility]) [address] [place] [address] 80526 Coagulation tissue factor in ducedon 01-21-2024 PT Coag (PPP) [Time] 14.1 s High 9.8-12.8 [facility] Comment on above: Performed By: #### 1 1253-2 #### NORMA Cherry ([id number]) [facility] ([facility]) [address] [place] [address] 38465 Glucose Test strip manual (B ld) [Mass/Vol]on 01-21-2024 Glucose [Mass/Vol] 195 mg/dL High 74 - 99 mg/dL [facility] Interpretation and review of laboratory results Abnormal [facility] Glucose [Mass/Vol] 195 mg/dL High 74-99 [facility] Comment on above: Performed By: #### 1 1253-2 #### NORMA Cherry ([id number]) [facility] ([facility]) [address] [place] [address] 70207 Glucose [Mass/Vol] 236 mg/dL High 74 - 99 mg/dL [facility] Interpretation and review of laboratory results Abnormal [facility] Glucose [Mass/Vol] 236 mg/dL High 74-99 [facility] Comment on above: Performed By: #### 1 1253-2 #### NORMA Cherry ([id number]) [facility] ([facility]) [address] [place] [address] 91037 Glucose [Mass/Vol] 286 mg/dL High 74 - 99 mg/dL [facility] Interpretation and review of laboratory results Abnormal [facility] Glucose [Mass/Vol] 286 mg/dL High 74-99 [facility] Comment on above: Performed By: #### 1 1253-2 #### NORMA Cherry ([id number]) [facility] ([facility]) [address] [place] [address] 03039 Glucose [Mass/Vol] 266 mg/dL High 74 - 99 mg/dL [facility] Interpretation and review of laboratory results Abnormal [facility] Glucose [Mass/Vol] 266 mg/dL High 74-99 [facility] Comment on above: Performed By: #### 1 1253-2 #### NORMA Cherry ([id number]) [facility] ([facility]) [address] [place] [address] 93288 Hepatic function 2000 panelo n 01-21-2024 Albumin BCP dye [Mass/Vol] 3.5 g/dL 3.4 - 5.0 g/dL [facility] ALP [Catalytic activity/Vol] 227 U/L High 33 - 120 U/L [facility] ALT With P-5'-P [Catalytic activity/Vol] 95 U/L High 10 - 52 U/L [facility] Comment on above: Patients treated wit h Sulfasalazine may generate falsely decreased results for ALT. AST With P-5'-P [Catalytic activity/Vol] 88 U/L High 9 - 39 U/L [facility] Bilirubin [Mass/Vol] 2.0 mg/dL High 0.0 - 1 .2 mg/dL [facility] Bilirubin.direct [Mass/Vol] 1.0 mg/dL High 0.0 - 0.3 mg/dL [facility] Interpretation and review of laboratory results Abnormal [facility] Protein [Mass/Vol] 7.3 g/dL 6.4 - 8.2 g/dL [facility] Albumin BCP dye [Mass/Vol] 3.5 g/dL Normal 3.4-5.0 [facility] Comment on above: Performed By: #### 1 1253-2 #### NORMA Cherry ([id number]) [facility] ([facility]) [id number] [place] [address] 22059 ALP [Catalytic activity/Vol] 227 U/L High 33-120 [facility] Comment on above: Performed By: #### 1 1253-2 #### NORMA Cherry ([id number]) [facility] ([facility]) [address] [place] [address] ALT With P-5'-P [Catalytic activity/Vol] 95 U/L High 10-52 [facility] Comment on above: Result Comment: Batool ents treated with Sulfasalazine may generate falsely decreased results for ALT. Performed By: #### 1 1253-2 #### NORMA Cherry ([id number]) [facility] ([facility]) [address] [place] [address] AST With P-5'-P [Catalytic activity/Vol] 88 U/L High 9-39 [facility] Comment on above: Performed By: #### 1 1253-2 #### NORMA Cherry ([id number]) [facility] ([facility]) [address] [place] [address] Bilirubin [Mass/Vol] 2.0 mg/dL High 0.0-1.2 [facility] Comment on above: Performed By: #### 1 1253-2 #### NORMA Cherry ([id number]) [facility] ([facility]) [id number] [place] [address] 49044 Bilirubin.direct [Mass/Vol] 1.0 mg/dL High 0.0-0.3 [facility] Comment on above: Performed By: #### 1 1253-2 #### NORMA Cherry ([id number]) [facility] ([facility]) [address] [place] [address] 23633 Protein [Mass/Vol] 7.3 g/dL Normal 6.4-8.2 [facility] Comment on above: Performed By: #### 1 1253-2 #### NORMA Cherry ([id number]) [facility] ([facility]) [address] [place], [place] [id number] Magnesiumon 01-21-2024 Magnesium [Mass/Vol] 1.57 mg/dL Low 1.60 - 2.40 mg/dL [facility] Magnesium [Mass/Vol] 1.57 mg/dL Low 1.60-2.40 [facility] Comment on above: Performed By: #### 1 1253-2 #### NORMA Cherry ([id number]) [facility] ([facility]) [address] [place] [address] 68749 No Panel Informationon 01-20 Interpretation and review of laboratory results Abnormal [facility] PT Coag (PPP) [Time]on 01-20 INR Coag (PPP) [Relative time] 1.3 {INR} High 0.9 - 1.1 [facility] Interpretation and review of laboratory results Abnormal [facility] INR Coag (PPP) [Relative time] 1.3 High 0.9-1.1 [facility] Comment on above: Performed By: #### 1 1253-2 #### NORMA Cherry ([id number]) [facility] ([facility]) [address] [place] [address] 74209 Phosphateon 01-21-2024 Phosphate [Mass/Vol] 4.7 mg/dL Normal 2.5-4.9 [facility] Comment on above: Result Comment: The performance characteristics of phosphorus testing in heparinized plasma have been validated by the individual laboratory site where testing is performed. Testing on heparinized plasma is not approved by the FDA; however, such approval is not necessary. Performed By: #### 1 1253-2 #### NORMA Cherry ([id number]) [facility] ([facility]) [id number] [place] [address] 19112 Phosphate [Mass/Vol]on 01-20 Interpretation and review of laboratory results [facility] Phosphoruson 01-21-2024 Phosphate [Mass/Vol] 4.7 mg/dL 2.5 - 4 .9 mg/dL [facility] Comment on above: The performance aditi acteristics of phosphorus testing in heparinized plasma have been validated by the individual laboratory site where testing is performed. Testing on heparinized plasma is not approved by the FDA; however, such approval is not necessary. Protime-INRon 01-21-2024 PT Coag (PPP) [Time] 14.1 s [facility] Tacrolimuson 01-21-2024 Tacrolimus (Bld) [Mass/Vol] 6.8 ng/mL Normal <=15.0 [facility] Comment on above: Order Comment: NOTE: Result was obtained using a chemiluminescent microparticle immunoassay (CMIA) on the [employer] i system. Optimal therapeutic ranges for immunosuppressant drugs depend upon an individual patient's current clinical state, type of organ transplant, time post-transplant, co-administration of other immunosuppressants, and other clinical factors. The results of this test should be correlated with additional clinical and laboratory data before changes in treatment regimens are made. Performed By: #### 1 1253-2 #### NORMA Cherry ([id number]) [facility] ([facility]) [address] [place] [address] Tacrolimus (Bld) [Mass/Vol]o n 01-21-2024 Interpretation and review of laboratory results [facility] Work Phone: NOTE: Result was obt ained using a chemiluminescent microparticle immunoassay (CMIA) on the [employer] i system. Optimal therapeutic ranges for immunosuppressant drugs depend upon an individual patient's current clinical state, type of organ transplant, time post-transplant, co-administration of other immunosuppressants, and other clinical factors. The results of this test should be correlated with additional clinical and laboratory data before changes in treatment regimens are made. [facility] Work Phone: [facility] Work Phone: Tacrolimus levelon 4 Tacrolimus (Bld) [Mass/Vol] 6.8 ng/mL NINF - 15.0 ng/mL [facility] Work Phone: Basic metabolic 2000 panelon 01-20-2024 Anion gap [Moles/Vol] 13 mmol/L 10 - 2 0 mmol/L [facility] Calcium [Mass/Vol] 9.3 mg/dL 8.6 - 10. 6 mg/dL [facility] Chloride [Moles/Vol] 100 mmol/L 98 - 10 7 mmol/L [facility] CO2 [Moles/Vol] 25 mmol/L 21 - 32 mmol/L [facility] Creatinine [Mass/Vol] 0.96 mg/dL 0.50 - 1.30 mg/dL [facility] eGFR - PINF [facility] Comment on above: Calculations of zander mated GFR are performed using the 2020 CKD-EPI Study Refit equation without the race variable for the IDMS-Traceable creatinine methods. https://jasn.asnjournals.org/content//ASN.896012 1448 Glucose [Mass/Vol] 241 mg/dL High 74 - 99 mg/dL [facility] Interpretation and review of laboratory results Abnormal [facility] Potassium [Moles/Vol] 4.0 mmol/L 3.5 - 5.3 mmol/L [facility] Sodium [Moles/Vol] 134 mmol/L Low 136 - 145 mmol/L [facility] Urea nitrogen [Mass/Vol] 27 mg/dL High 6 - 23 mg/dL [facility] Anion gap [Moles/Vol] 13 mmol/L Normal 10-20 [facility] Comment on above: Performed By: #### 1 1253-2 #### NORMA Cherry ([id number]) [facility] ([facility]) [address] [place] [address] Calcium [Mass/Vol] 9.3 mg/dL Normal 8.6-10.6 [facility] Comment on above: Performed By: #### 1 1253-2 #### NORMA Cherry ([id number]) [facility] ([facility]) [address] [place] [address] Chloride [Moles/Vol] 100 mmol/L Normal 98-107 [facility] Comment on above: Performed By: #### 1 1253-2 #### NORMA Cherry ([id number]) [facility] ([facility]) [id number] [place] [address] CO2 [Moles/Vol] 25 mmol/L Normal 21-32 [facility] Comment on above: Performed By: #### 1 1253-2 #### NORMA Cherry ([id number]) [facility] ([facility]) [address] [place] [address] Creatinine [Mass/Vol] 0.96 mg/dL Normal 0.50-1.30 [facility] Comment on above: Performed By: #### 1 1253-2 #### NORMA Cherry ([id number]) [facility] ([facility]) [id number] [place] [address]313 GFR/1.73 sq M.predicted MDRD (S/P/Bld) [Vol rate/Area] mL/min/{1.73_m2} Normal >60 [facility] Comment on above: Result Comment: Calc ulations of estimated GFR are performed using the 2020 CKD-EPI Study Refit equation without the race variable for the IDMS-Traceable creatinine methods. https://jasn.asnjournals.org/content/early//ASN.938696 1719 Performed By: #### 1 1253-2 #### NORMA Cherry ([id number]) [facility] ([facility]) [address] [place] [address] Glucose [Mass/Vol] 241 mg/dL High 74-99 [facility] Comment on above: Performed By: #### 1 1253-2 #### NORMA Cherry ([id number]) [facility] ([facility]) [id number] [place] [address] Potassium [Moles/Vol] 4.0 mmol/L Normal 3.5-5.3 [facility] Comment on above: Performed By: #### 1 1253-2 #### NORMA ADHIKARI L ([id number]) [facility] ([facility]) [address] [place] [address] Sodium [Moles/Vol] 134 mmol/L Low 136-145 [facility] Comment on above: Performed By: #### 1 1253-2 #### NORMA Cherry ([id number]) [facility] ([facility]) [id number] [place] [address] Urea nitrogen [Mass/Vol] 27 mg/dL High 6-23 [facility] Comment on above: Performed By: #### 1 1253-2 #### NORMA Cherry ([id number]) [facility] ([facility]) [address] [place] [address]35 CBC W Auto Differential pane l (Bld)on 01-20-2024 Basophils (Bld) [#/Vol] 0.03 10*3/uL [facility] Basophils/100 WBC (Bld) 0.1 % 0.0 - 2.0 % [facility] Eosinophils (Bld) [#/Vol] 0.00 10*3/uL [facility] Eosinophils/100 WBC (Bld) 0.0 % 0.0 - 6.0 % [facility] Erythrocyte distribution width (RBC) [Ratio] 13.1 % 11.5 - 14.5 % [facility] Hematocrit (Bld) [Volume fraction] 40.3 % Low 41.0 - 52.0 % [facility] Hemoglobin (Bld) [Mass/Vol] 13.5 g/dL 13.5 - 17.5 g/dL [facility] Immature granulocytes (Bld) [#/Vol] 0.19 10*3/uL [facility] Immature granulocytes/100 WBC (Bld) 0.8 % 0.0 - 0.9 % [facility] Comment on above: Immature Granulocyte Count (IG) includes promyelocytes, myelocytes and metamyelocytes but does not include bands. Percent differential counts (%) should be interpreted in the context of the absolute cell counts (cells/UL). Interpretation and review of laboratory results Abnormal [facility] Lymphocytes (Bld) [#/Vol] 0.81 10*3/uL Low [facility] Lymphocytes/100 WBC (Bld) 3.3 % 13.0 - 44.0 % [facility] MCH (RBC) [Entitic mass] 31.1 pg 26.0 - 34.0 pg [facility] MCHC (RBC) [Mass/Vol] 33.5 g/dL 32.0 - 36.0 g/dL [facility] MCV (RBC) [Entitic vol] 93 fL 80 - 100 fL [facility] Monocytes (Bld) [#/Vol] 0.26 10*3/uL [facility] Monocytes/100 WBC (Bld) 1.1 % 2.0 - 10.0 % [facility] Neutrophils (Bld) [#/Vol] 22.99 10*3/uL High [facility] Comment on above: Percent differential counts (%) should be interpreted in the context of the absolute cell counts (cells/uL). Neutrophils/100 WBC (Bld) 94.7 % 40.0 - 80.0 % [facility] Nucleated RBC/100 WBC (Bld) [Ratio] 0.0 % [facility] Platelets (Bld) [#/Vol] 194 10*3/uL [facility] RBC (Bld) [#/Vol] 4.34 10*6/uL Low [facility] WBC (Bld) [#/Vol] 24.3 10*3/uL [facility] Basophils (Bld) [#/Vol] 0.03 x10*3/uL Normal 0.00-0.10 [facility] Comment on above: Performed By: #### 1 1253-2 #### NORMA Cherry ([id number]) [facility] ([facility]) [address] [place] [address] Basophils/100 WBC (Bld) 0.1 % Normal 0.0-2.0 [facility] Comment on above: Performed By: #### 1 1253-2 #### NORMA ADHIKARI L ([id number]) [facility] ([facility]) [address] [place] [address] Eosinophils (Bld) [#/Vol] 0.00 x10*3/uL Normal 0.00-0.70 [facility] Comment on above: Performed By: #### 1 1253-2 #### NORMA Cherry ([id number]) [facility] ([facility]) [address] [place] [address] Eosinophils/100 WBC (Bld) 0.0 % Normal 0.0-6.0 [facility] Comment on above: Performed By: #### 1 1253-2 #### NORMA ADHIKARI L ([id number]) [facility] ([facility]) [address] [place] [address] Erythrocyte distribution width (RBC) [Ratio] 13.1 % Normal 11.5-14.5 [facility] Comment on above: Performed By: #### 1 1253-2 #### NORMA ADHIKARI L ([id number]) [facility] ([facility]) [address] [place] [address] Hematocrit (Bld) [Volume fraction] 40.3 % Low 41.0-52.0 [facility] Comment on above: Performed By: #### 1 1253-2 #### NORMA ADHIKARI L ([id number]) [facility] ([facility]) [address] [place] [address] Hemoglobin (Bld) [Mass/Vol] 13.5 g/dL Normal 13.5-17.5 [facility] Comment on above: Performed By: #### 1 1253-2 #### NORMA ADHIKARI L ([id number]) [facility] ([facility]) [address] [place] [address] Immature granulocytes (Bld) [#/Vol] 0.19 x10*3/uL Normal 0.00-0.70 [facility] Comment on above: Performed By: #### 1 1253-2 #### NORMA Cherry ([id number]) [facility] ([facility]) [address] [place] [address] Immature granulocytes/100 WBC (Bld) 0.8 % Normal 0.0-0.9 [facility] Comment on above: Result Comment: Nicole ture Granulocyte Count (IG) includes promyelocytes, myelocytes and metamyelocytes but does not include bands. Percent differential counts (%) should be interpreted in the context of the absolute cell counts (cells/UL). Performed By: #### 1 1253-2 #### NORMA Cherry ([id number]) [facility] ([facility]) [id number] [place] [address] Lymphocytes (Bld) [#/Vol] 0.81 x10*3/uL Low 1.20-4.80 [facility] Comment on above: Performed By: #### 1 1253-2 #### NORMA Cherry ([id number]) [facility] ([facility]) [address] [place] [address] Lymphocytes/100 WBC (Bld) 3.3 % Normal 13.0-44.0 [facility] Comment on above: Performed By: #### 1 1253-2 #### NORMA Cherry ([id number]) [facility] ([facility]) [address] [place] [address] 56356 MCH (RBC) [Entitic mass] 31.1 pg Normal 26.0-34.0 [facility] Comment on above: Performed By: #### 1 1253-2 #### NORMA Cherry ([id number]) [facility] ([facility]) [address] [place] [address] MCHC (RBC) [Mass/Vol] 33.5 g/dL Normal 32.0-36.0 [facility] Comment on above: Performed By: #### 1 1253-2 #### NORMA Cherry ([id number]) [facility] ([facility]) [address] [place] [address] MCV (RBC) [Entitic vol] 93 fL Normal 80-100 [facility] Comment on above: Performed By: #### 1 1253-2 #### NORMA Cherry ([id number]) [facility] ([facility]) [address] [place] [address]74 Monocytes (Bld) [#/Vol] 0.26 x10*3/uL Normal 0.10-1.00 [facility] Comment on above: Performed By: #### 1 1253-2 #### NORMA Cherry ([id number]) [facility] ([facility]) [id number] [place] [address]54 Monocytes/100 WBC (Bld) 1.1 % Normal 2.0-10.0 [facility] Comment on above: Performed By: #### 1 1253-2 #### NORMA Cherry ([id number]) [facility] ([facility]) [id number] [place] [address] 88344 Neutrophils (Bld) [#/Vol] 22.99 x10*3/uL High 1.20-7.70 [facility] Comment on above: Result Comment: Perc ent differential counts (%) should be interpreted in the context of the absolute cell counts (cells/uL). Performed By: #### 1 1253-2 #### NORMA Cherry ([id number]) [facility] ([facility]) [address] [place] [address] Neutrophils/100 WBC (Bld) 94.7 % Normal 40.0-80.0 [facility] Comment on above: Performed By: #### 1 1253-2 #### NORMA ADHIKARI L ([id number]) [facility] ([facility]) [address] [place] [address] Nucleated RBC/100 WBC (Bld) [Ratio] 0.0 /100 WBCs Normal 0.0-0.0 [facility] Comment on above: Performed By: #### 1 1253-2 #### NORMA Cherry ([id number]) [facility] ([facility]) [address] [place] [address]25 Platelets (Bld) [#/Vol] 194 x10*3/uL Normal 150-450 [facility] Comment on above: Performed By: #### 1 1253-2 #### NORMA Cherry ([id number]) [facility] ([facility]) [address] [place] [address] 86886 RBC (Bld) [#/Vol] 4.34 x10*6/uL Low 4.50-5.90 [facility] Comment on above: Performed By: #### 1 1253-2 #### NORMA Cherry ([id number]) [facility] ([facility]) [address] [place] [address] 15125 WBC (Bld) [#/Vol] 24.3 x10*3/uL High 4.4-11.3 [facility] Comment on above: Performed By: #### 1 1253-2 #### NORMA Cherry ([id number]) [facility] ([facility]) [address] [place] [address] 55903 Coagulation tissue factor in ducedon 01-20-2024 PT Coag (PPP) [Time] 14.0 s High 9.8-12.8 [facility] Comment on above: Performed By: #### 1 1253-2 #### NORMA Cherry ([id number]) [facility] ([facility]) [address] [place] [address] 44366 Glucose Test strip manual (B ld) [Mass/Vol]on 01-20-2024 Glucose [Mass/Vol] 208 mg/dL High 74 - 99 mg/dL [facility] Interpretation and review of laboratory results Abnormal [facility] Glucose [Mass/Vol] 208 mg/dL High 74-99 [facility] Comment on above: Performed By: #### 1 1253-2 #### NORMA Cherry ([id number]) [facility] ([facility]) [address] [place] [address] 79884 Glucose [Mass/Vol] 192 mg/dL High 74 - 99 mg/dL [facility] Interpretation and review of laboratory results Abnormal [facility] Glucose [Mass/Vol] 192 mg/dL High 74-99 [facility] Comment on above: Performed By: #### 1 1253-2 #### NORMA Cherry ([id number]) [facility] ([facility]) [address] [place] [address] 41266 Glucose [Mass/Vol] 353 mg/dL High 74 - 99 mg/dL [facility] Interpretation and review of laboratory results Abnormal [facility] Glucose [Mass/Vol] 353 mg/dL High 74-99 [facility] Comment on above: Performed By: #### 1 1253-2 #### NORMA Cherry ([id number]) [facility] ([facility]) [address] [place] [address] 74691 Glucose [Mass/Vol] 168 mg/dL High 74 - 99 mg/dL [facility] Interpretation and review of laboratory results Abnormal [facility] Glucose [Mass/Vol] 168 mg/dL High 74-99 [facility] Comment on above: Performed By: #### 1 1253-2 #### NORMA Cherry ([id number]) [facility] ([facility]) [address] [place] [address] 61877 Hepatic function 2000 panelo n 01-20-2024 Albumin BCP dye [Mass/Vol] 3.2 g/dL Low 3.4 - 5.0 g/dL [facility] ALP [Catalytic activity/Vol] 251 U/L High 33 - 120 U/L [facility] ALT With P-5'-P [Catalytic activity/Vol] 78 U/L High 10 - 52 U/L [facility] Comment on above: Patients treated wit h Sulfasalazine may generate falsely decreased results for ALT. AST With P-5'-P [Catalytic activity/Vol] 68 U/L High 9 - 39 U/L [facility] Bilirubin [Mass/Vol] 1.9 mg/dL High 0.0 - 1 .2 mg/dL [facility] Bilirubin.direct [Mass/Vol] 0.9 mg/dL High 0.0 - 0.3 mg/dL [facility] Interpretation and review of laboratory results Abnormal [facility] Protein [Mass/Vol] 7.2 g/dL 6.4 - 8.2 g/dL [facility] Albumin BCP dye [Mass/Vol] 3.2 g/dL Low 3.4-5.0 [facility] Comment on above: Performed By: #### 1 1253-2 #### NORMA Cherry ([id number]) [facility] ([facility]) [id number] [place] [address] 32709 ALP [Catalytic activity/Vol] 251 U/L High 33-120 [facility] Comment on above: Performed By: #### 1 1253-2 #### NORMA Cherry ([id number]) [facility] ([facility]) [address] [place] [address] 19794 ALT With P-5'-P [Catalytic activity/Vol] 78 U/L High 10-52 [facility] Comment on above: Result Comment: Batool ents treated with Sulfasalazine may generate falsely decreased results for ALT. Performed By: #### 1 1253-2 #### NORMA Cherry ([id number]) [facility] ([facility]) [address] [place] [address] AST With P-5'-P [Catalytic activity/Vol] 68 U/L High 9-39 [facility] Comment on above: Performed By: #### 1 1253-2 #### NORMA Cherry ([id number]) [facility] ([facility]) [id number] [place] [address]709 Bilirubin [Mass/Vol] 1.9 mg/dL High 0.0-1.2 [facility] Comment on above: Performed By: #### 1 1253-2 #### NORMA Cherry ([id number]) [facility] ([facility]) [id number] [place] [address] 90366 Bilirubin.direct [Mass/Vol] 0.9 mg/dL High 0.0-0.3 [facility] Comment on above: Performed By: #### 1 1253-2 #### NORMA Cherry ([id number]) [facility] ([facility]) [address] [place] [address] 01894 Protein [Mass/Vol] 7.2 g/dL Normal 6.4-8.2 [facility] Comment on above: Performed By: #### 1 1253-2 #### NORMA Cherry ([id number]) [facility] ([facility]) [address] [place], [place] [address] Magnesiumon 01-20-2024 Magnesium [Mass/Vol] 1.95 mg/dL 1.60 - 2.40 mg/dL [facility] Magnesium [Mass/Vol] 1.95 mg/dL Normal 1.60-2.40 [facility] Comment on above: Performed By: #### 1 1253-2 #### NORMA Cherry ([id number]) [facility] ([facility]) [address] [place], [place] [id number] No Panel Informationon 01-19 Interpretation and review of laboratory results Normal [facility] PT Coag (PPP) [Time]on 01-19 INR Coag (PPP) [Relative time] 1.2 {INR} High 0.9 - 1.1 [facility] Interpretation and review of laboratory results Abnormal [facility] INR Coag (PPP) [Relative time] 1.2 High 0.9-1.1 [facility] Comment on above: Performed By: #### 1 1253-2 #### NORMA Cherry ([id number]) [facility] ([facility]) [address] [place] [address] 00426 Phosphateon 01-20-2024 Phosphate [Mass/Vol] 3.5 mg/dL Normal 2.5-4.9 [facility] Comment on above: Result Comment: The performance characteristics of phosphorus testing in heparinized plasma have been validated by the individual laboratory site where testing is performed. Testing on heparinized plasma is not approved by the FDA; however, such approval is not necessary. Performed By: #### 1 1253-2 #### NORMA Cherry ([id number]) [facility] ([facility]) [address] [place], [place] [address] Phosphoruson 01-20-2024 Phosphate [Mass/Vol] 3.5 mg/dL 2.5 - 4 .9 mg/dL [facility] Comment on above: The performance aditi acteristics of phosphorus testing in heparinized plasma have been validated by the individual laboratory site where testing is performed. Testing on heparinized plasma is not approved by the FDA; however, such approval is not necessary. Protime-INRon 01-20-2024 PT Coag (PPP) [Time] 14.0 s High [facility] Tacrolimuson 01-20-2024 Tacrolimus (Bld) [Mass/Vol] 6.1 ng/mL Normal <=15.0 [facility] Comment on above: Order Comment: NOTE: Result was obtained using a chemiluminescent microparticle immunoassay (CMIA) on the [employer] i system. Optimal therapeutic ranges for immunosuppressant drugs depend upon an individual patient's current clinical state, type of organ transplant, time post-transplant, co-administration of other immunosuppressants, and other clinical factors. The results of this test should be correlated with additional clinical and laboratory data before changes in treatment regimens are made. Performed By: #### 1 1253-2 #### NORMA Cherry ([id number]) [facility] ([facility]) [address] [place] [address] Tacrolimus (Bld) [Mass/Vol] 6.7 ng/mL Normal <=15.0 [facility] Comment on above: Order Comment: NOTE: Result was obtained using a chemiluminescent microparticle immunoassay (CMIA) on the [employer] i system. Optimal therapeutic ranges for immunosuppressant drugs depend upon an individual patient's current clinical state, type of organ transplant, time post-transplant, co-administration of other immunosuppressants, and other clinical factors. The results of this test should be correlated with additional clinical and laboratory data before changes in treatment regimens are made. Performed By: #### 1 1253-2 #### NORMA Cherry ([id number]) [facility] ([facility]) [address] [place] [address] Tacrolimus (Bld) [Mass/Vol]O rdered By: Annette Freeman on 01-20-2024 Interpretation and review of laboratory results Normal [facility] NOTE: Result was obt ained using a chemiluminescent microparticle immunoassay (CMIA) on the [employer] i system. Optimal therapeutic ranges for immunosuppressant drugs depend upon an individual patient's current clinical state, type of organ transplant, time post-transplant, co-administration of other immunosuppressants, and other clinical factors. The results of this test should be correlated with additional clinical and laboratory data before changes in treatment regimens are made. [facility] Tacrolimus levelOrdered By: Annette Freeman on 01-20-2024 Tacrolimus (Bld) [Mass/Vol] 6.7 ng/mL NINF - 15.0 ng/mL [facility] Tacrolimus levelon Tacrolimus (Bld) [Mass/Vol] 6.1 ng/mL NINF - 15.0 ng/mL [facility] Work Phone: Basic metabolic 2000 panelon 01-19-2024 Anion gap [Moles/Vol] 13 mmol/L 10 - 2 0 mmol/L [facility] Calcium [Mass/Vol] 8.8 mg/dL 8.6 - 10. 6 mg/dL [facility] Chloride [Moles/Vol] 101 mmol/L 98 - 10 7 mmol/L [facility] CO2 [Moles/Vol] 27 mmol/L 21 - 32 mmol/L [facility] Creatinine [Mass/Vol] 0.88 mg/dL 0.50 - 1.30 mg/dL [facility] eGFR - PINF [facility] Comment on above: Calculations of zander mated GFR are performed using the 2020 CKD-EPI Study Refit equation without the race variable for the IDMS-Traceable creatinine methods. https://jasn.asnjournals.org/content/early/ASN.815315 1791 Glucose [Mass/Vol] 262 mg/dL High 74 - 99 mg/dL [facility] Interpretation and review of laboratory results Abnormal [facility] Potassium [Moles/Vol] 4.6 mmol/L 3.5 - 5.3 mmol/L [facility] Sodium [Moles/Vol] 136 mmol/L 136 - 145 mmol/L [facility] Urea nitrogen [Mass/Vol] 19 mg/dL 6 - 23 mg/dL [facility] Anion gap [Moles/Vol] 13 mmol/L Normal 10-20 [facility] Comment on above: Performed By: #### 1 1253-2 #### NORMA Cherry ([id number]) [facility] ([facility]) [id number] [place] [address] 08467 Calcium [Mass/Vol] 8.8 mg/dL Normal 8.6-10.6 [facility] Comment on above: Performed By: #### 1 1253-2 #### NORMA Cherry ([id number]) [facility] ([facility]) [id number] [place] [address] 16669 Chloride [Moles/Vol] 101 mmol/L Normal 98-107 [facility] Comment on above: Performed By: #### 1 1253-2 #### NORMA ADHIKARI L ([id number]) [facility] ([facility]) [id number] [place] [address] 09995 CO2 [Moles/Vol] 27 mmol/L Normal 21-32 [facility] Comment on above: Performed By: #### 1 1253-2 #### NORMA ADHIKARI L ([id number]) [facility] ([facility]) [address] [place] [address] Creatinine [Mass/Vol] 0.88 mg/dL Normal 0.50-1.30 [facility] Comment on above: Performed By: #### 1 1253-2 #### NORMA ADHIKARI L ([id number]) [facility] ([facility]) [id number] [place] [address] 69287 GFR/1.73 sq M.predicted MDRD (S/P/Bld) [Vol rate/Area] mL/min/{1.73_m2} Normal >60 [facility] Comment on above: Result Comment: Calc ulations of estimated GFR are performed using the 2020 CKD-EPI Study Refit equation without the race variable for the IDMS-Traceable creatinine methods. https://jasn.asnjournals.org/content//ASN.146666 4270 Performed By: #### 1 1253-2 #### NORMA Cherry ([id number]) [facility] ([facility]) [id number] [place] [address] 64592 Glucose [Mass/Vol] 262 mg/dL High 74-99 [facility] Comment on above: Performed By: #### 1 1253-2 #### NORMA ADHIKARI L ([id number]) [facility] ([facility]) [address] [place] [address] 03983 Potassium [Moles/Vol] 4.6 mmol/L Normal 3.5-5.3 [facility] Comment on above: Performed By: #### 1 1253-2 #### NORMA ADHIKARI L ([id number]) [facility] ([facility]) [address] [place] [address] 52242 Sodium [Moles/Vol] 136 mmol/L Normal 136-145 [facility] Comment on above: Performed By: #### 1 1253-2 #### NORMA ADHIKARI L ([id number]) [facility] ([facility]) [address] [place] [address] 54543 Urea nitrogen [Mass/Vol] 19 mg/dL Normal 6-23 [facility] Comment on above: Performed By: #### 1 1253-2 #### NORMA ADHIKARI L ([id number]) [facility] ([facility]) [address] [place] [address] 05941 CBC W Auto Differential pane l (Bld)on 01-19-2024 Basophils (Bld) [#/Vol] 0.01 10*3/uL [facility] Basophils/100 WBC (Bld) 0.4 % 0.0 - 2.0 % [facility] Eosinophils (Bld) [#/Vol] 0.00 10*3/uL [facility] Eosinophils/100 WBC (Bld) 0.0 % 0.0 - 6.0 % [facility] Erythrocyte distribution width (RBC) [Ratio] 13.0 % 11.5 - 14.5 % [facility] Hematocrit (Bld) [Volume fraction] 41.4 % 41.0 - 52.0 % [facility] Hemoglobin (Bld) [Mass/Vol] 13.6 g/dL 13.5 - 17.5 g/dL [facility] Immature granulocytes (Bld) [#/Vol] 0.02 10*3/uL [facility] Immature granulocytes/100 WBC (Bld) 0.8 % 0.0 - 0.9 % [facility] Comment on above: Immature Granulocyte Count (IG) includes promyelocytes, myelocytes and metamyelocytes but does not include bands. Percent differential counts (%) should be interpreted in the context of the absolute cell counts (cells/UL). Interpretation and review of laboratory results Abnormal [facility] Lymphocytes (Bld) [#/Vol] 0.49 10*3/uL Low [facility] Lymphocytes/100 WBC (Bld) 18.6 % 13.0 - 44.0 % [facility] MCH (RBC) [Entitic mass] 30.6 pg 26.0 - 34.0 pg [facility] MCHC (RBC) [Mass/Vol] 32.9 g/dL 32.0 - 36.0 g/dL [facility] MCV (RBC) [Entitic vol] 93 fL 80 - 100 fL [facility] Monocytes (Bld) [#/Vol] 0.03 10*3/uL Low [facility] Monocytes/100 WBC (Bld) 1.1 % 2.0 - 10.0 % [facility] Neutrophils (Bld) [#/Vol] 2.08 10*3/uL [facility] Comment on above: Percent differential counts (%) should be interpreted in the context of the absolute cell counts (cells/uL). Neutrophils/100 WBC (Bld) 79.1 % 40.0 - 80.0 % [facility] Nucleated RBC/100 WBC (Bld) [Ratio] 0.0 % [facility] Platelets (Bld) [#/Vol] 123 10*3/uL Low [facility] RBC (Bld) [#/Vol] 4.44 10*6/uL [facility] WBC (Bld) [#/Vol] 2.6 10*3/uL [facility] Basophils (Bld) [#/Vol] 0.01 x10*3/uL Normal 0.00-0.10 [facility] Comment on above: Performed By: #### 1 1253-2 #### NORMA Cherry ([id number]) [facility] ([facility]) [id number] [place] [address] 93193 Basophils/100 WBC (Bld) 0.4 % Normal 0.0-2.0 [facility] Comment on above: Performed By: #### 1 1253-2 #### NORMA Cherry ([id number]) [facility] ([facility]) [id number] [place] [address] 57029 Eosinophils (Bld) [#/Vol] 0.00 x10*3/uL Normal 0.00-0.70 [facility] Comment on above: Performed By: #### 1 1253-2 #### NORMA Cherry ([id number]) [facility] ([facility]) [id number] [place] [address] 06609 Eosinophils/100 WBC (Bld) 0.0 % Normal 0.0-6.0 [facility] Comment on above: Performed By: #### 1 1253-2 #### NORMA Cherry ([id number]) [facility] ([facility]) [id number] [place] [address] 29117 Erythrocyte distribution width (RBC) [Ratio] 13.0 % Normal 11.5-14.5 [facility] Comment on above: Performed By: #### 1 1253-2 #### NORMA Cherry ([id number]) [facility] ([facility]) [address] [place] [address] Hematocrit (Bld) [Volume fraction] 41.4 % Normal 41.0-52.0 [facility] Comment on above: Performed By: #### 1 1253-2 #### NORMA Cherry ([id number]) [facility] ([facility]) [address] [place] [address] Hemoglobin (Bld) [Mass/Vol] 13.6 g/dL Normal 13.5-17.5 [facility] Comment on above: Performed By: #### 1 1253-2 #### NORMA Cherry ([id number]) [facility] ([facility]) [id number] [place] [address] 66549 Immature granulocytes (Bld) [#/Vol] 0.02 x10*3/uL Normal 0.00-0.70 [facility] Comment on above: Performed By: #### 1 1253-2 #### NORMA Cherry ([id number]) [facility] ([facility]) [address] [place] [address] 08886 Immature granulocytes/100 WBC (Bld) 0.8 % Normal 0.0-0.9 [facility] Comment on above: Result Comment: Nicole ture Granulocyte Count (IG) includes promyelocytes, myelocytes and metamyelocytes but does not include bands. Percent differential counts (%) should be interpreted in the context of the absolute cell counts (cells/UL). Performed By: #### 1 1253-2 #### NORMA Cherry ([id number]) [facility] ([facility]) [address] [place] [address] Lymphocytes (Bld) [#/Vol] 0.49 x10*3/uL Low 1.20-4.80 [facility] Comment on above: Performed By: #### 1 1253-2 #### ONRMA Cherry ([id number]) [facility] ([facility]) [address] [place] [address] Lymphocytes/100 WBC (Bld) 18.6 % Normal 13.0-44.0 [facility] Comment on above: Performed By: #### 1 1253-2 #### NORMA Cherry ([id number]) [facility] ([facility]) [id number] [place] [address] 12410 MCH (RBC) [Entitic mass] 30.6 pg Normal 26.0-34.0 [facility] Comment on above: Performed By: #### 1 1253-2 #### NORMA Cherry ([id number]) [facility] ([facility]) [address] [place] [address] 23275 MCHC (RBC) [Mass/Vol] 32.9 g/dL Normal 32.0-36.0 [facility] Comment on above: Performed By: #### 1 1253-2 #### NORMA Cherry ([id number]) [facility] ([facility]) [address] [place] [address] 87058 MCV (RBC) [Entitic vol] 93 fL Normal 80-100 [facility] Comment on above: Performed By: #### 1 1253-2 #### NORMA Cherry ([id number]) [facility] ([facility]) [address] [place] [address] 68482 Monocytes (Bld) [#/Vol] 0.03 x10*3/uL Low 0.10-1.00 [facility] Comment on above: Performed By: #### 1 1253-2 #### NORMA Cherry ([id number]) [facility] ([facility]) [id number] [place] [address] 34345 Monocytes/100 WBC (Bld) 1.1 % Normal 2.0-10.0 [facility] Comment on above: Performed By: #### 1 1253-2 #### NORMA Cherry ([id number]) [facility] ([facility]) [address] [place] [address] 58832 Neutrophils (Bld) [#/Vol] 2.08 x10*3/uL Normal 1.20-7.70 [facility] Comment on above: Result Comment: Perc ent differential counts (%) should be interpreted in the context of the absolute cell counts (cells/uL). Performed By: #### 1 1253-2 #### NORMA Cherry ([id number]) [facility] ([facility]) [address] [place] [address] Neutrophils/100 WBC (Bld) 79.1 % Normal 40.0-80.0 [facility] Comment on above: Performed By: #### 1 1253-2 #### NORMA Cherry ([id number]) [facility] ([facility]) [address] [place] [address] 68361 Nucleated RBC/100 WBC (Bld) [Ratio] 0.0 /100 WBCs Normal 0.0-0.0 [facility] Comment on above: Performed By: #### 1 1253-2 #### NORMA Cherry ([id number]) [facility] ([facility]) [id number] [place] [address] 62833 Platelets (Bld) [#/Vol] 123 x10*3/uL Low 150-450 [facility] Comment on above: Performed By: #### 1 1253-2 #### NORMA Cherry ([id number]) [facility] ([facility]) [id number] [place] [address] 17522 RBC (Bld) [#/Vol] 4.44 x10*6/uL Low 4.50-5.90 [facility] Comment on above: Performed By: #### 1 1253-2 #### NORMA Cherry ([id number]) [facility] ([facility]) [id number] [place] [address] 12061 WBC (Bld) [#/Vol] 2.6 x10*3/uL Low 4.4-11.3 [facility] Comment on above: Performed By: #### 1 1253-2 #### NORMA Cherry ([id number]) [facility] ([facility]) [address] [place] [address] CMV DNA LÁZARO+probe Qn (P)Orde red By: Dominique Wu on 01-19-2024 CMV DNA LÁZARO+probe (P) [Log units/Vol] [facility] Comment on above: Not calculated Laboratory comment Haroon (Report) Not detected Not Detected [facility] Reportable Range: 35-10,000,000 IU/mL. The yu CMV test is an in vitro nucleic acid amplification test for the quantitation of Cytomegalovirus (CMV) DNA in human EDTA plasma on the yu [employer] Systems. The analytical quantification range of this [...] the Molecular Diagnostic Laboratory, Department of Pathology, [facility]. [facility] EBV DNA LÁZARO+probe Qnon 01-18 EBV DNA LÁZARO+probe (Unsp spec) [Log #/Vol] [facility] Work Phone: Comment on above: Not calculated Laboratory comment Haroon (Report) Not detected Not Detected [facility] Work Phone: Reportable Range: 35-100,000,000 IU/mL. The yu EBV test is an in vitro nucleic acid amplification dual target assay for the quantitation of Isaac-Fair virus (EBV) DNA in human EDTA plasma on the yu [employer]. The test employs a dual target [...] the Molecular Diagnostic Laboratory, Department of Pathology, [facility]. [facility] Work Phone: [facility] Work Phone: Glucose Test strip manual (B ld) [Mass/Vol]on 01-19-2024 Glucose [Mass/Vol] 248 mg/dL High 74 - 99 mg/dL [facility] Interpretation and review of laboratory results Abnormal [facility] Glucose [Mass/Vol] 248 mg/dL High 74-99 [facility] Comment on above: Performed By: #### 1 1253-2 #### NORMA Cherry ([id number]) [facility] ([facility]) [address] [place] [address] Glucose [Mass/Vol] 282 mg/dL High 74 - 99 mg/dL [facility] Interpretation and review of laboratory results Abnormal [facility] Glucose [Mass/Vol] 282 mg/dL High 74-99 [facility] Comment on above: Performed By: #### 1 1253-2 #### NORMA Cherry ([id number]) [facility] ([facility]) [address] [place] [address] 88905 Glucose [Mass/Vol] 349 mg/dL High 74 - 99 mg/dL [facility] Interpretation and review of laboratory results Abnormal [facility] Glucose [Mass/Vol] 349 mg/dL High 74-99 [facility] Comment on above: Performed By: #### 1 1253-2 #### NORMA Cherry ([id number]) [facility] ([facility]) [address] [place] [address] 09617 Glucose [Mass/Vol] 312 mg/dL High 74 - 99 mg/dL [facility] Interpretation and review of laboratory results Abnormal [facility] Glucose [Mass/Vol] 312 mg/dL High 74-99 [facility] Comment on above: Performed By: #### 1 1253-2 #### NORMA Cherry ([id number]) [facility] ([facility]) [address] [place] [address] 50343 Glucose [Mass/Vol] 351 mg/dL High 74 - 99 mg/dL [facility] Interpretation and review of laboratory results Abnormal [facility] Glucose [Mass/Vol] 351 mg/dL High 74-99 [facility] Comment on above: Performed By: #### 1 1253-2 #### NORMA Cherry ([id number]) [facility] ([facility]) [address] [place] [address] 32879 Glucose [Mass/Vol] 344 mg/dL High 74 - 99 mg/dL [facility] Interpretation and review of laboratory results Abnormal [facility] Glucose [Mass/Vol] 344 mg/dL High 74-99 [facility] Comment on above: Performed By: #### 1 1253-2 #### NORMA Cherry ([id number]) [facility] ([facility]) [address] [place] [address] 85663 Glucose [Mass/Vol] 265 mg/dL High 74 - 99 mg/dL [facility] Interpretation and review of laboratory results Abnormal [facility] Glucose [Mass/Vol] 265 mg/dL High 74-99 [facility] Comment on above: Performed By: #### 1 1253-2 #### NORMA Cherry ([id number]) [facility] ([facility]) [address] [place] [address] HbA1c (Bld) [Mass fraction]o n 01-19-2024 Average glucose Estimated from glycated hemoglobin (Bld) [Mass/Vol] 137 mg/dL Not Established [facility] Interpretation and review of laboratory results Abnormal [facility] Diagnosis of Diabetes-Adults Non-Diabetic: < or = 5.6% Increased risk for developing diabetes: 5.7-6.4% Diagnostic of diabetes: > or = 6.5% Monitoring of Diabetes Age (y)....................... Therapeutic Goal (%) Adults: >18....................... ..<7.0 Pediatrics: 13-18...................<7 .5 Pediatrics: 7-12....................<8 .0 Pediatrics: 0-6..................... 7.5-8.5 [place] [employer]. Diabetes Care 33(S1), Oct 2009 [facility] Average glucose Estimated from glycated hemoglobin (Bld) [Mass/Vol] 137 mg/dL Normal Not Established [facility] Comment on above: Order Comment: NOTE: Result was obtained using a chemiluminescent microparticle immunoassay (CMIA) on the [employer] system. Optimal therapeutic ranges for immunosuppressant drugs depend upon an individual patient's current clinical state, type of organ transplant, time post-transplant, co-administration of other immunosuppressants, and other clinical factors. The results of this test should be correlated with additional clinical and laboratory data before changes in treatment regimens are made. Performed By: #### 1 1253-2 #### NORMA Cherry ([id number]) [facility] ([facility]) [address] [place] [address] Hemoglobin A1con 01-19-2024 HbA1c (Bld) [Mass fraction] 6.4 % High see below [facility] Hemoglobin A1c/Hemoglobin.to john 01-19-2024 HbA1c (Bld) [Mass fraction] 6.4 % High see below [facility] Comment on above: Order Comment: NOTE: Result was obtained using a chemiluminescent microparticle immunoassay (CMIA) on the [employer] system. Optimal therapeutic ranges for immunosuppressant drugs depend upon an individual patient's current clinical state, type of organ transplant, time post-transplant, co-administration of other immunosuppressants, and other clinical factors. The results of this test should be correlated with additional clinical and laboratory data before changes in treatment regimens are made. Performed By: #### 1 1253-2 #### NORMA Cherry ([id number]) [facility] ([facility]) [address] [place] [address] Hepatic function 2000 panelo n 01-19-2024 Albumin BCP dye [Mass/Vol] 3.1 g/dL Low 3.4 - 5.0 g/dL [facility] ALP [Catalytic activity/Vol] 271 U/L High 33 - 120 U/L [facility] ALT With P-5'-P [Catalytic activity/Vol] 83 U/L High 10 - 52 U/L [facility] Comment on above: Patients treated wit h Sulfasalazine may generate falsely decreased results for ALT. AST With P-5'-P [Catalytic activity/Vol] 84 U/L High 9 - 39 U/L [facility] Bilirubin [Mass/Vol] 2.3 mg/dL High 0.0 - 1 .2 mg/dL [facility] Bilirubin.direct [Mass/Vol] 1.2 mg/dL High 0.0 - 0.3 mg/dL [facility] Interpretation and review of laboratory results Abnormal [facility] Protein [Mass/Vol] 7.0 g/dL 6.4 - 8.2 g/dL [facility] Albumin BCP dye [Mass/Vol] 3.1 g/dL Low 3.4-5.0 [facility] Comment on above: Performed By: #### 1 1253-2 #### NORMA Cherry ([id number]) [facility] ([facility]) [address] [place] [address] ALP [Catalytic activity/Vol] 271 U/L High 33-120 [facility] Comment on above: Performed By: #### 1 1253-2 #### NORMA Cherry ([id number]) [facility] ([facility]) [id number] [place] [address] 08576 ALT With P-5'-P [Catalytic activity/Vol] 83 U/L High 10-52 [facility] Comment on above: Result Comment: Batool ents treated with Sulfasalazine may generate falsely decreased results for ALT. Performed By: #### 1 1253-2 #### NORMA Cherry ([id number]) [facility] ([facility]) [address] [place] [address] AST With P-5'-P [Catalytic activity/Vol] 84 U/L High 9-39 [facility] Comment on above: Performed By: #### 1 1253-2 #### NORMA Cherry ([id number]) [facility] ([facility]) [address] [place] [address] Bilirubin [Mass/Vol] 2.3 mg/dL High 0.0-1.2 [facility] Comment on above: Performed By: #### 1 1253-2 #### NORMA Cherry ([id number]) [facility] ([facility]) [address] [place] [address] Bilirubin.direct [Mass/Vol] 1.2 mg/dL High 0.0-0.3 [facility] Comment on above: Performed By: #### 1 1253-2 #### NORMA Cherry ([id number]) [facility] ([facility]) [id number] [place] [address] 05815 Protein [Mass/Vol] 7.0 g/dL Normal 6.4-8.2 [facility] Comment on above: Performed By: #### 1 1253-2 #### NORMA Cherry ([id number]) [facility] ([facility]) [address] [place], [place] [id number] Magnesiumon 01-19-2024 Magnesium [Mass/Vol] 2.27 mg/dL 1.60 - 2.40 mg/dL [facility] Magnesium [Mass/Vol] 2.27 mg/dL Normal 1.60-2.40 [facility] Comment on above: Performed By: #### 1 1253-2 #### NORMA Cherry ([id number]) [facility] ([facility]) [address] [place], [place] [id number] No Panel Informationon 01-18 [facility] Interpretation and review of laboratory results Normal [facility] Interpretation and review of laboratory results Abnormal [facility] PT and aPTT panel Coag (PPP) on 01-19-2024 aPTT Coag (PPP) [Time] 30 s [facility] INR Coag (PPP) [Relative time] 1.2 {INR} High 0.9 - 1.1 [facility] Interpretation and review of laboratory results Abnormal [facility] PT Coag (PPP) [Time] 13.3 s High [facility] The APTT is no longe r used for monitoring Unfractionated Heparin Therapy. For monitoring Heparin Therapy, use the Heparin Assay. [facility] aPTT Coag (PPP) [Time] 30 s Normal 27-38 [facility] Comment on above: Order Comment: NOTE: Result was obtained using a chemiluminescent microparticle immunoassay (CMIA) on the [employer] system. Optimal therapeutic ranges for immunosuppressant drugs depend upon an individual patient's current clinical state, type of organ transplant, time post-transplant, co-administration of other immunosuppressants, and other clinical factors. The results of this test should be correlated with additional clinical and laboratory data before changes in treatment regimens are made. Performed By: #### 1 1253-2 #### NORMA Cherry ([id number]) [facility] [facility] ([facility]) [address] [place] [address] 24170 INR Coag (PPP) [Relative time] 1.2 High 0.9-1.1 [facility] Comment on above: Order Comment: NOTE: Result was obtained using a chemiluminescent microparticle immunoassay (CMIA) on the [employer] i system. Optimal therapeutic ranges for immunosuppressant drugs depend upon an individual patient's current clinical state, type of organ transplant, time post-transplant, co-administration of other immunosuppressants, and other clinical factors. The results of this test should be correlated with additional clinical and laboratory data before changes in treatment regimens are made. Performed By: #### 1 1253-2 #### NORMA Cherry ([id number]) [facility] ([facility]) [address] [place] [address] 27801 PT Coag (PPP) [Time] 13.3 s High 9.8-12.8 [facility] Comment on above: Order Comment: NOTE: Result was obtained using a chemiluminescent microparticle immunoassay (CMIA) on the [employer] i system. Optimal therapeutic ranges for immunosuppressant drugs depend upon an individual patient's current clinical state, type of organ transplant, time post-transplant, co-administration of other immunosuppressants, and other clinical factors. The results of this test should be correlated with additional clinical and laboratory data before changes in treatment regimens are made. Performed By: #### 1 1253-2 #### NORMA Cherry ([id number]) [facility] ([facility]) [address] [place] [address] 95105 Phosphateon 01-19-2024 Phosphate [Mass/Vol] 2.5 mg/dL Normal 2.5-4.9 [facility] Comment on above: Result Comment: The performance characteristics of phosphorus testing in heparinized plasma have been validated by the individual laboratory site where testing is performed. Testing on heparinized plasma is not approved by the FDA; however, such approval is not necessary. Performed By: #### 1 1253-2 #### NORMA Cherry ([id number]) [facility] ([facility]) [address] [place] [address] 30555 Phosphoruson 01-19-2024 Phosphate [Mass/Vol] 2.5 mg/dL 2.5 - 4 .9 mg/dL [facility] Comment on above: The performance aditi acteristics of phosphorus testing in heparinized plasma have been validated by the individual laboratory site where testing is performed. Testing on heparinized plasma is not approved by the FDA; however, such approval is not necessary. Tacrolimuson 01-19-2024 Tacrolimus (Bld) [Mass/Vol] 8.4 ng/mL Normal <=15.0 [facility] Comment on above: Order Comment: NOTE: Result was obtained using a chemiluminescent microparticle immunoassay (CMIA) on the [employer] i system. Optimal therapeutic ranges for immunosuppressant drugs depend upon an individual patient's current clinical state, type of organ transplant, time post-transplant, co-administration of other immunosuppressants, and other clinical factors. The results of this test should be correlated with additional clinical and laboratory data before changes in treatment regimens are made. Performed By: #### 1 1253-2 #### NORMA Cherry ([id number]) [facility] ([facility]) [address] [place] [address] 66195 Tacrolimus (Bld) [Mass/Vol]O rdered By: Fracisco Chu on 01-19-2024 Interpretation and review of laboratory results Normal [facility] NOTE: Result was obt ained using a chemiluminescent microparticle immunoassay (CMIA) on the [employer] i system. Optimal therapeutic ranges for immunosuppressant drugs depend upon an individual patient's current clinical state, type of organ transplant, time post-transplant, co-administration of other immunosuppressants, and other clinical factors. The results of this test should be correlated with additional clinical and laboratory data before changes in treatment regimens are made. [facility] Tacrolimus levelOrdered By: Fracisco Chu on 01-19-2024 Tacrolimus (Bld) [Mass/Vol] 8.4 ng/mL NINF - 15.0 ng/mL [facility] Urinalysis complete panel (U )on 01-19-2024 Appearance (U) Clear Clear [facility] Bilirubin (U) [Mass/Vol] Negative NEGATIVE [facility] Color (U) Yellow Light-Yellow , Yellow, Dark-Yellow [facility] Glucose Auto test strip (U) [Mass/Vol] Normal Normal mg/dL [facility] Ketones (U) [Mass/Vol] Negative NEGATIVE mg/dL [facility] Leukocyte esterase Auto test strip Ql (U) 25 Cash/ L Abnormal NEGATIVE [facility] Nitrite Auto test strip Ql (U) Negative NEGATIVE [facility] pH (U) 6.0 [pH] 5.0, 5.5, 6.0, 6.5, 7.0, 7.5, 8.0 [facility] Protein (U) [Mass/Vol] Negative NEGATIVE, 10 (TRACE), 20 (TRACE) mg/dL [facility] RBC (U) [#/Vol] 0.03 (TRACE) Abnormal NEGATIVE [facility] Specific gravity (U) [Rel density] 1.011 1.005 - 1.035 [facility] Urobilinogen (U) [Mass/Vol] 3 (1+) Abnormal Normal mg/dL [facility] Comment on above: Some pigments and me dications may cause a false positive urobilinogen. Urinalysis microscopic panel Auto Ql (U)on 01-19-2024 Calcium oxalate crystals Computer assisted (U) [#/Area] 1+ NONE, 1+ /HPF [facility] Mucus Auto (Urine sed) [#/Area] FEW Reference range not established. /LPF [facility] RBC Auto (Urine sed) [#/Area] 3-5 NONE, 1-2, 3-5 /HPF [facility] WBC Auto (Urine sed) [#/Area] 6-10 Abnormal 1-5, NONE /HPF [facility] Bacteria identifiedon 2023 Bacteria identified Cx Nom (Bld) Test: Blood Culture Specimen Source: Peripheral Venipuncture Specimen Type: Blood culture Specimen Date: 01/18/20242121 Result Date: 01/22/20242300 Result Status: Final result Abnormal: No Resulting Lab: [facility] [address] [place] [address] CULTURE No growth at 4 days - FINAL REPORT Normal [facility] Comment on above: Performed By: #### 1 1253-2 #### NORMA Cherry ([id number]) [facility] ([facility]) [address] [place] [address] CBC W Auto Differential pane l (Bld)on 01-18-2024 Basophils (Bld) [#/Vol] 0.04 10*3/uL [facility] Basophils/100 WBC (Bld) 0.8 % 0.0 - 2.0 % [facility] Eosinophils (Bld) [#/Vol] 0.08 10*3/uL [facility] Eosinophils/100 WBC (Bld) 1.5 % 0.0 - 6.0 % [facility] Erythrocyte distribution width (RBC) [Ratio] 13.2 % 11.5 - 14.5 % [facility] Hematocrit (Bld) [Volume fraction] 34.7 % Low 41.0 - 52.0 % [facility] Hemoglobin (Bld) [Mass/Vol] 11.5 g/dL Low 13.5 - 17.5 g/dL [facility] Immature granulocytes (Bld) [#/Vol] 0.01 10*3/uL [facility] Immature granulocytes/100 WBC (Bld) 0.2 % 0.0 - 0.9 % [facility] Comment on above: Immature Granulocyte Count (IG) includes promyelocytes, myelocytes and metamyelocytes but does not include bands. Percent differential counts (%) should be interpreted in the context of the absolute cell counts (cells/UL). Interpretation and review of laboratory results Abnormal [facility] Lymphocytes (Bld) [#/Vol] 1.62 10*3/uL [facility] Lymphocytes/100 WBC (Bld) 31.3 % 13.0 - 44.0 % [facility] MCH (RBC) [Entitic mass] 31.2 pg 26.0 - 34.0 pg [facility] MCHC (RBC) [Mass/Vol] 33.1 g/dL 32.0 - 36.0 g/dL [facility] MCV (RBC) [Entitic vol] 94 fL 80 - 100 fL [facility] Monocytes (Bld) [#/Vol] 0.38 10*3/uL [facility] Monocytes/100 WBC (Bld) 7.3 % 2.0 - 10.0 % [facility] Neutrophils (Bld) [#/Vol] 3.05 10*3/uL [facility] Comment on above: Percent differential counts (%) should be interpreted in the context of the absolute cell counts (cells/uL). Neutrophils/100 WBC (Bld) 58.9 % 40.0 - 80.0 % [facility] Nucleated RBC/100 WBC (Bld) [Ratio] 0.0 % [facility] Platelets (Bld) [#/Vol] 109 10*3/uL Low [facility] RBC (Bld) [#/Vol] 3.69 10*6/uL [facility] WBC (Bld) [#/Vol] 5.2 10*3/uL [facility] Basophils (Bld) [#/Vol] 0.04 x10*3/uL Normal 0.00-0.10 [facility] Comment on above: Performed By: #### 1 1253-2 #### NORMA Cherry ([id number]) [facility] ([facility]) [address] [place] [address] Basophils/100 WBC (Bld) 0.8 % Normal 0.0-2.0 [facility] Comment on above: Performed By: #### 1 1253-2 #### NORMA VILLAMOTZGEM L ([id number]) [facility] ([facility]) [address] [place] [address] Eosinophils (Bld) [#/Vol] 0.08 x10*3/uL Normal 0.00-0.70 [facility] Comment on above: Performed By: #### 1 1253-2 #### NORMA VILLAMOKRISTAL L ([id number]) [facility] ([facility]) [address] [place] [address] Eosinophils/100 WBC (Bld) 1.5 % Normal 0.0-6.0 [facility] Comment on above: Performed By: #### 1 1253-2 #### NORMA ADHIKARI L ([id number]) [facility] ([facility]) [id number] [place] [address]2390 Erythrocyte distribution width (RBC) [Ratio] 13.2 % Normal 11.5-14.5 [facility] Comment on above: Performed By: #### 1 1253-2 #### NORMA Cherry ([id number]) [facility] ([facility]) [id number] [place] [address]30 Hematocrit (Bld) [Volume fraction] 34.7 % Low 41.0-52.0 [facility] Comment on above: Performed By: #### 1 1253-2 #### NORMA Cherry ([id number]) [facility] ([facility]) [address] [place] [address] 45335 Hemoglobin (Bld) [Mass/Vol] 11.5 g/dL Low 13.5-17.5 [facility] Comment on above: Performed By: #### 1 1253-2 #### NORMA Cherry ([id number]) [facility] ([facility]) [address] [place] [address] 95998 Immature granulocytes (Bld) [#/Vol] 0.01 x10*3/uL Normal 0.00-0.70 [facility] Comment on above: Performed By: #### 1 1253-2 #### NORMA Cherry ([id number]) [facility] ([facility]) [address] [place] [address] 07706 Immature granulocytes/100 WBC (Bld) 0.2 % Normal 0.0-0.9 [facility] Comment on above: Result Comment: Nicole ture Granulocyte Count (IG) includes promyelocytes, myelocytes and metamyelocytes but does not include bands. Percent differential counts (%) should be interpreted in the context of the absolute cell counts (cells/UL). Performed By: #### 1 1253-2 #### NORMA Cherry ([id number]) [facility] ([facility]) [id number] [place] [address]504 Lymphocytes (Bld) [#/Vol] 1.62 x10*3/uL Normal 1.20-4.80 [facility] Comment on above: Performed By: #### 1 1253-2 #### NORMA Cherry ([id number]) [facility] ([facility]) [address] [place] [address] 78227 Lymphocytes/100 WBC (Bld) 31.3 % Normal 13.0-44.0 [facility] Comment on above: Performed By: #### 1 1253-2 #### NORMA Cherry ([id number]) [facility] ([facility]) [address] [place] [address] 55918 MCH (RBC) [Entitic mass] 31.2 pg Normal 26.0-34.0 [facility] Comment on above: Performed By: #### 1 1253-2 #### NORMA Cherry ([id number]) [facility] ([facility]) [address] [place] [address]72 MCHC (RBC) [Mass/Vol] 33.1 g/dL Normal 32.0-36.0 [facility] Comment on above: Performed By: #### 1 1253-2 #### NORMA Cehrry ([id number]) [facility] ([facility]) [address] [place] [address] 98590 MCV (RBC) [Entitic vol] 94 fL Normal 80-100 [facility] Comment on above: Performed By: #### 1 1253-2 #### NORMA Cherry ([id number]) [facility] ([facility]) [address] [place] [address] 15236 Monocytes (Bld) [#/Vol] 0.38 x10*3/uL Normal 0.10-1.00 [facility] Comment on above: Performed By: #### 1 1253-2 #### NORMA Cherry ([id number]) [facility] ([facility]) [address] [place] [address] 81012 Monocytes/100 WBC (Bld) 7.3 % Normal 2.0-10.0 [facility] Comment on above: Performed By: #### 1 1253-2 #### NORMA Cherry ([id number]) [facility] ([facility]) [address] [place] [address] Neutrophils (Bld) [#/Vol] 3.05 x10*3/uL Normal 1.20-7.70 [facility] Comment on above: Result Comment: Perc ent differential counts (%) should be interpreted in the context of the absolute cell counts (cells/uL). Performed By: #### 1 1253-2 #### NORMA Cherry ([id number]) [facility] ([facility]) [address] [place] [address] Neutrophils/100 WBC (Bld) 58.9 % Normal 40.0-80.0 [facility] Comment on above: Performed By: #### 1 1253-2 #### NORMA Cherry ([id number]) [facility] ([facility]) [id number] [place] [address] 90123 Nucleated RBC/100 WBC (Bld) [Ratio] 0.0 /100 WBCs Normal 0.0-0.0 [facility] Comment on above: Performed By: #### 1 1253-2 #### NORMA Cherry ([id number]) [facility] ([facility]) [address] [place] [address] Platelets (Bld) [#/Vol] 109 x10*3/uL Low 150-450 [facility] Comment on above: Performed By: #### 1 1253-2 #### NORMA Cherry ([id number]) [facility] ([facility]) [id number] [place] [address] 44687 RBC (Bld) [#/Vol] 3.69 x10*6/uL Low 4.50-5.90 [facility] Comment on above: Performed By: #### 1 1253-2 #### NORMA ADHIKARI L ([id number]) [facility] ([facility]) [id number] [place] [address] 98512 WBC (Bld) [#/Vol] 5.2 x10*3/uL Normal 4.4-11.3 [facility] Comment on above: Performed By: #### 1 1253-2 #### NORMA Cherry ([id number]) [facility] ([facility]) [address] [place], [place] [id number] CMV DNA LÁZARO+probe Qn (P)on 0 01-18-2024 CMV DNA RESULT Not detected Normal Not Detected [facility] Comment on above: Order Comment: NOTE: Result was obtained using a chemiluminescent microparticle immunoassay (CMIA) on the [employer] i system. Optimal therapeutic ranges for immunosuppressant drugs depend upon an individual patient's current clinical state, type of organ transplant, time post-transplant, co-administration of other immunosuppressants, and other clinical factors. The results of this test should be correlated with additional clinical and laboratory data before changes in treatment regimens are made. Performed By: #### 1 1253-2 #### NORMA Cherry ([id number]) [facility] ([facility]) [address] [place] [address] 79638 CYTOMEGALOVIRUS DNA, PCR LOG IU/ML Normal [facility] Comment on above: Order Comment: NOTE: Result was obtained using a chemiluminescent microparticle immunoassay (CMIA) on the [employer] i system. Optimal therapeutic ranges for immunosuppressant drugs depend upon an individual patient's current clinical state, type of organ transplant, time post-transplant, co-administration of other immunosuppressants, and other clinical factors. The results of this test should be correlated with additional clinical and laboratory data before changes in treatment regimens are made. Result Comment: Not calculated Performed By: #### 1 1253-2 #### NORMA Cherry ([id number]) [facility] ([facility]) [address] [place] [address] 95216 Comprehensive metabolic 2000 panelon 01-18-2024 Albumin BCP dye [Mass/Vol] 2.8 g/dL Low 3.4 - 5.0 g/dL [facility] ALP [Catalytic activity/Vol] 233 U/L High 33 - 120 U/L [facility] ALT With P-5'-P [Catalytic activity/Vol] 78 U/L High 10 - 52 U/L [facility] Comment on above: Patients treated wit h Sulfasalazine may generate falsely decreased results for ALT. Anion gap [Moles/Vol] 9 mmol/L Low 10 - 2 0 mmol/L [facility] AST With P-5'-P [Catalytic activity/Vol] 90 U/L High 9 - 39 U/L [facility] Bilirubin [Mass/Vol] 2.0 mg/dL High 0.0 - 1 .2 mg/dL [facility] Calcium [Mass/Vol] 8.8 mg/dL 8.6 - 10. 6 mg/dL [facility] Chloride [Moles/Vol] 102 mmol/L 98 - 10 7 mmol/L [facility] CO2 [Moles/Vol] 32 mmol/L 21 - 32 mmol/L [facility] Creatinine [Mass/Vol] 0.91 mg/dL 0.50 - 1.30 mg/dL [facility] eGFR - PINF [facility] Comment on above: Calculations of zander mated GFR are performed using the 2020 CKD-EPI Study Refit equation without the race variable for the IDMS-Traceable creatinine methods. https://jasn.asnjournals.org/content/early//ASN.124621 9054 Glucose [Mass/Vol] 179 mg/dL High 74 - 99 mg/dL [facility] Potassium [Moles/Vol] 3.6 mmol/L 3.5 - 5.3 mmol/L [facility] Protein [Mass/Vol] 6.5 g/dL 6.4 - 8.2 g/dL [facility] Sodium [Moles/Vol] 139 mmol/L 136 - 145 mmol/L [facility] Urea nitrogen [Mass/Vol] 19 mg/dL 6 - 23 mg/dL [facility] Albumin BCP dye [Mass/Vol] 2.8 g/dL Low 3.4-5.0 [facility] Comment on above: Performed By: #### 1 1253-2 #### NORMA Cherry ([id number]) [facility] ([facility]) [address] [place] [address] ALP [Catalytic activity/Vol] 233 U/L High 33-120 [facility] Comment on above: Performed By: #### 1 1253-2 #### NORMA Cherry ([id number]) [facility] ([facility]) [address] [place] [address] ALT With P-5'-P [Catalytic activity/Vol] 78 U/L High 10-52 [facility] Comment on above: Result Comment: Batool ents treated with Sulfasalazine may generate falsely decreased results for ALT. Performed By: #### 1 1253-2 #### NORMA ADHIKARI L ([id number]) [facility] ([facility]) [address] [place] [address] Anion gap [Moles/Vol] 9 mmol/L Low 10-20 [facility] Comment on above: Performed By: #### 1 1253-2 #### NORMA Cherry ([id number]) [facility] ([facility]) [address] [place] [address] AST With P-5'-P [Catalytic activity/Vol] 90 U/L High 9-39 [facility] Comment on above: Performed By: #### 1 1253-2 #### NORMA ADHIKARI L ([id number]) [facility] ([facility]) [address] [place] [address] Bilirubin [Mass/Vol] 2.0 mg/dL High 0.0-1.2 [facility] Comment on above: Performed By: #### 1 1253-2 #### NORMA Cherry ([id number]) [facility] ([facility]) [address] [place] [address] Calcium [Mass/Vol] 8.8 mg/dL Normal 8.6-10.6 [facility] Comment on above: Performed By: #### 1 1253-2 #### NORMA ADHIKARI L ([id number]) [facility] ([facility]) [address] [place] [address] Chloride [Moles/Vol] 102 mmol/L Normal 98-107 [facility] Comment on above: Performed By: #### 1 1253-2 #### NORMA ADHIKARI L ([id number]) [facility] ([facility]) [address] [place] [address] CO2 [Moles/Vol] 32 mmol/L Normal 21-32 [facility] Comment on above: Performed By: #### 1 1253-2 #### NORMA Cherry ([id number]) [facility] ([facility]) [address] [place] [address] Creatinine [Mass/Vol] 0.91 mg/dL Normal 0.50-1.30 [facility] Comment on above: Performed By: #### 1 1253-2 #### NORMA Cherry ([id number]) [facility] ([facility]) [address] [place] [address] GFR/1.73 sq M.predicted MDRD (S/P/Bld) [Vol rate/Area] mL/min/{1.73_m2} Normal >60 [facility] Comment on above: Result Comment: Calc ulations of estimated GFR are performed using the 2020 CKD-EPI Study Refit equation without the race variable for the IDMS-Traceable creatinine methods. https://jasn.asnjournals.org/content//ASN.884706 7868 Performed By: #### 1 1253-2 #### NORMA Cherry ([id number]) [facility] ([facility]) [address] [place] [address] Glucose [Mass/Vol] 179 mg/dL High 74-99 [facility] Comment on above: Performed By: #### 1 1253-2 #### NORMA Cherry ([id number]) [facility] ([facility]) [address] [place] [address] Potassium [Moles/Vol] 3.6 mmol/L Normal 3.5-5.3 [facility] Comment on above: Performed By: #### 1 1253-2 #### NORMA Cherry ([id number]) [facility] ([facility]) [address] [place] [address] Protein [Mass/Vol] 6.5 g/dL Normal 6.4-8.2 [facility] Comment on above: Performed By: #### 1 1253-2 #### NORMA Cherry ([id number]) [facility] ([facility]) [address] [place] [address] Sodium [Moles/Vol] 139 mmol/L Normal 136-145 [facility] Comment on above: Performed By: #### 1 1253-2 #### NORMA Cherry ([id number]) [facility] ([facility]) [address] [place] [address]28 Urea nitrogen [Mass/Vol] 19 mg/dL Normal 6-23 [facility] Comment on above: Performed By: #### 1 1253-2 #### NORMA Cherry ([id number]) [facility] ([facility]) [address] [place] [address] 637[address] EBV DNA LÁZARO+probe Qnon 01-17 EBV DNA LÁZARO+probe (Unsp spec) [Log #/Vol] Normal [facility] Comment on above: Order Comment: NOTE: Result was obtained using a chemiluminescent microparticle immunoassay (CMIA) on the [employer] i system. Optimal therapeutic ranges for immunosuppressant drugs depend upon an individual patient's current clinical state, type of organ transplant, time post-transplant, co-administration of other immunosuppressants, and other clinical factors. The results of this test should be correlated with additional clinical and laboratory data before changes in treatment regimens are made. Result Comment: Not calculated Performed By: #### 1 1253-2 #### NORMA Cherry ([id number]) [facility] ([facility]) [address] [place] [address]284 Laboratory comment Haroon (Report) Not detected Normal Not Detected [facility] Comment on above: Order Comment: NOTE: Result was obtained using a chemiluminescent microparticle immunoassay (CMIA) on the [employer] i system. Optimal therapeutic ranges for immunosuppressant drugs depend upon an individual patient's current clinical state, type of organ transplant, time post-transplant, co-administration of other immunosuppressants, and other clinical factors. The results of this test should be correlated with additional clinical and laboratory data before changes in treatment regimens are made. Performed By: #### 1 1253-2 #### NORMA Cherry ([id number]) [facility] ([facility]) [address] [place], [place] [id number] Magnesiumon 01-18-2024 Magnesium [Mass/Vol] 1.49 mg/dL Low 1.60 - 2.40 mg/dL [facility] Magnesium [Mass/Vol] 1.49 mg/dL Low 1.60-2.40 [facility] Comment on above: Performed By: #### 1 1253-2 #### NORMA Cherry ([id number]) [facility] ([facility]) [address] [place], [place] [phone] No Panel Informationon 01-17 Interpretation and review of laboratory results Abnormal [facility] PT and aPTT panel Coag (PPP) on 01-18-2024 aPTT Coag (PPP) [Time] 30 s [facility] INR Coag (PPP) [Relative time] 1.2 {INR} High 0.9 - 1.1 [facility] Interpretation and review of laboratory results Abnormal [facility] PT Coag (PPP) [Time] 13.7 s High [facility] The APTT is no longe r used for monitoring Unfractionated Heparin Therapy. For monitoring Heparin Therapy, use the Heparin Assay. [facility] aPTT Coag (PPP) [Time] 30 s Normal 27-38 [facility] Comment on above: Order Comment: NOTE: Result was obtained using a chemiluminescent microparticle immunoassay (CMIA) on the [employer] i system. Optimal therapeutic ranges for immunosuppressant drugs depend upon an individual patient's current clinical state, type of organ transplant, time post-transplant, co-administration of other immunosuppressants, and other clinical factors. The results of this test should be correlated with additional clinical and laboratory data before changes in treatment regimens are made. Performed By: #### 1 1253-2 #### NORMA Cherry ([id number]) [facility] ([facility]) [address] [place] [address] 18527 INR Coag (PPP) [Relative time] 1.2 High 0.9-1.1 [facility] Comment on above: Order Comment: NOTE: Result was obtained using a chemiluminescent microparticle immunoassay (CMIA) on the [employer] i system. Optimal therapeutic ranges for immunosuppressant drugs depend upon an individual patient's current clinical state, type of organ transplant, time post-transplant, co-administration of other immunosuppressants, and other clinical factors. The results of this test should be correlated with additional clinical and laboratory data before changes in treatment regimens are made. Performed By: #### 1 1253-2 #### NORMA Cherry ([id number]) [facility] ([facility]) [address] [place] [address] 06104 PT Coag (PPP) [Time] 13.7 s High 9.8-12.8 [facility] Comment on above: Order Comment: NOTE: Result was obtained using a chemiluminescent microparticle immunoassay (CMIA) on the [employer] i system. Optimal therapeutic ranges for immunosuppressant drugs depend upon an individual patient's current clinical state, type of organ transplant, time post-transplant, co-administration of other immunosuppressants, and other clinical factors. The results of this test should be correlated with additional clinical and laboratory data before changes in treatment regimens are made. Performed By: #### 1 1253-2 #### NORMA Cherry ([id number]) [facility] ([facility]) [address] [place] [address] 69064 Phosphateon 01-18-2024 Phosphate [Mass/Vol] 4.2 mg/dL Normal 2.5-4.9 [facility] Comment on above: Result Comment: The performance characteristics of phosphorus testing in heparinized plasma have been validated by the individual laboratory site where testing is performed. Testing on heparinized plasma is not approved by the FDA; however, such approval is not necessary. Performed By: #### 1 1253-2 #### NORMA Cherry ([id number]) [facility] ([facility]) [address] [place] [address] 80758 Phosphate [Mass/Vol]on 01-17 Interpretation and review of laboratory results [facility] Phosphoruson 01-18-2024 Phosphate [Mass/Vol] 4.2 mg/dL 2.5 - 4 .9 mg/dL [facility] Comment on above: The performance aditi acteristics of phosphorus testing in heparinized plasma have been validated by the individual laboratory site where testing is performed. Testing on heparinized plasma is not approved by the FDA; however, such approval is not necessary. Urinalysis complete panel (U )on 01-18-2024 Appearance (U) Clear Normal Clear [facility] Comment on above: Performed By: #### 1 1253-2 #### NORMA ADHIKARI L ([id number]) [facility] ([facility]) [address] [place] [address] 07202 Bilirubin (U) [Mass/Vol] Negative Normal NEGATIVE [facility] Comment on above: Performed By: #### 1 1253-2 #### NORMA ADHIKARI L ([id number]) [facility] ([facility]) [address] [place] [address] 64985 Color (U) Yellow Normal Light-Yellow , Yellow, Dark-Yellow [facility] Comment on above: Performed By: #### 1 1253-2 #### NORMA ADHIKARI L ([id number]) [facility] ([facility]) [address] [place] [address] 29936 Glucose Auto test strip (U) [Mass/Vol] Normal Normal Normal [facility] Comment on above: Performed By: #### 1 1253-2 #### NORMA VILLAMOOLVINER L ([id number]) [facility] ([facility]) [address] [place] [address] 01085 Ketones (U) [Mass/Vol] Negative Normal NEGATIVE [facility] Comment on above: Performed By: #### 1 1253-2 #### NORMA VILLAMOKRISTAL L ([id number]) [facility] ([facility]) [address] [place] [address] 23256 Leukocyte esterase Auto test strip Ql (U) 25 Cash/???L Abnormal NEGATIVE [facility] Comment on above: Performed By: #### 1 1253-2 #### NORMA VILLAMOTZER L ([id number]) [facility] ([facility]) [address] [place] [address] 49193 Nitrite Auto test strip Ql (U) Negative Normal NEGATIVE [facility] Comment on above: Performed By: #### 1 1253-2 #### NORMA Cherry ([id number]) [facility] ([facility]) [address] [place] [address] pH (U) 6.0 [pH] Normal 5.0, 5.5, 6.0, 6.5, 7.0, 7.5, 8.0 [facility] Comment on above: Performed By: #### 1 1253-2 #### NORMA Cherry ([id number]) [facility] ([facility]) [address] [place] [address] Protein (U) [Mass/Vol] Negative Normal NEGATIVE, 10 (TRACE), 20 (TRACE) [facility] Comment on above: Performed By: #### 1 1253-2 #### NORMA Cherry ([id number]) [facility] ([facility]) [address] [place], [place] [address] RBC (U) [#/Vol] 0.03 (TRACE) Abnormal NEGATIVE [facility] Comment on above: Performed By: #### 1 1253-2 #### NORMA Cherry ([id number]) [facility] ([facility]) [address] [place], [place] [address] Specific gravity (U) [Rel density] 1.011 Normal 1.005-1.035 [facility] Comment on above: Performed By: #### 1 1253-2 #### NORMA Cherry ([id number]) [facility] ([facility]) [address] [place] [address] 62906 Urobilinogen (U) [Mass/Vol] 3 (1+) Abnormal Normal [facility] Comment on above: Result Comment: Some pigments and medications may cause a false positive urobilinogen. Performed By: #### 1 1253-2 #### NORMA Cherry ([id number]) [facility] ([facility]) [address] [place] [address] 20527 Urinalysis microscopic panel Auto Ql (U)on 01-18-2024 Calcium oxalate crystals Computer assisted (U) [#/Area] 1+ /HPF Normal NONE, 1+ [facility] Comment on above: Performed By: #### 1 1253-2 #### NORMA Cherry ([id number]) [facility] ([facility]) [address] [place] [address] Mucus Auto (Urine sed) [#/Area] FEW Normal Reference range not established. [facility] Comment on above: Performed By: #### 1 1253-2 #### NORMA VILLAMOTZER L ([id number]) [facility] ([facility]) [address] [place] [address] RBC Auto (Urine sed) [#/Area] 3-5 Normal NONE, 1-2, 3-5 [facility] Comment on above: Performed By: #### 1 1253-2 #### NORMA RANGELTZER Dilip ([id number]) [facility] ([facility]) [address] [place] [address] WBC Auto (Urine sed) [#/Area] 6-10 Abnormal 1-5, NONE [facility] Comment on above: Performed By: #### 1 1253-2 #### NORMA Cherry ([id number]) [facility] ([facility]) [id number] [place] [address]68 Surgical pathology studyon 0 01-17-2024 Surgical pathology study Pathology report.total SEE COMMENT Surgical Pathology Case: [id number] Authorizing Provider: Татьяна Eid MD Collected: 01/17/2024 1000 Ordering Location: [facility] Received: 01/17/2024 [facility] Pathologist: Kenn Diaz MD Specimen: [...] is submitted in toto in 1 cassette. [facility] AP ASR DISCLAIMER One or more of the reagents used to perform assays on this specimen MAY have contained components considered to be analyte specific reagents (ASR's). ASR's have not been cleared or approved by the U.S. Food and Drug Administration. These assays were developed and their performance characteristics determined by the Department of Pathology at [facility]. The FDA does not require this test to go through premarket FDA review. This test is used for clinical purposes. It should not be regarded as investigational or for research. This laboratory is certified under the Clinical Laboratory Improvement Amendments (CLIA) as qualified to perform high complexity clinical laboratory testing. The assays were performed with appropriate positive and negative controls which stained appropriately. [facility] US GUIDED NEEDLE LIVER BIOPS Yon 01-17-2024 US GUIDED NEEDLE LIVER BIOPSY Interpreted By: Татьяна Eid and Meyers Emily STUDY: US GUIDED NEEDLE LIVER BIOPSY; 01/17/2024 9:59 am INDICATION: Signs/Symptoms:s/p liver transplant, elevated LFT's, ultrasound changes. previous biopsy not enough tissue.. COMPARISON: Liver ultrasound 01/09/2024 ACCESSION NUMBER(S): [id number] ORDERING CLINICIAN: SHARAN AYOUB TECHNIQUE: INTERVENTIONALIST(S): Dr. [...] findings as stated. Performed and dictated at [facility]. MACRO: None. Signed by: Татьяна Eid 01/17/2024 5:06 PM Dictation workstation: [id number] [facility] US Guidance for biopsy of Ami mattson [...] findings as stated. Performed and dictated at [facility]. MACRO: None. Signed by: Татьяна Eid 01/17/2024 5:06 PM Dictation workstation: [id number] [facility] Interpreted By: Татьяна Eid and Meyers Emily STUDY: US GUIDED NEEDLE LIVER BIOPSY; 01/17/2024 9:59 am INDICATION: Signs/Symptoms:s/p liver transplant, elevated LFT's, ultrasound changes. previous biopsy not enough tissue.. COMPARISON: Liver ultrasound 01/09/2024 ACCESSION NUMBER(S): [id number] ORDERING CLINICIAN: SHARAN AYOUB TECHNIQUE: INTERVENTIONALIST(S): Dr. [...] tissue.. COMPARISON: Liver ultrasound 01/09/2024 ACCESSION NUMBER(S): [id number] ORDERING CLINICIAN: SHARAN AYOUB TECHNIQUE: INTERVENTIONALIST(S): Dr. [...] findings as stated. Performed and dictated at [facility]. MACRO: None. Signed by: Татьяна Eid 01/17/2024 5:06 PM Dictation workstation: [id number] [facility] Work Phone: Radiology Study observation (narrative) [facility] Work Phone: US Guidance for biopsy of Li verOrdered By: Татьяна Eid on 01-17-2024 [facility] Work Phone: No Panel Informationon 01-08 Doppler [...] Hugo Darnell 01/09/2024 2:11 PM Dictation workstation: [id number] [facility] Interpreted By: Hugo Garcia, STUDY: US LIVER WITH DOPPLER 01/09/2024 12:23 pm INDICATION: 28 y/o M with Signs/Symptoms:s/p liver transplant, elevated LFT's, right side pain. COMPARISON: Previous exam from 01/26/2023. ACCESSION NUMBER(S): [id number] ORDERING CLINICIAN: SHARAN AYOUB TECHNIQUE: Ultrasound of [...] or splenorenal shunt identified. [facility] Hugo Darnell MD - 01/09/2024 Interpreted By: Hugo Darnell, STUDY: US LIVER WITH DOPPLER 01/09/2024 12:23 pm INDICATION: 28 y/o M with Signs/Symptoms:s/p liver transplant, elevated LFT's, right side pain. COMPARISON: Previous exam from 01/26/2023. ACCESSION NUMBER(S): [id number] ORDERING CLINICIAN: SHARAN AYOUB TECHNIQUE: Ultrasound of [...] Hugo Darnell 01/09/2024 2:11 PM Dictation workstation: [id number] [facility] Work Phone: Radiology Study observation (narrative) [facility] Work Phone: No Panel InformationOrdered By: Hugo Darnell on 01-09-2024 [facility] Work Phone: US LIVER WITH DOPPLERon US LIVER WITH DOPPLER Interpreted By: Hugo Mario, STUDY: US LIVER WITH DOPPLER 01/09/2024 12:23 pm INDICATION: 28 y/o M with Signs/Symptoms:s/p liver transplant, elevated LFT's, right side pain. COMPARISON: Previous exam from 01/26/2023. ACCESSION NUMBER(S): [id number] ORDERING CLINICIAN: SHARAN AYOUB TECHNIQUE: Ultrasound of [...] Hugo Darnell 01/09/2024 2:11 PM Dictation workstation: [id number] [facility] Alanine aminotransferase [En zymatic activity/volume] in Serum or PlasmaOrdered By: Sharan Ayoub on 01-04-2024 ALT [Catalytic activity/Vol] 81 U/L High 7-52 [facility] Comment on above: Performed By: #### T ACROLIMUS., CMP, CBC #### [facility] [address] [place] [address] [place] Albumin [Mass/volume] in Ser um or Plasma by Bromocresol green (BCG) dye binding methoOrdered By: Sharan Ayoub on 01-04-2024 Albumin BCG dye [Mass/Vol] 3.5 g/dL 3.5-5.7 [facility] Alkaline phosphatase [Enzyma tic activity/volume] in Serum or PlasmaOrdered By: Sharan Ayoub on 01-04-2024 ALP [Catalytic activity/Vol] 242 U/L High 34-104 [facility] Comment on above: Performed By: #### T ACROLIMUS., CMP, CBC #### [facility] [address] [place] [address] [place] Anisocytosis [Presence] in B lood by Light microscopyOrdered By: Sharan Ayoub on 01-04-2024 Anisocytosis Ql (Bld) Slight Normal [facility] Comment on above: Performed By: #### T ACROLIMUS., CMP, CBC #### [facility] [address] [place] [id number] [place] Aspartate aminotransferase [ Enzymatic activity/volume] in Serum or PlasmaOrdered By: Sharan Ayoub on 01-04-2024 AST [Catalytic activity/Vol] 93 U/L High 13-39 [facility] Comment on above: Performed By: #### T ACROLIMUS., CMP, CBC #### [facility] [address] [place] [id number] [place] Automated basophil %Ordered By: Sharan Ayoub on 01-04-2024 Basophils/100 WBC (Bld) 0.8 % Normal . [facility] Comment on above: Performed By: #### T ACROLIMUS., CMP, CBC #### [address] Automated basophil countOrde red By: Sharan Ayoub on 01-04-2024 Basophils (Bld) [#/Vol] 0.0 10*3/uL Normal 0.0-0.2 [facility] Comment on above: Performed By: #### T ACROLIMUS., CMP, CBC #### [address] Automated blood monocyte cou ntOrdered By: Sharan Ayoub on 01-04-2024 Monocytes (Bld) [#/Vol] 0.4 10*3/uL Normal 0.0-0.8 [facility] Comment on above: Performed By: #### T ACROLIMUS., CMP, CBC #### [address] Automated eosinophil %Ordere d By: Sharan Ayoub on 01-04-2024 Eosinophils/100 WBC (Bld) 1.1 % Normal . [facility] Comment on above: Performed By: #### T ACROLIMUS., CMP, CBC #### [address] Automated eosinophil countOr dered By: Sharan Ayoub on 01-04-2024 Eosinophils (Bld) [#/Vol] 0.1 10*3/uL Normal 0.0-0.45 [facility] Comment on above: Performed By: #### T ACROLIMUS., CMP, CBC #### [address] Automated monocyte %Ordered By: Sharan Ayoub on 01-04-2024 Monocytes/100 WBC (Bld) 8.0 % Normal . [facility] Comment on above: Performed By: #### T ACROLIMUS., CMP, CBC #### [address] [address] [place] Automated neutrophil %Ordere d By: Sharan Ayoub on 01-04-2024 Neutrophils/100 WBC (Bld) 62.8 % Normal . [facility] Comment on above: Performed By: #### T ACROLIMUS., CMP, CBC #### [facility] [address] Bilirubin,Directon Bilirubin.indirect [Mass/Vol] 1.40 mg/dL High 0.03-0.18 [facility] Comment on above: Result Comment: PERF ORMED BY: [address] [place] [address] PATHOLOGIST MANAGER WINTER MISAEL FOX M.D. Performed By: #### T ACROLIMUS., CMP, CBC #### [facility] [address] [place] [address] Bilirubin.direct [Mass/volum e] in Serum or PlasmaOrdered By: Sharan Ayoub on 01-04-2024 Bilirubin.direct [Mass/Vol] 1.40 mg/dL 0.03-0.18 [facility] Bilirubin.total [Mass/volume ] in Serum or PlasmaOrdered By: Sharan Ayoub on 01-04-2024 Bilirubin [Mass/Vol] 2.7 mg/dL High 0.3-1.0 [facility] Comment on above: Samples from [...] By: #### T ACROLIMUS., CMP, CBC #### [facility] [address] CBC W Auto Differential pane l (Bld)on 01-04-2024 Basophils (Bld) [#/Vol] 0.03 x10*3/uL Normal 0.00-0.10 [facility] Comment on above: Performed By: #### 5 7021-8 #### ZOLTAN TURNER ([id number]) [facility]) [address] [place] [address] 45683 Basophils/100 WBC (Bld) 0.6 % Normal 0.0-2.0 [facility] Comment on above: Performed By: #### 5 7021-8 #### ZOLTAN TURNER ([id number]) [facility]) [address] [place] [address] 06248 Eosinophils (Bld) [#/Vol] 0.05 x10*3/uL Normal 0.00-0.70 [facility] Comment on above: Performed By: #### 5 7021-8 #### ZOLTAN TURNER ([id number]) [facility]) [address] [place] [address] 72731 Eosinophils/100 WBC (Bld) 1.0 % Normal 0.0-6.0 [facility] Comment on above: Performed By: #### 5 7021-8 #### ZOLTAN TURNER ([id number]) [facility]) [address] [place] [address] 97987 Erythrocyte distribution width (RBC) [Ratio] 13.6 % Normal 11.5-14.5 [facility] Comment on above: Performed By: #### 5 7021-8 #### ZOLTAN TURNER ([id number]) [facility]) [address] [place] [address] 42254 Hematocrit (Bld) [Volume fraction] 37.4 % Low 41.0-52.0 [facility] Comment on above: Performed By: #### 5 7021-8 #### ZOLTAN TURNER ([id number]) [facility]) [address] [place] [address] 06405 Hemoglobin (Bld) [Mass/Vol] 12.3 g/dL Low 13.5-17.5 [facility] Comment on above: Performed By: #### 5 7021-8 #### ZOLTAN TURNER ([id number]) [facility] [address] [place] [address] 78940 Immature granulocytes (Bld) [#/Vol] 0.01 x10*3/uL Normal 0.00-0.70 [facility] Comment on above: Performed By: #### 5 7021-8 #### ZOLTAN TURNER ([id number]) [facility]) [address] [place] [address] 85345 Immature granulocytes/100 WBC (Bld) 0.2 % Normal 0.0-0.9 [facility] Comment on above: Result Comment: Nicole ture Granulocyte Count (IG) includes promyelocytes, myelocytes and metamyelocytes but does not include bands. Percent differential counts (%) should be interpreted in the context of the absolute cell counts (cells/UL). Performed By: #### 5 7021-8 #### ZOLTAN TURNER ([id number]) [facility]) [address] [place] [address] 82229 Lymphocytes (Bld) [#/Vol] 1.33 x10*3/uL Normal 1.20-4.80 [facility] Comment on above: Performed By: #### 5 7021-8 #### ZOLTAN TURNER ([id number]) [facility]) [address] [place] [address] 05979 Lymphocytes/100 WBC (Bld) 27.1 % Normal 13.0-44.0 [facility] Comment on above: Performed By: #### 5 7021-8 #### ZOLTAN TURNER ([id number]) [facility]) [address] [place] [address] 68710 MCH (RBC) [Entitic mass] 31.5 pg Normal 26.0-34.0 [facility] Comment on above: Performed By: #### 5 7021-8 #### ZOLTAN TURNER ([id number]) [facility] [address] [place] [address] 32420 MCHC (RBC) [Mass/Vol] 32.9 g/dL Normal 32.0-36.0 [facility] Comment on above: Performed By: #### 5 7021-8 #### ZOLTAN TURNER ([id number]) [facility] [address] [place] [address] 31612 MCV (RBC) [Entitic vol] 96 fL Normal 80-100 [facility] Comment on above: Performed By: #### 5 7021-8 #### ZOLTAN TURNER ([id number]) [facility]) [address] [place] [address] 33702 Monocytes (Bld) [#/Vol] 0.42 x10*3/uL Normal 0.10-1.00 [facility] Comment on above: Performed By: #### 5 7021-8 #### ZOLTAN TURNER ([id number]) [facility] [address] [place] [address] 55501 Monocytes/100 WBC (Bld) 8.6 % Normal 2.0-10.0 [facility] Comment on above: Performed By: #### 5 7021-8 #### ZOLTAN TURNER ([id number]) [facility]) [address] [place] [address] 43553 Neutrophils (Bld) [#/Vol] 3.07 x10*3/uL Normal 1.20-7.70 [facility] Comment on above: Result Comment: Perc ent differential counts (%) should be interpreted in the context of the absolute cell counts (cells/uL). Performed By: #### 5 7021-8 #### ZOLTAN TURNER ([id number]) [facility]) [address] [place] [address] 81272 Neutrophils/100 WBC (Bld) 62.5 % Normal 40.0-80.0 [facility] Comment on above: Performed By: #### 5 7021-8 #### ZOLTAN TURNER ([id number]) [facility]) [address] [place] [address] 05437 Nucleated RBC/100 WBC (Bld) [Ratio] 0.0 /100 WBCs Normal 0.0-0.0 [facility] Comment on above: Performed By: #### 5 7021-8 #### ZOLTAN TURNER ([id number]) [facility]) [address] [place] [address] 42567 Platelets (Bld) [#/Vol] 116 x10*3/uL Low 150-450 [facility] Comment on above: Performed By: #### 5 7021-8 #### ZOLTAN TURNER ([id number]) [facility]) [address] [place] [address] 98717 RBC (Bld) [#/Vol] 3.91 x10*6/uL Low 4.50-5.90 [facility] Comment on above: Performed By: #### 5 7021-8 #### ZOLTAN TURNER ([id number]) [facility]) [address] [place] [address] 56819 WBC (Bld) [#/Vol] 4.9 x10*3/uL Normal 4.4-11.3 [facility] Comment on above: Performed By: #### 5 7021-8 #### ZOLTAN TURNER ([id number]) [facility] ([facility]) [address] [place] [id number] CMV DNA LÁZARO+probe Qn (P)on 0 01-04-2024 CMV DNA RESULT Not detected Normal Not Detected [facility] [place] Comment on above: Order Comment: Repor table [...] the Molecular Diagnostic Laboratory, Department of Pathology, [facility]. Performed By: #### 7 2493-0 #### NORMA Cherry ([id number]) [facility] ([facility]) [address] [place] [address] CYTOMEGALOVIRUS DNA, PCR LOG IU/ML Normal [facility] Comment on above: Order Comment: Repor table [...] the Molecular Diagnostic Laboratory, Department of Pathology, [facility]. Result Comment: Not calculated Performed By: #### 7 2493-0 #### NORMA Cherry ([id number]) [facility] ([facility]) [id number] [place] [address] CMV Transplanton 01-04-2024 CMV Transplant Sent to Ref Lab Normal [facility] Comment on above: Performed By: #### T ACROLIMUS., CMP, CBC #### [facility] [address] [place] [id number] [place] Calcium [Mass/volume] in Ser um or PlasmaOrdered By: Sharan Ayoub on 01-04-2024 Calcium [Mass/Vol] 8.9 mg/dL Normal 8.6-10.3 [facility] Comment on above: Performed By: #### T ACROLIMUS., CMP, CBC #### [facility] [address] [place] [address] [place] Carbon dioxide, total [Moles /volume] in Serum or PlasmaOrdered By: Sharan Ayoub on 01-04-2024 CO2 [Moles/Vol] 30.0 mmol/L Normal 21.0-31.0 [facility] Comment on above: Performed By: #### T ACROLIMUS., CMP, CBC #### [facility] [address] [place] [id number] [place] Chloride [Moles/volume] in S kasi or PlasmaOrdered By: Sharan Ayoub on 01-04-2024 Chloride [Moles/Vol] 103 mmol/L Normal 98-107 [facility] Comment on above: Performed By: #### T ACROLIMUS., CMP, CBC #### [facility] [address] [place] [id number] [place] Comprehensive Metabolic Pane sarah 01-04-2024 Albumin [Mass/Vol] 3.5 g/dL Normal 3.5-5.7 [facility] Comment on above: Performed By: #### T ACROLIMUS., CMP, CBC #### [facility] [address] [place] [id number] [place] GFR/1.73 sq M.predicted MDRD (S/P/Bld) [Vol rate/Area] mL/min/{1.73_m2} Normal [facility] Comment on above: Performed By: #### T ACROLIMUS., CMP, CBC #### [facility] [address] [place] [address] [place] Creatinine [Mass/volume] in Serum or PlasmaOrdered By: Sharan Ayoub on 01-04-2024 Creatinine [Mass/Vol] 0.91 mg/dL Normal 0.70-1.30 [facility] Comment on above: Performed By: #### T ACROLIMUS., CMP, CBC #### [facility] [address] [id number] [facility] EBV DNA LÁZARO+probe Qnon 01-03 EBV DNA LÁZARO+probe (Unsp spec) [Log #/Vol] Normal [facility] Comment on above: Order Comment: Repor table [...] the Molecular Diagnostic Laboratory, Department of Pathology, [facility]. Result Comment: Not calculated Performed By: #### 4 3730-1 #### NORMA Cherry ([id number]) [facility] ([facility]) [address] [place] [address] Laboratory comment Haroon (Report) Not detected Normal Not Detected [facility] Comment on above: Order Comment: Repor table [...] the Molecular Diagnostic Laboratory, Department of Pathology, [facility]. Performed By: #### 4 3730-1 #### NORMA Cherry ([id number]) [facility] ([facility]) [id number] [place] [address] EBV Transplanton 01-04-2024 EBV Transplant Sent to Ref Lab Normal [facility] Comment on above: Result Comment: PERF ORMED BY: [place] [address] PATHOLOGIST MANAGER WINTER MISAEL FOX M.D. Performed By: #### T ACROLIMUS., CMP, CBC #### [facility] [address] [place] [address] Erythrocyte distribution wid th [Ratio] by Automated countOrdered By: Sharan Ayoub on 01-04-2024 Erythrocyte distribution width (RBC) [Ratio] 14.3 % Normal 12.0-14.8 [facility] Comment on above: Performed By: #### T ACROLIMUS., CMP, CBC #### [facility] [address] [place] [address] Erythrocytes [#/volume] in B lood by Automated countOrdered By: Sharan Ayoub on 01-04-2024 RBC (Bld) [#/Vol] 3.98 10*6/uL Normal 3.90-5.60 [facility] Comment on above: Performed By: #### T ACROLIMUS., CMP, CBC #### [facility] [address] [place] [address] [place] Glucose [Mass/volume] in Ser um or PlasmaOrdered By: Sharan Ayoub on 01-04-2024 Glucose [Mass/Vol] 145 mg/dL High 70-100 [facility] Comment on above: ADA recommended refe rence rangeRandom Glucose Reference Range is dependent on time and content of last meal. Glucose of more than 200 mg/dL in a nonstressed, ambulatory subject supports the diagnosis of Diabetes Mellitus. Result Comment: [facility] Glucose Reference Range is dependent on time and content of last meal. Glucose of more than 200 mg/dL in a nonstressed, ambulatory subject supports the diagnosis of Diabetes Mellitus. ADA recommended reference range Performed By: #### T ACROLIMUS., CMP, CBC #### [facility] [address] Hematocrit [Volume Fraction] of Blood by Automated countOrdered By: Sharan Ayoub on 01-04-2024 Hematocrit (Bld) [Volume fraction] 37.1 % Low 38.8-50.0 [facility] Comment on above: Performed By: #### T ACROLIMUS., CMP, CBC #### [facility] [address] Hemoglobin [Mass/volume] in BloodOrdered By: Sharan Ayoub on 01-04-2024 Hemoglobin (Bld) [Mass/Vol] 12.5 g/dL Low 13.0-17.0 [facility] Comment on above: Performed By: #### T ACROLIMUS., CMP, CBC #### [facility] [address] INR in Platelet poor plasma by Coagulation assayOrdered By: Sharan Ayoub on 01-04-2024 INR Coag (PPP) [Relative time] 1.1 {INR} Normal [facility] Comment on above: INR Therapeutic Rang [...] heart valves: 3 - 4.5 PERFORMED BY: [place] [address] PATHOLOGIST MANAGER WINTER MISAEL FOX M.D. Performed By: #### T ACROLIMUS., CMP, CBC #### [address] Leukocytes [#/volume] correc roderick for nucleated erythrocytes in Blood by Automated counOrdered By: Sharan Ayoub on 01-04-2024 WBC corrected for nucl RBC Auto (Bld) [#/Vol] 4.8 10*3/uL 4.1-10.5 [facility] Leukocytes [#/volume] in Blo od by Automated countOrdered By: Sharan Ayoub on 01-04-2024 WBC (Bld) [#/Vol] 4.8 10*3/uL Normal 4.1-10.5 [facility] Comment on above: Performed By: #### T ACROLIMUS., CMP, CBC #### [place] [address] [place] Lymphocytes [#/volume] in Bl ood by Automated countOrdered By: Sharan Ayoub on 01-04-2024 Lymphocytes (Bld) [#/Vol] 1.3 10*3/uL Normal 1.00-4.8 [facility] Comment on above: Performed By: #### T ACROLIMUS., CMP, CBC #### [place] [address] [place] Lymphocytes/100 leukocytes i n Blood by Automated countOrdered By: Sharan Ayoub on 01-04-2024 Lymphocytes/100 WBC (Bld) 27.3 % Normal . [facility] Comment on above: Performed By: #### T ACROLIMUS., CMP, CBC #### [place] [address] [place] MCH [Entitic mass] by Automa roderick countOrdered By: Sharan Ayoub on 01-04-2024 MCH (RBC) [Entitic mass] 31.4 pg Normal 27.5-35.2 [facility] Comment on above: Performed By: #### T ACROLIMUS., CMP, CBC #### [facility] [address] MCHC Auto (RBC) [Mass/Vol]Or dered By: Sharan Ayoub on 01-04-2024 MCHC (RBC) [Mass/Vol] 33.6 g/dL 32.5-35.6 [facility] MCV [Entitic volume] by Auto mated countOrdered By: Sharan Ayoub on 01-04-2024 MCV (RBC) [Entitic vol] 93.4 fL Normal 83.5-101 [facility] Comment on above: Performed By: #### T ACROLIMUS., CMP, CBC #### [facility] [address] Neutrophils [#/volume] in Bl ood by Automated countOrdered By: Sharan Ayoub on 01-04-2024 Neutrophils (Bld) [#/Vol] 3.0 10*3/uL Normal 1.8-7.7 [facility] Comment on above: Performed By: #### T ACROLIMUS., CMP, CBC #### [facility] [address] No Panel InformationOrdered By: Sharan Ayoub on 01-04-2024 Cytomegalovirus Detection Sent to ref lab [facility] Estimated GFR (CKD-EPI) > 60.0 mL/Min [facility] Creatinine Clearance (Chem N/A [facility] Nucleated erythrocytes [Pres ence] in Blood by Automated countOrdered By: Sharan Ayoub on 01-04-2024 Nucleated RBC Auto Ql (Bld) 0.1 /100{WBC} 0-0.5 [facility] Platelet adequacy [Presence] in Blood by Light microscopyOrdered By: Sharan Ayoub on 01-04-2024 Platelets LM Ql (Bld) Decreased Normal [facility] Platelet mean volume [Entiti c volume] in Blood by Automated countOrdered By: Sharan Ayoub on 01-04-2024 Platelet mean volume (Bld) [Entitic vol] 11.2 fL High 6.6-10.1 [facility] Comment on above: Performed By: #### T ACROLIMUS., CMP, CBC #### [facility] [address] [place] [address] Platelet morphology finding [Identifier] in BloodOrdered By: Sharan Ayoub on 01-04-2024 Platelet morphology finding Nom (Bld) N/A [facility] Platelets Large [Presence] i n Blood by Light microscopyOrdered By: Sharan Ayoub on 01-04-2024 Platelets Large LM Ql (Bld) Slight [facility] Platelets [#/volume] in Bloo d by Automated countOrdered By: Sharan Ayoub on 01-04-2024 Platelets (Bld) [#/Vol] 116 10*3/uL Low 150-450 [facility] Comment on above: Performed By: #### T ACROLIMUS., CMP, CBC #### [facility] [address] [place] [address] Polychromasia [Presence] in Blood by Light microscopyOrdered By: Sharan Ayoub on 01-04-2024 Polychromasia LM Ql (Bld) Slight [facility] Potassium [Moles/volume] in Serum or PlasmaOrdered By: Sharan Ayoub on 01-04-2024 Potassium [Moles/Vol] 3.7 mmol/L Normal 3.5-5.1 [facility] Comment on above: Performed By: #### T ACROLIMUS., CMP, CBC #### [facility] [address] [place] [address] Protein [Mass/volume] in Ser um or PlasmaOrdered By: Sharan Ayoub on 01-04-2024 Protein [Mass/Vol] 6.9 g/dL Normal 6.4-8.9 [facility] Comment on above: Performed By: #### T ACROLIMUS., CMP, CBC #### [facility] [address] [place] [address] Prothrombin time (PT)Ordered By: Sharan Ayoub on 01-04-2024 PT Coag (PPP) [Time] 13.2 s High 9.0-12.9 [facility] Comment on above: A hematocrit value g reater than 55% may lead to inaccurate results in coagulation testing. Patients having hematocrit values >55% require a special collection tube for coagulation studies. Please contact the laboratory at [phone] for redraw instructions. Order Comment: List the anticoagulant: ASPIRIN Result Comment: A he matocrit value greater than 55% may lead to inaccurate results in coagulation testing. Patients having hematocrit values >55% require a special collection tube for coagulation studies. Please contact the laboratory at [phone] for redraw instructions. Performed By: #### T ACROLIMUS., CMP, CBC #### [address] RBC morphologyOrdered By: Kanu Ayoub on 01-04-2024 RBC morphology finding Nom (Bld) N/A [facility] Scan and CBCon 01-04-2024 Large Platelets Slight Normal [facility] Comment on above: Result Comment: PERF ORMED BY: [place] [address] PATHOLOGIST MANAGER WINTER MISAEL FOX M.D. Performed By: #### T ACROLIMUS., CMP, CBC #### [address] Mean Corpuscular HGB Conc 33.6 g/dL Normal 32.5-35.6 [facility] Comment on above: Performed By: #### T ACROLIMUS., CMP, CBC #### [address] NRBC% 0.1 /100{WBC} Normal 0-0.5 [facility] Comment on above: Performed By: #### T ACROLIMUS., CMP, CBC #### [address] Platelet Estimate Decreased Normal Normal [facility] Comment on above: Performed By: #### T ACROLIMUS., CMP, CBC #### [address] Polychromasia Slight Normal [facility] Comment on above: Performed By: #### T ACROLIMUS., CMP, CBC #### [address] Serum globulin measurement b y calculation (mass/volume)Ordered By: Sharan Ayoub on 01-04-2024 Globulin (S) [Mass/Vol] 3.4 g/dL [facility] Comment on above: Performed By: #### T ACROLIMUS., CMP, CBC #### [address] Serum or plasma albumin/glob ulin mass ratioOrdered By: Sharan Ayoub on 01-04-2024 Albumin/Globulin [Mass ratio] 1.0 {ratio} [facility] Comment on above: Performed By: #### T ACROLIMUS., CMP, CBC #### [address] Serum or plasma anion gap de terminationOrdered By: Sharan Ayoub on 01-04-2024 Anion gap [Moles/Vol] 8.7 mmol/L Normal 6.0-15.0 [facility] Comment on above: Performed By: #### T ACROLIMUS., CMP, CBC #### [address] Sodium [Moles/volume] in Ser um or PlasmaOrdered By: Sharan Ayoub on 01-04-2024 Sodium [Moles/Vol] 138 mmol/L Normal 136-145 [facility] Comment on above: Performed By: #### T ACROLIMUS., CMP, CBC #### [facility] [address] [place] [address] Tacrolimuson 01-04-2024 Tacrolimus (Bld) [Mass/Vol] 6.3 ng/mL Normal <=15.0 [facility] Comment on above: Order Comment: NOTE: Result was obtained using a chemiluminescent microparticle immunoassay (CMIA) on the [employer] i system. Optimal therapeutic ranges for immunosuppressant drugs depend upon an individual patient's current clinical state, type of organ transplant, time post-transplant, co-administration of other immunosuppressants, and other clinical factors. The results of this test should be correlated with additional clinical and laboratory data before changes in treatment regimens are made. Performed By: #### 1 0343-2 #### NORMA Cherry ([id number]) [facility] ([facility]) [id number] [place] [address] Tacrolimus (Transplant) No C hgon 01-04-2024 Tacrolimus (Transplant) No Chg Sent to Ref Lab Normal [facility] Comment on above: Performed By: #### T ACROLIMUS., CMP, CBC #### [address] Tacrolimus [Mass/volume] in BloodOrdered By: Sharan Ayoub on 01-04-2024 Tacrolimus (Bld) [Mass/Vol] Sent to ref lab [facility] Urea nitrogen [Mass/volume] in Serum or PlasmaOrdered By: Sharan Ayoub on 01-04-2024 Urea nitrogen [Mass/Vol] 18 mg/dL Normal 7-25 [facility] Comment on above: Performed By: #### T ACROLIMUS., CMP, CBC #### [address] Whole blood quantitative Eps tein-Fair virus (EBV) DNA assay by PCROrdered By: Sharan Ayoub on 01-04-2024 EBV DNA LÁZARO+probe (Bld) [#/Vol] Sent to ref lab [facility] Glucose Test strip manual (B ld) [Mass/Vol]on 12-19-2023 Glucose [Mass/Vol] 112 mg/dL High 74 - 99 mg/dL [facility] Interpretation and review of laboratory results Abnormal [facility] Glucose [Mass/Vol] 112 mg/dL High 74-99 [facility] Comment on above: Performed By: #### 2 341-6 #### NORMA Cherry ([id number]) [facility] ([facility]) [address] [place] [address] Surgical pathology studyon 0 12-19-2023 Surgical pathology study Pathology report.total SEE COMMENT Surgical Pathology Case: [id number] Authorizing Provider: Doyle Cavazos MD Collected: 12/19/2023 1008 Ordering Location: [facility] Received: 12/19/2023 1652 Center Pathologist: Carol Murphy [...] determined by the Department of Pathology at [facility]. The FDA does not require this test [...] and negative controls which stained appropriately. Normal [facility] US GUIDED NEEDLE LIVER BIOPS Yon 12-19-2023 US GUIDED NEEDLE LIVER BIOPSY Interpreted By: Татьяна Eid and Barbat Antonio STUDY: US GUIDED NEEDLE LIVER BIOPSY; 12/19/2023 9:47 am INDICATION: Signs/Symptoms:s/p liver transplant with elevated LFT's. Transplant: April 2016. COMPARISON: IR liver biopsy ultrasound 02/04/2023. ACCESSION NUMBER(S): [id number] ORDERING CLINICIAN: SHARAN AYOUB TECHNIQUE: INTERVENTIONALIST(S): MD [...] This study was performed and interpreted at [place], [place] MACRO: None. Signed by: Татьяна Eid 12/19/2023 9:02 PM Dictation workstation: [id number] [facility] Comment on above: Order Comment: Sched ule [...] This study was performed and interpreted at [place], [place] MACRO: None. Signed by: Татьяна Eid 12/19/2023 9:02 PM Dictation workstation: [id number] Interpreted By: Татьяна Eid and Barbat Antonio STUDY: US GUIDED NEEDLE LIVER BIOPSY; 12/19/2023 9:47 am INDICATION: Signs/Symptoms:s/p liver transplant with elevated LFT's. Transplant: April 2016. COMPARISON: IR liver biopsy ultrasound 02/04/2023. ACCESSION NUMBER(S): [id number] ORDERING CLINICIAN: SHARAN AYOUB TECHNIQUE: INTERVENTIONALIST(S): MD [...] IR liver biopsy ultrasound 02/04/2023. ACCESSION NUMBER(S): [id number] ORDERING CLINICIAN: SHARAN AYOUB TECHNIQUE: INTERVENTIONALIST(S): MD [...] This study was performed and interpreted at [place], [place] MACRO: None. Signed by: Татьяна Eid 12/19/2023 9:02 PM Dictation workstation: [id number] [facility] Work Phone: Radiology Study observation (narrative) [facility] Work Phone: US Guidance for biopsy of Li verOrdered By: Татьяна Eid on 12-19-2023 [facility] Work Phone: Alanine aminotransferase [En zymatic activity/volume] in Serum or PlasmaOrdered By: Sharan Ayoub on 12-12-2023 ALT [Catalytic activity/Vol] 104 U/L High 7-52 [facility] Comment on above: Performed By: #### T ACROLIMUS., CMP, CBC #### [facility] [address] Albumin [Mass/volume] in Ser um or Plasma by Bromocresol green (BCG) dye binding methoOrdered By: Sharan Ayoub on 12-12-2023 Albumin BCG dye [Mass/Vol] 3.5 g/dL 3.5-5.7 [facility] Alkaline phosphatase [Enzyma tic activity/volume] in Serum or PlasmaOrdered By: Sharan Ayoub on 12-12-2023 ALP [Catalytic activity/Vol] 252 U/L High 34-104 [facility] Comment on above: Result Comment: PERF ORMED BY: [place] [address] PATHOLOGIST MANAGER WINTER MISAEL FOX M.D. Performed By: #### T ACROLIMUS., CMP, CBC #### [address] Aspartate aminotransferase [ Enzymatic activity/volume] in Serum or PlasmaOrdered By: Sharan Ayoub on 12-12-2023 AST [Catalytic activity/Vol] 117 U/L High 13-39 [facility] Comment on above: Performed By: #### T ACROLIMUS., CMP, CBC #### [facility] [address] [place] [address] Automated basophil %Ordered By: Sharan Ayoub on 12-12-2023 Basophils/100 WBC (Bld) 0.7 % Normal . [facility] Comment on above: Performed By: #### T ACROLIMUS., CMP, CBC #### [address] Automated basophil countOrde red By: Sharan Ayoub on 12-12-2023 Basophils (Bld) [#/Vol] 0.0 10*3/uL Normal 0.0-0.2 [facility] Comment on above: Result Comment: PERF ORMED BY: [place] [address] PATHOLOGIST MANAGER WINTER MISAEL FOX M.D. Performed By: #### T ACROLIMUS., CMP, CBC #### [address] Automated blood monocyte cou ntOrdered By: Sharan Ayoub on 12-12-2023 Monocytes (Bld) [#/Vol] 0.4 10*3/uL Normal 0.0-0.8 [facility] Comment on above: Performed By: #### T ACROLIMUS., CMP, CBC #### [address] Automated eosinophil %Ordere d By: Sharan Ayoub on 12-12-2023 Eosinophils/100 WBC (Bld) 0.9 % Normal . [facility] Comment on above: Performed By: #### T ACROLIMUS., CMP, CBC #### [address] Automated eosinophil countOr dered By: Sharan Ayoub on 12-12-2023 Eosinophils (Bld) [#/Vol] 0.1 10*3/uL Normal 0.0-0.45 [facility] Comment on above: Performed By: #### T ACROLIMUS., CMP, CBC #### [address] Automated monocyte %Ordered By: Sharan Ayoub on 12-12-2023 Monocytes/100 WBC (Bld) 6.7 % Normal . [facility] Comment on above: Performed By: #### T ACROLIMUS., CMP, CBC #### [address] Automated neutrophil %Ordere d By: Sharan Ayoub on 12-12-2023 Neutrophils/100 WBC (Bld) 67.2 % Normal . [facility] Comment on above: Performed By: #### T ACROLIMUS., CMP, CBC #### [address] Bilirubin.total [Mass/volume ] in Serum or PlasmaOrdered By: Sharan Ayoub on 12-12-2023 Bilirubin [Mass/Vol] 2.9 mg/dL High 0.3-1.0 [facility] Comment on above: Samples from [...] By: #### T ACROLIMUS., CMP, CBC #### [facility] [address] [place] [address] [place] Calcium [Mass/volume] in Ser um or PlasmaOrdered By: Sharan Ayoub on 12-12-2023 Calcium [Mass/Vol] 9.0 mg/dL Normal 8.6-10.3 [facility] Comment on above: Performed By: #### T ACROLIMUS., CMP, CBC #### [facility] [address] [place], [place] [id number] [facility] Carbon dioxide, total [Moles /volume] in Serum or PlasmaOrdered By: Sharan Ayoub on 12-12-2023 CO2 [Moles/Vol] 28.3 mmol/L Normal 21.0-31.0 [facility] Comment on above: Performed By: #### T ACROLIMUS., CMP, CBC #### [facility] [address] [place] [id number] [place] Chloride [Moles/volume] in S kasi or PlasmaOrdered By: Sharan Ayoub on 12-12-2023 Chloride [Moles/Vol] 102 mmol/L Normal 98-107 [facility] Comment on above: Performed By: #### T ACROLIMUS., CMP, CBC #### [facility] [address] [place] [id number] [place] Complete Blood Count Auto Di ffon 12-12-2023 Mean Corpuscular HGB Conc 33.1 g/dL Normal 32.5-35.6 [facility] Comment on above: Performed By: #### T ACROLIMUS., CMP, CBC #### [address] NRBC% 0.1 /100{WBC} Normal 0-0.5 [facility] Comment on above: Performed By: #### T ACROLIMUS., CMP, CBC #### [address] Comprehensive Metabolic Pane sarah 12-12-2023 Albumin [Mass/Vol] 3.5 g/dL Normal 3.5-5.7 [facility] Comment on above: Performed By: #### T ACROLIMUS., CMP, CBC #### [address] GFR/1.73 sq M.predicted MDRD (S/P/Bld) [Vol rate/Area] mL/min/{1.73_m2} Normal [facility] Comment on above: Performed By: #### T ACROLIMUS., CMP, CBC #### [address] Creatinine [Mass/volume] in Serum or PlasmaOrdered By: Sharan Ayoub on 12-12-2023 Creatinine [Mass/Vol] 1.01 mg/dL Normal 0.70-1.30 [facility] Comment on above: Performed By: #### T ACROLIMUS., CMP, CBC #### [address] Erythrocyte distribution wid th [Ratio] by Automated countOrdered By: Sharan Ayoub on 12-12-2023 Erythrocyte distribution width (RBC) [Ratio] 13.7 % Normal 12.0-14.8 [facility] Comment on above: Performed By: #### T ACROLIMUS., CMP, CBC #### [address] Erythrocytes [#/volume] in B lood by Automated countOrdered By: Sharan Ayoub on 12-12-2023 RBC (Bld) [#/Vol] 4.08 10*6/uL Normal 3.90-5.60 [facility] Comment on above: Performed By: #### T ACROLIMUS., CMP, CBC #### [facility] [address] Glucose [Mass/volume] in Ser um or PlasmaOrdered By: Sharan Ayoub on 12-12-2023 Glucose [Mass/Vol] 224 mg/dL High 70-100 [facility] Comment on above: ADA recommended refe rence rangeRandom Glucose Reference Range is dependent on time and content of last meal. Glucose of more than 200 mg/dL in a nonstressed, ambulatory subject supports the diagnosis of Diabetes Mellitus. Result Comment: [place] Glucose Reference Range is dependent on time and content of last meal. Glucose of more than 200 mg/dL in a nonstressed, ambulatory subject supports the diagnosis of Diabetes Mellitus. ADA recommended reference range Performed By: #### T ACROLIMUS., CMP, CBC #### [facility] [address] Hematocrit [Volume Fraction] of Blood by Automated countOrdered By: Sharna Ayoub on 12-12-2023 Hematocrit (Bld) [Volume fraction] 38.5 % Low 38.8-50.0 [facility] Comment on above: Performed By: #### T ACROLIMUS., CMP, CBC #### [facility] [address] [place] [address] [place] Hemoglobin [Mass/volume] in BloodOrdered By: Sharan Ayoub on 12-12-2023 Hemoglobin (Bld) [Mass/Vol] 12.8 g/dL Low 13.0-17.0 [facility] Comment on above: Performed By: #### T ACROLIMUS., CMP, CBC #### [facility] [address] [place] [address] [place] INR in Platelet poor plasma by Coagulation assayOrdered By: Sharan Ayoub on 12-12-2023 INR Coag (PPP) [Relative time] 1.2 {INR} Normal [facility] Comment on above: INR Therapeutic Rang [...] heart valves: 3 - 4.5 PERFORMED BY: [place] [address] PATHOLOGIST MANAGER WINTER MISAEL FOX M.D. Performed By: #### T ACROLIMUS., CMP, CBC #### [address] Leukocytes [#/volume] correc roderick for nucleated erythrocytes in Blood by Automated counOrdered By: Sharan Ayoub on 12-12-2023 WBC corrected for nucl RBC Auto (Bld) [#/Vol] 6.1 10*3/uL 4.1-10.5 [facility] Leukocytes [#/volume] in Blo od by Automated countOrdered By: Sharan Ayoub on 12-12-2023 WBC (Bld) [#/Vol] 6.1 10*3/uL Normal 4.1-10.5 [facility] Comment on above: Performed By: #### T ACROLIMUS., CMP, CBC #### [facility] [address] [place] [address] [place] Lymphocytes [#/volume] in Bl ood by Automated countOrdered By: Sharan Ayoub on 12-12-2023 Lymphocytes (Bld) [#/Vol] 1.5 10*3/uL Normal 1.00-4.8 [facility] Comment on above: Performed By: #### T ACROLIMUS., CMP, CBC #### [address] [address] [place] Lymphocytes/100 leukocytes i n Blood by Automated countOrdered By: Sharan Ayoub on 12-12-2023 Lymphocytes/100 WBC (Bld) 24.5 % Normal . [facility] Comment on above: Performed By: #### T ACROLIMUS., CMP, CBC #### [facility] [address] [place] [address] MCH [Entitic mass] by Automa roderick countOrdered By: Sharan Ayoub on 12-12-2023 MCH (RBC) [Entitic mass] 31.3 pg Normal 27.5-35.2 [facility] Comment on above: Performed By: #### T ACROLIMUS., CMP, CBC #### [facility] [address] [place] [address] MCHC Auto (RBC) [Mass/Vol]Or dered By: Sharan Ayoub on 12-12-2023 MCHC (RBC) [Mass/Vol] 33.1 g/dL 32.5-35.6 [facility] MCV [Entitic volume] by Auto mated countOrdered By: Sharan Ayoub on 12-12-2023 MCV (RBC) [Entitic vol] 94.5 fL Normal 83.5-101 [facility] Comment on above: Performed By: #### T ACROLIMUS., CMP, CBC #### [facility] [address] [place] [address] Neutrophils [#/volume] in Bl ood by Automated countOrdered By: Sharan Ayoub on 12-12-2023 Neutrophils (Bld) [#/Vol] 4.1 10*3/uL Normal 1.8-7.7 [facility] Comment on above: Performed By: #### T ACROLIMUS., CMP, CBC #### [facility] [address] [place] [address] No Panel InformationOrdered By: Sharan Ayoub on 12-12-2023 Estimated GFR (CKD-EPI) > 60.0 mL/Min [facility] Creatinine Clearance (Chem N/A [facility] Nucleated erythrocytes [Pres ence] in Blood by Automated countOrdered By: Sharan Ayoub on 12-12-2023 Nucleated RBC Auto Ql (Bld) 0.1 /100{WBC} 0-0.5 [facility] Platelet mean volume [Entiti c volume] in Blood by Automated countOrdered By: Sharan Ayoub on 12-12-2023 Platelet mean volume (Bld) [Entitic vol] 11.2 fL High 6.6-10.1 [facility] Comment on above: Performed By: #### T ACROLIMUS., CMP, CBC #### [facility] [address] Platelets [#/volume] in Bloo d by Automated countOrdered By: Sharan Ayoub on 12-12-2023 Platelets (Bld) [#/Vol] 133 10*3/uL Low 150-450 [facility] Comment on above: Performed By: #### T ACROLIMUS., CMP, CBC #### [facility] [address] [place] [address] [place] Potassium [Moles/volume] in Serum or PlasmaOrdered By: Sharan Ayoub on 12-12-2023 Potassium [Moles/Vol] 4.1 mmol/L Normal 3.5-5.1 [facility] Comment on above: Performed By: #### T ACROLIMUS., CMP, CBC #### [facility] [address] [place] [address] [place] Protein [Mass/volume] in Ser um or PlasmaOrdered By: Sharan Ayoub on 12-12-2023 Protein [Mass/Vol] 7.2 g/dL Normal 6.4-8.9 [facility] Comment on above: Performed By: #### T ACROLIMUS., CMP, CBC #### [facility] [address] [place] [address] [place] Prothrombin time (PT)Ordered By: Sharan Ayoub on 12-12-2023 PT Coag (PPP) [Time] 13.4 s High 9.0-12.9 [facility] Comment on above: A hematocrit value g reater than 55% may lead to inaccurate results in coagulation testing. Patients having hematocrit values >55% require a special collection tube for coagulation studies. Please contact the laboratory at [phone] for redraw instructions. Order Comment: List the anticoagulant: ASPIRIN Result Comment: A he matocrit value greater than 55% may lead to inaccurate results in coagulation testing. Patients having hematocrit values >55% require a special collection tube for coagulation studies. Please contact the laboratory at [phone] for redraw instructions. Performed By: #### T ACROLIMUS., CMP, CBC #### [address] Serum globulin measurement b y calculation (mass/volume)Ordered By: Sharan Ayoub on 12-12-2023 Globulin (S) [Mass/Vol] 3.7 g/dL [facility] Comment on above: Performed By: #### T ACROLIMUS., CMP, CBC #### [address] Serum or plasma albumin/glob ulin mass ratioOrdered By: Sharan Ayoub on 12-12-2023 Albumin/Globulin [Mass ratio] 0.9 {ratio} [facility] Comment on above: Performed By: #### T ACROLIMUS. CMP, CBC #### [address] Serum or plasma anion gap de terminationOrdered By: Sharan Ayoub on 12-12-2023 Anion gap [Moles/Vol] 11.8 mmol/L Normal 6.0-15.0 [facility] Comment on above: Performed By: #### T ACROLIMUS., CMP, CBC #### [address] Sodium [Moles/volume] in Ser um or PlasmaOrdered By: Sharan Ayoub on 12-12-2023 Sodium [Moles/Vol] 138 mmol/L Normal 136-145 [facility] Comment on above: Performed By: #### T ACROLIMUS., CMP, CBC #### [address] Tacrolimuson 12-12-2023 Tacrolimus (Bld) [Mass/Vol] 10.5 ng/mL Normal <=15.0 [facility] Comment on above: Order Comment: NOTE: Result was obtained using a chemiluminescent microparticle immunoassay (CMIA) on the [employer] i system. Optimal therapeutic ranges for immunosuppressant drugs depend upon an individual patient's current clinical state, type of organ transplant, time post-transplant, co-administration of other immunosuppressants, and other clinical factors. The results of this test should be correlated with additional clinical and laboratory data before changes in treatment regimens are made. Performed By: #### 1 1253-2 #### NORMA Cherry ([id number]) [facility] ([facility]) [id number] [place] [address] Tacrolimus (Transplant) No C hgon 12-12-2023 Tacrolimus (Transplant) No Chg Sent to Ref Lab Normal [facility] Comment on above: Result Comment: PERF ORMED BY: [place] [address] PATHOLOGIST MANAGER WINTER MISAEL FOX M.D. Performed By: #### T ACROLIMUS., CMP, CBC #### [place] [address] [place] Tacrolimus [Mass/volume] in BloodOrdered By: Sharan Ayoub on 12-12-2023 Tacrolimus (Bld) [Mass/Vol] Sent to ref lab [facility] Urea nitrogen [Mass/volume] in Serum or PlasmaOrdered By: Sharan Ayoub on 12-12-2023 Urea nitrogen [Mass/Vol] 18 mg/dL Normal 04-25 [facility] Comment on above: Performed By: #### T ACROLIMUS., CMP, CBC #### [place] [id number] [place] Alanine aminotransferase [En zymatic activity/volume] in Serum or PlasmaOrdered By: Sharan Ayoub on 12-04-2023 ALT [Catalytic activity/Vol] 91 U/L High [facility] Comment on above: Performed By: #### C MP, CBC, TACROLIMUS. #### [facility] [address] [place] [address] [place] Albumin [Mass/volume] in Ser um or Plasma by Bromocresol green (BCG) dye binding methoOrdered By: Sharan Ayoub on 12-04-2023 Albumin BCG dye [Mass/Vol] 3.2 g/dL 3.5-5.7 [facility] Alkaline phosphatase [Enzyma tic activity/volume] in Serum or PlasmaOrdered By: Sharan Ayoub on 12-04-2023 ALP [Catalytic activity/Vol] 244 U/L High 34-104 [facility] Comment on above: Result Comment: PERF ORMED BY: [place] [address] PATHOLOGIST MANAGER WINTER MISAEL FOX M.D. Performed By: #### C MP, CBC, TACROLIMUS. #### [address] Anisocytosis [Presence] in B lood by Light microscopyOrdered By: Sharan Ayoub on 12-04-2023 Anisocytosis Ql (Bld) Slight Normal [facility] Comment on above: Performed By: #### C MP, CBC, TACROLIMUS. #### [address] Aspartate aminotransferase [ Enzymatic activity/volume] in Serum or PlasmaOrdered By: Sharan Ayoub on 12-04-2023 AST [Catalytic activity/Vol] 116 U/L High 13-39 [facility] Comment on above: Performed By: #### C MP, CBC, TACROLIMUS. #### [address] Automated basophil %Ordered By: Sharan Ayoub on 12-04-2023 Basophils/100 WBC (Bld) 0.4 % Normal . [facility] Comment on above: Performed By: #### C MP, CBC, TACROLIMUS. #### [address] Automated basophil countOrde red By: Sharan Ayoub on 12-04-2023 Basophils (Bld) [#/Vol] 0.0 10*3/uL Normal 0.0-0.2 [facility] Comment on above: Performed By: #### C MP, CBC, TACROLIMUS. #### [address] Automated blood monocyte cou ntOrdered By: Sharan Ayoub on 12-04-2023 Monocytes (Bld) [#/Vol] 0.4 10*3/uL Normal 0.0-0.8 [facility] Comment on above: Performed By: #### C MP, CBC, TACROLIMUS. #### [address] Automated eosinophil %Ordere d By: Sharan Ayoub on 12-04-2023 Eosinophils/100 WBC (Bld) 3.6 % Normal . [facility] Comment on above: Performed By: #### C MP, CBC, TACROLIMUS. #### [address] Automated eosinophil countOr dered By: Sharan Ayoub on 12-04-2023 Eosinophils (Bld) [#/Vol] 0.2 10*3/uL Normal 0.0-0.45 [facility] Comment on above: Performed By: #### C MP, CBC, TACROLIMUS. #### [address] Automated monocyte %Ordered By: Sharan Ayoub on 12-04-2023 Monocytes/100 WBC (Bld) 9.2 % Normal . [facility] Comment on above: Performed By: #### C MP, CBC, TACROLIMUS. #### [address] Automated neutrophil %Ordere d By: Sharan Ayoub on 12-04-2023 Neutrophils/100 WBC (Bld) 44.3 % Normal . [facility] Comment on above: Performed By: #### C MP, CBC, TACROLIMUS. #### [address] Bilirubin.total [Mass/volume ] in Serum or PlasmaOrdered By: Sharan Ayoub on 12-04-2023 Bilirubin [Mass/Vol] 2.5 mg/dL High 0.3-1.0 [facility] Comment on above: Samples from [...] By: #### C MP, CBC, TACROLIMUS. #### [facility] [address] Calcium [Mass/volume] in Ser um or PlasmaOrdered By: Sharan Ayoub on 12-04-2023 Calcium [Mass/Vol] 8.8 mg/dL Normal 8.6-10.3 [facility] Comment on above: Performed By: #### C MP, CBC, TACROLIMUS. #### [address] Carbon dioxide, total [Moles /volume] in Serum or PlasmaOrdered By: Sharan Ayoub on 12-04-2023 CO2 [Moles/Vol] 31.9 mmol/L High 21.0-31.0 [facility] Comment on above: Performed By: #### C MP, CBC, TACROLIMUS. #### [address] Chloride [Moles/volume] in S kasi or PlasmaOrdered By: Sharan Ayoub on 12-04-2023 Chloride [Moles/Vol] 107 mmol/L Normal 98-107 [facility] Comment on above: Performed By: #### C MP, CBC, TACROLIMUS. #### [address] Comprehensive Metabolic Pane sarah 12-04-2023 Albumin [Mass/Vol] 3.2 g/dL Low 3.5-5.7 [facility] Comment on above: Performed By: #### C MP, CBC, TACROLIMUS. #### [address] GFR/1.73 sq M.predicted MDRD (S/P/Bld) [Vol rate/Area] mL/min/{1.73_m2} Normal [facility] Comment on above: Performed By: #### C MP, CBC, TACROLIMUS. #### [facility] [address] Creatinine [Mass/volume] in Serum or PlasmaOrdered By: Sharan Ayoub on 12-04-2023 Creatinine [Mass/Vol] 1.00 mg/dL Normal 0.70-1.30 [facility] Comment on above: Performed By: #### C MP, CBC, TACROLIMUS. #### [facility] [address] Erythrocyte distribution wid th [Ratio] by Automated countOrdered By: Sharan Ayoub on 12-04-2023 Erythrocyte distribution width (RBC) [Ratio] 14.3 % Normal 12.0-14.8 [facility] Comment on above: Performed By: #### C MP, CBC, TACROLIMUS. #### [address] Erythrocytes [#/volume] in B lood by Automated countOrdered By: Sharan Ayoub on 12-04-2023 RBC (Bld) [#/Vol] 4.18 10*6/uL Normal 3.90-5.60 [facility] Comment on above: Performed By: #### C MP, CBC, TACROLIMUS. #### [address] Glucose [Mass/volume] in Ser um or PlasmaOrdered By: Sharan Ayoub on 12-04-2023 Glucose [Mass/Vol] 95 mg/dL Normal 70-100 [facility] Comment on above: ADA recommended refe rence rangeRandom Glucose Reference Range is dependent on time and content of last meal. Glucose of more than 200 mg/dL in a nonstressed, ambulatory subject supports the diagnosis of Diabetes Mellitus. Result Comment: [place] Glucose Reference Range is dependent on time and content of last meal. Glucose of more than 200 mg/dL in a nonstressed, ambulatory subject supports the diagnosis of Diabetes Mellitus. ADA recommended reference range Performed By: #### C MP, CBC, TACROLIMUS. #### [address] Hematocrit [Volume Fraction] of Blood by Automated countOrdered By: Sharan Ayoub on 12-04-2023 Hematocrit (Bld) [Volume fraction] 39.3 % Normal 38.8-50.0 [facility] Comment on above: Performed By: #### C MP, CBC, TACROLIMUS. #### [address] Hemoglobin [Mass/volume] in BloodOrdered By: Sharan Ayoub on 12-04-2023 Hemoglobin (Bld) [Mass/Vol] 13.2 g/dL Normal 13.0-17.0 [facility] Comment on above: Performed By: #### C MP, CBC, TACROLIMUS. #### [address] Leukocytes [#/volume] correc roderick for nucleated erythrocytes in Blood by Automated counOrdered By: Sharan Ayoub on 12-04-2023 WBC corrected for nucl RBC Auto (Bld) [#/Vol] 4.3 10*3/uL 4.1-10.5 [facility] Leukocytes [#/volume] in Blo od by Automated countOrdered By: Sharan Ayoub on 12-04-2023 WBC (Bld) [#/Vol] 4.3 10*3/uL Normal 4.1-10.5 [facility] Comment on above: Performed By: #### C MP, CBC, TACROLIMUS. #### [place] [address] [place] Lymphocytes [#/volume] in Bl ood by Automated countOrdered By: Sharan Ayoub on 12-04-2023 Lymphocytes (Bld) [#/Vol] 1.8 10*3/uL Normal 1.00-4.8 [facility] Comment on above: Performed By: #### C MP, CBC, TACROLIMUS. #### [place] [address] [place] Lymphocytes/100 leukocytes i n Blood by Automated countOrdered By: Sharan Ayoub on 12-04-2023 Lymphocytes/100 WBC (Bld) 42.5 % Normal . [facility] Comment on above: Performed By: #### C MP, CBC, TACROLIMUS. #### [facility] [address] [place] [address] MCH [Entitic mass] by Automa roderick countOrdered By: Sharan Ayoub on 12-04-2023 MCH (RBC) [Entitic mass] 31.7 pg Normal 27.5-35.2 [facility] Comment on above: Performed By: #### C MP, CBC, TACROLIMUS. #### [facility] [address] [place] [address] MCHC Auto (RBC) [Mass/Vol]Or dered By: Sharan Ayoub on 12-04-2023 MCHC (RBC) [Mass/Vol] 33.6 g/dL 32.5-35.6 [facility] MCV [Entitic volume] by Auto mated countOrdered By: Sharan Ayoub on 12-04-2023 MCV (RBC) [Entitic vol] 94.2 fL Normal 83.5-101 [facility] Comment on above: Performed By: #### C MP, CBC, TACROLIMUS. #### [facility] [address] [place] [address] Neutrophils [#/volume] in Bl ood by Automated countOrdered By: Sharan Ayoub on 12-04-2023 Neutrophils (Bld) [#/Vol] 1.9 10*3/uL Normal 1.8-7.7 [facility] Comment on above: Performed By: #### C MP, CBC, TACROLIMUS. #### [facility] [address] [place] [address] No Panel InformationOrdered By: Sharan Ayoub on 12-04-2023 Estimated GFR (CKD-EPI) > 60.0 mL/Min [facility] Creatinine Clearance (Chem N/A [facility] Nucleated erythrocytes [Pres ence] in Blood by Automated countOrdered By: Sharan Ayoub on 12-04-2023 Nucleated RBC Auto Ql (Bld) 0.2 /100{WBC} 0-0.5 [facility] Platelet adequacy [Presence] in Blood by Light microscopyOrdered By: Sharan Ayoub on 12-04-2023 Platelets LM Ql (Bld) Decreased Normal [facility] Platelet mean volume [Entiti c volume] in Blood by Automated countOrdered By: Sharan Ayoub on 12-04-2023 Platelet mean volume (Bld) [Entitic vol] 12.0 fL High 6.6-10.1 [facility] Comment on above: Performed By: #### C MP, CBC, TACROLIMUS. #### [address] Platelet morphology finding [Identifier] in BloodOrdered By: Sharan Ayoub on 12-04-2023 Platelet morphology finding Nom (Bld) N/A [facility] Platelets Large [Presence] i n Blood by Light microscopyOrdered By: Sharan Ayoub on 12-04-2023 Platelets Large LM Ql (Bld) Slight [facility] Platelets [#/volume] in Bloo d by Automated countOrdered By: Sharan Ayoub on 12-04-2023 Platelets (Bld) [#/Vol] 107 10*3/uL Low 150-450 [facility] Comment on above: Performed By: #### C MP, CBC, TACROLIMUS. #### [facility] [address] [place] [address] [place] Potassium [Moles/volume] in Serum or PlasmaOrdered By: Sharan Ayoub on 12-04-2023 Potassium [Moles/Vol] 4.1 mmol/L Normal 3.5-5.1 [facility] Comment on above: Performed By: #### C MP, CBC, TACROLIMUS. #### [facility] [address] [place] [address] [place] Protein [Mass/volume] in Ser um or PlasmaOrdered By: Sharan Ayoub on 12-04-2023 Protein [Mass/Vol] 6.9 g/dL Normal 6.4-8.9 [facility] Comment on above: Performed By: #### C MP, CBC, TACROLIMUS. #### [place] [address] [place] RBC morphologyOrdered By: Kanu Ayoub on 12-04-2023 RBC morphology finding Nom (Bld) Normal Normal Normal [facility] Comment on above: Performed By: #### C MP, CBC, TACROLIMUS. #### [address] Scan and CBCon 12-04-2023 Large Platelets Slight Normal [facility] Comment on above: Result Comment: PERF ORMED BY: [place] [address] PATHOLOGIST MANAGER WINTER MISAEL FOX M.D. Performed By: #### C MP, CBC, TACROLIMUS. #### [address] Mean Corpuscular HGB Conc 33.6 g/dL Normal 32.5-35.6 [facility] Comment on above: Performed By: #### C MP, CBC, TACROLIMUS. #### [address] NRBC% 0.2 /100{WBC} Normal 0-0.5 [facility] Comment on above: Performed By: #### C MP, CBC, TACROLIMUS. #### [address] Platelet Estimate Decreased Normal Normal [facility] Comment on above: Performed By: #### C MP, CBC, TACROLIMUS. #### [address] Serum globulin measurement b y calculation (mass/volume)Ordered By: Sharan Ayoub on 12-04-2023 Globulin (S) [Mass/Vol] 3.7 g/dL Normal [facility] Comment on above: Performed By: #### C MP, CBC, TACROLIMUS. #### [address] Serum or plasma albumin/glob ulin mass ratioOrdered By: Sharan Ayoub on 12-04-2023 Albumin/Globulin [Mass ratio] 0.9 {ratio} Normal [facility] Comment on above: Performed By: #### C MP, CBC, TACROLIMUS. #### [address] Serum or plasma anion gap de terminationOrdered By: Sharan Ayoub on 12-04-2023 Anion gap [Moles/Vol] 6.2 mmol/L Normal 6.0-15.0 [facility] Comment on above: Performed By: #### C MP, CBC, TACROLIMUS. #### [address] Sodium [Moles/volume] in Ser um or PlasmaOrdered By: Sharan Ayoub on 12-04-2023 Sodium [Moles/Vol] 141 mmol/L Normal 136-145 [facility] Comment on above: Performed By: #### C MP, CBC, TACROLIMUS. #### [address] Tacrolimuson 12-04-2023 Tacrolimus (Bld) [Mass/Vol] 17.1 ng/mL High <=15.0 [facility] Comment on above: Order Comment: NOTE: Result was obtained using a chemiluminescent microparticle immunoassay (CMIA) on the [employer] i system. Optimal therapeutic ranges for immunosuppressant drugs depend upon an individual patient's current clinical state, type of organ transplant, time post-transplant, co-administration of other immunosuppressants, and other clinical factors. The results of this test should be correlated with additional clinical and laboratory data before changes in treatment regimens are made. Performed By: #### 1 1253-2 #### NORMA Cherry ([id number]) [facility] ([facility]) [id number] [place] [address] Tacrolimus (Transplant) No C hgon 12-04-2023 Tacrolimus (Transplant) No Chg Sent to Ref Lab Normal [facility] Comment on above: Result Comment: PERF ORMED BY: [place] [address] PATHOLOGIST MANAGER WINTER MISAEL FOX M.D. Performed By: #### C MP, CBC, TACROLIMUS. #### [address] Tacrolimus [Mass/volume] in BloodOrdered By: Sharan Ayoub on 12-04-2023 Tacrolimus (Bld) [Mass/Vol] Sent to ref lab [facility] Urea nitrogen [Mass/volume] in Serum or PlasmaOrdered By: Sharan Ayoub on 12-04-2023 Urea nitrogen [Mass/Vol] 17 mg/dL Normal 04-25 [facility] Comment on above: Performed By: #### C MP, CBC, TACROLIMUS. #### [facility] [address] TacrolimusOrdered By: Staci Yates on 10-27-2023 Tacrolimus (Bld) [Mass/Vol] 12.0 ng/mL NINF - 15.0 ng/mL [facility] Tacrolimus (Bld) [Mass/Vol]O rdered By: Adrian Yates on 10-27-2023 Interpretation and review of laboratory results Normal [facility] NOTE: Result was obt ained using a chemiluminescent microparticle immunoassay (CMIA) on the [employer] i system. Optimal therapeutic ranges for immunosuppressant drugs depend upon an individual patient's current clinical state, type of organ transplant, time post-transplant, co-administration of other immunosuppressants, and other clinical factors. The results of this test should be correlated with additional clinical and laboratory data before changes in treatment regimens are made. [facility] Alanine aminotransferase [En zymatic activity/volume] in Serum or PlasmaOrdered By: Sharan Ayoub on 10-26-2023 ALT [Catalytic activity/Vol] 93 U/L High 7 [facility] Comment on above: Performed By: #### C MP, CBC, TACROLIMUS. #### [facility] [address] [place] [address] Albumin [Mass/volume] in Ser um or Plasma by Bromocresol green (BCG) dye binding methoOrdered By: Sharan Ayoub on 10-26-2023 Albumin BCG dye [Mass/Vol] 3.7 g/dL 3.5-5.7 [facility] Alkaline phosphatase [Enzyma tic activity/volume] in Serum or PlasmaOrdered By: Sharan Ayoub on 10-26-2023 ALP [Catalytic activity/Vol] 235 U/L High 34-104 [facility] Comment on above: Result Comment: PERF ORMED BY: [place] [address] PATHOLOGIST MANAGER WINTER MISAEL FOX M.D. Performed By: #### C MP, CBC, TACROLIMUS. #### [facility] [address] Aspartate aminotransferase [ Enzymatic activity/volume] in Serum or PlasmaOrdered By: Sharan Ayoub on 10-26-2023 AST [Catalytic activity/Vol] 83 U/L High 13-39 [facility] Comment on above: Performed By: #### C MP, CBC, TACROLIMUS. #### [facility] [address] Basophils Auto (Bld) [#/Vol] Ordered By: Sharan Ayoub on 10-26-2023 Basophils (Bld) [#/Vol] N/A [facility] Basophils/100 WBC Auto (Bld) Ordered By: Sharan Ayoub on 10-26-2023 Basophils/100 WBC (Bld) N/A [facility] Bilirubin.total [Mass/volume ] in Serum or PlasmaOrdered By: Sharan Ayoub on 10-26-2023 Bilirubin [Mass/Vol] 2.0 mg/dL High 0.3-1.0 [facility] Comment on above: Samples from [...] By: #### C MP, CBC, TACROLIMUS. #### [facility] [address] [place] [address] Calcium [Mass/volume] in Ser um or PlasmaOrdered By: Sharan Ayoub on 10-26-2023 Calcium [Mass/Vol] 9.3 mg/dL Normal 8.6-10.3 [facility] Comment on above: Performed By: #### C MP, CBC, TACROLIMUS. #### [address] Carbon dioxide, total [Moles /volume] in Serum or PlasmaOrdered By: Sharan Ayoub on 10-26-2023 CO2 [Moles/Vol] 31.5 mmol/L High 21.0-31.0 [facility] Comment on above: Performed By: #### C MP, CBC, TACROLIMUS. #### [address] Chloride [Moles/volume] in S kasi or PlasmaOrdered By: Sharan Ayoub on 10-26-2023 Chloride [Moles/Vol] 99 mmol/L Normal 98-107 [facility] Comment on above: Performed By: #### C MP, CBC, TACROLIMUS. #### [address] Comprehensive Metabolic Pane sarah 10-26-2023 Albumin [Mass/Vol] 3.7 g/dL Normal 3.5-5.7 [facility] Comment on above: Performed By: #### C MP, CBC, TACROLIMUS. #### [address] GFR/1.73 sq M.predicted MDRD (S/P/Bld) [Vol rate/Area] mL/min/{1.73_m2} Normal [facility] Comment on above: Performed By: #### C MP, CBC, TACROLIMUS. #### [facility] [address] [place] [address] Creatinine [Mass/volume] in Serum or PlasmaOrdered By: Sharan Ayoub on 10-26-2023 Creatinine [Mass/Vol] 1.09 mg/dL Normal 0.70-1.30 [facility] Comment on above: Performed By: #### C MP, CBC, TACROLIMUS. #### [facility] [address] [place] [address] Diff and CBCon 10-26-2023 Giant Platelet Tally 2 /100{WBC} Normal [facility] Comment on above: Performed By: #### C MP, CBC, TACROLIMUS. #### [address] Mean Corpuscular HGB Conc 33.8 g/dL Normal 32.5-35.6 [facility] Comment on above: Performed By: #### C MP, CBC, TACROLIMUS. #### [address] Platelet Estimate Decreased Normal Normal [facility] Comment on above: Performed By: #### C MP, CBC, TACROLIMUS. #### [facility] [address] [place] [address] Platelet Morphology Normal Normal Normal [facility] Comment on above: Result Comment: PERF ORMED BY: [place] [address] PATHOLOGIST MANAGER WINTER MISAEL FOX M.D. Performed By: #### C MP, CBC, TACROLIMUS. #### [address] Eosinophils Auto (Bld) [#/Vo l]Ordered By: Sharan Ayoub on 10-26-2023 Eosinophils (Bld) [#/Vol] N/A [facility] Eosinophils/100 WBC Auto (Bl d)Ordered By: Sharan Ayoub on 10-26-2023 Eosinophils/100 WBC (Bld) N/A [facility] Erythrocyte distribution wid th [Ratio] by Automated countOrdered By: Sharan Ayoub on 10-26-2023 Erythrocyte distribution width (RBC) [Ratio] 14.1 % Normal 12.0-14.8 [facility] Comment on above: Performed By: #### C MP, CBC, TACROLIMUS. #### [address] Erythrocytes [#/volume] in B lood by Automated countOrdered By: Sharan Ayoub on 10-26-2023 RBC (Bld) [#/Vol] 4.24 10*6/uL Normal 3.90-5.60 [facility] Comment on above: Performed By: #### C MP, CBC, TACROLIMUS. #### [facility] [address] [place] [address] [place] Giant platelets/100 leukocyt es [Ratio] in Blood by Manual countOrdered By: Sharan Ayoub on 10-26-2023 Giant platelets/100 WBC Manual cnt (Bld) [Ratio] 2 /100{WBC} [facility] Glucose [Mass/volume] in Ser um or PlasmaOrdered By: Sharan Ayoub on 10-26-2023 Glucose [Mass/Vol] 307 mg/dL High 70-100 [facility] Comment on above: ADA recommended refe rence rangeRandom Glucose Reference Range is dependent on time and content of last meal. Glucose of more than 200 mg/dL in a nonstressed, ambulatory subject supports the diagnosis of Diabetes Mellitus. Result Comment: [place] [facility] Glucose Reference Range is dependent on time and content of last meal. Glucose of more than 200 mg/dL in a nonstressed, ambulatory subject supports the diagnosis of Diabetes Mellitus. ADA recommended reference range Performed By: #### C MP, CBC, TACROLIMUS. #### [facility] [address] Hematocrit [Volume Fraction] of Blood by Automated countOrdered By: Sharan Ayoub on 10-26-2023 Hematocrit (Bld) [Volume fraction] 39.7 % Normal 38.8-50.0 [facility] Comment on above: Performed By: #### C MP, CBC, TACROLIMUS. #### [facility] [address] Hemoglobin [Mass/volume] in BloodOrdered By: Sharan Ayoub on 10-26-2023 Hemoglobin (Bld) [Mass/Vol] 13.4 g/dL Normal 13.0-17.0 [facility] Comment on above: Performed By: #### C MP, CBC, TACROLIMUS. #### [facility] [address] Leukocytes [#/volume] correc roderick for nucleated erythrocytes in Blood by Automated counOrdered By: Sharan Ayoub on 10-26-2023 WBC corrected for nucl RBC Auto (Bld) [#/Vol] 6.6 10*3/uL 4.1-10.5 [facility] Leukocytes [#/volume] in Blo od by Automated countOrdered By: Sharan Ayoub on 10-26-2023 WBC (Bld) [#/Vol] 6.6 10*3/uL Normal 4.1-10.5 [facility] Comment on above: Performed By: #### C MP, CBC, TACROLIMUS. #### [facility] [address] Lymphocytes Auto (Bld) [#/Vo l]Ordered By: Sharan Ayoub on 10-26-2023 Lymphocytes (Bld) [#/Vol] N/A [facility] Lymphocytes/100 WBC Auto (Bl d)Ordered By: Sharan Ayoub on 10-26-2023 Lymphocytes/100 WBC (Bld) N/A [facility] Lymphocytes/100 leukocytes i n Blood by Manual countOrdered By: Sharan Ayoub on 10-26-2023 Lymphocytes/100 WBC (Bld) 10 % Low 18-42 [facility] Comment on above: Performed By: #### C MP, CBC, TACROLIMUS. #### [facility] [address] [place] [address] MCH [Entitic mass] by Automa roderick countOrdered By: Sharan Ayoub on 10-26-2023 MCH (RBC) [Entitic mass] 31.7 pg Normal 27.5-35.2 [facility] Comment on above: Performed By: #### C MP, CBC, TACROLIMUS. #### [facility] [address] [place] [address] MCHC Auto (RBC) [Mass/Vol]Or dered By: Sharan Ayoub on 10-26-2023 MCHC (RBC) [Mass/Vol] 33.8 g/dL 32.5-35.6 [facility] MCV [Entitic volume] by Auto mated countOrdered By: Sharan Ayoub on 10-26-2023 MCV (RBC) [Entitic vol] 93.7 fL Normal 83.5-101 [facility] Comment on above: Performed By: #### C MP, CBC, TACROLIMUS. #### [facility] [address] Manual blood segmented neutr ophils/100 leukocytesOrdered By: Sharan Ayoub on 10-26-2023 Segmented neutrophils/100 WBC (Bld) 78 % High 50-70 [facility] Comment on above: Performed By: #### C MP, CBC, TACROLIMUS. #### [facility] [address] Monocytes Auto (Bld) [#/Vol] Ordered By: Sharan Ayoub on 10-26-2023 Monocytes (Bld) [#/Vol] N/A [facility] Monocytes/100 WBC Auto (Bld) Ordered By: Sharan Ayoub on 10-26-2023 Monocytes/100 WBC (Bld) N/A [facility] Monocytes/100 leukocytes in Blood by Manual countOrdered By: Sharan Ayoub on 10-26-2023 Monocytes/100 WBC (Bld) 9 % Normal 2-11 [facility] Comment on above: Performed By: #### C MP, CBC, TACROLIMUS. #### [facility] [address] Neutrophils Auto (Bld) [#/Vo l]Ordered By: Sharan Ayoub on 10-26-2023 Neutrophils (Bld) [#/Vol] N/A [facility] Neutrophils/100 WBC Auto (Bl d)Ordered By: Sharan Ayoub on 10-26-2023 Neutrophils/100 WBC (Bld) N/A [facility] No Panel InformationOrdered By: Sharan Ayoub on 10-26-2023 Estimated GFR (CKD-EPI) > 60.0 mL/Min [facility] Creatinine Clearance (Chem N/A [facility] Nucleated erythrocytes [Pres ence] in Blood by Automated countOrdered By: Sharan Ayoub on 10-26-2023 Nucleated RBC Auto Ql (Bld) N/A [facility] Peripheral white blood cell differential % bands, microscopic examOrdered By: Sharan Ayoub on 10-26-2023 Band form neutrophils/100 WBC (Bld) 2 % Normal 0-5 [facility] Comment on above: Performed By: #### C MP, CBC, TACROLIMUS. #### [facility] [address] [place] [address] Platelet adequacy [Presence] in Blood by Light microscopyOrdered By: Sharan Ayoub on 10-26-2023 Platelets LM Ql (Bld) Decreased Normal [facility] Platelet mean volume [Entiti c volume] in Blood by Automated countOrdered By: Sharan Ayoub on 10-26-2023 Platelet mean volume (Bld) [Entitic vol] 10.7 fL High 6.6-10.1 [facility] Comment on above: Performed By: #### C MP, CBC, TACROLIMUS. #### [address] Platelet morphology finding [Identifier] in BloodOrdered By: Sharan Ayoub on 10-26-2023 Platelet morphology finding Nom (Bld) Normal Normal [facility] Platelets [#/volume] in Bloo d by Automated countOrdered By: Sharan Ayoub on 10-26-2023 Platelets (Bld) [#/Vol] 127 10*3/uL Low 150-450 [facility] Comment on above: Performed By: #### C MP, CBC, TACROLIMUS. #### [place] [address] [place] Potassium [Moles/volume] in Serum or PlasmaOrdered By: Sharan Ayoub on 10-26-2023 Potassium [Moles/Vol] 4.1 mmol/L Normal 3.5-5.1 [facility] Comment on above: Performed By: #### C MP, CBC, TACROLIMUS. #### [facility] [address] [place] [address] [place] Protein [Mass/volume] in Ser um or PlasmaOrdered By: Sharan Ayoub on 10-26-2023 Protein [Mass/Vol] 7.5 g/dL Normal 6.4-8.9 [facility] Comment on above: Performed By: #### C MP, CBC, TACROLIMUS. #### [address] RBC morphologyOrdered By: Kanu Ayoub on 10-26-2023 RBC morphology finding Nom (Bld) Normal Normal Normal [facility] Comment on above: Performed By: #### C MP, CBC, TACROLIMUS. #### [address] Serum globulin measurement b y calculation (mass/volume)Ordered By: Sharan Ayoub on 10-26-2023 Globulin (S) [Mass/Vol] 3.8 g/dL Normal [facility] Comment on above: Performed By: #### C MP, CBC, TACROLIMUS. #### [address] Serum or plasma albumin/glob ulin mass ratioOrdered By: Sharan Ayoub on 10-26-2023 Albumin/Globulin [Mass ratio] 1.0 {ratio} [facility] Comment on above: Performed By: #### C MP, CBC, TACROLIMUS. #### [address] Serum or plasma anion gap de terminationOrdered By: Sharan Ayoub on 10-26-2023 Anion gap [Moles/Vol] 9.6 mmol/L Normal 6.0-15.0 [facility] Comment on above: Performed By: #### C MP, CBC, TACROLIMUS. #### [address] Sodium [Moles/volume] in Ser um or PlasmaOrdered By: Sharan Ayoub on 10-26-2023 Sodium [Moles/Vol] 136 mmol/L Normal 136-145 [facility] Comment on above: Performed By: #### C MP, CBC, TACROLIMUS. #### [address] Tacrolimuson 10-26-2023 Tacrolimus (Bld) [Mass/Vol] 12.0 ng/mL Normal <=15.0 [facility] Comment on above: Order Comment: NOTE: Result was obtained using a chemiluminescent microparticle immunoassay (CMIA) on the [employer] i system. Optimal therapeutic ranges for immunosuppressant drugs depend upon an individual patient's current clinical state, type of organ transplant, time post-transplant, co-administration of other immunosuppressants, and other clinical factors. The results of this test should be correlated with additional clinical and laboratory data before changes in treatment regimens are made. Performed By: #### 1 1253-2 #### NORMA Cherry ([id number]) [facility] ([facility]) [id number] [place] [address] Tacrolimus (Transplant) No C hgon 10-26-2023 Tacrolimus (Transplant) No Chg Sent to Ref Lab Normal [facility] Comment on above: Result Comment: PERF ORMED BY: [place] [address] PATHOLOGIST MANAGER WINTER MISAEL FOX M.D. Performed By: #### C MP, CBC, TACROLIMUS. #### [address] Tacrolimus [Mass/volume] in BloodOrdered By: Sharan Ayoub on 10-26-2023 Tacrolimus (Bld) [Mass/Vol] Sent to ref lab [facility] Urea nitrogen [Mass/volume] in Serum or PlasmaOrdered By: Sharan Ayoub on 10-26-2023 Urea nitrogen [Mass/Vol] 16 mg/dL Normal 04-25 [facility] Comment on above: Performed By: #### C MP, CBC, TACROLIMUS. #### [address] Alanine aminotransferase [En zymatic activity/volume] in Serum or PlasmaOrdered By: Sharan Ayoub on 10-03-2023 ALT [Catalytic activity/Vol] 77 U/L High [facility] Comment on above: Performed By: #### T ACROLIMUS., CMP, CBC #### [place] [address] [place] Albumin [Mass/volume] in Ser um or Plasma by Bromocresol green (BCG) dye binding methoOrdered By: Sharan Ayoub on 10-03-2023 Albumin BCG dye [Mass/Vol] 3.4 g/dL 3.5-5.7 [facility] Alkaline phosphatase [Enzyma tic activity/volume] in Serum or PlasmaOrdered By: Sharan Ayoub on 10-03-2023 ALP [Catalytic activity/Vol] 184 U/L High 34-104 [facility] Comment on above: Result Comment: PERF ORMED BY: [place] [address] PATHOLOGIST MANAGER WINTER MISAEL FOX M.D. Performed By: #### T ACROLIMUS., CMP, CBC #### [facility] [address] [place] [address] Aspartate aminotransferase [ Enzymatic activity/volume] in Serum or PlasmaOrdered By: Sharan Ayoub on 10-03-2023 AST [Catalytic activity/Vol] 74 U/L High 13-39 [facility] Comment on above: Performed By: #### T ACROLIMUS., CMP, CBC #### [facility] [address] [place] [address] Automated basophil %Ordered By: Sharan Ayoub on 10-03-2023 Basophils/100 WBC (Bld) 0.9 % Normal . [facility] Comment on above: Performed By: #### T ACROLIMUS., CMP, CBC #### [address] Automated basophil countOrde red By: Sharan Ayoub on 10-03-2023 Basophils (Bld) [#/Vol] 0.0 10*3/uL Normal 0.0-0.2 [facility] Comment on above: Result Comment: PERF ORMED BY: [place] [address] PATHOLOGIST MANAGER WINTER MISAEL FOX M.D. Performed By: #### T ACROLIMUS., CMP, CBC #### [facility] [address] [place] [address] Automated blood monocyte cou ntOrdered By: Sharan Ayoub on 10-03-2023 Monocytes (Bld) [#/Vol] 0.5 10*3/uL Normal 0.0-0.8 [facility] Comment on above: Performed By: #### T ACROLIMUS., CMP, CBC #### [address] Automated eosinophil %Ordere d By: Sharan Ayoub on 10-03-2023 Eosinophils/100 WBC (Bld) 2.1 % Normal . [facility] Comment on above: Performed By: #### T ACROLIMUS., CMP, CBC #### [address] Automated eosinophil countOr dered By: Sharan Ayoub on 10-03-2023 Eosinophils (Bld) [#/Vol] 0.1 10*3/uL Normal 0.0-0.45 [facility] Comment on above: Performed By: #### T ACROLIMUS., CMP, CBC #### [address] Automated monocyte %Ordered By: Sharan Ayoub on 10-03-2023 Monocytes/100 WBC (Bld) 9.3 % Normal . [facility] Comment on above: Performed By: #### T ACROLIMUS., CMP, CBC #### [address] Automated neutrophil %Ordere d By: Sharan Ayoub on 10-03-2023 Neutrophils/100 WBC (Bld) 57.0 % Normal . [facility] Comment on above: Performed By: #### T ACROLIMUS., CMP, CBC #### [address] Bilirubin.total [Mass/volume ] in Serum or PlasmaOrdered By: Sharan Ayoub on 10-03-2023 Bilirubin [Mass/Vol] 2.0 mg/dL High 0.3-1.0 [facility] Comment on above: Samples from patient s who have taken Naproxen have shown spurious elevation in Total Bilirubin levels. A metabolite of Naproxen, O-desmethylnaproxen, has been shown to interfere with the Jenlatriciaik-Uriel method for measuring Total Bilirubin. Result Comment[facility] who have taken Nap[facility]en have shown spurious elevation in Total Bilirubin levels. A metabolite of Naproxen, O-desmethylnaproxen, has been shown to interfere with the Jendrcarmitaik-Uriel method for measuring Total Bilirubin. Performed By: #### T ACROLIMUS., CMP, CBC #### [address] Calcium [Mass/volume] in Ser um or PlasmaOrdered By: Sharan Ayoub on 10-03-2023 Calcium [Mass/Vol] 9.2 mg/dL Normal 8.6-10.3 [facility] Comment on above: Performed By: #### T ACROLIMUS., CMP, CBC #### [address] Carbon dioxide, total [Moles /volume] in Serum or PlasmaOrdered By: Sharan Ayoub on 10-03-2023 CO2 [Moles/Vol] 33.5 mmol/L High 21.0-31.0 [facility] Comment on above: Performed By: #### T ACROLIMUS., CMP, CBC #### [address] Chloride [Moles/volume] in S kasi or PlasmaOrdered By: Sharan Ayoub on 10-03-2023 Chloride [Moles/Vol] 101 mmol/L Normal 98-107 [facility] Comment on above: Performed By: #### T ACROLIMUS., CMP, CBC #### [address] Complete Blood Count Auto Di ffon 10-03-2023 Mean Corpuscular HGB Conc 33.4 g/dL Normal 32.5-35.6 [facility] Comment on above: Performed By: #### T ACROLIMUS., CMP, CBC #### [address] NRBC% 0.1 /100{WBC} Normal 0-0.5 [facility] Comment on above: Performed By: #### T ACROLIMUS., CMP, CBC #### [address] Comprehensive Metabolic Pane sarah 10-03-2023 Albumin [Mass/Vol] 3.4 g/dL Low 3.5-5.7 [facility] Comment on above: Performed By: #### T ACROLIMUS., CMP, CBC #### [address] GFR/1.73 sq M.predicted MDRD (S/P/Bld) [Vol rate/Area] mL/min/{1.73_m2} Normal [facility] Comment on above: Performed By: #### T ACROLIMUS., CMP, CBC #### [address] Creatinine [Mass/volume] in Serum or PlasmaOrdered By: Sharan Ayoub on 10-03-2023 Creatinine [Mass/Vol] 1.05 mg/dL Normal 0.70-1.30 [facility] Comment on above: Performed By: #### T ACROLIMUS., CMP, CBC #### [address] [place] virus DNA [#/vo lume] (viral load) in Serum or Plasma by LÁZARO with probe dOrdered By: Leighton Reilly on 10-03-2023 EBV DNA LÁZARO+probe [#/Vol] Negative Negative [facility] Comment on above: No EBV DNA detected. The linear range of this assay is 35 - 100,000,000 IU/mLPerformed at: [facility] [address] [id number] Director: Thierry Currie MD, Phone: [phone] Isaac-[place] Virus Qnt PCRon 10-03-2023 Esptein-Fair DNA Qnt, PCR Negative Normal Negative [facility] Comment on above: Result Comment: No E BV DNA detected. The linear range of this assay is 35 - 100,000,000 IU/mL Performed at: [facility] [id number] [employer] Helper: Thierry Currie MD, Phone: [phone] PERFORMED BY: [place] [address] PATHOLOGIST MANAGER WINTER MISAEL FOX M.D. Performed By: #### C MP, CBC, TACROLIMUS. #### [facility] [address] Erythrocyte distribution wid th [Ratio] by Automated countOrdered By: Sharan Ayoub on 10-03-2023 Erythrocyte distribution width (RBC) [Ratio] 13.9 % Normal 12.0-14.8 [facility] Comment on above: Performed By: #### T ACROLIMUS., CMP, CBC #### [facility] [address] Erythrocytes [#/volume] in B lood by Automated countOrdered By: Sharan Ayoub on 10-03-2023 RBC (Bld) [#/Vol] 4.21 10*6/uL Normal 3.90-5.60 [facility] Comment on above: Performed By: #### T ACROLIMUS., CMP, CBC #### [facility] [address] Glucose [Mass/volume] in Ser um or PlasmaOrdered By: Sharan Ayoub on 10-03-2023 Glucose [Mass/Vol] 301 mg/dL High 70-100 [facility] Comment on above: ADA recommended refe rence rangeRandom Glucose Reference Range is dependent on time and content of last meal. Glucose of more than 200 mg/dL in a nonstressed, ambulatory subject supports the diagnosis of Diabetes Mellitus. Result Comment: [place] [facility] Glucose Reference Range is dependent on time and content of last meal. Glucose of more than 200 mg/dL in a nonstressed, ambulatory subject supports the diagnosis of Diabetes Mellitus. ADA recommended reference range Performed By: #### T ACROLIMUS., CMP, CBC #### [facility] [address] Hematocrit [Volume Fraction] of Blood by Automated countOrdered By: Sharan Ayoub on 10-03-2023 Hematocrit (Bld) [Volume fraction] 39.9 % Normal 38.8-50.0 [facility] Comment on above: Performed By: #### T ACROLIMUS., CMP, CBC #### [facility] [address] Hemoglobin [Mass/volume] in BloodOrdered By: Sharan Ayoub on 10-03-2023 Hemoglobin (Bld) [Mass/Vol] 13.3 g/dL Normal 13.0-17.0 [facility] Comment on above: Performed By: #### T ACROLIMUS., CMP, CBC #### [facility] [address] [place] [address] Leukocytes [#/volume] correc roderick for nucleated erythrocytes in Blood by Automated counOrdered By: Sharan Ayoub on 10-03-2023 WBC corrected for nucl RBC Auto (Bld) [#/Vol] 4.9 10*3/uL 4.1-10.5 [facility] Leukocytes [#/volume] in Blo od by Automated countOrdered By: Sharan Ayoub on 10-03-2023 WBC (Bld) [#/Vol] 4.9 10*3/uL Normal 4.1-10.5 [facility] Comment on above: Performed By: #### T ACROLIMUS., CMP, CBC #### [facility] [address] [place] [address] [place] Lymphocytes [#/volume] in Bl ood by Automated countOrdered By: Sharan Ayoub on 10-03-2023 Lymphocytes (Bld) [#/Vol] 1.5 10*3/uL Normal 1.00-4.8 [facility] Comment on above: Performed By: #### T ACROLIMUS., CMP, CBC #### [facility] [address] [place] [address] [place] Lymphocytes/100 leukocytes i n Blood by Automated countOrdered By: Sharan Ayoub on 10-03-2023 Lymphocytes/100 WBC (Bld) 30.7 % Normal . [facility] Comment on above: Performed By: #### T ACROLIMUS., CMP, CBC #### [facility] [address] [place] [address] [place] MCH [Entitic mass] by Automa roderick countOrdered By: Sharan Ayoub on 10-03-2023 MCH (RBC) [Entitic mass] 31.6 pg Normal 27.5-35.2 [facility] Comment on above: Performed By: #### T ACROLIMUS., CMP, CBC #### [facility] [address] MCHC Auto (RBC) [Mass/Vol]Or dered By: Sharan Ayoub on 10-03-2023 MCHC (RBC) [Mass/Vol] 33.4 g/dL 32.5-35.6 [facility] MCV [Entitic volume] by Auto mated countOrdered By: Sharan Ayoub on 10-03-2023 MCV (RBC) [Entitic vol] 94.7 fL Normal 83.5-101 [facility] Comment on above: Performed By: #### T ACROLIMUS., CMP, CBC #### [facility] [address] [place] [address] Neutrophils [#/volume] in Bl ood by Automated countOrdered By: Sharan Ayoub on 10-03-2023 Neutrophils (Bld) [#/Vol] 2.8 10*3/uL Normal 1.8-7.7 [facility] Comment on above: Performed By: #### T ACROLIMUS., CMP, CBC #### [facility] [address] [place] [address] No Panel InformationOrdered By: Leighton Reilly on 10-03-2023 Isaac-Fair Quant PCR Plasma log10 N/A [facility] No Panel InformationOrdered By: Sharan Ayoub on 10-03-2023 Estimated GFR (CKD-EPI) > 60.0 mL/Min [facility] Creatinine Clearance (Chem N/A [facility] Nucleated erythrocytes [Pres ence] in Blood by Automated countOrdered By: Sharan Ayoub on 10-03-2023 Nucleated RBC Auto Ql (Bld) 0.1 /100{WBC} 0-0.5 [facility] Platelet mean volume [Entiti c volume] in Blood by Automated countOrdered By: Sharan Ayoub on 10-03-2023 Platelet mean volume (Bld) [Entitic vol] 11.5 fL High 6.6-10.1 [facility] Comment on above: Performed By: #### T ACROLIMUS., CMP, CBC #### [facility] [address] Platelets [#/volume] in Bloo d by Automated countOrdered By: Sharan Ayoub on 10-03-2023 Platelets (Bld) [#/Vol] 122 10*3/uL Low 150-450 [facility] Comment on above: Performed By: #### T ACROLIMUS., CMP, CBC #### [address] Potassium [Moles/volume] in Serum or PlasmaOrdered By: Sharan Ayoub on 10-03-2023 Potassium [Moles/Vol] 4.1 mmol/L Normal 3.5-5.1 [facility] Comment on above: Performed By: #### T ACROLIMUS., CMP, CBC #### [address] Protein [Mass/volume] in Ser um or PlasmaOrdered By: Sharan Ayoub on 10-03-2023 Protein [Mass/Vol] 6.9 g/dL Normal 6.4-8.9 [facility] Comment on above: Performed By: #### T ACROLIMUS., CMP, CBC #### [address] Serum globulin measurement b y calculation (mass/volume)Ordered By: Sharan Ayoub on 10-03-2023 Globulin (S) [Mass/Vol] 3.5 g/dL [facility] Comment on above: Performed By: #### T ACROLIMUS., CMP, CBC #### [facility] [address] [place] [address] Serum or plasma albumin/glob ulin mass ratioOrdered By: Sharan Ayoub on 10-03-2023 Albumin/Globulin [Mass ratio] 1.0 {ratio} [facility] Comment on above: Performed By: #### T ACROLIMUS., CMP, CBC #### [facility] [address] [place] [address] Serum or plasma anion gap de terminationOrdered By: Sharan Ayoub on 10-03-2023 Anion gap [Moles/Vol] 8.6 mmol/L Normal 6.0-15.0 [facility] Comment on above: Performed By: #### T ACROLIMUS., CMP, CBC #### [facility] [address] Sodium [Moles/volume] in Ser um or PlasmaOrdered By: Sharan Ayoub on 10-03-2023 Sodium [Moles/Vol] 139 mmol/L Normal 136-145 [facility] Comment on above: Performed By: #### T ACROLIMUS., CMP, CBC #### [facility] [address] Tacrolimuson 10-03-2023 Tacrolimus (Bld) [Mass/Vol] 9.5 ng/mL Normal <=15.0 [facility] Comment on above: Order Comment: NOTE: Result was obtained using a chemiluminescent microparticle immunoassay (CMIA) on the [employer] i system. Optimal therapeutic ranges for immunosuppressant drugs depend upon an individual patient's current clinical state, type of organ transplant, time post-transplant, co-administration of other immunosuppressants, and other clinical factors. The results of this test should be correlated with additional clinical and laboratory data before changes in treatment regimens are made. Performed By: #### 1 1253-2 #### NORMA Cherry ([id number]) [facility] ([facility]) [id number] [place] [address] Tacrolimus (Transplant) No C hgon 10-03-2023 Tacrolimus (Transplant) No Chg Sent to Ref Lab Normal [facility] Comment on above: Result Comment: PERF ORMED BY: [facility] [address] [place] [address] PATHOLOGIST MANAGER WINTER MISAEL FOX M.D. Performed By: #### T ACROLIMUS., CMP, CBC #### [address] Tacrolimus [Mass/volume] in BloodOrdered By: Sharan Ayoub on 10-03-2023 Tacrolimus (Bld) [Mass/Vol] Sent to ref lab [facility] Urea nitrogen [Mass/volume] in Serum or PlasmaOrdered By: Sharan Ayoub on 10-03-2023 Urea nitrogen [Mass/Vol] 17 mg/dL Normal 7-25 [facility] Comment on above: Performed By: #### T ACROLIMUS., CMP, CBC #### [address] Alanine aminotransferase [En zymatic activity/volume] in Serum or PlasmaOrdered By: Sharan Ayoub on 09-05-2023 ALT [Catalytic activity/Vol] 60 U/L High 7-52 [facility] Comment on above: Performed By: #### C MP, CBC, TACROLIMUS. #### [address] Albumin [Mass/volume] in Ser um or Plasma by Bromocresol green (BCG) dye binding methoOrdered By: Sharan Ayoub on 09-05-2023 Albumin BCG dye [Mass/Vol] 3.6 g/dL 3.5-5.7 [facility] Alkaline phosphatase [Enzyma tic activity/volume] in Serum or PlasmaOrdered By: Sharan Ayoub on 09-05-2023 ALP [Catalytic activity/Vol] 172 U/L High 34-104 [facility] Comment on above: Result Comment: PERF ORMED BY: [place] [address] PATHOLOGIST MANAGER WINTER MISAEL FOX M.D. Performed By: #### C MP, CBC, TACROLIMUS. #### [address] Aspartate aminotransferase [ Enzymatic activity/volume] in Serum or PlasmaOrdered By: Sharan Ayoub on 09-05-2023 AST [Catalytic activity/Vol] 59 U/L High 13-39 [facility] Comment on above: Performed By: #### C MP, CBC, TACROLIMUS. #### [address] Automated basophil %Ordered By: Sharan Ayoub on 09-05-2023 Basophils/100 WBC (Bld) 1.1 % Normal . [facility] Comment on above: Performed By: #### C MP, CBC, TACROLIMUS. #### [address] Automated basophil countOrde red By: Sharan Ayoub on 09-05-2023 Basophils (Bld) [#/Vol] 0.1 10*3/uL Normal 0.0-0.2 [facility] Comment on above: Result Comment: PERF ORMED BY: [place] [address] PATHOLOGIST MANAGER WINTER MISAEL FOX M.D. Performed By: #### C MP, CBC, TACROLIMUS. #### [address] Automated blood monocyte cou ntOrdered By: Sharan Ayoub on 09-05-2023 Monocytes (Bld) [#/Vol] 0.4 10*3/uL Normal 0.0-0.8 [facility] Comment on above: Performed By: #### C MP, CBC, TACROLIMUS. #### [address] Automated eosinophil %Ordere d By: Sharan Ayoub on 09-05-2023 Eosinophils/100 WBC (Bld) 3.0 % Normal . [facility] Comment on above: Performed By: #### C MP, CBC, TACROLIMUS. #### [address] Automated eosinophil countOr dered By: Sharan Ayoub on 09-05-2023 Eosinophils (Bld) [#/Vol] 0.2 10*3/uL Normal 0.0-0.45 [facility] Comment on above: Performed By: #### C MP, CBC, TACROLIMUS. #### [address] Automated monocyte %Ordered By: Sharan Ayoub on 09-05-2023 Monocytes/100 WBC (Bld) 7.3 % Normal . [facility] Comment on above: Performed By: #### C MP, CBC, TACROLIMUS. #### [place] [address] [place] Automated neutrophil %Ordere d By: Sharan Ayoub on 09-05-2023 Neutrophils/100 WBC (Bld) 48.6 % Normal . [facility] Comment on above: Performed By: #### C MP, CBC, TACROLIMUS. #### [facility] [address] Bilirubin.total [Mass/volume ] in Serum or PlasmaOrdered By: Sharan Ayoub on 09-05-2023 Bilirubin [Mass/Vol] 1.4 mg/dL High 0.3-1.0 [facility] Comment on above: Samples from [...] By: #### C MP, CBC, TACROLIMUS. #### [facility] [address] Calcium [Mass/volume] in Ser um or PlasmaOrdered By: Sharan Ayoub on 09-05-2023 Calcium [Mass/Vol] 9.2 mg/dL Normal 8.6-10.3 [facility] Comment on above: Performed By: #### C MP, CBC, TACROLIMUS. #### [facility] [address] [place] [address] [place] Carbon dioxide, total [Moles /volume] in Serum or PlasmaOrdered By: Sharan Ayoub on 09-05-2023 CO2 [Moles/Vol] 32.4 mmol/L High 21.0-31.0 [facility] Comment on above: Performed By: #### C MP, CBC, TACROLIMUS. #### [facility] [address] [place] [address] [place] Chloride [Moles/volume] in S kasi or PlasmaOrdered By: Sharan Ayoub on 09-05-2023 Chloride [Moles/Vol] 104 mmol/L Normal 98-107 [facility] Comment on above: Performed By: #### C MP, CBC, TACROLIMUS. #### [address] Complete Blood Count Auto Di ffon 09-05-2023 Mean Corpuscular HGB Conc 33.7 g/dL Normal 32.5-35.6 [facility] Comment on above: Performed By: #### C MP, CBC, TACROLIMUS. #### [address] NRBC% 0.1 /100{WBC} Normal 0-0.5 [facility] Comment on above: Performed By: #### C MP, CBC, TACROLIMUS. #### [address] Comprehensive Metabolic Pane sarah 09-05-2023 Albumin [Mass/Vol] 3.6 g/dL Normal 3.5-5.7 [facility] Comment on above: Performed By: #### C MP, CBC, TACROLIMUS. #### [address] GFR/1.73 sq M.predicted MDRD (S/P/Bld) [Vol rate/Area] mL/min/{1.73_m2} Normal [facility] Comment on above: Performed By: #### C MP, CBC, TACROLIMUS. #### [address] Creatinine [Mass/volume] in Serum or PlasmaOrdered By: Sharan Ayoub on 09-05-2023 Creatinine [Mass/Vol] 1.00 mg/dL Normal 0.70-1.30 [facility] Comment on above: Performed By: #### C MP, CBC, TACROLIMUS. #### [address] Erythrocyte distribution wid th [Ratio] by Automated countOrdered By: Sharan Ayoub on 09-05-2023 Erythrocyte distribution width (RBC) [Ratio] 13.7 % Normal 12.0-14.8 [facility] Comment on above: Performed By: #### C MP, CBC, TACROLIMUS. #### [facility] [address] Erythrocytes [#/volume] in B lood by Automated countOrdered By: Sharan Ayoub on 09-05-2023 RBC (Bld) [#/Vol] 4.30 10*6/uL Normal 3.90-5.60 [facility] Comment on above: Performed By: #### C MP, CBC, TACROLIMUS. #### [facility] [address] Glucose [Mass/volume] in Ser um or PlasmaOrdered By: Sharan Ayoub on 09-05-2023 Glucose [Mass/Vol] 206 mg/dL High 70-100 [facility] Comment on above: ADA recommended refe rence rangeRandom Glucose Reference Range is dependent on time and content of last meal. Glucose of more than 200 mg/dL in a nonstressed, ambulatory subject supports the diagnosis of Diabetes Mellitus. Result Comment: [place] om Glucose Reference Range is dependent on time and content of last meal. Glucose of more than 200 mg/dL in a nonstressed, ambulatory subject supports the diagnosis of Diabetes Mellitus. ADA recommended reference range Performed By: #### C MP, CBC, TACROLIMUS. #### [facility] [address] Hematocrit [Volume Fraction] of Blood by Automated countOrdered By: Sharan Ayoub on 09-05-2023 Hematocrit (Bld) [Volume fraction] 40.5 % Normal 38.8-50.0 [facility] Comment on above: Performed By: #### C MP, CBC, TACROLIMUS. #### [facility] [address] Hemoglobin [Mass/volume] in BloodOrdered By: Sharan Ayoub on 09-05-2023 Hemoglobin (Bld) [Mass/Vol] 13.7 g/dL Normal 13.0-17.0 [facility] Comment on above: Performed By: #### C MP, CBC, TACROLIMUS. #### [facility] [address] [place] [address] Leukocytes [#/volume] correc roderick for nucleated erythrocytes in Blood by Automated counOrdered By: Sharan Ayoub on 09-05-2023 WBC corrected for nucl RBC Auto (Bld) [#/Vol] 5.2 10*3/uL 4.1-10.5 [facility] Leukocytes [#/volume] in Blo od by Automated countOrdered By: Sharan Ayoub on 09-05-2023 WBC (Bld) [#/Vol] 5.2 10*3/uL Normal 4.1-10.5 [facility] Comment on above: Performed By: #### C MP, CBC, TACROLIMUS. #### [facility] [address] [place] [address] Lymphocytes [#/volume] in Bl ood by Automated countOrdered By: Sharan Ayoub on 09-05-2023 Lymphocytes (Bld) [#/Vol] 2.1 10*3/uL Normal 1.00-4.8 [facility] Comment on above: Performed By: #### C MP, CBC, TACROLIMUS. #### [facility] [address] [place] [address] Lymphocytes/100 leukocytes i n Blood by Automated countOrdered By: Sharan Ayoub on 09-05-2023 Lymphocytes/100 WBC (Bld) 40.0 % Normal . [facility] Comment on above: Performed By: #### C MP, CBC, TACROLIMUS. #### [facility] [address] [place] [address] MCH [Entitic mass] by Automa roderick countOrdered By: Sharan Ayoub on 09-05-2023 MCH (RBC) [Entitic mass] 31.8 pg Normal 27.5-35.2 [facility] Comment on above: Performed By: #### C MP, CBC, TACROLIMUS. #### [facility] [address] [place] [address] MCHC Auto (RBC) [Mass/Vol]Or dered By: Sharan Ayoub on 09-05-2023 MCHC (RBC) [Mass/Vol] 33.7 g/dL 32.5-35.6 [facility] MCV [Entitic volume] by Auto mated countOrdered By: Sharan Ayoub on 09-05-2023 MCV (RBC) [Entitic vol] 94.2 fL Normal 83.5-101 [facility] Comment on above: Performed By: #### C MP, CBC, TACROLIMUS. #### [facility] [address] [place] [address] Neutrophils [#/volume] in Bl ood by Automated countOrdered By: Sharan Ayoub on 09-05-2023 Neutrophils (Bld) [#/Vol] 2.5 10*3/uL Normal 1.8-7.7 [facility] Comment on above: Performed By: #### C MP, CBC, TACROLIMUS. #### [address] No Panel InformationOrdered By: Sharan Ayoub on 09-05-2023 Estimated GFR (CKD-EPI) > 60.0 mL/Min [facility] Creatinine Clearance (Chem N/A [facility] Nucleated erythrocytes [Pres ence] in Blood by Automated countOrdered By: Sharan Ayoub on 09-05-2023 Nucleated RBC Auto Ql (Bld) 0.1 /100{WBC} 0-0.5 [facility] Platelet mean volume [Entiti c volume] in Blood by Automated countOrdered By: Sharan Ayoub on 09-05-2023 Platelet mean volume (Bld) [Entitic vol] 10.3 fL High 6.6-10.1 [facility] Comment on above: Performed By: #### C MP, CBC, TACROLIMUS. #### [address] Platelets [#/volume] in Bloo d by Automated countOrdered By: Sharan Ayoub on 09-05-2023 Platelets (Bld) [#/Vol] 147 10*3/uL Low 150-450 [facility] Comment on above: Performed By: #### C MP, CBC, TACROLIMUS. #### [facility] [address] [place] [address] Potassium [Moles/volume] in Serum or PlasmaOrdered By: Sharan Ayoub on 09-05-2023 Potassium [Moles/Vol] 4.0 mmol/L Normal 3.5-5.1 [facility] Comment on above: Performed By: #### C MP, CBC, TACROLIMUS. #### [address] Protein [Mass/volume] in Ser um or PlasmaOrdered By: Sharan Ayoub on 09-05-2023 Protein [Mass/Vol] 7.2 g/dL Normal 6.4-8.9 [facility] Comment on above: Performed By: #### C MP, CBC, TACROLIMUS. #### [address] Serum globulin measurement b y calculation (mass/volume)Ordered By: Sharan Ayoub on 09-05-2023 Globulin (S) [Mass/Vol] 3.6 g/dL [facility] Comment on above: Performed By: #### C MP, CBC, TACROLIMUS. #### [address] Serum or plasma albumin/glob ulin mass ratioOrdered By: Sharan Ayoub on 09-05-2023 Albumin/Globulin [Mass ratio] 1.0 {ratio} [facility] Comment on above: Performed By: #### C MP, CBC, TACROLIMUS. #### [address] Serum or plasma anion gap de terminationOrdered By: Sharan Ayoub on 09-05-2023 Anion gap [Moles/Vol] 7.6 mmol/L Normal 6.0-15.0 [facility] Comment on above: Performed By: #### C MP, CBC, TACROLIMUS. #### [address] Sodium [Moles/volume] in Ser um or PlasmaOrdered By: Sharan Ayoub on 09-05-2023 Sodium [Moles/Vol] 140 mmol/L Normal 136-145 [facility] Comment on above: Performed By: #### C MP, CBC, TACROLIMUS. #### [facility] [address] [place] [address] Tacrolimuson 09-05-2023 Tacrolimus (Bld) [Mass/Vol] 10.5 ng/mL Normal <=15.0 [facility] Comment on above: Order Comment: NOTE: Result was obtained using a chemiluminescent microparticle immunoassay (CMIA) on the [employer] i system. Optimal therapeutic ranges for immunosuppressant drugs depend upon an individual patient's current clinical state, type of organ transplant, time post-transplant, co-administration of other immunosuppressants, and other clinical factors. The results of this test should be correlated with additional clinical and laboratory data before changes in treatment regimens are made. Performed By: #### 1 1253-2 #### NORMA Cherry ([id number]) [facility] ([facility]) [id number] [place] [address] Tacrolimus (Transplant) No C hgon 09-05-2023 Tacrolimus (Transplant) No Chg Sent to Ref Lab Normal [facility] Comment on above: Result Comment: PERF ORMED BY: [place] [address] PATHOLOGIST MANAGER WINTER MISAEL FOX M.D. Performed By: #### T ACROLIMUS., CMP, CBC #### [address] Tacrolimus [Mass/volume] in BloodOrdered By: Sharan Ayoub on 09-05-2023 Tacrolimus (Bld) [Mass/Vol] Sent to ref lab [facility] Urea nitrogen [Mass/volume] in Serum or PlasmaOrdered By: Sharan Ayoub on 09-05-2023 Urea nitrogen [Mass/Vol] 15 mg/dL Normal 7-25 [facility] Comment on above: Performed By: #### C MP, CBC, TACROLIMUS. #### [address] Whole blood quantitative Eps tein-Fair virus (EBV) DNA assay by PCROrdered By: Leighton Reilly on 09-05-2023 EBV DNA LÁZARO+probe (Bld) [#/Vol] See comment [facility] Comment on above: See report. Scanned copy available in EMR. Alanine aminotransferase [En zymatic activity/volume] in Serum or PlasmaOrdered By: Sharan Ayoub on 08-16-2023 ALT [Catalytic activity/Vol] 63 U/L High 7-52 [facility] Comment on above: Performed By: #### T ACROLIMUS., CMP, CBC #### [facility] [address] [place] [address] Albumin [Mass/volume] in Ser um or Plasma by Bromocresol green (BCG) dye binding methoOrdered By: Sharan Ayoub on 08-16-2023 Albumin BCG dye [Mass/Vol] 3.8 g/dL 3.5-5.7 [facility] Alkaline phosphatase [Enzyma tic activity/volume] in Serum or PlasmaOrdered By: Sharan Ayoub on 08-16-2023 ALP [Catalytic activity/Vol] 178 U/L High 34-104 [facility] Comment on above: Result Comment: PERF ORMED BY: [place] [address] PATHOLOGIST MANAGER WINTER MISAEL FOX M.D. Performed By: #### T ACROLIMUS., CMP, CBC #### [facility] [address] [place] [address] Aspartate aminotransferase [ Enzymatic activity/volume] in Serum or PlasmaOrdered By: Sharan Ayoub on 08-16-2023 AST [Catalytic activity/Vol] 62 U/L High 13-39 [facility] Comment on above: Performed By: #### T ACROLIMUS., CMP, CBC #### [facility] [address] [place] [address] Automated basophil %Ordered By: Sharan Ayoub on 08-16-2023 Basophils/100 WBC (Bld) 0.8 % Normal . [facility] Comment on above: Performed By: #### T ACROLIMUS., CMP, CBC #### [facility] [address] [place] [address] Automated basophil countOrde red By: Sharan Ayoub on 08-16-2023 Basophils (Bld) [#/Vol] 0.0 10*3/uL Normal 0.0-0.2 [facility] Comment on above: Result Comment: PERF ORMED BY: [place] [address] PATHOLOGIST MANAGER WINTER MISAEL FOX M.D. Performed By: #### T ACROLIMUS., CMP, CBC #### [address] Automated blood monocyte cou ntOrdered By: Sharan Ayoub on 08-16-2023 Monocytes (Bld) [#/Vol] 0.5 10*3/uL Normal 0.0-0.8 [facility] Comment on above: Performed By: #### T ACROLIMUS., CMP, CBC #### [address] Automated eosinophil %Ordere d By: Sharan Ayoub on 08-16-2023 Eosinophils/100 WBC (Bld) 2.0 % Normal . [facility] Comment on above: Performed By: #### T ACROLIMUS., CMP, CBC #### [address] Automated eosinophil countOr dered By: Sharan Ayoub on 08-16-2023 Eosinophils (Bld) [#/Vol] 0.1 10*3/uL Normal 0.0-0.45 [facility] Comment on above: Performed By: #### T ACROLIMUS., CMP, CBC #### [address] Automated monocyte %Ordered By: Sharan Ayoub on 08-16-2023 Monocytes/100 WBC (Bld) 10.1 % Normal . [facility] Comment on above: Performed By: #### T ACROLIMUS., CMP, CBC #### [address] Automated neutrophil %Ordere d By: Sharan Ayoub on 08-16-2023 Neutrophils/100 WBC (Bld) 49.9 % Normal . [facility] Comment on above: Performed By: #### T ACROLIMUS., CMP, CBC #### [facility] [address] [place] [address] [place] Bilirubin.total [Mass/volume ] in Serum or PlasmaOrdered By: Sharan Ayoub on 08-16-2023 Bilirubin [Mass/Vol] 1.7 mg/dL High 0.3-1.0 [facility] Comment on above: Samples from [...] By: #### T ACROLIMUS., CMP, CBC #### [facility] [address] [place] [address] [place] Calcium [Mass/volume] in Ser um or PlasmaOrdered By: Sharan Ayoub on 08-16-2023 Calcium [Mass/Vol] 9.4 mg/dL Normal 8.6-10.3 [facility] Comment on above: Performed By: #### T ACROLIMUS., CMP, CBC #### [facility] [address] [place] [address] [place] Carbon dioxide, total [Moles /volume] in Serum or PlasmaOrdered By: Sharan Ayoub on 08-16-2023 CO2 [Moles/Vol] 33.7 mmol/L High 21.0-31.0 [facility] Comment on above: Performed By: #### T ACROLIMUS., CMP, CBC #### [facility] [address] [place] [id number] [place] Chloride [Moles/volume] in S kasi or PlasmaOrdered By: Sharan Ayoub on 08-16-2023 Chloride [Moles/Vol] 104 mmol/L Normal 98-107 [facility] Comment on above: Performed By: #### T ACROLIMUS., CMP, CBC #### [facility] [address] [place] [address] Complete Blood Count Auto Di ffon 08-16-2023 Mean Corpuscular HGB Conc 33.7 g/dL Normal 32.5-35.6 [facility] Comment on above: Performed By: #### T ACROLIMUS., CMP, CBC #### [address] NRBC% 0.1 /100{WBC} Normal 0-0.5 [facility] Comment on above: Performed By: #### T ACROLIMUS., CMP, CBC #### [facility] [address] [place] [address] Comprehensive Metabolic Pane sarah 08-16-2023 Albumin [Mass/Vol] 3.8 g/dL Normal 3.5-5.7 [facility] Comment on above: Performed By: #### T ACROLIMUS., CMP, CBC #### [address] GFR/1.73 sq M.predicted MDRD (S/P/Bld) [Vol rate/Area] mL/min/{1.73_m2} Normal [facility] Comment on above: Performed By: #### T ACROLIMUS., CMP, CBC #### [facility] [address] [place] [address] Creatinine [Mass/volume] in Serum or PlasmaOrdered By: Sharan Ayoub on 08-16-2023 Creatinine [Mass/Vol] 0.96 mg/dL Normal 0.70-1.30 [facility] Comment on above: Performed By: #### T ACROLIMUS., CMP, CBC #### [facility] [address] [place] [address] Erythrocyte distribution wid th [Ratio] by Automated countOrdered By: Sharan Ayoub on 08-16-2023 Erythrocyte distribution width (RBC) [Ratio] 13.8 % Normal 12.0-14.8 [facility] Comment on above: Performed By: #### T ACROLIMUS., CMP, CBC #### [facility] [address] [place] [address] [place] Erythrocytes [#/volume] in B lood by Automated countOrdered By: Sharan Ayoub on 08-16-2023 RBC (Bld) [#/Vol] 4.21 10*6/uL Normal 3.90-5.60 [facility] Comment on above: Performed By: #### T ACROLIMUS., CMP, CBC #### [facility] [address] Glucose [Mass/volume] in Ser um or PlasmaOrdered By: Sharan Ayoub on 08-16-2023 Glucose [Mass/Vol] 91 mg/dL Normal 70-100 [facility] Comment on above: ADA recommended refe rence rangeRandom Glucose Reference Range is dependent on time and content of last meal. Glucose of more than 200 mg/dL in a nonstressed, ambulatory subject supports the diagnosis of Diabetes Mellitus. Result Comment: [place] Glucose Reference Range is dependent on time and content of last meal. Glucose of more than 200 mg/dL in a nonstressed, ambulatory subject supports the diagnosis of Diabetes Mellitus. ADA recommended reference range Performed By: #### T ACROLIMUS., CMP, CBC #### [facility] [address] [place] [address] [place] Hematocrit [Volume Fraction] of Blood by Automated countOrdered By: Sharan Ayoub on 08-16-2023 Hematocrit (Bld) [Volume fraction] 39.7 % Normal 38.8-50.0 [facility] Comment on above: Performed By: #### T ACROLIMUS., CMP, CBC #### [facility] [address] [place] [address] [place] Hemoglobin [Mass/volume] in BloodOrdered By: Sharan Ayoub on 08-16-2023 Hemoglobin (Bld) [Mass/Vol] 13.4 g/dL Normal 13.0-17.0 [facility] Comment on above: Performed By: #### T ACROLIMUS., CMP, CBC #### [facility] [address] [place] [address] [place] Leukocytes [#/volume] correc roderick for nucleated erythrocytes in Blood by Automated counOrdered By: Sharan Ayoub on 08-16-2023 WBC corrected for nucl RBC Auto (Bld) [#/Vol] 5.2 10*3/uL 4.1-10.5 [facility] Leukocytes [#/volume] in Blo od by Automated countOrdered By: Sharan Ayoub on 08-16-2023 WBC (Bld) [#/Vol] 5.2 10*3/uL Normal 4.1-10.5 [facility] Comment on above: Performed By: #### T ACROLIMUS., CMP, CBC #### [facility] [address] Lymphocytes [#/volume] in Bl ood by Automated countOrdered By: Sharan Ayoub on 08-16-2023 Lymphocytes (Bld) [#/Vol] 1.9 10*3/uL Normal 1.00-4.8 [facility] Comment on above: Performed By: #### T ACROLIMUS., CMP, CBC #### [facility] [address] [place] [address] [place] Lymphocytes/100 leukocytes i n Blood by Automated countOrdered By: Sharan Ayoub on 08-16-2023 Lymphocytes/100 WBC (Bld) 37.2 % Normal . [facility] Comment on above: Performed By: #### T ACROLIMUS., CMP, CBC #### [facility] [address] [place] [address] [place] MCH [Entitic mass] by Automa roderick countOrdered By: Sharan Ayoub on 08-16-2023 MCH (RBC) [Entitic mass] 31.8 pg Normal 27.5-35.2 [facility] Comment on above: Performed By: #### T ACROLIMUS., CMP, CBC #### [facility] [address] MCHC Auto (RBC) [Mass/Vol]Or dered By: Sharan Ayoub on 08-16-2023 MCHC (RBC) [Mass/Vol] 33.7 g/dL 32.5-35.6 [facility] MCV [Entitic volume] by Auto mated countOrdered By: Sharan Ayoub on 08-16-2023 MCV (RBC) [Entitic vol] 94.3 fL Normal 83.5-101 [facility] Comment on above: Performed By: #### T ACROLIMUS., CMP, CBC #### [facility] [address] [place] [address] [place] Neutrophils [#/volume] in Bl ood by Automated countOrdered By: Sharan Ayoub on 08-16-2023 Neutrophils (Bld) [#/Vol] 2.6 10*3/uL Normal 1.8-7.7 [facility] Comment on above: Performed By: #### T ACROLIMUS., CMP, CBC #### [facility] [address] No Panel InformationOrdered By: Sharan Ayoub on 08-16-2023 Estimated GFR (CKD-EPI) > 60.0 mL/Min [facility] Creatinine Clearance (Chem N/A [facility] Nucleated erythrocytes [Pres ence] in Blood by Automated countOrdered By: Sharan Ayoub on 08-16-2023 Nucleated RBC Auto Ql (Bld) 0.1 /100{WBC} 0-0.5 [facility] Platelet mean volume [Entiti c volume] in Blood by Automated countOrdered By: Sharan Ayoub on 08-16-2023 Platelet mean volume (Bld) [Entitic vol] 10.3 fL High 6.6-10.1 [facility] Comment on above: Performed By: #### T ACROLIMUS., CMP, CBC #### [facility] [address] [place] [address] [place] Platelets [#/volume] in Bloo d by Automated countOrdered By: Sharan Ayoub on 08-16-2023 Platelets (Bld) [#/Vol] 148 10*3/uL Low 150-450 [facility] Comment on above: Performed By: #### T ACROLIMUS., CMP, CBC #### [facility] [address] Potassium [Moles/volume] in Serum or PlasmaOrdered By: Sharan Ayoub on 08-16-2023 Potassium [Moles/Vol] 4.2 mmol/L Normal 3.5-5.1 [facility] Comment on above: Performed By: #### T ACROLIMUS., CMP, CBC #### [facility] [address] [place] [address] Protein [Mass/volume] in Ser um or PlasmaOrdered By: Sharan Ayoub on 08-16-2023 Protein [Mass/Vol] 7.1 g/dL Normal 6.4-8.9 [facility] Comment on above: Performed By: #### T ACROLIMUS., CMP, CBC #### [address] Serum globulin measurement b y calculation (mass/volume)Ordered By: Sharna Ayoub on 08-16-2023 Globulin (S) [Mass/Vol] 3.3 g/dL Normal [facility] Comment on above: Performed By: #### T ACROLIMUS., CMP, CBC #### [address] Serum or plasma albumin/glob ulin mass ratioOrdered By: Sharan Ayoub on 08-16-2023 Albumin/Globulin [Mass ratio] 1.2 {ratio} [facility] Comment on above: Performed By: #### T ACROLIMUS., CMP, CBC #### [address] Serum or plasma anion gap de terminationOrdered By: Sharan Ayoub on 08-16-2023 Anion gap [Moles/Vol] 7.5 mmol/L Normal 6.0-15.0 [facility] Comment on above: Performed By: #### T ACROLIMUS., CMP, CBC #### [facility] [address] [place] [address] [place] Sodium [Moles/volume] in Ser um or PlasmaOrdered By: Sharan Ayoub on 08-16-2023 Sodium [Moles/Vol] 141 mmol/L Normal 136-145 [facility] Comment on above: Performed By: #### T ACROLIMUS., CMP, CBC #### [facility] [address] [place] [address] Tacrolimuson 08-16-2023 Tacrolimus (Bld) [Mass/Vol] 10.9 ng/mL Normal <=15.0 [facility] Comment on above: Order Comment: NOTE: Result was obtained using a chemiluminescent microparticle immunoassay (CMIA) on the [employer] i system. Optimal therapeutic ranges for immunosuppressant drugs depend upon an individual patient's current clinical state, type of organ transplant, time post-transplant, co-administration of other immunosuppressants, and other clinical factors. The results of this test should be correlated with additional clinical and laboratory data before changes in treatment regimens are made. Performed By: #### 1 1253-2 #### NORMA Cherry ([id number]) [facility] ([facility]) [id number] [place] [address] Tacrolimus (Transplant) No C hgon 08-16-2023 Tacrolimus (Transplant) No Chg Sent to Ref Lab Normal [facility] Comment on above: Result Comment: PERF ORMED BY: [place] [address] PATHOLOGIST MANAGER WINTER MISAEL FOX M.D. Performed By: #### T ACROLIMUS., CMP, CBC #### [facility] [address] [place] [address] [place] Tacrolimus [Mass/volume] in BloodOrdered By: Sharan Ayoub on 08-16-2023 Tacrolimus (Bld) [Mass/Vol] Sent to ref lab [facility] Urea nitrogen [Mass/volume] in Serum or PlasmaOrdered By: Sharan Ayoub on 08-16-2023 Urea nitrogen [Mass/Vol] 18 mg/dL Normal 04-25 [facility] Comment on above: Performed By: #### T ACROLIMUS., CMP, CBC #### [facility] [address] [place] [address] [place] Alanine aminotransferase [En zymatic activity/volume] in Serum or PlasmaOrdered By: Sharan Ayoub on 07-18-2023 ALT [Catalytic activity/Vol] 69 U/L High [facility] Comment on above: Performed By: #### C MP, CBC, TACROLIMUS. #### [facility] [address] [place] [id number] [place] Albumin [Mass/volume] in Ser um or Plasma by Bromocresol green (BCG) dye binding methoOrdered By: Sharan Ayoub on 07-18-2023 Albumin BCG dye [Mass/Vol] 3.6 g/dL 3.5-5.7 [facility] Alkaline phosphatase [Enzyma tic activity/volume] in Serum or PlasmaOrdered By: Sharan Ayoub on 07-18-2023 ALP [Catalytic activity/Vol] 180 U/L High 34-104 [facility] Comment on above: Result Comment: PERF ORMED BY: [place] [address] PATHOLOGIST MANAGER WINTER MISAEL FOX M.D. Performed By: #### C MP, CBC, TACROLIMUS. #### [facility] [address] [place] [address] Aspartate aminotransferase [ Enzymatic activity/volume] in Serum or PlasmaOrdered By: Sharan Ayoub on 07-18-2023 AST [Catalytic activity/Vol] 53 U/L High 13-39 [facility] Comment on above: Performed By: #### C MP, CBC, TACROLIMUS. #### [facility] [address] [place] [address] Automated basophil %Ordered By: Sharan Ayoub on 07-18-2023 Basophils/100 WBC (Bld) 1.0 % Normal . [facility] Comment on above: Performed By: #### C MP, CBC, TACROLIMUS. #### [facility] [address] [place] [address] Automated basophil countOrde red By: Sharan Ayoub on 07-18-2023 Basophils (Bld) [#/Vol] 0.1 10*3/uL Normal 0.0-0.2 [facility] Comment on above: Result Comment: PERF ORMED BY: [place] [address] PATHOLOGIST MANAGER WINTER MISAEL FOX M.D. Performed By: #### C MP, CBC, TACROLIMUS. #### [facility] [address] [place] [address] Automated blood monocyte cou ntOrdered By: Sharan Ayoub on 07-18-2023 Monocytes (Bld) [#/Vol] 0.4 10*3/uL Normal 0.0-0.8 [facility] Comment on above: Performed By: #### C MP, CBC, TACROLIMUS. #### [address] Automated eosinophil %Ordere d By: Sharan Ayoub on 07-18-2023 Eosinophils/100 WBC (Bld) 2.4 % Normal . [facility] Comment on above: Performed By: #### C MP, CBC, TACROLIMUS. #### [address] Automated eosinophil countOr dered By: Sharan Ayoub on 07-18-2023 Eosinophils (Bld) [#/Vol] 0.1 10*3/uL Normal 0.0-0.45 [facility] Comment on above: Performed By: #### C MP, CBC, TACROLIMUS. #### [address] Automated monocyte %Ordered By: Sharan Ayoub on 07-18-2023 Monocytes/100 WBC (Bld) 7.3 % Normal . [facility] Comment on above: Performed By: #### C MP, CBC, TACROLIMUS. #### [address] Automated neutrophil %Ordere d By: Sharan Ayoub on 07-18-2023 Neutrophils/100 WBC (Bld) 55.6 % Normal . [facility] Comment on above: Performed By: #### C MP, CBC, TACROLIMUS. #### [address] Bilirubin.total [Mass/volume ] in Serum or PlasmaOrdered By: Sharan Ayoub on 07-18-2023 Bilirubin [Mass/Vol] 1.2 mg/dL High 0.3-1.0 [facility] Comment on above: Performed By: #### C MP, CBC, TACROLIMUS. #### [address] Calcium [Mass/volume] in Ser um or PlasmaOrdered By: Sharan Ayoub on 07-18-2023 Calcium [Mass/Vol] 8.9 mg/dL Normal 8.6-10.3 [facility] Comment on above: Performed By: #### C MP, CBC, TACROLIMUS. #### [address] Carbon dioxide, total [Moles /volume] in Serum or PlasmaOrdered By: Sharan Ayoub on 07-18-2023 CO2 [Moles/Vol] 32.5 mmol/L High 21.0-31.0 [facility] Comment on above: Performed By: #### C MP, CBC, TACROLIMUS. #### [address] Chloride [Moles/volume] in S kasi or PlasmaOrdered By: Sharan Ayoub on 07-18-2023 Chloride [Moles/Vol] 103 mmol/L Normal 98-107 [facility] Comment on above: Performed By: #### C MP, CBC, TACROLIMUS. #### [address] Complete Blood Count Auto Di ffon 07-18-2023 Mean Corpuscular HGB Conc 33.7 g/dL Normal 32.5-35.6 [facility] Comment on above: Performed By: #### C MP, CBC, TACROLIMUS. #### [address] NRBC% 0.2 /100{WBC} Normal 0-0.5 [facility] Comment on above: Performed By: #### C MP, CBC, TACROLIMUS. #### [address] Comprehensive Metabolic Pane sarah 07-18-2023 Albumin [Mass/Vol] 3.6 g/dL Normal 3.5-5.7 [facility] Comment on above: Performed By: #### C MP, CBC, TACROLIMUS. #### [address] GFR/1.73 sq M.predicted MDRD (S/P/Bld) [Vol rate/Area] mL/min/{1.73_m2} Normal [facility] Comment on above: Performed By: #### C MP, CBC, TACROLIMUS. #### [address] Creatinine [Mass/volume] in Serum or PlasmaOrdered By: Sharan Ayoub on 07-18-2023 Creatinine [Mass/Vol] 0.95 mg/dL Normal 0.70-1.30 [facility] Comment on above: Performed By: #### C MP, CBC, TACROLIMUS. #### [address] EBV Quant DNA PCR, Whole Blo odon 07-18-2023 EBV PCR Qnt Log 10 3.254 Normal . [facility] Comment on above: Result Comment: Resu lt Units: [id number]/mL Performed at: [address] [id number] House Carpenter Helper: Thierry Currie MD, Phone: [phone] PERFORMED BY: [place] [address] PATHOLOGIST MANAGER WINTER MISAEL FOX M.D. Performed By: #### T ACROLIMUS., CMP, CBC #### [address] EBV PCR Quant 1793 Normal Negative [facility] Comment on above: Result Comment: The quantitative range of this assay is 100 to 1 million copies/mL. This test was developed and its performance characteristics determined by [employer]. It has not been cleared or approved by the Food and Drug Administration. The FDA has determined that such clearance or approval is not necessary. Performed By: #### T ACROLIMUS., CMP, CBC #### [address] Erythrocyte distribution wid th [Ratio] by Automated countOrdered By: Sharan Ayoub on 07-18-2023 Erythrocyte distribution width (RBC) [Ratio] 14.0 % Normal 12.0-14.8 [facility] Comment on above: Performed By: #### C MP, CBC, TACROLIMUS. #### [facility] [address] Erythrocytes [#/volume] in B lood by Automated countOrdered By: Sharan Ayoub on 07-18-2023 RBC (Bld) [#/Vol] 4.30 10*6/uL Normal 3.90-5.60 [facility] Comment on above: Performed By: #### C MP, CBC, TACROLIMUS. #### [facility] [address] Glucose [Mass/volume] in Ser um or PlasmaOrdered By: Sharan Ayoub on 07-18-2023 Glucose [Mass/Vol] 369 mg/dL High 70-100 [facility] Comment on above: ADA recommended refe rence rangeRandom Glucose Reference Range is dependent on time and content of last meal. Glucose of more than 200 mg/dL in a nonstressed, ambulatory subject supports the diagnosis of Diabetes Mellitus. Result Comment: [place] [facility] Glucose Reference Range is dependent on time and content of last meal. Glucose of more than 200 mg/dL in a nonstressed, ambulatory subject supports the diagnosis of Diabetes Mellitus. ADA recommended reference range Performed By: #### C MP, CBC, TACROLIMUS. #### [facility] [address] Hematocrit [Volume Fraction] of Blood by Automated countOrdered By: Sharan Ayoub on 07-18-2023 Hematocrit (Bld) [Volume fraction] 40.5 % Normal 38.8-50.0 [facility] Comment on above: Performed By: #### C MP, CBC, TACROLIMUS. #### [facility] [address] Hemoglobin [Mass/volume] in BloodOrdered By: Sharan Ayoub on 07-18-2023 Hemoglobin (Bld) [Mass/Vol] 13.7 g/dL Normal 13.0-17.0 [facility] Comment on above: Performed By: #### C MP, CBC, TACROLIMUS. #### [facility] [address] [place] [address] [place] Leukocytes [#/volume] correc roderick for nucleated erythrocytes in Blood by Automated counOrdered By: Sharan Ayoub on 07-18-2023 WBC corrected for nucl RBC Auto (Bld) [#/Vol] 5.4 10*3/uL 4.1-10.5 [facility] Leukocytes [#/volume] in Blo od by Automated countOrdered By: Sharan Ayoub on 07-18-2023 WBC (Bld) [#/Vol] 5.4 10*3/uL Normal 4.1-10.5 [facility] Comment on above: Performed By: #### C MP, CBC, TACROLIMUS. #### [facility] [address] [place] [address] [place] Lymphocytes [#/volume] in Bl ood by Automated countOrdered By: Sharan Ayoub on 07-18-2023 Lymphocytes (Bld) [#/Vol] 1.8 10*3/uL Normal 1.00-4.8 [facility] Comment on above: Performed By: #### C MP, CBC, TACROLIMUS. #### [facility] [address] [place] [address] [place] Lymphocytes/100 leukocytes i n Blood by Automated countOrdered By: Sharan Ayoub on 07-18-2023 Lymphocytes/100 WBC (Bld) 33.7 % Normal . [facility] Comment on above: Performed By: #### C MP, CBC, TACROLIMUS. #### [facility] [address] [place] [address] [place] MCH [Entitic mass] by Automa roderick countOrdered By: Sharan Ayoub on 07-18-2023 MCH (RBC) [Entitic mass] 31.8 pg Normal 27.5-35.2 [facility] Comment on above: Performed By: #### C MP, CBC, TACROLIMUS. #### [facility] [address] [place] [address] MCHC Auto (RBC) [Mass/Vol]Or dered By: Sharan Ayoub on 07-18-2023 MCHC (RBC) [Mass/Vol] 33.7 g/dL 32.5-35.6 [facility] MCV [Entitic volume] by Auto mated countOrdered By: Sharan Ayoub on 07-18-2023 MCV (RBC) [Entitic vol] 94.2 fL Normal 83.5-101 [facility] Comment on above: Performed By: #### C MP, CBC, TACROLIMUS. #### [facility] [address] [place] [address] Neutrophils [#/volume] in Bl ood by Automated countOrdered By: Sharan Ayoub on 07-18-2023 Neutrophils (Bld) [#/Vol] 3.0 10*3/uL Normal 1.8-7.7 [facility] Comment on above: Performed By: #### C MP, CBC, TACROLIMUS. #### [facility] [address] [place] [address] No Panel InformationOrdered By: Leighton Reilly on 07-18-2023 [place] DNA, Quant (PCR) log10 3.254 . [facility] Comment on above: Result Units: log10c opy/mLPerformed at: [facility] - [facility] [address] [id number] Director: Thierry Currie MD, Phone: [phone] No Panel InformationOrdered By: Sharan Ayoub on 07-18-2023 Estimated GFR (CKD-EPI) > 60.0 mL/Min [facility] Creatinine Clearance (Chem N/A [facility] Nucleated erythrocytes [Pres ence] in Blood by Automated countOrdered By: Sharan Ayoub on 07-18-2023 Nucleated RBC Auto Ql (Bld) 0.2 /100{WBC} 0-0.5 [facility] Platelet mean volume [Entiti c volume] in Blood by Automated countOrdered By: Sharan Ayoub on 07-18-2023 Platelet mean volume (Bld) [Entitic vol] 10.7 fL High 6.6-10.1 [facility] Comment on above: Performed By: #### C MP, CBC, TACROLIMUS. #### [facility] [address] [place] [address] Platelets [#/volume] in Bloo d by Automated countOrdered By: Sharan Ayoub on 07-18-2023 Platelets (Bld) [#/Vol] 129 10*3/uL Low 150-450 [facility] Comment on above: Performed By: #### C MP, CBC, TACROLIMUS. #### [address] Potassium [Moles/volume] in Serum or PlasmaOrdered By: Sharan Ayoub on 07-18-2023 Potassium [Moles/Vol] 4.2 mmol/L Normal 3.5-5.1 [facility] Comment on above: Performed By: #### C MP, CBC, TACROLIMUS. #### [address] Protein [Mass/volume] in Ser um or PlasmaOrdered By: Sharan Ayoub on 07-18-2023 Protein [Mass/Vol] 7.1 g/dL Normal 6.4-8.9 [facility] Comment on above: Performed By: #### C MP, CBC, TACROLIMUS. #### [address] Serum globulin measurement b y calculation (mass/volume)Ordered By: Sharan Ayoub on 07-18-2023 Globulin (S) [Mass/Vol] 3.5 g/dL [facility] Comment on above: Performed By: #### C MP, CBC, TACROLIMUS. #### [address] Serum or plasma albumin/glob ulin mass ratioOrdered By: Sharan Ayoub on 07-18-2023 Albumin/Globulin [Mass ratio] 1.0 {ratio} [facility] Comment on above: Performed By: #### C MP, CBC, TACROLIMUS. #### [address] Serum or plasma anion gap de terminationOrdered By: Sharan Ayoub on 07-18-2023 Anion gap [Moles/Vol] 7.7 mmol/L Normal 6.0-15.0 [facility] Comment on above: Performed By: #### C MP, CBC, TACROLIMUS. #### [facility] [address] Sodium [Moles/volume] in Ser um or PlasmaOrdered By: Sharan Ayoub on 07-18-2023 Sodium [Moles/Vol] 139 mmol/L Normal 136-145 [facility] Comment on above: Performed By: #### C MP, CBC, TACROLIMUS. #### [facility] [address] Tacrolimuson 07-18-2023 Tacrolimus (Bld) [Mass/Vol] 14.5 ng/mL Normal <=15.0 [facility] Comment on above: Order Comment: NOTE: Result was obtained using a chemiluminescent microparticle immunoassay (CMIA) on the [employer] i system. Optimal therapeutic ranges for immunosuppressant drugs depend upon an individual patient's current clinical state, type of organ transplant, time post-transplant, co-administration of other immunosuppressants, and other clinical factors. The results of this test should be correlated with additional clinical and laboratory data before changes in treatment regimens are made. Performed By: #### 1 1253-2 #### NORMA Cherry ([id number]) [facility] ([facility]) [id number] [place] [address] Tacrolimus (Transplant) No C hgon 07-18-2023 Tacrolimus (Transplant) No Chg Sent to Ref Lab Normal [facility] Comment on above: Result Comment: PERF ORMED BY: [place] [address] PATHOLOGIST MANAGER WINTER MISAEL FOX M.D. Performed By: #### C MP, CBC, TACROLIMUS. #### [facility] [address] Tacrolimus [Mass/volume] in BloodOrdered By: Sharan Ayoub on 07-18-2023 Tacrolimus (Bld) [Mass/Vol] Sent to ref lab [facility] Urea nitrogen [Mass/volume] in Serum or PlasmaOrdered By: Sharan Ayoub on 07-18-2023 Urea nitrogen [Mass/Vol] 15 mg/dL Normal 7-25 [facility] Comment on above: Performed By: #### C MP, CBC, TACROLIMUS. #### [facility] [address] Whole blood quantitative Eps tein-Fair virus (EBV) DNA assay by PCROrdered By: Leighton Reilly on 07-18-2023 EBV DNA LÁZARO+probe (Bld) [#/Vol] 1793 copies/mL Negative [facility] Comment on above: The quantitative ran ge of this assay is 100 to 1 millioncopies/mL.This test was developed and its performance characteristicsdetermined by [employer]. It has not been cleared or approvedby the Food and Drug Administration. The FDA hasdetermined that such clearance or approval is notnecessary. TACROLIMUSon 06-10-2023 Tacrolimus (Bld) [Mass/Vol] 15.8 ng/mL High 2.0 - 15.0 [facility] Comment on above: Result Comment: NOTE : Result was obtained using a chemiluminescent microparticle immunoassay (CMIA) on the [employer] i system. Optimal therapeutic ranges for immuno- suppressant drugs depend upon an individual patient's current clinical state, type of organ transplant, time post-transplant, co-administration of other immunosuppressants, and other clinical factors. The results of this test should be correlated with additional clinical and laboratory data before changes in treatment regimens are made. Performed By: #### F K506 #### [facility] [address] [place] [address] Alanine aminotransferase [En zymatic activity/volume] in Serum or PlasmaOrdered By: Sharan Ayoub on 06-09-2023 ALT [Catalytic activity/Vol] 62 U/L 7-52 [facility] Albumin [Mass/volume] in Ser um or Plasma by Bromocresol green (BCG) dye binding methoOrdered By: Sharan Ayoub on 06-09-2023 Albumin BCG dye [Mass/Vol] 3.6 g/dL 3.5-5.7 [facility] Alkaline phosphatase [Enzyma tic activity/volume] in Serum or PlasmaOrdered By: Sharan Ayoub on 06-09-2023 ALP [Catalytic activity/Vol] 185 U/L 34-104 [facility] Aspartate aminotransferase [ Enzymatic activity/volume] in Serum or PlasmaOrdered By: Sharan Ayoub on 06-09-2023 AST [Catalytic activity/Vol] 67 U/L 13-39 [facility] Basophils Auto (Bld) [#/Vol] Ordered By: Sharan Ayoub on 06-09-2023 Basophils (Bld) [#/Vol] 0.0 10*3/uL 0.0-0.2 [facility] Basophils/100 WBC Auto (Bld) Ordered By: Sharan Ayoub on 06-09-2023 Basophils/100 WBC (Bld) 0.5 % . [facility] Bilirubin.total [Mass/volume ] in Serum or PlasmaOrdered By: Sharan Ayoub on 06-09-2023 Bilirubin [Mass/Vol] 1.4 mg/dL 0.3-1.0 [facility] Comment on above: Samples from patient s who have taken Naproxen have shown spurious elevation in Total Bilirubin levels. A metabolite of Naproxen, O-desmethylnaproxen, has been shown to interfere with the Harlan-Uriel method for measuring Total Bilirubin. Calcium [Mass/volume] in Ser um or PlasmaOrdered By: Sharan Ayoub on 06-09-2023 Calcium [Mass/Vol] 8.8 mg/dL 8.6-10.3 [facility] Carbon dioxide, total [Moles /volume] in Serum or PlasmaOrdered By: Sharan Ayoub on 06-09-2023 CO2 [Moles/Vol] 31.0 mmol/L 21.0-31.0 [facility] Chloride [Moles/volume] in S kasi or PlasmaOrdered By: Sharan Ayoub on 06-09-2023 Chloride [Moles/Vol] 105 mmol/L 98-107 [facility] Cholesterol [Mass/volume] in Serum or PlasmaOrdered By: Ember Tejeda on 06-09-2023 Cholesterol [Mass/Vol] 211 mg/dL 140-200 [facility] Comment on above: Chol less than 200 m g/dl low riskChol 201-239 mg/dl borderline riskChol 240 mg/dl and greater high risk Cholesterol in LDL Calc [Mas s/Vol]Ordered By: Ember Tejeda on 06-09-2023 Cholesterol in LDL [Mass/Vol] 107 mg/dL 0-100 [facility] Comment on above: LDL ATP III CLASSIFI CATIONLDL less than 100 mg/dL OptimalLDL 100-129 mg/dL Near or above optimalLDL 130-159 mg/dL Borderline highLDL 160-189 mg/dL HighLDL greater than 189 mg/dL Very high Cholesterol in VLDL Calc [Ma ss/Vol]Ordered By: Ember Tejeda on 06-09-2023 Cholesterol in VLDL [Mass/Vol] 16 mg/dL [facility] Creatinine [Mass/volume] in Serum or PlasmaOrdered By: Sharan Ayoub on 06-09-2023 Creatinine [Mass/Vol] 0.93 mg/dL 0.70-1.30 [facility] Eosinophils Auto (Bld) [#/Vo l]Ordered By: Sharan Ayoub on 06-09-2023 Eosinophils (Bld) [#/Vol] 0.1 10*3/uL 0.0-0.45 [facility] Eosinophils/100 WBC Auto (Bl d)Ordered By: Sharan Ayoub on 06-09-2023 Eosinophils/100 WBC (Bld) 1.5 % . [facility] Isaac Fair virus DNA [#/vo lume] (viral load) in Serum or Plasma by LÁZARO with probe dOrdered By: Leighton Reilly on 06-09-2023 EBV DNA LÁZARO+probe [#/Vol] Negative Negative [facility] Comment on above: No EBV DNA detected. The linear range of this assay is 35 - 100,000,000 IU/mLPerformed at: - Lab[address] [id number] Director: Thierry Currie MD, Phone: [phone] Erythrocyte distribution wid th Auto (RBC) [Ratio]Ordered By: Sharan Ayoub on 06-09-2023 Erythrocyte distribution width (RBC) [Ratio] 14.0 % 12.0-14.8 [facility] Globulin Calc (S) [Mass/Vol] Ordered By: Sharan Ayoub on 06-09-2023 Globulin (S) [Mass/Vol] 3.1 g/dL [facility] Glucose [Mass/volume] in Ser um or PlasmaOrdered By: Sharan Ayoub on 06-09-2023 Glucose [Mass/Vol] 149 mg/dL 70-100 [facility] Comment on above: ADA recommended refe rence rangeRandom Glucose Reference Range is dependent on time and content of last meal. Glucose of more than 200 mg/dL in a nonstressed, ambulatory subject supports the diagnosis of Diabetes Mellitus. Hematocrit Auto (Bld) [Volum e fraction]Ordered By: Sharan Ayoub on 06-09-2023 Hematocrit (Bld) [Volume fraction] 40.7 % 38.8-50.0 [facility] Hemoglobin [Mass/volume] in BloodOrdered By: Sharan Ayoub on 06-09-2023 Hemoglobin (Bld) [Mass/Vol] 13.5 g/dL 13.0-17.0 [facility] Leukocytes [#/volume] correc roderick for nucleated erythrocytes in Blood by Automated counOrdered By: Sharan Ayoub on 06-09-2023 WBC corrected for nucl RBC Auto (Bld) [#/Vol] 3.8 10*3/uL 4.1-10.5 [facility] Lymphocytes Auto (Bld) [#/Vo l]Ordered By: Sharan Ayoub on 06-09-2023 Lymphocytes (Bld) [#/Vol] 2.0 10*3/uL 1.00-4.8 [facility] Lymphocytes/100 WBC Auto (Bl d)Ordered By: Sharan Ayoub on 06-09-2023 Lymphocytes/100 WBC (Bld) 51.4 % . [facility] MCH Auto (RBC) [Entitic mass ]Ordered By: Sharan Ayoub on 06-09-2023 MCH (RBC) [Entitic mass] 31.1 pg 27.5-35.2 [facility] MCHC Auto (RBC) [Mass/Vol]Or dered By: Sharan Ayoub on 06-09-2023 MCHC (RBC) [Mass/Vol] 33.2 g/dL 32.5-35.6 [facility] MCV Auto (RBC) [Entitic vol] Ordered By: Sharan Ayoub on 06-09-2023 MCV (RBC) [Entitic vol] 93.7 fL 83.5-101 [facility] Monocytes Auto (Bld) [#/Vol] Ordered By: Sharan Ayoub on 06-09-2023 Monocytes (Bld) [#/Vol] 0.6 10*3/uL 0.0-0.8 [facility] Monocytes/100 WBC Auto (Bld) Ordered By: Sharan Ayoub on 06-09-2023 Monocytes/100 WBC (Bld) 16.0 % . [facility] Neutrophils Auto (Bld) [#/Vo l]Ordered By: Sharan Ayoub on 06-09-2023 Neutrophils (Bld) [#/Vol] 1.2 10*3/uL 1.8-7.7 [facility] Neutrophils/100 WBC Auto (Bl d)Ordered By: Sharan Ayoub on 06-09-2023 Neutrophils/100 WBC (Bld) 30.6 % . [facility] No Panel InformationOrdered By: Leighton Reilly on 06-09-2023 Isaac-Fair Quant PCR Plasma log10 N/A [facility] No Panel InformationOrdered By: Sharan Ayoub on 06-09-2023 Estimated GFR (CKD-EPI) > 60.0 mL/Min [facility] Creatinine Clearance (Chem N/A [facility] Tacrolimus (Prograf) Level Sent to [facility] Nucleated erythrocytes [Pres ence] in Blood by Automated countOrdered By: Sharan Ayoub on 06-09-2023 Nucleated RBC Auto Ql (Bld) 0.1 /100{WBC} 0-0.5 [facility] Platelet mean volume Auto (B ld) [Entitic vol]Ordered By: Sharan Ayoub on 06-09-2023 Platelet mean volume (Bld) [Entitic vol] 10.9 fL 6.6-10.1 [facility] Platelets Auto (Bld) [#/Vol] Ordered By: Sharan Ayoub on 06-09-2023 Platelets (Bld) [#/Vol] 129 10*3/uL 150-450 [facility] Potassium [Moles/volume] in Serum or PlasmaOrdered By: Sharan Ayoub on 06-09-2023 Potassium [Moles/Vol] 4.1 mmol/L 3.5-5.1 [facility] Protein [Mass/volume] in Ser um or PlasmaOrdered By: Sharan Ayoub on 06-09-2023 Protein [Mass/Vol] 6.7 g/dL 6.4-8.9 [facility] RBC Auto (Bld) [#/Vol]Ordere d By: Sharan Ayoub on 06-09-2023 RBC (Bld) [#/Vol] 4.35 10*6/uL 3.90-5.60 [facility] Serum or plasma albumin/glob ulin mass ratioOrdered By: Sharan Ayoub on 06-09-2023 Albumin/Globulin [Mass ratio] 1.2 {ratio} [facility] Serum or plasma anion gap de terminationOrdered By: Sharan Ayoub on 06-09-2023 Anion gap [Moles/Vol] 8.1 mmol/L 6.0-15.0 [facility] Serum or plasma high density lipoprotein (HDL) cholesterol measurementOrdered By: Ember Tejeda on 06-09-2023 Cholesterol in HDL [Mass/Vol] 87 mg/dL 23-92 [facility] Comment on above: HDL CHOL ATP-III CLA SSIFICATION Cardiovascular RiskHDL > or equal to 60 mg/dL LOWHDL < 40 mg/dL HIGH Serum or plasma total choles terol/high density lipoprotein (HDL) cholesterol mass ratOrdered By: Ember Tejeda on 06-09-2023 Cholesterol.total/Cho lesterol in HDL [Mass ratio] 2.4 {ratio} <5.0 [facility] Sodium [Moles/volume] in Ser um or PlasmaOrdered By: Sharan Ayoub on 06-09-2023 Sodium [Moles/Vol] 140 mmol/L 136-145 [facility] Tacrolimuson 06-09-2023 Tacrolimus (Bld) [Mass/Vol] 15.8 ng/mL above high threshold 2.0 - 15.0 [facility] [address] Work Phone: Comment on above: NOTE: Result was obt ained using a chemiluminescent microparticle immunoassay (CMIA) on the [employer] i system.Optimal therapeutic ranges for immuno-suppressant drugs depend upon an individualpatient's current clinical state, type oforgan transplant, time post-transplant,co-administration of other immunosuppressants,and other clinical factors. The results ofthis test should be correlated with additionalclinical and laboratory data before changesin treatment regimens are made. Thyrotropin [Units/volume] i n Serum or PlasmaOrdered By: Ember Tejeda on 06-09-2023 TSH Qn 1.50 m[IU]/L 0.45-5.33 [facility] Triglyceride [Mass/volume] i n Serum or PlasmaOrdered By: Ember Tejeda on 06-09-2023 Triglyceride [Mass/Vol] 84 mg/dL 0-149 [facility] Comment on above: TRIG ATP III CLASSIF ICATIONTRIG less than 150 mg/dL NormalTRIG 150-199 mg/dL Borderline highTRIG 200-500 mg/dL High TRIG greater than 500 mg/dL Very highStandard traceable to the Center for Disease Conrtrol and Prevention (CDC) test method. Urea nitrogen [Mass/volume] in Serum or PlasmaOrdered By: Sharan Ayoub on 06-09-2023 Urea nitrogen [Mass/Vol] 14 mg/dL 7-25 [facility] WBC Auto (Bld) [#/Vol]Ordere d By: Sharan Ayoub on 06-09-2023 WBC (Bld) [#/Vol] 3.8 10*3/uL 4.1-10.5 [facility] TACROLIMUSon 05-24-2023 Tacrolimus (Bld) [Mass/Vol] 7.7 ng/mL Normal 2.0 - 15.0 [facility] Comment on above: Result Comment: NOTE : Result was obtained using a chemiluminescent microparticle immunoassay (CMIA) on the [employer] i system. Optimal therapeutic ranges for immuno- suppressant drugs depend upon an individual patient's current clinical state, type of organ transplant, time post-transplant, co-administration of other immunosuppressants, and other clinical factors. The results of this test should be correlated with additional clinical and laboratory data before changes in treatment regimens are made. Performed By: #### F [id number] #### [facility] [address] [place] [address] Tacrolimuson 05-23-2023 Tacrolimus (Bld) [Mass/Vol] 7.7 ng/mL 2.0 - 15.0 [facility]A [facility] Work Phone: Comment on above: NOTE: Result was obt ained using a chemiluminescent microparticle immunoassay (CMIA) on the [employer] i system.Optimal therapeutic ranges for immuno-suppressant drugs depend upon an individualpatient's current clinical state, type oforgan transplant, time post-transplant,co-administration of other immunosuppressants,and other clinical factors. The results ofthis test should be correlated with additionalclinical and laboratory data before changesin treatment regimens are made. Alanine aminotransferase [En zymatic activity/volume] in Serum or PlasmaOrdered By: Sharan Ayoub on 05-19-2023 ALT [Catalytic activity/Vol] 70 U/L 7-52 [facility] Albumin [Mass/volume] in Ser um or Plasma by Bromocresol green (BCG) dye binding methoOrdered By: Sharan Ayoub on 05-19-2023 Albumin BCG dye [Mass/Vol] 3.5 g/dL 3.5-5.7 [facility] Alkaline phosphatase [Enzyma tic activity/volume] in Serum or PlasmaOrdered By: Sharan Ayoub on 05-19-2023 ALP [Catalytic activity/Vol] 173 U/L 34-104 [facility] Aspartate aminotransferase [ Enzymatic activity/volume] in Serum or PlasmaOrdered By: Sharan Ayoub on 05-19-2023 AST [Catalytic activity/Vol] 86 U/L 13-39 [facility] Basophils Auto (Bld) [#/Vol] Ordered By: Sharan Ayoub on 05-19-2023 Basophils (Bld) [#/Vol] 0.1 10*3/uL 0.0-0.2 [facility] Basophils/100 WBC Auto (Bld) Ordered By: Sharan Ayoub on 05-19-2023 Basophils/100 WBC (Bld) 1.3 % . [facility] Bilirubin.total [Mass/volume ] in Serum or PlasmaOrdered By: Sharan Ayoub on 05-19-2023 Bilirubin [Mass/Vol] 2.5 mg/dL 0.3-1.0 [facility] Comment on above: Samples from patient s who have taken Naproxen have shown spurious elevation in Total Bilirubin levels. A metabolite of Naproxen, O-desmethylnaproxen, has been shown to interfere with the Harlan-Uriel method for measuring Total Bilirubin. Calcium [Mass/volume] in Ser um or PlasmaOrdered By: Sharan Ayoub on 05-19-2023 Calcium [Mass/Vol] 9.2 mg/dL 8.6-10.3 [facility] Carbon dioxide, total [Moles /volume] in Serum or PlasmaOrdered By: Sharan Ayoub on 05-19-2023 CO2 [Moles/Vol] 30.1 mmol/L 21.0-31.0 [facility] Chloride [Moles/volume] in S kasi or PlasmaOrdered By: Sharan Ayoub on 05-19-2023 Chloride [Moles/Vol] 103 mmol/L 98-107 [facility] Creatinine [Mass/volume] in Serum or PlasmaOrdered By: Sharan Ayoub on 05-19-2023 Creatinine [Mass/Vol] 1.08 mg/dL 0.70-1.30 [facility] Eosinophils Auto (Bld) [#/Vo l]Ordered By: Sharan Ayoub on 05-19-2023 Eosinophils (Bld) [#/Vol] 0.1 10*3/uL 0.0-0.45 [facility] Eosinophils/100 WBC Auto (Bl d)Ordered By: Sharan Ayoub on 05-19-2023 Eosinophils/100 WBC (Bld) 2.0 % . [facility] Isaac Fair virus DNA [#/vo lume] (viral load) in Serum or Plasma by LÁZARO with probe dOrdered By: Leighton Reilly on 05-19-2023 EBV DNA LÁZARO+probe [#/Vol] Negative Negative [facility] Comment on above: No EBV DNA detected. The linear range of this assay is 35 - 100,000,000 IU/mLPerformed at: - [facility]co[address] [id number] Director: Thierry Currie MD, Phone: [phone] Erythrocyte distribution wid th Auto (RBC) [Ratio]Ordered By: Sharan Ayoub on 05-19-2023 Erythrocyte distribution width (RBC) [Ratio] 13.9 % 12.0-14.8 [facility] Globulin Calc (S) [Mass/Vol] Ordered By: Sharan Ayoub on 05-19-2023 Globulin (S) [Mass/Vol] 3.6 g/dL [facility] Glucose [Mass/volume] in Ser um or PlasmaOrdered By: Sharan Ayoub on 05-19-2023 Glucose [Mass/Vol] 147 mg/dL 70-100 [facility] Comment on above: ADA recommended refe rence rangeRandom Glucose Reference Range is dependent on time and content of last meal. Glucose of more than 200 mg/dL in a nonstressed, ambulatory subject supports the diagnosis of Diabetes Mellitus. Hematocrit Auto (Bld) [Volum e fraction]Ordered By: Sharan Ayoub on 05-19-2023 Hematocrit (Bld) [Volume fraction] 39.0 % 38.8-50.0 [facility] Hemoglobin [Mass/volume] in BloodOrdered By: Sharan Ayoub on 05-19-2023 Hemoglobin (Bld) [Mass/Vol] 13.2 g/dL 13.0-17.0 [facility] Leukocytes [#/volume] correc roderick for nucleated erythrocytes in Blood by Automated counOrdered By: Sharan Ayoub on 05-19-2023 WBC corrected for nucl RBC Auto (Bld) [#/Vol] 4.7 10*3/uL 4.1-10.5 [facility] Lymphocytes Auto (Bld) [#/Vo l]Ordered By: Sharan Ayoub on 05-19-2023 Lymphocytes (Bld) [#/Vol] 2.0 10*3/uL 1.00-4.8 [facility] Lymphocytes/100 WBC Auto (Bl d)Ordered By: Sharan Ayoub on 05-19-2023 Lymphocytes/100 WBC (Bld) 42.7 % . [facility] MCH Auto (RBC) [Entitic mass ]Ordered By: Sharan Ayoub on 05-19-2023 MCH (RBC) [Entitic mass] 31.9 pg 27.5-35.2 [facility] MCHC Auto (RBC) [Mass/Vol]Or dered By: Sharan Ayoub on 05-19-2023 MCHC (RBC) [Mass/Vol] 33.9 g/dL 32.5-35.6 [facility] MCV Auto (RBC) [Entitic vol] Ordered By: Sharan Ayoub on 05-19-2023 MCV (RBC) [Entitic vol] 94.0 fL 83.5-101 [facility] Monocytes Auto (Bld) [#/Vol] Ordered By: Sharan Ayoub on 05-19-2023 Monocytes (Bld) [#/Vol] 0.3 10*3/uL 0.0-0.8 [facility] Monocytes/100 WBC Auto (Bld) Ordered By: Sharan Ayoub on 05-19-2023 Monocytes/100 WBC (Bld) 6.3 % . [facility] Neutrophils Auto (Bld) [#/Vo l]Ordered By: Sharan Ayoub on 05-19-2023 Neutrophils (Bld) [#/Vol] 2.3 10*3/uL 1.8-7.7 [facility] Neutrophils/100 WBC Auto (Bl d)Ordered By: Sharan Ayoub on 05-19-2023 Neutrophils/100 WBC (Bld) 47.7 % . [facility] No Panel InformationOrdered By: Leighton Reilly on 05-19-2023 Isaac-Fair Quant PCR Plasma log10 N/A [facility] No Panel InformationOrdered By: Sharan Ayoub on 05-19-2023 Estimated GFR (CKD-EPI) > 60.0 mL/Min [facility] Creatinine Clearance (Chem N/A [facility] Tacrolimus (Prograf) Level Sent to [facility] Nucleated erythrocytes [Pres ence] in Blood by Automated countOrdered By: Sharan Ayoub on 05-19-2023 Nucleated RBC Auto Ql (Bld) 0.2 /100{WBC} 0-0.5 [facility] Platelet mean volume Auto (B ld) [Entitic vol]Ordered By: Sharan Ayoub on 05-19-2023 Platelet mean volume (Bld) [Entitic vol] 11.0 fL 6.6-10.1 [facility] Platelets Auto (Bld) [#/Vol] Ordered By: Sharan Ayoub on 05-19-2023 Platelets (Bld) [#/Vol] 140 10*3/uL 150-450 [facility] Potassium [Moles/volume] in Serum or PlasmaOrdered By: Sharan Ayoub on 05-19-2023 Potassium [Moles/Vol] 3.9 mmol/L 3.5-5.1 [facility] Protein [Mass/volume] in Ser um or PlasmaOrdered By: Sharan Ayoub on 05-19-2023 Protein [Mass/Vol] 7.1 g/dL 6.4-8.9 [facility] RBC Auto (Bld) [#/Vol]Ordere d By: Sharan Ayoub on 05-19-2023 RBC (Bld) [#/Vol] 4.15 10*6/uL 3.90-5.60 [facility] Serum or plasma albumin/glob ulin mass ratioOrdered By: Sharan Ayoub on 05-19-2023 Albumin/Globulin [Mass ratio] 1.0 {ratio} [facility] Serum or plasma anion gap de terminationOrdered By: Sharan Ayoub on 05-19-2023 Anion gap [Moles/Vol] 9.8 mmol/L 6.0-15.0 [facility] Sodium [Moles/volume] in Ser um or PlasmaOrdered By: Sharan Ayoub on 05-19-2023 Sodium [Moles/Vol] 139 mmol/L 136-145 [facility] Urea nitrogen [Mass/volume] in Serum or PlasmaOrdered By: Sharan Ayoub on 05-19-2023 Urea nitrogen [Mass/Vol] 14 mg/dL 7-25 [facility] WBC Auto (Bld) [#/Vol]Ordere d By: Sharan Ayoub on 05-19-2023 WBC (Bld) [#/Vol] 4.7 10*3/uL 4.1-10.5 [facility] ID - Initial/Consulton 05-03 ID - Initial/Consult Chief Complaint Visit For: Other Consult requested by Dr. Ayoub Reason for consult: EBV viremia History of Present [id number] male patient with history of diabetes mellitus [...] Delayed Release; TAKE 1 TABLET DAILY; Therapy: (Recorded:[id number]) to Recorded Dispense: 0 Days ; #: [...] MOUTH EVERY 12 HOURS; Therapy: [id number] to (Evaluate:[id number]) Requested for: [id number]; Last Rx:[id number] Ordered Rx By: Sharan Ayoub; Dispense: 30 Days ; #:60 Capsule; Refill: 11;For: Immunosuppression, Liver replaced by transplant; JOSEFINA = N; Verified Transmission to [facility] #[id number] Formulary Override Reason: Drug is not indicated for Patient condition predniSONE 1 MG Oral Tablet; Take 1 tablet daily; Therapy: [id number] to (Evaluate:23Feb2024) Requested for: 28Feb2023 Recorded Rx By: Sharan Ayoub; Dispense: 30 Days ; #:30 Tablet; Refill: 11;For: Immunosuppression, Liver replaced by transplant; JOSEFINA = N; Record; Last Updated By: Nae Campos; 02/28/2023 3:48:37 PM Tacrolimus 1 MG Oral Capsule; take 1 capsule by mouth twice daily; Therapy: [id number] to (Evaluate:31Aug2023) Requested for: [id number]; Last Rx:[id number] Ordered Rx By: Sharan Ayoub; Dispense: 90 Days ; #:180 Capsule; Refill: 3;For: Immunosuppression, Liver replaced by transplant; JOSEFINA = N; Verified Transmission to [facility] #[id number]; Last Updated By: Maxine Clemons; 09/05/2022 8:39:18 AM amLODIPine Besylate 5 MG Oral Tablet; Take 1 tablet daily; Therapy: 31Jan2018 to (Evaluate:[id number]) Requested for: 28Mar2022; Last Rx:21Mar2022 Ordered Rx By: Sharan Ayoub; Dispense: 30 Days ; #:30 Tablet; Refill: 11;For: Liver replaced by transplant; JOSEFINA = N; Verified Transmission to [facility] #[id number] Magnesium Oxide -Mg Supplement 400 (240 Mg) MG Oral Tablet; TAKE 1 TABLET BY MOUTH TWICE DAILY; Therapy: 31Jan2023 to (Evaluate:[id number]) Requested for: 31Jan2023; Last Rx:31Jan2023 Ordered Rx By: Marta (more content not included)... Normal [facility] Tobacco Screening.on 023 Fall risk assessment a) No falls within the last year [facility] 1600 DO Work Phone: Tobacco use status [facility] b) No [facility] 1600 DO Work Phone: TACROLIMUSon 04-25-2023 Tacrolimus (Bld) [Mass/Vol] 10.0 ng/mL Normal 2.0 - 15.0 [facility] Comment on above: Result Comment: NOTE : Result was obtained using a chemiluminescent microparticle immunoassay (CMIA) on the [employer] i system. Optimal therapeutic ranges for immuno- suppressant drugs depend upon an individual patient's current clinical state, type of organ transplant, time post-transplant, co-administration of other immunosuppressants, and other clinical factors. The results of this test should be correlated with additional clinical and laboratory data before changes in treatment regimens are made. Performed By: #### F K506 #### [facility] [address] [place] [address] Alanine aminotransferase [En zymatic activity/volume] in Serum or PlasmaOrdered By: Sharan Ayoub on 04-24-2023 ALT [Catalytic activity/Vol] 92 U/L 7-52 [facility] Albumin [Mass/volume] in Ser um or Plasma by Bromocresol green (BCG) dye binding methoOrdered By: Sharan Ayoub on 04-24-2023 Albumin BCG dye [Mass/Vol] 3.6 g/dL 3.5-5.7 [facility] Alkaline phosphatase [Enzyma tic activity/volume] in Serum or PlasmaOrdered By: Sharan Ayoub on 04-24-2023 ALP [Catalytic activity/Vol] 213 U/L 34-104 [facility] Aspartate aminotransferase [ Enzymatic activity/volume] in Serum or PlasmaOrdered By: Sharan Ayoub on 04-24-2023 AST [Catalytic activity/Vol] 102 U/L 13-39 [facility] Basophils Auto (Bld) [#/Vol] Ordered By: Sharan Ayoub on 04-24-2023 Basophils (Bld) [#/Vol] 0.0 10*3/uL 0.0-0.2 [facility] Basophils/100 WBC Auto (Bld) Ordered By: Sharan Ayoub on 04-24-2023 Basophils/100 WBC (Bld) 0.7 % . [facility] Bilirubin.total [Mass/volume ] in Serum or PlasmaOrdered By: Sharan Ayoub on 04-24-2023 Bilirubin [Mass/Vol] 1.5 mg/dL 0.3-1.0 [facility] Comment on above: Samples from patient s who have taken Naproxen have shown spurious elevation in Total Bilirubin levels. A metabolite of Naproxen, O-desmethylnaproxen, has been shown to interfere with the Jenlatricaiik-Uriel method for measuring Total Bilirubin. Calcium [Mass/volume] in Ser um or PlasmaOrdered By: Sharan Ayoub on 04-24-2023 Calcium [Mass/Vol] 9.0 mg/dL 8.6-10.3 [facility] Carbon dioxide, total [Moles /volume] in Serum or PlasmaOrdered By: Sharan Ayoub on 04-24-2023 CO2 [Moles/Vol] 33.4 mmol/L 21.0-31.0 [facility] Chloride [Moles/volume] in S kasi or PlasmaOrdered By: Sharan Ayoub on 04-24-2023 Chloride [Moles/Vol] 101 mmol/L 98-107 [facility] Creatinine [Mass/volume] in Serum or PlasmaOrdered By: Sharan Ayoub on 04-24-2023 Creatinine [Mass/Vol] 1.07 mg/dL 0.70-1.30 [facility] Eosinophils Auto (Bld) [#/Vo l]Ordered By: Sharan Ayoub on 04-24-2023 Eosinophils (Bld) [#/Vol] 0.1 10*3/uL 0.0-0.45 [facility] Eosinophils/100 WBC Auto (Bl d)Ordered By: Sharan Ayoub on 04-24-2023 Eosinophils/100 WBC (Bld) 1.9 % . [facility] Erythrocyte distribution wid th Auto (RBC) [Ratio]Ordered By: Sharan Ayoub on 04-24-2023 Erythrocyte distribution width (RBC) [Ratio] 13.8 % 12.0-14.8 [facility] Globulin Calc (S) [Mass/Vol] Ordered By: Sharan Ayoub on 04-24-2023 Globulin (S) [Mass/Vol] 3.6 g/dL [facility] Glucose [Mass/volume] in Ser um or PlasmaOrdered By: Sharan Ayoub on 04-24-2023 Glucose [Mass/Vol] 317 mg/dL 70-100 [facility] Comment on above: ADA recommended refe rence rangeRandom Glucose Reference Range is dependent on time and content of last meal. Glucose of more than 200 mg/dL in a nonstressed, ambulatory subject supports the diagnosis of Diabetes Mellitus. Hematocrit Auto (Bld) [Volum e fraction]Ordered By: Sharan Ayoub on 04-24-2023 Hematocrit (Bld) [Volume fraction] 41.8 % 38.8-50.0 [facility] Hemoglobin [Mass/volume] in BloodOrdered By: Sharan Ayoub on 04-24-2023 Hemoglobin (Bld) [Mass/Vol] 14.0 g/dL 13.0-17.0 [facility] Leukocytes [#/volume] correc roderick for nucleated erythrocytes in Blood by Automated counOrdered By: Sharan Ayoub on 04-24-2023 WBC corrected for nucl RBC Auto (Bld) [#/Vol] 4.5 10*3/uL 4.1-10.5 [facility] Lymphocytes Auto (Bld) [#/Vo l]Ordered By: Sharan Ayoub on 04-24-2023 Lymphocytes (Bld) [#/Vol] 1.9 10*3/uL 1.00-4.8 [facility] Lymphocytes/100 WBC Auto (Bl d)Ordered By: Sharan Ayoub on 04-24-2023 Lymphocytes/100 WBC (Bld) 42.8 % . [facility] MCH Auto (RBC) [Entitic mass ]Ordered By: Sharan Ayoub on 04-24-2023 MCH (RBC) [Entitic mass] 31.2 pg 27.5-35.2 [facility] MCHC Auto (RBC) [Mass/Vol]Or dered By: Sharan Ayoub on 04-24-2023 MCHC (RBC) [Mass/Vol] 33.4 g/dL 32.5-35.6 [facility] MCV Auto (RBC) [Entitic vol] Ordered By: Sharan Ayoub on 04-24-2023 MCV (RBC) [Entitic vol] 93.2 fL 83.5-101 [facility] Monocytes Auto (Bld) [#/Vol] Ordered By: Sharan Ayoub on 04-24-2023 Monocytes (Bld) [#/Vol] 0.4 10*3/uL 0.0-0.8 [facility] Monocytes/100 WBC Auto (Bld) Ordered By: Sharan Ayoub on 04-24-2023 Monocytes/100 WBC (Bld) 8.2 % . [facility] Neutrophils Auto (Bld) [#/Vo l]Ordered By: Sharan Ayoub on 04-24-2023 Neutrophils (Bld) [#/Vol] 2.1 10*3/uL 1.8-7.7 [facility] Neutrophils/100 WBC Auto (Bl d)Ordered By: Sharan Ayoub on 04-24-2023 Neutrophils/100 WBC (Bld) 46.4 % . [facility] No Panel InformationOrdered By: Sharan Ayoub on 04-24-2023 Estimated GFR (CKD-EPI) > 60.0 mL/Min [facility] Pharm[facility] Creatinine Clearance (Chem N/A [facility] Tacrolimus (Prograf) Level Sent to [facility] Nucleated erythrocytes [Pres ence] in Blood by Automated countOrdered By: Sharan Ayoub on 04-24-2023 Nucleated RBC Auto Ql (Bld) 0.2 /100{WBC} 0-0.5 [facility] Platelet adequacy [Presence] in Blood by Light microscopyOrdered By: Sharan Ayoub on 04-24-2023 Platelets LM Ql (Bld) Decreased Normal [facility] Platelet mean volume Auto (B ld) [Entitic vol]Ordered By: Sharan Ayoub on 04-24-2023 Platelet mean volume (Bld) [Entitic vol] 11.3 fL 6.6-10.1 [facility] Platelet morphology finding [Identifier] in BloodOrdered By: Sharan Ayoub on 04-24-2023 Platelet morphology finding Nom (Bld) N/A [facility] Platelets Auto (Bld) [#/Vol] Ordered By: Sharan Ayoub on 04-24-2023 Platelets (Bld) [#/Vol] 142 10*3/uL 150-450 [facility] Potassium [Moles/volume] in Serum or PlasmaOrdered By: Sharan Ayoub on 04-24-2023 Potassium [Moles/Vol] 4.1 mmol/L 3.5-5.1 [facility] Protein [Mass/volume] in Ser um or PlasmaOrdered By: Sharan Ayoub on 04-24-2023 Protein [Mass/Vol] 7.2 g/dL 6.4-8.9 [facility] RBC Auto (Bld) [#/Vol]Ordere d By: Sharan Ayoub on 04-24-2023 RBC (Bld) [#/Vol] 4.48 10*6/uL 3.90-5.60 [facility] RBC morphologyOrdered By: Kanu Ayoub on 04-24-2023 RBC morphology finding Nom (Bld) Normal Normal [facility] Serum or plasma albumin/glob ulin mass ratioOrdered By: Sharan Ayoub on 04-24-2023 Albumin/Globulin [Mass ratio] 1.0 {ratio} [facility] Serum or plasma anion gap de terminationOrdered By: Sharan Ayoub on 04-24-2023 Anion gap [Moles/Vol] 7.7 mmol/L 6.0-15.0 [facility] Sodium [Moles/volume] in Ser um or PlasmaOrdered By: Sharan Ayoub on 04-24-2023 Sodium [Moles/Vol] 138 mmol/L 136-145 [facility] Tacrolimuson 04-24-2023 Tacrolimus (Bld) [Mass/Vol] 10.0 ng/mL 2.0 - 15.0 [facility] 1600 DO Work Phone: Comment on above: NOTE: Result was obt ained using a chemiluminescent microparticle immunoassay (CMIA) on the [employer] i system.Optimal therapeutic ranges for immuno-suppressant drugs depend upon an individualpatient's current clinical state, type oforgan transplant, time post-transplant,co-administration of other immunosuppressants,and other clinical factors. The results ofthis test should be correlated with additionalclinical and laboratory data before changesin treatment regimens are made. Urea nitrogen [Mass/volume] in Serum or PlasmaOrdered By: Sharan Ayoub on 04-24-2023 Urea nitrogen [Mass/Vol] 17 mg/dL 7-25 [facility] WBC Auto (Bld) [#/Vol]Ordere d By: Sharan Ayoub on 04-24-2023 WBC (Bld) [#/Vol] 4.5 10*3/uL 4.1-10.5 [facility] TACROLIMUSon 04-04-2023 Tacrolimus (Bld) [Mass/Vol] 10.3 ng/mL Normal 2.0 - 15.0 [facility] Comment on above: Result Comment: NOTE : Result was obtained using a chemiluminescent microparticle immunoassay (CMIA) on the [employer] i system. Optimal therapeutic ranges for immuno- suppressant drugs depend upon an individual patient's current clinical state, type of organ transplant, time post-transplant, co-administration of other immunosuppressants, and other clinical factors. The results of this test should be correlated with additional clinical and laboratory data before changes in treatment regimens are made. Performed By: #### F [id number] #### [facility] [address] [place] [address] Tacrolimuson 04-03-2023 Tacrolimus (Bld) [Mass/Vol] 10.3 ng/mL 2.0 - 15.0 [facility] [address] [facility] Work Phone: Comment on above: NOTE: Result was obt ained using a chemiluminescent microparticle immunoassay (CMIA) on the [employer] i system.Optimal therapeutic ranges for immuno-suppressant drugs depend upon an individualpatient's current clinical state, type oforgan transplant, time post-transplant,co-administration of other immunosuppressants,and other clinical factors. The results ofthis test should be correlated with additionalclinical and laboratory data before changesin treatment regimens are made. Alanine aminotransferase [En zymatic activity/volume] in Serum or PlasmaOrdered By: Sharan Ayoub on 03-28-2023 ALT [Catalytic activity/Vol] 93 U/L 7-52 [facility] Albumin [Mass/volume] in Ser um or Plasma by Bromocresol green (BCG) dye binding methoOrdered By: Sharan Ayoub on 03-28-2023 Albumin BCG dye [Mass/Vol] 3.6 g/dL 3.5-5.7 [facility] Alkaline phosphatase [Enzyma tic activity/volume] in Serum or PlasmaOrdered By: Sharan Ayoub on 03-28-2023 ALP [Catalytic activity/Vol] 215 U/L 34-104 [facility] Aspartate aminotransferase [ Enzymatic activity/volume] in Serum or PlasmaOrdered By: Sharan Ayoub on 03-28-2023 AST [Catalytic activity/Vol] 94 U/L 13-39 [facility] Basophils Auto (Bld) [#/Vol] Ordered By: Sharan Ayoub on 03-28-2023 Basophils (Bld) [#/Vol] N/A [facility] Basophils/100 WBC Auto (Bld) Ordered By: Sharan Ayoub on 03-28-2023 Basophils/100 WBC (Bld) N/A [facility] Basophils/100 WBC Manual cnt (Bld)Ordered By: Sharan Ayoub on 03-28-2023 Basophils/100 WBC (Bld) 1 % 0-2 [facility] Bilirubin.total [Mass/volume ] in Serum or PlasmaOrdered By: Sharan Ayoub on 03-28-2023 Bilirubin [Mass/Vol] 1.5 mg/dL 0.3-1.0 [facility] Comment on above: Samples from patient s who have taken Naproxen have shown spurious elevation in Total Bilirubin levels. A metabolite of Naproxen, O-desmethylnaproxen, has been shown to interfere with the Harlan-Uriel method for measuring Total Bilirubin. Calcium [Mass/volume] in Ser um or PlasmaOrdered By: Sharan Ayoub on 03-28-2023 Calcium [Mass/Vol] 9.0 mg/dL 8.6-10.3 [facility] Carbon dioxide, total [Moles /volume] in Serum or PlasmaOrdered By: Sharan Ayoub on 03-28-2023 CO2 [Moles/Vol] 25.8 mmol/L 21.0-31.0 [facility] Chloride [Moles/volume] in S kasi or PlasmaOrdered By: Sharan Ayoub on 03-28-2023 Chloride [Moles/Vol] 104 mmol/L 98-107 [facility] Creatinine [Mass/volume] in Serum or PlasmaOrdered By: Sharan Ayoub on 03-28-2023 Creatinine [Mass/Vol] 0.96 mg/dL 0.70-1.30 [facility] Eosinophils Auto (Bld) [#/Vo l]Ordered By: Sharan Ayoub on 03-28-2023 Eosinophils (Bld) [#/Vol] N/A [facility] Eosinophils/100 WBC Auto (Bl d)Ordered By: Sharan Ayoub on 03-28-2023 Eosinophils/100 WBC (Bld) N/A [facility] Eosinophils/100 WBC Manual c nt (Bld)Ordered By: Sharan Ayoub on 03-28-2023 Eosinophils/100 WBC (Bld) 3 % 1-3 [facility] Isaac Fair virus DNA [#/vo lume] (viral load) in Serum or Plasma by LÁZARO with probe dOrdered By: Sharan Ayoub on 03-28-2023 EBV DNA LÁZARO+probe [#/Vol] Negative Negative [facility] Comment on above: No EBV DNA detected. The linear range of this assay is 35 - 100,000,000 IU/mLPerformed at: [facility] [address] [id number] Director: Thierry Currie MD, Phone: [phone] Erythrocyte distribution wid th Auto (RBC) [Ratio]Ordered By: Sharan Ayoub on 03-28-2023 Erythrocyte distribution width (RBC) [Ratio] 13.7 % 12.0-14.8 [facility] Globulin Calc (S) [Mass/Vol] Ordered By: Sharan Ayoub on 03-28-2023 Globulin (S) [Mass/Vol] 3.3 g/dL [facility] Glucose [Mass/volume] in Ser um or PlasmaOrdered By: Sharan Ayoub on 03-28-2023 Glucose [Mass/Vol] 341 mg/dL 70-100 [facility] Comment on above: ADA recommended refe rence rangeRandom Glucose Reference Range is dependent on time and content of last meal. Glucose of more than 200 mg/dL in a nonstressed, ambulatory subject supports the diagnosis of Diabetes Mellitus. Hematocrit Auto (Bld) [Volum e fraction]Ordered By: Sharan Ayoub on 03-28-2023 Hematocrit (Bld) [Volume fraction] 42.3 % 38.8-50.0 [facility] Hemoglobin [Mass/volume] in BloodOrdered By: Sharan Ayoub on 03-28-2023 Hemoglobin (Bld) [Mass/Vol] 14.2 g/dL 13.0-17.0 [facility] Leukocytes [#/volume] correc roderick for nucleated erythrocytes in Blood by Automated counOrdered By: Sharan Ayoub on 03-28-2023 WBC corrected for nucl RBC Auto (Bld) [#/Vol] 5.4 10*3/uL 4.1-10.5 [facility] Lymphocytes Auto (Bld) [#/Vo l]Ordered By: Sharan Ayoub on 03-28-2023 Lymphocytes (Bld) [#/Vol] N/A [facility] Lymphocytes/100 WBC Auto (Bl d)Ordered By: Sharan Ayoub on 03-28-2023 Lymphocytes/100 WBC (Bld) N/A [facility] Lymphocytes/100 WBC Manual c nt (Bld)Ordered By: Sharan Ayoub on 03-28-2023 Lymphocytes/100 WBC (Bld) 38 % 18-42 [facility] MCH Auto (RBC) [Entitic mass ]Ordered By: Sharan Ayoub on 03-28-2023 MCH (RBC) [Entitic mass] 31.4 pg 27.5-35.2 [facility] MCHC Auto (RBC) [Mass/Vol]Or dered By: Sharan Ayoub on 03-28-2023 MCHC (RBC) [Mass/Vol] 33.6 g/dL 32.5-35.6 [facility] MCV Auto (RBC) [Entitic vol] Ordered By: Sharan Ayoub on 03-28-2023 MCV (RBC) [Entitic vol] 93.2 fL 83.5-101 [facility] Monocytes Auto (Bld) [#/Vol] Ordered By: Sharan Ayoub on 03-28-2023 Monocytes (Bld) [#/Vol] N/A [facility] Monocytes/100 WBC Auto (Bld) Ordered By: Sharan Ayoub on 03-28-2023 Monocytes/100 WBC (Bld) N/A [facility] Monocytes/100 WBC Manual cnt (Bld)Ordered By: Sharan Ayoub on 03-28-2023 Monocytes/100 WBC (Bld) 6 % 2-11 [facility] Neutrophils Auto (Bld) [#/Vo l]Ordered By: Sharan Ayoub on 03-28-2023 Neutrophils (Bld) [#/Vol] N/A [facility] Neutrophils/100 WBC Auto (Bl d)Ordered By: Sharan Ayoub on 03-28-2023 Neutrophils/100 WBC (Bld) N/A [facility] No Panel InformationOrdered By: Sharan Ayoub on 03-28-2023 Isaac-Fair Quant PCR Plasma log10 N/A [facility] Estimated GFR (CKD-EPI) > 60.0 mL/Min [facility] Creatinine Clearance (Chem N/A [facility] Tacrolimus (Prograf) Level Sent to [facility] Nucleated erythrocytes [Pres ence] in Blood by Automated countOrdered By: Sharan Ayoub on 03-28-2023 Nucleated RBC Auto Ql (Bld) N/A [facility] Platelet adequacy [Presence] in Blood by Light microscopyOrdered By: Sharan Ayoub on 03-28-2023 Platelets LM Ql (Bld) Normal Normal [facility] Platelet mean volume Auto (B ld) [Entitic vol]Ordered By: Sharan Ayoub on 03-28-2023 Platelet mean volume (Bld) [Entitic vol] 11.2 fL 6.6-10.1 [facility] Platelet morphology finding [Identifier] in BloodOrdered By: Sharan Ayoub on 03-28-2023 Platelet morphology finding Nom (Bld) N/A [facility] Platelets Auto (Bld) [#/Vol] Ordered By: Sharan Ayoub on 03-28-2023 Platelets (Bld) [#/Vol] 157 10*3/uL 150-450 [facility] Potassium [Moles/volume] in Serum or PlasmaOrdered By: Shaarn Ayoub on 03-28-2023 Potassium [Moles/Vol] 3.7 mmol/L 3.5-5.1 [facility] Protein [Mass/volume] in Ser um or PlasmaOrdered By: Sharan Ayoub on 03-28-2023 Protein [Mass/Vol] 6.9 g/dL 6.4-8.9 [facility] RBC Auto (Bld) [#/Vol]Ordere d By: Sharan Ayoub on 03-28-2023 RBC (Bld) [#/Vol] 4.54 10*6/uL 3.90-5.60 [facility] RBC morphologyOrdered By: Kanu Ayoub on 03-28-2023 RBC morphology finding Nom (Bld) N/A [facility] Red blood cell stomatocyte d etectionOrdered By: Sharan Ayoub on 03-28-2023 Stomatocytes LM Ql (Bld) Slight [facility] Segmented neutrophils/100 WB C Manual cnt (Bld)Ordered By: Sharan Ayoub on 03-28-2023 Segmented neutrophils/100 WBC (Bld) 50 % 50-70 [facility] Serum or plasma albumin/glob ulin mass ratioOrdered By: Sharan Ayoub on 03-28-2023 Albumin/Globulin [Mass ratio] 1.1 {ratio} [facility] Serum or plasma anion gap de terminationOrdered By: Sharan Ayoub on 03-28-2023 Anion gap [Moles/Vol] 11.9 mmol/L 6.0-15.0 [facility] Sodium [Moles/volume] in Ser um or PlasmaOrdered By: Sharan Ayoub on 03-28-2023 Sodium [Moles/Vol] 138 mmol/L 136-145 [facility] Toxic leukocyte vacuolation detectionOrdered By: Sharan Ayoub on 03-28-2023 Leukocyte toxic vacuoles LM Ql (Bld) Slight [facility] Urea nitrogen [Mass/volume] in Serum or PlasmaOrdered By: Sharan Ayoub on 03-28-2023 Urea nitrogen [Mass/Vol] 16 mg/dL 7-25 [facility] Variant lymphocytes/100 WBC Manual cnt (Bld)Ordered By: Sharan Ayoub on 03-28-2023 Variant lymphocytes/100 WBC (Bld) 2 % 0-12 [facility] WBC Auto (Bld) [#/Vol]Ordere d By: Sharan Ayoub on 03-28-2023 WBC (Bld) [#/Vol] 5.4 10*3/uL 4.1-10.5 [facility] TACROLIMUSon 03-18-2023 Tacrolimus (Bld) [Mass/Vol] 11.5 ng/mL Normal 2.0 - 15.0 [facility] Comment on above: Result Comment: NOTE : Result was obtained using a chemiluminescent microparticle immunoassay (CMIA) on the [employer] i system. Optimal therapeutic ranges for immuno- suppressant drugs depend upon an individual patient's current clinical state, type of organ transplant, time post-transplant, co-administration of other immunosuppressants, and other clinical factors. The results of this test should be correlated with additional clinical and laboratory data before changes in treatment regimens are made. Performed By: #### F [id number] #### [facility] [address] [place] [address] Alanine aminotransferase [En zymatic activity/volume] in Serum or PlasmaOrdered By: Sharan Ayoub on 03-17-2023 ALT [Catalytic activity/Vol] 80 U/L 7-52 [facility] Albumin [Mass/volume] in Ser um or Plasma by Bromocresol green (BCG) dye binding methoOrdered By: Sharan Ayoub on 03-17-2023 Albumin BCG dye [Mass/Vol] 3.8 g/dL 3.5-5.7 [facility] Alkaline phosphatase [Enzyma tic activity/volume] in Serum or PlasmaOrdered By: Sharan Ayoub on 03-17-2023 ALP [Catalytic activity/Vol] 208 U/L 34-104 [facility] Aspartate aminotransferase [ Enzymatic activity/volume] in Serum or PlasmaOrdered By: Sharan Ayoub on 03-17-2023 AST [Catalytic activity/Vol] 63 U/L 13-39 [facility] Basophils Auto (Bld) [#/Vol] Ordered By: Sharan Ayoub on 03-17-2023 Basophils (Bld) [#/Vol] 0.1 10*3/uL 0.0-0.2 [facility] Basophils/100 WBC Auto (Bld) Ordered By: Sharan Ayoub on 03-17-2023 Basophils/100 WBC (Bld) 1.4 % . [facility] Bilirubin.total [Mass/volume ] in Serum or PlasmaOrdered By: Sharan Ayoub on 03-17-2023 Bilirubin [Mass/Vol] 1.6 mg/dL 0.3-1.0 [facility] Comment on above: Samples from patient s who have taken Naproxen have shown spurious elevation in Total Bilirubin levels. A metabolite of Naproxen, O-desmethylnaproxen, has been shown to interfere with the Harlan-Uriel method for measuring Total Bilirubin. Calcium [Mass/volume] in Ser um or PlasmaOrdered By: Sharan Ayoub on 03-17-2023 Calcium [Mass/Vol] 9.1 mg/dL 8.6-10.3 [facility] Carbon dioxide, total [Moles /volume] in Serum or PlasmaOrdered By: Sharan Ayoub on 03-17-2023 CO2 [Moles/Vol] 31.4 mmol/L 21.0-31.0 [facility] Chloride [Moles/volume] in S kasi or PlasmaOrdered By: Sharan Ayoub on 03-17-2023 Chloride [Moles/Vol] 101 mmol/L 98-107 [facility] Creatinine [Mass/volume] in Serum or PlasmaOrdered By: Sharan Ayoub on 03-17-2023 Creatinine [Mass/Vol] 0.94 mg/dL 0.70-1.30 [facility] Eosinophils Auto (Bld) [#/Vo l]Ordered By: Sharan Ayoub on 03-17-2023 Eosinophils (Bld) [#/Vol] 0.1 10*3/uL 0.0-0.45 [facility] Eosinophils/100 WBC Auto (Bl d)Ordered By: Sharan Ayoub on 03-17-2023 Eosinophils/100 WBC (Bld) 2.0 % . [facility] Erythrocyte distribution wid th Auto (RBC) [Ratio]Ordered By: Sharan Ayoub on 03-17-2023 Erythrocyte distribution width (RBC) [Ratio] 13.7 % 12.0-14.8 [facility] Globulin Calc (S) [Mass/Vol] Ordered By: Sharan Ayoub on 03-17-2023 Globulin (S) [Mass/Vol] 3.1 g/dL [facility] Glucose [Mass/volume] in Ser um or PlasmaOrdered By: Sharan Ayoub on 03-17-2023 Glucose [Mass/Vol] 276 mg/dL 70-100 [facility] Comment on above: ADA recommended refe rence rangeRandom Glucose Reference Range is dependent on time and content of last meal. Glucose of more than 200 mg/dL in a nonstressed, ambulatory subject supports the diagnosis of Diabetes Mellitus. Hematocrit Auto (Bld) [Volum e fraction]Ordered By: Sharan Ayoub on 03-17-2023 Hematocrit (Bld) [Volume fraction] 39.0 % 38.8-50.0 [facility] Hemoglobin [Mass/volume] in BloodOrdered By: Sharan Ayoub on 03-17-2023 Hemoglobin (Bld) [Mass/Vol] 13.2 g/dL 13.0-17.0 [facility] Leukocytes [#/volume] correc roderick for nucleated erythrocytes in Blood by Automated counOrdered By: Sharan Ayoub on 03-17-2023 WBC corrected for nucl RBC Auto (Bld) [#/Vol] 4.7 10*3/uL 4.1-10.5 [facility] Lymphocytes Auto (Bld) [#/Vo l]Ordered By: Sharan Ayoub on 03-17-2023 Lymphocytes (Bld) [#/Vol] 1.7 10*3/uL 1.00-4.8 [facility] Lymphocytes/100 WBC Auto (Bl d)Ordered By: Sharan Ayoub on 03-17-2023 Lymphocytes/100 WBC (Bld) 36.8 % . [facility] MCH Auto (RBC) [Entitic mass ]Ordered By: Sharan Ayoub on 03-17-2023 MCH (RBC) [Entitic mass] 31.4 pg 27.5-35.2 [facility] MCHC Auto (RBC) [Mass/Vol]Or dered By: Sharan Ayoub on 03-17-2023 MCHC (RBC) [Mass/Vol] 33.8 g/dL 32.5-35.6 [facility] MCV Auto (RBC) [Entitic vol] Ordered By: Sharan Ayoub on 03-17-2023 MCV (RBC) [Entitic vol] 92.9 fL 83.5-101 [facility] Monocytes Auto (Bld) [#/Vol] Ordered By: Sharan Ayoub on 03-17-2023 Monocytes (Bld) [#/Vol] 0.4 10*3/uL 0.0-0.8 [facility] Monocytes/100 WBC Auto (Bld) Ordered By: Sharan Ayoub on 03-17-2023 Monocytes/100 WBC (Bld) 8.8 % . [facility] Neutrophils Auto (Bld) [#/Vo l]Ordered By: Sharan Ayoub on 03-17-2023 Neutrophils (Bld) [#/Vol] 2.4 10*3/uL 1.8-7.7 [facility] Neutrophils/100 WBC Auto (Bl d)Ordered By: Sharan Ayoub on 03-17-2023 Neutrophils/100 WBC (Bld) 51.0 % . [facility] No Panel InformationOrdered By: Sharan Ayoub on 03-17-2023 Estimated GFR (CKD-EPI) > 60.0 mL/Min [facility] Pharm[facility] Creatinine Clearance (Chem N/A [facility] Tacrolimus (Prograf) Level Sent to [facility] Nucleated erythrocytes [Pres ence] in Blood by Automated countOrdered By: Sharan Ayoub on 03-17-2023 Nucleated RBC Auto Ql (Bld) 0.0 /100{WBC} 0-0.5 [facility] Platelet adequacy [Presence] in Blood by Light microscopyOrdered By: Sharan Ayoub on 03-17-2023 Platelets LM Ql (Bld) Normal Normal [facility] Platelet mean volume Auto (B ld) [Entitic vol]Ordered By: Sharan Ayoub on 03-17-2023 Platelet mean volume (Bld) [Entitic vol] 11.5 fL 6.6-10.1 [facility] Platelet morphology finding [Identifier] in BloodOrdered By: Sharan Ayoub on 03-17-2023 Platelet morphology finding Nom (Bld) Normal Normal [facility] Platelets Auto (Bld) [#/Vol] Ordered By: Sharan Ayoub on 03-17-2023 Platelets (Bld) [#/Vol] 145 10*3/uL 150-450 [facility] Potassium [Moles/volume] in Serum or PlasmaOrdered By: Sharan Ayoub on 03-17-2023 Potassium [Moles/Vol] 4.2 mmol/L 3.5-5.1 [facility] Protein [Mass/volume] in Ser um or PlasmaOrdered By: Sharan Ayoub on 03-17-2023 Protein [Mass/Vol] 6.9 g/dL 6.4-8.9 [facility] RBC Auto (Bld) [#/Vol]Ordere d By: Sharan Ayoub on 03-17-2023 RBC (Bld) [#/Vol] 4.19 10*6/uL 3.90-5.60 [facility] RBC morphologyOrdered By: Kanu Ayoub on 03-17-2023 RBC morphology finding Nom (Bld) Normal Normal [facility] Serum or plasma albumin/glob ulin mass ratioOrdered By: Sharan Ayoub on 03-17-2023 Albumin/Globulin [Mass ratio] 1.2 {ratio} [facility] Serum or plasma anion gap de terminationOrdered By: Sharan Ayoub on 03-17-2023 Anion gap [Moles/Vol] 9.8 mmol/L 6.0-15.0 [facility] Sodium [Moles/volume] in Ser um or PlasmaOrdered By: Sharan Ayoub on 03-17-2023 Sodium [Moles/Vol] 138 mmol/L 136-145 [facility] Tacrolimuson 03-17-2023 Tacrolimus (Bld) [Mass/Vol] 11.5 ng/mL 2.0 - 15.0 [facility] [address] Work Phone: Comment on above: NOTE: Result was obt ained using a chemiluminescent microparticle immunoassay (CMIA) on the [employer] system.Optimal therapeutic ranges for immuno-suppressant drugs depend upon an individualpatient's current clinical state, type oforgan transplant, time post-transplant,co-administration of other immunosuppressants,and other clinical factors. The results ofthis test should be correlated with additionalclinical and laboratory data before changesin treatment regimens are made. Urea nitrogen [Mass/volume] in Serum or PlasmaOrdered By: Sharan Ayoub on 03-17-2023 Urea nitrogen [Mass/Vol] 15 mg/dL 04-25 [facility] WBC Auto (Bld) [#/Vol]Ordere d By: Sharan Ayoub on 03-17-2023 WBC (Bld) [#/Vol] 4.7 10*3/uL 4.1-10.5 [facility] TACROLIMUSon 02-21-2023 Tacrolimus (Bld) [Mass/Vol] 8.9 ng/mL Normal 2.0 - 15.0 [facility] Comment on above: Result Comment: NOTE : Result was obtained using a chemiluminescent microparticle immunoassay (CMIA) on the [employer] i system. Optimal therapeutic ranges for immuno- suppressant drugs depend upon an individual patient's current clinical state, type of organ transplant, time post-transplant, co-administration of other immunosuppressants, and other clinical factors. The results of this test should be correlated with additional clinical and laboratory data before changes in treatment regimens are made. Performed By: #### F [id number] #### [facility] [address] [place] [address] Alanine aminotransferase [En zymatic activity/volume] in Serum or PlasmaOrdered By: Sharan Ayoub on 02-20-2023 ALT [Catalytic activity/Vol] 108 U/L [facility] Albumin [Mass/volume] in Ser um or Plasma by Bromocresol green (BCG) dye binding methoOrdered By: Sharan Ayoub on 02-20-2023 Albumin BCG dye [Mass/Vol] 3.6 g/dL 3.5-5.7 [facility] Alkaline phosphatase [Enzyma tic activity/volume] in Serum or PlasmaOrdered By: Sharan Ayoub on 02-20-2023 ALP [Catalytic activity/Vol] 219 U/L 34-104 [facility] Aspartate aminotransferase [ Enzymatic activity/volume] in Serum or PlasmaOrdered By: Sharan Ayoub on 02-20-2023 AST [Catalytic activity/Vol] 92 U/L 13-39 [facility] Basophils Auto (Bld) [#/Vol] Ordered By: Sharan Ayoub on 02-20-2023 Basophils (Bld) [#/Vol] 0.1 10*3/uL 0.0-0.2 [facility] Basophils/100 WBC Auto (Bld) Ordered By: Sharan Ayoub on 02-20-2023 Basophils/100 WBC (Bld) 1.1 % . [facility] Bilirubin.total [Mass/volume ] in Serum or PlasmaOrdered By: Sharan Ayoub on 02-20-2023 Bilirubin [Mass/Vol] 1.2 mg/dL 0.3-1.0 [facility] Calcium [Mass/volume] in Ser um or PlasmaOrdered By: Sharan Ayoub on 02-20-2023 Calcium [Mass/Vol] 9.0 mg/dL 8.6-10.3 [facility] Carbon dioxide, total [Moles /volume] in Serum or PlasmaOrdered By: Sharan Ayoub on 02-20-2023 CO2 [Moles/Vol] 29.8 mmol/L 21.0-31.0 [facility] Chloride [Moles/volume] in S kasi or PlasmaOrdered By: Sharan Ayoub on 02-20-2023 Chloride [Moles/Vol] 101 mmol/L 98-107 [facility] Creatinine [Mass/volume] in Serum or PlasmaOrdered By: Sharan Ayoub on 02-20-2023 Creatinine [Mass/Vol] 0.93 mg/dL 0.70-1.30 [facility] Cytomegalovirus DNA [Units/v olume] (viral load) in Plasma by LÁZARO with probe detectionOrdered By: Sharan Ayoub on 02-20-2023 CMV DNA LÁZARO+probe Qn (P) Negative Negative [facility] Comment on above: No CMV DNA detected. The quantitative range of this assay is 200 to 1 millionIU/mL. Eosinophils Auto (Bld) [#/Vo l]Ordered By: Sharan Ayoub on 02-20-2023 Eosinophils (Bld) [#/Vol] 0.0 10*3/uL 0.0-0.45 [facility] Eosinophils/100 WBC Auto (Bl d)Ordered By: Sharan Ayoub on 02-20-2023 Eosinophils/100 WBC (Bld) 0.6 % . [facility] Erythrocyte distribution wid th Auto (RBC) [Ratio]Ordered By: Sharan Ayoub on 02-20-2023 Erythrocyte distribution width (RBC) [Ratio] 13.5 % 12.0-14.8 [facility] Gamma glutamyl transferase [ Enzymatic activity/volume] in Serum or PlasmaOrdered By: Sharan Ayoub on 02-20-2023 Gamma glutamyl transferase [Catalytic activity/Vol] 719 U/L 9-64 [facility] Globulin Calc (S) [Mass/Vol] Ordered By: Sharan Ayoub on 02-20-2023 Globulin (S) [Mass/Vol] 3.3 g/dL [facility] Glucose [Mass/volume] in Ser um or PlasmaOrdered By: Sharan Ayoub on 02-20-2023 Glucose [Mass/Vol] 189 mg/dL 70-100 [facility] Comment on above: ADA recommended refe rence rangeRandom Glucose Reference Range is dependent on time and content of last meal. Glucose of more than 200 mg/dL in a nonstressed, ambulatory subject supports the diagnosis of Diabetes Mellitus. Hematocrit Auto (Bld) [Volum e fraction]Ordered By: Sharan Ayoub on 02-20-2023 Hematocrit (Bld) [Volume fraction] 42.0 % 38.8-50.0 [facility] Hemoglobin [Mass/volume] in BloodOrdered By: Sharan Ayoub on 02-20-2023 Hemoglobin (Bld) [Mass/Vol] 14.0 g/dL 13.0-17.0 [facility] Leukocytes [#/volume] correc roderick for nucleated erythrocytes in Blood by Automated counOrdered By: Sharan Ayoub on 02-20-2023 WBC corrected for nucl RBC Auto (Bld) [#/Vol] 6.2 10*3/uL 4.1-10.5 [facility] Lymphocytes Auto (Bld) [#/Vo l]Ordered By: Sharan Ayoub on 02-20-2023 Lymphocytes (Bld) [#/Vol] 1.9 10*3/uL 1.00-4.8 [facility] Lymphocytes/100 WBC Auto (Bl d)Ordered By: Sharan Ayoub on 02-20-2023 Lymphocytes/100 WBC (Bld) 31.3 % . [facility] MCH Auto (RBC) [Entitic mass ]Ordered By: Sharan Ayoub on 02-20-2023 MCH (RBC) [Entitic mass] 30.8 pg 27.5-35.2 [facility] MCHC Auto (RBC) [Mass/Vol]Or dered By: Sharan Ayoub on 02-20-2023 MCHC (RBC) [Mass/Vol] 33.3 g/dL 32.5-35.6 [facility] MCV Auto (RBC) [Entitic vol] Ordered By: Sharan Ayoub on 02-20-2023 MCV (RBC) [Entitic vol] 92.6 fL 83.5-101 [facility] Monocytes Auto (Bld) [#/Vol] Ordered By: Sharan Ayoub on 02-20-2023 Monocytes (Bld) [#/Vol] 0.4 10*3/uL 0.0-0.8 [facility] Monocytes/100 WBC Auto (Bld) Ordered By: Sharan Ayoub on 02-20-2023 Monocytes/100 WBC (Bld) 6.7 % . [facility] Neutrophils Auto (Bld) [#/Vo l]Ordered By: Sharan Ayoub on 02-20-2023 Neutrophils (Bld) [#/Vol] 3.8 10*3/uL 1.8-7.7 [facility] Neutrophils/100 WBC Auto (Bl d)Ordered By: Sharan Ayoub on 02-20-2023 Neutrophils/100 WBC (Bld) 60.3 % . [facility] No Panel InformationOrdered By: Sharan Ayoub on 02-20-2023 Tacrolimus (Prograf) Level Sent to [facility] CMV DNA Quant PCR log IU/mL See comment . [facility] Comment on above: Result Units: log10 IU/mLUnable to calculate result since non-numeric resultobtained for component test.Performed at: [facility] [employer] [id number] Director: Thierry Currie MD, Phone: [phone] Isaac-Fiar DNA, Quant (PCR) log10 3.759 . [facility] Comment on above: Result Units: log10c opy/mLPerformed at: [facility] [employer] [id number] Director: Thierry Currie MD, Phone: [phone] Estimated GFR (CKD-EPI) > 60.0 mL/Min [facility] Creatinine Clearance (Chem N/A [facility] Nucleated erythrocytes [Pres ence] in Blood by Automated countOrdered By: Sharan Ayoub on 02-20-2023 Nucleated RBC Auto Ql (Bld) 0.1 /100{WBC} 0-0.5 [facility] Platelet mean volume Auto (B ld) [Entitic vol]Ordered By: Sharan Ayoub on 02-20-2023 Platelet mean volume (Bld) [Entitic vol] 10.1 fL 6.6-10.1 [facility] Platelets Auto (Bld) [#/Vol] Ordered By: Sharan Ayoub on 02-20-2023 Platelets (Bld) [#/Vol] 162 10*3/uL 150-450 [facility] Potassium [Moles/volume] in Serum or PlasmaOrdered By: Sharan Ayoub on 02-20-2023 Potassium [Moles/Vol] 4.3 mmol/L 3.5-5.1 [facility] Protein [Mass/volume] in Ser um or PlasmaOrdered By: Sharan Ayoub on 02-20-2023 Protein [Mass/Vol] 6.9 g/dL 6.4-8.9 [facility] RBC Auto (Bld) [#/Vol]Ordere d By: Sharan Ayoub on 02-20-2023 RBC (Bld) [#/Vol] 4.53 10*6/uL 3.90-5.60 [facility] Serum Isaac Fair virus cap rosemary IgG antibody assay (units/volume)Ordered By: Sharan Ayoub on 02-20-2023 EBV capsid IgG Qn (S) [arb'U]/mL 0.0-17.9 [facility] Comment on above: Negative <18.0 Equiv ocal 18.0 - 21.9 Positive >21.9 EBV capsid IgG Qn (S) [arb'U]/mL 0.0-35.9 [facility] Comment on above: Negative <36.0 Equiv ocal 36.0 - 43.9 Positive >43.9 Serum Isaac Fair virus nuc lear IgG antibody assay (units/volume)Ordered By: Sharan Ayoub on 02-20-2023 EBV nuclear IgG Qn (S) 48.3 U/mL 0.0-17.9 [facility] Comment on above: Negative <18.0 Equiv ocal 18.0 - 21.9 Positive >21.9 Serum cytomegalovirus IgG an tibody assay by immunoassay (units/volume)Ordered By: Sharan Ayoub on 02-20-2023 CMV IgG IA Qn >10.00 U/mL 0.00-0.59 [facility] Comment on above: Negative <0.60 Equiv ocal 0.60 - 0.69 Positive >0.69 Serum cytomegalovirus IgM an tibody assay by immunoassay (units/volume)Ordered By: Sharan Ayoub on 02-20-2023 CMV IgM IA Qn <30.0 AU/mL 0.0-29.9 [facility] Comment on above: Negative <30.0 Equiv ocal 30.0 - 34.9 Positive >34.9A positive result is generally indicative of acuteinfection, reactivation or persistent IgM production.Performed at: - [facility] [id number] Director: Surendra Hall PhD, Phone: [phone] Serum or plasma albumin/glob ulin mass ratioOrdered By: Sharan Ayoub on 02-20-2023 Albumin/Globulin [Mass ratio] 1.1 {ratio} [facility] Serum or plasma anion gap de terminationOrdered By: Sharan Ayoub on 02-20-2023 Anion gap [Moles/Vol] 10.5 mmol/L 6.0-15.0 [facility] Service commentOrdered By: Misha Ayoub on 02-20-2023 Service comment (Unsp spec) [Interp] See comment . [facility] Comment on above: EBV Interpretation C [...] EBV never develop antibodies to EBNA.Performed at: [facility] [id number] Director: Surendra Hall PhD, Phone: [phone] Sodium [Moles/volume] in Ser um or PlasmaOrdered By: Sharan Ayoub on 02-20-2023 Sodium [Moles/Vol] 137 mmol/L 136-145 [facility] Tacrolimuson 02-20-2023 Tacrolimus (Bld) [Mass/Vol] 8.9 ng/mL 2.0 - 15.0 [facility] [address] [facility] Work Phone: Comment on above: NOTE: Result was obt ained using a chemiluminescent microparticle immunoassay (CMIA) on the [employer] i system.Optimal therapeutic ranges for immuno-suppressant drugs depend upon an individualpatient's current clinical state, type oforgan transplant, time post-transplant,co-administration of other immunosuppressants,and other clinical factors. The results ofthis test should be correlated with additionalclinical and laboratory data before changesin treatment regimens are made. Urea nitrogen [Mass/volume] in Serum or PlasmaOrdered By: Sharan Ayoub on 02-20-2023 Urea nitrogen [Mass/Vol] 15 mg/dL 7-25 [facility] WBC Auto (Bld) [#/Vol]Ordere d By: Sharan Ayoub on 02-20-2023 WBC (Bld) [#/Vol] 6.2 10*3/uL 4.1-10.5 [facility] Whole blood quantitative Eps tein-Fair virus (EBV) DNA assay by PCROrdered By: Sharan Ayoub on 02-20-2023 EBV DNA LÁZARO+probe (Bld) [#/Vol] 5743 copies/mL Negative [facility] Comment on above: The quantitative ran ge of this assay is 100 to 1 millioncopies/mL.This test was developed and its performance characteristicsdetermined by [employer]. It has not been cleared or approvedby [...] reviewed this case. Diagnostic interpretation performed at [facility] [address] [facility] [address] Addendum/Procedures: Addendum Date Ordered: 02/21/2023 Status: Signed Out Date Complete: 02/21/2023 Date Reported: 02/21/2023 Addendum Diagnosis In Situ Hybridization for NISHI is negative.A. By the signature on this report, the individual or group listed as making the Final Interpretation/Diagnosis certifies that they have reviewed this case. Addendum signed out at [address] [facility] [address]. Addendum Date Ordered: 05/15/2023 Status: Signed Out Date Complete: 05/15/2023 Date Reported: 05/15/2023 Addendum Diagnosis Immunostains for CMV and HSV demonstrate no viral inclusions. By the signature on this report, the individual or group listed as making the Final Interpretation/Diagnosis certifies that they have reviewed this case. Addendum signed out at [facility] [address] [facility] [address]. Clinical History: Liver transplant April 2016 Specimens [...] the Department of Pathology Immunohistochemistry Labs at [facility]. The FDA does not require this test to go through premarket FDA review. This test is used for clinical purposes. It should not be regarded as investigational or for research. This laboratory is certified under the Clinical Laboratory Improvement Amendments (CLIA) as qualified to perform high complexity clinical laboratory testing. The assays/tests were performed with appropriate positive and negative controls which stained appropriately. [facility] Department of Pathology [address] [place] [id number] [place] [address] [place] Guidance for biopsy of Ami mattson 02-04-2023 Status post ultrasou nd guided core needle biopsy of transplanted liver. Specimen(s) Sent to pathology. I was present for and/or performed the critical portions of the procedure and immediately available throughout the entire procedure. I personally reviewed the image(s) / study and interpretation. I agree with the findings as stated. Performed and dictated at [facility]. [facility] Interpreted By: ТАТЬЯНА EID MD and BUSHRA BARCENAS MD Patient Name: LULY GIRON STUDY: US BIOPSY LIVER PER; 02/03/2023 8:33 am INDICATION: s/p liver transplant, elevated LFT's, ultrasound last week normal Z94.4: Liver replaced by transplant R79.89: Elevated LFTs. COMPARISON: None. ACCESSION NUMBER(S): [id number] ORDERING CLINICIAN: SHARAN AYOUB TECHNIQUE: INTERVENTIONALIST(S): Dr. [...] no immediate complications. Specimen(s) sent to pathology. [facility] Татьяна Eid MD - 02/04/2023 Interpreted By: ТАТЬЯНА EID MD and BUSHRA BARCENAS MD Patient Name: LULY GIRON STUDY: US BIOPSY LIVER PER; 02/03/2023 8:33 am INDICATION: s/p liver transplant, elevated LFT's, ultrasound last week normal Z94.4: Liver replaced by transplant R79.89: Elevated LFTs. COMPARISON: None. ACCESSION NUMBER(S): [id number] ORDERING CLINICIAN: SHARAN AYOUB TECHNIQUE: INTERVENTIONALIST(S): Dr. [...] findings as stated. Performed and dictated at [facility]. [facility] Work Phone: [place] Guidance for biopsy of Li Jasvirered By: Татьяна Eid on 02-04-2023 [facility] Work Phone: No Panel Informationon 02-03 [facility] [address] Work Phone: Radiologyon 02-03-2023 [place] Guidance for fine needle aspiration of Liver Normal [facility] [address] Work Phone: [facility] Surgical Pathology Depar tmenton 02-03-2023 [facility] Surgical Pathology Department Name LULY GIRON Pathologist: [...] reviewed this case. Diagnostic interpretation performed at [facility] [address] [facility] [address] Addendum/Procedures: Addendum Date Ordered: 02/21/2023 Status: Signed Out Date Complete: 02/21/2023 Date Reported: 02/21/2023 Addendum Diagnosis In Situ Hybridization for NISHI is negative.A. By the signature on this report, the individual or group listed as making the Final Interpretation/Diagnosis certifies that they have reviewed this case. Addendum signed out at [place] [address]. Addendum Date Ordered: 05/15/2023 Status: Signed Out Date Complete: 05/15/2023 Date Reported: 05/15/2023 Addendum Diagnosis Immunostains for CMV and HSV demonstrate no viral inclusions. By the signature on this report, the individual or group listed as making the Final Interpretation/Diagnosis certifies that they have reviewed this case. Addendum signed out at [place] [address]. Clinical History: Liver transplant April 2016 Specimens [...] the Department of Pathology Immunohistochemistry Labs at [facility]. The FDA does not require this test to go through premarket FDA review. This test is used for clinical purposes. It should not be regarded as investigational or for research. This laboratory is certified under the Clinical Laboratory Improvement Amendments (CLIA) as qualified to perform high complexity clinical laboratory testing. The assays/tests were performed with appropriate positive and negative controls which stained appropriately. [facility] Department of Pathology [address] [place] [address] Normal [facility] Comment on above: Performed By: #### F K506 #### [place] [address] US BIOPSY LIVER PERon 2022 US BIOPSY LIVER PER Patient Name: LULY GIRON STUDY: US BIOPSY LIVER PER; 02/03/2023 8:33 am INDICATION: s/p liver transplant, elevated LFT's, ultrasound last week normal Z94.4: Liver replaced by transplant R79.89: Elevated LFTs. COMPARISON: None. ACCESSION NUMBER(S): [id number] ORDERING CLINICIAN: SHARAN AYOUB TECHNIQUE: INTERVENTIONALIST(S): Dr. [...] findings as stated. Performed and dictated at [facility]. Electronically signed by: ТАТЬЯНА EID MD Normal [facility] US Guidance for biopsy of Ami mattson 02-03-2023 Radiology Study observation (narrative) [facility] Work Phone: TACROLIMUSon 01-28-2023 Tacrolimus (Bld) [Mass/Vol] 7.3 ng/mL Normal 2.0 - 15.0 [facility] Comment on above: Result Comment: NOTE : Result was obtained using a chemiluminescent microparticle immunoassay (CMIA) on the [employer] i system. Optimal therapeutic ranges for immuno- suppressant drugs depend upon an individual patient's current clinical state, type of organ transplant, time post-transplant, co-administration of other immunosuppressants, and other clinical factors. The results of this test should be correlated with additional clinical and laboratory data before changes in treatment regimens are made. Performed By: #### F [id number] #### [facility] [address] [place] [address] Alanine aminotransferase [En zymatic activity/volume] in Serum or PlasmaOrdered By: Sharan Ayoub on 01-27-2023 ALT [Catalytic activity/Vol] 91 U/L 7-52 [facility] Albumin [Mass/volume] in Ser um or Plasma by Bromocresol green (BCG) dye binding methoOrdered By: Sharan Ayoub on 01-27-2023 Albumin BCG dye [Mass/Vol] 3.6 g/dL 3.5-5.7 [facility] Alkaline phosphatase [Enzyma tic activity/volume] in Serum or PlasmaOrdered By: Sharan Ayoub on 01-27-2023 ALP [Catalytic activity/Vol] 222 U/L 34-104 [facility] Aspartate aminotransferase [ Enzymatic activity/volume] in Serum or PlasmaOrdered By: hSaran Ayoub on 01-27-2023 AST [Catalytic activity/Vol] 80 U/L 13-39 [facility] Basophils Auto (Bld) [#/Vol] Ordered By: Sharan Ayoub on 01-27-2023 Basophils (Bld) [#/Vol] 0.1 10*3/uL 0.0-0.2 [facility] Basophils/100 WBC Auto (Bld) Ordered By: Sharan Ayoub on 01-27-2023 Basophils/100 WBC (Bld) 0.8 % . [facility] Bilirubin.direct [Mass/volum e] in Serum or PlasmaOrdered By: Sharan Ayoub on 01-27-2023 Bilirubin.direct [Mass/Vol] 0.40 mg/dL 0.03-0.18 [facility] Bilirubin.total [Mass/volume ] in Serum or PlasmaOrdered By: Sharan Ayoub on 01-27-2023 Bilirubin [Mass/Vol] 1.5 mg/dL 0.3-1.0 [facility] Comment on above: Samples from patient s who have taken Naproxen have shown spurious elevation in Total Bilirubin levels. A metabolite of Naproxen, O-desmethylnaproxen, has been shown to interfere with the Harlan-Uriel method for measuring Total Bilirubin. Calcium [Mass/volume] in Ser um or PlasmaOrdered By: Sharan Ayoub on 01-27-2023 Calcium [Mass/Vol] 9.2 mg/dL 8.6-10.3 [facility] Carbon dioxide, total [Moles /volume] in Serum or PlasmaOrdered By: Sharan Ayoub on 01-27-2023 CO2 [Moles/Vol] 32.9 mmol/L 21.0-31.0 [facility] Chloride [Moles/volume] in S kasi or PlasmaOrdered By: Sharan Ayoub on 01-27-2023 Chloride [Moles/Vol] 104 mmol/L 98-107 [facility] Creatinine [Mass/volume] in Serum or PlasmaOrdered By: Sharan Ayoub on 01-27-2023 Creatinine [Mass/Vol] 0.94 mg/dL 0.70-1.30 [facility] Eosinophils Auto (Bld) [#/Vo l]Ordered By: Sharan Ayoub on 01-27-2023 Eosinophils (Bld) [#/Vol] 0.2 10*3/uL 0.0-0.45 [facility] Eosinophils/100 WBC Auto (Bl d)Ordered By: Sharan Ayoub on 01-27-2023 Eosinophils/100 WBC (Bld) 2.9 % . [facility] Erythrocyte distribution wid th Auto (RBC) [Ratio]Ordered By: Sharan Ayoub on 01-27-2023 Erythrocyte distribution width (RBC) [Ratio] 13.8 % 12.0-14.8 [facility] Gamma glutamyl transferase [ Enzymatic activity/volume] in Serum or PlasmaOrdered By: Sharan Ayoub on 01-27-2023 Gamma glutamyl transferase [Catalytic activity/Vol] 695 U/L 9-64 [facility] Globulin Calc (S) [Mass/Vol] Ordered By: Sharan Ayoub on 01-27-2023 Globulin (S) [Mass/Vol] 3.4 g/dL [facility] Glucose [Mass/volume] in Ser um or PlasmaOrdered By: Sharan Ayoub on 01-27-2023 Glucose [Mass/Vol] 89 mg/dL 70-100 [facility] Comment on above: ADA recommended refe rence rangeRandom Glucose Reference Range is dependent on time and content of last meal. Glucose of more than 200 mg/dL in a nonstressed, ambulatory subject supports the diagnosis of Diabetes Mellitus. Hematocrit Auto (Bld) [Volum e fraction]Ordered By: Sharan Ayoub on 01-27-2023 Hematocrit (Bld) [Volume fraction] 42.2 % 38.8-50.0 [facility] Hemoglobin [Mass/volume] in BloodOrdered By: Sharan Ayoub on 01-27-2023 Hemoglobin (Bld) [Mass/Vol] 14.0 g/dL 13.0-17.0 [facility] Leukocytes [#/volume] correc roderick for nucleated erythrocytes in Blood by Automated counOrdered By: Sharan Ayoub on 01-27-2023 WBC corrected for nucl RBC Auto (Bld) [#/Vol] 6.5 10*3/uL 4.1-10.5 [facility] Lymphocytes Auto (Bld) [#/Vo l]Ordered By: Sharan Ayoub on 01-27-2023 Lymphocytes (Bld) [#/Vol] 2.4 10*3/uL 1.00-4.8 [facility] Lymphocytes/100 WBC Auto (Bl d)Ordered By: Sharan Ayoub on 01-27-2023 Lymphocytes/100 WBC (Bld) 36.9 % . [facility] MCH Auto (RBC) [Entitic mass ]Ordered By: Sharan Ayoub on 01-27-2023 MCH (RBC) [Entitic mass] 31.0 pg 27.5-35.2 [facility] MCHC Auto (RBC) [Mass/Vol]Or dered By: Sharan Ayoub on 01-27-2023 MCHC (RBC) [Mass/Vol] 33.2 g/dL 32.5-35.6 [facility] MCV Auto (RBC) [Entitic vol] Ordered By: Sharan Ayoub on 01-27-2023 MCV (RBC) [Entitic vol] 93.2 fL 83.5-101 [facility] Monocytes Auto (Bld) [#/Vol] Ordered By: Sharan Ayoub on 01-27-2023 Monocytes (Bld) [#/Vol] 0.7 10*3/uL 0.0-0.8 [facility] Monocytes/100 WBC Auto (Bld) Ordered By: Sharan Ayoub on 01-27-2023 Monocytes/100 WBC (Bld) 10.1 % . [facility] Neutrophils Auto (Bld) [#/Vo l]Ordered By: Sharan Ayoub on 01-27-2023 Neutrophils (Bld) [#/Vol] 3.2 10*3/uL 1.8-7.7 [facility] Neutrophils/100 WBC Auto (Bl d)Ordered By: Sharan Ayoub on 01-27-2023 Neutrophils/100 WBC (Bld) 49.3 % . [facility] No Panel InformationOrdered By: Sharan Ayoub on 01-27-2023 Estimated GFR (CKD-EPI) > 60.0 mL/Min [facility] Pharm[facility] Creatinine Clearance (Chem N/A [facility] Tacrolimus (Prograf) Level Sent to [facility] Nucleated erythrocytes [Pres ence] in Blood by Automated countOrdered By: Sharan Ayoub on 01-27-2023 Nucleated RBC Auto Ql (Bld) 0.2 /100{WBC} 0-0.5 [facility] Platelet mean volume Auto (B ld) [Entitic vol]Ordered By: Sharan Ayoub on 01-27-2023 Platelet mean volume (Bld) [Entitic vol] 10.3 fL 6.6-10.1 [facility] Platelets Auto (Bld) [#/Vol] Ordered By: Sharan Ayoub on 01-27-2023 Platelets (Bld) [#/Vol] 180 10*3/uL 150-450 [facility] Potassium [Moles/volume] in Serum or PlasmaOrdered By: Sharan Ayoub on 01-27-2023 Potassium [Moles/Vol] 3.9 mmol/L 3.5-5.1 [facility] Protein [Mass/volume] in Ser um or PlasmaOrdered By: Sharan Ayoub on 01-27-2023 Protein [Mass/Vol] 7.0 g/dL 6.4-8.9 [facility] RBC Auto (Bld) [#/Vol]Ordere d By: Sharan Ayoub on 01-27-2023 RBC (Bld) [#/Vol] 4.53 10*6/uL 3.90-5.60 [facility] Serum or plasma albumin/glob ulin mass ratioOrdered By: Sharan Ayoub on 01-27-2023 Albumin/Globulin [Mass ratio] 1.1 {ratio} [facility] Serum or plasma anion gap de terminationOrdered By: Sharan Ayoub on 01-27-2023 Anion gap [Moles/Vol] 9.0 mmol/L 6.0-15.0 [facility] Serum or plasma non-glucuron idated bilirubin measurement (mass/volume)Ordered By: Sharan Ayoub on 01-27-2023 Bilirubin.indirect [Mass/Vol] 1.1 mg/dL [facility] Sodium [Moles/volume] in Ser um or PlasmaOrdered By: Sharan Ayoub on 01-27-2023 Sodium [Moles/Vol] 142 mmol/L 136-145 [facility] Tacrolimuson 01-27-2023 Tacrolimus (Bld) [Mass/Vol] 7.3 ng/mL 2.0 - 15.0 [facility] Work Phone: Comment on above: NOTE: Result was obt ained using a chemiluminescent microparticle immunoassay (CMIA) on the [employer] i system.Optimal therapeutic ranges for immuno-suppressant drugs depend upon an individualpatient's current clinical state, type oforgan transplant, time post-transplant,co-administration of other immunosuppressants,and other clinical factors. The results ofthis test should be correlated with additionalclinical and laboratory data before changesin treatment regimens are made. Urea nitrogen [Mass/volume] in Serum or PlasmaOrdered By: Sharan Ayoub on 01-27-2023 Urea nitrogen [Mass/Vol] 16 mg/dL 7-25 [facility] WBC Auto (Bld) [#/Vol]Ordere d By: Sharan Ayoub on 01-27-2023 WBC (Bld) [#/Vol] 6.5 10*3/uL 4.1-10.5 [facility] Established Visit (Gastroent erology)on 01-26-2023 Established Visit [...] 1 CAPSULE BY MOUTH EVERY 12 HOURS [employer] Delica Lancets 33G MISCTEST BLOOD SUGARS 5 TIMES A DAY AD DIRECTGED [employer] Ultra 2 w/Device KitUSE DIRECTED. [employer] In Vitro SolutionUSE DIRECTED. [employer] Ultra In Vitro StripTest 4 times daily predniSONE 1 MG Oral TabletTAKE 2 TABLETS BY MOUTH DAILY Tacrolimus 1 MG Oral Capsuletake 1 capsule by mouth twice daily Vitals Vital Signs Recorded: 26Jan2023 10:46AM Begomqsxahv66.6 F Heart Rate76 Bzxuqcnxyzc90 Ybbrwsbd021 Cyzmjttfr49 Xarwpq474 lb BMI Pckltwoszl42.37 kg/m2 BSA Calculated1.73 Tobacco Useb) No PHQ-2 #1. Over the last 2 weeks have you felt down, depressed or hopeless? (If yes, answer PHQ-9 below)No PHQ-2 #2. Over the last 2 weeks have you felt little interest or pleasure in doing things? (If yes, answer PHQ-9 below)No Falls Screening (Age 18+)a) No falls within the last year O2 Swukwcfvmb28, RA Pain Scale0 Physical Exam Con (more content not included)... Normal [facility] 01-26-2023 Liver Normal [facility] [place] Work Phone: Tobacco Screening.on 023 Adult depression screening assessment No [facility] Work Phone: Fall risk assessment a) No falls within the last year [facility] Work Phone: Tobacco use status CPHS b) No [facility] Work Phone: US ABDOMEN AND OR PELVIS DUP MARIA GUADALUPE MESENTERIC PORTAL RENALon 01-26-2023 US ABDOMEN AND OR PELVIS DUPLEX MESENTERIC PORTAL RENAL Patient Name: LULY GIRON STUDY: US LIVER; US DUPLX ART/VEIN AB; 01/26/2023 10:13 am INDICATION: s/p liver transplant, right side pain, elevated LFT's Z94.4: Liver replaced by transplant R79.89: Elevated LFTs. COMPARISON: Ultrasound 04/17/2019 ACCESSION NUMBER(S): [id number]; [id number] ORDERING CLINICIAN: SHARAN AYOUB TECHNIQUE: Multiple images [...] agree with the findings as stated by residential program worker Ramya Steward MD. This study was interpreted at [facility], [place], [place]. Electronically signed by: WEI FOSS MD Normal [facility] US Abdomen And Or Pelvis Dup maria guadalupe Mesenteric Portal Renalon 01-26-2023 US Abdomen And Or Pelvis Duplex Mesenteric Portal Renal Normal [facility] Work Phone: TACROLIMUSon 01-17-2023 Tacrolimus (Bld) [Mass/Vol] 8.1 ng/mL Normal 2.0 - 15.0 [facility] Comment on above: Result Comment: NOTE : Result was obtained using a chemiluminescent microparticle immunoassay (CMIA) on the [employer] i system. Optimal therapeutic ranges for immuno- suppressant drugs depend upon an individual patient's current clinical state, type of organ transplant, time post-transplant, co-administration of other immunosuppressants, and other clinical factors. The results of this test should be correlated with additional clinical and laboratory data before changes in treatment regimens are made. Performed By: #### F K506 #### [facility] [address] [place] [address] Alanine aminotransferase [En zymatic activity/volume] in Serum or PlasmaOrdered By: Sharan Ayoub on 01-16-2023 ALT [Catalytic activity/Vol] 98 U/L 7-52 [facility] Albumin [Mass/volume] in Ser um or Plasma by Bromocresol green (BCG) dye binding methoOrdered By: Sharan Ayoub on 01-16-2023 Albumin BCG dye [Mass/Vol] 3.6 g/dL 3.5-5.7 [facility] Alkaline phosphatase [Enzyma tic activity/volume] in Serum or PlasmaOrdered By: Sharan Ayoub on 01-16-2023 ALP [Catalytic activity/Vol] 197 U/L 34-104 [facility] Aspartate aminotransferase [ Enzymatic activity/volume] in Serum or PlasmaOrdered By: Sharan Ayoub on 01-16-2023 AST [Catalytic activity/Vol] 88 U/L 13-39 [facility] Bilirubin.direct [Mass/volum e] in Serum or PlasmaOrdered By: Sharan Ayoub on 01-16-2023 Bilirubin.direct [Mass/Vol] 0.30 mg/dL 0.03-0.18 [facility] Bilirubin.total [Mass/volume ] in Serum or PlasmaOrdered By: Sharan Ayoub on 01-16-2023 Bilirubin [Mass/Vol] 1.2 mg/dL 0.3-1.0 [facility] Calcium [Mass/volume] in Ser um or PlasmaOrdered By: Sharan Ayoub on 01-16-2023 Calcium [Mass/Vol] 8.8 mg/dL 8.6-10.3 [facility] Carbon dioxide, total [Moles /volume] in Serum or PlasmaOrdered By: Sharan Ayoub on 01-16-2023 CO2 [Moles/Vol] 30.0 mmol/L 21.0-31.0 [facility] Chloride [Moles/volume] in S kasi or PlasmaOrdered By: Sharan Ayoub on 01-16-2023 Chloride [Moles/Vol] 104 mmol/L 98-107 [facility] Creatinine [Mass/volume] in Serum or PlasmaOrdered By: Sharan Ayoub on 01-16-2023 Creatinine [Mass/Vol] 1.02 mg/dL 0.70-1.30 [facility] Gamma glutamyl transferase [ Enzymatic activity/volume] in Serum or PlasmaOrdered By: Shaarn Ayoub on 01-16-2023 Gamma glutamyl transferase [Catalytic activity/Vol] 705 U/L 9-64 [facility] Globulin Calc (S) [Mass/Vol] Ordered By: Sharan Ayoub on 01-16-2023 Globulin (S) [Mass/Vol] 3.5 g/dL [facility] Glucose [Mass/volume] in Ser um or PlasmaOrdered By: Sharan Ayoub on 01-16-2023 Glucose [Mass/Vol] 254 mg/dL 70-100 [facility] Comment on above: ADA recommended refe rence rangeRandom Glucose Reference Range is dependent on time and content of last meal. Glucose of more than 200 mg/dL in a nonstressed, ambulatory subject supports the diagnosis of Diabetes Mellitus. Laboratory - CoagulationOrde red By: Sharan Ayoub on 01-16-2023 PT Coag (PPP) [Time] 11.4 s 9.0-12.9 [facility] No Panel InformationOrdered By: Sharan Ayoub on 01-16-2023 Estimated GFR (CKD-EPI) > 60.0 mL/Min [facility] Creatinine Clearance (Chem N/A [facility] Tacrolimus (Prograf) Level Sent to [facility] Platelet poor plasma interna tional normalized ratio (INR) by coagulation assay (relatOrdered By: Sharan Ayoub on 01-16-2023 INR Coag (PPP) [Relative time] 1.0 {INR} [facility] Comment on above: INR Therapeutic Rang [...] on 01-16-2023 Potassium [Moles/Vol] 4.0 mmol/L 3.5-5.1 [facility] Protein [Mass/volume] in Ser um or PlasmaOrdered By: Sharan Ayoub on 01-16-2023 Protein [Mass/Vol] 7.1 g/dL 6.4-8.9 [facility] Serum or plasma albumin/glob ulin mass ratioOrdered By: Sharan Ayoub on 01-16-2023 Albumin/Globulin [Mass ratio] 1.0 {ratio} [facility] Serum or plasma anion gap de terminationOrdered By: Sharan Ayoub on 01-16-2023 Anion gap [Moles/Vol] 9.0 mmol/L 6.0-15.0 [facility] Serum or plasma non-glucuron idated bilirubin measurement (mass/volume)Ordered By: Sharan Ayoub on 01-16-2023 Bilirubin.indirect [Mass/Vol] 0.9 mg/dL [facility] Sodium [Moles/volume] in Ser um or PlasmaOrdered By: Sharan Ayoub on 01-16-2023 Sodium [Moles/Vol] 139 mmol/L 136-145 [facility] Tacrolimuson 01-16-2023 Tacrolimus (Bld) [Mass/Vol] 8.1 ng/mL 2.0 - 15.0 [facility] Work Phone: Comment on above: NOTE: Result was obt ained using a chemiluminescent microparticle immunoassay (CMIA) on the [employer] i system.Optimal therapeutic ranges for immuno-suppressant drugs depend upon an individualpatient's current clinical state, type oforgan transplant, time post-transplant,co-administration of other immunosuppressants,and other clinical factors. The results ofthis test should be correlated with additionalclinical and laboratory data before changesin treatment regimens are made. Urea nitrogen [Mass/volume] in Serum or PlasmaOrdered By: Sharan Ayoub on 01-16-2023 Urea nitrogen [Mass/Vol] 14 mg/dL 7-25 [facility] TACROLIMUSon 12-24-2022 Tacrolimus (Bld) [Mass/Vol] 5.8 ng/mL Normal 2.0 - 15.0 [facility] Comment on above: Result Comment: NOTE : Result was obtained using a chemiluminescent microparticle immunoassay (CMIA) on the [employer] i system. Optimal therapeutic ranges for immuno- suppressant drugs depend upon an individual patient's current clinical state, type of organ transplant, time post-transplant, co-administration of other immunosuppressants, and other clinical factors. The results of this test should be correlated with additional clinical and laboratory data before changes in treatment regimens are made. Performed By: #### F K506 #### [facility] [address] [place] [address] Alanine aminotransferase [En zymatic activity/volume] in Serum or PlasmaOrdered By: Sharan Ayoub on 12-23-2022 ALT [Catalytic activity/Vol] 64 U/L 7-52 [facility] Albumin [Mass/volume] in Ser um or Plasma by Bromocresol green (BCG) dye binding methoOrdered By: Sharan Ayoub on 12-23-2022 Albumin BCG dye [Mass/Vol] 3.7 g/dL 3.5-5.7 [facility] Alkaline phosphatase [Enzyma tic activity/volume] in Serum or PlasmaOrdered By: Sharan Ayoub on 12-23-2022 ALP [Catalytic activity/Vol] 209 U/L 34-104 [facility] Aspartate aminotransferase [ Enzymatic activity/volume] in Serum or PlasmaOrdered By: Sharan Ayoub on 12-23-2022 AST [Catalytic activity/Vol] 61 U/L 13-39 [facility] Basophils Auto (Bld) [#/Vol] Ordered By: Sharan Ayoub on 12-23-2022 Basophils (Bld) [#/Vol] 0.1 10*3/uL 0.0-0.2 [facility] Basophils/100 WBC Auto (Bld) Ordered By: Sharan Ayoub on 12-23-2022 Basophils/100 WBC (Bld) 1.2 % . [facility] Bilirubin.total [Mass/volume ] in Serum or PlasmaOrdered By: Sharan Ayoub on 12-23-2022 Bilirubin [Mass/Vol] 0.9 mg/dL 0.3-1.0 [facility] Calcium [Mass/volume] in Ser um or PlasmaOrdered By: Sharan Ayoub on 12-23-2022 Calcium [Mass/Vol] 9.6 mg/dL 8.6-10.3 [facility] Carbon dioxide, total [Moles /volume] in Serum or PlasmaOrdered By: Sharan Ayoub on 12-23-2022 CO2 [Moles/Vol] 30.2 mmol/L 21.0-31.0 [facility] Chloride [Moles/volume] in S kasi or PlasmaOrdered By: Sharan Ayoub on 12-23-2022 Chloride [Moles/Vol] 102 mmol/L 98-107 [facility] Creatinine [Mass/volume] in Serum or PlasmaOrdered By: Sharan Ayoub on 12-23-2022 Creatinine [Mass/Vol] 1.08 mg/dL 0.70-1.30 [facility] Eosinophils Auto (Bld) [#/Vo l]Ordered By: Sharan Ayoub on 12-23-2022 Eosinophils (Bld) [#/Vol] 0.1 10*3/uL 0.0-0.45 [facility] Eosinophils/100 WBC Auto (Bl d)Ordered By: Sharan Ayoub on 12-23-2022 Eosinophils/100 WBC (Bld) 1.2 % . [facility] Erythrocyte distribution wid th Auto (RBC) [Ratio]Ordered By: Sharan Ayoub on 12-23-2022 Erythrocyte distribution width (RBC) [Ratio] 13.7 % 12.0-14.8 [facility] Globulin Calc (S) [Mass/Vol] Ordered By: Sharan Ayoub on 12-23-2022 Globulin (S) [Mass/Vol] 3.2 g/dL [facility] Glucose [Mass/volume] in Ser um or PlasmaOrdered By: Sharan Ayoub on 12-23-2022 Glucose [Mass/Vol] 278 mg/dL 74-109 [facility] Comment on above: ADA recommended refe rence rangeRandom Glucose Reference Range is dependent on time and content of last meal. Glucose of more than 200 mg/dL in a nonstressed, ambulatory subject supports the diagnosis of Diabetes Mellitus. Hematocrit Auto (Bld) [Volum e fraction]Ordered By: Sharan Ayoub on 12-23-2022 Hematocrit (Bld) [Volume fraction] 39.9 % 38.8-50.0 [facility] Hemoglobin [Mass/volume] in BloodOrdered By: Sharan Ayoub on 12-23-2022 Hemoglobin (Bld) [Mass/Vol] 13.4 g/dL 13.0-17.0 [facility] Laboratory - Chemistry and C hemistry - challengeOrdered By: Sharan Ayoub on 12-23-2022 GFR/1.73 sq M.predicted MDRD (S/P/Bld) [Vol rate/Area] mL/min/{1.73_m2} [facility] Leukocytes [#/volume] correc roderick for nucleated erythrocytes in Blood by Automated counOrdered By: Sharan Ayoub on 12-23-2022 WBC corrected for nucl RBC Auto (Bld) [#/Vol] 6.5 10*3/uL 4.1-10.5 [facility] Lymphocytes Auto (Bld) [#/Vo l]Ordered By: Sharan Ayoub on 12-23-2022 Lymphocytes (Bld) [#/Vol] 2.4 10*3/uL 1.00-4.8 [facility] Lymphocytes/100 WBC Auto (Bl d)Ordered By: Sharan Ayoub on 12-23-2022 Lymphocytes/100 WBC (Bld) 37.4 % . [facility] MCH Auto (RBC) [Entitic mass ]Ordered By: Sharan Ayoub on 12-23-2022 MCH (RBC) [Entitic mass] 31.1 pg 27.5-35.2 [facility] MCHC Auto (RBC) [Mass/Vol]Or dered By: Sharan Ayoub on 12-23-2022 MCHC (RBC) [Mass/Vol] 33.6 g/dL 32.5-35.6 [facility] MCV Auto (RBC) [Entitic vol] Ordered By: Sharan Ayoub on 12-23-2022 MCV (RBC) [Entitic vol] 92.7 fL 83.5-101 [facility] Monocytes Auto (Bld) [#/Vol] Ordered By: Sharan Ayoub on 12-23-2022 Monocytes (Bld) [#/Vol] 0.6 10*3/uL 0.0-0.8 [facility] Monocytes/100 WBC Auto (Bld) Ordered By: Sharan Ayoub on 12-23-2022 Monocytes/100 WBC (Bld) 8.6 % . [facility] Neutrophils Auto (Bld) [#/Vo l]Ordered By: Sharan Ayoub on 12-23-2022 Neutrophils (Bld) [#/Vol] 3.4 10*3/uL 1.8-7.7 [facility] Neutrophils/100 WBC Auto (Bl d)Ordered By: Sharan Ayoub on 12-23-2022 Neutrophils/100 WBC (Bld) 51.6 % . [facility] No Panel InformationOrdered By: Sharan Ayoub on 12-23-2022 Pharmacy Creatinine Clearance (Chem N/A [facility] Tacrolimus (Prograf) Level Sent to [facility] Nucleated erythrocytes [Pres ence] in Blood by Automated countOrdered By: Sharan Ayoub on 12-23-2022 Nucleated RBC Auto Ql (Bld) 0.1 /100{WBC} 0-0.5 [facility] Platelet mean volume Auto (B ld) [Entitic vol]Ordered By: Sharan Ayoub on 12-23-2022 Platelet mean volume (Bld) [Entitic vol] 10.1 fL 6.6-10.1 [facility] Platelets Auto (Bld) [#/Vol] Ordered By: Sharan Ayoub on 12-23-2022 Platelets (Bld) [#/Vol] 207 10*3/uL 150-450 [facility] Potassium [Moles/volume] in Serum or PlasmaOrdered By: Sharan Ayoub on 12-23-2022 Potassium [Moles/Vol] 4.0 mmol/L 3.5-5.1 [facility] Protein [Mass/volume] in Ser um or PlasmaOrdered By: Sharan Ayoub on 12-23-2022 Protein [Mass/Vol] 6.9 g/dL 6.4-8.9 [facility] RBC Auto (Bld) [#/Vol]Ordere d By: Sharan Ayoub on 12-23-2022 RBC (Bld) [#/Vol] 4.31 10*6/uL 3.90-5.60 [facility] Serum or plasma albumin/glob ulin mass ratioOrdered By: Sharan Ayoub on 12-23-2022 Albumin/Globulin [Mass ratio] 1.2 {ratio} [facility] Serum or plasma anion gap de terminationOrdered By: Sharan Ayoub on 12-23-2022 Anion gap [Moles/Vol] 10.8 mmol/L 6.0-15.0 [facility] Sodium [Moles/volume] in Ser um or PlasmaOrdered By: Sharan Ayoub on 12-23-2022 Sodium [Moles/Vol] 139 mmol/L 136-145 [facility] Tacrolimuson 12-23-2022 Tacrolimus (Bld) [Mass/Vol] 5.8 ng/mL 2.0 - 15.0 [facility] [place] [address] Work Phone: Comment on above: NOTE: Result was obt ained using a chemiluminescent microparticle immunoassay (CMIA) on the [employer] system.Optimal therapeutic ranges for immuno-suppressant drugs depend upon an individualpatient's current clinical state, type oforgan transplant, time post-transplant,co-administration of other immunosuppressants,and other clinical factors. The results ofthis test should be correlated with additionalclinical and laboratory data before changesin treatment regimens are made. Urea nitrogen [Mass/volume] in Serum or PlasmaOrdered By: Sharan Ayoub on 12-23-2022 Urea nitrogen [Mass/Vol] 20 mg/dL 7-25 [facility] WBC Auto (Bld) [#/Vol]Ordere d By: Sharan Ayoub on 12-23-2022 WBC (Bld) [#/Vol] 6.5 10*3/uL 4.1-10.5 [facility] TACROLIMUSon 11-03-2022 Tacrolimus (Bld) [Mass/Vol] 9.2 ng/mL Normal 2.0 - 15.0 [facility] Comment on above: Result Comment: NOTE : Result was obtained using a chemiluminescent microparticle immunoassay (CMIA) on the [employer] i system. Optimal therapeutic ranges for immuno- suppressant drugs depend upon an individual patient's current clinical state, type of organ transplant, time post-transplant, co-administration of other immunosuppressants, and other clinical factors. The results of this test should be correlated with additional clinical and laboratory data before changes in treatment regimens are made. Performed By: #### F K506 #### [facility] [address] [place] [address] Basophils Auto (Bld) [#/Vol] Ordered By: Sharan Ayoub on 11-02-2022 Basophils (Bld) [#/Vol] 0.0 10*3/uL 0.0-0.2 [facility] Basophils/100 WBC Auto (Bld) Ordered By: Sharan Ayoub on 11-02-2022 Basophils/100 WBC (Bld) 0.9 % . [facility] Body fluid albumin measureme nt (mass/volume)Ordered By: Sharan Ayoub on 11-02-2022 Albumin (Body fld) [Mass/Vol] 3.5 g/dL 3.2-5.5 [facility] Creatinine and Glomerular fi ltration rate.predicted panel (S/P/Bld)Ordered By: Sharan Ayoub on 11-02-2022 Creatinine [Mass/Vol] 0.95 mg/dL 0.64-1.27 [facility] Eosinophils Auto (Bld) [#/Vo l]Ordered By: Sharan Ayoub on 11-02-2022 Eosinophils (Bld) [#/Vol] 0.1 10*3/uL 0.0-0.45 [facility] Eosinophils/100 WBC Auto (Bl d)Ordered By: Sharan Ayoub on 11-02-2022 Eosinophils/100 WBC (Bld) 2.1 % . [facility] Erythrocyte distribution wid th Auto (RBC) [Ratio]Ordered By: Sharan Ayoub on 11-02-2022 Erythrocyte distribution width (RBC) [Ratio] 13.9 % 12.0-14.8 [facility] Estimated glomerular filtrat ion rate (GFR) non- AmericanOrdered By: Sharan Ayoub on 11-02-2022 GFR/1.73 sq M.predicted among non-blacks MDRD (S/P/Bld) [Vol rate/Area] > 60 mL/Min [facility] Globulin Calc (S) [Mass/Vol] Ordered By: Sharan Ayoub on 11-02-2022 Globulin (S) [Mass/Vol] 3.0 g/dL [facility] Hematocrit Auto (Bld) [Volum e fraction]Ordered By: Sharan Ayoub on 11-02-2022 Hematocrit (Bld) [Volume fraction] 43.7 % 38.8-50.0 [facility] Hemoglobin [Mass/volume] in BloodOrdered By: Sharan Ayoub on 11-02-2022 Hemoglobin (Bld) [Mass/Vol] 14.4 g/dL 13.0-17.0 [facility] Leukocytes [#/volume] correc roderick for nucleated erythrocytes in Blood by Automated counOrdered By: Sharan Ayoub on 11-02-2022 WBC corrected for nucl RBC Auto (Bld) [#/Vol] 5.5 10*3/uL 4.1-10.5 [facility] Lymphocytes Auto (Bld) [#/Vo l]Ordered By: Sharan Ayoub on 11-02-2022 Lymphocytes (Bld) [#/Vol] 2.4 10*3/uL 1.00-4.8 [facility] Lymphocytes/100 WBC Auto (Bl d)Ordered By: Sharan Ayoub on 11-02-2022 Lymphocytes/100 WBC (Bld) 43.9 % . [facility] MCH Auto (RBC) [Entitic mass ]Ordered By: Sharan Ayoub on 11-02-2022 MCH (RBC) [Entitic mass] 30.5 pg 27.5-35.2 [facility] MCHC Auto (RBC) [Mass/Vol]Or dered By: Sharan Ayoub on 11-02-2022 MCHC (RBC) [Mass/Vol] 33.0 g/dL 32.5-35.6 [facility] MCV Auto (RBC) [Entitic vol] Ordered By: Sharan Ayoub on 11-02-2022 MCV (RBC) [Entitic vol] 92.5 fL 83.5-101 [facility] Monocytes Auto (Bld) [#/Vol] Ordered By: Sharan Ayoub on 11-02-2022 Monocytes (Bld) [#/Vol] 0.6 10*3/uL 0.0-0.8 [facility] Monocytes/100 WBC Auto (Bld) Ordered By: Sharan Ayoub on 11-02-2022 Monocytes/100 WBC (Bld) 10.7 % . [facility] Neutrophils Auto (Bld) [#/Vo l]Ordered By: Sharan Ayoub on 11-02-2022 Neutrophils (Bld) [#/Vol] 2.3 10*3/uL 1.8-7.7 [facility] Neutrophils/100 WBC Auto (Bl d)Ordered By: Sharan Ayoub on 11-02-2022 Neutrophils/100 WBC (Bld) 42.4 % . [facility] No Panel InformationOrdered By: Sharan Ayoub on 11-02-2022 Estimated GFR () > 60 mL/Min [facility] Comment on above: GFR estimated refere nce range: According to KDOQI guidelines, <60 ml/min/1.73m2 is sufficient to diagnose a patient with chronic kidney disease. Pharmacy Creatinine Clearance (Chem N/A [facility] Tacrolimus (Prograf) Level Sent to [facility] Nucleated erythrocytes [Pres ence] in Blood by Automated countOrdered By: Sharan Ayoub on 11-02-2022 Nucleated RBC Auto Ql (Bld) 0.1 /100{WBC} 0-0.5 [facility] Platelet mean volume Auto (B ld) [Entitic vol]Ordered By: Sharan Ayoub on 11-02-2022 Platelet mean volume (Bld) [Entitic vol] 9.9 fL 6.6-10.1 [facility] Platelets Auto (Bld) [#/Vol] Ordered By: Sharan Ayoub on 11-02-2022 Platelets (Bld) [#/Vol] 199 10*3/uL 150-450 [facility] Protein [Mass/volume] in Ser um or PlasmaOrdered By: Sharan Ayoub on 11-02-2022 Protein [Mass/Vol] 6.5 g/dL 6.1-7.9 [facility] RBC Auto (Bld) [#/Vol]Ordere d By: Sharan Ayoub on 11-02-2022 RBC (Bld) [#/Vol] 4.72 10*6/uL 3.90-5.60 [facility] Serum or plasma alanine weaver otransferase measurement without P-5'-P (enzymatic activiOrdered By: Sharan Ayoub on 11-02-2022 ALT No additional P-5'-P [Catalytic activity/Vol] 86 U/L 10-60 [facility] Serum or plasma albumin/glob ulin mass ratioOrdered By: Sharan Ayoub on 11-02-2022 Albumin/Globulin [Mass ratio] 1.2 {ratio} [facility] Serum or plasma alkaline roe sphatase measurement (enzymatic activity/volume)Ordered By: Sharan Ayoub on 11-02-2022 ALP [Catalytic activity/Vol] 149 U/L 32-92 [facility] Serum or plasma anion gap de terminationOrdered By: Sharan Ayoub on 11-02-2022 Anion gap [Moles/Vol] 15.2 mmol/L 6.0-15.0 [facility] Serum or plasma aspartate am inotransferase measurement (enzymatic activity/volume)Ordered By: Sharan Ayoub on 11-02-2022 AST [Catalytic activity/Vol] 67 U/L 10-42 [facility] Serum or plasma calcium vini urement (mass/volume)Ordered By: Sharan Ayoub on 11-02-2022 Calcium [Mass/Vol] 9.4 mg/dL 8.2-10.2 [facility] Serum or plasma chloride jose surement (moles/volume)Ordered By: Sharan Ayoub on 11-02-2022 Chloride [Moles/Vol] 98 mmol/L 95-114 [facility] Serum or plasma glucose vini urement (mass/volume)Ordered By: Sharan Ayoub on 11-02-2022 Glucose [Mass/Vol] 176 mg/dL 70-100 [facility] Comment on above: ADA recommended refe rence rangeRandom Glucose Reference Range is dependent on time and content of last meal. Glucose of more than 200 mg/dL in a nonstressed, ambulatory subject supports the diagnosis of Diabetes Mellitus. Serum or plasma potassium me asurement (moles/volume)Ordered By: Sharan Ayoub on 11-02-2022 Potassium [Moles/Vol] 3.7 mmol/L 3.5-5.1 [facility] Serum or plasma sodium measu rement (moles/volume)Ordered By: Sharan Ayoub on 11-02-2022 Sodium [Moles/Vol] 139 mmol/L 136-146 [facility] Serum or plasma total biliru bin measurement (mass/volume)Ordered By: Sharan Ayoub on 11-02-2022 Bilirubin [Mass/Vol] 1.1 mg/dL 0.3-1.2 [facility] Serum or plasma total carbon dioxide measurement (moles/volume)Ordered By: Sharan Ayoub on 11-02-2022 CO2 [Moles/Vol] 29.5 mmol/L 22.0-30.0 [facility] Serum or plasma urea nitroge n measurement (mass/volume)Ordered By: Sharan Ayoub on 11-02-2022 Urea nitrogen [Mass/Vol] 10 mg/dL 9 [facility] Tacrolimuson 11-02-2022 Tacrolimus (Bld) [Mass/Vol] 9.2 ng/mL 2.0 - 15.0 [facility] [address] [facility] Work Phone: Comment on above: NOTE: Result was obt ained using a chemiluminescent microparticle immunoassay (CMIA) on the [employer] i system.Optimal therapeutic ranges for immuno-suppressant drugs depend upon an individualpatient's current clinical state, type oforgan transplant, time post-transplant,co-administration of other immunosuppressants,and other clinical factors. The results ofthis test should be correlated with additionalclinical and laboratory data before changesin treatment regimens are made. WBC Auto (Bld) [#/Vol]Ordere d By: Sharan Ayoub on 11-02-2022 WBC (Bld) [#/Vol] 5.5 10*3/uL 4.1-10.5 [facility] AMYLASEon 10-26-2022 Amylase [Catalytic activity/Vol] 69 U/L Normal 25-115 [facility] Comment on above: Performed By: #### B MP, LIVER, LIPA, CHACHA ####[facility] [address] [place] [id number]. Aleksandar Almeida CBC AUTO DIFFon 10-26-2022 BASO # 0.0 103/ul Normal 0.0-0.1 [facility] Comment on above: Performed By: #### C BC ####[facility] [address] [place], [place] [address]Yc. Aleksandar Almeida Basophils/100 WBC (Bld) 0.7 % Normal 0.2-2.0 [facility] Comment on above: Performed By: #### C BC ####[facility] [address] [place], [place] [address]DrBaldve Almeida EO # 0.1 103/ul Normal 0.0-0.7 [facility] Comment on above: Performed By: #### C BC ####[facility] [address] [place], [place] [address]Dr. Aleksandar Almeida Eosinophils/100 WBC (Bld) 1.1 % Normal 0.9-7.0 [facility] Comment on above: Performed By: #### C BC ####[facility] [address] [place], [place] [address]Dr. Aleksandar Almeida Erythrocyte distribution width (RBC) [Ratio] 12.5 % Normal 11.0-15.0 [facility] Comment on above: Performed By: #### C BC ####[facility] [address] [place], [place] [address]Dr. Aleksandar Almeida Hematocrit (Bld) [Volume fraction] 42.9 % Normal 42.0-54.0 [facility] Comment on above: Performed By: #### C BC ####[facility] [address] [place], [place] [address]DrBaldev Almeida Hemoglobin (Bld) [Mass/Vol] 13.6 g/dL Critically low 14.0-18.0 [facility] Comment on above: Performed By: #### C BC ####[facility] [address] [place], [place] [address]Dr. Aleksandar Almeida IG # 0.01 10e3/ul Normal 0.00-0.03 [facility] Comment on above: Performed By: #### C BC ####[facility] [address] [place], [place] [address]Dr. Aleksandar Almeida IG % 0.2 % Normal 0.0-0.5 [facility] Comment on above: Performed By: #### C BC ####[facility] [address] [place], [place] [address]Dr. Aleksandar Almeida LYMPH # 2.3 103/ul Normal 1.2-3.8 [facility] Comment on above: Performed By: #### C BC ####[facility] [address] [place] [address]DrBaldev Almeida Lymphocytes/100 WBC (Bld) 41.7 % Normal 20.5-60.0 [facility] Comment on above: Performed By: #### C BC ####[facility] [address] [place], [place] [address]DrBaldev Almeida MANUAL DIFF REQ NO Normal [facility] Comment on above: Performed By: #### C BC ####[facility] [address] [place], [place] [address]DrBaldev Almeida MCH (RBC) [Entitic mass] 30.9 pg Normal 25.9-34.0 [facility] Comment on above: Performed By: #### C BC ####[facility] [address] [place], [place] [address]DrBaldev Almeida MCHC (RBC) [Mass/Vol] 31.7 g/dL Normal 29.9-35.2 [facility] Comment on above: Performed By: #### C BC ####[facility] [address] [place], [place] [address]DrBaldev Almeida MCV (RBC) [Entitic vol] 97.5 fL Critically high 80.0-94.0 [facility] Comment on above: Performed By: #### C BC ####[facility] [address] [place], [place] [address]DrBaldev Almeida MONO # 0.5 103/ul Normal 0.3-0.8 [facility] Comment on above: Performed By: #### C BC ####[facility] [address] [place], [place] [address]DrBaldev Almeida Monocytes/100 WBC (Bld) 8.1 % Normal 1.7-12.0 [facility] Comment on above: Performed By: #### C BC ####[facility] [address] [place], [place] [address]DrBaldev Almeida NEUT # 2.7 103/ul Normal 1.4-6.5 [facility] Comment on above: Performed By: #### C BC ####[facility] [address] [place] [address]Dr. Aleksandar Almeida Neutrophils/100 WBC (Bld) 48.2 % Normal 43.0-75.0 [facility] Comment on above: Performed By: #### C BC ####[facility] [address] [place] [address]Dr. Aleksandar Almeida Platelet mean volume (Bld) [Entitic vol] 11.0 fL Normal 9.5-13.5 [facility] Comment on above: Performed By: #### C BC ####[facility] [address] [place], [place] [address]Dr. Aleksandar Almeida PLT 175 103/ul Normal 150-450 [facility] Comment on above: Performed By: #### C BC ####[facility] [address] [place], [place] [address]Dr. Aleksandar Almeida RBC 4.40 106/ul Critically low 4.70-6.10 [facility] Comment on above: Performed By: #### C BC ####[facility] [address] [place], [place] [address]DrBaldev Almeida WBC 5.6 103/ul Normal 4.0-11.0 [facility] Comment on above: Performed By: #### C BC ####[facility] [address] [place], [place] [address]DrBaldev Almeida ER URINE PROFILEon 3 Bilirubin Ql (U) Negative Normal NEGATIVE [facility] Comment on above: Performed By: #### E RUR #### [facility] [address] [address] [address] Aleksandar Almeida Clarity (U) CLEAR Normal CLEAR [facility] Comment on above: Performed By: #### E RUR #### [facility] [address] [place] [address] Dr. Aleksandar Almeida Color (U) YELLOW Normal YELLOW [facility] Comment on above: Performed By: #### E RUR #### [facility] [address] [place] [address] Dr. Aleksandar MORAN A micrscopic examina tion will be performed if indicated. Normal [facility] Comment on above: Performed By: #### E RUR #### [facility] [address] [place] [address] Dr. Aleksandar Almeida Glucose Ql (U) >1000 Abnormal NEGATIVE [facility] Comment on above: Performed By: #### E RUR #### [facility] [address] [place] [address] Dr. Aleksandar Almeida Hemoglobin Ql (U) Negative Normal NEGATIVE [facility] Comment on above: Performed By: #### E RUR #### [facility] [address] [place] [address] Dr. Aleksandar Almeida Ketones Ql (U) TRACE Abnormal NEGATIVE [facility] Comment on above: Performed By: #### E RUR #### [facility] [address] [place] [address] Dr. Aleksandar Almeida LEUKOCYTES Negative Normal NEGATIVE [facility] Comment on above: Performed By: #### E RUR #### [facility] [address] [place] [address] Dr. Aleksandar Almeida Nitrite Ql (U) Negative Normal NEGATIVE [facility] Comment on above: Performed By: #### E RUR #### [facility] [address] [place] [address] Dr. Aleksandar Almeida pH (U) 6.0 [pH] Normal 5-9 [facility] Comment on above: Performed By: #### E RUR #### [facility] [address] [place] [address] Dr. Aleksandar Almeida SPEC GRAVITY 1.020 Normal 1.005-<=1.02 5 [facility] Comment on above: Performed By: #### E RUR #### [facility] [address] [place] [address] Dr. Aleksandar Almeida UA PROTEIN Negative Normal NEGATIVE/ TRACE [facility] Comment on above: Performed By: #### E RUR #### [facility] [address] [place] [address] Dr. Aleksandar Almeida UR MICRO IND NOT INDICATED Normal [facility] Comment on above: Performed By: #### E RUR #### [facility] [address] [place] [address] Dr. Aleksandar Almeida Urobilinogen Qn (U) 0.2 {Jacinta'U}/dL Normal 0.2 - 1. 0 [facility] Comment on above: Performed By: #### E RUR #### [facility] [address] [place] [address] Dr. Aleksandar Almeida LIPASEon 10-26-2022 Lipase [Catalytic activity/Vol] 47.0 U/L Critically low 73.0-393.0 [facility] Comment on above: Performed By: #### B MP, LIVER, LIPA, CHACHA ####[facility] [address] [place] [address]Dr. Aleksandar Almeida LIVER PROFILEon 10-26-2022 Albumin [Mass/Vol] 3.2 g/dL Critically low 3.4-5.0 [facility] Comment on above: Performed By: #### B MP, LIVER, LIPA, CHACHA #### [facility] [address] [place] [address] Dr. Aleksandar Almeida Albumin/Globulin [Mass ratio] 0.9 {ratio} Normal [facility] Comment on above: Performed By: #### B MP, LIVER, LIPA, CHACHA #### [facility] [address] [place] [address] Dr. Aleksandar Almeida ALP [Catalytic activity/Vol] 177 U/L Critically high 46-116 [facility] Comment on above: Performed By: #### B MP, LIVER, LIPA, CHACHA #### [facility] [address] [place] [address] Dr. Aleksandar Almeida ALT [Catalytic activity/Vol] 105 U/L Critically high 16-63 [facility] Comment on above: Performed By: #### B MP, LIVER, LIPA, CHACHA #### [facility] [address] [place] [address] Dr. Aleksandar Almeida AST [Catalytic activity/Vol] 74 U/L Critically high 15-37 [facility] Comment on above: Performed By: #### B MP, LIVER, LIPA, CHACHA #### [facility] [address] [place] [address] Dr. Aleksandar Almeida BILI, CONJUGATED 0.4 mg/dL Critically high 0.0-0.2 [facility] Comment on above: Performed By: #### B MP, LIVER, LIPA, CHACHA #### [facility] [address] [place] [address] Dr. Aleksandar Almeida Bilirubin [Mass/Vol] 0.9 mg/dL Normal 0.2-1.0 [facility] Comment on above: Performed By: #### B MP, LIVER, LIPA, CHACHA #### [facility] [address] [place] [address] Dr. Aleksandar Almeida Globulin (S) [Mass/Vol] 3.6 g/dL Normal [facility] Comment on above: Performed By: #### B MP, LIVER, LIPA, CHACHA #### [facility] [address] [place] [address] Dr. Aleksandar Almeida Protein [Mass/Vol] 6.8 g/dL Normal 6.4-8.2 [facility] Comment on above: Performed By: #### B MP, LIVER, LIPA, CHACHA #### [facility] [address] [place] [address] Dr. Aleksandar Almeida POINT OF CARE GLUCOSEon 10-03 Glucose [Mass/Vol] 313 mg/dL Critically high 74-106 [facility] Comment on above: Performed By: #### P OCGLUC #### [facility] [address] [place] [address] Dr. Aleksandar Almeida PROF CHEM 8 (BAS METB)on Anion gap [Moles/Vol] 9.2 mmol/L Normal [facility] Comment on above: Performed By: #### B MP, LIVER, LIPA, CHACHA #### [facility] [address] [place] [address] Dr. Aleksandar Almeida Calcium [Mass/Vol] 9.2 mg/dL Normal 8.5-10.1 [facility] Comment on above: Performed By: #### B MP, LIVER, LIPA, CHACHA #### [facility] [address] [place] [address] Dr. Aleksandar Almeida Chloride [Moles/Vol] 102 mmol/L Normal 98-107 [facility] Comment on above: Performed By: #### B MP, LIVER, LIPA, CHACHA #### [facility] [address] [place] [address] Dr. Aleksandar Almeida CO2 [Moles/Vol] 29.7 mmol/L Normal 21.0-32.0 [facility] Comment on above: Performed By: #### B MP, LIVER, LIPA, CHACHA #### [facility] [address] [place] [address] Dr. Aleksandar Almeida Creatinine [Mass/Vol] 1.05 mg/dL Normal 0.70-1.30 [facility] Comment on above: Performed By: #### B MP, LIVER, LIPA, CHACHA #### [facility] [address] [place] [address] Dr. Aleksandar Almeida EGFR-AF KAZAKH >60 Normal >=60 [facility] Comment on above: Performed By: #### B MP, LIVER, LIPA, CHACHA #### [facility] [address] [place] [address] Dr. Aleksandar Almeida EGFR-NON AF KAZAKH >60 Normal >=60 [facility] Comment on above: Performed By: #### B MP, LIVER, LIPA, CHACHA #### [facility] [address] [place] [address] Dr. Aleksandar Almeida Glucose [Mass/Vol] 357 mg/dL Critically high 74-106 [facility] Comment on above: Performed By: #### B MP, LIVER, LIPA, CHACHA #### [facility] [address] [place] [address] Dr. Aleksandar Almeida Potassium [Moles/Vol] 3.9 mmol/L Normal 3.5-5.1 [facility] Comment on above: Performed By: #### B MP, LIVER, LIPA, CHACHA #### [facility] [address] [address] [address] Aleksandar Almeida Sodium [Moles/Vol] 137 mmol/L Normal 136-145 [facility] Comment on above: Performed By: #### B MP, LIVER, LIPA, CHACHA #### [facility] [address] [address] [address] Aleksandar Almeida Urea nitrogen [Mass/Vol] 17.0 mg/dL Normal 7.0-18.0 [facility] Comment on above: Performed By: #### B MP, LIVER, LIPA, CHACHA #### [facility] [address] [address] [address] Aleksandar Almeida Urea nitrogen/Creatinine [Mass ratio] 16.2 mg/mg Normal [facility] Comment on above: Performed By: #### B MP, LIVER, LIPA, CHACHA #### [facility] [address] [place] [address] Dr. Aleksandar Almeida TACROLIMUSon 08-10-2022 Tacrolimus (Bld) [Mass/Vol] 7.2 ng/mL Normal 2.0 - 15.0 [facility] Comment on above: Result Comment: NOTE : Result was obtained using a chemiluminescent microparticle immunoassay (CMIA) on the [employer] system. Optimal therapeutic ranges for immuno- suppressant drugs depend upon an individual patient's current clinical state, type of organ transplant, time post-transplant, co-administration of other immunosuppressants, and other clinical factors. The results of this test should be correlated with additional clinical and laboratory data before changes in treatment regimens are made. Performed By: #### F [id number] #### [facility] [id number] [place] [address] Albumin [Mass/volume] in Ser um or PlasmaOrdered By: Sharan Ayoub on 08-09-2022 Albumin [Mass/Vol] 3.7 g/dL 3.2-5.5 [facility] Basophils Auto (Bld) [#/Vol] Ordered By: Sharan Ayoub on 08-09-2022 Basophils (Bld) [#/Vol] 0.1 10*3/uL 0.0-0.2 [facility] Basophils/100 WBC Auto (Bld) Ordered By: Sharan Ayoub on 08-09-2022 Basophils/100 WBC (Bld) 1.1 % . [facility] Creatinine and Glomerular fi ltration rate.predicted panel (S/P/Bld)Ordered By: Sharan Ayoub on 08-09-2022 Creatinine [Mass/Vol] 1.13 mg/dL 0.64-1.27 [facility] Eosinophils Auto (Bld) [#/Vo l]Ordered By: Sharan Ayoub on 08-09-2022 Eosinophils (Bld) [#/Vol] 0.0 10*3/uL 0.0-0.45 [facility] Eosinophils/100 WBC Auto (Bl d)Ordered By: Sharan Ayoub on 08-09-2022 Eosinophils/100 WBC (Bld) 0.7 % . [facility] Erythrocyte distribution wid th Auto (RBC) [Ratio]Ordered By: Sharan Ayoub on 08-09-2022 Erythrocyte distribution width (RBC) [Ratio] 13.3 % 12.0-14.8 [facility] Estimated glomerular filtrat ion rate (GFR) non- AmericanOrdered By: Sharan Ayoub on 08-09-2022 GFR/1.73 sq M.predicted among non-blacks MDRD (S/P/Bld) [Vol rate/Area] > 60 mL/Min [facility] Globulin Calc (S) [Mass/Vol] Ordered By: Sharan Ayoub on 08-09-2022 Globulin (S) [Mass/Vol] 3.6 g/dL [facility] Hematocrit Auto (Bld) [Volum e fraction]Ordered By: Sharan Ayoub on 08-09-2022 Hematocrit (Bld) [Volume fraction] 42.9 % 38.8-50.0 [facility] Hemoglobin [Mass/volume] in BloodOrdered By: Sharan Ayoub on 08-09-2022 Hemoglobin (Bld) [Mass/Vol] 14.5 g/dL 13.0-17.0 [facility] Laboratory - Hematology and Cell countsOrdered By: Sharan Ayoub on 08-09-2022 Nucleated RBC/100 WBC (Bld) [Ratio] 0.1 % 0-0.5 [facility] Leukocytes [#/volume] in Blo od by Automated countOrdered By: Sharan Ayoub on 08-09-2022 WBC (Bld) [#/Vol] 5.8 10*3/uL 4.5-11.0 [facility] Lymphocytes Auto (Bld) [#/Vo l]Ordered By: Sharan Ayoub on 08-09-2022 Lymphocytes (Bld) [#/Vol] 2.4 10*3/uL 1.00-4.8 [facility] Lymphocytes/100 WBC Auto (Bl d)Ordered By: Sharan Ayoub on 08-09-2022 Lymphocytes/100 WBC (Bld) 41.4 % . [facility] MCH Auto (RBC) [Entitic mass ]Ordered By: Sharan Ayoub on 08-09-2022 MCH (RBC) [Entitic mass] 31.2 pg 27.5-35.2 [facility] MCHC Auto (RBC) [Mass/Vol]Or dered By: Sharan Ayoub on 08-09-2022 MCHC (RBC) [Mass/Vol] 33.8 g/dL 32.5-35.6 [facility] MCV Auto (RBC) [Entitic vol] Ordered By: Sharan Ayoub on 08-09-2022 MCV (RBC) [Entitic vol] 92.5 fL 83.5-101 [facility] Monocytes Auto (Bld) [#/Vol] Ordered By: Sharan Ayoub on 08-09-2022 Monocytes (Bld) [#/Vol] 0.4 10*3/uL 0.0-0.8 [facility] Monocytes/100 WBC Auto (Bld) Ordered By: Sharan Ayoub on 08-09-2022 Monocytes/100 WBC (Bld) 7.6 % . [facility] Neutrophils Auto (Bld) [#/Vo l]Ordered By: Sharan Ayoub on 08-09-2022 Neutrophils (Bld) [#/Vol] 2.9 10*3/uL 1.8-7.7 [facility] Neutrophils/100 WBC Auto (Bl d)Ordered By: Sharan Ayoub on 08-09-2022 Neutrophils/100 WBC (Bld) 49.2 % . [facility] No Panel InformationOrdered By: Sharan Ayoub on 08-09-2022 Estimated GFR () > 60 mL/Min [facility] Comment on above: GFR estimated refere nce range: According to KDOQI guidelines, <60 ml/min/1.73m2 is sufficient to diagnose a patient with chronic kidney disease. Pharmacy Creatinine Clearance (Chem N/A [facility] Tacrolimus (Prograf) Level Sent to [facility] Platelet mean volume Auto (B ld) [Entitic vol]Ordered By: Sharan Ayoub on 08-09-2022 Platelet mean volume (Bld) [Entitic vol] 10.2 fL 6.6-10.1 [facility] Platelets Auto (Bld) [#/Vol] Ordered By: Sharan Ayoub on 08-09-2022 Platelets (Bld) [#/Vol] 202 10*3/uL 150-450 [facility] Protein [Mass/volume] in Ser um or PlasmaOrdered By: Sharan Ayoub on 08-09-2022 Protein [Mass/Vol] 7.3 g/dL 6.1-7.9 [facility] RBC Auto (Bld) [#/Vol]Ordere d By: Sharan Ayoub on 08-09-2022 RBC (Bld) [#/Vol] 4.64 10*6/uL 3.90-5.60 [facility] Serum or plasma alanine weaver otransferase measurement without P-5'-P (enzymatic activiOrdered By: Sharan Ayoub on 08-09-2022 ALT No additional P-5'-P [Catalytic activity/Vol] 73 U/L 10-60 [facility] Serum or plasma albumin/glob ulin mass ratioOrdered By: Sharan Ayoub on 08-09-2022 Albumin/Globulin [Mass ratio] 1.0 {ratio} [facility] Serum or plasma alkaline roe sphatase measurement (enzymatic activity/volume)Ordered By: Sharan Ayoub on 08-09-2022 ALP [Catalytic activity/Vol] 134 U/L 32-92 [facility] Serum or plasma anion gap de terminationOrdered By: Sharan Ayoub on 08-09-2022 Anion gap [Moles/Vol] 10.3 mmol/L 6.0-15.0 [facility] Serum or plasma aspartate am inotransferase measurement (enzymatic activity/volume)Ordered By: Sharan Ayoub on 08-09-2022 AST [Catalytic activity/Vol] 73 U/L 10-42 [facility] Serum or plasma calcium vini urement (mass/volume)Ordered By: Sharan Ayoub on 08-09-2022 Calcium [Mass/Vol] 9.5 mg/dL 8.2-10.2 [facility] Serum or plasma chloride jose surement (moles/volume)Ordered By: Sharan Ayoub on 08-09-2022 Chloride [Moles/Vol] 98 mmol/L 95-114 [facility] Serum or plasma glucose vini urement (mass/volume)Ordered By: Sharan Ayoub on 08-09-2022 Glucose [Mass/Vol] 154 mg/dL 70-100 [facility] Comment on above: ADA recommended refe rence rangeRandom Glucose Reference Range is dependent on time and content of last meal. Glucose of more than 200 mg/dL in a nonstressed, ambulatory subject supports the diagnosis of Diabetes Mellitus. Serum or plasma potassium me asurement (moles/volume)Ordered By: Sharan Ayoub on 08-09-2022 Potassium [Moles/Vol] 3.7 mmol/L 3.5-5.1 [facility] Serum or plasma sodium measu rement (moles/volume)Ordered By: Sharan Ayoub on 08-09-2022 Sodium [Moles/Vol] 135 mmol/L 136-146 [facility] Serum or plasma total biliru bin measurement (mass/volume)Ordered By: Sharan Ayoub on 08-09-2022 Bilirubin [Mass/Vol] 1.0 mg/dL 0.3-1.2 [facility] Serum or plasma total carbon dioxide measurement (moles/volume)Ordered By: Sharan Ayoub on 08-09-2022 CO2 [Moles/Vol] 30.4 mmol/L 22.0-30.0 [facility] Serum or plasma urea nitroge n measurement (mass/volume)Ordered By: Sharan Ayoub on 08-09-2022 Urea nitrogen [Mass/Vol] 11 mg/dL 06-24 [facility] Tacrolimuson 08-09-2022 Tacrolimus (Bld) [Mass/Vol] 7.2 ng/mL 2.0 - 15.0 [facility] [place] [address] [place] Work Phone: Comment on above: NOTE: Result was obt ained using a chemiluminescent microparticle immunoassay (CMIA) on the [employer] system.Optimal therapeutic ranges for immuno-suppressant drugs [...] transplant; JOSEFINA = N; Verified Transmission to [facility] [id number] Formulary Override Reason: Drug is not indicated for Patient condition Patient Discussion/Summary continue your current medications as prescribed see a terminal clerk for your annual skin check up have [...] BLOOD SUGA (more content not included)... Normal Room 77works Tobacco Screening.on 022 Fall risk assessment a) No falls within the last year [facility] Work Phone: Tobacco use status CPHS b) No [facility] Work Phone: No Panel InformationOrdered By: Sharan Ayoub on 05-11-2022 Tacrolimus (Prograf) Level Sent to [facility] Tacrolimuson 05-11-2022 Tacrolimus (Bld) [Mass/Vol] 9.9 ng/mL 2.0 - 15.0 [facility] Work Phone: Comment on above: NOTE: Result was obt ained using a chemiluminescent microparticle immunoassay (CMIA) on the [employer] i system.Optimal therapeutic ranges for immuno-suppressant drugs depend upon an individualpatient's current clinical state, type oforgan transplant, time post-transplant,co-administration of other immunosuppressants,and other clinical factors. The results ofthis test should be correlated with additionalclinical and laboratory data before changesin treatment regimens are made. Tacrolimuson 05-04-2022 Tacrolimus (Bld) [Mass/Vol] 15.9 ng/mL above high threshold 2.0 - 15.0 [facility] [employer] Work Phone: Comment on above: NOTE: Result was obt ained using a chemiluminescent microparticle immunoassay (CMIA) on the [employer] system.Optimal therapeutic ranges for immuno-suppressant drugs depend upon an individualpatient's current clinical state, type oforgan transplant, time post-transplant,co-administration of other immunosuppressants,and other clinical factors. The results ofthis test should be correlated with additionalclinical and laboratory data before changesin treatment regimens are made. Albumin [Mass/volume] in Ser um or PlasmaOrdered By: Sharan Ayoub on 05-03-2022 Albumin [Mass/Vol] 3.7 g/dL 3.2-5.5 [facility] Basophils Auto (Bld) [#/Vol] Ordered By: Sharan Ayoub on 05-03-2022 Basophils (Bld) [#/Vol] 0.0 10*3/uL 0.0-0.2 [facility] Basophils/100 WBC Auto (Bld) Ordered By: Sharan Ayoub on 05-03-2022 Basophils/100 WBC (Bld) 0.3 % . [facility] Blood hemoglobin measurement (mass/volume)Ordered By: Sharan Ayoub on 05-03-2022 Hemoglobin (Bld) [Mass/Vol] 14.4 g/dL 13.0-17.0 [facility] Blood leukocytes automated c ount (number/volume)Ordered By: Sharan Ayoub on 05-03-2022 WBC (Bld) [#/Vol] 7.1 10*3/uL 4.5-11.0 [facility] Creatinine and Glomerular fi ltration rate.predicted panel (S/P/Bld)Ordered By: Sharan Ayoub on 05-03-2022 Creatinine [Mass/Vol] 1.10 mg/dL 0.64-1.27 [facility] Direct bilirubin measurement Ordered By: Sharan Ayoub on 05-03-2022 Bilirubin.direct [Mass/Vol] 0.2 mg/dL 0.0-0.4 [facility] Eosinophils Auto (Bld) [#/Vo l]Ordered By: Sharan Ayoub on 05-03-2022 Eosinophils (Bld) [#/Vol] 0.2 10*3/uL 0.0-0.45 [facility] Eosinophils/100 WBC Auto (Bl d)Ordered By: Sharan Ayoub on 05-03-2022 Eosinophils/100 WBC (Bld) 2.3 % . [facility] Erythrocyte distribution wid th Auto (RBC) [Ratio]Ordered By: Sharan Ayoub on 05-03-2022 Erythrocyte distribution width (RBC) [Ratio] 13.2 % 12.0-14.8 [facility] Estimated glomerular filtrat ion rate (GFR) non- AmericanOrdered By: Sharan Ayoub on 05-03-2022 GFR/1.73 sq M.predicted among non-blacks MDRD (S/P/Bld) [Vol rate/Area] > 60 mL/Min [facility] Globulin Calc (S) [Mass/Vol] Ordered By: Sharan Ayoub on 05-03-2022 Globulin (S) [Mass/Vol] 3.0 g/dL [facility] Hematocrit Auto (Bld) [Volum e fraction]Ordered By: Sharan Ayoub on 05-03-2022 Hematocrit (Bld) [Volume fraction] 42.8 % 38.8-50.0 [facility] Laboratory - Chemistry and C hemistry - challengeOrdered By: Sharan Ayoub on 05-03-2022 Amylase [Catalytic activity/Vol] 327 U/L 7-64 [facility] Laboratory - Hematology and Cell countsOrdered By: Sharan Ayoub on 05-03-2022 Nucleated RBC/100 WBC (Bld) [Ratio] 0.3 % 0-0.5 [facility] Lymphocytes Auto (Bld) [#/Vo l]Ordered By: Sharan Ayoub on 05-03-2022 Lymphocytes (Bld) [#/Vol] 3.6 10*3/uL 1.00-4.8 [facility] Lymphocytes/100 WBC Auto (Bl d)Ordered By: Sharan Ayoub on 05-03-2022 Lymphocytes/100 WBC (Bld) 50.0 % . [facility] MCH Auto (RBC) [Entitic mass ]Ordered By: Sharan Ayoub on 05-03-2022 MCH (RBC) [Entitic mass] 30.9 pg 27.5-35.2 [facility] MCHC Auto (RBC) [Mass/Vol]Or dered By: Sharan Ayoub on 05-03-2022 MCHC (RBC) [Mass/Vol] 33.7 g/dL 32.5-35.6 [facility] MCV Auto (RBC) [Entitic vol] Ordered By: Sharan Ayoub on 05-03-2022 MCV (RBC) [Entitic vol] 91.8 fL 83.5-101 [facility] Monocytes Auto (Bld) [#/Vol] Ordered By: Sharan Ayoub on 05-03-2022 Monocytes (Bld) [#/Vol] 0.6 10*3/uL 0.0-0.8 [facility] Monocytes/100 WBC Auto (Bld) Ordered By: Sharan Ayoub on 05-03-2022 Monocytes/100 WBC (Bld) 8.9 % . [facility] Neutrophils Auto (Bld) [#/Vo l]Ordered By: Sharan Ayoub on 05-03-2022 Neutrophils (Bld) [#/Vol] 2.8 10*3/uL 1.8-7.7 [facility] Neutrophils/100 WBC Auto (Bl d)Ordered By: Sharan Ayoub on 05-03-2022 Neutrophils/100 WBC (Bld) 38.5 % . [facility] No Panel InformationOrdered By: Sharan Ayoub on 05-03-2022 Estimated GFR () > 60 mL/Min [facility] Comment on above: GFR estimated refere nce range: According to KDOQI guidelines, <60 ml/min/1.73m2 is sufficient to diagnose a patient with chronic kidney disease. Pharmacy Creatinine Clearance (Chem N/A [facility] Tacrolimus (Prograf) Level Sent to [facility] Platelet mean volume Auto (B ld) [Entitic vol]Ordered By: Sharan Ayoub on 05-03-2022 Platelet mean volume (Bld) [Entitic vol] 10.2 fL 6.6-10.1 [facility] Platelets Auto (Bld) [#/Vol] Ordered By: Sharan Ayoub on 05-03-2022 Platelets (Bld) [#/Vol] 247 10*3/uL 150-450 [facility] Protein [Mass/volume] in Ser um or PlasmaOrdered By: Sharan Ayoub on 05-03-2022 Protein [Mass/Vol] 6.7 g/dL 6.1-7.9 [facility] RBC Auto (Bld) [#/Vol]Ordere d By: Sharan Ayoub on 05-03-2022 RBC (Bld) [#/Vol] 4.66 10*6/uL 3.90-5.60 [facility] Serum or plasma alanine weaver otransferase measurement without P-5'-P (enzymatic activiOrdered By: Sharan Ayoub on 05-03-2022 ALT No additional P-5'-P [Catalytic activity/Vol] 47 U/L 10-60 [facility] Serum or plasma albumin/glob ulin mass ratioOrdered By: Sharan Ayoub on 05-03-2022 Albumin/Globulin [Mass ratio] 1.2 {ratio} [facility] Serum or plasma alkaline roe sphatase measurement (enzymatic activity/volume)Ordered By: Sharan Ayoub on 05-03-2022 ALP [Catalytic activity/Vol] 123 U/L 32-92 [facility] Serum or plasma aspartate am inotransferase measurement (enzymatic activity/volume)Ordered By: Sharan Ayoub on 05-03-2022 AST [Catalytic activity/Vol] 42 U/L 10-42 [facility] Serum or plasma calcium vini urement (mass/volume)Ordered By: Sharan Ayoub on 05-03-2022 Calcium [Mass/Vol] 9.4 mg/dL 8.2-10.2 [facility] Serum or plasma chloride jose surement (moles/volume)Ordered By: Sharan Ayoub on 05-03-2022 Chloride [Moles/Vol] 104 mmol/L 95-114 [facility] Serum or plasma glucose vnii urement (mass/volume)Ordered By: Sharan Ayoub on 05-03-2022 Glucose [Mass/Vol] 117 mg/dL 70-100 [facility] Comment on above: ADA recommended refe rence range Random Glucose Reference Range is dependent on time and content of last meal. Glucose of more than 200 mg/dL in a nonstressed, ambulatory subject supports the diagnosis of Diabetes Mellitus. Serum or plasma non-glucuron idated bilirubin measurement (mass/volume)Ordered By: Sharan Ayoub on 05-03-2022 Bilirubin.indirect [Mass/Vol] 0.5 mg/dL [facility] Serum or plasma potassium me asurement (moles/volume)Ordered By: Sharan Ayoub on 05-03-2022 Potassium [Moles/Vol] 4.1 mmol/L 3.5-5.1 [facility] Serum or plasma sodium measu rement (moles/volume)Ordered By: Sharan Ayoub on 05-03-2022 Sodium [Moles/Vol] 140 mmol/L 136-146 [facility] Serum or plasma total biliru bin measurement (mass/volume)Ordered By: Sharan Ayoub on 05-03-2022 Bilirubin [Mass/Vol] 0.7 mg/dL 0.3-1.2 [facility] Serum or plasma total carbon dioxide measurement (moles/volume)Ordered By: Sharan Ayoub on 05-03-2022 CO2 [Moles/Vol] 28.6 mmol/L 22.0-30.0 [facility] Serum or plasma urea nitroge n measurement (mass/volume)Ordered By: Sharan Ayoub on 05-03-2022 Urea nitrogen [Mass/Vol] 16 mg/dL 9-23 [facility] Basophils Auto (Bld) [#/Vol] Ordered By: Sharan Ayoub on 03-11-2022 Basophils (Bld) [#/Vol] 0.1 10*3/uL 0.0-0.2 [facility] Basophils/100 WBC Auto (Bld) Ordered By: Sharan Ayoub on 03-11-2022 Basophils/100 WBC (Bld) 1.2 % . [facility] Blood hemoglobin measurement (mass/volume)Ordered By: Sharan Ayoub on 03-11-2022 Hemoglobin (Bld) [Mass/Vol] 14.1 g/dL 13.0-17.0 [facility] Blood leukocytes automated c ount (number/volume)Ordered By: Sharan Ayoub on 03-11-2022 WBC (Bld) [#/Vol] 5.0 10*3/uL 4.5-11.0 [facility] Body fluid albumin measureme nt (mass/volume)Ordered By: Sharan Ayoub on 03-11-2022 Albumin (Body fld) [Mass/Vol] 3.6 g/dL 3.2-5.5 [facility] Creatinine and Glomerular fi ltration rate.predicted panel (S/P/Bld)Ordered By: Sharan Ayoub on 03-11-2022 Creatinine [Mass/Vol] 1.15 mg/dL 0.64-1.27 [facility] Direct bilirubin measurement Ordered By: Sharan Ayoub on 03-11-2022 Bilirubin.direct [Mass/Vol] 0.2 mg/dL 0.0-0.4 [facility] Eosinophils Auto (Bld) [#/Vo l]Ordered By: Sharan Ayoub on 03-11-2022 Eosinophils (Bld) [#/Vol] 0.1 10*3/uL 0.0-0.45 [facility] Eosinophils/100 WBC Auto (Bl d)Ordered By: Sharan Ayoub on 03-11-2022 Eosinophils/100 WBC (Bld) 2.1 % . [facility] Erythrocyte distribution wid th Auto (RBC) [Ratio]Ordered By: Sharan Ayoub on 03-11-2022 Erythrocyte distribution width (RBC) [Ratio] 13.3 % 12.0-14.8 [facility] Estimated glomerular filtrat ion rate (GFR) non- AmericanOrdered By: Sharan Ayoub on 03-11-2022 GFR/1.73 sq M.predicted among non-blacks MDRD (S/P/Bld) [Vol rate/Area] > 60 mL/Min [facility] Globulin Calc (S) [Mass/Vol] Ordered By: Sharan Ayoub on 03-11-2022 Globulin (S) [Mass/Vol] 2.9 g/dL [facility] Hematocrit Auto (Bld) [Volum e fraction]Ordered By: Sharan Ayoub on 03-11-2022 Hematocrit (Bld) [Volume fraction] 41.4 % 38.8-50.0 [facility] Laboratory - Chemistry and C hemistry - challengeOrdered By: Sharan Ayoub on 03-11-2022 Amylase [Catalytic activity/Vol] 269 U/L 7-64 [facility] Laboratory - Hematology and Cell countsOrdered By: Sharan Ayoub on 03-11-2022 Nucleated RBC/100 WBC (Bld) [Ratio] 0.1 % 0-0.5 [facility] Lymphocytes Auto (Bld) [#/Vo l]Ordered By: Sharan Ayoub on 03-11-2022 Lymphocytes (Bld) [#/Vol] 2.4 10*3/uL 1.00-4.8 [facility] Lymphocytes/100 WBC Auto (Bl d)Ordered By: Sharan Ayoub on 03-11-2022 Lymphocytes/100 WBC (Bld) 47.7 % . [facility] MCH Auto (RBC) [Entitic mass ]Ordered By: Sharan Ayoub on 03-11-2022 MCH (RBC) [Entitic mass] 31.4 pg 27.5-35.2 [facility] MCHC Auto (RBC) [Mass/Vol]Or dered By: Sharan Ayoub on 03-11-2022 MCHC (RBC) [Mass/Vol] 34.0 g/dL 32.5-35.6 [facility] MCV Auto (RBC) [Entitic vol] Ordered By: Sharan Ayoub on 03-11-2022 MCV (RBC) [Entitic vol] 92.2 fL 83.5-101 [facility] Monocytes Auto (Bld) [#/Vol] Ordered By: Sharan Ayoub on 03-11-2022 Monocytes (Bld) [#/Vol] 0.5 10*3/uL 0.0-0.8 [facility] Monocytes/100 WBC Auto (Bld) Ordered By: Sharan Ayoub on 03-11-2022 Monocytes/100 WBC (Bld) 10.3 % . [facility] Neutrophils Auto (Bld) [#/Vo l]Ordered By: Sharan Ayoub on 03-11-2022 Neutrophils (Bld) [#/Vol] 1.9 10*3/uL 1.8-7.7 [facility] Neutrophils/100 WBC Auto (Bl d)Ordered By: Sharan Ayoub on 03-11-2022 Neutrophils/100 WBC (Bld) 38.7 % . [facility] No Panel InformationOrdered By: Sharan Ayoub on 03-11-2022 Estimated GFR () > 60 mL/Min [facility] Comment on above: GFR estimated refere nce range: According to KDOQI guidelines, <60 ml/min/1.73m2 is sufficient to diagnose a patient with chronic kidney disease. Pharmacy Creatinine Clearance (Chem N/A [facility] Tacrolimus (Prograf) Level Sent to [facility] Platelet mean volume Auto (B ld) [Entitic vol]Ordered By: Sharan Ayoub on 03-11-2022 Platelet mean volume (Bld) [Entitic vol] 10.4 fL 6.6-10.1 [facility] Platelets Auto (Bld) [#/Vol] Ordered By: Sharan Ayoub on 03-11-2022 Platelets (Bld) [#/Vol] 232 10*3/uL 150-450 [facility] Protein [Mass/volume] in Ser um or PlasmaOrdered By: Sharan Ayoub on 03-11-2022 Protein [Mass/Vol] 6.5 g/dL 6.1-7.9 [facility] RBC Auto (Bld) [#/Vol]Ordere d By: Sharan Ayoub on 03-11-2022 RBC (Bld) [#/Vol] 4.49 10*6/uL 3.90-5.60 [facility] Serum or plasma alanine weaver otransferase measurement without P-5'-P (enzymatic activiOrdered By: Sharan Ayoub on 03-11-2022 ALT No additional P-5'-P [Catalytic activity/Vol] 54 U/L 10-60 [facility] Serum or plasma albumin/glob ulin mass ratioOrdered By: Sharan Ayoub on 03-11-2022 Albumin/Globulin [Mass ratio] 1.2 {ratio} [facility] Serum or plasma alkaline roe sphatase measurement (enzymatic activity/volume)Ordered By: Sharan Ayoub on 03-11-2022 ALP [Catalytic activity/Vol] 109 U/L 32-92 [facility] Serum or plasma aspartate am inotransferase measurement (enzymatic activity/volume)Ordered By: Sharan Ayoub on 03-11-2022 AST [Catalytic activity/Vol] 59 U/L 10-42 [facility] Serum or plasma calcium vini urement (mass/volume)Ordered By: Sharan Ayoub on 03-11-2022 Calcium [Mass/Vol] 9.5 mg/dL 8.2-10.2 [facility] Serum or plasma chloride jose surement (moles/volume)Ordered By: Sharan Ayoub on 03-11-2022 Chloride [Moles/Vol] 102 mmol/L 95-114 [facility] Serum or plasma glucose vini urement (mass/volume)Ordered By: Sharan Ayoub on 03-11-2022 Glucose [Mass/Vol] 219 mg/dL 70-100 [facility] Comment on above: ADA recommended refe rence range Random Glucose Reference Range is dependent on time and content of last meal. Glucose of more than 200 mg/dL in a nonstressed, ambulatory subject supports the diagnosis of Diabetes Mellitus. Serum or plasma non-glucuron idated bilirubin measurement (mass/volume)Ordered By: Sharan Ayoub on 03-11-2022 Bilirubin.indirect [Mass/Vol] 0.8 mg/dL [facility] Serum or plasma potassium me asurement (moles/volume)Ordered By: Sharan Ayoub on 03-11-2022 Potassium [Moles/Vol] 4.3 mmol/L 3.5-5.1 [facility] Serum or plasma sodium measu rement (moles/volume)Ordered By: Sharan Ayoub on 03-11-2022 Sodium [Moles/Vol] 140 mmol/L 136-146 [facility] Serum or plasma total biliru bin measurement (mass/volume)Ordered By: Sharan Ayoub on 03-11-2022 Bilirubin [Mass/Vol] 1.0 mg/dL 0.3-1.2 [facility] Serum or plasma total carbon dioxide measurement (moles/volume)Ordered By: Sharan Ayoub on 03-11-2022 CO2 [Moles/Vol] 27.7 mmol/L 22.0-30.0 [facility] Serum or plasma urea nitroge n measurement (mass/volume)Ordered By: Sharan Ayoub on 03-11-2022 Urea nitrogen [Mass/Vol] 11 mg/dL 9-23 [facility] Tacrolimuson 03-11-2022 Tacrolimus (Bld) [Mass/Vol] 11.7 ng/mL 2.0 - 15.0 [facility] [address] [facility] Work Phone: Comment on above: NOTE: Result was obt ained using a chemiluminescent microparticle immunoassay (CMIA) on the [employer] i system.Optimal therapeutic ranges for immuno-suppressant drugs depend upon an individualpatient's current clinical state, type oforgan transplant, time post-transplant,co-administration of other immunosuppressants,and other clinical factors. The results ofthis test should be correlated with additionalclinical and laboratory data before changesin treatment regimens are made. AMYLASEon 12-24-2021 Amylase [Catalytic activity/Vol] 60 U/L Normal 25-115 [facility] Comment on above: Performed By: #### L IPA, CHACHA, LIVER, BMP #### [facility] [address] [place] [address] Dr. Aleksandar Almeida CBC AUTO DIFFon 12-24-2021 BASO # 0.1 103/ul Normal 0.0-0.1 [facility] Comment on above: Performed By: #### C BC #### [facility] [address] [place] [address] Dr. Aleksandar Almeida Basophils/100 WBC (Bld) 0.7 % Normal 0.2-2.0 [facility] Comment on above: Performed By: #### C BC #### [facility] [address] [place] [address] Dr. Aleksandra Almeida EO # 0.0 103/ul Normal 0.0-0.7 [facility] Comment on above: Performed By: #### C BC #### [facility] [address] [place] [address] Dr. Aleksandar Almeida Eosinophils/100 WBC (Bld) 0.0 % Critically low 0.9-7.0 [facility] Comment on above: Performed By: #### C BC #### [facility] [address] [place] [address] Dr. Aleksandar Almeida Erythrocyte distribution width (RBC) [Ratio] 11.9 % Normal 11.0-15.0 [facility] Comment on above: Performed By: #### C BC #### [facility] [address] [place] [address] Dr. Aleksandar Almeida Hematocrit (Bld) [Volume fraction] 42.0 % Normal 42.0-54.0 [facility] Comment on above: Performed By: #### C BC #### [facility] [address] [place] [address] Dr. Aleksandar Almeida Hemoglobin (Bld) [Mass/Vol] 14.6 g/dL Normal 14.0-18.0 [facility] Comment on above: Performed By: #### C BC #### [facility] [address] [place] [address] Dr. Aleksandar Almeida IG # 0.02 10e3/ul Normal 0.00-0.03 [facility] Comment on above: Performed By: #### C BC #### [facility] [address] [place] [address] Dr. Aleksandar Almeida IG % 0.2 % Normal 0.0-0.5 [facility] Comment on above: Performed By: #### C BC #### [facility] [address] [place] [address] Dr. Aleksandar Almeida LYMPH # 1.5 103/ul Normal 1.2-3.8 [facility] Comment on above: Performed By: #### C BC #### [facility] [address] [place] [address] Dr. Aleksandar Almeida Lymphocytes/100 WBC (Bld) 18.0 % Critically low 20.5-60.0 [facility] Comment on above: Performed By: #### C BC #### [facility] [address] [place] [address] Dr. Aleksandar Almeida MANUAL DIFF REQ NO Normal [facility] Comment on above: Performed By: #### C BC #### [facility] [address] [place] [address] Dr. Aleksandar Almeida MCH (RBC) [Entitic mass] 30.9 pg Normal 25.9-34.0 [facility] Comment on above: Performed By: #### C BC #### [facility] [address] [place] [address] Dr. Aleksandar Almeida MCHC (RBC) [Mass/Vol] 34.8 g/dL Normal 29.9-35.2 [facility] Comment on above: Performed By: #### C BC #### [facility] [address] [place] [address] Dr. Aleksandar Almeida MCV (RBC) [Entitic vol] 89.0 fL Normal 80.0-94.0 [facility] Comment on above: Performed By: #### C BC #### [facility] [address] [place] [address] Dr. Aleksandar Almeida MONO # 0.4 103/ul Normal 0.3-0.8 [facility] Comment on above: Performed By: #### C BC #### [facility] [address] [place] [address] Dr. Aleksandar Almeida Monocytes/100 WBC (Bld) 5.3 % Normal 1.7-12.0 [facility] Comment on above: Performed By: #### C BC #### [facility] [address] [place] [address] Dr. Aleksandar Almeida NEUT # 6.1 103/ul Normal 1.4-6.5 [facility] Comment on above: Performed By: #### C BC #### [facility] [address] [place] [address] Dr. Aleksandar Almeida Neutrophils/100 WBC (Bld) 75.8 % Critically high 43.0-75.0 [facility] Comment on above: Performed By: #### C BC #### [facility] [address] [place] [address] Dr. Aleksandar Almeida Platelet mean volume (Bld) [Entitic vol] 10.9 fL Normal 9.5-13.5 [facility] Comment on above: Performed By: #### C BC #### [facility] [address] [place] [address] Dr. Aleksandar Almeida PLT 235 103/ul Normal 150-450 [facility] Comment on above: Performed By: #### C BC #### [facility] [address] [place] [address] Dr. Aleksandar Almeida RBC 4.72 106/ul Normal 4.70-6.10 [facility] Comment on above: Performed By: #### C BC #### [facility] [address] [place] [address] Dr. Aleksandar Almeida WBC 8.1 103/ul Normal 4.0-11.0 [facility] Comment on above: Performed By: #### C BC #### [facility] [address] [place] [address] ABD/PELV W CONon [...] BAO GOMES Date: 2021-12-24 13:18 Normal [facility] URINE PROFILEon 2 Bilirubin Ql (U) Negative Normal NEGATIVE [facility] Comment on above: Performed By: #### U MICRO, ERUR ####[facility] [address] [place] [address]DrBaldev Almeida Clarity (U) CLEAR Normal CLEAR [facility] Comment on above: Performed By: #### U MICRO, ERUR ####[facility] [address] [place] [address]DrBaldev Almeida Color (U) LT. YELLOW Normal YELLOW [facility] Comment on above: Performed By: #### U MICRO, ERUR ####[facility] [address] [place] [address]DrBaldev SYLVESTERAHD A micrscopic examina tion will be performed if indicated. Normal [facility] Comment on above: Performed By: #### U MICRO, ERUR ####[facility] [address] [place] [address]Dr. Aleksandar Almeida Glucose Ql (U) >1000 Abnormal NEGATIVE [facility] Comment on above: Performed By: #### U MICRO, ERUR ####[facility] [address] [place] [address]Dr. Aleksandar Almeida Hemoglobin Ql (U) SMALL Abnormal NEGATIVE [facility] Comment on above: Performed By: #### U MICRO, ERUR ####[facility] [address] [place] [address]Dr. Aleksandar Almeida Ketones Ql (U) Negative Normal NEGATIVE [facility] Comment on above: Performed By: #### U MICRO, ERUR ####[facility] [address] [place], [place] [address]Dr. Aleksandar Almeida LEUKOCYTES TRACE Abnormal NEGATIVE [facility] Comment on above: Performed By: #### U MICRO, ERUR ####[facility] [address] [place], [place] [address]Dr. Aleksandar Almeida Nitrite Ql (U) Negative Normal NEGATIVE [facility] Comment on above: Performed By: #### U MICRO, ERUR ####[facility] [address] [place], [place] [address]Dr. Aleksandar Almeida pH (U) 6.5 [pH] Normal 5-9 [facility] Comment on above: Performed By: #### U MICRO, ERUR ####[facility] [address] [place], [place] [address]Dr. Aleksandar Almeida SPEC GRAVITY <=1.005 Abnormal 1.005-<=1.02 5 [facility] Comment on above: Performed By: #### U MICRO, ERUR ####[facility] [address] [place], [place] [address]Dr. Aleksandar Almeida UA PROTEIN Negative Normal NEGATIVE/ TRACE [facility] Comment on above: Performed By: #### U MICRO, ERUR ####[facility] [address] [place], [place] [address]Dr. Aleksandar Almeida UR MICRO IND INDICATED Normal [facility] Comment on above: Performed By: #### U MICRO, ERUR ####[facility] [address] [place] [address]Dr. Aleksandar Almeida Urobilinogen Qn (U) 0.2 {Jacinta'U}/dL Normal 0.2 - 1. 0 [facility] Comment on above: Performed By: #### U MICRO, ERUR ####[facility] [address] [place] [address]Dr. Aleksandar Almeida LIPASEon 12-24-2021 Lipase [Catalytic activity/Vol] 64.0 U/L Normal 23.0-300.0 [facility] Comment on above: Performed By: #### L IPA, CHACHA, LIVER, BMP #### [facility] [address] [place] [address] [address] Aleksandar Almeida LIVER PROFILEon 12-24-2021 Albumin [Mass/Vol] 4.0 g/dL Normal 3.4-5.0 [facility] Comment on above: Performed By: #### L IPA, CHACHA, LIVER, BMP #### [facility] [address] [place] [address] [address] Aleksandar Almeida Albumin/Globulin [Mass ratio] 1.0 {ratio} Normal [facility] Comment on above: Performed By: #### L IPA, CHACHA, LIVER, BMP #### [facility] [address] [address] [address] Aleksandar Almeida ALP [Catalytic activity/Vol] 123 U/L Critically high 46-116 [facility] Comment on above: Performed By: #### L IPA, CHACHA, LIVER, BMP #### [facility] [address] [place] [address] [address] Aleksandar Almeida ALT [Catalytic activity/Vol] 43 U/L Normal 16-63 [facility] Comment on above: Performed By: #### L IPA, CHACHA, LIVER, BMP #### [facility] [address] [place] [address] [address] Aleksandar Almeida AST [Catalytic activity/Vol] 39 U/L Critically high 15-37 [facility] Comment on above: Performed By: #### L IPA, CHACHA, LIVER, BMP #### [facility] [address] [place] [address] Dr. Aleksandar Almeida BILI, CONJUGATED 0.2 mg/dL Normal 0.0-0.3 [facility] Comment on above: Performed By: #### L IPA, CHACHA, LIVER, BMP #### [facility] [address] [place] [address] Dr. Aleksandar Almeida Bilirubin [Mass/Vol] 0.9 mg/dL Normal 0.2-1.3 [facility] Comment on above: Performed By: #### L IPA, CHACHA, LIVER, BMP #### [facility] [address] [place] [address] Dr. Aleksandar Almeida Globulin (S) [Mass/Vol] 4.0 g/dL Normal [facility] Comment on above: Performed By: #### L IPA, CHACHA, LIVER, BMP #### [facility] [address] [place] [address] Dr. Aleksandar Almeida Protein [Mass/Vol] 8.0 g/dL Normal 6.1-8.2 [facility] Comment on above: Performed By: #### L IPA, CHACHA, LIVER, BMP #### [facility] [address] [place] [address] Dr. Aleksandar Almeida PROF CHEM 8 (BAS METB)on Anion gap [Moles/Vol] 14.1 mmol/L Normal [facility] Comment on above: Performed By: #### L IPA, CHACHA, LIVER, BMP #### [facility] [address] [place] [address] Dr. Aleksandar Almeida Calcium [Mass/Vol] 9.5 mg/dL Normal 8.5-10.1 [facility] Comment on above: Performed By: #### L IPA, CHACHA, LIVER, BMP #### [facility] [address] [place] [address] Dr. Aleksandar Almeida Chloride [Moles/Vol] 101 mmol/L Normal 98-107 [facility] Comment on above: Performed By: #### L IPA, CHACHA, LIVER, BMP #### [facility] [address] [address] [address] Aleksandar Almeida CO2 [Moles/Vol] 27.0 mmol/L Normal 22.0-30.0 [facility] Comment on above: Performed By: #### L IPA, CHACHA, LIVER, BMP #### [facility] [address] [place] [address] [address] Aleksandar Almeida Creatinine [Mass/Vol] 1.23 mg/dL Normal 0.66-1.25 [facility] Comment on above: Performed By: #### L IPA, CHACHA, LIVER, BMP #### [facility] [address] [place] [address] [address] Aleksandar Almeida EGFR-AF KAZAKH >60 Normal >=60 [facility] Comment on above: Performed By: #### L IPA, CHACHA, LIVER, BMP #### [facility] [address] [place] [address] [address] Aleksandar Almeida EGFR-NON AF KAZAKH >60 Normal >=60 [facility] Comment on above: Performed By: #### L IPA, CHACHA, LIVER, BMP #### [facility] [address] [address] [address] Aleksandar Almeida Glucose [Mass/Vol] 249 mg/dL Critically high 74-106 [facility] Comment on above: Performed By: #### L IPA, CHACHA, LIVER, BMP #### [facility] [address] [address] [address] Aleksandar Almeida Potassium [Moles/Vol] 4.1 mmol/L Normal 3.4-5.0 [facility] Comment on above: Performed By: #### L IPA, CHACHA, LIVER, BMP #### [facility] [address] [address] [address] Aleksandar Almeida Sodium [Moles/Vol] 138 mmol/L Normal 137-145 [facility] Comment on above: Performed By: #### L IPA, CHACHA, LIVER, BMP #### [facility] [address] [address] [address] Aleksandar Almeida Urea nitrogen [Mass/Vol] 19.0 mg/dL Critically high 7.0-18.0 [facility] Comment on above: Performed By: #### L IPA, CHACHA, LIVER, BMP #### [facility] [address] [place] [address] [address] Aleksandar Almeida Urea nitrogen/Creatinine [Mass ratio] 15.4 mg/mg Normal [facility] Comment on above: Performed By: #### L IPA, CHACHA, LIVER, BMP #### [facility] [address] [place] [address] [address] Aleksandar Almeida PROTIMEon 12-24-2021 INR Coag (PPP) [Relative time] 1.13 {INR} Normal [facility] Comment on above: Performed By: #### P T, PTT ####[facility] [address] [place] [address]Dr. Aleksandar Almeida INR GUIDELINES SEE BELOW Normal [facility] Comment on above: Result Comment: NOEL RED INR: 2.0 - 3.0 CONDITIONS NOT LISTED BELOW 2.5 - 3.5 FOR PROSTHETIC HEART VALVE REPLACEMENT 2.5 - 3.5 RECURRENT THROMBOSIS Performed By: #### P T, PTT ####[facility] [address] [place] [address]DrBaldev Almeida PT Coag (PPP) [Time] 12.1 s Critically high 9.0-11.6 [facility] Comment on above: Performed By: #### P T, PTT ####[facility] [address] [place] [address]Dr. Aleksandar Almeida PTTon 12-24-2021 aPTT Coag (Bld) [Time] 25.1 s Normal 22.3-36.2 [facility] Comment on above: Performed By: #### P T, PTT ####[facility] [address] [place] [address]Dr. Aleksandar Almeida URINE MICROSCOPIC ONLYon BACTERIA TRACE Abnormal NONE SEEN [facility] Comment on above: Performed By: #### U MICRO, ERUR ####[facility] [address] [place] [address]DrBaldev Almeida Bacteria identified Cx Nom (U) NOT INDICATED Normal [facility] Comment on above: Performed By: #### U MICRO, ERUR ####[facility] [address] [place] [address]Dr. Aleksandar Almeida CAST NONE SEEN Normal NONE SEEN [facility] Comment on above: Performed By: #### U MICRO, ERUR ####[facility] [address] [place] [address]Dr. Aleksandar Almeida Crystals LM Nom (Urine sed) NONE SEEN Normal NONE SEEN [facility] Comment on above: Performed By: #### U MICRO, ERUR ####[facility] [address] [place] [address]Dr. Aleksandar Almeida Epithelial cells LM Ql (Urine sed) NONE SEEN Normal NONE SEEN /RARE [facility] Comment on above: Performed By: #### U MICRO, ERUR ####[facility] [address] [place], [place] [address]Dr. Aleksandar Almeida MUCOUS TRACE Abnormal NONE SEEN [facility] Comment on above: Performed By: #### U MICRO, ERUR ####[facility] [address] [place], [place] [address]Dr. Aleksandar Almeida RBC 5-10 Abnormal 0-2 [facility] Comment on above: Performed By: #### U MICRO, ERUR ####[facility] [address] [place], [place] [address]Dr. Aleksandar Almeida WBC 2-5 Abnormal NONE SEEN [facility] Comment on above: Performed By: #### U MICRO, ERUR ####[facility] [address] [place], [place] [address]Dr. Aleksandar Almeida Radiologyon 12-10-2021 US Liver Normal [facility] [employer] [address] [employer] Work Phone: Ultrasound Duplex Abd/Pel/Sc rotal Cmpton 12-10-2021 Ultrasound Duplex Abd/Pel/Scrotal Cmpt Normal [facility] [employer] [address] Work Phone: Tacrolimuson 11-17-2021 Tacrolimus (Bld) [Mass/Vol] 8.2 ng/mL 2.0 - 15.0 [facility] [employer] Work Phone: Comment on above: NOTE: Result was obt ained using a chemiluminescent microparticle immunoassay (CMIA) on the [employer] i system.Optimal therapeutic ranges for immuno-suppressant drugs depend upon an individualpatient's current clinical state, type oforgan transplant, time post-transplant,co-administration of other immunosuppressants,and other clinical factors. The results ofthis test should be correlated with additionalclinical and laboratory data before changesin treatment regimens are made. Tacrolimuson 08-07-2021 Tacrolimus (Bld) [Mass/Vol] 12.6 ng/mL 2.0 - 15.0 [facility] [place] [employer] Work Phone: Comment on above: NOTE: Result was obt ained using a chemiluminescent microparticle immunoassay (CMIA) on the [employer] i system.Optimal therapeutic ranges for immuno-suppressant drugs depend upon an individualpatient's current clinical state, type oforgan transplant, time post-transplant,co-administration of other immunosuppressants,and other clinical factors. The results ofthis test should be correlated with additionalclinical and laboratory data before changesin treatment regimens are made. Tacrolimuson 06-21-2021 Tacrolimus (Bld) [Mass/Vol] 8.4 ng/mL 2.0 - 15.0 [facility] [place] [employer] Work Phone: Comment on above: NOTE: Result was obt ained using a chemiluminescent microparticle immunoassay (CMIA) on the [employer] system.Optimal therapeutic ranges for immuno-suppressant drugs depend upon an individualpatient's current clinical state, type oforgan transplant, time post-transplant,co-administration of other immunosuppressants,and other clinical factors. The results ofthis test should be correlated with additionalclinical and laboratory data before changesin treatment regimens are made. Tacrolimuson 04-27-2021 Tacrolimus (Bld) [Mass/Vol] 11.2 ng/mL 2.0 - 15.0 [facility] [address] [employer] Work Phone: Comment on above: NOTE: Result was obt ained using a chemiluminescent microparticle immunoassay (CMIA) on the [employer] i system.Optimal therapeutic ranges for immuno-suppressant drugs depend upon an individualpatient's current clinical state, type oforgan transplant, time post-transplant,co-administration of other immunosuppressants,and other clinical factors. The results ofthis test should be correlated with additionalclinical and laboratory data before changesin treatment regimens are made. Provider Letteron 01-19-2021 Provider Letter (Inserted Image. Addis ble to display) January 19, 2021 LULY GIRON [address] [place] [address] LULY GIRON 1995 Dear Luly , You [...] appreciate your understanding. Sincerely, [facility] [address] [facility], [place] [address] [facility] Lab Reportson 11-12-2020 Lab Reports [id number]#[id number]:127 [facility] RAD - MISCon 11-12-2020 [facility] ER [id number]#1.00CD:127 Normal [facility] Operative Reporton Operative Report [id number]#1.00CD:127 [facility] Lab Reportson 11-10-2020 Lab Reports [id number]#[id number]:127 [facility] RAD - MISCon 11-10-2020 [facility] ER [id number]#[id number]:127 Normal [facility] Activated partial thrombopla stin time (aPTT) in platelet poor plasma by coagulation aon 11-04-2020 aPTT Coag (PPP) [Time] 31.0 s 25.1-36.5 [facility] Automated basophil %on 11-04 Basophils/100 WBC (Bld) 1.2 % [facility] Automated basophil counton 0 11-04-2020 Basophils (Bld) [#/Vol] 0.1 10*3/uL 0.0-0.2 [facility] Automated blood lymphocyte c ount (number/volume)on 11-04-2020 Lymphocytes (Bld) [#/Vol] 3.5 10*3/uL 1.00-4.8 [facility] Automated blood lymphocyte c ount as percentage of total leukocyteson 11-04-2020 Lymphocytes/100 WBC (Bld) 44.2 % [facility] Automated blood monocyte cou nton 11-04-2020 Monocytes (Bld) [#/Vol] 0.6 10*3/uL 0.0-0.8 [facility] Automated blood platelet cou nt (count/volume)on 11-04-2020 Platelets (Bld) [#/Vol] 240 10*3/uL 150-450 [facility] Automated blood platelet jose n volume measurementon 11-04-2020 Platelet mean volume (Bld) [Entitic vol] 9.7 fL 6.6-10.1 [facility] Automated eosinophil %on Eosinophils/100 WBC (Bld) 2.0 % [facility] Automated eosinophil counton 11-04-2020 Eosinophils (Bld) [#/Vol] 0.2 10*3/uL 0.0-0.45 [facility] Automated erythrocyte distri bution width ratioon 11-04-2020 Erythrocyte distribution width (RBC) [Ratio] 13.2 % 12.0-14.8 [facility] Automated erythrocyte mean c orpuscular hemoglobin (mass per erythrocyte)on 11-04-2020 MCH (RBC) [Entitic mass] 30.7 pg 27.5-35.2 [facility] Automated erythrocyte mean c orpuscular hemoglobin concentration measurement (mass/volon 11-04-2020 MCHC (RBC) [Mass/Vol] 34.3 g/dL 32.5-35.6 [facility] Automated erythrocyte mean c orpuscular volumeon 11-04-2020 MCV (RBC) [Entitic vol] 89.5 fL 83.5-101 [facility] Automated monocyte %on 11-04 Monocytes/100 WBC (Bld) 7.8 % [facility] Automated neutrophil %on Neutrophils/100 WBC (Bld) 44.8 % [facility] Blood erythrocytes automated count (number/volume)on 11-04-2020 RBC (Bld) [#/Vol] 4.03 10*6/uL 3.90-5.60 [facility] Blood hemoglobin measurement (mass/volume)on 11-04-2020 Hemoglobin (Bld) [Mass/Vol] 12.4 g/dL 13.0-17.0 [facility] Blood leukocytes automated c ount (number/volume)on 11-04-2020 WBC (Bld) [#/Vol] 7.9 10*3/uL 4.5-11.0 [facility] Blood neutrophil count by au tomated method (number/volume)on 11-04-2020 Neutrophils (Bld) [#/Vol] 3.5 10*3/uL 1.8-7.7 [facility] Estimated glomerular filtrat ion rate (GFR) non- Americanon 11-04-2020 GFR/1.73 sq M predicted among non-blacks MDRD (S/P/Bld) [Vol rate/Area] mL/min/{1.73_m2} [facility] Hematocrit [Volume Fraction] of Blood by Automated counton 11-04-2020 Hematocrit (Bld) [Volume fraction] 36.1 % 38.8-50.0 [facility] Hematologyon 11-04-2020 PT Coag (PPP) [Time] 12.9 s 9.0-12.9 [facility] Otheron 11-04-2020 GFR/1.73 sq M.predicted MDRD (S/P/Bld) [Vol rate/Area] mL/min/{1.73_m2} [facility] Comment on above: GFR estimated refere nce range: According to KDOQI guidelines, <60 ml/min/1.73m2 is sufficient to diagnose a patient with chronic kidney disease. Nucleated RBC/100 WBC (Bld) [Ratio] 0.4 % 0-0.5 [facility] Creatinine Clearance (Chem N/A [facility] Platelet poor plasma interna tional normalized ratio (INR) by coagulation assay (relaton 11-04-2020 INR Coag (PPP) [Relative time] 1.2 {INR} [facility] Comment on above: INR Therapeutic Rang [...] 3 - 4.5 Pre-Certification Formon Pre-Certification Form [id number]#[id number]:127 Normal [facility] Serum or plasma calcium vini urement (mass/volume)on 11-04-2020 Calcium [Mass/Vol] 9.2 mg/dL 8.2-10.2 [facility] Serum or plasma chloride jose surement (moles/volume)on 11-04-2020 Chloride [Moles/Vol] 100 mmol/L 95-114 [facility] Serum or plasma creatinine m easurement with calculation of estimated glomerular filtron 11-04-2020 Creatinine [Mass/Vol] 1.31 mg/dL 0.64-1.27 [facility] Serum or plasma glucose vini urement (mass/volume)on 11-04-2020 Glucose [Mass/Vol] 178 mg/dL 70-100 [facility] Comment on above: ADA recommended refe rence rangeRandom Glucose Reference Range is dependent on time and content of last meal. Glucose of more than 200 mg/dL in a nonstressed, ambulatory subject supports the diagnosis of Diabetes Mellitus. Serum or plasma potassium me asurement (moles/volume)on 11-04-2020 Potassium [Moles/Vol] 3.9 mmol/L 3.5-5.1 [facility] Serum or plasma sodium measu rement (moles/volume)on 11-04-2020 Sodium [Moles/Vol] 137 mmol/L 136-146 [facility] Serum or plasma total carbon dioxide measurement (moles/volume)on 11-04-2020 CO2 [Moles/Vol] 27.9 mmol/L 22.0-30.0 [facility] Serum or plasma urea nitroge n measurement (mass/volume)on 11-04-2020 Urea nitrogen [Mass/Vol] 16 mg/dL 06-24 [facility] Ambulatory Clinical Summaryo n 10-29-2020 Ambulatory Clinical Summary {[id number]}CD: [id number] Normal [facility] Patient Educationon 10-29-19 Patient Education Urology Kidney [...] these instructions at home: Medicines ? Take lygl-wjd-njkormt and prescription medicines only as told by [...] 03/06/2009 Document Revised: 02/04/2020 Document Reviewed: 02/04/2020 [employer] Patient Education ? 2019 Yadio. [facility] Urology Office/Clinic Noteon [...] bring any stone fragments for chemical analysis. [facility] Staff PO ESWL 09/14/2020 KUB done 10/28/20 [...] When Contact Information Peyman Lira MD, Jaiden [address] Additional Instructions: Patient Education Kidney Stones, Qrit-ew-Cbax I, Sharon Banda , personally scribed for [...] Daily magnesium (more content not included)... [facility] Comment on above: Result Comment: Elec tronically Signed By: Peyman Lira MD, Jaiden Cherry\.br\Date and Time Signed: 10/29/20 09:31 EST\.br\Electronically Co-Signed By: Sharon Banda MA\.br\Date and Time Co-Signed: 10/29/20 09:16 EST Patient Letter FTMCon 2020 Patient Letter [facility] (Inserted Image. Addis ble to display) October 16, 2020 LULY GIRON [address] [place] [place] [address] LULY GIRON 1995 Dear Luly Giron, I [...] you. Sincerely, Dr. Jaiden [facility] [address], [facility] [place] [address] [facility] Albumin [Mass/volume] in Ser um or Plasmaon 10-13-2020 Albumin [Mass/Vol] 4.1 g/dL 3.2-5.5 [facility] Automated basophil %on 10-13 Basophils/100 WBC (Bld) 1.0 % [facility] Automated basophil counton 0 10-13-2020 Basophils (Bld) [#/Vol] 0.1 10*3/uL 0.0-0.2 [facility] Automated blood lymphocyte c ount (number/volume)on 10-13-2020 Lymphocytes (Bld) [#/Vol] 3.8 10*3/uL 1.00-4.8 [facility] Automated blood lymphocyte c ount as percentage of total leukocyteson 10-13-2020 Lymphocytes/100 WBC (Bld) 47.7 % [facility] Automated blood monocyte cou nton 10-13-2020 Monocytes (Bld) [#/Vol] 0.6 10*3/uL 0.0-0.8 [facility] Automated blood platelet cou nt (count/volume)on 10-13-2020 Platelets (Bld) [#/Vol] 212 10*3/uL 150-450 [facility] Automated blood platelet jose n volume measurementon 10-13-2020 Platelet mean volume (Bld) [Entitic vol] 9.4 fL 6.6-10.1 [facility] Automated eosinophil %on Eosinophils/100 WBC (Bld) 3.7 % [facility] Automated eosinophil counton 10-13-2020 Eosinophils (Bld) [#/Vol] 0.3 10*3/uL 0.0-0.45 [facility] Automated erythrocyte distri bution width ratioon 10-13-2020 Erythrocyte distribution width (RBC) [Ratio] 13.1 % 12.0-14.8 [facility] Automated erythrocyte mean c orpuscular hemoglobin (mass per erythrocyte)on 10-13-2020 MCH (RBC) [Entitic mass] 31.2 pg 27.5-35.2 [facility] Automated erythrocyte mean c orpuscular hemoglobin concentration measurement (mass/volon 10-13-2020 MCHC (RBC) [Mass/Vol] 34.7 g/dL 32.5-35.6 [facility] Automated erythrocyte mean c orpuscular volumeon 10-13-2020 MCV (RBC) [Entitic vol] 89.9 fL 83.5-101 [facility] Automated monocyte %on 10-13 Monocytes/100 WBC (Bld) 7.9 % [facility] Automated neutrophil %on Neutrophils/100 WBC (Bld) 39.7 % [facility] Blood erythrocytes automated count (number/volume)on 10-13-2020 RBC (Bld) [#/Vol] 4.77 10*6/uL 3.90-5.60 [facility] Blood hemoglobin measurement (mass/volume)on 10-13-2020 Hemoglobin (Bld) [Mass/Vol] 14.9 g/dL 13.0-17.0 [facility] Blood leukocytes automated c ount (number/volume)on 10-13-2020 WBC (Bld) [#/Vol] 8.1 10*3/uL 4.5-11.0 [facility] Blood neutrophil count by au tomated method (number/volume)on 10-13-2020 Neutrophils (Bld) [#/Vol] 3.2 10*3/uL 1.8-7.7 [facility] Cholesterol [Mass/volume] in Serum or Plasmaon 10-13-2020 Cholesterol [Mass/Vol] 240 mg/dL 140-200 [facility] Comment on above: Chol less than 200 m g/dl low riskChol 201-239 mg/dl borderline riskChol 240 mg/dl and greater high risk Cholesterol in LDL [Mass/vol ume] in Serum or Plasma by calculationon 10-13-2020 Cholesterol in LDL [Mass/Vol] 145 mg/dL 0-100 [facility] Comment on above: LDL ATP III CLASSIFI CATIONLDL less than 100 mg/dL OptimalLDL 100-129 mg/dL Near or above optimalLDL 130-159 mg/dL Borderline highLDL 160-189 mg/dL HighLDL greater than 189 mg/dL Very high Cholesterol in VLDL [Mass/vo lume] in Serum or Plasma by calculationon 10-13-2020 Cholesterol in VLDL [Mass/Vol] 16 mg/dL [facility] Creatinine [Mass/volume] in Urineon 10-13-2020 Creatinine (U) [Mass/Vol] 241.7 mg/dL [facility] Comment on above: No reference range e stablished Direct bilirubin measurement on 10-13-2020 Bilirubin.direct [Mass/Vol] 0.2 mg/dL 0.0-0.4 [facility] Estimated glomerular filtrat ion rate (GFR) non- Americanon 10-13-2020 GFR/1.73 sq M predicted among non-blacks MDRD (S/P/Bld) [Vol rate/Area] mL/min/{1.73_m2} [facility] Hematocrit [Volume Fraction] of Blood by Automated counton 10-13-2020 Hematocrit (Bld) [Volume fraction] 42.9 % 38.8-50.0 [facility] Otheron 10-13-2020 25-Hydroxy Vitamin D Total > 120.0 ng/mL 30-100 [facility] Comment on above: VITAMIN D STATUS 25( [place])VITAMIN D RANGE (ng/mL) Deficient <20 Insufficient 20 to <30Sufficient 30 to 100Reference: Misa MF,Kamar NC, Radha VOGEL, et al. Evaluation,treatment, and prevention of vitamin D deficiency; an Endocrine Society clinical practice guideline. JCEM. 2010; 96(7):1911-30. Amylase [Catalytic activity/Vol] 146 U/L 7-64 [facility] Nucleated RBC/100 WBC (Bld) [Ratio] 0.2 % 0-0.5 [facility] GFR/1.73 sq M.predicted MDRD (S/P/Bld) [Vol rate/Area] mL/min/{1.73_m2} [facility] Comment on above: GFR estimated refere nce range: According to KDOQI guidelines, <60 ml/min/1.73m2 is sufficient to diagnose a patient with chronic kidney disease. Pharmacy Creatinine Clearance (Chem N/A [facility] Protein [Mass/volume] in Ser um or Plasmaon 10-13-2020 Protein [Mass/Vol] 7.1 g/dL 6.1-7.9 [facility] Serum globulin measurement b y calculation (mass/volume)on 10-13-2020 Globulin (S) [Mass/Vol] 3.0 g/dL [facility] Serum or plasma alanine weaver otransferase measurement without P-5'-P (enzymatic activion 10-13-2020 ALT No additional P-5'-P [Catalytic activity/Vol] 28 U/L 10-60 [facility] Serum or plasma albumin/glob ulin mass ratioon 10-13-2020 Albumin/Globulin [Mass ratio] 1.4 {ratio} [facility] Serum or plasma alkaline roe sphatase measurement (enzymatic activity/volume)on 10-13-2020 ALP [Catalytic activity/Vol] 87 U/L 32-92 [facility] Serum or plasma aspartate am inotransferase measurement (enzymatic activity/volume)on 10-13-2020 AST [Catalytic activity/Vol] 23 U/L 10-42 [facility] Serum or plasma calcium vini urement (mass/volume)on 10-13-2020 Calcium [Mass/Vol] 9.9 mg/dL 8.2-10.2 [facility] Serum or plasma chloride jose surement (moles/volume)on 10-13-2020 Chloride [Moles/Vol] 98 mmol/L 95-114 [facility] Serum or plasma creatinine m easurement with calculation of estimated glomerular filtron 10-13-2020 Creatinine [Mass/Vol] 1.12 mg/dL 0.64-1.27 [facility] Serum or plasma glucose vini urement (mass/volume)on 10-13-2020 Glucose [Mass/Vol] 233 mg/dL 70-100 [facility] Comment on above: ADA recommended refe rence rangeRandom Glucose Reference Range is dependent on time and content of last meal. Glucose of more than 200 mg/dL in a nonstressed, ambulatory subject supports the diagnosis of Diabetes Mellitus. Serum or plasma high density lipoprotein (HDL) cholesterol measurementon 10-13-2020 Cholesterol in HDL [Mass/Vol] 79 mg/dL 29-71 [facility] Comment on above: HDL CHOL ATP-III CLA SSIFICATION Cardiovascular RiskHDL > or equal to 60 mg/dL LOWHDL < 40 mg/dL HIGH Serum or plasma potassium me asurement (moles/volume)on 10-13-2020 Potassium [Moles/Vol] 3.9 mmol/L 3.5-5.1 [facility] Serum or plasma sodium measu rement (moles/volume)on 10-13-2020 Sodium [Moles/Vol] 140 mmol/L 136-146 [facility] Serum or plasma thyroid stim ulating hormone (TSH) measurement by high sensitivity meton 10-13-2020 TSH Qn 2.38 u[iU]/mL 0.45-5.33 [facility] Serum or plasma total biliru bin measurement (mass/volume)on 10-13-2020 Bilirubin [Mass/Vol] 1.2 mg/dL 0.3-1.2 [facility] Serum or plasma total carbon dioxide measurement (moles/volume)on 10-13-2020 CO2 [Moles/Vol] 28.9 mmol/L 22.0-30.0 [facility] Serum or plasma total choles terol/high density lipoprotein (HDL) cholesterol mass carmen 10-13-2020 Cholesterol.total/Cho lesterol in HDL [Mass ratio] 3.0 {ratio} [facility] Serum or plasma urea nitroge n measurement (mass/volume)on 10-13-2020 Urea nitrogen [Mass/Vol] 14 mg/dL 9- [facility] Tacrolimus [Mass/volume] in Bloodon 10-13-2020 Tacrolimus (Bld) [Mass/Vol] Sent to ref lab [facility] Triglyceride [Mass/volume] i n Serum or Plasmaon 10-13-2020 Triglyceride [Mass/Vol] 82 mg/dL 35-149 [facility] Comment on above: TRIG ATP III [...] 20 mg/L (U) [Mass/Vol] 7.3 mg/dL 0.0-1.8 [facility] Urine microalbumin/creatinin e mass ratioon 10-13-2020 Albumin/Creatinine DL <= 20 mg/L (U) [Mass ratio] 30.0 mg/g 0.0-30.0 [facility] Comment on above: 30-300 mg/g indicate s an increased risk for diabetic nephropathy. Greater than 300 mg/g is consistent with clinical nephropathy. (Am. J. Kidney Disease 1994, 25:107) Lab Reportson 10-06-2020 Lab Reports [id number]#[id number]:127 Normal [facility] RAD - CT Reporton 10-06-2020 RAD - CT Report [id number]#1.00CD:127 Normal [facility] RAD - MISCon 10-06-2020 RAD - MISC [id number]#1.00CD:127 Normal [facility] Operative Reporton 0 Operative Report [id number]#1.00CD:127 Normal [facility] Patient Correspondenceon Patient Correspondence [id number]#1.00CD:127 Normal [facility] Ambulatory Clinical Summaryo n 09-10-2020 Ambulatory Clinical Summary {[id number]}CD: [id number] [facility] Patient Educationon 09-10-20 20 Patient Education Family [...] Document Reviewed: 07/16/2010 ExitCare? Patient Information ?2013 [employer]. [facility] Urology Office/Clinic Noteon 09-10-2020 Urology Office/Clinic Note [...] shows mild left hydronephrosis secondary to a 1u2h3zl stone within the proximal ureter. Ordered: Urology [...] Morley Jr., MD [address] [facility] [place] [address]- Additional Instructions: Patient Education Kidney Stones, Utmu-zc-Korb I, Sharon Banda (more content not included)... [facility] Comment on above: Result Comment: Elec tronically Signed By: Peyman Lira MD, Jaiden Cherry\.br\Date and Time Signed: 09/10/20 08:48 EST\.br\Electronically Co-Signed By: Sharon Banda MA\.br\Date and Time Co-Signed: 09/10/20 08:44 EST Patient Letter FTon 2019 Patient Letter [facility] (Inserted Image. Addis ble to display) July 29, 2020 LULY GIRON [address] [place] [address] LULY GIRON 1995 Dear Luly Giron, I [...] recommended. Sincerely Dr. Jaiden [facility] [address] [place] [place] [address] [facility] Lab Reportson 07-07-2020 Lab Reports [id number]#1.00CD:127 [facility] RAD - MISCon 07-07-2020 RAD - MISC [id number]#1.00CD:127 [facility] RAD - MISC [id number]#1.00CD:127 Normal [facility] Formson 07-01-2020 Forms [id number]#1.00CD:127 Normal [facility] Ambulatory Clinical Summaryo n 06-30-2020 Ambulatory Clinical Summary {[id number]}CD: [id number] [facility] Patient Educationon 06-30-20 20 Patient Education Family [...] Document Reviewed: 07/16/2010 ExitCare? Patient Information ?2013 [employer]. Normal [facility] Urology Office/Clinic Noteon 06-30-2020 Urology Office/Clinic Note Chief Complaint New pt for kidney stones This patient is a 25-year-old gentleman with history of bilateral renal calculi. He is referred for evaluation and management of bilateral renal calculi. The patient states he passed a stone on the right side recently. Also history is significant for liver transplant in 2016. [facility] Staff New pt here for kidney stones today. Current KUB done 06/28/2020 shows bilateral nephrolithiasis. Pt states that about a month ago he was having pain and went to the [facility] ED. He has since passed a couple [...] of Present Illness Reviewed UA, KUB, and [facility] [facility] [facility] paper works. There have been no associated [...] 1. Kidney stones (N20.0: Calculus of kidney) [facility] [facility] is here for kidney stones. Most current [...] Contact Information Peyman Lira MD, Jaiden Cherry [address] [place] [address]- Additional Instructions: Patient Education Kidney Stones, Uymm-wz-Bxam Sharon Banegas , personally scribed for Dr. [...] (2016), Jenny (more content not included)... [facility] Comment on above: Result Comment: Elec tronically Signed By: Peyman Lira MD, Jaiden Cherry\.br\Date and Time Signed: 06/30/20 10:15 EDT\.br\Electronically Co-Signed By: Sharon Banda MA\.br\Date and Time Co-Signed: 06/30/20 09:48 EDT Vital Signs Date Time Vital Sign Value Performing Clinician Facility 05-23-2024 14:52-0400 Body height 175.26 cm MD Coby Sosa Work Phone: [facility] 05-23-2024 14:52-0400 Body mass index (BMI) [Ratio] 18.3 kg/m2 MD Coby Sosa Work Phone: [facility] 05-23-2024 14:52-0400 Body weight 56.24 kg MD Coby Sosa Work Phone: [facility] 05-23-2024 14:52-0400 Diastolic blood pressure 98 mm[Hg] MD Coby Sosa Work Phone: [facility] 05-23-2024 14:52-0400 Heart rate 84 /min MD Coby Sosa Work Phone: [facility] 05-23-2024 14:52-0400 Systolic blood pressure 130 mm[Hg] MD Coby Sosa Work Phone: [facility] 04-09-2024 15:32-0400 Body height 175.26 cm MD Coby Sosa Work Phone: [facility] 04-09-2024 15:32-0400 Body mass index (BMI) [Ratio] 18.8 kg/m2 MD Coby Sosa Work Phone: [facility] 04-09-2024 15:32-0400 Body weight 58.05 kg MD Coby Sosa Work Phone: [facility] 04-09-2024 15:32-0400 Diastolic blood pressure 74 mm[Hg] MD Coby Sosa Work Phone: [facility] 04-09-2024 15:32-0400 Heart rate 94 /min MD Coby Sosa Work Phone: [facility] 04-09-2024 15:32-0400 Systolic blood pressure 120 mm[Hg] MD Coby Sosa Work Phone: [facility] 02-01-2024 09:35-0400 Body mass index (BMI) [Ratio] 18.67 kg/m2 Sharan Ayoub MD Work Phone: [facility] 02-01-2024 09:35-0400 Body temperature 97.59 [degF] Sharan Ayoub MD Work Phone: [facility] 02-01-2024 09:35-0400 Body weight 59.01 kg Sharan Ayoub MD Work Phone: [facility] 02-01-2024 09:35-0400 Diastolic blood pressure 96 mm[Hg] Sharan Ayoub MD Work Phone: [facility] 02-01-2024 09:35-0400 Heart rate 86 /min Sharan Ayoub MD Work Phone: [facility] 02-01-2024 09:35-0400 SaO2% (BldA) [Mass fraction] 100 % Sharan Ayoub MD Work Phone: [facility] 02-01-2024 09:35-0400 Systolic blood pressure 148 mm[Hg] Sharan Ayoub MD Work Phone: [facility] 01-24-2024 14:08-0400 Body temperature 98.4 [degF] Yung Montesinos MD Work Phone: [facility] 01-24-2024 14:08-0400 Diastolic blood pressure 82 mm[Hg] Yung Post MD Work Phone: [facility] 01-24-2024 14:08-0400 Heart rate 89 /min Yung Post MD Work Phone: [facility] 01-24-2024 14:08-0400 Respiratory rate 18 /min Yung Post MD Work Phone: [facility] 01-24-2024 14:08-0400 SaO2% (BldA) [Mass fraction] 96 % Yung Post MD Work Phone: [facility] 01-24-2024 14:08-0400 Systolic blood pressure 136 mm[Hg] Yung Post MD Work Phone: [facility] 01-19-2024 13:07-0400 Body mass index (BMI) [Ratio] 17.55 kg/m2 Yung Post MD Work Phone: [facility] 01-19-2024 13:07-0400 Body weight 55.48 kg Yung Post MD Work Phone: [facility] 01-19-2024 13:06-0400 Body height 177.8 cm Yung Post MD Work Phone: [facility] 01-17-2024 12:45-0400 Diastolic blood pressure 74 mm[Hg] [address] 01-17-2024 12:45-0400 Heart rate 55 /min [address] 01-17-2024 12:45-0400 Respiratory rate 18 /min [address] 01-17-2024 12:45-0400 SaO2% (BldA) [Mass fraction] 98 % [address] 01-17-2024 12:45-0400 Systolic blood pressure 119 mm[Hg] [address] 01-17-2024 08:13-0400 Body temperature 98.1 [degF] [address] 12-19-2023 12:50-0400 Diastolic blood pressure 81 mm[Hg] [address] 12-19-2023 12:50-0400 Heart rate 87 /min [address] 12-19-2023 12:50-0400 Respiratory rate 18 /min [address] 12-19-2023 12:50-0400 SaO2% (BldA) [Mass fraction] 99 % [address] 12-19-2023 12:50-0400 Systolic blood pressure 121 mm[Hg] [address] 12-19-2023 08:20-0400 Body temperature 99.1 [degF] [address] 10-30-2023 10:15-0500 Body height 175.26 cm Coby Sosa Other [facility] 10-30-2023 10:15-0500 Body mass index (BMI) [Ratio] 18.78 kg/m2 Coby Sosa Other [facility] [employer] Other 10-30-2023 10:15-0500 Body temperature 98.7 [degF] Coby Sosa Other [facility] [employer] Other 10-30-2023 10:15-0500 Body weight 57.7 kg Coby Sosa Other [facility] [employer] Other 10-30-2023 10:15-0500 Body weight 57.69 kg MD Coby Sosa Work Phone: [facility] 10-30-2023 10:15-0500 Diastolic blood pressure 84 mm[Hg] Coby Sosa Other [facility] 10-30-2023 10:15-0500 Systolic blood pressure 124 mm[Hg] Coby Sosa Other [facility] 10-09-2023 15:45-0500 Body height 175.26 cm Coby Sosa Other [facility] 10-09-2023 15:45-0500 Body mass index (BMI) [Ratio] 19.87 kg/m2 Coby Sosa Other [facility] [employer] Other 10-09-2023 15:45-0500 Body temperature 98.3 [degF] Coby Sosa Other [employer] [facility] [employer] Other 10-09-2023 15:45-0500 Body weight 61.05 kg Coby Sosa Other [facility] 10-09-2023 15:45-0500 Diastolic blood pressure 79 mm[Hg] Coby Sosa Other [facility] 10-09-2023 15:45-0500 Systolic blood pressure 126 mm[Hg] Coby Sosa Other [facility] 08-03-2023 09:50-0400 Body mass index (BMI) [Ratio] 18.72 kg/m2 Sharan Ayoub MD Work Phone: [facility] 08-03-2023 09:50-0400 Body temperature 97.39 [degF] Sharan Ayoub MD Work Phone: [facility] 08-03-2023 09:50-0400 Body weight 59.19 kg Sharan Ayoub MD Work Phone: [facility] 08-03-2023 09:50-0400 Diastolic blood pressure 79 mm[Hg] Sharan Ayoub MD Work Phone: [facility] 08-03-2023 09:50-0400 Heart rate 68 /min Sharan Ayoub MD Work Phone: [facility] 08-03-2023 09:50-0400 SaO2% (BldA) [Mass fraction] 99 % Sharan Ayoub MD Work Phone: [facility] 08-03-2023 09:50-0400 Systolic blood pressure 134 mm[Hg] Sharan Ayoub MD Work Phone: [facility] 05-03-2023 15:29-0400 Body height 177.8 cm Coby Sosa Work Phone: [facility]hn[facility]pt[facility]Dcph[facility] [address] DO Work Phone: 05-03-2023 15:29-0400 Body mass index (BMI) [Ratio] 18.51 kg/m2 Coby Sosa Work Phone: [facility]Meauaxfqkc-Zveton [address] DO Work Phone: 05-03-2023 15:29-0400 Body surface area Derived from formula 1.73 m2 Coby Sosa Work Phone: QU-Fcsaqaaeyf-Zoaosc [address] DO Work Phone: 05-03-2023 15:29-0400 Body temperature 98.6 [degF] Coby Sosa Work Phone: CR-Xyculobujy-Luoxnq [address] DO Work Phone: 05-03-2023 15:29-0400 Body weight 58.51 kg Coby Sosa Work Phone: SZ-Bxmefzntbu-Beiptm [address] DO Work Phone: 05-03-2023 15:29-0400 Diastolic blood pressure 84 mm[Hg] Coby Sosa Work Phone: HC-Druvyfyhnw-Roqfyo [address] DO Work Phone: 05-03-2023 15:29-0400 Heart rate 63 /min Coby Sosa Work Phone: BB-Ceikfnhfcw-Mlaxug 1600 DO Work Phone: 05-03-2023 15:29-0400 Systolic blood pressure 135 mm[Hg] Coby Sosa Work Phone: CU-Ggbylylqth-Frkfiw 1600 DO Work Phone: 04-03-2023 10:15-0400 Body height 175.26 cm Coby Sosa Other [employer] Other 04-03-2023 10:15-0400 Body mass index (BMI) [Ratio] 18.9 kg/m2 Coby Sosa Other [employer] Other 04-03-2023 10:15-0400 Body weight 58.06 kg Coby Sosa Other [employer] Other 04-03-2023 10:15-0400 Diastolic blood pressure 64 mm[Hg] Coby Sosa Other [employer] Other 04-03-2023 10:15-0400 SaO2% (BldA) [Mass fraction] 97 % Coby Sosa Other [employer] Other 04-03-2023 10:15-0400 Systolic blood pressure 120 mm[Hg] Coby Sosa Other [employer] Other 01-26-2023 10:46-0400 Body mass index (BMI) [Ratio] 18.37 kg/m2 Coby Sosa Work Phone: OH-Cecxxgaasm-Fpqwco Work Phone: 01-26-2023 10:46-0400 Body surface area Derived from formula 1.73 m2 Coby Sosa Work Phone: VH-Tukyhisfud-Ajdgqp Work Phone: 01-26-2023 10:46-0400 Body temperature 97.6 [degF] Coby Sosa Work Phone: RP-Zjxdvpsjbk-Sapfui Work Phone: 01-26-2023 10:46-0400 Body weight 58.06 kg Coby Sosa Work Phone: UC-Nthzpadxic-Luzbad Work Phone: 01-26-2023 10:46-0400 Diastolic blood pressure 98 mm[Hg] Coby Sosa Work Phone: MM-Eozdipxybw-Pjcvsu Work Phone: 01-26-2023 10:46-0400 Heart rate 76 /min Coby Sosa Work Phone: ED-Pxzpqwqldd-Vvicsf Work Phone: 01-26-2023 10:46-0400 Respiratory rate 18 /min Coby Sosa Work Phone: WI-Hkulghdnug-Bkvfoo Work Phone: 01-26-2023 10:46-0400 SaO2% (BldA) [Mass fraction] 99 % Coby Sosa Work Phone: EZ-Ktxjymozhg-Ayajhd Work Phone: 01-26-2023 10:46-0400 Systolic blood pressure 142 mm[Hg] Coby Sosa Work Phone: MJ-Zghifnbvca-Izowhp Work Phone: 01-26-2023 10:46-0400 0 1 Coby Sosa Work Phone: XP-Itxufzrqhx-Cnaexv Work Phone: Comment on above: [employer] 12-22-2022 17:00-0400 Body height 175.26 cm Coby Sosa Other [employer] Other 12-22-2022 17:00-0400 Body mass index (BMI) [Ratio] 19.64 kg/m2 Coby Sosa Other [employer] Other 12-22-2022 17:00-0400 Body temperature 100 [degF] Coby Sosa Other [employer] Other 12-22-2022 17:00-0400 Body weight 60.33 kg Coby Sosa Other [employer] Other 12-22-2022 17:00-0400 Diastolic blood pressure 70 mm[Hg] Coby Sosa Other [employer] Other 12-22-2022 17:00-0400 SaO2% (BldA) [Mass fraction] 97 % Coby Sosa Other [employer] Other 12-22-2022 17:00-0400 Systolic blood pressure 106 mm[Hg] Coby Sosa Other [employer] Other 07-21-2022 10:46-0400 Body height 177.8 cm Coby Sosa Work Phone: CU-Wcvtdbvwgx-Pyrkap Work Phone: 07-21-2022 10:46-0400 Body mass index (BMI) [Ratio] 18.95 kg/m2 Coby Sosa Work Phone: QP-Pscmikdyxs-Duyqtp Work Phone: 07-21-2022 10:46-0400 Body surface area Derived from formula 1.75 m2 Coby Sosa Work Phone: WL-Adlmowrufl-Ofwira Work Phone: 07-21-2022 10:46-0400 Body temperature 97.3 [degF] Coby Sosa Work Phone: VR-Scpoyipesz-Coohxy Work Phone: 07-21-2022 10:46-0400 Body weight 59.92 kg Coby Sosa Work Phone: QR-Skezgphmrd-Zgvtmx Work Phone: 07-21-2022 10:46-0400 Diastolic blood pressure 83 mm[Hg] Coby Sosa Work Phone: QA-Upcofqtwno-Gjchvw Work Phone: 07-21-2022 10:46-0400 Heart rate 58 /min Coby Sosa Work Phone: MS-Hrhptiabcz-Oxmylp Work Phone: 07-21-2022 10:46-0400 SaO2% (BldA) [Mass fraction] 97 % Coby Canales Sosa Work Phone: KN-Hmmjiopago-Kyotzv Work Phone: 07-21-2022 10:46-0400 Systolic blood pressure 119 mm[Hg] Coby Canales [place] Work Phone: GS-Cmvuenkotj-Qgxuzd Work Phone: 07-21-2022 10:46-0400 0 1 Coby Canales [place] Work Phone: BD-Gdhgavuyrw-Xrjqvx Work Phone: Comment on above: [employer]Scale 02-11-2019 12:46-0400 BMI (Body Mass Index) 19.58 kg/m2 Harmeet Cochran DZ-Eudjvwggnvdcv-Spk glas [place] Work Phone: 02-11-2019 12:46-0400 Body Temperature 97.3 [degF] Harmeet Cochran MG-Endocrinolog y-[place] Work Phone: Comment on above: Method: Tympanic 02-11-2019 12:46-0400 Body weight 61.89 kg Harmeet Cochran MG-Endocrinology -[place] Work Phone: 02-11-2019 12:46-0400 BP Diastolic 76 mm[Hg] Harmeet Cochran MG-Endocrinology -[place] Work Phone: 02-11-2019 12:46-0400 BP Systolic 121 mm[Hg] Harmeet Cochran MG-Endocrinology -[place] Work Phone: 02-11-2019 12:46-0400 BSA (Body Surface Area) 1.77 m2 Harmeet Cochran QH-Qndrfruxhyitp-Xks glas [place] Work Phone: 02-11-2019 12:46-0400 Height 177.8 cm Harmeet Cochran MG-Endocrinology -[place] Work Phone: 02-11-2019 12:46-0400 Pulse (Heart Rate) [...] Mass Index) 19.44 kg/m2 Baha Arafah MG-Gastroenterology- [place] [address] Work Phone: 01-17-2019 12:25-0400 Body Temperature 98.4 [degF] Tomasza Arafah MG-Gastroentero logy- [place] [address] Work Phone: Comment on above: Method: Oral 01-17-2019 12:25-0400 Body weight 61.46 kg Harmeet Davish MG-Endocrinology -[place] Enrique Work Phone: 01-17-2019 12:25-0400 BP Diastolic 79 mm[Hg] Baha Arafah MG-Gastroenterol ogy- [place] [address] Work Phone: 01-17-2019 12:25-0400 BP Systolic 127 mm[Hg] Baha Arafah MG-Gastroenterol ogy- [place] [address] Work Phone: 01-17-2019 12:25-0400 BSA (Body Surface Area) 1.77 m2 Baha Arafah MG-Gastroenterology- [place] [address] Work Phone: 01-17-2019 12:25-0400 Height 177.8 cm Baha Arafah MG-Gastroenterol ogy- [place] [address] Work Phone: 01-17-2019 12:25-0400 Pulse (Heart Rate) 71 /min Baha Arafah MG-Gastroente rology- [place] [address] Work Phone: 01-17-2019 12:25-0400 Pulse Oximetry 100 % Baha Arafah MG-Gastroenterol ogy- [place] [address] Work Phone: Comment on above: Source: RA 01-17-2019 12:25-0400 Weight 61.46 kg Baha Arafah MG-Gastroenterol ogy- [place] [address] Work Phone: Encounters Encounter Date Encounter Type Care Provider Facility Start: 07-01-2024 End: 07-01-2024 Patient encounter procedure MD Coby Sosa Work Phone: [facility] [place] Work Phone: Start: 07-01-2024 End: 07-01-2024 ambulatory MD Coby Sosa Work Phone: [facility] Work Phone: Start: 05-27-2024 End: 05-27-2024 ambulatory ZHANE DE DIOS Not Available Start: 05-23-2024 End: 05-23-2024 ambulatory MD Coby Sosa Work Phone: [facility] Work Phone: Start: 05-23-2024 End: 05-23-2024 Patient encounter procedure MD Coby Sosa Work Phone[facility] Start: 05-13-2024 End: 05-13-2024 ambulatory EMBER TEJEDA Not Available Start: 05-13-2024 End: 05-13-2024 Patient encounter procedure MD Coby Sosa Work Phone: [facility] [place] Work Phone: Start: 05-13-2024 End: 05-13-2024 ambulatory MD Coby Sosa Work Phone: [facility] Work Phone: Start: 05-09-2024 End: 05-09-2024 ambulatory ZHANE DE DIOS Not Available Start: 05-08-2024 Non-patient / Non-visit MD Brea Sosa Work Phone: [facility] Work Phone: Start: 04-18-2024 End: 04-18-2024 ambulatory SHARAN Koenig [facility] Start: 04-09-2024 End: 04-09-2024 ambulatory MD Coby Sosa Work Phone: [facility] Work Phone: Start: 04-09-2024 End: 04-09-2024 Patient encounter procedure MD Coby Sosa Work Phone: [facility] Work Phone: Start: 04-09-2024 End: 04-09-2024 Patient encounter procedure MD Coby Sosa Work Phone: [facility] [place] Work Phone: Start: 04-09-2024 End: 04-09-2024 ambulatory MD Coby Sosa Work Phone: [facility] Work Phone: Start: 04-02-2024 End: 04-02-2024 ambulatory EMBER TEJEDA Not Available Start: 2024 End: 2024 Patient encounter procedure MD Coby Sosa Work Phone: [facility] [place] Work Phone: Start: 2024 End: 2024 ambulatory MD Coby Sosa Work Phone: [facility] Work Phone: Start: 03-06-2024 End: 03-06-2024 Patient encounter procedure MD Coby Sosa Work Phone: [facility] [place] Work Phone: Start: 03-06-2024 End: 03-06-2024 ambulatory MD Coby Sosa Work Phone: [facility] Work Phone: Start: 02-27-2024 End: 02-27-2024 Patient encounter procedure MD Coby Sosa Work Phone: [facility] [place] Work Phone: Start: 02-27-2024 End: 02-27-2024 ambulatory MD Coby Sosa Work Phone: [facility] Work Phone: Start: 02-21-2024 End: 02-21-2024 Patient encounter procedure MD Coby Sosa Work Phone: [facility] [place] Work Phone: Start: 02-21-2024 End: 02-21-2024 ambulatory MD Coby Sosa Work Phone: [facility] Work Phone: Start: 02-15-2024 End: 02-15-2024 Patient encounter procedure MD Coby Sosa Work Phone: [facility] [place] Work Phone: Start: 02-15-2024 End: 02-15-2024 ambulatory MD Coby Sosa Work Phone: [facility] Work Phone: Start: 02-08-2024 End: 02-08-2024 ambulatory EMBER TEJEDA Not Available Start: 02-06-2024 End: 02-06-2024 Patient encounter procedure MD Coby Sosa Work Phone: [facility] [place] Work Phone: Start: 02-06-2024 End: 02-06-2024 ambulatory MD Coby Sosa Work Phone: [facility] Work Phone: Start: 02-01-2024 End: 02-01-2024 Office outpatient visit 40 minutes Sharan Ayoub MD Work Phone: [facility] [place] Comment on above: 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) (Primary Dx) Start: 02-01-2024 End: 02-01-2024 ambulatory SHARAN Koenig [facility] Start: 01-30-2024 End: 01-30-2024 Patient encounter procedure MD Coby Sosa Work Phone: [facility] [place] Work Phone: Start: 01-30-2024 End: 01-30-2024 ambulatory MD Coby Sosa Work Phone: [facility] Work Phone: Start: 01-18-2024 End: 01-24-2024 Evaluation and management of inpatient Yung Montesinos MD Work Phone: [facility] [place] 55 Comment on above: 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); Elevated LFTs; Complications, organ transplant; Encounter for screening for cardiovascular disorders; Type 1 diabetes mellitus with hyperglycemia (Multi) Start: 01-17-2024 End: 01-17-2024 Subsequent hospital visit by physician [facility] 3 [facility] Comment on above: 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); Elevated LFTs Start: 01-17-2024 End: 01-17-2024 ambulatory [facility] Start: 01-09-2024 End: 01-09-2024 Subsequent hospital visit by physician Dale [id number] Ultrasound [facility] Comment on above: Elevated LFTs; Liver replaced by transplant (CMS/HCC); Complications, organ transplant Start: 01-09-2024 End: 01-09-2024 ambulatory [facility] Start: 01-04-2024 End: 01-04-2024 Patient encounter procedure MD Coby Sosa Work Phone: [facility] [place] Work Phone: Start: 01-04-2024 End: 01-04-2024 ambulatory MD Coby Sosa Work Phone: [facility] Work Phone: Start: 12-19-2023 End: 12-19-2023 Subsequent hospital visit by physician [place] [facility] 3 [facility] Comment on above: 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); Elevated LFTs Start: 12-19-2023 End: 12-19-2023 ambulatory [facility] Start: 12-12-2023 End: 12-12-2023 Patient encounter procedure MD Coby Sosa Work Phone: [facility] [place] Work Phone: Start: 12-12-2023 End: 12-12-2023 ambulatory [facility] Facility:[facility] Start: 12-04-2023 End: 12-04-2023 Patient encounter procedure MD Coby Sosa Work Phone: [facility] [place] Work Phone: Start: 12-04-2023 End: 12-04-2023 ambulatory [facility] Facility:[facility] Start: 11-16-2023 End: 11-16-2023 ambulatory EMBER TEJEDA Not Available Start: 10-30-2023 End: 10-30-2023 ambulatory Coby Sosa Other [employer] Other Start: 10-30-2023 Office outpatient vi sit 15 minutes Coby Sosa [facility] Start: 10-30-2023 Telephone encounter Coby Sosa [facility] Start: 10-30-2023 End: 10-30-2023 Patient encounter procedure MD Coby Sosa Work Phone: [facility]- Start: 10-26-2023 End: 10-26-2023 Patient encounter procedure MD Coby Sosa Work Phone: [facility] [place] Work Phone: Start: 10-26-2023 End: 10-26-2023 ambulatory MD Coby Sosa Work Phone: [facility] Work Phone: Start: 10-09-2023 End: 10-09-2023 ambulatory Coby Sosa [address] [facility] [email or web address] Other Start: 10-09-2023 Office outpatient vi sit 15 minutes Coby Sosa [facility] [place] Start: 10-09-2023 End: 10-09-2023 Patient encounter procedure MD Coby Sosa Work Phone: [facility] [place] Work Phone: Start: 10-03-2023 End: 10-03-2023 Patient encounter procedure MD Coby Sosa Work Phone: [facility] [place] Work Phone: Start: 10-03-2023 End: 10-03-2023 ambulatory MD Coby Sosa Work Phone: [facility] Work Phone: Start: 09-05-2023 End: 09-05-2023 ambulatory MD Coby Sosa Work Phone: [facility] Work Phone: Start: 09-05-2023 End: 09-05-2023 Patient encounter procedure MD Coby Sosa Work Phone: [facility] [place] Work Phone: Start: 08-16-2023 End: 08-16-2023 Patient encounter procedure MD Coby Sosa Work Phone: [facility] [place] Work Phone: Start: 08-16-2023 End: 08-16-2023 ambulatory MD Coby Sosa Work Phone: [facility] Work Phone: Start: 08-16-2023 End: 08-16-2023 ambulatory CIERRAFAIZA DEMARCO [facility] Start: 08-03-2023 End: 08-03-2023 Office outpatient visit 25 minutes Sharan Ayoub MD Work Phone: [facility] [place] Comment on above: 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) Start: 08-03-2023 End: 08-03-2023 ambulatory SHARAN AYOUB [facility] Start: 07-18-2023 End: 07-18-2023 Patient encounter procedure MD Coby Sosa Work Phone: [facility] [place] Work Phone: Start: 07-18-2023 End: 07-18-2023 ambulatory MD Coby Sosa Work Phone: [facility] Work Phone: Start: 06-26-2023 Rx Renewal Coby Sosa Work Phone: YB-Mkewdvzxkfydhcxt-Hx [place] [address] Work Phone: Start: 06-09-2023 End: 06-09-2023 ambulatory MD Coby Sosa Work Phone: [facility] Work Phone: Start: 06-09-2023 End: 06-09-2023 Patient encounter procedure MD Coby Sosa Work Phone: [facility] [place] Work Phone: Start: 05-24-2023 AUDIT Coby Sosa Work Phone: HU-Gacwjumohkqfrtuk-Yb [place] [address] Work Phone: Start: 05-24-2023 Chart Update Coby Sosa Work Phone: WI-Tjqdbbdosetrjrzp-Hf [place] [address] Work Phone: Start: 05-19-2023 End: 05-19-2023 ambulatory MD Coby Sosa Work Phone: [facility] Work Phone: Start: 05-19-2023 End: 05-19-2023 Patient encounter procedure MD Coby Sosa Work Phone: [facility] [place] Work Phone: Start: 05-12-2023 AUDIT Coby Sosa Work Phone: LQ-Iecikdndrgroukzj-Fv [place] [address] Work Phone: Start: 05-11-2023 Rx Renewal Coby Sosa Work Phone: SA-Xtokebwipjyryzqm-Rm [place] [address] Work Phone: Start: 05-03-2023 Office consultation new/estab patient 60 min Coby Sosa Work Phone: HA-Xmwplkgafa-Dodcai 1600 DO Work Phone: Start: 05-03-[address] Sharan ricks [facility] Facility:[id number] Start: 04-24-2023 End: 04-24-2023 Patient encounter procedure MD Coby Sosa Work Phone: [facility] [place] Work Phone: Start: 04-04-2023 Chart Update Coby Sosa Work Phone: JH-Awzttzclfoorjeia-Zq [place] [address] Work Phone: Start: 04-03-2023 End: 04-03-2023 ambulatory Coby Sosa Other [employer] Other Start: 04-03-2023 Office outpatient vi sit 15 minutes Coby Sosa [facility] [place] Start: 03-28-2023 End: 03-28-2023 ambulatory MD Coby Sosa Work Phone: [facility] Work Phone: Start: 03-28-2023 End: 03-28-2023 Patient encounter procedure MD Coby Sosa Work Phone: [facility] [place] Work Phone: Start: 03-23-2023 AUDIT Coby Sosa Work Phone: OB-Jaawchqbsgthzupu-Bl [place] [address] Work Phone: Start: 03-20-2023 Chart Update Coby Sosa Work Phone: IP-Dwscxkssqifvczgo-Tr [place] [address] Work Phone: Start: 03-17-2023 End: 03-17-2023 ambulatory MD Coby Sosa Work Phone: [facility] Work Phone: Start: 03-17-2023 End: 03-17-2023 Patient encounter procedure MD Coby Sosa Work Phone: [facility] [place] Work Phone: Start: 02-28-2023 AUDIT Coby Sosa Work Phone: RH-Mppxxhceuzaflypi-Ch [place] [address] Work Phone: Start: 02-20-2023 End: 02-20-2023 Patient encounter procedure MD Coby Sosa Work Phone: [facility] [place] Work Phone: Start: 02-04-2023 Chart Update Coby Sosa Work Phone: TB-Osntwvdgeigbocqu-Ye [place] [address] Work Phone: Start: 02-03-2023 End: 02-03-[address] Sharan Ayoub Facility:[facility] Start: 02-03-2023 End: 02-03-2023 Subsequent hospital visit by physician Sharan Ayoub MD Work Phone: [facility] Comment on above: Liver transplant sta tus (CMS/HCC); Other specified abnormal findings of blood chemistry; Type 2 diabetes mellitus without complications (CMS/HCC); Immunodeficiency, unspecified (CMS/HCC); Anxiety disorder, unspecified; Thyrotoxicosis, unspecified without thyrotoxic crisis or storm Start: 01-31-2023 Rx Renewal Coby Sosa Work Phone: EX-Znzmltwnvzmanjos-Ty [place] [address] Work Phone: Start: 01-30-2023 Chart Update Coby Sosa Work Phone: AP-Kdgyodwqforsqqzc-Ht [place] [address] Work Phone: Start: 01-27-2023 End: 01-27-2023 ambulatory MD Coby Sosa Work Phone: [facility] Work Phone: Start: 01-27-2023 End: 01-27-2023 Patient encounter procedure MD Coby Sosa Work Phone: [facility] [place] Work Phone: Start: 01-26-2023 Patient encounter procedure Coby Sosa Work Phone: LF-Rssquxmmcm-Mkdryv Work Phone: Start: 01-26-[address] Yung Montesinos Facility:[facility] Start: 01-26-[address] Sharan Ayoub Facility:[facility] Start: 01-16-2023 End: 01-16-2023 Patient encounter procedure MD Coby Sosa Work Phone: [facility] [place] Work Phone: Start: 01-11-2023 AUDIT Coby Sosa Work Phone: GI-Skahqjkcjxgbxsol-Fm [place] [address] Work Phone: Start: 12-26-2022 Chart Update Coby Sosa Work Phone: DQ-Gbwhweqdwtfxrtui-Po [place] [address] Work Phone: Start: 12-23-2022 End: 12-23-2022 ambulatory MD Coby Sosa Work Phone: [facility] Work Phone: Start: 12-23-2022 End: 12-23-2022 Patient encounter procedure MD Coby Sosa Work Phone: [facility] [place] Work Phone: Start: 12-22-2022 End: 12-22-2022 ambulatory Coby Sosa Other [facility] [email or web address] Other Start: 12-22-2022 Office outpatient vi sit 15 minutes Coby Sosa [facility] Start: 11-03-2022 Chart Update Coby Sosa Work Phone: AA-Jxcvqacwhqkzvdjo-Bs [place] [address] Work Phone: Start: 11-02-2022 End: 11-02-2022 ambulatory MD Coby Sosa Work Phone: [facility] Work Phone: Start: 11-02-2022 End: 11-02-2022 Patient encounter procedure MD Coby Sosa Work Phone: [facility] [place] Work Phone: Start: 10-26-2022 End: 10-26-[address] COBY SOSA Facility: Start: 09-05-2022 Rx Renewal Coby Sosa Work Phone: CW-Vuohnhtuzouorcaz-Bl [place] [address] Work Phone: Start: 08-09-2022 End: 08-09-2022 ambulatory MD Coby Sosa Work Phone: [facility] Work Phone: Start: 08-09-2022 End: 08-09-2022 Patient encounter procedure MD Coby Sosa Work Phone: [facility] [place] Start: 07-26-2022 AUDIT Coby Sosa Work Phone: XH-Rqjjotbldbarrnrm-Tl [place] [address] Work Phone: Start: 07-21-2022 Patient encounter procedure Coby Sosa Work Phone: AJ-Fhvcbbfclu-Ludchm Work Phone: Start: 07-21-[address] Yung avila Post Facility:[facility] Start: 05-16-2022 Chart Update Coby Sosa Work Phone: HS-Cyjkvmfajjnloufk-Dv [place] [address] Work Phone: Start: 05-11-2022 End: 05-11-2022 Patient encounter procedure MD Coby Sosa Work Phone: [facility] [place] Start: 05-10-2022 AUDIT Coby Sosa Work Phone: YT-Yqkmuetudgazypnm-Kw [place] [address] Work Phone: Start: 05-05-2022 Chart Update Coby Sosa Work Phone: JE-Jcmhocadiqhoojow-Ux [place] [address] Work Phone: Start: 05-03-2022 End: 05-03-2022 Patient encounter procedure MD Coby Sosa Work Phone: [facility] [place] Start: 03-21-2022 AUDIT Coby Sosa Work Phone: XI-Lfhbyypedkvjgapt-Se [place] [address] Work Phone: Start: 03-11-2022 End: 03-11-2022 Patient encounter procedure MD Coby Sosa Work Phone: [facility] [place] Start: 02-08-2022 AUDIT Coby Sosa Work Phone: QC-Gzmxmyadvggsqshs-Ix [place] [address] Work Phone: Start: 02-03-2022 Office outpatient vi sit 15 minutes Coby Sosa Work Phone: BP-Tlmqrgwddcojbvdf-Vl [place] [address] Work Phone: Start: 02-03-2022 Patient encounter procedure Coby Sosa Work Phone: YJ-Begavaebki-BWB [place] [address] Work Phone: Start: 12-24-2021 End: 12-24-[address] COBY SOSA Facility: Start: 12-14-2021 Chart Update Coby Sosa Work Phone: SO-Ctoeharjnaxqcmpr-Ex [place] [address] Work Phone: Start: 11-25-2021 AUDIT Coby Sosa Work Phone: UM-Jsqfnosmlnklmrbd-Ko [place] [address] Work Phone: Start: 11-22-2021 Chart Update Coby Sosa Work Phone: UN-Rirtboaurzvjhpbq-Ey [place] [address] Work Phone: Start: 08-31-2021 Rx Renewal Coby Sosa Work Phone: YK-Kcmdkylbgqeczjhu-Oo [place] [address] Work Phone: Start: 08-10-2021 Chart Update Coby Sosa Work Phone: HG-Znjhfqmrevzwxlfj-El [place] [address] Work Phone: Start: 08-02-2021 Rx Renewal Coby Sosa Work Phone: ZD-Iarxyiqxkcbocvxf-Kz [place] [address] [facility] Work Phone: Start: 07-16-2021 AUDIT Coby Sosa Work Phone: HF-Nrbxjagyitwuuory-Ls [place] [address] Work Phone: Start: 07-08-2021 Patient encounter procedure Coby Sosa Work Phone: FF-Mdscjhfdkq-TPC [place] [address] Work Phone: Start: 06-23-2021 Chart Update Coby Sosa Work Phone: DU-Hmjlezcrqtnblkwf-Lr [place] [address] Work Phone: Start: 05-03-2021 Chart Update Coby Sosa Work Phone: IW-Nwaqexzrqevzpkum-Yi [place] [address] I Work Phone: Start: 11-12-2020 Patient encounter procedure Harmeet Cochran MD FV-Mdsiwhi-Tctep Main Work Phone: Start: 11-09-2020 End: 11-09-2020 Patient encounter procedure Coby Sosa -Pre-Surgical Testing Start: 11-04-2020 End: 11-04-2020 Patient encounter procedure Coby Sosa -Pre-Surgical Testing Start: 10-13-2020 End: 10-13-2020 Patient encounter procedure Coby Sosa -Lab [facility] [place] Start: 10-07-2020 Registered Recurring Coby Gray [facility] Start: 04-30-2020 Patient encounter procedure Harmeet Cochran MD YN-Nphrbdu-Wurrb Main Work Phone: Start: 10-31-2019 Patient encounter procedure Harmeet Cochran MD KL-Lfmijwg-Ieccv Main Work Phone: Start: 08-26-2019 Patient encounter procedure Harmeet Cochran MD CM-Nbjvuxm-Pmbgs Main Work Phone: Start: 07-25-2019 Patient encounter procedure Harmeet Cochran MD FC-Pvazqgc-Kjaao Main Work Phone: Start: 07-25-2019 Patient encounter procedure Harmeet Cochran MD ES-Jymslhw-Bbefn Main Work Phone: Start: 05-27-2019 Patient encounter procedure Harmeet Cochran MD UW-Ermpjbp-Qslqn Main Work Phone: Start: 04-25-2019 Patient encounter procedure Harmeet Cochran MD ST-Uekpdsm-Ahwhy Main Work Phone: Start: 04-17-2019 Patient encounter procedure Harmeet Cochran MD GM-Oxpsrfl-Vqdwz Main Work Phone: Start: 02-11-2019 Patient encounter procedure Harmeet Cochran TI-Rhhmovrzevvry-Gwwnd as [place] Work Phone: Start: 01-17-2019 Patient encounter procedure [facility] SI-Gpnyixikfejwmykl-Yt [facility] Work Phone: Start: 11-12-2018 Patient encounter procedure [facility] FD-Htienkuhsdgpaevp-Gy [facility] Work Phone: Start: 11-12-2018 Patient encounter procedure [facility] JZ-Atjgfmeakiqnhwqm-As [facility] Work Phone: Start: 10-10-2018 Patient encounter procedure [facility] ED-Ljlurgzjyjpwrsuj-Eh [facility] Work Phone: Start: 10-04-2018 Patient encounter procedure [facility] QP-Tiurdcrxuzpgjdng-Ji [facility] Work Phone: Start: 08-21-2018 Patient encounter procedure [facility] VZ-Nnrgnszpocfelhhu-Cx [facility] Work Phone: Start: 07-16-2018 Patient encounter procedure [facility] XM-Shzvqeuntaqpyrrg-Ly [facility] Work Phone: Start: 07-11-2018 Patient encounter procedure [facility] IJ-Jykqhxnornfjvded-Da [facility] Work Phone: Start: 04-25-2018 Patient encounter procedure [facility] IA-Jglytvymoerodpnm-Uk [facility] Work Phone: Start: 04-11-2018 Patient encounter procedure [facility] TF-Acuswphqvxmobgws-Dz [facility] Work Phone: Start: 02-13-2018 Patient encounter procedure [facility] OV-Lvfabmvnpjgyabkz-Jm [facility] Work Phone: Start: 01-31-2018 Patient encounter procedure [facility] QS-Urzrwjbitdkebykg-Au [facility] Work Phone: Start: 12-13-2017 Patient encounter procedure [facility] WW-Ygsdauhjkrrrhmdw-Se [facility] Work Phone: Start: 11-08-2017 Patient encounter procedure [facility] MO-Zuxrxmewpkdbzreb-Oo [facility] Work Phone: Start: 10-04-2017 Patient encounter procedure [facility] KS-Pwfslydyevuoftux-Lr [facility] Work Phone: Start: 08-30-2017 Patient encounter procedure [facility] PG-Pkqqejrophlvggyp-Dx [facility] Work Phone: Start: 07-11-2017 Patient encounter procedure [facility] VP-Aoomxwluajahcsuq-Vb [facility] Work Phone: Start: 06-07-2017 Patient encounter procedure [facility] PO-Ysxglsjgxlgzhtdf-Zz [facility] Work Phone: Start: 05-22-2017 Admission to day surgery [facility] MP-Xyawwwpjmnthutfj-Gn [facility] Work Phone: Start: 05-11-2017 Admission to day surgery [facility] VC-Zectmdmplmiimjxq-Ke [facility] Work Phone: Start: 04-26-2017 Patient encounter procedure [facility] NK-Irronaoekrejkwye-Jp [facility] Work Phone: Start: 04-17-2017 Admission to day surgery [facility] VT-Nydrjugiyuzoepzo-Jl [facility] Work Phone: Start: 04-11-2017 Patient encounter procedure [facility] JA-Fsbgvkqidmsluwmf-Rj [facility] Work Phone: Start: 02-20-2017 Admission to day surgery [facility] SF-Olwlkljdxwfdmyri-Oc [facility] Work Phone: Procedures Date [...] - Serum or Plasma SHARAN HUNTEROLAM Start: 01-20-2024 Magnesium [Mass/volume] in Serum [...] Phone: Start: 01-20-2024 [facility] Start: 01-20-2024 Glucose [Mass/volume] in Serum or [...] Work Phone: Start: 01-18-2024 FULL CODE SHARAN AYOBU Start: 01-18-2024 IP CONSULT TO ENDOCRINOLOGY SHARAN [...] Start: 01-17-2024 US GUIDED NEEDLE LIVER BIOPSY SHRAAN HARRISONDOMINICK Start: 01-17-2024 Biopsy liver needle percutaneous [...] Lipid 1996 panel - Serum or Plasma Sharan Ayoub MD Work Phone: Start: 06-09-2023 Thyrotropin [...] 60+ years (1 - 1-dose 60+ series) [facility] Start: 06-09-2024 Lipid panel Lipid Panel [facility] Start: 06-09-2024 Thyroid stimulating hormone measurement TSH Level [facility] Start: 06-07-2024 End: 06-07-2024 Patient encounter procedure 06/07/2024 9:45 AM EDT Office Visit [facility] [place] [address] [address] [facility] [address] [place] [id number] [place] [address] [address] Department of Medicine[place] [address] [facility] Start: 06-02-2024 Influenza vaccination Influenz a Vaccine (Season Ended) [facility] Start: 04-19-2024 Hemoglobin A1c measurement Diabetes: Hemoglobin A1C [facility] Start: 04-18-2024 End: 04-18-2024 Patient encounter procedure 04/18/2024 9:30 AM EDT Office [place] [facility] [place] [address] [address] Leigh Lázaro [address] [place] [id number] [place] [address] [address] Department [place] [address] [facility] Start: 02-01-2024 End: 02-01-2024 Patient encounter procedure [facility] Comment on above: 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) (Primary Dx) 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) (Primary Dx) Start: 10-03-2023 [facility] Start: 09-05-2023 [facility] Start: 08-03-2023 LIVFUVMED, Provider: Sharan Ayoub, Status: Pen, Time: 10:00 AM LIVFUVMED, Provider: Sharan Ayoub, Status: Pen, Time: 10:00 AM NJ-Yhwxnwnito-Hsbsw r Work Phone: Start: 08-02-2023 VIRFUVHOMAlly, Provider : Leighton Reilly, Status: Pen, Time: 2:40 PM VIRFUVHOME, Provider: Leighton Reilly, Status: Pen, Time: 2:40 PM EN-Mglvraxafu-Bdmgc r [address] DO Work Phone: Start: 07-18-2023 [facility] Start: 06-09-2023 [facility] Start: 06-02-2023 Influenza vaccination Influenz a Vaccine (#1) [facility] Start: 05-19-2023 [facility] Start: 05-03-2023 FUVHOSP, Provider: Leighton Reilly, Status: Pen, Time: 4:00 PM FUVHOSP, Provider: Leighton Reilly, Status: Pen, Time: 4:00 PM [facility] [facility] Work Phone: Start: 03-28-2023 [facility] Start: 03-28-2023 VIRNPCORINE, Provider : Angela Mc, Status: Pen, Time: 10:20 AM VIRNPVERINN, Provider: Angela Mc, Status: Pen, Time: 10:20 AM [facility] [facility] Work Phone: Start: 03-22-2023 FUVHOSP, Provider: Leighton Reilly, Status: Pen, Time: 3:20 PM FUVHOSP, Provider: Leighton Reilly, Status: Pen, Time: 3:20 PM [facility] [facility] Work Phone: Start: 01-26-2023 LIVFUVMED, Provider: Sharan Ayoub, Status: Pen, Time: 10:45 AM LIVFUVMED, Provider: Sharan Ayoub, Status: Pen, Time: 10:45 AM [facility] -[facility] Work Phone: Start: 01-19-2023 LIVFUVMED, Provider: Sharan Ayoub, Status: Pen, Time: 10:45 AM LIVFUVMED, Provider: Sharan Ayoub, Status: Pen, Time: 10:45 AM KR-Cuosyvfjdg-Phcar r Work Phone: Start: 07-21-2022 LIVFUVMED, Provider: Sharan Ayoub, Status: Pen, Time: 10:45 AM LIVFUVMED, Provider: Sharan Ayoub, Status: Pen, Time: 10:45 AM [facility] [facility] Work Phone: Start: 05-11-2022 End: 05-11-2022 Patient encounter procedure [facility] Start: 02-03-2022 VIRFUVHOME, Provider : Sharan Ayoub, Status: Pen, Time: 9:00 AM VIRFUVHOME, Provider: Sharan Ayoub, Status: Pen, Time: 9:00 AM [facility] [facility] Work Phone: Start: 07-08-2021 VIRFUVHOME, Provider : Sharan Ayoub, Status: Pen, Time: 10:30 AM VIRFUVHOME, Provider: Sharan Ayoub, Status: Pen, Time: 10:30 AM [facility] [facility] Work Phone: Start: 05-06-2021 LIVFUVMBRENDA, Provider: Sharan Ayoub, Status: Pen, Time: 10:15 AM LIVFUVMED, Provider: Sharan Ayoub, Status: Pen, Time: 10:15 AM [facility] Work Phone: Start: 03-16-2020 DTaP/Tdap/Td Vaccine s (2 - Td or Tdap) DTaP/Tdap/Td Vaccines (2 - Td or Tdap) [facility] Start: 03-11-2019 Ultrasound Liver [facility]-Gas troenterology -Ritesh [address] I Work Phone: Start: 03-04-2019 IO Liver Ultrasound [facility] [facility] Work Phone: Start: 11-21-2017 Hemoglobin A1c measurement Diabetes: Hemoglobin A1C [facility] Start: 2015 DTaP/Tdap/Td Vaccine s (1 - Tdap) DTaP/Tdap/Td Vaccines (1 - Tdap) [facility] Start: 2012 Hepatitis A Vaccines (1 of 2 - Risk 2-dose series) Hepatitis A Vaccines (1 of 2 - Risk 2-dose series) [facility] Start: 2012 Urine screening for protein Diabetes: Urine Protein Screening [facility] Start: 2012 Zoster Vaccines (1 of 2) Zoste r Vaccines (1 of 2) [facility] Start: 09-15-2010 Hepatitis A Vaccines (2 of 2 - Risk 2-dose series) Hepatitis A Vaccines (2 of 2 - Risk 2-dose series) [facility] Start: 04-20-2010 Hepatitis B Vaccines (2 of 3 - 3-dose series) Hepatitis B Vaccines (2 of 3 - 3-dose series) [facility] Start: 2006 Varicella vaccination Varicell a Vaccines (1 of 2 - 13+ 2-dose series) [facility] Start: 2003 Diabetic foot examination Diabetes: Foot Exam [facility] Start: 2003 Glaucoma screening Diabetes: R etinopathy Screening [facility] Start: 1999 Pneumococcal Vaccine : Pediatrics (0 to 5 Years) and At-Risk Patients (6 to 64 Years) (1 - PCV) Pneumococcal Vaccine: Pediatrics (0 to 5 Years) and At-Risk Patients (6 to 64 Years) (1 - PCV) [facility] Start: 1999 Pneumococcal Vaccine : Pediatrics (0 to 5 Years) and At-Risk Patients (6 to 64 Years) (1 of 2 - PCV) Pneumococcal Vaccine: Pediatrics (0 to 5 Years) and At-Risk Patients (6 to 64 Years) (1 of 2 - PCV) [facility] Start: 1998 COVID-19 Vaccine (#1) COVID-19 Vacci ne (#1) [facility] Start: 1994 MMR Vaccines (1 of 1 - Standard series) MMR Vaccines (1 of 1 - Standard series) [facility] Start: 1994 Varicella vaccination Varicell a Vaccines (1 of 2 - 2-dose childhood series) [facility] Start: 1993 Cyanocobalamin vitam in b-12 Vitamin B-12 [facility] Start: 1993 Diabetes: Celiac Dis ease Screening Diabetes: Celiac Disease Screening [facility] Start: 1993 Hepatitis B Vaccines (1 of 3 - 3-dose series) Hepatitis B Vaccines (1 of 3 - 3-dose series) [facility] Start: 1993 HIV screening HIV Screening [facility] Start: 1993 Yearly Adult Physical Yearly Adult P hysical [facility] Electrocardiogram, 12-lead PRN ACS symptoms Electrocardiogram, 12-lead PRN ACS symptoms ECG Routine As needed until discontinued starting 01/18/2024 [facility] Service Area Work Phone: Comment on above: As needed until disc ontinued starting 01/18/2024 Isaac Fair virus D NA [#/volume] (viral load) in Blood by LÁZARO with probe detection [facility] Isaac Fair virus D NA [#/volume] (viral load) in Blood by LÁZARO with probe detection [facility] Isaac Fair virus D NA [#/volume] (viral load) in Serum or Plasma by LÁZARO with probe detection [facility] Isaac Fair virus D NA [#/volume] (viral load) in Serum or Plasma by LÁZARO with probe detection [facility] Isaac Fair virus D NA [#/volume] (viral load) in Serum or Plasma by LÁZARO with probe detection [facility] Isaac Fair virus D NA [#/volume] (viral load) in Serum or Plasma by LÁZARO with probe detection [facility] Isaac Fair virus D NA assay [facility] Isaac Fair virus D NA assay [facility] Isaac Fair virus D NA assay [facility] Isaac Fair virus D NA assay [facility] Glucose [Mass/volume ] in Serum or Plasma POCT Glucose Point of Care Testing - Docked Device Routine As needed (Lab) until discontinued starting 01/18/2024 [facility] Work Phone: Comment on above: As needed (Lab) unti l discontinued starting 01/18/2024 End: 01-19-2024 Glucose [Mass/volume] in Serum or Plasma POCT Glucose Point of Care Testing - Docked Device Routine Once (Lab) for 1 Occurrences starting 01/19/2024 until 01/19/2024 [facility] Work Phone: Comment on above: Once (Lab) for 1 Occ urrences starting 01/19/2024 until 01/19/2024 End: 01-21-2024 Glucose [Mass/volume] in Serum or Plasma POCT Glucose Point of Care Testing - Docked Device Routine 4 times daily before meals and at bedtime for 3 Days starting 01/19/2024 until 01/21/2024, 6 completed [facility] Work Phone: Comment on above: 4 times daily before meals and at bedtime for 3 Days starting 01/19/2024 until 01/21/2024, 6 completed End: 01-25-2024 Glucose [Mass/volume] in Serum or Plasma POCT Glucose Point of Care Testing - Docked Device Routine 4 times daily before meals and at bedtime for 3 Days starting 01/22/2024 until 01/25/2024, 2 completed [facility] Service Area Work Phone: Comment on above: 4 times daily before meals and at bedtime for 3 Days starting 01/22/2024 until 01/25/2024, 2 completed Polymerase chain reaction for Isaac-Fair virus [facility] Polymerase chain reaction for Isaac-Fair virus [facility] End: 12-19-2023 Surgical pathology study [facility] Service Grabiel bailey Work Phone: Comment on above: Once (Lab) for 1 Occ urrences starting 12/19/2023 until 12/19/2023, 1 completed End: 01-17-2024 Surgical pathology study [facility] Service Grabiel bailey Work Phone: Comment on above: Once (Lab) for 1 Occ urrences starting 01/17/2024 until 01/17/2024, 1 completed End: 01-23-2024 Surgical pathology study [facility] Service Grabiel bailey Work Phone: Comment on above: Once (Lab) for 1 Occ urrences starting 01/23/2024 until 01/23/2024, 1 completed Tacrolimus [Mass/vol ume] in [facility] Tacrolimus [Mass/vol ume] in [facility] Tacrolimus [Mass/vol ume] in [facility] Tacrolimus [Mass/vol ume] in [facility] Tacrolimus [Mass/vol ume] in [facility] Tacrolimus [Mass/vol ume] in [facility] Tacrolimus [Mass/vol ume] in [facility] Tacrolimus [Mass/vol ume] in [facility] Tacrolimus [Mass/vol ume] in [facility] Tacrolimus [Mass/vol ume] in [facility] Tacrolimus [Mass/vol ume] in [facility] Tacrolimus [Mass/vol ume] in [facility] [facility] Work Phone: [facility] NEGATED: Highlighted row has been ruled out! Planned Goals not documented [facility] [facility] Work Phone: Immunizations Immunization Date Immunization Notes Care Provider [facility] 08-15-2016 influenza, seasonal, injectable, preservative free; Translations: [Fluarix 0.5 ML MATIAS] Harmeet Cochran -Gastroenterology- [place] [address] [facility] Work Phone: Comment on above: Series: 08-15-2016 influenza virus vaccine, unspecified formulation Sharan Ayoub MD Work Phone: [facility] Work Phone: 03-23-2010 hepatitis B vaccine, pediatric or pediatric/adolescent dosage Yung Montesinos MD Work Phone: [facility] Work Phone: 03-16-2010 hepatitis A vaccine, adult dosage Yung Montesinos MD Work Phone: [facility] Work Phone: 03-16-2010 tetanus toxoid, redu jenna diphtheria toxoid, and acellular pertussis vaccine, adsorbed Yung Montesinos MD Work Phone: [facility] Work Phone: 03-16-2010 hepatitis A and hepatitis B vaccine [address] Work Phone: Payers Date Payer Category Payer Self-pay [id number] 2022 Private Health Insurance [facility] [id number] 2022-Present [address] [place] [address] [id number] 2022 Unknown 1993 Unknown [id number] 2.16.840.1.329383.3.579.2. 593 1993 Unknown [id number] 2.16.840.1.624742.3.579.2. 593 1993 Unknown [id number] 2.16.840.1.783210.3.579.2. 356 1993 Unknown [id number] 2.16.840.1.547231.3.579.2. 356 1993 Unknown [id number] 2.16.840.1.400258.3.579.2. 356 1993 Unknown [id number] 2.16.840.1.609107.3.579.2. 356 1993 Unknown [id number] 2.16.840.1.882490.3.579.2. 356 1993 Unknown [id number] 2.16.840.1.369610.3.579.2. 1258 1993 Unknown [id number] 2.16.840.1.164904.3.579.2. 1258 1993 Unknown [id number] 2.16840.1.042628.3.579.2. 1258 1993 Unknown [id number] 2.840.1.661390.3.579.2. 1258 1993 Unknown [id number] 2.840.1.983382.3.579.2. 1258 1993 Unknown [id number] 2.16840.1.376117.3.579.2. 1258 1993 Unknown [id number] 2.16840.1.470585.3.579.2. 1244 1993 Unknown [id number] 2.16840.1.129331.3.579.2. 1244 1993 Unknown [id number] 2.16840.1.137480.3.579.2. 1244 1993 Unknown [id number] 2.16840.1.908595.3.579.2. 1244 1993 Unknown [id number] 2.16840.1.265908.3.579.2. 1244 1993 Unknown [id number] 2.16840.1.718932.3.579.2. 1244 1993 Unknown [id number] 2.16840.1.098895.3.579.2. 1245 1993 Unknown [id number] 2.16.840.1.318078.3.579.2. 1245 1959 Unknown [id number] 1959 Unknown [id number] Unknown [id number] Unknown [id number] 2.16.840.1.906698.19 Unknown [id number] 2.16.840.1.254821.3.579.2. 531 Unknown [id number] 2.16.840.1.769830.3.579.2. 531 Unknown [id number] 2.16.840.1.656748.3.579.2. 531 Unknown [id number] 2.16840.1.642127.3.579.2. 531 Unknown [id number] 2.16.840.1.143288.3.579.2. 531 Unknown [id number] 2.16.840.1.352089.3.579.2. 531 Unknown [id number] 2.16.840.1.499713.3.579.2. 531 Unknown [id number] 2.16.840.1.762109.3.579.2. 531 Unknown [id number] 2.16.840.1.972422.3.579.2. 531 Unknown [id number] 2.16.840.1.554788.3.579.2. 531 Unknown [id number] 2.16.840.1.136442.3.579.2. 531 Unknown [id number] 2.16.840.1.784364.3.579.2. 531 Unknown [id number] 2.16.840.1.143046.3.579.2. 531 Unknown [id number] 2.16.840.1.046682.3.579.2. 531 Unknown [id number] 2.16.840.1.035558.3.579.2. 531 Unknown [id number] 2.16.840.1.351920.3.579.2. 531 Unknown [id number] 2.16.840.1.294238.3.579.2. 531 Unknown [id number] 2..840.1.543739.3.579.2. 531 Social History Date Type Detail Facility Start: 1995 Sex Assigned At Male [facility] Start: 07-19-2023 End: 01-19-2024 Does not use tobacco Does not use tobacco [facility] [place] [address] [facility] Work Phone: Start: 11-11-2020 End: 07-19-2023 Tobacco smoking status NHIS Never smoked tobacco (finding) [facility] Start: 07-19-2023 End: 01-19-2024 Sex Assigned At [employer] Other Start: 07-19-2023 Tobacco use and exposure Smokeless tobacco non-user [facility] Work Phone: Start: 1995 Sex Assigned At Not on file [facility] Work Phone: Start: 07-24-2023 End: 02-01-2024 Exposure to SARS-CoV-2 (event) Not sure [facility] Tobacco smoking status PRIS Tobacco smoking consumption unknown [facility] Work Phone: Start: 12-19-2023 Alcohol intake Lifetime non-d lyndon (finding) [facility] Work Phone: How often to you have a drink containing alcohol? Never [facility] Work Phone: How many standard drinks containing alcohol do you have on a typical day? Patient does not drink [facility] Work Phone: In the past 12 months, was there a time when you were not able to pay the mortgage or rent on time? No [facility] Work Phone: NEGATED: Highlighted row - Never smoker [facility]astroenterology- We angie [address] [facility] Work Phone: Medical Equipment Procedure Code [...] 4 times daily Quantity: 2 Refills: 6 Yaneli Edwards MD Start : 25-Oct-2016 Active [address] Start: 10-25-2016 Test blood sugar s 5 times daily as directed [id number] Test 4 times daily [id number] Start: 10-25-2016 Use to inject 1- 4 times daily as directed. [id number] Start: 01-24-2024 End: 01-23-2025 Use to inject 1- 4 times daily as directed. [id number] Start: 01-24-2024 End: 01-24-2024 Goals Date Patient Goal Desired Activity /State Functional Status Date Assessment Result Facility NEGATED: Highlighted row Functional performance Functional status health issues are not documented Disease [facility] [address] [facility] Work Phone: Mental Status Date Assessment Result Facility NEGATED: Highlighted row Cognitive function [Interpretation] Cognitive status health issues are not documented Disease [facility] [address] [facility] Work Phone: Clinical Notes 04-01-2016 to [...] We will see him every 2 months [facility] Work Phone: 02-01-2024 Miscellaneous Notes Associated Problem(s): Acute rejection of liver transplant (Multi) Why he developed ACR or chronic rejection is somewhat unclear The plan is to taper his prednisone by 10 mg every week to park it at 10 mg daily We will monitor liver function monthly We will see him every 2 months documented in this encounter [facility] Work Phone: 02-01-2024 History of Present illness [...] HEPBSAG NONREACTIVE 08/15/2017 No results found for: [id number] , [id number] === 01/18/24 === US LIVER WITH DOPPLER - Impression - 1. Trace amount of ascites. 2. Essentially normal Doppler evaluation. 3. Non-obstructing stones right kidney MACRO: None Signed by: Татьяна Eid 01/23/2024 12:57 PM Dictation workstation: [id number] Acute rejection of liver transplant (Multi) Why he developed ACR or chronic rejection is somewhat unclear The plan is to taper his prednisone by 10 mg every week to park it at 10 mg daily We will monitor liver function monthly We will see him every 2 months documented in this encounter [facility] Work Phone: 01-24-2024 Nurse Note 01/24/20241817 Discharge Note Patient discharged home with no needs. Discharge instructions discussed with patient, verbalized understanding. Aware of follow up appointments needed. Aware of changes to medications at discharge. Patient requested NPH insulin to be filled here at [facility] since it is late in day and may not be able to order picker/assembler in time for AM dose. NPH filled at [facility] and picked up for patient and delivered to patient prior to discharge. Aware of other medications sent to patient's home preferred pharmacy. Peripheral IV discontinued. Belongings gathered per patient and mom. Refused transport and ambulated off unit at 1823. ---- Amirah Win RN [facility] 01-24-2024 Nurse Note 01/24/20241817 Discharge Note Patient discharged home with no needs. Discharge instructions discussed with patient, verbalized understanding. Aware of follow up appointments needed. Aware of changes to medications at discharge. Patient requested NPH insulin to be filled here at [facility] since it is late in day and may not be able to order picker/assembler in time for AM dose. NPH filled at [facility] and picked up for patient and delivered to patient prior to discharge. Aware of other medications sent to patient's home preferred pharmacy. Peripheral IV discontinued. Belongings gathered per patient and mom. Refused transport and ambulated off unit at 1823. ---- Amirah Win RN documented in this encounter [facility] Work Phone: 01-24-2024 History of Present illness [...] q12h Patti Darnell MD 250 mg at 01/24/24 1217 ondansetron [...] Diabetes History Type 1DM :diagnosed in 04/2016 Hooker Operator : Yaneli Myles (last visit with her in 2018) Now sees his PCP at [facility] Home regimen - medtronic 670 G pump [...] Patient discussed with attending - Dr. Gabino Hwagn MD Associated attestation - Kamala Lloyd DO [...] would greatly benefit from establishing with an signal operator outpatient. Kamala Lloyd DO Luly Giron is [...] g 25 g intravenous q15 min PRN Ptati Darnell MD [Held by provider] enoxaparin (Lovenox) [...] injection 15 Units 15 Units subcutaneous Once Mya Dawson MD INSULIN [...] Diabetes History Type 1DM :diagnosed in 04/2016 Hooker Operator : Yaneli Myles (last visit with her in 2018) Now sees his PCP at [facility] regimen - medtronic 670G pump Accuchecks/ CGM [...] follow up- He can follow up in [facility] with PCP Patient discussed with attending - [...] code (confirmed on admission) NOK: Candis (mother) [phone] Mya Dawson MD Internal Medicine, PGY-1 Associated [...] due to the hyperglycemia. Olivia Castaneda MD, [facility] Dairy Worker, Hepatology Senior Attending Physician [facility] tester regulator Division of Gastroenterology and Liver Disease [employer] [facility] [employer] [address] [place] [phone] Luly Giron is a 28 y.o. male [...] Diabetes History Type 1DM :diagnosed in 04/2016 Hooker Operator : Yaneli Myles (last visit with her [...] follow up- He can follow up in [facility] with PCP Patient discussed with attending - [...] Potential Barriers: none ADOD: 01/22 versus 01/23 program coordinator will continue to follow for discharge planning needs. Kapil العلي RN Transitional Nail Sticker/TCC [id number] Luly Giron is a 28 y.o. male [...] will hold lovenox and make NPO at [place] [] PO PPI [] Zofran prn [] [...] E: PRN N: diabetic diet, NPO at [place] GI: PO pantoprazole DVT ppx: Lovenox, held Code status: Full code (confirmed on admission) NOK: Candis (mother) [phone] Associated attestation - Olivia Castaneda MD - [...] oral steroids tomorrow. Olivia Castaneda MD, FAASLD, [facility] Dairy Worker, Hepatology Senior Attending Physician [facility] tester regulator Division of Gastroenterology and Liver Disease [facility] [address] [place] [phone] Luly Giron is a 28 y.o. male [...] code (confirmed on admission) NOK: Candis (mother) [phone] Associated attestation - Olivia Castaneda MD - [...] I did communicate with his primary clinic assistance coordinator who wanted a repeat liver biopsy within the next couple of days. He is concerned as to make sure that the rejection has improved with the steroids and to confirm whether he really has stage 3 fibrosis or not. We will go ahead and arrange the biopsy. Olivia Castaneda MD, FAASLD, [facility] Dairy Worker, Hepatology Senior Attending Physician [facility] tester regulator Division of Gastroenterology and Liver Disease [employer] [facility] [employer] [address] [place] [phone] Luly Giron is a 28 y.o. male [...] 84 (H) 01/19/2024 GLUCOSE 262 (H) 01/19/2024 [id number] 0.09 (H) 08/18/2017 Assessment/Plan Principal Problem: Acute [...] Diabetes History Type 1DM :diagnosed in 04/2016 Hooker Operator : [facility] pcp [facility] per pt DM Home meds- medtronic 670G [...] follow up- He can follow up in [facility] with PCP Monserrat Estrada MD Endocrinology, PGY 5 Pager [phone] or secure chat Associated attestation - Quentin [...] code (confirmed on admission) NOK: Candis (mother) [phone] Mya Dawson MD Internal Medicine, PGY-1 Associated [...] from the [employer]. Olivia Castaneda MD, FAASLD, [facility] Dairy Worker, Hepatology Senior Attending Physician [facility] tester regulator Division of Gastroenterology and Liver Disease [facility] [employer] [facility] [address] [place] [phone] Pharmacy Medication History Review Luly Giron is a 28 y.o. male admitted for Acute rejection of liver transplant ([facility]). Pharmacy reviewed the patient's oaruh-eb-ojuvmouyr medications and allergies for accuracy. The list below reflects the updated ZOOGLER list. Comments regarding how patient may be [...] at discharge. Pharmacy has been updated to [facility] in [place]. Sources used to complete the med history include out patient fill history, OARRS, and patient interview Reliable historian Below are additional concerns with the patient's ZOOGLER list. N/A Ramin Melton PharmD Transitions of Care Pharmacist [facility] Please reach out via Secure Chat for questions, or if no response call ScrollMotion or Attensity 01/19/24 1344 Discharge Planning Living Arrangements Spouse/significant [...] place to sleep or slept in a detention (including now)? N Transportation Needs In the past 12 months, has lack of transportation kept you from medical appointments or from getting medications? no In the past 12 months, has lack of transportation kept you from meetings, work, or from getting things needed for daily living? No Met with pt and introduced myself as field care manager with Care Transitions Team for discharge planning. Pt lives at home with and is completely independent with ADL's/iADL's + drives. Pt stated he feels safe at home. Pt denies any falls. Pt's address, phone number, and contact information was verified. Pt denies any social or financial concerns at this time. Home care: none. DME: glucometer + insulin supplies. sustainability project manager: none. PCP: Coby Sosa MD Last appt: Few months ago Transport to appts: Pt drives himself. Pharm: [facility] (denies issues affording/obtaining medications, including Transplant meds) Discharge Planning: Pt admitted for c/f acute transplant rejection after biopsy, team plan to start steroids x3 days and repeat biopsy on Monday, no home going needs anticipated at time of discharge. program coordinator will continue to follow for discharge planning needs. Kapil العلي RN Transitional Nail Sticker/TCC [id number] documented in this encounter [facility] Work Phone: 01-24-2024 Hospital Discharge instructions Mya Dawson MD - 01/24/2024 8:03 AM EDT Discharge Instructions Dear Luly Giron, You were admitted to [facility] for concern of transplant rejection after your [...] them in next few days, please call [facility] appointment line: [phone] Ayoub's team will call you to schedule lab work, likely early next week. Please call your PCP and schedule an appointment to be seen after your appointment with Dr. Ayoub as your medications may change and your insulin regimen may need to be adjusted. It was a pleasure taking care of you, Your Care Team documented in this encounter [facility] Work Phone: 01-23-2024 Note 1. Trace amount of a scites. 2. Essentially normal Doppler evaluation. 3. Non-obstructing stones right kidney MACRO: None Signed by: Татьяна Eid 01/23/2024 12:57 PM Dictation workstation: [id number] 01-23-2024 Hospital Note Formatting of t [...] ISF 1:40 along with outpatient Endocrinology referral. [facility] Work Phone: 01-23-2024 Miscellaneous Notes Luly Giron [...] Postprocedure Note Attending: Dr. Татьяна Eid MD Clinical Abstractor: Zhane Vaughan MD Diagnosis: Concern for acute [...] code (confirmed on admission) NOK: Candis (mother) [phone] Mya Dawson MD Internal Medicine, PGY-1 Senior staffing note Please see the excellent administration intern note for the comprehensive H&P. HPI [...] Ref Range Case Report Surgical Pathology Case: [id number] Authorizing Provider: Татьяна Eid MD Collected: 01/17/2024 1000 Ordering Location: [facility] Received: 01/17/[address] [place] [address] Pathologist: Kenn Diaz MD Specimen: LIVER TRANSPLANT [...] determined by the Department of Pathology at [facility]. The FDA does not require this test [...] on admission) Surrogate Medical Decision-maker: Candis (mother) [phone] documented in this encounter [facility] Work Phone: 01-23-2024 Note Formatting of this n ote is different from the original. Interventional Radiology Brief Postprocedure Note Attending: Dr. Татьяна Eid MD Clinical Abstractor: Zhane Vaughan MD Diagnosis: Concern for acute [...] or complication and is in stable condition. [facility] Work Phone: 01-21-2024 Plan of care [...] age by end of shift Outcome: Progressing [facility] 01-19-2024 Note Formatting of this n [...] code (confirmed on admission) NOK: Candis (mother) [phone] Mya Dawson MD Internal Medicine, PGY-1 [facility] Work Phone: 01-19-2024 History and physical note [...] 08/15/2017 US GUIDED NEEDLE LIVER BIOPSY 08/15/2017 [facility] US GUIDED NEEDLE LIVER BIOPSY 08/22/2017 US GUIDED NEEDLE LIVER BIOPSY 08/22/2017 [facility] US GUIDED NEEDLE LIVER BIOPSY 02/03/2023 US GUIDED NEEDLE LIVER BIOPSY 02/03/2023 [facility] Social History He reports that he [...] pantoprazole DVT ppx: pLov NOK: mother Bert [phone] Code status: full (confirmed on admission) Patti [...] the immunosuppression accordingly. Olivia Castaneda MD, FAAS, [facility] Dairy Worker, Hepatology Senior Attending Physician [facility] tester regulator Division of Gastroenterology and Liver Disease [facility] [employer] [facility] [address] [place], [place] [phone] [facility] Work Phone: 01-19-2024 History and physical note [...] 08/15/2017 US GUIDED NEEDLE LIVER BIOPSY 08/15/2017 [facility] US GUIDED NEEDLE LIVER BIOPSY 08/22/2017 US GUIDED NEEDLE LIVER BIOPSY 08/22/2017 [facility] US GUIDED NEEDLE LIVER BIOPSY 02/03/2023 US GUIDED NEEDLE LIVER BIOPSY 02/03/2023 [facility] Social History He reports that he [...] pantoprazole DVT ppx: pLov NOK: mother Candis- [phone] Code status: full (confirmed on admission) Patti [...] the immunosuppression accordingly. Olivia Castaneda MD, FAASLD, [facility] Dairy Worker, Hepatology Senior Attending Physician [facility] tester regulator Division of Gastroenterology and Liver Disease [facility] [employer] [facility] [address] [place] [phone] documented in this encounter [facility] Work Phone: 01-19-2024 Consult note Formatting of [...] Estimated Needs: Total Energy Estimated Needs (kCal): (9207-9481) Method for Estimating Needs: 30-35 kcal/kg actual [...] policy Follow up Comment: diet + ONS [facility] 01-19-2024 Consult note Formatting of th is [...] Estimated Needs: Total Energy Estimated Needs (kCal): (7268-3350) Method for Estimating Needs: 30-35 kcal/kg actual [...] Diabetes History Type 1DM :diagnosed in 04/2016 Hooker Operator : seeing pcp at [facility] per pt DM Home meds- medtronic 670G [...] 84 (H) 01/19/2024 GLUCOSE 262 (H) 01/19/2024 [id number] 0.09 (H) 08/18/2017 Diabetes Problem List Entries [...] Diabetes History Type 1DM :diagnosed in 04/2016 Hooker Operator : seeing pcp at [facility] per pt DM Home meds- medtronic 670G [...] follow up- He can follow up in [facility] with PCP Monserrat Estrada MD Endocrinology, PGY 5 Pager [phone] or secure chat Associated attestation - Quentin [...] in the note. documented in this encounter [facility] Work Phone: 01-19-2024 Consult note Associated Order [...] Diabetes History Type 1DM :diagnosed in 04/2016 Hooker Operator : seeing pcp at [facility] per pt DM Home meds- medtronic 670G [...] 84 (H) 01/19/2024 GLUCOSE 262 (H) 01/19/2024 [id number] 0.09 (H) 08/18/2017 Diabetes Problem List Entries [...] Diabetes History Type 1DM :diagnosed in 04/2016 Hooker Operator : seeing pcp at [facility] per pt DM Home meds- medtronic 670G [...] follow up- He can follow up in [facility] with PCP Monserrat Estrada MD Endocrinology, PGY 5 Pager [phone] or secure chat Associated attestation - Quentin [...] decision making as documented in the note. [facility] Work Phone: 01-18-2024 Note Formatting of this n ote is different from the original. Senior staffing note Please see the excellent administration intern note for the comprehensive H&P. HPI [...] Ref Range Case Report Surgical Pathology Case: [id number] Authorizing Provider: Татьяна Eid MD Collected: 01/17/2024 1000 Ordering Location: [facility] Received: 01/17/2024 [facility] Pathologist: Kenn Diaz MD Specimen: [...] is submitted in toto in 1 cassette. [facility] Disclaimer One or more of the reagents used to perform assays on this specimen MAY have contained components considered to be analyte specific reagents (ASR's). ASR's have not been cleared or approved by the U.S. Food and Drug Administration. These assays were developed and their performance characteristics determined by the Department of Pathology at [facility]. The FDA does not require this test [...] on admission) Surrogate Medical Decision-maker: Candis (mother) [phone] [facility] Work Phone: 01-17-2024 Miscellaneous Notes Interventional Radiology Brief Postprocedure Note Attending: Dr. Татьяна Eid MD Clinical Abstractor: Zhane Vaughan MD Diagnosis: Liver transplant Description [...] the entire procedure documented in this encounter [facility] Work Phone: 01-17-2024 Note Formatting of this n ote is different from the original. Interventional Radiology Brief Postprocedure Note Attending: Dr. Татьяна Eid MD Clinical Abstractor: Zhane Vaughan MD Diagnosis: Liver transplant Description [...] I was present for the entire procedure [facility] Work Phone: 12-19-2023 Hospital Discharge instructions Latasha [...] questions related to your procedure: Please call [phone] between the hours of 7:00am-5:00pm Monday through Monday. Please call [phone] after 5:00pm and on weekends and holidays. In the event of an emergency call 911 or go to your nearest emergency room. documented in this encounter [facility] Work Phone: 12-19-2023 Miscellaneous Notes Interventional Radiology Post-Procedure Note US guided percutaneous liver transplant biopsy. Indication for procedure: Diagnoses of Liver replaced by transplant (CMS/HCC) and Elevated LFTs were pertinent to this visit. Pre-Procedure Verification and Time Out: [facility] Pre-procedure Verification completed TIME [...] Procedure performed by: Dr. Татьяна Eid MD Clinical Abstractor(s): Doyle Cavazos MD Estimated Blood Loss (mL): [...] procedure Doyle Cavazos, PGY-3 Diagnostic Radiology NON-Urgent ui application developer weekends and after hours weekdays (5pm - 5am) IR pager: [phone] Urgent & emergent ui application developer weekends and after hours weekdays (5pm-7am) IR pager: [phone] INTERVENTIONAL RADIOLOGY PRE-PROCEDURE NOTE Luly Giron is [...] 08/15/2017 US GUIDED NEEDLE LIVER BIOPSY 08/15/2017 [facility] US GUIDED NEEDLE LIVER BIOPSY 08/22/2017 US GUIDED NEEDLE LIVER BIOPSY 08/22/2017 [facility] US GUIDED NEEDLE LIVER BIOPSY 02/03/2023 US GUIDED NEEDLE LIVER BIOPSY 02/03/2023 [facility] US Relevant Labs: Lab Results Component Value [...] been discussed with the patient and/or their sales training representative. All questions answered and they agree to proceed. Doyle Cavazos, PGY-3 Diagnostic Radiology NON-Urgent ui application developer weekends and after hours weekdays (5pm - 5am) IR pager: [phone] Urgent & emergent ui application developer weekends and after hours weekdays (5pm-7am) IR pager: [phone] documented in this encounter [facility] Work Phone: 12-19-2023 Note Formatting of this [...] Procedure performed by: Dr. Татьяна Eid MD Clinical Abstractor(s): Doyle Cavazos MD Estimated Blood Loss (mL): [...] procedure Doyle Cavazos, PGY-3 Diagnostic Radiology NON-Urgent ui application developer weekends and after hours weekdays (5pm - 5am) IR pager: [phone] Urgent & emergent ui application developer weekends and after hours weekdays (5pm-7am) IR pager: [phone] [facility] Work Phone: 12-19-2023 Note Formatting of this [...] 08/15/2017 US GUIDED NEEDLE LIVER BIOPSY 08/15/2017 [facility] US GUIDED NEEDLE LIVER BIOPSY 08/22/2017 US GUIDED NEEDLE LIVER BIOPSY 08/22/2017 [facility] US GUIDED NEEDLE LIVER BIOPSY 02/03/2023 US GUIDED NEEDLE LIVER BIOPSY 02/03/2023 [facility] US Relevant Labs: Lab Results Component Value [...] been discussed with the patient and/or their sales training representative. All questions answered and they agree to proceed. Doyle Cavazos, PGY-3 Diagnostic Radiology NON-Urgent ui application developer weekends and after hours weekdays (5pm - 5am) IR pager: [phone] Urgent & emergent ui application developer weekends and after hours weekdays (5pm-7am) IR pager: [phone] [facility] Work Phone: 12-19-2023 Note Formatting of [...] Procedure performed by: Dr. Татьяна Eid MD Clinical Abstractor(s): Doyle Cavazos MD Estimated Blood Loss (mL): [...] procedure Doyle Cavazos, PGY-3 Diagnostic Radiology NON-Urgent ui application developer weekends and after hours weekdays (5pm - 5am) IR pager: [phone] Urgent & emergent ui application developer weekends and after hours weekdays (5pm-7am) IR pager: [phone] [facility] Work Phone: 12-19-2023 Note Formatting of this [...] 08/15/2017 US GUIDED NEEDLE LIVER BIOPSY 08/15/2017 [facility] US GUIDED NEEDLE LIVER BIOPSY 08/22/2017 US GUIDED NEEDLE LIVER BIOPSY 08/22/2017 [facility] US GUIDED NEEDLE LIVER BIOPSY 02/03/2023 US GUIDED NEEDLE LIVER BIOPSY 02/03/2023 [facility] US Relevant Labs: Lab Results Component Value [...] been discussed with the patient and/or their sales training representative. All questions answered and they agree to proceed. Doyle Cavazos, PGY-3 Diagnostic Radiology NON-Urgent ui application developer weekends and after hours weekdays (5pm - 5am) IR pager: [phone] Urgent & emergent ui application developer weekends and after hours weekdays (5pm-7am) IR pager: [phone] [facility] Work Phone: 10-30-2023 Evaluation note Encounter Date [...] results. Chose cefdinir as that is safer. [employer] Other 01-08-2024 Evaluation note* Encounter Date Diagnosis [...] - Z94.4) Continue followup w transplant clinic. [employer] Other 11-02-2023 History of Present illness Narrative* [...] agree with the findings as stated by residential program worker Ramya Steward MD. This study was interpreted at [place], [place]. Lab Results Component Value Date ALT 69 07/18/2023 AST 53 07/18/2023 GGT 71 (H) 04/11/2018 ALKPHOS 180 07/18/2023 BILITOT 1.2 07/18/2023 Liver replaced by transplant (CMS/HCC) The patient will decrease tacrolimus to 1 bid Labs will continue to be ordered every 6 months We recommended annual dermatological examination We will see the patient in follow up in 6 months [facility]: 1(452) 996-190211-02-2023 Instructions* Patient Instructions* Nae Campos RN - 08/03/2023 10:00 AM EDT Lower tacrolimus to 1mg twice daily and repeat labs in 2 weeks. [facility] Work [facility]: 1(943) 476-104111-02-2023 Evaluation + Plan note* Assessment & Plan Note - Sharan Ayoub MD - 08/03/2023 9:52 AM EDTAssociated Problem(s): Liver replaced by transplant (CMS/HCC) The patient will decrease tacrolimus to 1 bid Labs will continue to be ordered every 6 months We recommended annual dermatological examination We will see the patient in follow up in 6 months [facility] Work Phone: 1(549) 464-414411-02-2023 Miscellaneous Notes* Assessment & Plan Note - Sharan Ayoub MD - 08/03/2023 9:52 AM EDTAssociated Problem(s): Liver replaced by transplant (CMS/HCC) The patient will decrease tacrolimus to 1 bid Labs will continue to be ordered every 6 months We recommended annual dermatological examination We will see the patient in follow up in 6 months [facility] Work [facility]: 1(364) 150-845607-03-2023 Evaluation note* Encounter Date Diagnosis Assessment Notes Treatment Notes Treatment Clinical Notes Apr, Irritable bowel syndrome with diarrhea (ICD-10 - K58.0) Discussed if needed, see his GI in [place] as he has an entire transplant team there. In meantime, stay hydrated, has appt in [place] next week Apr, Liver transplant recipient (ICD-10 - Z94.4) Updated on present issues. Pt understands which OTC meds to avoid to protect his liver. [employer] Other 05-05-2023 NotePre-procedure Verification and Time Out: Pre-Procedure Verification and Time Out: Procedure Locationprocedure area [facility] - Pre-procedure Verificationcompleted TIME OUT - Final Verificationcompleted immediately prior to procedure start DEBRIEFcompleted General Information: Anesthesia Critical Care: Non-Anesthesia Date/Time of Procedure: 03-Feb-2023 08:20 Post-Procedure Diagnosis: s/p hepatic transplant Procedure Name: biopsy, liver Findings: grossly normal anatomy Procedure performed by: me Clinical Abstractor(s): stephania Estimated Blood Loss (mL): none Specimen: [...] Completion Last Updated: 07-Feb-2023 09:02 by Татьяна Eid)[facility] 12-22-2022 Evaluation note* Encounter Date Diagnosis Assessment [...] elevates his glucose so will avoid augmentin. [employer] Other 05-05-2022 History of Present illness Narrative* PCP: Dr. Coby Sosa (tel: [phone]; fax: [phone]) * Mr. Luly Giron is a 26 [...] History: * Modifying Factors: * Associated Symptoms: EV-Fpmuyedghc-HFF [place] [address] Work Phone: 1(269) 879-723110-07-2021 History of Present illness Narrative* PCP: Dr. Coby Locke (tel: [phone]; fax: [phone]) * Mr. Luly Giron is a 26 [...] History: * Modifying Factors: * Associated Symptoms: CF-Wuguizejtz-OPS [address] Work Phone: 1(941) 344-568407-08-2016 History of Present illness Narrative* PCP: Dr. Coby Sosa (tel: [phone]; fax: [phone]) * Mr. Luly Giron is a 26 [...] History: * Modifying Factors: * Associated Symptoms: JK-Puabfargsnanducq-Dqglfdfw [address] [facility] Work Phone: 1([phone]) 345-380607-01-2016 History of Present illness Narrative* 28-year-old male [...] or bumps in neck axilla and groin. RV-Xoeescoiqr-Ppliwn [address] DO Work Phone: Evaluation noteNo assessment information [facility] Work Phone: Evaluation note* Diagnosis Liver replaced by transplant (CMS/HCC) Liver replaced by transplant documented in this encounter [facility] Work Phone: [phone] note* Diagnosis Liver transplant status (CMS/HCC) Other specified abnormal findings of blood chemistry Type 2 diabetes mellitus without complications (CMS/HCC) Immunodeficiency, unspecified (CMS/HCC) Anxiety disorder, unspecified Thyrotoxicosis, unspecified without thyrotoxic crisis or storm documented in this encounter [facility] Work Phone: [phone] noteNo InformationNort [employer] Other Evaluation note* Diagnosis Liver replaced by transplant (CMS/HCC) Liver replaced by transplant Elevated LFTs Other abnormal blood chemistry Liver replaced by transplant (CMS/HCC)- Primary Liver replaced by transplant documented in this encounter [facility] Work Phone: [phone] note* Diagnosis Elevated LFTs Other abnormal blood chemistry Liver replaced by transplant (CMS/HCC) Liver replaced by transplant Complications, organ transplant Complications of transplanted organ, unspecified site Liver replaced by transplant (CMS/HCC)- Primary Liver replaced by transplant documented in this encounter [facility] Work Phone: [phone] note* Diagnosis 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) Liver replaced by transplant Elevated LFTs Other abnormal blood chemistry 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)- Primary Liver replaced by transplant documented in this encounter [facility] Work Phone: [phone] note* Diagnosis Acute rejection of liver transplant [...] replaced by transplant documented in this encounter [facility] Work Phone: [phone] note* Diagnosis 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)- Primary Liver replaced by transplant documented in this encounter [facility] Work Phone: Evaluation note* Diagnosis Onset Date Resolution Status Depression acute Liver replaced by transplant acute [facility] Work Phone: Evaluation note* Diagnosis Onset Date Resolution Status Depression acute Liver replaced by transplant acute Depression acute Shingles acute [facility] Work Phone: History general Narrative - [...] History Lithotripsy 09/2020 Hospitalization History See above [employer] Other History of Present illness Narrative* The [...] History: * Modifying Factors: * Associated Symptoms: XB-Orfgnmwipfrauzvy-Chjlnmqr [facility] Work Phone: History of Present illness [...] * Mouth/Throat/Teeth: there are no oral symptoms. [facility] Work Phone: Instructions* Name Dates Details Instructions not documented [facility] Work Phone: Reason for referral (narrative)* Consultation (Routine) - Authorized Specialty Diagnoses / Procedures Referred By Contac t Referred To Contact Endocrinology Diagnoses Type 1 diabetes mellitus with hyperglycemia (Multi) [place] [address] [facility] [place] [address] Referral ID Status Reason Start Date Expiration Date Visits Requested Visits Authorized [id number] Authorized Specialty Services Required 01/24/2024 01/23/2025 1 1 Scheduling Instructions Thursday 02/01 would be best date as he has appointment scheduled for 01/31 with his assistance coordinator and may have steroid regimen changed at that time [facility] Work Phone: Family History No Family History [...] FoundDocuments on File Type Date Recorded Patient Certified Hyperbaric Technician Expl anation Healthcare Power of [facility] 04/25/2016 Date Activated Date Inactivated Comments 01/18/2024 8:32 PM Question Answer Comments Plan of Care: Code Status Discussion Completed Decision Maker: Patient Advance Directive Response Recorded Date/ Time Advance Directives No July 07, 2017 12:16pm Advance Directive Response Recorded Date/ Time Advance Directives No July 07, 2017 1:16pm Documents on File Type Date Recorded Patient Certified Hyperbaric Technician Expl anation Healthcare Power of [facility] 04/25/2016 Documents on File Type Date Recorded Patient Certified Hyperbaric Technician Expl anation Advance Directives and Living Will 12/02/2016 Healthcare Power of [facility] 04/25/2016 Date Activated Date Inactivated Comments 01/18/2024 [...] Specialty Diagnoses / Procedures Referred By Carrie avila Referred To Contact Radiology Diagnoses Elevated LFTs Liver replaced by transplant (CMS/HCC) Complications, organ transplant Procedures [place] [address] [address] [facility] [address] Referral ID Status Reason Start Date Expiration Date Visits Requested Visits Authorized [id number] Authorized Perform Procedure 01/03/2024 01/02/2025 1 1 Specialty Diagnoses / Procedures Referred By Contac t Referred To Contact Radiology Diagnoses Liver replaced by transplant (CMS/HCC) Elevated LFTs Procedures US guided [place] [address] [address] Department of Medicine-[place] [address] Referral ID Status Reason Start Date Expiration Date Visits Requested Visits Authorized [id number] Authorized Perform Procedure 12/05/2023 12/04/2024 1 1 Additional Source Comments (unrecognized sect ion and content) No Status Records FoundNo Status Records FoundNo Status Records FoundNo Status Records FoundNo Status Records FoundNo Status Records FoundNo Status Records FoundNo Status Records Found INFORMATION SOURCE (unrecogn ized section and content) DATE CREATED AUTHOR 01/22/2021 [facility] DATE CREATED AUTHOR AUTHOR'S ORGANIZ ATION 10/28/2022 [facility] DATE CREATED AUTHOR AUTHOR'S ORGANIZ ATION 05/09/2023 [facility] DATE CREATED AUTHOR AUTHOR'S ORGANIZ ATION 06/11/2023 [facility] DATE CREATED AUTHOR AUTHOR'S ORGANIZ ATION 05/29/2024 [facility] DATE CREATED AUTHOR AUTHOR'S ORGANIZ ATION 06/07/2024 [facility] DATE CREATED AUTHOR AUTHOR'S ORGANIZ ATION 07/03/2024 [facility] DATE CREATED AUTHOR AUTHOR'S ORGANIZ ATION 07/11/2024 [facility] Care Teams (unrecognized sec tion [...] Active Leighton Reilly MD Other Provider Active Senior Project Controls Specialist Relationship Specialty Start Date End Date Coby Sosa MD [address] [place], [place] [id number] PCP - General 05/19/16 Nae Campos RN Mucking Machine Operator Transplant 07/07/23 Senior Project Controls Specialist Relationship Specialty Start Date End Date Coby [...] October 26, 2023 End: October 26, 2023 Senior Project Controls Specialist Relationship Specialty Start Date End Date Coby Sosa MD PCP - General 05/19/16 Nae Campos, tobacco prevention health educatorMucking Machine Operator Transplant 07/07/23 Team Status: Inactive Member Role [...] Team Status: Inactive Member Role Status Dates Coyb Sosa MD Primary Care Provider Active Start: January 04, 2024 End: January 04, 2024 Sharan Ayoub MD Attending Provider Active Sta rt: January 04, 2024 End: January 04, 2024 Senior Project Controls Specialist Relationship Specialty Start Date End Date Coby Sosa MD PCP - General 05/19/16 Nae Campos, tobacco prevention health educatorMucking Machine Operator Transplant 07/07/23 Senior Project Controls Specialist Relationship Specialty Start Date End Date Coby Sosa MD PCP - General 05/19/16 Nae Campos, tobacco prevention health educatorMucking Machine Operator Transplant 07/07/23 Senior Project Controls Specialist Relationship Specialty Start Date End Date Coby Sosa MD [address] [place], [place] [address] [address] PCP - General 05/19/16 Nae Campos, tobacco prevention health educatorMucking Machine Operator Transplant 07/07/23 Team Status: Inactive Member Role Status Dates Coby Sosa MD Primary Care Provider Active Start: January 30, 2024 End: January 30, 2024 Sharan Ayoub MD Attending Provider Active Sta rt: January 30, 2024 End: January 30, 2024 Senior Project Controls Specialist Relationship Specialty Start Date End Date [place] [address] PCP - General 05/19/16 Nae Campos, tobacco prevention health educatorMucking Machine Operator Transplant 07/07/23 Team Status: Inactive Member Role [...] guided [place] [address] [address] [facility] [place] [address] Referral ID Status Reason Start Date Expiration Date Visits Requested Visits Authorized [id number] Authorized Perform Procedure 12/05/2023 12/04/2024 1 1 Specialty Diagnoses / Procedures Referred By Contac t Referred To Contact Radiology Diagnoses Elevated LFTs Liver replaced by transplant (CMS/HCC) Complications, organ transplant Procedures US liver with doppler Sharan Ayoub MD [facility] [address] [facility] [place] [address] Referral ID Status Reason Start Date Expiration Date Visits Requested Visits Authorized [id number] Authorized Perform Procedure 01/03/2024 01/02/2025 1 1 Specialty Diagnoses / Procedures Referred By Contac t Referred To Contact Radiology Diagnoses 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) Elevated LFTs Procedures US guided needle liver biopsy Sharan Ayoub MD [address] [place], [place] [address] [facility] [place] [address] Referral ID Status Reason Start Date Expiration Date Visits Requested Visits Authorized [id number] Authorized Perform Procedure 01/11/2024 01/10/2025 1 1 Specialty Diagnoses / Procedures Referred By Contac t Referred To Contact Diagnoses 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 Procedures No coded services entered Post, Yung Peterson MD [address] [place], [place] [address] [facility] [place] [id number] [facility] [address] [facility] [place] [address] Referral ID Status Reason Start Date Expiration Date Visits Re quested Visits Authorized [id number] 1 1 Scheduled Active and Recently Administ [...] Burden RN)1122 (Held by provider - Provider: Mya Dawson MD - Reason: Other) 0900 (Dose [...] at 2200, For 28 days, Insulin 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: [employer], Using as Automated Delivery System: Yes, Insulin [...] Time and Target Levels: 9:33 PM / [phone] (Self Administered Via Pump - Provider: Comfort [...] RN) 1217 (Given - Provider: Ninoska Burden RN)7019 (Due) PRN Medication Order 01/22/2024 01/23/2024 01/24/2024 [...] 0841 (Given - Provider: Trudi Saleem RN) fentaNYL PF (Sublimaze) injection (COMPLETED) [...] BE BASED ON THE PRIMARY CLINICAL RECORDS. [facility] [employer] [facility]. provides no warranty or guarantee of the accuracy or completeness of information in this document.
[2024-07-15] MEDS: PREDNISONE 10 MG TABLET 20 MG PO (01:53)
[2024-07-15] MEDS: VENLAFAXINE HCL ER 37.5 MG CAPSULE 75 MG PO ×2 (01:53→23:30)
[2024-07-15] MEDS: TEMAZEPAM 15 MG CAPSULE PO (01:53)
[2024-07-15] MEDS: 0.9 % SODIUM CHLORIDE 1,000 ML 100 ML IV (01:53)
[2024-07-15 06:47] LABS: Lactate/Lactic Acid 2.1 mmol/L (0.4-2.0)
[2024-07-15 07:32] LABS: Basophils Percent Auto 0.1 % (0.2-2.0); Hematocrit 40.3 % (42.0-54.0); Hemoglobin 13.4 g/dL (14.0-18.0); Immature Granulocytes Abs Auto 0.06 10^3/uL (0.00-0.03); Immature Granulocytes Pct Auto 0.6 % (0.0-0.5); Lymphocytes Absolute Auto 0.9 10^3/uL (1.2-3.8); Lymphocytes Percent Auto 7.9 % (20.5-60.0); Mean Corpuscular HGB Conc 33.3 g/dL (29.9-35.2); Mean Corpuscular Hemoglobin 30.9 pg (25.9-34.0); Mean Corpuscular Volume 92.9 fL (80.0-94.0); Mean Platelet Volume 12.2 fL (9.5-13.5); Monocytes Absolute Auto 0.1 10^3/uL (0.3-0.8); Monocytes Percent Auto 0.7 % (1.7-12.0); Neutrophils Absolute Auto 9.8 10^3/uL (1.4-6.5); Neutrophils Percent Auto 90.7 % (43.0-75.0); Platelet Count 121 10^3/uL (150-450); Red Blood Count 4.34 10^6/uL (4.70-6.10); Red Cell Distribution Width 13.8 % (11.0-15.0); White Blood Count 10.8 10^3/uL (4.0-11.0)
[2024-07-15 07:42] LABS: Glucometer 319 mg/dL (74-106)
[2024-07-15 08:04] LABS: Alanine Aminotransferase 93 U/L (16-63); Albumin Globulin Ratio 0.6; Albumin Level 2.1 g/dL (3.4-5.0); Alkaline Phosphatase 277 U/L (46-116); Anion Gap 12.2; Aspartate Amino Transferase 70 U/L (15-37); BUN Creatinine Ratio 21.2; Bilirubin Total 3.2 mg/dL (0.2-1.0); Carbon Dioxide 25.6 mmol/L (21.0-32.0); Chloride 102 mmol/L (98-107); Estimated GFR (African America >60 (>=60 mL/min/1.73m^2); Estimated GFR (Non-African Ame >60 (>=60 mL/min/1.73m^2); Globulin 3.7 g/dL; Glucose 361 mg/dL (74-106); Magnesium 1.6 mg/dL (1.8-2.4); Potassium 4.8 mmol/L (3.5-5.1); Sodium 135 mmol/L (136-145); Total Protein 5.8 g/dL (6.4-8.2)
[2024-07-15] MEDS: INSULIN ASPART 300 UNIT/3 ML PEN SUBQ ×2 (08:43→10:45)
--- NOTE | 2024-07-15 09:25 | CM.NOTE ---
Rounds made with Dr. Gonzalez, pt states his insulin pump is functioning he thinks the insulin was not good. Dr. Gonzalez discusses with pt about having someone bring in insulin to make sure insulin pump is functioning appropriately prior to discharge. Pt will call family to bring in insulin.
--- NOTE | 2024-07-15 09:26 | P.HP_ITS ---
HPI H&P: HPI History of Present Illness Chief complaint: Hyperglycemia Narrative: Presented the emergency room with some fatigue and mild nausea and significantly elevated sugars. Over 700. At home recently did change his insulin. He thinks the insulin was outdated as it was left out of the refrigerator. Time sugars have been creasingly elevated. Denies any significant change in his diet. Denies illness such as bronchitis or UTI or gastroenteritis. Opioid HPI Opioid Management Most Recent Pain and Opioid Data: Last Pain Scale 8 05/08/24 21:37 05/08/24 Last Pain Assessment 07/15/24 12:06 Last ORT Total Score 1 07/15/24 00:05 07/15/24 Last ORT Risk Category Low Risk 07/15/24 00:05 07/15/24 Review of Systems ROS Status of ROS 10 or more systems reviewed and unremark able except as noted in history and below [facility] Medical History (Updated 07/14/24 @ 23:25 by Phil Agudelo MD) Hypertension ?I10 - Essential (primary) hypertension (ICD-10) Diabetes ?E11.9 - Type 2 diabetes mellitus without complications (ICD-10) Surgical History (Updated 05/08/24 @ 20:51 by Holli Amato) Liver transplant recipient ?Z94.4 - Liver transplant status (ICD-10) Family History (Updated 07/15/24 @ 00:09 by Katt Tarango) Other Family history of COPD (chronic obstructive pulmonary disease) Family history of diabetes mellitus Family history of hypertension Family history of myocardial infarction Family history of stroke Social History (Updated 07/15/24 @ 00:09 by Katt Tarango) Within the past year, how often did you have a drink containing alcohol: never Within the past year, how often did you have six or more drinks on one occasion: never Score interpretation: A score less than 4 is consistent with normal alcohol consumption. Smoking status: Never smoker Non-prescribed substance use: denies use Highest level of school completed/degree received: high school graduate In a typical week, how many times do you talk on the telephone with family, friends, or neighbors: 3 or more times per week How often do you get together with friends or relatives: 3 or more times per week Little interest or pleasure in doing things: not at all Feeling down, depressed, or hopeless: several days Feel stressed/tense/nervous/anxious/difficulty sleeping: not at all Do you think of yourself as: straight/heterosexual Gender Identity: male Meds Home Medications and Allergies Home Medications ?Medication ?Instructions ?Recorded ?Confirmed ?Type amlodipine 5 mg tablet 5 mg PO DAILY 05/21/23 07/14/24 History aspirin 81 mg tablet,delayed 81 mg PO DAILY 05/21/23 07/14/24 History release (Adult Low Dose Aspirin) insulin lispro 100 unit/mL 1 sliding scale dose continuous 05/21/23 07/15/24 History subcutaneous solution subcutaneous infusion PRN insulin pump magnesium oxide 400 mg (241.3 mg 400 mg PO BID 05/21/23 07/14/24 History magnesium) tablet mycophenolate mofetil 250 mg 250 mg PO Q12H 05/21/23 07/14/24 History capsule tacrolimus 1 mg capsule, 1 mg PO Q12H 05/21/23 07/14/24 History immediate-release prednisone 10 mg tablet 20 mg PO QDAY 07/14/24 07/14/24 History venlafaxine 37.5 mg 75 mg PO QDAY 07/14/24 07/14/24 History capsule,extended release 24 hr pantoprazole 40 mg tablet,delayed 40 mg PO .qd 07/15/24 07/15/24 History release Allergies Allergy/AdvReac Type Severity Reaction Status Date / Time red (food color) AdvReac Intermediate Swelling Verified 07/14/24 19:27 of Lip/Tongue/Throat Exam Constitutional Vital Signs, click to edit/add: Last Vital Signs Temp 97.7 F 07/15/24 04:49 Pulse 80 07/15/24 04:49 Resp 18 07/15/24 04:49 BP 124/74 07/15/24 04:49 Pulse Ox 94 L 07/15/24 04:49 O2 Del Method Room Air 07/15/24 04:49 Documenting provider has reviewed patient's vital signs: yes Common normals: no apparent distress Chest Common normals: inspection of chest normal Respiratory Common normals: normal respiratory effort and no retractions Cardio Common normals: regular rate and regular rhythm GI Common normals: Normal to inspection, nondistended, normoactive bowel sounds present Extremity Common normals: normal to inspection and full ROM Results Labs Labs: Short CBC 07/14/24 07/15/24 Range/Units 19:40 06:46 WBC 9.8 10.8 (4.0-11.0) 10^3/uL Hgb 14.6 13.4 L (14.0-18.0) g/dL Hct 43.9 40.3 L (42.0-54.0) % Plt Count 164 121 L (150-450) 10^3/uL BMP 07/14/24 07/15/24 19:40 06:46 Sodium 130 L 135 L Potassium 4.9 4.8 Chloride 94 L 102 Carbon Dioxide 25.4 25.6 BUN 31.0 H 21.0 H Creatinine 1.53 H 0.99 Glucose 724 H* 361 H Calcium 9.3 8.0 L Liver Function 07/14/24 07/15/24 Range/Units 19:40 06:46 Total Bilirubin 4.3 H 3.2 H (0.2-1.0) mg/dL Direct Bilirubin 3.5 H* (0.0-0.2) mg/dL AST 82 H 70 H (15-37) U/L ALT 112 H 93 H (16-63) U/L Alkaline Phosphatase 330 H 277 H (46-116) U/L Albumin 2.6 L 2.1 L (3.4-5.0) g/dL Urine 07/14/24 Range/Units 19:40 Urine Color Lt. yellow (YELLOW) Urine Clarity Clear (CLEAR) Urine pH 5.5 (5.0-9.0) Ur Specific [place] <=1.005 A (1.005-1.025) Urine Protein Negative (NEG/TRACE) mg/dL Urine Glucose (UA) >=1000 A (NEGATIVE) mg/dL ABG ABG results: 07/14/24 23:40 VBG pH 7.378 VBG pCO2 43.0 Assessment and Plan Assessment and Plan (1) Hyperglycemia: (2) Hyperglycemia due to type 1 diabetes mellitus: (3) Vomiting: (4) Hypertension: (5) Liver transplant recipient: Plan Admission findings: Patient presented to the emergency room with some mild nausea and fatigue, found that was sugar over 700. He was admitted overnight. Workup for DKA was negative. Normal pH. He did test positive for lactic acidosis however. Lactic acidosis secondary to severe hyperglycemia secondary to either malfunctio n of the device itself or improper insulin and his insulin pump. The plan for today is to keep with hydration with IV fluids. Advance his diet to see if he tolerates that and the nausea stays resolved and have him change his insulin in his pump. Patient does state he has a visit with his addictions counselor later today. If he remains stable by early afternoon he can be discharged to home and immediate follow-up with his addictions counselor Hypertension by history-continue with medications Liver transplant-liver test are elevated including direct bilirubin. This is likely secondary to his liver transplantation. He follows up with transplant team per protocol. Currently having no abdominal pain. Moderate protein calorie malnutrition-diet management Hematuria-monitor as an outpatient, follow-up with PCP Hyponatremia secondary to the severe hyperglycemia-monitor daily Thrombocytopenia-down somewhat from his baseline. Continue to monitor. Hypomagnesemia-supplement GERD-continue with home medications Depression-continue with home medications Admission status: Patient placed in observation, it was presumed a medically necessary treatment would only span 1 midnight. He is improving currently. Will maintain observational status. If condition deteriorates and requires further admission we will change to inpatient status at that time
--- NOTE | 2024-07-15 09:27 | P.DS_ITS ---
DS: Providers Provider Date of admission: 07/15/24 00:04 Primary care physician: Camille Avila MD Consults: 07/15/24 06:09 Consult to Pharmacy Routine Consulting Provider: Reason for consultation: Please Pollock me when Med Rec is Updated Has provider been notified: No DS: Diagnosis Discharge Diagnosis (1) Hyperglycemia: (2) Hypertension: (3) Diabetes: (4) Liver transplant recipient: (5) Vomiting: (6) Hyperglycemia due to type 1 diabetes mellitus: DS: Summary Hospital Course Hospital Course: Patient after malfunction of his insulin pump protocol, severe hyperglycemia and nausea. Dehydration. Given IV fluids overnight. The plan currently is if he i mproves later today and it appears that the pump is working adequately he can be discharged to home and to see his business transformation consultant today. Medications see list. Follow-up with PCP at discharge. Status at Discharge Overall status at discharge: patient is not back to baseline Time Spent with Patient Time attestation: Total time spent providing and/or coordinating discharge services: Time spent: greater than 30 minutes Exam Constitutional Vital Signs, click to edit/add: Last Vital Signs Temp 97.7 F 07/15/24 04:49 Pulse 80 07/15/24 04:49 Resp 18 07/15/24 04:49 BP 124/74 07/15/24 04:49 Pulse Ox 94 L 07/15/24 04:49 O2 Del Method Room Air 07/15/24 04:49 Documenting provider has reviewed patient's vital signs: yes Common normals: no apparent distress Chest Common normals: inspection of chest normal Respiratory Common normals: normal respiratory effort and no retractions Cardio Common normals: regular rate and regular rhythm GI Common normals: Normal to inspection, nondistended, normoactive bowel sounds present Extremity Common normals: normal to inspection and full ROM DS: Data Data Completed and Pending Labs on day of discharge: Labs from last 24 hours 07/15/24 07/15/24 07/14/24 07:41 06:46 23:40 WBC 10.8 RBC 4.34 L Hgb 13.4 L Hct 40.3 L MCV 92.9 MCH 30.9 MCHC 33.3 RDW 13.8 Plt Count 121 L MPV 12.2 Neut % (Auto) 90.7 H Lymph % (Auto) 7.9 L [place] % (Auto) 0.7 L Eos % (Auto) 0.0 L Baso % (Auto) 0.1 L Neut # (Auto) 9.8 H Lymph # (Auto) 0.9 L [place] # (Auto) 0.1 L Eos # (Auto) 0.0 Baso # (Auto) 0.0 Abs Immat Gran (auto) 0.06 H Imm/Tot Granulo (auto) 0.6 H VBG pH 7.378 VBG pCO2 43.0 Sodium 135 L Potassium 4.8 Chloride 102 Carbon Dioxide 25.6 Anion Gap 12.2 BUN 21.0 H Creatinine 0.99 Est GFR ( Amer) >60 Est GFR (Non-Af Amer) >60 BUN/Creatinine Ratio 21.2 Glucose 361 H Lactate Calcium 8.0 L Magnesium 1.6 L Total Bilirubin 3.2 H Direct Bilirubin AST 70 H ALT 93 H Alkaline Phosphatase 277 H Total Protein 5.8 L Albumin 2.1 L Globulin 3.7 Albumin/Globulin Ratio 0.6 Urine Color Urine Clarity Urine pH Ur Specific [place] Urine Protein Urine Glucose (UA) Urine Ketones Urine Occult Blood Urine Nitrite Urine Bilirubin Urine Urobilinogen Ur Leukocyte Esterase Urine RBC Urine WBC Ur Squamous Epith Cells Urine Crystals Urine Bacteria Urine Casts Urine Mucus Acetone, Qual POC Glucose 319 H 07/14/24 07/14/24 07/14/24 23:04 21:32 19:40 WBC 9.8 RBC 4.66 L Hgb 14.6 Hct 43.9 MCV 94.2 H MCH 31.3 MCHC 33.3 RDW 13.6 Plt Count 164 MPV 12.5 Neut % (Auto) 89.9 H Lymph % (Auto) 8.2 L [place] % (Auto) 1.2 L Eos % (Auto) 0.0 L Baso % (Auto) 0.2 Neut # (Auto) 8.8 H Lymph # (Auto) 0.8 L [place] # (Auto) 0.1 L Eos # (Auto) 0.0 Baso # (Auto) 0.0 Abs Immat Gran (auto) 0.05 H Imm/Tot Granulo (auto) 0.5 VBG pH VBG pCO2 Sodium 130 L Potassium 4.9 Chloride 94 L Carbon Dioxide 25.4 Anion Gap 15.5 BUN 31.0 H Creatinine 1.53 H Est GFR ( Amer) >60 Est GFR (Non-Af Amer) 53 L BUN/Creatinine Ratio 20.3 Glucose 724 H* Lactate 2.1 H Calcium 9.3 Magnesium Total Bilirubin 4.3 H Direct Bilirubin 3.5 H* AST 82 H ALT 112 H Alkaline Phosphatase 330 H Total Protein 6.9 Albumin 2.6 L Globulin 4.3 Albumin/Globulin Ratio 0.6 Urine Color Lt. yellow Urine Clarity Clear Urine pH 5.5 Ur Specific [place] <=1.005 A Urine Protein Negative Urine Glucose (UA) >=1000 A Urine Ketones 15 A Urine Occult Blood Moderate A Urine Nitrite Negative Urine Bilirubin Negative Urine Urobilinogen 1.0 Ur Leukocyte Esterase Negative Urine RBC 10-20 A Urine WBC None seen Ur Squamous Epith Cells None seen Urine Crystals None seen Urine Bacteria Trace A Urine Casts None seen Urine Mucus None seen Acetone, Qual Negative POC Glucose 523 H* 408 H Discharge Plan Discharge Disposition: Home Health Service Condition: Fair Discharge Medications: Continued prednisone 10 mg tablet 20 mg PO QDAY venlafaxine 37.5 mg capsule,extended release 24hr 75 mg PO QDAY pantoprazole 40 mg tablet,delayed release (DR/EC) 40 mg PO .qd amlodipine 5 mg tablet 5 mg PO DAILY magnesium oxide 400 mg (241.3 mg magnesium) tablet 400 mg PO BID mycophenolate mofetil 250 mg capsule 250 mg PO Q12H tacrolimus 1 mg capsule 1 mg PO Q12H aspirin [Adult Low Dose Aspirin] 81 mg tablet,delayed release (DR/EC) 81 mg PO DAILY insulin lispro 100 unit/mL solution 1 sliding scale dose continuous subcutaneous infusion PRN Rx Instructions: Insulin pump Print Language: Irish Forms: Portal Instructions
[2024-07-15] MEDS: OMEPRAZOLE 40 MG CAPSULE.DR PO (10:26)
[2024-07-15] MEDS: MAGNESIUM OXIDE 400 MG TABLET PO ×2 (10:26→20:52)
[2024-07-15] MEDS: ASPIRIN 81 MG TABLET.DR PO (10:26)
[2024-07-15 10:27] LABS: Glucometer 414 mg/dL (74-106)
[2024-07-15] MEDS: AMLODIPINE BESYLATE 5 MG TABLET PO (10:27)
[2024-07-15] MEDS: NON-FORMULARY 1 EACH (Tacrolimus 1 mg capsule) PO ×2 (10:47→23:27)
[2024-07-15] MEDS: NON-FORMULARY 1 EACH (Mycophenolate Mofetil 250 mg capsule) 250 EACH PO ×2 (10:47→23:26)
[2024-07-15 12:17] LABS: Glucometer 365 mg/dL (74-106)
--- NOTE | 2024-07-15 12:24 | CM.NOTE ---
Spoke with Dr. Gonzalez, would like to restart pt's insulin pump. Paperwork completed with pt to restart pump. Pt is A&O and verbalizes understanding of pump, pt changed tubing and primed pump. Pt placed his own pump. Pump reading high as BS check, checked with hospital monitor and BS 365. Pt was able to go through monitor for troubleshooting no pump malfunction or line occlusions, only alarm showing high BS. Pt was concerned about insulin not being refrigerated, spoke with Pharmacy and box has not been opened and has been stored at room temp (ok to use insulin). Pt at this time will order lunch and continue to monitor BS from pump. Pt does verbalize concern with UTI, burning and frequency with urination. Updated RN about symptoms and need to hang sign for insulin pump in use. Pt does have an appointment with Hannah SWANSON this afternoon she manages his diabetes. Pt is possible discharge for this afternoon.
[2024-07-15 13:19] LABS: Glucometer 371 mg/dL (74-106)
[2024-07-15 20:30] LABS: Glucometer 237 mg/dL (74-106)
[2024-07-16 04:00] VITALS: BP 128/86; PULSE 78; TEMP 36.6; O2SAT 97
[2024-07-16] MEDS: OMEPRAZOLE 40 MG CAPSULE.DR PO (05:33)
[2024-07-16 05:41] LABS: Basophils Percent Auto 0.2 % (0.2-2.0); Eosinophils Absolute Auto 0.1 10^3/uL (0.0-0.7); Eosinophils Percent Auto 1.4 % (0.9-7.0); Hematocrit 39.2 % (42.0-54.0); Hemoglobin 13.1 g/dL (14.0-18.0); Immature Granulocytes Abs Auto 0.06 10^3/uL (0.00-0.03); Immature Granulocytes Pct Auto 0.6 % (0.0-0.5); Lymphocytes Absolute Auto 2.7 10^3/uL (1.2-3.8); Lymphocytes Percent Auto 27.9 % (20.5-60.0); Mean Corpuscular HGB Conc 33.4 g/dL (29.9-35.2); Mean Corpuscular Hemoglobin 31.3 pg (25.9-34.0); Mean Corpuscular Volume 93.6 fL (80.0-94.0); Mean Platelet Volume 11.5 fL (9.5-13.5); Monocytes Absolute Auto 0.6 10^3/uL (0.3-0.8); Monocytes Percent Auto 6.2 % (1.7-12.0); Neutrophils Absolute Auto 6.3 10^3/uL (1.4-6.5); Neutrophils Percent Auto 63.7 % (43.0-75.0); Platelet Count 117 10^3/uL (150-450); Red Blood Count 4.19 10^6/uL (4.70-6.10); Red Cell Distribution Width 14.1 % (11.0-15.0); White Blood Count 9.8 10^3/uL (4.0-11.0)
--- NOTE | 2024-07-16 05:48 | P.DS_ITS ---
DS: Providers Provider Date of admission: 07/15/24 00:04 Primary care physician: Camille Avila MD Consults: 07/15/24 06:09 Consult to Pharmacy Routine Consulting Provider: Reason for consultation: Please [place] me when Med Rec is Updated Has provider been notified: No DS: Diagnosis Discharge Diagnosis (1) Hyperglycemia: (2) Hypertension: (3) Diabetes: (4) Liver transplant recipient: (5) Vomiting: (6) Hyperglycemia due to type 1 diabetes mellitus: DS: Summary Hospital Course Hospital Course: Patient after malfunction of his insulin pump protocol, severe hyperglycemia and nausea. Dehydration. Given IV fluids overnight. The plan currently is if he i mproves later today and it appears that the pump is working adequately he can be discharged to home and to see his insurance verification representative today. Medications see list. Follow-up with PCP at discharge. Above note was from the previous day when he was attempting to discharge patient to home, still had reoccurrence of his hyperglycemia and still felt lightheaded and dizzy with ambulation. His insulin pump was adjusted, he did much better overnight. Feels better this morning other than some mild dysuria. Review of urinalysis shows possible early UTI. Will start patient on oral antibiotics, and discharge patient to home he can follow-up with his PCP within the next week. Check on urine culture at that time. Time Spent with Patient Time attestation: Total time spent providing and/or coordinating discharge services: Exam Constitutional Vital Signs, click to edit/add: Last Vital Signs Temp 97.8 F 07/16/24 04:00 Pulse 78 07/16/24 04:00 Resp 18 07/16/24 04:00 BP 128/86 07/16/24 04:00 Pulse Ox 97 07/16/24 04:00 O2 Del Method Room Air 07/16/24 04:00 Documenting provider has reviewed patient's vital signs: yes Common normals: no apparent distress Chest Common normals: inspection of chest normal Respiratory Common normals: normal respiratory effort and no retractions Cardio Common normals: regular rate and regular rhythm GI Common normals: Normal to inspection, nondistended, normoactive bowel sounds present Extremity Common normals: normal to inspection and full ROM DS: Data Data Completed and Pending Labs on day of discharge: Labs from last 24 hours 07/16/24 07/15/24 07/15/24 05:30 20:29 13:18 WBC 9.8 RBC 4.19 L Hgb 13.1 L Hct 39.2 L MCV 93.6 MCH 31.3 MCHC 33.4 RDW 14.1 Plt Count 117 L MPV 11.5 Neut % (Auto) 63.7 Lymph % (Auto) 27.9 [place] % (Auto) 6.2 Eos % (Auto) 1.4 Baso % (Auto) 0.2 Neut # (Auto) 6.3 Lymph # (Auto) 2.7 Pitt # (Auto) 0.6 Eos # (Auto) 0.1 Baso # (Auto) 0.0 Abs Immat Gran (auto) 0.06 H Imm/Tot Granulo (auto) 0.6 H Sodium Potassium Chloride Carbon Dioxide Anion Gap BUN Creatinine Est GFR ( Amer) Est GFR (Non-Af Amer) BUN/Creatinine Ratio Glucose Lactate Calcium Magnesium Total Bilirubin AST ALT Alkaline Phosphatase Total Protein Albumin Globulin Albumin/Globulin Ratio POC Glucose 237 H 371 H 07/15/24 07/15/24 07/15/24 12:13 10:26 07:41 WBC RBC Hgb Hct MCV MCH MCHC RDW Plt Count MPV Neut % (Auto) Lymph % (Auto) Pitt % (Auto) Eos % (Auto) Baso % (Auto) Neut # (Auto) Lymph # (Auto) Pitt # (Auto) Eos # (Auto) Baso # (Auto) Abs Immat Gran (auto) Imm/Tot Granulo (auto) Sodium Potassium Chloride Carbon Dioxide Anion Gap BUN Creatinine Est GFR ( Amer) Est GFR (Non-Af Amer) BUN/Creatinine Ratio Glucose Lactate Calcium Magnesium Total Bilirubin AST ALT Alkaline Phosphatase Total Protein Albumin Globulin Albumin/Globulin Ratio POC Glucose 365 H 414 H 319 H 07/15/24 07/14/24 06:46 19:40 WBC 10.8 RBC 4.34 L Hgb 13.4 L Hct 40.3 L MCV 92.9 MCH 30.9 MCHC 33.3 RDW 13.8 Plt Count 121 L MPV 12.2 Neut % (Auto) 90.7 H Lymph % (Auto) 7.9 L Pitt % (Auto) 0.7 L Eos % (Auto) 0.0 L Baso % (Auto) 0.1 L Neut # (Auto) 9.8 H Lymph # (Auto) 0.9 L Pitt # (Auto) 0.1 L Eos # (Auto) 0.0 Baso # (Auto) 0.0 Abs Immat Gran (auto) 0.06 H Imm/Tot Granulo (auto) 0.6 H Sodium 135 L Potassium 4.8 Chloride 102 Carbon Dioxide 25.6 Anion Gap 12.2 BUN 21.0 H Creatinine 0.99 Est GFR ( Amer) >60 Est GFR (Non-Af Amer) >60 BUN/Creatinine Ratio 21.2 Glucose 361 H Lactate 2.1 H Calcium 8.0 L Magnesium 1.6 L Total Bilirubin 3.2 H AST 70 H ALT 93 H Alkaline Phosphatase 277 H Total Protein 5.8 L Albumin 2.1 L Globulin 3.7 Albumin/Globulin Ratio 0.6 POC Glucose Discharge Plan Discharge Disposition: Home, Self-Care Condition: Fair Discharge Medications: New cefdinir 300 mg capsule 600 mg PO DAILY Qty: 20 0RF Continued prednisone 10 mg tablet 20 mg PO QDAY venlafaxine 37.5 mg capsule,extended release 24hr 75 mg PO QDAY pantoprazole 40 mg tablet,delayed release (DR/EC) 40 mg PO .qd amlodipine 5 mg tablet 5 mg PO DAILY magnesium oxide 400 mg (241.3 mg magnesium) tablet 400 mg PO BID mycophenolate mofetil 250 mg capsule 250 mg PO Q12H tacrolimus 1 mg capsule 1 mg PO Q12H aspirin [Adult Low Dose Aspirin] 81 mg tablet,delayed release (DR/EC) 81 mg PO DAILY insulin lispro 100 unit/mL solution 1 sliding scale dose continuous subcutaneous infusion PRN Rx Instructions: Insulin pump Activity: increase activity as tolerated Diet: advance to your usual diet Print Language: Somali Patient Instructions: Diabetic Hyperglycemia (DC) Forms: Portal Instructions Follow Up Appointments: @ 10am with Dr. Avila [phone] Patient has an appt. with Dr. Treadwell (insurance verification representative) [phone] Discharge Date/Time: 07/16/24 10:45
[2024-07-16 06:01] LABS: Alanine Aminotransferase 103 U/L (16-63); Albumin Globulin Ratio 0.5; Albumin Level 1.9 g/dL (3.4-5.0); Alkaline Phosphatase 239 U/L (46-116); Aspartate Amino Transferase 109 U/L (15-37); BUN Creatinine Ratio 19.3; Bilirubin Total 2.7 mg/dL (0.2-1.0); Calcium 8.4 mg/dL (8.5-10.1); Carbon Dioxide 29.4 mmol/L (21.0-32.0); Chloride 110 mmol/L (98-107); Estimated GFR (African America >60 (>=60 mL/min/1.73m^2); Estimated GFR (Non-African Ame >60 (>=60 mL/min/1.73m^2); Globulin 3.5 g/dL; Glucose 100 mg/dL (74-106); Potassium 3.4 mmol/L (3.5-5.1); Sodium 145 mmol/L (136-145); Total Protein 5.4 g/dL (6.4-8.2)
[2024-07-16 08:11] VITALS: BP 128/83; PULSE 91; TEMP 36.7; O2SAT 97
--- NOTE | 2024-07-16 08:52 | CM.NOTE ---
Rounds made with Dr. Gonzalez, discussed discharge to home today. Pt c/o increased urinary frequency and buring upon urination. Dr. Gonzalez will recheck urine prior to discharge. Pt remains on insulin pump and has a f/u scheduled with Hannah joshi [facility] next week.
[2024-07-16 09:48] LABS: Bilirubin Urine NEGATIVE (NEGATIVE); Blood Urine MODERATE (NEGATIVE); Clarity Urine CLEAR (CLEAR); Color Urine LT. YELLOW (YELLOW); Glucose Urine UA NEGATIVE (NEGATIVE); Ketones Urine NEGATIVE (NEGATIVE); Leukocyte Esterase Urine TRACE (NEGATIVE); Nitrite Urine NEGATIVE (NEGATIVE); Protein Urine NEGATIVE (NEG/TRACE)
[2024-07-16 10:02] LABS: Bacteria Urine TRACE #/HPF (NONE SEEN); Cast Seen? NONE SEEN #/LPF (NONE SEEN); Crystals Seen? None Seen #/HPF (None Seen); Mucus Urine NONE SEEN (NONE SEEN); RBC Urine 20-50 #/HPF (0-2); Squamous Epithelial Cell Urine NONE SEEN #/LPF (NONE/RARE)
[2024-07-16 10:10] VITALS: BMI 17.5
[2024-07-16 10:51] VITALS: O2SAT 97
--- NOTE | 2024-07-17 14:41 | CM.DCFOLLOWU ---
1st attempt 07/17/24, no answer
--- NOTE | 2024-07-18 13:02 | CM.DCFOLLOWU ---
Person spoke with: Sidney How are you feeling? Much better How is your pain? No pain Did you understand your discharge instructions? Yes Do you have any questions about your discharge instructions? No Were you given any prescriptions at discharge? Yes Were you able to get your prescriptions filled? Yes Do you understand how to take your medications as ordered? Yes Do you have any questions about your follow up appointment and do you plan to keep your follow up appointment? No and yes plan on going to appt Is there anything else that you would like to discuss? No Questions/Comments/Concerns/Other:
== END 2024-07-16 10:45 | disposition home or self-care (01) ==
LOC: ER 23:25 → MS 07-15 00:04
PROVIDERS: Registered Nurse; Admitting Provider Family Medicine; Emergency Provider Emergency Medicine; PCP Family Medicine; Visit Provider Family Medicine
DX: E10.65 Type 1 diabetes mellitus with hyperglycemia (principal); I10 Essential (primary) hypertension; E87.20 Acidosis, unspecified; E44.0 Moderate protein-calorie malnutrition; R31.9 Hematuria, unspecified; E86.0 Dehydration; E87.1 Hypo-osmolality and hyponatremia; D69.6 Thrombocytopenia, unspecified; E83.42 Hypomagnesemia; K21.9 Gastro-esophageal reflux disease without esophagitis; F32.A Depression, unspecified; R11.10 Vomiting, unspecified; R30.0 Dysuria; T85.9XXA Unspecified complication of internal prosthetic device, implant and graft, initial encounter; Z96.41 Presence of insulin pump (external) (internal); Z79.4 Long term (current) use of insulin; Z79.899 Other long term (current) drug therapy; Z94.4 Liver transplant status; Z68.1 Body mass index [BMI] 19.9 or less, adult
CPT/HCPCS: 36415; 71045; 80048; 80053; 80076; 81001; 82009; 82800; 82948; 83605; 83735; 85025; 87040; 93005; 94761; 96360; 96361; 99285; G0378; J1817; J7512

== ENCOUNTER 2024-10-04 13:29 | Emergency (ER) | payer OTHER, SELFPAY ==
[2024-10-04 13:37] VITALS: BP 159/93; PULSE 97; TEMP 36.6; O2SAT 100; BMI 17.9
[2024-10-04 14:18] VITALS: BP 141/93; PULSE 98; O2SAT 99
--- NOTE | 2024-10-04 14:30 | CT_ITS ---
[address] [address] Patient Name: LULY GIRON MRN: [id number] date: 1995 Sex: M Assigned Patient Location: ER Current Patient Location: ER Accession/Order Number: [id number] Exam Date: 10/04/2024 14:45 Report Date: 10/04/2024 15:16 At the request of: ANA LAURA BECKFORD Procedure: CT abdomen pelvis wo con EXAMINATION: CT abdomen pelvis wo con HISTORY: flank pain COMPARISON: 05/08/2024 TECHNIQUE: Axial, Coronal, and Sagittal images were created without IV contrast. Dose reduction techniques were achieved by using automated exposure control and/or adjustment of mA and/or kV according to patient size and/or use of iterative reconstruction technique. FINDINGS: LUNG BASES: No visible pulmonary or pleural disease. LIVER: No enlargement, atrophy, abnormal density, or significant focal lesion. BILIARY: Surgical clips from cholecystectomy PANCREAS: No lesion, fluid collection, ductal dilatation, or atrophy. SPLEEN: No enlargement or focal lesion. ADRENALS: No mass or enlargement. KIDNEYS: Asymmetric enlargement of the right kidney with perinephric stranding. Numerous bilateral nonobstructing nephroliths. Mild to moderate right hydroureteronephrosis extending tor to distal ureterolithiasis 2 mm in the distal ureter and 5 mm left ureterovesical junction stone. Normal left BOWEL/MESENTERY: No visible mass, obstruction, or bowel wall thickening. AORTA/VASCULAR: No aneurysm or dissection. RETROPERITONEUM: No mass or adenopathy. LYMPH NODES: No adenopathy. URINARY BLADDER: No visible focal wall thickening, lesion, or calculus. PELVIC ORGANS: No visible mass. Pelvic organs appropriate for patient age. ABDOMINAL WALL: No mass or hernia. BONES: No bony lesion or fracture. OTHER: Negative. CT/CT abdomen pelvis wo con IMPRESSION: 5 mm right ureterovesical junction stone with moderate associated obstructive uropathy Electronically authenticated by: BAO GOMES Date: 10/04/2024 15:16
[2024-10-04] MEDS: ONDANSETRON PF 4 MG/2 ML VIAL IV (14:38)
[2024-10-04] MEDS: 0.9 % SODIUM CHLORIDE 1,000 ML 1000 ML IV (14:38)
[2024-10-04] MEDS: KETOROLAC TROMETHAMINE 30 MG/ML VIAL IVP (14:42)
[2024-10-04 14:56] LABS: Basophils Absolute Auto 0.1 10^3/uL (0.0-0.1); Basophils Percent Auto 0.6 % (0.2-2.0); Eosinophils Percent Auto 0.1 % (0.9-7.0); Hematocrit 45.1 % (42.0-54.0); Hemoglobin 14.8 g/dL (14.0-18.0); Immature Granulocytes Abs Auto 0.16 10^3/uL (0.00-0.03); Lymphocytes Absolute Auto 1.8 10^3/uL (1.2-3.8); Lymphocytes Percent Auto 11.7 % (20.5-60.0); Mean Corpuscular HGB Conc 32.8 g/dL (29.9-35.2); Mean Corpuscular Hemoglobin 30.3 pg (25.9-34.0); Mean Corpuscular Volume 92.2 fL (80.0-94.0); Mean Platelet Volume 11.8 fL (9.5-13.5); Monocytes Absolute Auto 1.4 10^3/uL (0.3-0.8); Neutrophils Percent Auto 77.6 % (43.0-75.0); Platelet Count 209 10^3/uL (150-450); Red Blood Count 4.89 10^6/uL (4.70-6.10); Red Cell Distribution Width 14.1 % (11.0-15.0); White Blood Count 15.5 10^3/uL (4.0-11.0)
[2024-10-04] MEDS: MORPHINE SULFATE 2 MG/ML SYRINGE IV (15:13)
[2024-10-04 15:16] LABS: Alanine Aminotransferase 128 U/L (16-63); Albumin Globulin Ratio 0.6; Albumin Level 2.7 g/dL (3.4-5.0); Alkaline Phosphatase 368 U/L (46-116); Anion Gap 13.2; Aspartate Amino Transferase 93 U/L (15-37); BUN Creatinine Ratio 15.4; Bilirubin Total 3.1 mg/dL (0.2-1.0); Calcium 8.8 mg/dL (8.5-10.1); Chloride 98 mmol/L (98-107); Estimated GFR (African America >60 (>=60 mL/min/1.73m^2); Estimated GFR (Non-African Ame 50 (>=60 mL/min/1.73m^2); Globulin 4.3 g/dL; Glucose 414 mg/dL (74-106); Potassium 3.2 mmol/L (3.5-5.1); Sodium 136 mmol/L (136-145)
[2024-10-04] MEDS: TAMSULOSIN HCL 0.4 MG CAPSULE PO (15:54)
[2024-10-04 16:33] LABS: Bilirubin Urine NEGATIVE (NEGATIVE); Blood Urine LARGE (NEGATIVE); Clarity Urine CLEAR (CLEAR); Color Urine YELLOW (YELLOW); Glucose Urine UA >=1000 mg/dL (NEGATIVE); Ketones Urine NEGATIVE (NEGATIVE); Leukocyte Esterase Urine NEGATIVE (NEGATIVE); Nitrite Urine NEGATIVE (NEGATIVE); Protein Urine NEGATIVE (NEG/TRACE); Urobilinogen Urine 0.2 EU/dL (0.2-1.0); pH Urine 6.5 (5.0-9.0)
--- NOTE | 2024-10-04 16:52 | ED_ITS ---
Documented by User: Chacha Rai 10/04/24 16:55 HPI - Abdominal Pain General Chief Complaint: Abdominal Pain Stated Complaint: PAIN IN STOMACH RIGHT SIDE Time Seen by Provider: 10/04/24 14:14 Source: patient Mode of arrival: Wheelchair Limitations: no limitations History of Present Illness HPI narrative: 29-year-old male presents here with chief complaint of right flank pain. Patient states the pain began early this morning with nausea. He does have a history of stones. He states this feels similar to previous stone. Also has a history of liver transplant. He is alert and oriented. He does not appear toxic. Patient also states he has a history of cholecystectomy. He states he is still has his appendix. Patient has been able to urinate denies any fevers or chills. Related Data Home Medications ?Medication ?Instructions ?Recorded ?Confirmed amlodipine 5 mg tablet 5 mg PO DAILY 05/21/23 07/14/24 aspirin 81 mg tablet,delayed 81 mg PO DAILY 05/21/23 07/14/24 release (Adult Low Dose Aspirin) insulin lispro 100 unit/mL 1 sliding scale dose continuous 05/21/23 07/15/24 subcutaneous solution subcutaneous infusion PRN insulin pump magnesium oxide 400 mg (241.3 mg 400 mg PO BID 05/21/23 07/14/24 magnesium) tablet mycophenolate mofetil 250 mg 250 mg PO Q12H 05/21/23 07/14/24 capsule tacrolimus 1 mg capsule, 1 mg PO Q12H 05/21/23 07/14/24 immediate-release prednisone 10 mg tablet 20 mg PO QDAY 07/14/24 07/14/24 venlafaxine 37.5 mg 75 mg PO QDAY 07/14/24 07/14/24 capsule,extended release 24 hr pantoprazole 40 mg tablet,delayed 40 mg PO .qd 07/15/24 07/15/24 release Previous Rx's ?Medication ?Instructions ?Recorded cefdinir 300 mg capsule 600 mg (2 x 300 mg) PO DAILY #20 07/16/24 caps ondansetron 4 mg disintegrating 4 mg PO Q8H PRN nausea and 10/04/24 tablet vomiting 4 days #10 tabs tamsulosin 0.4 mg capsule (Flomax) 0.4 mg PO DAILY #5 caps 10/04/24 Allergies Allergy/AdvReac Type Severity Reaction Status Date / Time red (food color) AdvReac Intermediate Swelling Verified 07/14/24 19:27 of Lip/Tongue/Throat Review of Systems ROS Narrative All Systems are negative except as noted/marked.All systems reviewed and otherwise negative [facility] Medical History (Updated 10/04/24 @ 16:48 by Chacha Rai) Hyperglycemia ?R73.9 - Hyperglycemia, unspecified (ICD-10) Hyperglycemia due to type 1 diabetes mellitus ?E10.65 - Type 1 diabetes mellitus with hyperglycemia (ICD-10) Vomiting ?R11.10 - Vomiting, unspecified (ICD-10) Hypertension ?I10 - Essential (primary) hypertension (ICD-10) Diabetes ?E11.9 - Type 2 diabetes mellitus without complications (ICD-10) Surgical History (Updated 05/08/24 @ 20:51 by Holli Amato) Liver transplant recipient ?Z94.4 - Liver transplant status (ICD-10) Family History (Updated 07/15/24 @ 00:09 by Katt Tarango) Other Family history of COPD (chronic obstructive pulmonary disease) Family history of diabetes mellitus Family history of hypertension Family history of myocardial infarction Family history of stroke Social History (Updated 07/15/24 @ 00:09 by Katt Tarango) Within the past year, how often did you have a drink containing alcohol: never Within the past year, how often did you have six or more drinks on one occasion: never Score interpretation: A score less than 4 is consistent with normal alcohol consumption. Smoking status: Never smoker Non-prescribed substance use: denies use Highest level of school completed/degree received: high school graduate In a typical week, how many times do you talk on the telephone with family, friends, or neighbors: 3 or more times per week How often do you get together with friends or relatives: 3 or more times per week Little interest or pleasure in doing things: not at all Feeling down, depressed, or hopeless: not at all Feel stressed/tense/nervous/anxious/difficulty sleeping: not at all Do you think of yourself as: straight/heterosexual Gender Identity: male Exam Narrative Exam Narrative: Nurses note and vital signs reviewed and patient is not hypoxic. General: The patient appears well and in no apparent distress. Patient is resting comfortably on cart. Skin: Warm, dry, no pallor noted. There is no rash noted. Head: Normocephalic, atraumatic Eye: Normal conjunctiva, no drainage, EOMI. PERRL Ears, Nose, Mouth, and Throat: oral mucosa is moist. Nares patent. Mouth without vesicles. Ear canals patent. Tm's without Erythema Cardiovascular: Regular Rate and Rhythm Respiratory: Patient is in no distress, no accessory muscle use, lungs are clear to auscultation, no wheezing, rales or rhonchi Back: non-tender, no CVA tenderness bilaterally to percussion. GI: Normal bowel sounds, no tenderness to palpation, no masses appreciated. No rebound, guarding, or rigidity noted. Musculoskeletal: The patient has no evidence of calf tenderness, no pitting edema, symmetrical pulses noted bilaterally Neurological: A&O x4, normal speech Psychiatric: Cooperative Constitutional Vital Signs, click to edit/add: Last Vital Signs Temp 97.8 F 10/04/24 13:37 Pulse 98 H 10/04/24 14:18 Resp 20 10/04/24 14:18 BP 141/93 H 10/04/24 14:18 Pulse Ox 99 10/04/24 14:18 O2 Del Method Room Air 10/04/24 14:18 Course Vital Signs Vital signs: Vital Signs Temperature 97.8 F 10/04/24 13:37 Pulse Rate 97 H 10/04/24 13:37 Respiratory Rate 18 10/04/24 13:37 Blood Pressure 159/93 H 10/04/24 13:37 Pulse Oximetry 100 10/04/24 13:37 Oxygen Delivery Method Room Air 10/04/24 13:37 Temperature 97.8 F 10/04/24 13:37 Pulse Rate 98 H 10/04/24 14:18 Respiratory Rate 20 10/04/24 14:18 Blood Pressure 141/93 H 10/04/24 14:18 Pulse Oximetry 99 10/04/24 14:18 Oxygen Delivery Method Room Air 10/04/24 14:18 MDM - Abdominal Pain MDM Narrative Medical decision making narrative: 29-year-old male presenting here with chief complaint of right flank pain. Upon arrival to the emergency room IV was established patient was given IV fluids Z ofran and Toradol. He states he continued to have pain was then medicated with 2 of morphine. That helped to alleviate his symptoms. CT scan was obtained and showed a 5 mm stone. Patient is able to urinate. Patient states he has had history of stones in the past but has not seen urology other than Dr. Morley which has been several years. Patient is alert and oriented at this time. He has been able to urinate here and states his pain is improved. Patient be discharged home prescription for Flomax and Zofran and pain medication. He will follow-up with urology Dr. Wilson. Patient agrees with plan of care. Reasons to return to the emergency room including fever, inability to urinate, pain out of proportion. Differential Diagnosis Differential diagnosis: Likely abdominal pain, calculus of kidney and constipation Medical Records Attestation: I reviewed the patient's medical records. Lab Data Attestation: I reviewed the patient's lab results. Labs: Lab Results 10/04/24 10/04/24 Range/Units 14:20 16:05 WBC 15.5 H (4.0-11.0) 10^3/uL RBC 4.89 (4.70-6.10) 10^6/uL Hgb 14.8 (14.0-18.0) g/dL Hct 45.1 (42.0-54.0) % MCV 92.2 (80.0-94.0) fL MCH 30.3 (25.9-34.0) pg MCHC 32.8 (29.9-35.2) g/dL RDW 14.1 (11.0-15.0) % Plt Count 209 (150-450) 10^3/uL MPV 11.8 (9.5-13.5) fL Neut % (Auto) 77.6 H (43.0-75.0) % Lymph % (Auto) 11.7 L (20.5-60.0) % [place] % (Auto) 9.0 (1.7-12.0) % Eos % (Auto) 0.1 L (0.9-7.0) % Baso % (Auto) 0.6 (0.2-2.0) % Neut # (Auto) 12.0 H (1.4-6.5) 10^3/uL Lymph # (Auto) 1.8 (1.2-3.8) 10^3/uL [place] # (Auto) 1.4 H (0.3-0.8) 10^3/uL Eos # (Auto) 0.0 (0.0-0.7) 10^3/uL Baso # (Auto) 0.1 (0.0-0.1) 10^3/uL Abs Immat Gran (auto) 0.16 H (0.00-0.03) 10^3/uL Imm/Tot Granulo (auto) 1.0 H (0.0-0.5) % Sodium 136 (136-145) mmol/L Potassium 3.2 L (3.5-5.1) mmol/L Chloride 98 (98-107) mmol/L Carbon Dioxide 28.0 (21.0-32.0) mmol/L Anion Gap 13.2 BUN 25.0 H (7.0-18.0) mg/dL Creatinine 1.62 H (0.70-1.30) mg/dL Est GFR ( Amer) >60 (>=60 mL/min/1.73m^2) Est GFR (Non-Af Amer) 50 L (>=60 mL/min/1.73m^2) BUN/Creatinine Ratio 15.4 Glucose 414 H (74-106) mg/dL Calcium 8.8 (8.5-10.1) mg/dL Total Bilirubin 3.1 H (0.2-1.0) mg/dL AST 93 H (15-37) U/L ALT 128 H (16-63) U/L Alkaline Phosphatase 368 H (46-116) U/L Total Protein 7.0 (6.4-8.2) g/dL Albumin 2.7 L (3.4-5.0) g/dL Globulin 4.3 g/dL Albumin/Globulin Ratio 0.6 Urine Color Yellow (YELLOW) Urine Clarity Clear (CLEAR) Urine pH 6.5 (5.0-9.0) Ur Specific [place] 1.010 (1.005-1.025) Urine Protein Negative (NEG/TRACE) mg/dL Urine Glucose (UA) >=1000 A (NEGATIVE) mg/dL Urine Ketones Negative (NEGATIVE) mg/dL Urine Occult Blood Large A (NEGATIVE) Urine Nitrite Negative (NEGATIVE) Urine Bilirubin Negative (NEGATIVE) Urine Urobilinogen 0.2 (0.2-1.0) EU/dL Ur Leukocyte Esterase Negative (NEGATIVE) Urine RBC 50-75 A (0-2) #/HPF Urine WBC None seen (NONE SEEN) #/HPF Ur Squamous Epith Cells Rare (NONE/RARE) #/LPF Urine Crystals None seen (None Seen) #/HPF Urine Bacteria Trace A (NONE SEEN) #/HPF Urine Casts None seen (NONE SEEN) #/LPF Urine Mucus None seen (NONE SEEN) Imaging Data CT scan - abdomen: Radiologist's impression: ITS Impressions Abdomen/Pelvis CT 10/04/24 14:30 IMPRESSION: 5 mm right ureterovesical junction stone with moderate associated obstructive uropathy Electronically authenticated by: BAO GOMES Date: 10/04/2024 15:16 Discharge Plan Discharge Chief Complaint: Abdominal Pain Clinical Impression: Calculus of kidney Patient Disposition: Home, Self-Care Time of Disposition Decision: 16:48 Condition: Good Prescriptions / Home Meds: New tamsulosin [Flomax] 0.4 mg capsule 0.4 mg PO DAILY Qty: 5 0RF ondansetron 4 mg tablet,disintegrating 4 mg PO Q8H PRN (Reason: nausea and vomiting) 4 Days Qty: 10 0RF No Action prednisone 10 mg tablet 20 mg PO QDAY venlafaxine 37.5 mg capsule,extended release 24hr 75 mg PO QDAY pantoprazole 40 mg tablet,delayed release (DR/EC) 40 mg PO .qd cefdinir 300 mg capsule 600 mg PO DAILY Qty: 20 0RF amlodipine 5 mg tablet 5 mg PO DAILY magnesium oxide 400 mg (241.3 mg magnesium) tablet 400 mg PO BID mycophenolate mofetil 250 mg capsule 250 mg PO Q12H tacrolimus 1 mg capsule 1 mg PO Q12H aspirin [Adult Low Dose Aspirin] 81 mg tablet,delayed release (DR/EC) 81 mg PO DAILY insulin lispro 100 unit/mL solution 1 sliding scale dose continuous subcutaneous infusion PRN Rx Instructions: Insulin pump Print Language: Albanian Instructions: Kidney Stones (ED), How to Strain Your Urine (ED), Hydronephrosis (ED) Referrals: Neyda Hernandez MD [Physician] - 1 week Camille Avila MD [Primary Care Provider] - 1 week Discharge Date/Time: 10/04/24 17:09 Documented by User: Modesto Ramirez MD 10/04/24 19:55 HPI - Abdominal Pain General Chief Complaint: Abdominal Pain Stated Complaint: PAIN IN STOMACH RIGHT SIDE Time Seen by Provider: 10/04/24 14:14 Related Data Home Medications ?Medication ?Instructions ?Recorded ?Confirmed amlodipine 5 mg tablet 5 mg PO DAILY 05/21/23 07/14/24 aspirin 81 mg tablet,delayed 81 mg PO DAILY 05/21/23 07/14/24 release (Adult Low Dose Aspirin) insulin lispro 100 unit/mL 1 sliding scale dose continuous 05/21/23 07/15/24 subcutaneous solution subcutaneous infusion PRN insulin pump magnesium oxide 400 mg (241.3 mg 400 mg PO BID 05/21/23 07/14/24 magnesium) tablet mycophenolate mofetil 250 mg 250 mg PO Q12H 05/21/23 07/14/24 capsule tacrolimus 1 mg capsule, 1 mg PO Q12H 05/21/23 07/14/24 immediate-release prednisone 10 mg tablet 20 mg PO QDAY 07/14/24 07/14/24 venlafaxine 37.5 mg 75 mg PO QDAY 07/14/24 07/14/24 capsule,extended release 24 hr pantoprazole 40 mg tablet,delayed 40 mg PO .qd 07/15/24 07/15/24 release Previous Rx's ?Medication ?Instructions ?Recorded cefdinir 300 mg capsule 600 mg (2 x 300 mg) PO DAILY #20 07/16/24 caps ondansetron 4 mg disintegrating 4 mg PO Q8H PRN nausea and 10/04/24 tablet vomiting 4 days #10 tabs tamsulosin 0.4 mg capsule (Flomax) 0.4 mg PO DAILY #5 caps 10/04/24 Allergies Allergy/AdvReac Type Severity Reaction Status Date / Time red (food color) AdvReac Intermediate Swelling Verified 07/14/24 19:27 of Lip/Tongue/Throat [facility] Medical History (Updated 10/04/24 @ 16:48 by Chacha Rai) Hyperglycemia ?R73.9 - Hyperglycemia, unspecified (ICD-10) Hyperglycemia due to type 1 diabetes mellitus ?E10.65 - Type 1 diabetes mellitus with hyperglycemia (ICD-10) Vomiting ?R11.10 - Vomiting, unspecified (ICD-10) Hypertension ?I10 - Essential (primary) hypertension (ICD-10) Diabetes ?E11.9 - Type 2 diabetes mellitus without complications (ICD-10) Surgical History (Updated 05/08/24 @ 20:51 by Holli Amato) Liver transplant recipient ?Z94.4 - Liver transplant status (ICD-10) Family History (Updated 07/15/24 @ 00:09 by Katt Tarango) Other Family history of COPD (chronic obstructive pulmonary disease) Family history of diabetes mellitus Family history of hypertension Family history of myocardial infarction Family history of stroke Social History (Updated 07/15/24 @ 00:09 by Katt Tarango) Within the past year, how often did you have a drink containing alcohol: never Within the past year, how often did you have six or more drinks on one occasion: never Score interpretation: A score less than 4 is consistent with normal alcohol consumption. Smoking status: Never smoker Non-prescribed substance use: denies use Highest level of school completed/degree received: high school graduate In a typical week, how many times do you talk on the telephone with family, friends, or neighbors: 3 or more times per week How often do you get together with friends or relatives: 3 or more times per week Little interest or pleasure in doing things: not at all Feeling down, depressed, or hopeless: not at all Feel stressed/tense/nervous/anxious/difficulty sleeping: not at all Do you think of yourself as: straight/heterosexual Gender Identity: male Exam Constitutional Vital Signs, click to edit/add: Last Vital Signs Temp 97.8 F 10/04/24 13:37 Pulse 98 H 10/04/24 14:18 Resp 20 10/04/24 14:18 BP 141/93 H 10/04/24 14:18 Pulse Ox 99 10/04/24 14:18 O2 Del Method Room Air 10/04/24 14:18 Course Vital Signs Vital signs: Vital Signs Temperature 97.8 F 10/04/24 13:37 Pulse Rate 97 H 10/04/24 13:37 Respiratory Rate 18 10/04/24 13:37 Blood Pressure 159/93 H 10/04/24 13:37 Pulse Oximetry 100 10/04/24 13:37 Oxygen Delivery Method Room Air 10/04/24 13:37 Temperature 97.8 F 10/04/24 13:37 Pulse Rate 98 H 10/04/24 14:18 Respiratory Rate 20 10/04/24 14:18 Blood Pressure 141/93 H 10/04/24 14:18 Pulse Oximetry 99 10/04/24 14:18 Oxygen Delivery Method Room Air 10/04/24 14:18 MDM - Abdominal Pain MDM Narrative Medical decision making narrative: 29-year-old male presenting here with chief complaint of right flank pain. Upon arrival to the emergency room IV was established patient was given IV fluids Zofran and Toradol. He states he continued to have pain was then medicated with 2 of morphine. That helped to alleviate his symptoms. CT scan was obtained and showed a 5 mm stone. Patient is able to urinate. Patient states he has had history of stones in the past but has not seen urology other than Dr. Morley which has been several years. Patient is alert and oriented at this time. He has been able to urinate here and states his pain is improved. Patient be discharged home prescription for Flomax and Zofran and pain medication. He will follow-up with urology Dr. Wilson. Patient agrees with plan of care. Reasons to return to the emergency room including fever, inability to urinate, pain out of proportion. I, Dr Ramirez, have reviewed the above progress note and course of action in the ER; agree with the above. I have personally gone over history and physical, and discussed disposition and treatment plan with the patient. Lab Data Labs: Lab Results 10/04/24 10/04/24 Range/Units 14:20 16:05 WBC 15.5 H (4.0-11.0) 10^3/uL RBC 4.89 (4.70-6.10) 10^6/uL Hgb 14.8 (14.0-18.0) g/dL Hct 45.1 (42.0-54.0) % MCV 92.2 (80.0-94.0) fL MCH 30.3 (25.9-34.0) pg MCHC 32.8 (29.9-35.2) g/dL RDW 14.1 (11.0-15.0) % Plt Count 209 (150-450) 10^3/uL MPV 11.8 (9.5-13.5) fL Neut % (Auto) 77.6 H (43.0-75.0) % Lymph % (Auto) 11.7 L (20.5-60.0) % [place] % (Auto) 9.0 (1.7-12.0) % Eos % (Auto) 0.1 L (0.9-7.0) % Baso % (Auto) 0.6 (0.2-2.0) % Neut # (Auto) 12.0 H (1.4-6.5) 10^3/uL Lymph # (Auto) 1.8 (1.2-3.8) 10^3/uL [place] # (Auto) 1.4 H (0.3-0.8) 10^3/uL Eos # (Auto) 0.0 (0.0-0.7) 10^3/uL Baso # (Auto) 0.1 (0.0-0.1) 10^3/uL Abs Immat Gran (auto) 0.16 H (0.00-0.03) 10^3/uL Imm/Tot Granulo (auto) 1.0 H (0.0-0.5) % Sodium 136 (136-145) mmol/L Potassium 3.2 L (3.5-5.1) mmol/L Chloride 98 (98-107) mmol/L Carbon Dioxide 28.0 (21.0-32.0) mmol/L Anion Gap 13.2 BUN 25.0 H (7.0-18.0) mg/dL Creatinine 1.62 H (0.70-1.30) mg/dL Est GFR ( Amer) >60 (>=60 mL/min/1.73m^2) Est GFR (Non-Af Amer) 50 L (>=60 mL/min/1.73m^2) BUN/Creatinine Ratio 15.4 Glucose 414 H (74-106) mg/dL Calcium 8.8 (8.5-10.1) mg/dL Total Bilirubin 3.1 H (0.2-1.0) mg/dL AST 93 H (15-37) U/L ALT 128 H (16-63) U/L Alkaline Phosphatase 368 H (46-116) U/L Total Protein 7.0 (6.4-8.2) g/dL Albumin 2.7 L (3.4-5.0) g/dL Globulin 4.3 g/dL Albumin/Globulin Ratio 0.6 Urine Color Yellow (YELLOW) Urine Clarity Clear (CLEAR) Urine pH 6.5 (5.0-9.0) Ur Specific [place] 1.010 (1.005-1.025) Urine Protein Negative (NEG/TRACE) mg/dL Urine Glucose (UA) >=1000 A (NEGATIVE) mg/dL Urine Ketones Negative (NEGATIVE) mg/dL Urine Occult Blood Large A (NEGATIVE) Urine Nitrite Negative (NEGATIVE) Urine Bilirubin Negative (NEGATIVE) Urine Urobilinogen 0.2 (0.2-1.0) EU/dL Ur Leukocyte Esterase Negative (NEGATIVE) Urine RBC 50-75 A (0-2) #/HPF Urine WBC None seen (NONE SEEN) #/HPF Ur Squamous Epith Cells Rare (NONE/RARE) #/LPF Urine Crystals None seen (None Seen) #/HPF Urine Bacteria Trace A (NONE SEEN) #/HPF Urine Casts None seen (NONE SEEN) #/LPF Urine Mucus None seen (NONE SEEN) Imaging Data CT scan - abdomen: Radiologist's impression: ITS Impressions Abdomen/Pelvis CT 10/04/24 14:30
[2024-10-04 16:57] LABS: Bacteria Urine TRACE #/HPF (NONE SEEN); Cast Seen? NONE SEEN #/LPF (NONE SEEN); Crystals Seen? None Seen #/HPF (None Seen); Mucus Urine NONE SEEN (NONE SEEN); RBC Urine 50-75 #/HPF (0-2); Squamous Epithelial Cell Urine RARE #/LPF (NONE/RARE); WBC Urine NONE SEEN #/HPF (NONE SEEN)
== END 2024-10-04 17:09 | disposition home or self-care (01) ==
PROVIDERS: Physician Assistant; Emergency Provider Emergency Medicine; PCP Family Medicine
DX: N20.0 Calculus of kidney (principal); Z87.442 Personal history of urinary calculi; Z90.49 Acquired absence of other specified parts of digestive tract; Z94.4 Liver transplant status
CPT/HCPCS: 36415; 74176; 80053; 81001; 85025; 96374; 96375; 99285; J1885; J2270; J2405

== ENCOUNTER 2025-02-25 08:17 | Emergency (ER) | payer OTHER, SELFPAY ==
--- OUTSIDE RECORDS SUMMARY | 2025-01-31 16:42 | XMS_ITS ---
Author Name Auto Generated Organization OHIP Support Name Relationship Address Phone OMER GIRON Next of Kin Unknown [phone] VALSHANA, MATTHEW Next of Kin Unknown + Vallance, Kenisha Next of Kin Unknown [phone] VALLANRIAN, OMER Next of Kin Unknown [phone] VALLNCE, MATTHEW Next of Kin Unknown + VALLANCE, OMER Next of Kin Unknown [phone] VALLNCE, MATTHEW Next of Kin Unknown + VALLANCE, WILBERTO Next of Kin Unknown [phone] VALLANCE, MATTHEW Next of Kin Unknown [phone] Vallance, Kenisha Next of Kin Unknown [phone] VALLANCE, WILBERTO Next of Kin Unknown [phone] VALLANCE, MATTHEW Next of Kin Unknown [phone] VALLANCE, WILBERTO Next of Kin Unknown [phone] VALLANCE, MATTHEW Next of Kin Unknown [phone] Vallance, Wilberto Next of Kin [address] [place] [address] + Vallance, Wilberto Next of Kin [address] [place] [address] + VALLANCE, WILBERTO Next of Kin Unknown [phone] Vallance, Wilberto Next of Kin [address] [place] [address] + Vallance, Wilberto Next of Kin [address] [place] [address] + Vallance, Wilberto Next of Kin [address] [place] [address] + Vallance, Kenisha Next of Kin Unknown [phone] VALLANCE, WILBERTO Next of Kin Unknown [phone] VALLANCE, MATTHEW Next of Kin Unknown [phone] VALLANCE, WILBERTO Next of Kin Unknown [phone] VALLANCE, MATTHEW Next of Kin Unknown [phone] Vallance, Wilberto Next of Kin [address] [place] [address] + Vallance, Kenisha Next of Kin Unknown [phone] VALLANCE, WILBERTO Next of Kin Unknown [phone] VALLANCE, MATTHEW Next of Kin Unknown [phone] Vallance, Wilberto Next of Kin [address] [place] [address] + Vallance, Kenisha Next of Kin Unknown [phone] VALLANCE, WILBERTO Next of Kin Unknown [phone] VALLANCE, MATTHEW Next of Kin Unknown [phone] Vallance, Wilberto Next of Kin [address] [place] [address] + Vallance, Kenisha Next of Kin Unknown [phone] Vallance, Wilberto Next of Kin [address] [place] [address] + Vallance, Kenisha Next of Kin Unknown [phone] Vallance, Wilberto Next of Kin [address] [place] [address] + Kenisha Giron Next of Kin Unknown [phone] Care Team Providers Care Piecer Up Name Role Phone Sosa, Camille E Primary Care Unavailable Gholam, Sharan Attending Unavailable Gholam, Sharan Admitting Unavailable Sosa, Camille E Primary Care Unavailable Gholam, Sharan Attending Unavailable Gholam, Sharan Admitting Unavailable Sosa, Camille E Primary Care Unavailable Gholam, Sharan Attending Unavailable Gholam, Sharan Admitting Unavailable Sosa, Camille E Primary Care Unavailable Gholam, Sharan Attending Unavailable Gholam, Sharan Admitting Unavailable Gholam, Sharan Admitting Unavailable Sosa, Camille E Primary Care Unavailable Gholam, Sharan Attending Unavailable Gholam, Sharan Admitting Unavailable Sosa, Camille E Primary Care Unavailable Gholam, Sharan Attending Unavailable Gholam, Sharan Admitting Unavailable Sosa, Camille E Primary Care Unavailable Gholam, Sharan Attending Unavailable Gholam, Sharan Admitting Unavailable Sosa, Camille E Primary Care Unavailable Gholam, Sharan Attending Unavailable Gholam, Sharan Admitting Unavailable Sosa, Camille E Primary Care Unavailable Gholam, Sharan Attending Unavailable Sosa, Camille E Primary Care Unavailable Gholam, Sharan Attending Unavailable Gholam, Sharan Admitting Unavailable Sosa, Camille E Primary Care Unavailable Gholam, Sharan Attending Unavailable Gholam, Sharan Admitting Unavailable Sosa, Camille E Primary Care Unavailable Gholam, Sharan Attending Unavailable Gholam, Sharan Admitting Unavailable GHOLAM, SHARAN M Attending Unavailable SOSA, CAMILLE E Primary Care Unavailable GHOLAM, SHARAN M Attending Unavailable SOSA, CAMILLE E Primary Care Unavailable GHOLAM, SHARAN M Attending Unavailable SOSA, CAMILLE E Primary Care Unavailable GHOLAM, SHARAN M Referring Unavailable SOSA, CAMILLE E Primary Care Unavailable SOSA, CAMILLE E Primary Care Unavailable Neyda Hernandez Attending Unavailable Neyda Hernandez Attending Unavailable PETZNCHUY YU Attending Unavailable PETITTZHANE Banegas Attending Unavailable CHUY TEJEDA Attending Unavailable ZHANE DE DIOS Attending Unavailable PETITTBassam, ZHANE A Attending Unavailable PETITTI, ZHANE A Attending Unavailable PETITTIZHANE A Attending Unavailable PROBLEMS DATE TYPE CONDITION / CODE ATTENDING STATUS [facility] 01/31/2025 Unknown Abnormal results of liver function studies / R94.5(ICD-10) [facility] Admitting Diagnosis 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 / T86.90(ICD-10) NA [facility] 07/18/2023 Admitting Diagnosis Other specified abnormal findings of blood chemistry / R79.89(ICD-10) NA [facility] 01/09/2025 Admitting Diagnosis Essential (primary) hypertension / I10(ICD-10) [facility]/05/2024 Unknown Liver transplant status / Z94.4(ICD-10) [facility] 10/10/2024 Unknown 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) [facility] 07/18/2023 Admitting Diagnosis Liver transplant status / Z94.4(ICD-10) [facility] Unknown Immunodeficiency , unspecified / D84.9(ICD-10) [facility] 01/18/2024 Admitting Diagnosis Liver transplant rejection (Multi) / T86.41(ICD-10) [facility] 07/18/2023 Admitting Diagnosis Liver transplant status (Multi) / Z94.4(ICD-10) [facility] Admitting Diagnosis Localized edema / R60.0(ICD-10) [facility] 04/18/2024 Admitting Diagnosis Gastro-esophageal reflux disease without esophagitis / K21.9(ICD-10) [facility] PROCEDURES No Procedure Records Found RESULTS COMPLETE BLOOD COUNT AUTO DIFF Collected: 01/31/2025 10:49 AM Status: F Source: [facility] TYPE CODE TESTS RESULT OUT OF RANGE REFERENCE UNITS LAB WBC White Blood Count 10.8 High 4.1-10.5 10*3/uL LAB UNWBC Uncorrected WBC 10.8 High 4.1-10.5 10*3/uL LAB RBC Red Blood Count 4.65 Normal 3.90-5.60 10*6/u L LAB HGB Hemoglobin 14.6 Normal 13.0-17.0 g/dL LAB HCT Hematocrit 42.0 Normal 38.8-50.0 % LAB MCV Mean Corpuscular Volume 90.3 Normal 83.5-101 fL LAB MCH Mean Corpuscular Hemoglobin 31.3 Normal 27.5-35.2 pg LAB MCHC Mean Corpuscular HGB Conc 34.7 Normal 32.5-35.6 g/dL LAB RDW Red Cell Distribution Width 15.1 High 12.0-14.8 % LAB PLT Platelet Count 181 Normal 150-450 10*3/uL LAB MPV Mean Platelet Volume 10.6 High 6.6-10.1 fL LAB NE% Neutrophils % (Auto) 62.5 . % LAB LY% Lymphocytes % (Auto) 26.4 . % LAB MO% Monocytes % (Auto) 8.9 . % LAB EO% Eosinophils % (Auto) 0.8 . % LAB BA% Basophils % (Auto) 1.4 . % LAB NRBC% NRBC% 0.1 Normal 0-0.5 /100{WBC} LAB NE# Neutrophils # (Auto) 6.8 Normal 1.8-7.7 10*3/uL LAB LY# Lymphocytes # (Auto) 2.9 Normal 1.00-4.8 10*3/uL LAB MO# Monocytes # (Auto) 1.0 High 0.0-0.8 10*3/uL LAB EO# Eosinophils # (Auto) 0.1 Normal 0.0-0.45 10*3/uL LAB BA# Basophils # (Auto) 0.1 Normal 0.0-0.2 10*3/uL Result Comment: PERFORMED BY : [facility] [address] [place] [address] PATHOLOGIST [employer] PERSON XI COLNO M.D. Performed By: #### MG, CBC, TACROLIMUS., CMP #### [facility] [address] COMPREHENSIVE METABOLIC PANEL Collected: 01/31/2025 1 0:49 AM Status: F Source: [facility] TYPE CODE TESTS RESULT OUT OF RANGE REFERENCE UNITS LAB GLU Glucose 84 Normal 70-100 mg/dL Result Comment: Random Gluco se Reference Range is dependent on time and content of last meal. Glucose of more than 200 mg/dL in a nonstressed, ambulatory subject supports the diagnosis of Diabetes Mellitus. ADA recommended reference range LAB BUN Blood Urea Nitrogen 22 Normal 7-25 mg/d L LAB CREATT Creatinine 1.01 Normal 0.70-1.30 mg/dL LAB GFReNR Estimated GFR >60.0 mL/Min LAB NA Sodium 140 Normal 136-145 mmol/L LAB K Potassium 3.2 Low 3.5-5.1 mmol/L LAB CL Chloride 100 Normal 98-107 mmol/L LAB CO2 Carbon Dioxide 33.9 High 21.0-31.0 mmol/L LAB GAP Anion Gap 9.3 Normal 6.0-15.0 meq/L LAB CA Calcium 9.4 Normal 8.6-10.3 mg/dL LAB TP Total Protein 6.6 Normal 6.4-8.9 g/dL LAB ALB Albumin Level 3.2 Low 3.5-5.7 g/dL LAB GLOB Globulin 3.4 g/dL LAB AGRATIO Albumin/Globulin Ratio 0.9 LAB BILIT Bilirubin,Total 3.4 High 0.3-1.0 mg/dL Result Comment: Samples from patients who have taken Naproxen have shown spurious elevation in Total Bilirubin levels. A metabolite of Naproxen, O-desmethylnaproxen, has been shown to interfere with the Harlan-Uriel method for measuring Total Bilirubin. LAB AST Aspartate Amino Transferase 102 High 13-39 U/L LAB ALT Alanine Aminotransferase 101 High 7-52 U/L LAB ALP Alkaline Phosphatase 319 High 34-104 U/L Performed By: #### MG, CBC, TACROLIMUS., CMP #### [facility] [address] MAGNESIUM Collected: 5 10:49 AM Status: F Source: [facility] TYPE CODE TESTS RESULT OUT OF RANGE REFERENCE UNITS LAB MG Magnesium 1.5 Low 1.9-2.7 mg/dL Result Comment: PERFORMED BY : [facility] [address] [place] [address] PATHOLOGIST [employer] PERSON XI COLON M.D. Performed By: #### MG, CBC, TACROLIMUS., CMP #### [facility] [address] [place] [id number] [facility] TACROLIMUS (TRANSPLANT) NO CHG Collected: 01/31/2025 10:49 AM Status: F Source: [facility] TYPE CODE TESTS RESULT OUT OF RANGE REFERENCE UNITS LAB TACROLIMUS. Tacrolimus (Transplant) No Chg Sent to Ref Lab Result Comment: PERFORMED BY : [place] [address] PATHOLOGIST [employer] PERSON XI COLON M.D. Performed By: #### MG, CBC, TACROLIMUS., CMP #### [place] [id number] [facility] TACROLIMUS Collected: 10:49 AM Status: F Source: [facility] Order Comment: NOTE: Result was obtained using a chemiluminescent microparticle immunoassay (CMIA) on the Appeals Referee i system. Optimal therapeutic ranges for immunosuppressant drugs depend upon an individual patient's current clinical state, type of organ transplant, time post-transplant, co-administration of other immunosuppressants, and other clinical factors. The results of this test should be correlated with additional clinical and laboratory data before changes in treatment regimens are made. TYPE CODE TESTS RESULT OUT OF RANGE REFERENCE UNITS LAB 84081-6(LOINC) Tacrolimus 8.8 <=15.0 ng/mL Performed By: #### [id number] # ### NORMA Cherry ([id number]) [facility] ([facility]) [id number] [place] [address] US LIVER WITH DOPPLER Observed: 01/10/20 10:35 AM Status: F Source: [facility] Interpreted By: Farooq Perez and Ritchie Brandon STUDY: US LIVER WITH DOPPLER; 01/09/2025 1:25 pm INDICATION: Signs/Symptoms:s/p liver transplant, elevated LFT's, follow up for stability.. ,Z94.4 Liver transplant status,T86.90 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,R79.89 Other specified abnormal findings of blood chemistry COMPARISON: Ultrasound of the liver 01/23/2024. ACCESSION NUMBER(S): [id number] ORDERING CLINICIAN: SHARAN AYOUB TECHNIQUE: Multiple images of the right upper quadrant were obtained. Perrin scale, color Doppler and spectral Doppler waveform analysis was performed. This examination was interpreted at [facility]. FINDINGS: LIVER: The liver measures 12.2 cm and is grossly unremarkable and no focal lesions were visualized . GALLBLADDER: The gallbladder is surgically absent. BILIARY SYSTEM: No evidence of intra or extrahepatic biliary dilatation is identified; the common bile duct measures 0.2 cm. DOPPLER EVALUATION: HEPATIC ARTERIES: Hepatic artery and its right and left branches RI's are estimated at 0.64, 0.51 and 0.56, respectively. PORTAL VEIN: Portal vein is patent and measures 1.0 cm. There is normal respiratory variation. Portal vein velocities are calculated as follows: main portal vein 21.9 cm/s, antegrade flow; left portal vein branch 17.0 cm/s, antegrade flow; right portal vein anterior branch 21.1 cm/s, antegrade flow; right portal vein posterior branch 19.7 cm/s, antegrade flow. The splenic vein is also patent. HEPATIC VEIN: The right, middle and left hepatic veins are patent and demonstrate triphasic antegrade flow. IVC appears also patent. PANCREAS: The visualized pancreas is unremarkable in appearance. RIGHT KIDNEY: The right kidney measures 10.8 cm in length. There are few hyperechoic nonobstructive intrarenal calculi present within the right kidney that exhibits twinkle artifact, the largest measuring up to 0.7 cm, which was also present on prior exam from 01/23/2024. SPLEEN: The spleen measures 11.6 cm and is grossly unremarkable. Note is made of an accessory splenule. PERITONEUM AND RETROPERITONEUM: There is trace amount of abdominopelvic/perihepatic ascites noted. IMPRESSION: 1. Unremarkable ultrasound of the liver including Doppler interrogation. 2. Trace amount of nonspecific perihepatic/abdominopelvic ascites. 3. Nonobstructive intrarenal calculi of the right kidney. I personally reviewed the images/study and I agree with the findings as stated by resident Willi Valles. This study was interpreted at [facility], [place], [place]. MACRO: None Signed by: Farooq Fleming 01/09/2025 9:08 PM Dictation workstation: [id number] TACROLIMUS Collected: 1:04 PM Status: F Source: [facility] Order Comment: NOTE: Result was obtained using a chemiluminescent microparticle immunoassay (CMIA) on the Appeals Referee i system. Optimal therapeutic ranges for immunosuppressant drugs depend upon an individual patient's current clinical state, type of organ transplant, time post-transplant, co-administration of other immunosuppressants, and other clinical factors. The results of this test should be correlated with additional clinical and laboratory data before changes in treatment regimens are made. TYPE CODE TESTS RESULT OUT OF RANGE REFERENCE UNITS LAB 25627-9([facility]) Tacrolimus 9.2 <=15.0 ng/mL Performed By: #### [id number] # ### NORMA Cherry ([id number]) [facility] ([facility]) [address] [place] [address] COMPLETE BLOOD COUNT AUTO DIFF Collected: 11/05/2024 1:04 PM Status: F Source: F [facility] TYPE CODE TESTS RESULT OUT OF RANGE REFERENCE UNITS LAB WBC White Blood Count 13.6 High 4.1-10.5 10*3/uL LAB UNWBC Uncorrected WBC 13.6 High 4.1-10.5 10*3/uL LAB RBC Red Blood Count 5.06 Normal 3.90-5.60 10*6/u L LAB HGB Hemoglobin 15.5 Normal 13.0-17.0 g/dL LAB HCT Hematocrit 46.4 Normal 38.8-50.0 % LAB MCV Mean Corpuscular Volume 91.6 Normal 83.5-101 fL LAB MCH Mean Corpuscular Hemoglobin 30.6 Normal 27.5-35.2 pg LAB MCHC Mean Corpuscular HGB Conc 33.4 Normal 32.5-35.6 g/dL LAB RDW Red Cell Distribution Width 15.6 High 12.0-14.8 % LAB PLT Platelet Count 166 Normal 150-450 10*3/uL LAB MPV Mean Platelet Volume 11.1 High 6.6-10.1 fL LAB NE% Neutrophils % (Auto) 70.1 . % LAB LY% Lymphocytes % (Auto) 20.9 . % LAB MO% Monocytes % (Auto) 7.1 . % LAB EO% Eosinophils % (Auto) 1.1 . % LAB BA% Basophils % (Auto) 0.8 . % LAB NRBC% NRBC% 0.2 Normal 0-0.5 /100{WBC} LAB NE# Neutrophils # (Auto) 9.5 High 1.8-7.7 10*3/uL LAB LY# Lymphocytes # (Auto) 2.8 Normal 1.00-4.8 10*3/uL LAB MO# Monocytes # (Auto) 1.0 High 0.0-0.8 10*3/uL LAB EO# Eosinophils # (Auto) 0.2 Normal 0.0-0.45 10*3/uL LAB BA# Basophils # (Auto) 0.1 Normal 0.0-0.2 10*3/uL Result Comment: PERFORMED BY : [place] [address] PATHOLOGIST [employer] P[employer] XI COLON M.D. Performed By: #### CBC, CMP, TACROLIMUS. #### [facility] [address] [place] [address] COMPREHENSIVE METABOLIC PANEL Collected: 11/05/2024 1 :04 PM Status: F Source: [facility] TYPE CODE TESTS RESULT OUT OF RANGE REFERENCE UNITS LAB GLU Glucose 187 High 70-100 mg/dL Result Comment: Random Gluco se Reference Range is dependent on time and content of last meal. Glucose of more than 200 mg/dL in a nonstressed, ambulatory subject supports the diagnosis of Diabetes Mellitus. ADA recommended reference range LAB BUN Blood Urea Nitrogen 18 Normal 7-25 mg/d L LAB CREATT Creatinine 1.03 Normal 0.70-1.30 mg/dL LAB GFReNR Estimated GFR >60.0 mL/Min LAB NA Sodium 139 Normal 136-145 mmol/L LAB K Potassium 3.3 Low 3.5-5.1 mmol/L LAB CL Chloride 101 Normal 98-107 mmol/L LAB CO2 Carbon Dioxide 32.6 High 21.0-31.0 mmol/L LAB GAP Anion Gap 8.7 Normal 6.0-15.0 meq/L LAB CA Calcium 9.4 Normal 8.6-10.3 mg/dL LAB TP Total Protein 7.1 Normal 6.4-8.9 g/dL LAB ALB Albumin Level 3.6 Normal 3.5-5.7 g/dL LAB GLOB Globulin 3.5 g/dL LAB AGRATIO Albumin/Globulin Ratio 1.0 LAB BILIT Bilirubin,Total 2.9 High 0.3-1.0 mg/dL Result Comment: Samples from patients who have taken Naproxen have shown spurious elevation in Total Bilirubin levels. A metabolite of Naproxen, O-desmethylnaproxen, has been shown to interfere with the Jenlatriciaik-Grodeisy method for measuring Total Bilirubin. LAB AST Aspartate Amino Transferase 71 High 13-39 U/L LAB ALT Alanine Aminotransferase 90 High 7-52 U/L LAB ALP Alkaline Phosphatase 374 High 34-104 U/L Result Comment: PERFORMED BY : [place] [address] PATHOLOGIST [employer] P[employer] XI COLON M.D. Performed By: #### CBC, CMP, TACROLIMUS. #### [place] [id number] [facility] TACROLIMUS (TRANSPLANT) NO CHG Collected: 11/05/2024 1:04 PM Status: F Source: [facility] TYPE CODE TESTS RESULT OUT OF RANGE REFERENCE UNITS LAB TACROLIMUS. Tacrolimus (Transplant) No Chg Sent to Ref Lab Result Comment: PERFORMED BY : [place] [address] PATHOLOGIST [employer] PERSON XI COLON M.D. Performed By: #### CBC, CMP, TACROLIMUS. #### [facility] [address] [place], [place] [id number] [facility] COMPLETE BLOOD COUNT AUTO DIFF Collected: 10/10/2024 1:16 PM Status: F Source: F [facility] TYPE CODE TESTS RESULT OUT OF RANGE REFERENCE UNITS LAB WBC White Blood Count 13.1 High 4.1-10.5 10*3/uL LAB UNWBC Uncorrected WBC 13.1 High 4.1-10.5 10*3/uL LAB RBC Red Blood Count 4.78 Normal 3.90-5.60 10*6/u L LAB HGB Hemoglobin 14.6 Normal 13.0-17.0 g/dL LAB HCT Hematocrit 43.2 Normal 38.8-50.0 % LAB MCV Mean Corpuscular Volume 90.4 Normal 83.5-101 fL LAB MCH Mean Corpuscular Hemoglobin 30.5 Normal 27.5-35.2 pg LAB MCHC Mean Corpuscular HGB Conc 33.7 Normal 32.5-35.6 g/dL LAB RDW Red Cell Distribution Width 15.6 High 12.0-14.8 % LAB PLT Platelet Count 217 Normal 150-450 10*3/uL LAB MPV Mean Platelet Volume 10.7 High 6.6-10.1 fL LAB NE% Neutrophils % (Auto) 65.0 . % LAB LY% Lymphocytes % (Auto) 25.4 . % LAB MO% Monocytes % (Auto) 8.4 . % LAB EO% Eosinophils % (Auto) 0.6 . % LAB BA% Basophils % (Auto) 0.6 . % LAB NRBC% NRBC% 0.2 Normal 0-0.5 /100{WBC} LAB NE# Neutrophils # (Auto) 8.5 High 1.8-7.7 10*3/uL LAB LY# Lymphocytes # (Auto) 3.3 Normal 1.00-4.8 10*3/uL LAB MO# Monocytes # (Auto) 1.1 High 0.0-0.8 10*3/uL LAB EO# Eosinophils # (Auto) 0.1 Normal 0.0-0.45 10*3/uL LAB BA# Basophils # (Auto) 0.1 Normal 0.0-0.2 10*3/uL Result Comment: PERFORMED BY : [place] [address] PATHOLOGIST [employer] PERSON XI COLON M.D. Performed By: #### CMP, TACR OLIMUS., CBC #### [address] COMPREHENSIVE METABOLIC PANEL Collected: 10/10/2024 1 :16 PM Status: F Source: [facility] TYPE CODE TESTS RESULT OUT OF RANGE REFERENCE UNITS LAB GLU Glucose 184 High 70-100 mg/dL Result Comment: Random Gluco se Reference Range is dependent on time and content of last meal. Glucose of more than 200 mg/dL in a nonstressed, ambulatory subject supports the diagnosis of Diabetes Mellitus. ADA recommended reference range LAB BUN Blood Urea Nitrogen 21 Normal 7-25 mg/d L LAB CREATT Creatinine 1.13 Normal 0.70-1.30 mg/dL LAB GFReNR Estimated GFR >60.0 mL/Min LAB NA Sodium 140 Normal 136-145 mmol/L LAB K Potassium 3.2 Low 3.5-5.1 mmol/L LAB CL Chloride 100 Normal 98-107 mmol/L LAB CO2 Carbon Dioxide 30.7 Normal 21.0-31.0 mmol/L LAB GAP Anion Gap 12.5 Normal 6.0-15.0 meq/L LAB CA Calcium 9.5 Normal 8.6-10.3 mg/dL LAB TP Total Protein 6.8 Normal 6.4-8.9 g/dL LAB ALB Albumin Level 3.5 Normal 3.5-5.7 g/dL LAB GLOB Globulin 3.3 g/dL LAB AGRATIO Albumin/Globulin Ratio 1.1 LAB BILIT Bilirubin,Total 3.9 High 0.3-1.0 mg/dL Result Comment: Samples from patients who have taken Naproxen have shown spurious elevation in Total Bilirubin levels. A metabolite of Naproxen, O-desmethylnaproxen, has been shown to interfere with the Harlan-Uriel method for measuring Total Bilirubin. LAB AST Aspartate Amino Transferase 72 High 13-39 U/L LAB ALT Alanine Aminotransferase 89 High 7-52 U/L LAB ALP Alkaline Phosphatase 342 High 34-104 U/L Result Comment: PERFORMED BY : [place] [address] PATHOLOGIST [employer] PERSON XI COLON M.D. Performed By: #### DOUG, MELANYR OLIMUS., CBC #### [address] TACROLIMUS (TRANSPLANT) NO CHG Collected: 10/10/2024 1:16 PM Status: F Source: [facility] TYPE CODE TESTS RESULT OUT OF RANGE REFERENCE UNITS LAB TACROLIMUS. Tacrolimus (Transplant) No Chg Sent to Ref Lab Result Comment: PERFORMED BY : [place] [address] PATHOLOGIST [employer] PERSON XI COLON M.D. Performed By: #### CMP, TACR OLIMUS., CBC #### [address] [address] [facility] TACROLIMUS Collected: 1:16 PM Status: F Source: [facility] Order Comment: NOTE: Result was obtained using a chemiluminescent microparticle immunoassay (CMIA) on the Appeals Referee i system. Optimal therapeutic ranges for immunosuppressant drugs depend upon an individual patient's current clinical state, type of organ transplant, time post-transplant, co-administration of other immunosuppressants, and other clinical factors. The results of this test should be correlated with additional clinical and laboratory data before changes in treatment regimens are made. TYPE CODE TESTS RESULT OUT OF RANGE REFERENCE UNITS LAB 45450-4([facility]) Tacrolimus 7.3 <=15.0 ng/mL Performed By: #### [id number] # ### NORMA Cherry ([id number]) [facility] ([facility]) [address] [place] [address] COMPLETE BLOOD COUNT AUTO DIFF Collected: 09/09/2024 7:46 AM Status: F Source: F [facility] TYPE CODE TESTS RESULT OUT OF RANGE REFERENCE UNITS LAB WBC White Blood Count 9.6 Normal 4.1-10.5 10*3/uL LAB UNWBC Uncorrected WBC 9.6 Normal 4.1-10.5 10*3/uL LAB RBC Red Blood Count 4.43 Normal 3.90-5.60 10*6/u L LAB HGB Hemoglobin 13.5 Normal 13.0-17.0 g/dL LAB HCT Hematocrit 40.9 Normal 38.8-50.0 % LAB MCV Mean Corpuscular Volume 92.1 Normal 83.5-101 fL LAB MCH Mean Corpuscular Hemoglobin 30.3 Normal 27.5-35.2 pg LAB MCHC Mean Corpuscular HGB Conc 32.9 Normal 32.5-35.6 g/dL LAB RDW Red Cell Distribution Width 15.3 High 12.0-14.8 % LAB PLT Platelet Count 126 Low 150-450 10*3/uL LAB MPV Mean Platelet Volume 10.7 High 6.6-10.1 fL LAB NE% Neutrophils % (Auto) 72.6 . % LAB LY% Lymphocytes % (Auto) 19.3 . % LAB MO% Monocytes % (Auto) 6.4 . % LAB EO% Eosinophils % (Auto) 0.5 . % LAB BA% Basophils % (Auto) 1.2 . % LAB NRBC% NRBC% 0.0 Normal 0-0.5 /100{WBC} LAB NE# Neutrophils # (Auto) 7.0 Normal 1.8-7.7 10*3/uL LAB LY# Lymphocytes # (Auto) 1.8 Normal 1.00-4.8 10*3/uL LAB MO# Monocytes # (Auto) 0.6 Normal 0.0-0.8 10*3/uL LAB EO# Eosinophils # (Auto) 0.0 Normal 0.0-0.45 10*3/uL LAB BA# Basophils # (Auto) 0.1 Normal 0.0-0.2 10*3/uL Result Comment: PERFORMED BY : [place] [address] PATHOLOGIST [employer] PERSON XI COLON M.D. Performed By: #### EBV TRANS PLANT, TACROLIMUS., CMV TRANSPLANT, CBC, MG, CMP #### [facility] [address] [place] [address] COMPREHENSIVE METABOLIC PANEL Collected: 09/09/2024 7 :46 AM Status: F Source: [facility] TYPE CODE TESTS RESULT OUT OF RANGE REFERENCE UNITS LAB GLU Glucose 461 High 70-100 mg/dL Result Comment: Random Gluco se Reference Range is dependent on time and content of last meal. Glucose of more than 200 mg/dL in a nonstressed, ambulatory subject supports the diagnosis of Diabetes Mellitus. ADA recommended reference range LAB BUN Blood Urea Nitrogen 16 Normal 7-25 mg/d L LAB CREATT Creatinine 0.92 Normal 0.70-1.30 mg/dL LAB GFReNR Estimated GFR >60.0 mL/Min LAB NA Sodium 135 Low 136-145 mmol/L LAB K Potassium 3.9 Normal 3.5-5.1 mmol/L LAB CL Chloride 98 Normal 98-107 mmol/L LAB CO2 Carbon Dioxide 31.7 High 21.0-31.0 mmol/L LAB GAP Anion Gap 9.2 Normal 6.0-15.0 meq/L LAB CA Calcium 8.5 Low 8.6-10.3 mg/dL LAB TP Total Protein 6.1 Low 6.4-8.9 g/dL LAB ALB Albumin Level 3.0 Low 3.5-5.7 g/dL LAB GLOB Globulin 3.1 g/dL LAB AGRATIO Albumin/Globulin Ratio 1.0 LAB BILIT Bilirubin,Total 2.7 High 0.3-1.0 mg/dL Result Comment: Samples from patients who have taken Naproxen have shown spurious elevation in Total Bilirubin levels. A metabolite of Naproxen, O-desmethylnaproxen, has been shown to interfere with the Jendrcarmitaik-Grof method for measuring Total Bilirubin. LAB AST Aspartate Amino Transferase 76 High 13-39 U/L LAB ALT Alanine Aminotransferase 94 High 7-52 U/L LAB ALP Alkaline Phosphatase 246 High 34-104 U/L Performed By: #### EBV TRANS PLANT, TACROLIMUS., CMV TRANSPLANT, CBC, MG, CMP #### [address] MAGNESIUM Collected: 7:46 AM Status: F Source: [facility] TYPE CODE TESTS RESULT OUT OF RANGE REFERENCE UNITS LAB MG Magnesium 1.4 Low 1.9-2.7 mg/dL Result Comment: PERFORMED BY : [place] [address] PATHOLOGIST [employer] PERSON XI COLON M.D. Performed By: #### EBV TRANS PLANT, TACROLIMUS., CMV TRANSPLANT, CBC, MG, CMP #### [address] EBV TRANSPLANT Collected: 09/09/2024 7:46 AM Status: F Source: [facility] TYPE CODE TESTS RESULT OUT OF RANGE REFERENCE UNITS LAB EBV TRANSPLANT EBV Transplant Sent to Performed By: #### EBV TRANS PLANT, TACROLIMUS., CMV TRANSPLANT, CBC, MG, CMP #### [address] CMV TRANSPLANT Collected: 09/09/2024 7:46 AM Status: F Source: [facility] TYPE CODE TESTS RESULT OUT OF RANGE REFERENCE UNITS LAB CMV TRANSPLANT CMV Transplant Sent to [facility] Performed By: #### EBV TRANS PLANT, TACROLIMUS., CMV TRANSPLANT, CBC, MG, CMP #### [address] TACROLIMUS (TRANSPLANT) NO CHG Collected: 09/09/2024 7:46 AM Status: F Source: [facility] TYPE CODE TESTS RESULT OUT OF RANGE REFERENCE UNITS LAB TACROLIMUS. Tacrolimus (Transplant) No Chg Sent to Ref Lab Result Comment: PERFORMED BY : [facility] [address] [place] [address] PATHOLOGIST [employer] PERSON XI COLON M.D. Performed By: #### EBV TRANS PLANT, TACROLIMUS., CMV TRANSPLANT, CBC, MG, CMP #### [facility] [address] COMPLETE BLOOD COUNT W AUTO DIFFERENTIAL PANEL Collected: 09/09/2024 7:46 AM Status: F Source: [facility] TYPE CODE TESTS RESULT OUT OF RANGE REFERENCE UNITS LAB 6690-2(LOINC) Leukocytes 9.8 4.4-11.3 x10*3/ uL LAB 24217-0(LOINC ) Erythrocytes.nuc leated/100 leukocytes 0.0 0.0-0.0 /100 WBCs LAB 789-8(LOINC) Erythrocytes 4.38 Low 4.50-5.90 x10* 6/uL LAB 718-7(LOINC) Hemoglobin 13.4 Low 13.5-17.5 g/dL LAB 4544-3(LOINC) Hematocrit 40.8 Low 41.0-52.0 % LAB 787-2(LOINC) Erythrocyte mean corpuscular volume 93 80-100 fL LAB 785-6(LOINC) Erythrocyte mean corpuscular hemoglobin 30.6 26.0-34.0 pg LAB 786-4(LOINC) Erythrocyte mean corpuscular hemoglobin concentration 32.8 32.0-36.0 g/dL LAB 788-0(LOINC) Erythrocyte distribution width 13.9 11.5-14.5 % LAB 777-3(LOINC) Platelets 129 Low 150-450 x10*3/uL LAB 770-8(LOINC) Neutrophils/100 leukocytes 72.9 40.0-80.0 % LAB 50688-9(LOINC ) Granulocytes.imm ature/100 leukocytes 0.6 0.0-0.9 % Result Comment: Immature Gra nulocyte Count (IG) includes promyelocytes, myelocytes and metamyelocytes but does not include bands. Percent differential counts (%) should be interpreted in the context of the absolute cell counts (cells/UL). LAB 736-9(LOINC) Lymphocytes/100 leukocytes 19.5 13.0-44.0 % LAB 5905-5(LOINC) Monocytes/100 leukocytes 6.4 2.0-10.0 % LAB 713-8(LOINC) Eosinophils/100 leukocytes 0.4 0.0-6.0 % LAB 706-2(LOINC) Basophils/100 leukocytes 0.2 0.0-2.0 % LAB 751-8(LOINC) Neutrophils 7.12 1.20-7.70 x10*3 /uL Result Comment: Percent diff erential counts (%) should be interpreted in the context of the absolute cell counts (cells/uL). LAB 94430-0(LOINC ) Granulocytes.imm ature 0.06 0.00-0.70 x10*3/uL LAB 731-0(LOINC) Lymphocytes 1.91 1.20-4.80 x10*3 /uL LAB 742-7(LOINC) Monocytes 0.63 0.10-1.00 x10*3/u L LAB 711-2(LOINC) Eosinophils 0.04 0.00-0.70 x10*3 /uL LAB 704-7(LOINC) Basophils 0.02 0.00-0.10 x10*3/u L Performed By: #### [id number] # ### NORMA Cherry ([id number]) [facility] ([facility]) [address] [place] [address] TACROLIMUS Collected: 4 7:46 AM Status: F Source: [facility] Order Comment: NOTE: Result was obtained using a chemiluminescent microparticle immunoassay (CMIA) on the Appeals Referee i system. Optimal therapeutic ranges for immunosuppressant drugs depend upon an individual patient's current clinical state, type of organ transplant, time post-transplant, co-administration of other immunosuppressants, and other clinical factors. The results of this test should be correlated with additional clinical and laboratory data before changes in treatment regimens are made. TYPE CODE TESTS RESULT OUT OF RANGE REFERENCE UNITS LAB 69896-9(LOINC) Tacrolimus 9.4 <=15.0 ng/mL Performed By: #### 57981-5 # ### NORMA Cherry ([id number]) [facility] ([facility]) [address] [place] [address] ISAAC COUCH VIRUS DNA Collected: 09/09 7:46 AM Status: F Source: [facility] Order Comment: Reportable Ra nge: 35-100,000,000 IU/mL. The yu EBV test is an in vitro nucleic acid amplification dual target assay for the quantitation of Isaac-Couch virus (EBV) DNA in human EDTA plasma on the yu [employer]. The test employs a dual target [...] the Molecular Diagnostic Laboratory, Department of Pathology, [facility]. TYPE CODE TESTS RESULT OUT OF RANGE REFERENCE UNITS LAB EBPIU EBV PCR, QUANT, PLASMA 66 High Not Detected IU/mL LAB EBVDNAR EBV DNA RESULT Detected Abnormal Not Detected LAB EBPIL EBV PCR PLASMA LOG IU/ML 1.82 Log IU/mL Performed By: #### 59532-8 # ### NORMA Cherry ([id number]) [facility] ([facility]) [address] [place] [address] CYTOMEGALOVIRUS DNA Collected: 09/09/2024 7:[address] atus: F Source: [facility] Order Comment: Reportable Ra nge: 35-10,000,000 IU/mL. The yu CMV test is [...] the [facility] Diagnostic Laboratory, Department of Pathology, [facility]. TYPE CODE TESTS RESULT OUT OF RANGE REFERENCE UNITS LAB CMVIL CYTOMEGALOVIRUS DNA, PCR LOG IU/ML Result Comment: Not calculat ed LAB CMVDNAR CMV DNA RESULT Not Detected No t Detected Performed By: #### 30924-0 # ### NORMA Cherry ([id number]) [facility] ([facility]) [address] [place] [address] COMPLETE BLOOD COUNT AUTO DIFF Collected: 08/15/2024 7:21 AM Status: F Source: F [facility] TYPE CODE TESTS RESULT OUT OF RANGE REFERENCE UNITS LAB WBC White Blood Count 10.4 Normal 4.1-10.5 10*3/uL LAB UNWBC Uncorrected WBC 10.4 Normal 4.1-10.5 10*3/uL LAB RBC Red Blood Count 4.45 Normal 3.90-5.60 10*6/u L LAB HGB Hemoglobin 13.8 Normal 13.0-17.0 g/dL LAB HCT Hematocrit 40.7 Normal 38.8-50.0 % LAB MCV Mean Corpuscular Volume 91.4 Normal 83.5-101 fL LAB MCH Mean Corpuscular Hemoglobin 31.1 Normal 27.5-35.2 pg LAB MCHC Mean Corpuscular HGB Conc 34.0 Normal 32.5-35.6 g/dL LAB RDW Red Cell Distribution Width 14.9 High 12.0-14.8 % LAB PLT Platelet Count 152 Normal 150-450 10*3/uL LAB MPV Mean Platelet Volume 10.9 High 6.6-10.1 fL LAB NE% Neutrophils % (Auto) 72.0 . % LAB LY% Lymphocytes % (Auto) 19.8 . % LAB MO% Monocytes % (Auto) 7.2 . % LAB EO% Eosinophils % (Auto) 0.5 . % LAB BA% Basophils % (Auto) 0.5 . % LAB NRBC% NRBC% 0.2 Normal 0-0.5 /100{WBC} LAB NE# Neutrophils # (Auto) 7.5 Normal 1.8-7.7 10*3/uL LAB LY# Lymphocytes # (Auto) 2.1 Normal 1.00-4.8 10*3/uL LAB MO# Monocytes # (Auto) 0.8 Normal 0.0-0.8 10*3/uL LAB EO# Eosinophils # (Auto) 0.1 Normal 0.0-0.45 10*3/uL LAB BA# Basophils # (Auto) 0.1 Normal 0.0-0.2 10*3/uL Result Comment: PERFORMED BY : [place] [address] PATHOLOGIST [employer] PERSON XI COLON M.D. Performed By: #### OSCAR Puri, CBC, CMP #### [address] [address] [facility] COMPREHENSIVE METABOLIC PANEL Collected: 08/15/2024 7 :21 AM Status: F Source: [facility] TYPE CODE TESTS RESULT OUT OF RANGE REFERENCE UNITS LAB GLU Glucose 152 High 70-100 mg/dL Result Comment: Random Gluco se Reference Range is dependent on time and content of last meal. Glucose of more than 200 mg/dL in a nonstressed, ambulatory subject supports the diagnosis of Diabetes Mellitus. ADA recommended reference range LAB BUN Blood Urea Nitrogen 17 Normal 7-25 mg/d L LAB CREATT Creatinine 0.99 Normal 0.70-1.30 mg/dL LAB GFReNR Estimated GFR >60.0 mL/Min LAB NA Sodium 141 Normal 136-145 mmol/L LAB K Potassium 3.3 Low 3.5-5.1 mmol/L LAB CL Chloride 102 Normal 98-107 mmol/L LAB CO2 Carbon Dioxide 32.0 High 21.0-31.0 mmol/L LAB GAP Anion Gap 10.3 Normal 6.0-15.0 meq/L LAB CA Calcium 8.8 Normal 8.6-10.3 mg/dL LAB TP Total Protein 6.0 Low 6.4-8.9 g/dL LAB ALB Albumin Level 3.1 Low 3.5-5.7 g/dL LAB GLOB Globulin 2.9 g/dL LAB AGRATIO Albumin/Globulin Ratio 1.1 LAB BILIT Bilirubin,Total 3.0 High 0.3-1.0 mg/dL Result Comment: Samples from patients who have taken Naproxen have shown spurious elevation in Total Bilirubin levels. A metabolite of Naproxen, O-desmethylnaproxen, has been shown to interfere with the Harlan-Uriel method for measuring Total Bilirubin. LAB AST Aspartate Amino Transferase 84 High 13-39 U/L LAB ALT Alanine Aminotransferase 86 High 7-52 U/L LAB ALP Alkaline Phosphatase 254 High 34-104 U/L Result Comment: PERFORMED BY : [place] [address] PATHOLOGIST [employer] PERSON XI COLON M.D. Performed By: #### OSCAR Puri CBC, CMP #### [address] TACROLIMUS (TRANSPLANT) NO CHG Collected: 08/15/2024 7:21 AM Status: F Source: [facility] TYPE CODE TESTS RESULT OUT OF RANGE REFERENCE UNITS LAB TACROLIMUS. Tacrolimus (Transplant) No Chg Sent to Ref Lab Result Comment: PERFORMED BY : [facility] [address] [place] [address] PATHOLOGIST [employer] PERSON XI COLON M.D. Performed By: #### OSCAR Puri, CBC, CMP #### [facility] [address] [place] [id number] [facility] TACROLIMUS Collected: 7:21 AM Status: F Source: [facility] Order Comment: NOTE: Result was obtained using a chemiluminescent microparticle immunoassay (CMIA) on the Appeals Referee i system. Optimal therapeutic ranges for immunosuppressant drugs depend upon an individual patient's current clinical state, type of organ transplant, time post-transplant, co-administration of other immunosuppressants, and other clinical factors. The results of this test should be correlated with additional clinical and laboratory data before changes in treatment regimens are made. TYPE CODE TESTS RESULT OUT OF RANGE REFERENCE UNITS LAB 71584-5([facility]) Tacrolimus 7.4 <=15.0 ng/mL Performed By: #### [id number] # ### NORMA Cherry ([id number]) [facility] ([facility]) [address] [place] [address] COMPLETE BLOOD COUNT AUTO DIFF Collected: 07/01/2024 11:45 AM Status: F Source: [facility] TYPE CODE TESTS RESULT OUT OF RANGE REFERENCE UNITS LAB WBC White Blood Count 10.5 Normal 4.1-10.5 10*3/uL LAB UNWBC Uncorrected WBC 10.5 Normal 4.1-10.5 10*3/uL LAB RBC Red Blood Count 4.44 Normal 3.90-5.60 LAB HGB Hemoglobin 14.0 Normal 13.0-17.0 g/dL LAB HCT Hematocrit 41.5 Normal 38.8-50.0 % LAB MCV Mean Corpuscular Volume 93.6 Normal 83.5-101 fL LAB MCH Mean Corpuscular Hemoglobin 31.4 Normal 27.5-35.2 pg LAB MCHC Mean Corpuscular HGB Conc 33.6 Normal 32.5-35.6 g/dL LAB RDW Red Cell Distribution Width 15.9 High 12.0-14.8 % LAB PLT Platelet Count 158 Normal 150-450 10*3/uL LAB MPV Mean Platelet Volume 11.3 High 6.6-10.1 fL LAB NE% Neutrophils % (Auto) 66.5 . % LAB LY% Lymphocytes % (Auto) 24.6 . % LAB MO% Monocytes % (Auto) 7.4 . % LAB EO% Eosinophils % (Auto) 0.9 . % LAB BA% Basophils % (Auto) 0.6 . % LAB NRBC% NRBC% 0.1 Normal 0-0.5 /100{WBC} LAB NE# Neutrophils # (Auto) 7.0 Normal 1.8-7.7 10*3/uL LAB LY# Lymphocytes # (Auto) 2.6 Normal 1.00-4.8 10*3/uL LAB MO# Monocytes # (Auto) 0.8 Normal 0.0-0.8 10*3/uL LAB EO# Eosinophils # (Auto) 0.1 Normal 0.0-0.45 10*3/uL LAB BA# Basophils # (Auto) 0.1 Normal 0.0-0.2 10*3/uL Result Comment: PERFORMED BY : [place] [address] PATHOLOGIST [employer] PERSON MISAEL FOX M.D. Performed By: #### CMP, TACR OLEDMUND., CBC #### [address] COMPREHENSIVE METABOLIC PANEL Collected: 07/01/2024 1 1:45 AM Status: F Source: [facility] TYPE CODE TESTS RESULT OUT OF RANGE REFERENCE UNITS LAB GLU Glucose 228 High 70-100 mg/dL Result Comment: Random Gluco se Reference Range is dependent on time and content of last meal. Glucose of more than 200 mg/dL in a nonstressed, ambulatory subject supports the diagnosis of Diabetes Mellitus. ADA recommended reference range LAB BUN Blood Urea Nitrogen 15 Normal 7-25 mg/d L LAB CREATT Creatinine 0.98 Normal 0.70-1.30 mg/dL LAB GFReNR Estimated GFR > 60.0 LAB NA Sodium 140 Normal 136-145 mmol/L LAB K Potassium 3.4 Low 3.5-5.1 mmol/L LAB CL Chloride 101 Normal 98-107 mmol/L LAB CO2 Carbon Dioxide 32.6 High 21.0-31.0 mmol/L LAB GAP Anion Gap 9.8 Normal 6.0-15.0 LAB CA Calcium 8.6 Normal 8.6-10.3 mg/dL LAB TP Total Protein 6.0 Low 6.4-8.9 g/dL LAB ALB Albumin Level 3.1 Low 3.5-5.7 g/dL LAB GLOB Globulin 2.9 g/dL LAB AGRATIO Albumin/Globulin Ratio 1.1 LAB BILIT Bilirubin,Total 3.4 High 0.3-1.0 mg/dL Result Comment: Samples fro m patients who have taken Naproxen have shown spurious elevation in Total Bilirubin levels. A metabolite of Naproxen, O-desmethylnaproxen, has been shown to interfere with the Harlan-Uriel method for measuring Total Bilirubin. LAB AST Aspartate Amino Transferase 88 High 13-39 U/L LAB ALT Alanine Aminotransferase 95 High 7-52 U/L LAB ALP Alkaline Phosphatase 220 High 34-104 U/L Result Comment: PERFORMED BY : [place] [address] PATHOLOGIST [employer] PERSON MISAEL FOX M.D. Performed By: #### CMP, TACR OLIMUS., CBC #### [address] TACROLIMUS (TRANSPLANT) NO CHG Collected: 07/01/2024 11:45 AM Status: F Source: [facility] TYPE CODE TESTS RESULT OUT OF RANGE REFERENCE UNITS LAB TACROLIMUS. Tacrolimus (Transplant) No Chg Sent to Ref Lab Result Comment: PERFORMED BY : [place] [address] PATHOLOGIST [employer] PERSON MISAEL FOX M.D. Performed By: #### CMP, TACR OLIMUS., CBC #### [address] TACROLIMUS Collected: 11:45 AM Status: F Source: [facility] Order Comment: NOTE: Result was obtained using a chemiluminescent microparticle immunoassay (CMIA) on the Appeals Referee i system. Optimal therapeutic ranges for immunosuppressant drugs depend upon an individual patient's current clinical state, type of organ transplant, time post-transplant, co-administration of other immunosuppressants, and other clinical factors. The results of this test should be correlated with additional clinical and laboratory data before changes in treatment regimens are made. TYPE CODE TESTS RESULT OUT OF RANGE REFERENCE UNITS LAB 21829-4([facility]) Tacrolimus 8.5 <=15.0 ng/mL Performed By: #### [id number] # ### NORMA Cherry ([id number]) [facility] ([facility]) [address] [place] [address] COMPLETE BLOOD COUNT AUTO DIFF Collected: 05/13/2024 11:07 AM Status: F Source: [facility] TYPE CODE TESTS RESULT OUT OF RANGE REFERENCE UNITS LAB WBC White Blood Count 9.1 Normal 4.1-10.5 10*3/uL LAB UNWBC Uncorrected WBC 9.1 Normal 4.1-10.5 10*3/uL LAB RBC Red Blood Count 4.67 Normal 3.90-5.60 LAB HGB Hemoglobin 14.5 Normal 13.0-17.0 g/dL LAB HCT Hematocrit 42.8 Normal 38.8-50.0 % LAB MCV Mean Corpuscular Volume 91.8 Normal 83.5-101 fL LAB MCH Mean Corpuscular Hemoglobin 31.1 Normal 27.5-35.2 pg LAB MCHC Mean Corpuscular HGB Conc 33.9 Normal 32.5-35.6 g/dL LAB RDW Red Cell Distribution Width 15.3 High 12.0-14.8 % LAB PLT Platelet Count 137 Low 150-450 10*3/uL LAB MPV Mean Platelet Volume 10.7 High 6.6-10.1 fL LAB NE% Neutrophils % (Auto) 57.4 . % LAB LY% Lymphocytes % (Auto) 32.1 . % LAB MO% Monocytes % (Auto) 7.8 . % LAB EO% Eosinophils % (Auto) 1.3 . % LAB BA% Basophils % (Auto) 1.4 . % LAB NRBC% NRBC% 0.2 Normal 0-0.5 /100{WBC} LAB NE# Neutrophils # (Auto) 5.2 Normal 1.8-7.7 10*3/uL LAB LY# Lymphocytes # (Auto) 2.9 Normal 1.00-4.8 10*3/uL LAB MO# Monocytes # (Auto) 0.7 Normal 0.0-0.8 10*3/uL LAB EO# Eosinophils # (Auto) 0.1 Normal 0.0-0.45 10*3/uL LAB BA# Basophils # (Auto) 0.1 Normal 0.0-0.2 10*3/uL Result Comment: PERFORMED BY : [facility] [address] [place] [address] PATHOLOGIST [employer] PERSON MISAEL FOX M.D. Performed By: #### OSCAR Puri CMP, CBC #### [facility] [address] COMPREHENSIVE METABOLIC PANEL Collected: 05/13/2024 1 1:07 AM Status: F Source: [facility] TYPE CODE TESTS RESULT OUT OF RANGE REFERENCE UNITS LAB GLU Glucose 271 High 70-100 mg/dL Result Comment: Random Gluco se Reference Range is dependent on time and content of last meal. Glucose of more than 200 mg/dL in a nonstressed, ambulatory subject supports the diagnosis of Diabetes Mellitus. ADA recommended reference range LAB BUN Blood Urea Nitrogen 15 Normal 7-25 mg/d L LAB CREATT Creatinine 1.04 Normal 0.70-1.30 mg/dL LAB GFReNR Estimated GFR > 60.0 LAB NA Sodium 140 Normal 136-145 mmol/L LAB K Potassium 3.8 Normal 3.5-5.1 mmol/L LAB CL Chloride 101 Normal 98-107 mmol/L LAB CO2 Carbon Dioxide 32.8 High 21.0-31.0 mmol/L LAB GAP Anion Gap 10.0 Normal 6.0-15.0 LAB CA Calcium 8.7 Normal 8.6-10.3 mg/dL LAB TP Total Protein 6.5 Normal 6.4-8.9 g/dL LAB ALB Albumin Level 3.0 Low 3.5-5.7 g/dL LAB GLOB Globulin 3.5 g/dL LAB AGRATIO Albumin/Globulin Ratio 0.9 LAB BILIT Bilirubin,Total 3.1 High 0.3-1.0 mg/dL Result Comment: Samples fro m patients who have taken Naproxen have shown spurious elevation in Total Bilirubin levels. A metabolite of Naproxen, O-desmethylnaproxen, has been shown to interfere with the Austen method for measuring Total Bilirubin. LAB AST Aspartate Amino Transferase 118 High 13-39 U/L LAB ALT Alanine Aminotransferase 110 High 7-52 U/L LAB ALP Alkaline Phosphatase 269 High 34-104 U/L Result Comment: PERFORMED BY : [place] [address] PATHOLOGIST [employer] PERSON MISAEL FOX M.D. Performed By: #### OSCAR Puri CMP, CBC #### [place] [id number] [facility] TACROLIMUS (TRANSPLANT) NO CHG Collected: 05/13/2024 11:07 AM Status: F Source: [facility] TYPE CODE TESTS RESULT OUT OF RANGE REFERENCE UNITS LAB TACROLIMUS. Tacrolimus (Transplant) No Chg Sent to Ref Lab Result Comment: PERFORMED BY : [place] [address] PATHOLOGIST [employer] PERSON MISAEL FOX M.D. Performed By: #### OSCAR Puri CMP, CBC #### [place] [id number] [facility] TACROLIMUS Collected: 11:07 AM Status: F Source: [facility] Order Comment: NOTE: Result was obtained using a chemiluminescent microparticle immunoassay (CMIA) on the Appeals Re[employer] i system. Optimal therapeutic ranges for immunosuppressant drugs depend upon an individual patient's current clinical state, type of organ transplant, time post-transplant, co-administration of other immunosuppressants, and other clinical factors. The results of this test should be correlated with additional clinical and laboratory data before changes in treatment regimens are made. TYPE CODE TESTS RESULT OUT OF RANGE REFERENCE UNITS LAB 28637-3([facility]) Tacrolimus 8.5 <=15.0 ng/mL Performed By: #### [id number] # ### NORMA Cherry ([id number]) [facility] ([facility]) [id number] [place] [address] COMPLETE BLOOD COUNT AUTO DIFF Collected: 04/09/2024 11:55 AM Status: F Source: [facility] TYPE CODE TESTS RESULT OUT OF RANGE REFERENCE UNITS LAB WBC White Blood Count 9.9 Normal 4.1-10.5 10*3/uL LAB UNWBC Uncorrected WBC 9.9 Normal 4.1-10.5 10*3/uL LAB RBC Red Blood Count 4.31 Normal 3.90-5.60 LAB HGB Hemoglobin 13.5 Normal 13.0-17.0 g/dL LAB HCT Hematocrit 40.1 Normal 38.8-50.0 % LAB MCV Mean Corpuscular Volume 93.1 Normal 83.5-101 fL LAB MCH Mean Corpuscular Hemoglobin 31.4 Normal 27.5-35.2 pg LAB MCHC Mean Corpuscular HGB Conc 33.7 Normal 32.5-35.6 g/dL LAB RDW Red Cell Distribution Width 14.5 Normal 12.0-14.8 % LAB PLT Platelet Count 146 Low 150-450 10*3/uL LAB MPV Mean Platelet Volume 10.2 High 6.6-10.1 fL LAB NE% Neutrophils % (Auto) 64.2 . % LAB LY% Lymphocytes % (Auto) 27.4 . % LAB MO% Monocytes % (Auto) 6.5 . % LAB EO% Eosinophils % (Auto) 0.9 . % LAB BA% Basophils % (Auto) 1.0 . % LAB NRBC% NRBC% 0.2 Normal 0-0.5 /100{WBC} LAB NE# Neutrophils # (Auto) 6.4 Normal 1.8-7.7 10*3/uL LAB LY# Lymphocytes # (Auto) 2.7 Normal 1.00-4.8 10*3/uL LAB MO# Monocytes # (Auto) 0.6 Normal 0.0-0.8 10*3/uL LAB EO# Eosinophils # (Auto) 0.1 Normal 0.0-0.45 10*3/uL LAB BA# Basophils # (Auto) 0.1 Normal 0.0-0.2 10*3/uL Result Comment: PERFORMED BY : [place] [address] PATHOLOGIST [employer] PERSON MISAEL FOX M.D. Performed By: #### OSCAR Puri CMP, CBC #### [address] COMPREHENSIVE METABOLIC PANEL Collected: 04/09/2024 1 1:55 AM Status: F Source: [facility] TYPE CODE TESTS RESULT OUT OF RANGE REFERENCE UNITS LAB GLU Glucose 189 High 70-100 mg/dL Result Comment: Random Gluco se Reference Range is dependent on time and content of last meal. Glucose of more than 200 mg/dL in a nonstressed, ambulatory subject supports the diagnosis of Diabetes Mellitus. ADA recommended reference range LAB BUN Blood Urea Nitrogen 21 Normal 7-25 mg/d L LAB CREATT Creatinine 1.06 Normal 0.70-1.30 mg/dL LAB GFReNR Estimated GFR > 60.0 LAB NA Sodium 142 Normal 136-145 mmol/L LAB K Potassium 3.8 Normal 3.5-5.1 mmol/L LAB CL Chloride 105 Normal 98-107 mmol/L LAB CO2 Carbon Dioxide 32.5 High 21.0-31.0 mmol/L LAB GAP Anion Gap 8.3 Normal 6.0-15.0 LAB CA Calcium 8.5 Low 8.6-10.3 mg/dL LAB TP Total Protein 5.8 Low 6.4-8.9 g/dL LAB ALB Albumin Level 2.8 Low 3.5-5.7 g/dL LAB GLOB Globulin 3.0 g/dL LAB AGRATIO Albumin/Globulin Ratio 0.9 LAB BILIT Bilirubin,Total 3.1 High 0.3-1.0 mg/dL Result Comment: Samples from patients who have taken Naproxen have shown spurious elevation in Total Bilirubin levels. A metabolite of Naproxen, O-desmethylnaproxen, has been shown to interfere with the Harlan-Uriel method for measuring Total Bilirubin. LAB AST Aspartate Amino Transferase 70 High 13-39 U/L LAB ALT Alanine Aminotransferase 95 High 7-52 U/L LAB ALP Alkaline Phosphatase 167 High 34-104 U/L Result Comment: PERFORMED BY : [place] [address] PATHOLOGIST [employer] PERSON MISAEL FOX M.D. Performed By: #### OSCAR Puri CMP, CBC #### [address] TACROLIMUS (TRANSPLANT) NO CHG Collected: 04/09/2024 11:55 AM Status: F Source: [facility] TYPE CODE TESTS RESULT OUT OF RANGE REFERENCE UNITS LAB TACROLIMUS. Tacrolimus (Transplant) No Chg Sent to Ref Lab Result Comment: PERFORMED BY : [place] [address] PATHOLOGIST PLANT UTILITY PERSON MISAEL FOX M.D. Performed By: #### OSCAR Puri CMP, CBC #### [facility] [address] [id number] [facility] TACROLIMUS Collected: 11:55 AM Status: F Source: [facility] Order Comment: NOTE: Result was obtained using a chemiluminescent microparticle immunoassay (CMIA) on the Appeals Referee i system. Optimal therapeutic ranges for immunosuppressant drugs depend upon an individual patient's current clinical state, type of organ transplant, time post-transplant, co-administration of other immunosuppressants, and other clinical factors. The results of this test should be correlated with additional clinical and laboratory data before changes in treatment regimens are made. TYPE CODE TESTS RESULT OUT OF RANGE REFERENCE UNITS LAB 61182-6([facility]) Tacrolimus 8.9 <=15.0 ng/mL Performed By: #### 22736-9 # ### NORMA Cherry ([id number]) [facility] ([facility]) [address] [place] [address] COMPLETE BLOOD COUNT AUTO DIFF Collected: 2024 9:25 AM Status: F Source: F [facility] TYPE CODE TESTS RESULT OUT OF RANGE REFERENCE UNITS LAB WBC White Blood Count 11.8 High 4.1-10.5 10*3/uL LAB UNWBC Uncorrected WBC 11.8 High 4.1-10.5 10*3/uL LAB RBC Red Blood Count 4.48 Normal 3.90-5.60 LAB HGB Hemoglobin 14.0 Normal 13.0-17.0 g/dL LAB HCT Hematocrit 41.8 Normal 38.8-50.0 % LAB MCV Mean Corpuscular Volume 93.3 Normal 83.5-101 fL LAB MCH Mean Corpuscular Hemoglobin 31.4 Normal 27.5-35.2 pg LAB MCHC Mean Corpuscular HGB Conc 33.6 Normal 32.5-35.6 g/dL LAB RDW Red Cell Distribution Width 14.7 Normal 12.0-14.8 % LAB PLT Platelet Count 161 Normal 150-450 10*3/uL LAB MPV Mean Platelet Volume 11.6 High 6.6-10.1 fL LAB NE% Neutrophils % (Auto) 55.5 . % LAB LY% Lymphocytes % (Auto) 36.3 . % LAB MO% Monocytes % (Auto) 6.9 . % LAB EO% Eosinophils % (Auto) 0.7 . % LAB BA% Basophils % (Auto) 0.6 . % LAB NRBC% NRBC% 0.2 Normal 0-0.5 /100{WBC} LAB NE# Neutrophils # (Auto) 6.6 Normal 1.8-7.7 10*3/uL LAB LY# Lymphocytes # (Auto) 4.3 Normal 1.00-4.8 10*3/uL LAB MO# Monocytes # (Auto) 0.8 Normal 0.0-0.8 10*3/uL LAB EO# Eosinophils # (Auto) 0.1 Normal 0.0-0.45 10*3/uL LAB BA# Basophils # (Auto) 0.1 Normal 0.0-0.2 10*3/uL Result Comment: PERFORMED BY : [place] [address] PATHOLOGIST PL[employer] PERSON MISAEL FOX M.D. Performed By: #### CMP, CBC, TACROLIMUS. #### [facility] [address] [place] [address] COMPREHENSIVE METABOLIC PANEL Collected: 2024 9 :25 AM Status: F Source: [facility] TYPE CODE TESTS RESULT OUT OF RANGE REFERENCE UNITS LAB GLU Glucose 125 High 70-100 mg/dL Result Comment: Random Gluco se Reference Range is dependent on time and content of last meal. Glucose of more than 200 mg/dL in a nonstressed, ambulatory subject supports the diagnosis of Diabetes Mellitus. ADA recommended reference range LAB BUN Blood Urea Nitrogen 21 Normal 7-25 mg/d L LAB CREATT Creatinine 1.01 Normal 0.70-1.30 mg/dL LAB GFReNR Estimated GFR > 60.0 LAB NA Sodium 141 Normal 136-145 mmol/L LAB K Potassium 3.8 Normal 3.5-5.1 mmol/L LAB CL Chloride 107 Normal 98-107 mmol/L LAB CO2 Carbon Dioxide 29.7 Normal 21.0-31.0 mmol/L LAB GAP Anion Gap 8.1 Normal 6.0-15.0 LAB CA Calcium 8.8 Normal 8.6-10.3 mg/dL LAB TP Total Protein 6.5 Normal 6.4-8.9 g/dL LAB ALB Albumin Level 3.2 Low 3.5-5.7 g/dL LAB GLOB Globulin 3.3 g/dL LAB AGRATIO Albumin/Globulin Ratio 1.0 LAB BILIT Bilirubin,Total 2.3 High 0.3-1.0 mg/dL Result Comment: Samples from patients who have taken Naproxen have shown spurious elevation in Total Bilirubin levels. A metabolite of Naproxen, O-desmethylnaproxen, has been shown to interfere with the Jenlatriciaik-Grof method for measuring Total Bilirubin. LAB AST Aspartate Amino Transferase 52 High 13-39 U/L LAB ALT Alanine Aminotransferase 98 High 7-52 U/L LAB ALP Alkaline Phosphatase 154 High 34-104 U/L Result Comment: PERFORMED BY : [place] [address] PATHOLOGIST PLANT UTILITY PERSON MISAEL FOX M.D. Performed By: #### CMP, CBC, TACROLIMUS. #### [address] TACROLIMUS (TRANSPLANT) NO CHG Collected: 2024 9:25 AM Status: F Source: [facility] TYPE CODE TESTS RESULT OUT OF RANGE REFERENCE UNITS LAB TACROLIMUS. Tacrolimus (Transplant) No Chg Sent to Ref Lab Result Comment: PERFORMED BY : [place] [address] PATHOLOGIST PLANT UTILITY PERSON MISAEL FOX M.D. Performed By: #### CMP, CBC, TACROLIMUS. #### [address] TACROLIMUS Collected: 9:25 AM Status: F Source: [facility] Order Comment: NOTE: Result was obtained using a chemiluminescent microparticle immunoassay (CMIA) on the Appeals Referee i system. Optimal therapeutic ranges for immunosuppressant drugs depend upon an individual patient's current clinical state, type of organ transplant, time post-transplant, co-administration of other immunosuppressants, and other clinical factors. The results of this test should be correlated with additional clinical and laboratory data before changes in treatment regimens are made. TYPE CODE TESTS RESULT OUT OF RANGE REFERENCE UNITS LAB 46329-7(LOINC) Tacrolimus 10.1 <=15.0 ng/mL Performed By: #### 59437-7 # ### NORMA Cherry ([id number]) [facility] ([facility]) [id number] [place], [place] [id number] COMPLETE BLOOD COUNT AUTO DIFF Collected: 03/06/2024 10:13 AM Status: F Source: [facility] TYPE CODE TESTS RESULT OUT OF RANGE REFERENCE UNITS LAB WBC White Blood Count 9.6 Normal 4.1-10.5 10*3/uL LAB UNWBC Uncorrected WBC 9.6 Normal 4.1-10.5 10*3/uL LAB RBC Red Blood Count 4.28 Normal 3.90-5.60 LAB HGB Hemoglobin 13.5 Normal 13.0-17.0 g/dL LAB HCT Hematocrit 40.0 Normal 38.8-50.0 % LAB MCV Mean Corpuscular Volume 93.5 Normal 83.5-101 fL LAB MCH Mean Corpuscular Hemoglobin 31.6 Normal 27.5-35.2 pg LAB MCHC Mean Corpuscular HGB Conc 33.8 Normal 32.5-35.6 g/dL LAB RDW Red Cell Distribution Width 14.9 High 12.0-14.8 % LAB PLT Platelet Count 150 Normal 150-450 10*3/uL LAB MPV Mean Platelet Volume 11.4 High 6.6-10.1 fL LAB NE% Neutrophils % (Auto) 54.6 . % LAB LY% Lymphocytes % (Auto) 37.7 . % LAB MO% Monocytes % (Auto) 6.5 . % LAB EO% Eosinophils % (Auto) 0.6 . % LAB BA% Basophils % (Auto) 0.6 . % LAB NRBC% NRBC% 0.2 Normal 0-0.5 /100{WBC} LAB NE# Neutrophils # (Auto) 5.2 Normal 1.8-7.7 10*3/uL LAB LY# Lymphocytes # (Auto) 3.6 Normal 1.00-4.8 10*3/uL LAB MO# Monocytes # (Auto) 0.6 Normal 0.0-0.8 10*3/uL LAB EO# Eosinophils # (Auto) 0.1 Normal 0.0-0.45 10*3/uL LAB BA# Basophils # (Auto) 0.1 Normal 0.0-0.2 10*3/uL Result Comment: PERFORMED BY : [place] [address] PATHOLOGIST [employer] PERSON MISAEL FOX M.D. Performed By: #### OSCAR Puri CMP, CBC #### [address] COMPREHENSIVE METABOLIC PANEL Collected: 03/06/2024 1 0:13 AM Status: F Source: [facility] TYPE CODE TESTS RESULT OUT OF RANGE REFERENCE UNITS LAB GLU Glucose 337 High 70-100 mg/dL Result Comment: Random Gluco se Reference Range is dependent on time and content of last meal. Glucose of more than 200 mg/dL in a nonstressed, ambulatory subject supports the diagnosis of Diabetes Mellitus. ADA recommended reference range LAB BUN Blood Urea Nitrogen 25 Normal 7-25 mg/d L LAB CREATT Creatinine 1.10 Normal 0.70-1.30 mg/dL LAB GFReNR Estimated GFR > 60.0 LAB NA Sodium 138 Normal 136-145 mmol/L LAB K Potassium 3.9 Normal 3.5-5.1 mmol/L LAB CL Chloride 104 Normal 98-107 mmol/L LAB CO2 Carbon Dioxide 28.2 Normal 21.0-31.0 mmol/L LAB GAP Anion Gap 9.7 Normal 6.0-15.0 LAB CA Calcium 8.9 Normal 8.6-10.3 mg/dL LAB TP Total Protein 6.1 Low 6.4-8.9 g/dL LAB ALB Albumin Level 3.1 Low 3.5-5.7 g/dL LAB GLOB Globulin 3.0 g/dL LAB AGRATIO Albumin/Globulin Ratio 1.0 LAB BILIT Bilirubin,Total 2.1 High 0.3-1.0 mg/dL Result Comment: Samples from patients who have taken Naproxen have shown spurious elevation in Total Bilirubin levels. A metabolite of Naproxen, O-desmethylnaproxen, has been shown to interfere with the Harlan-Uriel method for measuring Total Bilirubin. LAB AST Aspartate Amino Transferase 70 High 13-39 U/L LAB ALT Alanine Aminotransferase 109 High 7-52 U/L LAB ALP Alkaline Phosphatase 148 High 34-104 U/L Result Comment: PERFORMED BY : [facility] [address] [place] [address] PATHOLOGIST PL[employer] UT[employer] PERSON MISAEL FOX M.D. Performed By: #### OSCAR Puri CMP, CBC #### [id number] [facility] TACROLIMUS (TRANSPLANT) NO CHG Collected: 03/06/2024 10:13 AM Status: F Source: [facility] TYPE CODE TESTS RESULT OUT OF RANGE REFERENCE UNITS LAB TACROLIMUS. Tacrolimus (Transplant) No Chg Sent to Ref Lab Result Comment: PERFORMED BY : [place] [address] PATHOLOGIST PLANT UTILITY PERSON MISAEL FOX M.D. Performed By: #### OSCAR Puri CMP, CBC #### [id number] [facility] TACROLIMUS Collected: 10:13 AM Status: F Source: [facility] Order Comment: NOTE: Result was obtained using a chemiluminescent microparticle immunoassay (CMIA) on the Appeals Referee i system. Optimal therapeutic ranges for immunosuppressant drugs depend upon an individual patient's current clinical state, type of organ transplant, time post-transplant, co-administration of other immunosuppressants, and other clinical factors. The results of this test should be correlated with additional clinical and laboratory data before changes in treatment regimens are made. TYPE CODE TESTS RESULT OUT OF RANGE REFERENCE UNITS LAB 46619-5(LOINC) Tacrolimus 5.9 <=15.0 ng/mL Performed By: #### 59461-9 # ### NORMA Cherry ([id number]) [facility] ([facility]) [address] [place] [address] TACROLIMUS Collected: 4 11:32 AM Status: F Source: [facility] Order Comment: NOTE: Result was obtained using a chemiluminescent microparticle immunoassay (CMIA) on the Appeals Referee i system. Optimal therapeutic ranges for immunosuppressant drugs depend upon an individual patient's current clinical state, type of organ transplant, time post-transplant, co-administration of other immunosuppressants, and other clinical factors. The results of this test should be correlated with additional clinical and laboratory data before changes in treatment regimens are made. TYPE CODE TESTS RESULT OUT OF RANGE REFERENCE UNITS LAB 21390-3(LOINC) Tacrolimus 8.6 <=15.0 ng/mL Performed By: #### 15258-0 # ### NORMA Cherry ([id number]) [facility] ([facility]) [address] [id number] COMPLETE BLOOD COUNT AUTO DIFF Collected: 02/27/2024 11:00 AM Status: F Source: [facility] TYPE CODE TESTS RESULT OUT OF RANGE REFERENCE UNITS LAB WBC White Blood Count 9.0 Normal 4.1-10.5 10*3/uL LAB UNWBC Uncorrected WBC 9.0 Normal 4.1-10.5 10*3/uL LAB RBC Red Blood Count 4.70 Normal 3.90-5.60 LAB HGB Hemoglobin 14.8 Normal 13.0-17.0 g/dL LAB HCT Hematocrit 43.6 Normal 38.8-50.0 % LAB MCV Mean Corpuscular Volume 92.7 Normal 83.5-101 fL LAB MCH Mean Corpuscular Hemoglobin 31.4 Normal 27.5-35.2 pg LAB MCHC Mean Corpuscular HGB Conc 33.9 Normal 32.5-35.6 g/dL LAB RDW Red Cell Distribution Width 15.2 High 12.0-14.8 % LAB PLT Platelet Count 150 Normal 150-450 10*3/uL LAB MPV Mean Platelet Volume 10.4 High 6.6-10.1 fL LAB NE% Neutrophils % (Auto) 48.1 . % LAB LY% Lymphocytes % (Auto) 40.8 . % LAB MO% Monocytes % (Auto) 10.0 . % LAB EO% Eosinophils % (Auto) 0.5 . % LAB BA% Basophils % (Auto) 0.6 . % LAB NRBC% NRBC% 0.4 Normal 0-0.5 /100{WBC} LAB NE# Neutrophils # (Auto) 4.3 Normal 1.8-7.7 10*3/uL LAB LY# Lymphocytes # (Auto) 3.7 Normal 1.00-4.8 10*3/uL LAB MO# Monocytes # (Auto) 0.9 High 0.0-0.8 10*3/uL LAB EO# Eosinophils # (Auto) 0.0 Normal 0.0-0.45 10*3/uL LAB BA# Basophils # (Auto) 0.1 Normal 0.0-0.2 10*3/uL Result Comment: PERFORMED BY : [place] [address] PATHOLOGIST [employer] PERSON MISAEL FOX M.D. Performed By: #### CMP, TACR ROSEMARY., CBC #### [facility] [address] COMPREHENSIVE METABOLIC PANEL Collected: 02/27/2024 1 1:00 AM Status: F Source: [facility] TYPE CODE TESTS RESULT OUT OF RANGE REFERENCE UNITS LAB GLU Glucose 169 High 70-100 mg/dL Result Comment: Random Gluco se Reference Range is dependent on time and content of last meal. Glucose of more than 200 mg/dL in a nonstressed, ambulatory subject supports the diagnosis of Diabetes Mellitus. ADA recommended reference range LAB BUN Blood Urea Nitrogen 20 Normal 7-25 mg/d L LAB CREATT Creatinine 0.95 Normal 0.70-1.30 mg/dL LAB GFReNR Estimated GFR > 60.0 LAB NA Sodium 138 Normal 136-145 mmol/L LAB K Potassium 3.9 Normal 3.5-5.1 mmol/L LAB CL Chloride 103 Normal 98-107 mmol/L LAB CO2 Carbon Dioxide 30.5 Normal 21.0-31.0 mmol/L LAB GAP Anion Gap 8.4 Normal 6.0-15.0 LAB CA Calcium 9.2 Normal 8.6-10.3 mg/dL LAB TP Total Protein 6.6 Normal 6.4-8.9 g/dL LAB ALB Albumin Level 3.3 Low 3.5-5.7 g/dL LAB GLOB Globulin 3.3 g/dL LAB AGRATIO Albumin/Globulin Ratio 1.0 LAB BILIT Bilirubin,Total 2.5 High 0.3-1.0 mg/dL Result Comment: Samples from patients who have taken Naproxen have shown spurious elevation in Total Bilirubin levels. A metabolite of Naproxen, O-desmethylnaproxen, has been shown to interfere with the Harlan-Uriel method for measuring Total Bilirubin. LAB AST Aspartate Amino Transferase 77 High 13-39 U/L LAB ALT Alanine Aminotransferase 119 High 7-52 U/L LAB ALP Alkaline Phosphatase 184 High 34-104 U/L Result Comment: PERFORMED BY : [facility] [address] [place] [address] PATHOLOGIST [employer] PERSON MISAEL FOX M.D. Performed By: #### CMP, TACR OLIMUS., CBC #### [address] TACROLIMUS (TRANSPLANT) NO CHG Collected: 02/27/2024 11:00 AM Status: F Source: [facility] TYPE CODE TESTS RESULT OUT OF RANGE REFERENCE UNITS LAB TACROLIMUS. Tacrolimus (Transplant) No Chg Sent to Ref Lab Result Comment: PERFORMED BY : [place] [address] PATHOLOGIST PL[employer] UTILITY PERSON MISAEL FOX M.D. Performed By: #### CMP, TACR OLIMUS., CBC #### [id number] [facility] ALLERGIES DATE TYPE / CODE NAME / CODE REACTION SEVERITY SOURCE 12/11/2024 Drug Allergy/4160 76121(SNOMED CT) clavulanic acid/[id number](RX NORM) Hives Unknown [facility] 12/11/2024 Drug Allergy/4160 54441(SNOMED CT) red dye/D776160104(RXN ORM) Swelling of Lip/Tongue/Throat, anaphylaxis Unknown [facility] 04/08/2017 DRUG INGREDI~Food /927841545(S NOMED CT) RED DYE Anaphylaxis~Angioe harish~Swelling [facility] /758721289 (SNOMED CT) No Known Allergies [facility] ENCOUNTERS ADMIT/DISCHARGE ACCOUNT NUMBER ADMITTING ENCOUNTER CLASS LOCATION SOURCE 01/31/2025/02/01/20 [id number] Ambulatory Building:[facility] 01/31/2025/02/01/20 [id number] Sharan Ayoub [facility] 01/09/2025/01/10/20 [id number] Ambulatory Building:[facility] 01/09/2025/01/10/20 [id number] Ambulatory Building:[facility] 12/31/2024/01/01/20 [id number] Ambulatory Building:NOM S MON[place]RIC[place]AM [facility] EPIC 12/09/2024/12/10/19 25 [id number] [facility] 12/03/2024/12/04/19 [id number] Ambulatory Building:NOM S RONALDM [facility] EPIC 11/12/2024/11/12/19 [id number] Ambulatory Building:NOM S RONALDM [facility] EPIC 11/05/2024/11/05/19 25 [id number] [facility]aran [facility]youb [facility] 10/28/2024/10/28/19 [id number] Ambulatory EU [place]Build ing:EU [facility] 10/28/2024 [id number] Ambulatory EU [place]:[facility] 10/10/2024/10/10/19 25 [id number] Sharan Ayoub [facility] 10/10/2024/10/10/19 [id number] Ambulatory Building:[facility] 09/09/2024/09/09/20 24 [id number] [facility]aran [facility]youb [facility] 08/15/2024/08/15/20 24 [id number] Sharan [facility]youb [facility] 07/01/2024/07/01/20 24 [id number] [facility]Prem[facility] 05/27/2024/05/27/20 24 [id number] Ambulatory Building:NOM S MONODERM [facility] EPIC 05/13/2024/05/13/20 24 [id number] Ambulatory Building:NOM S MELANY [facility] EPIC 05/13/2024/05/13/20 24 [id number] [facility] CenterBuild[facility] 05/09/2024/05/09/20 24 [id number] Ambulatory Building:NOM Mounika ROJAS [facility] EPIC 04/18/2024/04/18/20 24 [id number] Ambulatory Building:[facility] MtLivrTXP [facility] 04/09/2024/04/09/20 24 [id number] [facility]Ohio[facility] CenterBuild[facility] 04/02/2024/04/02/20 24 [id number] Ambulatory Building:NOM Mounika MOSLEY [facility] EPIC 03/12/2024/03/12/20 24 [id number] HunterL[facility]eland [facility] CenterBuevergreen[facility] ng:[facility] 03/06/2024/03/06/20 24 [id number] [facility] CenterBuevergreen[facility] ng:[facility] 02/27/2024/02/27/20 24 [id number] [facility] PAYERS ENCOUNTER GUARANTOR PAYER SUBSCRIBER SOURCE 01/31/2025 LULY THOMASONOB: [place], [place] [address]Mnu: (HP) (WP) Primary Insurance:GENERIC COMMERCIALPolicy Number: [id number] Date:2022-10-02 LULY ZAFARCEDOB: [id number] [place], [place] [address]Goy: (HP) [facility] 01/31/2025 Luly Zafarce[address] [place] [address]Tqb: (HP) Primary Insurance:HealthscopePo licy Number: [id number] Date:0108-84-71KmBJORN Tellez [address]KX: Luly ZafarceDOB: [id number] [place] [address]Asu: () [facility] 01/31/2025 Secondary Insurance:Self PayPolicy Number: Effective Date:2025-01-31 [facility] 01/09/2025 LULY ZAFARCEDOB: [place], [place] [address]Rsf: (HP) (WP) Primary Insurance:GENERIC COMMERCIALPolicy Number: [id number] Date:2022-10-02 LULY ZAFARJUOB: [id number] [place], [place] [address]Mpo: (HP) [facility] 01/09/2025 LULY ZAFARCEDOB: [place], [place] [address]Kna: (HP) (WP) Primary Insurance:GENERIC COMMERCIALPolicy Number: [id number] Date:2022-10-02 LULY ZAFARJUOB: [id number] [place], [place] [address]Aan: (HP) [facility] 12/31/2024 LULY CHARISMACEDOB: [place] [address]Vrb: (HP) Primary Insurance:HEALTHSCOPEPo licy Number: [id number] Date:2022-10-02 LULY CARVAJALHAMIDAOB: [id number] [place] [address] [facility] 12/09/2024 Luly White [address] [place] [address]Zrx: () Primary Insurance:HealthscopePo licy Number: [id number] Date:8840-08-94[address] [address], [place] [address]CV: Luly ZafarceDOB: [id number] [place] [address]Smy: (HP) [facility] 12/09/2024 Secondary Insurance:Self PayPolicy Number: Effective Date:2024-12-09 [facility] 12/03/2024 LULY ZAFARCEDOB: [place] [address]Orr: (HP) Primary Insurance:HEALTHSCOPEPo licy Number: [id number] Date:2022-10-02 LULY THOMASONOB: [id number] [place] [facility] EPIC 11/12/2024 LULY THOMASONOB: [place] [address]Lhw: (HP) Primary Insurance:HEALTHSCOPEPo licy Number: [id number] Date:2022-10-02 LULY THOMASONOB: [id number] [place] [address] [facility] EPIC 11/05/2024 Luly Zafarce[address] [place] [address]Fyx: (HP) Primary Insurance:HealthscopePo licy Number: [id number] Date:3852-06-96Ve [address] [address]PnbekonBJORN Dotson [address]WE: Luly ThomasonOB: [id number] [place] [address]Mhr: (HP) [facility] 11/05/2024 Secondary Insurance:Self PayPolicy Number: Effective Date:2024-11-05 NOT [facility] 10/28/2024 LULY THOMASONOB: [facility] MONROEETel: ~(4 19 (HP) Primary Insurance:Healthscope BenefitsPolicy Number: [id number] Date:4358-12-60EC [address] [address], [place] [address]JV: LULY ANDERSON [facility] 10/28/2024 LULY ZAFARCEDOB: [address] AVETel: ~(4 19 (HP) Primary Insurance:Healthscope BenefitsPolicy Number: [id number] Date:2573-95-34YI [address] [address], [place] [address]WH: LULYFIDELINA ANDERSON [facility] 10/10/2024 Luly White [address] [place] [address]Rlj: (HP) Primary Insurance:HealthscopePo licy Number: [id number] Date:9481-54-59Xz [address] [address], [place] [address]CC: Luly White CharismaceDOB: [id number] [place] [address]Wcp: (HP) [facility] 10/10/2024 Secondary Insurance:Self PayPolicy Number: Effective Date:2024-10-10 [facility] 10/10/2024 LULY White CHARISMACEDOB: [address], [place] [address]Msb: (HP) (WP) Primary Insurance:GENERIC COMMERCIALPolicy Number: [id number] Date:2022-10-02 LULY White CHARISMACEDOB: [id number] [address] [place], [place] [address]Pak: (HP) [facility] 09/09/2024 Luly Cindy [address] [place] [address]Mlw: () Primary Insurance:HealthscopePo licy Number: [id number] Date:2858-55-13[address] [address]qvOGUN[place], [place] [address]WY: Luly Cindy ZafarceDOB: [id number] [place] [address]Vwg: () [facility] 09/09/2024 Secondary Insurance:Self PayPolicy Number: Effective Date:2024-09-09 [facility] 08/15/[address] [place] [address] [place] [address]Tmg: () Primary Insurance:HealthscopePo licy Number: [id number] Date:2218-47-51[address] [address], [place] [address]VO: Luly ZafarceDOB: [id number] [place] [address]Rpj: () [facility] 08/15/2024 Secondary Insurance:Self PayPolicy Number: Effective Date:2024-08-15 [facility] 07/01/2024 Luly Giron[address] [place] [address]Lyp: () Primary Insurance:HealthscopePo licy Number: [id number] Date:7374-42-23[address] [address], [place] [address]EO: Luly ZafarceDOB: [id number] [place] [address]Xjr: () [facility] 07/01/2024 Secondary Insurance:Self PayPolicy Number: Effective Date:2024-07-01 [facility] 05/27/2024 LULY THOMASONOB: [place] [address]Joz: (HP) Primary Insurance:HEALTHSCOPEPo licy Number: [id number] Date:2022-10-02 LULY CHARISMACEDOB: [id number] [place] [address] [facility] EPIC 05/13/2024 LULY CHARISMACEDOB: [place] [address]Xjj: (HP) Primary Insurance:HEALTHSCOPEPo licy Number: [id number] Date:2022-10-02 LULY KATELINOB: [id number] [place], [place] [facility] 05/13/2024 Luly [id number] [place] [address]Gwq: (HP) Primary Insurance:HealthscopePo licy Number: [id number] Date:[id number] [address] [address]XI: Luly T KatelinOB: [id number] [place] [address]Tur: (HP) [facility] 05/13/2024 Secondary Insurance:Self PayPolicy Number: Effective Date:2024-05-13 [facility] LULY ZAFARCEDOB: [place] [address]Dbk: (HP) Primary Insurance:HEALTHSCOPEPo licy Number: [id number] Date:2022-10-02 LULY THOMASONOB: [id number] [place] [address] [facility] 04/18/2024 LULY THOMASONOB: [place], [place] [address]Gsw: (HP) () [facility] Number: [id number] Date:2022-10-02 LULY White CHARISMACEDOB: [id number] [place], [place] [address]Lkw: (HP) [facility] 04/09/2024 Luly White Fzzhqkbl387 [place] [address]Hpx: (HP) Primary Insurance:HealthscopePo licy Number: [id number] Date:9626-69-78[address] [address], [place] [address]TR: Luly White CharismaceDOB: [id number] [place] [address]Gxo: () [facility] 04/09/2024 Secondary Insurance:Self PayPolicy Number: Effective Date:2024-04-09 [facility] 04/[facility]2024 LULY ZAFARCEDOB: [place] [address]Hdc: () Primary Insurance:HEALTHSCOPEPo licy Number: [id number] Date:2022-10-02 LULY THOMASONOB: [id number] [place] [address] [facility] 2024 Luly Cindy ZafarAbikrxvy017 [place] [address]Lrs: () Primary Insurance:HealthscopePo licy Number: [id number] Date:1508-91-84[address] [address], [place] [address]AZ: Luly ThomasonOB: [id number] [place] [address]Gqv: () [facility] 2024 Secondary Insurance:Self PayPolicy Number: Effective Date:2024 [facility] 03/06/2024 Luly Giron811 [place] [address]Yjw: (HP) Primary Insurance:HealthscopePo licy Number: [id number] Date:4051-05-40Qi [address] [address], [place] [address]YE: Luly ZafarceDOB: [id number] [place] [address]Coa: () [facility] 03/06/2024 Secondary Insurance:Self PayPolicy Number: Effective Date:2024-03-06 [facility] 02/27/2024 Luly Giron[address] [place] [address]Fez: (HP) Primary Insurance:HealthscopePo licy Number: [id number] Date:6933-54-82Q[address] [address], [place] [address]PK: Luly ThomasonOB: [id number] [place] [address]Zju: (HP) [facility] 02/27/2024 Secondary Insurance:Self PayPolicy Number: Effective Date:2024-02-27 [facility]
[2025-02-25 08:28] VITALS: BP 137/66; PULSE 100; TEMP 36.9; O2SAT 97; BMI 39.5
--- OUTSIDE RECORDS SUMMARY | 2025-02-25 08:31 | XMS_ITS | Encounter Summary ---
Author Organization [facility] Address [address] [place] [address] Phone Care Team Providers Care Home Care Nurse Name Role Phone Camille Avila MD Primary Care Provider [phone] Nea Campos RN Unavailable Unavailable Encounter Details Date Type Department Care Team (Late st Contact Info) Description 03/07/[address] [facility] [address] [place] [phone] [place] [address] [facility] Department of Medicine-Gastroen terology [place] [id number] Liver transplant status (Multi); Liver transplant rejection (Multi) Social History Tobacco Use Types Packs/Day Years Used Date Smoking Tobacco: Never Smokeless Tobacco: Never Alcohol Use Standard Drinks/Week Comments Never 0 (1 standard drink = 0.6 oz pur e alcohol) AUDIT-C Answer Date Recorded Q1: How often do you have a drink containing alcohol? Never 01/18/2024 Q2: How many drinks containi ng alcohol do you have on a typical day when you are drinking? Patient does not drink Q3: How often do you have si x or more drinks on one occasion? Never 01/18/2024 Overall Financial Resource Strain (CARDIA) Answe r Date Recorded How hard is it for you to pa y for the very basics like food, housing, medical care, and heating? Not hard at all 01/19/2024 PHQ-2 Answer Date Recorded Patient Health Questionnaire-2 Score 0 01/18/2024 PRAPARE - Transportation Answer Date Re corded In the past 12 months, has l ack of transportation kept you from medical appointments or from getting medications? No 12/31 In the past 12 months, has l ack of transportation kept you from meetings, work, or from getting things needed for daily living? No 01/19/2024 Housing Stability Vital Sign Answer Giovanni e Recorded In the last 12 months, was t here a time when you were not able to pay the mortgage or rent on time? No 01/19/2024 In the last 12 months, how many places have you lived? 1 01/19/2024 In the last 12 months, was t here a time when you did not have a steady place to sleep or slept in a nursing home (including now)? No 01/19/2024 Sex and Gender Information Value Date Recorded Sex Assigned at Not on file Legal Sex Male 11:53 PM EST Gender Identity Not on file Sexual Orientation Not on file documented as of this encounter Plan of Treatment Upcoming Encounters Date Type Department Care Team (Late st Contact Info) Description 04/03/2025 10:00 AM EDT Office Visit [facility] [address] [facility] [address] [place] [address] [place] [address] Department of [place] [address] documented as of this encounter Procedures Procedure Name Priority Date/Time Associated Diagnosis Comments TACROLIMUS Routine 03/06/2024 10:13 AM EDT Liver transplant status (Multi) Liver transplant rejection (Multi) documented in this encounter Results * Tacrolimus (03/06/2024 10:13 AM EDT) Tacrolimus 5.9 <=15.0 ng/mL LAB CHEMISTRY METHOD 03/07/2024 9:39 AM EDT [facility] Blood Venous blood specimen / Unknown 03/06/2024 10:13 AM EDT 03/07/2024 1:05 AM EDT Narrative [facility] - 03/07/2024 9:39 AM EDT NOTE: Result was obtained using a chemiluminescent microparticle immunoassay (CMIA) on the Truck Greaser i system. Optimal therapeutic ranges for immunosuppressant drugs depend upon an individual patient's current clinical state, type of organ transplant, time post-transplant, co-administration of other immunosuppressants, and other clinical factors. The results of this test should be correlated with additional clinical and laboratory data before changes in treatment regimens are made. us Sharan Ayoub MD LAB BLOOD ORDERABLES Final Re sult [facility] [address] [address] documented in this encounter Visit Diagnoses Diagnosis Liver transplant status Liver transplant rejection (Multi) Complications of transplanted liver documented in this encounter Care Teams Home Care Nurse Relationship Specialty Start Date End Date Camille Avila MD [address] [place] [address] PCP - General 05/19/16 Nae Campos, bench shear operatorDirector Product Safety Transplant 07/07/23 documented as of this encounter
--- OUTSIDE RECORDS SUMMARY | 2025-02-25 08:31 | XMS_ITS | Encounter Summary ---
Author Organization [facility] Address [address] [place] [address] Phone Care Team Providers Care Ditch Repairer Name Role Phone Camille Avila MD Primary Care Provider [phone] Nae Campos RN Unavailable Unavailable Encounter Details Date Type Department Care Team ([facility] Contact Info) Description 09/12/2018 Orders Only [facility] [address] Virtual [place] [address] Conversion, Onbase Social History Tobacco Use Types Packs/Day Years Used Date Smoking Tobacco: Never Assessed Sex and Gender Information Value Date Recorded Sex Assigned at Not on file Legal Sex Male 11:53 PM EST Gender Identity Not on file Sexual Orientation Not on file documented as of this encounter Plan of Treatment Upcoming Encounters Date Type Department Care Team ([facility] Contact Info) Description 04/03/2025 10:00 AM EDT Office Visit [facility] [address] [facility] [address] [place] [phone] [place] [address] Department of Medicine-Gastroenter ology [place] [phone] Scheduled Orders Name Type Priority Associated Diagnoses Orde r Schedule OUTSIDE LAB SCAN Lab Ordered: 09/12/2018 documented as of this encounter Visit Diagnoses Not on filedocumented in this encounter Care Teams Ditch Repairer Relationship Specialty Start Date End Date Camille Avila MD [address] [place] [address] PCP - General 05/19/16 Nae Campos, school adjustment counselorLiquefaction Plant Operator Transplant 07/07/23 documented as of this encounter
--- OUTSIDE RECORDS SUMMARY | 2025-02-25 08:31 | XMS_ITS | Encounter Summary ---
Author Organization [facility] Address [address] [place] [address] Phone Care Team Providers Care Fixed Income Trading Vice President Name Role Phone Camille Avila MD Primary Care Provider [phone] Nae Campos RN Unavailable Unavailable Encounter Details Date Type Department Care Team ([facility] Contact Info) Description 12/05/2016 Orders Only [facility] [address] [place] [address] Conversion, Onbase Social History Tobacco Use Types Packs/Day Years Used Date Smoking Tobacco: Never Assessed Sex and Gender Information Value Date Recorded Sex Assigned at Not on file Legal Sex Male 11:53 PM EST Gender Identity Not on file Sexual Orientation Not on file documented as of this encounter Plan of Treatment Upcoming Encounters Date Type Department Care Team ([facility] Contact Info) Description 04/03/2025 10:00 AM EDT Office Visit [facility] [place] [address] [facility] [address] [place] [phone] [place] [address] Department of Medicine-Gastroenter ology [place] [phone] Scheduled Orders Name Type Priority Associated Diagnoses Orde r Schedule OUTSIDE LAB SCAN Lab Ordered: 12/05/2016 documented as of this encounter Visit Diagnoses Not on filedocumented in this encounter Care Teams Fixed Income Trading Vice President Relationship Specialty Start Date End Date Camille Avila MD [address] [place] [address] PCP - General 05/19/16 Nae Campos, beef graderBackend Java Developer Transplant 07/07/23 documented as of this encounter
--- OUTSIDE RECORDS SUMMARY | 2025-02-25 08:31 | XMS_ITS | Encounter Summary ---
Author Organization [facility] Address [address] [place] [address] Phone Care Team Providers Care Bindery Machine Operator Name Role Phone Camille Avila MD Primary Care Provider [phone] Nae Campos RN Unavailable Unavailable Encounter Details Date Type Department Care Team ([facility] Contact Info) Description 05/24/2017 Orders Only [facility] [address] [place] [address] Conversion, Onbase Social History Tobacco Use Types Packs/Day Years Used Date Smoking Tobacco: Never Assessed Sex and Gender Information Value Date Recorded Sex Assigned at Not on file Legal Sex Male 11:53 PM EST Gender Identity Not on file Sexual Orientation Not on file documented as of this encounter Plan of Treatment Upcoming Encounters Date Type Department Care Team ([facility] Contact Info) Description 04/03/2025 10:00 AM EDT Office Visit [facility] [place] [address] [facility] [address] [place] [phone] [place] [address] Department of Medicine-Gastroenter ology [place] [phone] Scheduled Orders Name Type Priority Associated Diagnoses Orde r Schedule OUTSIDE LAB SCAN Lab Ordered: 05/24/2017 documented as of this encounter Visit Diagnoses Not on filedocumented in this encounter Care Teams Bindery Machine Operator Relationship Specialty Start Date End Date Camille Avila MD [address] [place] [address] PCP - General 05/19/16 Nae Campos, drill rig operatorCoil Former Transplant 07/07/23 documented as of this encounter
--- OUTSIDE RECORDS SUMMARY | 2025-02-25 08:31 | XMS_ITS | Encounter Summary ---
Author Organization [facility] Address [address] [place] [address] Phone Care Team Providers Care Guncotton Packer Name Role Phone Camille Avila MD Primary Care Provider [phone] Nae Campos RN Unavailable Unavailable Encounter Details Date Type Department Care Team ([facility] Contact Info) Description 01/30/2017 Orders Only [facility] [address] [place] [address] Conversion, Onbase Social History Tobacco Use Types Packs/Day Years Used Date Smoking Tobacco: Never Assessed Sex and Gender Information Value Date Recorded Sex Assigned at Not on file Legal Sex Male 11:53 PM EST Gender Identity Not on file Sexual Orientation Not on file documented as of this encounter Plan of Treatment Upcoming Encounters Date Type Department Care Team ([facility] Contact Info) Description 04/03/2025 10:00 AM EDT Office Visit [facility] [address] [facility] [address] [place] [phone] [place] [address] Department of Medicine-Gastroenter ology [place] [phone] Scheduled Orders Name Type Priority Associated Diagnoses Orde r Schedule OUTSIDE LAB SCAN Lab Ordered: 01/30/2017 documented as of this encounter Visit Diagnoses Not on filedocumented in this encounter Care Teams Guncotton Packer Relationship Specialty Start Date End Date Camille Avila MD [address] [place] [address] PCP - General 05/19/16 Nae Campos, lptaColor Receiver Transplant 07/07/23 documented as of this encounter
--- OUTSIDE RECORDS SUMMARY | 2025-02-25 08:31 | XMS_ITS | Encounter Summary ---
Author Organization [facility] Address [address] [place] [address] Phone Care Team Providers Care Sfdc Developer Name Role Phone Camille Avila MD Primary Care Provider [phone] Nae Campos RN Unavailable Unavailable Encounter Details Date Type Department Care Team (Late st Contact Info) Description 02/27/2024 Lab Requisition [facility] [address] [place] [phone] [place] [address] [facility] Department of Medicine-Gastroentero [place] [phone] Social History Tobacco Use Types Packs/Day Years [...] place to sleep or slept in a usp (including now)? No 01/19/2024 Sex and Gender Information Value Date Recorded Sex Assigned at Not on file Legal Sex Male 11:53 PM EST Gender Identity Not on file Sexual Orientation Not on file COVID-19 Exposure Response Date Recorded In the last 10 days, have yo u been in contact with someone who was confirmed or suspected to have Coronavirus/COVID-19? No / Unsure 02/01/2024 9:22 AM EDT documented as of this encounter Plan of Treatment Upcoming Encounters Date Type Department Care Team (Late st Contact Info) Description 04/03/2025 10:00 AM EDT Office Visit [facility] [address] [address] [place] [address] Department of Medicine-Gastroenter ogy [place] [phone] documented as of this encounter Procedures Procedure Name Priority Date/Time Associated Diagnosis Comments TACROLIMUS Routine 02/27/2024 11:32 AM EDT documented in this encounter Results * Tacrolimus (02/27/2024 11:32 AM EDT) Tacrolimus 8.6 <=15.0 ng/mL LAB CHEMISTRY METHOD 02/28/2024 10:54 AM EDT [facility] Blood Venous blood specimen / Unknown 02/27/2024 11:32 AM EDT 02/27/2024 11:37 PM EDT Narrative [facility] - 02/28/2024 10:54 AM EDT NOTE: Result was obtained using a chemiluminescent microparticle immunoassay (CMIA) on the Radio Intelligence Operator i system. Optimal therapeutic ranges for immunosuppressant drugs depend upon an individual patient's current clinical state, type of organ transplant, time post-transplant, co-administration of other immunosuppressants, and other clinical factors. The results of this test should be correlated with additional clinical and laboratory data before changes in treatment regimens are made. us Sharan Ayoub MD LAB BLOOD ORDERABLES Final Re sult [facility] [id number] [place], [place] [address] documented in this encounter Visit Diagnoses Not on filedocumented in this encounter Care Teams Sfdc Developer Relationship Specialty Start Date End Date Camille Avila MD [address] [place] [address] PCP - General 05/19/16 Nae Campos, last turnerOffset Press Operator Apprentice Transplant 07/07/23 documented as of this encounter
--- OUTSIDE RECORDS SUMMARY | 2025-02-25 08:31 | XMS_ITS | Encounter Summary ---
Author Organization [facility] Address [address] [place] [address] Phone Care Team Providers Care Diesel Mechanic Farm Name Role Phone Camille Avila MD Primary Care Provider [phone] Nae Campos RN Unavailable Unavailable Encounter Details Date Type Department Care Team ([facility] Contact Info) Description 12/20/2016 Orders Only [facility] [address] [place] [place] [address] Conversion, Onbase Social History Tobacco Use Types Packs/Day Years Used Date Smoking Tobacco: Never Assessed Sex and Gender Information Value Date Recorded Sex Assigned at Not on file Legal Sex Male 11:53 PM EST Gender Identity Not on file Sexual Orientation Not on file documented as of this encounter Plan of Treatment Upcoming Encounters Date Type Department Care Team ([facility] Contact Info) Description 04/03/2025 10:00 AM EDT Office Visit [facility] [address] [facility] [address] [place] [phone] [place] [address] Department of Medicine-Gastroenter ology [place] [phone] Scheduled Orders Name Type Priority Associated Diagnoses Orde r Schedule OUTSIDE LAB SCAN Lab Ordered: 12/20/2016 documented as of this encounter Visit Diagnoses Not on filedocumented in this encounter Care Teams Diesel Mechanic Farm Relationship Specialty Start Date End Date Camille Avila MD [address] [place] [address] PCP - General 05/19/16 Nae Campos, protection analystMine Laborer Transplant 07/07/23 documented as of this encounter
--- OUTSIDE RECORDS SUMMARY | 2025-02-25 08:31 | XMS_ITS | Encounter Summary ---
Author Organization [facility] Address [address] [place] [address] Phone Care Team Providers Care Scientist Propagator Name Role Phone Camille Avila MD Primary Care Provider [phone] Nae Campos RN Unavailable Unavailable Encounter Details Date Type Department Care Team (Late st Contact Info) Description 02/17/2024 Lab Requisition [facility] [address] [place] [phone] [place] [address] [facility] Department of Medicine-Gastroen terology [place] [phone] Liver transplant rejection (Multi); Liver transplant status (Multi) Social History Tobacco Use Types Packs/Day [...] place to sleep or slept in a senior living (including now)? No 01/19/2024 Sex and Gender [...] Description 04/03/2025 10:00 AM EDT Office Visit [facility] [place] [address] [phone] [place] [address] Department [place] [address] documented as of this encounter Procedures Procedure Name Priority Date/Time Associated Diagnosis Comments TACROLIMUS Routine 02/15/2024 11:06 AM EDT Liver transplant rejection (Multi) Liver transplant status (Multi) documented in this encounter Results * Tacrolimus (02/15/2024 11:06 AM EDT) Tacrolimus 7.2 <=15.0 ng/mL LAB CHEMISTRY METHOD 02/17/2024 4:02 PM EDT [facility] Blood Venous blood specimen / Unknown 02/15/2024 11:06 AM EDT 02/17/2024 1:21 PM EDT Narrative [facility] - 02/17/2024 4:02 PM EDT NOTE: Result was obtained using a chemiluminescent microparticle immunoassay (CMIA) on the Nursery Laborer i system. Optimal therapeutic ranges for immunosuppressant drugs depend upon an individual patient's current clinical state, type of organ transplant, time post-transplant, co-administration of other immunosuppressants, and other clinical factors. The results of this test should be correlated with additional clinical and laboratory data before changes in treatment regimens are made. 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
--- OUTSIDE RECORDS SUMMARY | 2025-02-25 08:31 | XMS_ITS | Encounter Summary ---
Author Organization [facility] Address [address] [place] [address] Phone Care Team Providers Care Coin Box Collector Name Role Phone Camille Avila MD Primary Care Provider [phone] Nae Campos RN Unavailable Unavailable Encounter Details Date Type Department Care Team (Late Contact Info) Description 10/26/2019 Orders Only [facility] [address] [place] [address] Conversion, Onbase Social History Tobacco Use Types Packs/Day Years Used Date Smoking Tobacco: Never Assessed Sex and Gender Information Value Date Recorded Sex Assigned at Not on file Legal Sex Male 11:53 PM EST Gender Identity Not on file Sexual Orientation Not on file documented as of this encounter Plan of Treatment Upcoming Encounters Date Type Department Care Team (Late Contact Info) Description 04/03/2025 10:00 AM EDT Office Visit [facility] [place] [address] [facility] [address] [place] [phone] [place] [address] Department of Medicine-Gastroenter ology [place] [phone] Scheduled Orders Name Type Priority Associated Diagnoses Orde r Schedule OUTSIDE LAB SCAN Lab Ordered: 10/26/2019 documented as of this encounter Visit Diagnoses Not on filedocumented in this encounter Care Teams Coin Box Collector Relationship Specialty Start Date End Date Camille Avila MD [address] [place] [address] PCP - General 05/19/16 Nae Campos, continuous improvement black beltIce Cream Vendor Transplant 07/07/23 documented as of this encounter
--- OUTSIDE RECORDS SUMMARY | 2025-02-25 08:31 | XMS_ITS | Encounter Summary ---
Author Organization [facility] Address [address] [place] [address] Phone Care Team Providers Care Noodle Maker Name Role Phone Camille Avila MD Primary Care Provider [phone] Nae Campos RN Unavailable Unavailable Encounter Details Date Type Department Care Team ([facility] Contact Info) Description 12/27/2016 Orders Only [facility] [address] [place] [address] Conversion, Onbase Social History Tobacco Use Types Packs/Day Years Used Date Smoking Tobacco: Never Assessed Sex and Gender Information Value Date Recorded Sex Assigned at Not on file Legal Sex Male 11:53 PM EST Gender Identity Not on file Sexual Orientation Not on file documented as of this encounter Plan of Treatment Upcoming Encounters Date Type Department Care Team ([facility] Contact Info) Description 04/03/2025 10:00 AM EDT Office Visit [facility] [address] [facility] [address] [place] [phone] [place] [address] Department of Medicine-Gastroenter ology [place] [id number] Scheduled Orders Name Type Priority Associated Diagnoses Orde r Schedule OUTSIDE LAB SCAN Lab Ordered: 12/27/2016 documented as of this encounter Visit Diagnoses Not on filedocumented in this encounter Care Teams Noodle Maker Relationship Specialty Start Date End Date Camille Avila MD [address] [place] [address] PCP - General 05/19/16 Nae Campos, touch up edgerTyping Bookkeeper Transplant 07/07/23 documented as of this encounter
--- OUTSIDE RECORDS SUMMARY | 2025-02-25 08:31 | XMS_ITS | Encounter Summary ---
Author Organization [facility] Address [address] [place] [address] Phone Care Team Providers Care Wharf Attendant Name Role Phone Camille Avila MD Primary Care Provider [phone] Nae Campos RN Unavailable Unavailable Encounter Details Date Type Department Care Team ([facility] Contact Info) Description 01/27/2023 Orders Only [facility] [address] [place] [address] Conversion, Onbase Social History Tobacco Use Types Packs/Day Years Used Date Smoking Tobacco: Never Assessed Sex and Gender Information Value Date Recorded Sex Assigned at Not on file Legal Sex Male 11:53 PM EST Gender Identity Not on file Sexual Orientation Not on file documented as of this encounter Plan of Treatment Upcoming Encounters Date Type Department Care Team ([facility] Contact Info) Description 04/03/2025 10:00 AM EDT Office Visit [facility] [address] [place] [phone] [place] [address] Department of Medicine-Gastroenter ology [place] [id number] Scheduled Orders Name Type Priority Associated Diagnoses Orde r Schedule OUTSIDE LAB SCAN Lab Ordered: 01/27/2023 documented as of this encounter Visit Diagnoses Not on filedocumented in this encounter Care Teams Wharf Attendant Relationship Specialty Start Date End Date Camille Avila MD [address] [place] [address] PCP - General 05/19/16 Nae Campos, cadmium burnerEthernet Network Architect Transplant 07/07/23 documented as of this encounter
--- OUTSIDE RECORDS SUMMARY | 2025-02-25 08:31 | XMS_ITS | Encounter Summary ---
Author Organization [facility] Address [address] [place] [address] Phone Care Team Providers Care Fitness And Wellness Manager Name Role Phone Camille Avila MD Primary Care Provider [phone] Nae Campos RN Unavailable Unavailable Encounter Details Date Type Department Care Team ([facility] Contact Info) Description 01/13/2017 Orders Only [facility] [address] [place] [address] Conversion, Onbase Social History Tobacco Use Types Packs/Day Years Used Date Smoking Tobacco: Never Assessed Sex and Gender Information Value Date Recorded Sex Assigned at Not on file Legal Sex Male 11:53 PM EST Gender Identity Not on file Sexual Orientation Not on file documented as of this encounter Plan of Treatment Upcoming Encounters Date Type Department Care Team ([facility] Contact Info) Description 04/03/2025 10:00 AM EDT Office Visit [facility] [address] [facility] [address] [place] [phone] [place] [address] Department of Medicine-Gastroenter ology [place] [phone] Scheduled Orders Name Type Priority Associated Diagnoses Orde r Schedule OUTSIDE LAB SCAN Lab Ordered: 01/13/2017 documented as of this encounter Visit Diagnoses Not on filedocumented in this encounter Care Teams Fitness And Wellness Manager Relationship Specialty Start Date End Date Camille Avila MD [address] [place] [address] PCP - General 05/19/16 Nae Campos, mud jack operatorLaborer Dairy Farm Transplant 07/07/23 documented as of this encounter
--- OUTSIDE RECORDS SUMMARY | 2025-02-25 08:31 | XMS_ITS | Encounter Summary ---
Author Organization [facility] Address [address] [place] [address] Phone Care Team Providers Care Assisted Living Assistant Name Role Phone Camille Avila MD Primary Care Provider [phone] Nae Campos RN Unavailable Unavailable Encounter Details Date Type Department Care Team (Late st Contact Info) Description 04/09/2024 Lab Requisition [facility] [address] [place] [phone] [place] [address] Department of Medicine-Gastroen terology [place] [phone] Liver transplant rejection (Multi); Liver transplant status [...] to sleep or slept in a senior care (including now)? No 01/19/2024 Sex and Gender Information Value Date Recorded Sex Assigned at Not on file Legal Sex Male 11:53 PM EST Gender Identity Not on file Sexual Orientation Not on file documented as of this encounter Plan of Treatment Upcoming Encounters Date Type Department Care Team (Late st Contact Info) Description 04/03/2025 10:00 AM EDT Office Visit [facility] [address] [facility] [address] [place] [address] [place] [address] Department of Medicine-Gastroenter ology [place] [phone] documented as of this encounter Procedures Procedure Name Priority Date/Time Associated Diagnosis Comments TACROLIMUS Routine 04/09/2024 11:55 AM EDT Liver transplant rejection (Multi) Liver transplant status (Multi) documented in this encounter Results * Tacrolimus (04/09/2024 11:55 AM EDT) Tacrolimus 8.9 <=15.0 ng/mL LAB CHEMISTRY METHOD 04/10/2024 2:33 PM EDT [facility] Blood Venous blood specimen / Unknown 04/09/2024 11:55 AM EDT 04/09/2024 4:43 PM EDT Narrative [facility] - 04/10/2024 2:33 PM EDT NOTE: Result was obtained using a chemiluminescent microparticle immunoassay (CMIA) on the Metalizer Field [employer] i system. Optimal therapeutic ranges for immunosuppressant drugs depend upon an individual patient's current clinical state, type of organ transplant, time post-transplant, co-administration of other immunosuppressants, and other clinical factors. The results of this test should be correlated with additional clinical and laboratory data before changes in treatment regimens are made. 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
--- OUTSIDE RECORDS SUMMARY | 2025-02-25 08:31 | XMS_ITS | Encounter Summary ---
Author Organization [facility] Address [address] [place] [address] Phone Care Team Providers Care Commercial Carpenter Name Role Phone Camille Avila MD Primary Care Provider [phone] Nae Campos RN Unavailable Unavailable Encounter Details Date Type Department Care Team ([facility] Contact Info) Description 12/12/2016 Orders Only [facility] [address] [place] [address] Conversion, Onbase Social History Tobacco Use Types Packs/Day Years Used Date Smoking Tobacco: Never Assessed Sex and Gender Information Value Date Recorded Sex Assigned at Not on file Legal Sex Male 11:53 PM EST Gender Identity Not on file Sexual Orientation Not on file documented as of this encounter Plan of Treatment Upcoming Encounters Date Type Department Care Team ([facility] Contact Info) Description 04/03/2025 10:00 AM EDT Office Visit [facility] [address] [facility] [address] [place] [phone] [place] [address] Department of Medicine-Gastroenter ology [place] [phone] Scheduled Orders Name Type Priority Associated Diagnoses Orde r Schedule OUTSIDE LAB SCAN Lab Ordered: 12/12/2016 documented as of this encounter Visit Diagnoses Not on filedocumented in this encounter Care Teams Commercial Carpenter Relationship Specialty Start Date End Date Camille Avila MD [address] [place] [address] PCP - General 05/19/16 Nae Campos, telegraphic typewriter operator chiefCoin Counter And Wrapper Transplant 07/07/23 documented as of this encounter
--- OUTSIDE RECORDS SUMMARY | 2025-02-25 08:31 | XMS_ITS | Encounter Summary ---
Author Organization [facility] Address [address] [place] [address] Phone Care Team Providers Care Surgical Endoscopist Name Role Phone Camille Avila MD Primary Care Provider [phone] Nae Campos RN Unavailable Unavailable Encounter Details Date Type Department Care Team ([facility] Contact Info) Description 06/24/2017 Orders Only [facility] [address] [place] [address] Conversion, Onbase Social History Tobacco Use Types Packs/Day Years Used Date Smoking Tobacco: Never Assessed Sex and Gender Information Value Date Recorded Sex Assigned at Not on file Legal Sex Male 11:53 PM EST Gender Identity Not on file Sexual Orientation Not on file documented as of this encounter Plan of Treatment Upcoming Encounters Date Type Department Care Team ([facility] Contact Info) Description 04/03/2025 10:00 AM EDT Office Visit [facility] [place] [address] [facility] [address] [place] [phone] [place] [address] Department of Medicine-Gastroenter ology [place] [phone] Scheduled Orders Name Type Priority Associated Diagnoses Orde r Schedule OUTSIDE LAB SCAN Lab Ordered: 06/24/2017 documented as of this encounter Visit Diagnoses Not on filedocumented in this encounter Care Teams Surgical Endoscopist Relationship Specialty Start Date End Date Camille Avila MD [address] [place] [address] PCP - General 05/19/16 Nae Campos, application internshipOracle Bpm Developer Transplant 07/07/23 documented as of this encounter
--- OUTSIDE RECORDS SUMMARY | 2025-02-25 08:31 | XMS_ITS | Encounter Summary ---
Author Organization [facility] Address [address] [place] [address] Phone Care Team Providers Care Splitter Tender Name Role Phone Camille Avila MD Primary Care Provider [phone] Nae Campos RN Unavailable Unavailable Encounter Details Date Type Department Care Team ([facility] Contact Info) Description 02/20/2023 Orders Only [facility] [address] [place] [address] Conversion, Onbase Social History Tobacco Use Types Packs/Day Years Used Date Smoking Tobacco: Never Assessed Sex and Gender Information Value Date Recorded Sex Assigned at Not on file Legal Sex Male 11:53 PM EST Gender Identity Not on file Sexual Orientation Not on file documented as of this encounter Plan of Treatment Upcoming Encounters Date Type Department Care Team ([facility] Contact Info) Description 04/03/2025 10:00 AM EDT Office Visit [facility] [address] [place] [phone] [place] [address] Department of Medicine-Gastroenter ology [place] [phone] Scheduled Orders Name Type Priority Associated Diagnoses Orde r Schedule OUTSIDE LAB SCAN Lab Ordered: 02/20/2023 documented as of this encounter Visit Diagnoses Not on filedocumented in this encounter Care Teams Splitter Tender Relationship Specialty Start Date End Date Camille Avila MD [address] [place] [address] PCP - General 05/19/16 Nae Campos, carpet binderRotary Surface Grinder Transplant 07/07/23 documented as of this encounter
--- OUTSIDE RECORDS SUMMARY | 2025-02-25 08:31 | XMS_ITS ---
Author Organization [facility] Address [address] [place] [address] Phone Care Team Providers Care Adult Neuropsychologist Name Role Phone Camille Avila MD Primary Care Provider [phone] Nae Campos RN Unavailable Unavailable Transplant Episode Liver Recipient [facility] ([place], [place]) - [facility] Organ Received: Liver Transplanted on 04/08/2016 Marked as Active Follow-up on 04/08/2016 Liver CoordinatorNae Campos RN Phone: N/A Fax: N/A Email: N/A [place] Organ Diagnosis Organ Primary Contributory Liver Acute Hepatic Necrosis (ALAYNA): Dr mtz, Specify - (none) Rejection History Noted Survival Rejection Treatment Biopsy Resolved 08/16/2017 1 year 4 months Acute rejection of liver transplant (Multi) Infection History Noted Survival Infection Treatment Organism Resolved 07/18/2023 7 years 3 months 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 7 years 3 months EBV hepatitis 07/18/2023 7 years 3 months Cytomegalovirus (CMV) viremia (Multi) Donor Information Organ ABO Source Meets Risk Criteria HLA Match Mismatches Cross Match Liver Transplanted O DBD No A: B: DR: Liver Donor Serology Results Anti-CMV CMV IgG: Positive HBsAg HBsAg: Negative Anti-HBcAb HBC Total: Negative HBsAb No results on file HBV DNA No results on file Anti-HCV HCV: Negative Anti-HIV I/II HIV-1: Negative Anti-HTLV I/II HTLV: Not Done RPR/VDRL RPR: Negative EBV IgG EBV VCA IgG: Positive EBV IgM EBV VCA IgM: Negative EBNA No results on file Toxoplasma No results on file SARS CoV-2 No results on file Care Team Name Role Phone Fax Email Nae Campos RN Liver Coordinator N/A N/A N/A Sharan Ayoub MD Radio Reporter [phone] N/A Events Post-Transplant Pre-Transplant Admitted: 04/03/2016 Referred: 04/05/2016 Transplanted: 04/08/2016 Evaluation began: 6 Discharged: 04/21/2016 Center waitlisted: 6 Appointments (01/26/2025 - 03/28/2025) When With Visit Type Description 01/31/2025 Lab LAB DROP OFF Liver transplan t status (Primary Dx)
--- OUTSIDE RECORDS SUMMARY | 2025-02-25 08:31 | XMS_ITS | Clinical Summary ---
Author Organization [employer] [facility] Address [id number] [address] [place] [address] Care Team Providers Care Electronic Induction Hardener Name Role Phone Camille Avila MD Primary Care Provider [phone] Social History Tobacco Use Types Packs/Day Years Used Date Smoking Tobacco: Never Assessed Childcare Answer Date Recorded Childcare Unknown 03/14/2019 Employment Answer Date Recorded Employment Unknown 03/14/2019 Purpose - Life Answer Date Recorded Purpose and direction in life Unknown Sex and Gender Information Value Date Recorded Sex Assigned at Not on file Legal Sex Male 10:22 AM EST Gender Identity Not on file Sexual Orientation Not on file Plan of Treatment Health Maintenance Due Date Last Done Comments Depression Screening 2005 Tobacco Screening 2005 Adult BMI Screening 2011 DTaP,Tdap and Td Vaccines (2 - Td or Tdap) 03/16/2020 03/16/2010 Influenza Vaccine 06/02/2025 08/15/2016 Medical Devices Not on file Insurance [employer] [facility] Care Teams Electronic Induction Hardener Relationship Specialty Start Date End Date Camille Avila MD [address] [place] [address] PCP - General 05/09/17
--- OUTSIDE RECORDS SUMMARY | 2025-02-25 08:31 | XMS_ITS | Encounter Summary ---
Author Organization [facility] Address [address] [place] [address] Phone Care Team Providers Care Certified Public Accountant Name Role Phone Camille Avila MD Primary Care Provider [phone] Nae Campos RN Unavailable Unavailable Encounter Details Date Type Department Care Team ([facility] Contact Info) Description 08/31/2022 Orders Only [facility] [address] [place] [address] Conversion, Onbase Social History Tobacco Use Types Packs/Day Years Used Date Smoking Tobacco: Never Assessed Sex and Gender Information Value Date Recorded Sex Assigned at Not on file Legal Sex Male 11:53 PM EST Gender Identity Not on file Sexual Orientation Not on file documented as of this encounter Plan of Treatment Upcoming Encounters Date Type Department Care Team ([facility] Contact Info) Description 04/03/2025 10:00 AM EDT Office Visit [facility] [place] [address] [place] [phone] [place] [address] Department of Medicine-Gastroenter ology [place] [phone] Scheduled Orders Name Type Priority Associated Diagnoses Orde r Schedule OUTSIDE LAB SCAN Lab Ordered: 08/31/2022 documented as of this encounter Visit Diagnoses Not on filedocumented in this encounter Care Teams Certified Public Accountant Relationship Specialty Start Date End Date Camille Avila MD [address] [place] [address] PCP - General 05/19/16 Nae Campos, devops consultantQuality Assurance Inspector Transplant 07/07/23 documented as of this encounter
--- OUTSIDE RECORDS SUMMARY | 2025-02-25 08:31 | XMS_ITS | Encounter Summary ---
Author Organization [facility] Address [address] [place] [address] Phone Care Team Providers Care Research Contracts Supervisor Name Role Phone Camille Avila MD Primary Care Provider [phone] Nae Campos RN Unavailable Unavailable Encounter Details Date Type Department Care Team (Late st Contact Info) Description 02/22/2024 Lab Requisition [facility] [address] [place] [phone] [place] [address] [facility] Department of Medicine-Gastroentero [place] [id number] Social History Tobacco Use Types Packs/Day Years [...] place to sleep or slept in a alf (including now)? No 01/19/2024 Sex and Gender [...] Office Visit [facility] [place] [address] [facility] [address] [place] [address] [place] [address] Department of Medicine-Gastroenter ogy [place] [phone] documented as of this encounter Procedures Procedure Name Priority Date/Time Associated Diagnosis Comments TACROLIMUS Routine 02/21/2024 9:11 AM EDT documented in this encounter Results * Tacrolimus (02/21/2024 9:11 AM EDT) Tacrolimus 8.2 <=15.0 ng/mL LAB CHEMISTRY METHOD 02/22/2024 10:09 AM EDT [facility] Blood Venous blood specimen / Unknown 02/21/2024 9:11 AM EDT 02/22/2024 1:42 AM EDT Narrative [facility] - 02/22/2024 10:09 AM EDT NOTE: Result was obtained using a chemiluminescent microparticle immunoassay (CMIA) on the Crime Specialist i system. Optimal therapeutic ranges for immunosuppressant drugs depend upon an individual patient's current clinical state, type of organ transplant, time post-transplant, co-administration of other immunosuppressants, and other clinical factors. The results of this test should be correlated with additional clinical and laboratory data before changes in treatment regimens are made. us Sharan Ayoub MD LAB BLOOD ORDERABLES Final Re sult [facility] [id number] [place] [address] documented in this encounter Visit Diagnoses Not on filedocumented in this encounter Care Teams Research Contracts Supervisor Relationship Specialty Start Date End Date Camille Avila MD [address] [place] [address] PCP - General 05/19/16 Nae Campos, educational psychology professorInternet Merchant Transplant 07/07/23 documented as of this encounter
--- OUTSIDE RECORDS SUMMARY | 2025-02-25 08:31 | XMS_ITS | Encounter Summary ---
Author Organization [facility] Address [address] [place] [address] Phone Care Team Providers Care Trench Trimmer Fine Name Role Phone Camille Avila MD Primary Care Provider [phone] Nae Campos RN Unavailable Unavailable Encounter Details Date Type Department Care Team ([facility] Contact Info) Description 02/20/2023 Orders Only [facility] [address] [place] [address] Conversion, Onbase Social History Tobacco Use Types Packs/Day Years Used Date Smoking Tobacco: Never Assessed Sex and Gender Information Value Date Recorded Sex Assigned at Not on file Legal Sex Male 11:53 PM EST Gender Identity Not on file Sexual Orientation Not on file documented as of this encounter Plan of Treatment Upcoming Encounters Date Type Department Care Team ([facility] Contact Info) Description 04/03/2025 10:00 AM EDT Office Visit [facility] [address] [place] [phone] [place] [address] Department of Medicine-Gastroenter ology [place] [phone] Scheduled Orders Name Type Priority Associated Diagnoses Orde r Schedule OUTSIDE LAB SCAN Lab Ordered: 02/20/2023 documented as of this encounter Visit Diagnoses Not on filedocumented in this encounter Care Teams Trench Trimmer Fine Relationship Specialty Start Date End Date Camille Avila MD [address] [place] [address] PCP - General 05/19/16 Nae Campos, copy center operatorDirector Instructional Material Transplant 07/07/23 documented as of this encounter
--- OUTSIDE RECORDS SUMMARY | 2025-02-25 08:31 | XMS_ITS | Encounter Summary ---
Author Organization [facility] Address [address] [place] [address] Phone Care Team Providers Care Glove Finisher Name Role Phone Camille Avila MD Primary Care Provider [phone] Nae Campos RN Unavailable Unavailable Encounter Details Date Type Department Care Team (Late Contact Info) Description 05/04/2020 Orders Only [facility] [address] [place] [address] Conversion, Onbase Social History Tobacco Use Types [...] AM EDT Office Visit [facility] [address] [facility] [address] [place] [phone] [place] [address] Department of Medicine-Gastroenter ology [place] [phone] Scheduled Orders Name Type Priority Associated Diagnoses Orde r Schedule OUTSIDE LAB SCAN Lab Ordered: 05/04/2020 documented as of this encounter Visit Diagnoses Not on filedocumented in this encounter Care Teams Glove Finisher Relationship Specialty Start Date End Date Camille Avila MD [address] [place] [address] PCP - General 05/19/16 Nae Campos, craft workerKitchen Cleaner Transplant 07/07/23 documented as of this encounter
--- OUTSIDE RECORDS SUMMARY | 2025-02-25 08:31 | XMS_ITS | Encounter Summary ---
Author Organization [facility] Address [address] [place] [address] Phone Care Team Providers Care Fairing Man Name Role Phone Camille Avila MD Primary Care Provider [phone] Nae Campos RN Unavailable Unavailable Encounter Details Date Type Department Care Team ([facility] Contact Info) Description 03/08/2017 Orders Only [facility] [address] [place] [address] Conversion, Onbase Social History Tobacco Use Types Packs/Day Years Used Date Smoking Tobacco: Never Assessed Sex and Gender Information Value Date Recorded Sex Assigned at Not on file Legal Sex Male 11:53 PM EST Gender Identity Not on file Sexual Orientation Not on file documented as of this encounter Plan of Treatment Upcoming Encounters Date Type Department Care Team ([facility] Contact Info) Description 04/03/2025 10:00 AM EDT Office Visit [facility] [address] [facility] [address] [place] [address] [phone] [place] [address] Department of Medicine-Gastroenter ology [place] [id number] Scheduled Orders Name Type Priority Associated Diagnoses Orde r Schedule OUTSIDE LAB SCAN Lab Ordered: 03/08/2017 documented as of this encounter Visit Diagnoses Not on filedocumented in this encounter Care Teams Fairing Man Relationship Specialty Start Date End Date Camille Avila MD [address] [place] [address] PCP - General 05/19/16 Nae Campos, compression molding machine setterOn Car Supervisor Transplant 07/07/23 documented as of this encounter
--- OUTSIDE RECORDS SUMMARY | 2025-02-25 08:31 | XMS_ITS | Encounter Summary ---
Author Organization [facility] Address [address] [place] [address] Phone Care Team Providers Care Feeder Associate Name Role Phone Camille Avila MD Primary Care Provider [phone] Nae Campos RN Unavailable Unavailable Encounter Details Date Type Department Care Team (Late st Contact Info) Description 03/13/2024 Lab Requisition [facility] [address] [place] [phone] [place] [address] [facility] Department of Medicine-Gastroentero [place] [phone] Social History Tobacco Use Types Packs/Day Years [...] or slept in a assisted (including now)? No 01/19/2024 Sex and Gender Information Value Date Recorded Sex Assigned at Not on file Legal Sex Male 11:53 PM EST Gender Identity Not on file Sexual Orientation Not on file documented as of this encounter Plan of Treatment Upcoming Encounters Date Type Department Care Team (Late st Contact Info) Description 04/03/2025 10:00 AM EDT Office Visit [facility] [address] [address] [place] [address] [address] Department of Medicine-[facility]enter [facility] [place] [phone] documented as of this encounter Procedures Procedure Name Priority Date/Time Associated Diagnosis Comments TACROLIMUS Routine 2024 9:25 AM EDT documented in this encounter Results * Tacrolimus (2024 9:25 AM EDT) Tacrolimus 10.1 <=15.0 ng/mL LAB CHEMISTRY METHOD 03/13/2024 11:02 AM EDT [facility] Blood Venous blood specimen / Unknown 2024 9:25 AM EDT 03/13/2024 12:56 AM EDT Narrative [facility] - 03/13/2024 11:02 AM EDT NOTE: Result was obtained using a chemiluminescent microparticle immunoassay (CMIA) on the Senior Salesforce Developer i system. Optimal therapeutic ranges for immunosuppressant drugs depend upon an individual patient's current clinical state, type of organ transplant, time post-transplant, co-administration of other immunosuppressants, and other clinical factors. The results of this test should be correlated with additional clinical and laboratory data before changes in treatment regimens are made. us Sharan Ayoub MD LAB BLOOD ORDERABLES Final Re sult [facility] [id number] [place], [place] [id number] documented in this encounter Visit Diagnoses Not on filedocumented in this encounter Care Teams Feeder Associate Relationship Specialty Start Date End Date Camille Avila MD [address] [place] [address] PCP - General 05/19/16 Nae Campos RN Hand Stoner Transplant 07/07/23 documented as of this encounter
--- OUTSIDE RECORDS SUMMARY | 2025-02-25 08:31 | XMS_ITS | Encounter Summary ---
Author Organization [facility] Address [address] [place] [address] Phone Care Team Providers Care Web Marketing Specialist Name Role Phone Camille Avila MD Primary Care Provider [phone] Nae Campos RN Unavailable Unavailable Encounter Details Date Type Department Care Team ([facility] Contact Info) Description 03/28/2023 Orders Only [facility] [address] [place] [address] Conversion, Onbase Social History Tobacco Use Types Packs/Day Years Used Date Smoking Tobacco: Never Assessed Sex and Gender Information Value Date Recorded Sex Assigned at Not on file Legal Sex Male 11:53 PM EST Gender Identity Not on file Sexual Orientation Not on file documented as of this encounter Plan of Treatment Upcoming Encounters Date Type Department Care Team ([facility] Contact Info) Description 04/03/2025 10:00 AM EDT Office Visit [facility] [address] [place] [phone] [place] [address] Department of Medicine-Gastroenter ology [place] [phone] Scheduled Orders Name Type Priority Associated Diagnoses Orde r Schedule OUTSIDE LAB SCAN Lab Ordered: 03/28/2023 documented as of this encounter Visit Diagnoses Not on filedocumented in this encounter Care Teams Web Marketing Specialist Relationship Specialty Start Date End Date Camille Avila MD [address] [place] [address] PCP - General 05/19/16 Nae Campos, canadian bacon tierProcurement Intern Transplant 07/07/23 documented as of this encounter
--- OUTSIDE RECORDS SUMMARY | 2025-02-25 08:31 | XMS_ITS | Encounter Summary ---
Author Organization [facility] Address [address] [place] [address] Phone Care Team Providers Care Coroner/Medical Examiner Name Role Phone Camille Avila MD Primary Care Provider [phone] Nae Campos RN Unavailable Unavailable Encounter Details Date Type Department Care Team ([facility] Contact Info) Description 03/28/2017 Orders Only [facility] [address] [place] [address] Conversion, Onbase Social History Tobacco Use Types Packs/Day Years Used Date Smoking Tobacco: Never Assessed Sex and Gender Information Value Date Recorded Sex Assigned at Not on file Legal Sex Male 11:53 PM EST Gender Identity Not on file Sexual Orientation Not on file documented as of this encounter Plan of Treatment Upcoming Encounters Date Type Department Care Team ([facility] Contact Info) Description 04/03/2025 10:00 AM EDT Office Visit [facility] [address] [facility] [address] [place] [address] [phone] [place] [address] Department of Medicine-Gastroenter ology [place] [phone] Scheduled Orders Name Type Priority Associated Diagnoses Orde r Schedule OUTSIDE LAB SCAN Lab Ordered: 03/28/2017 documented as of this encounter Visit Diagnoses Not on filedocumented in this encounter Care Teams Coroner/Medical Examiner Relationship Specialty Start Date End Date Camille Avila MD [address] [place] [address] PCP - General 05/19/16 Nae Campos, tyre retreaderPackage Delivery Room Service Runner Transplant 07/07/23 documented as of this encounter
--- OUTSIDE RECORDS SUMMARY | 2025-02-25 08:31 | XMS_ITS | Encounter Summary ---
Author Organization [facility] Address [address] [place] [address] Phone Care Team Providers Care Orderly Name Role Phone Camille Avila MD Primary Care Provider [phone] Nae Campos RN Unavailable Unavailable Encounter Details Date Type Department Care Team ([facility] Contact Info) Description 01/16/2023 Orders Only [facility] [address] [place] [address] Conversion, Onbase Social History Tobacco Use Types Packs/Day Years Used Date Smoking Tobacco: Never Assessed Sex and Gender Information Value Date Recorded Sex Assigned at Not on file Legal Sex Male 11:53 PM EST Gender Identity Not on file Sexual Orientation Not on file documented as of this encounter Plan of Treatment Upcoming Encounters Date Type Department Care Team ([facility] Contact Info) Description 04/03/2025 10:00 AM EDT Office Visit [facility] [address] [place] [phone] [place] [address] Department of Medicine-Gastroenter ology [place] [phone] Scheduled Orders Name Type Priority Associated Diagnoses Orde r Schedule OUTSIDE LAB SCAN Lab Ordered: 01/16/2023 documented as of this encounter Visit Diagnoses Not on filedocumented in this encounter Care Teams Orderly Relationship Specialty Start Date End Date Camille Avila MD [address] [place] [address] PCP - General 05/19/16 Nae Campos, air support operations operatorWater Main Installer Helper Transplant 07/07/23 documented as of this encounter
--- OUTSIDE RECORDS SUMMARY | 2025-02-25 08:31 | XMS_ITS | Encounter Summary ---
Author Organization [facility] Address [address] [place] [address] Phone Care Team Providers Care Event Management Consultant Name Role Phone Camille Avila MD Primary Care Provider [phone] Nae Campos RN Unavailable Unavailable Encounter Details Date Type Department Care Team ([facility] Contact Info) Description 06/01/2018 Orders Only [facility] [address] [place] [address] Conversion, Onbase Social History Tobacco Use Types Packs/Day Years Used Date Smoking Tobacco: Never Assessed Sex and Gender Information Value Date Recorded Sex Assigned at Not on file Legal Sex Male 11:53 PM EST Gender Identity Not on file Sexual Orientation Not on file documented as of this encounter Plan of Treatment Upcoming Encounters Date Type Department Care Team ([facility] Contact Info) Description 04/03/2025 10:00 AM EDT Office Visit [facility] [address] [facility] [address] [address] [phone] [place] [address] Department of Medicine-Gastroenter ology [place] [phone] Scheduled Orders Name Type Priority Associated Diagnoses Orde r Schedule OUTSIDE LAB SCAN Lab Ordered: 06/01/2018 documented as of this encounter Visit Diagnoses Not on filedocumented in this encounter Care Teams Event Management Consultant Relationship Specialty Start Date End Date Camille Avila MD [address] [place] [address] PCP - General 05/19/16 Nae Campos, pre billing clinicianCompliance Quality Performance Analyst Transplant 07/07/23 documented as of this encounter
--- OUTSIDE RECORDS SUMMARY | 2025-02-25 08:31 | XMS_ITS | Encounter Summary ---
Author Organization [facility] Address [address] [place] [address] Phone Care Team Providers Care Knitting Supervisor Name Role Phone Camille Avila MD Primary Care Provider [phone] Nae Campos RN Unavailable Unavailable Encounter Details Date Type Department Care Team ([facility] Contact Info) Description 04/14/[address] [facility] [address] [place] [address] Conversion, Onbase Social History Tobacco Use Types Packs/Day Years Used Date Smoking Tobacco: Never Assessed Sex and Gender Information Value Date Recorded Sex Assigned at Not on file Legal Sex Male 11:53 PM EST Gender Identity Not on file Sexual Orientation Not on file documented as of this encounter Plan of Treatment Upcoming Encounters Date Type Department Care Team ([facility] Contact Info) Description 04/03/2025 10:00 AM EDT Office Visit [facility] [address] [facility] [address] [place] [phone] [place] [address] Department of Medicine-Gastroenter ology [place] [phone] Scheduled Orders Name Type Priority Associated Diagnoses Orde r Schedule OUTSIDE LAB SCAN Lab Ordered: 04/14/2017 documented as of this encounter Visit Diagnoses Not on filedocumented in this encounter Care Teams Knitting Supervisor Relationship Specialty Start Date End Date Camille Avila MD [address] [place] [address] PCP - General 05/19/16 Nae Campos, car unloader helperMarsh Buggy Operator Transplant 07/07/23 documented as of this encounter
--- OUTSIDE RECORDS SUMMARY | 2025-02-25 08:31 | XMS_ITS | Encounter Summary ---
Author Organization [facility] Address [address] [place] [address] Phone Care Team Providers Care Presbyterian Clergy Name Role Phone Camille Avila MD Primary Care Provider [phone] Nae Campos RN Unavailable Unavailable Encounter Details Date Type Department Care Team ([facility] Contact Info) Description 03/29/2023 Orders Only [facility] [address] [place] [address] Conversion, Onbase Social History Tobacco Use Types [...] Description 04/03/2025 10:00 AM EDT Office Visit [facility] [address] [place] [phone] [place] [address] Department of Medicine-Gastroenter ology [place] [phone] Scheduled Orders Name Type Priority Associated Diagnoses Orde r Schedule OUTSIDE LAB SCAN Lab Ordered: 03/29/2023 documented as of this encounter Visit Diagnoses Not on filedocumented in this encounter Care Teams Presbyterian Clergy Relationship Specialty Start Date End Date Camille Avila MD [address] [place] [address] PCP - General 05/19/16 Nae Campos, wax molderCoater Carbon Paper Transplant 07/07/23 documented as of this encounter
--- OUTSIDE RECORDS SUMMARY | 2025-02-25 08:31 | XMS_ITS | Encounter Summary ---
Author Organization [facility] Address [address] [place] [address] Phone Care Team Providers Care Apparatus Cleaner Name Role Phone Camille Avila MD Primary Care Provider [phone] Nae Campos RN Unavailable Unavailable Encounter Details Date Type Department Care Team ([facility] Contact Info) Description 03/17/[address] [facility] [address] [place] [address] Conversion, Onbase Social History Tobacco Use Types [...] Description 04/03/2025 10:00 AM EDT Office Visit [facility] [address] [place] [phone] [place] [address] Department of Medicine-Gastroenter ology [place] [phone] Scheduled Orders Name Type Priority Associated Diagnoses Orde r Schedule OUTSIDE LAB SCAN Lab Ordered: 03/17/2023 documented as of this encounter Visit Diagnoses Not on filedocumented in this encounter Care Teams Apparatus Cleaner Relationship Specialty Start Date End Date Camille Avila MD [address] [place] [address] PCP - General 05/19/16 Nae Campos, disintegrator feederData Migration Consultant Transplant 07/07/23 documented as of this encounter
--- OUTSIDE RECORDS SUMMARY | 2025-02-25 08:31 | XMS_ITS | Encounter Summary ---
Author Organization [facility] Address [address] [place] [address] Phone Care Team Providers Care Roofing Contractor Name Role Phone Camille Avila MD Primary Care Provider [phone] Nae Campos RN Unavailable Unavailable Encounter Details Date Type Department Care Team ([facility] Contact Info) Description 02/20/2023 Orders Only [facility] [address] [place] [address] Conversion, Onbase Social History Tobacco Use Types Packs/Day Years Used Date Smoking Tobacco: Never Assessed Sex and Gender Information Value Date Recorded Sex Assigned at Not on file Legal Sex Male 11:53 PM EST Gender Identity Not on file Sexual Orientation Not on file documented as of this encounter Plan of Treatment Upcoming Encounters Date Type Department Care Team ([facility] Contact Info) Description 04/03/2025 10:00 AM EDT Office Visit [facility] [address] [place] [phone] [place] [address] Department of Medicine-Gastroenter ology [place] [phone] Scheduled Orders Name Type Priority Associated Diagnoses Orde r Schedule OUTSIDE LAB SCAN Lab Ordered: 02/20/2023 documented as of this encounter Visit Diagnoses Not on filedocumented in this encounter Care Teams Roofing Contractor Relationship Specialty Start Date End Date Camille Avila MD [address] [place] [address] PCP - General 05/19/16 Nae Campos, process safety managerBleach Machine Operator Transplant 07/07/23 documented as of this encounter
--- OUTSIDE RECORDS SUMMARY | 2025-02-25 08:31 | XMS_ITS | Encounter Summary ---
Author Organization [facility] Address [address] [place] [address] Phone Care Team Providers Care Belt Tender Name Role Phone Camille Avila MD Primary Care Provider [phone] Nae Campos RN Unavailable Unavailable Encounter Details Date Type Department Care Team ([facility] Contact Info) Description 05/03/2022 Orders Only [facility] [address] [place] [address] Conversion, Onbase Social History Tobacco Use Types Packs/Day Years Used Date Smoking Tobacco: Never Assessed Sex and Gender Information Value Date Recorded Sex Assigned at Not on file Legal Sex Male 11:53 PM EST Gender Identity Not on file Sexual Orientation Not on file documented as of this encounter Plan of Treatment Upcoming Encounters Date Type Department Care Team ([facility] Contact Info) Description 04/03/2025 10:00 AM EDT Office Visit [facility] [address] [place] [phone] [place] [address] Department of Medicine-Gastroenter ology [place] [phone] Scheduled Orders Name Type Priority Associated Diagnoses Orde r Schedule OUTSIDE LAB SCAN Lab Ordered: 05/03/2022 documented as of this encounter Visit Diagnoses Not on filedocumented in this encounter Care Teams Belt Tender Relationship Specialty Start Date End Date Camille Avila MD [address] [place] [address] PCP - General 05/19/16 Nae Campos, assistant county attorneyCorn Sheller Operator Transplant 07/07/23 documented as of this encounter
--- OUTSIDE RECORDS SUMMARY | 2025-02-25 08:31 | XMS_ITS | Encounter Summary ---
Author Organization [facility] Address [address] [place] [address] Phone Care Team Providers Care Cash Processor Name Role Phone Camille Avila MD Primary Care Provider [phone] Nae Campos RN Unavailable Unavailable Encounter Details Date Type Department Care Team ([facility] Contact Info) Description 12/22/2017 Orders Only [facility] [address] [place] [address] Conversion, Onbase Social History Tobacco Use Types Packs/Day Years Used Date Smoking Tobacco: Never Assessed Sex and Gender Information Value Date Recorded Sex Assigned at Not on file Legal Sex Male 11:53 PM EST Gender Identity Not on file Sexual Orientation Not on file documented as of this encounter Plan of Treatment Upcoming Encounters Date Type Department Care Team ([facility] Contact Info) Description 04/03/2025 10:00 AM EDT Office Visit [facility] [address] [facility] [address] [place] [phone] [place] [address] Department of Medicine-Gastroenter ology [place] [phone] Scheduled Orders Name Type Priority Associated Diagnoses Orde r Schedule OUTSIDE LAB SCAN Lab Ordered: 12/22/2017 documented as of this encounter Visit Diagnoses Not on filedocumented in this encounter Care Teams Cash Processor Relationship Specialty Start Date End Date Camille Avila MD [address] [place] [address] PCP - General 05/19/16 Nae Campos, business administration instructorMattress Filler Transplant 07/07/23 documented as of this encounter
--- OUTSIDE RECORDS SUMMARY | 2025-02-25 08:31 | XMS_ITS | Encounter Summary ---
Author Organization [facility] Address [address] [place] [address] Phone Care Team Providers Care Test Fixture Designer Name Role Phone Camille Avila MD Primary Care Provider [phone] Nae Campos RN Unavailable Unavailable Encounter Details Date Type Department Care Team ([facility] Contact Info) Description 02/13/2017 Orders Only [facility] [address] [place] [address] Conversion, Onbase Social History Tobacco Use Types Packs/Day Years Used Date Smoking Tobacco: Never Assessed Sex and Gender Information Value Date Recorded Sex Assigned at Not on file Legal Sex Male 11:53 PM EST Gender Identity Not on file Sexual Orientation Not on file documented as of this encounter Plan of Treatment Upcoming Encounters Date Type Department Care Team ([facility] Contact Info) Description 04/03/2025 10:00 AM EDT Office Visit [facility] [address] [facility] [address] [place] [phone] [place] [address] Department of Medicine-Gastroenter ology [place] [phone] Scheduled Orders Name Type Priority Associated Diagnoses Orde r Schedule OUTSIDE LAB SCAN Lab Ordered: 02/13/2017 documented as of this encounter Visit Diagnoses Not on filedocumented in this encounter Care Teams Test Fixture Designer Relationship Specialty Start Date End Date Camille Avila MD [address] [place] [address] PCP - General 05/19/16 Nae Campos, experimental physicistNuclear Medicine Medical Director Transplant 07/07/23 documented as of this encounter
--- OUTSIDE RECORDS SUMMARY | 2025-02-25 08:31 | XMS_ITS | Encounter Summary ---
Author Organization [facility] Address [address] [place] [address] Phone Care Team Providers Care Director Adult Name Role Phone Camille Avila MD Primary Care Provider [phone] Nae Campos RN Unavailable Unavailable Encounter Details Date Type Department Care Team (Late Contact Info) Description 11/15/2019 Orders Only [facility] [address] [place] [address] Conversion, Onbase Social History Tobacco Use Types [...] Description 04/03/2025 10:00 AM EDT Office Visit [facility] [address] [facility] [address] [place] [phone] [place] [address] Department of Medicine-Gastroenter ology [place] [phone] Scheduled Orders Name Type Priority Associated Diagnoses Orde r Schedule OUTSIDE LAB SCAN Lab Ordered: 11/15/2019 documented as of this encounter Visit Diagnoses Not on filedocumented in this encounter Care Teams Director Adult Relationship Specialty Start Date End Date Camille Avila MD [address] [place] [address] PCP - General 05/19/16 Nae Campos, application specActivity Therapy Teacher Transplant 07/07/23 documented as of this encounter
--- OUTSIDE RECORDS SUMMARY | 2025-02-25 08:31 | XMS_ITS | Encounter Summary ---
Author Organization [facility] Address [address] [place] [address] Phone Care Team Providers Care Instrument Lens Grinder Name Role Phone Camille Avila MD Primary Care Provider [phone] Nae Campos RN Unavailable Unavailable Encounter Details Date Type Department Care Team ([facility] Contact Info) Description 12/23/2022 Orders Only [facility] [address] [place] [address] Conversion, Onbase Social History Tobacco Use Types Packs/Day Years Used Date Smoking Tobacco: Never Assessed Sex and Gender Information Value Date Recorded Sex Assigned at Not on file Legal Sex Male 11:53 PM EST Gender Identity Not on file Sexual Orientation Not on file documented as of this encounter Plan of Treatment Upcoming Encounters Date Type Department Care Team ([facility] Contact Info) Description 04/03/2025 10:00 AM EDT Office Visit [facility] [address] [place] [phone] [place] [address] Department of Medicine-Gastroenter ology [place] [phone] Scheduled Orders Name Type Priority Associated Diagnoses Orde r Schedule OUTSIDE LAB SCAN Lab Ordered: 12/23/2022 documented as of this encounter Visit Diagnoses Not on filedocumented in this encounter Care Teams Instrument Lens Grinder Relationship Specialty Start Date End Date Camille Avila MD [address] [place] [address] PCP - General 05/19/16 Nae Campos, florist supplies salespersonQuality Improvement Specialist Transplant 07/07/23 documented as of this encounter
--- OUTSIDE RECORDS SUMMARY | 2025-02-25 08:31 | XMS_ITS | Encounter Summary ---
Author Organization [facility] Address [address] [place] [address] Phone Care Team Providers Care Sheet Heater Name Role Phone Camille Avila MD Primary Care Provider [phone] Nae Campos RN Unavailable Unavailable Encounter Details Date Type Department Care Team ([facility] Contact Info) Description 06/01/2018 Orders Only [facility] [address] [place] [address] Conversion, Onbase Social History Tobacco Use Types Packs/Day Years Used Date Smoking Tobacco: Never Assessed Sex and Gender Information Value Date Recorded Sex Assigned at Not on file Legal Sex Male 11:53 PM EST Gender Identity Not on file Sexual Orientation Not on file documented as of this encounter Plan of Treatment Upcoming Encounters Date Type Department Care Team ([facility] Contact Info) Description 04/03/2025 10:00 AM EDT Office Visit [facility] [address] [facility] [address] [place] [phone] [place] [address] Department of Medicine-Gastroenter ology [place] [phone] Scheduled Orders Name Type Priority Associated Diagnoses Orde r Schedule OUTSIDE LAB SCAN Lab Ordered: 06/01/2018 documented as of this encounter Visit Diagnoses Not on filedocumented in this encounter Care Teams Sheet Heater Relationship Specialty Start Date End Date Camille Avila MD [address] [place] [address] PCP - General 05/19/16 Nae Campos, car washerIt Specialist Transplant 07/07/23 documented as of this encounter
--- OUTSIDE RECORDS SUMMARY | 2025-02-25 08:31 | XMS_ITS | Encounter Summary ---
Author Organization [facility] Address [address] [place] [address] Phone Care Team Providers Care Bible Teacher Name Role Phone Camille Avila MD Primary Care Provider [phone] Nae Campos RN Unavailable Unavailable Encounter Details Date Type Department Care Team ([facility] Contact Info) Description 12/29/2018 Orders Only [facility] [address] [place] [address] Conversion, Onbase Social History Tobacco Use Types Packs/Day Years Used Date Smoking Tobacco: Never Assessed Sex and Gender Information Value Date Recorded Sex Assigned at Not on file Legal Sex Male 11:53 PM EST Gender Identity Not on file Sexual Orientation Not on file documented as of this encounter Plan of Treatment Upcoming Encounters Date Type Department Care Team ([facility] Contact Info) Description 04/03/2025 10:00 AM EDT Office Visit [facility] [address] [facility] [address] [place] [phone] [place] [address] Department of Medicine-Gastroenter ology [place] [phone] Scheduled Orders Name Type Priority Associated Diagnoses Orde r Schedule OUTSIDE LAB SCAN Lab Ordered: 12/29/2018 documented as of this encounter Visit Diagnoses Not on filedocumented in this encounter Care Teams Bible Teacher Relationship Specialty Start Date End Date Camille Avila MD [address] [place] [address] PCP - General 05/19/16 Nae Campos, j2ee engineerTrolley Car Operator Transplant 07/07/23 documented as of this encounter
--- OUTSIDE RECORDS SUMMARY | 2025-02-25 08:31 | XMS_ITS | Encounter Summary ---
Author Organization [facility] Address [address] [place] [address] Phone Care Team Providers Care [facility] Name Role Phone Camille Avila MD Primary Care Provider [phone] Nae Campos RN Unavailable Unavailable Encounter Details Date Type Department Care Team ([facility] Contact Info) Description 05/03/2017 Orders Only [facility] [address] [place] [address] Conversion, Onbase Social History Tobacco Use Types [...] Description 04/03/2025 10:00 AM EDT Office Visit [facility] [address] [facility] [address] [place] [phone] [place] [address] Department of Medicine-Gastroenter ology [place] [phone] Scheduled Orders Name Type Priority Associated Diagnoses Orde r Schedule OUTSIDE LAB SCAN Lab Ordered: 05/03/2017 documented as of this encounter Visit Diagnoses Not on filedocumented in this encounter Care Teams [facility] Relationship Specialty Start Date End Date Camille Avila MD [address] [place] [address] PCP - General 05/19/16 Nae Campos, chief administrative officerJewel Bearing Turner Transplant 07/07/23 documented as of this encounter
--- OUTSIDE RECORDS SUMMARY | 2025-02-25 08:31 | XMS_ITS | Encounter Summary ---
Author Organization [facility] Address [address] [place] [address] Phone Care Team Providers Care Greenhouse Florist Name Role Phone Camille Avila MD Primary Care Provider [phone] Nae Campos RN Unavailable Unavailable Encounter Details Date Type Department Care Team ([facility] Contact Info) Description 01/06/2017 Orders Only [facility] [address] [place] [address] Conversion, Onbase Social History Tobacco Use Types Packs/Day Years Used Date Smoking Tobacco: Never Assessed Sex and Gender Information Value Date Recorded Sex Assigned at Not on file Legal Sex Male 11:53 PM EST Gender Identity Not on file Sexual Orientation Not on file documented as of this encounter Plan of Treatment Upcoming Encounters Date Type Department Care Team ([facility] Contact Info) Description 04/03/2025 10:00 AM EDT Office Visit [facility] [address] [facility] [address] [place] [phone] [place] [address] Department of Medicine-Gastroenter ology [place] [phone] Scheduled Orders Name Type Priority Associated Diagnoses Orde r Schedule OUTSIDE LAB SCAN Lab Ordered: 01/06/2017 documented as of this encounter Visit Diagnoses Not on filedocumented in this encounter Care Teams Greenhouse Florist Relationship Specialty Start Date End Date Camille Avila MD [address] [place] [address] PCP - General 05/19/16 Nae Campos, trim technicianMethodologist Transplant 07/07/23 documented as of this encounter
--- OUTSIDE RECORDS SUMMARY | 2025-02-25 08:31 | XMS_ITS | Encounter Summary ---
Author Organization [facility] Address [address] [place] [address] Phone Care Team Providers Care Breakfast And Room Attendant Name Role Phone Camille Avila MD Primary Care Provider [phone] Nae Campos RN Unavailable Unavailable Encounter Details Date Type Department Care Team ([facility] Contact Info) Description 12/04/2017 Orders Only [facility] [address] [place] [address] Conversion, Onbase Social History Tobacco Use Types Packs/Day Years Used Date Smoking Tobacco: Never Assessed Sex and Gender Information Value Date Recorded Sex Assigned at Not on file Legal Sex Male 11:53 PM EST Gender Identity Not on file Sexual Orientation Not on file documented as of this encounter Plan of Treatment Upcoming Encounters Date Type Department Care Team ([facility] Contact Info) Description 04/03/2025 10:00 AM EDT Office Visit [facility] [address] [facility] [address] [place] [phone] [place] [address] Department of Medicine-Gastroenter ology [place] [phone] Scheduled Orders Name Type Priority Associated Diagnoses Orde r Schedule OUTSIDE LAB SCAN Lab Ordered: 12/04/2017 documented as of this encounter Visit Diagnoses Not on filedocumented in this encounter Care Teams Breakfast And Room Attendant Relationship Specialty Start Date End Date Camille Avila MD [address] [place] [address] PCP - General 05/19/16 Nae Campos, firer portable boilerRoll Finisher Transplant 07/07/23 documented as of this encounter
--- OUTSIDE RECORDS SUMMARY | 2025-02-25 08:31 | XMS_ITS | Encounter Summary ---
Author Organization [facility] Address [address] [place] [address] Phone Care Team Providers Care Slab Inspector Name Role Phone Camille Avila MD Primary Care Provider [phone] Nae Campos RN Unavailable Unavailable Encounter Details Date Type Department Care Team ([facility] Contact Info) Description 02/20/2023 Orders Only [facility] [address] [place] [address] Conversion, Onbase Social History Tobacco Use Types Packs/Day Years Used Date Smoking Tobacco: Never Assessed Sex and Gender Information Value Date Recorded Sex Assigned at Not on file Legal Sex Male 11:53 PM EST Gender Identity Not on file Sexual Orientation Not on file documented as of this encounter Plan of Treatment Upcoming Encounters Date Type Department Care Team ([facility] Contact Info) Description 04/03/2025 10:00 AM EDT Office Visit [facility] [address] [place] [phone] [place] [address] Department of Medicine-Gastroenter ology [place] [phone] Scheduled Orders Name Type Priority Associated Diagnoses Orde r Schedule OUTSIDE LAB SCAN Lab Ordered: 02/20/2023 documented as of this encounter Visit Diagnoses Not on filedocumented in this encounter Care Teams Slab Inspector Relationship Specialty Start Date End Date Camille Avila MD [address] [place] [address] PCP - General 05/19/16 Nae Campos, systems consultantRestaurant Shift Leader Transplant 07/07/23 documented as of this encounter
--- OUTSIDE RECORDS SUMMARY | 2025-02-25 08:31 | XMS_ITS | Encounter Summary ---
Author Organization [facility] Address [address] [place] [address] Phone Care Team Providers Care Machine Feeder Name Role Phone Camille Avila MD Primary Care Provider [phone] Nae Campos RN Unavailable Unavailable Encounter Details Date Type Department Care Team ([facility] Contact Info) Description 11/23/2017 Orders Only [facility] [address] [place] [address] Conversion, Onbase Social History Tobacco Use Types Packs/Day Years Used Date Smoking Tobacco: Never Assessed Sex and Gender Information Value Date Recorded Sex Assigned at Not on file Legal Sex Male 11:53 PM EST Gender Identity Not on file Sexual Orientation Not on file documented as of this encounter Plan of Treatment Upcoming Encounters Date Type Department Care Team ([facility] Contact Info) Description 04/03/2025 10:00 AM EDT Office Visit [facility] [address] [facility] [address] [place] [phone] [place] [address] Department of Medicine-Gastroenter ology [place] [phone] Scheduled Orders Name Type Priority Associated Diagnoses Orde r Schedule OUTSIDE LAB SCAN Lab Ordered: 11/23/2017 documented as of this encounter Visit Diagnoses Not on filedocumented in this encounter Care Teams Machine Feeder Relationship Specialty Start Date End Date Camille Avila MD [address] [place] [address] PCP - General 05/19/16 Nae Campos, power plant superintendentNail Technician Transplant 07/07/23 documented as of this encounter
--- OUTSIDE RECORDS SUMMARY | 2025-02-25 08:31 | XMS_ITS | Encounter Summary ---
Author Organization [facility] Address [address] 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; Liver transplant status (Multi); Other specified abnormal findings of blood chemistry Social History Tobacco Use Types Packs/Day Years Used Date Smoking Tobacco: Never Smokeless Tobacco: Never Alcohol Use Standard Drinks/Week Comments Never 0 (1 standard drink = 0.6 oz pur e alcohol) Sex and Gender Information Value Date Recorded Sex Assigned at Not on file Legal Sex Male 11:53 PM EST Gender Identity Not on file Sexual Orientation Not on file COVID-19 Exposure Response Date Recorded In the last 10 days, have yo u been in contact with someone who was confirmed or suspected to have Coronavirus/COVID-19? No / Unsure 12/19/2023 7:49 AM EDT documented as of this encounter Plan of Treatment Upcoming Encounters Date Type Department Care Team ([facility] Contact Info) Description 04/03/2025 10:00 AM EDT Office Visit [facility] [place] [address] [facility] [address] [place] [phone] [place] [address] Department of [place] [address] documented as of this encounter Procedures Procedure Name Priority Date/Time Associated Diagnosis Comments CBC WITH AUTO DIFFERENTIAL Routine 01/04/2024 11:01 AM EDT Immunodeficiency, unspecified (CMS/HCC) 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 Liver transplant status (CMS/HCC) Other specified abnormal findings of blood chemistry EBV PCR, QUANTITATIVE, PLASMA Routine 01/04/2024 11:01 AM EDT Immunodeficiency, unspecified (CMS/HCC) 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 Liver transplant status (CMS/HCC) Other specified abnormal findings of blood chemistry LAVENDER TOP Routine 01/04/2024 11:01 AM EDT Immunodeficiency, unspecified (CMS/HCC) 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 Liver transplant status (CMS/HCC) Other specified abnormal findings of blood chemistry LAVENDER TOP Routine 01/04/2024 11:01 AM EDT Immunodeficiency, unspecified (CMS/HCC) 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 Liver transplant status (CMS/HCC) Other specified abnormal findings of blood chemistry TACROLIMUS Routine 01/04/2024 11:01 AM EDT Immunodeficiency, unspecified (CMS/HCC) 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 01/04/2024 11:01 PM EDT [facility] Comment:Auto resulted. Blood Venous blood specimen / Unknown 01/04/2024 11:01 AM EDT 01/04/2024 9:21 PM EDT us Sharan Ayoub MD LAB BLOOD ORDERABLES Final Re sult [facility] [address] [place] [address] * Lavender Top (01/04/2024 11:01 AM EDT) Extra Tube Hold for add-ons. 01/04/2024 11:01 PM EDT [facility] Comment:Auto resulted. Blood Venous blood specimen / Unknown 01/04/2024 11:01 AM EDT 01/04/2024 9:21 PM EDT us Sharan Ayoub MD LAB BLOOD ORDERABLES Final Re sult [facility] [address] [place] [address] * Tacrolimus (01/04/2024 11:01 AM EDT) Tacrolimus 6.3 <=15.0 ng/mL LAB CHEMISTRY METHOD 01/05/2024 10:02 AM EDT [facility] Blood Venous blood specimen / Unknown 01/04/2024 11:01 AM EDT 01/04/2024 9:12 PM EDT Narrative [facility] - 01/05/2024 10:02 AM EDT NOTE: Result was obtained using a chemiluminescent microparticle immunoassay (CMIA) on the Surgical Scheduler i system. Optimal therapeutic ranges for immunosuppressant drugs depend upon an individual patient's current clinical state, type of organ transplant, time post-transplant, co-administration of other immunosuppressants, and other clinical factors. The results of this test should be correlated with additional clinical and laboratory data before changes in treatment regimens are made. us Sharan Ayoub MD LAB BLOOD ORDERABLES Final Re sult [facility] [address] [address] [place] [id number] * CMV DNA, Quantitative PCR, Plasma (01/04/2024 11:01 AM EDT) Pathologist [facility] Cytomegalovirus DNA, PCR Log IU/ML 01/05/2024 12:41 PM EDT [facility] Comment:Not calculated CMV DNA Result Not Detected Not Detected 01/05/2024 12:41 PM EDT [facility] Blood Plasma specimen / Unknown 01/04/2024 11:01 AM EDT 01/04/2024 9:12 PM EDT Narrative [facility] - 01/05/2024 12:41 PM EDT Reportable Range: 35-10,000,000 IU/mL. The yu CMV test is an in vitro nucleic acid amplification test for the quantitation of Cytomegalovirus (CMV) DNA in human EDTA plasma on the yu bookletmobile0/8800 Systems. The analytical quantification range of this [...] the Molecular Diagnostic Laboratory, Department of Pathology, [facility]. us Sharan Ayoub MD LAB MOLECULAR DIAGNOSTICS ORD ERABLES Final Result [facility] [address] [address] [place] [id number] * Isaac-Fair PCR, Quantitative, Plasma (01/04/2024 11:01 AM EDT) EBV DNA Result Not Detected Not Detected 2023 1:03 PM EDT [facility] EBV PCR Plasma Log 01/05/2024 1:03 PM EDT [facility] Comment:Not calculated Blood Plasma specimen / Unknown 01/04/2024 11:01 AM EDT 01/04/2024 9:12 PM EDT Narrative [facility] - 01/05/2024 1:03 PM EDT Reportable Range: 35-100,000,000 IU/mL. The yu EBV [...] primer and/or probe binding resulting in the under- quantitation of virus or failure to detect the [...] the Molecular Diagnostic Laboratory, Department of Pathology, [facility]. Sharan Ayoub MD LAB MOLECULAR DIAGNOSTICS ORD ERABLES Final Result [facility] [address] [address] [place] [id number] * (ABNORMAL) CBC and Auto Differential (01/04/2024 11:01 AM EDT) WBC 4.9 4.4 - 11.3 x10*3/uL LAB HEMATOLOGY METHOD 01/04/2024 9:43 PM EDT [facility] nRBC 0.0 0.0 - 0.0 /100 WBCs LAB HEMATOLOGY METHOD 01/04/2024 9:43 PM EDT [facility] RBC 3.91(L) 4.50 - 5.90 x10*6/uL LAB HEMATOLOGY METHOD 01/04/2024 9:[address] [facility] Hemoglobin 12.3(L) 13.5 - 17.5 g/dL LAB HEMATOLOGY METHOD [facility] Hematocrit 37.4(L) 41.0 - 52.0 % LAB HEMATOLOGY METHOD 01/04/2024 9:43 PM EDT [facility] MCV 96 80 - 100 fL LAB HEMATOLOGY METHOD [facility]2024 [facility] MCH 31.5 26.0 - 34.0 pg LAB HEMATOLOGY METHOD [facility]/04[facility]2024 [facility] MCHC 32.9 32.0 - 36.0 g/dL LAB HEMATOLOGY METHOD 01/04[facility]2024 [facility] RDW 13.6 11.5 - 14.5 % LAB HEMATOLOGY METHOD 01/04/2024 9:[address] [facility] Platelets 116(L) 150 - 450 x10*3/uL LAB HEMATOLOGY METHOD 01/04/2024 9:[address] [facility] Neutrophils % 62.5 40.0 - 80.0 % LAB HEMATOLOGY METHOD 01/04/2024 9:[address] [facility] Immature Granulocytes %, Automated 0.2 0.0 - 0.9 % LAB HEMATOLOGY METHOD 01/04/2024 9:[address] [facility] Comment:Immature Granulocyte Count (IG) includes promyelocytes, myelocytes and metamyelocytes but does not include bands. Percent differential counts (%) should be interpreted in the context of the absolute cell counts (cells/UL). Lymphocytes % 27.1 13.0 - 44.0 % LAB HEMATOLOGY METHOD 01/04/2024 9:[address] [facility] Monocytes % 8.6 2.0 - 10.0 % LAB HEMATOLOGY METHOD 01/04/2024 9:[address] [facility] Eosinophils % 1.0 0.0 - 6.0 % LAB HEMATOLOGY METHOD 01/04/2024 9:[address] [facility] Basophils % 0.6 0.0 - 2.0 % LAB HEMATOLOGY METHOD 01/04/2024 9:[address] [facility] Neutrophils Absolute 3.07 1.20 - 7.70 x10*3/uL LAB HEMATOLOGY METHOD 01/04/2024 9:[address] [facility] Comment:Percent differential counts (%) should be interpreted in the context of the absolute cell counts (cells/uL). Immature Granulocytes Absolute, Automated 0.01 0.00 - 0.70 x10*3/uL LAB HEMATOLOGY METHOD 01/04/2024 9:[address] [facility] Lymphocytes Absolute 1.33 1.20 - 4.80 x10*3/uL LAB HEMATOLOGY METHOD 01/04/2024 9:[address] [facility] Monocytes Absolute 0.42 0.10 - 1.00 x10*3/uL LAB HEMATOLOGY METHOD 01/04/2024 9:[address] [facility] Eosinophils Absolute 0.05 0.00 - 0.70 x10*3/uL LAB HEMATOLOGY METHOD 01/04/2024 9:43 PM EDT [facility] Basophils Absolute 0.03 0.00 - 0.10 x10*3/uL LAB HEMATOLOGY METHOD 01/04/2024 9:43 PM EDT [facility] Blood Venous blood specimen / Unknown 01/04/2024 11:01 AM EDT 01/04/2024 9:12 PM EDT us Sharan Ayoub MD LAB BLOOD ORDERABLES Final Re sult [facility] [address] [place] [address] documented in this encounter Visit Diagnoses Diagnosis Immunodeficiency, unspecified 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 Liver transplant status Other specified abnormal findings of blood chemistry documented in this encounter Care Teams Early Childhood Relationship Specialty Start Date End Date Camille Avila MD [facility] [place] [address] PCP - General 05/19/16 Nae Campos, home security professionalChild Day Care Center Worker Transplant 07/07/23 documented as of this encounter
--- OUTSIDE RECORDS SUMMARY | 2025-02-25 08:32 | XMS_ITS | Clinical Summary ---
Author Organization [facility] Address [address] [place] [address] Phone Care Team Providers Care Doctor Of Naturopathic Medicine Name Role Phone Camille Avila MD Primary Care Provider [phone] Nae Campos RN Unavailable Unavailable Allergies Active Allergy Reactions Criticality Noted Date Comments Red Dye Anaphylaxis,Angioede Mounika walker welling High 04/08/2017 Other Reaction(s): Swelling of Lip/Tongue/Throat Medications aspirin 81 mg EC tablet Take 1 tablet (81 mg) by mouth once daily. Active OneTouch Ultra Test strip Test 4 times daily 7 Active insulin lispro (HumaLOG) 100 unit/mL injection INJECT 50 UNITS PER PUMP DIRECTED ONCE DAILY Active lancets 33 gauge misc Test blood sugars 5 times daily as directed Active multivit-min/conor gamaliel fumarate (MULTI VITAMIN ORAL) Take 1 tablet by mouth once daily. Active loperamide (Imodium) 2 mg capsuleIndicatio ns:Diarrhea, unspecified type Take 1 capsule (2 mg) by mouth every 8 hours if needed for diarrhea. 4 Active venlafaxine (Effexor) 37.5 mg tablet Take 1 tablet (37.5 mg) by mouth once daily at bedtime. Active mycophenolate (Cellcept) 250 mg capsuleIndicatio ns: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) Take 1 capsule (250 mg) by mouth every 12 hours. 180 capsule 3 4 Active magnesium oxide (Mag-Ox) 400 mg (241.3 mg magnesium) tabletIndication s: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) Take 1 tablet (400 mg) by mouth 2 times a day. 180 tablet 3 4 Active predniSONE (Deltasone) 5 mg tabletIndication s: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),Acute rejection of liver transplant (Multi) Take 3 tablets (15 mg) by mouth once daily. 270 tablet 3 4 Active tacrolimus (Prograf) 1 mg capsuleIndicatio ns: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) Take 1 capsule (1 mg) by mouth 2 times a day. 180 capsule 3 5 Active amLODIPine (Norvasc) 10 mg tabletIndication s:Hypertension, unspecified type Take 1 tablet (10 mg) by mouth once daily. 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) 08/02 Assessment & Plan (02/01/2024 10:56 AM EDT): Why he developed ACR or chronic rejection is somewhat unclear The plan is to taper his prednisone by 10 mg every week to park it at 10 mg daily We will monitor liver function monthly We will see him every 2 months Hyperthyroidism 05/05/2016 Type 1 diabetes mellitus 05/05/2016 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) 04/08/2016 Assessment & Plan (01/09/2025 10:16 AM EDT): He was advised to seek improved mental health care and one on one counseling The patient will continue on his current immunosuppression regimen We will up amlodipine to 10 mg daily Labs will continue to be ordered every 6 months We recommended annual dermatological examination We will see the patient in follow up in 6 months Assessment & Plan (10/15/2024 1:41 PM EST): We plan to taper his pred slowly by 1 mg a week and watch liver enzymes slowly Labs will continue to be ordered every month We recommended annual dermatological examination We will see the patient in follow up in 6 months Assessment & Plan (04/19/2024 9:18 AM EDT): He needs a colonoscopy for which we will prescribe golyutely since prep didn't work last time He will drop prednisone by 5 mg every other week and have labs montly The patient will continue on his current immunosuppression regimen Labs will continue to be ordered every month We recommended annual dermatological examination We will up spironolactone to 100 daily We will see the patient in follow up in 3 months Assessment & Plan (08/03/2023 9:52 AM EDT): The patient will decrease tacrolimus to 1 bid Labs will continue to be ordered every 6 months We recommended annual dermatological examination We will see the patient in follow up in 6 months Encounters Date Type Department Care Team Description 02/05/2025 Abstract [facility] [address] [place] [address] Sade Ayoub MD 01/31/2025 4:45 PM EDT Lab [place] [address] [place] [address] Liver transplant status (Primary Dx) 01/31/2025 Orders Only [facility] [address] [place] [address] Sade Ayoub MD 01/10/2025 Orders Only [facility] [address] [facility] [address] [place] [address] Nae Campos RN 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); Complications, organ transplant; Elevated LFTs; Hypomagnesemia 01/09/2025 10:35 AM EDT - 01/09/2025 11:59 PM EDT Hospital Encounter [facility] [address] [place] [address] 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); Complications, organ transplant; Elevated LFTs Discharge Disposition: Home 01/09/2025 10:00 AM EDT Office Visit [facility] [address] [place] [address] [place] [phone] Sade Ayoub MD 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) (Primary Dx); Hypertension, unspecified type 01/09/2025 Telephone [facility] [address] [place] [address] [place] [phone] Anila Ramires 01/09/2025 Travel 12/25/2024 Telephone [facility] [address] [place] [address] [place] [phone] Nae Campos, JULIEN 12/23/2024 Telephone [facility] [address] [place] [address] [place] [phone] Anila Ramires 12/23/2024 Orders Only [facility] [address] [place] [address] [place] [phone] Nae Campos, RN 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); Complications, organ transplant; Elevated LFTs 12/12/2024 Abstract [facility] [address] [place] [address] [place] [phone] Nae Campos, RN 12/11/2024 Abstract [facility] [address] [facility] [address] [place] [phone] Nae Campos RN 12/10/2024 Telephone [facility] [address] [place] [address] [place] [phone] Anila Ramires from Last 3 Months Immunizations Immunization Administration Dates Next Due Flu vaccine, trivalent, pres ervative free, age 6 months and greater (Fluarix/Fluzone/Flulaval) 08/15/2016 Hep A / Hep B 03/16/2010 Hepatitis A vaccine, age 19 years and greater (H AVRIX) 03/16/2010 Hepatitis B vaccine, 19 yrs and under (RECOMBIVAX, ENGERIX) 03/23/2010 Influenza, Unspecified 08/15/2016 Tdap vaccine, age 7 year and older (BOOSTRIX, AD ACEL) 03/16/2010 Family History Medical History Relation Name Comments No Known Problems Mother Relation Name Status Comments Mother Social History Tobacco Use Types Packs/Day Years Used Date Smoking Tobacco: Never Smokeless Tobacco: Never Tobacco Cessation:Counseling Given: Not Answered Alcohol Use Standard Drinks/Week Comments Never 0 [...] place to sleep or slept in a jail (including now)? No 01/19/2024 Sex and Gender Information Value Date Recorded Sex Assigned at Not on file Legal Sex Male 11:53 PM EST Gender Identity Not on file Sexual Orientation Not on file Last Filed Vital Signs Vital Sign Reading Time Taken Comments Blood Pressure 139/91 01/09/2025 9:55 AM EDT Pulse 99 01/09/2025 9:55 AM EDT Temperature 36.8 C (98.3 F) 01/09/2025 9:55 AM EDT Respiratory Rate 18 01/24/2024 2:08 PM EDT Oxygen Saturation 96% 01/09/2025 9:55 AM EDT Inhaled Oxygen Concentration - - Weight 56.4 kg (124 lb 6.4 oz) 01/09/2025 9:55 A M EDT Height 177.8 cm (5' 10 ) 01/19/2024 1:06 PM EDT Body Mass Index 17.85 01/19/2024 1:06 PM EDT Plan of Treatment Upcoming Encounters Date Type Department Care Team (Late st Contact Info) Description 04/03/2025 10:00 AM EDT Office Visit [facility] [address] [facility] [address] [place] [phone] [place] [address] Department of Medicine-Gastroenter ology [place] [phone] Health Maintenance Due Date Last Done Comments Diabetes: Celiac Disease Screening 1993 Diabetes: Urine Protein Screening 1993 HIV Screening 1993 Vitamin B-12 1993 Yearly Adult Physical 1993 MMR Vaccines (1 of 1 - Standard series) 1994 COVID-19 Vaccine (#1) 1998 Diabetes: Retinopathy Screening 2003 Varicella Vaccines (1 of 2 - 13+ 2-dose series) 2006 Hepatitis B Vaccines (2 of 3 - 3-dose series) 04/20/2010 03/23/2010, 03/16/2010 Hepatitis A Vaccines (2 of 2 - Risk 2-dose series) 09/15/2010 03/16/2010, 03/16/2010 Pneumococcal Vaccine: Pediatrics and At-Risk Adult Patients (1 of 2 - PCV) 2012 Zoster Vaccines (1 of 2) 2012 DTaP/Tdap/Td Vaccines (2 - T d or Tdap) 03/16/2020 03/16/2010 Diabetes: Hemoglobin A1C 04/19/2024 024, 08/21/2017, 08/18/2017 Lipid Panel 06/09/2024 06/09/2023 TSH Level 06/09/2024 06/09/2023 Influenza Vaccine (Season Ended) 2025 08/15/2016, 08/15/2016 Hepatitis C Screening Completed 08/15/2017 HIB Vaccines Aged Out No longer eligi ble based on patient's age to complete this topic HPV Vaccines Aged Out No longer eligi ble based on patient's age to complete this topic IPV Vaccines Aged Out No longer eligi ble based on patient's age to complete this topic Meningococcal Vaccine Aged Out No sarah rajesh eligible based on patient's age to complete this topic Rotavirus Vaccines Aged Out No longer eligible based on patient's age to complete this topic Procedures Procedure Name Priority Date/Time Associated Diagnosis Comments [facility] TACROLIMUS (TRANSPLANT) NO CHG Routine 01/31/2025 10:49 AM EDT TACROLIMUS Routine 01/31/2025 10:49 AM EDT Liver transplant status [facility] MAGNESIUM Routine 01/31/2025 10:49 AM EDT [facility] COMPREHENSIVE METABOLIC PANEL Routine 01/31/2025 10:49 AM EDT [facility] COMPLETE BLOOD COUNT AUTO DIFF Routine 01/31/2025 10:49 AM EDT US LIVER WITH DOPPLER Routine 01/09/2025 1:25 PM EDT 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) Complications, organ transplant Elevated LFTs TACROLIMUS Routine 12/09/2024 3:36 PM EDT CBC Routine 12/09/2024 3:34 PM EDT COMPREHENSIVE METABOLIC PANEL Routine 12/09/2024 3:34 PM EDT HEMOGLOBIN A1C Add-On 01/19/2024 7:27 AM EDT HEPATITIS PANEL, ACUTE Routine 7 6:25 AM EST from Last 3 Months or Most Recently Relevant to Health Maintenance Results * [facility] TACROLIMUS (TRANSPLANT) NO CHG (01/31/2025 10:49 AM EDT) [facility] TACROLIMUS (TRANSPLANT) NO CHG Sent to Ref Lab [facility] Comment:PERFORMED BY:[facility] [place], [place] [phone] MEDICAL DIRECTORXI COLON M.D. [facility] Lab- Specimen 01/31/2025 10:49 AM EDT Sade Ayoub MD LAB BLOOD ORDERABLES Final Re sult [facility] [address] [place] [address], [facility] [address] [place] [address] * (ABNORMAL) [facility] Complete Blood Count Auto Diff (01/31/2025 10:49 AM EDT) [facility] White Blood Count 10.8(H) 4.1 - 10.5 10*3/uL [facility] NON-[facility] H[facility] Uncorrected WBC 10.8(H) 4.1 - 10.5 10*3/uL [facility] Red Blood Count 4.65 3.90 - 5.60 10*6/uL [facility] Hemoglobin 14.6 13.0 - 17.0 g/dL [facility] Hematocrit 42.0 38.8 - 50.0 % [facility] Mean Corpuscular Volume 90.3 83.5 - 101 fL [facility] Mean Corpuscular Hemoglobin 31.3 27.5 - 35.2 pg [facility] Mean Corpuscular HGB Conc 34.7 32.5 - 35.6 g/dL [facility] Red Cell Distribution Width 15.1(H) 12.0 - 14.8 % [facility] Platelet Count 181 150 - 450 10*3/uL [facility] Mean Platelet Volume 10.6(H) 6.6 - 10.1 fL [facility] Neutrophils % (Auto) 62.5 . % [facility] Lymphocytes % (Auto) 26.4 . % [facility] Monocytes % (Auto) 8.9 . % [facility] Eosinophils % (Auto) 0.8 . % [facility] Basophils % (Auto) 1.4 . % [facility] NRBC% 0.1 0 - 0.5 /100{WBC} [facility] Neutrophils # (Auto) 6.8 1.8 - 7.7 10*3/uL [facility] Lymphocytes # (Auto) 2.9 1.00 - 4.8 10*3/uL [facility] Monocytes # (Auto) 1.0(H) 0.0 - 0.8 10*3/uL [facility] Eosinophils # (Auto) 0.1 0.0 - 0.45 10*3/uL [facility] Basophils # (Auto) 0.1 0.0 - 0.2 10*3/uL [facility] Comment:PERFORMED BY:[facility] [place], [place] [phone] MEDICAL DIRECTORXI COLON M.D. [facility] Whole blood specimen 01/31/2025 10:49 AM EDT us Sade Ayoub MD LAB BLOOD ORDERABLES Final Re sult [facility] [address] [place] [address], [facility] [address] [place] [address] * (ABNORMAL) [facility] Magnesium (01/31/2025 10:49 AM EDT) [facility] Magnesium 1.5(L) 1.9 - 2.7 mg/dL [facility] Comment:PERFORMED BY:[facility] [place], [place] [phone] MEDICAL DIRECTORXI COLON M.D. [facility] Plasma specimen or serum specimen or whole blood specimen 01/31/2025 10:49 AM EDT us Sade Ayoub MD LAB BLOOD ORDERABLES Final Re sult [facility] [address] [place] [address], [facility] [address] [place] [address] * (ABNORMAL) [facility] H[facility] Comprehensive Metabolic Panel (01/31/2025 10:49 AM EDT) Pathologist [facility] NON-[facility] HIE Glucose 84 70 - 100 mg/dL [facility] Comment:Random Glucose Refer ence Range is dependent on time and content of last meal. Glucose of more than 200 mg/dL in a nonstressed, ambulatory subject supports the diagnosis of Diabetes Mellitus. ADA recommended reference range NON-[facility] HIE Blood Urea Nitrogen 22 7 - 25 mg/dL [facility] Creatinine 1.01 0.70 - 1.30 mg/dL [facility] H[facility] ESTIMATED GFR >60.0 mL/Min [facility] Sodium 140 136 - 145 mmol/L [facility] Potassium 3.2(L) 3.5 - 5.1 mmol/L [facility] Chloride 100 98 - 107 mmol/L [facility] Carbon Dioxide 33.9(H) 21.0 - 31.0 mmol/L [facility] Anion Gap 9.3 6.0 - 15.0 meq/L [facility] Calcium 9.4 8.6 - 10.3 mg/dL [facility] Total Protein 6.6 6.4 - 8.9 g/dL [facility] Albumin Level 3.2(L) 3.5 - 5.7 g/dL [facility] Globulin 3.4 g/dL [facility] Albumin/Globulin Ratio 0.9 [facility] Bilirubin,Total 3.4(H) 0.3 - 1.0 mg/dL [facility] Comment:Samples from patient s who have taken Naproxen have shown spurious elevation in Total Bilirubin levels. A metabolite of Naproxen, O-desmethylnaproxen, has been shown to interfere with the Jen[place]ustin-Uriel method for measuring Total Bilirubin. NON-[facility] HIE Aspartate Amino Transferase 102(H) 13 - 39 U/L [facility] NON-[facility] HIE Alanine Aminotransferase 101(H) 7 - 52 U/L [facility] H[facility] Alkaline Phosphatase 319(H) 34 - 104 U/L [facility] Plasma specimen or serum specimen or whole blood specimen 01/31/2025 10:49 AM EDT Sade Ayoub MD LAB BLOOD ORDERABLES Final Re sult [facility] [address] [place] [address], [facility] [address] [place] [address] * Tacrolimus (01/31/2025 10:49 AM EDT) Only the most recent of2 resultswithin the time period is included. Tacrolimus 8.8 <=15.0 ng/mL LAB CHEMISTRY METHOD 02/01/2025 11:40 AM EDT [facility] Blood Venous blood specimen / Unknown Venipuncture / Unknown 01/31/2025 10:49 AM EDT 01/31/2025 4:45 PM EDT Narrative [facility] - 02/01/2025 11:40 AM EDT NOTE: Result was obtained using a chemiluminescent microparticle immunoassay (CMIA) on the Medical Records Specialist i system. Optimal therapeutic ranges for immunosuppressant drugs depend upon an individual patient's current clinical state, type of organ transplant, time post-transplant, co-administration of other immunosuppressants, and other clinical factors. The results of this test should be correlated with additional clinical and laboratory data before changes in treatment regimens are made. us Sade Ayoub MD LAB BLOOD ORDERABLES Final Re sult [facility] [id number] [place], [place] [id number] * US liver with doppler (01/09/2025 1:25 PM EDT) Anatomical Region Laterality Modality Abdomen, Kidney Ultrasound 01/09/2025 4:05 PM EDT 01/09/2025 9:10 PM EDT Impressions 01/09/2025 9:08 PM EDT 1. Unremarkable ultrasound of the liver including Doppler interrogation. 2. Trace amount of nonspecific perihepatic/abdominopelvic ascites. 3. Nonobstructive intrarenal calculi of the right kidney. I personally reviewed the images/study and I agree with the findings as stated by resident Willi Valles. This study was interpreted at [facility], [place], [place]. MACRO: None Signed by: Farooq Fleming 01/09/2025 9:08 PM Dictation workstation: [id number] Narrative 01/09/2025 9:08 PM EDT Interpreted By: Farooq Gutierrez and Ritchie Brandon STUDY: US LIVER WITH DOPPLER; 01/09/2025 1:25 pm INDICATION: Signs/Symptoms:s/p liver transplant, elevated LFT's, follow up for stability.. ,Z94.4 Liver transplant status,T86.90 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,R79.89 Other specified abnormal findings of blood chemistry COMPARISON: Ultrasound of the liver 01/23/2024. ACCESSION NUMBER(S): [id number] ORDERING CLINICIAN: SADE AYOUB TECHNIQUE: Multiple images of the right upper quadrant were obtained. Perrin scale, color Doppler and spectral Doppler waveform analysis was performed. This examination was interpreted at [facility]. FINDINGS: LIVER: The liver measures 12.2 cm [...] is trace amount of abdominopelvic/perihepatic ascites noted. Procedure Note Farooq Gutierrez MD - 01/09/2025 Interpreted By: Farooq Gutierrez and Ritchie Brandon STUDY: US LIVER WITH DOPPLER; 01/09/2025 1:25 pm INDICATION: Signs/Symptoms:s/p liver transplant, elevated LFT's, follow up for stability.. ,Z94.4 Liver transplant status,T86.90 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,R79.89 Other specified abnormal findings of blood chemistry COMPARISON: Ultrasound of the liver 01/23/2024. ACCESSION NUMBER(S): [id number] ORDERING CLINICIAN: SADE AYOUB TECHNIQUE: Multiple images of the right upper quadrant were obtained. Perrin scale, color Doppler and spectral Doppler waveform analysis was performed. This examination was interpreted at [facility]. FINDINGS: LIVER: The liver measures 12.2 cm [...] Willi Valles. This study was interpreted at [facility], [place], [place]. MACRO: None Signed by: Farooq Fleming 01/09/2025 9:08 PM Dictation workstation: [id number] us Sade Ayoub MD IMG US PROCEDURES Final Resul t * CBC (12/09/2024 3:34 PM EDT) Auto WBC External 10.6 x10*3/uL RBC External 4.59 x10*6/uL Hemoglobin External 14.2 g/dL Hematocrit External 40.5 % Platelets External 156 x10*3/uL Blood Venous blood specimen / Unknown 12/09/2024 3:34 PM EDT us Sade Ayoub MD LAB BLOOD ORDERABLES Final Re sult * Comprehensive Metabolic Panel (12/09/2024 3:34 PM EDT) Glucose External 83 mg/dL Sodium external 138 mmol/L Potassium external 3.2 mmol/L Chloride external 98 mmol/L CO2 external 33 mmol/L Anion Gap external 10 mmol/L Urea Nitrogen external 12 mg/dL Creatinine external 1.16 mg/dL eGFR external 6 mL/min/1.7 3m*2 Albumin external 3.5 g/dL Alkaline Phosphatase external 344 U/L Total Protein external 6.7 g/dL AST external 101 U/L Total Bilirubin external 3.6 mg/dL ALT (SGPT) external 99 U/L Blood Venous blood specimen / Unknown 12/09/2024 3:34 PM EDT us Sade Ayoub MD LAB BLOOD ORDERABLES Final Re sult * (ABNORMAL) Hemoglobin A1c (01/19/2024 7:27 AM EDT) Hemoglobin A1C 6.4(H) see below % 10:26 AM EDT [facility] Estimated Average Glucose 137 Not Established mg/dL 01/19/2024 10:26 AM EDT [facility] Blood Venous blood specimen / Unknown Venipuncture / Unknown 01/19/2024 7:27 AM EDT 01/19/2024 7:33 AM EDT Narrative [facility] - 01/19/2024 10:26 AM EDT Diagnosis of Diabetes-Adults Non-Diabetic: < or = 5.6% Increased risk for developing diabetes: 5.7-6.4% Diagnostic of diabetes: > or = 6.5% Monitoring of Diabetes Age (y)....................... Therapeutic Goal (%) Adults: >18.........................<7.0 Pediatrics: 13-18...................<7.5 Pediatrics: 7-12....................<8.0 Pediatrics: 0-6..................... 7.5-8.5 [employer]. Diabetes Care 33(S1), Oct 2009 us Yung Montesinos MD LAB BLOOD ORDERABLES Final Res ult [facility] [id number] [place], [place] [id number] * Hepatitis Panel, Acute (08/15/2017 6:25 AM EST) Hep A IgM NON-REACTIVE NONREACTIVE [facility] Comment: Patients receiving more than 5 mg/day of biotin may have interference in test results. A sample should be taken no sooner than eight hours after previous dose. Contact [phone] for additional information. Hep B Core IgM NON-REACTIVE NONREACTIVE [facility] Comment: Patients receiving more than 5 mg/day of biotin may have interference in test results. A sample should be taken no sooner than eight hours after previous dose. Contact the testing laboratory for additional information. Hepatitis B Surface Ag NONREACTIVE NONREACTIVE [facility] Comment: Patients receiving more than 5 mg/day of biotin may have interference in test results. A sample should be taken no sooner than eight hours after previous dose. Contact [phone] for additional information. Hepatitis C Ab NON-REACTIVE NONREACTIVE [facility] Comment: Patients receiving more than 5 mg/day of biotin may have interference in test results. A sample should be taken no sooner than eight hours after previous dose. Contact [phone] for additional information. 08/15/2017 6:25 AM EST 08/15/2017 7:44 AM EST Maximino Benavidez MD LAB BLOOD ORDERABLES Fin al Result [facility] from Last 3 Months or Most Recently Relevant to Health Maintenance Insurance [employer]IC [employer]CIAL [employer] [place] [id number] Advance Directives For more information, please contact: [phone] (Available ) Documents on File Type Date Recorded Patient Supervisor Refining Expl [facility] Power of Atty 04/25/2016 * Full Code (Latest Code Status on File) Date Activated Date Inactivated Comments 01/18/2024 8:32 PM Question Answer Comments Plan of Care: Code Status Discussion Completed Decision Maker: Patient Care Teams Doctor Of Naturopathic Medicine Relationship Specialty Start Date End Date Camille Avila MD [address] [place] [address] PCP - General 05/19/16 Nae Campos, passenger tire builderLandscape Specialist Transplant 07/07/23
--- OUTSIDE RECORDS SUMMARY | 2025-02-25 08:32 | XMS_ITS | Encounter Summary ---
Author Organization [facility] Address [address] [place] [address] Phone Care Team Providers Care Machine Set Up Name Role Phone Camille Avila MD Primary Care Provider [phone] Nae Campos RN Unavailable Unavailable Encounter Details Date Type Department Care Team ([facility] Contact Info) Description 08/29/2016 Orders Only [facility] [address] [place] [address] Conversion, Onbase Social History Tobacco Use Types Packs/Day Years Used Date Smoking Tobacco: Never Assessed Sex and Gender Information Value Date Recorded Sex Assigned at Not on file Legal Sex Male 11:53 PM EST Gender Identity Not on file Sexual Orientation Not on file documented as of this encounter Plan of Treatment Upcoming Encounters Date Type Department Care Team ([facility] Contact Info) Description 04/03/2025 10:00 AM EDT Office Visit [facility] [address] [facility] [address] [place] [phone] [place] [address] Department of Medicine-Gastroenter ology [place] [phone] Scheduled Orders Name Type Priority Associated Diagnoses Orde r Schedule OUTSIDE LAB SCAN Lab Ordered: 08/29/2016 documented as of this encounter Visit Diagnoses Not on filedocumented in this encounter Care Teams Machine Set Up Relationship Specialty Start Date End Date Camille Avlia MD [address] [place] [address] PCP - General 05/19/16 Nae Campos, optical technicianSales Representative Jewelry Transplant 07/07/23 documented as of this encounter
--- OUTSIDE RECORDS SUMMARY | 2025-02-25 08:32 | XMS_ITS | Encounter Summary ---
Author Organization [facility] Address [address] [place] [address] Phone Care Team Providers Care Resin Filterer Name Role Phone Camille Avila MD Primary Care Provider [phone] Nae Campos RN Unavailable Unavailable Encounter Details Date Type Department Care Team (Late Contact Info) Description 12/13/2023 Lab Requisition [facility] [address] [place] [address] [place] [address] Department of Medicine-Gastroentero [place], [place] [phone] Social History Tobacco Use Types Packs/Day Years Used Date Smoking Tobacco: Never Smokeless Tobacco: Never Sex and Gender Information Value Date Recorded Sex Assigned at Not on file Legal Sex Male 11:53 PM EST Gender Identity Not on file Sexual Orientation Not on file documented as of this encounter Plan of Treatment Upcoming Encounters Date Type Department Care Team (Late Contact Info) Description 04/03/2025 10:00 AM EDT Office Visit [facility] [address] [facility] [address] [place] [address] [place] [address] Department of Medicine-Gastroenter oly [place], [place] [phone] documented as of this encounter Procedures Procedure Name Priority Date/Time Associated Diagnosis Comments TACROLIMUS Routine 12/12/2023 12:39 PM EDT documented in this encounter Results * Tacrolimus (12/12/2023 12:39 PM EDT) Tacrolimus 10.5 <=15.0 ng/mL LAB CHEMISTRY METHOD 12/13/2023 12:01 PM EDT [facility] Blood Venous blood specimen / Unknown 12/12/2023 12:39 PM EDT 12/13/2023 3:38 AM EDT Narrative [facility] - 12/13/2023 12:01 PM EDT NOTE: Result was obtained using a chemiluminescent microparticle immunoassay (CMIA) on the Metal Fabricator i system. Optimal therapeutic ranges for immunosuppressant drugs depend upon an individual patient's current clinical state, type of organ transplant, time post-transplant, co-administration of other immunosuppressants, and other clinical factors. The results of this test should be correlated with additional clinical and laboratory data before changes in treatment regimens are made. us Sharan Ayoub MD LAB BLOOD ORDERABLES Final Re sult [facility] [id number] [place] [address] documented in this encounter Visit Diagnoses Not on filedocumented in this encounter Care Teams Resin Filterer Relationship Specialty Start Date End Date Camille Avila MD [facility] [place] [address] PCP - General 05/19/16 Nae Campos, line workerData Technical Lead Transplant 07/07/23 documented as of this encounter
--- OUTSIDE RECORDS SUMMARY | 2025-02-25 08:32 | XMS_ITS | Encounter Summary ---
Author Organization [facility] Address [address] [place] [address] Phone Care Team Providers Care Director Life Insurance Name Role Phone Camille Avila MD Primary Care Provider [phone] Nae Campos RN Unavailable Unavailable Encounter Details Date Type Department Care Team ([facility] Contact Info) Description 08/17/2016 Orders Only [facility] [address] [place] [address] Conversion, Onbase Social History Tobacco Use Types Packs/Day Years Used Date Smoking Tobacco: Never Assessed Sex and Gender Information Value Date Recorded Sex Assigned at Not on file Legal Sex Male 11:53 PM EST Gender Identity Not on file Sexual Orientation Not on file documented as of this encounter Plan of Treatment Upcoming Encounters Date Type Department Care Team ([facility] Contact Info) Description 04/03/2025 10:00 AM EDT Office Visit [facility] [address] [facility] [address] [place] [phone] [place] [address] Department of Medicine-Gastroenter ology [place] [phone] Scheduled Orders Name Type Priority Associated Diagnoses Orde r Schedule OUTSIDE LAB SCAN Lab Ordered: 08/17/2016 documented as of this encounter Visit Diagnoses Not on filedocumented in this encounter Care Teams Director Life Insurance Relationship Specialty Start Date End Date Camille Avila MD [address] [place] [address] PCP - General 05/19/16 Nae Campos, special education secretarySaddle And Side Wire Stitcher Transplant 07/07/23 documented as of this encounter
--- OUTSIDE RECORDS SUMMARY | 2025-02-25 08:32 | XMS_ITS | Encounter Summary ---
Author Organization [facility] Address [address] [place] [address] Phone Care Team Providers Care Pipefitter Name Role Phone Camille Avila MD Primary Care Provider [phone] Nae Campos RN Unavailable Unavailable Encounter Details Date Type Department Care Team (Late st Contact Info) Description 10/12/2024 Lab Requisition [facility] [address] [place] [phone] [place] [address] [facility] Department of Medicine-Gastroen terology [place] [phone] Liver transplant rejection (Multi); Liver transplant status Social History Tobacco Use Types Packs/Day Years [...] place to sleep or slept in a fdc (including now)? No 01/19/2024 Sex and Gender Information Value Date Recorded Sex Assigned at Not on file Legal Sex Male 11:53 PM EST Gender Identity Not on file Sexual Orientation Not on file COVID-19 Exposure Response Date Recorded In the last 10 days, have yo u been in contact with someone who was confirmed or suspected to have Coronavirus/COVID-19? No / Unsure 10/10/2024 9:11 AM EST documented as of this encounter Plan of Treatment Upcoming Encounters Date Type Department Care Team (Late st Contact Info) Description 04/03/2025 10:00 AM EDT Office Visit [facility] [address] [facility] [address] [place] [address] [place] [address] Department of Medicine-Gastroenter ology [place] [phone] documented as of this encounter Procedures Procedure Name Priority Date/Time Associated Diagnosis Comments TACROLIMUS Routine 10/10/2024 1:16 PM EST Liver transplant rejection (Multi) Liver transplant status documented in this encounter Results * Tacrolimus (10/10/2024 1:16 PM EST) Tacrolimus 7.3 <=15.0 ng/mL LAB CHEMISTRY METHOD 10/13/2024 10:07 AM EST [facility] Blood Venous blood specimen / Unknown 10/10/2024 1:16 PM EST 10/12/2024 3:41 PM EST Narrative [facility] - 10/13/2024 10:07 AM EST NOTE: Result was obtained using a chemiluminescent microparticle immunoassay (CMIA) on the Business Systems Architect i system. Optimal therapeutic ranges for immunosuppressant drugs depend upon an individual patient's current clinical state, type of organ transplant, time post-transplant, co-administration of other immunosuppressants, and other clinical factors. The results of this test should be correlated with additional clinical and laboratory data before changes in treatment regimens are made. 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
--- OUTSIDE RECORDS SUMMARY | 2025-02-25 08:32 | XMS_ITS | Encounter Summary ---
Author Organization [facility] Address [address] [place] [address] Phone Care Team Providers Care Ice Skating Instructor Name Role Phone Camille Avila MD Primary Care Provider [phone] Nae Campos RN Unavailable Unavailable Encounter Details Date Type Department Care Team (Latest Contact Info) Description 08/16/2023 Lab Requisition [facility] [address] [place] [phone] [place] [address] [facility] Department [place] [address] Type 1 diabetes mellitus without complications (Multi); Chronic kidney disease, stage 3 unspecified (Multi); Immunodeficiency, unspecified (Multi); Liver transplant status (Multi) Social History [...] suspected to have Coronavirus/COVID-19? No / Unsure 08/16/2023 7:50 AM EST documented as of this encounter Plan of Treatment Upcoming Encounters Date Type Department Care Team (Late st Contact Info) Description 04/03/2025 10:00 AM EDT Office Visit [facility] [address] [facility] [address] [place] [address] [place] [address] [facility] Department of Medicine-Gastroenter ology [place] [phone] documented as of this encounter Procedures Procedure Name Priority Date/Time Associated Diagnosis Comments TACROLIMUS Routine 08/16/2023 12:34 PM EST Type 1 diabetes mellitus without complications (Multi) Chronic kidney disease, stage 3 unspecified (Multi) Immunodeficiency, unspecified (Multi) Liver transplant status (Multi) documented in this encounter Results * Tacrolimus (08/16/2023 12:34 PM EST) Tacrolimus 10.9 <=15.0 ng/mL LAB CHEMISTRY METHOD 08/17/2023 9:45 AM EST [facility] Blood Venous blood specimen / Unknown 08/16/2023 12:34 PM EST 08/16/2023 11:18 PM EST Narrative [facility] - 08/17/2023 9:45 AM EST NOTE: Result was obtained using a chemiluminescent microparticle immunoassay (CMIA) on the Emergency Vehicle Technician i system. Optimal therapeutic ranges for immunosuppressant drugs depend upon an individual patient's current clinical state, type of organ transplant, time post-transplant, co-administration of other immunosuppressants, and other clinical factors. The results of this test should be correlated with additional clinical and laboratory data before changes in treatment regimens are made. us Sharan Ayoub MD LAB BLOOD ORDERABLES Final Re sult [facility] [address] [place] [id number] [place] [id number] documented in this encounter Visit Diagnoses Diagnosis Type 1 diabetes mellitus without complications Chronic kidney disease, stage 3 unspecified (Multi) Immunodeficiency, unspecified Liver transplant status documented in this encounter Care Teams Ice Skating Instructor Relationship Specialty Start Date End Date Camille Avila MD [address] [place] [address] PCP - General 05/19/16 Nae Campos, signalerLaser Beam Trim Operator Transplant 07/07/23 documented as of this encounter
--- OUTSIDE RECORDS SUMMARY | 2025-02-25 08:32 | XMS_ITS | Encounter Summary ---
Author Organization [facility] Address [address] [place] [address] Phone Care Team Providers Care Matcher Leather Parts Name Role Phone Camille Avila MD Primary Care Provider [phone] Nae Campos RN Unavailable Unavailable Encounter Details Date Type Department Care Team (Late st Contact Info) Description 01/30/2024 Lab Requisition [facility] [address] [place] [phone] [place] [address] [facility] Department of Medicine-Gastroentero [place] [phone] Social History Tobacco Use Types Packs/Day Years [...] or slept in a detention (including now)? No 01/19/2024 Sex and Gender [...] AM EDT [facility] [address] [facility] [address] [place] [address] [place] [address] Department of Medicine-Gastroenter ogy [place] [phone] documented as of this encounter Procedures Procedure Name Priority Date/Time Associated Diagnosis Comments TACROLIMUS Routine 01/30/2024 11:18 AM EDT documented in this encounter Results * Tacrolimus (01/30/2024 11:18 AM EDT) Tacrolimus 7.3 <=15.0 ng/mL LAB CHEMISTRY METHOD 01/30/2024 10:20 PM EDT [facility] Blood Venous blood specimen / Unknown 01/30/2024 11:18 AM EDT 01/30/2024 6:29 PM EDT Narrative [facility] - 01/30/2024 10:20 PM EDT NOTE: Result was obtained using a chemiluminescent microparticle immunoassay (CMIA) on the Box Printing Machine Operator i system. Optimal therapeutic ranges for immunosuppressant drugs depend upon an individual patient's current clinical state, type of organ transplant, time post-transplant, co-administration of other immunosuppressants, and other clinical factors. The results of this test should be correlated with additional clinical and laboratory data before changes in treatment regimens are made. us Sharan Ayoub MD LAB BLOOD ORDERABLES Final Re sult [facility] [id number] [place] [address] documented in this encounter Visit Diagnoses Not on filedocumented in this encounter Care Teams Matcher Leather Parts Relationship Specialty Start Date End Date Camille Avila MD [address] [place] [address] PCP - General 05/19/16 Nae Campos, cleanerLaborer Salvage Transplant 07/07/23 documented as of this encounter
--- OUTSIDE RECORDS SUMMARY | 2025-02-25 08:32 | XMS_ITS | Encounter Summary ---
Author Organization [facility] Address [address] [place] [address] Phone Care Team Providers Care Playground Attendant Name Role Phone Camille Avila MD Primary Care Provider [phone] Nae Campos RN Unavailable Unavailable Encounter Details Date Type Department Care Team ([facility] Contact Info) Description 05/19/2023 Orders Only [facility] [address] [place] [address] Conversion, Onbase Social History Tobacco Use Types Packs/Day Years Used Date Smoking Tobacco: Never Assessed Sex and Gender Information Value Date Recorded Sex Assigned at Not on file Legal Sex Male 11:53 PM EST Gender Identity Not on file Sexual Orientation Not on file documented as of this encounter Plan of Treatment Upcoming Encounters Date Type Department Care Team ([facility] Contact Info) Description 04/03/2025 10:00 AM EDT Office Visit [facility] [address] [place] [phone] [place] [address] Department of Medicine-Gastroenter ology [place] [phone] Scheduled Orders Name Type Priority Associated Diagnoses Orde r Schedule OUTSIDE LAB SCAN Lab Ordered: 05/19/2023 documented as of this encounter Visit Diagnoses Not on filedocumented in this encounter Care Teams Playground Attendant Relationship Specialty Start Date End Date Camille Avila MD [address] [place] [address] PCP - General 05/19/16 Nae Campos, dredge operator supervisorManager Sales Support Transplant 07/07/23 documented as of this encounter
--- OUTSIDE RECORDS SUMMARY | 2025-02-25 08:32 | XMS_ITS | Encounter Summary ---
Author Organization [facility] Address [address] [place] [address] Phone Care Team Providers Care Coat Operator Insulator Name Role Phone Camille Avila MD Primary Care Provider [phone] Nae Campos RN Unavailable Unavailable Encounter Details Date Type Department Care Team ([facility] Contact Info) Description 07/31/2019 Orders Only [facility] [address] [place] [address] Conversion, Onbase Social History Tobacco Use Types Packs/Day Years Used Date Smoking Tobacco: Never Assessed Sex and Gender Information Value Date Recorded Sex Assigned at Not on file Legal Sex Male 11:53 PM EST Gender Identity Not on file Sexual Orientation Not on file documented as of this encounter Plan of Treatment Upcoming Encounters Date Type Department Care Team ([facility] Contact Info) Description 04/03/2025 10:00 AM EDT Office Visit [facility] [address] [facility] [address] [place] [phone] [place] [address] Department of Medicine-Gastroenter ology [place] [phone] Scheduled Orders Name Type Priority Associated Diagnoses Orde r Schedule OUTSIDE LAB SCAN Lab Ordered: 07/31/2019 documented as of this encounter Visit Diagnoses Not on filedocumented in this encounter Care Teams Coat Operator Insulator Relationship Specialty Start Date End Date Camille Avila MD [address] [place] [address] PCP - General 05/19/16 Nae Campos, wood tank erectorOil Recovery Operator Transplant 07/07/23 documented as of this encounter
--- OUTSIDE RECORDS SUMMARY | 2025-02-25 08:32 | XMS_ITS | Encounter Summary ---
Author Organization [facility] Address [address] [place] [address] Phone Care Team Providers Care User Experience Lead Name Role Phone Camille Avila MD Primary Care Provider [phone] Nae Campos RN Unavailable Unavailable Encounter Details Date Type Department Care Team ([facility] Contact Info) Description 04/24/2023 Orders Only [facility] [address] [place] [address] Conversion, Onbase Social History Tobacco Use Types Packs/Day Years Used Date Smoking Tobacco: Never Assessed Sex and Gender Information Value Date Recorded Sex Assigned at Not on file Legal Sex Male 11:53 PM EST Gender Identity Not on file Sexual Orientation Not on file documented as of this encounter Plan of Treatment Upcoming Encounters Date Type Department Care Team ([facility] Contact Info) Description 04/03/2025 10:00 AM EDT Office Visit [facility] [address] [place] [phone] [place] [address] Department of Medicine-Gastroenter ology [place] [phone] Scheduled Orders Name Type Priority Associated Diagnoses Orde r Schedule OUTSIDE LAB SCAN Lab Ordered: 04/24/2023 documented as of this encounter Visit Diagnoses Not on filedocumented in this encounter Care Teams User Experience Lead Relationship Specialty Start Date End Date Camille Avila MD [address] [place] [address] PCP - General 05/19/16 Nae Campos, combination machine tenderHead Boys Golf Coach Transplant 07/07/23 documented as of this encounter
--- OUTSIDE RECORDS SUMMARY | 2025-02-25 08:32 | XMS_ITS | Encounter Summary ---
Author Organization [facility] Address [address] [place] [address] Phone Care Team Providers Care Campus President Name Role Phone Camille Avila MD Primary Care Provider [phone] Nae Campos RN Unavailable Unavailable Encounter Details Date Type Department Care Team ([facility] Contact Info) Description 08/01/2016 Orders Only [facility] [address] [place] [address] Conversion, Onbase Social History Tobacco Use Types Packs/Day Years Used Date Smoking Tobacco: Never Assessed Sex and Gender Information Value Date Recorded Sex Assigned at Not on file Legal Sex Male 11:53 PM EST Gender Identity Not on file Sexual Orientation Not on file documented as of this encounter Plan of Treatment Upcoming Encounters Date Type Department Care Team ([facility] Contact Info) Description 04/03/2025 10:00 AM EDT Office [facility] [address] [facility] [address] [place] [phone] [place] [address] Department of Medicine-Gastroenter ology [place] [phone] Scheduled Orders Name Type Priority Associated Diagnoses Orde r Schedule OUTSIDE LAB SCAN Lab Ordered: 08/01/2016 documented as of this encounter Visit Diagnoses Not on filedocumented in this encounter Care Teams Campus President Relationship Specialty Start Date End Date Camille Avila MD [address] [place] [address] PCP - General 05/19/16 Nae Campos, anatomic pathology assistantFacilities Mechanical Design Engineer Transplant 07/07/23 documented as of this encounter
--- OUTSIDE RECORDS SUMMARY | 2025-02-25 08:32 | XMS_ITS | Encounter Summary ---
Author Organization [facility] Address [address] [place] [address] Phone Care Team Providers Care Template Clerk Name Role Phone Camille Avila MD Primary Care Provider [phone] Nae Campos RN Unavailable Unavailable Encounter Details Date Type Department Care Team (Late Contact Info) Description 07/19/2023 Lab Requisition [facility] [address] [place] [phone] [place] [address] Department of Medicine-[place] [id number] Social History Tobacco Use Types Packs/Day Years [...] was confirmed or suspected to have Coronavirus/COVID-19? Unable to assess 07/19/2023 3:39 PM EDT documented as of this encounter Plan of Treatment Upcoming Encounters Date Type Department Care Team ([facility] Contact Info) Description 04/03/2025 10:00 AM EDT Office Visit [facility] [address] [phone] Sharan Ayoub MD [address] [place] [address] Department of Medicine[place] [address] documented as of this encounter Procedures Procedure Name Priority Date/Time Associated Diagnosis Comments TACROLIMUS Routine 07/18/2023 11:47 AM EDT documented in this encounter Results * Tacrolimus (07/18/2023 11:47 AM EDT) Tacrolimus 14.5 <=15.0 ng/mL LAB CHEMISTRY METHOD 07/20/2023 8:01 PM EDT [facility] Blood Venous blood specimen / Unknown 07/18/2023 11:47 AM EDT 07/19/2023 4:31 AM EDT Narrative [facility] - 07/20/2023 8:01 PM EDT NOTE: Result was obtained using a chemiluminescent microparticle immunoassay (CMIA) on the Candy Puller i system. Optimal therapeutic ranges for immunosuppressant drugs depend upon an individual patient's current clinical state, type of organ transplant, time post-transplant, co-administration of other immunosuppressants, and other clinical factors. The results of this test should be correlated with additional clinical and laboratory data before changes in treatment regimens are made. us Sharan Ayoub MD LAB BLOOD ORDERABLES Final Re sult [facility] [address] [place] [address] documented in this encounter Visit Diagnoses Not on filedocumented in this encounter Care Teams Template Clerk Relationship Specialty Start Date End Date Camille Avila MD [employer] [place] [address] PCP - General 05/19/16 Nae Campos RN Warehouse Picker Transplant 07/07/23 documented as of this encounter
--- OUTSIDE RECORDS SUMMARY | 2025-02-25 08:32 | XMS_ITS | Encounter Summary ---
Author Organization [facility] Address [address] [place] [address] Phone Care Team Providers Care Director Long Term Care Name Role Phone Camille Avila MD Primary Care Provider [phone] Nae Campos RN Unavailable Unavailable Encounter Details Date Type Department Care Team ([facility] Contact Info) Description 08/08/2016 Orders Only [facility] [address] [place] [address] Conversion, Onbase Social History Tobacco Use Types [...] Description 04/03/2025 10:00 AM EDT Office Visit [facility] [address] [facility] [address] [place] [phone] [place] [address] Department of Medicine-Gastroenter ology [place] [phone] Scheduled Orders Name Type Priority Associated Diagnoses Orde r Schedule OUTSIDE LAB SCAN Lab Ordered: 08/08/2016 documented as of this encounter Visit Diagnoses Not on filedocumented in this encounter Care Teams Director Long Term Care Relationship Specialty Start Date End Date Camille Avila MD [address] [place] [address] PCP - General 05/19/16 Nae Campos, machine binding folderDinkey Motor Operator Transplant 07/07/23 documented as of this encounter
--- OUTSIDE RECORDS SUMMARY | 2025-02-25 08:32 | XMS_ITS | Encounter Summary ---
Author Organization [facility] Address [address] [place] [address] Phone Care Team Providers Care Education And Training Coordinator Name Role Phone Camille Avila MD Primary Care Provider [phone] Nae Campos RN Unavailable Unavailable Encounter Details Date Type Department Care Team (Late st Contact Info) Description 02/07/2024 Lab Requisition [facility] [address] [place] [phone] [place] [address] [facility] Department of Medicine-Gastroen terology [place] [phone] Liver transplant rejection (Multi); Liver transplant status [...] place to sleep or slept in a longterm (including now)? No 01/19/2024 Sex and Gender [...] Description 04/03/2025 10:00 AM EDT Office Visit [facility] [address] [phone] [place] [address] Department of Medicine-[place] [address] documented as of this encounter Procedures Procedure Name Priority Date/Time Associated Diagnosis Comments TACROLIMUS Routine 02/06/2024 11:31 AM EDT documented in this encounter Results * Tacrolimus (02/06/2024 11:31 AM EDT) Tacrolimus 7.5 <=15.0 ng/mL LAB CHEMISTRY METHOD 02/07/2024 2:15 PM EDT [facility] Blood Venous blood specimen / Unknown 02/06/2024 11:31 AM EDT 02/07/2024 4:17 AM EDT Narrative [facility] - 02/07/2024 2:15 PM EDT NOTE: Result was obtained using a chemiluminescent microparticle immunoassay (CMIA) on the Management Consultant i system. Optimal therapeutic ranges for immunosuppressant drugs depend upon an individual patient's current clinical state, type of organ transplant, time post-transplant, co-administration of other immunosuppressants, and other clinical factors. The results of this test should be correlated with additional clinical and laboratory data before changes in treatment regimens are made. 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
--- OUTSIDE RECORDS SUMMARY | 2025-02-25 08:32 | XMS_ITS | Encounter Summary ---
Author Organization [facility] Address [address] [place] [address] Phone Care Team Providers Care Instantizer Operator Name Role Phone Camille Avila MD Primary Care Provider [phone] Nae Campos RN Unavailable Unavailable Encounter Details Date Type Department Care Team ([facility] Contact Info) Description 09/28/[address] [facility] [address] [place] [address] Conversion, Onbase Social History Tobacco Use Types Packs/Day Years Used Date Smoking Tobacco: Never Assessed Sex and Gender Information Value Date Recorded Sex Assigned at Not on file Legal Sex Male 11:53 PM EST Gender Identity Not on file Sexual Orientation Not on file documented as of this encounter Plan of Treatment Upcoming Encounters Date Type Department Care Team ([facility] Contact Info) Description 04/03/2025 10:00 AM EDT Office Visit [facility] [address] [facility] [address] [place] [phone] [place] [address] Department of Medicine-Gastroenter ology [place] [phone] Scheduled Orders Name Type Priority Associated Diagnoses Orde r Schedule OUTSIDE LAB SCAN Lab Ordered: 09/28/2016 documented as of this encounter Visit Diagnoses Not on filedocumented in this encounter Care Teams Instantizer Operator Relationship Specialty Start Date End Date Camille Avila MD [address] [place] [address] PCP - General 05/19/16 Nae Campos, unindentured apprenticeNursing Unit Clerk Transplant 07/07/23 documented as of this encounter
--- OUTSIDE RECORDS SUMMARY | 2025-02-25 08:32 | XMS_ITS | Encounter Summary ---
Author Organization [facility] Address [address] [place] [address] Phone Care Team Providers Care Assessment Services Manager Name Role Phone Camille Avila MD Primary Care Provider [phone] Nae Campos RN Unavailable Unavailable Encounter Details Date Type Department Care Team ([facility] Contact Info) Description 09/13/2016 Orders Only [facility] [address] [place] [address] Conversion, Onbase Social History Tobacco Use Types Packs/Day Years Used Date Smoking Tobacco: Never Assessed Sex and Gender Information Value Date Recorded Sex Assigned at Not on file Legal Sex Male 11:53 PM EST Gender Identity Not on file Sexual Orientation Not on file documented as of this encounter Plan of Treatment Upcoming Encounters Date Type Department Care Team ([facility] Contact Info) Description 04/03/2025 10:00 AM EDT Office Visit [facility] [address] [facility] [address] [place] [phone] [place] [address] Department of Medicine-Gastroenter ology [place] [phone] Scheduled Orders Name Type Priority Associated Diagnoses Orde r Schedule OUTSIDE LAB SCAN Lab Ordered: 09/13/2016 documented as of this encounter Visit Diagnoses Not on filedocumented in this encounter Care Teams Assessment Services Manager Relationship Specialty Start Date End Date Camille Avila MD [address] [place] [address] PCP - General 05/19/16 Nae Campos, securities and real estate directorBilingual Research Interviewer Transplant 07/07/23 documented as of this encounter
--- OUTSIDE RECORDS SUMMARY | 2025-02-25 08:32 | XMS_ITS | Encounter Summary ---
Author Organization [facility] Address [address] [place] [address] Phone Care Team Providers Care Dispute Coordinator Name Role Phone Camille Avila MD Primary Care Provider [phone] Nae Campos RN Unavailable Unavailable Encounter Details Date Type Department Care Team (Late st Contact Info) Description 05/14/2024 Scanned Document [facility] [address] [place] [address] [place] [address] Department of Medicine-Gastroent erology [place] [phone] Social History Tobacco Use Types Packs/Day Years [...] place to sleep or slept in a fci (including now)? No 01/19/2024 Sex and Gender Information Value Date Recorded Sex Assigned at Not on file Legal Sex Male 11:53 PM EST Gender Identity Not on file Sexual Orientation Not on file COVID-19 Exposure Response Date Recorded In the last 10 days, have yo u been in contact with someone who was confirmed or suspected to have Coronavirus/COVID-19? No / Unsure 04/18/2024 9:19 AM EDT documented as of this encounter Plan of Treatment Upcoming Encounters Date Type Department Care Team (Late st Contact Info) Description 04/03/2025 10:00 AM EDT Office Visit [facility] [address] [facility] [address] [place] [phone] [place] [address] Department of [place] [address] documented as of this encounter Visit Diagnoses Not on filedocumented in this encounter Care Teams Dispute Coordinator Relationship Specialty Start Date End Date Camille Avila MD [address] [place] [address] PCP - General 05/19/16 Nae Campos, circuit breaker assemblerMen'S Custom Hair Piece Consultant Transplant 07/07/23 documented as of this encounter
--- OUTSIDE RECORDS SUMMARY | 2025-02-25 08:32 | XMS_ITS | Encounter Summary ---
Author Organization [facility] Address [address] [place] [address] Phone Care Team Providers Care Operations Research Director Name Role Phone Camille Avila MD Primary Care Provider [phone] Nae Campos RN Unavailable Unavailable Encounter Details Date Type Department Care Team (Latest Contact Info) Description 07/01/2024 Lab Requisition [facility] [address] [place] [phone] [place] [address] Department of [place] [address] Status post liver transplantation (Multi) Social History Tobacco Use Types Packs/Day [...] place to sleep or slept in a custodial (including now)? No 01/19/2024 Sex and Gender Information Value Date Recorded Sex Assigned at Not on file Legal Sex Male 11:53 PM EST Gender Identity Not on file Sexual Orientation Not on file documented as of this encounter Plan of Treatment Upcoming Encounters Date Type Department Care Team (Late st Contact Info) Description 04/03/2025 10:00 AM EDT Office Visit [facility] [address] [facility] [address] [place] [address] [place] [address] Department [place] [address] documented as of this encounter Procedures Procedure Name Priority Date/Time Associated Diagnosis Comments TACROLIMUS Routine 07/01/2024 11:45 AM EDT Status post liver transplantation (Multi) documented in this encounter Results * Tacrolimus (07/01/2024 11:45 AM EDT) Tacrolimus 8.5 <=15.0 ng/mL LAB CHEMISTRY METHOD 07/02/2024 10:49 AM EDT [facility] Blood Venous blood specimen / Unknown 07/01/2024 11:45 AM EDT 07/01/2024 6:14 PM EDT Narrative [facility] - 07/02/2024 10:49 AM EDT NOTE: Result was obtained using a chemiluminescent microparticle immunoassay (CMIA) on the Meat Grader i system. Optimal therapeutic ranges for immunosuppressant [...] Re sult [facility] [address] [place] [phone] documented in this encounter Visit Diagnoses Diagnosis Status post liver transplantation (Multi) Liver replaced by transplant documented in this encounter Care Teams Operations Research Director Relationship Specialty Start Date End Date Camille Avila MD [address] [place] [address] PCP - General 05/19/16 Nae Campos, event crew technicianCarbon Capture Power Plant Operator Transplant 07/07/23 documented as of this encounter
--- OUTSIDE RECORDS SUMMARY | 2025-02-25 08:32 | XMS_ITS | Encounter Summary ---
Author Organization [facility] Address [address] [place] [address] Phone Care Team Providers Care Career Development Manager Name Role Phone Camille Avila MD Primary Care Provider [phone] Nae Campos RN Unavailable Unavailable Encounter Details Date Type Department Care Team ([facility] Contact Info) Description 11/07/2016 Orders Only [facility] [address] [place] [address] Conversion, Onbase Social History Tobacco Use Types [...] [facility] [place] [address] [facility] [address] [place] [phone] [place] [address] Department of Medicine-Gastroenter ology [place] [phone] Scheduled Orders Name Type Priority Associated Diagnoses Orde r Schedule OUTSIDE LAB SCAN Lab Ordered: 11/07/2016 documented as of this encounter Visit Diagnoses Not on filedocumented in this encounter Care Teams Career Development Manager Relationship Specialty Start Date End Date Camille Avila MD [address] [place] [address] PCP - General 05/19/16 Nae Campos, post doc fellowshipRotary Drill Rig Operator Transplant 07/07/23 documented as of this encounter
--- OUTSIDE RECORDS SUMMARY | 2025-02-25 08:32 | XMS_ITS | Encounter Summary ---
Author Organization [facility] Address [address] [place] [address] Phone Care Team Providers Care Radiator Specialist Name Role Phone Camille Avila MD Primary Care Provider [phone] Nae Campos RN Unavailable Unavailable Encounter Details Date Type Department Care Team (Late st Contact Info) Description 09/10/2024 Lab Requisition [facility] [address] [place] [phone] [place] [address] [facility] Department of Medicine-Gastroen terology [place] [id number] 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 Social History Tobacco Use Types Packs/Day Years [...] Description 04/03/2025 10:00 AM EDT Office Visit [facility] [address] [facility] [address] [place] [address] [place] [address] Department [place] [address] documented as of this encounter Procedures Procedure Name Priority Date/Time Associated Diagnosis Comments CBC WITH AUTO DIFFERENTIAL Routine 09/09/2024 7:46 AM EST 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 EBV PCR, QUANTITATIVE, PLASMA Routine 09/09/2024 7:46 AM EST 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 TACROLIMUS Routine 09/09/2024 7:46 AM EST 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 CMV DNA, QUANTITATIVE, PCR, PLASMA Routine 09/09/2024 7:46 AM EST 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 documented in this encounter Results * CMV DNA, Quantitative PCR, Plasma (09/09/2024 7:46 AM EST) Cytomegalovirus DNA, PCR Log IU/ML 09/11/2024 1:10 PM EST [facility] Comment:Not calculated CMV DNA Result Not Detected Not Detected 09/11/2024 1:10 PM EST [facility] Blood Venous blood specimen / Unknown 09/09/2024 7:46 AM EST 09/10/2024 2:00 PM EST Narrative [facility] - 09/11/2024 1:10 PM EST Reportable Range: 35-10,000,000 IU/mL. The adrianne CMV test is an in vitro nucleic acid amplification test for the quantitation of Cytomegalovirus (CMV) DNA in human EDTA plasma on the adrianne 6800/8800 Systems. The analytical quantification range of this assay has been determined to be 35 to 10,000,000 IU/ml in plasma. Mutations within the highly-conserved regions of the CMV DNA polymerase (UL54) gene covered by adrianne CMV may affect primers and/or probe binding resulting in the under-quantitation of virus or failure to detect the presence of virus. The adrianne CMV mitigates this risk through the use [...] <35 Detected or >10,000,000 Detected . The adrianne CMV is intended for use as an aid in the management of CMV in solid organ transplant patients and in hematopoietic stem cell transplant patients. In patients receiving anti-CMV therapy, serial DNA measurements can be used to assess viral response to treatment. The results from adrianne CMV must be interpreted within the context of all relevant clinical and laboratory findings. This test is approved by the [place] Food and Drug Administration, and its performance characteristics verified by the Molecular Diagnostic Laboratory, Department of Pathology, [facility]. us Sharan Ayoub MD LAB MOLECULAR DIAGNOSTICS ORD ERABLES Final Result [facility] [address] [address] [place] [phone] * (ABNORMAL) Isaac-Fair PCR, Quantitative, Plasma (09/09/2024 7:46 AM EST) EBV PCR, Quant, Plasma 66(H) Not Detected IU/mL ADRIANNE 8800 SYSTEM_ROC HE_EUA 09/10/2024 12:43 PM EST [facility] EBV DNA Result Detected( A) Not Detected 09/10/2024 12:43 PM EST [facility] EBV PCR Plasma Log 1.82 Log IU/mL ADRIANNE 8800 SYSTEM_ROC HE_EUA 09/10/2024 12:43 PM EST [facility] Blood Venous blood specimen / Unknown 09/09/2024 7:46 AM EST 09/10/2024 3:11 AM EST Narrative [facility] - 09/10/2024 12:43 PM EST Reportable Range: 35-100,000,000 IU/mL. The adrianne EBV test is an in vitro nucleic acid amplification dual target assay for the quantitation of Isaac-Fair virus (EBV) DNA in human EDTA plasma on the adrianne 6800/8800 Systems. The test employs a dual target virus specific approach from highly-conserved regions of the EBV located in the EBV EBNA-1 gene and the EBV BMRF gene. The analytical quantification range of this assay has been determined to be 35 to 100,000,000 IU/ml in plasma. As with any molecular test, mutations within the target regions of adrianne EBV could affect primer and/or probe binding resulting in the under- quantitation of virus or failure to detect the presence of virus. If the assay DETECTED the presence of the virus but was not able to accurately quantify the number of copies, the test result will be reported as <35 Detected or >100,000,000 Detected . The adrianne EBV test is intended for use as an aid in the management of EBV in transplant patients. In patients undergoing monitoring of EBV, serial DNA measurements can be used to indicate the need for potential treatment changes and to assess response to treatment. The results from adrianne EBV are intended to be read and [...] the Molecular Diagnostic Laboratory, Department of Pathology, [facility]. us Sharan Ayoub MD LAB MOLECULAR DIAGNOSTICS ORD ERABLES Final Result Performing Organization Address [facility] Co de Phone Number [facility] [address] [place] [address] * Tacrolimus (09/09/2024 7:46 AM EST) Tacrolimus 9.4 <=15.0 ng/mL LAB CHEMISTRY METHOD 09/10/2024 10:54 AM EST [facility] Blood Venous blood specimen / Unknown 09/09/2024 7:46 AM EST 09/10/2024 3:11 AM EST Narrative [facility] - 09/10/2024 10:54 AM EST NOTE: Result was obtained using a chemiluminescent microparticle immunoassay (CMIA) on the Laundry Technician i system. Optimal therapeutic ranges for immunosuppressant drugs depend upon an individual patient's current clinical state, type of organ transplant, time post-transplant, co-administration of other immunosuppressants, and other clinical factors. The results of this test should be correlated with additional clinical and laboratory data before changes in treatment regimens are made. us Sharan Ayoub MD LAB BLOOD ORDERABLES Final Re sult Performing Organization Address [facility] Co de Phone Number [facility] [address] [place], [place] [id number] * (ABNORMAL) CBC and Auto Differential (09/09/2024 7:46 AM EST) WBC 9.8 4.4 - 11.3 x10*3/uL LAB HEMATOLOGY METHOD 09/10/2024 4:02 AM EST [facility] nRBC 0.0 0.0 - 0.0 /100 WBCs LAB HEMATOLOGY METHOD 09/10/2024 4:02 AM EST [facility] RBC 4.38(L) 4.50 - 5.90 x10*6/uL LAB HEMATOLOGY METHOD 09/10/2024 4:02 AM EST [facility] Hemoglobin 13.4(L) 13.5 - 17.5 g/dL LAB HEMATOLOGY METHOD 09/10/2024 4:02 AM [facility] Hematocrit 40.8(L) 41.0 - 52.0 % LAB HEMATOLOGY METHOD 09/10/2024 4:02 AM [facility] MCV 93 80 - 100 fL LAB HEMATOLOGY METHOD 09/10/2024 4:02 AM [facility] MCH 30.6 26.0 - 34.0 pg LAB HEMATOLOGY METHOD 09/10/2024 4:02 AM [facility] MCHC 32.8 32.0 - 36.0 g/dL LAB HEMATOLOGY METHOD 09/10/2024 4:02 AM [facility] RDW 13.9 11.5 - 14.5 % LAB HEMATOLOGY METHOD 09/10/2024 4:02 AM [facility] Platelets 129(L) 150 - 450 x10*3/uL LAB HEMATOLOGY METHOD 09/10/2024 4:02 AM [facility] Neutrophils % 72.9 40.0 - 80.0 % LAB HEMATOLOGY METHOD 09/10/2024 4:02 AM [facility] Immature Granulocytes %, Automated 0.6 0.0 - 0.9 % LAB HEMATOLOGY METHOD 09/10/2024 4:02 AM [facility] Comment:Immature Granulocyte Count (IG) includes promyelocytes, myelocytes and metamyelocytes but does not include bands. Percent differential counts (%) should be interpreted in the context of the absolute cell counts (cells/UL). Lymphocytes % 19.5 13.0 - 44.0 % LAB HEMATOLOGY METHOD 09/10/2024 4:02 AM [facility] Monocytes % 6.4 2.0 - 10.0 % LAB HEMATOLOGY METHOD 09/10/2024 4:02 AM [facility] Eosinophils % 0.4 0.0 - 6.0 % LAB HEMATOLOGY METHOD 09/10/2024 4:02 AM [facility] Basophils % 0.2 0.0 - 2.0 % LAB HEMATOLOGY METHOD 09/10/2024 4:02 AM [facility] Neutrophils Absolute 7.12 1.20 - 7.70 x10*3/uL LAB HEMATOLOGY METHOD 09/10/2024 4:02 AM EST [facility] Comment:Percent differential counts (%) should be interpreted in the context of the absolute cell counts (cells/uL). Immature Granulocytes Absolute, Automated 0.06 0.00 - 0.70 x10*3/uL LAB HEMATOLOGY METHOD 09/10/2024 4:02 AM EST [facility] Lymphocytes Absolute 1.91 1.20 - 4.80 x10*3/uL LAB HEMATOLOGY METHOD 09/10/2024 4:02 AM EST [facility] Monocytes Absolute 0.63 0.10 - 1.00 x10*3/uL LAB HEMATOLOGY METHOD 09/10/2024 4:02 AM EST [facility] Eosinophils Absolute 0.04 0.00 - 0.70 x10*3/uL LAB HEMATOLOGY METHOD 09/10/2024 4:02 AM EST [facility] Basophils Absolute 0.02 0.00 - 0.10 x10*3/uL LAB HEMATOLOGY METHOD 09/10/2024 4:02 AM EST [facility] Blood Venous blood specimen / Unknown 09/09/2024 7:46 AM EST 09/10/2024 3:11 AM EST us Sharan Ayoub MD LAB BLOOD ORDERABLES Final Re sult [facility] [address] [address] documented in this encounter Visit Diagnoses Diagnosis 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 documented in this encounter Care Teams Radiator Specialist Relationship Specialty Start Date End Date Camille Avila MD [address] [place] [address] PCP - General 05/19/16 Nae Campos, hand baseball sewerAmmonia Solution Preparer Transplant 07/07/23 documented as of this encounter
--- OUTSIDE RECORDS SUMMARY | 2025-02-25 08:32 | XMS_ITS | Encounter Summary ---
Author Organization [facility] Address [address] [place] [address] Phone Care Team Providers Care Ocean Clam Boat Captain Name Role Phone Camille Avila MD Primary Care Provider [phone] Nae Campos RN Unavailable Unavailable Encounter Details Date Type Department Care Team ([facility] Contact Info) Description 06/01/2018 Orders Only [facility] [address] [place] [address] Conversion, Onbase Social History Tobacco Use Types Packs/Day Years Used Date Smoking Tobacco: Never Assessed Sex and Gender Information Value Date Recorded Sex Assigned at Not on file Legal Sex Male 11:53 PM EST Gender Identity Not on file Sexual Orientation Not on file documented as of this encounter Plan of Treatment Upcoming Encounters Date Type Department Care Team ([facility] Contact Info) Description 04/03/2025 10:00 AM EDT Office Visit [facility] [address] [facility] [address] [place] [phone] [place] [address] Department of Medicine-Gastroenter ology [place] [phone] Scheduled Orders Name Type Priority Associated Diagnoses Orde r Schedule OUTSIDE LAB SCAN Lab Ordered: 06/01/2018 documented as of this encounter Visit Diagnoses Not on filedocumented in this encounter Care Teams Ocean Clam Boat Captain Relationship Specialty Start Date End Date Camille Avila MD [address] [place] [address] PCP - General 05/19/16 Nae Campos, dump attendantOcean Clam Boat Captain Transplant 07/07/23 documented as of this encounter
--- OUTSIDE RECORDS SUMMARY | 2025-02-25 08:32 | XMS_ITS | Encounter Summary ---
Author Organization [facility] Address [address] [place] [address] Phone Care Team Providers Care Vessel Specialist Name Role Phone Camille Avila MD Primary Care Provider [phone] Nae Campos RN Unavailable Unavailable Encounter Details Date Type Department Care Team ([facility] Contact Info) Description 07/14/2016 Orders Only [facility] [address] [place] [address] Conversion, Onbase Social History Tobacco Use Types Packs/Day Years Used Date Smoking Tobacco: Never Assessed Sex and Gender Information Value Date Recorded Sex Assigned at Not on file Legal Sex Male 11:53 PM EST Gender Identity Not on file Sexual Orientation Not on file documented as of this encounter Plan of Treatment Upcoming Encounters Date Type Department Care Team ([facility] Contact Info) Description 04/03/2025 10:00 AM EDT Office Visit [facility] [address] [facility] [address] [place] [phone] [place] [address] Department of Medicine-Gastroenter ology [place] [phone] Scheduled Orders Name Type Priority Associated Diagnoses Orde r Schedule OUTSIDE LAB SCAN Lab Ordered: 07/14/2016 documented as of this encounter Visit Diagnoses Not on filedocumented in this encounter Care Teams Vessel Specialist Relationship Specialty Start Date End Date Camille Avila MD [address] [place] [address] PCP - General 05/19/16 Nae Campos, jd edwards consultantShow Operations Supervisor Transplant 07/07/23 documented as of this encounter
--- OUTSIDE RECORDS SUMMARY | 2025-02-25 08:32 | XMS_ITS | Encounter Summary ---
Author Organization [facility] Address [address] [place] [address] Phone Care Team Providers Care Housekeeping Room Inspector Name Role Phone Camille Avila MD Primary Care Provider [phone] Nae Campos RN Unavailable Unavailable Encounter Details Date Type Department Care Team ([facility] Contact Info) Description 11/16/2016 Orders Only [facility] [address] [place] [address] Conversion, Onbase Social History Tobacco Use Types Packs/Day Years Used Date Smoking Tobacco: Never Assessed Sex and Gender Information Value Date Recorded Sex Assigned at Not on file Legal Sex Male 11:53 PM EST Gender Identity Not on file Sexual Orientation Not on file documented as of this encounter Plan of Treatment Upcoming Encounters Date Type Department Care Team ([facility] Contact Info) Description 04/03/2025 10:00 AM EDT Office Visit [facility] [address] [facility] [address] [place] [phone] [place] [address] Department of Medicine-Gastroenter ology [place] [phone] Scheduled Orders Name Type Priority Associated Diagnoses Orde r Schedule OUTSIDE LAB SCAN Lab Ordered: 11/16/2016 documented as of this encounter Visit Diagnoses Not on filedocumented in this encounter Care Teams Housekeeping Room Inspector Relationship Specialty Start Date End Date Camille Avila MD [address] [place] [address] PCP - General 05/19/16 Nae Campos, instant potato processing supervisorCoater Helper Transplant 07/07/23 documented as of this encounter
--- OUTSIDE RECORDS SUMMARY | 2025-02-25 08:32 | XMS_ITS | Encounter Summary ---
Author Organization [facility] Address [address] [place] [address] Phone Care Team Providers Care Mold Maker Name Role Phone Camille Avila MD Primary Care Provider [phone] Nae Campos RN Unavailable Unavailable Encounter Details Date Type Department Care Team (Late st Contact Info) Description 05/14/2024 Lab Requisition [facility] [address] [place] [phone] [place] [address] [address] [facility] Department of Medicine-Gastroen terology [place] [phone] Liver transplant rejection (Multi); Liver transplant status [...] place to sleep or slept in a care home (including now)? No 01/19/2024 Sex and [...] Description 04/03/2025 10:00 AM EDT Office Visit [facility] [address] [phone] [place] [address] Department of Medicine-[place] [address] documented as of this encounter Procedures Procedure Name Priority Date/Time Associated Diagnosis Comments TACROLIMUS Routine 05/13/2024 11:07 AM EDT Liver transplant status (Multi) Liver transplant rejection (Multi) documented in this encounter Results * Tacrolimus (05/13/2024 11:07 AM EDT) Tacrolimus 8.5 <=15.0 ng/mL LAB CHEMISTRY METHOD 05/14/2024 12:33 PM EDT [facility] Blood Venous blood specimen / Unknown 05/13/2024 11:07 AM EDT 05/14/2024 7:36 AM EDT Narrative [facility] - 05/14/2024 12:33 PM EDT NOTE: Result was obtained using a chemiluminescent microparticle immunoassay (CMIA) on the House Mover Supervisor i system. Optimal therapeutic ranges for immunosuppressant drugs depend upon an individual patient's current clinical state, type of organ transplant, time post-transplant, co-administration of other immunosuppressants, and other clinical factors. The results of this test should be correlated with additional clinical and laboratory data before changes in treatment regimens are made. 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
--- OUTSIDE RECORDS SUMMARY | 2025-02-25 08:32 | XMS_ITS | Encounter Summary ---
Author Organization [facility] Address [address] [place] [address] Phone Care Team Providers Care Academic Affairs Manager Name Role Phone Camille Avila MD Primary Care Provider [phone] Nae Campos RN Unavailable Unavailable Encounter Details Date Type Department Care Team ([facility] Contact Info) Description 12/24/2020 Orders Only [facility] [address] [place] [address] Conversion, Onbase Social History Tobacco Use Types Packs/Day Years Used Date Smoking Tobacco: Never Assessed Sex and Gender Information Value Date Recorded Sex Assigned at Not on file Legal Sex Male 11:53 PM EST Gender Identity Not on file Sexual Orientation Not on file documented as of this encounter Plan of Treatment Upcoming Encounters Date Type Department Care Team ([facility] Contact Info) Description 04/03/2025 10:00 AM EDT Office Visit [facility] [address] [place] [phone] [place] [address] Department of Medicine-Gastroenter ology [place] [phone] Scheduled Orders Name Type Priority Associated Diagnoses Orde r Schedule OUTSIDE LAB SCAN Lab Ordered: 12/24/2020 documented as of this encounter Visit Diagnoses Not on filedocumented in this encounter Care Teams Academic Affairs Manager Relationship Specialty Start Date End Date Camille Avila MD [address] [place] [address] PCP - General 05/19/16 Nae Campos, shoe stitcher oddBull Rider Transplant 07/07/23 documented as of this encounter
--- OUTSIDE RECORDS SUMMARY | 2025-02-25 08:32 | XMS_ITS | Encounter Summary ---
Author Organization [facility] Address [address] [place] [address] Phone Care Team Providers Care Iron Erector Name Role Phone Camille Avila MD Primary Care Provider Nae Campos RN Unavailable Unavailable Encounter Details Date Type Department Care Team (Late Contact Info) Description 10/03/2023 Lab Requisition [facility] [address] [place] [phone] [place] [address] [address] [facility] Department of Medicine-Gastroen terology [place], [place] [phone] Liver transplant status (Multi) Social History Tobacco [...] EDT Office Visit [facility] [address] [facility] [address] [place] [phone] [place] [address] Department of Medicine-[place] [address] documented as of this encounter Procedures Procedure Name Priority Date/Time Associated Diagnosis Comments TACROLIMUS Routine 10/03/2023 11:09 AM EST Liver transplant status (CMS/HCC) documented in this encounter Results * Tacrolimus (10/03/2023 11:09 AM EST) Tacrolimus 9.5 <=15.0 ng/mL LAB CHEMISTRY METHOD 10/04/2023 11:04 AM EST [facility] Blood Venous blood specimen / Unknown 10/03/2023 11:09 AM EST 10/03/2023 10:44 PM EST Narrative [facility] - 10/04/2023 11:04 AM EST NOTE: Result was obtained using a chemiluminescent microparticle immunoassay (CMIA) on the Field Services Analyst i system. Optimal therapeutic ranges for immunosuppressant drugs depend upon an individual patient's current clinical state, type of organ transplant, time post-transplant, co-administration of other immunosuppressants, and other clinical factors. The results of this test should be correlated with additional clinical and laboratory data before changes in treatment regimens are made. us Sharan Ayoub MD LAB BLOOD ORDERABLES Final Re sult [facility] [id number] [place] [address] documented in this encounter Visit Diagnoses Diagnosis Liver transplant status documented in this encounter Care Teams Iron Erector Relationship Specialty Start Date End Date Camille Avila MD [facility] [place] [address] PCP - General 05/19/16 Nae Campos, machine room engineerConcrete Bucket Loader Transplant 07/07/23 documented as of this encounter
--- OUTSIDE RECORDS SUMMARY | 2025-02-25 08:32 | XMS_ITS | Encounter Summary ---
Author Organization [facility] Address [address] [place] [address] Phone Care Team Providers Care Chronometer Adjuster Name Role Phone Camille Avila MD Primary Care Provider [phone] Nae Campos RN Unavailable Unavailable Encounter Details Date Type Department Care Team ([facility] Contact Info) Description 12/24/2020 Orders Only [facility] [address] [place] [address] Conversion, Onbase Social History Tobacco Use Types Packs/Day Years Used Date Smoking Tobacco: Never Assessed Sex and Gender Information Value Date Recorded Sex Assigned at Not on file Legal Sex Male 11:53 PM EST Gender Identity Not on file Sexual Orientation Not on file documented as of this encounter Plan of Treatment Upcoming Encounters Date Type Department Care Team ([facility] Contact Info) Description 04/03/2025 10:00 AM EDT Office Visit [facility] [address] [place] [phone] [place] [address] Department of Medicine-Gastroenter ology [place] [phone] Scheduled Orders Name Type Priority Associated Diagnoses Orde r Schedule OUTSIDE LAB SCAN Lab Ordered: 12/24/2020 documented as of this encounter Visit Diagnoses Not on filedocumented in this encounter Care Teams Chronometer Adjuster Relationship Specialty Start Date End Date Camille Avila MD [address] [place] [address] PCP - General 05/19/16 Nae Campos, pharmacy clinical specialistSpragger Transplant 07/07/23 documented as of this encounter
--- OUTSIDE RECORDS SUMMARY | 2025-02-25 08:32 | XMS_ITS | Encounter Summary ---
Author Organization [facility] Address [address] [place] [address] Phone Care Team Providers Care Market Specialist Name Role Phone Camille Avila MD Primary Care Provider [phone] Nae Campos RN Unavailable Unavailable Encounter Details Date Type Department Care Team ([facility] Contact Info) Description 11/29/2016 Orders Only [facility] [address] [place] [address] Conversion, Onbase Social History Tobacco Use Types Packs/Day Years Used Date Smoking Tobacco: Never Assessed Sex and Gender Information Value Date Recorded Sex Assigned at Not on file Legal Sex Male 11:53 PM EST Gender Identity Not on file Sexual Orientation Not on file documented as of this encounter Plan of Treatment Upcoming Encounters Date Type Department Care Team ([facility] Contact Info) Description 04/03/2025 10:00 AM EDT Office Visit [facility] [address] [facility] [address] [place] [phone] [place] [address] Department of Medicine-Gastroenter ology [place] [phone] Scheduled Orders Name Type Priority Associated Diagnoses Orde r Schedule OUTSIDE LAB SCAN Lab Ordered: 11/29/2016 documented as of this encounter Visit Diagnoses Not on filedocumented in this encounter Care Teams Market Specialist Relationship Specialty Start Date End Date Camille Avila MD [address] [place] [address] PCP - General 05/19/16 Nae Campos, head baggage porterLogistics Research Engineer Transplant 07/07/23 documented as of this encounter
--- OUTSIDE RECORDS SUMMARY | 2025-02-25 08:32 | XMS_ITS | Encounter Summary ---
Author Organization [facility] Address [address] [place] [address] Phone Care Team Providers Care Graduate Fellow Name Role Phone Camille Avila MD Primary Care Provider [phone] Nae Campos RN Unavailable Unavailable Encounter Details Date Type Department Care Team ([facility] Contact Info) Description 06/09/2023 Orders Only [facility] [address] [place] [address] Conversion, Onbase Social History Tobacco Use Types Packs/Day Years Used Date Smoking Tobacco: Never Assessed Sex and Gender Information Value Date Recorded Sex Assigned at Not on file Legal Sex Male 11:53 PM EST Gender Identity Not on file Sexual Orientation Not on file documented as of this encounter Plan of Treatment Upcoming Encounters Date Type Department Care Team ([facility] Contact Info) Description 04/03/2025 10:00 AM EDT Office Visit [facility] [address] [place] [phone] [place] [address] Department of Medicine-Gastroenter ology [place] [phone] Scheduled Orders Name Type Priority Associated Diagnoses Orde r Schedule OUTSIDE LAB SCAN Lab Ordered: 06/09/2023 documented as of this encounter Visit Diagnoses Not on filedocumented in this encounter Care Teams Graduate Fellow Relationship Specialty Start Date End Date Camille Avila MD [address] [place] [address] PCP - General 05/19/16 Nae Campos, oil well gun perforator operatorManager Money Transplant 07/07/23 documented as of this encounter
--- OUTSIDE RECORDS SUMMARY | 2025-02-25 08:32 | XMS_ITS | Encounter Summary ---
Author Organization [facility] Address [address] [place] [address] Phone Care Team Providers Care Heavy Equipment Field Mechanic Name Role Phone Camille Avila MD Primary Care Provider [phone] Nae Campos RN Unavailable Unavailable Encounter Details Date Type Department Care Team (Late st Contact Info) Description 11/06/2024 Lab Requisition [facility] [address] [place] [phone] [place] [address] Department of Medicine-Gastroen terology [place] [id number] Liver transplant status; Liver transplant rejection (Multi) Social History Tobacco [...] Description 04/03/2025 10:00 AM EDT Office Visit [facility] [address] [facility] [address] [place] [phone] [place] [address] Department of Medicine-Gastroenter ology [place] [phone] documented as of this encounter Procedures Procedure Name Priority Date/Time Associated Diagnosis Comments TACROLIMUS Routine 11/06/2024 1:04 PM EST Liver transplant status Liver transplant rejection (Multi) documented in this encounter Results * Tacrolimus (11/06/2024 1:04 PM EST) Tacrolimus 9.2 <=15.0 ng/mL LAB CHEMISTRY METHOD 11/06/2024 10:31 PM EST [facility] Blood Venous blood specimen / Unknown 11/06/2024 1:04 PM EST 11/06/2024 2:59 PM EST Narrative [facility] - 11/06/2024 10:31 PM EST NOTE: Result was obtained using a chemiluminescent microparticle immunoassay (CMIA) on the Marketing Senior Recruiter i system. Optimal therapeutic ranges for immunosuppressant drugs depend upon an individual patient's current clinical state, type of organ transplant, time post-transplant, co-administration of other immunosuppressants, and other clinical factors. The results of this test should be correlated with additional clinical and laboratory data before changes in treatment regimens are made. 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
--- OUTSIDE RECORDS SUMMARY | 2025-02-25 08:32 | XMS_ITS | Encounter Summary ---
Author Organization [facility] Address [address] [place] [address] Phone Care Team Providers Care Senior Visual Designer Name Role Phone Camille Avila MD Primary Care Provider [phone] Nae Campos RN Unavailable Unavailable Encounter Details Date Type Department Care Team ([facility] Contact Info) Description 05/19/2023 Orders Only [facility] [address] [place] [address] Conversion, Onbase Social History Tobacco Use Types Packs/Day Years Used Date Smoking Tobacco: Never Assessed Sex and Gender Information Value Date Recorded Sex Assigned at Not on file Legal Sex Male 11:53 PM EST Gender Identity Not on file Sexual Orientation Not on file documented as of this encounter Plan of Treatment Upcoming Encounters Date Type Department Care Team ([facility] Contact Info) Description 04/03/2025 10:00 AM EDT Office Visit [facility] [address] [place] [phone] [place] [address] Department of Medicine-Gastroenter ology [place] [phone] Scheduled Orders Name Type Priority Associated Diagnoses Orde r Schedule OUTSIDE LAB SCAN Lab Ordered: 05/19/2023 documented as of this encounter Visit Diagnoses Not on filedocumented in this encounter Care Teams Senior Visual Designer Relationship Specialty Start Date End Date Camille Avila MD [address] [place] [address] PCP - General 05/19/16 Nae Campos, debt collection specialistElectronic Gaming Device Supervisor Transplant 07/07/23 documented as of this encounter
--- OUTSIDE RECORDS SUMMARY | 2025-02-25 08:32 | XMS_ITS | Encounter Summary ---
Author Organization [facility] Address [address] [place] [address] Phone Care Team Providers Care Retail Performance Coach Name Role Phone Camille Avila MD Primary Care Provider [phone] Nae Campos RN Unavailable Unavailable Encounter Details Date Type Department Care Team ([facility] Contact Info) Description 03/23/2018 Orders Only [facility] [address] [place] [place] [address] Conversion, Onbase Social History Tobacco Use Types Packs/Day Years Used Date Smoking Tobacco: Never Assessed Sex and Gender Information Value Date Recorded Sex Assigned at Not on file Legal Sex Male 11:53 PM EST Gender Identity Not on file Sexual Orientation Not on file documented as of this encounter Plan of Treatment Upcoming Encounters Date Type Department Care Team ([facility] Contact Info) Description 04/03/2025 10:00 AM EDT Office Visit [facility] [address] [facility] [address] [place] [phone] [place] [address] Department of Medicine-Gastroenter ology [place] [phone] Scheduled Orders Name Type Priority Associated Diagnoses Orde r Schedule OUTSIDE LAB SCAN Lab Ordered: 03/23/2018 documented as of this encounter Visit Diagnoses Not on filedocumented in this encounter Care Teams Retail Performance Coach Relationship Specialty Start Date End Date Camille Avila MD [address] [place] [address] PCP - General 05/19/16 Nae Campos, swim coachHome Health Clinical Liaison Transplant 07/07/23 documented as of this encounter
--- OUTSIDE RECORDS SUMMARY | 2025-02-25 08:32 | XMS_ITS | Encounter Summary ---
Author Organization [facility] Address [address] [place] [address] Phone Care Team Providers Care Deburrer Machine Name Role Phone Camille Avila MD Primary Care Provider [phone] Nae Campos RN Unavailable Unavailable Encounter Details Date Type Department Care Team ([facility] Contact Info) Description 06/09/2023 Orders Only [facility] [address] [place] [address] Conversion, Onbase Social History Tobacco Use Types Packs/Day Years Used Date Smoking Tobacco: Never Assessed Sex and Gender Information Value Date Recorded Sex Assigned at Not on file Legal Sex Male 11:53 PM EST Gender Identity Not on file Sexual Orientation Not on file documented as of this encounter Plan of Treatment Upcoming Encounters Date Type Department Care Team ([facility] Contact Info) Description 04/03/2025 10:00 AM EDT Office Visit [facility] [address] [place] [phone] [place] [address] Department of Medicine-Gastroenter ology [place] [phone] Scheduled Orders Name Type Priority Associated Diagnoses Orde r Schedule OUTSIDE LAB SCAN Lab Ordered: 06/09/2023 documented as of this encounter Visit Diagnoses Not on filedocumented in this encounter Care Teams Deburrer Machine Relationship Specialty Start Date End Date Camille Avila MD [address] [place] [address] PCP - General 05/19/16 Nae Campos, breed to wean production technicianConcrete Curer Transplant 07/07/23 documented as of this encounter
--- OUTSIDE RECORDS SUMMARY | 2025-02-25 08:32 | XMS_ITS | Encounter Summary ---
Author Organization [facility] Address [address] [place] [address] Phone Care Team Providers Care Package Liner Name Role Phone Camille Avila MD Primary Care Provider [phone] Nae Campos RN Unavailable Unavailable Encounter Details Date Type Department Care Team ([facility] Contact Info) Description 10/24/2016 Orders Only [facility] [address] [place] [address] Conversion, Onbase Social History Tobacco Use Types [...] Office Visit [facility] [place] [address] [facility] [address] [place] [phone] [place] [address] Department of Medicine-Gastroenter ology [place] [phone] Scheduled Orders Name Type Priority Associated Diagnoses Orde r Schedule OUTSIDE LAB SCAN Lab Ordered: 10/24/2016 documented as of this encounter Visit Diagnoses Not on filedocumented in this encounter Care Teams Package Liner Relationship Specialty Start Date End Date Camille Avila MD [address] [place] [address] PCP - General 05/19/16 Nae Campos, collision repairerSecond Grade Teacher Transplant 07/07/23 documented as of this encounter
--- OUTSIDE RECORDS SUMMARY | 2025-02-25 08:32 | XMS_ITS | Encounter Summary ---
Author Organization [facility] Address [address] [place] [address] Phone Care Team Providers Care Metallurgical Technician Name Role Phone Camille Avila MD Primary Care Provider [phone] Nae Campos RN Unavailable Unavailable Encounter Details Date Type Department Care Team (Late st Contact Info) Description 08/16/2024 Lab Requisition [facility] [address] [place] [phone] [place] [address] [facility] Department of Medicine-Gastroentero [place] [phone] Social History Tobacco Use Types Packs/Day Years [...] place to sleep or slept in a penitentiary (including now)? No 01/19/2024 Sex and Gender [...] Office Visit [facility] [place] [address] [address] [place] [address] Department of Medicine-Gastroenter [facility] [place] [phone] documented as of this encounter Procedures Procedure Name Priority Date/Time Associated Diagnosis Comments TACROLIMUS Routine 08/15/2024 7:21 AM EST documented in this encounter Results * Tacrolimus (08/15/2024 7:21 AM EST) Tacrolimus 7.4 <=15.0 ng/mL LAB CHEMISTRY METHOD 08/16/2024 10:[address] [facility] Blood Venous blood specimen / Unknown 08/15/2024 7:21 AM EST 08/16/2024 6:[address] [facility] - 08/16/2024 10:35 AM EST NOTE: Result was obtained using a chemiluminescent microparticle immunoassay (CMIA) on the Puppy Sitter i system. Optimal therapeutic ranges for immunosuppressant drugs depend upon an individual patient's current clinical state, type of organ transplant, time post-transplant, co-administration of other immunosuppressants, and other clinical factors. The results of this test should be correlated with additional clinical and laboratory data before changes in treatment regimens are made. us Sharan Ayoub MD LAB BLOOD ORDERABLES Final Re sult [facility] [address] [place], [place] [phone] documented in this encounter Visit Diagnoses Not on filedocumented in this encounter Care Teams Metallurgical Technician Relationship Specialty Start Date End Date Camille Avila MD [address] [place] [address] PCP - General 05/19/16 Nae Campos user experience researcherEmployee Counselor Transplant 07/07/23 documented as of this encounter
--- OUTSIDE RECORDS SUMMARY | 2025-02-25 08:32 | XMS_ITS | Encounter Summary ---
Author Organization [facility] Address [address] [place] [address] Phone Care Team Providers Care Vacation Guide Name Role Phone Camille Avila MD Primary Care Provider [phone] Nae Campos RN Unavailable Unavailable Encounter Details Date Type Department Care Team (Late Contact Info) Description 09/05/2023 Lab Requisition [facility] [address] [place] [address] [place] [address] Department of Medicine-Gastroenter[place] [phone] Social History Tobacco Use Types Packs/Day Years [...] AM EDT Office Visit [facility] [address] [facility] [address] [place] [phone] Sharan Ayoub MD [address] [place] [address] Department [place] [address] documented as of this encounter Procedures Procedure Name Priority Date/Time Associated Diagnosis Comments TACROLIMUS Routine 09/05/2023 12:54 PM EST documented in this encounter Results * Tacrolimus (09/05/2023 12:54 PM EST) Tacrolimus 10.5 <=15.0 ng/mL LAB CHEMISTRY METHOD 09/06/2023 8:25 AM EST [facility] Blood Venous blood specimen / Unknown 09/05/2023 12:54 PM EST 09/05/2023 9:21 PM EST Narrative [facility] - 09/06/2023 8:25 AM EST NOTE: Result was obtained using a chemiluminescent microparticle immunoassay (CMIA) on the Mutton Puncher i system. Optimal therapeutic ranges for immunosuppressant [...] ORDERABLES Final Re sult [facility] [address] [place] [address] documented in this encounter Visit Diagnoses Not on filedocumented in this encounter Care Teams Vacation Guide Relationship Specialty Start Date End Date Camille Avila MD [address] [place] [address] PCP - General 05/19/16 Nae Campos, adoption specialistSolaris Administrator Transplant 07/07/23 documented as of this encounter
--- OUTSIDE RECORDS SUMMARY | 2025-02-25 08:32 | XMS_ITS | Encounter Summary ---
Author Organization [facility] Address [address] [place] [address] Phone Care Team Providers Care Surgical Instrument Technician Name Role Phone Camille Avila MD Primary Care Provider [phone] Nae Campos RN Unavailable Unavailable Encounter Details Date Type Department Care Team ([facility] Contact Info) Description 05/12/2018 Orders Only [facility] [address] [place] [address] Conversion, Onbase Social History Tobacco Use Types [...] Office Visit [facility] [address] [facility] [address] [place] [phone] [place] [address] Department of Medicine-Gastroenter ology [place] [phone] Scheduled Orders Name Type Priority Associated Diagnoses Orde r Schedule OUTSIDE LAB SCAN Lab Ordered: 05/12/2018 documented as of this encounter Visit Diagnoses Not on filedocumented in this encounter Care Teams Surgical Instrument Technician Relationship Specialty Start Date End Date Camille Avila MD [address] [place] [address] PCP - General 05/19/16 Nae Campos, heating systems installerTwill Cutter Transplant 07/07/23 documented as of this encounter
--- OUTSIDE RECORDS SUMMARY | 2025-02-25 08:32 | XMS_ITS | Encounter Summary ---
Author Organization [facility] Address [address] [place] [address] Phone Care Team Providers Care Tube Machine Operator Name Role Phone Camille Avila MD Primary Care Provider [phone] Nae Campos RN Unavailable Unavailable Encounter Details Date Type Department Care Team ([facility] Contact Info) Description 10/12/2016 Orders Only [facility] [address] [place] [address] Conversion, Onbase Social History Tobacco Use Types [...] Care Team ([facility] Contact Info) Description 04/03/2025 10:00 AM EDT Office Visit [facility] [address] [facility] [address] [place] [phone] [place] [address] Department of Medicine-Gastroenter ology [place] [phone] Scheduled Orders Name Type Priority Associated Diagnoses Orde r Schedule OUTSIDE LAB SCAN Lab Ordered: 10/12/2016 documented as of this encounter Visit Diagnoses Not on filedocumented in this encounter Care Teams Tube Machine Operator Relationship Specialty Start Date End Date Camille Avila MD [address] [place] [address] PCP - General 05/19/16 Nae Campos, business administration teacherFront Desk Host Transplant 07/07/23 documented as of this encounter
--- OUTSIDE RECORDS SUMMARY | 2025-02-25 08:32 | XMS_ITS | Encounter Summary ---
Author Organization [facility] Address [address] [place] [address] Phone Care Team Providers Care Shoe Repairman Name Role Phone Camille Avila MD Primary Care Provider [phone] Nae Campos RN Unavailable Unavailable Encounter Details Date Type Department Care Team (Late st Contact Info) Description 02/05/2025 Abstract [facility] [address] [place] [address] [place] [address] Department of Medicine-Gastroenterol [place], [place] [phone] Social History Tobacco Use Types Packs/Day Years [...] place to sleep or slept in a long term (including now)? No 01/19/2024 Sex and Gender Information Value Date Recorded Sex Assigned at Not on file Legal Sex Male 11:53 PM EST Gender Identity Not on file Sexual Orientation Not on file COVID-19 Exposure Response Date Recorded In the last 10 days, have yo u been in contact with someone who was confirmed or suspected to have Coronavirus/COVID-19? No / Unsure 01/09/2025 9:48 AM EDT documented as of this encounter Plan of Treatment Upcoming Encounters Date Type Department Care Team (Late st Contact Info) Description 04/03/2025 10:00 AM EDT Office [facility] [address] [facility] [address] [place] [address] [place] [address] Department [place] [address] documented as of this encounter Visit Diagnoses Not on filedocumented in this encounter Care Teams Shoe Repairman Relationship Specialty Start Date End Date Camille [facility]ila [facility] [place] [address] PCP - General 05/19/16 Nae Campos, medical coding specialistFood Prep Worker Transplant 07/07/23 documented as of this encounter
--- OUTSIDE RECORDS SUMMARY | 2025-02-25 08:32 | XMS_ITS | Encounter Summary ---
Author Organization [facility] Address [address] [place] [address] Phone Care Team Providers Care Studio Receptionist Name Role Phone Camille Avila MD Primary Care Provider [phone] Nae Campos RN Unavailable Unavailable Encounter Details Date Type Department Care Team ([facility] Contact Info) Description 03/19/2018 Orders Only [facility] [address] [place] [address] Conversion, Onbase Social History Tobacco Use Types Packs/Day Years Used Date Smoking Tobacco: Never Assessed Sex and Gender Information Value Date Recorded Sex Assigned at Not on file Legal Sex Male 11:53 PM EST Gender Identity Not on file Sexual Orientation Not on file documented as of this encounter Plan of Treatment Upcoming Encounters Date Type Department Care Team ([facility] Contact Info) Description 04/03/2025 10:00 AM EDT Office Visit [facility] [address] [facility] [address] [place] [phone] [place] [address] Department of Medicine-Gastroenter ology [place] [phone] Scheduled Orders Name Type Priority Associated Diagnoses Orde r Schedule OUTSIDE LAB SCAN Lab Ordered: 03/19/2018 documented as of this encounter Visit Diagnoses Not on filedocumented in this encounter Care Teams Studio Receptionist Relationship Specialty Start Date End Date Camille Avila MD [address] [place] [address] PCP - General 05/19/16 Nae Campos, geographic information scientistOil Truck Driver Transplant 07/07/23 documented as of this encounter
--- OUTSIDE RECORDS SUMMARY | 2025-02-25 08:32 | XMS_ITS | Encounter Summary ---
Author Organization [facility] Address [address] [place] [address] Phone Care Team Providers Care Wire Mesh Gate Assembler Name Role Phone Camille Avila MD Primary Care Provider [phone] Nae Campos RN Unavailable Unavailable Encounter Details Date Type Department Care Team (Late Contact Info) Description 12/05/2023 Lab Requisition [facility] [address] [place] [phone] [place] [address] [facility] Department of Medicine-Gastroen terology [place], [place] [id number] Encounter for general adult medical examination without abnormal findings Social History Tobacco Use Types Packs/Day Years [...] Description 04/03/2025 10:00 AM EDT Office Visit [facility] [address] [facility] [address] [place] [phone] [place] [address] Department of Medicine-[place] [address] documented as of this encounter Procedures Procedure Name Priority Date/Time Associated Diagnosis Comments TACROLIMUS Routine 12/04/2023 12:40 PM EST Encounter for general adult medical examination without abnormal findings documented in this encounter Results * (ABNORMAL) Tacrolimus (12/04/2023 12:40 PM EST) Tacrolimus 17.1(H) <=15.0 ng/mL LAB CHEMISTRY METHOD 12/05/2023 9:05 AM EST [facility] Blood Venous blood specimen / Unknown 12/04/2023 12:40 PM EST 12/05/2023 5:56 AM EST Narrative [facility] - 12/05/2023 9:05 AM EST NOTE: Result was obtained using a chemiluminescent microparticle immunoassay (CMIA) on the Hel[employer] Marble Finisher i system. Optimal therapeutic ranges for immunosuppressant drugs depend upon an individual patient's current clinical state, type of organ transplant, time post-transplant, co-administration of other immunosuppressants, and other clinical factors. The results of this test should be correlated with additional clinical and laboratory data before changes in treatment regimens are made. us Sharan Ayoub MD LAB BLOOD ORDERABLES Final Re sult [facility] [address] [place] [address] documented in this encounter Visit Diagnoses Diagnosis Encounter for general adult medical examination without abnormal findings documented in this encounter Care Teams Wire Mesh Gate Assembler Relationship Specialty Start Date End Date Camille Avila MD [address] [place] [address] PCP - General 05/19/16 Nae Campos, motor transport inspectorConveyor Technician Transplant 07/07/23 documented as of this encounter
--- OUTSIDE RECORDS SUMMARY | 2025-02-25 08:33 | XMS_ITS | Encounter Summary ---
Author Organization [facility] Address [address] [place] [address] Phone Care Team Providers Care Visual Merchandiser Name Role Phone Camille Avila MD Primary Care Provider [phone] Nae Campos RN Unavailable Unavailable Encounter Details Date Type Department Care Team ([facility] Contact Info) Description 05/30/2016 Orders Only [facility] [address] [place] [address] Conversion, Onbase Social History Tobacco Use Types [...] EDT Office Visit [facility] [address] [facility] [address] [place] [phone] [place] [address] Department of Medicine-Gastroenter ology [place] [phone] Scheduled Orders Name Type Priority Associated Diagnoses Orde r Schedule OUTSIDE LAB SCAN Lab Ordered: 05/30/2016 documented as of this encounter Visit Diagnoses Not on filedocumented in this encounter Care Teams Visual Merchandiser Relationship Specialty Start Date End Date Camille Avila MD [address] [place] [address] PCP - General 05/19/16 Nae Campos, gleason gear generatorComponent Inspector Transplant 07/07/23 documented as of this encounter
--- OUTSIDE RECORDS SUMMARY | 2025-02-25 08:33 | XMS_ITS | Encounter Summary ---
Author Organization [facility] Address [address] [place] [address] Phone Care Team Providers Care Ammonia Technician Name Role Phone Camille Avila MD Primary Care Provider [phone] Nae Campos RN Unavailable Unavailable Encounter Details Date Type Department Care Team ([facility] Contact Info) Description 06/20/2016 Orders Only [facility] [address] [place] [address] Conversion, Onbase Social History Tobacco Use Types Packs/Day Years Used Date Smoking Tobacco: Never Assessed Sex and Gender Information Value Date Recorded Sex Assigned at Not on file Legal Sex Male 11:53 PM EST Gender Identity Not on file Sexual Orientation Not on file documented as of this encounter Plan of Treatment Upcoming Encounters Date Type Department Care Team ([facility] Contact Info) Description 04/03/2025 10:00 AM EDT Office [facility] [address] [facility] [address] [place] [phone] [place] [address] Department of Medicine-Gastroenter ology [place] [phone] Scheduled Orders Name Type Priority Associated Diagnoses Orde r Schedule OUTSIDE LAB SCAN Lab Ordered: 06/20/2016 documented as of this encounter Visit Diagnoses Not on filedocumented in this encounter Care Teams Ammonia Technician Relationship Specialty Start Date End Date Camille Avila MD [address] [place] [address] PCP - General 05/19/16 Nae Campos, technology resource teacherIndustrial Technology Education Teacher Transplant 07/07/23 documented as of this encounter
--- OUTSIDE RECORDS SUMMARY | 2025-02-25 08:33 | XMS_ITS | Encounter Summary ---
Author Organization [facility] Address [address] [place] [address] Phone Care Team Providers Care Sticker On Name Role Phone Camille Avila MD Primary Care Provider [phone] Nae Campos RN Unavailable Unavailable Encounter Details Date Type Department Care Team ([facility] Contact Info) Description 07/04/2016 Orders Only [facility] [address] [place] [address] Conversion, Onbase Social History Tobacco Use Types Packs/Day Years Used Date Smoking Tobacco: Never Assessed Sex and Gender Information Value Date Recorded Sex Assigned at Not on file Legal Sex Male 11:53 PM EST Gender Identity Not on file Sexual Orientation Not on file documented as of this encounter Plan of Treatment Upcoming Encounters Date Type Department Care Team ([facility] Contact Info) Description 04/03/2025 10:00 AM EDT Office Visit [facility] [address] [facility] [address] [place] [phone] [place] [address] Department of Medicine-Gastroenter ology [place] [phone] Scheduled Orders Name Type Priority Associated Diagnoses Orde r Schedule OUTSIDE LAB SCAN Lab Ordered: 07/04/2016 documented as of this encounter Visit Diagnoses Not on filedocumented in this encounter Care Teams Sticker On Relationship Specialty Start Date End Date Camille Avila MD [address] [place] [address] PCP - General 05/19/16 Nae Campos, rhitOutboard Motor Tester Transplant 07/07/23 documented as of this encounter
--- OUTSIDE RECORDS SUMMARY | 2025-02-25 08:33 | XMS_ITS | Encounter Summary ---
Author Organization [facility] Address [address] [place] [address] Phone Care Team Providers Care Hoist Worker Name Role Phone Camille Avila MD Primary Care Provider [phone] Nae Campos RN Unavailable Unavailable Encounter Details Date Type Department Care Team ([facility] Contact Info) Description 06/23/2016 Orders Only [facility] [address] [place] [address] Conversion, Onbase Social History Tobacco Use Types [...] Care Team ([facility] Contact Info) Description 04/03/2025 10:00 AM EDT Office Visit [facility] [address] [facility] [address] [place] [phone] [place] [address] Department of Medicine-Gastroenter ology [place] [phone] Scheduled Orders Name Type Priority Associated Diagnoses Orde r Schedule OUTSIDE LAB SCAN Lab Ordered: 06/23/2016 documented as of this encounter Visit Diagnoses Not on filedocumented in this encounter Care Teams Hoist Worker Relationship Specialty Start Date End Date Camille Avila MD [address] [place] [address] PCP - General 05/19/16 Nae Campos, market managerChute Puller Transplant 07/07/23 documented as of this encounter
--- OUTSIDE RECORDS SUMMARY | 2025-02-25 08:33 | XMS_ITS | Encounter Summary ---
Author Organization [facility] Address [address] [place] [address] Phone Care Team Providers Care Medical Equipment Sales Name Role Phone Camille Avila MD Primary Care Provider [phone] Nae Campos RN Unavailable Unavailable Encounter Details Date Type Department Care Team ([facility] Contact Info) Description 07/25/2016 Orders Only [facility] [address] [place] [address] Conversion, Onbase Social History Tobacco Use Types Packs/Day Years Used Date Smoking Tobacco: Never Assessed Sex and Gender Information Value Date Recorded Sex Assigned at Not on file Legal Sex Male 11:53 PM EST Gender Identity Not on file Sexual Orientation Not on file documented as of this encounter Plan of Treatment Upcoming Encounters Date Type Department Care Team ([facility] Contact Info) Description 04/03/2025 10:00 AM EDT Office Visit [facility] [address] [facility] [address] [place] [phone] [place] [address] Department of Medicine-Gastroenter ology [place] [phone] Scheduled Orders Name Type Priority Associated Diagnoses Orde r Schedule OUTSIDE LAB SCAN Lab Ordered: 07/25/2016 documented as of this encounter Visit Diagnoses Not on filedocumented in this encounter Care Teams Medical Equipment Sales Relationship Specialty Start Date End Date Camille Avila MD [address] [place] [address] PCP - General 05/19/16 Nae Campos, brim blockerOrthopaedic Physician Assistant Transplant 07/07/23 documented as of this encounter
--- OUTSIDE RECORDS SUMMARY | 2025-02-25 08:33 | XMS_ITS | Encounter Summary ---
Author Organization [facility] Address [address] [place] [address] Phone Care Team Providers Care Size Roller Operator Name Role Phone Camille Avila MD Primary Care Provider [phone] Nae Campos RN Unavailable Unavailable Encounter Details Date Type Department Care Team ([facility] Contact Info) Description 07/07/2016 Orders Only [facility] [address] [place] [address] Conversion, Onbase Social History Tobacco Use Types Packs/Day Years Used Date Smoking Tobacco: Never Assessed Sex and Gender Information Value Date Recorded Sex Assigned at Not on file Legal Sex Male 11:53 PM EST Gender Identity Not on file Sexual Orientation Not on file documented as of this encounter Plan of Treatment Upcoming Encounters Date Type Department Care Team ([facility] Contact Info) Description 04/03/2025 10:00 AM EDT Office Visit [facility] [address] [facility] [address] [place] [phone] [place] [address] Department of Medicine-Gastroenter ology [place] [phone] Scheduled Orders Name Type Priority Associated Diagnoses Orde r Schedule OUTSIDE LAB SCAN Lab Ordered: 07/07/2016 documented as of this encounter Visit Diagnoses Not on filedocumented in this encounter Care Teams Size Roller Operator Relationship Specialty Start Date End Date Camille Avila MD [address] [place] [address] PCP - General 05/19/16 Nae Campos, director of quantitative researchHardwood Flooring Specialist Transplant 07/07/23 documented as of this encounter
--- OUTSIDE RECORDS SUMMARY | 2025-02-25 08:33 | XMS_ITS | Encounter Summary ---
Author Organization [facility] Address [address] [place] [address] Phone Care Team Providers Care Food Mixer Name Role Phone Camille Avila MD Primary Care Provider [phone] Nae Campos RN Unavailable Unavailable Encounter Details Date Type Department Care Team ([facility] Contact Info) Description 09/05/2017 Orders Only [facility] [address] [place] [address] Conversion, Onbase Social History Tobacco Use Types Packs/Day Years Used Date Smoking Tobacco: Never Assessed Sex and Gender Information Value Date Recorded Sex Assigned at Not on file Legal Sex Male 11:53 PM EST Gender Identity Not on file Sexual Orientation Not on file documented as of this encounter Plan of Treatment Upcoming Encounters Date Type Department Care Team ([facility] Contact Info) Description 04/03/2025 10:00 AM EDT Office Visit [facility] [address] [facility] [address] [place] [phone] [place] [address] Department of Medicine-Gastroenter ology [place] [phone] Scheduled Orders Name Type Priority Associated Diagnoses Orde r Schedule OUTSIDE LAB SCAN Lab Ordered: 09/05/2017 documented as of this encounter Visit Diagnoses Not on filedocumented in this encounter Care Teams Food Mixer Relationship Specialty Start Date End Date Camille Avila MD [address] [place] [address] PCP - General 05/19/16 Nae Campos, showroom salespersonManager Respiratory Care Transplant 07/07/23 documented as of this encounter
--- OUTSIDE RECORDS SUMMARY | 2025-02-25 08:33 | XMS_ITS | Encounter Summary ---
Author Organization [facility] Address [address] [place] [address] Phone Care Team Providers Care Payroll Supervisor Name Role Phone Camille Avila MD Primary Care Provider [phone] Nae Campos RN Unavailable Unavailable Encounter Details Date Type Department Care Team ([facility] Contact Info) Description 06/16/2016 Orders Only [facility] [address] [place] [address] Conversion, Onbase Social History Tobacco Use Types [...] AM EDT Office Visit [facility] [address] [facility] [address] [place] [phone] [place] [address] Department of Medicine-Gastroenter ology [place] [phone] Scheduled Orders Name Type Priority Associated Diagnoses Orde r Schedule OUTSIDE LAB SCAN Lab Ordered: 06/16/2016 documented as of this encounter Visit Diagnoses Not on filedocumented in this encounter Care Teams Payroll Supervisor Relationship Specialty Start Date End Date Camille Avila MD [address] [place] [address] PCP - General 05/19/16 Nae Campos, joinerJigger Artisan Transplant 07/07/23 documented as of this encounter
--- OUTSIDE RECORDS SUMMARY | 2025-02-25 08:33 | XMS_ITS | Encounter Summary ---
Author Organization [facility] Address [address] [place] [address] Phone Care Team Providers Care Maintenance Welder Name Role Phone Camille Avila MD Primary Care Provider [phone] Nae Campos RN Unavailable Unavailable Encounter Details Date Type Department Care Team ([facility] Contact Info) Description 07/18/2016 Orders Only [facility] [address] [place] [address] Conversion, Onbase Social History Tobacco Use Types Packs/Day Years Used Date Smoking Tobacco: Never Assessed Sex and Gender Information Value Date Recorded Sex Assigned at Not on file Legal Sex Male 11:53 PM EST Gender Identity Not on file Sexual Orientation Not on file documented as of this encounter Plan of Treatment Upcoming Encounters Date Type Department Care Team ([facility] Contact Info) Description 04/03/2025 10:00 AM EDT Office Visit [facility] [address] [facility] [address] [place] [phone] [place] [address] Department of Medicine-Gastroenter ology [place] [phone] Scheduled Orders Name Type Priority Associated Diagnoses Orde r Schedule OUTSIDE LAB SCAN Lab Ordered: 07/18/2016 documented as of this encounter Visit Diagnoses Not on filedocumented in this encounter Care Teams Maintenance Welder Relationship Specialty Start Date End Date Camille Avila MD [address] [place] [address] PCP - General 05/19/16 Nae Campos, hair machine operatorElectronic Masking System Operator Transplant 07/07/23 documented as of this encounter
--- OUTSIDE RECORDS SUMMARY | 2025-02-25 08:33 | XMS_ITS | Encounter Summary ---
Author Organization [facility] Address [address] [place] [address] Phone Care Team Providers Care Rn Imaging Name Role Phone Camille Avila MD Primary Care Provider [phone] Nae Campos RN Unavailable Unavailable Encounter Details Date Type Department Care Team ([facility] Contact Info) Description 06/28/2016 Orders Only [facility] [address] [place] [place] [address] Conversion, Onbase Social History Tobacco Use Types [...] Description 04/03/2025 10:00 AM EDT Office Visit [facility] [address] [facility] [address] [place] [phone] [place] [address] Department of Medicine-Gastroenter ology [place] [phone] Scheduled Orders Name Type Priority Associated Diagnoses Orde r Schedule OUTSIDE LAB SCAN Lab Ordered: 06/28/2016 documented as of this encounter Visit Diagnoses Not on filedocumented in this encounter Care Teams Rn Imaging Relationship Specialty Start Date End Date Camille Avila MD [address] [place] [address] PCP - General 05/19/16 Nae Campos, neurology specialistProduction Line Welder Transplant 07/07/23 documented as of this encounter
--- OUTSIDE RECORDS SUMMARY | 2025-02-25 08:33 | XMS_ITS | Encounter Summary ---
Author Organization [facility] Address [address] [place] [address] Phone Care Team Providers Care Tube Cleaning Operator Name Role Phone Camille Avila MD Primary Care Provider Nae Campos RN Unavailable Unavailable Encounter Details Date Type Department Care Team ([facility] Contact Info) Description 06/13/2016 Orders Only [facility] [address] [place] [address] Conversion, Onbase Social History Tobacco Use Types Packs/Day Years Used Date Smoking Tobacco: Never Assessed Sex and Gender Information Value Date Recorded Sex Assigned at Not on file Legal Sex Male 11:53 PM EST Gender Identity Not on file Sexual Orientation Not on file documented as of this encounter Plan of Treatment Upcoming Encounters Date Type Department Care Team ([facility] Contact Info) Description 04/03/2025 10:00 AM EDT Office Visit [facility] [address] [facility] [address] [place] [phone] [place] [address] Department of Medicine-Gastroenter ology [place] [phone] Scheduled Orders Name Type Priority Associated Diagnoses Orde r Schedule OUTSIDE LAB SCAN Lab Ordered: 06/13/2016 documented as of this encounter Visit Diagnoses Not on filedocumented in this encounter Care Teams Tube Cleaning Operator Relationship Specialty Start Date End Date Camille Avila MD [address] [place] [address] PCP - General 05/19/16 Nae Campos, game breeding farm managerAssistant Project Engineer Transplant 07/07/23 documented as of this encounter
--- OUTSIDE RECORDS SUMMARY | 2025-02-25 08:33 | XMS_ITS | Encounter Summary ---
Author Organization [facility] Address [address] [place] [address] Phone Care Team Providers Care Stock Layer Name Role Phone Camille Avila MD Primary Care Provider [phone] Nae Campos RN Unavailable Unavailable Encounter Details Date Type Department Care Team ([facility] Contact Info) Description 07/11/2016 Orders Only [facility] [address] [place] [address] Conversion, Onbase Social History Tobacco Use Types Packs/Day Years Used Date Smoking Tobacco: Never Assessed Sex and Gender Information Value Date Recorded Sex Assigned at Not on file Legal Sex Male 11:53 PM EST Gender Identity Not on file Sexual Orientation Not on file documented as of this encounter Plan of Treatment Upcoming Encounters Date Type Department Care Team ([facility] Contact Info) Description 04/03/2025 10:00 AM EDT Office Visit [facility] [address] [facility] [address] [place] [phone] [place] [address] Department of Medicine-Gastroenter ology [place] [phone] Scheduled Orders Name Type Priority Associated Diagnoses Orde r Schedule OUTSIDE LAB SCAN Lab Ordered: 07/11/2016 documented as of this encounter Visit Diagnoses Not on filedocumented in this encounter Care Teams Stock Layer Relationship Specialty Start Date End Date Camille Avila MD [address] [place] [address] PCP - General 05/19/16 Nae Campos, clergy memberDirector Of Income Tax Transplant 07/07/23 documented as of this encounter
--- OUTSIDE RECORDS SUMMARY | 2025-02-25 08:33 | XMS_ITS | Encounter Summary ---
Author Organization [facility] Address [address] [place] [address] Phone Care Team Providers Care Strategic Planning Consultant Name Role Phone Camille Avila MD Primary Care Provider [phone] Nae Campos RN Unavailable Unavailable Encounter Details Date Type Department Care Team ([facility] Contact Info) Description 04/24/2019 Orders Only [facility] [address] [place] [address] Conversion, Onbase Social History Tobacco Use Types Packs/Day Years Used Date Smoking Tobacco: Never Assessed Sex and Gender Information Value Date Recorded Sex Assigned at Not on file Legal Sex Male 11:53 PM EST Gender Identity Not on file Sexual Orientation Not on file documented as of this encounter Plan of Treatment Upcoming Encounters Date Type Department Care Team ([facility] Contact Info) Description 04/03/2025 10:00 AM EDT Office Visit [facility] [address] [facility] [address] [place] [phone] [place] [address] Department of Medicine-Gastroenter ology [place] [phone] Scheduled Orders Name Type Priority Associated Diagnoses Orde r Schedule OUTSIDE LAB SCAN Lab Ordered: 04/24/2019 documented as of this encounter Visit Diagnoses Not on filedocumented in this encounter Care Teams Strategic Planning Consultant Relationship Specialty Start Date End Date Camille Avila MD [address] [place] [address] PCP - General 05/19/16 Nae Campos, security operations engineerOyster Planter Transplant 07/07/23 documented as of this encounter
--- OUTSIDE RECORDS SUMMARY | 2025-02-25 08:33 | XMS_ITS | Encounter Summary ---
Author Organization [facility] Address [address] [place] [address] Phone Care Team Providers Care Music Critic Name Role Phone Camille Avila MD Primary Care Provider [phone] Nae Campos RN Unavailable Unavailable Encounter Details Date Type Department [facility] Description 06/30/2016 Orders Only [facility] [address] [place] [address] Conversion, Onbase Social History Tobacco Use Types Packs/Day Years Used Date Smoking Tobacco: Never Assessed Sex and Gender Information Value Date Recorded Sex Assigned at Not on file Legal Sex Male 11:53 PM EST Gender Identity Not on file Sexual Orientation Not on file documented as of this encounter Plan of Treatment Upcoming Encounters Date Type Department Care Team [facility] Contact [facility] Description 04/03/2025 10:00 AM EDT Office Visit [facility] [address] [facility] [address] [place] [phone] [place] [address] Department of Medicine-Gastroenter ology [place] [phone] Scheduled Orders Name Type Priority Associated Diagnoses Orde r Schedule OUTSIDE LAB SCAN Lab Ordered: 06/30/2016 documented as of this encounter Visit Diagnoses Not on filedocumented in this encounter Care Teams Music Critic Relationship Specialty Start Date End Date Camille Avila MD [address] [place] [address] PCP - General 05/19/16 Nae Campos, career services representativeHuman Resources Benefits Coordinator Transplant 07/07/23 documented as of this encounter
--- OUTSIDE RECORDS SUMMARY | 2025-02-25 08:34 | XMS_ITS | Clinical Summary ---
Author Organization [facility] Address [address] [place] [phone] Care Team Providers Care Construction Craft Laborer Name Role Phone Camille Avila MD Primary Care Provider [phone] Allergies Active Allergy Reactions Criticality Noted Date Comments Red Dye Angioedema (swelling) High 04/08/2017 Medications amLODIPine 5 MG Tab take 5 mg by mouth daily.. Active aspirin 81 MG Chew Tab take 81 mg by mouth daily.. Active magnesium oxide 400 MG Tab take 400 mg by mouth 2 times daily.. Active omeprazole [address] take 40 mg by mouth daily.. Active predniSONE 5 MG Tab take 5 mg by mouth daily.. Active trimethoprim-pool lfamethoxazole (BACTRIM) 80-400 MG Tab take 1 tablet by mouth daily.. Active tacrolimus (generic) 1 MG Cap take 1.5 mg by mouth 2 times daily.. Active valGANciclovir 450 MG Tab take 450 mg by mouth daily.. Active insulin glargine 100 UNIT/ML vial 8 Units by Subcutaneous route at bedtime.. Active insulin lispro 100 UNIT/ML Solution by Subcutaneous route.. Active diphenhydrAMINE 25 MG Tab take 1 tablet by mouth every 6 hours as needed for Allergic Reaction.. 15 tablet 7 Active Social History Tobacco Use Types Packs/Day Years Used Date Smoking Tobacco: Never Smokeless Tobacco: Never Alcohol Use Standard Drinks/Week Comments No 0 (1 standard drink = 0.6 oz pur e alcohol) Sex and Gender Information Value Date Recorded Sex Assigned at Not on file Legal Sex Male 4:43 PM EDT Gender Identity Male 04/08/2017 4:44 PM EDT Sexual Orientation Not on file Last Filed Vital Signs Vital Sign Reading Time Taken Comments Blood Pressure 146/90 04/08/2017 4:44 PM EDT Pulse 100 04/08/2017 4:44 PM EDT Temperature 36.9 C (98.4 F) 04/08/2017 4:44 PM EDT Respiratory Rate 18 04/08/2017 4:44 PM EDT Oxygen Saturation - - Inhaled Oxygen Concentration - - Weight - - Height 177.8 cm (5' 10 ) 04/08/2017 4:49 PM EDT Body Mass Index - - Plan of Treatment Health Maintenance Due Date Last Done Comments HEPATITIS C VIRUS SCREENING 1993 TETANUS 1993 HIV SCREENING DISCUSSION 2008 HEP B VACCINE (1 of 3 - 19+ 3-dose series) 2012 TDAP (ADULT) 2012 COVID-19 VACCINE ( - 2023-2 5 season) 2024 INFLUENZA VACCINE (Season Ended) 2025 HPV VACCINE Aged Out No longer eligi ble based on patient's age to complete this topic PNEUMOCOCCAL VACCINE SERIES Aged Out No longer eligible based on patient's age to complete this topic Insurance [employer] [place] [id number] Care Teams Construction Craft Laborer Relationship Specialty Start Date End Date Camille Avila MD PCP - General Family Medicine 04/08/17
--- OUTSIDE RECORDS SUMMARY | 2025-02-25 08:34 | XMS_ITS | Encounter Summary ---
Author Organization [facility] Address [address] [place] [address] Phone Care Team Providers Care Rfid Technician Name Role Phone Camille Avila MD Primary Care Provider [phone] Nae Campos RN Unavailable Unavailable Encounter Details Date Type Department Care Team ([facility] Contact Info) Description 05/31/2016 Orders Only [facility] [address] [place] [address] Conversion, Onbase Social History Tobacco Use Types [...] Description 04/03/2025 10:00 AM EDT Office Visit [facility] [address] [facility] [address] [place] [phone] [place] [address] Department of Medicine-Gastroenter ology [place] [phone] Scheduled Orders Name Type Priority Associated Diagnoses Orde r Schedule OUTSIDE LAB SCAN Lab Ordered: 05/31/2016 documented as of this encounter Visit Diagnoses Not on filedocumented in this encounter Care Teams Rfid Technician Relationship Specialty Start Date End Date Camille Avila MD [address] [place] [address] PCP - General 05/19/16 Nae Campos, plasma specialistMulti Mission Helicopter Aircrewman Transplant 07/07/23 documented as of this encounter
--- OUTSIDE RECORDS SUMMARY | 2025-02-25 08:34 | XMS_ITS | Encounter Summary ---
Author Organization [facility] Address [address] [place] [address] Phone Care Team Providers Care Manager Cosmetics Name Role Phone Camille Avila MD Primary Care Provider [phone] Nae Campos RN Unavailable Unavailable Encounter Details Date Type Department Care Team ([facility] Contact Info) Description 05/31/2016 Orders Only [facility] [address] [place] [address] Conversion, Onbase Social History Tobacco Use Types Packs/Day Years Used Date Smoking Tobacco: Never Assessed Sex and Gender Information Value Date Recorded Sex Assigned at Not on file Legal Sex Male 11:53 PM EST Gender Identity Not on file Sexual Orientation Not on file documented as of this encounter Plan of Treatment Upcoming Encounters Date Type Department Care Team ([facility] Contact Info) Description 04/03/2025 10:00 AM EDT Office Visit [facility] [address] [facility] [address] [place] [phone] [place] [address] Department of Medicine-Gastroenter ology [place] [phone] Scheduled Orders Name Type Priority Associated Diagnoses Orde r Schedule OUTSIDE LAB SCAN Lab Ordered: 05/31/2016 documented as of this encounter Visit Diagnoses Not on filedocumented in this encounter Care Teams Manager Cosmetics Relationship Specialty Start Date End Date Camille Avila MD [address] [place] [address] PCP - General 05/19/16 Nae Campos, floor scraperHandling Tech Transplant 07/07/23 documented as of this encounter
--- OUTSIDE RECORDS SUMMARY | 2025-02-25 08:34 | XMS_ITS | Clinical Summary ---
Author Organization [facility] Address [address] [place] [address] Care Team Providers Care Envelope Folder Name Role Phone Unallocated, Noms Provider Primary Care Provi wale Allergies Active Allergy Reactions Criticality Noted Date Comments Amoxicillin 10/30/2023 Clavulanic Acid 10/30/2023 Penicillin G Unknown 11/16/2023 Red Dye #40 (Allura Red) Angioedema High 04/08/2017 Other Reaction(s): Swelling of Lip/Tongue/Throat Medications amLODIPine (Norvasc) 5 MG tablet Take 1 mg by mouth in the morning. Active aspirin 81 MG EC tablet Take 81 mg by mouth in the morning. Active magnesium oxide (Mag-Ox) 400 (240 Mg) MG tablet Take 400 mg by mouth in the morning and 400 mg before bedtime. 11/04/19 24 Active Multiple Vitamin (Daily Vitamin) tablet Take 1 tablet by mouth in the morning. Active omeprazole (PriLOSEC) [address] capsule Take 20 mg by mouth in the morning. Take before meals. Active tacrolimus (Prograf) 1 MG capsule Take 1 mg by mouth in the morning and 1 mg before bedtime. Active mycophenolate (Cellcept) 250 MG capsule Take 250 mg by mouth every 12 (twelve) hours Active ondansetron ODT (Zofran-ODT) 4 MG disintegrating tablet DISSOLVE 1 TABLET ON THE TONGUE EVERY 6 HOURS NEEDED FOR NAUSEA OR VOMITING 05/21/20 23 Active pantoprazole (ProtoNix) 40 MG EC tablet Take 40 mg by mouth in the morning. Take before meals. 03/04/20 24 Active polyethylene glycol, PEG, 3350 (Miralax) 17 g packet MIX 17 GRAMS WITH 8 OUNCES OF LIQUID AND DRINK ONCE DAILY NEEDED 01/24/20 24 Active spironolactone (Aldactone) 50 MG tablet Take 50 mg by mouth Daily Active insulin aspart (NovoLOG) 100 UNIT/ML injectionIndicatio ns:Type 1 diabetes mellitus without complication Per pump (max daily 60 units) 60 mL 3 04/08/20 24 Active valACYclovir (Valtrex) 1 g tabletIndications: Herpes zoster without complication Take 1 tablet, by mouth, three times a day x 10 days 30 tablet 05/09/20 24 Active HYDROcodone-acetam inophen ([place]) 5-325 MG tablet TAKE 1 TABLET BY MOUTH EVERY 4 TO 6 HOURS NEEDED FOR PAIN 05/09/20 24 Active Insulin Infusion Pump (T:slim X2 Control-IQ Pump) device 1 Device See administration instructions Basal: 12A 1.1, ICR: 12A 7, ISF: 75 1 each 05/13/20 24 Active Insulin Lispro 100 UNIT/ML solutionIndication s:Type 1 diabetes mellitus without complication Inject 1 Dose under the skin See administration instructions Per pump max 60 units a day 60 mL 3 06/10/20 24 025 Active glucose blood (Contour Next Test) test stripIndications:T ype 1 diabetes mellitus without complication Testing 5 times a day 500 strip 3 06/10/20 24 Active tamsulosin (Flomax) 0.4 MG 24 hr capsule Take 0.4 mg by mouth Daily 10/04/19 25 Active predniSONE (Deltasone) 5 MG tablet 12/22/19 25 Active venlafaxine XR (Effexor XR) 75 MG 24 hr capsule Take 75 mg by mouth Daily 11/28/19 25 Active Active Problems Problem Noted Date Diagnosed Date 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 Encouraged to check blood glucose throughout the day with some fasting and some PP readings. They are to bring their glucose meter/cgm in to all appointments. All of the patients questions, treatment options, and current care plan and goals were discussed. A copy of this along with pertinent instructions were given to the patient at the end of the appointment. The patient voices understanding of all of this and is to call in between appointments if they have any problems or questions. Sidney Tang blood sugars are worsening. , The patient is wearing their cgm on a daily basis and making decisions in regards to adjusting insulin daily as well for at least the last 60 days , Instructions given today include: Pump instructions. Increase basal rates significantly and tighten carb ratio to improve control. Assessment & Plan (04/08/2024 8:14 AM EDT): During the appointment today all pertinent labs, imaging, health maintenance, and glucose readings were reviewed. Encouraged to check blood glucose throughout the day with some fasting and some PP readings. They are to bring their glucose meter/cgm in to all appointments. All of the patients questions, treatment options, and current care plan and goals were discussed. A copy of this along with pertinent instructions were given to the patient at the end of the appointment. The patient voices understanding of all of this and is to call in between appointments if they have any problems or questions. Sidney Tang control is stable overall. , The patient is wearing their cgm on a daily basis and making decisions in regards to adjusting insulin daily as well for at least the last 60 days , Instructed on the importance of taking insulin before eating. If it has been more than 30-45 min since eating they should not give the meal dose but should just give a correction insulin dose. , Instructions given today include: Hypoglycemia management, Pump instructions, and Dietary education. Increase basal rate at 4A and decrease at 10A. Tighten carb ratio. Assessment & Plan (02/09/2024 12:52 PM EDT): During the appointment today all pertinent labs, imaging, health maintenance, and glucose readings were reviewed. Encouraged to check blood glucose throughout the day with some fasting and some PP readings. They are to bring their glucose meter/cgm in to all appointments. All of the patients questions, treatment options, and current care plan and goals were discussed. A copy of this along with pertinent instructions were given to the patient at the end of the appointment. The patient voices understanding of all of this and is to call in between appointments if they have any problems or questions. Sidney Tang is struggling to gain control of their diabetes. I am very concerned for diabetes related complications. , Instructed on the importance of taking insulin before eating. If it has been more than 30-45 min since eating they should not give the meal dose but should just give a correction insulin dose. , Instructions given today include: Hypoglycemia management and Insulin instructions. Will put him on injections for now until we can get him a new insulin pump. Gave him a sample of tresiba and novolog. Will start with 15 units daily on tresiba and 1:10 carb ratio with novolog. Increase NPH to help with steroid induced hyperglycemia. He is decreasing his dose of steroid tomorrow. Will need to probably back off on the NPH dose as we are decreasing his steroid dose. He is to call if numbers are not improving with this. Gave him samples of vicente 3 and instructed on the use of these with his phone to help improve control right now Assessment & Plan (11/17/2023 12:48 PM EST): During the appointment today all pertinent labs, imaging, health maintenance, and glucose readings were reviewed. Encouraged to check blood glucose throughout the day with some fasting and some PP readings. They are to bring their glucose meter/cgm in to all appointments. All of the patients questions, treatment options, and current care plan and goals were discussed. A copy of this along with pertinent instructions were given to the patient at the end of the appointment. The patient voices understanding of all of this and is to call in between appointments if they have any problems or questions. Sidney Tang is struggling to gain control of their diabetes. I am very concerned for diabetes related complications. , Discussed importance of checking blood glucose regularly and bringing them in to their appointment in order for me to better adjust their medications. , Instructed on the importance of taking insulin before eating. If it has been more than 30-45 min since eating they should not give the meal dose but should just give a correction insulin dose. , Instructions given today include: Pump instructions. Discussed that I am unable to help him with his diabetes since he is not checking his bg. No changes to pump settings as I have no guide to go off of. Discussed importance of safety while on the pump and checking bg to make sure he is getting insulin and decrease the risk for DKA if tubing in pump is kinked. Will try and get him a cgm. He is to look into his warranty on his pump and may consider getting on a t:slim or omnipod pump and using the partial artificial pancreas. Hyperthyroidism 05/05/2016 Liver replaced by transplant 04/08/2016 Overview (11/16/2023): Last Assessment & Plan: The patient will decrease tacrolimus to 1 bid Labs will continue to be ordered every 6 months We recommended annual dermatological examination We will see the patient in follow up in 6 months Encounters Date Type Department Care Team Description 12/31/2024 3:35 PM EDT Office Visit [facility] [address] [place] [address] Fatou Nathan MD Common wart (Primary Dx); Other specified erythematous conditions 12/31/2024 Bamboo flowsheet [facility] [address] [place] [address] Fatou Nathan MD 12/31/2024 Travel 12/03/2024 3:50 PM EST Office Visit [facility] [address] [place] [address] Fatou Nathan MD Common wart (Primary Dx); Other specified erythematous conditions 12/03/2024 Bamboo flowsheet [facility] [address] [place] [address] Fatou Nathan MD 12/03/2024 Travel from Last 3 Months Immunizations Immunization Administration Dates Next Due Hep A / Hep B 03/16/2010 Hep A, Adult 03/16/2010 Hep B, Adolescent or Pediatric 03/23/2010 Influenza, Unspecified 08/15/2016 Influenza, seasonal, injectable, preservative fr ee 08/15/2016 Tdap 03/16/2010 Family History Medical History Relation Name Comments Hypertension Father Arthritis Mother Fibromyalgia Mother Hypertension Mother Relation Name Status Comments Father Alive Mother Alive Social History Tobacco Use Types Packs/Day Years Used Date Smoking Tobacco: Never Smokeless Tobacco: Never Tobacco Cessation:Counseling Given: Not Answered Alcohol Use Standard Drinks/Week Comments Not Currently 0 (1 standard drink = 0.6 oz pur e alcohol) AUDIT-C Answer Date Recorded Q1: How often do you have a drink containing alcohol? Never 11/16/2023 Q2: How many drinks containi ng alcohol do you have on a typical day when you are drinking? Patient does not drink Q3: How often do you have si x or more drinks on one occasion? Never 11/16/2023 PHQ-2 Answer Date Recorded Patient Health Questionnaire-2 Score 0 11/16/2023 Sex and Gender Information Value Date Recorded Sex Assigned at Not on file Legal Sex Male 11:33 PM EDT Gender Identity Not on file Sexual Orientation Not on file Last Filed Vital Signs Vital Sign Reading Time Taken Comments Blood Pressure 122/74 05/13/2024 3:46 PM EDT Pulse 89 05/13/2024 3:46 PM EDT Temperature 35.7 C (96.3 F) 05/13/2024 3:46 PM EDT Respiratory Rate - - Oxygen Saturation 97% 05/13/2024 3:46 PM EDT Inhaled Oxygen Concentration - - Weight 55 kg (121 lb 3.2 oz) 05/13/2024 3:46 PM EDT Height 177.2 cm (5' 9.75 ) 05/13/2024 3:46 PM ED T Body Mass Index 17.52 05/13/2024 3:46 PM EDT Plan of Treatment Health Maintenance Due Date Last Done Comments Diabetes: Retinopathy Screening 2003 Diabetes: Urine Protein Screening 2012 Diabetes: Hemoglobin A1C 07/03/2024 024, 01/19/2024, 01/19/2024, Additional history exists Influenza Vaccine (Season Ended) 2025 08/15/20 16, 08/15/2016 Procedures Procedure Name Priority Date/Time Associated Diagnosis Comments CRYOTHERAPY SKIN LESION Routine 12/31/2024 4:02 PM EDT Common wart CRYOTHERAPY SKIN LESION Routine 12/03/2024 4:06 PM EST Common wart POCT GLYCOSYLATED HEMOGLOBIN (HGB A1C) Routine 04/02/2024 3:57 PM EDT Type 1 diabetes mellitus without complication ([facility]) from Last 3 Months or Most Recently Relevant to Health Maintenance Results * Cryotherapy, skin lesion (12/31/2024 4:02 PM EDT) Fatou Nathan MD DERM PROCEDURE ORDERABLES Fin al Result * Cryotherapy, skin lesion (12/03/2024 4:06 PM EST) Fatou Nathan MD DERM PROCEDURE ORDERABLES Fin al Result * (ABNORMAL) POCT glycosylated hemoglobin (Hb A1C) docked device (04/02/2024 3:57 PM EDT) Hemoglobin A1C 8.1 Blood Venous blood specimen / Unknown 04/02/2024 3:57 PM EDT Ember Treadwell DO POINT OF CARE TEST ENTER/E DIT ORDERABLES Final Result from Last 3 Months or Most Recently Relevant to Health Maintenance Insurance [employer] Care Teams Envelope Folder Relationship Specialty Start Date End Date Unallocated, Noms Provider, [address] [place], [place] [id number] PCP - General Family Medicine 04/08/24
--- NOTE | 2025-02-25 08:41 | ED.GENADUL1 ---
HPI HPI - General Adult General Chief complaint: Upper Respiratory Infection Stated complaint: L EAR PAIN, HEAD CONGESTION, COUGHINH, BODY ACHES Time Seen by Provider: 02/25/25 08:33 Source: patient Mode of arrival: walk-in History of Present Illness HPI narrative: 29-year-old male presents to the emergency department for chief complaint of left ear pain. He said for the last day or 2. No drainage or injury. He has had some congestion but does not complain of right ear pain. He has a remote history of liver transplant. Related Data Home Medications ?Medication ?Instructions ?Recorded ?Confirmed amlodipine 5 mg tablet 5 mg PO DAILY 05/21/23 02/25/25 insulin lispro 100 unit/mL 1 sliding scale dose continuous 05/21/23 02/25/25 subcutaneous solution subcutaneous infusion PRN insulin pump magnesium oxide 400 mg (241.3 mg 400 mg PO BID 05/21/23 02/25/25 magnesium) tablet mycophenolate mofetil 250 mg 250 mg PO Q12H 05/21/23 02/25/25 capsule tacrolimus 1 mg capsule, 1 mg PO Q12H 05/21/23 02/25/25 immediate-release prednisone 10 mg tablet 20 mg PO QDAY 07/14/24 02/25/25 prednisone 5 mg tablet mg 02/25/25 Previous Rx's ?Medication ?Instructions ?Recorded ondansetron 4 mg disintegrating 4 mg PO Q8H PRN nausea and 10/04/24 tablet vomiting 4 days #10 tabs ibuprofen 800 mg tablet 800 mg PO Q8H PRN pain #20 tabs 02/25/25 loratadine 5 mg-pseudoephedrine ER 1 tab PO Q12H PRN nasal congestion 02/25/25 120 mg tablet,extended #20 tabs release,12hr (Claritin-D 12 Hour) sulfamethoxazole 800 1 tab PO BID 10 days #20 tabs 02/25/25 mg-trimethoprim 160 mg tablet (Bactrim DS) Allergies Allergy/AdvReac Type Severity Reaction Status Date / Time amoxicillin (From Amoxil) Allergy Rash Verified 02/25/25 08:33 red (food color) AdvReac Intermediate Swelling Verified 02/25/25 08:28 of Lip/Tongue/Throat Opioid HPI Opioid Management Most Recent Opioid Data: Last Pain Scale 9 10/04/24, 15:13 Last ORT Total Score 1 07/15/24, 00:05 Last ORT Risk Category Low Risk 07/15/24, 00:05 Review of Systems ROS Narrative A ten point review of systems is negative except as noted above. PFSH PFSH Medical History (Updated 02/25/25 @ 08:40 by Phil Agudelo MD) Hyperglycemia ?R73.9 - Hyperglycemia, unspecified (ICD-10) Hyperglycemia due to type 1 diabetes mellitus ?E10.65 - Type 1 diabetes mellitus with hyperglycemia (ICD-10) Vomiting ?R11.10 - Vomiting, unspecified (ICD-10) Hypertension ?I10 - Essential (primary) hypertension (ICD-10) Diabetes ?E11.9 - Type 2 diabetes mellitus without complications (ICD-10) Surgical History (Updated 05/08/24 @ 20:51 by Holli Amato) Liver transplant recipient ?Z94.4 - Liver transplant status (ICD-10) Family History (Updated 07/15/24 @ 00:09 by Katt Rodriguez) Other Family history of COPD (chronic obstructive pulmonary disease) Family history of diabetes mellitus Family history of hypertension Family history of myocardial infarction Family history of stroke Social History (Updated 07/15/24 @ 00:09 by Katt Rodriguez) Within the past year, how often did you have a drink containing alcohol: never Within the past year, how often did you have six or more drinks on one occasion: never Score interpretation: A score less than 4 is consistent with normal alcohol consumption. Smoking status: Never smoker Non-prescribed substance use: denies use Highest level of school completed/degree received: high school graduate In a typical week, how many times do you talk on the telephone with family, friends, or neighbors: 3 or more times per week How often do you get together with friends or relatives: 3 or more times per week Little interest or pleasure in doing things: not at all Feeling down, depressed, or hopeless: not at all Feel stressed/tense/nervous/anxious/difficulty sleeping: not at all Do you think of yourself as: straight/heterosexual Gender Identity: male Exam Narrative Exam Narrative: Nurses note and vital signs reviewed and patient is not hypoxic. General: The patient appears in no apparent distress. Skin: Warm, dry, no pallor noted. There is no rash noted. Head: Normocephalic, atraumatic Eye: Normal conjunctiva, no drainage Ears, Nose, Mouth, and Throat: oral mucosa is moist. Nares patent. Right TM is obscured by cerumen. The left external canal appears normal and has no cerumen but the left TM is erythematous and has a distorted light reflex. Cardiovascular: Regular Rate and Rhythm Respiratory: Patient is in no distress, no accessory muscle use, lungs are clear to auscultation, no wheezing, rales or rhonchi Back: non-tender GI: Soft and nontender Musculoskeletal: The patient has no evidence of calf tenderness, no pitting edema, symmetrical pulses noted bilaterally Neurological: A&O x4, normal speech Psychiatric: Cooperative Constitutional Vital Signs, click to edit/add: Last Vital Signs Temp 98.4 F 02/25/25 08:28 Pulse 100 H 02/25/25 08:28 Resp 18 02/25/25 08:28 BP 137/66 02/25/25 08:28 Pulse Ox 97 02/25/25 08:28 O2 Del Method Room Air 02/25/25 08:28 Course Vital Signs Vital signs: Vital Signs Temperature 98.4 F 02/25/25 08:28 Pulse Rate 100 H 02/25/25 08:28 Respiratory Rate 18 02/25/25 08:28 Blood Pressure 137/66 02/25/25 08:28 Pulse Oximetry 97 02/25/25 08:28 Oxygen Delivery Method Room Air 02/25/25 08:28 Temperature 98.4 F 02/25/25 08:28 Pulse Rate 100 H 02/25/25 08:28 Respiratory Rate 18 02/25/25 08:28 Blood Pressure 137/66 02/25/25 08:28 Pulse Oximetry 97 02/25/25 08:28 Oxygen Delivery Method Room Air 02/25/25 08:28 Medical Decision Making MDM Narrative Medical decision making narrative: My clinical impression is that he has otitis media. Treatment diagnosis and follow-up were discussed with the patient. Differential Diagnosis Differential Diagnosis: Otitis media, otitis externa Discharge Plan Discharge Chief Complaint: Upper Respiratory Infection Clinical Impression: Acute left otitis media Patient Disposition: Home, Self-Care Time of Disposition Decision: 08:40 Condition: Good Mode of Transportation: Private Vehicle Prescriptions / Home Meds: New sulfamethoxazole-trimethoprim [Bactrim DS] 800-160 mg tablet 1 tab PO BID 10 Days Qty: 20 0RF ibuprofen 800 mg tablet 800 mg PO Q8H PRN (Reason: pain) Qty: 20 0RF Claritin-D 12 Hour 5-120 mg tablet extended release 12 hr 1 tab PO Q12H PRN (Reason: nasal congestion) Qty: 20 0RF No Action prednisone 10 mg tablet 20 mg PO QDAY ondansetron 4 mg tablet,disintegrating 4 mg PO Q8H PRN (Reason: nausea and vomiting) 4 Days Qty: 10 0RF amlodipine 5 mg tablet 5 mg PO DAILY magnesium oxide 400 mg (241.3 mg magnesium) tablet 400 mg PO BID mycophenolate mofetil 250 mg capsule 250 mg PO Q12H tacrolimus 1 mg capsule 1 mg PO Q12H insulin lispro 100 unit/mL solution 1 sliding scale dose continuous subcutaneous infusion PRN Rx Instructions: Insulin pump prednisone 5 mg tablet Print Language: [place] Instructions: Ear Infection (ED) Referrals: Camille Avila MD [Primary Care Provider, Family Practice] - 1 week
== END 2025-02-25 08:54 | disposition home or self-care (01) ==
PROVIDERS: Emergency Provider Emergency Medicine; PCP Family Medicine
DX: H66.92 Otitis media, unspecified, left ear (principal); Z94.4 Liver transplant status
CPT/HCPCS: 99283

== ENCOUNTER 2025-06-23 12:34 | Emergency (ER) | payer OTHER, SELFPAY ==
[2025-06-23 12:50] VITALS: BP 135/93; PULSE 90; TEMP 36.8; O2SAT 99; BMI 16.4
--- OUTSIDE RECORDS SUMMARY | 2025-06-23 12:53 | XMS_ITS | CCD ---
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 Name Role Phone Harmeet Cochran Unavailable Unavailable Sharan Ayoub Unavailable Unavailable Jenni Euceda Unavailable Unavailable Hiren Valdez Unavailable Unavailable Coby Sosa Unavailable Unavailable Jose Roberto Shields Unavailable Unavailable Maury Norris Unavailable Unavailable Jia Burgos Unavailable Unavail able Coby Sosa Primary Care Provider Kennedy Barroso Attending Provider [phone] Jaiden Morley Attending Provider Yaneli Edwards Unavailable Unavailable Harmeet Cochran MD Unavailable Unavailable Sharan Ayoub MD Unavailable Unavailable Jenni Delcid MD Unavailable Unavailable Yaneli Edwards MD Unavailable Unavailable Hiren Valdez MD Unavailable Unavailable Coby Sosa Unavailable Unavailable Jose Roberto Shields Unavailable Unavailable Maury Norris MD Unavailable Unavailable Jia Novak MD Unavailable Unavail able Coby Sosa Unavailable Unavailable Unavailable MD Coby Sosa Primary Care Provider [phone] MD Sharan Ayoub Attending Provider MD Coby Sosa Primary Care Provider [phone] MD Sharan Ayoub Attending Provider DR COBY SOSA Primary Care Unavailable DR BAO GOMES V Consulting Unavailable LORA AGUDELO Admitting Unavailable LORA AGUDELO Attending Unavailable LORA AGUDELO Consulting Unavailable DR COBY SOSA Primary Care Unavailable LORA AGUDELO Admitting Unavailable LORA AGUDELO Consulting Unavailable LORA AGUDELO Attending Unavailable MD Coby Sosa Primary Care [...] Referring Provider MD Leighton Reilly Other Provider Coby Sosa MD Primary Care Provider Andres RN, Nae Unavailable Unavailable Austin CHOPRA, Coby Arreola Primary Care Provider Unavailable MD Coby Sosa Primary Care Provider MD Shaarn Ayoub Attending Provider DO Ember Tejeda Referring [...] Provider Coby Sosa MD Primary Care Provider Sharan Ayoub MD Attending Provider Unallocated MD, Noms Provider Primary Care Provi wale Unallocatadelita MD, Noms Provider Primary Care Provi wale Coby Sosa MD Primary Care Provider Sharan Ayoub MD Attending Provider COBY SOSA Primary Care Physician Neyda Hernandez. Attending Unavailable Neyda Hernandez Attending Unavailable Coby Sosa MD Primary Care Provider Sharan Ayoub MD Attending Provider PETZHANE LANDERS Attending Unavailable PETLEESA, ZHANE Urbano Attending Unavailable PETEMBER DE SANTIAGO Attending Unavailable PETEMBER DE SANTIAGO Attending Unavailable PETITTI, ZHANE A Attending Unavailable PETITTI, ZHANE A Attending Unavailable PETZNICK, EMBER Koenig Attending Unavailable PETLEESA, ZHANE A Attending Unavailable Andres VICTORIA, Nae Unavailable Unavailable Coby Sosa MD Primary Care Provider Sharan Ayoub MD Attending Provider Coby Sosa MD Primary Care Provider Sharan Ayoub MD Attending Provider Coby Sosa MD Primary Care Provider Sharan Ayoub MD Attending Provider Dipti Haji CMA Attending Provider Unavaila Coby Connelly MD Attending Provider Coby Sosa MD Primary Care Provider Sharan Ayoub MD Attending Provider SOSA, COBY E Primary Care Unavailable SOSA, COBY E Primary Care Unavailable GHOLAM, SHARAN M Attending Unavailable SOSA, COBY E Primary Care Unavailable GHOLAM, SHARAN M Attending Unavailable SOSA, COBY E Primary Care Unavailable GHOLAM, SHARAN M Referring Unavailable SOSA, COBY E Primary Care Unavailable SOSA, COBY E Primary Care Unavailable GHOLAM, SHARAN M Attending Unavailable SOSA, COBY E Primary Care Unavailable Coby Sosa MD Primary Care Provider Sharan Ayoub MD Attending Provider [phone] Coby Sosa MD Attending Provider [phone] Gholam, Sharan Admitting Unavailable Sosa, Coby E [...] Care Unavailable Gholam, Sharan Attending Unavailable Sosa, Coby E Admitting Unavailable Sosa, Coby E Attending Unavailable Sosa, Coby E Primary Care Unavailable Gholam, Sharan Attending Unavailable Gholam, Sharan Admitting Unavailable Sosa, Coby E Primary Care Unavailable Gholam, Sharan Attending Unavailable Gholam, Sharan Admitting Unavailable Sosa, Coby E Primary Care Unavailable Gholam, Sharan Attending Unavailable Gholam, Sharan Admitting Unavailable Gholam, Sharan Admitting Unavailable Sosa, Coby E Primary Care Unavailable Gholam, Sharan Attending Unavailable Gholam, Sharan Admitting Unavailable Sosa, Coby E Primary Care Unavailable Gholam, Sharan Attending Unavailable Unavailable Unavailable Unavailable Allergies Allergy Classification Reported Allergen(s) Allergy Type Date of Onset Reaction(s) Facility Clavulanate (2 sources) Clavulanate Drug Allergy 4 [facility] Contrast Media (2 sources) Contrast media Substance Allergy 4 Swelling of Lip/Tongue/Thro at, anaphylaxis [facility] Penicillins (antibiotic) (2 sources) Amoxicillin Drug Allergy 4 [facility] (20 sources) Contrast media; Translations: [red dye] Allergy to substance 7 anaphylaxis, Angioedema, Swelling [facility] (3 sources) Amoxicillin / Clavulanate Drug Allergy 6 Unknown [facility] Other (20 sources) Amoxicillin; Translations: [amoxicillin] Drug Allergy 4 [facility] Comment on above: Onset Date: 06/02/20 16 (20 sources) Clavulanate; Translations: [clavulanic acid] Drug Allergy 4 [facility] Comment on above: Onset Date: 06/02/20 16 (15 sources) Penicillin G Drug Allergy 4 Unknown [facility] (15 sources) Red Dye #40 (Allura Red) Allergy to substance 7 Angioedema [facility] Medications Current Medications Medication Drug Class(es) Dates [...] pain scores based on patient preference? Yes acetaminophen 325 mg / HYDROcodone bitartrate 5 mg oral tablet (15 sources) Opioid Agonist Start: 05-09-2024 take 1 tablet by mouth every four to six hours as needed for pain HYDROcodone-acetaminophen ([place]) 5-325 MG tablet TAKE 1 TABLET BY MOUTH EVERY 4 TO 6 HOURS NEEDED FOR PAIN 05/09/2024 Active amLODIPine 10 mg oral tablet (20 sources) Dihydropyridine Calcium Channel Yung Start: 01-09-2025 End: 01-09-2026 take 1 tablet by mouth once daily amLODIPine (Norvasc) 10 mg tablet Indications: Hypertension, unspecified type Take 1 tablet (10 mg) by mouth once daily. 90 tablet 3 01/09/2025 01/09/2026 Active Start: 01-31-2018 End: 01-09-2025 take 1 tablet by mouth once daily in the morning azithromycin 250 mg oral tablet (1 source) Macrolide Antimicrobial Start: 12-22-2022 Azithromycin 250 MG as directed Orally 2 tabs po today, then 1 tab daily x 4 more days for 5 Nov, Active Contour Next Test - (5 sources) [...] milk Orally Once a day Active insulin aspart, human 100 unt/ml injectable solution (15 sources) Insulin Analog Start: 04-08-2024 insulin aspart (NovoLOG) 100 UNIT/ML injection Indications: Type 1 diabetes mellitus without complication (HCC) Per pump (max daily 60 units) 60 mL 3 04/08/2024 Active Insulin Infusion Pump (T:slim X2 Control-IQ Pump) device (15 sources) Start: 05-13-2024 Insulin Infusion Pump (T:slim X2 Control-IQ Pump) device 1 Device See administration instructions Basal: 12A 1.1, ICR: 12A 7, ISF: 75 1 each 05/13/2024 Active insulin isophane, human 100 unt/ml injectable suspension (18 sources) Start: 01-25-2024 inject 25 [IU] by subcutaneous injection every twenty-four hours 25 Units, subcutaneous, Every 24 hours, First dose (after last modification) on Mon01/25/24 at 0900 Start: 01-24-2024 End: 04-18-2024 insulin NPH, Isophane, (Humu GEOFF N,NovoLIN N) 100 unit/mL (3 mL) injection Indications: Type 1 diabetes mellitus with hyperglycemia (Multi) Inject 20 Units under the skin once daily in the morning. 15 mL 01/24/2024 04/18/2024 Discontinued (Formulary change) Start: 01-24-2024 End: 01-24-2024 insulin NPH, Isophane, [...] On Mon01/23/24 at 1300, For 1 dose Insulin Lispro 100 unit/mL solution (9 sources) Start: 10-10-2024 Insulin Lispro 100 unit/mL solution Active 1 UNIT CNTSUBQINF Daily October 10, 2024 4:30pm Start: 10-10-2024 Insulin Lispro 100 unit/mL solution Active 1 UNIT CNTSUBQINF Daily October 10, 2024 3:30pm INSULIN PUMP- PATIENT SUPPLIED (1 source) Start: 01-18-2024 End: 02-15-2024 pump - subcutaneous, Continuous Pump, First dose on Mon01/18/24 at 2200, For 28 days, Insulin Pump Optician: Expan, Using as Automated Delivery System: Yes, Insulin [...] directly over any surgical incisions or wounds. loperamide hydrochloride 2 mg oral capsule (5 sources) Opioid Agonist Start: 03-04-2024 take 1 capsule by mouth every eight hours as needed for diarrhea and diarrhea loperamide (Imodium) 2 mg capsule Indications: Diarrhea, unspecified type Take 1 capsule (2 mg) by mouth every 8 hours if needed for diarrhea. 03/04/2024 Active magnesium oxide 400 mg oral tablet (20 sources) Start: 01-22-2024 End: 01-22-2024 take 400 mg by mouth once 400 mg, oral, Once, On Mon01/22/24 at 0900, For 1 dose Start: 01-31-2023 take 1 tablet by betsy twice daily Magnesium Oxide -Mg Supplement 400 (240 Mg) MG Oral Tablet TAKE 1 TABLET BY MOUTH TWICE DAILY Quantity: 60 Refills: 5 Ordered: 31-Jan-2023 Sharan Ayoub MD Start : 31-Jan-2023 Active Start: 06-30-2020 take 1 tablet by betsy in the morning magnesium oxide (Mag-Ox) 400 (240 Mg) MG tablet Take 400 mg by mouth in the morning and 400 mg before bedtime. 11/04/2023 Active Start: 07-19-2016 End: 08-03-2023 take 1 tablet by mouth twice daily Start: 07-19-2016 take 1 tablet by betsy twice daily MAGnesium-Oxide 400 (241.3 Mg) MG TABS TAKE 1 TABLET BY MOUTH TWICE DAILY Quantity: 60 Refills: 11 Ordered: 26-Jan-2021 Sharan Ayoub MD Start : 19-Jul-2016 Active Start: 07-19-2016 [facility] MAG[facility]-Oxide 400 (241.3 Mg) MG Oral Tablet TAKE 1 TABLET BY MOUTH TWICE DAILY Quantity: 60 Refills: 11 Ordered: 26-Jan-2021 Sharan Ayoub MD Start : 19-Jul-2016 Active take 1 capsule by [facility] twice daily Magnesium Oxide 400 MG Oral Capsule Take 1 capsule twice daily Quantity: 60 Refills: 6 Sharan Ayoub MD Active MagOx 400 400 (241.3 Mg) MG (5 sources) take 1 tablet by betsy th twice daily at mealtime MagOx 400 400 (241.3 Mg) MG 1 tablet with food Orally BID Active Multiple Vitamin (Daily Vitamin) tablet (15 sources) take 1 tablet by betsy th once daily in the morning Multiple Vitamin (Daily Vitamin) tablet Take 1 tablet by mouth in the morning. Active multivit-min/ferrous fumarate (MULTI VITAMIN ORAL) (13 sources) take 1 tablet by betsy th once daily multivit-min/ferrous fumarate (MULTI VITAMIN ORAL) Take 1 tablet by mouth once daily. Active take 1 tablet by mouth once shakila y multivit-min/ferrous fumarate (MULTI VITAMIN ORAL) Take 1 tablet by mouth once daily. 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 180 capsule 3 08/03/2023 Active Start: 06-30-2020 take 1 capsule by [facility] twice daily Start: 08-28-2017 take 1 capsule [address] [facility] every twelve hours Mycophenolate Mofetil 250 MG Oral Capsule TAKE 1 CAPSULE BY MOUTH EVERY 12 HOURS Quantity: 60 Refills: 11 Ordered: 21-Jul-2022 Sharan Ayoub MD Start : 28-Aug-2017 Active Start: 08-28-2017 take 1 capsule by mo uth every twelve hours Mycophenolate Mofetil 250 MG Oral Capsule TAKE 1 CAPSULE Every twelve hours Quantity: 60 Refills: 11 Ordered: 03-Sep-2020 Sharan Ayoub MD Start : 28-Aug-2017 Active Start: 08-28-2017 take 2 capsules by m outh twice daily Mycophenolate Mofetil 250 MG Oral Capsule TAKE 2 CAPSULES BY MOUTH TWICE DAILY Quantity: 120 Refills: 3 Sharan Ayoub MD Start : 28-Aug-2017 Active take 1 capsule by mo [facility] every twelve hours mycophenolate (Cellcept) 250 MG capsule Take 250 mg by mouth every 12 (twelve) hours Active take 2 capsules by m outh every twenty-four hours Mycophenolate Mofetil 250 MG 2 capsules Orally Once a day Active 2 ml ondansetron 2 mg/ml injection (16 sources) Serotonin-3 Receptor Antagonist Start: 01-19-2024 take 4 mg intravenously every four hours as needed 4 mg, intravenous, Every 4 hours PRN, nausea/vomiting, first line, Starting on Mon01/19/24 at 0804, When administering via IV Push, administer over 3-5 minutes. Start: 05-21-2023 ondansetron OD T (Zofran-ODT) 4 MG disintegrating tablet DISSOLVE 1 TABLET ON THE TONGUE EVERY 6 HOURS NEEDED FOR NAUSEA OR VOMITING 05/21/2023 Active pantoprazole 40 mg delayed release oral tablet (20 sources) Proton Pump Inhibitor Start: 03-04-2024 End: 01-09-2025 take 1 tablet by mouth before mealtime pantoprazole (ProtoNix) 40 MG EC tablet Take 40 mg by mouth in the morning. Take before meals. 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 Take before meals. Do not crush, chew, or split. 30 tablet 01/25/2024 02/24/2024 Active polyethylene glycol 3350 72710 mg powder for oral solution (18 sources) Osmotic Laxative Start: 01-18-2024 End: 02-23-2024 polyethylene glycol, PEG, 3350 (Miralax) 17 g packet MIX 17 GRAMS WITH 8 OUNCES OF LIQUID AND DRINK ONCE DAILY NEEDED 01/24/2024 Active polyethylene glycol 3350 [id number] mg / potassium chloride 1480 mg / sodium bicarbonate 5720 mg / sodium chloride 27235 mg powder for oral solution (1 source) Osmotic Laxative Start: 04-19-2024 End: 04-19-2024 take 420 g by mouth once polyethylene glycol-electrolytes (Nulytely) 420 gram solution Indications: Gastroesophageal reflux disease without esophagitis Take 4,000 mL by mouth 1 time for 1 dose. 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 30 tablet 4 03/15/2024 Active Start: 01-24-2024 End: 02-23-2024 take 6 tablets [...] April 09, 2024 3:41pm Start: 07-25-2019 End: 04-09-2024 take 2 tablets by mouth once daily in the morning Prednisone 1 mg tablet Discontinued 2 MG PO Every morning November 04, 2020 1:00am April 09, 2024 3:41pm Start: 07-25-2019 End: 01-24-2024 take 1 tablet by mouth once daily predniSONE 1 mg Tab mg tab(s), Oral, Daily, Refills(s) 0 Start Date: 06/30/20 Status: Ordered Start: 06-09-2016 take 1 tablet by betsy once daily predniSONE 5 MG Oral Tablet Take 1 tablet daily Quantity: 30 Refills: 6 Sharan Ayoub MD Start : 09-Jun-2016 Active tacrolimus 1 mg oral capsule (20 sources) Calcineurin Inhibitor Immunosuppressant Start: 10-15-2024 take 1 capsule by mouth twice daily tacrolimus (Prograf) 1 mg capsule 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 60 capsule 01/24/2024 02/23/2024 Active Start: 01-18-2024 End: 01-19-2024 take 0.5 mg by mouth every twelve hours 0.5 mg, oral, Every 12 hours scheduled (0630,1830), First dose on Mon01/18/24 at 2100 Start: 12-07-2023 End: 01-24-2024 take 0.5 mg by mouth twice daily 0.5 mg, oral, User sp ecified (2 times per day), First dose (after last modification) on Mon01/19/24 at 1330 Start: 08-03-2023 take 1 capsule [address] [facility] twice daily tacrolimus (Prograf) 1 mg capsule Indications: Liver replaced by transplant (CMS/HCC) Take 1 capsule (1 mg) by mouth 2 times a day. 180 capsule 3 08/03/2023 Active Start: 06-30-2020 take 1 capsule by [facility] every twelve hours tacrolimus 1 mg oral capsule mg cap(s), Oral, q12hr, Refills(s) 0 Start Date: 06/30/20 Status: Ordered Start: 02-14-2017 take 1 capsule by [facility] twice daily Start: 02-14-2017 End: 08-03-2023 take 1 capsule by mouth once daily in the morning, then take 2 capsules by mouth once daily in the evening Tacrolimus 1 MG Oral Capsule take 1 capsule by mouth every morning and 2 capsules every evening. Quantity: 270 Refills: 3 Ordered: 24-May-2023 Sharan Ayoub MD Start : 14-Feb-2017 Active DOSE UPDATE Start: 02-14-2017 take 2 capsules by out once daily in the morning, then take 1 capsule by mouth once daily in the evening Tacrolimus 1 MG Oral Capsule Take 2 capsule Every Morning and 1 capsule in the Every Evening. Quantity: 360 Refills: 3 Sharan Ayoub MD Start : 14-Feb-2017 Active tamsulosin hydrochloride 0.4 mg oral capsule (10 sources) alpha-Adrenergic Yung Start: 10-04-2024 take 1 capsule by mouth once daily tamsulosin (Flomax) 0.4 MG 24 hr capsule Take 0.4 mg by mouth Daily 10/04/2024 Active valACYclovir 1000 mg oral tablet (15 sources) Herpesvirus Nucleoside Analog DNA Polymerase Inhibitor, Herpes Simplex Virus Nucleoside Analog DNA Polymerase Inhibitor, Herpes Zoster Virus Nucleoside Analog DNA Polymerase Inhibitor Start: 05-09-2024 take 1 tablet by mouth three times daily valACYclovir (Valtrex) 1 g tablet Indications: Herpes zoster without complication Take 1 tablet, by mouth, three times a day x 10 days 30 tablet 05/09/2024 Active Vitamin D (1 source) Start: 06-30-2020 Vitamin D Oral, Refills(s) 0 Start Date: 06/30/20 Status: Ordered Completed/Discontinued Medications Medication Drug Class(es) Dates Sig (Normalized) Sig (Original) aspirin 81 mg delayed release oral tablet (20 sources) Platelet Aggregation Inhibitor, Nonsteroidal Anti-inflammatory Drug Start: 11-04-2020 End: 04-09-2024 take 1 tablet by mouth once daily at bedtime Aspirin 81 mg Tablet,Delayed Release (Dr/Ec) Discontinued 81 MG PO Daily at bedtime November 04, 2020 1:00am April 09, 2024 9:03am cefdinir 300 mg oral capsule (18 sources) Cephalosporin Antibacterial Start: 07-19-2024 End: 10-10-2024 take 1 capsule by mouth twice daily Cefdinir 300 mg capsule Discontinued 300 MG PO Twice daily July 19, 2024 12:00am October 10, 2024 4:23pm Start: 10-30-2023 Cefdinir 300 M G as directed Orally bid for 7 days Oct, Active cephalexin 500 mg oral capsule (20 sources) Cephalosporin Antibacterial Start: 11-11-2020 End: 04-09-2024 take 1 capsule by mouth every twelve hours Cephalexin 500 mg capsule Discontinued 500 MG PO Q12H November 11, 2020 1:00am April 09, 2024 9:01am ciprofloxacin 250 mg oral tablet (9 sources) Quinolone Antimicrobial Start: 12-11-2024 End: 03-04-2025 take 1 tablet by mouth twice daily Ciprofloxacin Hcl 250 mg tablet Discontinued 250 MG PO Twice daily December 11, 2024 12:00am March 04, 2025 3:10pm Start: 05-10-2023 Ciprofloxacin HCl 0.3 % 1 application into the lower eyelid of affected eye Ophthalmic tid for 5 day(s) May, Active ergocalciferol 10649 unt oral capsule (2 sources) Provitamin D2 Compound Start: 04-11-2017 take 1 capsule by mouth every week Vitamin D (Ergocalciferol) 12138 UNIT Oral Capsule TAKE 1 CAPSULE WEEKLY. [...] End: 12-19-2023 fentaNYL PF (Sublimaze) inje ction insulin lispro 100 unt/ml injectable solution (20 sources) Insulin Analog Start: 06-10-2024 End: 06-10-2025 inject 1 dose by subcutaneous injection once Insulin Lispro 100 UNIT/ML solution Indications: Type 1 diabetes mellitus without complication (HCC) Inject 1 Dose under the skin See administration instructions Per pump max 60 units a day 60 mL 3 06/10/2024 06/10/2025 Active Start: 01-19-2024 0-10 Units, pool bcutaneous, 3 [...] Refill for patient own pump, Starting on Sherry 01/18/24 at 2109, Whole vial - REFILL for patient own insulin pump Start: 05-24-2022 Insulin Lispro 100 UNIT/ML Injection Solution INJECT 50 UNITS PER PUMP DIRECTED ONCE DAILY Quantity: 20 Refills: 0 Ordered: 24-May-2022 DO Start : 24-May-2022 Complete Start: 11-04-2020 End: 05-28-2025 Insulin Lispro 100 unit/mL solution Discontinued 1 UNIT CNTSUBQINF Daily October 10, 2024 4:30pm May 19, 2025 8:16am Start: 10-10-2018 End: 11-04-2020 Insulin Lispro 100 unit/mL solution Discontinued November 04, 2020 1:00am November 04, 2020 8:52am Start: 06-22-2016 inject 4 [IU] by sub cutaneous injection once before mealtime, then inject 25 [IU] by subcutaneous injection once daily HumaLOG KwikPen 100 UNIT/ML Subcutaneous Solution Pen-injector INJECT 4 UNIT Before meals + per sliding scale ( 1unit for every 50>150: may inject up to 25 units per day) Quantity: 1 Refills: 0 Sammie CHOPRA, [facility] Start : 22-Jun-2016 Active 3 ML Pen (5 Pens) inject 50 [IU] by pool bcutaneous injection once daily HumaLOG 100 UNIT/ML via insulin pump 50 units/day Subcutaneous daily Active isopropyl alcohol 0.7 ml/ml medicated pad (3 sources) Start: 10-25-2016 Alcohol Pads 70 % Pad Use 4 a day as directed Quantity: 2 Refills: 11 José Miguel CHOPRA, [facility] Start : 25-Oct-2016 Active 100 Pad Box ketorolac tromethamine 10 mg oral tablet (20 sources) Nonsteroidal Anti-inflammatory Drug, Cyclooxygenase Inhibitor Start: 11-11-2020 End: 04-09-2024 take 1 tablet by mouth every six hours as needed for pain Ketorolac 10 mg tablet Discontinued 10 MG PO Q6H as needed for pain 20 5 November 11, 2020 1:00am April 09, 2024 9:03am 50 ml magnesium sulfate 40 mg/ml injection (3 sources) Start: 01-23-2024 End: 01-23-2024 2 g, intravenous, at 25 mL/hr, Administer [...] mL/hr, Administer over 60 Minutes, Once, On Mon01/18/24 at 2200, For 1 dose 5 ml [...] Bottle Start: 08-30-2017 take 1 tablet by ebtsy th once daily Multi-Vitamins Oral Tablet TAKE [...] omeprazole 20 mg delayed release oral capsule (17 sources) Proton Pump Inhibitor Start: 08-30-2017 take [...] Solution USE DIRECTED. 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 5 tablet 01/24/2024 04/18/2024 Discontinued (Therapy completed) Start: 01-23-2024 take 1 tablet by betsy [...] pain scores based on patient preference? Yes microencapsulated potassium chloride 20 meq extended release oral tablet (17 sources) Start: 12-11-2024 End: 03-04-2025 take 1 tablet by mouth once daily Potassium Chloride 20 mEq tablet,ER particles/crystals Discontinued 0 .ROUTE .COMPLEX 90 December 11, 2024 2:14pm March 04, 2025 3:11pm TAKE 1 TABLET BY MOUTH DAILY Start: 12-11-2024 End: 12-11-2024 Potassium Chloride (Klor-Con M20) 20 mEq tablet,ER particles/crystals Discontinued 20 MEQ PO Daily December 11, 2024 12:00am December 11, 2024 2:14pm Start: 01-18-2024 End: 01-18-2024 40 mEq, oral, Once, On Sherry at 2230, For 1 dose, Best given with food and plenty of water to minimize gastric irritation. Do not crush or chew. spironolactone 100 mg oral tablet (18 sources) Aldosterone Antagonist Start: 04-19-2024 End: 10-10-2024 take 1 tablet by mouth once daily spironolactone (Aldactone) 100 mg tablet Indications: Localized edema Take 1 tablet (100 mg) by mouth once daily. 90 tablet 3 04/19/2024 10/10/2024 Discontinued (Therapy completed) Start: 02-08-2024 End: 04-18-2024 take 1 tablet by mouth once daily spironolactone (Aldactone) 50 mg tablet Indications: Localized edema Take 1 tablet (50 mg) by mouth once daily. 30 tablet 1 02/08/2024 04/18/2024 Discontinued 24 hr venlafaxine 75 mg extended release oral capsule (20 sources) Serotonin and Norepinephrine Reuptake Inhibitor Start: 11-28-2024 take 1 capsule by mouth once daily venlafaxine XR (Effexor XR) 75 MG 24 hr capsule Take 75 mg by mouth Daily 11/28/2024 Active Start: 05-23-2024 End: 05-09-2025 take 1 capsule by mouth once daily Venlafaxine 75 mg capsule,extended release 24hr Discontinued 0 .ROUTE .COMPLEX January 31, 2025 1:04pm May 09, 2025 10:46am TAKE 1 CAPSULE BY MOUTH DAILY Start: 05-21-2024 End: 05-23-2024 take 1 capsule by mouth once daily Venlafaxine 37.5 mg capsule,extended release 24hr Discontinued 0 .ROUTE .COMPLEX May 21, 2024 8:33am May 23, 2024 3:20pm TAKE 1 CAPSULE BY MOUTH DAILY Start: 04-11-2024 End: 05-21-2024 take 1 capsule by mouth once daily Venlafaxine (Effexor Xr) 37.5 mg capsule,extended release 24hr Discontinued 37.5 MG PO Daily April 11, 2024 12:00am May 21, 2024 8:36am End: 12-31-2024 take 1 tablet by mouth once daily at bedtime venlafaxine (Effexor) 37.5 mg tablet Take 1 tablet (37.5 mg) by mouth once daily at bedtime. Active Vitamin D 03883 UNIT (5 sources) take 1 capsule by mo uth every week as needed Vitamin D 29692 UNIT 1 capsule Orally Once a week Not-Taking/PRN take 1 capsule by mouth every we ek Vitamin D 88806 UNIT 1 capsule Orally Once a week Not-Taking Problems Active Problems Problem Classification Problem Date Documented Da te Episodic/Chronic Abdominal pain (20 sources) Abdominal pain; Translations: [Acute abdominal pain] Onset: 2 Resolved: 8 Episodic Anxiety disorders (2 sources) Anxiety disorder, unspecified; Translations: [Anxiety disorder] Onset: 3 02-20-2023 Chronic Bacterial infection; unspecified site (1 source) Other specified bacterial agents as the cause of diseases classified elsewhere Episodic Calculus of urinary tract (20 sources) Calcium renal calculus ; Translations: [Calculus of kidney] Onset: 3 07-18-2023 Episodic Comment on above: Problem List clean-u p per request of Phys. EHR Cmte Chronic kidney disease (20 sources) Chronic kidney disease stage 3; Translations: [Chronic kidney disease, Stage III (moderate)] Onset: 3 07-18-2023 Chronic Conditions associated with dizziness or vertigo (3 sources) Dizziness and giddiness; Translations: [DIZZINESS AND GIDDINESS] Onset: 3 Episodic Diabetes mellitus with complications (20 sources) Hyperglycemia due to type 1 diabetes mellitus; Translations: [Type 1 diabetes mellitus with hyperglycemia] 01-24-2024 Chronic Diabetes mellitus without complication (20 sources) Type 1 diabetes mellitus; Translations: [Diabetes mellitus without mention of complication, type I [juvenile type], not stated as uncontrolled] Onset: 6 Chronic Diabetes mellitus without complication (5 sources) Insulin pump present; Translations: [Presence of insulin pump (external) (internal)] Episodic Disorders of lipid metabolism (5 sources) Hyperlipidemia; Translations: [Hyperlipidemia, unspecified] Chronic Esophageal disorders (1 source) Gastroesophageal reflux disease without esophagitis; Translations: [Gastro-esophageal reflux disease without esophagitis] 04-18-2024 Chronic Essential hypertension (20 sources) Essential (primary) hypertension; Translations: [Hypertensive disorder] Onset: 3 10-10-2024 Chronic Fluid and electrolyte disorders (20 sources) Dehydration; Translations: [Dehydration] 07-30-2024 Episodic Genitourinary symptoms and ill-defined conditions (8 sources) Dysuria; Translations: [Microscopic hematuria] Onset: 5 09-10-2020 Episodic Hepatitis (20 sources) Autoimmune hepatitis; Translations: [Autoimmune hepatitis] Chronic Immunity disorders (20 sources) Immunosuppression; Translations: [Unspecified disorder of immune mechanism] Onset: 3 07-18-2023 Chronic Malaise and fatigue (1 source) Weakness; Translations: [WEAKNESS] Onset: 3 Episodic Mood disorders (20 sources) Depressive disorder; Translations: [Depression] 04-25-2024 Chronic Other aftercare (1 source) terminal supervisor (current) use of aspirin; Translations: [[facility] CURRENT USE OF ASPIRIN] Onset: 3 Episodic Other aftercare (1 source) terminal supervisor (current) use of insulin; Translations: [FOREIGN EXCHANGE TRADER CURRENT USE OF INSULIN] Onset: 3 Episodic Other aftercare (1 source) Other terminal press operator (current) drug therapy; Translations: [OTH FOREIGN EXCHANGE TRADER CURRENT DRUG THERAPY] Onset: 3 Episodic Other circulatory disease (20 sources) H/O: hypertension; Translations: [Personal history of other diseases of circulatory system] Episodic Other diseases of kidney and ureters (1 source) Hydronephrosis due to ureteral obstruction 09-10-2020 Episodic Other diseases of kidney and ureters (1 source) Kidney disease 06-30-2020 Episodic Other gastrointestinal disorders (16 sources) Irritable bowel syndrome with diarrhea; Translations: [Irritable bowel syndrome with diarrhea] 03-04-2025 Chronic Other gastrointestinal disorders (2 sources) Irritable bowel syndrome with diarrhea; Translations: [Irritable bowel syndrome] Chronic Other gastrointestinal disorders (3 sources) Irritable bowel syndrome; Translations: [Mixed irritable bowel syndrome] Chronic Other gastrointestinal disorders (1 source) Mixed irritable bowel syndrome Chronic Other inflammatory condition of skin (6 sources) Erythema of skin; Translations: [Other specified erythematous conditions] 11-13-2024 Episodic Other liver diseases (2 sources) H/O: liver recipient; Translations: [Liver replaced by transplant] Chronic Other liver diseases (20 sources) Liver transplant status; Translations: [Liver replaced by transplant] Onset: 3 Chronic Other liver diseases (5 sources) Transplanted liver present; Translations: [Liver transplant status] Chronic Other liver diseases (6 sources) Jaundice; Translations: [Unspecified jaundice] 05-28-2025 Episodic Other nutritional; endocrine; and metabolic disorders (1 source) Hypomagnesemia; Translations: [Hypomagnesemia] Onset: 5 Chronic Other nutritional; endocrine; and metabolic disorders (20 sources) History of diabetes mellitus type 1; Translations: [Personal history of other endocrine, metabolic, and immunity disorders] Episodic Other screening for suspected conditions (not mental disorders or infectious disease) (20 sources) Liver function tests abnormal; Translations: [Other specified abnormal findings of blood chemistry] Onset: 3 Episodic Other upper respiratory infections (14 sources) Acute maxillary sinusitis, unspecified; Translations: [Acute upper respiratory infection, unspecified] Episodic Otitis media and related conditions (10 sources) Otitis media of left ear; Translations: [Otitis media, unspecified, left ear] 03-04-2025 Episodic Residual codes; unclassified (1 source) Family history of renal stone 06-30-2020 Episodic Spondylosis; intervertebral disc disorders; other back problems (17 sources) Low back pain; Translations: [Other low back pain] 05-29-2024 Episodic Thyroid disorders (20 sources) Thyrotoxicosis, unspecified without thyrotoxic crisis or storm; Translations: [Hyperthyroidism] Onset: 6 07-18-2023 Chronic Unclassified (1 source) Elevated LFTs 01-09-2025 Viral infection (20 sources) Cytomegaloviral disease, unspecified; Translations: [Cytomegalovirus viremia] Onset: 3 07-18-2023 Episodic Past or Other Problems Problem Classification Problem Date Documented Da te Episodic/Chronic Complication of device; implant or graft (20 [...] of nutritional deficiency] Resolved: 04-25-2018 Episodic Other skin disorders (20 sources) H/O: skin disorder; Translations: [Personal history of diseases of skin and subcutaneous tissue] Resolved: 04-25-2018 Episodic Residual codes; unclassified (2 sources) H/O: Disorder; Translations: [History of acne] Episodic Residual codes; unclassified (1 source) Localized edema; Translations: [Localized edema] 04-18-2024 Episodic NEGATED: Highlighted row has not occurred!Residual codes; unclassified (20 sources) Disease Episodic Results Test Name Value Interpretation Reference Range Facility Urine Cultureon 06-16-2025 Bacteria identified Cx Nom (U) ORGANISM: Strep agalactiae - (group b) (O:STRAGA) [place] Count 10,000 PERFORMED BY: [place] [address] PATHOLOGIST LABOR EXPEDITER VALERIE STODDARD M.D. Normal [facility] Comment on above: Performed By: #### C BC, CMP, TACROLIMUS. #### [facility] [address] [place] [address] Alanine aminotransferase [En zymatic activity/volume] in Serum or PlasmaOrdered By: Sharan Ayoub on 05-28-2025 ALT [Catalytic activity/Vol] 67 U/L [facility] 7-52 [facility] Comment on above: Performed By: #### C BC, CMP, TACROLIMUS. #### [facility] [address] [place] [address] [place] Albumin [Mass/volume] in Ser um or Plasma by Bromocresol green (BCG) dye binding methoOrdered By: Sharan Ayoub on 05-28-2025 Albumin BCG dye [Mass/Vol] 3.3 g/dL Low 3.5-5.7 [facility] Alkaline phosphatase [Enzyma tic activity/volume] in Serum or PlasmaOrdered By: Sharan Ayoub on 05-28-2025 ALP [Catalytic activity/Vol] 376 U/L High 34-104 [facility] Comment on above: Performed By: #### C BC, CMP, TACROLIMUS. #### [facility] [address] [place] [address] [place] Aspartate aminotransferase [ Enzymatic activity/volume] in Serum or PlasmaOrdered By: Sharan Ayoub on 05-28-2025 AST [Catalytic activity/Vol] 65 U/L High 13-39 [facility] Comment on above: Performed By: #### C BC, CMP, TACROLIMUS. #### [facility] [address] [place] [address] [place] Basophils [#/volume] in Bloo d by Automated countOrdered By: Sharan Ayoub on 05-28-2025 Basophils (Bld) [#/Vol] 0.2 10*3/uL Normal 0.0-0.2 [facility] Comment on above: Result Comment: PERF ORMED BY: [place] [address] PATHOLOGIST LABOR EXPEDITER VALERIE STODDARD M.D. Performed By: #### C BC, CMP, TACROLIMUS. #### [facility] [address] [place] [address] [place] Basophils/100 leukocytes in Blood by Automated countOrdered By: Sharan Ayoub on 05-28-2025 Basophils/100 WBC (Bld) 1.4 % Normal . [facility] Comment on above: Performed By: #### C BC, CMP, TACROLIMUS. #### [facility] [address] [place] [address] [place] Bilirubin.total [Mass/volume ] in Serum or PlasmaOrdered By: Sharan Ayoub on 05-28-2025 Bilirubin [Mass/Vol] 3.1 mg/dL High 0.3-1.0 [facility] Comment on above: Samples from patient s [...] measuring Total Bilirubin. Performed By: #### C BC, CMP, TACROLIMUS. #### [facility] [address] Blood tacrolimus measurement (mass/volume)Ordered By: Sharan Ayoub on 05-28-2025 Tacrolimus (Bld) [Mass/Vol] Sent to ref lab [facility] Calcium [Mass/volume] in Ser um or PlasmaOrdered By: Sharan Ayoub on 05-28-2025 Calcium [Mass/Vol] 8.6 mg/dL Normal 8.6-10.3 [facility] Comment on above: Performed By: #### C BC, CMP, TACROLIMUS. #### [address] Carbon dioxide, total [Moles /volume] in Serum or PlasmaOrdered By: Sharan Ayoub on 05-28-2025 CO2 [Moles/Vol] 32.3 mmol/L High 21.0-31.0 [facility] Comment on above: Performed By: #### C BC, CMP, TACROLIMUS. #### [facility] [address] Chloride [Moles/volume] in S kasi or PlasmaOrdered By: Sharan Ayoub on 05-28-2025 Chloride [Moles/Vol] 100 mmol/L Normal 98-107 [facility] Comment on above: Performed By: #### C BC, CMP, TACROLIMUS. #### [facility] [address] [place] [address] Complete Blood Count Auto Di ffon 05-28-2025 Mean Corpuscular HGB Conc 34.0 g/dL Normal 32.5-35.6 [facility] Comment on above: Performed By: #### C BC, CMP, TACROLIMUS. #### [address] NRBC% 0.1 /100{WBC} Normal 0-0.5 [facility] Comment on above: Performed By: #### C BC, CMP, TACROLIMUS. #### [address] White Blood Count 11.5 [CFU]/mL High 4.1-10.5 [facility] Comment on above: Performed By: #### C BC, CMP, TACROLIMUS. #### [address] Comprehensive Metabolic Pane sarah 05-28-2025 Albumin [Mass/Vol] 3.3 g/dL Low 3.5-5.7 [facility] Comment on above: Performed By: #### C BC, CMP, TACROLIMUS. #### [address] GFR/1.73 sq M.predicted MDRD (S/P/Bld) [Vol rate/Area] mL/min/{1.73_m2} Normal [facility] Comment on above: Performed By: #### C BC, CMP, TACROLIMUS. #### [address] Creatinine [Mass/volume] in Serum or PlasmaOrdered By: Sharan Ayoub on 05-28-2025 Creatinine [Mass/Vol] 0.86 mg/dL Normal 0.70-1.30 [facility] Comment on above: Performed By: #### C BC, CMP, TACROLIMUS. #### [address] Eosinophils [#/volume] in Bl ood by Automated countOrdered By: Sharan Ayoub on 05-28-2025 Eosinophils (Bld) [#/Vol] 0.1 10*3/uL Normal 0.0-0.45 [facility] Comment on above: Performed By: #### C BC, CMP, TACROLIMUS. #### [facility] [address] Eosinophils/100 leukocytes i n Blood by Automated countOrdered By: Sharan Ayoub on 05-28-2025 Eosinophils/100 WBC (Bld) 1.1 % Normal . [facility] Comment on above: Performed By: #### C BC, CMP, TACROLIMUS. #### [address] Erythrocyte distribution wid th [Ratio] by Automated countOrdered By: Sharan Ayoub on 05-28-2025 Erythrocyte distribution width (RBC) [Ratio] 15.2 % High 12.0-14.8 [facility] Comment on above: Performed By: #### C BC, CMP, TACROLIMUS. #### [address] Erythrocytes [#/volume] in B lood by Automated countOrdered By: Sharan Ayoub on 05-28-2025 RBC (Bld) [#/Vol] 4.75 10*6/uL Normal 3.90-5.60 [facility] Comment on above: Performed By: #### C BC, CMP, TACROLIMUS. #### [address] Glomerular filtration rate [ Volume Rate/Area] in Serum, Plasma or Blood by CreatinineOrdered By: Sharan Ayoub on 05-28-2025 Glomerular filtration rate [Volume Rate/Area] in Serum, Plasma or Blood by Creatinine > 60.0 mL/Min [facility] Glucose [Mass/volume] in Ser um or PlasmaOrdered By: Sharan Ayoub on 05-28-2025 Glucose [Mass/Vol] 289 mg/dL High 70-100 [facility] Comment on above: ADA recommended refe rence rangeRandom Glucose Reference Range is dependent on time and content of last meal. Glucose of more than 200 mg/dL in a nonstressed, ambulatory subject supports the diagnosis of Diabetes Mellitus. Result Comment: [place] om Glucose Reference Range is dependent on time and content of last meal. Glucose of more than 200 mg/dL in a nonstressed, ambulatory subject supports the diagnosis of Diabetes Mellitus. ADA recommended reference range Performed By: #### C BC, CMP, TACROLIMUS. #### [address] Hematocrit [Volume Fraction] of Blood by Automated countOrdered By: Sahran Ayoub on 05-28-2025 Hematocrit (Bld) [Volume fraction] 43.1 % Normal 38.8-50.0 [facility] Comment on above: Performed By: #### C BC, CMP, TACROLIMUS. #### [address] Hemoglobin [Mass/volume] in BloodOrdered By: Sharan Ayoub on 05-28-2025 Hemoglobin (Bld) [Mass/Vol] 14.7 g/dL Normal 13.0-17.0 [facility] Comment on above: Performed By: #### C BC, CMP, TACROLIMUS. #### [address] Leukocytes [#/volume] correc roderick for nucleated erythrocytes in Blood by Automated counOrdered By: Sharan Ayoub on 05-28-2025 WBC corrected for nucl RBC Auto (Bld) [#/Vol] 11.5 10*3/uL High 4.1-10.5 [facility] Leukocytes [#/volume] in Blo od by Automated countOrdered By: Sharan Ayoub on 05-28-2025 WBC (Bld) [#/Vol] 11.5 10*3/uL High 4.1-10.5 [facility] Comment on above: Performed By: #### C BC, CMP, TACROLIMUS. #### [address] Lymphocytes [#/volume] in Bl ood by Automated countOrdered By: Sharan Ayoub on 05-28-2025 Lymphocytes (Bld) [#/Vol] 2.6 10*3/uL Normal 1.00-4.8 [facility] Comment on above: Performed By: #### C BC, CMP, TACROLIMUS. #### [facility] [address] Lymphocytes/100 leukocytes i n Blood by Automated countOrdered By: Sharan Ayoub on 05-28-2025 Lymphocytes/100 WBC (Bld) 22.9 % Normal . [facility] Comment on above: Performed By: #### C BC, CMP, TACROLIMUS. #### [facility] [address] [place] [address] MCH [Entitic mass] by Automa roderick countOrdered By: Sharan Ayoub on 05-28-2025 MCH (RBC) [Entitic mass] 30.9 pg Normal 27.5-35.2 [facility] Comment on above: Performed By: #### C BC, CMP, TACROLIMUS. #### [address] MCHC Auto (RBC) [Mass/Vol]Or dered By: Sharan Ayobu on 05-28-2025 MCHC (RBC) [Mass/Vol] 34.0 g/dL 32.5-35.6 [facility] MCV [Entitic volume] by Auto mated countOrdered By: Sharan Ayoub on 05-28-2025 MCV (RBC) [Entitic vol] 90.8 fL Normal 83.5-101 [facility] Comment on above: Performed By: #### C BC, CMP, TACROLIMUS. #### [facility] [address] [place] [address] Magnesium [Mass/volume] in S kasi or PlasmaOrdered By: Sharan Ayoub on 05-28-2025 Magnesium [Mass/Vol] 1.5 mg/dL Low 1.9-2.7 [facility] Comment on above: Result Comment: PERF ORMED BY: [place] [address] PATHOLOGIST LABOR EXPEDITER VALERIE STODDARD M.D. Performed By: #### C BC, CMP, TACROLIMUS. #### [facility] [address] [place] [address] Monocytes [#/volume] in Bloo d by Automated countOrdered By: Sharan Ayoub on 05-28-2025 Monocytes (Bld) [#/Vol] 0.8 10*3/uL Normal 0.0-0.8 [facility] Comment on above: Performed By: #### C BC, CMP, TACROLIMUS. #### [facility] [address] [place] [address] [place] Monocytes/100 leukocytes in Blood by Automated countOrdered By: Shaarn Ayoub on 05-28-2025 Monocytes/100 WBC (Bld) 7.0 % Normal . [facility] Comment on above: Performed By: #### C BC, CMP, TACROLIMUS. #### [facility] [address] [place] [address] [place] Neutrophils [#/volume] in Bl ood by Automated countOrdered By: Sharan Ayoub on 05-28-2025 Neutrophils (Bld) [#/Vol] 7.8 10*3/uL High 1.8-7.7 [facility] Comment on above: Performed By: #### C BC, CMP, TACROLIMUS. #### [facility] [address] Neutrophils/100 leukocytes i n Blood by Automated countOrdered By: Sharan Ayoub on 05-28-2025 Neutrophils/100 WBC (Bld) 67.6 % Normal . [facility] Comment on above: Performed By: #### C BC, CMP, TACROLIMUS. #### [facility] [address] [place] [address] No Panel InformationOrdered By: Sharan Ayoub on 05-28-2025 Pharmacy Creatinine Clearance (Chem N/A [facility] Nucleated erythrocytes [Pres ence] in Blood by Automated countOrdered By: Sharan Ayoub on 05-28-2025 Nucleated RBC Auto Ql (Bld) 0.1 /100{WBC} 0-0.5 [facility] Platelet mean volume [Entiti c volume] in Blood by Automated countOrdered By: Sharan Ayoub on 05-28-2025 Platelet mean volume (Bld) [Entitic vol] 11.2 fL High 6.6-10.1 [facility] Comment on above: Performed By: #### C BC, CMP, TACROLIMUS. #### [facility] [address] Platelets [#/volume] in Bloo d by Automated countOrdered By: Sharan Ayoub on 05-28-2025 Platelets (Bld) [#/Vol] 168 10*3/uL Normal 150-450 [facility] Comment on above: Performed By: #### C BC, CMP, TACROLIMUS. #### [address] Potassium [Moles/volume] in Serum or PlasmaOrdered By: Sharan Ayoub on 05-28-2025 Potassium [Moles/Vol] 3.5 mmol/L Normal 3.5-5.1 [facility] Comment on above: Performed By: #### C BC, CMP, TACROLIMUS. #### [facility] [address] [place] [address] Protein [Mass/volume] in Ser um or PlasmaOrdered By: Sharan Ayoub on 05-28-2025 Protein [Mass/Vol] 6.5 g/dL Normal 6.4-8.9 [facility] Comment on above: Performed By: #### C BC, CMP, TACROLIMUS. #### [address] Serum globulin measurement b y calculation (mass/volume)Ordered By: Sharan Ayoub on 05-28-2025 Globulin (S) [Mass/Vol] 3.2 g/dL [facility] Comment on above: Performed By: #### C BC, CMP, TACROLIMUS. #### [address] Serum or plasma albumin/glob ulin mass ratioOrdered By: Sharan Ayoub on 05-28-2025 Albumin/Globulin [Mass ratio] 1.0 {ratio} [facility] Comment on above: Performed By: #### C BC, CMP, TACROLIMUS. #### [address] Serum or plasma anion gap de terminationOrdered By: Sharan Ayoub on 05-28-2025 Anion gap [Moles/Vol] 9.2 mmol/L Normal 6.0-15.0 [facility] Comment on above: Performed By: #### C BC, CMP, TACROLIMUS. #### [facility] [address] Sodium [Moles/volume] in Ser um or PlasmaOrdered By: Sharan Ayoub on 05-28-2025 Sodium [Moles/Vol] 138 mmol/L Normal 136-145 [facility] Comment on above: Performed By: #### C BC, CMP, TACROLIMUS. #### [facility] [address] Tacrolimuson 05-28-2025 Tacrolimus (Bld) [Mass/Vol] 9.3 ng/mL Normal <=15.0 [facility] Comment on above: Order Comment: NOTE: Result was obtained using a chemiluminescent microparticle immunoassay (CMIA) on the [employer] i system. Optimal therapeutic ranges for immunosuppressant drugs depend upon an individual patient's current clinical state, type of organ transplant, time post-transplant, co-administration of other immunosuppressants, and other clinical factors. The results of this test should be correlated with additional clinical and laboratory data before changes in treatment regimens are made. Performed By: #### 1 1253-2 #### NORMA Cherry ([id number]) [facility] ([facility]) [id number] [place] [address] Tacrolimus (Transplant) No C hgon 05-28-2025 Tacrolimus (Transplant) No Chg Sent to Ref Lab Normal [facility] Comment on above: Result Comment: PERF ORMED BY: [facility] [address] [place] [address] PATHOLOGIST LABOR EXPEDITER VALERIE STODDARD M.D. Performed By: #### C BC, CMP, TACROLIMUS. #### [facility] [address] [place] [address] Urea nitrogen [Mass/volume] in Serum or PlasmaOrdered By: Sharan Ayoub on 05-28-2025 Urea nitrogen [Mass/Vol] 14 mg/dL Normal 7-25 [facility] Comment on above: Performed By: #### C BC, CMP, TACROLIMUS. #### [facility] [address] [place] [address] [place] Alanine aminotransferase [En zymatic activity/volume] in Serum or PlasmaOrdered By: Sharan Ayoub on 03-31-2025 ALT [Catalytic activity/Vol] 102 U/L High 7-52 [facility] Comment on above: Performed By: #### C BC, CMP, TACROLIMUS. #### [facility] [address] [place] [address] [place] Albumin [Mass/volume] in Ser um or Plasma by Bromocresol green (BCG) dye binding methoOrdered By: Sharan Ayoub on 03-31-2025 Albumin BCG dye [Mass/Vol] 3.3 g/dL Low 3.5-5.7 [facility] Alkaline phosphatase [Enzyma tic activity/volume] in Serum or PlasmaOrdered By: Sharan Ayoub on 03-31-2025 ALP [Catalytic activity/Vol] 391 U/L High 34-104 [facility] Comment on above: Result Comment: PERF ORMED BY: [place] [address] PATHOLOGIST LABOR EXPEDITER VALERIE STODDARD M.D. Performed By: #### C BC, CMP, TACROLIMUS. #### [facility] [address] [place] [address] [place] Aspartate aminotransferase [ Enzymatic activity/volume] in Serum or PlasmaOrdered By: Sharan Ayoub on 03-31-2025 AST [Catalytic activity/Vol] 91 U/L High 13-39 [facility] Comment on above: Performed By: #### C BC, CMP, TACROLIMUS. #### [facility] [address] [place] [address] [place] Basophils [#/volume] in Bloo d by Automated countOrdered By: Sharan Ayoub on 03-31-2025 Basophils (Bld) [#/Vol] 0.0 10*3/uL Normal 0.0-0.2 [facility] Comment on above: Result Comment: PERF ORMED BY: [facility] [address] [place] [address] PATHOLOGIST LABOR EXPEDITER VALERIE STODDARD M.D. Performed By: #### C BC, CMP, TACROLIMUS. #### [facility] [address] Basophils/100 leukocytes in Blood by Automated countOrdered By: Sharan Ayoub on 03-31-2025 Basophils/100 WBC (Bld) 0.6 % Normal . [facility] Comment on above: Performed By: #### C BC, CMP, TACROLIMUS. #### [address] Bilirubin.total [Mass/volume ] in Serum or PlasmaOrdered By: Sharan Ayoub on 03-31-2025 Bilirubin [Mass/Vol] 3.7 mg/dL High 0.3-1.0 [facility] Comment on above: Samples from patient s [...] measuring Total Bilirubin. Performed By: #### C BC, CMP, TACROLIMUS. #### [address] Blood tacrolimus measurement (mass/volume)Ordered By: Sharan Ayoub on 03-31-2025 Tacrolimus (Bld) [Mass/Vol] See comment [facility] Comment on above: See report. Scanned copy available in EMR. Calcium [Mass/volume] in Ser um or PlasmaOrdered By: Sharan Ayoub on 03-31-2025 Calcium [Mass/Vol] 9.2 mg/dL Normal 8.6-10.3 [facility] Comment on above: Performed By: #### C BC, CMP, TACROLIMUS. #### [address] Carbon dioxide, total [Moles /volume] in Serum or PlasmaOrdered By: Sharan Ayoub on 03-31-2025 CO2 [Moles/Vol] 34.3 mmol/L High 21.0-31.0 [facility] Comment on above: Performed By: #### C BC, CMP, TACROLIMUS. #### [address] Chloride [Moles/volume] in S kasi or PlasmaOrdered By: Sharan Ayoub on 03-31-2025 Chloride [Moles/Vol] 99 mmol/L Normal 98-107 [facility] Comment on above: Performed By: #### C BC, CMP, TACROLIMUS. #### [address] Complete Blood Count Auto Di ffon 03-31-2025 Mean Corpuscular HGB Conc 34.1 g/dL Normal 32.5-35.6 [facility] Comment on above: Performed By: #### C BC, CMP, TACROLIMUS. #### [address] NRBC% 0.1 /100{WBC} Normal 0-0.5 [facility] Comment on above: Performed By: #### C BC, CMP, TACROLIMUS. #### [address] White Blood Count 8.7 [CFU]/mL Normal 4.1-10.5 [facility] Comment on above: Performed By: #### C BC, CMP, TACROLIMUS. #### [address] Comprehensive Metabolic Pane sarah 03-31-2025 Albumin [Mass/Vol] 3.3 g/dL Low 3.5-5.7 [facility] Comment on above: Performed By: #### C BC, CMP, TACROLIMUS. #### [address] GFR/1.73 sq M.predicted MDRD (S/P/Bld) [Vol rate/Area] mL/min/{1.73_m2} Normal [facility] Comment on above: Performed By: #### C BC, CMP, TACROLIMUS. #### [address] Creatinine [Mass/volume] in Serum or PlasmaOrdered By: Sharan Ayoub on 03-31-2025 Creatinine [Mass/Vol] 1.00 mg/dL Normal 0.70-1.30 [facility] Comment on above: Performed By: #### C BC, CMP, TACROLIMUS. #### [facility] [address] Eosinophils [#/volume] in Bl ood by Automated countOrdered By: Sharan Ayoub on 03-31-2025 Eosinophils (Bld) [#/Vol] 0.0 10*3/uL Normal 0.0-0.45 [facility] Comment on above: Performed By: #### C BC, CMP, TACROLIMUS. #### [address] Eosinophils/100 leukocytes i n Blood by Automated countOrdered By: Sharan Ayoub on 03-31-2025 Eosinophils/100 WBC (Bld) 0.2 % Normal . [facility] Comment on above: Performed By: #### C BC, CMP, TACROLIMUS. #### [address] Erythrocyte distribution wid th [Ratio] by Automated countOrdered By: Sharan Ayoub on 03-31-2025 Erythrocyte distribution width (RBC) [Ratio] 15.4 % High 12.0-14.8 [facility] Comment on above: Performed By: #### C BC, CMP, TACROLIMUS. #### [address] Erythrocytes [#/volume] in B lood by Automated countOrdered By: Sahran Ayoub on 03-31-2025 RBC (Bld) [#/Vol] 4.25 10*6/uL Normal 3.90-5.60 [facility] Comment on above: Performed By: #### C BC, CMP, TACROLIMUS. #### [place] [address] [place] Glucose [Mass/volume] in Ser um or PlasmaOrdered By: Sharan Ayoub on 03-31-2025 Glucose [Mass/Vol] 186 mg/dL High 70-100 [facility] Comment on above: ADA recommended refe rence rangeRandom Glucose Reference Range is dependent on time and content of last meal. Glucose of more than 200 mg/dL in a nonstressed, ambulatory subject supports the diagnosis of Diabetes Mellitus. Result Comment: [place] Glucose Reference Range is dependent on time and content of last meal. Glucose of more than 200 mg/dL in a nonstressed, ambulatory subject supports the diagnosis of Diabetes Mellitus. ADA recommended reference range Performed By: #### C BC, CMP, TACROLIMUS. #### [address] Hematocrit [Volume Fraction] of Blood by Automated countOrdered By: Sharan Ayoub on 03-31-2025 Hematocrit (Bld) [Volume fraction] 38.7 % Low 38.8-50.0 [facility] Comment on above: Performed By: #### C BC, CMP, TACROLIMUS. #### [address] Hemoglobin [Mass/volume] in BloodOrdered By: Sharan Ayoub on 03-31-2025 Hemoglobin (Bld) [Mass/Vol] 13.2 g/dL Normal 13.0-17.0 [facility] Comment on above: Performed By: #### C BC, CMP, TACROLIMUS. #### [place] [address] [place] Leukocytes [#/volume] correc roderick for nucleated erythrocytes in Blood by Automated counOrdered By: Sharan Ayoub on 03-31-2025 WBC corrected for nucl RBC Auto (Bld) [#/Vol] 8.7 10*3/uL 4.1-10.5 [facility] Leukocytes [#/volume] in Blo od by Automated countOrdered By: Sharan Ayoub on 03-31-2025 WBC (Bld) [#/Vol] 8.7 10*3/uL Normal 4.1-10.5 [facility] Comment on above: Performed By: #### C BC, CMP, TACROLIMUS. #### [address] Lymphocytes [#/volume] in Bl ood by Automated countOrdered By: Sharan Ayoub on 03-31-2025 Lymphocytes (Bld) [#/Vol] 1.0 10*3/uL Normal 1.00-4.8 [facility] Comment on above: Performed By: #### C BC, CMP, TACROLIMUS. #### [address] Lymphocytes/100 leukocytes i n Blood by Automated countOrdered By: Sharan Ayoub on 03-31-2025 Lymphocytes/100 WBC (Bld) 11.4 % Normal . [facility] Comment on above: Performed By: #### C BC, CMP, TACROLIMUS. #### [address] MCH [Entitic mass] by Automa roderick countOrdered By: Sharan Ayoub on 03-31-2025 MCH (RBC) [Entitic mass] 31.1 pg Normal 27.5-35.2 [facility] Comment on above: Performed By: #### C BC, CMP, TACROLIMUS. #### [address] MCHC Auto (RBC) [Mass/Vol]Or dered By: Sharan Ayoub on 03-31-2025 MCHC (RBC) [Mass/Vol] 34.1 g/dL 32.5-35.6 [facility] MCV [Entitic volume] by Auto mated countOrdered By: Sharan Ayoub on 03-31-2025 MCV (RBC) [Entitic vol] 91.0 fL Normal 83.5-101 [facility] Comment on above: Performed By: #### C BC, CMP, TACROLIMUS. #### [address] Monocytes [#/volume] in Bloo d by Automated countOrdered By: Sharan Ayoub on 03-31-2025 Monocytes (Bld) [#/Vol] 0.2 10*3/uL Normal 0.0-0.8 [facility] Comment on above: Performed By: #### C BC, CMP, TACROLIMUS. #### [facility] [address] Monocytes/100 leukocytes in Blood by Automated countOrdered By: Sharan Ayoub on 03-31-2025 Monocytes/100 WBC (Bld) 2.5 % Normal . [facility] Comment on above: Performed By: #### C BC, CMP, TACROLIMUS. #### [facility] [address] Neutrophils [#/volume] in Bl ood by Automated countOrdered By: Sharan Ayoub on 03-31-2025 Neutrophils (Bld) [#/Vol] 7.4 10*3/uL Normal 1.8-7.7 [facility] Comment on above: Performed By: #### C BC, CMP, TACROLIMUS. #### [address] Neutrophils/100 leukocytes i n Blood by Automated countOrdered By: Sharan Ayoub on 03-31-2025 Neutrophils/100 WBC (Bld) 85.3 % Normal . [facility] Comment on above: Performed By: #### C BC, CMP, TACROLIMUS. #### [address] No Panel InformationOrdered By: Sharan Ayoub on 03-31-2025 Estimated GFR (CKD-EPI) > 60.0 mL/Min [facility] Creatinine Clearance (Chem N/A [facility] Nucleated erythrocytes [Pres ence] in Blood by Automated countOrdered By: Sharan Ayoub on 03-31-2025 Nucleated RBC Auto Ql (Bld) 0.1 /100{WBC} 0-0.5 [facility] Platelet mean volume [Entiti c volume] in Blood by Automated countOrdered By: Sharan Ayoub on 03-31-2025 Platelet mean volume (Bld) [Entitic vol] 9.6 fL Normal 6.6-10.1 [facility] Comment on above: Performed By: #### C BC, CMP, TACROLIMUS. #### [address] Platelets [#/volume] in Bloo d by Automated countOrdered By: Sharan Ayoub on 03-31-2025 Platelets (Bld) [#/Vol] 124 10*3/uL Low 150-450 [facility] Comment on above: Performed By: #### C BC, CMP, TACROLIMUS. #### [address] Potassium [Moles/volume] in Serum or PlasmaOrdered By: Sharan Ayoub on 03-31-2025 Potassium [Moles/Vol] 3.4 mmol/L Low 3.5-5.1 [facility] Comment on above: Performed By: #### C BC, CMP, TACROLIMUS. #### [address] Protein [Mass/volume] in Ser um or PlasmaOrdered By: Sharan Ayoub on 03-31-2025 Protein [Mass/Vol] 6.3 g/dL Low 6.4-8.9 [facility] Comment on above: Performed By: #### C BC, CMP, TACROLIMUS. #### [address] Serum globulin measurement b y calculation (mass/volume)Ordered By: Sharan Ayoub on 03-31-2025 Globulin (S) [Mass/Vol] 3.0 g/dL [facility] Comment on above: Performed By: #### C BC, CMP, TACROLIMUS. #### [address] Serum or plasma albumin/glob ulin mass ratioOrdered By: Sharan Ayoub on 03-31-2025 Albumin/Globulin [Mass ratio] 1.1 {ratio} [facility] Comment on above: Performed By: #### C BC, CMP, TACROLIMUS. #### [address] Serum or plasma anion gap de terminationOrdered By: Sharan Ayoub on 03-31-2025 Anion gap [Moles/Vol] 8.1 mmol/L Normal 6.0-15.0 [facility] Comment on above: Performed By: #### C BC, CMP, TACROLIMUS. #### [facility] [address] [place] [address] Sodium [Moles/volume] in Ser um or PlasmaOrdered By: Sharan Ayoub on 03-31-2025 Sodium [Moles/Vol] 138 mmol/L Normal 136-145 [facility] Comment on above: Performed By: #### C BC, CMP, TACROLIMUS. #### [facility] [address] [place] [address] Tacrolimuson 03-31-2025 Tacrolimus (Bld) [Mass/Vol] 11.8 ng/mL Normal <=15.0 [facility] Comment on above: Order Comment: NOTE: Result was obtained using a chemiluminescent microparticle immunoassay (CMIA) on the [employer]er i system. Optimal therapeutic ranges for immunosuppressant drugs depend upon an individual patient's current clinical state, type of organ transplant, time post-transplant, co-administration of other immunosuppressants, and other clinical factors. The results of this test should be correlated with additional clinical and laboratory data before changes in treatment regimens are made. Performed By: #### 1 [id number] #### NORMA Cherry ([id number]) [facility] ([facility]) [address] [place] [address] Tacrolimus (Transplant) No C hgon 03-31-2025 Tacrolimus (Transplant) No Chg Normal [facility] Comment on above: Result Comment: See report. Scanned copy available in EMR. PERFORMED BY: [place] [address] PATHOLOGIST LABOR EXPEDITER VALERIE STODDARD M.D. Performed By: #### C BC, CMP, TACROLIMUS. #### [facility] [address] [place] [address] Urea nitrogen [Mass/volume] in Serum or PlasmaOrdered By: Sharan Ayoub on 03-31-2025 Urea nitrogen [Mass/Vol] 26 mg/dL High 7-25 [facility] Comment on above: Performed By: #### C BC, CMP, TACROLIMUS. #### [facility] [address] [place] [address] [place] Alanine aminotransferase [En zymatic activity/volume] in Serum or PlasmaOrdered By: Sharan Ayoub on 03-04-2025 ALT [Catalytic activity/Vol] Alanine aminotransferase [Enzymatic activity/volume] in Serum or Plasma High 7-52 [facility] ALT [Catalytic activity/Vol] 91 U/L [facility] 752 [facility] Comment on above: Performed By: #### C BC, CMP, TACROLIMUS. #### [facility] [address] [place] [address] [place] Albumin [Mass/volume] in Ser um or Plasma by Bromocresol green (BCG) dye binding methoOrdered By: Sharan Ayoub on 03-04-2025 Albumin BCG dye [Mass/Vol] Albumin [Mass/volume] in Serum or Plasma by Bromocresol green (BCG) dye binding metho Low 3.5-5.7 [facility] Albumin BCG dye [Mass/Vol] 3.3 g/dL Low 3.5-5.7 [facility] Alkaline phosphatase [Enzyma tic activity/volume] in Serum or PlasmaOrdered By: Sharan Ayoub on 03-04-2025 ALP [Catalytic activity/Vol] Alkaline phosphatase [Enzymatic activity/volume] in Serum or Plasma [facility] [address] [facility] ALP [Catalytic activity/Vol] 535 U/L [facility] 34-104 [facility] Comment on above: Result Comment: PERF ORMED BY: [place] [address] PATHOLOGIST LABOR EXPEDITER VALERIE STODDARD M.D. Performed By: #### C BC, CMP, TACROLIMUS. #### [facility] [address] [place] [address] [place] Aspartate aminotransferase [ Enzymatic activity/volume] in Serum or PlasmaOrdered By: Sharan Ayoub on 03-04-2025 AST [Catalytic activity/Vol] Aspartate aminotransferase [Enzymatic activity/volume] in Serum or Plasma [facility] 13-39 [facility] AST [Catalytic activity/Vol] 64 U/L [facility] 1339 [facility] Comment on above: Performed By: #### C BC, CMP, TACROLIMUS. #### [facility] [address] Basophils Auto (Bld) [#/Vol] Ordered By: Sharan Ayoub on 03-04-2025 Basophils (Bld) [#/Vol] Automated basophil count 0.0-0.2 [facility] Basophils [#/volume] in Bloo d by Automated countOrdered By: Sharan Ayoub on 03-04-2025 Basophils (Bld) [#/Vol] 0.1 10*3/uL Normal 0.0-0.2 [facility] Comment on above: Result Comment: PERF ORMED BY: [address] [place] [address] PATHOLOGIST LABOR EXPEDITER VALERIE STODDARD M.D. Performed By: #### C BC, CMP, TACROLIMUS. #### [facility] [address] Basophils/100 WBC Auto (Bld) Ordered By: Sharan Ayoub on 03-04-2025 Basophils/100 WBC (Bld) Automated basophil % . [facility] Basophils/100 leukocytes in Blood by Automated countOrdered By: Sharan Ayoub on 03-04-2025 Basophils/100 WBC (Bld) 0.6 % Normal . [facility] Comment on above: Performed By: #### C BC, CMP, TACROLIMUS. #### [facility] [address] Bilirubin.total [Mass/volume ] in Serum or PlasmaOrdered By: Sharan Ayoub on 03-04-2025 Bilirubin [Mass/Vol] Bilirubin.total [Mass/volume] in Serum or Plasma High 0.3-1.0 [facility] Comment on above: Samples from patient s who have taken Naproxen have shown spurious elevation in Total Bilirubin levels. A metabolite of Naproxen, O-desmethylnaproxen, has been shown to interfere with the Jenlatriciaik-Uriel method for measuring Total Bilirubin. Bilirubin [Mass/Vol] 4.8 mg/dL High 0.3-1.0 [facility] Comment on above: Samples from patient s [...] measuring Total Bilirubin. Performed By: #### C BC, CMP, TACROLIMUS. #### [address] Blood tacrolimus measurement (mass/volume)Ordered By: Sharan Ayoub on 03-04-2025 Tacrolimus (Bld) [Mass/Vol] Sent to ref lab [facility] Calcium [Mass/volume] in Ser um or PlasmaOrdered By: Sharan Ayoub on 03-04-2025 Calcium [Mass/Vol] Calcium [Mass/volume ] in Serum or Plasma 8.6-10.3 [facility] Calcium [Mass/Vol] 9.0 mg/dL Normal 8.6-10.3 [facility] Comment on above: Performed By: #### C VARGHESE CMP, TACROLIMUS. #### [address] Carbon dioxide, total [Moles /volume] in Serum or PlasmaOrdered By: Sharan Ayoub on 03-04-2025 CO2 [Moles/Vol] Carbon dioxide, tota l [Moles/volume] in Serum or Plasma 21.0-31.0 [facility] CO2 [Moles/Vol] 23.0 mmol/L Normal 21.0-31.0 [facility] Comment on above: Performed By: #### C VARGHESE, CMP, TACROLIMUS. #### [address] Chloride [Moles/volume] in S kasi or PlasmaOrdered By: Sharan Ayoub on 03-04-2025 Chloride [Moles/Vol] Chloride [Moles/vol ume] in Serum or Plasma 98-107 [facility] Chloride [Moles/Vol] 99 mmol/L Normal 98-107 [facility] Comment on above: Performed By: #### C BC, CMP, TACROLIMUS. #### [address] Complete Blood Count Auto Di ffon 03-04-2025 Mean Corpuscular HGB Conc 34.2 g/dL Normal 32.5-35.6 [facility] Comment on above: Performed By: #### C BC, CMP, TACROLIMUS. #### [address] NRBC% 0.1 /100{WBC} Normal 0-0.5 [facility] Comment on above: Performed By: #### C BC, CMP, TACROLIMUS. #### [address] Comprehensive Metabolic Pane sarah 03-04-2025 Albumin [Mass/Vol] 3.3 g/dL Low 3.5-5.7 [facility] Comment on above: Performed By: #### C BC, CMP, TACROLIMUS. #### [address] GFR/1.73 sq M.predicted MDRD (S/P/Bld) [Vol rate/Area] mL/min/{1.73_m2} Normal [facility] Comment on above: Performed By: #### C BC, CMP, TACROLIMUS. #### [address] Creatinine [Mass/volume] in Serum or PlasmaOrdered By: Sharan Ayoub on 03-04-2025 Creatinine [Mass/Vol] Creatinine [Mass/v olume] in Serum or Plasma 0.70-1.30 [facility] Creatinine [Mass/Vol] 1.10 mg/dL Normal 0.70-1.30 [facility] Comment on above: Performed By: #### C BC, CMP, TACROLIMUS. #### [address] Eosinophils Auto (Bld) [#/Vo l]Ordered By: Sharan Ayoub on 03-04-2025 Eosinophils (Bld) [#/Vol] Automated eosinophil count 0.0-0.45 [facility] Eosinophils [#/volume] in Bl ood by Automated countOrdered By: Sharan Ayoub on 03-04-2025 Eosinophils (Bld) [#/Vol] 0.1 10*3/uL Normal 0.0-0.45 [facility] Comment on above: Performed By: #### C BC, CMP, TACROLIMUS. #### [facility] [address] Eosinophils/100 WBC Auto (Bl d)Ordered By: Sharan Ayoub on 03-04-2025 Eosinophils/100 WBC (Bld) Automated eosinophil % . [facility] Eosinophils/100 leukocytes i n Blood by Automated countOrdered By: Sharan Ayoub on 03-04-2025 Eosinophils/100 WBC (Bld) 0.5 % Normal . [facility] Comment on above: Performed By: #### C BC, CMP, TACROLIMUS. #### [address] Erythrocyte distribution wid th Auto (RBC) [Ratio]Ordered By: Sharan Ayoub on 03-04-2025 Erythrocyte distribution width (RBC) [Ratio] Erythrocyte distribution width [Ratio] by Automated count 12.0-14.8 [facility] Erythrocyte distribution wid th [Ratio] by Automated countOrdered By: Sharan Ayoub on 03-04-2025 Erythrocyte distribution width (RBC) [Ratio] 14.5 % Normal 12.0-14.8 [facility] Comment on above: Performed By: #### C BC, CMP, TACROLIMUS. #### [address] Erythrocytes [#/volume] in B lood by Automated countOrdered By: Sharan Ayoub on 03-04-2025 RBC (Bld) [#/Vol] 4.76 10*6/uL Normal 3.90-5.60 [facility] Comment on above: Performed By: #### C BC, CMP, TACROLIMUS. #### [facility] [address] [place] [address] [place] Globulin Calc (S) [Mass/Vol] Ordered By: Sharan Ayoub on 03-04-2025 Globulin (S) [Mass/Vol] Serum globulin measurement by calculation (mass/volume) [facility] Glucose [Mass/volume] in Ser um or PlasmaOrdered By: Sharan Ayoub on 03-04-2025 Glucose [Mass/Vol] Glucose [Mass/volume ] in Serum or Plasma High 70-100 [facility] Comment on above: ADA recommended refe rence rangeRandom Glucose Reference Range is dependent on time and content of last meal. Glucose of more than 200 mg/dL in a nonstressed, ambulatory subject supports the diagnosis of Diabetes Mellitus. Glucose [Mass/Vol] 333 mg/dL High 70-100 [facility] Comment on above: ADA recommended refe rence rangeRandom Glucose Reference Range is dependent on time and content of last meal. Glucose of more than 200 mg/dL in a nonstressed, ambulatory subject supports the diagnosis of Diabetes Mellitus. Result Comment: [place] Glucose Reference Range is dependent on time and content of last meal. Glucose of more than 200 mg/dL in a nonstressed, ambulatory subject supports the diagnosis of Diabetes Mellitus. ADA recommended reference range Performed By: #### C BC, CMP, TACROLIMUS. #### [facility] [address] Hematocrit Auto (Bld) [Volum e fraction]Ordered By: hSaran Ayoub on 03-04-2025 Hematocrit (Bld) [Volume fraction] Hematocrit [Volume Fraction] of Blood by Automated count 38.8-50.0 [facility] Hematocrit [Volume Fraction] of Blood by Automated countOrdered By: Sharan Ayoub on 03-04-2025 Hematocrit (Bld) [Volume fraction] 43.3 % Normal 38.8-50.0 [facility] Comment on above: Performed By: #### C BC, CMP, TACROLIMUS. #### [address] Hemoglobin [Mass/volume] in BloodOrdered By: Sharan Ayoub on 03-04-2025 Hemoglobin (Bld) [Mass/Vol] Hemoglobin [Mass/volume] in Blood 13.0-17.0 [facility] Hemoglobin (Bld) [Mass/Vol] 14.8 g/dL Normal 13.0-17.0 [facility] Comment on above: Performed By: #### C BC, CMP, TACROLIMUS. #### [facility] [address] Leukocytes [#/volume] correc roderick for nucleated erythrocytes in Blood by Automated counOrdered By: Sharan Ayoub on 03-04-2025 WBC corrected for nucl RBC Auto (Bld) [#/Vol] Leukocytes [#/volume] corrected for nucleated erythrocytes in Blood by Automated coun High 4.1-10.5 [facility] WBC corrected for nucl RBC Auto (Bld) [#/Vol] 16.3 10*3/uL High 4.1-10.5 [facility] Leukocytes [#/volume] in Blo od by Automated countOrdered By: Sharan Ayoub on 03-04-2025 WBC (Bld) [#/Vol] 16.3 10*3/uL High 4.1-10.5 [facility] Comment on above: Performed By: #### C BC, CMP, TACROLIMUS. #### [facility] [address] Lymphocytes Auto (Bld) [#/Vo l]Ordered By: Sharan Ayoub on 03-04-2025 Lymphocytes (Bld) [#/Vol] Lymphocytes [#/volume] in Blood by Automated count 1.00-4.8 [facility] Lymphocytes [#/volume] in Bl ood by Automated countOrdered By: Sharan Ayoub on 03-04-2025 Lymphocytes (Bld) [#/Vol] 3.6 10*3/uL Normal 1.00-4.8 [facility] Comment on above: Performed By: #### C BC, CMP, TACROLIMUS. #### [facility] [address] Lymphocytes/100 WBC Auto (Bl d)Ordered By: Sharan Ayoub on 03-04-2025 Lymphocytes/100 WBC (Bld) Lymphocytes/100 leukocytes in Blood by Automated count . [facility] Lymphocytes/100 leukocytes i n Blood by Automated countOrdered By: Sharan Ayoub on 03-04-2025 Lymphocytes/100 WBC (Bld) 22.2 % Normal . [facility] Comment on above: Performed By: #### C BC, CMP, TACROLIMUS. #### [facility] [address] MCH Auto (RBC) [Entitic mass ]Ordered By: Sharan Ayoub on 03-04-2025 MCH (RBC) [Entitic mass] MCH [Entitic mass] by Automated count 27.5-35.2 [facility] MCH [Entitic mass] by Automa roderick countOrdered By: Sharan Ayoub on 03-04-2025 MCH (RBC) [Entitic mass] 31.1 pg Normal 27.5-35.2 [facility] Comment on above: Performed By: #### C BC, CMP, TACROLIMUS. #### [facility] [address] [place] [address] MCHC Auto (RBC) [Mass/Vol]Or dered By: Sharan Ayoub on 03-04-2025 MCHC (RBC) [Mass/Vol] MCHC [Mass/volume] by Automated count 32.5-35.6 [facility] MCHC (RBC) [Mass/Vol] 34.2 g/dL 32.5-35.6 [facility] MCV Auto (RBC) [Entitic vol] Ordered By: Sharan Ayoub on 03-04-2025 MCV (RBC) [Entitic vol] MCV [Entitic volume] by Automated count 83.5-101 [facility] MCV [Entitic volume] by Auto mated countOrdered By: Sharan Ayoub on 03-04-2025 MCV (RBC) [Entitic vol] 91.0 fL Normal 83.5-101 [facility] Comment on above: Performed By: #### C BC, CMP, TACROLIMUS. #### [facility] [address] [place] [address] Monocytes Auto (Bld) [#/Vol] Ordered By: Sharan Ayoub on 03-04-2025 Monocytes (Bld) [#/Vol] Automated blood monocyte count High 0.0-0.8 [facility] Monocytes [#/volume] in Bloo d by Automated countOrdered By: Sharan Ayoub on 03-04-2025 Monocytes (Bld) [#/Vol] 1.1 10*3/uL High 0.0-0.8 [facility] Comment on above: Performed By: #### C BC, CMP, TACROLIMUS. #### [facility] [address] [place] [address] [place] Monocytes/100 WBC Auto (Bld) Ordered By: Sharan Ayoub on 03-04-2025 Monocytes/100 WBC (Bld) Automated monocyte % . [facility] Monocytes/100 leukocytes in Blood by Automated countOrdered By: Sharan Ayoub on 03-04-2025 Monocytes/100 WBC (Bld) 6.6 % Normal . [facility] Comment on above: Performed By: #### C BC, CMP, TACROLIMUS. #### [facility] [address] [place] [address] [place] Neutrophils Auto (Bld) [#/Vo l]Ordered By: Sharan Ayoub on 03-04-2025 Neutrophils (Bld) [#/Vol] Neutrophils [#/volume] in Blood by Automated count High 1.8-7.7 [facility] Neutrophils [#/volume] in Bl ood by Automated countOrdered By: Sharan Ayoub on 03-04-2025 Neutrophils (Bld) [#/Vol] 11.5 10*3/uL High 1.8-7.7 [facility] Comment on above: Performed By: #### C BC, CMP, TACROLIMUS. #### [facility] [address] [place] [address] [place] Neutrophils/100 WBC Auto (Bl d)Ordered By: Sharan Ayoub on 03-04-2025 Neutrophils/100 WBC (Bld) Automated neutrophil % . [facility] Neutrophils/100 leukocytes i n Blood by Automated countOrdered By: Sharan Ayoub on 03-04-2025 Neutrophils/100 WBC (Bld) 70.1 % Normal . [facility] Comment on above: Performed By: #### C BC, CMP, TACROLIMUS. #### [facility] [address] [place] [address] No Panel InformationOrdered By: Shraan Ayoub on 03-04-2025 Estimated GFR (CKD-EPI) > 60.0 mL/Min [facility] Creatinine Clearance (Chem N/A [facility] Nucleated erythrocytes [Pres ence] in Blood by Automated countOrdered By: Sharan Ayoub on 03-04-2025 Nucleated RBC Auto Ql (Bld) Nucleated erythrocytes [Presence] in Blood by Automated count 0-0.5 [facility] Nucleated RBC Auto Ql (Bld) 0.1 /100{WBC} 0-0.5 [facility] Platelet mean volume Auto (B ld) [Entitic vol]Ordered By: Sharan Ayoub on 03-04-2025 Platelet mean volume (Bld) [Entitic vol] Platelet mean volume [Entitic volume] in Blood by Automated count High 6.6-10.1 [facility] Platelet mean volume [Entiti c volume] in Blood by Automated countOrdered By: Sharan Ayoub on 03-04-2025 Platelet mean volume (Bld) [Entitic vol] 11.0 fL High 6.6-10.1 [facility] Comment on above: Performed By: #### C BC, CMP, TACROLIMUS. #### [facility] [address] [place] [address] Platelets Auto (Bld) [#/Vol] Ordered By: Sharan Ayoub on 03-04-2025 Platelets (Bld) [#/Vol] Platelets [#/volume] in Blood by Automated count 150-450 [facility] Platelets [#/volume] in Bloo d by Automated countOrdered By: Sharan Ayoub on 03-04-2025 Platelets (Bld) [#/Vol] 321 10*3/uL Normal 150-450 [facility] Comment on above: Performed By: #### C BC, CMP, TACROLIMUS. #### [facility] [address] [place] [address] Potassium [Moles/volume] in Serum or PlasmaOrdered By: Sharan Ayoub on 03-04-2025 Potassium [Moles/Vol] Potassium [Moles/v olume] in Serum or Plasma 3.5-5.1 [facility] Potassium [Moles/Vol] 3.7 mmol/L Normal 3.5-5.1 [facility] Comment on above: Performed By: #### C BC, CMP, TACROLIMUS. #### [facility] [address] [place] [address] Protein [Mass/volume] in Ser um or PlasmaOrdered By: Sharan Ayoub on 03-04-2025 Protein [Mass/Vol] Protein [Mass/volume ] in Serum or Plasma 6.4-8.9 [facility] Protein [Mass/Vol] 7.1 g/dL Normal 6.4-8.9 [facility] Comment on above: Performed By: #### C BC, CMP, TACROLIMUS. #### [facility] [address] [place] [address] RBC Auto (Bld) [#/Vol]Ordere d By: Sharan Ayoub on 03-04-2025 RBC (Bld) [#/Vol] Erythrocytes [#/volu me] in Blood by Automated count 3.90-5.60 [facility] Serum globulin measurement b y calculation (mass/volume)Ordered By: Sharan Ayoub on 03-04-2025 Globulin (S) [Mass/Vol] 3.8 g/dL Normal [facility] Comment on above: Performed By: #### C BC, CMP, TACROLIMUS. #### [facility] [address] [place] [address] Serum or plasma albumin/glob ulin mass ratioOrdered By: Sharan Ayoub on 03-04-2025 Albumin/Globulin [Mass ratio] Serum or plasma albumin/globulin mass ratio [facility] Albumin/Globulin [Mass ratio] 0.9 {ratio} [facility] Comment on above: Performed By: #### C BC, CMP, TACROLIMUS. #### [facility] [address] [place] [address] Serum or plasma anion gap de terminationOrdered By: Sharan Ayoub on 03-04-2025 Anion gap [Moles/Vol] Serum or plasma an ion gap determination High 6.0-15.0 [facility] Anion gap [Moles/Vol] 18.7 mmol/L High 6.0-15.[address] [facility] Comment on above: Performed By: #### C BC, CMP, TACROLIMUS. #### [address] Sodium [Moles/volume] in Ser um or PlasmaOrdered By: Sharan Ayoub on 03-04-2025 Sodium [Moles/Vol] Sodium [Moles/volume ] in Serum or Plasma 136-145 [facility] Sodium [Moles/Vol] 137 mmol/L Normal 136-145 [facility] Comment on above: Performed By: #### C BC, CMP, TACROLIMUS. #### [address] Tacrolimuson 03-04-2025 Tacrolimus (Bld) [Mass/Vol] 8.9 ng/mL Normal <=15.0 [facility] Comment on above: Order Comment: NOTE: Result was obtained using a chemiluminescent microparticle immunoassay (CMIA) on the [employer]er i system. Optimal therapeutic ranges for immunosuppressant drugs depend upon an individual patient's current clinical state, type of organ transplant, time post-transplant, co-administration of other immunosuppressants, and other clinical factors. The results of this test should be correlated with additional clinical and laboratory data before changes in treatment regimens are made. Performed By: #### 1 [id number] #### NORMA Cherry ([id number]) [facility] ([facility]) [id number] [place] [address] Tacrolimus (Transplant) No C hgon 03-04-2025 Tacrolimus (Transplant) No Chg Sent to Ref Lab Normal [facility] Comment on above: Result Comment: PERF ORMED BY: [place] [address] PATHOLOGIST LABOR EXPEDITER VALERIE STODDARD M.D. Performed By: #### C BC, CMP, TACROLIMUS. #### [address] Urea nitrogen [Mass/volume] in Serum or PlasmaOrdered By: Sharan Ayoub on 03-04-2025 Urea nitrogen [Mass/Vol] Urea nitrogen [Mass/volume] in Serum or Plasma 04-25 [facility] Urea nitrogen [Mass/Vol] 19 mg/dL Normal 04-25 [facility] Comment on above: Performed By: #### C BC, CMP, TACROLIMUS. #### [facility] [address] WBC Auto (Bld) [#/Vol]Ordere d By: Sharan Ayoub on 03-04-2025 WBC (Bld) [#/Vol] Leukocytes [#/volume ] in Blood by Automated count High 4.1-10.5 [facility] Alanine aminotransferase [En zymatic activity/volume] in Serum or PlasmaOrdered By: Sharan Ayoub on 01-31-2025 ALT [Catalytic activity/Vol] Alanine aminotransferase [Enzymatic activity/volume] in Serum or Plasma High [facility] ALT [Catalytic activity/Vol] 101 U/L [address] Comment on above: Performed By: #### T ACROLIMUS., CMP, MG, CBC #### [facility] [address] Albumin [Mass/volume] in Ser um or Plasma by Bromocresol green (BCG) dye binding methoOrdered By: Sharan Ayoub on 01-31-2025 Albumin BCG dye [Mass/Vol] Albumin [Mass/volume] in Serum or Plasma by Bromocresol green (BCG) dye binding metho Low 3.5-5.7 [facility] Albumin BCG dye [Mass/Vol] 3.2 g/dL Low 3.5-5.7 [facility] Alkaline phosphatase [Enzyma tic activity/volume] in Serum or PlasmaOrdered By: Sharan Ayoub on 01-31-2025 ALP [Catalytic activity/Vol] Alkaline phosphatase [Enzymatic activity/volume] in Serum or Plasma High [address] [facility] ALP [Catalytic activity/Vol] 319 U/L [facility] [address] Comment on above: Performed By: #### T ACROLIMUS., CMP, MG, CBC #### [facility] [address] Aspartate aminotransferase [ Enzymatic activity/volume] in Serum or PlasmaOrdered By: Sharan Ayoub on 01-31-2025 AST [Catalytic activity/Vol] Aspartate aminotransferase [Enzymatic activity/volume] in Serum or Plasma High 1339 [facility] AST [Catalytic activity/Vol] 102 U/L High 13-39 [facility] Comment on above: Performed By: #### T ACROLIMUS., CMP, MG, CBC #### [facility] [address] Basophils Auto (Bld) [#/Vol] Ordered By: Sharan Ayoub on 01-31-2025 Basophils (Bld) [#/Vol] Automated basophil count 0.0-0.2 [facility] Basophils [#/volume] in Bloo d by Automated countOrdered By: Sharan Ayoub on 01-31-2025 Basophils (Bld) [#/Vol] 0.1 10*3/uL Normal 0.0-0.2 [facility] Comment on above: Result Comment: PERF ORMED BY: [address] [place] [address] PATHOLOGIST LABOR EXPEDITER XI COLON M.D. Performed By: #### T ACROLIMUS., CMP, MG, CBC #### [address] Basophils/100 WBC Auto (Bld) Ordered By: Sharan Ayoub on 01-31-2025 Basophils/100 WBC (Bld) Automated basophil % . [facility] Basophils/100 leukocytes in Blood by Automated countOrdered By: Sharan Ayoub on 01-31-2025 Basophils/100 WBC (Bld) 1.4 % Normal . [facility] Comment on above: Performed By: #### T ACROLIMUS., CMP, MG, CBC #### [facility] [address] Bilirubin.total [Mass/volume ] in Serum or PlasmaOrdered By: Sharan Ayoub on 01-31-2025 Bilirubin [Mass/Vol] Bilirubin.total [Mass/volume] in Serum or Plasma High 0.3-1.0 [facility] Comment on above: Samples from patient s who have taken Naproxen have shown spurious elevation in Total Bilirubin levels. A metabolite of Naproxen, O-desmethylnaproxen, has been shown to interfere with the Jendrassik-Grof method for measuring Total Bilirubin. Bilirubin [Mass/Vol] 3.4 mg/dL High 0.3-1.0 [facility] Comment on above: Samples from patient s [...] Bilirubin. Performed By: #### T ACROLIMUS., CMP, MG, CBC #### [facility] [address] Blood tacrolimus measurement (mass/volume)Ordered By: Sharan Ayoub on 01-31-2025 Tacrolimus (Bld) [Mass/Vol] Tacrolimus [Mass/volume] in Blood [facility] Tacrolimus (Bld) [Mass/Vol] Sent to ref lab [facility] Calcium [Mass/volume] in Ser um or PlasmaOrdered By: Sharan Ayoub on 01-31-2025 Calcium [Mass/Vol] Calcium [Mass/volume ] in Serum or Plasma 8.6-10.3 [facility] Calcium [Mass/Vol] 9.4 mg/dL Normal 8.6-10.3 [facility] Comment on above: Performed By: #### T ACROLIMUS., CMP, MG, CBC #### [facility] [address] Carbon dioxide, total [Moles /volume] in Serum or PlasmaOrdered By: Sharan Ayoub on 01-31-2025 CO2 [Moles/Vol] Carbon dioxide, tota l [Moles/volume] in Serum or Plasma High 21.0-31.0 [facility] CO2 [Moles/Vol] 33.9 mmol/L High 21.0-31.0 [facility] Comment on above: Performed By: #### T ACROLIMUS., CMP, MG, CBC #### [address] Chloride [Moles/volume] in S kasi or PlasmaOrdered By: Sharan Ayoub on 01-31-2025 Chloride [Moles/Vol] Chloride [Moles/vol ume] in Serum or Plasma 98-107 [facility] Chloride [Moles/Vol] 100 mmol/L Normal 98-107 [facility] Comment on above: Performed By: #### T ACROLIMUS., CMP, MG, CBC #### [address] Complete Blood Count Auto Di ffon 01-31-2025 Mean Corpuscular HGB Conc 34.7 g/dL Normal 32.5-35.6 [facility] Comment on above: Performed By: #### T ACROLIMUS., CMP, MG, CBC #### [address] NRBC% 0.1 /100{WBC} Normal 0-0.5 [facility] Comment on above: Performed By: #### T ACROLIMUS., CMP, MG, CBC #### [address] Comprehensive Metabolic Pane sarah 01-31-2025 Albumin [Mass/Vol] 3.2 g/dL Low 3.5-5.7 [facility] Comment on above: Performed By: #### T ACROLIMUS., CMP, MG, CBC #### [address] GFR/1.73 sq M.predicted MDRD (S/P/Bld) [Vol rate/Area] mL/min/{1.73_m2} Normal [facility] Comment on above: Performed By: #### T ACROLIMUS., CMP, MG, CBC #### [address] Creatinine [Mass/volume] in Serum or PlasmaOrdered By: Sharan Ayoub on 01-31-2025 Creatinine [Mass/Vol] Creatinine [Mass/v olume] in Serum or Plasma 0.70-1.30 [facility] Creatinine [Mass/Vol] 1.01 mg/dL Normal 0.70-1.30 [facility] Comment on above: Performed By: #### T ACROLIMUS., CMP, MG, CBC #### [facility] [address] Eosinophils Auto (Bld) [#/Vo l]Ordered By: Sharan Ayoub on 01-31-2025 Eosinophils (Bld) [#/Vol] Automated eosinophil count 0.0-0.45 [facility] Eosinophils [#/volume] in Bl ood by Automated countOrdered By: Sharan Ayoub on 01-31-2025 Eosinophils (Bld) [#/Vol] 0.1 10*3/uL Normal 0.0-0.45 [facility] Comment on above: Performed By: #### T ACROLIMUS., CMP, MG, CBC #### [facility] [address] [place] [address] [place] Eosinophils/100 WBC Auto (Bl d)Ordered By: Sharan Ayoub on 01-31-2025 Eosinophils/100 WBC (Bld) Automated eosinophil % . [facility] Eosinophils/100 leukocytes i n Blood by Automated countOrdered By: Sharan Ayoub on 01-31-2025 Eosinophils/100 WBC (Bld) 0.8 % Normal . [facility] Comment on above: Performed By: #### T ACROLIMUS., CMP, MG, CBC #### [facility] [address] [place] [address] [place] Erythrocyte distribution wid th Auto (RBC) [Ratio]Ordered By: Sharan Ayoub on 01-31-2025 Erythrocyte distribution width (RBC) [Ratio] Erythrocyte distribution width [Ratio] by Automated count High 12.0-14.8 [facility] Erythrocyte distribution wid th [Ratio] by Automated countOrdered By: Sharan Ayoub on 01-31-2025 Erythrocyte distribution width (RBC) [Ratio] 15.1 % High 12.0-14.8 [facility] Comment on above: Performed By: #### T ACROLIMUS., CMP, MG, CBC #### [facility] [address] Erythrocytes [#/volume] in B lood by Automated countOrdered By: Sharan Ayoub on 01-31-2025 RBC (Bld) [#/Vol] 4.65 10*6/uL Normal 3.90-5.60 [facility] Comment on above: Performed By: #### T ACROLIMUS., CMP, MG, CBC #### [facility] [address] Globulin Calc (S) [Mass/Vol] Ordered By: Sharan Ayoub on 01-31-2025 Globulin (S) [Mass/Vol] Serum globulin measurement by calculation (mass/volume) [facility] Glucose [Mass/volume] in Ser um or PlasmaOrdered By: Sharan Ayoub on 01-31-2025 Glucose [Mass/Vol] Glucose [Mass/volume ] in Serum or Plasma 70-100 [facility] Comment on above: ADA recommended refe rence rangeRandom Glucose Reference Range is dependent on time and content of last meal. Glucose of more than 200 mg/dL in a nonstressed, ambulatory subject supports the diagnosis of Diabetes Mellitus. Glucose [Mass/Vol] 84 mg/dL Normal 70-100 [facility] Comment on above: ADA recommended refe rence rangeRandom Glucose Reference Range is dependent on time and content of last meal. Glucose of more than 200 mg/dL in a nonstressed, ambulatory subject supports the diagnosis of Diabetes Mellitus. Result Comment: [place] om Glucose Reference Range is dependent on time and content of last meal. Glucose of more than 200 mg/dL in a nonstressed, ambulatory subject supports the diagnosis of Diabetes Mellitus. ADA recommended reference range Performed By: #### T ACROLIMUS., CMP, MG, CBC #### [facility] [address] Hematocrit Auto (Bld) [Volum e fraction]Ordered By: Sharan Ayoub on 01-31-2025 Hematocrit (Bld) [Volume fraction] Hematocrit [Volume Fraction] of Blood by Automated count 38.8-50.0 [facility] Hematocrit [Volume Fraction] of Blood by Automated countOrdered By: Sharan Ayoub on 01-31-2025 Hematocrit (Bld) [Volume fraction] 42.0 % Normal 38.8-50.0 [facility] Comment on above: Performed By: #### T ACROLIMUS., CMP, MG, CBC #### [facility] [address] Hemoglobin [Mass/volume] in BloodOrdered By: Sharan Ayoub on 01-31-2025 Hemoglobin (Bld) [Mass/Vol] Hemoglobin [Mass/volume] in Blood 13.0-17.0 [facility] Hemoglobin (Bld) [Mass/Vol] 14.6 g/dL Normal 13.0-17.0 [facility] Comment on above: Performed By: #### T ACROLIMUS., CMP, MG, CBC #### [facility] [address] Leukocytes [#/volume] correc roderick for nucleated erythrocytes in Blood by Automated counOrdered By: Sharan Ayoub on 01-31-2025 WBC corrected for nucl RBC Auto (Bld) [#/Vol] Leukocytes [#/volume] corrected for nucleated erythrocytes in Blood by Automated coun High 4.1-10.5 [facility] WBC corrected for nucl RBC Auto (Bld) [#/Vol] 10.8 10*3/uL High 4.1-10.5 [facility] Leukocytes [#/volume] in Blo od by Automated countOrdered By: Sharan Ayoub on 01-31-2025 WBC (Bld) [#/Vol] 10.8 10*3/uL [facility] 4.1-10.5 [facility] Comment on above: Performed By: #### T ACROLIMUS., CMP, MG, CBC #### [facility] [address] Lymphocytes Auto (Bld) [#/Vo l]Ordered By: Sharan Ayoub on 01-31-2025 Lymphocytes (Bld) [#/Vol] Lymphocytes [#/volume] in Blood by Automated count 1.00-4.8 [facility] Lymphocytes [#/volume] in Bl ood by Automated countOrdered By: Sharan Ayoub on 01-31-2025 Lymphocytes (Bld) [#/Vol] 2.9 10*3/uL Normal 1.00-4.8 [facility] Comment on above: Performed By: #### T ACROLIMUS., CMP, MG, CBC #### [facility] [address] Lymphocytes/100 WBC Auto (Bl d)Ordered By: Sharan Ayoub on 01-31-2025 Lymphocytes/100 WBC (Bld) Lymphocytes/100 leukocytes in Blood by Automated count . [facility] Lymphocytes/100 leukocytes i n Blood by Automated countOrdered By: Sharan Ayoub on 01-31-2025 Lymphocytes/100 WBC (Bld) 26.4 % Normal . [facility] Comment on above: Performed By: #### T ACROLIMUS., CMP, MG, CBC #### [facility] [address] MCH Auto (RBC) [Entitic mass ]Ordered By: Sharan Ayoub on 01-31-2025 MCH (RBC) [Entitic mass] MCH [Entitic mass] by Automated count 27.5-35.2 [facility] MCH [Entitic mass] by Automa roderick countOrdered By: Sharan Ayoub on 01-31-2025 MCH (RBC) [Entitic mass] 31.3 pg Normal 27.5-35.2 [facility] Comment on above: Performed By: #### T ACROLIMUS., CMP, MG, CBC #### [facility] [address] [place] [address] MCHC Auto (RBC) [Mass/Vol]Or dered By: Sharan Ayoub on 01-31-2025 MCHC (RBC) [Mass/Vol] MCHC [Mass/volume] by Automated count 32.5-35.6 [facility] MCHC (RBC) [Mass/Vol] 34.7 g/dL 32.5-35.6 [facility] MCV Auto (RBC) [Entitic vol] Ordered By: Sharan Ayoub on 01-31-2025 MCV (RBC) [Entitic vol] MCV [Entitic volume] by Automated count 83.5-101 [facility] MCV [Entitic volume] by Auto mated countOrdered By: Sharan Ayoub on 01-31-2025 MCV (RBC) [Entitic vol] 90.3 fL Normal 83.5-101 [facility] Comment on above: Performed By: #### T ACROLIMUS., CMP, MG, CBC #### [facility] [address] [place] [address] Magnesium [Mass/volume] in S kasi or PlasmaOrdered By: Sharan Ayoub on 01-31-2025 Magnesium [Mass/Vol] Magnesium [Mass/vol ume] in Serum or Plasma Low 1.9-2.7 [facility] Magnesium [Mass/Vol] 1.5 mg/dL Low 1.9-2.7 [facility] Comment on above: Result Comment: PERF ORMED BY: [place] [address] PATHOLOGIST LABOR EXPEDITER XI COLON M.D. Performed By: #### T ACROLIMUS., CMP, MG, CBC #### [facility] [address] [place] [address] Monocytes Auto (Bld) [#/Vol] Ordered By: Sharan Ayoub on 01-31-2025 Monocytes (Bld) [#/Vol] Automated blood monocyte count High 0.0-0.8 [facility] Monocytes [#/volume] in Bloo d by Automated countOrdered By: Sharan Ayoub on 01-31-2025 Monocytes (Bld) [#/Vol] 1.0 10*3/uL High 0.0-0.8 [facility] Comment on above: Performed By: #### T ACROLIMUS., CMP, MG, CBC #### [facility] [address] [place] [address] [place] Monocytes/100 WBC Auto (Bld) Ordered By: Sharan Ayoub on 01-31-2025 Monocytes/100 WBC (Bld) Automated monocyte % . [facility] Monocytes/100 leukocytes in Blood by Automated countOrdered By: Sharan Ayoub on 01-31-2025 Monocytes/100 WBC (Bld) 8.9 % Normal . [facility] Comment on above: Performed By: #### T ACROLIMUS., CMP, MG, CBC #### [facility] [address] [place] [address] Neutrophils Auto (Bld) [#/Vo l]Ordered By: Sharan Ayoub on 01-31-2025 Neutrophils (Bld) [#/Vol] Neutrophils [#/volume] in Blood by Automated count 1.8-7.7 [facility] Neutrophils [#/volume] in Bl ood by Automated countOrdered By: Sharan Ayoub on 01-31-2025 Neutrophils (Bld) [#/Vol] 6.8 10*3/uL Normal 1.8-7.7 [facility] Comment on above: Performed By: #### T ACROLIMUS., CMP, MG, CBC #### [facility] [address] [place] [address] [place] Neutrophils/100 WBC Auto (Bl d)Ordered By: Sharan Ayoub on 01-31-2025 Neutrophils/100 WBC (Bld) Automated neutrophil % . [facility] Neutrophils/100 leukocytes i n Blood by Automated countOrdered By: Sharan Ayoub on 01-31-2025 Neutrophils/100 WBC (Bld) 62.5 % Normal . [facility] Comment on above: Performed By: #### T ACROLIMUS., CMP, MG, CBC #### [facility] [address] [place] [address] No Panel InformationOrdered By: Sharan Ayoub on 01-31-2025 Estimated GFR (CKD-EPI) > 60.0 mL/Min [facility] Creatinine Clearance (Chem N/A [facility] Nucleated erythrocytes [Pres ence] in Blood by Automated countOrdered By: Sharan Ayoub on 01-31-2025 Nucleated RBC Auto Ql (Bld) Nucleated erythrocytes [Presence] in Blood by Automated count 0-0.5 [facility] Nucleated RBC Auto Ql (Bld) 0.1 /100{WBC} 0-0.5 [facility] Platelet mean volume Auto (B ld) [Entitic vol]Ordered By: Sharan Ayoub on 01-31-2025 Platelet mean volume (Bld) [Entitic vol] Platelet mean volume [Entitic volume] in Blood by Automated count High 6.6-10.1 [facility] Platelet mean volume [Entiti c volume] in Blood by Automated countOrdered By: Sharan Ayoub on 01-31-2025 Platelet mean volume (Bld) [Entitic vol] 10.6 fL High 6.6-10.1 [facility] Comment on above: Performed By: #### T ACROLIMUS., CMP, MG, CBC #### [facility] [address] Platelets Auto (Bld) [#/Vol] Ordered By: Sharan Ayoub on 01-31-2025 Platelets (Bld) [#/Vol] Platelets [#/volume] in Blood by Automated count 150-450 [facility] Platelets [#/volume] in Bloo d by Automated countOrdered By: Sharan Ayoub on 01-31-2025 Platelets (Bld) [#/Vol] 181 10*3/uL Normal 150-450 [facility] Comment on above: Performed By: #### T ACROLIMUS., CMP, MG, CBC #### [facility] [address] [place] [address] Potassium [Moles/volume] in Serum or PlasmaOrdered By: Sharan Ayoub on 01-31-2025 Potassium [Moles/Vol] Potassium [Moles/v olume] in Serum or Plasma Low 3.5-5.1 [facility] Potassium [Moles/Vol] 3.2 mmol/L Low 3.5-5.1 [facility] Comment on above: Performed By: #### T ACROLIMUS., CMP, MG, CBC #### [facility] [address] [place] [address] [place] Protein [Mass/volume] in Ser um or PlasmaOrdered By: Sharan Ayoub on 01-31-2025 Protein [Mass/Vol] Protein [Mass/volume ] in Serum or Plasma 6.4-8.9 [facility] Protein [Mass/Vol] 6.6 g/dL Normal 6.4-8.9 [facility] Comment on above: Performed By: #### T ACROLIMUS., CMP, MG, CBC #### [facility] [address] [place] [address] RBC Auto (Bld) [#/Vol]Ordere d By: Sharan Ayoub on 01-31-2025 RBC (Bld) [#/Vol] Erythrocytes [#/volu me] in Blood by Automated count 3.90-5.60 [facility] Serum globulin measurement b y calculation (mass/volume)Ordered By: Sharan Ayoub on 01-31-2025 Globulin (S) [Mass/Vol] 3.4 g/dL Normal [facility] Comment on above: Performed By: #### T ACROLIMUS., CMP, MG, CBC #### [facility] [address] [place] [address] Serum or plasma albumin/glob ulin mass ratioOrdered By: Sharan Ayoub on 01-31-2025 Albumin/Globulin [Mass ratio] Serum or plasma albumin/globulin mass ratio [facility] Albumin/Globulin [Mass ratio] 0.9 {ratio} Normal [facility] Comment on above: Performed By: #### T ACROLIMUS., CMP, MG, CBC #### [facility] [address] [place] [address] Serum or plasma anion gap de terminationOrdered By: Sharan Ayoub on 01-31-2025 Anion gap [Moles/Vol] Serum or plasma an ion gap determination 6.0-15.0 [facility] Anion gap [Moles/Vol] 9.3 mmol/L Normal 6.0-15.0 [facility] Comment on above: Performed By: #### T ACROLIMUS., CMP, MG, CBC #### [facility] [address] [place] [address] Sodium [Moles/volume] in Ser um or PlasmaOrdered By: Sharan Ayoub on 01-31-2025 Sodium [Moles/Vol] Sodium [Moles/volume ] in Serum or Plasma 136-145 [facility] Sodium [Moles/Vol] 140 mmol/L Normal 136-145 [facility] Comment on above: Performed By: #### T ACROLIMUS., CMP, MG, CBC #### [address] Tacrolimuson 01-31-2025 Tacrolimus (Bld) [Mass/Vol] 8.8 ng/mL Normal <=15.0 [facility] Comment on above: Order Comment: NOTE: Result was obtained using a chemiluminescent microparticle immunoassay (CMIA) on the T[employer] i system. Optimal therapeutic ranges for immunosuppressant drugs depend upon an individual patient's current clinical state, type of organ transplant, time post-transplant, co-administration of other immunosuppressants, and other clinical factors. The results of this test should be correlated with additional clinical and laboratory data before changes in treatment regimens are made. Performed By: #### 1 1253-2 #### NORMA Cherry ([id number]) [facility] ([facility]) [id number] [place] [address] Tacrolimus (Transplant) No C hgon 01-31-2025 Tacrolimus (Transplant) No Chg Sent to Ref Lab Normal [facility] Comment on above: Result Comment: PERF ORMED BY: [place] [address] PATHOLOGIST LABOR EXPEDITER XI COLON M.D. Performed By: #### T ACROLIMUS., CMP, MG, CBC #### [address] Urea nitrogen [Mass/volume] in Serum or PlasmaOrdered By: Sharan Ayoub on 01-31-2025 Urea nitrogen [Mass/Vol] Urea nitrogen [Mass/volume] in Serum or Plasma 04-25 [facility] Urea nitrogen [Mass/Vol] 22 mg/dL Normal 04-25 [facility] Comment on above: Performed By: #### T ACROLIMUS., CMP, MG, CBC #### [address] WBC Auto (Bld) [#/Vol]Ordere d By: Sharan Ayoub on 01-31-2025 WBC (Bld) [#/Vol] Leukocytes [#/volume ] in Blood by Automated count High 4.1-10.5 [facility] US LIVER WITH DOPPLERon 12-31 US LIVER WITH DOPPLER Interpreted By: Farooq Spann and Ritchie Brandon STUDY: US LIVER WITH DOPPLER; 01/09/2025 1:25 pm INDICATION: Signs/Symptoms:s/p liver transplant, elevated LFT's, follow up for stability.. ,Z94.4 Liver transplant status,T86.90 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,R79.89 Other specified abnormal findings of blood chemistry COMPARISON: Ultrasound of the liver 01/23/2024. ACCESSION NUMBER(S): [id number] ORDERING CLINICIAN: SHARAN AYOUB TECHNIQUE: Multiple images of the right upper quadrant were obtained. Perrin scale, color Doppler and spectral Doppler waveform analysis was performed. This examination was interpreted at [facility]. FINDINGS: LIVER: The liver measures 12.2 cm [...] Willi Valles. This study was interpreted at [place], [place]. MACRO: None Signed by: Farooq Fleming 01/09/2025 9:08 PM Dictation workstation: [id number] [facility] US liver with doppleron 12-31 1. Unremarkable ultr asound of the liver including Doppler interrogation. 2. Trace amount of nonspecific perihepatic/abdominopelvic ascites. 3. Nonobstructive intrarenal calculi of the right kidney. I personally reviewed the images/study and I agree with the findings as stated by resident Willi Valles. This study was interpreted at [place], [place]. MACRO: None Signed by: Farooq lFeming 01/09/2025 9:08 PM Dictation workstation: [id number] MMODAL Interpreted By: Farooq Vital and Ritchie Brandon STUDY: US LIVER WITH DOPPLER; 01/09/2025 1:25 pm INDICATION: Signs/Symptoms:s/p liver transplant, elevated LFT's, follow up for stability.. ,Z94.4 Liver transplant status,T86.90 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,R79.89 Other specified abnormal findings of blood chemistry COMPARISON: Ultrasound of the liver 01/23/2024. ACCESSION NUMBER(S): [id number] ORDERING CLINICIAN: SHARAN AYOUB TECHNIQUE: Multiple images of the right upper quadrant were obtained. Perrin scale, color Doppler and spectral Doppler waveform analysis was performed. This examination was interpreted at [facility]. FINDINGS: LIVER: The liver measures 12.2 cm [...] is trace amount of abdominopelvic/perihepatic ascites noted. [facility] MMODAL Farooq Gutierrez MD - 01/09/2025 Interpreted By: Farooq Gutierrez and Ritchie Brandon STUDY: US LIVER WITH DOPPLER; 01/09/2025 1:25 pm INDICATION: Signs/Symptoms:s/p liver transplant, elevated LFT's, follow up for stability.. ,Z94.4 Liver transplant status,T86.90 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,R79.89 Other specified abnormal findings of blood chemistry COMPARISON: Ultrasound of the liver 01/23/2024. ACCESSION NUMBER(S): [id number] ORDERING CLINICIAN: SHARAN AYOUB TECHNIQUE: Multiple images of the right upper quadrant were obtained. Perrin scale, color Doppler and spectral Doppler waveform analysis was performed. This examination was interpreted at [facility]. FINDINGS: LIVER: The liver measures 12.2 cm [...] Willi Valles. This study was interpreted at [place], [place]. MACRO: None Signed by: Farooq Fleming 01/09/2025 9:08 PM Dictation workstation: [id number] [facility] Work Phone: Radiology Study observation (narrative) [facility] Work Phone: US liver with dopplerOrdered By: Farooq Fleming on 01-09-2025 [facility] Work Phone: No Panel InformationOrdered By: Comfort Saldana on 12-31-2024 [facility] Alanine aminotransferase [En zymatic activity/volume] in Serum or Plasmaon 12-09-2024 ALT [Catalytic activity/Vol] Alanine aminotransferase [Enzymatic activity/volume] in Serum or Plasma High 7-52 [facility] Albumin [Mass/volume] in Ser um or Plasma by Bromocresol green (BCG) dye binding methoon 12-09-2024 Albumin BCG dye [Mass/Vol] Albumin [Mass/volume] in Serum or Plasma by Bromocresol green (BCG) dye binding metho 3.5-5.7 [facility] Alkaline phosphatase [Enzyma tic activity/volume] in Serum or Plasmaon 12-09-2024 ALP [Catalytic activity/Vol] Alkaline phosphatase [Enzymatic activity/volume] in Serum or Plasma High 34-104 [facility] Aspartate aminotransferase [ Enzymatic activity/volume] in Serum or Plasmaon 12-09-2024 AST [Catalytic activity/Vol] Aspartate aminotransferase [Enzymatic activity/volume] in Serum or Plasma High 13-39 [facility] Basophils Auto (Bld) [#/Vol] on 12-09-2024 Basophils (Bld) [#/Vol] Automated basophil count 0.0-0.2 [facility] Basophils/100 WBC Auto (Bld) on 12-09-2024 Basophils/100 WBC (Bld) Automated basophil % . [facility] Bilirubin.total [Mass/volume ] in Serum or Plasmaon 12-09-2024 Bilirubin [Mass/Vol] Bilirubin.total [Mass/volume] in Serum or Plasma High 0.3-1.0 [facility] Comment on above: Samples from patient s who have taken Naproxen have shown spurious elevation in Total Bilirubin levels. A metabolite of Naproxen, O-desmethylnaproxen, has been shown to interfere with the Jendrassik-Grof method for measuring Total Bilirubin. Blood tacrolimus level (mass /volume)on 12-09-2024 Tacrolimus (Bld) [Mass/Vol] Tacrolimus [Mass/volume] in Blood 5.0-20.0 [facility] Comment on above: This test was develo ped and its performance characteristicsdetermined by [employer]. It has not been cleared orapproved by the Food and Drug Administration.Target steady state trough concentration forTacrolimus varies based on type of organ transplantimmunosuppressive protocol and other patient specificfactors. Tacrolimus trough concentrations should beinterpreted in conjunction with clinical assessmentsof rejection and tolerability. Values obtained withdifferent assay methods cannot be used interchangeablydue to differences in assay methods and cross-reactivtywith metabolites, nor should correction factors beapplied. Therefore, consistent use of one assay forindividual patients is recommended.Detection Limit = 0.5 ng/mLPerformed by LC-MS/MS technology Please note reference interval changePerformed at: [facility] [employer] [id number] Director: Thierry Currie MD, Phone: [phone] Calcium [Mass/volume] in Ser um or Plasmaon 12-09-2024 Calcium [Mass/Vol] Calcium [Mass/volume ] in Serum or Plasma 8.6-10.3 [facility] Carbon dioxide, total [Moles /volume] in Serum or Plasmaon 12-09-2024 CO2 [Moles/Vol] Carbon dioxide, tota l [Moles/volume] in Serum or Plasma High 21.0-31.0 [facility] Chloride [Moles/volume] in S kasi or Plasmaon 12-09-2024 Chloride [Moles/Vol] Chloride [Moles/vol ume] in Serum or Plasma 98-107 [facility] Creatinine [Mass/volume] in Serum or Plasmaon 12-09-2024 Creatinine [Mass/Vol] Creatinine [Mass/v olume] in Serum or Plasma 0.70-1.30 [facility] Eosinophils Auto (Bld) [#/Vo l]on 12-09-2024 Eosinophils (Bld) [#/Vol] Automated eosinophil count 0.0-0.45 [facility] Eosinophils/100 WBC Auto (Bl d)on 12-09-2024 Eosinophils/100 WBC (Bld) Automated eosinophil % . [facility] Erythrocyte distribution wid th Auto (RBC) [Ratio]on 12-09-2024 Erythrocyte distribution width (RBC) [Ratio] Erythrocyte distribution width [Ratio] by Automated count High 12.0-14.8 [facility] Globulin Calc (S) [Mass/Vol] on 12-09-2024 Globulin (S) [Mass/Vol] Serum globulin measurement by calculation (mass/volume) [facility] Glucose [Mass/volume] in Ser um or Plasmaon 12-09-2024 Glucose [Mass/Vol] Glucose [Mass/volume ] in Serum or Plasma 70-100 [facility] Comment on above: ADA recommended refe rence rangeRandom Glucose Reference Range is dependent on time and content of last meal. Glucose of more than 200 mg/dL in a nonstressed, ambulatory subject supports the diagnosis of Diabetes Mellitus. Hematocrit Auto (Bld) [Volum e fraction]on 12-09-2024 Hematocrit (Bld) [Volume fraction] Hematocrit [Volume Fraction] of Blood by Automated count 38.8-50.0 [facility] Hemoglobin [Mass/volume] in Bloodon 12-09-2024 Hemoglobin (Bld) [Mass/Vol] Hemoglobin [Mass/volume] in Blood 13.0-17.0 [facility] Leukocytes [#/volume] correc roderick for nucleated erythrocytes in Blood by Automated counon 12-09-2024 WBC corrected for nucl RBC Auto (Bld) [#/Vol] Leukocytes [#/volume] corrected for nucleated erythrocytes in Blood by Automated coun High 4.1-10.5 [facility] Lymphocytes Auto (Bld) [#/Vo l]on 12-09-2024 Lymphocytes (Bld) [#/Vol] Lymphocytes [#/volume] in Blood by Automated count Low 1.00-4.8 [facility] Lymphocytes/100 WBC Auto (Bl d)on 12-09-2024 Lymphocytes/100 WBC (Bld) Lymphocytes/100 leukocytes in Blood by Automated count . [facility] MCH Auto (RBC) [Entitic mass ]on 12-09-2024 MCH (RBC) [Entitic mass] MCH [Entitic mass] by Automated count 27.5-35.2 [facility] MCHC Auto (RBC) [Mass/Vol]on 12-09-2024 MCHC (RBC) [Mass/Vol] MCHC [Mass/volume] by Automated count 32.5-35.6 [facility] MCV Auto (RBC) [Entitic vol] on 12-09-2024 MCV (RBC) [Entitic vol] MCV [Entitic volume] by Automated count 83.5-101 [facility] Monocytes Auto (Bld) [#/Vol] on 12-09-2024 Monocytes (Bld) [#/Vol] Automated blood monocyte count 0.0-0.8 [facility] Monocytes/100 WBC Auto (Bld) on 12-09-2024 Monocytes/100 WBC (Bld) Automated monocyte % . [facility] Neutrophils Auto (Bld) [#/Vo l]on 12-09-2024 Neutrophils (Bld) [#/Vol] Neutrophils [#/volume] in Blood by Automated count High 1.8-7.7 [facility] Neutrophils/100 WBC Auto (Bl d)on 12-09-2024 Neutrophils/100 WBC (Bld) Automated neutrophil % . [facility] No Panel Informationon 12-09 Estimated GFR (CKD-EPI) > 60.0 mL/Min [facility] Creatinine Clearance (Chem N/A [facility] Nucleated erythrocytes [Pres ence] in Blood by Automated counton 12-09-2024 Nucleated RBC Auto Ql (Bld) Nucleated erythrocytes [Presence] in Blood by Automated count 0-0.5 [facility] Platelet mean volume Auto (B ld) [Entitic vol]on 12-09-2024 Platelet mean volume (Bld) [Entitic vol] Platelet mean volume [Entitic volume] in Blood by Automated count 6.6-10.1 [facility] Platelets Auto (Bld) [#/Vol] on 12-09-2024 Platelets (Bld) [#/Vol] Platelets [#/volume] in Blood by Automated count 150-450 [facility] Potassium [Moles/volume] in Serum or Plasmaon 03-10-2025 Potassium [Moles/Vol] Potassium [Moles/v olume] in Serum or Plasma Low 3.5-5.1 [facility] Protein [Mass/volume] in Ser um or Plasmaon 12-09-2024 Protein [Mass/Vol] Protein [Mass/volume ] in Serum or Plasma 6.4-8.9 [facility] RBC Auto (Bld) [#/Vol]on RBC (Bld) [#/Vol] Erythrocytes [#/volu me] in Blood by Automated count 3.90-5.60 [facility] Serum or plasma albumin/glob ulin mass ratioon 12-09-2024 Albumin/Globulin [Mass ratio] Serum or plasma albumin/globulin mass ratio [facility] Serum or plasma anion gap de terminationon 12-09-2024 Anion gap [Moles/Vol] Serum or plasma an ion gap determination 6.0-15.0 [facility] Sodium [Moles/volume] in Ser um or Plasmaon 12-09-2024 Sodium [Moles/Vol] Sodium [Moles/volume ] in Serum or Plasma 136-145 [facility] Urea nitrogen [Mass/volume] in Serum or Plasmaon 12-09-2024 Urea nitrogen [Mass/Vol] Urea nitrogen [Mass/volume] in Serum or Plasma 7-25 [facility] WBC Auto (Bld) [#/Vol]on WBC (Bld) [#/Vol] Leukocytes [#/volume ] in Blood by Automated count High 4.1-10.5 [facility] No Panel Informationon 12-03 [facility] No Panel InformationOrdered By: Comfort Saldana on 11-12-2024 [facility] Tacrolimuson 11-06-2024 Tacrolimus (Bld) [Mass/Vol] 9.2 ng/mL Normal <=15.0 [facility] Comment on above: Order Comment: NOTE: Result was obtained using a chemiluminescent microparticle immunoassay (CMIA) on the Tent Worker i system. Optimal therapeutic ranges for immunosuppressant drugs depend upon an individual patient's current clinical state, type of organ transplant, time post-transplant, co-administration of other immunosuppressants, and other clinical factors. The results of this test should be correlated with additional clinical and laboratory data before changes in treatment regimens are made. Performed By: #### 1 1253-2 #### NORMA Cherry ([id number]) [facility] ([facility]) [address] [place] [address] Alanine aminotransferase [En zymatic activity/volume] in Serum or PlasmaOrdered By: Sharan Ayoub on 11-05-2024 ALT [Catalytic activity/Vol] Alanine aminotransferase [Enzymatic activity/volume] in Serum or Plasma High 7-52 [facility] Albumin [Mass/volume] in Ser um or Plasma by Bromocresol green (BCG) dye binding methoOrdered By: Sharan Ayoub on 11-05-2024 Albumin BCG dye [Mass/Vol] Albumin [Mass/volume] in Serum or Plasma by Bromocresol green (BCG) dye binding metho 3.5-5.7 [facility] Alkaline phosphatase [Enzyma tic activity/volume] in Serum or PlasmaOrdered By: Sharan Ayoub on 11-05-2024 ALP [Catalytic activity/Vol] Alkaline phosphatase [Enzymatic activity/volume] in Serum or Plasma High 34-104 [facility] Aspartate aminotransferase [ Enzymatic activity/volume] in Serum or PlasmaOrdered By: Sharan Ayoub on 11-05-2024 AST [Catalytic activity/Vol] Aspartate aminotransferase [Enzymatic activity/volume] in Serum or Plasma High 13-39 [facility] Basophils Auto (Bld) [#/Vol] Ordered By: Sharan Ayoub on 11-05-2024 Basophils (Bld) [#/Vol] Automated basophil count 0.0-0.2 [facility] Basophils/100 WBC Auto (Bld) Ordered By: Sharan Ayoub on 11-05-2024 Basophils/100 WBC (Bld) Automated basophil % . [facility] Bilirubin.total [Mass/volume ] in Serum or PlasmaOrdered By: Sharan Ayoub on 11-05-2024 Bilirubin [Mass/Vol] Bilirubin.total [Mass/volume] in Serum or Plasma High 0.3-1.0 [facility] Comment on above: Samples from patient s who have taken Naproxen have shown spurious elevation in Total Bilirubin levels. A metabolite of Naproxen, O-desmethylnaproxen, has been shown to interfere with the Jendrcarmitaik-Grodeisy method for measuring Total Bilirubin. Blood tacrolimus measurement (mass/volume)Ordered By: Sharan Ayoub on 11-05-2024 Tacrolimus (Bld) [Mass/Vol] Tacrolimus [Mass/volume] in Blood [facility] Calcium [Mass/volume] in Ser um or PlasmaOrdered By: Sharan Ayoub on 11-05-2024 Calcium [Mass/Vol] Calcium [Mass/volume ] in Serum or Plasma 8.6-10.3 [facility] Carbon dioxide, total [Moles /volume] in Serum or PlasmaOrdered By: Sharan Ayoub on 11-05-2024 CO2 [Moles/Vol] Carbon dioxide, tota l [Moles/volume] in Serum or Plasma High 21.0-31.0 [facility] Chloride [Moles/volume] in S kasi or PlasmaOrdered By: Sharan Ayoub on 11-05-2024 Chloride [Moles/Vol] Chloride [Moles/vol ume] in Serum or Plasma 98-107 [facility] Complete Blood Count Auto Di ffon 11-05-2024 Basophils (Bld) [#/Vol] 0.1 10*3/uL Normal 0.0-0.2 [facility] Comment on above: Result Comment: PERF ORMED BY: [place] [address] PATHOLOGIST LABOR EXPEDITER XI COLON M.D. Performed By: #### T ACROLIMUS., CMP, MG, CBC #### [address] Basophils/100 WBC (Bld) 0.8 % Normal . [facility] Comment on above: Performed By: #### T ACROLIMUS., CMP, MG, CBC #### [address] Eosinophils (Bld) [#/Vol] 0.2 10*3/uL Normal 0.0-0.45 [facility] Comment on above: Performed By: #### T ACROLIMUS., CMP, MG, CBC #### [address] Eosinophils/100 WBC (Bld) 1.1 % Normal . [facility] Comment on above: Performed By: #### T ACROLIMUS., CMP, MG, CBC #### [address] Erythrocyte distribution width (RBC) [Ratio] 15.6 % High 12.0-14.8 [facility] Comment on above: Performed By: #### T ACROLIMUS., CMP, MG, CBC #### [address] Hematocrit (Bld) [Volume fraction] 46.4 % Normal 38.8-50.0 [facility] Comment on above: Performed By: #### T ACROLIMUS., CMP, MG, CBC #### [address] Hemoglobin (Bld) [Mass/Vol] 15.5 g/dL Normal 13.0-17.0 [facility] [facility] Comment on above: Performed By: #### T ACROLIMUS., CMP, MG, CBC #### [place] [address] [place] Lymphocytes (Bld) [#/Vol] 2.8 10*3/uL Normal 1.00-4.8 [facility] Comment on above: Performed By: #### T ACROLIMUS., CMP, MG, CBC #### [place] [address] [place] Lymphocytes/100 WBC (Bld) 20.9 % Normal . [facility] Comment on above: Performed By: #### T ACROLIMUS., CMP, MG, CBC #### [address] MCH (RBC) [Entitic mass] 30.6 pg Normal 27.5-35.2 [facility] Comment on above: Performed By: #### T ACROLIMUS., CMP, MG, CBC #### [address] MCV (RBC) [Entitic vol] 91.6 fL Normal 83.5-101 [facility] Comment on above: Performed By: #### T ACROLIMUS., CMP, MG, CBC #### [address] Mean Corpuscular HGB Conc 33.4 g/dL Normal 32.5-35.6 [facility] Comment on above: Performed By: #### T ACROLIMUS., CMP, MG, CBC #### [place] [address] [place] Monocytes (Bld) [#/Vol] 1.0 10*3/uL High 0.0-0.8 [facility] Comment on above: Performed By: #### T ACROLIMUS., CMP, MG, CBC #### [address] Monocytes/100 WBC (Bld) 7.1 % Normal . [facility] Comment on above: Performed By: #### T ACROLIMUS., CMP, MG, CBC #### [address] Neutrophils (Bld) [#/Vol] 9.5 10*3/uL High 1.8-7.7 [facility] Comment on above: Performed By: #### T ACROLIMUS., CMP, MG, CBC #### [address] Neutrophils/100 WBC (Bld) 70.1 % Normal . [facility] Comment on above: Performed By: #### T ACROLIMUS., CMP, MG, CBC #### [place] [address] [place] NRBC% 0.2 /100{WBC} Normal 0-0.5 [facility] Comment on above: Performed By: #### T ACROLIMUS., CMP, MG, CBC #### [address] Platelet mean volume (Bld) [Entitic vol] 11.1 fL High 6.6-10.1 [facility] Comment on above: Performed By: #### T ACROLIMUS., CMP, MG, CBC #### [address] Platelets (Bld) [#/Vol] 166 10*3/uL Normal 150-450 [facility] Comment on above: Performed By: #### T ACROLIMUS., CMP, MG, CBC #### [address] RBC (Bld) [#/Vol] 5.06 10*6/uL Normal 3.90-5.60 [facility] Comment on above: Performed By: #### T ACROLIMUS., CMP, MG, CBC #### [address] WBC (Bld) [#/Vol] 13.6 10*3/uL High 4.1-10.5 [facility] Comment on above: Performed By: #### T ACROLIMUS., CMP, MG, CBC #### [address] Comprehensive Metabolic Pane [facility] 11-05-2024 Albumin [Mass/Vol] 3.6 g/dL Normal 3.5-5.7 [facility] Comment on above: Performed By: #### T ACROLIMUS., CMP, MG, CBC #### [address] Albumin/Globulin [Mass ratio] 1.0 {ratio} Normal [facility] Comment on above: Performed By: #### T ACROLIMUS., CMP, MG, CBC #### [address] ALP [Catalytic activity/Vol] 374 U/L High 34-104 [facility] Comment on above: Result Comment: PERF ORMED BY: [place] [address] PATHOLOGIST LABOR EXPEDITER XI COLON M.D. Performed By: #### T ACROLIMUS., CMP, MG, CBC #### [address] ALT [Catalytic activity/Vol] 90 U/L High 7-52 [facility] Comment on above: Performed By: #### T ACROLIMUS., CMP, MG, CBC #### [address] Anion gap [Moles/Vol] 8.7 mmol/L Normal 6.0-15.0 [facility] Comment on above: Performed By: #### T ACROLIMUS., CMP, MG, CBC #### [address] AST [Catalytic activity/Vol] 71 U/L High 13-39 [facility] Comment on above: Performed By: #### T ACROLIMUS., CMP, MG, CBC #### [address] Bilirubin [Mass/Vol] 2.9 mg/dL High 0.3-1.0 [facility] Comment on above: Result Comment: Samp les from patients who have taken Naproxen have shown spurious elevation in Total Bilirubin levels. A metabolite of Naproxen, O-desmethylnaproxen, has been shown to interfere with the Jendrassik-Grof method for measuring Total Bilirubin. Performed By: #### T ACROLIMUS., CMP, MG, CBC #### [address] Calcium [Mass/Vol] 9.4 mg/dL Normal 8.6-10.3 [facility] Comment on above: Performed By: #### T ACROLIMUS., CMP, MG, CBC #### [place] [address] [place] Chloride [Moles/Vol] 101 mmol/L Normal 98-107 [facility] Comment on above: Performed By: #### T ACROLIMUS., CMP, MG, CBC #### [place] [address] [place] CO2 [Moles/Vol] 32.6 mmol/L High 21.0-31.0 [facility] Comment on above: Performed By: #### T ACROLIMUS., CMP, MG, CBC #### [place] [address] [place] Creatinine [Mass/Vol] 1.03 mg/dL Normal 0.70-1.30 [facility] Comment on above: Performed By: #### T ACROLIMUS., CMP, MG, CBC #### [address] GFR/1.73 sq M.predicted MDRD (S/P/Bld) [Vol rate/Area] mL/min/{1.73_m2} Normal [facility] Comment on above: Performed By: #### T ACROLIMUS., CMP, MG, CBC #### [address] Globulin (S) [Mass/Vol] 3.5 g/dL Normal [facility] Comment on above: Performed By: #### T ACROLIMUS., CMP, MG, CBC #### [address] Glucose [Mass/Vol] 187 mg/dL High 70-100 [facility] Comment on above: Result Comment: [place] Glucose Reference Range is dependent on time and content of last meal. Glucose of more than 200 mg/dL in a nonstressed, ambulatory subject supports the diagnosis of Diabetes Mellitus. ADA recommended reference range Performed By: #### T ACROLIMUS., CMP, MG, CBC #### [address] Potassium [Moles/Vol] 3.3 mmol/L Low 3.5-5.1 [facility] Comment on above: Performed By: #### T ACROLIMUS., CMP, MG, CBC #### [address] Protein [Mass/Vol] 7.1 g/dL Normal 6.4-8.9 [facility] Comment on above: Performed By: #### T ACROLIMUS., CMP, MG, CBC #### [address] Sodium [Moles/Vol] 139 mmol/L Normal 136-145 [facility] Comment on above: Performed By: #### T ACROLIMUS., CMP, MG, CBC #### [facility] [address] [place] [id number] [place] Urea nitrogen [Mass/Vol] 18 mg/dL Normal 7-25 [facility] Comment on above: Performed By: #### T ACROLIMUS., CMP, MG, CBC #### [facility] [address] [place] [address] [place] Creatinine [Mass/volume] in Serum or PlasmaOrdered By: Sharan Ayoub on 11-05-2024 Creatinine [Mass/Vol] Creatinine [Mass/v olume] in Serum or Plasma 0.70-1.30 [facility] Eosinophils Auto (Bld) [#/Vo l]Ordered By: Sharan Ayoub on 11-05-2024 Eosinophils (Bld) [#/Vol] Automated eosinophil count 0.0-0.45 [facility] Eosinophils/100 WBC Auto (Bl d)Ordered By: Sharan Ayoub on 11-05-2024 Eosinophils/100 WBC (Bld) Automated eosinophil % . [facility] Erythrocyte distribution wid th Auto (RBC) [Ratio]Ordered By: Sharan Ayoub on 11-05-2024 Erythrocyte distribution width (RBC) [Ratio] Erythrocyte distribution width [Ratio] by Automated count High 12.0-14.8 [facility] Globulin Calc (S) [Mass/Vol] Ordered By: Sharan Ayoub on 11-05-2024 Globulin (S) [Mass/Vol] Serum globulin measurement by calculation (mass/volume) [facility] Glucose [Mass/volume] in Ser um or PlasmaOrdered By: Sharan Ayoub on 11-05-2024 Glucose [Mass/Vol] Glucose [Mass/volume ] in Serum or Plasma High 70-100 [facility] Comment on above: ADA recommended refe rence rangeRandom Glucose Reference Range is dependent on time and content of last meal. Glucose of more than 200 mg/dL in a nonstressed, ambulatory subject supports the diagnosis of Diabetes Mellitus. Hematocrit Auto (Bld) [Volum e fraction]Ordered By: Sharan Ayoub on 11-05-2024 Hematocrit (Bld) [Volume fraction] Hematocrit [Volume Fraction] of Blood by Automated count 38.8-50.0 [facility] Hemoglobin [Mass/volume] in BloodOrdered By: Sharan Ayoub on 11-05-2024 Hemoglobin (Bld) [Mass/Vol] Hemoglobin [Mass/volume] in Blood 13.0-17.0 [facility] Leukocytes [#/volume] correc roderick for nucleated erythrocytes in Blood by Automated counOrdered By: Sharan Ayoub on 11-05-2024 WBC corrected for nucl RBC Auto (Bld) [#/Vol] Leukocytes [#/volume] corrected for nucleated erythrocytes in Blood by Automated coun High 4.1-10.5 [facility] Lymphocytes Auto (Bld) [#/Vo l]Ordered By: Sharan Ayoub on 11-05-2024 Lymphocytes (Bld) [#/Vol] Lymphocytes [#/volume] in Blood by Automated count 1.00-4.8 [facility] Lymphocytes/100 WBC Auto (Bl d)Ordered By: Sharan Ayoub on 11-05-2024 Lymphocytes/100 WBC (Bld) Lymphocytes/100 leukocytes in Blood by Automated count . [facility] MCH Auto (RBC) [Entitic mass ]Ordered By: Sharan Ayoub on 11-05-2024 MCH (RBC) [Entitic mass] MCH [Entitic mass] by Automated count 27.5-35.2 [facility] MCHC Auto (RBC) [Mass/Vol]Or dered By: Sharan Ayoub on 11-05-2024 MCHC (RBC) [Mass/Vol] MCHC [Mass/volume] by Automated count 32.5-35.6 [facility] MCV Auto (RBC) [Entitic vol] Ordered By: Sharan Ayoub on 11-05-2024 MCV (RBC) [Entitic vol] MCV [Entitic volume] by Automated count 83.5-101 [facility] Monocytes Auto (Bld) [#/Vol] Ordered By: Sharan Ayoub on 11-05-2024 Monocytes (Bld) [#/Vol] Automated blood monocyte count High 0.0-0.8 [facility] Monocytes/100 WBC Auto (Bld) Ordered By: Sharan Ayoub on 11-05-2024 Monocytes/100 WBC (Bld) Automated monocyte % . [facility] Neutrophils Auto (Bld) [#/Vo l]Ordered By: Sharan Ayoub on 11-05-2024 Neutrophils (Bld) [#/Vol] Neutrophils [#/volume] in Blood by Automated count High 1.8-7.7 [facility] Neutrophils/100 WBC Auto (Bl d)Ordered By: Sharan Ayoub on 11-05-2024 Neutrophils/100 WBC (Bld) Automated neutrophil % . [facility] No Panel InformationOrdered By: Sharan Ayoub on 11-05-2024 Estimated GFR (CKD-EPI) > 60.0 mL/Min [facility] Creatinine Clearance (Chem N/A [facility] Nucleated erythrocytes [Pres ence] in Blood by Automated countOrdered By: Sharan Ayoub on 11-05-2024 Nucleated RBC Auto Ql (Bld) Nucleated erythrocytes [Presence] in Blood by Automated count 0-0.5 [facility] Platelet mean volume Auto (B ld) [Entitic vol]Ordered By: Sharan Ayoub on 11-05-2024 Platelet mean volume (Bld) [Entitic vol] Platelet mean volume [Entitic volume] in Blood by Automated count High 6.6-10.1 [facility] Platelets Auto (Bld) [#/Vol] Ordered By: Sharan Ayoub on 11-05-2024 Platelets (Bld) [#/Vol] Platelets [#/volume] in Blood by Automated count 150-450 [facility] Potassium [Moles/volume] in Serum or PlasmaOrdered By: hSaran Ayoub on 11-05-2024 Potassium [Moles/Vol] Potassium [Moles/v olume] in Serum or Plasma Low 3.5-5.1 [facility] Protein [Mass/volume] in Ser um or PlasmaOrdered By: Sharan Ayoub on 11-05-2024 Protein [Mass/Vol] Protein [Mass/volume ] in Serum or Plasma 6.4-8.9 [facility] RBC Auto (Bld) [#/Vol]Ordere d By: Sharan Ayoub on 11-05-2024 RBC (Bld) [#/Vol] Erythrocytes [#/volu me] in Blood by Automated count 3.90-5.60 [facility] Serum or plasma albumin/glob ulin mass ratioOrdered By: Sharan Ayoub on 11-05-2024 Albumin/Globulin [Mass ratio] Serum or plasma albumin/globulin mass ratio [facility] Serum or plasma anion gap de terminationOrdered By: Sharan Ayoub on 11-05-2024 Anion gap [Moles/Vol] Serum or plasma an ion gap determination 6.0-15.0 [facility] Sodium [Moles/volume] in Ser um or PlasmaOrdered By: Sharan Ayoub on 11-05-2024 Sodium [Moles/Vol] Sodium [Moles/volume ] in Serum or Plasma 136-145 [facility] Tacrolimus (Transplant) No C hgon 11-05-2024 Tacrolimus (Transplant) No Chg Sent to Ref Lab Normal [facility] Comment on above: Result Comment: PERF ORMED BY: [place] [address] PATHOLOGIST LABOR EXPEDITER XI COLON M.D. Performed By: #### T ACROLIMUS., CMP, MG, CBC #### [facility] [address] Urea nitrogen [Mass/volume] in Serum or PlasmaOrdered By: Sharan Ayoub on 11-05-2024 Urea nitrogen [Mass/Vol] Urea nitrogen [Mass/volume] in Serum or Plasma 7-25 [facility] WBC Auto (Bld) [#/Vol]Ordere d By: Sharan Ayoub on 11-05-2024 WBC (Bld) [#/Vol] Leukocytes [#/volume ] in Blood by Automated count High 4.1-10.5 [facility] Alanine aminotransferase [En zymatic activity/volume] in Serum or PlasmaOrdered By: Sharan Ayoub on 10-10-2024 ALT [Catalytic activity/Vol] Alanine aminotransferase [Enzymatic activity/volume] in Serum or Plasma High 7-52 [facility] Albumin [Mass/volume] in Ser um or Plasma by Bromocresol green (BCG) dye binding methoOrdered By: Sharan Ayoub on 10-10-2024 Albumin BCG dye [Mass/Vol] Albumin [Mass/volume] in Serum or Plasma by Bromocresol green (BCG) dye binding metho 3.5-5.7 [facility] Alkaline phosphatase [Enzyma tic activity/volume] in Serum or PlasmaOrdered By: Sharan Ayoub on 10-10-2024 ALP [Catalytic activity/Vol] Alkaline phosphatase [Enzymatic activity/volume] in Serum or Plasma High 34-104 [facility] Aspartate aminotransferase [ Enzymatic activity/volume] in Serum or PlasmaOrdered By: Sharan Ayoub on 10-10-2024 AST [Catalytic activity/Vol] Aspartate aminotransferase [Enzymatic activity/volume] in Serum or Plasma High 13-39 [facility] Basophils Auto (Bld) [#/Vol] Ordered By: Sharan Ayoub on 10-10-2024 Basophils (Bld) [#/Vol] Automated basophil count 0.0-0.2 [facility] Basophils/100 WBC Auto (Bld) Ordered By: Sharan Ayoub on 10-10-2024 Basophils/100 WBC (Bld) Automated basophil % . [facility] Bilirubin.total [Mass/volume ] in Serum or PlasmaOrdered By: Sharan Ayoub on 10-10-2024 Bilirubin [Mass/Vol] Bilirubin.total [Mass/volume] in Serum or Plasma High 0.3-1.0 [facility] Comment on above: Samples from patient s who have taken Naproxen have shown spurious elevation in Total Bilirubin levels. A metabolite of Naproxen, O-desmethylnaproxen, has been shown to interfere with the Harlan-Uriel method for measuring Total Bilirubin. Blood tacrolimus measurement (mass/volume)Ordered By: Sharan Ayoub on 10-10-2024 Tacrolimus (Bld) [Mass/Vol] Tacrolimus [Mass/volume] in Blood [facility] Calcium [Mass/volume] in Ser um or PlasmaOrdered By: Sharan Ayoub on 10-10-2024 Calcium [Mass/Vol] Calcium [Mass/volume ] in Serum or Plasma 8.6-10.3 [facility] Carbon dioxide, total [Moles /volume] in Serum or PlasmaOrdered By: Sharan Ayoub on 10-10-2024 CO2 [Moles/Vol] Carbon dioxide, tota l [Moles/volume] in Serum or Plasma 21.0-31.0 [facility] Chloride [Moles/volume] in S kasi or PlasmaOrdered By: Sharan Ayoub on 10-10-2024 Chloride [Moles/Vol] Chloride [Moles/vol ume] in Serum or Plasma 98-107 [facility] Complete Blood Count Auto Di ffon 10-10-2024 Basophils (Bld) [#/Vol] 0.1 10*3/uL Normal 0.0-0.2 [facility] Comment on above: Result Comment: PERF ORMED BY: [place] [address] PATHOLOGIST LABOR EXPEDITER XI COLON M.D. Performed By: #### T ACROLIMUS., CMP, CBC #### [address] Basophils/100 WBC (Bld) 0.6 % Normal . [facility] Comment on above: Performed By: #### T ACROLIMUS., CMP, CBC #### [address] Eosinophils (Bld) [#/Vol] 0.1 10*3/uL Normal 0.0-0.45 [facility] Comment on above: Performed By: #### T ACROLIMUS., CMP, CBC #### [address] Eosinophils/100 WBC (Bld) 0.6 % Normal . [facility] Comment on above: Performed By: #### T ACROLIMUS., CMP, CBC #### [address] Erythrocyte distribution width (RBC) [Ratio] 15.6 % High 12.0-14.8 [facility] Comment on above: Performed By: #### T ACROLIMUS., CMP, CBC #### [address] Hematocrit (Bld) [Volume fraction] 43.2 % Normal 38.8-50.0 [facility] Comment on above: Performed By: #### T ACROLIMUS., CMP, CBC #### [address] Hemoglobin (Bld) [Mass/Vol] 14.6 g/dL Normal 13.0-17.0 [facility] Comment on above: Performed By: #### T ACROLIMUS., CMP, CBC #### [address] Lymphocytes (Bld) [#/Vol] 3.3 10*3/uL Normal 1.00-4.8 [facility] Comment on above: Performed By: #### T ACROLIMUS., CMP, CBC #### [address] Lymphocytes/100 WBC (Bld) 25.4 % Normal . [facility] Comment on above: Performed By: #### T ACROLIMUS., CMP, CBC #### [address] MCH (RBC) [Entitic mass] 30.5 pg Normal 27.5-35.2 [facility] Comment on above: Performed By: #### T ACROLIMUS., CMP, CBC #### [address] MCV (RBC) [Entitic vol] 90.4 fL Normal 83.5-101 [facility] Comment on above: Performed By: #### T ACROLIMUS., CMP, CBC #### [address] Mean Corpuscular HGB Conc 33.7 g/dL Normal 32.5-35.6 [facility] Comment on above: Performed By: #### T ACROLIMUS., CMP, CBC #### [address] Monocytes (Bld) [#/Vol] 1.1 10*3/uL High 0.0-0.8 [facility] Comment on above: Performed By: #### T ACROLIMUS., CMP, CBC #### [place] [address] [place] Monocytes/100 WBC (Bld) 8.4 % Normal . [facility] Comment on above: Performed By: #### T ACROLIMUS., CMP, CBC #### [address] Neutrophils (Bld) [#/Vol] 8.5 10*3/uL High 1.8-7.7 [facility] Comment on above: Performed By: #### T ACROLIMUS., CMP, CBC #### [address] Neutrophils/100 WBC (Bld) 65.0 % Normal . [facility] Comment on above: Performed By: #### T ACROLIMUS., CMP, CBC #### [address] NRBC% 0.2 /100{WBC} Normal 0-0.5 [facility] Comment on above: Performed By: #### T ACROLIMUS., CMP, CBC #### [address] Platelet mean volume (Bld) [Entitic vol] 10.7 fL High 6.6-10.1 [facility] Comment on above: Performed By: #### T ACROLIMUS., CMP, CBC #### [address] Platelets (Bld) [#/Vol] 217 10*3/uL Normal 150-450 [facility] Comment on above: Performed By: #### T ACROLIMUS., CMP, CBC #### [address] RBC (Bld) [#/Vol] 4.78 10*6/uL Normal 3.90-5.60 [facility] Comment on above: Performed By: #### T ACROLIMUS., CMP, CBC #### [address] WBC (Bld) [#/Vol] 13.1 10*3/uL High 4.1-10.5 [facility] Comment on above: Performed By: #### T ACROLIMUS., CMP, CBC #### [facility] [address] Comprehensive Metabolic Pane sarah 10-10-2024 Albumin [Mass/Vol] 3.5 g/dL Normal 3.5-5.7 [facility] Comment on above: Performed By: #### T ACROLIMUS., CMP, CBC #### [facility] [address] Albumin/Globulin [Mass ratio] 1.1 {ratio} Normal [facility] Comment on above: Performed By: #### T ACROLIMUS., CMP, CBC #### [address] ALP [Catalytic activity/Vol] 342 U/L High 34-104 [facility] Comment on above: Result Comment: PERF ORMED BY: [place] [address] PATHOLOGIST LABOR EXPEDITER XI COLON M.D. Performed By: #### T ACROLIMUS., CMP, CBC #### [address] ALT [Catalytic activity/Vol] 89 U/L High 7-52 [facility] Comment on above: Performed By: #### T ACROLIMUS., CMP, CBC #### [address] Anion gap [Moles/Vol] 12.5 mmol/L Normal 6.0-15.0 [facility] Comment on above: Performed By: #### T ACROLIMUS., CMP, CBC #### [address] AST [Catalytic activity/Vol] 72 U/L High 13-39 [facility] Comment on above: Performed By: #### T ACROLIMUS., CMP, CBC #### [address] Bilirubin [Mass/Vol] 3.9 mg/dL High 0.3-1.0 [facility] Comment on above: Result Comment: Samp les from patients who have taken Naproxen have shown spurious elevation in Total Bilirubin levels. A metabolite of Naproxen, O-desmethylnaproxen, has been shown to interfere with the Jendrassik-Grof method for measuring Total Bilirubin. Performed By: #### T ACROLIMUS., CMP, CBC #### [facility] [address] Calcium [Mass/Vol] 9.5 mg/dL Normal 8.6-10.3 [facility] Comment on above: Performed By: #### T ACROLIMUS., CMP, CBC #### [facility] [address] Chloride [Moles/Vol] 100 mmol/L Normal 98-107 [facility] Comment on above: Performed By: #### T ACROLIMUS., CMP, CBC #### [facility] [address] CO2 [Moles/Vol] 30.7 mmol/L Normal 21.0-31.0 [facility] Comment on above: Performed By: #### T ACROLIMUS., CMP, CBC #### [facility] [address] Creatinine [Mass/Vol] 1.13 mg/dL Normal 0.70-1.30 [facility] Comment on above: Performed By: #### T ACROLIMUS., CMP, CBC #### [facility] [address] [place] [address] [place] GFR/1.73 sq M.predicted MDRD (S/P/Bld) [Vol rate/Area] mL/min/{1.73_m2} Normal [facility] Comment on above: Performed By: #### T ACROLIMUS., CMP, CBC #### [facility] [address] [place] [address] [place] Globulin (S) [Mass/Vol] 3.3 g/dL Normal [facility] Comment on above: Performed By: #### T ACROLIMUS., CMP, CBC #### [facility] [address] [place] [address] [place] Glucose [Mass/Vol] 184 mg/dL High 70-100 [facility] Comment on above: Result Comment: [facility] Glucose Reference Range is dependent on time and content of last meal. Glucose of more than 200 mg/dL in a nonstressed, ambulatory subject supports the diagnosis of Diabetes Mellitus. ADA recommended reference range Performed By: #### T ACROLIMUS., CMP, CBC #### [facility] [address] Potassium [Moles/Vol] 3.2 mmol/L Low 3.5-5.1 [facility] Comment on above: Performed By: #### T ACROLIMUS., CMP, CBC #### [facility] [address] [place] [address] [place] Protein [Mass/Vol] 6.8 g/dL Normal 6.4-8.9 [facility] Comment on above: Performed By: #### T ACROLIMUS., CMP, CBC #### [facility] [address] [place] [address] [place] Sodium [Moles/Vol] 140 mmol/L Normal 136-145 [facility] Comment on above: Performed By: #### T ACROLIMUS., CMP, CBC #### [facility] [address] [place] [address] [place] Urea nitrogen [Mass/Vol] 21 mg/dL Normal 7-25 [facility] Comment on above: Performed By: #### T ACROLIMUS., CMP, CBC #### [facility] [address] Creatinine [Mass/volume] in Serum or PlasmaOrdered By: Sharan Ayoub on 10-10-2024 Creatinine [Mass/Vol] Creatinine [Mass/v olume] in Serum or Plasma 0.70-1.30 [facility] Eosinophils Auto (Bld) [#/Vo l]Ordered By: Sharan Ayoub on 10-10-2024 Eosinophils (Bld) [#/Vol] Automated eosinophil count 0.0-0.45 [facility] Eosinophils/100 WBC Auto (Bl d)Ordered By: Sharan Ayoub on 10-10-2024 Eosinophils/100 WBC (Bld) Automated eosinophil % . [facility] Erythrocyte distribution wid th Auto (RBC) [Ratio]Ordered By: Sharan Ayoub on 10-10-2024 Erythrocyte distribution width (RBC) [Ratio] Erythrocyte distribution width [Ratio] by Automated count High 12.0-14.8 [facility] Globulin Calc (S) [Mass/Vol] Ordered By: Sharan Ayoub on 10-10-2024 Globulin (S) [Mass/Vol] Serum globulin measurement by calculation (mass/volume) [facility] Glucose [Mass/volume] in Ser um or PlasmaOrdered By: Sharan Ayoub on 10-10-2024 Glucose [Mass/Vol] Glucose [Mass/volume ] in Serum or Plasma High 70-100 [facility] Comment on above: ADA recommended refe rence rangeRandom Glucose Reference Range is dependent on time and content of last meal. Glucose of more than 200 mg/dL in a nonstressed, ambulatory subject supports the diagnosis of Diabetes Mellitus. Hematocrit Auto (Bld) [Volum e fraction]Ordered By: Sharan Ayoub on 10-10-2024 Hematocrit (Bld) [Volume fraction] Hematocrit [Volume Fraction] of Blood by Automated count 38.8-50.0 [facility] Hemoglobin [Mass/volume] in BloodOrdered By: Sharan Ayoub on 10-10-2024 Hemoglobin (Bld) [Mass/Vol] Hemoglobin [Mass/volume] in Blood 13.0-17.0 [facility] Leukocytes [#/volume] correc roderick for nucleated erythrocytes in Blood by Automated counOrdered By: Sharan Ayoub on 10-10-2024 WBC corrected for nucl RBC Auto (Bld) [#/Vol] Leukocytes [#/volume] corrected for nucleated erythrocytes in Blood by Automated coun High 4.1-10.5 [facility] Lymphocytes Auto (Bld) [#/Vo l]Ordered By: Sharan Ayoub on 10-10-2024 Lymphocytes (Bld) [#/Vol] Lymphocytes [#/volume] in Blood by Automated count 1.00-4.8 [facility] Lymphocytes/100 WBC Auto (Bl d)Ordered By: Sharan Ayoub on 10-10-2024 Lymphocytes/100 WBC (Bld) Lymphocytes/100 leukocytes in Blood by Automated count . [facility] MCH Auto (RBC) [Entitic mass ]Ordered By: Sharan Ayoub on 10-10-2024 MCH (RBC) [Entitic mass] MCH [Entitic mass] by Automated count 27.5-35.2 [facility] MCHC Auto (RBC) [Mass/Vol]Or dered By: Sharan Ayoub on 10-10-2024 MCHC (RBC) [Mass/Vol] MCHC [Mass/volume] by Automated count 32.5-35.6 [facility] MCV Auto (RBC) [Entitic vol] Ordered By: Sharan Ayoub on 10-10-2024 MCV (RBC) [Entitic vol] MCV [Entitic volume] by Automated count 83.5-101 [facility] Monocytes Auto (Bld) [#/Vol] Ordered By: Sharan Ayoub on 10-10-2024 Monocytes (Bld) [#/Vol] Automated blood monocyte count High 0.0-0.8 [facility] Monocytes/100 WBC Auto (Bld) Ordered By: Sharan Ayoub on 10-10-2024 Monocytes/100 WBC (Bld) Automated monocyte % . [facility] Neutrophils Auto (Bld) [#/Vo l]Ordered By: Sharan Ayoub on 10-10-2024 Neutrophils (Bld) [#/Vol] Neutrophils [#/volume] in Blood by Automated count High 1.8-7.7 [facility] Neutrophils/100 WBC Auto (Bl d)Ordered By: Sharan Ayoub on 10-10-2024 Neutrophils/100 WBC (Bld) Automated neutrophil % . [facility] No Panel InformationOrdered By: Sharan Ayoub on 10-10-2024 Estimated GFR (CKD-EPI) > 60.0 mL/Min [facility] Creatinine Clearance (Chem N/A [facility] Nucleated erythrocytes [Pres ence] in Blood by Automated countOrdered By: Sharan Ayoub on 10-10-2024 Nucleated RBC Auto Ql (Bld) Nucleated erythrocytes [Presence] in Blood by Automated count 0-0.5 [facility] Platelet mean volume Auto (B ld) [Entitic vol]Ordered By: Sharan Ayoub on 10-10-2024 Platelet mean volume (Bld) [Entitic vol] Platelet mean volume [Entitic volume] in Blood by Automated count High 6.6-10.1 [facility] Platelets Auto (Bld) [#/Vol] Ordered By: Sharan Ayoub on 10-10-2024 Platelets (Bld) [#/Vol] Platelets [#/volume] in Blood by Automated count 150-450 [facility] Potassium [Moles/volume] in Serum or PlasmaOrdered By: Sharan Ayoub on 10-10-2024 Potassium [Moles/Vol] Potassium [Moles/v olume] in Serum or Plasma Low 3.5-5.1 [facility] Protein [Mass/volume] in Ser um or PlasmaOrdered By: Sharan Ayoub on 10-10-2024 Protein [Mass/Vol] Protein [Mass/volume ] in Serum or Plasma 6.4-8.9 [facility] RBC Auto (Bld) [#/Vol]Ordere d By: Sharan Ayoub on 10-10-2024 RBC (Bld) [#/Vol] Erythrocytes [#/volu me] in Blood by Automated count 3.90-5.60 [facility] Serum or plasma albumin/glob ulin mass ratioOrdered By: Sharan Ayoub on 10-10-2024 Albumin/Globulin [Mass ratio] Serum or plasma albumin/globulin mass ratio [facility] Serum or plasma anion gap de terminationOrdered By: Sharan Ayoub on 10-10-2024 Anion gap [Moles/Vol] Serum or plasma an ion gap determination 6.0-15.0 [facility] Sodium [Moles/volume] in Ser um or PlasmaOrdered By: Sharan Ayoub on 10-10-2024 Sodium [Moles/Vol] Sodium [Moles/volume ] in Serum or Plasma 136-145 [facility] Tacrolimuson 10-10-2024 Tacrolimus (Bld) [Mass/Vol] 7.3 ng/mL Normal <=15.0 [facility] Comment on above: Order Comment: NOTE: Result was obtained using a chemiluminescent microparticle immunoassay (CMIA) on the [employer]er i system. Optimal therapeutic ranges for immunosuppressant drugs depend upon an individual patient's current clinical state, type of organ transplant, time post-transplant, co-administration of other immunosuppressants, and other clinical factors. The results of this test should be correlated with additional clinical and laboratory data before changes in treatment regimens are made. Performed By: #### 1 1253-2 #### NORMA Cherry ([id number]) [facility] ([facility]) [address] [place] [address] Tacrolimus (Transplant) No C hgon 10-10-2024 Tacrolimus (Transplant) No Chg Sent to Ref Lab Normal [facility] Comment on above: Result Comment: PERF ORMED BY: [facility] [address] [place] [address] PATHOLOGIST LABOR EXPEDITER XI COLON M.D. Performed By: #### T ACROLIMUS., CMP, CBC #### [facility] [address] Urea nitrogen [Mass/volume] in Serum or PlasmaOrdered By: Sharan Ayoub on 10-10-2024 Urea nitrogen [Mass/Vol] Urea nitrogen [Mass/volume] in Serum or Plasma 7 [facility] WBC Auto (Bld) [#/Vol]Ordere d By: Sharan Ayoub on 10-10-2024 WBC (Bld) [#/Vol] Leukocytes [#/volume ] in Blood by Automated count High 4.1-10.5 [facility] Basophils Auto (Bld) [#/Vol] on 10-04-2024 Basophils (Bld) [#/Vol] Automated basophil count 0.0-0.1 [facility] Basophils/100 WBC Auto (Bld) on 10-04-2024 Basophils/100 WBC (Bld) Automated basophil % 0.2-2.0 [facility] Eosinophils/100 WBC Auto (Bl d)on 10-04-2024 Eosinophils/100 WBC (Bld) Automated eosinophil % Low 0.9-7.0 [facility] Erythrocyte distribution wid th Auto (RBC) [Ratio]on 10-04-2024 Erythrocyte distribution width (RBC) [Ratio] Erythrocyte distribution width [Ratio] by Automated count 11.0-15.0 [facility] Estimated glomerular filtrat ion rate (GFR) non- Americanon 10-04-2024 GFR/1.73 sq M.predicted among non-blacks MDRD (S/P/Bld) [Vol rate/Area] Estimated glomerular filtration rate (GFR) non- Low >=60 mL/min/1.73m 2 [facility] Globulin Calc (S) [Mass/Vol] on 10-04-2024 Globulin (S) [Mass/Vol] Serum globulin measurement by calculation (mass/volume) [facility] Hematocrit Auto (Bld) [Volum e fraction]on 10-04-2024 Hematocrit (Bld) [Volume fraction] Hematocrit [Volume Fraction] of Blood by Automated count 42.0-54.0 [facility] Hemoglobin [Mass/volume] in Bloodon 10-04-2024 Hemoglobin (Bld) [Mass/Vol] Hemoglobin [Mass/volume] in Blood 14.0-18.0 [facility] Laboratory - Chemistry and C hemistry - challengeon 10-04-2024 Bilirubin Ql (U) Negative NEGATIVE [facility] Glucose (U) [Mass/Vol] mg/dL Abnormal NEGATIVE [facility] Ketones Ql (U) Negative NEGATIVE [facility] pH (U) 6.5 [pH] 5.0-9.0 [facility] Specific gravity (U) [Rel density] 1.010 1.005-1.025 [facility] Urobilinogen Qn (U) 0.2 {Jacinta'U}/dL 0.2-1.0 [facility] Albumin [Mass/Vol] 2.7 g/dL Low 3.4-5.0 [facility] ALP [Catalytic activity/Vol] 368 U/L High 46-116 [facility] ALT [Catalytic activity/Vol] 128 U/L High 16-63 [facility] AST [Catalytic activity/Vol] 93 U/L High 15-37 [facility] Bilirubin [Mass/Vol] 3.1 mg/dL High 0.2-1.0 [facility] Calcium [Mass/Vol] 8.8 mg/dL 8.5-10.1 [facility] Chloride [Moles/Vol] 98 mmol/L 98-107 [facility] CO2 [Moles/Vol] 28.0 mmol/L 21.0-32.0 [facility] Creatinine [Mass/Vol] 1.62 mg/dL High 0.70-1.30 [facility] GFR/1.73 sq M.predicted MDRD (S/P/Bld) [Vol rate/Area] mL/min/{1.73_m2} >=60 mL/min/1.73m 2 [facility] Glucose [Mass/Vol] 414 mg/dL High 74-106 [facility] Potassium [Moles/Vol] 3.2 mmol/L Low 3.5-5.1 [facility] Protein [Mass/Vol] 7.0 g/dL 6.4-8.2 [facility] Sodium [Moles/Vol] 136 mmol/L 136-145 [facility] Urea nitrogen [Mass/Vol] 25.0 mg/dL High 7.0-18.0 [facility] Urea nitrogen/Creatinine [Mass ratio] 15.4 mg/mg [facility] Laboratory - Hematology and Cell countson 10-04-2024 Immature granulocytes/100 WBC (Bld) 1.0 % High 0.0-0.5 [facility] Laboratory - Specimen inform ationon 10-04-2024 Appearance (U) CLEAR CLEAR [facility] Color (U) YELLOW YELLOW [facility] Laboratory - Urinalysison Leukocyte esterase Test strip Ql (U) Negative NEGATIVE [facility] Mucus Ql (Urine sed) NONE SEEN NONE SEEN [facility] Nitrite Ql (U) Negative NEGATIVE [facility] Protein Ql (U) Negative NEG/TRACE [facility] Leukocytes [#/volume] correc roderick for nucleated erythrocytes in Blood by Automated counon 10-04-2024 WBC corrected for nucl RBC Auto (Bld) [#/Vol] Leukocytes [#/volume] corrected for nucleated erythrocytes in Blood by Automated coun High 4.0-11.0 [facility] Lymphocytes Auto (Bld) [#/Vo l]on 10-04-2024 Lymphocytes (Bld) [#/Vol] Lymphocytes [#/volume] in Blood by Automated count 1.2-3.8 [facility] Lymphocytes/100 WBC Auto (Bl d)on 10-04-2024 Lymphocytes/100 WBC (Bld) Lymphocytes/100 leukocytes in Blood by Automated count Low 20.5-60.0 [facility] MCH Auto (RBC) [Entitic mass ]on 10-04-2024 MCH (RBC) [Entitic mass] MCH [Entitic mass] by Automated count 25.9-34.0 [facility] MCHC Auto (RBC) [Mass/Vol]on 10-04-2024 MCHC (RBC) [Mass/Vol] MCHC [Mass/volume] by Automated count 29.9-35.2 [facility] MCV Auto (RBC) [Entitic vol] on 10-04-2024 MCV (RBC) [Entitic vol] MCV [Entitic volume] by Automated count 80.0-94.0 [facility] Monocytes Auto (Bld) [#/Vol] on 10-04-2024 Monocytes (Bld) [#/Vol] Automated blood monocyte count High 0.3-0.8 [facility] Monocytes/100 WBC Auto (Bld) on 10-04-2024 Monocytes/100 WBC (Bld) Automated monocyte % 1.7-12.0 [facility] Neutrophils Auto (Bld) [#/Vo l]on 10-04-2024 Neutrophils (Bld) [#/Vol] Neutrophils [#/volume] in Blood by Automated count High 1.4-6.5 [facility] Neutrophils/100 WBC Auto (Bl d)on 10-04-2024 Neutrophils/100 WBC (Bld) Automated neutrophil % High 43.0-75.0 [facility] No Panel Informationon 10-04 Urine Bacteria TRACE #/HPF Abnormal NONE SEEN [facility] Urine Occult Blood LARGE Abnormal NEGATIVE [facility] Urine Other Casts NONE SEEN #/LPF NONE SEEN [facility] Urine Other Crystals None Seen #/HPF None Seen [facility] Urine RBC 50-75 #/HPF Abnormal 0-2 [facility] Urine Squamous Epithelial Cells RARE #/LPF NONE/RARE [facility] Urine WBC NONE SEEN #/HPF NONE SEEN [facility] Eosinophils # (Auto) 0.0 10 3/uL 0.0-0.7 [facility] Immature Granulocyte # (Auto) 0.16 10 3/uL High 0.00-0.03 [facility] Platelet mean volume Auto (B ld) [Entitic vol]on 10-04-2024 Platelet mean volume (Bld) [Entitic vol] Platelet mean volume [Entitic volume] in Blood by Automated count 9.5-13.5 [facility] Platelets Auto (Bld) [#/Vol] on 10-04-2024 Platelets (Bld) [#/Vol] Platelets [#/volume] in Blood by Automated count 150-450 [facility] RBC Auto (Bld) [#/Vol]on RBC (Bld) [#/Vol] Erythrocytes [#/volu me] in Blood by Automated count 4.70-6.10 [facility] Serum or plasma albumin/glob ulin mass ratioon 10-04-2024 Albumin/Globulin [Mass ratio] Serum or plasma albumin/globulin mass ratio [facility] Serum or plasma anion gap de terminationon 10-04-2024 Anion gap [Moles/Vol] Serum or plasma an ion gap determination [facility] Alanine aminotransferase [En zymatic activity/volume] in Serum or PlasmaOrdered By: Sharan Ayoub on 09-09-2024 ALT [Catalytic activity/Vol] Alanine aminotransferase [Enzymatic activity/volume] in Serum or Plasma High 7-52 [facility] Albumin [Mass/volume] in Ser um or Plasma by Bromocresol green (BCG) dye binding methoOrdered By: Sharan Ayoub on 09-09-2024 Albumin BCG dye [Mass/Vol] Albumin [Mass/volume] in Serum or Plasma by Bromocresol green (BCG) dye binding metho Low 3.5-5.7 [facility] Alkaline phosphatase [Enzyma tic activity/volume] in Serum or PlasmaOrdered By: Sharan Ayoub on 09-09-2024 ALP [Catalytic activity/Vol] Alkaline phosphatase [Enzymatic activity/volume] in Serum or Plasma High 34-104 [facility] Aspartate aminotransferase [ Enzymatic activity/volume] in Serum or PlasmaOrdered By: Sharan Ayoub on 09-09-2024 AST [Catalytic activity/Vol] Aspartate aminotransferase [Enzymatic activity/volume] in Serum or Plasma High 13-39 [facility] Basophils Auto (Bld) [#/Vol] Ordered By: Sharan Ayoub on 09-09-2024 Basophils (Bld) [#/Vol] Automated basophil count 0.0-0.2 [facility] Basophils/100 WBC Auto (Bld) Ordered By: Sharan Ayoub on 09-09-2024 Basophils/100 WBC (Bld) Automated basophil % . [facility] Bilirubin.total [Mass/volume ] in Serum or PlasmaOrdered By: Sharan Ayoub on 09-09-2024 Bilirubin [Mass/Vol] Bilirubin.total [Mass/volume] in Serum or Plasma High 0.3-1.0 [facility] Comment on above: Samples from patient s who have taken Naproxen have shown spurious elevation in Total Bilirubin levels. A metabolite of Naproxen, O-desmethylnaproxen, has been shown to interfere with the Harlan-Uriel method for measuring Total Bilirubin. Blood tacrolimus measurement (mass/volume)Ordered By: Sharan Ayoub on 09-09-2024 Tacrolimus (Bld) [Mass/Vol] Tacrolimus [Mass/volume] in Blood [facility] CBC W Auto Differential pane l (Bld)on 09-09-2024 Basophils (Bld) [#/Vol] 0.02 x10*3/uL Normal 0.00-0.10 [facility] Comment on above: Performed By: #### 5 7021-8 #### NORMA Cherry ([id number]) [facility] ([facility]) [address] [place] [address] Basophils/100 WBC (Bld) 0.2 % Normal 0.0-2.0 [facility] Comment on above: Performed By: #### 5 7021-8 #### NORMA Cherry ([id number]) [facility] ([facility]) [address] [place] [address] Eosinophils (Bld) [#/Vol] 0.04 x10*3/uL Normal 0.00-0.70 [facility] Comment on above: Performed By: #### 5 7021-8 #### NORMA Cherry ([id number]) [facility] ([facility]) [address] [place] [address] Eosinophils/100 WBC (Bld) 0.4 % Normal 0.0-6.0 [facility] Comment on above: Performed By: #### 5 7021-8 #### NORMA Cherry ([id number]) [facility] ([facility]) [address] [place] [address] Erythrocyte distribution width (RBC) [Ratio] 13.9 % Normal 11.5-14.5 [facility] Comment on above: Performed By: #### 5 7021-8 #### NORMA Cherry ([id number]) [facility] ([facility]) [address] [place] [address] Hematocrit (Bld) [Volume fraction] 40.8 % Low 41.0-52.0 [facility] Comment on above: Performed By: #### 5 7021-8 #### NORMA Cherry ([id number]) [facility] ([facility]) [address] [place] [address] Hemoglobin (Bld) [Mass/Vol] 13.4 g/dL Low 13.5-17.5 [facility] Comment on above: Performed By: #### 5 7021-8 #### NORMA Cherry ([id number]) [facility] ([facility]) [address] [place] [address] Immature granulocytes (Bld) [#/Vol] 0.06 x10*3/uL Normal 0.00-0.70 [facility] Comment on above: Performed By: #### 5 7021-8 #### NORMA Cherry ([id number]) [facility] ([facility]) [address] [place] [address] Immature granulocytes/100 WBC (Bld) 0.6 % Normal 0.0-0.9 [facility] Comment on above: Result Comment: Nicole ture Granulocyte Count (IG) includes promyelocytes, myelocytes and metamyelocytes but does not include bands. Percent differential counts (%) should be interpreted in the context of the absolute cell counts (cells/UL). Performed By: #### 5 7021-8 #### NORMA Cherry ([id number]) [facility] ([facility]) [id number] [place] [address] Lymphocytes (Bld) [#/Vol] 1.91 x10*3/uL Normal 1.20-4.80 [facility] Comment on above: Performed By: #### 5 7021-8 #### NORMA Cherry ([id number]) [facility] ([facility]) [id number] [place] [address] Lymphocytes/100 WBC (Bld) 19.5 % Normal 13.0-44.0 [facility] Comment on above: Performed By: #### 5 7021-8 #### NORMA Cherry ([id number]) [facility] ([facility]) [address] [place] [address] MCH (RBC) [Entitic mass] 30.6 pg Normal 26.0-34.0 [facility] Comment on above: Performed By: #### 5 7021-8 #### NORMA Cherry ([id number]) [facility] ([facility]) [address] [place] [address] MCHC (RBC) [Mass/Vol] 32.8 g/dL Normal 32.0-36.0 [facility] Comment on above: Performed By: #### 5 7021-8 #### NORMA Cherry ([id number]) [facility] ([facility]) [address] [place] [address] MCV (RBC) [Entitic vol] 93 fL Normal 80-100 [facility] Comment on above: Performed By: #### 5 7021-8 #### NORMA Cherry ([id number]) [facility] ([facility]) [id number] [place] [address] Monocytes (Bld) [#/Vol] 0.63 x10*3/uL Normal 0.10-1.00 [facility] Comment on above: Performed By: #### 5 7021-8 #### NORMA Cherry ([id number]) [facility] ([facility]) [address] [place] [address] Neutrophils (Bld) [#/Vol] 7.12 x10*3/uL Normal 1.20-7.70 [facility] Comment on above: Result Comment: Perc ent differential counts (%) should be interpreted in the context of the absolute cell counts (cells/uL). Performed By: #### 5 7021-8 #### NORMA Cherry ([id number]) [facility] ([facility]) [address] [place] [address] Neutrophils/100 WBC (Bld) 72.9 % Normal 40.0-80.0 [facility] Comment on above: Performed By: #### 5 7021-8 #### NORMA Cherry ([id number]) [facility] ([facility]) [address] [place] [address] Nucleated RBC/100 WBC (Bld) [Ratio] 0.0 /100 WBCs Normal 0.0-0.0 [facility] Comment on above: Performed By: #### 5 7021-8 #### NORMA Cherry ([id number]) [facility] ([facility]) [address] [place] [address] Platelets (Bld) [#/Vol] 129 x10*3/uL Low 150-450 [facility] Comment on above: Performed By: #### 5 7021-8 #### NORMA ADHIKARI L ([id number]) [facility] ([facility]) [address] [place] [address] RBC (Bld) [#/Vol] 4.38 x10*6/uL Low 4.50-5.90 [facility] Comment on above: Performed By: #### 5 7021-8 #### NORMA ADHIKAIR L ([id number]) [facility] ([facility]) [address] [place] [address] WBC (Bld) [#/Vol] 9.8 x10*3/uL Normal 4.4-11.3 [facility] Comment on above: Performed By: #### 5 7021-8 #### NORMA Cherry ([id number]) [facility] ([facility]) [address] [place] [address] CMV DNA LÁZARO+probe Qn (P)on 11-10-2023 CMV DNA RESULT Not detected Normal Not Detected [facility] Comment on above: Order Comment: Repor table Range: 35-10,000,000 IU/mL. The yu CMV test is an in vitro nucleic acid amplification test for the quantitation of Cytomegalovirus (CMV) DNA in human EDTA plasma on the yu [facility] EHR0/8800 Systems. The analytical quantification range of this [...] the Molecular Diagnostic Laboratory, Department of Pathology, [facility]. Performed By: #### 7 2493-0 #### NORMA Cherry ([id number]) [facility] ([facility]) [address] [place] [address] CYTOMEGALOVIRUS DNA, PCR LOG IU/ML Normal [facility] Comment on above: Order Comment: Repor table Range: 35-10,000,000 IU/mL. The yu CMV test is an in vitro nucleic acid amplification test for the quantitation of Cytomegalovirus (CMV) DNA in human EDTA plasma on the yu [facility] EHR0/8800 Systems. The analytical quantification range of this [...] the Molecular Diagnostic Laboratory, Department of Pathology, [facility]. Result Comment: Not calculated Performed By: #### 7 2493-0 #### NORMA Cherry ([id number]) [facility] ([facility]) [address] [place] [address] CMV Transplanton 09-09-2024 CMV Transplant Sent to Ref Lab Normal [facility] Comment on above: Performed By: #### C BC, CMP, TACROLIMUS. #### [facility] [address] [place] [address] [facility] Calcium [Mass/volume] in Ser um or PlasmaOrdered By: Sharan Ayoub on 09-09-2024 Calcium [Mass/Vol] Calcium [Mass/volume ] in Serum or Plasma Low 8.6-10.3 [facility] Carbon dioxide, total [Moles /volume] in Serum or PlasmaOrdered By: Sharan Ayoub on 09-09-2024 CO2 [Moles/Vol] Carbon dioxide, tota l [Moles/volume] in Serum or Plasma High 21.0-31.0 [facility] Chloride [Moles/volume] in S kasi or PlasmaOrdered By: Sharan Ayoub on 09-09-2024 Chloride [Moles/Vol] Chloride [Moles/vol ume] in Serum or Plasma 98-107 [facility] Complete Blood Count Auto Di ffon 09-09-2024 Basophils (Bld) [#/Vol] 0.1 10*3/uL Normal 0.0-0.2 [facility] Comment on above: Result Comment: PERF ORMED BY: [place] [address] PATHOLOGIST LABOR EXPEDITER XI COLON M.D. Performed By: #### C BC, CMP, TACROLIMUS. #### [address] Basophils/100 WBC (Bld) 1.2 % Normal . [facility] Comment on above: Performed By: #### C BC, CMP, TACROLIMUS. #### [address] Eosinophils (Bld) [#/Vol] 0.0 10*3/uL Normal 0.0-0.45 [facility] Comment on above: Performed By: #### C BC, CMP, TACROLIMUS. #### [address] Eosinophils/100 WBC (Bld) 0.5 % Normal . [facility] Comment on above: Performed By: #### C BC, CMP, TACROLIMUS. #### [address] Erythrocyte distribution width (RBC) [Ratio] 15.3 % High 12.0-14.8 [facility] Comment on above: Performed By: #### C BC, CMP, TACROLIMUS. #### [address] Hematocrit (Bld) [Volume fraction] 40.9 % Normal 38.8-50.0 [facility] Comment on above: Performed By: #### C BC, CMP, TACROLIMUS. #### [address] Hemoglobin (Bld) [Mass/Vol] 13.5 g/dL Normal 13.0-17.0 [facility] Comment on above: Performed By: #### C BC, CMP, TACROLIMUS. #### [address] Lymphocytes (Bld) [#/Vol] 1.8 10*3/uL Normal 1.00-4.8 [facility] Comment on above: Performed By: #### C BC, CMP, TACROLIMUS. #### [address] Lymphocytes/100 WBC (Bld) 19.3 % Normal . [facility] Comment on above: Performed By: #### C BC, CMP, TACROLIMUS. #### [address] MCH (RBC) [Entitic mass] 30.3 pg Normal 27.5-35.2 [facility] Comment on above: Performed By: #### C BC, CMP, TACROLIMUS. #### [address] MCV (RBC) [Entitic vol] 92.1 fL Normal 83.5-101 [facility] Comment on above: Performed By: #### C BC, CMP, TACROLIMUS. #### [address] Mean Corpuscular HGB Conc 32.9 g/dL Normal 32.5-35.6 [facility] Comment on above: Performed By: #### C BC, CMP, TACROLIMUS. #### [address] Monocytes (Bld) [#/Vol] 0.6 10*3/uL Normal 0.0-0.8 [facility] Comment on above: Performed By: #### C BC, CMP, TACROLIMUS. #### [address] Neutrophils (Bld) [#/Vol] 7.0 10*3/uL Normal 1.8-7.7 [facility] Comment on above: Performed By: #### C BC, CMP, TACROLIMUS. #### [address] Neutrophils/100 WBC (Bld) 72.6 % Normal . [facility] Comment on above: Performed By: #### C BC, CMP, TACROLIMUS. #### [address] NRBC% 0.0 /100{WBC} Normal 0-0.5 [facility] Comment on above: Performed By: #### C BC, CMP, TACROLIMUS. #### [address] Platelet mean volume (Bld) [Entitic vol] 10.7 fL High 6.6-10.1 [facility] Comment on above: Performed By: #### C BC, CMP, TACROLIMUS. #### [address] Platelets (Bld) [#/Vol] 126 10*3/uL Low 150-450 [facility] Comment on above: Performed By: #### C BC, CMP, TACROLIMUS. #### [address] RBC (Bld) [#/Vol] 4.43 10*6/uL Normal 3.90-5.60 [facility] Comment on above: Performed By: #### C BC, CMP, TACROLIMUS. #### [address] WBC (Bld) [#/Vol] 9.6 10*3/uL Normal 4.1-10.5 [facility] Comment on above: Performed By: #### C BC, CMP, TACROLIMUS. #### [address] Complete blood count W Auto Differential panelon 09-09-2024 Monocytes/100 WBC (Bld) 6.4 % Normal . [facility] Comment on above: Performed By: #### 5 7021-8 #### NORMA Cherry ([id number]) [facility] ([facility]) [id number] [place] [address] Performed By: #### C BC, CMP, TACROLIMUS. #### [facility] [address] Comprehensive Metabolic Pane sarah 09-09-2024 Albumin [Mass/Vol] 3.0 g/dL Low 3.5-5.7 [facility] Comment on above: Performed By: #### C BC, CMP, TACROLIMUS. #### [facility] [address] [place] [id number] [facility] Albumin/Globulin [Mass ratio] 1.0 {ratio} Normal [facility] Comment on above: Performed By: #### C BC, CMP, TACROLIMUS. #### [address] ALP [Catalytic activity/Vol] 246 U/L High 34-104 [facility] Comment on above: Performed By: #### C BC, CMP, TACROLIMUS. #### [address] ALT [Catalytic activity/Vol] 94 U/L High 7-52 [facility] Comment on above: Performed By: #### C BC, CMP, TACROLIMUS. #### [place] [id number] [facility] Anion gap [Moles/Vol] 9.2 mmol/L Normal 6.0-15.0 [facility] Comment on above: Performed By: #### C BC, CMP, TACROLIMUS. #### [facility] [address] [place] [id number] [place] AST [Catalytic activity/Vol] 76 U/L High 13-39 [facility] Comment on above: Performed By: #### C BC, CMP, TACROLIMUS. #### [place] [id number] [facility] Bilirubin [Mass/Vol] 2.7 mg/dL High 0.3-1.0 [facility] Comment on above: Result Comment: Samp les from patients who have taken Naproxen have shown spurious elevation in Total Bilirubin levels. A metabolite of Naproxen, O-desmethylnaproxen, has been shown to interfere with the Jendrassik-Grof method for measuring Total Bilirubin. Performed By: #### C BC, CMP, TACROLIMUS. #### [facility] [address] Calcium [Mass/Vol] 8.5 mg/dL Low 8.6-10.3 [facility] Comment on above: Performed By: #### C BC, CMP, TACROLIMUS. #### [facility] [address] Chloride [Moles/Vol] 98 mmol/L Normal 98-107 [facility] Comment on above: Performed By: #### C BC, CMP, TACROLIMUS. #### [address] CO2 [Moles/Vol] 31.7 mmol/L High 21.0-31.0 [facility] Comment on above: Performed By: #### C BC, CMP, TACROLIMUS. #### [place] [address] [place] Creatinine [Mass/Vol] 0.92 mg/dL Normal 0.70-1.30 [facility] Comment on above: Performed By: #### C BC, CMP, TACROLIMUS. #### [place] [address] [place] GFR/1.73 sq M.predicted MDRD (S/P/Bld) [Vol rate/Area] mL/min/{1.73_m2} Normal [facility] Comment on above: Performed By: #### C BC, CMP, TACROLIMUS. #### [place] [address] [place] Globulin (S) [Mass/Vol] 3.1 g/dL Normal [facility] Comment on above: Performed By: #### C BC, CMP, TACROLIMUS. #### [place] [address] [place] Glucose [Mass/Vol] 461 mg/dL High 70-100 [facility] Comment on above: Result Comment: [place] Glucose Reference Range is dependent on time and content of last meal. Glucose of more than 200 mg/dL in a nonstressed, ambulatory subject supports the diagnosis of Diabetes Mellitus. ADA recommended reference range Performed By: #### C BC, CMP, TACROLIMUS. #### [facility] [address] [place] [phone] [facility] Potassium [Moles/Vol] 3.9 mmol/L Normal 3.5-5.1 [facility] Comment on above: Performed By: #### C BC, CMP, TACROLIMUS. #### [facility] [address] [place] [phone] [place] Protein [Mass/Vol] 6.1 g/dL Low 6.4-8.9 [facility] Comment on above: Performed By: #### C BC, CMP, TACROLIMUS. #### [facility] [address] [place] [address] [place] Sodium [Moles/Vol] 135 mmol/L Low 136-145 [facility] Comment on above: Performed By: #### C BC, CMP, TACROLIMUS. #### [facility] [address] [place] [phone] [place] Urea nitrogen [Mass/Vol] 16 mg/dL Normal 7-25 [facility] Comment on above: Performed By: #### C BC, CMP, TACROLIMUS. #### [facility] [address] [place] [phone] [place] Creatinine [Mass/volume] in Serum or PlasmaOrdered By: Sharan Ayoub on 09-09-2024 Creatinine [Mass/Vol] Creatinine [Mass/v olume] in Serum or Plasma 0.70-1.30 [facility] EBV DNA LÁZARO+probe Qnon 09-09 EBV DNA RESULT Detected Abnormal Not Detected [facility] Comment on above: Order Comment: Repor table [...] the [facility] Diagnostic Laboratory, Department of Pathology, [facility]. Performed By: #### 4 3730-1 #### NORMA Cherry ([id number]) [facility] ([facility]) [address] [place] [address] EBV PCR PLASMA LOG IU/ML 1.82 Log IU/mL Normal [facility] Comment on above: Order Comment: Repor table [...] the [facility] Diagnostic Laboratory, Department of Pathology, [facility]. Performed By: #### 4 3730-1 #### NORMA Cherry ([id number]) [facility] ([facility]) [address] [place] [address] EBV PCR, QUANT, PLASMA 66 IU/mL High Not Detected [facility] Comment on above: Order Comment: Repor table [...] the [facility] Diagnostic Laboratory, Department of Pathology, [facility]. Performed By: #### 4 3730-1 #### NORMA Cherry ([id number]) [facility] ([facility]) [address] [place] [address] EBV Transplanton 09-09-2024 EBV Transplant Sent to [facility] Comment on above: Performed By: #### C BC, CMP, TACROLIMUS. #### [facility] [address] [place] [address] [facility] Eosinophils Auto (Bld) [#/Vo l]Ordered By: Sharan Ayoub on 09-09-2024 Eosinophils (Bld) [#/Vol] Automated eosinophil count 0.0-0.45 [facility] Eosinophils/100 WBC Auto (Bl d)Ordered By: Sharan Ayoub on 09-09-2024 Eosinophils/100 WBC (Bld) Automated eosinophil % . [facility] Erythrocyte distribution wid th Auto (RBC) [Ratio]Ordered By: Sharan Ayoub on 09-09-2024 Erythrocyte distribution width (RBC) [Ratio] Erythrocyte distribution width [Ratio] by Automated count High 12.0-14.8 [facility] Globulin Calc (S) [Mass/Vol] Ordered By: Sharan Ayoub on 09-09-2024 Globulin (S) [Mass/Vol] Serum globulin measurement by calculation (mass/volume) [facility] Glucose [Mass/volume] in Ser um or PlasmaOrdered By: Sharan Ayoub on 09-09-2024 Glucose [Mass/Vol] Glucose [Mass/volume ] in Serum or Plasma High 70-100 [facility] Comment on above: ADA recommended refe rence rangeRandom Glucose Reference Range is dependent on time and content of last meal. Glucose of more than 200 mg/dL in a nonstressed, ambulatory subject supports the diagnosis of Diabetes Mellitus. Hematocrit Auto (Bld) [Volum e fraction]Ordered By: Sharan Ayoub on 09-09-2024 Hematocrit (Bld) [Volume fraction] Hematocrit [Volume Fraction] of Blood by Automated count 38.8-50.0 [facility] Hemoglobin [Mass/volume] in BloodOrdered By: Sharan Ayoub on 09-09-2024 Hemoglobin (Bld) [Mass/Vol] Hemoglobin [Mass/volume] in Blood 13.0-17.0 [facility] Leukocytes [#/volume] correc roderick for nucleated erythrocytes in Blood by Automated counOrdered By: Sharan Ayoub on 09-09-2024 WBC corrected for nucl RBC Auto (Bld) [#/Vol] Leukocytes [#/volume] corrected for nucleated erythrocytes in Blood by Automated coun 4.1-10.5 [facility] Lymphocytes Auto (Bld) [#/Vo l]Ordered By: Sharan Ayoub on 09-09-2024 Lymphocytes (Bld) [#/Vol] Lymphocytes [#/volume] in Blood by Automated count 1.00-4.8 [facility] Lymphocytes/100 WBC Auto (Bl d)Ordered By: Sharan Ayoub on 09-09-2024 Lymphocytes/100 WBC (Bld) Lymphocytes/100 leukocytes in Blood by Automated count . [facility] MCH Auto (RBC) [Entitic mass ]Ordered By: Sharan Ayoub on 09-09-2024 MCH (RBC) [Entitic mass] MCH [Entitic mass] by Automated count 27.5-35.2 [facility] MCHC Auto (RBC) [Mass/Vol]Or dered By: Sharan Ayoub on 09-09-2024 MCHC (RBC) [Mass/Vol] MCHC [Mass/volume] by Automated count 32.5-35.6 [facility] MCV Auto (RBC) [Entitic vol] Ordered By: Sharan Ayuob on 09-09-2024 MCV (RBC) [Entitic vol] MCV [Entitic volume] by Automated count 83.5-101 [facility] Magnesiumon 09-09-2024 Magnesium [Mass/Vol] 1.4 mg/dL Low 1.9-2.7 [facility] Comment on above: Result Comment: PERF ORMED BY: [place] [address] PATHOLOGIST LABOR EXPEDITER XI COLON M.D. Performed By: #### C BC, CMP, TACROLIMUS. #### [address] Magnesium [Mass/volume] in S kasi or PlasmaOrdered By: Sharan Ayoub on 09-09-2024 Magnesium [Mass/Vol] Magnesium [Mass/vol ume] in Serum or Plasma Low 1.9-2.7 [facility] Monocytes Auto (Bld) [#/Vol] Ordered By: Sharan Ayoub on 09-09-2024 Monocytes (Bld) [#/Vol] Automated blood monocyte count 0.0-0.8 [facility] Monocytes/100 WBC Auto (Bld) Ordered By: Sharan Ayoub on 09-09-2024 Monocytes/100 WBC (Bld) Automated monocyte % . [facility] Neutrophils Auto (Bld) [#/Vo l]Ordered By: Sharan Ayoub on 09-09-2024 Neutrophils (Bld) [#/Vol] Neutrophils [#/volume] in Blood by Automated count 1.8-7.7 [facility] Neutrophils/100 WBC Auto (Bl d)Ordered By: Sharan Ayoub on 09-09-2024 Neutrophils/100 WBC (Bld) Automated neutrophil % . [facility] No Panel InformationOrdered By: Sharan Ayoub on 09-09-2024 Cytomegalovirus Detection Sent to ref lab [facility] [place] Virus Serology Sent to [facility] Estimated GFR (CKD-EPI) > 60.0 mL/Min [facility] Creatinine Clearance (Chem N/A [facility] Nucleated erythrocytes [Pres ence] in Blood by Automated countOrdered By: Sharan Ayoub on 09-09-2024 Nucleated RBC Auto Ql (Bld) Nucleated erythrocytes [Presence] in Blood by Automated count 0-0.5 [facility] Platelet mean volume Auto (B ld) [Entitic vol]Ordered By: Sharan Ayoub on 09-09-2024 Platelet mean volume (Bld) [Entitic vol] Platelet mean volume [Entitic volume] in Blood by Automated count High 6.6-10.1 [facility] Platelets Auto (Bld) [#/Vol] Ordered By: Sharan Ayoub on 09-09-2024 Platelets (Bld) [#/Vol] Platelets [#/volume] in Blood by Automated count Low 150-450 [facility] Potassium [Moles/volume] in Serum or PlasmaOrdered By: Sharan Ayoub on 09-09-2024 Potassium [Moles/Vol] Potassium [Moles/v olume] in Serum or Plasma 3.5-5.1 [facility] Protein [Mass/volume] in Ser um or PlasmaOrdered By: Sharan Ayoub on 09-09-2024 Protein [Mass/Vol] Protein [Mass/volume ] in Serum or Plasma Low 6.4-8.9 [facility] RBC Auto (Bld) [#/Vol]Ordere d By: Sharan Ayoub on 09-09-2024 RBC (Bld) [#/Vol] Erythrocytes [#/volu me] in Blood by Automated count 3.90-5.60 [facility] Serum or plasma albumin/glob ulin mass ratioOrdered By: Sharan Ayoub on 09-09-2024 Albumin/Globulin [Mass ratio] Serum or plasma albumin/globulin mass ratio [facility] Serum or plasma anion gap de terminationOrdered By: Sharan Ayoub on 09-09-2024 Anion gap [Moles/Vol] Serum or plasma an ion gap determination 6.0-15.0 [facility] Sodium [Moles/volume] in Ser um or PlasmaOrdered By: Sharan Ayoub on 09-09-2024 Sodium [Moles/Vol] Sodium [Moles/volume ] in Serum or Plasma Low 136-145 [facility] Tacrolimuson 09-09-2024 Tacrolimus (Bld) [Mass/Vol] 9.4 ng/mL Normal <=15.0 [facility] Comment on above: Order Comment: NOTE: Result was obtained using a chemiluminescent microparticle immunoassay (CMIA) on the Tent Worker i system. Optimal therapeutic ranges for immunosuppressant drugs depend upon an individual patient's current clinical state, type of organ transplant, time post-transplant, co-administration of other immunosuppressants, and other clinical factors. The results of this test should be correlated with additional clinical and laboratory data before changes in treatment regimens are made. Performed By: #### 1 1253-2 #### NORMA Cherry ([id number]) [facility] ([facility]) [address] [place] [address] Tacrolimus (Transplant) No C hgon 09-09-2024 Tacrolimus (Transplant) No Chg Sent to Ref Lab Normal [facility] Comment on above: Result Comment: PERF ORMED BY: [facility] [address] [facility] [place] [address] PATHOLOGIST LABOR EXPEDITER XI COLON M.D. Performed By: #### C BC, CMP, TACROLIMUS. #### [address] Urea nitrogen [Mass/volume] in Serum or PlasmaOrdered By: Sharan Ayoub on 09-09-2024 Urea nitrogen [Mass/Vol] Urea nitrogen [Mass/volume] in Serum or Plasma 7-25 [facility] WBC Auto (Bld) [#/Vol]Ordere d By: Sharan Ayoub on 09-09-2024 WBC (Bld) [#/Vol] Leukocytes [#/volume ] in Blood by Automated count 4.1-10.5 [facility] Alanine aminotransferase [En zymatic activity/volume] in Serum or PlasmaOrdered By: Sharan Ayoub on 08-15-2024 ALT [Catalytic activity/Vol] Alanine aminotransferase [Enzymatic activity/volume] in Serum or Plasma High 7-52 [facility] Albumin [Mass/volume] in Ser um or Plasma by Bromocresol green (BCG) dye binding methoOrdered By: Sharan Ayoub on 08-15-2024 Albumin BCG dye [Mass/Vol] Albumin [Mass/volume] in Serum or Plasma by Bromocresol green (BCG) dye binding metho Low 3.5-5.7 [facility] Alkaline phosphatase [Enzyma tic activity/volume] in Serum or PlasmaOrdered By: Sharan Ayoub on 08-15-2024 ALP [Catalytic activity/Vol] Alkaline phosphatase [Enzymatic activity/volume] in Serum or Plasma High 34-104 [facility] Aspartate aminotransferase [ Enzymatic activity/volume] in Serum or PlasmaOrdered By: Sharan Ayoub on 08-15-2024 AST [Catalytic activity/Vol] Aspartate aminotransferase [Enzymatic activity/volume] in Serum or Plasma High 13-39 [facility] Basophils Auto (Bld) [#/Vol] Ordered By: Sharan Ayoub on 08-15-2024 Basophils (Bld) [#/Vol] Automated basophil count 0.0-0.2 [facility] Basophils/100 WBC Auto (Bld) Ordered By: Sharan Ayoub on 08-15-2024 Basophils/100 WBC (Bld) Automated basophil % . [facility] Bilirubin.total [Mass/volume ] in Serum or PlasmaOrdered By: Sharan Ayoub on 08-15-2024 Bilirubin [Mass/Vol] Bilirubin.total [Mass/volume] in Serum or Plasma High 0.3-1.0 [facility] Comment on above: Samples from patient s who have taken Naproxen have shown spurious elevation in Total Bilirubin levels. A metabolite of Naproxen, O-desmethylnaproxen, has been shown to interfere with the Harlan-Uriel method for measuring Total Bilirubin. Blood tacrolimus measurement (mass/volume)Ordered By: Sharan Ayoub on 08-15-2024 Tacrolimus (Bld) [Mass/Vol] Tacrolimus [Mass/volume] in Blood [facility] Calcium [Mass/volume] in Ser um or PlasmaOrdered By: Sharan Ayoub on 08-15-2024 Calcium [Mass/Vol] Calcium [Mass/volume ] in Serum or Plasma 8.6-10.3 [facility] Carbon dioxide, total [Moles /volume] in Serum or PlasmaOrdered By: Sharan Ayoub on 08-15-2024 CO2 [Moles/Vol] Carbon dioxide, tota l [Moles/volume] in Serum or Plasma High 21.0-31.0 [facility] Chloride [Moles/volume] in S kasi or PlasmaOrdered By: Sharan Ayoub on 08-15-2024 Chloride [Moles/Vol] Chloride [Moles/vol ume] in Serum or Plasma 98-107 [facility] Complete Blood Count Auto Di ffon 08-15-2024 Basophils (Bld) [#/Vol] 0.1 10*3/uL Normal 0.0-0.2 [facility] Comment on above: Result Comment: PERF ORMED BY: [place] [address] PATHOLOGIST LABOR EXPEDITER XI COLON M.D. Performed By: #### C BC, CMP, TACROLIMUS. #### [address] Basophils/100 WBC (Bld) 0.5 % Normal . [facility] Comment on above: Performed By: #### C BC, CMP, TACROLIMUS. #### [address] Eosinophils (Bld) [#/Vol] 0.1 10*3/uL Normal 0.0-0.45 [facility] Comment on above: Performed By: #### C BC, CMP, TACROLIMUS. #### [address] Eosinophils/100 WBC (Bld) 0.5 % Normal . [facility] Comment on above: Performed By: #### C BC, CMP, TACROLIMUS. #### [address] Erythrocyte distribution width (RBC) [Ratio] 14.9 % High 12.0-14.8 [facility] Comment on above: Performed By: #### C BC, CMP, TACROLIMUS. #### [address] Hematocrit (Bld) [Volume fraction] 40.7 % Normal 38.8-50.0 [facility] Comment on above: Performed By: #### C BC, CMP, TACROLIMUS. #### [address] Hemoglobin (Bld) [Mass/Vol] 13.8 g/dL Normal 13.0-17.0 [facility] Comment on above: Performed By: #### C BC, CMP, TACROLIMUS. #### [address] Lymphocytes (Bld) [#/Vol] 2.1 10*3/uL Normal 1.00-4.8 [facility] Comment on above: Performed By: #### C BC, CMP, TACROLIMUS. #### [address] Lymphocytes/100 WBC (Bld) 19.8 % Normal . [facility] Comment on above: Performed By: #### C BC, CMP, TACROLIMUS. #### [address] MCH (RBC) [Entitic mass] 31.1 pg Normal 27.5-35.2 [facility] Comment on above: Performed By: #### C BC, CMP, TACROLIMUS. #### [address] MCV (RBC) [Entitic vol] 91.4 fL Normal 83.5-101 [facility] Comment on above: Performed By: #### C BC, CMP, TACROLIMUS. #### [address] Mean Corpuscular HGB Conc 34.0 g/dL Normal 32.5-35.6 [facility] Comment on above: Performed By: #### C BC, CMP, TACROLIMUS. #### [address] Monocytes (Bld) [#/Vol] 0.8 10*3/uL Normal 0.0-0.8 [facility] Comment on above: Performed By: #### C BC, CMP, TACROLIMUS. #### [place] [address] [place] Monocytes/100 WBC (Bld) 7.2 % Normal . [facility] Comment on above: Performed By: #### C BC, CMP, TACROLIMUS. #### [address] Neutrophils (Bld) [#/Vol] 7.5 10*3/uL Normal 1.8-7.7 [facility] Comment on above: Performed By: #### C BC, CMP, TACROLIMUS. #### [address] Neutrophils/100 WBC (Bld) 72.0 % Normal . [facility] Comment on above: Performed By: #### C BC, CMP, TACROLIMUS. #### [address] NRBC% 0.2 /100{WBC} Normal 0-0.5 [facility] Comment on above: Performed By: #### C BC, CMP, TACROLIMUS. #### [address] Platelet mean volume (Bld) [Entitic vol] 10.9 fL High 6.6-10.1 [facility] Comment on above: Performed By: #### C BC, CMP, TACROLIMUS. #### [address] Platelets (Bld) [#/Vol] 152 10*3/uL Normal 150-450 [facility] Comment on above: Performed By: #### C BC, CMP, TACROLIMUS. #### [address] RBC (Bld) [#/Vol] 4.45 10*6/uL Normal 3.90-5.60 [facility] Comment on above: Performed By: #### C BC, CMP, TACROLIMUS. #### [address] WBC (Bld) [#/Vol] 10.4 10*3/uL Normal 4.1-10.5 [facility] Comment on above: Performed By: #### C BC, CMP, TACROLIMUS. #### [address] Comprehensive Metabolic Pane sarah 08-15-2024 Albumin [Mass/Vol] 3.1 g/dL Low 3.5-5.7 [facility] Comment on above: Performed By: #### C BC, CMP, TACROLIMUS. #### [address] Albumin/Globulin [Mass ratio] 1.1 {ratio} Normal [facility] Comment on above: Performed By: #### C BC, CMP, TACROLIMUS. 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 Performed By: #### C BC, CMP, TACROLIMUS. #### [address] ALT [Catalytic activity/Vol] 86 U/L High 7-52 [facility] Comment on above: Performed By: #### C BC, CMP, TACROLIMUS. #### [address] Anion gap [Moles/Vol] 10.3 mmol/L Normal 6.0-15.0 [facility] Comment on above: Performed By: #### C BC, CMP, TACROLIMUS. #### [address] AST [Catalytic activity/Vol] 84 U/L High 13-39 [facility] Comment on above: Performed By: #### C BC, CMP, TACROLIMUS. #### [address] Bilirubin [Mass/Vol] 3.0 mg/dL High 0.3-1.0 [facility] Comment on above: Result Comment: Samp les from patients who have taken Naproxen have shown spurious elevation in Total Bilirubin levels. A metabolite of Naproxen, O-desmethylnaproxen, has been shown to interfere with the Jendrassik-Grof method for measuring Total Bilirubin. Performed By: #### C BC, CMP, TACROLIMUS. #### [address] Calcium [Mass/Vol] 8.8 mg/dL Normal 8.6-10.3 [facility] Comment on above: Performed By: #### C BC, CMP, TACROLIMUS. #### [facility] [address] Chloride [Moles/Vol] 102 mmol/L Normal 98-107 [facility] Comment on above: Performed By: #### C BC, CMP, TACROLIMUS. #### [facility] [address] CO2 [Moles/Vol] 32.0 mmol/L High 21.0-31.0 [facility] Comment on above: Performed By: #### C BC, CMP, TACROLIMUS. #### [address] Creatinine [Mass/Vol] 0.99 mg/dL Normal 0.70-1.30 [facility] Comment on above: Performed By: #### C BC, CMP, TACROLIMUS. #### [address] GFR/1.73 sq M.predicted MDRD (S/P/Bld) [Vol rate/Area] mL/min/{1.73_m2} Normal [facility] Comment on above: Performed By: #### C BC, CMP, TACROLIMUS. #### [address] Globulin (S) [Mass/Vol] 2.9 g/dL Normal [facility] Comment on above: Performed By: #### C BC, CMP, TACROLIMUS. #### [address] Glucose [Mass/Vol] 152 mg/dL High 70-100 [facility] Comment on above: Result Comment: [place] Glucose Reference Range is dependent on time and content of last meal. Glucose of more than 200 mg/dL in a nonstressed, ambulatory subject supports the diagnosis of Diabetes Mellitus. ADA recommended reference range Performed By: #### C BC, CMP, TACROLIMUS. #### [address] Potassium [Moles/Vol] 3.3 mmol/L Low 3.5-5.1 [facility] Comment on above: Performed By: #### C BC, CMP, TACROLIMUS. #### [facility] [address] [place] [address] [place] Protein [Mass/Vol] 6.0 g/dL Low 6.4-8.9 [facility] Comment on above: Performed By: #### C BC, CMP, TACROLIMUS. #### [facility] [address] [place] [address] [place] Sodium [Moles/Vol] 141 mmol/L Normal 136-145 [facility] Comment on above: Performed By: #### C BC, CMP, TACROLIMUS. #### [facility] [address] [place] [address] [place] Urea nitrogen [Mass/Vol] 17 mg/dL Normal 7-25 [facility] Comment on above: Performed By: #### C BC, CMP, TACROLIMUS. #### [facility] [address] [place] [address] [place] Creatinine [Mass/volume] in Serum or PlasmaOrdered By: Sharan Ayoub on 08-15-2024 Creatinine [Mass/Vol] Creatinine [Mass/v olume] in Serum or Plasma 0.70-1.30 [facility] Eosinophils Auto (Bld) [#/Vo l]Ordered By: Sharan Ayoub on 08-15-2024 Eosinophils (Bld) [#/Vol] Automated eosinophil count 0.0-0.45 [facility] Eosinophils/100 WBC Auto (Bl d)Ordered By: Sharan Ayoub on 08-15-2024 Eosinophils/100 WBC (Bld) Automated eosinophil % . [facility] Erythrocyte distribution wid th Auto (RBC) [Ratio]Ordered By: Sharan Ayoub on 08-15-2024 Erythrocyte distribution width (RBC) [Ratio] Erythrocyte distribution width [Ratio] by Automated count High 12.0-14.8 [facility] Globulin Calc (S) [Mass/Vol] Ordered By: Sharan Ayoub on 08-15-2024 Globulin (S) [Mass/Vol] Serum globulin measurement by calculation (mass/volume) [facility] Glucose [Mass/volume] in Ser um or PlasmaOrdered By: Sharan Ayoub on 08-15-2024 Glucose [Mass/Vol] Glucose [Mass/volume ] in Serum or Plasma High 70-100 [facility] Comment on above: ADA recommended refe rence rangeRandom Glucose Reference Range is dependent on time and content of last meal. Glucose of more than 200 mg/dL in a nonstressed, ambulatory subject supports the diagnosis of Diabetes Mellitus. Hematocrit Auto (Bld) [Volum e fraction]Ordered By: Sharan Ayoub on 08-15-2024 Hematocrit (Bld) [Volume fraction] Hematocrit [Volume Fraction] of Blood by Automated count 38.8-50.0 [facility] Hemoglobin [Mass/volume] in BloodOrdered By: Sharan Ayoub on 08-15-2024 Hemoglobin (Bld) [Mass/Vol] Hemoglobin [Mass/volume] in Blood 13.0-17.0 [facility] Leukocytes [#/volume] correc roderick for nucleated erythrocytes in Blood by Automated counOrdered By: Sharan Ayoub on 08-15-2024 WBC corrected for nucl RBC Auto (Bld) [#/Vol] Leukocytes [#/volume] corrected for nucleated erythrocytes in Blood by Automated coun 4.1-10.5 [facility] Lymphocytes Auto (Bld) [#/Vo l]Ordered By: Sharan Ayoub on 08-15-2024 Lymphocytes (Bld) [#/Vol] Lymphocytes [#/volume] in Blood by Automated count 1.00-4.8 [facility] Lymphocytes/100 WBC Auto (Bl d)Ordered By: Sharan Ayoub on 08-15-2024 Lymphocytes/100 WBC (Bld) Lymphocytes/100 leukocytes in Blood by Automated count . [facility] MCH Auto (RBC) [Entitic mass ]Ordered By: Sharan Ayoub on 08-15-2024 MCH (RBC) [Entitic mass] MCH [Entitic mass] by Automated count 27.5-35.2 [facility] MCHC Auto (RBC) [Mass/Vol]Or dered By: Sharan Ayoub on 08-15-2024 MCHC (RBC) [Mass/Vol] MCHC [Mass/volume] by Automated count 32.5-35.6 [facility] MCV Auto (RBC) [Entitic vol] Ordered By: Sharan Ayoub on 08-15-2024 MCV (RBC) [Entitic vol] MCV [Entitic volume] by Automated count 83.5-101 [facility] Monocytes Auto (Bld) [#/Vol] Ordered By: Sharan Ayoub on 08-15-2024 Monocytes (Bld) [#/Vol] Automated blood monocyte count 0.0-0.8 [facility] Monocytes/100 WBC Auto (Bld) Ordered By: Sharan Ayoub on 08-15-2024 Monocytes/100 WBC (Bld) Automated monocyte % . [facility] Neutrophils Auto (Bld) [#/Vo l]Ordered By: Sharan Ayoub on 08-15-2024 Neutrophils (Bld) [#/Vol] Neutrophils [#/volume] in Blood by Automated count 1.8-7.7 [facility] Neutrophils/100 WBC Auto (Bl d)Ordered By: Sharan Ayoub on 08-15-2024 Neutrophils/100 WBC (Bld) Automated neutrophil % . [facility] No Panel InformationOrdered By: Sharan Ayoub on 08-15-2024 Estimated GFR (CKD-EPI) > 60.0 mL/Min [facility] Creatinine Clearance (Chem N/A [facility] Nucleated erythrocytes [Pres ence] in Blood by Automated countOrdered By: Sharan Ayoub on 08-15-2024 Nucleated RBC Auto Ql (Bld) Nucleated erythrocytes [Presence] in Blood by Automated count 0-0.5 [facility] Platelet mean volume Auto (B ld) [Entitic vol]Ordered By: Sharan Ayoub on 08-15-2024 Platelet mean volume (Bld) [Entitic vol] Platelet mean volume [Entitic volume] in Blood by Automated count High 6.6-10.1 [facility] Platelets Auto (Bld) [#/Vol] Ordered By: Sharan Ayoub on 08-15-2024 Platelets (Bld) [#/Vol] Platelets [#/volume] in Blood by Automated count 150-450 [facility] Potassium [Moles/volume] in Serum or PlasmaOrdered By: Sharan Ayoub on 08-15-2024 Potassium [Moles/Vol] Potassium [Moles/v olume] in Serum or Plasma Low 3.5-5.1 [facility] Protein [Mass/volume] in Ser um or PlasmaOrdered By: Sharan Ayoub on 08-15-2024 Protein [Mass/Vol] Protein [Mass/volume ] in Serum or Plasma Low 6.4-8.9 [facility] RBC Auto (Bld) [#/Vol]Ordere d By: Sharan Ayoub on 08-15-2024 RBC (Bld) [#/Vol] Erythrocytes [#/volu me] in Blood by Automated count 3.90-5.60 [facility] Serum or plasma albumin/glob ulin mass ratioOrdered By: Sharan Ayoub on 08-15-2024 Albumin/Globulin [Mass ratio] Serum or plasma albumin/globulin mass ratio [facility] Serum or plasma anion gap de terminationOrdered By: Sharan Ayoub on 08-15-2024 Anion gap [Moles/Vol] Serum or plasma an ion gap determination 6.0-15.0 [facility] Sodium [Moles/volume] in Ser um or PlasmaOrdered By: Sharan Ayoub on 08-15-2024 Sodium [Moles/Vol] Sodium [Moles/volume ] in Serum or Plasma 136-145 [facility] Tacrolimuson 08-15-2024 Tacrolimus (Bld) [Mass/Vol] 7.4 ng/mL Normal <=15.0 [facility] Comment on above: Order Comment: NOTE: Result was obtained using a chemiluminescent microparticle immunoassay (CMIA) on the Tent [employer]er i system. Optimal therapeutic ranges for immunosuppressant drugs depend upon an individual patient's current clinical state, type of organ transplant, time post-transplant, co-administration of other immunosuppressants, and other clinical factors. The results of this test should be correlated with additional clinical and laboratory data before changes in treatment regimens are made. Performed By: #### 1 [id number] #### NORMA Cherry ([id number]) [facility] ([facility]) [address] [place] [address] Tacrolimus (Transplant) No C hgon 08-15-2024 Tacrolimus (Transplant) No Chg Sent to Ref Lab Normal [facility] Comment on above: Result Comment: PERF ORMED BY: [facility] [address] [place] [address] PATHOLOGIST LABOR EXPEDITER XI COLON M.D. Performed By: #### C BC, CMP, TACROLIMUS. #### [facility] [address] Urea nitrogen [Mass/volume] in Serum or PlasmaOrdered By: Sharan Ayoub on 08-15-2024 Urea nitrogen [Mass/Vol] Urea nitrogen [Mass/volume] in Serum or Plasma 04-25 [facility] WBC Auto (Bld) [#/Vol]Ordere d By: Sharan Ayoub on 08-15-2024 WBC (Bld) [#/Vol] Leukocytes [#/volume ] in Blood by Automated count 4.1-10.5 [facility] Basophils Auto (Bld) [#/Vol] on 07-16-2024 Basophils (Bld) [#/Vol] 0.0 10 3/uL 0.0-0.1 [facility] Basophils (Bld) [#/Vol] Automated basophil count 0.0-0.1 [facility] Basophils/100 WBC Auto (Bld) on 07-16-2024 Basophils/100 WBC (Bld) 0.2 % 0.2-2.0 [facility] Basophils/100 WBC (Bld) Automated basophil % 0.2-2.0 [facility] Eosinophils/100 WBC Auto (Bl d)on 07-16-2024 Eosinophils/100 WBC (Bld) 1.4 % 0.9-7.0 [facility] Eosinophils/100 WBC (Bld) Automated eosinophil % 0.9-7.0 [facility] Erythrocyte distribution wid th Auto (RBC) [Ratio]on 07-16-2024 Erythrocyte distribution width (RBC) [Ratio] 14.1 % 11.0-. [facility] Erythrocyte distribution width (RBC) [Ratio] Erythrocyte distribution width [Ratio] by Automated count .-. [facility] Estimated glomerular filtrat ion rate (GFR) non- Americanon 07-16-2024 GFR/1.73 sq M.predicted among non-blacks MDRD (S/P/Bld) [Vol rate/Area] mL/min/{1.73_m2} >=60 mL/min/1.73m 2 [facility] GFR/1.73 sq M.predicted among non-blacks MDRD (S/P/Bld) [Vol rate/Area] Estimated glomerular filtration rate (GFR) non- >=60 mL/min/1.73m 2 [facility] Globulin Calc (S) [Mass/Vol] on 07-16-2024 Globulin (S) [Mass/Vol] 3.5 g/dL [facility] Globulin (S) [Mass/Vol] Serum globulin measurement by calculation (mass/volume) [facility] Hematocrit Auto (Bld) [Volum e fraction]on 07-16-2024 Hematocrit (Bld) [Volume fraction] 39.2 % Low 42.0-54.0 [facility] Hematocrit (Bld) [Volume fraction] Hematocrit [Volume Fraction] of Blood by Automated count Low 42.0-54.0 [facility] Hemoglobin [Mass/volume] in Bloodon 07-16-2024 Hemoglobin (Bld) [Mass/Vol] 13.1 g/dL Low 14.0-18.0 [facility] Hemoglobin (Bld) [Mass/Vol] Hemoglobin [Mass/volume] in Blood Low 14.0-18.0 [facility] Laboratory - Chemistry and C hemistry - challengeon 07-16-2024 Bilirubin Ql (U) Negative NEGATIVE [facility] Glucose (U) [Mass/Vol] Negative NEGATIVE [facility] Ketones Ql (U) Negative NEGATIVE [facility] pH (U) 6.0 [pH] 5.0-9.0 [facility] Specific gravity (U) [Rel density] 1.020 1.005-1.025 [facility] Urobilinogen Qn (U) 1.0 {Jacinta'U}/dL 0.2-1.0 [facility] Albumin [Mass/Vol] 1.9 g/dL Low 3.4-5.0 [facility] ALP [Catalytic activity/Vol] 239 U/L High 46-116 [facility] ALT [Catalytic activity/Vol] 103 U/L High 16-63 [facility] AST [Catalytic activity/Vol] 109 U/L High 15-37 [facility] Bilirubin [Mass/Vol] 2.7 mg/dL High 0.2-1.0 [facility] Calcium [Mass/Vol] 8.4 mg/dL Low 8.5-10.1 [facility] Chloride [Moles/Vol] 110 mmol/L High 98-107 [facility] CO2 [Moles/Vol] 29.4 mmol/L 21.0-32.0 [facility] Creatinine [Mass/Vol] 1.09 mg/dL 0.70-1.30 [facility] GFR/1.73 sq M.predicted MDRD (S/P/Bld) [Vol rate/Area] mL/min/{1.73_m2} >=60 mL/min/1.73m 2 [facility] Glucose [Mass/Vol] 100 mg/dL 74-106 [facility] Potassium [Moles/Vol] 3.4 mmol/L Low 3.5-5.1 [facility] Protein [Mass/Vol] 5.4 g/dL Low 6.4-8.2 [facility] Sodium [Moles/Vol] 145 mmol/L 136-145 [facility] Urea nitrogen [Mass/Vol] 21.0 mg/dL High 7.0-18.0 [facility] Urea nitrogen/Creatinine [Mass ratio] 19.3 mg/mg [facility] Laboratory - Hematology and Cell countson 07-16-2024 Immature granulocytes/100 WBC (Bld) 0.6 % High 0.0-0.5 [facility] Laboratory - Specimen inform ationon 07-16-2024 Appearance (U) CLEAR CLEAR [facility] Color (U) LT. YELLOW YELLOW [facility] Laboratory - Urinalysison Leukocyte esterase Test strip Ql (U) TRACE Abnormal NEGATIVE [facility] Mucus Ql (Urine sed) NONE SEEN NONE SEEN [facility] Nitrite Ql (U) Negative NEGATIVE [facility] Protein Ql (U) Negative NEG/TRACE [facility] Leukocytes [#/volume] correc roderick for nucleated erythrocytes in Blood by Automated counon 07-16-2024 WBC corrected for nucl RBC Auto (Bld) [#/Vol] 9.8 10 3/uL 4.0-11.0 [facility] WBC corrected for nucl RBC Auto (Bld) [#/Vol] Leukocytes [#/volume] corrected for nucleated erythrocytes in Blood by Automated coun 4.0-11.0 [facility] Lymphocytes Auto (Bld) [#/Vo l]on 07-16-2024 Lymphocytes (Bld) [#/Vol] 2.7 10 3/uL 1.2-3.8 [facility] Lymphocytes (Bld) [#/Vol] Lymphocytes [#/volume] in Blood by Automated count 1.2-3.8 [facility] Lymphocytes/100 WBC Auto (Bl d)on 07-16-2024 Lymphocytes/100 WBC (Bld) 27.9 % 20.5-60.0 [facility] Lymphocytes/100 WBC (Bld) Lymphocytes/100 leukocytes in Blood by Automated count 20.5-60.0 [facility] MCH Auto (RBC) [Entitic mass ]on 07-16-2024 MCH (RBC) [Entitic mass] 31.3 pg 25.9-34.0 [facility] MCH (RBC) [Entitic mass] MCH [Entitic mass] by Automated count 25.9-34.0 [facility] MCHC Auto (RBC) [Mass/Vol]on 07-16-2024 MCHC (RBC) [Mass/Vol] 33.4 g/dL 29.9-35.2 [facility] MCHC (RBC) [Mass/Vol] MCHC [Mass/volume] by Automated count 29.9-35.2 [facility] MCV Auto (RBC) [Entitic vol] on 07-16-2024 MCV (RBC) [Entitic vol] 93.6 fL 80.0-94.0 [facility] MCV (RBC) [Entitic vol] MCV [Entitic volume] by Automated count 80.0-94.0 [facility] Monocytes Auto (Bld) [#/Vol] on 07-16-2024 Monocytes (Bld) [#/Vol] 0.6 10 3/uL 0.3-0.8 [facility] Monocytes (Bld) [#/Vol] Automated blood monocyte count 0.3-0.8 [facility] Monocytes/100 WBC Auto (Bld) on 07-16-2024 Monocytes/100 WBC (Bld) 6.2 % 1.7-12.0 [facility] Monocytes/100 WBC (Bld) Automated monocyte % 1.7-12.0 [facility] Neutrophils Auto (Bld) [#/Vo l]on 07-16-2024 Neutrophils (Bld) [#/Vol] 6.3 10 3/uL 1.4-6.5 [facility] Neutrophils (Bld) [#/Vol] Neutrophils [#/volume] in Blood by Automated count 1.4-6.5 [facility] Neutrophils/100 WBC Auto (Bl d)on 07-16-2024 Neutrophils/100 WBC (Bld) 63.7 % 43.0-75.0 [facility] Neutrophils/100 WBC (Bld) Automated neutrophil % 43.0-75.0 [facility] No Panel Informationon 07-16 Urine Bacteria TRACE #/HPF Abnormal NONE SEEN [facility] Urine Occult Blood MODERATE Abnormal NEGATIVE [facility] Urine Other Casts NONE SEEN #/LPF NONE SEEN [facility] Urine Other Crystals None Seen #/HPF None Seen [facility] Urine RBC 20-50 #/HPF Abnormal 0-2 [facility] Urine Squamous Epithelial Cells NONE SEEN #/LPF NONE/RARE [facility] Urine WBC 2-5 #/HPF Abnormal NONE SEEN [facility] Eosinophils # (Auto) 0.1 10 3/uL 0.0-0.7 [facility] Immature Granulocyte # (Auto) 0.06 10 3/uL High 0.00-0.03 [facility] Platelet mean volume Auto (B ld) [Entitic vol]on 07-16-2024 Platelet mean volume (Bld) [Entitic vol] 11.5 fL 9.5-13.5 [facility] Platelet mean volume (Bld) [Entitic vol] Platelet mean volume [Entitic volume] in Blood by Automated count 9.5-13.5 [facility] Platelets Auto (Bld) [#/Vol] on 07-16-2024 Platelets (Bld) [#/Vol] 117 10 3/uL Low 150-450 [facility] Platelets (Bld) [#/Vol] Platelets [#/volume] in Blood by Automated count Low 150-450 [facility] RBC Auto (Bld) [#/Vol]on RBC (Bld) [#/Vol] 4.19 10 6/uL Low 4.70-6.10 [facility] RBC (Bld) [#/Vol] Erythrocytes [#/volu me] in Blood by Automated count Low 4.70-6.10 [facility] Serum or plasma albumin/glob ulin mass ratioon 07-16-2024 Albumin/Globulin [Mass ratio] 0.5 {ratio} [facility] Albumin/Globulin [Mass ratio] Serum or plasma albumin/globulin mass ratio [facility] Serum or plasma anion gap de terminationon 07-16-2024 Anion gap [Moles/Vol] 9.0 mmol/L [facility] Anion gap [Moles/Vol] Serum or plasma an ion gap determination [facility] Basophils Auto (Bld) [#/Vol] on 07-15-2024 Basophils (Bld) [#/Vol] 0.0 10 3/uL 0.0-0.1 [facility] Basophils (Bld) [#/Vol] Automated basophil count 0.0-0.1 [facility] Basophils/100 WBC Auto (Bld) on 07-15-2024 Basophils/100 WBC (Bld) 0.1 % Low 0.2-2.0 [facility] Basophils/100 WBC (Bld) Automated basophil % Low 0.2-2.0 [facility] Eosinophils/100 WBC Auto (Bl d)on 07-15-2024 Eosinophils/100 WBC (Bld) 0.0 % Low 0.9-7.0 [facility] Eosinophils/100 WBC (Bld) Automated eosinophil % Low 0.9-7.0 [facility] Erythrocyte distribution wid th Auto (RBC) [Ratio]on 07-15-2024 Erythrocyte distribution width (RBC) [Ratio] 13.8 % 11.0-15.0 [facility] Erythrocyte distribution width (RBC) [Ratio] Erythrocyte distribution width [Ratio] by Automated count 11.0-15.0 [facility] Estimated glomerular filtrat ion rate (GFR) non- Americanon 07-15-2024 GFR/1.73 sq M.predicted among non-blacks MDRD (S/P/Bld) [Vol rate/Area] mL/min/{1.73_m2} >=60 mL/min/1.73m 2 [facility] GFR/1.73 sq M.predicted among non-blacks MDRD (S/P/Bld) [Vol rate/Area] Estimated glomerular filtration rate (GFR) non- >=60 mL/min/1.73m 2 [facility] Globulin Calc (S) [Mass/Vol] on 07-15-2024 Globulin (S) [Mass/Vol] 3.7 g/dL [facility] Globulin (S) [Mass/Vol] Serum globulin measurement by calculation (mass/volume) [facility] Hematocrit Auto (Bld) [Volum e fraction]on 07-15-2024 Hematocrit (Bld) [Volume fraction] 40.3 % Low 42.0-54.0 [facility] Hematocrit (Bld) [Volume fraction] Hematocrit [Volume Fraction] of Blood by Automated count Low 42.0-54.0 [facility] Hemoglobin [Mass/volume] in Bloodon 07-15-2024 Hemoglobin (Bld) [Mass/Vol] 13.4 g/dL Low 14.0-18.0 [facility] Hemoglobin (Bld) [Mass/Vol] Hemoglobin [Mass/volume] in Blood Low 14.0-18.0 [facility] Laboratory - Chemistry and C hemistry - challengeon 07-15-2024 Albumin [Mass/Vol] 2.1 g/dL Low 3.4-5.0 [facility] ALP [Catalytic activity/Vol] 277 U/L High 46-116 [facility] ALT [Catalytic activity/Vol] 93 U/L High 16-63 [facility] AST [Catalytic activity/Vol] 70 U/L High 15-37 [facility] Bilirubin [Mass/Vol] 3.2 mg/dL High 0.2-1.0 [facility] Calcium [Mass/Vol] 8.0 mg/dL Low 8.5-10.1 [facility] Chloride [Moles/Vol] 102 mmol/L 98-107 [facility] CO2 [Moles/Vol] 25.6 mmol/L 21.0-32.0 [facility] Creatinine [Mass/Vol] 0.99 mg/dL 0.70-1.30 [facility] GFR/1.73 sq M.predicted MDRD (S/P/Bld) [Vol rate/Area] mL/min/{1.73_m2} >=60 mL/min/1.73m 2 [facility] Glucose [Mass/Vol] 361 mg/dL High 74-106 [facility] Magnesium [Mass/Vol] 1.6 mg/dL Low 1.8-2.4 [facility] Potassium [Moles/Vol] 4.8 mmol/L 3.5-5.1 [facility] Protein [Mass/Vol] 5.8 g/dL Low 6.4-8.2 [facility] Sodium [Moles/Vol] 135 mmol/L Low 136-145 [facility] Urea nitrogen [Mass/Vol] 21.0 mg/dL High 7.0-18.0 [facility] Urea nitrogen/Creatinine [Mass ratio] 21.2 mg/mg [facility] Laboratory - Hematology and Cell countson 07-15-2024 Immature granulocytes/100 WBC (Bld) 0.6 % High 0.0-0.5 [facility] Leukocytes [#/volume] correc roderick for nucleated erythrocytes in Blood by Automated counon 07-15-2024 WBC corrected for nucl RBC Auto (Bld) [#/Vol] 10.8 10 3/uL 4.0-11.0 [facility] WBC corrected for nucl RBC Auto (Bld) [#/Vol] Leukocytes [#/volume] corrected for nucleated erythrocytes in Blood by Automated coun .0-11.0 [facility] Lymphocytes Auto (Bld) [#/Vo l]on 07-15-2024 Lymphocytes (Bld) [#/Vol] 0.9 10 3/uL Low 1.2-3.8 [facility] Lymphocytes (Bld) [#/Vol] Lymphocytes [#/volume] in Blood by Automated count Low 1.2-3.8 [facility] Lymphocytes/100 WBC Auto (Bl d)on 07-15-2024 Lymphocytes/100 WBC (Bld) 7.9 % Low 20.5-60.0 [facility] Lymphocytes/100 WBC (Bld) Lymphocytes/100 leukocytes in Blood by Automated count Low 20.5-60.0 [facility] MCH Auto (RBC) [Entitic mass ]on 07-15-2024 MCH (RBC) [Entitic mass] 30.9 pg 25.9-34.0 [facility] MCH (RBC) [Entitic mass] MCH [Entitic mass] by Automated count 25.9-34.0 [facility] MCHC Auto (RBC) [Mass/Vol]on 07-15-2024 MCHC (RBC) [Mass/Vol] 33.3 g/dL 29.9-35.2 [facility] MCHC (RBC) [Mass/Vol] MCHC [Mass/volume] by Automated count 29.9-35.2 [facility] MCV Auto (RBC) [Entitic vol] on 07-15-2024 MCV (RBC) [Entitic vol] 92.9 fL 80.0-94.0 [facility] MCV (RBC) [Entitic vol] MCV [Entitic volume] by Automated count 80.0-94.0 [facility] Monocytes Auto (Bld) [#/Vol] on 07-15-2024 Monocytes (Bld) [#/Vol] 0.1 10 3/uL Low 0.3-0.8 [facility] Monocytes (Bld) [#/Vol] Automated blood monocyte count Low 0.3-0.8 [facility] Monocytes/100 WBC Auto (Bld) on 07-15-2024 Monocytes/100 WBC (Bld) 0.7 % Low 1.7-12.0 [facility] Monocytes/100 WBC (Bld) Automated monocyte % Low 1.7-12.0 [facility] Neutrophils Auto (Bld) [#/Vo l]on 07-15-2024 Neutrophils (Bld) [#/Vol] 9.8 10 3/uL High 1.4-6.5 [facility] Neutrophils (Bld) [#/Vol] Neutrophils [#/volume] in Blood by Automated count High 1.4-6.5 [facility] Neutrophils/100 WBC Auto (Bl d)on 07-15-2024 Neutrophils/100 WBC (Bld) 90.7 % High 43.0-75.0 [facility] Neutrophils/100 WBC (Bld) Automated neutrophil % High 43.0-75.0 [facility] No Panel Informationon 07-15 Eosinophils # (Auto) 0.0 10 3/uL 0.0-0.7 [facility] Immature Granulocyte # (Auto) 0.06 10 3/uL High 0.00-0.03 [facility] No Panel InformationOrdered By: Modesto Agudelo on 07-15-2024 Blood Culture 1 [facility] Blood Culture 2 [facility] Platelet mean volume Auto (B ld) [Entitic vol]on 07-15-2024 Platelet mean volume (Bld) [Entitic vol] 12.2 fL 9.5-13.5 [facility] Platelet mean volume (Bld) [Entitic vol] Platelet mean volume [Entitic volume] in Blood by Automated count 9.-13.5 [facility] Platelets Auto (Bld) [#/Vol] on 07-15-2024 Platelets (Bld) [#/Vol] 121 10 3/uL Low 150-450 [facility] Platelets (Bld) [#/Vol] Platelets [#/volume] in Blood by Automated count Low 150-450 [facility] RBC Auto (Bld) [#/Vol]on RBC (Bld) [#/Vol] 4.34 10 6/uL Low 4.70-6.10 [facility] RBC (Bld) [#/Vol] Erythrocytes [#/volu me] in Blood by Automated count Low 4.70-6.10 [facility] Serum or plasma albumin/glob ulin mass ratioon 07-15-2024 Albumin/Globulin [Mass ratio] 0.6 {ratio} [facility] Albumin/Globulin [Mass ratio] Serum or plasma albumin/globulin mass ratio [facility] Serum or plasma anion gap de terminationon 07-15-2024 Anion gap [Moles/Vol] 12.2 [facility] Anion gap [Moles/Vol] Serum or plasma an ion gap determination [facility] Basophils Auto (Bld) [#/Vol] on 07-14-2024 Basophils (Bld) [#/Vol] 0.0 10 3/uL 0.0-0.1 [facility] Basophils (Bld) [#/Vol] Automated basophil count 0.0-0.1 [facility] Basophils/100 WBC Auto (Bld) on 07-14-2024 Basophils/100 WBC (Bld) 0.2 % 0.2-2.0 [facility] Basophils/100 WBC (Bld) Automated basophil % 0.2-2.0 [facility] Eosinophils/100 WBC Auto (Bl d)on 07-14-2024 Eosinophils/100 WBC (Bld) 0.0 % Low 0.9-7.0 [facility] Eosinophils/100 WBC (Bld) Automated eosinophil % Low 0.9-7.0 [facility] Erythrocyte distribution wid th Auto (RBC) [Ratio]on 07-14-2024 Erythrocyte distribution width (RBC) [Ratio] 13.6 % 11.0-15.0 [facility] Erythrocyte distribution width (RBC) [Ratio] Erythrocyte distribution width [Ratio] by Automated count 11.0-15.0 [facility] Estimated glomerular filtrat ion rate (GFR) non- Americanon 07-14-2024 GFR/1.73 sq M.predicted among non-blacks MDRD (S/P/Bld) [Vol rate/Area] 53 mL/min/{1.73_m2} Low >=60 mL/min/1.73m 2 [facility] GFR/1.73 sq M.predicted among non-blacks MDRD (S/P/Bld) [Vol rate/Area] Estimated glomerular filtration rate (GFR) non- Low >=60 mL/min/1.73m 2 [facility] Globulin Calc (S) [Mass/Vol] on 07-14-2024 Globulin (S) [Mass/Vol] 4.3 g/dL [facility] Globulin (S) [Mass/Vol] Serum globulin measurement by calculation (mass/volume) [facility] Hematocrit Auto (Bld) [Volum e fraction]on 07-14-2024 Hematocrit (Bld) [Volume fraction] 43.9 % 42.0-54.0 [facility] Hematocrit (Bld) [Volume fraction] Hematocrit [Volume Fraction] of Blood by Automated count 42.0-54.0 [facility] Hemoglobin [Mass/volume] in Bloodon 07-14-2024 Hemoglobin (Bld) [Mass/Vol] 14.6 g/dL 14.0-18.0 [facility] Hemoglobin (Bld) [Mass/Vol] Hemoglobin [Mass/volume] in Blood 14.0-18.0 [facility] Laboratory - Chemistry and C hemistry - challengeon 07-14-2024 Albumin [Mass/Vol] 2.6 g/dL Low 3.4-5.0 [facility] ALP [Catalytic activity/Vol] 330 U/L High 46-116 [facility] ALT [Catalytic activity/Vol] 112 U/L High 16-63 [facility] AST [Catalytic activity/Vol] 82 U/L High 15-37 [facility] Bilirubin [Mass/Vol] 4.3 mg/dL High 0.2-1.0 [facility] Bilirubin Ql (U) Negative NEGATIVE [facility] Bilirubin.direct [Mass/Vol] 3.5 mg/dL Critically high 0.0-0.2 [facility] Comment on above: RESULTS CALLED TO DR GRIFFITHS Calcium [Mass/Vol] 9.3 mg/dL 8.5-10.1 [facility] Chloride [Moles/Vol] 94 mmol/L Low 98-107 [facility] CO2 [Moles/Vol] 25.4 mmol/L 21.0-32.0 [facility] Creatinine [Mass/Vol] 1.53 mg/dL High 0.70-1.30 [facility] GFR/1.73 sq M.predicted MDRD (S/P/Bld) [Vol rate/Area] mL/min/{1.73_m2} >=60 mL/min/1.73m 2 [facility] Glucose (U) [Mass/Vol] mg/dL Abnormal NEGATIVE [facility] Glucose [Mass/Vol] 724 mg/dL Critically high 74-106 F [facility] Comment on above: RESULTS CALLED TO @Nicholas Morley at 2005 Ketones Ql (U) 15 mg/dL Abnormal NEGATIVE [facility] Lactate [Moles/Vol] 2.1 mmol/L High 0.4-2.0 [facility] Comment on above: RESULTS CALLED TO ELIDA BOB RN pH (U) 5.5 [pH] 5.0-9.0 [facility] Potassium [Moles/Vol] 4.9 mmol/L 3.5-5.1 [facility] Protein [Mass/Vol] 6.9 g/dL 6.4-8.2 [facility] Sodium [Moles/Vol] 130 mmol/L Low 136-145 [facility] Specific gravity (U) [Rel density] <=1.005 Abnormal 1.005-1.025 [facility] Urea nitrogen [Mass/Vol] 31.0 mg/dL High 7.0-18.0 [facility] Urea nitrogen/Creatinine [Mass ratio] 20.3 mg/mg [facility] Urobilinogen Qn (U) 1.0 {Jacinta'U}/dL 0.2-1.0 [facility] Laboratory - Hematology and Cell countson 07-14-2024 Immature granulocytes/100 WBC (Bld) 0.5 % 0.0-0.5 [facility] Laboratory - Specimen inform ationon 07-14-2024 Appearance (U) CLEAR CLEAR [facility] Color (U) LT. YELLOW YELLOW [facility] Laboratory - Urinalysison Leukocyte esterase Test strip Ql (U) Negative NEGATIVE [facility] Mucus Ql (Urine sed) NONE SEEN NONE SEEN [facility] Nitrite Ql (U) Negative NEGATIVE [facility] Protein Ql (U) Negative NEG/TRACE [facility] Leukocytes [#/volume] correc roderick for nucleated erythrocytes in Blood by Automated counon 07-14-2024 WBC corrected for nucl RBC Auto (Bld) [#/Vol] 9.8 10 3/uL 4.0-11.0 [facility] WBC corrected for nucl RBC Auto (Bld) [#/Vol] Leukocytes [#/volume] corrected for nucleated erythrocytes in Blood by Automated coun 4.0-11.0 [facility] Lymphocytes Auto (Bld) [#/Vo l]on 07-14-2024 Lymphocytes (Bld) [#/Vol] 0.8 10 3/uL Low 1.2-3.8 [facility] Lymphocytes (Bld) [#/Vol] Lymphocytes [#/volume] in Blood by Automated count Low 1.2-3.8 [facility] Lymphocytes/100 WBC Auto (Bl d)on 07-14-2024 Lymphocytes/100 WBC (Bld) 8.2 % Low 20.5-60.0 [facility] Lymphocytes/100 WBC (Bld) Lymphocytes/100 leukocytes in Blood by Automated count Low 20.5-60.0 [facility] MCH Auto (RBC) [Entitic mass ]on 07-14-2024 MCH (RBC) [Entitic mass] 31.3 pg 25.9-34.0 [facility] MCH (RBC) [Entitic mass] MCH [Entitic mass] by Automated count 25.9-34.0 [facility] MCHC Auto (RBC) [Mass/Vol]on 07-14-2024 MCHC (RBC) [Mass/Vol] 33.3 g/dL 29.9-35.2 [facility] MCHC (RBC) [Mass/Vol] MCHC [Mass/volume] by Automated count 29.9-35.2 [facility] MCV Auto (RBC) [Entitic vol] on 07-14-2024 MCV (RBC) [Entitic vol] 94.2 fL High 80.0-94.0 [facility] MCV (RBC) [Entitic vol] MCV [Entitic volume] by Automated count High 80.0-94.0 [facility] Monocytes Auto (Bld) [#/Vol] on 07-14-2024 Monocytes (Bld) [#/Vol] 0.1 10 3/uL Low 0.3-0.8 [facility] Monocytes (Bld) [#/Vol] Automated blood monocyte count Low 0.3-0.8 [facility] Monocytes/100 WBC Auto (Bld) on 07-14-2024 Monocytes/100 WBC (Bld) 1.2 % Low 1.7-12.0 [facility] Monocytes/100 WBC (Bld) Automated monocyte % Low 1.7-12.0 [facility] Neutrophils Auto (Bld) [#/Vo l]on 07-14-2024 Neutrophils (Bld) [#/Vol] 8.8 10 3/uL High 1.4-6.5 [facility] Neutrophils (Bld) [#/Vol] Neutrophils [#/volume] in Blood by Automated count High 1.4-6.5 [facility] Neutrophils/100 WBC Auto (Bl d)on 07-14-2024 Neutrophils/100 WBC (Bld) 89.9 % High 43.0-75.0 [facility] Neutrophils/100 WBC (Bld) Automated neutrophil % High 43.0-75.0 [facility] No Panel Informationon 07-14 Venous Blood Partial Pressure CO2 43.0 mm[Hg] 40.0-52.0 [facility] Venous Blood pH 7.378 7.330-7.430 [facility] Acetone Level Negative NEGATIVE [facility] Eosinophils # (Auto) 0.0 10 3/uL 0.0-0.7 [facility] Immature Granulocyte # (Auto) 0.05 10 3/uL High 0.00-0.03 [facility] Urine Bacteria TRACE #/HPF Abnormal NONE SEEN [facility] Urine Occult Blood MODERATE Abnormal NEGATIVE [facility] Urine Other Casts NONE SEEN #/LPF NONE SEEN [facility] Urine Other Crystals None Seen #/HPF None Seen [facility] Urine RBC 10-20 #/HPF Abnormal 0-2 [facility] Urine Squamous Epithelial Cells NONE SEEN #/LPF NONE/RARE [facility] Urine WBC NONE SEEN #/HPF NONE SEEN [facility] Platelet mean volume Auto (B ld) [Entitic vol]on 07-14-2024 Platelet mean volume (Bld) [Entitic vol] 12.5 fL 9.5-13.5 [facility] Platelet mean volume (Bld) [Entitic vol] Platelet mean volume [Entitic volume] in Blood by Automated count 9.5-13.5 [facility] Platelets Auto (Bld) [#/Vol] on 07-14-2024 Platelets (Bld) [#/Vol] 164 10 3/uL 150-450 [facility] Platelets (Bld) [#/Vol] Platelets [#/volume] in Blood by Automated count 150-450 [facility] RBC Auto (Bld) [#/Vol]on RBC (Bld) [#/Vol] 4.66 10 6/uL Low 4.70-6.10 [facility] RBC (Bld) [#/Vol] Erythrocytes [#/volu me] in Blood by Automated count Low 4.70-6.10 [facility] Serum or plasma albumin/glob ulin mass ratioon 07-14-2024 Albumin/Globulin [Mass ratio] 0.6 {ratio} [facility] Albumin/Globulin [Mass ratio] Serum or plasma albumin/globulin mass ratio [facility] Serum or plasma anion gap de terminationon 07-14-2024 Anion gap [Moles/Vol] 15.5 mmol[facility] Anion gap [Moles/Vol] Serum or plasma an ion gap determination [facility] Alanine aminotransferase [En zymatic activity/volume] in Serum or PlasmaOrdered By: Sharan Ayoub on 07-01-2024 ALT [Catalytic activity/Vol] 95 U/L High [facility] Comment on above: Performed By: #### C BC, CMP, TACROLIMUS. #### [address] ALT [Catalytic activity/Vol] Alanine aminotransferase [Enzymatic activity/volume] in Serum or Plasma High [facility] Albumin [Mass/volume] in Ser um or Plasma by Bromocresol green (BCG) dye binding methoOrdered By: Sharan Ayoub on 07-01-2024 Albumin BCG dye [Mass/Vol] 3.1 g/dL Low 3.5-5.7 [facility] Albumin BCG dye [Mass/Vol] Albumin [Mass/volume] in Serum or Plasma by Bromocresol green (BCG) dye binding metho Low 3.5-5.7 [facility] Alkaline phosphatase [Enzyma tic activity/volume] in Serum or PlasmaOrdered By: Sharan Ayoub on 07-01-2024 ALP [Catalytic activity/Vol] 220 U/L High 34-104 [facility] Comment on above: Result Comment: PERF ORMED BY: [place] [address] PATHOLOGIST LABOR EXPEDITER MISAEL FOX M.D. Performed By: #### C BC, CMP, TACROLIMUS. #### [facility] [address] [place] [address] ALP [Catalytic activity/Vol] Alkaline phosphatase [Enzymatic activity/volume] in Serum or Plasma High [address] [place] [address] Aspartate aminotransferase [ Enzymatic activity/volume] in Serum or PlasmaOrdered By: Sharan Ayoub on 07-01-2024 AST [Catalytic activity/Vol] 88 U/L [address] Comment on above: Performed By: #### C BC, CMP, TACROLIMUS. #### [facility] [address] [place] [address] AST [Catalytic activity/Vol] Aspartate aminotransferase [Enzymatic activity/volume] in Serum or Plasma High [address] [place] [address] Automated basophil %Ordered By: Sharan Ayoub on 07-01-2024 Basophils/100 WBC (Bld) 0.6 % Normal . [facility] Comment on above: Performed By: #### C BC, CMP, TACROLIMUS. #### [facility] [address] [place] [address] Automated basophil countOrde red By: Sharan Ayoub on 07-01-2024 Basophils (Bld) [#/Vol] 0.1 10*3/uL Normal 0.0-0.2 [facility] Comment on above: Result Comment: PERF ORMED BY: [place] [address] PATHOLOGIST LABOR EXPEDITER MISAEL FOX M.D. Performed By: #### C BC, CMP, TACROLIMUS. #### [address] Automated blood monocyte cou ntOrdered By: Sharan Ayoub on 07-01-2024 Monocytes (Bld) [#/Vol] 0.8 10*3/uL Normal 0.0-0.8 [facility] Comment on above: Performed By: #### C BC, CMP, TACROLIMUS. #### [address] Automated eosinophil %Ordere d By: Sharan Ayoub on 07-01-2024 Eosinophils/100 WBC (Bld) 0.9 % Normal . [facility] Comment on above: Performed By: #### C BC, CMP, TACROLIMUS. #### [address] Automated eosinophil countOr dered By: Sharan Ayoub on 07-01-2024 Eosinophils (Bld) [#/Vol] 0.1 10*3/uL Normal 0.0-0.45 [facility] Comment on above: Performed By: #### C BC, CMP, TACROLIMUS. #### [address] Automated monocyte %Ordered By: Sharan Ayoub on 07-01-2024 Monocytes/100 WBC (Bld) 7.4 % Normal . [facility] Comment on above: Performed By: #### C BC, CMP, TACROLIMUS. #### [address] Automated neutrophil %Ordere d By: Sharan Ayoub on 07-01-2024 Neutrophils/100 WBC (Bld) 66.5 % Normal . [facility] Comment on above: Performed By: #### C BC, CMP, TACROLIMUS. #### [address] Basophils Auto (Bld) [#/Vol] Ordered By: Sharan Ayoub on 07-01-2024 Basophils (Bld) [#/Vol] Automated basophil count 0.0-0.2 [facility] Basophils/100 WBC Auto (Bld) Ordered By: Sharan Ayoub on 07-01-2024 Basophils/100 WBC (Bld) Automated basophil % . [facility] Bilirubin.total [Mass/volume ] in Serum or PlasmaOrdered By: Sharan Ayoub on 07-01-2024 Bilirubin [Mass/Vol] 3.4 mg/dL High 0.3-1.0 [facility] Comment on above: Samples from patient s [...] measuring Total Bilirubin. Performed By: #### C BC, CMP, TACROLIMUS. #### [facility] [address] Bilirubin [Mass/Vol] Bilirubin.total [Mass/volume] in Serum or Plasma High 0.3-1.0 [facility] Comment on above: Samples from patient s who have taken Naproxen have shown spurious elevation in Total Bilirubin levels. A metabolite of Naproxen, O-desmethylnaproxen, has been shown to interfere with the Jendrassik-Grof method for measuring Total Bilirubin. Blood tacrolimus measurement (mass/volume)Ordered By: Sharan Ayoub on 07-01-2024 Tacrolimus (Bld) [Mass/Vol] Tacrolimus [Mass/volume] in Blood [facility] Calcium [Mass/volume] in Ser um or PlasmaOrdered By: Sharan Ayoub on 07-01-2024 Calcium [Mass/Vol] 8.6 mg/dL Normal 8.6-10.3 [facility] Comment on above: Performed By: #### C BC, CMP, TACROLIMUS. #### [address] Calcium [Mass/Vol] Calcium [Mass/volume ] in Serum or Plasma 8.6-10.3 [facility] Carbon dioxide, total [Moles /volume] in Serum or PlasmaOrdered By: Sharan Ayoub on 07-01-2024 CO2 [Moles/Vol] 32.6 mmol/L High 21.0-31.0 [facility] Comment on above: Performed By: #### C BC, CMP, TACROLIMUS. #### [address] CO2 [Moles/Vol] Carbon dioxide, tota l [Moles/volume] in Serum or Plasma High 21.0-31.0 [facility] Chloride [Moles/volume] in S kasi or PlasmaOrdered By: Sharan Ayoub on 07-01-2024 Chloride [Moles/Vol] 101 mmol/L Normal 98-107 [facility] Comment on above: Performed By: #### C BC, CMP, TACROLIMUS. #### [address] Chloride [Moles/Vol] Chloride [Moles/vol ume] in Serum or Plasma 98-107 [facility] Complete Blood Count Auto Di ffon 07-01-2024 Mean Corpuscular HGB Conc 33.6 g/dL Normal 32.5-35.6 [facility] Comment on above: Performed By: #### C BC, CMP, TACROLIMUS. #### [address] NRBC% 0.1 /100{WBC} Normal 0-0.5 [facility] Comment on above: Performed By: #### C BC, CMP, TACROLIMUS. #### [address] Comprehensive Metabolic Pane sarah 07-01-2024 Albumin [Mass/Vol] 3.1 g/dL Low 3.5-5.7 [facility] Comment on above: Performed By: #### C BC, CMP, TACROLIMUS. #### [address] GFR/1.73 sq M.predicted MDRD (S/P/Bld) [Vol rate/Area] mL/min/{1.73_m2} Normal [facility] Comment on above: Performed By: #### C BC, CMP, TACROLIMUS. #### [facility] [address] Creatinine [Mass/volume] in Serum or PlasmaOrdered By: Sharan Ayoub on 07-01-2024 Creatinine [Mass/Vol] 0.98 mg/dL Normal 0.70-1.30 [facility] Comment on above: Performed By: #### C BC, CMP, TACROLIMUS. #### [facility] [address] Creatinine [Mass/Vol] Creatinine [Mass/v olume] in Serum or Plasma 0.70-1.30 [facility] Eosinophils Auto (Bld) [#/Vo l]Ordered By: Sharan Ayoub on 07-01-2024 Eosinophils (Bld) [#/Vol] Automated eosinophil count 0.0-0.45 [facility] Eosinophils/100 WBC Auto (Bl d)Ordered By: Sharan Ayoub on 07-01-2024 Eosinophils/100 WBC (Bld) Automated eosinophil % . [facility] Erythrocyte distribution wid th Auto (RBC) [Ratio]Ordered By: Sharan Ayoub on 07-01-2024 Erythrocyte distribution width (RBC) [Ratio] Erythrocyte distribution width [Ratio] by Automated count High 12.0-14.8 [facility] Erythrocyte distribution wid th [Ratio] by Automated countOrdered By: Sharan Ayoub on 07-01-2024 Erythrocyte distribution width (RBC) [Ratio] 15.9 % High 12.0-14.8 [facility] Comment on above: Performed By: #### C BC, CMP, TACROLIMUS. #### [facility] [address] [place] [address] [place] Erythrocytes [#/volume] in B lood by Automated countOrdered By: Sharan Ayoub on 07-01-2024 RBC (Bld) [#/Vol] 4.44 10*6/uL Normal 3.90-5.60 [facility] Comment on above: Performed By: #### C BC, CMP, TACROLIMUS. #### [facility] [address] Globulin Calc (S) [Mass/Vol] Ordered By: Sharan Ayoub on 07-01-2024 Globulin (S) [Mass/Vol] Serum globulin measurement by calculation (mass/volume) [facility] Glucose [Mass/volume] in Ser um or PlasmaOrdered By: Sharan Ayoub on 07-01-2024 Glucose [Mass/Vol] 228 mg/dL High 70-100 [facility] Comment on above: ADA recommended refe rence rangeRandom Glucose Reference Range is dependent on time and content of last meal. Glucose of more than 200 mg/dL in a nonstressed, ambulatory subject supports the diagnosis of Diabetes Mellitus. Result Comment: [place] om Glucose Reference Range is dependent on time and content of last meal. Glucose of more than 200 mg/dL in a nonstressed, ambulatory subject supports the diagnosis of Diabetes Mellitus. ADA recommended reference range Performed By: #### C BC, CMP, TACROLIMUS. #### [facility] [address] [place] [id number] [place] Glucose [Mass/Vol] Glucose [Mass/volume ] in Serum or Plasma High 70-100 [facility] Comment on above: ADA recommended refe rence rangeRandom Glucose Reference Range is dependent on time and content of last meal. Glucose of more than 200 mg/dL in a nonstressed, ambulatory subject supports the diagnosis of Diabetes Mellitus. Hematocrit Auto (Bld) [Volum e fraction]Ordered By: Sharan Ayoub on 07-01-2024 Hematocrit (Bld) [Volume fraction] Hematocrit [Volume Fraction] of Blood by Automated count 38.8-50.0 [facility] Hematocrit [Volume Fraction] of Blood by Automated countOrdered By: Sharan Ayoub on 07-01-2024 Hematocrit (Bld) [Volume fraction] 41.5 % Normal 38.8-50.0 [facility] Comment on above: Performed By: #### C BC, CMP, TACROLIMUS. #### [facility] [address] [place] [id number] [facility] Hemoglobin [Mass/volume] in BloodOrdered By: Sharan Ayoub on 07-01-2024 Hemoglobin (Bld) [Mass/Vol] 14.0 g/dL Normal 13.0-17.0 [facility] Comment on above: Performed By: #### C BC, CMP, TACROLIMUS. #### [facility] [address] [place] [address] Hemoglobin (Bld) [Mass/Vol] Hemoglobin [Mass/volume] in Blood 13.0-17.0 [facility] Leukocytes [#/volume] correc roderick for nucleated erythrocytes in Blood by Automated counOrdered By: Sharan Ayoub on 07-01-2024 WBC corrected for nucl RBC Auto (Bld) [#/Vol] 10.5 10*3/uL 4.1-10.5 [facility] WBC corrected for nucl RBC Auto (Bld) [#/Vol] Leukocytes [#/volume] corrected for nucleated erythrocytes in Blood by Automated coun 4.1-10.5 [facility] Leukocytes [#/volume] in Blo od by Automated countOrdered By: Sharan Ayoub on 07-01-2024 WBC (Bld) [#/Vol] 10.5 10*3/uL Normal 4.1-10.5 [facility] Comment on above: Performed By: #### C BC, CMP, TACROLIMUS. #### [address] Lymphocytes Auto (Bld) [#/Vo l]Ordered By: Sharan Ayoub on 07-01-2024 Lymphocytes (Bld) [#/Vol] Lymphocytes [#/volume] in Blood by Automated count 1.00-4.8 [facility] Lymphocytes [#/volume] in Bl ood by Automated countOrdered By: Sharan Ayoub on 07-01-2024 Lymphocytes (Bld) [#/Vol] 2.6 10*3/uL Normal 1.00-4.8 [facility] Comment on above: Performed By: #### C BC, CMP, TACROLIMUS. #### [place] [address] [place] Lymphocytes/100 WBC Auto (Bl d)Ordered By: Sharan Ayoub on 07-01-2024 Lymphocytes/100 WBC (Bld) Lymphocytes/100 leukocytes in Blood by Automated count . [facility] Lymphocytes/100 leukocytes i n Blood by Automated countOrdered By: Sharan Ayoub on 07-01-2024 Lymphocytes/100 WBC (Bld) 24.6 % Normal . [facility] Comment on above: Performed By: #### C BC, CMP, TACROLIMUS. #### [facility] [address] MCH Auto (RBC) [Entitic mass ]Ordered By: Sharan Ayoub on 07-01-2024 MCH (RBC) [Entitic mass] MCH [Entitic mass] by Automated count 27.5-35.2 [facility] MCH [Entitic mass] by Automa roderick countOrdered By: Sharan Ayoub on 07-01-2024 MCH (RBC) [Entitic mass] 31.4 pg Normal 27.5-35.2 [facility] Comment on above: Performed By: #### C BC, CMP, TACROLIMUS. #### [address] MCHC Auto (RBC) [Mass/Vol]Or dered By: Sharan Ayoub on 07-01-2024 MCHC (RBC) [Mass/Vol] 33.6 g/dL 32.5-35.6 [facility] MCHC (RBC) [Mass/Vol] MCHC [Mass/volume] by Automated count 32.5-35.6 [facility] MCV Auto (RBC) [Entitic vol] Ordered By: Sharan Ayoub on 07-01-2024 MCV (RBC) [Entitic vol] MCV [Entitic volume] by Automated count 83.5-101 [facility] MCV [Entitic volume] by Auto mated countOrdered By: Sharan Ayoub on 07-01-2024 MCV (RBC) [Entitic vol] 93.6 fL Normal 83.5-101 [facility] Comment on above: Performed By: #### C BC, CMP, TACROLIMUS. #### [facility] [address] [place] [address] Monocytes Auto (Bld) [#/Vol] Ordered By: Sharan Ayoub on 07-01-2024 Monocytes (Bld) [#/Vol] Automated blood monocyte count 0.0-0.8 [facility] Monocytes/100 WBC Auto (Bld) Ordered By: Sharan Ayoub on 07-01-2024 Monocytes/100 WBC (Bld) Automated monocyte % . [facility] Neutrophils Auto (Bld) [#/Vo l]Ordered By: Sharan Ayoub on 07-01-2024 Neutrophils (Bld) [#/Vol] Neutrophils [#/volume] in Blood by Automated count 1.8-7.7 [facility] Neutrophils [#/volume] in Bl ood by Automated countOrdered By: Sharan Ayoub on 07-01-2024 Neutrophils (Bld) [#/Vol] 7.0 10*3/uL Normal 1.8-7.7 [facility] Comment on above: Performed By: #### C BC, CMP, TACROLIMUS. #### [facility] [address] Neutrophils/100 WBC Auto (Bl d)Ordered By: Sharan Ayoub on 07-01-2024 Neutrophils/100 WBC (Bld) Automated neutrophil % . [facility] No Panel InformationOrdered By: Sharan Ayoub on 07-01-2024 Estimated GFR (CKD-EPI) > 60.0 mL/Min [facility] Creatinine Clearance (Chem N/A [facility] Nucleated erythrocytes [Pres ence] in Blood by Automated countOrdered By: Sharan Ayoub on 07-01-2024 Nucleated RBC Auto Ql (Bld) 0.1 /100{WBC} 0-0.5 [facility] Nucleated RBC Auto Ql (Bld) Nucleated erythrocytes [Presence] in Blood by Automated count 0-0.5 [facility] Platelet mean volume Auto (B ld) [Entitic vol]Ordered By: Sharan Ayoub on 07-01-2024 Platelet mean volume (Bld) [Entitic vol] Platelet mean volume [Entitic volume] in Blood by Automated count High 6.6-10.1 [facility] Platelet mean volume [Entiti c volume] in Blood by Automated countOrdered By: Sharan Ayoub on 07-01-2024 Platelet mean volume (Bld) [Entitic vol] 11.3 fL High 6.6-10.1 [facility] Comment on above: Performed By: #### C BC, CMP, TACROLIMUS. #### [facility] [address] [place] [address] [place] Platelets Auto (Bld) [#/Vol] Ordered By: Sharan Ayoub on 07-01-2024 Platelets (Bld) [#/Vol] Platelets [#/volume] in Blood by Automated count 150-450 [facility] Platelets [#/volume] in Bloo d by Automated countOrdered By: Sharan Ayoub on 07-01-2024 Platelets (Bld) [#/Vol] 158 10*3/uL Normal 150-450 [facility] Comment on above: Performed By: #### C BC, CMP, TACROLIMUS. #### [facility] [address] [place] [address] [place] Potassium [Moles/volume] in Serum or PlasmaOrdered By: Sharan Ayoub on 07-01-2024 Potassium [Moles/Vol] 3.4 mmol/L Low 3.5-5.1 [facility] Comment on above: Performed By: #### C BC, CMP, TACROLIMUS. #### [facility] [address] [place] [address] Potassium [Moles/Vol] Potassium [Moles/v olume] in Serum or Plasma Low 3.5-5.1 [facility] Protein [Mass/volume] in Ser um or PlasmaOrdered By: Sharan Ayoub on 07-01-2024 Protein [Mass/Vol] 6.0 g/dL Low 6.4-8.9 [facility] Comment on above: Performed By: #### C BC, CMP, TACROLIMUS. #### [facility] [address] [place] [address] [place] Protein [Mass/Vol] Protein [Mass/volume ] in Serum or Plasma Low 6.4-8.9 [facility] RBC Auto (Bld) [#/Vol]Ordere d By: Sharan Ayoub on 07-01-2024 RBC (Bld) [#/Vol] Erythrocytes [#/volu me] in Blood by Automated count 3.90-5.60 [facility] Serum globulin measurement b y calculation (mass/volume)Ordered By: Sharan Ayoub on 07-01-2024 Globulin (S) [Mass/Vol] 2.9 g/dL Normal [facility] Comment on above: Performed By: #### C BC, CMP, TACROLIMUS. #### [address] Serum or plasma albumin/glob ulin mass ratioOrdered By: Sharan Ayoub on 07-01-2024 Albumin/Globulin [Mass ratio] 1.1 {ratio} Normal [facility] Comment on above: Performed By: #### C BC, CMP, TACROLIMUS. #### [facility] [address] [place] [address] Albumin/Globulin [Mass ratio] Serum or plasma albumin/globulin mass ratio [facility] Serum or plasma anion gap de terminationOrdered By: Sharan Ayoub on 07-01-2024 Anion gap [Moles/Vol] 9.8 mmol/L Normal 6.0-15.0 [facility] Comment on above: Performed By: #### C BC, CMP, TACROLIMUS. #### [address] Anion gap [Moles/Vol] Serum or plasma an ion gap determination 6.0-15.0 [facility] Sodium [Moles/volume] in Ser um or PlasmaOrdered By: Sharan Ayoub on 07-01-2024 Sodium [Moles/Vol] 140 mmol/L Normal 136-145 [facility] Comment on above: Performed By: #### C BC, CMP, TACROLIMUS. #### [facility] [address] [place] [address] Sodium [Moles/Vol] Sodium [Moles/volume ] in Serum or Plasma 136-145 [facility] Tacrolimuson 07-01-2024 Tacrolimus (Bld) [Mass/Vol] 8.5 ng/mL Normal <=15.0 [facility] Comment on above: Order Comment: NOTE: Result was obtained using a chemiluminescent microparticle immunoassay (CMIA) on the [employer]er i system. Optimal therapeutic ranges for immunosuppressant drugs depend upon an individual patient's current clinical state, type of organ transplant, time post-transplant, co-administration of other immunosuppressants, and other clinical factors. The results of this test should be correlated with additional clinical and laboratory data before changes in treatment regimens are made. Performed By: #### 1 1253-2 #### NORMA Cherry ([id number]) [facility] ([facility]) [id number] [place] [address] Tacrolimus (Transplant) No C hgon 07-01-2024 Tacrolimus (Transplant) No Chg Sent to Ref Lab Normal [facility] Comment on above: Result Comment: PERF ORMED BY: [place] [address] PATHOLOGIST LABOR EXPEDITER MISAEL FOX M.D. Performed By: #### C BC, CMP, TACROLIMUS. #### [facility] [address] [place] [address] Tacrolimus [Mass/volume] in BloodOrdered By: Sharan Ayoub on 07-01-2024 Tacrolimus (Bld) [Mass/Vol] Sent to ref lab [facility] Urea nitrogen [Mass/volume] in Serum or PlasmaOrdered By: Sharan Ayoub on 07-01-2024 Urea nitrogen [Mass/Vol] 15 mg/dL Normal 04-25 [facility] Comment on above: Performed By: #### C BC, CMP, TACROLIMUS. #### [facility] [address] [place] [address] [place] Urea nitrogen [Mass/Vol] Urea nitrogen [Mass/volume] in Serum or Plasma 04-25 [facility] WBC Auto (Bld) [#/Vol]Ordere d By: Sharan Ayoub on 07-01-2024 WBC (Bld) [#/Vol] Leukocytes [#/volume ] in Blood by Automated count 4.1-10.5 [facility] Alanine aminotransferase [En zymatic activity/volume] in Serum or PlasmaOrdered By: Sharan Ayoub on 05-13-2024 ALT [Catalytic activity/Vol] 110 U/L High 7-52 [facility] Albumin [Mass/volume] in Ser um or Plasma by Bromocresol green (BCG) dye binding methoOrdered By: Sharan Ayoub on 05-13-2024 Albumin BCG dye [Mass/Vol] 3.0 g/dL Low 3.5-5.7 [facility] Alkaline phosphatase [Enzyma tic activity/volume] in Serum or PlasmaOrdered By: Sharan Ayoub on 05-13-2024 ALP [Catalytic activity/Vol] 269 U/L High 34-104 [facility] Aspartate aminotransferase [ Enzymatic activity/volume] in Serum or PlasmaOrdered By: Sharan Ayoub on 05-13-2024 AST [Catalytic activity/Vol] 118 U/L High 13-39 [facility] Basophils Auto (Bld) [#/Vol] Ordered By: Sharan Ayoub on 05-13-2024 Basophils (Bld) [#/Vol] 0.1 10*3/uL 0.0-0.2 [facility] Basophils/100 WBC Auto (Bld) Ordered By: Sharan Ayoub on 05-13-2024 Basophils/100 WBC (Bld) 1.4 % . [facility] Bilirubin.total [Mass/volume ] in Serum or PlasmaOrdered By: Sharan Ayoub on 05-13-2024 Bilirubin [Mass/Vol] 3.1 mg/dL High 0.3-1.0 [facility] Comment on above: Samples from patient s who have taken Naproxen have shown spurious elevation in Total Bilirubin levels. A metabolite of Naproxen, O-desmethylnaproxen, has been shown to interfere with the Harlan-Uriel method for measuring Total Bilirubin. Calcium [Mass/volume] in Ser um or PlasmaOrdered By: Sharan Ayoub on 05-13-2024 Calcium [Mass/Vol] 8.7 mg/dL 8.6-10.3 [facility] Carbon dioxide, total [Moles /volume] in Serum or PlasmaOrdered By: Sharan Ayoub on 05-13-2024 CO2 [Moles/Vol] 32.8 mmol/L High 21.0-31.0 [facility] Chloride [Moles/volume] in S kasi or PlasmaOrdered By: Sharan Ayoub on 05-13-2024 Chloride [Moles/Vol] 101 mmol/L 98-107 [facility] Creatinine [Mass/volume] in Serum or PlasmaOrdered By: Sharan Ayoub on 05-13-2024 Creatinine [Mass/Vol] 1.04 mg/dL 0.70-1.30 [facility] Eosinophils Auto (Bld) [#/Vo l]Ordered By: Sharan Ayoub on 05-13-2024 Eosinophils (Bld) [#/Vol] 0.1 10*3/uL 0.0-0.45 [facility] Eosinophils/100 WBC Auto (Bl d)Ordered By: Sharan Ayoub on 05-13-2024 Eosinophils/100 WBC (Bld) 1.3 % . [facility] Erythrocyte distribution wid th Auto (RBC) [Ratio]Ordered By: Sharan Ayoub on 05-13-2024 Erythrocyte distribution width (RBC) [Ratio] 15.3 % High 12.0-14.8 [facility] Globulin Calc (S) [Mass/Vol] Ordered By: Sharan Ayoub on 05-13-2024 Globulin (S) [Mass/Vol] 3.5 g/dL [facility] Glucose [Mass/volume] in Ser um or PlasmaOrdered By: Sharan Ayoub on 05-13-2024 Glucose [Mass/Vol] 271 mg/dL High 70-100 [facility] Comment on above: ADA recommended refe rence rangeRandom Glucose Reference Range is dependent on time and content of last meal. Glucose of more than 200 mg/dL in a nonstressed, ambulatory subject supports the diagnosis of Diabetes Mellitus. Hematocrit Auto (Bld) [Volum e fraction]Ordered By: Sharan Ayoub on 05-13-2024 Hematocrit (Bld) [Volume fraction] 42.8 % 38.8-50.0 [facility] Hemoglobin [Mass/volume] in BloodOrdered By: Sharan Ayoub on 05-13-2024 Hemoglobin (Bld) [Mass/Vol] 14.5 g/dL 13.0-17.0 [facility] Leukocytes [#/volume] correc roderick for nucleated erythrocytes in Blood by Automated counOrdered By: Sharan Ayoub on 05-13-2024 WBC corrected for nucl RBC Auto (Bld) [#/Vol] 9.1 10*3/uL 4.1-10.5 [facility] Lymphocytes Auto (Bld) [#/Vo l]Ordered By: Sharan Ayoub on 05-13-2024 Lymphocytes (Bld) [#/Vol] 2.9 10*3/uL 1.00-4.8 [facility] Lymphocytes/100 WBC Auto (Bl d)Ordered By: Sharan Ayoub on 05-13-2024 Lymphocytes/100 WBC (Bld) 32.1 % . [facility] MCH Auto (RBC) [Entitic mass ]Ordered By: Sharan Ayoub on 05-13-2024 MCH (RBC) [Entitic mass] 31.1 pg 27.5-35.2 [facility] MCHC Auto (RBC) [Mass/Vol]Or dered By: Sharan Ayoub on 05-13-2024 MCHC (RBC) [Mass/Vol] 33.9 g/dL 32.5-35.6 [facility] MCV Auto (RBC) [Entitic vol] Ordered By: Sharan Ayoub on 05-13-2024 MCV (RBC) [Entitic vol] 91.8 fL 83.5-101 [facility] Monocytes Auto (Bld) [#/Vol] Ordered By: Sharan Ayoub on 05-13-2024 Monocytes (Bld) [#/Vol] 0.7 10*3/uL 0.0-0.8 [facility] Monocytes/100 WBC Auto (Bld) Ordered By: Sharan Ayoub on 05-13-2024 Monocytes/100 WBC (Bld) 7.8 % . [facility] Neutrophils Auto (Bld) [#/Vo l]Ordered By: Sharan Ayoub on 05-13-2024 Neutrophils (Bld) [#/Vol] 5.2 10*3/uL 1.8-7.7 [facility] Neutrophils/100 WBC Auto (Bl d)Ordered By: Sharan Ayoub on 05-13-2024 Neutrophils/100 WBC (Bld) 57.4 % . [facility] No Panel InformationOrdered By: Sharan Ayoub on 05-13-2024 Estimated GFR (CKD-EPI) > 60.0 mL/Min [facility] Creatinine Clearance (Chem N/A [facility] Nucleated erythrocytes [Pres ence] in Blood by Automated countOrdered By: Sharan Ayoub on 05-13-2024 Nucleated RBC Auto Ql (Bld) 0.2 /100{WBC} 0-0.5 [facility] Platelet mean volume Auto (B ld) [Entitic vol]Ordered By: Sharan Ayoub on 05-13-2024 Platelet mean volume (Bld) [Entitic vol] 10.7 fL High 6.6-10.1 [facility] Platelets Auto (Bld) [#/Vol] Ordered By: Sharan Ayoub on 05-13-2024 Platelets (Bld) [#/Vol] 137 10*3/uL Low 150-450 [facility] Potassium [Moles/volume] in Serum or PlasmaOrdered By: Sharan Ayoub on 05-13-2024 Potassium [Moles/Vol] 3.8 mmol/L 3.5-5.1 [facility] Protein [Mass/volume] in Ser um or PlasmaOrdered By: Sharan Ayoub on 05-13-2024 Protein [Mass/Vol] 6.5 g/dL 6.4-8.9 [facility] RBC Auto (Bld) [#/Vol]Ordere d By: Sharan Ayoub on 05-13-2024 RBC (Bld) [#/Vol] 4.67 10*6/uL 3.90-5.60 [facility] Serum or plasma albumin/glob ulin mass ratioOrdered By: Sharan Ayoub on 05-13-2024 Albumin/Globulin [Mass ratio] 0.9 {ratio} [facility] Serum or plasma anion gap de terminationOrdered By: Sharan Ayoub on 05-13-2024 Anion gap [Moles/Vol] 10.0 mmol/L 6.0-15.[address] [facility] Sodium [Moles/volume] in Ser um or PlasmaOrdered By: Sharan Ayoub on 05-13-2024 Sodium [Moles/Vol] 140 mmol/L 136-145 [facility] Tacrolimus [Mass/volume] in BloodOrdered By: Sharan Ayoub on 05-13-2024 Tacrolimus (Bld) [Mass/Vol] Sent to ref lab [facility] Urea nitrogen [Mass/volume] in Serum or PlasmaOrdered By: Sharan Ayoub on 05-13-2024 Urea nitrogen [Mass/Vol] 15 mg/dL 7-25 [facility] WBC Auto (Bld) [#/Vol]Ordere d By: Sharan Ayoub on 05-13-2024 WBC (Bld) [#/Vol] 9.1 10*3/uL 4.1-10.5 [facility] Basophils Auto (Bld) [#/Vol] on 05-08-2024 Basophils (Bld) [#/Vol] 0.0 10 3/uL 0.0-0.1 [facility] Basophils/100 WBC Auto (Bld) on 05-08-2024 Basophils/100 WBC (Bld) 0.4 % 0.2-2.0 [facility] Eosinophils/100 WBC Auto (Bl d)on 05-08-2024 Eosinophils/100 WBC (Bld) 0.0 % Low 0.9-7.0 [facility] Erythrocyte distribution wid th Auto (RBC) [Ratio]on 05-08-2024 Erythrocyte distribution width (RBC) [Ratio] 13.9 % 11.0-15.0 [facility] Estimated glomerular filtrat ion rate (GFR) non- Americanon 05-08-2024 GFR/1.73 sq M.predicted among non-blacks MDRD (S/P/Bld) [Vol rate/Area] 56 mL/min/{1.73_m2} Low >=60 [facility] Globulin Calc (S) [Mass/Vol] on 05-08-2024 Globulin (S) [Mass/Vol] 3.8 g/dL [facility] Hematocrit Auto (Bld) [Volum e fraction]on 05-08-2024 Hematocrit (Bld) [Volume fraction] 40.1 % Low 42.0-54.0 [facility] Hemoglobin [Mass/volume] in Bloodon 05-08-2024 Hemoglobin (Bld) [Mass/Vol] 13.1 g/dL Low 14.0-18.0 [facility] Laboratory - Chemistry and C hemistry - challengeon 05-08-2024 Bilirubin Ql (U) Negative NEGATIVE [facility] Glucose (U) [Mass/Vol] mg/dL Abnormal NEGATIVE [facility] Ketones Ql (U) Negative NEGATIVE [facility] pH (U) 6.5 [pH] 5.0-9.0 [facility] Specific gravity (U) [Rel density] 1.010 1.005-1.025 [facility] Urobilinogen Qn (U) 0.2 {Jacinta'U}/dL 0.2-1.0 [facility] Albumin [Mass/Vol] 2.3 g/dL Low 3.4-5.0 [facility] ALP [Catalytic activity/Vol] 260 U/L High 46-116 [facility] ALT [Catalytic activity/Vol] 116 U/L High 16-63 [facility] AST [Catalytic activity/Vol] 77 U/L High 15-37 [facility] Bilirubin [Mass/Vol] 3.4 mg/dL High 0.2-1.0 [facility] Calcium [Mass/Vol] 8.5 mg/dL 8.5-10.1 [facility] Chloride [Moles/Vol] 99 mmol/L 98-107 [facility] CO2 [Moles/Vol] 29.8 mmol/L 21.0-32.0 [facility] Creatinine [Mass/Vol] 1.47 mg/dL High 0.70-1.30 [facility] GFR/1.73 sq M.predicted MDRD (S/P/Bld) [Vol rate/Area] mL/min/{1.73_m2} >=60 [facility] Glucose [Mass/Vol] 516 mg/dL High 74-106 [facility] Comment on above: RESULTS CALLED TO TESS FERGUSON RN @BY Patti Williamson at 2151 Lactate [Moles/Vol] 1.9 mmol/L 0.4-2.0 [facility] Lipase [Catalytic activity/Vol] 35.0 U/L 16.0-77.0 [facility] Potassium [Moles/Vol] 4.6 mmol/L 3.5-5.1 [facility] Protein [Mass/Vol] 6.1 g/dL Low 6.4-8.2 [facility] Sodium [Moles/Vol] 133 mmol/L Low 136-145 [facility] Urea nitrogen [Mass/Vol] 19.0 mg/dL High 7.0-18.0 [facility] Urea nitrogen/Creatinine [Mass ratio] 12.9 mg/mg [facility] Laboratory - Hematology and Cell countson 05-08-2024 Immature granulocytes/100 WBC (Bld) 1.0 % High 0.0-0.5 [facility] - Specimen inform ationon 05-08-2024 Appearance (U) CLEAR CLEAR [facility] Color (U) YELLOW YELLOW [facility] Laboratory - Urinalysison Leukocyte esterase Test strip Ql (U) Negative NEGATIVE [facility] Mucus Ql (Urine sed) NONE SEEN NONE SEEN [facility] Nitrite Ql (U) Negative NEGATIVE [facility] Protein Ql (U) Negative NEG/TRACE [facility] Leukocytes [#/volume] correc roderick for nucleated erythrocytes in Blood by Automated counon 05-08-2024 WBC corrected for nucl RBC Auto (Bld) [#/Vol] 6.7 10 3/uL 4.0-11.0 [facility] Lymphocytes Auto (Bld) [#/Vo l]on 05-08-2024 Lymphocytes (Bld) [#/Vol] 0.8 10 3/uL Low 1.2-3.8 [facility] Lymphocytes/100 WBC Auto (Bl d)on 05-08-2024 Lymphocytes/100 WBC (Bld) 11.2 % Low 20.5-60.0 [facility] MCH Auto (RBC) [Entitic mass ]on 05-08-2024 MCH (RBC) [Entitic mass] 31.1 pg 25.9-34.0 [facility] MCHC Auto (RBC) [Mass/Vol]on 05-08-2024 MCHC (RBC) [Mass/Vol] 32.7 g/dL 29.9-35.2 [facility] MCV Auto (RBC) [Entitic vol] on 05-08-2024 MCV (RBC) [Entitic vol] 95.2 fL High 80.0-94.0 [facility] Monocytes Auto (Bld) [#/Vol] on 05-08-2024 Monocytes (Bld) [#/Vol] 0.2 10 3/uL Low 0.3-0.8 [facility] Monocytes/100 WBC Auto (Bld) on 05-08-2024 Monocytes/100 WBC (Bld) 3.0 % 1.7-12.0 [facility] Neutrophils Auto (Bld) [#/Vo l]on 05-08-2024 Neutrophils (Bld) [#/Vol] 5.7 10 3/uL 1.4-6.5 [facility] Neutrophils/100 WBC Auto (Bl d)on 05-08-2024 Neutrophils/100 WBC (Bld) 84.4 % High 43.0-75.0 [facility] No Panel Informationon 05-08 Urine Bacteria NONE SEEN #/HPF NONE SEEN [facility] Urine Culture Reflexed NO [facility] Urine Occult Blood MODERATE Abnormal NEGATIVE [facility] Urine Other Casts NONE SEEN #/LPF NONE SEEN [facility] Urine Other Crystals None Seen #/HPF None Seen [facility] Urine RBC 5-10 #/HPF Abnormal 0-2 [facility] Urine Squamous Epithelial Cells NONE SEEN #/LPF NONE/RARE [facility] Urine WBC 0-2 #/HPF Abnormal NONE SEEN [facility] Acetone Level Negative NEGATIVE [facility] Eosinophils # (Auto) 0.0 10 3/uL 0.0-0.7 [facility] Immature Granulocyte # (Auto) 0.07 10 3/uL High 0.00-0.03 [facility] Platelet mean volume Auto (B ld) [Entitic vol]on 05-08-2024 Platelet mean volume (Bld) [Entitic vol] 12.2 fL 9.5-13.5 [facility] Platelets Auto (Bld) [#/Vol] on 05-08-2024 Platelets (Bld) [#/Vol] 120 10 3/uL Low 150-450 [facility] RBC Auto (Bld) [#/Vol]on RBC (Bld) [#/Vol] 4.21 10 6/uL Low 4.70-6.10 [facility] Serum or plasma albumin/glob ulin mass ratioon 05-08-2024 Albumin/Globulin [Mass ratio] 0.6 {ratio} [facility] Serum or plasma anion gap de terminationon 05-08-2024 Anion gap [Moles/Vol] 8.8 mmol/L [facility] Alanine aminotransferase [En zymatic activity/volume] in Serum or PlasmaOrdered By: Sharan Ayoub on 04-09-2024 ALT [Catalytic activity/Vol] 95 U/L High 7-52 [facility] Albumin [Mass/volume] in Ser um or Plasma by Bromocresol green (BCG) dye binding methoOrdered By: Sharan Ayoub on 04-09-2024 Albumin BCG dye [Mass/Vol] 2.8 g/dL Low 3.5-5.7 [facility] Alkaline phosphatase [Enzyma tic activity/volume] in Serum or PlasmaOrdered By: Sharan Ayoub on 04-09-2024 ALP [Catalytic activity/Vol] 167 U/L High 34-104 [facility] Aspartate aminotransferase [ Enzymatic activity/volume] in Serum or PlasmaOrdered By: Sharan Ayoub on 04-09-2024 AST [Catalytic activity/Vol] 70 U/L High 13-39 [facility] Basophils Auto (Bld) [#/Vol] Ordered By: Sharan Ayoub on 04-09-2024 Basophils (Bld) [#/Vol] 0.1 10*3/uL 0.0-0.2 [facility] Basophils/100 WBC Auto (Bld) Ordered By: Sharan Ayoub on 04-09-2024 Basophils/100 WBC (Bld) 1.0 % . [facility] Bilirubin.total [Mass/volume ] in Serum or PlasmaOrdered By: Sharan Ayoub on 04-09-2024 Bilirubin [Mass/Vol] 3.1 mg/dL High 0.3-1.0 [facility] Comment on above: Samples from patient s who have taken Naproxen have shown spurious elevation in Total Bilirubin levels. A metabolite of Naproxen, O-desmethylnaproxen, has been shown to interfere with the Harlan-Uriel method for measuring Total Bilirubin. Calcium [Mass/volume] in Ser um or PlasmaOrdered By: Sharan Ayoub on 04-09-2024 Calcium [Mass/Vol] 8.5 mg/dL Low 8.6-10.3 [facility] Carbon dioxide, total [Moles /volume] in Serum or PlasmaOrdered By: Sharan Ayoub on 04-09-2024 CO2 [Moles/Vol] 32.5 mmol/L High 21.0-31.0 [facility] Chloride [Moles/volume] in S kasi or PlasmaOrdered By: Sharan Ayoub on 04-09-2024 Chloride [Moles/Vol] 105 mmol/L 98-107 [facility] Creatinine [Mass/volume] in Serum or PlasmaOrdered By: Sharan Ayoub on 04-09-2024 Creatinine [Mass/Vol] 1.06 mg/dL 0.70-1.30 [facility] Eosinophils Auto (Bld) [#/Vo l]Ordered By: Sharan Ayoub on 04-09-2024 Eosinophils (Bld) [#/Vol] 0.1 10*3/uL 0.0-0.45 [facility] Eosinophils/100 WBC Auto (Bl d)Ordered By: Sharan Ayoub on 04-09-2024 Eosinophils/100 WBC (Bld) 0.9 % . [facility] Erythrocyte distribution wid th Auto (RBC) [Ratio]Ordered By: Sharan Ayoub on 04-09-2024 Erythrocyte distribution width (RBC) [Ratio] 14.5 % 12.0-14.8 [facility] Globulin Calc (S) [Mass/Vol] Ordered By: Sharan Ayoub on 04-09-2024 Globulin (S) [Mass/Vol] 3.0 g/dL [facility] Glucose [Mass/volume] in Ser um or PlasmaOrdered By: Sharan Ayoub on 04-09-2024 Glucose [Mass/Vol] 189 mg/dL High 70-100 [facility] Comment on above: ADA recommended refe rence rangeRandom Glucose Reference Range is dependent on time and content of last meal. Glucose of more than 200 mg/dL in a nonstressed, ambulatory subject supports the diagnosis of Diabetes Mellitus. Hematocrit Auto (Bld) [Volum e fraction]Ordered By: Sharan Ayoub on 04-09-2024 Hematocrit (Bld) [Volume fraction] 40.1 % 38.8-50.0 [facility] Hemoglobin [Mass/volume] in BloodOrdered By: Sharan Ayoub on 04-09-2024 Hemoglobin (Bld) [Mass/Vol] 13.5 g/dL 13.0-17.0 [facility] Leukocytes [#/volume] correc roderick for nucleated erythrocytes in Blood by Automated counOrdered By: Sharan Ayoub on 04-09-2024 WBC corrected for nucl RBC Auto (Bld) [#/Vol] 9.9 10*3/uL 4.1-10.5 [facility] Lymphocytes Auto (Bld) [#/Vo l]Ordered By: Sharan Ayoub on 04-09-2024 Lymphocytes (Bld) [#/Vol] 2.7 10*3/uL 1.00-4.8 [facility] Lymphocytes/100 WBC Auto (Bl d)Ordered By: Sharan Ayoub on 04-09-2024 Lymphocytes/100 WBC (Bld) 27.4 % . [facility] MCH Auto (RBC) [Entitic mass ]Ordered By: Sharan Ayoub on 04-09-2024 MCH (RBC) [Entitic mass] 31.4 pg 27.5-35.2 [facility] MCHC Auto (RBC) [Mass/Vol]Or dered By: Sharan Ayoub on 04-09-2024 MCHC (RBC) [Mass/Vol] 33.7 g/dL 32.5-35.6 [facility] MCV Auto (RBC) [Entitic vol] Ordered By: Sharan Ayoub on 04-09-2024 MCV (RBC) [Entitic vol] 93.1 fL 83.5-101 [facility] Monocytes Auto (Bld) [#/Vol] Ordered By: Sharan Ayoub on 04-09-2024 Monocytes (Bld) [#/Vol] 0.6 10*3/uL 0.0-0.8 [facility] Monocytes/100 WBC Auto (Bld) Ordered By: Sharan Ayoub on 04-09-2024 Monocytes/100 WBC (Bld) 6.5 % . [facility] Neutrophils Auto (Bld) [#/Vo l]Ordered By: Sharan Ayoub on 04-09-2024 Neutrophils (Bld) [#/Vol] 6.4 10*3/uL 1.8-7.7 [facility] Neutrophils/100 WBC Auto (Bl d)Ordered By: Sharan Ayoub on 04-09-2024 Neutrophils/100 WBC (Bld) 64.2 % . [facility] No Panel InformationOrdered By: Sharan Ayoub on 04-09-2024 Estimated GFR (CKD-EPI) > 60.0 mL/Min [facility] Creatinine Clearance (Chem N/A [facility] Nucleated erythrocytes [Pres ence] in Blood by Automated countOrdered By: Sharan Ayoub on 04-09-2024 Nucleated RBC Auto Ql (Bld) 0.2 /100{WBC} 0-0.5 [facility] Platelet mean volume Auto (B ld) [Entitic vol]Ordered By: Sharan Ayoub on 04-09-2024 Platelet mean volume (Bld) [Entitic vol] 10.2 fL High 6.6-10.1 [facility] Platelets Auto (Bld) [#/Vol] Ordered By: hSaran Ayoub on 04-09-2024 Platelets (Bld) [#/Vol] 146 10*3/uL Low 150-450 [facility] Potassium [Moles/volume] in Serum or PlasmaOrdered By: Sharan Ayoub on 04-09-2024 Potassium [Moles/Vol] 3.8 mmol/L 3.5-5.1 [facility] Protein [Mass/volume] in Ser um or PlasmaOrdered By: Sharan Ayoub on 04-09-2024 Protein [Mass/Vol] 5.8 g/dL Low 6.4-8.9 [facility] RBC Auto (Bld) [#/Vol]Ordere d By: Sharan Ayoub on 04-09-2024 RBC (Bld) [#/Vol] 4.31 10*6/uL 3.90-5.60 [facility] Serum or plasma albumin/glob ulin mass ratioOrdered By: Sharan Ayoub on 04-09-2024 Albumin/Globulin [Mass ratio] 0.9 {ratio} [facility] Serum or plasma anion gap de terminationOrdered By: Sharan Ayoub on 04-09-2024 Anion gap [Moles/Vol] 8.3 mmol/L 6.0-15.0 [facility] Sodium [Moles/volume] in Ser um or PlasmaOrdered By: Sharan Ayoub on 04-09-2024 Sodium [Moles/Vol] 142 mmol/L 136-145 [facility] Tacrolimus [Mass/volume] in BloodOrdered By: Sharan Ayoub on 04-09-2024 Tacrolimus (Bld) [Mass/Vol] Sent to ref lab [facility] Urea nitrogen [Mass/volume] in Serum or PlasmaOrdered By: Sharan Ayoub on 04-09-2024 Urea nitrogen [Mass/Vol] 21 mg/dL 7-25 [facility] WBC Auto (Bld) [#/Vol]Ordere d By: Sharan Ayoub on 04-09-2024 WBC (Bld) [#/Vol] 9.9 10*3/uL 4.1-10.5 [facility] Alanine aminotransferase [En zymatic activity/volume] in Serum or PlasmaOrdered By: Sharan Ayoub on 2024 ALT [Catalytic activity/Vol] 98 U/L High 7-52 [facility] Albumin [Mass/volume] in Ser um or Plasma by Bromocresol green (BCG) dye binding methoOrdered By: Sharan Ayoub on 2024 Albumin BCG dye [Mass/Vol] 3.2 g/dL Low 3.5-5.7 [facility] Alkaline phosphatase [Enzyma tic activity/volume] in Serum or PlasmaOrdered By: Sharan Ayoub on 2024 ALP [Catalytic activity/Vol] 154 U/L High 34-104 [facility] Aspartate aminotransferase [ Enzymatic activity/volume] in Serum or PlasmaOrdered By: Sharan Ayoub on 2024 AST [Catalytic activity/Vol] 52 U/L High 13-39 [facility] Basophils Auto (Bld) [#/Vol] Ordered By: Sharan Ayoub on 2024 Basophils (Bld) [#/Vol] 0.1 10*3/uL 0.0-0.2 [facility] Basophils/100 WBC Auto (Bld) Ordered By: Sharan Ayoub on 2024 Basophils/100 WBC (Bld) 0.6 % . [facility] Bilirubin.total [Mass/volume ] in Serum or PlasmaOrdered By: Sharan Ayoub on 2024 Bilirubin [Mass/Vol] 2.3 mg/dL High 0.3-1.0 [facility] Comment on above: Samples from patient s who have taken Naproxen have shown spurious elevation in Total Bilirubin levels. A metabolite of Naproxen, O-desmethylnaproxen, has been shown to interfere with the Harlan-Uriel method for measuring Total Bilirubin. Calcium [Mass/volume] in Ser um or PlasmaOrdered By: Sharan Ayoub on 2024 Calcium [Mass/Vol] 8.8 mg/dL 8.6-10.3 [facility] Carbon dioxide, total [Moles /volume] in Serum or PlasmaOrdered By: Sharan Ayoub on 2024 CO2 [Moles/Vol] 29.7 mmol/L 21.0-31.0 [facility] Chloride [Moles/volume] in S kasi or PlasmaOrdered By: Sharan Ayoub on 2024 Chloride [Moles/Vol] 107 mmol/L 98-107 [facility] Creatinine [Mass/volume] in Serum or PlasmaOrdered By: Sharan Ayoub on 2024 Creatinine [Mass/Vol] 1.01 mg/dL 0.70-1.30 [facility] Eosinophils Auto (Bld) [#/Vo l]Ordered By: Sharan Ayoub on 2024 Eosinophils (Bld) [#/Vol] 0.1 10*3/uL 0.0-0.45 [facility] Eosinophils/100 WBC Auto (Bl d)Ordered By: Sharan Ayoub on 2024 Eosinophils/100 WBC (Bld) 0.7 % . [facility] Erythrocyte distribution wid th Auto (RBC) [Ratio]Ordered By: Sharan Ayoub on 2024 Erythrocyte distribution width (RBC) [Ratio] 14.7 % 12.0-14.8 [facility] Globulin Calc (S) [Mass/Vol] Ordered By: Sharan Ayoub on 2024 Globulin (S) [Mass/Vol] 3.3 g/dL [facility] Glucose [Mass/volume] in Ser um or PlasmaOrdered By: Sharan Ayoub on 2024 Glucose [Mass/Vol] 125 mg/dL High 70-100 [facility] Comment on above: ADA recommended refe rence rangeRandom Glucose Reference Range is dependent on time and content of last meal. Glucose of more than 200 mg/dL in a nonstressed, ambulatory subject supports the diagnosis of Diabetes Mellitus. Hematocrit Auto (Bld) [Volum e fraction]Ordered By: Sharan Ayoub on 2024 Hematocrit (Bld) [Volume fraction] 41.8 % 38.8-50.0 [facility] Hemoglobin [Mass/volume] in BloodOrdered By: Sharan Ayoub on 2024 Hemoglobin (Bld) [Mass/Vol] 14.0 g/dL 13.0-17.0 [facility] Leukocytes [#/volume] correc roderick for nucleated erythrocytes in Blood by Automated counOrdered By: Sharan Ayoub on 2024 WBC corrected for nucl RBC Auto (Bld) [#/Vol] 11.8 10*3/uL High 4.1-10.5 [facility] Lymphocytes Auto (Bld) [#/Vo l]Ordered By: Sharan Ayoub on 2024 Lymphocytes (Bld) [#/Vol] 4.3 10*3/uL 1.00-4.8 [facility] Lymphocytes/100 WBC Auto (Bl d)Ordered By: Sharan Ayoub on 2024 Lymphocytes/100 WBC (Bld) 36.3 % . [facility] MCH Auto (RBC) [Entitic mass ]Ordered By: Sharan Ayoub on 2024 MCH (RBC) [Entitic mass] 31.4 pg 27.5-35.2 [facility] MCHC Auto (RBC) [Mass/Vol]Or dered By: Sharan Ayoub on 2024 MCHC (RBC) [Mass/Vol] 33.6 g/dL 32.5-35.6 [facility] MCV Auto (RBC) [Entitic vol] Ordered By: Sharan Ayoub on 2024 MCV (RBC) [Entitic vol] 93.3 fL 83.5-101 [facility] Monocytes Auto (Bld) [#/Vol] Ordered By: Sharan Ayoub on 2024 Monocytes (Bld) [#/Vol] 0.8 10*3/uL 0.0-0.8 [facility] Monocytes/100 WBC Auto (Bld) Ordered By: Sharan Ayoub on 2024 Monocytes/100 WBC (Bld) 6.9 % . [facility] Neutrophils Auto (Bld) [#/Vo l]Ordered By: Sharan Ayoub on 2024 Neutrophils (Bld) [#/Vol] 6.6 10*3/uL 1.8-7.7 [facility] Neutrophils/100 WBC Auto (Bl d)Ordered By: Sharan Ayoub on 2024 Neutrophils/100 WBC (Bld) 55.5 % . [facility] No Panel InformationOrdered By: Sharan Ayoub on 2024 Estimated GFR (CKD-EPI) > 60.0 mL/Min [facility] Creatinine Clearance (Chem N/A [facility] Nucleated erythrocytes [Pres ence] in Blood by Automated countOrdered By: Sharan Ayoub on 2024 Nucleated RBC Auto Ql (Bld) 0.2 /100{WBC} 0-0.5 [facility] Platelet mean volume Auto (B ld) [Entitic vol]Ordered By: Sharan Ayoub on 2024 Platelet mean volume (Bld) [Entitic vol] 11.6 fL High 6.6-10.1 [facility] Platelets Auto (Bld) [#/Vol] Ordered By: Sharan Ayoub on 2024 Platelets (Bld) [#/Vol] 161 10*3/uL 150-450 [facility] Potassium [Moles/volume] in Serum or PlasmaOrdered By: Sharan Ayoub on 2024 Potassium [Moles/Vol] 3.8 mmol/L 3.5-5.1 [facility] Protein [Mass/volume] in Ser um or PlasmaOrdered By: Sharan Ayoub on 2024 Protein [Mass/Vol] 6.5 g/dL 6.4-8.9 [facility] RBC Auto (Bld) [#/Vol]Ordere d By: Sharan Ayoub on 2024 RBC (Bld) [#/Vol] 4.48 10*6/uL 3.90-5.60 [facility] Serum or plasma albumin/glob ulin mass ratioOrdered By: Sharan Ayoub on 2024 Albumin/Globulin [Mass ratio] 1.0 {ratio} [facility] Serum or plasma anion gap de terminationOrdered By: Sharan Ayoub on 2024 Anion gap [Moles/Vol] 8.1 mmol/L 6.0-15.0 [facility] Sodium [Moles/volume] in Ser um or PlasmaOrdered By: Sharan Ayoub on 2024 Sodium [Moles/Vol] 141 mmol/L 136-145 [facility] Tacrolimus [Mass/volume] in BloodOrdered By: Sharan Ayoub on 2024 Tacrolimus (Bld) [Mass/Vol] Sent to ref lab [facility] Urea nitrogen [Mass/volume] in Serum or PlasmaOrdered By: Sharan Ayoub on 2024 Urea nitrogen [Mass/Vol] 21 mg/dL 7-25 [facility] WBC Auto (Bld) [#/Vol]Ordere d By: Sharan Ayoub on 2024 WBC (Bld) [#/Vol] 11.8 10*3/uL High 4.1-10.5 [facility] Alanine aminotransferase [En zymatic activity/volume] in Serum or PlasmaOrdered By: Sharan Ayoub on 03-06-2024 ALT [Catalytic activity/Vol] 109 U/L High 7-52 [facility] Albumin [Mass/volume] in Ser um or Plasma by Bromocresol green (BCG) dye binding methoOrdered By: Sharan Ayoub on 03-06-2024 Albumin BCG dye [Mass/Vol] 3.1 g/dL Low 3.5-5.7 [facility] Alkaline phosphatase [Enzyma tic activity/volume] in Serum or PlasmaOrdered By: Sharan Ayoub on 03-06-2024 ALP [Catalytic activity/Vol] 148 U/L High 34-104 [facility] Aspartate aminotransferase [ Enzymatic activity/volume] in Serum or PlasmaOrdered By: Sharan Ayoub on 03-06-2024 AST [Catalytic activity/Vol] 70 U/L High 13-39 [facility] Basophils Auto (Bld) [#/Vol] Ordered By: Sharan Ayoub on 03-06-2024 Basophils (Bld) [#/Vol] 0.1 10*3/uL 0.0-0.2 [facility] Basophils/100 WBC Auto (Bld) Ordered By: Sharan Ayoub on 03-06-2024 Basophils/100 WBC (Bld) 0.6 % . [facility] Bilirubin.total [Mass/volume ] in Serum or PlasmaOrdered By: Sharan Ayoub on 03-06-2024 Bilirubin [Mass/Vol] 2.1 mg/dL High 0.3-1.0 [facility] Comment on above: Samples from patient s who have taken Naproxen have shown spurious elevation in Total Bilirubin levels. A metabolite of Naproxen, O-desmethylnaproxen, has been shown to interfere with the Harlan-Uriel method for measuring Total Bilirubin. Calcium [Mass/volume] in Ser um or PlasmaOrdered By: Sharan Ayoub on 03-06-2024 Calcium [Mass/Vol] 8.9 mg/dL 8.6-10.3 [facility] Carbon dioxide, total [Moles /volume] in Serum or PlasmaOrdered By: Sharan Ayoub on 03-06-2024 CO2 [Moles/Vol] 28.2 mmol/L 21.0-31.0 [facility] Chloride [Moles/volume] in S kasi or PlasmaOrdered By: Sharan Ayoub on 03-06-2024 Chloride [Moles/Vol] 104 mmol/L 98-107 [facility] Creatinine [Mass/volume] in Serum or PlasmaOrdered By: Sharan Ayoub on 03-06-2024 Creatinine [Mass/Vol] 1.10 mg/dL 0.70-1.30 [facility] Eosinophils Auto (Bld) [#/Vo l]Ordered By: Sharan Ayoub on 03-06-2024 Eosinophils (Bld) [#/Vol] 0.1 10*3/uL 0.0-0.45 [facility] Eosinophils/100 WBC Auto (Bl d)Ordered By: Sharan Ayoub on 03-06-2024 Eosinophils/100 WBC (Bld) 0.6 % . [facility] Erythrocyte distribution wid th Auto (RBC) [Ratio]Ordered By: Sharan Ayoub on 03-06-2024 Erythrocyte distribution width (RBC) [Ratio] 14.9 % High 12.0-14.8 [facility] Globulin Calc (S) [Mass/Vol] Ordered By: Sharan Ayoub on 03-06-2024 Globulin (S) [Mass/Vol] 3.0 g/dL [facility] Glucose [Mass/volume] in Ser um or PlasmaOrdered By: Sharan Ayoub on 03-06-2024 Glucose [Mass/Vol] 337 mg/dL High 70-100 [facility] Comment on above: ADA recommended refe rence rangeRandom Glucose Reference Range is dependent on time and content of last meal. Glucose of more than 200 mg/dL in a nonstressed, ambulatory subject supports the diagnosis of Diabetes Mellitus. Hematocrit Auto (Bld) [Volum e fraction]Ordered By: Sharan Ayoub on 03-06-2024 Hematocrit (Bld) [Volume fraction] 40.0 % 38.8-50.0 [facility] Hemoglobin [Mass/volume] in BloodOrdered By: Sharan Ayoub on 03-06-2024 Hemoglobin (Bld) [Mass/Vol] 13.5 g/dL 13.0-17.0 [facility] Leukocytes [#/volume] correc roderick for nucleated erythrocytes in Blood by Automated counOrdered By: Sharan Ayoub on 03-06-2024 WBC corrected for nucl RBC Auto (Bld) [#/Vol] 9.6 10*3/uL 4.1-10.5 [facility] Lymphocytes Auto (Bld) [#/Vo l]Ordered By: Sharan Ayoub on 03-06-2024 Lymphocytes (Bld) [#/Vol] 3.6 10*3/uL 1.00-4.8 [facility] Lymphocytes/100 WBC Auto (Bl d)Ordered By: Sharan Ayoub on 03-06-2024 Lymphocytes/100 WBC (Bld) 37.7 % . [facility] MCH Auto (RBC) [Entitic mass ]Ordered By: Sharan Ayoub on 03-06-2024 MCH (RBC) [Entitic mass] 31.6 pg 27.5-35.2 [facility] MCHC Auto (RBC) [Mass/Vol]Or dered By: Sharan Ayoub on 03-06-2024 MCHC (RBC) [Mass/Vol] 33.8 g/dL 32.5-35.6 [facility] MCV Auto (RBC) [Entitic vol] Ordered By: Sharan Ayoub on 03-06-2024 MCV (RBC) [Entitic vol] 93.5 fL 83.5-101 [facility] Monocytes Auto (Bld) [#/Vol] Ordered By: Sharan Ayoub on 03-06-2024 Monocytes (Bld) [#/Vol] 0.6 10*3/uL 0.0-0.8 [facility] Monocytes/100 WBC Auto (Bld) Ordered By: Sharan Ayoub on 03-06-2024 Monocytes/100 WBC (Bld) 6.5 % . [facility] Neutrophils Auto (Bld) [#/Vo l]Ordered By: Sharan Ayoub on 03-06-2024 Neutrophils (Bld) [#/Vol] 5.2 10*3/uL 1.8-7.7 [facility] Neutrophils/100 WBC Auto (Bl d)Ordered By: Sharan Ayoub on 03-06-2024 Neutrophils/100 WBC (Bld) 54.6 % . [facility] No Panel InformationOrdered By: Sharan Ayoub on 03-06-2024 Estimated GFR (CKD-EPI) > 60.0 mL/Min [facility] Creatinine Clearance (Chem N/A [facility] Nucleated erythrocytes [Pres ence] in Blood by Automated countOrdered By: Sharan Ayoub on 03-06-2024 Nucleated RBC Auto Ql (Bld) 0.2 /100{WBC} 0-0.5 [facility] Platelet mean volume Auto (B ld) [Entitic vol]Ordered By: Sharan Ayoub on 03-06-2024 Platelet mean volume (Bld) [Entitic vol] 11.4 fL High 6.6-10.1 [facility] Platelets Auto (Bld) [#/Vol] Ordered By: Sharan Ayoub on 03-06-2024 Platelets (Bld) [#/Vol] 150 10*3/uL 150-450 [facility] Potassium [Moles/volume] in Serum or PlasmaOrdered By: Sharan Ayoub on 03-06-2024 Potassium [Moles/Vol] 3.9 mmol/L 3.5-5.1 [facility] Protein [Mass/volume] in Ser um or PlasmaOrdered By: Sharan Ayoub on 03-06-2024 Protein [Mass/Vol] 6.1 g/dL Low 6.4-8.9 [facility] RBC Auto (Bld) [#/Vol]Ordere d By: Sharan Ayoub on 03-06-2024 RBC (Bld) [#/Vol] 4.28 10*6/uL 3.90-5.60 [facility] Serum or plasma albumin/glob ulin mass ratioOrdered By: Sharan Ayoub on 03-06-2024 Albumin/Globulin [Mass ratio] 1.0 {ratio} [facility] Serum or plasma anion gap de terminationOrdered By: Sharan Ayoub on 03-06-2024 Anion gap [Moles/Vol] 9.7 mmol/L 6.0-15.0 [facility] Sodium [Moles/volume] in Ser um or PlasmaOrdered By: Sharan Ayoub on 03-06-2024 Sodium [Moles/Vol] 138 mmol/L 136-145 [facility] Tacrolimus [Mass/volume] in BloodOrdered By: Sharan Ayoub on 03-06-2024 Tacrolimus (Bld) [Mass/Vol] Sent to ref lab [facility] Urea nitrogen [Mass/volume] in Serum or PlasmaOrdered By: Sharan Ayoub on 03-06-2024 Urea nitrogen [Mass/Vol] 25 mg/dL 7-25 [facility] WBC Auto (Bld) [#/Vol]Ordere d By: Sharan Ayoub on 03-06-2024 WBC (Bld) [#/Vol] 9.6 10*3/uL 4.1-10.5 [facility] Alanine aminotransferase [En zymatic activity/volume] in Serum or PlasmaOrdered By: Sharan Ayoub on 02-27-2024 ALT [Catalytic activity/Vol] 119 U/L High 7-52 [facility] Albumin [Mass/volume] in Ser um or Plasma by Bromocresol green (BCG) dye binding methoOrdered By: Sharan Ayoub on 02-27-2024 Albumin BCG dye [Mass/Vol] 3.3 g/dL Low 3.5-5.7 [facility] Alkaline phosphatase [Enzyma tic activity/volume] in Serum or PlasmaOrdered By: Sharan Ayoub on 02-27-2024 ALP [Catalytic activity/Vol] 184 U/L High 34-104 [facility] Aspartate aminotransferase [ Enzymatic activity/volume] in Serum or PlasmaOrdered By: Sharan Ayoub on 02-27-2024 AST [Catalytic activity/Vol] 77 U/L High 13-39 [facility] Basophils Auto (Bld) [#/Vol] Ordered By: Sharan Ayoub on 02-27-2024 Basophils (Bld) [#/Vol] 0.1 10*3/uL 0.0-0.2 [facility] Basophils/100 WBC Auto (Bld) Ordered By: Sharan Ayoub on 02-27-2024 Basophils/100 WBC (Bld) 0.6 % . [facility] Bilirubin.total [Mass/volume ] in Serum or PlasmaOrdered By: Sharan Ayoub on 02-27-2024 Bilirubin [Mass/Vol] 2.5 mg/dL High 0.3-1.0 [facility] Comment on above: Samples from patient s who have taken Naproxen have shown spurious elevation in Total Bilirubin levels. A metabolite of Naproxen, O-desmethylnaproxen, has been shown to interfere with the Harlan-Uriel method for measuring Total Bilirubin. Calcium [Mass/volume] in Ser um or PlasmaOrdered By: Sharan Ayoub on 02-27-2024 Calcium [Mass/Vol] 9.2 mg/dL 8.6-10.3 [facility] Carbon dioxide, total [Moles /volume] in Serum or PlasmaOrdered By: Sharan Ayoub on 02-27-2024 CO2 [Moles/Vol] 30.5 mmol/L 21.0-31.0 [facility] Chloride [Moles/volume] in S kasi or PlasmaOrdered By: Sharan Ayoub on 02-27-2024 Chloride [Moles/Vol] 103 mmol/L 98-107 [facility] Creatinine [Mass/volume] in Serum or PlasmaOrdered By: Sharan Ayoub on 02-27-2024 Creatinine [Mass/Vol] 0.95 mg/dL 0.70-1.30 [facility] Eosinophils Auto (Bld) [#/Vo l]Ordered By: Sharan Ayoub on 02-27-2024 Eosinophils (Bld) [#/Vol] 0.0 10*3/uL 0.0-0.45 [facility] Eosinophils/100 WBC Auto (Bl d)Ordered By: Sharan Ayoub on 02-27-2024 Eosinophils/100 WBC (Bld) 0.5 % . [facility] Erythrocyte distribution wid th Auto (RBC) [Ratio]Ordered By: Sharan Ayoub on 02-27-2024 Erythrocyte distribution width (RBC) [Ratio] 15.2 % High 12.0-14.8 [facility] Globulin Calc (S) [Mass/Vol] Ordered By: Sharan Ayoub on 02-27-2024 Globulin (S) [Mass/Vol] 3.3 g/dL [facility] Glucose [Mass/volume] in Ser um or PlasmaOrdered By: Sharan Ayoub on 02-27-2024 Glucose [Mass/Vol] 169 mg/dL High 70-100 [facility] Comment on above: ADA recommended refe rence rangeRandom Glucose Reference Range is dependent on time and content of last meal. Glucose of more than 200 mg/dL in a nonstressed, ambulatory subject supports the diagnosis of Diabetes Mellitus. Hematocrit Auto (Bld) [Volum e fraction]Ordered By: Sharan Ayoub on 02-27-2024 Hematocrit (Bld) [Volume fraction] 43.6 % 38.8-50.0 [facility] Hemoglobin [Mass/volume] in BloodOrdered By: Sharan Ayoub on 02-27-2024 Hemoglobin (Bld) [Mass/Vol] 14.8 g/dL 13.0-17.0 [facility] Leukocytes [#/volume] correc roderick for nucleated erythrocytes in Blood by Automated counOrdered By: Sharan Ayoub on 02-27-2024 WBC corrected for nucl RBC Auto (Bld) [#/Vol] 9.0 10*3/uL 4.1-10.5 [facility] Lymphocytes Auto (Bld) [#/Vo l]Ordered By: Sharan Ayoub on 02-27-2024 Lymphocytes (Bld) [#/Vol] 3.7 10*3/uL 1.00-4.8 [facility] Lymphocytes/100 WBC Auto (Bl d)Ordered By: Sharan Ayoub on 02-27-2024 Lymphocytes/100 WBC (Bld) 40.8 % . [facility] [facility] MCH Auto (RBC) [Entitic mass ]Ordered By: Sharan Ayoub on 02-27-2024 MCH (RBC) [Entitic mass] 31.4 pg 27.5-35.2 [facility] MCHC Auto (RBC) [Mass/Vol]Or dered By: Sharan Ayoub on 02-27-2024 MCHC (RBC) [Mass/Vol] 33.9 g/dL 32.5-35.6 [facility] MCV Auto (RBC) [Entitic vol] Ordered By: Sharan Ayoub on 02-27-2024 MCV (RBC) [Entitic vol] 92.7 fL 83.5-101 [facility] Monocytes Auto (Bld) [#/Vol] Ordered By: Sharan Ayoub on 02-27-2024 Monocytes (Bld) [#/Vol] 0.9 10*3/uL High 0.0-0.8 [facility] Monocytes/100 WBC Auto (Bld) Ordered By: Sharan Ayoub on 02-27-2024 Monocytes/100 WBC (Bld) 10.0 % . [facility] Neutrophils Auto (Bld) [#/Vo l]Ordered By: Sharan Ayoub on 02-27-2024 Neutrophils (Bld) [#/Vol] 4.3 10*3/uL 1.8-7.7 [facility] Neutrophils/100 WBC Auto (Bl d)Ordered By: Sharan Ayoub on 02-27-2024 Neutrophils/100 WBC (Bld) 48.1 % . [facility] No Panel InformationOrdered By: Sharan Ayoub on 02-27-2024 Estimated GFR (CKD-EPI) > 60.0 mL/Min [facility] Creatinine Clearance (Chem N/A [facility] Nucleated erythrocytes [Pres ence] in Blood by Automated countOrdered By: Sharan Ayoub on 02-27-2024 Nucleated RBC Auto Ql (Bld) 0.4 /100{WBC} 0-0.5 [facility] Platelet mean volume Auto (B ld) [Entitic vol]Ordered By: Sharan Ayoub on 02-27-2024 Platelet mean volume (Bld) [Entitic vol] 10.4 fL High 6.6-10.1 [facility] Platelets Auto (Bld) [#/Vol] Ordered By: Sharan Ayoub on 02-27-2024 Platelets (Bld) [#/Vol] 150 10*3/uL 150-450 [facility] Potassium [Moles/volume] in Serum or PlasmaOrdered By: Sharan Ayoub on 02-27-2024 Potassium [Moles/Vol] 3.9 mmol/L 3.5-5.1 [facility] Protein [Mass/volume] in Ser um or PlasmaOrdered By: Sharan Ayoub on 02-27-2024 Protein [Mass/Vol] 6.6 g/dL 6.4-8.9 [facility] RBC Auto (Bld) [#/Vol]Ordere d By: Sharan Ayoub on 02-27-2024 RBC (Bld) [#/Vol] 4.70 10*6/uL 3.90-5.60 [facility] Serum or plasma albumin/glob ulin mass ratioOrdered By: Sharan Ayoub on 02-27-2024 Albumin/Globulin [Mass ratio] 1.0 {ratio} [facility] Serum or plasma anion gap de terminationOrdered By: Sharan Ayoub on 02-27-2024 Anion gap [Moles/Vol] 8.4 mmol/L 6.0-15.0 [facility] Sodium [Moles/volume] in Ser um or PlasmaOrdered By: Sharan Ayoub on 02-27-2024 Sodium [Moles/Vol] 138 mmol/L 136-145 [facility] Tacrolimus [Mass/volume] in BloodOrdered By: Sharan Ayoub on 02-27-2024 Tacrolimus (Bld) [Mass/Vol] Sent to ref lab [facility] Urea nitrogen [Mass/volume] in Serum or PlasmaOrdered By: Sharan Ayoub on 02-27-2024 Urea nitrogen [Mass/Vol] 20 mg/dL 7-25 [facility] WBC Auto (Bld) [#/Vol]Ordere d By: Sharan Ayoub on 02-27-2024 WBC (Bld) [#/Vol] 9.0 10*3/uL 4.1-10.5 [facility] Alanine aminotransferase [En zymatic activity/volume] in Serum or PlasmaOrdered By: Sharan Ayoub on 02-21-2024 ALT [Catalytic activity/Vol] 118 U/L High 7-52 [facility] Albumin [Mass/volume] in Ser um or Plasma by Bromocresol green (BCG) dye binding methoOrdered By: Sharan Ayoub on 02-21-2024 Albumin BCG dye [Mass/Vol] 3.2 g/dL Low 3.5-5.7 [facility] Alkaline phosphatase [Enzyma tic activity/volume] in Serum or PlasmaOrdered By: Sharan Ayoub on 02-21-2024 ALP [Catalytic activity/Vol] 152 U/L High 34-104 [facility] Aspartate aminotransferase [ Enzymatic activity/volume] in Serum or PlasmaOrdered By: Sharan Ayoub on 02-21-2024 AST [Catalytic activity/Vol] 68 U/L High 13-39 [facility] Basophils Auto (Bld) [#/Vol] Ordered By: Sharan Ayoub on 02-21-2024 Basophils (Bld) [#/Vol] 0.0 10*3/uL 0.0-0.2 [facility] Basophils/100 WBC Auto (Bld) Ordered By: Sharan Ayoub on 02-21-2024 Basophils/100 WBC (Bld) 0.2 % . [facility] Bilirubin.total [Mass/volume ] in Serum or PlasmaOrdered By: Sharan Ayoub on 02-21-2024 Bilirubin [Mass/Vol] 2.2 mg/dL High 0.3-1.0 [facility] Comment on above: Samples from patient s who have taken Naproxen have shown spurious elevation in Total Bilirubin levels. A metabolite of Naproxen, O-desmethylnaproxen, has been shown to interfere with the Austen method for measuring Total Bilirubin. Calcium [Mass/volume] in Ser um or PlasmaOrdered By: Sharan Ayoub on 02-21-2024 Calcium [Mass/Vol] 8.9 mg/dL 8.6-10.3 [facility] Carbon dioxide, total [Moles /volume] in Serum or PlasmaOrdered By: Sharan Ayoub on 02-21-2024 CO2 [Moles/Vol] 29.9 mmol/L 21.0-31.0 [facility] Chloride [Moles/volume] in S kasi or PlasmaOrdered By: Sharan Ayoub on 02-21-2024 Chloride [Moles/Vol] 105 mmol/L 98-107 [facility] Creatinine [Mass/volume] in Serum or PlasmaOrdered By: Sharan Ayoub on 02-21-2024 Creatinine [Mass/Vol] 0.95 mg/dL 0.70-1.30 [facility] Eosinophils Auto (Bld) [#/Vo l]Ordered By: Sharan Ayoub on 02-21-2024 Eosinophils (Bld) [#/Vol] 0.1 10*3/uL 0.0-0.45 [facility] Eosinophils/100 WBC Auto (Bl d)Ordered By: Sharan Ayoub on 02-21-2024 Eosinophils/100 WBC (Bld) 0.6 % . [facility] Erythrocyte distribution wid th Auto (RBC) [Ratio]Ordered By: Sharan Ayoub on 02-21-2024 Erythrocyte distribution width (RBC) [Ratio] 15.3 % High 12.0-14.8 [facility] Globulin Calc (S) [Mass/Vol] Ordered By: Sharan Ayoub on 02-21-2024 Globulin (S) [Mass/Vol] 2.9 g/dL [facility] Glucose [Mass/volume] in Ser um or PlasmaOrdered By: Sharan Ayoub on 02-21-2024 Glucose [Mass/Vol] 213 mg/dL High 70-100 [facility] Comment on above: ADA recommended refe rence rangeRandom Glucose Reference Range is dependent on time and content of last meal. Glucose of more than 200 mg/dL in a nonstressed, ambulatory subject supports the diagnosis of Diabetes Mellitus. Hematocrit Auto (Bld) [Volum e fraction]Ordered By: Sharan Ayoub on 02-21-2024 Hematocrit (Bld) [Volume fraction] 40.2 % 38.8-50.0 [facility] Hemoglobin [Mass/volume] in BloodOrdered By: Sharan Ayoub on 02-21-2024 Hemoglobin (Bld) [Mass/Vol] 13.7 g/dL 13.0-17.0 [facility] Leukocytes [#/volume] correc roderick for nucleated erythrocytes in Blood by Automated counOrdered By: Sharan Ayoub on 02-21-2024 WBC corrected for nucl RBC Auto (Bld) [#/Vol] 10.2 10*3/uL 4.1-10.5 [facility] Lymphocytes Auto (Bld) [#/Vo l]Ordered By: Sharan Ayoub on 02-21-2024 Lymphocytes (Bld) [#/Vol] 2.6 10*3/uL 1.00-4.8 [facility] Lymphocytes/100 WBC Auto (Bl d)Ordered By: Sharan Ayoub on 02-21-2024 Lymphocytes/100 WBC (Bld) 25.4 % . [facility] MCH Auto (RBC) [Entitic mass ]Ordered By: Sharan Ayoub on 02-21-2024 MCH (RBC) [Entitic mass] 31.9 pg 27.5-35.2 [facility] MCHC Auto (RBC) [Mass/Vol]Or dered By: Sharan Ayoub on 02-21-2024 MCHC (RBC) [Mass/Vol] 34.0 g/dL 32.5-35.6 [facility] MCV Auto (RBC) [Entitic vol] Ordered By: Sharan Ayoub on 02-21-2024 MCV (RBC) [Entitic vol] 93.8 fL 83.5-101 [facility] Monocytes Auto (Bld) [#/Vol] Ordered By: Sharan Ayoub on 02-21-2024 Monocytes (Bld) [#/Vol] 0.8 10*3/uL 0.0-0.8 [facility] Monocytes/100 WBC Auto (Bld) Ordered By: Sharan Ayoub on 02-21-2024 Monocytes/100 WBC (Bld) 7.8 % . [facility] Neutrophils Auto (Bld) [#/Vo l]Ordered By: Sharan Ayoub on 02-21-2024 Neutrophils (Bld) [#/Vol] 6.8 10*3/uL 1.8-7.7 [facility] Neutrophils/100 WBC Auto (Bl d)Ordered By: Sharan Ayoub on 02-21-2024 Neutrophils/100 WBC (Bld) 66.0 % . [facility] No Panel InformationOrdered By: Sharan Ayoub on 02-21-2024 Estimated GFR (CKD-EPI) > 60.0 mL/Min [facility] Creatinine Clearance (Chem N/A [facility] Nucleated erythrocytes [Pres ence] in Blood by Automated countOrdered By: Sharan Ayoub on 02-21-2024 Nucleated RBC Auto Ql (Bld) 0.2 /100{WBC} 0-0.5 [facility] Platelet mean volume Auto (B ld) [Entitic vol]Ordered By: Sharan Ayoub on 02-21-2024 Platelet mean volume (Bld) [Entitic vol] 10.6 fL High 6.6-10.1 [facility] Platelets Auto (Bld) [#/Vol] Ordered By: Sharan Ayoub on 02-21-2024 Platelets (Bld) [#/Vol] 140 10*3/uL Low 150-450 [facility] Potassium [Moles/volume] in Serum or PlasmaOrdered By: Sharan Ayoub on 02-21-2024 Potassium [Moles/Vol] 4.1 mmol/L 3.5-5.1 [facility] Protein [Mass/volume] in Ser um or PlasmaOrdered By: Sharan Ayoub on 02-21-2024 Protein [Mass/Vol] 6.1 g/dL Low 6.4-8.9 [facility] RBC Auto (Bld) [#/Vol]Ordere d By: Sharan Ayoub on 02-21-2024 RBC (Bld) [#/Vol] 4.29 10*6/uL 3.90-5.60 [facility] Serum or plasma albumin/glob ulin mass ratioOrdered By: Sharan Ayoub on 02-21-2024 Albumin/Globulin [Mass ratio] 1.1 {ratio} [facility] Serum or plasma anion gap de terminationOrdered By: Sharan Ayoub on 02-21-2024 Anion gap [Moles/Vol] 8.2 mmol/L 6.0-15.0 [facility] Sodium [Moles/volume] in Ser um or PlasmaOrdered By: Sharan Ayoub on 02-21-2024 Sodium [Moles/Vol] 139 mmol/L 136-145 [facility] Tacrolimus [Mass/volume] in BloodOrdered By: Sharan Ayoub on 02-21-2024 Tacrolimus (Bld) [Mass/Vol] Sent to ref lab [facility] Urea nitrogen [Mass/volume] in Serum or PlasmaOrdered By: Sharan Ayoub on 02-21-2024 Urea nitrogen [Mass/Vol] 24 mg/dL 7-25 [facility] WBC Auto (Bld) [#/Vol]Ordere d By: Sharan Ayoub on 02-21-2024 WBC (Bld) [#/Vol] 10.2 10*3/uL 4.1-10.5 [facility] Alanine aminotransferase [En zymatic activity/volume] in Serum or PlasmaOrdered By: Sharan Ayoub on 02-15-2024 ALT [Catalytic activity/Vol] 143 U/L High 7-52 [facility] Albumin [Mass/volume] in Ser um or Plasma by Bromocresol green (BCG) dye binding methoOrdered By: Sharan Ayoub on 02-15-2024 Albumin BCG dye [Mass/Vol] 3.4 g/dL Low 3.5-5.7 [facility] Alkaline phosphatase [Enzyma tic activity/volume] in Serum or PlasmaOrdered By: Sharan Ayoub on 02-15-2024 ALP [Catalytic activity/Vol] 153 U/L High 34-104 [facility] Aspartate aminotransferase [ Enzymatic activity/volume] in Serum or PlasmaOrdered By: Sharan Ayoub on 02-15-2024 AST [Catalytic activity/Vol] 80 U/L High 13-39 [facility] Basophils Auto (Bld) [#/Vol] Ordered By: Sharan Ayoub on 02-15-2024 Basophils (Bld) [#/Vol] 0.0 10*3/uL 0.0-0.2 [facility] Basophils/100 WBC Auto (Bld) Ordered By: Sharan Ayoub on 02-15-2024 Basophils/100 WBC (Bld) 0.5 % . [facility] Bilirubin.total [Mass/volume ] in Serum or PlasmaOrdered By: Sharan Ayoub on 02-15-2024 Bilirubin [Mass/Vol] 2.4 mg/dL High 0.3-1.0 [facility] Comment on above: Samples from patient s who have taken Naproxen have shown spurious elevation in Total Bilirubin levels. A metabolite of Naproxen, O-desmethylnaproxen, has been shown to interfere with the Harlan-Uriel method for measuring Total Bilirubin. Calcium [Mass/volume] in Ser um or PlasmaOrdered By: Sharan Ayoub on 02-15-2024 Calcium [Mass/Vol] 9.0 mg/dL 8.6-10.3 [facility] Carbon dioxide, total [Moles /volume] in Serum or PlasmaOrdered By: Sharan Ayoub on 02-15-2024 CO2 [Moles/Vol] 30.1 mmol/L 21.0-31.0 [facility] Chloride [Moles/volume] in S kasi or PlasmaOrdered By: Sharan Ayoub on 02-15-2024 Chloride [Moles/Vol] 104 mmol/L 98-107 [facility] Creatinine [Mass/volume] in Serum or PlasmaOrdered By: Sharan Ayoub on 02-15-2024 Creatinine [Mass/Vol] 1.00 mg/dL 0.70-1.30 [facility] Eosinophils Auto (Bld) [#/Vo l]Ordered By: Sharan Ayoub on 02-15-2024 Eosinophils (Bld) [#/Vol] 0.0 10*3/uL 0.0-0.45 [facility] Eosinophils/100 WBC Auto (Bl d)Ordered By: Sharan Ayoub on 02-15-2024 Eosinophils/100 WBC (Bld) 0.6 % . [facility] Erythrocyte distribution wid th Auto (RBC) [Ratio]Ordered By: Sharan Ayoub on 02-15-2024 Erythrocyte distribution width (RBC) [Ratio] 15.3 % High 12.0-14.8 [facility] Globulin Calc (S) [Mass/Vol] Ordered By: Sharan Ayoub on 02-15-2024 Globulin (S) [Mass/Vol] 3.1 g/dL [facility] Glucose [Mass/volume] in Ser um or PlasmaOrdered By: Sharan Ayoub on 02-15-2024 Glucose [Mass/Vol] 238 mg/dL High 70-100 [facility] Comment on above: ADA recommended refe rence rangeRandom Glucose Reference Range is dependent on time and content of last meal. Glucose of more than 200 mg/dL in a nonstressed, ambulatory subject supports the diagnosis of Diabetes Mellitus. Hematocrit Auto (Bld) [Volum e fraction]Ordered By: Sharan Ayoub on 02-15-2024 Hematocrit (Bld) [Volume fraction] 42.7 % 38.8-50.0 [facility] Hemoglobin [Mass/volume] in BloodOrdered By: Sharan Ayoub on 02-15-2024 Hemoglobin (Bld) [Mass/Vol] 14.3 g/dL 13.0-17.0 [facility] Leukocytes [#/volume] correc roderick for nucleated erythrocytes in Blood by Automated counOrdered By: Sharan Ayoub on 02-15-2024 WBC corrected for nucl RBC Auto (Bld) [#/Vol] 7.4 10*3/uL 4.1-10.5 [facility] Lymphocytes Auto (Bld) [#/Vo l]Ordered By: Sharan Ayoub on 02-15-2024 Lymphocytes (Bld) [#/Vol] 2.3 10*3/uL 1.00-4.8 [facility] Lymphocytes/100 WBC Auto (Bl d)Ordered By: Sharan Ayoub on 02-15-2024 Lymphocytes/100 WBC (Bld) 30.7 % . [facility] MCH Auto (RBC) [Entitic mass ]Ordered By: Sharan Ayoub on 02-15-2024 MCH (RBC) [Entitic mass] 31.7 pg 27.5-35.2 [facility] MCHC Auto (RBC) [Mass/Vol]Or dered By: Sharan Ayoub on 02-15-2024 MCHC (RBC) [Mass/Vol] 33.6 g/dL 32.5-35.6 [facility] MCV Auto (RBC) [Entitic vol] Ordered By: Sharan Ayoub on 02-15-2024 MCV (RBC) [Entitic vol] 94.5 fL 83.5-101 [facility] Monocytes Auto (Bld) [#/Vol] Ordered By: Sharan Ayoub on 02-15-2024 Monocytes (Bld) [#/Vol] 0.6 10*3/uL 0.0-0.8 [facility] Monocytes/100 WBC Auto (Bld) Ordered By: Sharan Ayoub on 02-15-2024 Monocytes/100 WBC (Bld) 7.5 % . [facility] Neutrophils Auto (Bld) [#/Vo l]Ordered By: Sharan Ayoub on 02-15-2024 Neutrophils (Bld) [#/Vol] 4.5 10*3/uL 1.8-7.7 [facility] Neutrophils/100 WBC Auto (Bl d)Ordered By: Sharan Ayoub on 02-15-2024 Neutrophils/100 WBC (Bld) 60.7 % . [facility] No Panel InformationOrdered By: Sharan Ayoub on 02-15-2024 Estimated GFR (CKD-EPI) > 60.0 mL/Min [facility] Creatinine Clearance (Chem N/A [facility] Nucleated erythrocytes [Pres ence] in Blood by Automated countOrdered By: Sharan Ayoub on 02-15-2024 Nucleated RBC Auto Ql (Bld) 0.3 /100{WBC} 0-0.5 [facility] Platelet mean volume Auto (B ld) [Entitic vol]Ordered By: Sharan Ayoub on 02-15-2024 Platelet mean volume (Bld) [Entitic vol] 10.6 fL High 6.6-10.1 [facility] Platelets Auto (Bld) [#/Vol] Ordered By: Sharan Ayoub on 02-15-2024 Platelets (Bld) [#/Vol] 134 10*3/uL Low 150-450 [facility] Potassium [Moles/volume] in Serum or PlasmaOrdered By: Sharan Ayoub on 02-15-2024 Potassium [Moles/Vol] 3.8 mmol/L 3.5-5.1 [facility] Protein [Mass/volume] in Ser um or PlasmaOrdered By: Sharan Ayoub on 02-15-2024 Protein [Mass/Vol] 6.5 g/dL 6.4-8.9 [facility] RBC Auto (Bld) [#/Vol]Ordere d By: Sharan Ayoub on 02-15-2024 RBC (Bld) [#/Vol] 4.52 10*6/uL 3.90-5.60 [facility] Serum or plasma albumin/glob ulin mass ratioOrdered By: Sharan Ayoub on 02-15-2024 Albumin/Globulin [Mass ratio] 1.1 {ratio} [facility] Serum or plasma anion gap de terminationOrdered By: Sharan Ayoub on 02-15-2024 Anion gap [Moles/Vol] 7.7 mmol/L 6.0-15.0 [facility] Sodium [Moles/volume] in Ser um or PlasmaOrdered By: Sharan Ayoub on 02-15-2024 Sodium [Moles/Vol] 138 mmol/L 136-145 [facility] Tacrolimus [Mass/volume] in BloodOrdered By: Sharan Ayoub on 02-15-2024 Tacrolimus (Bld) [Mass/Vol] Sent to ref lab [facility] Urea nitrogen [Mass/volume] in Serum or PlasmaOrdered By: Sharan Ayoub on 02-15-2024 Urea nitrogen [Mass/Vol] 24 mg/dL 7-25 [facility] WBC Auto (Bld) [#/Vol]Ordere d By: Sharan Ayoub on 02-15-2024 WBC (Bld) [#/Vol] 7.4 10*3/uL 4.1-10.5 [facility] Alanine aminotransferase [En zymatic activity/volume] in Serum or PlasmaOrdered By: Sharan Ayoub on 02-06-2024 ALT [Catalytic activity/Vol] 141 U/L High 7-52 [facility] Albumin [Mass/volume] in Ser um or Plasma by Bromocresol green (BCG) dye binding methoOrdered By: Sharan Ayoub on 02-06-2024 Albumin BCG dye [Mass/Vol] 3.1 g/dL Low 3.5-5.7 [facility] Alkaline phosphatase [Enzyma tic activity/volume] in Serum or PlasmaOrdered By: Sharan Ayoub on 02-06-2024 ALP [Catalytic activity/Vol] 179 U/L High 34-104 [facility] Aspartate aminotransferase [ Enzymatic activity/volume] in Serum or PlasmaOrdered By: Sharan Ayoub on 02-06-2024 AST [Catalytic activity/Vol] 73 U/L High 13-39 [facility] Basophils Auto (Bld) [#/Vol] Ordered By: Sharan Ayoub on 02-06-2024 Basophils (Bld) [#/Vol] 0.0 10*3/uL 0.0-0.2 [facility] Basophils/100 WBC Auto (Bld) Ordered By: Sharan Ayoub on 02-06-2024 Basophils/100 WBC (Bld) 0.2 % . [facility] Bilirubin.total [Mass/volume ] in Serum or PlasmaOrdered By: Sharan Ayoub on 02-06-2024 Bilirubin [Mass/Vol] 2.2 mg/dL High 0.3-1.0 [facility] Comment on above: Samples from patient s who have taken Naproxen have shown spurious elevation in Total Bilirubin levels. A metabolite of Naproxen, O-desmethylnaproxen, has been shown to interfere with the Harlan-Uriel method for measuring Total Bilirubin. Calcium [Mass/volume] in Ser um or PlasmaOrdered By: Sharan Ayoub on 02-06-2024 Calcium [Mass/Vol] 9.0 mg/dL 8.6-10.3 [facility] Carbon dioxide, total [Moles /volume] in Serum or PlasmaOrdered By: Sharan Ayoub on 02-06-2024 CO2 [Moles/Vol] 27.7 mmol/L 21.0-31.0 [facility] Chloride [Moles/volume] in S kasi or PlasmaOrdered By: Sharan Ayoub on 02-06-2024 Chloride [Moles/Vol] 106 mmol/L 98-107 [facility] Creatinine [Mass/volume] in Serum or PlasmaOrdered By: Sharan Ayoub on 02-06-2024 Creatinine [Mass/Vol] 1.03 mg/dL 0.70-1.30 [facility] Eosinophils Auto (Bld) [#/Vo l]Ordered By: Sharan Ayoub on 02-06-2024 Eosinophils (Bld) [#/Vol] 0.0 10*3/uL 0.0-0.45 [facility] Eosinophils/100 WBC Auto (Bl d)Ordered By: Sharan Ayoub on 02-06-2024 Eosinophils/100 WBC (Bld) 0.4 % . [facility] Erythrocyte distribution wid th Auto (RBC) [Ratio]Ordered By: Sharan Ayoub on 02-06-2024 Erythrocyte distribution width (RBC) [Ratio] 15.4 % High 12.0-14.8 [facility] Globulin Calc (S) [Mass/Vol] Ordered By: Sharan Ayoub on 02-06-2024 Globulin (S) [Mass/Vol] 3.1 g/dL [facility] Glucose [Mass/volume] in Ser um or PlasmaOrdered By: Sharan Ayoub on 02-06-2024 Glucose [Mass/Vol] 178 mg/dL High 70-100 [facility] Comment on above: ADA recommended refe rence rangeRandom Glucose Reference Range is dependent on time and content of last meal. Glucose of more than 200 mg/dL in a nonstressed, ambulatory subject supports the diagnosis of Diabetes Mellitus. Hematocrit Auto (Bld) [Volum e fraction]Ordered By: Sharan Ayoub on 02-06-2024 Hematocrit (Bld) [Volume fraction] 41.3 % 38.8-50.0 [facility] Hemoglobin [Mass/volume] in BloodOrdered By: Sharan Ayoub on 02-06-2024 Hemoglobin (Bld) [Mass/Vol] 13.8 g/dL 13.0-17.0 [facility] Leukocytes [#/volume] correc roderick for nucleated erythrocytes in Blood by Automated counOrdered By: Sharan Ayoub on 02-06-2024 WBC corrected for nucl RBC Auto (Bld) [#/Vol] 10.1 10*3/uL 4.1-10.5 [facility] Lymphocytes Auto (Bld) [#/Vo l]Ordered By: Sharan Ayoub on 02-06-2024 Lymphocytes (Bld) [#/Vol] 1.2 10*3/uL 1.00-4.8 [facility] Lymphocytes/100 WBC Auto (Bl d)Ordered By: Sharan Ayoub on 02-06-2024 Lymphocytes/100 WBC (Bld) 12.3 % . [facility] MCH Auto (RBC) [Entitic mass ]Ordered By: Sharan Ayoub on 02-06-2024 MCH (RBC) [Entitic mass] 31.5 pg 27.5-35.2 [facility] MCHC Auto (RBC) [Mass/Vol]Or dered By: Sharan Ayoub on 02-06-2024 MCHC (RBC) [Mass/Vol] 33.4 g/dL 32.5-35.6 [facility] MCV Auto (RBC) [Entitic vol] Ordered By: Sharan Ayoub on 02-06-2024 MCV (RBC) [Entitic vol] 94.3 fL 83.5-101 [facility] Monocytes Auto (Bld) [#/Vol] Ordered By: Sharan Ayoub on 02-06-2024 Monocytes (Bld) [#/Vol] 0.5 10*3/uL 0.0-0.8 [facility] Monocytes/100 WBC Auto (Bld) Ordered By: Sharan Ayoub on 02-06-2024 Monocytes/100 WBC (Bld) 5.1 % . [facility] Neutrophils Auto (Bld) [#/Vo l]Ordered By: Sharan Ayoub on 02-06-2024 Neutrophils (Bld) [#/Vol] 8.3 10*3/uL High 1.8-7.7 [facility] Neutrophils/100 WBC Auto (Bl d)Ordered By: Sharan Ayoub on 02-06-2024 Neutrophils/100 WBC (Bld) 82.0 % . [facility] No Panel InformationOrdered By: Sharan yAoub on 02-06-2024 Estimated GFR (CKD-EPI) > 60.0 mL/Min [facility] Creatinine Clearance (Chem N/A [facility] Nucleated erythrocytes [Pres ence] in Blood by Automated countOrdered By: Sharan Ayoub on 02-06-2024 Nucleated RBC Auto Ql (Bld) 0.1 /100{WBC} 0-0.5 [facility] Platelet mean volume Auto (B ld) [Entitic vol]Ordered By: Sharan Ayoub on 02-06-2024 Platelet mean volume (Bld) [Entitic vol] 10.4 fL High 6.6-10.1 [facility] Platelets Auto (Bld) [#/Vol] Ordered By: Sharan Ayoub on 02-06-2024 Platelets (Bld) [#/Vol] 120 10*3/uL Low 150-450 [facility] Potassium [Moles/volume] in Serum or PlasmaOrdered By: Sharan Ayoub on 02-06-2024 Potassium [Moles/Vol] 3.6 mmol/L 3.5-5.1 [facility] Protein [Mass/volume] in Ser um or PlasmaOrdered By: Sharan Ayoub on 02-06-2024 Protein [Mass/Vol] 6.2 g/dL Low 6.4-8.9 [facility] RBC Auto (Bld) [#/Vol]Ordere d By: Sharan Ayoub on 02-06-2024 RBC (Bld) [#/Vol] 4.38 10*6/uL 3.90-5.60 [facility] Serum or plasma albumin/glob ulin mass ratioOrdered By: Sharan Ayuob on 02-06-2024 Albumin/Globulin [Mass ratio] 1.0 {ratio} [facility] Serum or plasma anion gap de terminationOrdered By: Sharan Ayoub on 02-06-2024 Anion gap [Moles/Vol] 7.9 mmol/L 6.0-15.0 [facility] Sodium [Moles/volume] in Ser um or PlasmaOrdered By: Sharan Ayoub on 02-06-2024 Sodium [Moles/Vol] 138 mmol/L 136-145 [facility] Tacrolimus [Mass/volume] in BloodOrdered By: Sharan Ayoub on 02-06-2024 Tacrolimus (Bld) [Mass/Vol] Sent to ref lab [facility] Urea nitrogen [Mass/volume] in Serum or PlasmaOrdered By: Sharan Ayoub on 02-06-2024 Urea nitrogen [Mass/Vol] 27 mg/dL High 7-25 [facility] WBC Auto (Bld) [#/Vol]Ordere d By: Sharan Ayoub on 02-06-2024 WBC (Bld) [#/Vol] 10.1 10*3/uL 4.1-10.5 [facility] Alanine aminotransferase [En zymatic activity/volume] in Serum or PlasmaOrdered By: Sharan Ayoub on 01-30-2024 ALT [Catalytic activity/Vol] 218 U/L High 7-52 [facility] Albumin [Mass/volume] in Ser um or Plasma by Bromocresol green (BCG) dye binding methoOrdered By: Sharan Ayoub on 01-30-2024 Albumin BCG dye [Mass/Vol] 3.5 g/dL 3.5-5.7 [facility] Alkaline phosphatase [Enzyma tic activity/volume] in Serum or PlasmaOrdered By: Sharan Ayoub on 01-30-2024 ALP [Catalytic activity/Vol] 233 U/L High 34-104 [facility] Aspartate aminotransferase [ Enzymatic activity/volume] in Serum or PlasmaOrdered By: Sharan Ayoub on 01-30-2024 AST [Catalytic activity/Vol] 127 U/L High 13-39 [facility] Basophils Auto (Bld) [#/Vol] Ordered By: Sharan Ayoub on 01-30-2024 Basophils (Bld) [#/Vol] 0.0 10*3/uL 0.0-0.2 [facility] Basophils/100 WBC Auto (Bld) Ordered By: Sharan Ayoub on 01-30-2024 Basophils/100 WBC (Bld) 0.2 % . [facility] Bilirubin.total [Mass/volume ] in Serum or PlasmaOrdered By: Sharan Ayoub on 01-30-2024 Bilirubin [Mass/Vol] 2.4 mg/dL High 0.3-1.0 [facility] Comment on above: Samples from patient s who have taken Naproxen have shown spurious elevation in Total Bilirubin levels. A metabolite of Naproxen, O-desmethylnaproxen, has been shown to interfere with the Harlan-Uriel method for measuring Total Bilirubin. Calcium [Mass/volume] in Ser um or PlasmaOrdered By: Sharan Ayoub on 01-30-2024 Calcium [Mass/Vol] 9.4 mg/dL 8.6-10.3 [facility] Carbon dioxide, total [Moles /volume] in Serum or PlasmaOrdered By: Sharan Ayoub on 01-30-2024 CO2 [Moles/Vol] 29.0 mmol/L 21.0-31.0 [facility] Chloride [Moles/volume] in S kasi or PlasmaOrdered By: Sharan Ayoub on 01-30-2024 Chloride [Moles/Vol] 102 mmol/L 98-107 [facility] Creatinine [Mass/volume] in Serum or PlasmaOrdered By: Sharan Ayoub on 01-30-2024 Creatinine [Mass/Vol] 0.95 mg/dL 0.70-1.30 [facility] Eosinophils Auto (Bld) [#/Vo l]Ordered By: Sharan Ayoub on 01-30-2024 Eosinophils (Bld) [#/Vol] 0.0 10*3/uL 0.0-0.45 [facility] Eosinophils/100 WBC Auto (Bl d)Ordered By: Sharan Ayoub on 01-30-2024 Eosinophils/100 WBC (Bld) 0.0 % . [facility] Erythrocyte distribution wid th Auto (RBC) [Ratio]Ordered By: Sharan Ayoub on 01-30-2024 Erythrocyte distribution width (RBC) [Ratio] 14.9 % High 12.0-14.8 [facility] Globulin Calc (S) [Mass/Vol] Ordered By: Sharan Ayoub on 01-30-2024 Globulin (S) [Mass/Vol] 3.2 g/dL [facility] Glucose [Mass/volume] in Ser um or PlasmaOrdered By: Sharan Ayoub on 01-30-2024 Glucose [Mass/Vol] 345 mg/dL High 70-100 [facility] Comment on above: ADA recommended refe rence rangeRandom Glucose Reference Range is dependent on time and content of last meal. Glucose of more than 200 mg/dL in a nonstressed, ambulatory subject supports the diagnosis of Diabetes Mellitus. Hematocrit Auto (Bld) [Volum e fraction]Ordered By: Sharan Ayoub on 01-30-2024 Hematocrit (Bld) [Volume fraction] 43.5 % 38.8-50.0 [facility] Hemoglobin [Mass/volume] in BloodOrdered By: Sharan Ayoub on 01-30-2024 Hemoglobin (Bld) [Mass/Vol] 14.4 g/dL 13.0-17.0 [facility] Leukocytes [#/volume] correc roderick for nucleated erythrocytes in Blood by Automated counOrdered By: Sharan Ayoub on 01-30-2024 WBC corrected for nucl RBC Auto (Bld) [#/Vol] 11.1 10*3/uL High 4.1-10.5 [facility] Lymphocytes Auto (Bld) [#/Vo l]Ordered By: Sharan Ayoub on 01-30-2024 Lymphocytes (Bld) [#/Vol] 0.8 10*3/uL Low 1.00-4.8 [facility] Lymphocytes/100 WBC Auto (Bl d)Ordered By: Sharan Ayoub on 01-30-2024 Lymphocytes/100 WBC (Bld) 7.6 % . [facility] MCH Auto (RBC) [Entitic mass ]Ordered By: Sharan Ayoub on 01-30-2024 MCH (RBC) [Entitic mass] 31.6 pg 27.5-35.2 [facility] MCHC Auto (RBC) [Mass/Vol]Or dered By: Sharan Ayoub on 01-30-2024 MCHC (RBC) [Mass/Vol] 33.2 g/dL 32.5-35.6 [facility] MCV Auto (RBC) [Entitic vol] Ordered By: Sharan Ayoub on 01-30-2024 MCV (RBC) [Entitic vol] 95.3 fL 83.5-101 [facility] Monocytes Auto (Bld) [#/Vol] Ordered By: Sharan Ayoub on 01-30-2024 Monocytes (Bld) [#/Vol] 0.3 10*3/uL 0.0-0.8 [facility] Monocytes/100 WBC Auto (Bld) Ordered By: Sharan Ayoub on 01-30-2024 Monocytes/100 WBC (Bld) 2.7 % . [facility] Neutrophils Auto (Bld) [#/Vo l]Ordered By: Sharan Ayoub on 01-30-2024 Neutrophils (Bld) [#/Vol] 9.9 10*3/uL High 1.8-7.7 [facility] Neutrophils/100 WBC Auto (Bl d)Ordered By: Sharan Ayoub on 01-30-2024 Neutrophils/100 WBC (Bld) 89.5 % . [facility] No Panel InformationOrdered By: Sharan Ayoub on 01-30-2024 Estimated GFR (CKD-EPI) > 60.0 mL/Min [facility] Creatinine Clearance (Chem N/A [facility] Nucleated erythrocytes [Pres ence] in Blood by Automated countOrdered By: Sharan Ayoub on 01-30-2024 Nucleated RBC Auto Ql (Bld) 0.0 /100{WBC} 0-0.5 [facility] Platelet mean volume Auto (B ld) [Entitic vol]Ordered By: Sharan Ayoub on 01-30-2024 Platelet mean volume (Bld) [Entitic vol] 11.0 fL High 6.6-10.1 [facility] Platelets Auto (Bld) [#/Vol] Ordered By: Sharan Ayoub on 01-30-2024 Platelets (Bld) [#/Vol] 152 10*3/uL 150-450 [facility] Potassium [Moles/volume] in Serum or PlasmaOrdered By: Sharan Ayoub on 01-30-2024 Potassium [Moles/Vol] 3.9 mmol/L 3.5-5.1 [facility] Protein [Mass/volume] in Ser um or PlasmaOrdered By: Sharan Ayoub on 01-30-2024 Protein [Mass/Vol] 6.7 g/dL 6.4-8.9 [facility] RBC Auto (Bld) [#/Vol]Ordere d By: Sharan Ayoub on 01-30-2024 RBC (Bld) [#/Vol] 4.56 10*6/uL 3.90-5.60 [facility] Serum or plasma albumin/glob ulin mass ratioOrdered By: Sharan Ayoub on 01-30-2024 Albumin/Globulin [Mass ratio] 1.1 {ratio} [facility] Serum or plasma anion gap de terminationOrdered By: Sharan Ayoub on 01-30-2024 Anion gap [Moles/Vol] 9.9 mmol/L 6.0-15.0 [facility] Sodium [Moles/volume] in Ser um or PlasmaOrdered By: Sharan Ayoub on 01-30-2024 Sodium [Moles/Vol] 137 mmol/L 136-145 [facility] Tacrolimus [Mass/volume] in BloodOrdered By: Sharan Ayoub on 01-30-2024 Tacrolimus (Bld) [Mass/Vol] See comment [facility] Comment on above: See report. Scanned copy available in EMR. Urea nitrogen [Mass/volume] in Serum or PlasmaOrdered By: Sharan Ayoub on 01-30-2024 Urea nitrogen [Mass/Vol] 28 mg/dL High 7-25 [facility] WBC Auto (Bld) [#/Vol]Ordere d By: Sharan Ayoub on 01-30-2024 WBC (Bld) [#/Vol] 11.1 10*3/uL High 4.1-10.5 [facility] Basic metabolic 2000 panelon 01-24-2024 Anion gap [Moles/Vol] 11 mmol/L 10 - 2 0 mmol/L [facility] Calcium [Mass/Vol] 8.8 mg/dL 8.6 - 10. 6 mg/dL [facility] Chloride [Moles/Vol] 105 mmol/L 98 - 10 7 mmol/L [facility] CO2 [Moles/Vol] 27 mmol/L 21 - 32 mmol/L [facility] Creatinine [Mass/Vol] 1.22 mg/dL 0.50 - 1.30 mg/dL [facility] GFR/1.73 sq M.predicted among non-blacks MDRD (S/P/Bld) [Vol rate/Area] 82 mL/min/{1.73_m2} - PINF [facility] Comment on above: Calculations of zander mated GFR are performed using the 2020 CKD-EPI Study Refit equation without the race variable for the IDMS-Traceable creatinine methods. https://jasn.asnjournals.org/content//ASN.850966 2784 Glucose [Mass/Vol] 231 mg/dL High 74 - 99 mg/dL [facility] Potassium [Moles/Vol] 4.1 mmol/L 3.5 - 5.3 mmol/L [facility] Sodium [Moles/Vol] 139 mmol/L 136 - 145 mmol/L [facility] Urea nitrogen [Mass/Vol] 32 mg/dL High 6 - 23 mg/dL [facility] CBC W Auto Differential pane l (Bld)on 01-24-2024 Basophils (Bld) [#/Vol] 0.02 10*3/uL [facility] Basophils/100 WBC (Bld) 0.2 % 0.0 - 2.0 % [facility] Eosinophils (Bld) [#/Vol] 0.00 10*3/uL [facility] Eosinophils/100 WBC (Bld) 0.0 % 0.0 - 6.0 % [facility] Erythrocyte distribution width (RBC) [Ratio] 13.4 % 11.5 - 14.5 % [facility] Hematocrit (Bld) [Volume fraction] 41.2 % 41.0 - 52.0 % [facility] Hemoglobin (Bld) [Mass/Vol] 13.7 g/dL 13.5 - 17.5 g/dL [facility] Immature granulocytes (Bld) [#/Vol] 0.07 10*3/uL [facility] Immature granulocytes/100 WBC (Bld) 0.8 % 0.0 - 0.9 % [facility] Comment on above: Immature Granulocyte Count (IG) includes promyelocytes, myelocytes and metamyelocytes but does not include bands. Percent differential counts (%) should be interpreted in the context of the absolute cell counts (cells/UL). Interpretation and review of laboratory results Abnormal [facility] Lymphocytes (Bld) [#/Vol] 0.86 10*3/uL Low [facility] Lymphocytes/100 WBC (Bld) 10.2 % 13.0 - 44.0 % [facility] MCH (RBC) [Entitic mass] 30.9 pg 26.0 - 34.0 pg [facility] MCHC (RBC) [Mass/Vol] 33.3 g/dL 32.0 - 36.0 g/dL [facility] MCV (RBC) [Entitic vol] 93 fL 80 - 100 fL [facility] Monocytes (Bld) [#/Vol] 0.56 10*3/uL [facility] Monocytes/100 WBC (Bld) 6.6 % 2.0 - 10.0 % [facility] Neutrophils (Bld) [#/Vol] 6.94 10*3/uL [facility] Comment on above: Percent differential counts (%) should be interpreted in the context of the absolute cell counts (cells/uL). Neutrophils/100 WBC (Bld) 82.2 % 40.0 - 80.0 % [facility] Nucleated RBC/100 WBC (Bld) [Ratio] 0.0 % [facility] Platelets (Bld) [#/Vol] 153 10*3/uL [facility] RBC (Bld) [#/Vol] 4.44 10*6/uL [facility] WBC (Bld) [#/Vol] 8.5 10*3/uL [facility] Glucose Test strip manual (B ld) [Mass/Vol]on 01-24-2024 Glucose [Mass/Vol] 298 mg/dL High 74 - 99 mg/dL [facility] Interpretation and review of laboratory results Abnormal [facility] Glucose [Mass/Vol] 284 mg/dL High 74 - 99 mg/dL [facility] Interpretation and review of laboratory results Abnormal [facility] Glucose [Mass/Vol] 214 mg/dL High 74 - 99 mg/dL [facility] Interpretation and review of laboratory results Abnormal [facility] Glucose [Mass/Vol] 258 mg/dL High 74 - 99 mg/dL [facility] Interpretation and review of laboratory results Abnormal [facility] Hepatic function 2000 panelo n 01-24-2024 Albumin BCP dye [Mass/Vol] 2.9 g/dL Low 3.4 - 5.0 g/dL [facility] ALP [Catalytic activity/Vol] 194 U/L High 33 - 120 U/L [facility] ALT With P-5'-P [Catalytic activity/Vol] 140 U/L High 10 - 52 U/L [facility] Comment on above: Patients treated wit h Sulfasalazine may generate falsely decreased results for ALT. AST With P-5'-P [Catalytic activity/Vol] 113 U/L High 9 - 39 U/L [facility] Bilirubin [Mass/Vol] 2.1 mg/dL High 0.0 - 1 .2 mg/dL [facility] Bilirubin.direct [Mass/Vol] 1.1 mg/dL High 0.0 - 0.3 mg/dL [facility] Interpretation and review of laboratory results Abnormal [facility] Protein [Mass/Vol] 6.6 g/dL 6.4 - 8.2 g/dL [facility] Magnesiumon 01-24-2024 Magnesium [Mass/Vol] 1.81 mg/dL 1.60 - 2.40 mg/dL [facility] Magnesium [Mass/Vol]on 01-23 Interpretation and review of laboratory results Normal [facility] No Panel Informationon 01-23 Interpretation and review of laboratory results Abnormal [facility] PT Coag (PPP) [Time]on 01-23 INR Coag (PPP) [Relative time] 1.2 {INR} High 0.9 - 1.1 [facility] Interpretation and review of laboratory results Abnormal [facility] Phosphoruson 01-24-2024 Phosphate [Mass/Vol] 2.0 mg/dL Low 2.5 - 4 .9 mg/dL [facility] Comment on above: The performance aditi acteristics of phosphorus testing in heparinized plasma have been validated by the individual laboratory site where testing is performed. Testing on heparinized plasma is not approved by the FDA; however, such approval is not necessary. Protime-INRon 01-24-2024 PT Coag (PPP) [Time] 13.4 s High [facility] Tacrolimus (Bld) [Mass/Vol]o n 01-24-2024 Interpretation and review of laboratory results Normal [facility] Work Phone: NOTE: Result was obt ained using a chemiluminescent microparticle immunoassay (CMIA) on the [employer] i system. Optimal therapeutic ranges for immunosuppressant drugs depend upon an individual patient's current clinical state, type of organ transplant, time post-transplant, co-administration of other immunosuppressants, and other clinical factors. The results of this test should be correlated with additional clinical and laboratory data before changes in treatment regimens are made. [facility] Work Phone: [facility] Work Phone: Tacrolimus levelon 4 Tacrolimus (Bld) [Mass/Vol] 6.2 ng/mL NINF - 15.0 ng/mL [facility] Work Phone: Basic metabolic 2000 panelon 01-23-2024 Anion gap [Moles/Vol] 13 mmol/L 10 - 2 0 mmol/L [facility] Calcium [Mass/Vol] 9.0 mg/dL 8.6 - 10. 6 mg/dL [facility] Chloride [Moles/Vol] 101 mmol/L 98 - 10 7 mmol/L [facility] CO2 [Moles/Vol] 28 mmol/L 21 - 32 mmol/L [facility] Creatinine [Mass/Vol] 0.94 mg/dL 0.50 - 1.30 mg/dL [facility] eGFR - PINF [facility] Comment on above: Calculations of zander mated GFR are performed using the 2020 CKD-EPI Study Refit equation without the race variable for the IDMS-Traceable creatinine methods. https://jasn.asnjournals.org/content//ASN.305424 1460 Glucose [Mass/Vol] 239 mg/dL High 74 - 99 mg/dL [facility] Interpretation and review of laboratory results Abnormal [facility] Potassium [Moles/Vol] 4.3 mmol/L 3.5 - 5.3 mmol/L [facility] Sodium [Moles/Vol] 138 mmol/L 136 - 145 mmol/L [facility] Urea nitrogen [Mass/Vol] 33 mg/dL High 6 - 23 mg/dL [facility] CBC W Auto Differential pane l (Bld)on 01-23-2024 Basophils (Bld) [#/Vol] 0.01 10*3/uL [facility] Basophils/100 WBC (Bld) 0.2 % 0.0 - 2.0 % [facility] Eosinophils (Bld) [#/Vol] 0.00 10*3/uL [facility] Eosinophils/100 WBC (Bld) 0.0 % 0.0 - 6.0 % [facility] Erythrocyte distribution width (RBC) [Ratio] 13.5 % 11.5 - 14.5 % [facility] Hematocrit (Bld) [Volume fraction] 40.5 % Low 41.0 - 52.0 % [facility] Hemoglobin (Bld) [Mass/Vol] 13.1 g/dL Low 13.5 - 17.5 g/dL [facility] Immature granulocytes (Bld) [#/Vol] 0.05 10*3/uL [facility] Immature granulocytes/100 WBC (Bld) 0.8 % 0.0 - 0.9 % [facility] Comment on above: Immature Granulocyte Count (IG) includes promyelocytes, myelocytes and metamyelocytes but does not include bands. Percent differential counts (%) should be interpreted in the context of the absolute cell counts (cells/UL). Interpretation and review of laboratory results Abnormal [facility] Lymphocytes (Bld) [#/Vol] 0.66 10*3/uL Low [facility] Lymphocytes/100 WBC (Bld) 10.1 % 13.0 - 44.0 % [facility] MCH (RBC) [Entitic mass] 30.5 pg 26.0 - 34.0 pg [facility] MCHC (RBC) [Mass/Vol] 32.3 g/dL 32.0 - 36.0 g/dL [facility] MCV (RBC) [Entitic vol] 94 fL 80 - 100 fL [facility] Monocytes (Bld) [#/Vol] 0.21 10*3/uL [facility] Monocytes/100 WBC (Bld) 3.2 % 2.0 - 10.0 % [facility] Neutrophils (Bld) [#/Vol] 5.58 10*3/uL [facility] Comment on above: Percent differential counts (%) should be interpreted in the context of the absolute cell counts (cells/uL). Neutrophils/100 WBC (Bld) 85.7 % 40.0 - 80.0 % [facility] Nucleated RBC/100 WBC (Bld) [Ratio] 0.0 % [facility] Platelets (Bld) [#/Vol] 128 10*3/uL [facility] RBC (Bld) [#/Vol] 4.29 10*6/uL [facility] WBC (Bld) [#/Vol] 6.5 10*3/uL [facility] Glucose Test strip manual (B ld) [Mass/Vol]on 01-23-2024 Glucose [Mass/Vol] 303 mg/dL High 74 - 99 mg/dL [facility] Interpretation and review of laboratory results Abnormal [facility] Glucose [Mass/Vol] 337 mg/dL High 74 - 99 mg/dL [facility] Interpretation and review of laboratory results Abnormal [facility] Glucose [Mass/Vol] 203 mg/dL High 74 - 99 mg/dL [facility] Interpretation and review of laboratory results Abnormal [facility] Glucose [Mass/Vol] 267 mg/dL High 74 - 99 mg/dL [facility] Interpretation and review of laboratory results Abnormal [facility] Glucose [Mass/Vol] 248 mg/dL High 74 - 99 mg/dL [facility] Interpretation and review of laboratory results Abnormal [facility] Hepatic function 2000 panelo n 01-23-2024 Albumin BCP dye [Mass/Vol] 2.9 g/dL Low 3.4 - 5.0 g/dL [facility] ALP [Catalytic activity/Vol] 188 U/L High 33 - 120 U/L [facility] ALT With P-5'-P [Catalytic activity/Vol] 116 U/L High 10 - 52 U/L [facility] Comment on above: Patients treated wit h Sulfasalazine may generate falsely decreased results for ALT. AST With P-5'-P [Catalytic activity/Vol] 93 U/L High 9 - 39 U/L [facility] Bilirubin [Mass/Vol] 2.1 mg/dL High 0.0 - 1 .2 mg/dL [facility] Bilirubin.direct [Mass/Vol] 1.1 mg/dL High 0.0 - 0.3 mg/dL [facility] Interpretation and review of laboratory results Abnormal [facility] Protein [Mass/Vol] 6.6 g/dL 6.4 - 8.2 g/dL [facility] Magnesiumon 01-23-2024 Magnesium [Mass/Vol] 1.67 mg/dL 1.60 - 2.40 mg/dL [facility] Natriuretic peptide B [Mass/ Vol]on 01-23-2024 Interpretation and review of laboratory results Normal [facility] Natriuretic peptide B (Bld) [Mass/Vol] 89 pg/mL 0 - 99 pg/mL [facility] <100 pg/mL - Heart f ailure unlikely [...] contact their local laboratory for further information. [facility] No Panel Informationon 01-22 [facility] Interpretation and review of laboratory results Normal [facility] PT Coag (PPP) [Time]on 01-22 INR Coag (PPP) [Relative time] 1.2 {INR} High 0.9 - 1.1 [facility] Interpretation and review of laboratory results Abnormal [facility] Phosphoruson 01-23-2024 Phosphate [Mass/Vol] 3.6 mg/dL 2.5 - 4 .9 mg/dL [facility] Comment on above: The performance aditi acteristics of phosphorus testing in heparinized plasma have been validated by the individual laboratory site where testing is performed. Testing on heparinized plasma is not approved by the FDA; however, such approval is not necessary. Protime-INRon 01-23-2024 PT Coag (PPP) [Time] 13.9 s High [facility] Tacrolimus (Bld) [Mass/Vol]O rdered By: Maxwell Vazquez on 01-23-2024 Interpretation and review of laboratory results Normal [facility] NOTE: Result was obt ained using a chemiluminescent microparticle immunoassay (CMIA) on the [employer] i system. Optimal therapeutic ranges for immunosuppressant drugs depend upon an individual patient's current clinical state, type of organ transplant, time post-transplant, co-administration of other immunosuppressants, and other clinical factors. The results of this test should be correlated with additional clinical and laboratory data before changes in treatment regimens are made. [facility] Tacrolimus levelOrdered By: Maxwell Vazquez on 01-23-2024 Tacrolimus (Bld) [Mass/Vol] 6.7 ng/mL NINF - 15.0 ng/mL [facility] US Guidance for biopsy of [...] findings as stated. Performed and dictated at [facility]. MACRO: None. Signed by: Татьяна Eid 01/23/2024 12:37 PM Dictation workstation: [id number] Interpreted By: Татьяна Eid and Meyers Emily STUDY: US GUIDED NEEDLE LIVER BIOPSY; 01/23/2024 8:52 am INDICATION: Signs/Symptoms:Liver biopsy, concern for acute rejection in liver transplant patient. PLEASE SEND FOR STAT BIOPSY RESULTS TO PATHOLOGY. COMPARISON: Liver biopsy 01/17/2024, ultrasound liver 01/09/2024 ACCESSION NUMBER(S): [id number] ORDERING CLINICIAN: MYA DAWSON TECHNIQUE: INTERVENTIONALIST(S): Dr. [...] biopsy 01/17/2024, ultrasound liver 01/09/2024 ACCESSION NUMBER(S): [id number] ORDERING CLINICIAN: MYA DAWSON TECHNIQUE: INTERVENTIONALIST(S): Dr. [...] findings as stated. Performed and dictated at [facility]. MACRO: None. Signed by: Татьяна Eid 01/23/2024 12:37 PM Dictation workstation: [id number] [facility] Work Phone: [phone] Radiology Study observation (narrative) [facility] Work Phone: [phone] US Guidance for biopsy of Li Jasvirered By: Татьяна Eid on 01-23-2024 [facility] Work Phone: [phone] US Heart TransthoracicOrdere d By: Bethanie Ochoa on 01-23-2024 Aortic Valve Area by Continuity of Peak Velocity 2.38 cm2 [facility] Work Phone: [phone] Aortic Valve Area by Continuity of VTI 2.09 cm2 [facility] Work Phone: [phone] AV mn grad 5.9 mmHg [facility] Work Phone: [phone] AV pk grad 12.8 mmHg [facility] Work Phone: [phone] AV pk donnell 1.79 m/s [facility] Work Phone: [phone] LV A4C EF 66.5 [facility] [facility] Work Phone: [phone] LV Biplane EF 66 % [facility] Work Phone: [phone] LVIDd 4.87 cm [facility] Work Phone: [phone] LVOT diam 1.91 cm [facility] Work Phone: MV avg E/e' ratio 4.92 [facility] Work Phone: MV E/A ratio 1.67 [facility] Work Phone: RV free wall pk S' 19.00 cm/s [facility] Work Phone: Tricuspid annular plane systolic excursion 2.5 cm [facility] Work Phone: [facility] Work Phone: US Heart [employer] [facility], [address] [place] [address] and TRANSTHORACIC ECHOCARDIOGRAM REPORT Patient Name: LULY MACK Weston Physician: [id number] Bethanie Ochoa MD Study Date: 01/23/2024 Ordering Provider: [id number] OLIVIA CASTANEDA MRN/PID: [id number] Fellow: Nurse: Date of /Age: 6 1995 / 28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 [employer] Division: Luz Collado RDCS Gender: M Additional Staff: Height: 177.80 cm Admit Date: 01/18/2024 Weight: 55.34 kg Admission Status: Inpatient - Priority discharge BSA / BMI: 1.69 m2 / 17.50 kg/m2 Department Location: [facility] Non Invasive Blood Pressure: 123 /77 mmHg Study Type: TRANSTHORACIC ECHO (TTE) COMPLETE Diagnosis/ICD: Encounter for screening for cardiovascular disorders-Z13.6 Indication: acute rejection of liver transplant, elevated LFTs, complications, organ transplant CPT Code: Echo Complete w Full Doppler-[id number] Patient History: Pertinent History: S/p liver transplant [...] LA Area A4C: 16.3 cm2 LA Major Caro A4C: 4.9 cm LA Major Caro A2C: 3.5 cm RA VOLUME BY A/L [...] 0.18 m/s (>8 (more content not included)... 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 Records Division: Luz Collado RDCS Gender: M Additional Staff: Height: 177.80 cm Admit Date: 01/18/2024 Weight: 55.34 kg Admission Status: Inpatient - Priority discharge BSA / BMI: 1.69 m2 / 17.50 kg/m2 Department Location: [facility] Non Invasive Blood Pressure: 123 /77 mmHg Study Type: TRANSTHORACIC ECHO (TTE) COMPLETE Diagnosis/ICD: Encounter for screening for cardiovascular disorders-Z13.6 Indication: acute rejection of liver transplant, elevated LFTs, complications, organ transplant CPT Code: Echo Complete w Full Doppler-[id number] Patient History: Pertinent History: S/p liver transplant [...] LA Area A4C: 16.3 cm2 LA Major Caro A4C: 4.9 cm LA Major Caro A2C: 3.5 cm RA VOLUME BY A/L [...] m/s TRICUSPID VALV (more content not included)... [facility] Work Phone: US liver with doppleron 01-01 Interpreted By: Татьяна Eid, STUDY: US LIVER WITH DOPPLER; 01/23/2024 11:19 am INDICATION: Signs/Symptoms:RUQ pain. COMPARISON: Ultrasound liver dated 01/09/2024 ACCESSION NUMBER(S): [id number] ORDERING CLINICIAN: DEBO URIAS TECHNIQUE: Multiple images [...] during ultrasound-guided biopsy dated 01/16 and 01/23/2024. MMODAL Татьяна Eid MD - 01/23/2024 Interpreted By: Татьяна Eid, STUDY: US LIVER WITH DOPPLER; 01/23/2024 11:19 am INDICATION: Signs/Symptoms:RUQ pain. COMPARISON: Ultrasound liver dated 01/09/2024 ACCESSION NUMBER(S): [id number] ORDERING CLINICIAN: DEBO URIAS TECHNIQUE: Multiple images [...] Татьяна Eid 01/23/2024 12:57 PM Dictation workstation: [id number] [facility] Work Phone: [facility] Work Phone: Radiology Study observation (narrative) [facility] Work Phone: Bacteria identified Cx Nom ( Bld)on 01-22-2024 Interpretation and review of laboratory results Normal [facility] Basic metabolic 2000 panelon 01-22-2024 Anion gap [Moles/Vol] 14 mmol/L 10 - 2 0 mmol/L [facility] Calcium [Mass/Vol] 9.1 mg/dL 8.6 - 10. 6 mg/dL [facility] Chloride [Moles/Vol] 102 mmol/L 98 - 10 7 mmol/L [facility] CO2 [Moles/Vol] 26 mmol/L 21 - 32 mmol/L [facility] Creatinine [Mass/Vol] 0.97 mg/dL 0.50 - 1.30 mg/dL [facility] eGFR - PINF [facility] Comment on above: Calculations of zander mated GFR are performed using the 2020 CKD-EPI Study Refit equation without the race variable for the IDMS-Traceable creatinine methods. https://jasn.asnjournals.org/content//ASN.978525 8362 Glucose [Mass/Vol] 336 mg/dL High 74 - 99 mg/dL [facility] Interpretation and review of laboratory results Abnormal [facility] Potassium [Moles/Vol] 4.4 mmol/L 3.5 - 5.3 mmol/L [facility] Sodium [Moles/Vol] 138 mmol/L 136 - 145 mmol/L [facility] Urea nitrogen [Mass/Vol] 38 mg/dL High 6 - 23 mg/dL [facility] CBC W Auto Differential pane l (Bld)on 01-22-2024 Basophils (Bld) [#/Vol] 0.00 10*3/uL [facility] Basophils/100 WBC (Bld) 0.0 % 0.0 - 2.0 % [facility] Eosinophils (Bld) [#/Vol] 0.00 10*3/uL [facility] Eosinophils/100 WBC (Bld) 0.0 % 0.0 - 6.0 % [facility] Erythrocyte distribution width (RBC) [Ratio] 13.5 % 11.5 - 14.5 % [facility] Hematocrit (Bld) [Volume fraction] 42.1 % 41.0 - 52.0 % [facility] Hemoglobin (Bld) [Mass/Vol] 13.4 g/dL Low 13.5 - 17.5 g/dL [facility] Immature granulocytes (Bld) [#/Vol] 0.05 10*3/uL [facility] Immature granulocytes/100 WBC (Bld) 0.7 % 0.0 - 0.9 % [facility] Comment on above: Immature Granulocyte Count (IG) includes promyelocytes, myelocytes and metamyelocytes but does not include bands. Percent differential counts (%) should be interpreted in the context of the absolute cell counts (cells/UL). Interpretation and review of laboratory results Abnormal [facility] Lymphocytes (Bld) [#/Vol] 0.60 10*3/uL Low [facility] Lymphocytes/100 WBC (Bld) 8.0 % 13.0 - 44.0 % [facility] MCH (RBC) [Entitic mass] 30.4 pg 26.0 - 34.0 pg [facility] MCHC (RBC) [Mass/Vol] 31.8 g/dL Low 32.0 - 36.0 g/dL [facility] MCV (RBC) [Entitic vol] 96 fL 80 - 100 fL [facility] Monocytes (Bld) [#/Vol] 0.07 10*3/uL Low [facility] Monocytes/100 WBC (Bld) 0.9 % 2.0 - 10.0 % [facility] Neutrophils (Bld) [#/Vol] 6.77 10*3/uL [facility] Comment on above: Percent differential counts (%) should be interpreted in the context of the absolute cell counts (cells/uL). Neutrophils/100 WBC (Bld) 90.4 % 40.0 - 80.0 % [facility] Nucleated RBC/100 WBC (Bld) [Ratio] 0.0 % [facility] Platelets (Bld) [#/Vol] 134 10*3/uL Low [facility] RBC (Bld) [#/Vol] 4.41 10*6/uL [facility] WBC (Bld) [#/Vol] 7.5 10*3/uL [facility] Glucose Test strip manual (B ld) [Mass/Vol]on 01-22-2024 Glucose [Mass/Vol] 158 mg/dL High 74 - 99 mg/dL [facility] Interpretation and review of laboratory results Abnormal [facility] Glucose [Mass/Vol] 381 mg/dL High 74 - 99 mg/dL [facility] Interpretation and review of laboratory results Abnormal [facility] Glucose [Mass/Vol] 380 mg/dL High 74 - 99 mg/dL [facility] Interpretation and review of laboratory results Abnormal [facility] Glucose [Mass/Vol] 468 mg/dL High 74 - 99 mg/dL [facility] Interpretation and review of laboratory results Abnormal [facility] Glucose [Mass/Vol] 325 mg/dL High 74 - 99 mg/dL [facility] Interpretation and review of laboratory results Abnormal [facility] Hepatic function 2000 panelo n 01-22-2024 Albumin BCP dye [Mass/Vol] 3.0 g/dL Low 3.4 - 5.0 g/dL [facility] ALP [Catalytic activity/Vol] 195 U/L High 33 - 120 U/L [facility] ALT With P-5'-P [Catalytic activity/Vol] 96 U/L High 10 - 52 U/L [facility] Comment on above: Patients treated wit h Sulfasalazine may generate falsely decreased results for ALT. AST With P-5'-P [Catalytic activity/Vol] 87 U/L High 9 - 39 U/L [facility] Bilirubin [Mass/Vol] 1.7 mg/dL High 0.0 - 1 .2 mg/dL [facility] Bilirubin.direct [Mass/Vol] 0.9 mg/dL High 0.0 - 0.3 mg/dL [facility] Interpretation and review of laboratory results Abnormal [facility] Protein [Mass/Vol] 6.7 g/dL 6.4 - 8.2 g/dL [facility] - Microbiology an d Antimicrobial susceptibilityon 01-22-2024 Bacteria identified Cx Nom (Bld) No growth at 4 days - FINAL REPORT [facility] Magnesiumon 01-22-2024 Magnesium [Mass/Vol] 1.83 mg/dL 1.60 - 2.40 mg/dL [facility] No Panel Informationon 01-21 Interpretation and review of laboratory results Normal [facility] Phosphoruson 01-22-2024 Phosphate [Mass/Vol] 4.2 mg/dL 2.5 - 4 .9 mg/dL [facility] Comment on above: The performance aditi acteristics of phosphorus testing in heparinized plasma have been validated by the individual laboratory site where testing is performed. Testing on heparinized plasma is not approved by the FDA; however, such approval is not necessary. Tacrolimus (Bld) [Mass/Vol]O rdered By: Isreal Mosquera on 01-22-2024 Interpretation and review of laboratory results Normal [facility] NOTE: Result was obt ained using a chemiluminescent microparticle immunoassay (CMIA) on the [employer] i system. Optimal therapeutic ranges for immunosuppressant drugs depend upon an individual patient's current clinical state, type of organ transplant, time post-transplant, co-administration of other immunosuppressants, and other clinical factors. The results of this test should be correlated with additional clinical and laboratory data before changes in treatment regimens are made. [facility] Tacrolimus levelOrdered By: Isreal Mosquera on 01-22-2024 Tacrolimus (Bld) [Mass/Vol] 6.3 ng/mL NINF - 15.0 ng/mL [facility] Basic metabolic 2000 panelon 01-21-2024 Anion gap [Moles/Vol] 14 mmol/L 10 - 2 0 mmol/L [facility] Calcium [Mass/Vol] 9.3 mg/dL 8.6 - 10. 6 mg/dL [facility] Chloride [Moles/Vol] 101 mmol/L 98 - 10 7 mmol/L [facility] CO2 [Moles/Vol] 24 mmol/L 21 - 32 mmol/L [facility] Creatinine [Mass/Vol] 1.14 mg/dL 0.50 - 1.30 mg/dL [facility] GFR/1.73 sq M.predicted among non-blacks MDRD (S/P/Bld) [Vol rate/Area] 89 mL/min/{1.73_m2} - PINF [facility] Comment on above: Calculations of zander mated GFR are performed using the 2020 CKD-EPI Study Refit equation without the race variable for the IDMS-Traceable creatinine methods. https://jasn.asnjournals.org/content/early//ASN.275845 4347 Glucose [Mass/Vol] 332 mg/dL High 74 - 99 mg/dL [facility] Potassium [Moles/Vol] 4.2 mmol/L 3.5 - 5.3 mmol/L [facility] Sodium [Moles/Vol] 135 mmol/L Low 136 - 145 mmol/L [facility] Urea nitrogen [Mass/Vol] 35 mg/dL High 6 - 23 mg/dL [facility] CBC W Auto Differential pane l (Bld)on 01-21-2024 Basophils (Bld) [#/Vol] 0.03 10*3/uL [facility] Basophils/100 WBC (Bld) 0.1 % 0.0 - 2.0 % [facility] Eosinophils (Bld) [#/Vol] 0.00 10*3/uL [facility] Eosinophils/100 WBC (Bld) 0.0 % 0.0 - 6.0 % [facility] Erythrocyte distribution width (RBC) [Ratio] 13.6 % 11.5 - 14.5 % [facility] Hematocrit (Bld) [Volume fraction] 42.6 % 41.0 - 52.0 % [facility] Hemoglobin (Bld) [Mass/Vol] 14.2 g/dL 13.5 - 17.5 g/dL [facility] Immature granulocytes (Bld) [#/Vol] 0.15 10*3/uL [facility] Immature granulocytes/100 WBC (Bld) 0.7 % 0.0 - 0.9 % [facility] Comment on above: Immature Granulocyte Count (IG) includes promyelocytes, myelocytes and metamyelocytes but does not include bands. Percent differential counts (%) should be interpreted in the context of the absolute cell counts (cells/UL). Interpretation and review of laboratory results Abnormal [facility] Lymphocytes (Bld) [#/Vol] 0.75 10*3/uL Low [facility] Lymphocytes/100 WBC (Bld) 3.7 % 13.0 - 44.0 % [facility] MCH (RBC) [Entitic mass] 31.4 pg 26.0 - 34.0 pg [facility] MCHC (RBC) [Mass/Vol] 33.3 g/dL 32.0 - 36.0 g/dL [facility] MCV (RBC) [Entitic vol] 94 fL 80 - 100 fL [facility] Monocytes (Bld) [#/Vol] 0.61 10*3/uL [facility] Monocytes/100 WBC (Bld) 3.0 % 2.0 - 10.0 % [facility] Neutrophils (Bld) [#/Vol] 18.82 10*3/uL High [facility] Comment on above: Percent differential counts (%) should be interpreted in the context of the absolute cell counts (cells/uL). Neutrophils/100 WBC (Bld) 92.5 % 40.0 - 80.0 % [facility] Nucleated RBC/100 WBC (Bld) [Ratio] 0.0 % [facility] Platelets (Bld) [#/Vol] 223 10*3/uL [facility] RBC (Bld) [#/Vol] 4.52 10*6/uL [facility] WBC (Bld) [#/Vol] 20.4 10*3/uL High [facility] Glucose Test strip manual (B ld) [Mass/Vol]on 01-21-2024 Glucose [Mass/Vol] 195 mg/dL High 74 - 99 mg/dL [facility] Interpretation and review of laboratory results Abnormal [facility] Glucose [Mass/Vol] 236 mg/dL High 74 - 99 mg/dL [facility] Interpretation and review of laboratory results Abnormal [facility] Glucose [Mass/Vol] 286 mg/dL High 74 - 99 mg/dL [facility] Interpretation and review of laboratory results Abnormal [facility] Glucose [Mass/Vol] 266 mg/dL High 74 - 99 mg/dL [facility] Interpretation and review of laboratory results Abnormal [facility] Hepatic function 2000 panelo n 01-21-2024 Albumin BCP dye [Mass/Vol] 3.5 g/dL 3.4 - 5.0 g/dL [facility] ALP [Catalytic activity/Vol] 227 U/L High 33 - 120 U/L [facility] ALT With P-5'-P [Catalytic activity/Vol] 95 U/L High 10 - 52 U/L [facility] Comment on above: Patients treated wit h Sulfasalazine may generate falsely decreased results for ALT. AST With P-5'-P [Catalytic activity/Vol] 88 U/L High 9 - 39 U/L [facility] Bilirubin [Mass/Vol] 2.0 mg/dL High 0.0 - 1 .2 mg/dL [facility] Bilirubin.direct [Mass/Vol] 1.0 mg/dL High 0.0 - 0.3 mg/dL [facility] Interpretation and review of laboratory results Abnormal [facility] Protein [Mass/Vol] 7.3 g/dL 6.4 - 8.2 g/dL [facility] Magnesiumon 01-21-2024 Magnesium [Mass/Vol] 1.57 mg/dL Low 1.60 - 2.40 mg/dL [facility] No Panel Informationon 01-20 Interpretation and review of laboratory results Abnormal [facility] PT Coag (PPP) [Time]on 01-20 INR Coag (PPP) [Relative time] 1.3 {INR} High 0.9 - 1.1 [facility] Interpretation and review of laboratory results Abnormal [facility] Phosphate [Mass/Vol]on 01-20 Interpretation and review of laboratory results Normal [facility] Phosphoruson 01-21-2024 Phosphate [Mass/Vol] 4.7 mg/dL 2.5 - 4 .9 mg/dL [facility] Comment on above: The performance aditi acteristics of phosphorus testing in heparinized plasma have been validated by the individual laboratory site where testing is performed. Testing on heparinized plasma is not approved by the FDA; however, such approval is not necessary. [facility]time-INRon 01-21-2024 PT Coag (PPP) [Time] 14.1 s High [facility] Tacrolimus (Bld) [Mass/Vol]o n 01-21-2024 Interpretation and review of laboratory results Normal [facility] Work Phone: NOTE: Result was obt ained using a chemiluminescent microparticle immunoassay (CMIA) on the [employer] i system. Optimal therapeutic ranges for immunosuppressant drugs depend upon an individual patient's current clinical state, type of organ transplant, time post-transplant, co-administration of other immunosuppressants, and other clinical factors. The results of this test should be correlated with additional clinical and laboratory data before changes in treatment regimens are made. [facility] Work Phone: [facility] Work Phone: Tacrolimus levelon 4 Tacrolimus (Bld) [Mass/Vol] 6.8 ng/mL NINF - 15.0 ng/mL [facility] Work Phone: Basic metabolic 2000 panelon 01-20-2024 Anion gap [Moles/Vol] 13 mmol/L 10 - 2 0 mmol/L [facility] Calcium [Mass/Vol] 9.3 mg/dL 8.6 - 10. 6 mg/dL [facility] Chloride [Moles/Vol] 100 mmol/L 98 - 10 7 mmol/L [facility] CO2 [Moles/Vol] 25 mmol/L 21 - 32 mmol/L [facility] Creatinine [Mass/Vol] 0.96 mg/dL 0.50 - 1.30 mg/dL [facility] eGFR - PINF [facility] Comment on above: Calculations of zander mated GFR are performed using the 2020 CKD-EPI Study Refit equation without the race variable for the IDMS-Traceable creatinine methods. https://jasn.asnjournals.org/content//ASN.968432 5590 Glucose [Mass/Vol] 241 mg/dL High 74 - 99 mg/dL [facility] Interpretation and review of laboratory results Abnormal [facility] Potassium [Moles/Vol] 4.0 mmol/L 3.5 - 5.3 mmol/L [facility] Sodium [Moles/Vol] 134 mmol/L Low 136 - 145 mmol/L [facility] Urea nitrogen [Mass/Vol] 27 mg/dL High 6 - 23 mg/dL [facility] CBC W Auto Differential pane l (Bld)on 01-20-2024 Basophils (Bld) [#/Vol] 0.03 10*3/uL [facility] Basophils/100 WBC (Bld) 0.1 % 0.0 - 2.0 % [facility] Eosinophils (Bld) [#/Vol] 0.00 10*3/uL [facility] Eosinophils/100 WBC (Bld) 0.0 % 0.0 - 6.0 % [facility] Erythrocyte distribution width (RBC) [Ratio] 13.1 % 11.5 - 14.5 % [facility] Hematocrit (Bld) [Volume fraction] 40.3 % Low 41.0 - 52.0 % [facility] Hemoglobin (Bld) [Mass/Vol] 13.5 g/dL 13.5 - 17.5 g/dL [facility] Immature granulocytes (Bld) [#/Vol] 0.19 10*3/uL [facility] Immature granulocytes/100 WBC (Bld) 0.8 % 0.0 - 0.9 % [facility] Comment on above: Immature Granulocyte Count (IG) includes promyelocytes, myelocytes and metamyelocytes but does not include bands. Percent differential counts (%) should be interpreted in the context of the absolute cell counts (cells/UL). Interpretation and review of laboratory results Abnormal [facility] Lymphocytes (Bld) [#/Vol] 0.81 10*3/uL Low [facility] Lymphocytes/100 WBC (Bld) 3.3 % 13.0 - 44.0 % [facility] MCH (RBC) [Entitic mass] 31.1 pg 26.0 - 34.0 pg [facility] MCHC (RBC) [Mass/Vol] 33.5 g/dL 32.0 - 36.0 g/dL [facility] MCV (RBC) [Entitic vol] 93 fL 80 - 100 fL [facility] Monocytes (Bld) [#/Vol] 0.26 10*3/uL [facility] Monocytes/100 WBC (Bld) 1.1 % 2.0 - 10.0 % [facility] Neutrophils (Bld) [#/Vol] 22.99 10*3/uL High [facility] Comment on above: Percent differential counts (%) should be interpreted in the context of the absolute cell counts (cells/uL). Neutrophils/100 WBC (Bld) 94.7 % 40.0 - 80.0 % [facility] Nucleated RBC/100 WBC (Bld) [Ratio] 0.0 % [facility] Platelets (Bld) [#/Vol] 194 10*3/uL [facility] RBC (Bld) [#/Vol] 4.34 10*6/uL [facility] WBC (Bld) [#/Vol] 24.3 10*3/uL [facility] Glucose Test strip manual (B ld) [Mass/Vol]on 01-20-2024 Glucose [Mass/Vol] 208 mg/dL High 74 - 99 mg/dL [facility] Interpretation and review of laboratory results Abnormal [facility] Glucose [Mass/Vol] 192 mg/dL High 74 - 99 mg/dL [facility] Interpretation and review of laboratory results Abnormal [facility] Glucose [Mass/Vol] 353 mg/dL High 74 - 99 mg/dL [facility] Interpretation and review of laboratory results Abnormal [facility] Glucose [Mass/Vol] 168 mg/dL High 74 - 99 mg/dL [facility] Interpretation and review of laboratory results Abnormal [facility] Hepatic function 2000 panelo n 01-20-2024 Albumin BCP dye [Mass/Vol] 3.2 g/dL Low 3.4 - 5.0 g/dL [facility] ALP [Catalytic activity/Vol] 251 U/L High 33 - 120 U/L [facility] ALT With P-5'-P [Catalytic activity/Vol] 78 U/L High 10 - 52 U/L [facility] Comment on above: Patients treated wit h Sulfasalazine may generate falsely decreased results for ALT. AST With P-5'-P [Catalytic activity/Vol] 68 U/L High 9 - 39 U/L [facility] Bilirubin [Mass/Vol] 1.9 mg/dL High 0.0 - 1 .2 mg/dL [facility] Bilirubin.direct [Mass/Vol] 0.9 mg/dL High 0.0 - 0.3 mg/dL [facility] Interpretation and review of laboratory results Abnormal [facility] Protein [Mass/Vol] 7.2 g/dL 6.4 - 8.2 g/dL [facility] Magnesiumon 01-20-2024 Magnesium [Mass/Vol] 1.95 mg/dL 1.60 - 2.40 mg/dL [facility] No Panel Informationon 01-19 Interpretation and review of laboratory results Normal [facility] PT Coag (PPP) [Time]on 01-19 INR Coag (PPP) [Relative time] 1.2 {INR} High 0.9 - 1.1 [facility] Interpretation and review of laboratory results Abnormal [facility] Phosphoruson 01-20-2024 Phosphate [Mass/Vol] 3.5 mg/dL 2.5 - 4 .9 mg/dL [facility] Comment on above: The performance aditi acteristics of phosphorus testing in heparinized plasma have been validated by the individual laboratory site where testing is performed. Testing on heparinized plasma is not approved by the FDA; however, such approval is not necessary. Protime-INRon 01-20-2024 PT Coag (PPP) [Time] 14.0 s [facility] Tacrolimus (Bld) [Mass/Vol]O rdered By: Annette Freeman on 01-20-2024 Interpretation and review of laboratory results Normal [facility] NOTE: Result was obt ained using a chemiluminescent microparticle immunoassay (CMIA) on the Tent [employer]er i system. Optimal therapeutic ranges for immunosuppressant drugs depend upon an individual patient's current clinical state, type of organ transplant, time post-transplant, co-administration of other immunosuppressants, and other clinical factors. The results of this test should be correlated with additional clinical and laboratory data before changes in treatment regimens are made. [facility] Tacrolimus levelOrdered By: Annette Freeman on 01-20-2024 Tacrolimus (Bld) [Mass/Vol] 6.7 ng/mL NINF - 15.0 ng/mL [facility] Tacrolimus levelon Tacrolimus (Bld) [Mass/Vol] 6.1 ng/mL NINF - 15.0 ng/mL [facility] Work Phone: Basic metabolic 2000 panelon 01-19-2024 Anion gap [Moles/Vol] 13 mmol/L 10 - 2 0 mmol/L [facility] Calcium [Mass/Vol] 8.8 mg/dL 8.6 - 10. 6 mg/dL [facility] Chloride [Moles/Vol] 101 mmol/L 98 - 10 7 mmol/L [facility] CO2 [Moles/Vol] 27 mmol/L 21 - 32 mmol/L [facility] Creatinine [Mass/Vol] 0.88 mg/dL 0.50 - 1.30 mg/dL [facility] eGFR - PINF [facility] Comment on above: Calculations of zander mated GFR are performed using the 2020 CKD-EPI Study Refit equation without the race variable for the IDMS-Traceable creatinine methods. https://jasn.asnjournals.org/content//ASN.426034 1708 Glucose [Mass/Vol] 262 mg/dL High 74 - 99 mg/dL [facility] Interpretation and review of laboratory results Abnormal [facility] Potassium [Moles/Vol] 4.6 mmol/L 3.5 - 5.3 mmol/L [facility] Sodium [Moles/Vol] 136 mmol/L 136 - 145 mmol/L [facility] Urea nitrogen [Mass/Vol] 19 mg/dL 6 - 23 mg/dL [facility] CBC W Auto Differential pane l (Bld)on 01-19-2024 Basophils (Bld) [#/Vol] 0.01 10*3/uL [facility] Basophils/100 WBC (Bld) 0.4 % 0.0 - 2.0 % [facility] Eosinophils (Bld) [#/Vol] 0.00 10*3/uL [facility] Eosinophils/100 WBC (Bld) 0.0 % 0.0 - 6.0 % [facility] Erythrocyte distribution width (RBC) [Ratio] 13.0 % 11.5 - 14.5 % [facility] Hematocrit (Bld) [Volume fraction] 41.4 % 41.0 - 52.0 % [facility] Hemoglobin (Bld) [Mass/Vol] 13.6 g/dL 13.5 - 17.5 g/dL [facility] Immature granulocytes (Bld) [#/Vol] 0.02 10*3/uL [facility] Immature granulocytes/100 WBC (Bld) 0.8 % 0.0 - 0.9 % [facility] Comment on above: Immature Granulocyte Count (IG) includes promyelocytes, myelocytes and metamyelocytes but does not include bands. Percent differential counts (%) should be interpreted in the context of the absolute cell counts (cells/UL). Interpretation and review of laboratory results Abnormal [facility] Lymphocytes (Bld) [#/Vol] 0.49 10*3/uL Low [facility] Lymphocytes/100 WBC (Bld) 18.6 % 13.0 - 44.0 % [facility] MCH (RBC) [Entitic mass] 30.6 pg 26.0 - 34.0 pg [facility] MCHC (RBC) [Mass/Vol] 32.9 g/dL 32.0 - 36.0 g/dL [facility] MCV (RBC) [Entitic vol] 93 fL 80 - 100 fL [facility] Monocytes (Bld) [#/Vol] 0.03 10*3/uL Low [facility] Monocytes/100 WBC (Bld) 1.1 % 2.0 - 10.0 % [facility] Neutrophils (Bld) [#/Vol] 2.08 10*3/uL [facility] Comment on above: Percent differential counts (%) should be interpreted in the context of the absolute cell counts (cells/uL). Neutrophils/100 WBC (Bld) 79.1 % 40.0 - 80.0 % [facility] Nucleated RBC/100 WBC (Bld) [Ratio] 0.0 % [facility] Platelets (Bld) [#/Vol] 123 10*3/uL Low [facility] RBC (Bld) [#/Vol] 4.44 10*6/uL [facility] WBC (Bld) [#/Vol] 2.6 10*3/uL [facility] CMV DNA LÁZARO+probe Qn (P)Orde red By: Dominique Wu on 01-19-2024 CMV DNA LÁZARO+probe (P) [Log units/Vol] [facility] Comment on above: Not calculated Laboratory comment Haroon (Report) Not detected Not Detected [facility] Reportable Range: 35-10,000,000 IU/mL. The yu CMV test is an in vitro nucleic acid amplification test for the quantitation of Cytomegalovirus (CMV) DNA in human EDTA plasma on the yu [facility] EHR0/8800 Systems. The analytical quantification range of this [...] the Molecular Diagnostic Laboratory, Department of Pathology, [facility]. [facility] EBV DNA LÁZARO+probe Qnon 01-18 EBV DNA LÁZARO+probe (Unsp spec) [Log #/Vol] [facility] Work Phone: Comment on above: Not calculated Laboratory comment Haroon (Report) Not detected Not Detected [facility] Work Phone: Reportable Range: 35-100,000,000 IU/mL. The [...] the Molecular Diagnostic Laboratory, Department of Pathology, [facility]. [facility] Work Phone: [facility] Work Phone: Glucose Test strip manual (B ld) [Mass/Vol]on 01-19-2024 Glucose [Mass/Vol] 248 mg/dL High 74 - 99 mg/dL [facility] Interpretation and review of laboratory results Abnormal [facility] Glucose [Mass/Vol] 282 mg/dL High 74 - 99 mg/dL [facility] Interpretation and review of laboratory results Abnormal [facility] Glucose [Mass/Vol] 349 mg/dL High 74 - 99 mg/dL [facility] Interpretation and review of laboratory results Abnormal [facility] Glucose [Mass/Vol] 312 mg/dL High 74 - 99 mg/dL [facility] Interpretation and review of laboratory results Abnormal [facility] Glucose [Mass/Vol] 351 mg/dL High 74 - 99 mg/dL [facility] Interpretation and review of laboratory results Abnormal [facility] Glucose [Mass/Vol] 344 mg/dL High 74 - 99 mg/dL [facility] Interpretation and review of laboratory results Abnormal [facility] Glucose [Mass/Vol] 265 mg/dL High 74 - 99 mg/dL [facility] Interpretation and review of laboratory results Abnormal [facility] HbA1c (Bld) [Mass fraction]o n 01-19-2024 Average glucose Estimated from glycated hemoglobin (Bld) [Mass/Vol] 137 mg/dL Not Established [facility] Interpretation and review of laboratory results Abnormal [facility] Diagnosis of Diabetes-Adults Non-Diabetic: < or = 5.6% Increased risk for developing diabetes: 5.7-6.4% Diagnostic of diabetes: > or = 6.5% Monitoring of Diabetes Age (y)....................... Therapeutic Goal (%) Adults: >18....................... ..<7.0 Pediatrics: 13-18...................<7 .5 Pediatrics: 7-12....................<8 .0 Pediatrics: 0-6..................... 7.5-8.5 [place] [employer]. Diabetes Care 33(S1), Oct 2009 [facility] Hemoglobin A1con 01-19-2024 HbA1c (Bld) [Mass fraction] 6.4 % High see below [facility] Hepatic function 2000 panelo n 01-19-2024 Albumin BCP dye [Mass/Vol] 3.1 g/dL Low 3.4 - 5.0 g/dL [facility] ALP [Catalytic activity/Vol] 271 U/L High 33 - 120 U/L [facility] ALT With P-5'-P [Catalytic activity/Vol] 83 U/L High 10 - 52 U/L [facility] Comment on above: Patients treated wit h Sulfasalazine may generate falsely decreased results for ALT. AST With P-5'-P [Catalytic activity/Vol] 84 U/L High 9 - 39 U/L [facility] Bilirubin [Mass/Vol] 2.3 mg/dL High 0.0 - 1 .2 mg/dL [facility] Bilirubin.direct [Mass/Vol] 1.2 mg/dL High 0.0 - 0.3 mg/dL [facility] Interpretation and review of laboratory results Abnormal [facility] Protein [Mass/Vol] 7.0 g/dL 6.4 - 8.2 g/dL [facility] Magnesiumon 01-19-2024 Magnesium [Mass/Vol] 2.27 mg/dL 1.60 - 2.40 mg/dL [facility] No Panel Informationon 01-18 [facility] Interpretation and review of laboratory results Normal [facility] Interpretation and review of laboratory results Abnormal [facility] PT and aPTT panel Coag (PPP) on 01-19-2024 aPTT Coag (PPP) [Time] 30 s [facility] INR Coag (PPP) [Relative time] 1.2 {INR} High 0.9 - 1.1 [facility] Interpretation and review of laboratory results Abnormal [facility] PT Coag (PPP) [Time] 13.3 s High [facility] The APTT is no longe r used for monitoring Unfractionated Heparin Therapy. For monitoring Heparin Therapy, use the Heparin Assay. [facility] Phosphoruson 01-19-2024 Phosphate [Mass/Vol] 2.5 mg/dL 2.5 - 4 .9 mg/dL [facility] Comment on above: The performance aditi acteristics of phosphorus testing in heparinized plasma have been validated by the individual laboratory site where testing is performed. Testing on heparinized plasma is not approved by the FDA; however, such approval is not necessary. Tacrolimus (Bld) [Mass/Vol]O rdered By: Fracisco Chu on 01-19-2024 Interpretation and review of laboratory results Normal [facility] NOTE: Result was obt ained using a chemiluminescent microparticle immunoassay (CMIA) on the [employer] i system. Optimal therapeutic ranges for immunosuppressant drugs depend upon an individual patient's current clinical state, type of organ transplant, time post-transplant, co-administration of other immunosuppressants, and other clinical factors. The results of this test should be correlated with additional clinical and laboratory data before changes in treatment regimens are made. [facility] Tacrolimus levelOrdered By: Fracisco Chu on 01-19-2024 Tacrolimus (Bld) [Mass/Vol] 8.4 ng/mL NINF - 15.0 ng/mL [facility] Urinalysis complete panel (U )on 01-19-2024 Appearance (U) Clear Clear [facility] Bilirubin (U) [Mass/Vol] Negative NEGATIVE [facility] Color (U) Yellow Light-Yellow , Yellow, Dark-Yellow [facility] Glucose Auto test strip (U) [Mass/Vol] Normal Normal mg/dL [facility] Ketones (U) [Mass/Vol] Negative NEGATIVE mg/dL [facility] Leukocyte esterase Auto test strip Ql (U) 25 Cash/ L Abnormal NEGATIVE [facility] Nitrite Auto test strip Ql (U) Negative NEGATIVE [facility] pH (U) 6.0 [pH] 5.0, 5.5, 6.0, 6.5, 7.0, 7.5, 8.0 [facility] Protein (U) [Mass/Vol] Negative NEGATIVE, 10 (TRACE), 20 (TRACE) mg/dL [facility] RBC (U) [#/Vol] 0.03 (TRACE) Abnormal NEGATIVE [facility] Specific gravity (U) [Rel density] 1.011 1.005 - 1.035 [facility] Urobilinogen (U) [Mass/Vol] 3 (1+) Abnormal Normal mg/dL [facility] Comment on above: Some pigments and me dications may cause a false positive urobilinogen. Urinalysis microscopic panel Auto Ql (U)on 01-19-2024 Calcium oxalate crystals Computer assisted (U) [#/Area] 1+ NONE, 1+ /HPF [facility] Mucus Auto (Urine sed) [#/Area] FEW Reference range not established. /LPF [facility] RBC Auto (Urine sed) [#/Area] 3-5 NONE, 1-2, 3-5 /HPF [facility] WBC Auto (Urine sed) [#/Area] 6-10 Abnormal 1-5, NONE /HPF [facility] CBC W Auto Differential pane l (Bld)on 01-18-2024 Basophils (Bld) [#/Vol] 0.04 10*3/uL [facility] Basophils/100 WBC (Bld) 0.8 % 0.0 - 2.0 % [facility] Eosinophils (Bld) [#/Vol] 0.08 10*3/uL [facility] Eosinophils/100 WBC (Bld) 1.5 % 0.0 - 6.0 % [facility] Erythrocyte distribution width (RBC) [Ratio] 13.2 % 11.5 - 14.5 % [facility] Hematocrit (Bld) [Volume fraction] 34.7 % Low 41.0 - 52.0 % [facility] Hemoglobin (Bld) [Mass/Vol] 11.5 g/dL Low 13.5 - 17.5 g/dL [facility] Immature granulocytes (Bld) [#/Vol] 0.01 10*3/uL [facility] Immature granulocytes/100 WBC (Bld) 0.2 % 0.0 - 0.9 % [facility] Comment on above: Immature Granulocyte Count (IG) includes promyelocytes, myelocytes and metamyelocytes but does not include bands. Percent differential counts (%) should be interpreted in the context of the absolute cell counts (cells/UL). Interpretation and review of laboratory results Abnormal [facility] Lymphocytes (Bld) [#/Vol] 1.62 10*3/uL [facility] Lymphocytes/100 WBC (Bld) 31.3 % 13.0 - 44.0 % [facility] MCH (RBC) [Entitic mass] 31.2 pg 26.0 - 34.0 pg [facility] MCHC (RBC) [Mass/Vol] 33.1 g/dL 32.0 - 36.0 g/dL [facility] MCV (RBC) [Entitic vol] 94 fL 80 - 100 fL [facility] Monocytes (Bld) [#/Vol] 0.38 10*3/uL [facility] Monocytes/100 WBC (Bld) 7.3 % 2.0 - 10.0 % [facility] Neutrophils (Bld) [#/Vol] 3.05 10*3/uL [facility] Comment on above: Percent differential counts (%) should be interpreted in the context of the absolute cell counts (cells/uL). Neutrophils/100 WBC (Bld) 58.9 % 40.0 - 80.0 % [facility] Nucleated RBC/100 WBC (Bld) [Ratio] 0.0 % [facility] Platelets (Bld) [#/Vol] 109 10*3/uL Low [facility] RBC (Bld) [#/Vol] 3.69 10*6/uL Low [facility] WBC (Bld) [#/Vol] 5.2 10*3/uL [facility] Comprehensive metabolic 2000 panelon 01-18-2024 Albumin BCP dye [Mass/Vol] 2.8 g/dL Low 3.4 - 5.0 g/dL [facility] ALP [Catalytic activity/Vol] 233 U/L High 33 - 120 U/L [facility] ALT With P-5'-P [Catalytic activity/Vol] 78 U/L High 10 - 52 U/L [facility] Comment on above: Patients treated wit h Sulfasalazine may generate falsely decreased results for ALT. Anion gap [Moles/Vol] 9 mmol/L Low 10 - 2 0 mmol/L [facility] AST With P-5'-P [Catalytic activity/Vol] 90 U/L High 9 - 39 U/L [facility] Bilirubin [Mass/Vol] 2.0 mg/dL High 0.0 - 1 .2 mg/dL [facility] Calcium [Mass/Vol] 8.8 mg/dL 8.6 - 10. 6 mg/dL [facility] Chloride [Moles/Vol] 102 mmol/L 98 - 10 7 mmol/L [facility] CO2 [Moles/Vol] 32 mmol/L 21 - 32 mmol/L [facility] Creatinine [Mass/Vol] 0.91 mg/dL 0.50 - 1.30 mg/dL [facility] eGFR - PINF [facility] Comment on above: Calculations of zander mated GFR are performed using the 2020 CKD-EPI Study Refit equation without the race variable for the IDMS-Traceable creatinine methods. https://jasn.asnjournals.org/content//ASN.343831 3120 Glucose [Mass/Vol] 179 mg/dL High 74 - 99 mg/dL [facility] Potassium [Moles/Vol] 3.6 mmol/L 3.5 - 5.3 mmol/L [facility] Protein [Mass/Vol] 6.5 g/dL 6.4 - 8.2 g/dL [facility] Sodium [Moles/Vol] 139 mmol/L 136 - 145 mmol/L [facility] Urea nitrogen [Mass/Vol] 19 mg/dL 6 - 23 mg/dL [facility] Magnesiumon 01-18-2024 Magnesium [Mass/Vol] 1.49 mg/dL Low 1.60 - 2.40 mg/dL [facility] No Panel Informationon 01-17 Interpretation and review of laboratory results Abnormal [facility] PT and aPTT panel Coag (PPP) on 01-18-2024 aPTT Coag (PPP) [Time] 30 s [facility] INR Coag (PPP) [Relative time] 1.2 {INR} High 0.9 - 1.1 [facility] Interpretation and review of laboratory results Abnormal [facility] PT Coag (PPP) [Time] 13.7 s High [facility] The APTT is no longe r used for monitoring Unfractionated Heparin Therapy. For monitoring Heparin Therapy, use the Heparin Assay. [facility] Phosphate [Mass/Vol]on 01-17 Interpretation and review of laboratory results Normal [facility] Phosphoruson 01-18-2024 Phosphate [Mass/Vol] 4.2 mg/dL 2.5 - 4 .9 mg/dL [facility] Comment on above: The performance aditi acteristics of phosphorus testing in heparinized plasma have been validated by the individual laboratory site where testing is performed. Testing on heparinized plasma is not approved by the FDA; however, such approval is not necessary. [place] Guidance for biopsy of Ami mattson [...] findings as stated. Performed and dictated at [facility]. MACRO: None. Signed by: Татьяна Eid 01/17/2024 5:06 PM Dictation workstation: [id number] MMODAL Interpreted By: Татьяна Eid and Meyers Emily STUDY: US GUIDED NEEDLE LIVER BIOPSY; 01/17/2024 9:59 am INDICATION: Signs/Symptoms:s/p liver transplant, elevated LFT's, ultrasound changes. previous biopsy not enough tissue.. COMPARISON: Liver ultrasound 01/09/2024 ACCESSION NUMBER(S): [id number] ORDERING CLINICIAN: SHARAN AYOUB TECHNIQUE: INTERVENTIONALIST(S): Dr. [...] to pathology. MMODAL Татьяна Eid MD - 01/17/2024 Interpreted By: Татьяна Eid and Clement Lainez STUDY: US GUIDED NEEDLE LIVER BIOPSY; 01/17/2024 9:59 am INDICATION: Signs/Symptoms:s/p liver transplant, elevated LFT's, ultrasound changes. previous biopsy not enough tissue.. COMPARISON: Liver ultrasound 01/09/2024 ACCESSION NUMBER(S): [id number] ORDERING CLINICIAN: SHARAN AYOUB TECHNIQUE: INTERVENTIONALIST(S): Dr. [...] findings as stated. Performed and dictated at [facility]. MACRO: None. Signed by: Татьяна Eid 01/17/2024 5:06 PM Dictation workstation: [id number] [facility] Work Phone: Radiology Study observation (narrative) [facility] Work Phone: [place] Guidance for biopsy of Li Moisesrdered By: Татьяна Eid on 01-17-2024 [facility] Work Phone: No Panel Informationon 01-08 Doppler [...] Hugo Darnell 01/09/2024 2:11 PM Dictation workstation: [id number]ODAL Interpreted By: Hugo Garcia, STUDY: US LIVER WITH DOPPLER 01/09/2024 12:23 pm INDICATION: 28 y/o M with Signs/Symptoms:s/p liver transplant, elevated LFT's, right side pain. COMPARISON: Previous exam from 01/26/2023. ACCESSION NUMBER(S): [id number] ORDERING CLINICIAN: SHARAN AYOUB TECHNIQUE: Ultrasound of [...] COMPARISON: Previous exam from 01/26/2023. ACCESSION NUMBER(S): [id number] ORDERING CLINICIAN: SHARAN AYOUB TECHNIQUE: Ultrasound of [...] Hugo Darnell 01/09/2024 2:11 PM Dictation workstation: [id number] [facility] Work Phone: Radiology Study observation (narrative) [facility] Work Phone: No Panel InformationOrdered By: Hugo Darnell on 01-09-2024 [facility] Work Phone: Alanine aminotransferase [En zymatic activity/volume] in Serum or PlasmaOrdered By: Sharan Ayoub on 01-04-2024 ALT [Catalytic activity/Vol] 81 U/L 7-52 [facility] Albumin [Mass/volume] in Ser um or Plasma by Bromocresol green (BCG) dye binding methoOrdered By: Sharan Ayoub on 01-04-2024 Albumin BCG dye [Mass/Vol] 3.5 g/dL 3.5-5.7 [facility] Alkaline phosphatase [Enzyma tic activity/volume] in Serum or PlasmaOrdered By: Sharan Ayoub on 01-04-2024 ALP [Catalytic activity/Vol] 242 U/L 34-104 [facility] Anisocytosis LM Ql (Bld)Orde red By: Sharan Ayoub on 01-04-2024 Anisocytosis Ql (Bld) Slight Fir [facility] Aspartate aminotransferase [ Enzymatic activity/volume] in Serum or PlasmaOrdered By: Sharan Ayoub on 01-04-2024 AST [Catalytic activity/Vol] 93 U/L 13-39 [facility] Basophils Auto (Bld) [#/Vol] Ordered By: Sharan Ayoub on 01-04-2024 Basophils (Bld) [#/Vol] 0.0 10*3/uL 0.0-0.2 [facility] Basophils/100 WBC Auto (Bld) Ordered By: Sharan Ayoub on 01-04-2024 Basophils/100 WBC (Bld) 0.8 % . [facility] Bilirubin.direct [Mass/volum e] in Serum or PlasmaOrdered By: Sharan Ayoub on 01-04-2024 Bilirubin.direct [Mass/Vol] 1.40 mg/dL 0.03-0.18 [facility] Bilirubin.total [Mass/volume ] in Serum or PlasmaOrdered By: Sharan Ayoub on 01-04-2024 Bilirubin [Mass/Vol] 2.7 mg/dL 0.3-1.0 [facility] Comment on above: Samples from patient s who have taken Naproxen have shown spurious elevation in Total Bilirubin levels. A metabolite of Naproxen, O-desmethylnaproxen, has been shown to interfere with the Jenlatriciaik-Uriel method for measuring Total Bilirubin. Calcium [Mass/volume] in Ser um or PlasmaOrdered By: Sharan Ayoub on 01-04-2024 Calcium [Mass/Vol] 8.9 mg/dL 8.6-10.3 [facility] Carbon dioxide, total [Moles /volume] in Serum or PlasmaOrdered By: Sharan Ayoub on 01-04-2024 CO2 [Moles/Vol] 30.0 mmol/L 21.0-31.0 [facility] Chloride [Moles/volume] in S kasi or PlasmaOrdered By: Sharan Ayoub on 01-04-2024 Chloride [Moles/Vol] 103 mmol/L 98-107 [facility] Creatinine [Mass/volume] in Serum or PlasmaOrdered By: Sharan Ayoub on 01-04-2024 Creatinine [Mass/Vol] 0.91 mg/dL 0.70-1.30 [facility] Eosinophils Auto (Bld) [#/Vo l]Ordered By: Sharan Ayoub on 01-04-2024 Eosinophils (Bld) [#/Vol] 0.1 10*3/uL 0.0-0.45 [facility] Eosinophils/100 WBC Auto (Bl d)Ordered By: Sharan Ayoub on 01-04-2024 Eosinophils/100 WBC (Bld) 1.1 % . [facility] Erythrocyte distribution wid th Auto (RBC) [Ratio]Ordered By: Sharan Ayoub on 01-04-2024 Erythrocyte distribution width (RBC) [Ratio] 14.3 % 12.0-14.8 [facility] Globulin Calc (S) [Mass/Vol] Ordered By: Sharan Ayoub on 01-04-2024 Globulin (S) [Mass/Vol] 3.4 g/dL [facility] Glucose [Mass/volume] in Ser um or PlasmaOrdered By: Sharan Ayoub on 01-04-2024 Glucose [Mass/Vol] 145 mg/dL 70-100 [facility] Comment on above: ADA recommended refe rence rangeRandom Glucose Reference Range is dependent on time and content of last meal. Glucose of more than 200 mg/dL in a nonstressed, ambulatory subject supports the diagnosis of Diabetes Mellitus. Hematocrit Auto (Bld) [Volum e fraction]Ordered By: Sharan Ayoub on 01-04-2024 Hematocrit (Bld) [Volume fraction] 37.1 % 38.8-50.0 [facility] Hemoglobin [Mass/volume] in BloodOrdered By: Sharan Ayoub on 01-04-2024 Hemoglobin (Bld) [Mass/Vol] 12.5 g/dL 13.0-17.0 [facility] INR in Platelet poor plasma by Coagulation assayOrdered By: Sharan Ayoub on 01-04-2024 INR Coag (PPP) [Relative time] 1.1 {INR} [facility] Comment on above: INR Therapeutic Rang [...] with mechanical heart valves: 3 - 4.5 Leukocytes [#/volume] correc roderick for nucleated erythrocytes in Blood by Automated counOrdered By: Sharan Ayoub on 01-04-2024 WBC corrected for nucl RBC Auto (Bld) [#/Vol] 4.8 10*3/uL 4.1-10.5 [facility] Lymphocytes Auto (Bld) [#/Vo l]Ordered By: Sharan Ayoub on 01-04-2024 Lymphocytes (Bld) [#/Vol] 1.3 10*3/uL 1.00-4.8 [facility] Lymphocytes/100 WBC Auto (Bl d)Ordered By: Sharan Ayoub on 01-04-2024 Lymphocytes/100 WBC (Bld) 27.3 % . [facility] MCH Auto (RBC) [Entitic mass ]Ordered By: Sharan Ayoub on 01-04-2024 MCH (RBC) [Entitic mass] 31.4 pg 27.5-35.2 [facility] MCHC Auto (RBC) [Mass/Vol]Or dered By: Sharan Ayoub on 01-04-2024 MCHC (RBC) [Mass/Vol] 33.6 g/dL 32.5-35.6 [facility] MCV Auto (RBC) [Entitic vol] Ordered By: Sharan Ayoub on 01-04-2024 MCV (RBC) [Entitic vol] 93.4 fL 83.5-101 [facility] Monocytes Auto (Bld) [#/Vol] Ordered By: Sharan Ayoub on 01-04-2024 Monocytes (Bld) [#/Vol] 0.4 10*3/uL 0.0-0.8 [facility] Monocytes/100 WBC Auto (Bld) Ordered By: Sharan Ayoub on 01-04-2024 Monocytes/100 WBC (Bld) 8.0 % . [facility] Neutrophils Auto (Bld) [#/Vo l]Ordered By: Sharan Ayoub on 01-04-2024 Neutrophils (Bld) [#/Vol] 3.0 10*3/uL 1.8-7.7 [facility] Neutrophils/100 WBC Auto (Bl d)Ordered By: Sharan Ayoub on 01-04-2024 Neutrophils/100 WBC (Bld) 62.8 % . [facility] No Panel InformationOrdered By: Sharan Ayoub on 01-04-2024 Cytomegalovirus Detection Sent to ref lab [facility] Estimated GFR (CKD-EPI) > 60.0 mL/Min [facility] Creatinine Clearance (Chem N/A [facility] Nucleated erythrocytes [Pres ence] in Blood by Automated countOrdered By: Sharan Ayoub on 01-04-2024 Nucleated RBC Auto Ql (Bld) 0.1 /100{WBC} 0-0.5 [facility] Platelet adequacy [Presence] in Blood by Light microscopyOrdered By: Sharan Ayoub on 01-04-2024 Platelets LM Ql (Bld) Decreased Normal [facility] Platelet mean volume Auto (B ld) [Entitic vol]Ordered By: Sharan Ayoub on 01-04-2024 Platelet mean volume (Bld) [Entitic vol] 11.2 fL 6.6-10.1 [facility] Platelet morphology finding [Identifier] in BloodOrdered By: Sharan Ayoub on 01-04-2024 Platelet morphology finding Nom (Bld) N/A [facility] Platelets Auto (Bld) [#/Vol] Ordered By: Sharan Ayoub on 01-04-2024 Platelets (Bld) [#/Vol] 116 10*3/uL 150-450 [facility] Platelets Large [Presence] i n Blood by Light microscopyOrdered By: Sharan Ayoub on 01-04-2024 Platelets Large LM Ql (Bld) Slight [facility] Polychromasia [Presence] in Blood by Light microscopyOrdered By: Sharan Ayoub on 01-04-2024 Polychromasia LM Ql (Bld) Slight [facility] Potassium [Moles/volume] in Serum or PlasmaOrdered By: Sharan Ayoub on 01-04-2024 Potassium [Moles/Vol] 3.7 mmol/L 3.5-5.1 [facility] Protein [Mass/volume] in Ser um or PlasmaOrdered By: Sharan Ayoub on 01-04-2024 Protein [Mass/Vol] 6.9 g/dL 6.4-8.9 [facility] Prothrombin time (PT)Ordered By: Sharan Ayoub on 01-04-2024 PT Coag (PPP) [Time] 13.2 s 9.0-12.9 [facility] Comment on above: A hematocrit value g reater than 55% may lead to inaccurate results in coagulation testing. Patients having hematocrit values >55% require a special collection tube for coagulation studies. Please contact the laboratory at [phone] for redraw instructions. RBC Auto (Bld) [#/Vol]Ordere d By: Sharan Ayoub on 01-04-2024 RBC (Bld) [#/Vol] 3.98 10*6/uL 3.90-5.60 [facility] RBC morphologyOrdered By: Kanu Ayoub on 01-04-2024 RBC morphology finding Nom (Bld) N/A [facility] Serum or plasma albumin/glob ulin mass ratioOrdered By: Sharan Ayoub on 01-04-2024 Albumin/Globulin [Mass ratio] 1.0 {ratio} [facility] Serum or plasma anion gap de terminationOrdered By: Sharan Ayoub on 01-04-2024 Anion gap [Moles/Vol] 8.7 mmol/L 6.0-15.0 [facility] Sodium [Moles/volume] in Ser um or PlasmaOrdered By: Sharan Ayoub on 01-04-2024 Sodium [Moles/Vol] 138 mmol/L 136-145 [facility] Tacrolimus [Mass/volume] in BloodOrdered By: Sharan Ayoub on 01-04-2024 Tacrolimus (Bld) [Mass/Vol] Sent to ref lab [facility] Urea nitrogen [Mass/volume] in Serum or PlasmaOrdered By: Sharan Ayoub on 01-04-2024 Urea nitrogen [Mass/Vol] 18 mg/dL 7-25 [facility] WBC Auto (Bld) [#/Vol]Ordere d By: Sharan Ayoub on 01-04-2024 WBC (Bld) [#/Vol] 4.8 10*3/uL 4.1-10.5 [facility] Whole blood quantitative Eps tein-Fair virus (EBV) DNA assay by PCROrdered By: Sharan Ayoub on 01-04-2024 EBV DNA LÁZARO+probe (Bld) [#/Vol] Sent to ref lab [facility] Glucose Test strip manual (B ld) [Mass/Vol]on 12-19-2023 Glucose [Mass/Vol] 112 mg/dL High 74 - 99 mg/dL [facility] Interpretation and review of laboratory results Abnormal [facility] US Guidance for biopsy of Ami [...] This study was performed and interpreted at [facility], [place], [place] MACRO: None. Signed by: Татьяна Eid 12/19/2023 9:02 PM Dictation workstation: [id number] Interpreted By: Татьяна Eid and Barbat Antonio STUDY: US GUIDED NEEDLE LIVER BIOPSY; 12/19/2023 9:47 am INDICATION: Signs/Symptoms:s/p liver transplant with elevated LFT's. Transplant: April 2016. COMPARISON: IR liver biopsy ultrasound 02/04/2023. ACCESSION NUMBER(S): [id number] ORDERING CLINICIAN: SHARAN AYOUB TECHNIQUE: INTERVENTIONALIST(S): MD [...] IR liver biopsy ultrasound 02/04/2023. ACCESSION NUMBER(S): [id number] ORDERING CLINICIAN: SHARAN AYOUB TECHNIQUE: INTERVENTIONALIST(S): MD [...] This study was performed and interpreted at [facility], [place], [place] MACRO: None. Signed by: Татьяна Eid 12/19/2023 9:02 PM Dictation workstation: [id number] [facility] Work Phone: Radiology Study observation (narrative) [facility] Work Phone: [place] Guidance for biopsy of Li verOrdered By: Татьяна Eid on 12-19-2023 [facility] Work Phone: Alanine aminotransferase [En zymatic activity/volume] in Serum or PlasmaOrdered By: Sharan Ayoub on 12-12-2023 ALT [Catalytic activity/Vol] 104 U/L 7-52 [facility] Albumin [Mass/volume] in Ser um or Plasma by Bromocresol green (BCG) dye binding methoOrdered By: Sharan Ayoub on 12-12-2023 Albumin BCG dye [Mass/Vol] 3.5 g/dL 3.5-5.7 [facility] Alkaline phosphatase [Enzyma tic activity/volume] in Serum or PlasmaOrdered By: Sharan Ayoub on 12-12-2023 ALP [Catalytic activity/Vol] 252 U/L 34-104 [facility] Aspartate aminotransferase [ Enzymatic activity/volume] in Serum or PlasmaOrdered By: Sharan Ayoub on 12-12-2023 AST [Catalytic activity/Vol] 117 U/L 13-39 [facility] Basophils Auto (Bld) [#/Vol] Ordered By: Sharan Ayoub on 12-12-2023 Basophils (Bld) [#/Vol] 0.0 10*3/uL 0.0-0.2 [facility] Basophils/100 WBC Auto (Bld) Ordered By: Sharan Ayoub on 12-12-2023 Basophils/100 WBC (Bld) 0.7 % . [facility] Bilirubin.total [Mass/volume ] in Serum or PlasmaOrdered By: Sharan Ayoub on 12-12-2023 Bilirubin [Mass/Vol] 2.9 mg/dL 0.3-1.0 [facility] Comment on above: Samples from patient s who have taken Naproxen have shown spurious elevation in Total Bilirubin levels. A metabolite of Naproxen, O-desmethylnaproxen, has been shown to interfere with the Harlan-Uriel method for measuring Total Bilirubin. Calcium [Mass/volume] in Ser um or PlasmaOrdered By: Sharan Ayoub on 12-12-2023 Calcium [Mass/Vol] 9.0 mg/dL 8.6-10.3 [facility] Carbon dioxide, total [Moles /volume] in Serum or PlasmaOrdered By: Sharan Ayoub on 12-12-2023 CO2 [Moles/Vol] 28.3 mmol/L 21.0-31.0 [facility] Chloride [Moles/volume] in S kasi or PlasmaOrdered By: Sharan Ayoub on 12-12-2023 Chloride [Moles/Vol] 102 mmol/L 98-107 [facility] Creatinine [Mass/volume] in Serum or PlasmaOrdered By: Sharan Ayoub on 12-12-2023 Creatinine [Mass/Vol] 1.01 mg/dL 0.70-1.30 [facility] Eosinophils Auto (Bld) [#/Vo l]Ordered By: Shraan Ayoub on 12-12-2023 Eosinophils (Bld) [#/Vol] 0.1 10*3/uL 0.0-0.45 [facility] Eosinophils/100 WBC Auto (Bl d)Ordered By: Sharan Ayoub on 12-12-2023 Eosinophils/100 WBC (Bld) 0.9 % . [facility] Erythrocyte distribution wid th Auto (RBC) [Ratio]Ordered By: Sharan Ayoub on 12-12-2023 Erythrocyte distribution width (RBC) [Ratio] 13.7 % 12.0-14.8 [facility] Globulin Calc (S) [Mass/Vol] Ordered By: Sharan Ayoub on 12-12-2023 Globulin (S) [Mass/Vol] 3.7 g/dL [facility] Glucose [Mass/volume] in Ser um or PlasmaOrdered By: Sharan Ayoub on 12-12-2023 Glucose [Mass/Vol] 224 mg/dL 70-100 [facility] Comment on above: ADA recommended refe rence rangeRandom Glucose Reference Range is dependent on time and content of last meal. Glucose of more than 200 mg/dL in a nonstressed, ambulatory subject supports the diagnosis of Diabetes Mellitus. Hematocrit Auto (Bld) [Volum e fraction]Ordered By: Sharan Ayoub on 12-12-2023 Hematocrit (Bld) [Volume fraction] 38.5 % 38.8-50.0 [facility] Hemoglobin [Mass/volume] in BloodOrdered By: Sharan Ayoub on 12-12-2023 Hemoglobin (Bld) [Mass/Vol] 12.8 g/dL 13.0-17.0 [facility] INR in Platelet poor plasma by Coagulation assayOrdered By: Sharan Ayoub on 12-12-2023 INR Coag (PPP) [Relative time] 1.2 {INR} [facility] Comment on above: INR Therapeutic Rang [...] with mechanical heart valves: 3 - 4.5 Leukocytes [#/volume] correc roderick for nucleated erythrocytes in Blood by Automated counOrdered By: Sharan Ayoub on 12-12-2023 WBC corrected for nucl RBC Auto (Bld) [#/Vol] 6.1 10*3/uL 4.1-10.5 [facility] Lymphocytes Auto (Bld) [#/Vo l]Ordered By: Sharan Ayoub on 12-12-2023 Lymphocytes (Bld) [#/Vol] 1.5 10*3/uL 1.00-4.8 [facility] Lymphocytes/100 WBC Auto (Bl d)Ordered By: Sharan Ayoub on 12-12-2023 Lymphocytes/100 WBC (Bld) 24.5 % . [facility] MCH Auto (RBC) [Entitic mass ]Ordered By: Sharan Ayoub on 12-12-2023 MCH (RBC) [Entitic mass] 31.3 pg 27.5-35.2 [facility] MCHC Auto (RBC) [Mass/Vol]Or dered By: Sharan Ayoub on 12-12-2023 MCHC (RBC) [Mass/Vol] 33.1 g/dL 32.5-35.6 [facility] MCV Auto (RBC) [Entitic vol] Ordered By: Sharan Ayoub on 12-12-2023 MCV (RBC) [Entitic vol] 94.5 fL 83.5-101 [facility] Monocytes Auto (Bld) [#/Vol] Ordered By: Sharan Ayoub on 12-12-2023 Monocytes (Bld) [#/Vol] 0.4 10*3/uL 0.0-0.8 [facility] Monocytes/100 WBC Auto (Bld) Ordered By: Sharan Ayoub on 12-12-2023 Monocytes/100 WBC (Bld) 6.7 % . [facility] Neutrophils Auto (Bld) [#/Vo l]Ordered By: Sharan Ayoub on 12-12-2023 Neutrophils (Bld) [#/Vol] 4.1 10*3/uL 1.8-7.7 [facility] Neutrophils/100 WBC Auto (Bl d)Ordered By: Sharan Ayoub on 12-12-2023 Neutrophils/100 WBC (Bld) 67.2 % . [facility] No Panel InformationOrdered By: Sharan Ayoub on 12-12-2023 Estimated GFR (CKD-EPI) > 60.0 mL/Min [facility] Creatinine Clearance (Chem N/A [facility] Nucleated erythrocytes [Pres ence] in Blood by Automated countOrdered By: Sharan Ayoub on 12-12-2023 Nucleated RBC Auto Ql (Bld) 0.1 /100{WBC} 0-0.5 [facility] Platelet mean volume Auto (B ld) [Entitic vol]Ordered By: Sharan Ayoub on 12-12-2023 Platelet mean volume (Bld) [Entitic vol] 11.2 fL 6.6-10.1 [facility] Platelets Auto (Bld) [#/Vol] Ordered By: Sharan Ayoub on 12-12-2023 Platelets (Bld) [#/Vol] 133 10*3/uL 150-450 [facility] Potassium [Moles/volume] in Serum or PlasmaOrdered By: Sharan Ayoub on 12-12-2023 Potassium [Moles/Vol] 4.1 mmol/L 3.5-5.1 [facility] Protein [Mass/volume] in Ser um or PlasmaOrdered By: Sharan Ayoub on 12-12-2023 Protein [Mass/Vol] 7.2 g/dL 6.4-8.9 [facility] Prothrombin time (PT)Ordered By: Sharan Ayoub on 12-12-2023 PT Coag (PPP) [Time] 13.4 s 9.0-12.9 [facility] Comment on above: A hematocrit value g reater than 55% may lead to inaccurate results in coagulation testing. Patients having hematocrit values >55% require a special collection tube for coagulation studies. Please contact the laboratory at [phone] for redraw instructions. RBC Auto (Bld) [#/Vol]Ordere d By: Sharan Ayoub on 12-12-2023 RBC (Bld) [#/Vol] 4.08 10*6/uL 3.90-5.60 [facility] Serum or plasma albumin/glob ulin mass ratioOrdered By: Sharan Ayoub on 12-12-2023 Albumin/Globulin [Mass ratio] 0.9 {ratio} [facility] Serum or plasma anion gap de terminationOrdered By: Sharan Ayoub on 12-12-2023 Anion gap [Moles/Vol] 11.8 mmol/L 6.0-15.[address] [facility] Sodium [Moles/volume] in Ser um or PlasmaOrdered By: Sharan Ayoub on 12-12-2023 Sodium [Moles/Vol] 138 mmol/L 136-145 [facility] Tacrolimus [Mass/volume] in BloodOrdered By: Sharan Ayoub on 12-12-2023 Tacrolimus (Bld) [Mass/Vol] Sent to ref lab [facility] Urea nitrogen [Mass/volume] in Serum or PlasmaOrdered By: Sharan Ayoub on 12-12-2023 Urea nitrogen [Mass/Vol] 18 mg/dL 7-25 [facility] WBC Auto (Bld) [#/Vol]Ordere d By: Sharan Ayoub on 12-12-2023 WBC (Bld) [#/Vol] 6.1 10*3/uL 4.1-10.5 [facility] Alanine aminotransferase [En zymatic activity/volume] in Serum or PlasmaOrdered By: Sharan Ayoub on 12-04-2023 ALT [Catalytic activity/Vol] 91 U/L 7-52 [facility] Albumin [Mass/volume] in Ser um or Plasma by Bromocresol green (BCG) dye binding methoOrdered By: Sharan Ayoub on 12-04-2023 Albumin BCG dye [Mass/Vol] 3.2 g/dL 3.5-5.7 [facility] Alkaline phosphatase [Enzyma tic activity/volume] in Serum or PlasmaOrdered By: Sharan Ayoub on 12-04-2023 ALP [Catalytic activity/Vol] 244 U/L 34-104 [facility] Anisocytosis LM Ql (Bld)Orde red By: Sharan Ayoub on 12-04-2023 Anisocytosis Ql (Bld) Slight [facility] Aspartate aminotransferase [ Enzymatic activity/volume] in Serum or PlasmaOrdered By: Sharan Ayoub on 12-04-2023 AST [Catalytic activity/Vol] 116 U/L 13-39 [facility] Basophils Auto (Bld) [#/Vol] Ordered By: Sharan Ayoub on 12-04-2023 Basophils (Bld) [#/Vol] 0.0 10*3/uL 0.0-0.2 [facility] Basophils/100 WBC Auto (Bld) Ordered By: Sharan Ayoub on 12-04-2023 Basophils/100 WBC (Bld) 0.4 % . [facility] Bilirubin.total [Mass/volume ] in Serum or PlasmaOrdered By: Sharan Ayoub on 12-04-2023 Bilirubin [Mass/Vol] 2.5 mg/dL 0.3-1.0 [facility] Comment on above: Samples from patient s who have taken Naproxen have shown spurious elevation in Total Bilirubin levels. A metabolite of Naproxen, O-desmethylnaproxen, has been shown to interfere with the [place]-Uriel method for measuring Total Bilirubin. Calcium [Mass/volume] in Ser um or PlasmaOrdered By: Sharan Ayoub on 12-04-2023 Calcium [Mass/Vol] 8.8 mg/dL 8.6-10.3 [facility] Carbon dioxide, total [Moles /volume] in Serum or PlasmaOrdered By: Sharan Ayoub on 12-04-2023 CO2 [Moles/Vol] 31.9 mmol/L 21.0-31.0 [facility] Chloride [Moles/volume] in S kasi or PlasmaOrdered By: Sharan Ayoub on 12-04-2023 Chloride [Moles/Vol] 107 mmol/L 98-107 [facility] Creatinine [Mass/volume] in Serum or PlasmaOrdered By: Sharan Ayoub on 12-04-2023 Creatinine [Mass/Vol] 1.00 mg/dL 0.70-1.30 [facility] Eosinophils Auto (Bld) [#/Vo l]Ordered By: Sharan Ayoub on 12-04-2023 Eosinophils (Bld) [#/Vol] 0.2 10*3/uL 0.0-0.45 [facility] Eosinophils/100 WBC Auto (Bl d)Ordered By: Sharan Ayoub on 12-04-2023 Eosinophils/100 WBC (Bld) 3.6 % . [facility] Erythrocyte distribution wid th Auto (RBC) [Ratio]Ordered By: Sharan Ayoub on 12-04-2023 Erythrocyte distribution width (RBC) [Ratio] 14.3 % 12.0-14.8 [facility] Globulin Calc (S) [Mass/Vol] Ordered By: Sharan Ayoub on 12-04-2023 Globulin (S) [Mass/Vol] 3.7 g/dL [facility] Glucose [Mass/volume] in Ser um or PlasmaOrdered By: Sharan Ayoub on 12-04-2023 Glucose [Mass/Vol] 95 mg/dL 70-100 [facility] Comment on above: ADA recommended refe rence rangeRandom Glucose Reference Range is dependent on time and content of last meal. Glucose of more than 200 mg/dL in a nonstressed, ambulatory subject supports the diagnosis of Diabetes Mellitus. Hematocrit Auto (Bld) [Volum e fraction]Ordered By: Sharan Ayoub on 12-04-2023 Hematocrit (Bld) [Volume fraction] 39.3 % 38.8-50.0 [facility] Hemoglobin [Mass/volume] in BloodOrdered By: Sharan Ayoub on 12-04-2023 Hemoglobin (Bld) [Mass/Vol] 13.2 g/dL 13.0-17.0 [facility] Leukocytes [#/volume] correc roderick for nucleated erythrocytes in Blood by Automated counOrdered By: Sharan Ayoub on 12-04-2023 WBC corrected for nucl RBC Auto (Bld) [#/Vol] 4.3 10*3/uL 4.1-10.5 [facility] Lymphocytes Auto (Bld) [#/Vo l]Ordered By: Sharan Ayoub on 12-04-2023 Lymphocytes (Bld) [#/Vol] 1.8 10*3/uL 1.00-4.8 [facility] Lymphocytes/100 WBC Auto (Bl d)Ordered By: Sharan Ayoub on 12-04-2023 Lymphocytes/100 WBC (Bld) 42.5 % . [facility] MCH Auto (RBC) [Entitic mass ]Ordered By: Sharan Ayoub on 12-04-2023 MCH (RBC) [Entitic mass] 31.7 pg 27.5-35.2 [facility] MCHC Auto (RBC) [Mass/Vol]Or dered By: Sharan Ayoub on 12-04-2023 MCHC (RBC) [Mass/Vol] 33.6 g/dL 32.5-35.6 [facility] MCV Auto (RBC) [Entitic vol] Ordered By: Sharan Ayoub on 12-04-2023 MCV (RBC) [Entitic vol] 94.2 fL 83.5-101 [facility] Monocytes Auto (Bld) [#/Vol] Ordered By: Sharan Ayoub on 12-04-2023 Monocytes (Bld) [#/Vol] 0.4 10*3/uL 0.0-0.8 [facility] Monocytes/100 WBC Auto (Bld) Ordered By: Sharan Ayoub on 12-04-2023 Monocytes/100 WBC (Bld) 9.2 % . [facility] Neutrophils Auto (Bld) [#/Vo l]Ordered By: Sharan Ayoub on 12-04-2023 Neutrophils (Bld) [#/Vol] 1.9 10*3/uL 1.8-7.7 [facility] Neutrophils/100 WBC Auto (Bl d)Ordered By: Sharan Ayoub on 12-04-2023 Neutrophils/100 WBC (Bld) 44.3 % . [facility] No Panel InformationOrdered By: Sharan Ayoub on 12-04-2023 Estimated GFR (CKD-EPI) > 60.0 mL/Min [facility] Creatinine Clearance (Chem N/A [facility] Nucleated erythrocytes [Pres ence] in Blood by Automated countOrdered By: Sharan Ayoub on 12-04-2023 Nucleated RBC Auto Ql (Bld) 0.2 /100{WBC} 0-0.5 [facility] Platelet adequacy [Presence] in Blood by Light microscopyOrdered By: Sharan Ayoub on 12-04-2023 Platelets LM Ql (Bld) Decreased Normal [facility] Platelet mean volume Auto (B ld) [Entitic vol]Ordered By: Sharan Ayoub on 12-04-2023 Platelet mean volume (Bld) [Entitic vol] 12.0 fL 6.6-10.1 [facility] Platelet morphology finding [Identifier] in BloodOrdered By: Sharan Ayoub on 12-04-2023 Platelet morphology finding Nom (Bld) N/A [facility] Platelets Auto (Bld) [#/Vol] Ordered By: Sharan Ayoub on 12-04-2023 Platelets (Bld) [#/Vol] 107 10*3/uL 150-450 [facility] Platelets Large [Presence] i n Blood by Light microscopyOrdered By: Sharan Ayoub on 12-04-2023 Platelets Large LM Ql (Bld) Slight [facility] Potassium [Moles/volume] in Serum or PlasmaOrdered By: Sharan Ayoub on 12-04-2023 Potassium [Moles/Vol] 4.1 mmol/L 3.5-5.1 [facility] Protein [Mass/volume] in Ser um or PlasmaOrdered By: Sharan Ayoub on 12-04-2023 Protein [Mass/Vol] 6.9 g/dL 6.4-8.9 [facility] RBC Auto (Bld) [#/Vol]Ordere d By: Sharan Ayoub on 12-04-2023 RBC (Bld) [#/Vol] 4.18 10*6/uL 3.90-5.60 [facility] RBC morphologyOrdered By: Kanu Ayoub on 12-04-2023 RBC morphology finding Nom (Bld) Normal Normal [facility] Serum or plasma albumin/glob ulin mass ratioOrdered By: Sharan Ayoub on 12-04-2023 Albumin/Globulin [Mass ratio] 0.9 {ratio} [facility] Serum or plasma anion gap de terminationOrdered By: Sharan Ayoub on 12-04-2023 Anion gap [Moles/Vol] 6.2 mmol/L 6.0-15.0 [facility] Sodium [Moles/volume] in Ser um or PlasmaOrdered By: Sharan Ayoub on 12-04-2023 Sodium [Moles/Vol] 141 mmol/L 136-145 [facility] Tacrolimus [Mass/volume] in BloodOrdered By: Sharan Ayoub on 12-04-2023 Tacrolimus (Bld) [Mass/Vol] Sent to ref lab [facility] Urea nitrogen [Mass/volume] in Serum or PlasmaOrdered By: Sharan Ayoub on 12-04-2023 Urea nitrogen [Mass/Vol] 17 mg/dL 7-25 [facility] WBC Auto (Bld) [#/Vol]Ordere d By: Sharan Ayoub on 12-04-2023 WBC (Bld) [#/Vol] 4.3 10*3/uL 4.1-10.5 [facility] TacrolimusOrdered By: Staci Yates on 10-27-2023 Tacrolimus (Bld) [Mass/Vol] 12.0 ng/mL NINF - 15.0 ng/mL [facility] Tacrolimus (Bld) [Mass/Vol]O rdered By: Adrian Yates on 10-27-2023 Interpretation and review of laboratory results Normal [facility] NOTE: Result was obt ained using a chemiluminescent microparticle immunoassay (CMIA) on the [employer] system. Optimal therapeutic ranges for immunosuppressant drugs depend upon an individual patient's current clinical state, type of organ transplant, time post-transplant, co-administration of other immunosuppressants, and other clinical factors. The results of this test should be correlated with additional clinical and laboratory data before changes in treatment regimens are made. [facility] Alanine aminotransferase [En zymatic activity/volume] in Serum or PlasmaOrdered By: Sharan Ayoub on 10-26-2023 ALT [Catalytic activity/Vol] 93 U/L [facility] Albumin [Mass/volume] in Ser um or Plasma by Bromocresol green (BCG) dye binding methoOrdered By: Sharan Ayoub on 10-26-2023 Albumin BCG dye [Mass/Vol] 3.7 g/dL 3.5-5.7 [facility] Alkaline phosphatase [Enzyma tic activity/volume] in Serum or PlasmaOrdered By: Sharan Ayoub on 10-26-2023 ALP [Catalytic activity/Vol] 235 U/L 34-104 [facility] Aspartate aminotransferase [ Enzymatic activity/volume] in Serum or PlasmaOrdered By: Sharan Ayoub on 10-26-2023 AST [Catalytic activity/Vol] 83 U/L 13-39 [facility] Band form neutrophils/100 WB C Manual cnt (Bld)Ordered By: Sharan Ayoub on 10-26-2023 Band form neutrophils/100 WBC (Bld) 2 % 0-5 [facility] Basophils Auto (Bld) [#/Vol] Ordered By: Sharan Ayoub on 10-26-2023 Basophils (Bld) [#/Vol] N/A [facility] Basophils/100 WBC Auto (Bld) Ordered By: Sharan Ayoub on 10-26-2023 Basophils/100 WBC (Bld) N/A [facility] Bilirubin.total [Mass/volume ] in Serum or PlasmaOrdered By: Sharan Ayoub on 10-26-2023 Bilirubin [Mass/Vol] 2.0 mg/dL 0.3-1.0 [facility] Comment on above: Samples from patient s who have taken Naproxen have shown spurious elevation in Total Bilirubin levels. A metabolite of Naproxen, O-desmethylnaproxen, has been shown to interfere with the Harlan-Uriel method for measuring Total Bilirubin. Calcium [Mass/volume] in Ser um or PlasmaOrdered By: Sharan Ayoub on 10-26-2023 Calcium [Mass/Vol] 9.3 mg/dL 8.6-10.3 [facility] Carbon dioxide, total [Moles /volume] in Serum or PlasmaOrdered By: Sharan Ayoub on 10-26-2023 CO2 [Moles/Vol] 31.5 mmol/L 21.0-31.0 [facility] Chloride [Moles/volume] in S kasi or PlasmaOrdered By: Sharan Ayoub on 10-26-2023 Chloride [Moles/Vol] 99 mmol/L 98-107 [facility] Creatinine [Mass/volume] in Serum or PlasmaOrdered By: Sharan Ayoub on 10-26-2023 Creatinine [Mass/Vol] 1.09 mg/dL 0.70-1.30 [facility] Eosinophils Auto (Bld) [#/Vo l]Ordered By: Sharan Ayoub on 10-26-2023 Eosinophils (Bld) [#/Vol] N/A [facility] Eosinophils/100 WBC Auto (Bl d)Ordered By: Sharan Ayoub on 10-26-2023 Eosinophils/100 WBC (Bld) N/A [facility] Erythrocyte distribution wid th Auto (RBC) [Ratio]Ordered By: Sharan Ayoub on 10-26-2023 Erythrocyte distribution width (RBC) [Ratio] 14.1 % 12.0-14.8 [facility] Giant platelets/100 leukocyt es [Ratio] in Blood by Manual countOrdered By: Sharan Ayoub on 10-26-2023 Giant platelets/100 WBC Manual cnt (Bld) [Ratio] 2 /100{WBC} [facility] Globulin Calc (S) [Mass/Vol] Ordered By: Sharan Ayoub on 10-26-2023 Globulin (S) [Mass/Vol] 3.8 g/dL [facility] Glucose [Mass/volume] in Ser um or PlasmaOrdered By: Sharan Ayoub on 10-26-2023 Glucose [Mass/Vol] 307 mg/dL 70-100 [facility] Comment on above: ADA recommended refe rence rangeRandom Glucose Reference Range is dependent on time and content of last meal. Glucose of more than 200 mg/dL in a nonstressed, ambulatory subject supports the diagnosis of Diabetes Mellitus. Hematocrit Auto (Bld) [Volum e fraction]Ordered By: Sharan Ayoub on 10-26-2023 Hematocrit (Bld) [Volume fraction] 39.7 % 38.8-50.0 [facility] Hemoglobin [Mass/volume] in BloodOrdered By: Sharan Ayoub on 10-26-2023 Hemoglobin (Bld) [Mass/Vol] 13.4 g/dL 13.0-17.0 [facility] Leukocytes [#/volume] correc roderick for nucleated erythrocytes in Blood by Automated counOrdered By: Sharan Ayoub on 10-26-2023 WBC corrected for nucl RBC Auto (Bld) [#/Vol] 6.6 10*3/uL 4.1-10.5 [facility] Lymphocytes Auto (Bld) [#/Vo l]Ordered By: Sharan Ayoub on 10-26-2023 Lymphocytes (Bld) [#/Vol] N/A [facility] Lymphocytes/100 WBC Auto (Bl d)Ordered By: Sharan Ayoub on 10-26-2023 Lymphocytes/100 WBC (Bld) N/A [facility] Lymphocytes/100 WBC Manual c nt (Bld)Ordered By: Sharan Ayoub on 10-26-2023 Lymphocytes/100 WBC (Bld) 10 % 18-42 [facility] MCH Auto (RBC) [Entitic mass ]Ordered By: Sharan Ayoub on 10-26-2023 MCH (RBC) [Entitic mass] 31.7 pg 27.5-35.2 [facility] MCHC Auto (RBC) [Mass/Vol]Or dered By: Sharan Ayoub on 10-26-2023 MCHC (RBC) [Mass/Vol] 33.8 g/dL 32.5-35.6 [facility] MCV Auto (RBC) [Entitic vol] Ordered By: Sharan Ayoub on 10-26-2023 MCV (RBC) [Entitic vol] 93.7 fL 83.5-101 [facility] Monocytes Auto (Bld) [#/Vol] Ordered By: Sharan Ayoub on 10-26-2023 Monocytes (Bld) [#/Vol] N/A [facility] Monocytes/100 WBC Auto (Bld) Ordered By: Sharan Ayoub on 10-26-2023 Monocytes/100 WBC (Bld) N/A [facility] Monocytes/100 WBC Manual cnt (Bld)Ordered By: Sharan Ayoub on 10-26-2023 Monocytes/100 WBC (Bld) 9 % 2-11 [facility] Neutrophils Auto (Bld) [#/Vo l]Ordered By: Sharan Ayoub on 10-26-2023 Neutrophils (Bld) [#/Vol] N/A [facility] Neutrophils/100 WBC Auto (Bl d)Ordered By: Sharan Ayoub on 10-26-2023 Neutrophils/100 WBC (Bld) N/A [facility] No Panel InformationOrdered By: Sharan Ayoub on 10-26-2023 Estimated GFR (CKD-EPI) > 60.0 mL/Min [facility] Creatinine Clearance (Chem N/A [facility] Nucleated erythrocytes [Pres ence] in Blood by Automated countOrdered By: Sharan Ayoub on 10-26-2023 Nucleated RBC Auto Ql (Bld) N/A [facility] Platelet adequacy [Presence] in Blood by Light microscopyOrdered By: Sharan Ayoub on 10-26-2023 Platelets LM Ql (Bld) Decreased Normal [facility] Platelet mean volume Auto (B ld) [Entitic vol]Ordered By: Sharan Ayoub on 10-26-2023 Platelet mean volume (Bld) [Entitic vol] 10.7 fL 6.6-10.1 [facility] Platelet morphology finding [Identifier] in BloodOrdered By: Sharan Ayoub on 10-26-2023 Platelet morphology finding Nom (Bld) Normal Normal [facility] Platelets Auto (Bld) [#/Vol] Ordered By: Sharan Ayoub on 10-26-2023 Platelets (Bld) [#/Vol] 127 10*3/uL 150-450 [facility] Potassium [Moles/volume] in Serum or PlasmaOrdered By: Sharan Ayoub on 10-26-2023 Potassium [Moles/Vol] 4.1 mmol/L 3.5-5.1 [facility] Protein [Mass/volume] in Ser um or PlasmaOrdered By: Sharan Ayoub on 10-26-2023 Protein [Mass/Vol] 7.5 g/dL 6.4-8.9 [facility] RBC Auto (Bld) [#/Vol]Ordere d By: Sharan Ayoub on 10-26-2023 RBC (Bld) [#/Vol] 4.24 10*6/uL 3.90-5.60 [facility] RBC morphologyOrdered By: Kanu Ayoub on 10-26-2023 RBC morphology finding Nom (Bld) Normal Normal [facility] Segmented neutrophils/100 WB C Manual cnt (Bld)Ordered By: Sharan Ayoub on 10-26-2023 Segmented neutrophils/100 WBC (Bld) 78 % 50-70 [facility] Serum or plasma albumin/glob ulin mass ratioOrdered By: Sharan Ayoub on 10-26-2023 Albumin/Globulin [Mass ratio] 1.0 {ratio} [facility] Serum or plasma anion gap de terminationOrdered By: Sharan Ayoub on 10-26-2023 Anion gap [Moles/Vol] 9.6 mmol/L 6.0-15.0 [facility] Sodium [Moles/volume] in Ser um or PlasmaOrdered By: Sharan Ayoub on 10-26-2023 Sodium [Moles/Vol] 136 mmol/L 136-145 [facility] Tacrolimus [Mass/volume] in BloodOrdered By: Sharan Ayoub on 10-26-2023 Tacrolimus (Bld) [Mass/Vol] Sent to ref lab [facility] Urea nitrogen [Mass/volume] in Serum or PlasmaOrdered By: Sharan Ayoub on 10-26-2023 Urea nitrogen [Mass/Vol] 16 mg/dL 725 [facility] WBC Auto (Bld) [#/Vol]Ordere d By: Sharan Ayoub on 10-26-2023 WBC (Bld) [#/Vol] 6.6 10*3/uL 4.1-10.5 [facility] Alanine aminotransferase [En zymatic activity/volume] in Serum or PlasmaOrdered By: Sharan Ayoub on 10-03-2023 ALT [Catalytic activity/Vol] 77 U/L 7-52 [facility] Albumin [Mass/volume] in Ser um or Plasma by Bromocresol green (BCG) dye binding methoOrdered By: Sharan Ayoub on 10-03-2023 Albumin BCG dye [Mass/Vol] 3.4 g/dL 3.5-5.7 [facility] Alkaline phosphatase [Enzyma tic activity/volume] in Serum or PlasmaOrdered By: Sharan Ayoub on 10-03-2023 ALP [Catalytic activity/Vol] 184 U/L 34-104 [facility] Aspartate aminotransferase [ Enzymatic activity/volume] in Serum or PlasmaOrdered By: Sharan Ayoub on 10-03-2023 AST [Catalytic activity/Vol] 74 U/L 13-39 [facility] Basophils Auto (Bld) [#/Vol] Ordered By: Sharan Ayoub on 10-03-2023 Basophils (Bld) [#/Vol] 0.0 10*3/uL 0.0-0.2 [facility] Basophils/100 WBC Auto (Bld) Ordered By: Sharan Ayoub on 10-03-2023 Basophils/100 WBC (Bld) 0.9 % . [facility] Bilirubin.total [Mass/volume ] in Serum or PlasmaOrdered By: Sharan Ayoub on 10-03-2023 Bilirubin [Mass/Vol] 2.0 mg/dL 0.3-1.0 [facility] Comment on above: Samples from patient s who have taken Naproxen have shown spurious elevation in Total Bilirubin levels. A metabolite of Naproxen, O-desmethylnaproxen, has been shown to interfere with the Harlan-Uriel method for measuring Total Bilirubin. Calcium [Mass/volume] in Ser um or PlasmaOrdered By: Sharan Ayoub on 10-03-2023 Calcium [Mass/Vol] 9.2 mg/dL 8.6-10.3 [facility] Carbon dioxide, total [Moles /volume] in Serum or PlasmaOrdered By: Sharan Ayoub on 10-03-2023 CO2 [Moles/Vol] 33.5 mmol/L 21.0-31.0 [facility] Chloride [Moles/volume] in S kasi or PlasmaOrdered By: Sharan Ayoub on 10-03-2023 Chloride [Moles/Vol] 101 mmol/L 98-107 [facility] Creatinine [Mass/volume] in Serum or PlasmaOrdered By: Sharan Ayoub on 10-03-2023 Creatinine [Mass/Vol] 1.05 mg/dL 0.70-1.30 [facility] Eosinophils Auto (Bld) [#/Vo l]Ordered By: Sharan Ayoub on 10-03-2023 Eosinophils (Bld) [#/Vol] 0.1 10*3/uL 0.0-0.45 [facility] Eosinophils/100 WBC Auto (Bl d)Ordered By: Sharan Ayoub on 10-03-2023 Eosinophils/100 WBC (Bld) 2.1 % . [facility] Isaac Fair virus DNA [#/vo lume] (viral load) in Serum or Plasma by LÁZARO with probe dOrdered By: Leighton Reilly on 10-03-2023 EBV DNA LÁZARO+probe [#/Vol] Negative Negative [facility] Comment on above: No EBV DNA detected. The linear range of this assay is 35 - 100,000,000 IU/mLPerformed at: [facility] [place], [place] [id number] Director: Thierry Currie MD, Phone: [phone] Erythrocyte distribution wid th Auto (RBC) [Ratio]Ordered By: Sharan Ayoub on 10-03-2023 Erythrocyte distribution width (RBC) [Ratio] 13.9 % 12.0-14.8 [facility] Globulin Calc (S) [Mass/Vol] Ordered By: Sharan Ayoub on 10-03-2023 Globulin (S) [Mass/Vol] 3.5 g/dL [facility] Glucose [Mass/volume] in Ser um or PlasmaOrdered By: Sharan Ayoub on 10-03-2023 Glucose [Mass/Vol] 301 mg/dL 70-100 [facility] Comment on above: ADA recommended refe rence rangeRandom Glucose Reference Range is dependent on time and content of last meal. Glucose of more than 200 mg/dL in a nonstressed, ambulatory subject supports the diagnosis of Diabetes Mellitus. Hematocrit Auto (Bld) [Volum e fraction]Ordered By: Sharan Ayoub on 10-03-2023 Hematocrit (Bld) [Volume fraction] 39.9 % 38.8-50.0 [facility] Hemoglobin [Mass/volume] in BloodOrdered By: Sharan Ayoub on 10-03-2023 Hemoglobin (Bld) [Mass/Vol] 13.3 g/dL 13.0-17.0 [facility] Leukocytes [#/volume] correc roderick for nucleated erythrocytes in Blood by Automated counOrdered By: Sharan Ayoub on 10-03-2023 WBC corrected for nucl RBC Auto (Bld) [#/Vol] 4.9 10*3/uL 4.1-10.5 [facility] Lymphocytes Auto (Bld) [#/Vo l]Ordered By: Sharan Ayoub on 10-03-2023 Lymphocytes (Bld) [#/Vol] 1.5 10*3/uL 1.00-4.8 [facility] Lymphocytes/100 WBC Auto (Bl d)Ordered By: Sharan Ayoub on 10-03-2023 Lymphocytes/100 WBC (Bld) 30.7 % . [facility] MCH Auto (RBC) [Entitic mass ]Ordered By: Sharan Ayoub on 10-03-2023 MCH (RBC) [Entitic mass] 31.6 pg 27.5-35.2 [facility] MCHC Auto (RBC) [Mass/Vol]Or dered By: Sharan Ayoub on 10-03-2023 MCHC (RBC) [Mass/Vol] 33.4 g/dL 32.5-35.6 [facility] MCV Auto (RBC) [Entitic vol] Ordered By: Sharan Ayoub on 10-03-2023 MCV (RBC) [Entitic vol] 94.7 fL 83.5-101 [facility] Monocytes Auto (Bld) [#/Vol] Ordered By: Sharan Ayoub on 10-03-2023 Monocytes (Bld) [#/Vol] 0.5 10*3/uL 0.0-0.8 [facility] Monocytes/100 WBC Auto (Bld) Ordered By: Sharan Ayoub on 10-03-2023 Monocytes/100 WBC (Bld) 9.3 % . [facility] Neutrophils Auto (Bld) [#/Vo l]Ordered By: Sharan Ayoub on 10-03-2023 Neutrophils (Bld) [#/Vol] 2.8 10*3/uL 1.8-7.7 [facility] Neutrophils/100 WBC Auto (Bl d)Ordered By: Sharan Ayoub on 10-03-2023 Neutrophils/100 WBC (Bld) 57.0 % . [facility] No Panel InformationOrdered By: Leighton Reilly on 10-03-2023 Isaac-Fair Quant PCR Plasma log10 N/A [facility] No Panel InformationOrdered By: Sharan Ayoub on 10-03-2023 Estimated GFR (CKD-EPI) > 60.0 mL/Min [facility] Creatinine Clearance (Chem N/A [facility] Nucleated erythrocytes [Pres ence] in Blood by Automated countOrdered By: Sharan Ayoub on 10-03-2023 Nucleated RBC Auto Ql (Bld) 0.1 /100{WBC} 0-0.5 [facility] Platelet mean volume Auto (B ld) [Entitic vol]Ordered By: Sharan Ayoub on 10-03-2023 Platelet mean volume (Bld) [Entitic vol] 11.5 fL 6.6-10.1 [facility] Platelets Auto (Bld) [#/Vol] Ordered By: Sharan Ayoub on 10-03-2023 Platelets (Bld) [#/Vol] 122 10*3/uL 150-450 [facility] Potassium [Moles/volume] in Serum or PlasmaOrdered By: Sharan Ayoub on 10-03-2023 Potassium [Moles/Vol] 4.1 mmol/L 3.5-5.1 [facility] Protein [Mass/volume] in Ser um or PlasmaOrdered By: Sharan Ayoub on 10-03-2023 Protein [Mass/Vol] 6.9 g/dL 6.4-8.9 [facility] RBC Auto (Bld) [#/Vol]Ordere d By: Sharan Ayoub on 10-03-2023 RBC (Bld) [#/Vol] 4.21 10*6/uL 3.90-5.60 [facility] Serum or plasma albumin/glob ulin mass ratioOrdered By: Sharan Ayoub on 10-03-2023 Albumin/Globulin [Mass ratio] 1.0 {ratio} [facility] Serum or plasma anion gap de terminationOrdered By: Sharan Ayoub on 10-03-2023 Anion gap [Moles/Vol] 8.6 mmol/L 6.0-15.0 [facility] Sodium [Moles/volume] in Ser um or PlasmaOrdered By: Sharan Ayoub on 10-03-2023 Sodium [Moles/Vol] 139 mmol/L 136-145 [facility] Tacrolimus [Mass/volume] in BloodOrdered By: Sharan Ayoub on 10-03-2023 Tacrolimus (Bld) [Mass/Vol] Sent to ref lab [facility] Urea nitrogen [Mass/volume] in Serum or PlasmaOrdered By: Sharan Ayoub on 10-03-2023 Urea nitrogen [Mass/Vol] 17 mg/dL 7-25 [facility] WBC Auto (Bld) [#/Vol]Ordere d By: Sharan Ayoub on 10-03-2023 WBC (Bld) [#/Vol] 4.9 10*3/uL 4.1-10.5 [facility] Alanine aminotransferase [En zymatic activity/volume] in Serum or PlasmaOrdered By: Sharan Ayoub on 09-05-2023 ALT [Catalytic activity/Vol] 60 U/L 7-52 [facility] Albumin [Mass/volume] in Ser um or Plasma by Bromocresol green (BCG) dye binding methoOrdered By: Sharan Ayoub on 09-05-2023 Albumin BCG dye [Mass/Vol] 3.6 g/dL 3.5-5.7 [facility] Alkaline phosphatase [Enzyma tic activity/volume] in Serum or PlasmaOrdered By: Sharan Ayoub on 09-05-2023 ALP [Catalytic activity/Vol] 172 U/L 34-104 [facility] Aspartate aminotransferase [ Enzymatic activity/volume] in Serum or PlasmaOrdered By: Sharan Ayoub on 09-05-2023 AST [Catalytic activity/Vol] 59 U/L 13-39 [facility] Basophils Auto (Bld) [#/Vol] Ordered By: Sharan Ayoub on 09-05-2023 Basophils (Bld) [#/Vol] 0.1 10*3/uL 0.0-0.2 [facility] Basophils/100 WBC Auto (Bld) Ordered By: Sharan Ayoub on 09-05-2023 Basophils/100 WBC (Bld) 1.1 % . [facility] Bilirubin.total [Mass/volume ] in Serum or PlasmaOrdered By: Sharan Ayoub on 09-05-2023 Bilirubin [Mass/Vol] 1.4 mg/dL 0.3-1.0 [facility] Comment on above: Samples from patient s who have taken Naproxen have shown spurious elevation in Total Bilirubin levels. A metabolite of Naproxen, O-desmethylnaproxen, has been shown to interfere with the Harlan-Uriel method for measuring Total Bilirubin. Calcium [Mass/volume] in Ser um or PlasmaOrdered By: Sharan Ayoub on 09-05-2023 Calcium [Mass/Vol] 9.2 mg/dL 8.6-10.3 [facility] Carbon dioxide, total [Moles /volume] in Serum or PlasmaOrdered By: Sharan Ayoub on 09-05-2023 CO2 [Moles/Vol] 32.4 mmol/L 21.0-31.0 [facility] Chloride [Moles/volume] in S kasi or PlasmaOrdered By: Sharan Ayoub on 09-05-2023 Chloride [Moles/Vol] 104 mmol/L 98-107 [facility] Creatinine [Mass/volume] in Serum or PlasmaOrdered By: Sharan Ayoub on 09-05-2023 Creatinine [Mass/Vol] 1.00 mg/dL 0.70-1.30 [facility] Eosinophils Auto (Bld) [#/Vo l]Ordered By: Sharan Ayoub on 09-05-2023 Eosinophils (Bld) [#/Vol] 0.2 10*3/uL 0.0-0.45 [facility] Eosinophils/100 WBC Auto (Bl d)Ordered By: Sharan Ayoub on 09-05-2023 Eosinophils/100 WBC (Bld) 3.0 % . [facility] Erythrocyte distribution wid th Auto (RBC) [Ratio]Ordered By: Sharan Ayoub on 09-05-2023 Erythrocyte distribution width (RBC) [Ratio] 13.7 % 12.0-14.8 [facility] Globulin Calc (S) [Mass/Vol] Ordered By: Sharan Ayoub on 09-05-2023 Globulin (S) [Mass/Vol] 3.6 g/dL [facility] Glucose [Mass/volume] in Ser um or PlasmaOrdered By: Sharan Ayoub on 09-05-2023 Glucose [Mass/Vol] 206 mg/dL 70-100 [facility] Comment on above: ADA recommended refe rence rangeRandom Glucose Reference Range is dependent on time and content of last meal. Glucose of more than 200 mg/dL in a nonstressed, ambulatory subject supports the diagnosis of Diabetes Mellitus. Hematocrit Auto (Bld) [Volum e fraction]Ordered By: Sharan Ayoub on 09-05-2023 Hematocrit (Bld) [Volume fraction] 40.5 % 38.8-50.0 [facility] Hemoglobin [Mass/volume] in BloodOrdered By: Sharan Ayoub on 09-05-2023 Hemoglobin (Bld) [Mass/Vol] 13.7 g/dL 13.0-17.0 [facility] Leukocytes [#/volume] correc roderick for nucleated erythrocytes in Blood by Automated counOrdered By: Sharan Ayoub on 09-05-2023 WBC corrected for nucl RBC Auto (Bld) [#/Vol] 5.2 10*3/uL 4.1-10.5 [facility] Lymphocytes Auto (Bld) [#/Vo l]Ordered By: Sharan Ayoub on 09-05-2023 Lymphocytes (Bld) [#/Vol] 2.1 10*3/uL 1.00-4.8 [facility] Lymphocytes/100 WBC Auto (Bl d)Ordered By: Sharan Ayoub on 09-05-2023 Lymphocytes/100 WBC (Bld) 40.0 % . [facility] MCH Auto (RBC) [Entitic mass ]Ordered By: Sharan Ayoub on 09-05-2023 MCH (RBC) [Entitic mass] 31.8 pg 27.5-35.2 [facility] MCHC Auto (RBC) [Mass/Vol]Or dered By: Sharan Ayoub on 09-05-2023 MCHC (RBC) [Mass/Vol] 33.7 g/dL 32.5-35.6 [facility] MCV Auto (RBC) [Entitic vol] Ordered By: Sharan Ayoub on 09-05-2023 MCV (RBC) [Entitic vol] 94.2 fL 83.5-101 [facility] Monocytes Auto (Bld) [#/Vol] Ordered By: Sharan Aoyub on 09-05-2023 Monocytes (Bld) [#/Vol] 0.4 10*3/uL 0.0-0.8 [facility] Monocytes/100 WBC Auto (Bld) Ordered By: Sharan Ayoub on 09-05-2023 Monocytes/100 WBC (Bld) 7.3 % . [facility] Neutrophils Auto (Bld) [#/Vo l]Ordered By: Sharan Ayoub on 09-05-2023 Neutrophils (Bld) [#/Vol] 2.5 10*3/uL 1.8-7.7 [facility] Neutrophils/100 WBC Auto (Bl d)Ordered By: Sharan Ayoub on 09-05-2023 Neutrophils/100 WBC (Bld) 48.6 % . [facility] No Panel InformationOrdered By: Sharan Ayoub on 09-05-2023 Estimated GFR (CKD-EPI) > 60.0 mL/Min [facility] Creatinine Clearance (Chem N/A [facility] Nucleated erythrocytes [Pres ence] in Blood by Automated countOrdered By: Sharan Ayoub on 09-05-2023 Nucleated RBC Auto Ql (Bld) 0.1 /100{WBC} 0-0.5 [facility] Platelet mean volume Auto (B ld) [Entitic vol]Ordered By: Sharan Ayoub on 09-05-2023 Platelet mean volume (Bld) [Entitic vol] 10.3 fL 6.6-10.1 [facility] Platelets Auto (Bld) [#/Vol] Ordered By: Sharan Ayoub on 09-05-2023 Platelets (Bld) [#/Vol] 147 10*3/uL 150-450 [facility] Potassium [Moles/volume] in Serum or PlasmaOrdered By: Sharan Ayoub on 09-05-2023 Potassium [Moles/Vol] 4.0 mmol/L 3.5-5.1 [facility] Protein [Mass/volume] in Ser um or PlasmaOrdered By: Sharan Ayoub on 09-05-2023 Protein [Mass/Vol] 7.2 g/dL 6.4-8.9 [facility] RBC Auto (Bld) [#/Vol]Ordere d By: Sharan Ayoub on 09-05-2023 RBC (Bld) [#/Vol] 4.30 10*6/uL 3.90-5.60 [facility] Serum or plasma albumin/glob ulin mass ratioOrdered By: Sharan Ayoub on 09-05-2023 Albumin/Globulin [Mass ratio] 1.0 {ratio} [facility] Serum or plasma anion gap de terminationOrdered By: Sharan Ayoub on 09-05-2023 Anion gap [Moles/Vol] 7.6 mmol/L 6.0-15.0 [facility] Sodium [Moles/volume] in Ser um or PlasmaOrdered By: Sharan Ayoub on 09-05-2023 Sodium [Moles/Vol] 140 mmol/L 136-145 [facility] Tacrolimus [Mass/volume] in BloodOrdered By: Sharan Ayoub on 09-05-2023 Tacrolimus (Bld) [Mass/Vol] Sent to ref lab [facility] Urea nitrogen [Mass/volume] in Serum or PlasmaOrdered By: Sharan Ayoub on 09-05-2023 Urea nitrogen [Mass/Vol] 15 mg/dL 7-25 [facility] WBC Auto (Bld) [#/Vol]Ordere d By: Sharan Ayoub on 09-05-2023 WBC (Bld) [#/Vol] 5.2 10*3/uL 4.1-10.5 [facility] Whole blood quantitative Eps tein-Fair virus (EBV) DNA assay by PCROrdered By: Leighton Reilly on 09-05-2023 EBV DNA LÁZARO+probe (Bld) [#/Vol] See comment [facility] Comment on above: See report. Scanned copy available in EMR. Alanine aminotransferase [En zymatic activity/volume] in Serum or PlasmaOrdered By: Sharan Ayoub on 08-16-2023 ALT [Catalytic activity/Vol] 63 U/L 7-52 [facility] Albumin [Mass/volume] in Ser um or Plasma by Bromocresol green (BCG) dye binding methoOrdered By: Sharan Ayoub on 08-16-2023 Albumin BCG dye [Mass/Vol] 3.8 g/dL 3.5-5.7 [facility] Alkaline phosphatase [Enzyma tic activity/volume] in Serum or PlasmaOrdered By: Sharan Ayoub on 08-16-2023 ALP [Catalytic activity/Vol] 178 U/L 34-104 [facility] Aspartate aminotransferase [ Enzymatic activity/volume] in Serum or PlasmaOrdered By: Sharan Ayoub on 08-16-2023 AST [Catalytic activity/Vol] 62 U/L 13-39 [facility] Basophils Auto (Bld) [#/Vol] Ordered By: Sharan Ayoub on 08-16-2023 Basophils (Bld) [#/Vol] 0.0 10*3/uL 0.0-0.2 [facility] Basophils/100 WBC Auto (Bld) Ordered By: Sharan Ayoub on 08-16-2023 Basophils/100 WBC (Bld) 0.8 % . [facility] Bilirubin.total [Mass/volume ] in Serum or PlasmaOrdered By: Sharan Ayoub on 08-16-2023 Bilirubin [Mass/Vol] 1.7 mg/dL 0.3-1.0 [facility] Comment on above: Samples from patient s who have taken Naproxen have shown spurious elevation in Total Bilirubin levels. A metabolite of Naproxen, O-desmethylnaproxen, has been shown to interfere with the Harlan-Uriel method for measuring Total Bilirubin. Calcium [Mass/volume] in Ser um or PlasmaOrdered By: Sharan Ayoub on 08-16-2023 Calcium [Mass/Vol] 9.4 mg/dL 8.6-10.3 [facility] Carbon dioxide, total [Moles /volume] in Serum or PlasmaOrdered By: Sharan Ayoub on 08-16-2023 CO2 [Moles/Vol] 33.7 mmol/L 21.0-31.0 [facility] Chloride [Moles/volume] in S kasi or PlasmaOrdered By: Sharan Ayoub on 08-16-2023 Chloride [Moles/Vol] 104 mmol/L 98-107 [facility] Creatinine [Mass/volume] in Serum or PlasmaOrdered By: Sharan Ayoub on 08-16-2023 Creatinine [Mass/Vol] 0.96 mg/dL 0.70-1.30 [facility] Eosinophils Auto (Bld) [#/Vo l]Ordered By: Sharan Ayoub on 08-16-2023 Eosinophils (Bld) [#/Vol] 0.1 10*3/uL 0.0-0.45 [facility] Eosinophils/100 WBC Auto (Bl d)Ordered By: Sharan Ayoub on 08-16-2023 Eosinophils/100 WBC (Bld) 2.0 % . [facility] Erythrocyte distribution wid th Auto (RBC) [Ratio]Ordered By: Sharan Ayoub on 08-16-2023 Erythrocyte distribution width (RBC) [Ratio] 13.8 % 12.0-14.8 [facility] Globulin Calc (S) [Mass/Vol] Ordered By: Sharan Ayoub on 08-16-2023 Globulin (S) [Mass/Vol] 3.3 g/dL [facility] Glucose [Mass/volume] in Ser um or PlasmaOrdered By: Sharan Ayoub on 08-16-2023 Glucose [Mass/Vol] 91 mg/dL 70-100 [facility] Comment on above: ADA recommended refe rence rangeRandom Glucose Reference Range is dependent on time and content of last meal. Glucose of more than 200 mg/dL in a nonstressed, ambulatory subject supports the diagnosis of Diabetes Mellitus. Hematocrit Auto (Bld) [Volum e fraction]Ordered By: Sharan Ayoub on 08-16-2023 Hematocrit (Bld) [Volume fraction] 39.7 % 38.8-50.0 [facility] Hemoglobin [Mass/volume] in BloodOrdered By: Sharan Ayoub on 08-16-2023 Hemoglobin (Bld) [Mass/Vol] 13.4 g/dL 13.0-17.0 [facility] Leukocytes [#/volume] correc roderick for nucleated erythrocytes in Blood by Automated counOrdered By: Sharan Ayoub on 08-16-2023 WBC corrected for nucl RBC Auto (Bld) [#/Vol] 5.2 10*3/uL 4.1-10.5 [facility] Lymphocytes Auto (Bld) [#/Vo l]Ordered By: Sharan Ayoub on 08-16-2023 Lymphocytes (Bld) [#/Vol] 1.9 10*3/uL 1.00-4.8 [facility] Lymphocytes/100 WBC Auto (Bl d)Ordered By: Sharan Ayoub on 08-16-2023 Lymphocytes/100 WBC (Bld) 37.2 % . [facility] MCH Auto (RBC) [Entitic mass ]Ordered By: Sharan Ayoub on 08-16-2023 MCH (RBC) [Entitic mass] 31.8 pg 27.5-35.2 [facility] MCHC Auto (RBC) [Mass/Vol]Or dered By: Sharan Ayoub on 08-16-2023 MCHC (RBC) [Mass/Vol] 33.7 g/dL 32.5-35.6 [facility] MCV Auto (RBC) [Entitic vol] Ordered By: Sharan Ayoub on 08-16-2023 MCV (RBC) [Entitic vol] 94.3 fL 83.5-101 [facility] Monocytes Auto (Bld) [#/Vol] Ordered By: Sharan Ayoub on 08-16-2023 Monocytes (Bld) [#/Vol] 0.5 10*3/uL 0.0-0.8 [facility] Monocytes/100 WBC Auto (Bld) Ordered By: Sharan Ayoub on 08-16-2023 Monocytes/100 WBC (Bld) 10.1 % . [facility] Neutrophils Auto (Bld) [#/Vo l]Ordered By: Sharan Ayoub on 08-16-2023 Neutrophils (Bld) [#/Vol] 2.6 10*3/uL 1.8-7.7 [facility] Neutrophils/100 WBC Auto (Bl d)Ordered By: Sharan Ayoub on 08-16-2023 Neutrophils/100 WBC (Bld) 49.9 % . [facility] No Panel InformationOrdered By: Sharan Ayoub on 08-16-2023 Estimated GFR (CKD-EPI) > 60.0 mL/Min [facility] Creatinine Clearance (Chem N/A [facility] Nucleated erythrocytes [Pres ence] in Blood by Automated countOrdered By: Sharan Ayoub on 08-16-2023 Nucleated RBC Auto Ql (Bld) 0.1 /100{WBC} 0-0.5 [facility] Platelet mean volume Auto (B ld) [Entitic vol]Ordered By: Sharan Ayoub on 08-16-2023 Platelet mean volume (Bld) [Entitic vol] 10.3 fL 6.6-10.1 [facility] Platelets Auto (Bld) [#/Vol] Ordered By: Sharan Ayoub on 08-16-2023 Platelets (Bld) [#/Vol] 148 10*3/uL 150-450 [facility] Potassium [Moles/volume] in Serum or PlasmaOrdered By: Sharan Ayoub on 08-16-2023 Potassium [Moles/Vol] 4.2 mmol/L 3.5-5.1 [facility] Protein [Mass/volume] in Ser um or PlasmaOrdered By: Sharan Ayoub on 08-16-2023 Protein [Mass/Vol] 7.1 g/dL 6.4-8.9 [facility] RBC Auto (Bld) [#/Vol]Ordere d By: Sharan Ayoub on 08-16-2023 RBC (Bld) [#/Vol] 4.21 10*6/uL 3.90-5.60 [facility] Serum or plasma albumin/glob ulin mass ratioOrdered By: Sharan Ayoub on 08-16-2023 Albumin/Globulin [Mass ratio] 1.2 {ratio} [facility] Serum or plasma anion gap de terminationOrdered By: Sharan Ayoub on 08-16-2023 Anion gap [Moles/Vol] 7.5 mmol/L 6.0-15.0 [facility] Sodium [Moles/volume] in Ser um or PlasmaOrdered By: Sharan Ayoub on 08-16-2023 Sodium [Moles/Vol] 141 mmol/L 136-145 [facility] Tacrolimus [Mass/volume] in BloodOrdered By: Sharan Ayoub on 08-16-2023 Tacrolimus (Bld) [Mass/Vol] Sent to ref lab [facility] Urea nitrogen [Mass/volume] in Serum or PlasmaOrdered By: Sharan Ayoub on 08-16-2023 Urea nitrogen [Mass/Vol] 18 mg/dL 7-25 [facility] WBC Auto (Bld) [#/Vol]Ordere d By: Sharan Ayoub on 08-16-2023 WBC (Bld) [#/Vol] 5.2 10*3/uL 4.1-10.5 [facility] Alanine aminotransferase [En zymatic activity/volume] in Serum or PlasmaOrdered By: Sharan Ayoub on 07-18-2023 ALT [Catalytic activity/Vol] 69 U/L 7-52 [facility] Albumin [Mass/volume] in Ser um or Plasma by Bromocresol green (BCG) dye binding methoOrdered By: Sharan Ayoub on 07-18-2023 Albumin BCG dye [Mass/Vol] 3.6 g/dL 3.5-5.7 [facility] Alkaline phosphatase [Enzyma tic activity/volume] in Serum or PlasmaOrdered By: Sharan Ayoub on 07-18-2023 ALP [Catalytic activity/Vol] 180 U/L 34-104 [facility] Aspartate aminotransferase [ Enzymatic activity/volume] in Serum or PlasmaOrdered By: Sharan Ayoub on 07-18-2023 AST [Catalytic activity/Vol] 53 U/L 13-39 [facility] Basophils Auto (Bld) [#/Vol] Ordered By: Sharan Ayoub on 07-18-2023 Basophils (Bld) [#/Vol] 0.1 10*3/uL 0.0-0.2 [facility] Basophils/100 WBC Auto (Bld) Ordered By: Sharan Ayoub on 07-18-2023 Basophils/100 WBC (Bld) 1.0 % . [facility] Bilirubin.total [Mass/volume ] in Serum or PlasmaOrdered By: Sharan Ayoub on 07-18-2023 Bilirubin [Mass/Vol] 1.2 mg/dL 0.3-1.0 [facility] Calcium [Mass/volume] in Ser um or PlasmaOrdered By: Sharan Ayoub on 07-18-2023 Calcium [Mass/Vol] 8.9 mg/dL 8.6-10.3 [facility] Carbon dioxide, total [Moles /volume] in Serum or PlasmaOrdered By: Sharan Ayoub on 07-18-2023 CO2 [Moles/Vol] 32.5 mmol/L 21.0-31.0 [facility] Chloride [Moles/volume] in S kasi or PlasmaOrdered By: Sharan Ayoub on 07-18-2023 Chloride [Moles/Vol] 103 mmol/L 98-107 [facility] Creatinine [Mass/volume] in Serum or PlasmaOrdered By: Sharan Ayoub on 07-18-2023 Creatinine [Mass/Vol] 0.95 mg/dL 0.70-1.30 [facility] Eosinophils Auto (Bld) [#/Vo l]Ordered By: Sharan Ayoub on 07-18-2023 Eosinophils (Bld) [#/Vol] 0.1 10*3/uL 0.0-0.45 [facility] Eosinophils/100 WBC Auto (Bl d)Ordered By: Sharan Ayoub on 07-18-2023 Eosinophils/100 WBC (Bld) 2.4 % . [facility] Erythrocyte distribution wid th Auto (RBC) [Ratio]Ordered By: Sharan Ayoub on 07-18-2023 Erythrocyte distribution width (RBC) [Ratio] 14.0 % 12.0-14.8 [facility] Globulin Calc (S) [Mass/Vol] Ordered By: Sharan Ayoub on 07-18-2023 Globulin (S) [Mass/Vol] 3.5 g/dL [facility] Glucose [Mass/volume] in Ser um or PlasmaOrdered By: Sharan Ayoub on 07-18-2023 Glucose [Mass/Vol] 369 mg/dL 70-100 [facility] Comment on above: ADA recommended refe rence rangeRandom Glucose Reference Range is dependent on time and content of last meal. Glucose of more than 200 mg/dL in a nonstressed, ambulatory subject supports the diagnosis of Diabetes Mellitus. Hematocrit Auto (Bld) [Volum e fraction]Ordered By: Sharan Ayoub on 07-18-2023 Hematocrit (Bld) [Volume fraction] 40.5 % 38.8-50.0 [facility] Hemoglobin [Mass/volume] in BloodOrdered By: Sharan Ayoub on 07-18-2023 Hemoglobin (Bld) [Mass/Vol] 13.7 g/dL 13.0-17.0 [facility] Leukocytes [#/volume] correc roderick for nucleated erythrocytes in Blood by Automated counOrdered By: Sharan Ayoub on 07-18-2023 WBC corrected for nucl RBC Auto (Bld) [#/Vol] 5.4 10*3/uL 4.1-10.5 [facility] Lymphocytes Auto (Bld) [#/Vo l]Ordered By: Sharan Ayoub on 07-18-2023 Lymphocytes (Bld) [#/Vol] 1.8 10*3/uL 1.00-4.8 [facility] Lymphocytes/100 WBC Auto (Bl d)Ordered By: Sharan Ayoub on 07-18-2023 Lymphocytes/100 WBC (Bld) 33.7 % . [facility] MCH Auto (RBC) [Entitic mass ]Ordered By: Sharan Ayoub on 07-18-2023 MCH (RBC) [Entitic mass] 31.8 pg 27.5-35.2 [facility] MCHC Auto (RBC) [Mass/Vol]Or dered By: Sharan Ayoub on 07-18-2023 MCHC (RBC) [Mass/Vol] 33.7 g/dL 32.5-35.6 [facility] MCV Auto (RBC) [Entitic vol] Ordered By: Sharan Ayoub on 07-18-2023 MCV (RBC) [Entitic vol] 94.2 fL 83.5-101 [facility] Monocytes Auto (Bld) [#/Vol] Ordered By: Sharan Ayoub on 07-18-2023 Monocytes (Bld) [#/Vol] 0.4 10*3/uL 0.0-0.8 [facility] Monocytes/100 WBC Auto (Bld) Ordered By: Sharan Ayoub on 07-18-2023 Monocytes/100 WBC (Bld) 7.3 % . [facility] Neutrophils Auto (Bld) [#/Vo l]Ordered By: Sharan Ayoub on 07-18-2023 Neutrophils (Bld) [#/Vol] 3.0 10*3/uL 1.8-7.7 [facility] Neutrophils/100 WBC Auto (Bl d)Ordered By: Sharan Ayoub on 07-18-2023 Neutrophils/100 WBC (Bld) 55.6 % . [facility] No Panel InformationOrdered By: Leighton Reilly on 07-18-2023 Isaac-Fair DNA, Quant (PCR) log10 3.254 . [facility] Comment on above: Result Units: log10c opy/mLPerformed at: - [facility] [address] [id number] Director: Thierry Currie MD, Phone: [phone] No Panel InformationOrdered By: Sharan Ayoub on 07-18-2023 Estimated GFR (CKD-EPI) > 60.0 mL/Min [facility] Creatinine Clearance (Chem N/A [facility] Nucleated erythrocytes [Pres ence] in Blood by Automated countOrdered By: Sharan Ayoub on 07-18-2023 Nucleated RBC Auto Ql (Bld) 0.2 /100{WBC} 0-0.5 [facility] Platelet mean volume Auto (B ld) [Entitic vol]Ordered By: Sharan Ayoub on 07-18-2023 Platelet mean volume (Bld) [Entitic vol] 10.7 fL 6.6-10.1 [facility] Platelets Auto (Bld) [#/Vol] Ordered By: Sahran Ayoub on 07-18-2023 Platelets (Bld) [#/Vol] 129 10*3/uL 150-450 [facility] Potassium [Moles/volume] in Serum or PlasmaOrdered By: Sharan Ayoub on 07-18-2023 Potassium [Moles/Vol] 4.2 mmol/L 3.5-5.1 [facility] Protein [Mass/volume] in Ser um or PlasmaOrdered By: Sharan Ayoub on 07-18-2023 Protein [Mass/Vol] 7.1 g/dL 6.4-8.9 [facility] RBC Auto (Bld) [#/Vol]Ordere d By: Sharan Ayoub on 07-18-2023 RBC (Bld) [#/Vol] 4.30 10*6/uL 3.90-5.60 [facility] Serum or plasma albumin/glob ulin mass ratioOrdered By: Sharan Ayoub on 07-18-2023 Albumin/Globulin [Mass ratio] 1.0 {ratio} [facility] Serum or plasma anion gap de terminationOrdered By: Sharan Ayoub on 07-18-2023 Anion gap [Moles/Vol] 7.7 mmol/L 6.0-15.0 [facility] Sodium [Moles/volume] in Ser um or PlasmaOrdered By: Sharan Ayoub on 07-18-2023 Sodium [Moles/Vol] 139 mmol/L 136-145 [facility] Tacrolimus [Mass/volume] in BloodOrdered By: Sharan Ayoub on 07-18-2023 Tacrolimus (Bld) [Mass/Vol] Sent to ref lab [facility] Urea nitrogen [Mass/volume] in Serum or PlasmaOrdered By: Sharan Ayoub on 07-18-2023 Urea nitrogen [Mass/Vol] 15 mg/dL 7-25 [facility] WBC Auto (Bld) [#/Vol]Ordere d By: Sharan Ayoub on 07-18-2023 WBC (Bld) [#/Vol] 5.4 10*3/uL 4.1-10.5 [facility] Whole blood quantitative Eps tein-Fair virus (EBV) DNA assay by PCROrdered By: Leighton Reilly on 07-18-2023 EBV DNA LÁZARO+probe (Bld) [#/Vol] 1793 copies/mL Negative [facility] Comment on above: The quantitative ran ge of this assay is 100 to 1 millioncopies/mL.This test was developed and its performance characteristicsdetermined by [employer]. It has not been cleared or approvedby the Food and Drug Administration. The FDA hasdetermined that such clearance or approval is notnecessary. TACROLIMUSon 06-10-2023 Tacrolimus (Bld) [Mass/Vol] 15.8 ng/mL High 2.0 - 15.0 [facility] Comment on above: Result Comment: NOTE : Result was obtained using a chemiluminescent microparticle immunoassay (CMIA) on the [employer] i system. Optimal therapeutic ranges for immuno- suppressant drugs depend upon an individual patient's current clinical state, type of organ transplant, time post-transplant, co-administration of other immunosuppressants, and other clinical factors. The results of this test should be correlated with additional clinical and laboratory data before changes in treatment regimens are made. Performed By: #### F [id number] #### [facility] [id number] [place] [address] Alanine aminotransferase [En zymatic activity/volume] in Serum or PlasmaOrdered By: Sharan Ayoub on 06-09-2023 ALT [Catalytic activity/Vol] 62 U/L 7-52 [facility] Albumin [Mass/volume] in Ser um or Plasma by Bromocresol green (BCG) dye binding methoOrdered By: Sharan Ayoub on 06-09-2023 Albumin BCG dye [Mass/Vol] 3.6 g/dL 3.5-5.7 [facility] Alkaline phosphatase [Enzyma tic activity/volume] in Serum or PlasmaOrdered By: Sharan Ayoub on 06-09-2023 ALP [Catalytic activity/Vol] 185 U/L 34-104 [facility] Aspartate aminotransferase [ Enzymatic activity/volume] in Serum or PlasmaOrdered By: Sharan Ayoub on 06-09-2023 AST [Catalytic activity/Vol] 67 U/L 13-39 [facility] Basophils Auto (Bld) [#/Vol] Ordered By: Sharan Ayoub on 06-09-2023 Basophils (Bld) [#/Vol] 0.0 10*3/uL 0.0-0.2 [facility] Basophils/100 WBC Auto (Bld) Ordered By: Sharan Ayoub on 06-09-2023 Basophils/100 WBC (Bld) 0.5 % . [facility] Bilirubin.total [Mass/volume ] in Serum or PlasmaOrdered By: Sharan Ayoub on 06-09-2023 Bilirubin [Mass/Vol] 1.4 mg/dL 0.3-1.0 [facility] Comment on above: Samples from patient s who have taken Naproxen have shown spurious elevation in Total Bilirubin levels. A metabolite of Naproxen, O-desmethylnaproxen, has been shown to interfere with the Austen method for measuring Total Bilirubin. Calcium [Mass/volume] in Ser um or PlasmaOrdered By: Sharan Ayoub on 06-09-2023 Calcium [Mass/Vol] 8.8 mg/dL 8.6-10.3 [facility] Carbon dioxide, total [Moles /volume] in Serum or PlasmaOrdered By: Sharan Ayoub on 06-09-2023 CO2 [Moles/Vol] 31.0 mmol/L 21.0-31.0 [facility] Chloride [Moles/volume] in S kasi or PlasmaOrdered By: Sharan Ayoub on 06-09-2023 Chloride [Moles/Vol] 105 mmol/L 98-107 [facility] Cholesterol [Mass/volume] in Serum or PlasmaOrdered By: Ember Tejeda on 06-09-2023 Cholesterol [Mass/Vol] 211 mg/dL 140-200 [facility] Comment on above: Chol less than 200 m g/dl low riskChol 201-239 mg/dl borderline riskChol 240 mg/dl and greater high risk Cholesterol in LDL Calc [Mas s/Vol]Ordered By: Ember Tejeda on 06-09-2023 Cholesterol in LDL [Mass/Vol] 107 mg/dL 0-100 [facility] Comment on above: LDL ATP III CLASSIFI CATIONLDL less than 100 mg/dL OptimalLDL 100-129 mg/dL Near or above optimalLDL 130-159 mg/dL Borderline highLDL 160-189 mg/dL HighLDL greater than 189 mg/dL Very high Cholesterol in VLDL Calc [Ma ss/Vol]Ordered By: Ember Tejeda on 06-09-2023 Cholesterol in VLDL [Mass/Vol] 16 mg/dL [facility] Creatinine [Mass/volume] in Serum or PlasmaOrdered By: Sharan Ayoub on 06-09-2023 Creatinine [Mass/Vol] 0.93 mg/dL 0.70-1.30 [facility] Eosinophils Auto (Bld) [#/Vo l]Ordered By: Sharan Ayoub on 06-09-2023 Eosinophils (Bld) [#/Vol] 0.1 10*3/uL 0.0-0.45 [facility] Eosinophils/100 WBC Auto (Bl d)Ordered By: Sharan Ayoub on 06-09-2023 Eosinophils/100 WBC (Bld) 1.5 % . [facility] Isaac Fair virus DNA [#/vo lume] (viral load) in Serum or Plasma by LÁZARO with probe dOrdered By: Leighton Reilly on 06-09-2023 EBV DNA LÁZARO+probe [#/Vol] Negative Negative [facility] Comment on above: No EBV DNA detected. The linear range of this assay is 35 - 100,000,000 IU/mLPerformed at: [facility] [id number] Director: Thierry Currie MD, Phone: [phone] Erythrocyte distribution wid th Auto (RBC) [Ratio]Ordered By: Sharan Ayoub on 06-09-2023 Erythrocyte distribution width (RBC) [Ratio] 14.0 % 12.0-14.8 [facility] Globulin Calc (S) [Mass/Vol] Ordered By: Sharan Ayoub on 06-09-2023 Globulin (S) [Mass/Vol] 3.1 g/dL [facility] Glucose [Mass/volume] in Ser um or PlasmaOrdered By: Sharan Ayoub on 06-09-2023 Glucose [Mass/Vol] 149 mg/dL 70-100 [facility] Comment on above: ADA recommended refe rence rangeRandom Glucose Reference Range is dependent on time and content of last meal. Glucose of more than 200 mg/dL in a nonstressed, ambulatory subject supports the diagnosis of Diabetes Mellitus. Hematocrit Auto (Bld) [Volum e fraction]Ordered By: Sharan Ayoub on 06-09-2023 Hematocrit (Bld) [Volume fraction] 40.7 % 38.8-50.0 [facility] Hemoglobin [Mass/volume] in BloodOrdered By: Sharan Ayoub on 06-09-2023 Hemoglobin (Bld) [Mass/Vol] 13.5 g/dL 13.0-17.0 [facility] Leukocytes [#/volume] correc roderick for nucleated erythrocytes in Blood by Automated counOrdered By: Sharan Ayoub on 06-09-2023 WBC corrected for nucl RBC Auto (Bld) [#/Vol] 3.8 10*3/uL 4.1-10.5 [facility] Lymphocytes Auto (Bld) [#/Vo l]Ordered By: Sharan Ayoub on 06-09-2023 Lymphocytes (Bld) [#/Vol] 2.0 10*3/uL 1.00-4.8 [facility] Lymphocytes/100 WBC Auto (Bl d)Ordered By: Sharan Ayoub on 06-09-2023 Lymphocytes/100 WBC (Bld) 51.4 % . [facility] MCH Auto (RBC) [Entitic mass ]Ordered By: Sharan Ayoub on 06-09-2023 MCH (RBC) [Entitic mass] 31.1 pg 27.5-35.2 [facility] MCHC Auto (RBC) [Mass/Vol]Or dered By: Sharan Ayoub on 06-09-2023 MCHC (RBC) [Mass/Vol] 33.2 g/dL 32.5-35.6 [facility] MCV Auto (RBC) [Entitic vol] Ordered By: Sharan Ayoub on 06-09-2023 MCV (RBC) [Entitic vol] 93.7 fL 83.5-101 [facility] Monocytes Auto (Bld) [#/Vol] Ordered By: Sharan Ayoub on 06-09-2023 Monocytes (Bld) [#/Vol] 0.6 10*3/uL 0.0-0.8 [facility] Monocytes/100 WBC Auto (Bld) Ordered By: Sharan Ayoub on 06-09-2023 Monocytes/100 WBC (Bld) 16.0 % . [facility] Neutrophils Auto (Bld) [#/Vo l]Ordered By: Sharan Ayoub on 06-09-2023 Neutrophils (Bld) [#/Vol] 1.2 10*3/uL 1.8-7.7 [facility] Neutrophils/100 WBC Auto (Bl d)Ordered By: Sharan Ayoub on 06-09-2023 Neutrophils/100 WBC (Bld) 30.6 % . [facility] No Panel InformationOrdered By: Leighton Reilly on 06-09-2023 Isaac-Fair Quant PCR Plasma log10 N/A [facility] No Panel InformationOrdered By: Sharan Ayoub on 06-09-2023 Estimated GFR (CKD-EPI) > 60.0 mL/Min [facility] Creatinine Clearance (Chem N/A [facility] Tacrolimus (Prograf) Level Sent to [facility] Nucleated erythrocytes [Pres ence] in Blood by Automated countOrdered By: Sharan Ayoub on 06-09-2023 Nucleated RBC Auto Ql (Bld) 0.1 /100{WBC} 0-0.5 [facility] Platelet mean volume Auto (B ld) [Entitic vol]Ordered By: Sharan Ayoub on 06-09-2023 Platelet mean volume (Bld) [Entitic vol] 10.9 fL 6.6-10.1 [facility] Platelets Auto (Bld) [#/Vol] Ordered By: Sharan Ayoub on 06-09-2023 Platelets (Bld) [#/Vol] 129 10*3/uL 150-450 [facility] Potassium [Moles/volume] in Serum or PlasmaOrdered By: Sharan Ayoub on 06-09-2023 Potassium [Moles/Vol] 4.1 mmol/L 3.5-5.1 [facility] Protein [Mass/volume] in Ser um or PlasmaOrdered By: Sharan Ayoub on 06-09-2023 Protein [Mass/Vol] 6.7 g/dL 6.4-8.9 [facility] RBC Auto (Bld) [#/Vol]Ordere d By: Sharan Ayoub on 06-09-2023 RBC (Bld) [#/Vol] 4.35 10*6/uL 3.90-5.60 [facility] Serum or plasma albumin/glob ulin mass ratioOrdered By: Sharan Ayoub on 06-09-2023 Albumin/Globulin [Mass ratio] 1.2 {ratio} [facility] Serum or plasma anion gap de terminationOrdered By: Sharan Ayoub on 06-09-2023 Anion gap [Moles/Vol] 8.1 mmol/L 6.0-15.0 [facility] Serum or plasma high density lipoprotein (HDL) cholesterol measurementOrdered By: Ember Tejeda on 06-09-2023 Cholesterol in HDL [Mass/Vol] 87 mg/dL 23-92 [facility] Comment on above: HDL CHOL ATP-III CLA SSIFICATION Cardiovascular RiskHDL > or equal to 60 mg/dL LOWHDL < 40 mg/dL HIGH Serum or plasma total choles terol/high density lipoprotein (HDL) cholesterol mass ratOrdered By: Ember Tejeda on 06-09-2023 Cholesterol.total/Cho lesterol in HDL [Mass ratio] 2.4 {ratio} <5.0 [facility] Sodium [Moles/volume] in Ser um or PlasmaOrdered By: Sharan Ayoub on 06-09-2023 Sodium [Moles/Vol] 140 mmol/L 136-145 [facility] Tacrolimuson 06-09-2023 Tacrolimus (Bld) [Mass/Vol] 15.8 ng/mL above high threshold 2.0 - 15.0 [facility] [address] [facility] Work Phone: Comment on above: NOTE: Result was obt ained using a chemiluminescent microparticle immunoassay (CMIA) on the [employer] i system.Optimal therapeutic ranges for immuno-suppressant drugs depend upon an individualpatient's current clinical state, type oforgan transplant, time post-transplant,co-administration of other immunosuppressants,and other clinical factors. The results ofthis test should be correlated with additionalclinical and laboratory data before changesin treatment regimens are made. Thyrotropin [Units/volume] i n Serum or PlasmaOrdered By: Ember Tejeda on 06-09-2023 TSH Qn 1.50 m[IU]/L 0.45-5.33 [facility] Triglyceride [Mass/volume] i n Serum or PlasmaOrdered By: Ember Tejeda on 06-09-2023 Triglyceride [Mass/Vol] 84 mg/dL 0-149 [facility] Comment on above: TRIG ATP III CLASSIF ICATIONTRIG less than 150 mg/dL NormalTRIG 150-199 mg/dL Borderline highTRIG 200-500 mg/dL High TRIG greater than 500 mg/dL Very highStandard traceable to the Center for Disease Conrtrol and Prevention (CDC) test method. Urea nitrogen [Mass/volume] in Serum or PlasmaOrdered By: Sharan Ayoub on 06-09-2023 Urea nitrogen [Mass/Vol] 14 mg/dL 7-25 [facility] WBC Auto (Bld) [#/Vol]Ordere d By: Sharan Ayoub on 06-09-2023 WBC (Bld) [#/Vol] 3.8 10*3/uL 4.1-10.5 [facility] TACROLIMUSon 05-24-2023 Tacrolimus (Bld) [Mass/Vol] 7.7 ng/mL Normal 2.0 - 15.0 [facility] Comment on above: Result Comment: NOTE : Result was obtained using a chemiluminescent microparticle immunoassay (CMIA) on the Tent Worker i system. Optimal therapeutic ranges for immuno- suppressant drugs depend upon an individual patient's current clinical state, type of organ transplant, time post-transplant, co-administration of other immunosuppressants, and other clinical factors. The results of this test should be correlated with additional clinical and laboratory data before changes in treatment regimens are made. Performed By: #### F [id number] #### [facility] [address] [place] [address] Tacrolimuson 05-23-2023 Tacrolimus (Bld) [Mass/Vol] 7.7 ng/mL 2.0 - 15.0 [facility] [address] [facility] Work Phone: Comment on above: NOTE: Result was obt ained using a chemiluminescent microparticle immunoassay (CMIA) on the Tent Worker i system.Optimal therapeutic ranges for immuno-suppressant drugs depend upon an individualpatient's current clinical state, type oforgan transplant, time post-transplant,co-administration of other immunosuppressants,and other clinical factors. The results ofthis test should be correlated with additionalclinical and laboratory data before changesin treatment regimens are made. Alanine aminotransferase [En zymatic activity/volume] in Serum or PlasmaOrdered By: Sharan Ayoub on 05-19-2023 ALT [Catalytic activity/Vol] 70 U/L 7-52 [facility] Albumin [Mass/volume] in Ser um or Plasma by Bromocresol green (BCG) dye binding methoOrdered By: Sharan Ayoub on 05-19-2023 Albumin BCG dye [Mass/Vol] 3.5 g/dL 3.5-5.7 [facility] Alkaline phosphatase [Enzyma tic activity/volume] in Serum or PlasmaOrdered By: Sharan Ayoub on 05-19-2023 ALP [Catalytic activity/Vol] 173 U/L 34-104 [facility] Aspartate aminotransferase [ Enzymatic activity/volume] in Serum or PlasmaOrdered By: Sharan Ayoub on 05-19-2023 AST [Catalytic activity/Vol] 86 U/L 13-39 [facility] Basophils Auto (Bld) [#/Vol] Ordered By: Sharan Ayoub on 05-19-2023 Basophils (Bld) [#/Vol] 0.1 10*3/uL 0.0-0.2 [facility] Basophils/100 WBC Auto (Bld) Ordered By: Sharan Ayoub on 05-19-2023 Basophils/100 WBC (Bld) 1.3 % . [facility] Bilirubin.total [Mass/volume ] in Serum or PlasmaOrdered By: Sharan Ayoub on 05-19-2023 Bilirubin [Mass/Vol] 2.5 mg/dL 0.3-1.0 [facility] Comment on above: Samples from patient s who have taken Naproxen have shown spurious elevation in Total Bilirubin levels. A metabolite of Naproxen, O-desmethylnaproxen, has been shown to interfere with the Harlan-Uriel method for measuring Total Bilirubin. Calcium [Mass/volume] in Ser um or PlasmaOrdered By: Sharan Ayoub on 05-19-2023 Calcium [Mass/Vol] 9.2 mg/dL 8.6-10.3 [facility] Carbon dioxide, total [Moles /volume] in Serum or PlasmaOrdered By: Sharan Ayoub on 05-19-2023 CO2 [Moles/Vol] 30.1 mmol/L 21.0-31.0 [facility] Chloride [Moles/volume] in S kasi or PlasmaOrdered By: Sharan Ayoub on 05-19-2023 Chloride [Moles/Vol] 103 mmol/L 98-107 [facility] Creatinine [Mass/volume] in Serum or PlasmaOrdered By: Sharan Ayoub on 05-19-2023 Creatinine [Mass/Vol] 1.08 mg/dL 0.70-1.30 [facility] Eosinophils Auto (Bld) [#/Vo l]Ordered By: Sharan Ayoub on 05-19-2023 Eosinophils (Bld) [#/Vol] 0.1 10*3/uL 0.0-0.45 [facility] Eosinophils/100 WBC Auto (Bl d)Ordered By: Sharan Ayoub on 05-19-2023 Eosinophils/100 WBC (Bld) 2.0 % . [facility] Isaac Fair virus DNA [#/vo lume] (viral load) in Serum or Plasma by LÁZARO with probe dOrdered By: Leighton Reilly on 05-19-2023 EBV DNA LÁZARO+probe [#/Vol] Negative Negative [facility] Comment on above: No EBV DNA detected. The linear range of this assay is 35 - 100,000,000 IU/mLPerformed at: [facility] Lab[address] [id number] Director: Thierry Currie MD, Phone: [phone] Erythrocyte distribution wid th Auto (RBC) [Ratio]Ordered By: Sharan Ayoub on 05-19-2023 Erythrocyte distribution width (RBC) [Ratio] 13.9 % 12.0-14.8 [facility] Globulin Calc (S) [Mass/Vol] Ordered By: Sharan Ayoub on 05-19-2023 Globulin (S) [Mass/Vol] 3.6 g/dL [facility] Glucose [Mass/volume] in Ser um or PlasmaOrdered By: Sharan Ayoub on 05-19-2023 Glucose [Mass/Vol] 147 mg/dL 70-100 [facility] Comment on above: ADA recommended refe rence rangeRandom Glucose Reference Range is dependent on time and content of last meal. Glucose of more than 200 mg/dL in a nonstressed, ambulatory subject supports the diagnosis of Diabetes Mellitus. Hematocrit Auto (Bld) [Volum e fraction]Ordered By: Sharan Ayoub on 05-19-2023 Hematocrit (Bld) [Volume fraction] 39.0 % 38.8-50.0 [facility] Hemoglobin [Mass/volume] in BloodOrdered By: Sharan Ayoub on 05-19-2023 Hemoglobin (Bld) [Mass/Vol] 13.2 g/dL 13.0-17.0 [facility] Leukocytes [#/volume] correc roderick for nucleated erythrocytes in Blood by Automated counOrdered By: Sharan Ayoub on 05-19-2023 WBC corrected for nucl RBC Auto (Bld) [#/Vol] 4.7 10*3/uL 4.1-10.5 [facility] Lymphocytes Auto (Bld) [#/Vo l]Ordered By: Sharan Ayoub on 05-19-2023 Lymphocytes (Bld) [#/Vol] 2.0 10*3/uL 1.00-4.8 [facility] Lymphocytes/100 WBC Auto (Bl d)Ordered By: Sharan Ayoub on 05-19-2023 Lymphocytes/100 WBC (Bld) 42.7 % . [facility] MCH Auto (RBC) [Entitic mass ]Ordered By: Sharan Ayoub on 05-19-2023 MCH (RBC) [Entitic mass] 31.9 pg 27.5-35.2 [facility] MCHC Auto (RBC) [Mass/Vol]Or dered By: Sharan Ayoub on 05-19-2023 MCHC (RBC) [Mass/Vol] 33.9 g/dL 32.5-35.6 [facility] MCV Auto (RBC) [Entitic vol] Ordered By: Sharan Ayoub on 05-19-2023 MCV (RBC) [Entitic vol] 94.0 fL 83.5-101 [facility] Monocytes Auto (Bld) [#/Vol] Ordered By: Sharan Ayoub on 05-19-2023 Monocytes (Bld) [#/Vol] 0.3 10*3/uL 0.0-0.8 [facility] Monocytes/100 WBC Auto (Bld) Ordered By: Sharan Ayoub on 05-19-2023 Monocytes/100 WBC (Bld) 6.3 % . [facility] Neutrophils Auto (Bld) [#/Vo l]Ordered By: Sharan Ayoub on 05-19-2023 Neutrophils (Bld) [#/Vol] 2.3 10*3/uL 1.8-7.7 [facility] Neutrophils/100 WBC Auto (Bl d)Ordered By: Sharan Ayoub on 05-19-2023 Neutrophils/100 WBC (Bld) 47.7 % . [facility] No Panel InformationOrdered By: Leighton Reilly on 05-19-2023 Isaac-Fair Quant PCR Plasma log10 N/A [facility] No Panel InformationOrdered By: Sharan Ayoub on 05-19-2023 Estimated GFR (CKD-EPI) > 60.0 mL/Min [facility] Creatinine Clearance (Chem N/A [facility] Tacrolimus (Prograf) Level Sent to [facility] Nucleated erythrocytes [Pres ence] in Blood by Automated countOrdered By: Sharan Ayoub on 05-19-2023 Nucleated RBC Auto Ql (Bld) 0.2 /100{WBC} 0-0.5 [facility] Platelet mean volume Auto (B ld) [Entitic vol]Ordered By: Sharan Ayoub on 05-19-2023 Platelet mean volume (Bld) [Entitic vol] 11.0 fL 6.6-10.1 [facility] Platelets Auto (Bld) [#/Vol] Ordered By: Sharan Ayoub on 05-19-2023 Platelets (Bld) [#/Vol] 140 10*3/uL 150-450 [facility] Potassium [Moles/volume] in Serum or PlasmaOrdered By: Sharan Ayoub on 05-19-2023 Potassium [Moles/Vol] 3.9 mmol/L 3.5-5.1 [facility] Protein [Mass/volume] in Ser um or PlasmaOrdered By: Sharan Ayoub on 05-19-2023 Protein [Mass/Vol] 7.1 g/dL 6.4-8.9 [facility] RBC Auto (Bld) [#/Vol]Ordere d By: Sharan Ayoub on 05-19-2023 RBC (Bld) [#/Vol] 4.15 10*6/uL 3.90-5.60 [facility] Serum or plasma albumin/glob ulin mass ratioOrdered By: Sharan Ayoub on 05-19-2023 Albumin/Globulin [Mass ratio] 1.0 {ratio} [facility] Serum or plasma anion gap de terminationOrdered By: Sharan Ayoub on 05-19-2023 Anion gap [Moles/Vol] 9.8 mmol/L 6.0-15.0 [facility] Sodium [Moles/volume] in Ser um or PlasmaOrdered By: Sharan Ayoub on 05-19-2023 Sodium [Moles/Vol] 139 mmol/L 136-145 [facility] Urea nitrogen [Mass/volume] in Serum or PlasmaOrdered By: Sharan Ayoub on 05-19-2023 Urea nitrogen [Mass/Vol] 14 mg/dL 7-25 [facility] WBC Auto (Bld) [#/Vol]Ordere d By: Sharan Ayoub on 05-19-2023 WBC (Bld) [#/Vol] 4.7 10*3/uL 4.1-10.5 [facility] ID - Initial/Consulton 05-03 ID - Initial/Consult Chief Complaint Visit For: Other Consult requested by Dr. Ayoub Reason for consult: EBV viremia History of Present [id number] male patient with history of diabetes mellitus [...] Delayed Release; TAKE 1 TABLET DAILY; Therapy: (Recorded:[id number]) to Recorded Dispense: 0 Days ; #: Sufficient Tablet Delayed Release; Refill: 0;For: Health Maintenance; JOSEFINA = N; Record; Last Updated By: Kirsty Ott; 06/23/2016 9:09:44 AM Multi-Vitamins TABS; TAKE 1 TABLET DAILY; Therapy: 30Aug2017 to (Evaluate:[id number]) Recorded Dispense: 30 Days ; #:30 X 30 Tablet Bottle; Refill: 11;For: Health Maintenance; JOSEFINA = N; Record; Last Updated By: Nae Campos; 08/30/2017 10:24:55 AM Mycophenolate Mofetil 250 MG Oral Capsule; TAKE 1 CAPSULE BY MOUTH EVERY 12 HOURS; Therapy: 28Aug2017 to (Evaluate:[id number]) Requested for: 45Inu0870; Last Rx:[id number] Ordered Rx By: Sharan Ayoub; Dispense: 30 Days ; #:60 Capsule; Refill: 11;For: Immunosuppression, Liver replaced by transplant; JOSEFINA = N; Verified Transmission to [facility] #[id number] Formulary Override Reason: Drug is not indicated for Patient condition predniSONE 1 MG Oral Tablet; Take 1 tablet daily; Therapy: 25Jul2019 to (Evaluate:[id number]) Requested for: 28Feb2023 Recorded Rx By: Sharan Ayoub; Dispense: 30 Days ; #:30 Tablet; Refill: 11;For: Immunosuppression, Liver replaced by transplant; JOSEFINA = N; Record; Last Updated By: Nae Campos; 02/28/2023 3:48:37 PM Tacrolimus 1 MG Oral Capsule; take 1 capsule by mouth twice daily; Therapy: [id number] to (Evaluate:31Aug2023) Requested for: [id number]; Last Rx:[id number] Ordered Rx By: Sharan Ayoub; Dispense: 90 Days ; #:180 Capsule; Refill: 3;For: Immunosuppression, Liver replaced by transplant; JOSEFINA = N; Verified Transmission to [facility] #[id number]; Last Updated By: [employer]; 09/05/2022 8:39:18 AM amLODIPine Besylate 5 MG Oral Tablet; Take 1 tablet daily; Therapy: 31Jan2018 to (Evaluate:16Mar2023) Requested for: 28Mar2022; Last Rx:[id number] Ordered Rx By: Sharan Ayoub; Dispense: 30 Days ; #:30 Tablet; Refill: 11;For: Liver replaced by transplant; JOSEFINA = N; Verified Transmission to [facility] #[id number] Magnesium Oxide -Mg Supplement 400 (240 Mg) MG Oral Tablet; TAKE 1 TABLET BY MOUTH TWICE DAILY; Therapy: 31Jan2023 to (Evaluate:30Jul2023) Requested for: 31Jan2023; Last Rx:31Jan2023 Ordered Rx By: Marta (more content not included)... Normal [facility] Tobacco Screening.on 023 Fall risk assessment a) No falls within the last year [facility] [address] DO Work Phone: Tobacco use status [facility] b) No [facility] [address] DO Work Phone: TACROLIMUSon 04-25-2023 Tacrolimus (Bld) [Mass/Vol] 10.0 ng/mL Normal 2.0 - 15.0 [facility] Comment on above: Result Comment: NOTE : Result was obtained using a chemiluminescent microparticle immunoassay (CMIA) on the Tent Worker i system. Optimal therapeutic ranges for immuno- suppressant drugs depend upon an individual patient's current clinical state, type of organ transplant, time post-transplant, co-administration of other immunosuppressants, and other clinical factors. The results of this test should be correlated with additional clinical and laboratory data before changes in treatment regimens are made. Performed By: #### F K506 #### [facility] [address] [place] [address] Alanine aminotransferase [En zymatic activity/volume] in Serum or PlasmaOrdered By: Sharan Ayoub on 04-24-2023 ALT [Catalytic activity/Vol] 92 U/L 7- [facility] Albumin [Mass/volume] in Ser um or Plasma by Bromocresol green (BCG) dye binding methoOrdered By: Sharan Ayoub on 04-24-2023 Albumin BCG dye [Mass/Vol] 3.6 g/dL 3.5-5.7 [facility] Alkaline phosphatase [Enzyma tic activity/volume] in Serum or PlasmaOrdered By: Sharan Ayoub on 04-24-2023 ALP [Catalytic activity/Vol] 213 U/L 34-104 [facility] Aspartate aminotransferase [ Enzymatic activity/volume] in Serum or PlasmaOrdered By: Sharan Ayoub on 04-24-2023 AST [Catalytic activity/Vol] 102 U/L 13-39 [facility] Basophils Auto (Bld) [#/Vol] Ordered By: Sharan Ayoub on 04-24-2023 Basophils (Bld) [#/Vol] 0.0 10*3/uL 0.0-0.2 [facility] Basophils/100 WBC Auto (Bld) Ordered By: Sharan Ayoub on 04-24-2023 Basophils/100 WBC (Bld) 0.7 % . [facility] Bilirubin.total [Mass/volume ] in Serum or PlasmaOrdered By: Sharan Ayoub on 04-24-2023 Bilirubin [Mass/Vol] 1.5 mg/dL 0.3-1.0 [facility] Comment on above: Samples from patient s who have taken Naproxen have shown spurious elevation in Total Bilirubin levels. A metabolite of Naproxen, O-desmethylnaproxen, has been shown to interfere with the Harlan-Uriel method for measuring Total Bilirubin. Calcium [Mass/volume] in Ser um or PlasmaOrdered By: Sharan Ayoub on 04-24-2023 Calcium [Mass/Vol] 9.0 mg/dL 8.6-10.3 [facility] Carbon dioxide, total [Moles /volume] in Serum or PlasmaOrdered By: Sharan Ayoub on 04-24-2023 CO2 [Moles/Vol] 33.4 mmol/L 21.0-31.0 [facility] Chloride [Moles/volume] in S kasi or PlasmaOrdered By: Sharan Ayoub on 04-24-2023 Chloride [Moles/Vol] 101 mmol/L 98-107 [facility] Creatinine [Mass/volume] in Serum or PlasmaOrdered By: Sharan Ayoub on 04-24-2023 Creatinine [Mass/Vol] 1.07 mg/dL 0.70-1.30 [facility] Eosinophils Auto (Bld) [#/Vo l]Ordered By: Sharan Ayoub on 04-24-2023 Eosinophils (Bld) [#/Vol] 0.1 10*3/uL 0.0-0.45 [facility] Eosinophils/100 WBC Auto (Bl d)Ordered By: Sharan Ayoub on 04-24-2023 Eosinophils/100 WBC (Bld) 1.9 % . [facility] Erythrocyte distribution wid th Auto (RBC) [Ratio]Ordered By: Sharan Ayoub on 04-24-2023 Erythrocyte distribution width (RBC) [Ratio] 13.8 % 12.0-14.8 [facility] Globulin Calc (S) [Mass/Vol] Ordered By: Sharan Ayoub on 04-24-2023 Globulin (S) [Mass/Vol] 3.6 g/dL [facility] Glucose [Mass/volume] in Ser um or PlasmaOrdered By: Sharan Ayoub on 04-24-2023 Glucose [Mass/Vol] 317 mg/dL 70-100 [facility] Comment on above: ADA recommended refe rence rangeRandom Glucose Reference Range is dependent on time and content of last meal. Glucose of more than 200 mg/dL in a nonstressed, ambulatory subject supports the diagnosis of Diabetes Mellitus. Hematocrit Auto (Bld) [Volum e fraction]Ordered By: Sharan Ayoub on 04-24-2023 Hematocrit (Bld) [Volume fraction] 41.8 % 38.8-50.0 [facility] Hemoglobin [Mass/volume] in BloodOrdered By: Sharan Ayoub on 04-24-2023 Hemoglobin (Bld) [Mass/Vol] 14.0 g/dL 13.0-17.0 [facility] Leukocytes [#/volume] correc roderick for nucleated erythrocytes in Blood by Automated counOrdered By: Sharan Ayoub on 04-24-2023 WBC corrected for nucl RBC Auto (Bld) [#/Vol] 4.5 10*3/uL 4.1-10.5 [facility] Lymphocytes Auto (Bld) [#/Vo l]Ordered By: Sharan Ayoub on 04-24-2023 Lymphocytes (Bld) [#/Vol] 1.9 10*3/uL 1.00-4.8 [facility] Lymphocytes/100 WBC Auto (Bl d)Ordered By: Sharan Ayoub on 04-24-2023 Lymphocytes/100 WBC (Bld) 42.8 % . [facility] MCH Auto (RBC) [Entitic mass ]Ordered By: Sharan Ayoub on 04-24-2023 MCH (RBC) [Entitic mass] 31.2 pg 27.5-35.2 [facility] MCHC Auto (RBC) [Mass/Vol]Or dered By: Sharan Ayoub on 04-24-2023 MCHC (RBC) [Mass/Vol] 33.4 g/dL 32.5-35.6 [facility] MCV Auto (RBC) [Entitic vol] Ordered By: Sharan Ayoub on 04-24-2023 MCV (RBC) [Entitic vol] 93.2 fL 83.5-101 [facility] Monocytes Auto (Bld) [#/Vol] Ordered By: Sharan Ayoub on 04-24-2023 Monocytes (Bld) [#/Vol] 0.4 10*3/uL 0.0-0.8 [facility] Monocytes/100 WBC Auto (Bld) Ordered By: Sharan Ayoub on 04-24-2023 Monocytes/100 WBC (Bld) 8.2 % . [facility] Neutrophils Auto (Bld) [#/Vo l]Ordered By: Sharan Ayoub on 04-24-2023 Neutrophils (Bld) [#/Vol] 2.1 10*3/uL 1.8-7.7 [facility] Neutrophils/100 WBC Auto (Bl d)Ordered By: Sharan Ayoub on 04-24-2023 Neutrophils/100 WBC (Bld) 46.4 % . [facility] No Panel InformationOrdered By: Sharan Ayoub on 04-24-2023 Estimated GFR (CKD-EPI) > 60.0 mL/Min [facility] Creatinine Clearance (Chem N/A [facility] Tacrolimus (Prograf) Level Sent to [facility] Nucleated erythrocytes [Pres ence] in Blood by Automated countOrdered By: Sharan Ayoub on 04-24-2023 Nucleated RBC Auto Ql (Bld) 0.2 /100{WBC} 0-0.5 [facility] Platelet adequacy [Presence] in Blood by Light microscopyOrdered By: Sharan Ayoub on 04-24-2023 Platelets LM Ql (Bld) Decreased Normal [facility] Platelet mean volume Auto (B ld) [Entitic vol]Ordered By: Sharan Ayoub on 04-24-2023 Platelet mean volume (Bld) [Entitic vol] 11.3 fL 6.6-10.1 [facility] Platelet morphology finding [Identifier] in BloodOrdered By: Sharan Ayoub on 04-24-2023 Platelet morphology finding Nom (Bld) N/A [facility] Platelets Auto (Bld) [#/Vol] Ordered By: Sharan Ayoub on 04-24-2023 Platelets (Bld) [#/Vol] 142 10*3/uL 150-450 [facility] Potassium [Moles/volume] in Serum or PlasmaOrdered By: Sharan Ayoub on 04-24-2023 Potassium [Moles/Vol] 4.1 mmol/L 3.5-5.1 [facility] Protein [Mass/volume] in Ser um or PlasmaOrdered By: Sharan Ayoub on 04-24-2023 Protein [Mass/Vol] 7.2 g/dL 6.4-8.9 [facility] RBC Auto (Bld) [#/Vol]Ordere d By: Sharan Ayoub on 04-24-2023 RBC (Bld) [#/Vol] 4.48 10*6/uL 3.90-5.60 [facility] RBC morphologyOrdered By: Kanu Ayoub on 04-24-2023 RBC morphology finding Nom (Bld) Normal Normal [facility] Serum or plasma albumin/glob ulin mass ratioOrdered By: Sharan Ayoub on 04-24-2023 Albumin/Globulin [Mass ratio] 1.0 {ratio} [facility] Serum or plasma anion gap de terminationOrdered By: Sharan Ayoub on 04-24-2023 Anion gap [Moles/Vol] 7.7 mmol/L 6.0-15.0 [facility] Sodium [Moles/volume] in Ser um or PlasmaOrdered By: Sharan Ayoub on 04-24-2023 Sodium [Moles/Vol] 138 mmol/L 136-145 [facility] Tacrolimuson 04-24-2023 Tacrolimus (Bld) [Mass/Vol] 10.0 ng/mL 2.0 - 15.0 [facility] [address] DO Work Phone: Comment on above: NOTE: Result was obt ained using a chemiluminescent microparticle immunoassay (CMIA) on the Tent Worker i system.Optimal therapeutic ranges for immuno-suppressant drugs depend upon an individualpatient's current clinical state, type oforgan transplant, time post-transplant,co-administration of other immunosuppressants,and other clinical factors. The results ofthis test should be correlated with additionalclinical and laboratory data before changesin treatment regimens are made. Urea nitrogen [Mass/volume] in Serum or PlasmaOrdered By: Sharan Ayoub on 04-24-2023 Urea nitrogen [Mass/Vol] 17 mg/dL 7-25 [facility] WBC Auto (Bld) [#/Vol]Ordere d By: Sharan Ayoub on 04-24-2023 WBC (Bld) [#/Vol] 4.5 10*3/uL 4.1-10.5 [facility] TACROLIMUSon 04-04-2023 Tacrolimus (Bld) [Mass/Vol] 10.3 ng/mL Normal 2.0 - 15.0 [facility] Comment on above: Result Comment: NOTE : Result was obtained using a chemiluminescent microparticle immunoassay (CMIA) on the Tent Worker i system. Optimal therapeutic ranges for immuno- suppressant drugs depend upon an individual patient's current clinical state, type of organ transplant, time post-transplant, co-administration of other immunosuppressants, and other clinical factors. The results of this test should be correlated with additional clinical and laboratory data before changes in treatment regimens are made. Performed By: #### F K506 #### [facility] [address] [place] [address] Tacrolimuson 04-03-2023 Tacrolimus (Bld) [Mass/Vol] 10.3 ng/mL 2.0 - 15.0 [facility] [address] [facility] Work Phone: Comment on above: NOTE: Result was obt ained using a chemiluminescent microparticle immunoassay (CMIA) on the Tent Worker i system.Optimal therapeutic ranges for immuno-suppressant drugs depend upon an individualpatient's current clinical state, type oforgan transplant, time post-transplant,co-administration of other immunosuppressants,and other clinical factors. The results ofthis test should be correlated with additionalclinical and laboratory data before changesin treatment regimens are made. Alanine aminotransferase [En zymatic activity/volume] in Serum or PlasmaOrdered By: Sharan Ayoub on 03-28-2023 ALT [Catalytic activity/Vol] 93 U/L 7-52 [facility] Albumin [Mass/volume] in Ser um or Plasma by Bromocresol green (BCG) dye binding methoOrdered By: Sharan Ayoub on 03-28-2023 Albumin BCG dye [Mass/Vol] 3.6 g/dL 3.5-5.7 [facility] Alkaline phosphatase [Enzyma tic activity/volume] in Serum or PlasmaOrdered By: Sharan Ayoub on 03-28-2023 ALP [Catalytic activity/Vol] 215 U/L 34-104 [facility] Aspartate aminotransferase [ Enzymatic activity/volume] in Serum or PlasmaOrdered By: Sharan Ayoub on 03-28-2023 AST [Catalytic activity/Vol] 94 U/L 13-39 [facility] Basophils Auto (Bld) [#/Vol] Ordered By: Sharan Ayoub on 03-28-2023 Basophils (Bld) [#/Vol] N/A [facility] Basophils/100 WBC Auto (Bld) Ordered By: Sharan Ayoub on 03-28-2023 Basophils/100 WBC (Bld) N/A [facility] Basophils/100 WBC Manual cnt (Bld)Ordered By: Sharan Ayoub on 03-28-2023 Basophils/100 WBC (Bld) 1 % 0-2 [facility] Bilirubin.total [Mass/volume ] in Serum or PlasmaOrdered By: Sharan Ayoub on 03-28-2023 Bilirubin [Mass/Vol] 1.5 mg/dL 0.3-1.0 [facility] Comment on above: Samples from patient s who have taken Naproxen have shown spurious elevation in Total Bilirubin levels. A metabolite of Naproxen, O-desmethylnaproxen, has been shown to interfere with the Harlan-Uriel method for measuring Total Bilirubin. Calcium [Mass/volume] in Ser um or PlasmaOrdered By: Sharan Ayoub on 03-28-2023 Calcium [Mass/Vol] 9.0 mg/dL 8.6-10.3 [facility] Carbon dioxide, total [Moles /volume] in Serum or PlasmaOrdered By: Sharan Ayoub on 03-28-2023 CO2 [Moles/Vol] 25.8 mmol/L 21.0-31.0 [facility] Chloride [Moles/volume] in S kasi or PlasmaOrdered By: Sharan Ayoub on 03-28-2023 Chloride [Moles/Vol] 104 mmol/L 98-107 [facility] Creatinine [Mass/volume] in Serum or PlasmaOrdered By: Sharan Ayoub on 03-28-2023 Creatinine [Mass/Vol] 0.96 mg/dL 0.70-1.30 [facility] Eosinophils Auto (Bld) [#/Vo l]Ordered By: Sharan Ayoub on 03-28-2023 Eosinophils (Bld) [#/Vol] N/A [facility] Eosinophils/100 WBC Auto (Bl d)Ordered By: Sharan Ayoub on 03-28-2023 Eosinophils/100 WBC (Bld) N/A [facility] Eosinophils/100 WBC Manual c nt (Bld)Ordered By: Sharan Ayoub on 03-28-2023 Eosinophils/100 WBC (Bld) 3 % 1-3 [facility] Isaac Fair virus DNA [#/vo lume] (viral load) in Serum or Plasma by LÁZARO with probe dOrdered By: Sharan Ayoub on 03-28-2023 EBV DNA LÁZARO+probe [#/Vol] Negative Negative [facility] Comment on above: No EBV DNA detected. The linear range of this assay is 35 - 100,000,000 IU/mLPerformed at: [facility] [address] [place], [place] [id number] Director: Thierry Currie MD, Phone: [phone] Erythrocyte distribution wid th Auto (RBC) [Ratio]Ordered By: Sharan Ayoub on 03-28-2023 Erythrocyte distribution width (RBC) [Ratio] 13.7 % 12.0-14.8 [facility] Globulin Calc (S) [Mass/Vol] Ordered By: Sharan Ayoub on 03-28-2023 Globulin (S) [Mass/Vol] 3.3 g/dL [facility] Glucose [Mass/volume] in Ser um or PlasmaOrdered By: Sharan Ayoub on 03-28-2023 Glucose [Mass/Vol] 341 mg/dL 70-100 [facility] Comment on above: ADA recommended refe rence rangeRandom Glucose Reference Range is dependent on time and content of last meal. Glucose of more than 200 mg/dL in a nonstressed, ambulatory subject supports the diagnosis of Diabetes Mellitus. Hematocrit Auto (Bld) [Volum e fraction]Ordered By: Sharan Ayoub on 03-28-2023 Hematocrit (Bld) [Volume fraction] 42.3 % 38.8-50.0 [facility] Hemoglobin [Mass/volume] in BloodOrdered By: Sharan Ayoub on 03-28-2023 Hemoglobin (Bld) [Mass/Vol] 14.2 g/dL 13.0-17.0 [facility] Leukocytes [#/volume] correc roderick for nucleated erythrocytes in Blood by Automated counOrdered By: Sharan Ayoub on 03-28-2023 WBC corrected for nucl RBC Auto (Bld) [#/Vol] 5.4 10*3/uL 4.1-10.5 [facility] Lymphocytes Auto (Bld) [#/Vo l]Ordered By: Sharan Ayoub on 03-28-2023 Lymphocytes (Bld) [#/Vol] N/A [facility] Lymphocytes/100 WBC Auto (Bl d)Ordered By: Sharan Ayoub on 03-28-2023 Lymphocytes/100 WBC (Bld) N/A [facility] Lymphocytes/100 WBC Manual c nt (Bld)Ordered By: Sharan Ayoub on 03-28-2023 Lymphocytes/100 WBC (Bld) 38 % 18-42 [facility] MCH Auto (RBC) [Entitic mass ]Ordered By: Sharan Ayoub on 03-28-2023 MCH (RBC) [Entitic mass] 31.4 pg 27.5-35.2 [facility] MCHC Auto (RBC) [Mass/Vol]Or dered By: Sharan Ayoub on 03-28-2023 MCHC (RBC) [Mass/Vol] 33.6 g/dL 32.5-35.6 [facility] MCV Auto (RBC) [Entitic vol] Ordered By: Sharan Ayoub on 03-28-2023 MCV (RBC) [Entitic vol] 93.2 fL 83.5-101 [facility] Monocytes Auto (Bld) [#/Vol] Ordered By: Sharan Ayoub on 03-28-2023 Monocytes (Bld) [#/Vol] N/A [facility] Monocytes/100 WBC Auto (Bld) Ordered By: Sharan Ayoub on 03-28-2023 Monocytes/100 WBC (Bld) N/A [facility] Monocytes/100 WBC Manual cnt (Bld)Ordered By: Sharan Ayoub on 03-28-2023 Monocytes/100 WBC (Bld) 6 % 2-11 [facility] Neutrophils Auto (Bld) [#/Vo l]Ordered By: Sharan Ayoub on 03-28-2023 Neutrophils (Bld) [#/Vol] N/A [facility] Neutrophils/100 WBC Auto (Bl d)Ordered By: Sharan Ayoub on 03-28-2023 Neutrophils/100 WBC (Bld) N/A [facility] No Panel InformationOrdered By: Sharan Ayoub on 03-28-2023 Isaac-Fair Quant PCR Plasma log10 N/A [facility] Estimated GFR (CKD-EPI) > 60.0 mL/Min [facility] Creatinine Clearance (Chem N/A [facility] Tacrolimus (Prograf) Level Sent to [facility] Nucleated erythrocytes [Pres ence] in Blood by Automated countOrdered By: Sharan Ayoub on 03-28-2023 Nucleated RBC Auto Ql (Bld) N/A [facility] Platelet adequacy [Presence] in Blood by Light microscopyOrdered By: Sharan Ayoub on 03-28-2023 Platelets LM Ql (Bld) Normal Normal [facility] Platelet mean volume Auto (B ld) [Entitic vol]Ordered By: Sharan Ayoub on 03-28-2023 Platelet mean volume (Bld) [Entitic vol] 11.2 fL 6.6-10.1 [facility] Platelet morphology finding [Identifier] in BloodOrdered By: Sharan Ayoub on 03-28-2023 Platelet morphology finding Nom (Bld) N/A [facility] Platelets Auto (Bld) [#/Vol] Ordered By: Sharan Ayoub on 03-28-2023 Platelets (Bld) [#/Vol] 157 10*3/uL 150-450 [facility] Potassium [Moles/volume] in Serum or PlasmaOrdered By: Sharan Ayoub on 03-28-2023 Potassium [Moles/Vol] 3.7 mmol/L 3.5-5.1 [facility] Protein [Mass/volume] in Ser um or PlasmaOrdered By: Sharan Ayoub on 03-28-2023 Protein [Mass/Vol] 6.9 g/dL 6.4-8.9 [facility] RBC Auto (Bld) [#/Vol]Ordere d By: Sharan Ayoub on 03-28-2023 RBC (Bld) [#/Vol] 4.54 10*6/uL 3.90-5.60 [facility] RBC morphologyOrdered By: Kanu Ayoub on 03-28-2023 RBC morphology finding Nom (Bld) N/A [facility] Red blood cell stomatocyte d etectionOrdered By: Sharan Ayoub on 03-28-2023 Stomatocytes LM Ql (Bld) Slight [facility] Segmented neutrophils/100 WB C Manual cnt (Bld)Ordered By: Sharan Ayoub on 03-28-2023 Segmented neutrophils/100 WBC (Bld) 50 % 50-70 [facility] Serum or plasma albumin/glob ulin mass ratioOrdered By: Sharan Ayoub on 03-28-2023 Albumin/Globulin [Mass ratio] 1.1 {ratio} [facility] Serum or plasma anion gap de terminationOrdered By: Sharan Ayoub on 03-28-2023 Anion gap [Moles/Vol] 11.9 mmol/L 6.0-15.[address] [facility] Sodium [Moles/volume] in Ser um or PlasmaOrdered By: Sharan Ayoub on 03-28-2023 Sodium [Moles/Vol] 138 mmol/L 136-145 [facility] Toxic leukocyte vacuolation detectionOrdered By: Sharan Ayoub on 03-28-2023 Leukocyte toxic vacuoles LM Ql (Bld) Slight [facility] Urea nitrogen [Mass/volume] in Serum or PlasmaOrdered By: Sharan Ayoub on 03-28-2023 Urea nitrogen [Mass/Vol] 16 mg/dL 7-25 [facility] Variant lymphocytes/100 WBC Manual cnt (Bld)Ordered By: Sharan Ayoub on 03-28-2023 Variant lymphocytes/100 WBC (Bld) 2 % 0-12 [facility] WBC Auto (Bld) [#/Vol]Ordere d By: Sharan Ayoub on 03-28-2023 WBC (Bld) [#/Vol] 5.4 10*3/uL 4.1-10.5 [facility] TACROLIMUSon 03-18-2023 Tacrolimus (Bld) [Mass/Vol] 11.5 ng/mL Normal 2.0 - 15.0 [facility] Comment on above: Result Comment: NOTE : Result was obtained using a chemiluminescent microparticle immunoassay (CMIA) on the Tent Worker i system. Optimal therapeutic ranges for immuno- suppressant drugs depend upon an individual patient's current clinical state, type of organ transplant, time post-transplant, co-administration of other immunosuppressants, and other clinical factors. The results of this test should be correlated with additional clinical and laboratory data before changes in treatment regimens are made. Performed By: #### F [id number] #### [facility] [address] [place] [address] Alanine aminotransferase [En zymatic activity/volume] in Serum or PlasmaOrdered By: Sharan Ayoub on 03-17-2023 ALT [Catalytic activity/Vol] 80 U/L 7-52 [facility] Albumin [Mass/volume] in Ser um or Plasma by Bromocresol green (BCG) dye binding methoOrdered By: Sharan Ayoub on 03-17-2023 Albumin BCG dye [Mass/Vol] 3.8 g/dL 3.5-5.7 [facility] Alkaline phosphatase [Enzyma tic activity/volume] in Serum or PlasmaOrdered By: Sharan Ayoub on 03-17-2023 ALP [Catalytic activity/Vol] 208 U/L 34-104 [facility] Aspartate aminotransferase [ Enzymatic activity/volume] in Serum or PlasmaOrdered By: Sharan Ayoub on 03-17-2023 AST [Catalytic activity/Vol] 63 U/L 13-39 [facility] Basophils Auto (Bld) [#/Vol] Ordered By: Sharan Ayoub on 03-17-2023 Basophils (Bld) [#/Vol] 0.1 10*3/uL 0.0-0.2 [facility] Basophils/100 WBC Auto (Bld) Ordered By: Sharan Ayoub on 03-17-2023 Basophils/100 WBC (Bld) 1.4 % . [facility] Bilirubin.total [Mass/volume ] in Serum or PlasmaOrdered By: Sharan Ayoub on 03-17-2023 Bilirubin [Mass/Vol] 1.6 mg/dL 0.3-1.0 [facility] Comment on above: Samples from patient s who have taken Naproxen have shown spurious elevation in Total Bilirubin levels. A metabolite of Naproxen, O-desmethylnaproxen, has been shown to interfere with the Harlan-Uriel method for measuring Total Bilirubin. Calcium [Mass/volume] in Ser um or PlasmaOrdered By: Sharan Ayoub on 03-17-2023 Calcium [Mass/Vol] 9.1 mg/dL 8.6-10.3 [facility] Carbon dioxide, total [Moles /volume] in Serum or PlasmaOrdered By: Sharan Ayoub on 03-17-2023 CO2 [Moles/Vol] 31.4 mmol/L 21.0-31.0 [facility] Chloride [Moles/volume] in S kasi or PlasmaOrdered By: Sharan Ayoub on 03-17-2023 Chloride [Moles/Vol] 101 mmol/L 98-107 [facility] Creatinine [Mass/volume] in Serum or PlasmaOrdered By: Sharan Ayoub on 03-17-2023 Creatinine [Mass/Vol] 0.94 mg/dL 0.70-1.30 [facility] Eosinophils Auto (Bld) [#/Vo l]Ordered By: Sharan Ayoub on 03-17-2023 Eosinophils (Bld) [#/Vol] 0.1 10*3/uL 0.0-0.45 [facility] Eosinophils/100 WBC Auto (Bl d)Ordered By: Sharan Ayoub on 03-17-2023 Eosinophils/100 WBC (Bld) 2.0 % . [facility] Erythrocyte distribution wid th Auto (RBC) [Ratio]Ordered By: Sharan Ayoub on 03-17-2023 Erythrocyte distribution width (RBC) [Ratio] 13.7 % 12.0-14.8 [facility] Globulin Calc (S) [Mass/Vol] Ordered By: Sharan Ayoub on 03-17-2023 Globulin (S) [Mass/Vol] 3.1 g/dL [facility] Glucose [Mass/volume] in Ser um or PlasmaOrdered By: Sharan Ayoub on 03-17-2023 Glucose [Mass/Vol] 276 mg/dL 70-100 [facility] Comment on above: ADA recommended refe rence rangeRandom Glucose Reference Range is dependent on time and content of last meal. Glucose of more than 200 mg/dL in a nonstressed, ambulatory subject supports the diagnosis of Diabetes Mellitus. Hematocrit Auto (Bld) [Volum e fraction]Ordered By: Sharan Ayoub on 03-17-2023 Hematocrit (Bld) [Volume fraction] 39.0 % 38.8-50.0 [facility] Hemoglobin [Mass/volume] in BloodOrdered By: Sharan Ayoub on 03-17-2023 Hemoglobin (Bld) [Mass/Vol] 13.2 g/dL 13.0-17.0 [facility] Leukocytes [#/volume] correc roderick for nucleated erythrocytes in Blood by Automated counOrdered By: Sharan Ayoub on 03-17-2023 WBC corrected for nucl RBC Auto (Bld) [#/Vol] 4.7 10*3/uL 4.1-10.5 [facility] Lymphocytes Auto (Bld) [#/Vo l]Ordered By: Sharan Ayoub on 03-17-2023 Lymphocytes (Bld) [#/Vol] 1.7 10*3/uL 1.00-4.8 [facility] Lymphocytes/100 WBC Auto (Bl d)Ordered By: Sharan Ayoub on 03-17-2023 Lymphocytes/100 WBC (Bld) 36.8 % . [facility] MCH Auto (RBC) [Entitic mass ]Ordered By: Sharan Ayoub on 03-17-2023 MCH (RBC) [Entitic mass] 31.4 pg 27.5-35.2 [facility] MCHC Auto (RBC) [Mass/Vol]Or dered By: Sharan Ayoub on 03-17-2023 MCHC (RBC) [Mass/Vol] 33.8 g/dL 32.5-35.6 [facility] MCV Auto (RBC) [Entitic vol] Ordered By: Sharan Ayoub on 03-17-2023 MCV (RBC) [Entitic vol] 92.9 fL 83.5-101 [facility] Monocytes Auto (Bld) [#/Vol] Ordered By: Sharan Ayoub on 03-17-2023 Monocytes (Bld) [#/Vol] 0.4 10*3/uL 0.0-0.8 [facility] Monocytes/100 WBC Auto (Bld) Ordered By: Sharan Ayoub on 03-17-2023 Monocytes/100 WBC (Bld) 8.8 % . [facility] Neutrophils Auto (Bld) [#/Vo l]Ordered By: Sharan Ayoub on 03-17-2023 Neutrophils (Bld) [#/Vol] 2.4 10*3/uL 1.8-7.7 [facility] Neutrophils/100 WBC Auto (Bl d)Ordered By: Sharan Ayoub on 03-17-2023 Neutrophils/100 WBC (Bld) 51.0 % . [facility] No Panel InformationOrdered By: Sharan Ayoub on 03-17-2023 Estimated GFR (CKD-EPI) > 60.0 mL/Min [facility] Creatinine Clearance (Chem N/A [facility] Tacrolimus (Prograf) Level Sent to [facility] Nucleated erythrocytes [Pres ence] in Blood by Automated countOrdered By: Sharan Ayoub on 03-17-2023 Nucleated RBC Auto Ql (Bld) 0.0 /100{WBC} 0-0.5 [facility] Platelet adequacy [Presence] in Blood by Light microscopyOrdered By: Sharan Ayoub on 03-17-2023 Platelets LM Ql (Bld) Normal Normal [facility] Platelet mean volume Auto (B ld) [Entitic vol]Ordered By: Sharan Ayoub on 03-17-2023 Platelet mean volume (Bld) [Entitic vol] 11.5 fL 6.6-10.1 [facility] Platelet morphology finding [Identifier] in BloodOrdered By: Sharan Ayoub on 03-17-2023 Platelet morphology finding Nom (Bld) Normal Normal [facility] Platelets Auto (Bld) [#/Vol] Ordered By: Sharan Ayoub on 03-17-2023 Platelets (Bld) [#/Vol] 145 10*3/uL 150-450 [facility] Potassium [Moles/volume] in Serum or PlasmaOrdered By: Sharan Ayoub on 03-17-2023 Potassium [Moles/Vol] 4.2 mmol/L 3.5-5.1 [facility] Protein [Mass/volume] in Ser um or PlasmaOrdered By: Sharan Ayoub on 03-17-2023 Protein [Mass/Vol] 6.9 g/dL 6.4-8.9 [facility] RBC Auto (Bld) [#/Vol]Ordere d By: Sharan Ayoub on 03-17-2023 RBC (Bld) [#/Vol] 4.19 10*6/uL 3.90-5.60 [facility] RBC morphologyOrdered By: Kanu mendozaally Mega on 03-17-2023 RBC morphology finding Nom (Bld) Normal Normal [facility] Serum or plasma albumin/glob ulin mass ratioOrdered By: Sharan Ayoub on 03-17-2023 Albumin/Globulin [Mass ratio] 1.2 {ratio} [facility] Serum or plasma anion gap de terminationOrdered By: Sharan Ayoub on 03-17-2023 Anion gap [Moles/Vol] 9.8 mmol/L 6.0-15.0 [facility] Sodium [Moles/volume] in Ser um or PlasmaOrdered By: Sharan Ayoub on 03-17-2023 Sodium [Moles/Vol] 138 mmol/L 136-145 [facility] Tacrolimuson 03-17-2023 Tacrolimus (Bld) [Mass/Vol] 11.5 ng/mL 2.0 - 15.0 [facility]-Gastroen terology-We [facility] [address] [facility] Work Phone: Comment on above: NOTE: Result was obt ained using a chemiluminescent microparticle immunoassay (CMIA) on the Tent Worker i system.Optimal therapeutic ranges for immuno-suppressant drugs depend upon an individualpatient's current clinical state, type oforgan transplant, time post-transplant,co-administration of other immunosuppressants,and other clinical factors. The results ofthis test should be correlated with additionalclinical and laboratory data before changesin treatment regimens are made. Urea nitrogen [Mass/volume] in Serum or PlasmaOrdered By: Sharan Ayoub on 03-17-2023 Urea nitrogen [Mass/Vol] 15 mg/dL 7-25 [facility] WBC Auto (Bld) [#/Vol]Ordere d By: Sharan Ayoub on 03-17-2023 WBC (Bld) [#/Vol] 4.7 10*3/uL 4.1-10.5 [facility] TACROLIMUSon 02-21-2023 Tacrolimus (Bld) [Mass/Vol] 8.9 ng/mL Normal 2.0 - 15.0 [facility] Comment on above: Result Comment: NOTE : Result was obtained using a chemiluminescent microparticle immunoassay (CMIA) on the Tent Worker i system. Optimal therapeutic ranges for immuno- suppressant drugs depend upon an individual patient's current clinical state, type of organ transplant, time post-transplant, co-administration of other immunosuppressants, and other clinical factors. The results of this test should be correlated with additional clinical and laboratory data before changes in treatment regimens are made. Performed By: #### F K506 #### [facility] [address] [place] [address] Alanine aminotransferase [En zymatic activity/volume] in Serum or PlasmaOrdered By: Sharan Ayoub on 02-20-2023 ALT [Catalytic activity/Vol] 108 U/L 7-52 [facility] Albumin [Mass/volume] in Ser um or Plasma by Bromocresol green (BCG) dye binding methoOrdered By: Sharan Ayoub on 02-20-2023 Albumin BCG dye [Mass/Vol] 3.6 g/dL 3.5-5.7 [facility] Alkaline phosphatase [Enzyma tic activity/volume] in Serum or PlasmaOrdered By: Sharan Ayoub on 02-20-2023 ALP [Catalytic activity/Vol] 219 U/L 34-104 [facility] Aspartate aminotransferase [ Enzymatic activity/volume] in Serum or PlasmaOrdered By: Sharan Ayoub on 02-20-2023 AST [Catalytic activity/Vol] 92 U/L 13-39 [facility] Basophils Auto (Bld) [#/Vol] Ordered By: Sharan Ayoub on 02-20-2023 Basophils (Bld) [#/Vol] 0.1 10*3/uL 0.0-0.2 [facility] Basophils/100 WBC Auto (Bld) Ordered By: Sharan Ayoub on 02-20-2023 Basophils/100 WBC (Bld) 1.1 % . [facility] Bilirubin.total [Mass/volume ] in Serum or PlasmaOrdered By: Sharan Ayoub on 02-20-2023 Bilirubin [Mass/Vol] 1.2 mg/dL 0.3-1.0 [facility] Calcium [Mass/volume] in Ser um or PlasmaOrdered By: Sharan Ayoub on 02-20-2023 Calcium [Mass/Vol] 9.0 mg/dL 8.6-10.3 [facility] Carbon dioxide, total [Moles /volume] in Serum or PlasmaOrdered By: Sharan Ayoub on 02-20-2023 CO2 [Moles/Vol] 29.8 mmol/L 21.0-31.0 [facility] Chloride [Moles/volume] in S kasi or PlasmaOrdered By: Sharan Ayoub on 02-20-2023 Chloride [Moles/Vol] 101 mmol/L 98-107 [facility] Creatinine [Mass/volume] in Serum or PlasmaOrdered By: Sharan Ayoub on 02-20-2023 Creatinine [Mass/Vol] 0.93 mg/dL 0.70-1.30 [facility] Cytomegalovirus DNA [Units/v olume] (viral load) in Plasma by LÁZARO with probe detectionOrdered By: Sharan Ayoub on 02-20-2023 CMV DNA LÁZARO+probe Qn (P) Negative Negative [facility] Comment on above: No CMV DNA detected. The quantitative range of this assay is 200 to 1 millionIU/mL. Eosinophils Auto (Bld) [#/Vo l]Ordered By: Sharan Ayoub on 02-20-2023 Eosinophils (Bld) [#/Vol] 0.0 10*3/uL 0.0-0.45 [facility] Eosinophils/100 WBC Auto (Bl d)Ordered By: Sharan Ayoub on 02-20-2023 Eosinophils/100 WBC (Bld) 0.6 % . [facility] Erythrocyte distribution wid th Auto (RBC) [Ratio]Ordered By: Sharan Ayoub on 02-20-2023 Erythrocyte distribution width (RBC) [Ratio] 13.5 % 12.0-14.8 [facility] Gamma glutamyl transferase [ Enzymatic activity/volume] in Serum or PlasmaOrdered By: Sharan Ayoub on 02-20-2023 Gamma glutamyl transferase [Catalytic activity/Vol] 719 U/L 9-64 [facility] Globulin Calc (S) [Mass/Vol] Ordered By: Sharan Ayoub on 02-20-2023 Globulin (S) [Mass/Vol] 3.3 g/dL [facility] Glucose [Mass/volume] in Ser um or PlasmaOrdered By: Sharan Ayoub on 02-20-2023 Glucose [Mass/Vol] 189 mg/dL 70-100 [facility] Comment on above: ADA recommended refe rence rangeRandom Glucose Reference Range is dependent on time and content of last meal. Glucose of more than 200 mg/dL in a nonstressed, ambulatory subject supports the diagnosis of Diabetes Mellitus. Hematocrit Auto (Bld) [Volum e fraction]Ordered By: Sharan Ayoub on 02-20-2023 Hematocrit (Bld) [Volume fraction] 42.0 % 38.8-50.0 [facility] Hemoglobin [Mass/volume] in BloodOrdered By: Sharan Ayoub on 02-20-2023 Hemoglobin (Bld) [Mass/Vol] 14.0 g/dL 13.0-17.0 [facility] Leukocytes [#/volume] correc roderick for nucleated erythrocytes in Blood by Automated counOrdered By: Sharan Ayoub on 02-20-2023 WBC corrected for nucl RBC Auto (Bld) [#/Vol] 6.2 10*3/uL 4.1-10.5 [facility] Lymphocytes Auto (Bld) [#/Vo l]Ordered By: Sharan Ayoub on 02-20-2023 Lymphocytes (Bld) [#/Vol] 1.9 10*3/uL 1.00-4.8 [facility] Lymphocytes/100 WBC Auto (Bl d)Ordered By: Sharan Ayoub on 02-20-2023 Lymphocytes/100 WBC (Bld) 31.3 % . [facility] MCH Auto (RBC) [Entitic mass ]Ordered By: Sharan Ayoub on 02-20-2023 MCH (RBC) [Entitic mass] 30.8 pg 27.5-35.2 [facility] MCHC Auto (RBC) [Mass/Vol]Or dered By: Sharan Ayoub on 02-20-2023 MCHC (RBC) [Mass/Vol] 33.3 g/dL 32.5-35.6 [facility] MCV Auto (RBC) [Entitic vol] Ordered By: Sharan Ayoub on 02-20-2023 MCV (RBC) [Entitic vol] 92.6 fL 83.5-101 [facility] Monocytes Auto (Bld) [#/Vol] Ordered By: Sharan Ayoub on 02-20-2023 Monocytes (Bld) [#/Vol] 0.4 10*3/uL 0.0-0.8 [facility] Monocytes/100 WBC Auto (Bld) Ordered By: Sharan Ayoub on 02-20-2023 Monocytes/100 WBC (Bld) 6.7 % . [facility] Neutrophils Auto (Bld) [#/Vo l]Ordered By: Sharan Ayoub on 02-20-2023 Neutrophils (Bld) [#/Vol] 3.8 10*3/uL 1.8-7.7 [facility] Neutrophils/100 WBC Auto (Bl d)Ordered By: Sharan Ayoub on 02-20-2023 Neutrophils/100 WBC (Bld) 60.3 % . [facility] No Panel InformationOrdered By: Sharan Ayoub on 02-20-2023 Tacrolimus (Prograf) Level Sent to [facility] CMV DNA Quant PCR log IU/mL See comment . [facility] Comment on above: Result Units: log10 IU/mLUnable to calculate result since non-numeric resultobtained for component test.Performed at: [facility] [id number] Director: Thierry Currie MD, Phone: [phone] Isaac-Fair DNA, Quant (PCR) log10 3.759 . [facility] Comment on above: Result Units: log10c opy/mLPerformed at: [facility] [id number] Director: Thierry Currie MD, Phone: [phone] Estimated GFR (CKD-EPI) > 60.0 mL/Min [facility] Creatinine Clearance (Chem N/A [facility] Nucleated erythrocytes [Pres ence] in Blood by Automated countOrdered By: Sharan Ayoub on 02-20-2023 Nucleated RBC Auto Ql (Bld) 0.1 /100{WBC} 0-0.5 [facility] Platelet mean volume Auto (B ld) [Entitic vol]Ordered By: Sharan Ayoub on 02-20-2023 Platelet mean volume (Bld) [Entitic vol] 10.1 fL 6.6-10.1 [facility] Platelets Auto (Bld) [#/Vol] Ordered By: Sharan Ayoub on 02-20-2023 Platelets (Bld) [#/Vol] 162 10*3/uL 150-450 [facility] Potassium [Moles/volume] in Serum or PlasmaOrdered By: Sharan Ayoub on 02-20-2023 Potassium [Moles/Vol] 4.3 mmol/L 3.5-5.1 [facility] Protein [Mass/volume] in Ser um or PlasmaOrdered By: Sharan Ayoub on 02-20-2023 Protein [Mass/Vol] 6.9 g/dL 6.4-8.9 [facility] RBC Auto (Bld) [#/Vol]Ordere d By: Sharan Ayoub on 02-20-2023 RBC (Bld) [#/Vol] 4.53 10*6/uL 3.90-5.60 [facility] Serum Isaac Fair virus cap rosemary IgG antibody assay (units/volume)Ordered By: Sharan Ayoub on 02-20-2023 EBV capsid IgG Qn (S) [arb'U]/mL 0.0-17.9 [facility] Comment on above: Negative <18.0 Equiv ocal 18.0 - 21.9 Positive >21.9 EBV capsid IgG Qn (S) [arb'U]/mL 0.0-35.9 [facility] Comment on above: Negative <36.0 Equiv ocal 36.0 - 43.9 Positive >43.9 Serum Isaac Fair virus nuc lear IgG antibody assay (units/volume)Ordered By: Sharan Ayoub on 02-20-2023 EBV nuclear IgG Qn (S) 48.3 U/mL 0.0-17.9 [facility] Comment on above: Negative <18.0 Equiv ocal 18.0 - 21.9 Positive >21.9 Serum cytomegalovirus IgG an tibody assay by immunoassay (units/volume)Ordered By: Sharan Ayoub on 02-20-2023 CMV IgG IA Qn >10.00 U/mL 0.00-0.59 [facility] Comment on above: Negative <0.60 Equiv ocal 0.60 - 0.69 Positive >0.69 Serum cytomegalovirus IgM an tibody assay by immunoassay (units/volume)Ordered By: Sharan Ayoub on 02-20-2023 CMV IgM IA Qn <30.0 AU/mL 0.0-29.9 [facility] Comment on above: Negative <30.0 Equiv ocal 30.0 - 34.9 Positive >34.9A positive result is generally indicative of acuteinfection, reactivation or persistent IgM production.Performed at: [facility] [place], [place] [id number] Director: Surendra Hall PhD, Phone: [phone] Serum or plasma albumin/glob ulin mass ratioOrdered By: Sharan Ayoub on 02-20-2023 Albumin/Globulin [Mass ratio] 1.1 {ratio} [facility] Serum or plasma anion gap de terminationOrdered By: Sharan Ayoub on 02-20-2023 Anion gap [Moles/Vol] 10.5 mmol/L 6.0-15.[address] [facility] Service commentOrdered By: Misha Ayoub on 02-20-2023 Service comment (Unsp spec) [Interp] See comment . [facility] Comment on above: EBV Interpretation C ninfaKey: Antibody Present + Antibody Absent -Interpretation VCA-IgM [...] EBV never develop antibodies to EBNA.Performed at: [facility], [place], [place] [id number] Director: Surendra Hall PhD, Phone: [phone] Sodium [Moles/volume] in Ser um or PlasmaOrdered By: Sharan Ayoub on 02-20-2023 Sodium [Moles/Vol] 137 mmol/L 136-145 [facility] Tacrolimuson 02-20-2023 Tacrolimus (Bld) [Mass/Vol] 8.9 ng/mL 2.0 - 15.0 [facility] [place] [address] Work Phone: Comment on above: NOTE: Result was obt ained using a chemiluminescent microparticle immunoassay (CMIA) on the Tent Worker i system.Optimal therapeutic ranges for immuno-suppressant drugs depend upon an individualpatient's current clinical state, type oforgan transplant, time post-transplant,co-administration of other immunosuppressants,and other clinical factors. The results ofthis test should be correlated with additionalclinical and laboratory data before changesin treatment regimens are made. Urea nitrogen [Mass/volume] in Serum or PlasmaOrdered By: Sharan Ayoub on 02-20-2023 Urea nitrogen [Mass/Vol] 15 mg/dL 7-25 [facility] WBC Auto (Bld) [#/Vol]Ordere d By: Sharan Ayoub on 02-20-2023 WBC (Bld) [#/Vol] 6.2 10*3/uL 4.1-10.5 [facility] Whole blood quantitative Eps tein-Fair virus (EBV) DNA assay by PCROrdered By: Sharan Ayoub on 02-20-2023 EBV DNA LÁZARO+probe (Bld) [#/Vol] 5743 copies/mL Negative [facility] Comment on above: The quantitative ran ge of this assay is 100 to 1 millioncopies/mL.This test was developed and its performance characteristicsdetermined by [employer]. It has not been cleared or approvedby the Food and Drug Administration. The FDA hasdetermined that such clearance or approval is notnecessary. SURGICAL PATHOLOGY RESULTSon 02-16-2023 Pathology Report Name JESSICA GIRON ROB Pathologist: MOR COWART M.D., PhD. Date of Procedure: 02/03/2023 Date [...] the differential diagnosis. Electronically Signed Out By MOR COWART M.D., PhD./WLI By the signature on this report, the individual or group listed as making the Final Interpretation/Diagnosis certifies that they have reviewed this case. Diagnostic interpretation performed at [facility], [place], operated by [facility] [address] [facility] [address] Addendum/Procedures: Addendum Date Ordered: 02/21/2023 Status: Signed Out Date Complete: 02/21/2023 Date Reported: 02/21/2023 Addendum Diagnosis In Situ Hybridization for NISHI is negative.A. By the signature on this report, the individual or group listed as making the Final Interpretation/Diagnosis certifies that they have reviewed this case. Addendum signed out at [facility], [place], operated by [facility] [address] [facility] [address]. Addendum Date Ordered: 05/15/2023 Status: Signed Out Date Complete: 05/15/2023 Date Reported: 05/15/2023 Addendum Diagnosis Immunostains for CMV and HSV demonstrate no viral inclusions. By the signature on this report, the individual or group listed as making the Final Interpretation/Diagnosis certifies that they have reviewed this case. Addendum signed out at [facility], [place], operated [facility] [address] [facility] [address]. Clinical History: Liver transplant April 2016 Specimens [...] the Department of Pathology Immunohistochemistry Labs at [facility]. The FDA does not require [...] positive and negative controls which stained appropriately. [facility] Department of Pathology [address] [place] [address] [place] Guidance for biopsy of Ami mattson 02-04-2023 Status post ultrasou nd guided core needle biopsy of transplanted liver. Specimen(s) Sent to pathology. I was present for and/or performed the critical portions of the procedure and immediately available throughout the entire procedure. I personally reviewed the image(s) / study and interpretation. I agree with the findings as stated. Performed and dictated at [facility]. [facility] Interpreted By: ТАТЬЯНА EID MD and BUSHRA BARCENAS MD Patient Name: LULY GIRON STUDY: US BIOPSY LIVER PER; 02/03/2023 8:33 am INDICATION: s/p liver transplant, elevated LFT's, ultrasound last week normal Z94.4: Liver replaced by transplant R79.89: Elevated LFTs. COMPARISON: None. ACCESSION NUMBER(S): [id number] ORDERING CLINICIAN: SHARAN AYOUB TECHNIQUE: INTERVENTIONALIST(S): Dr. [...] no immediate complications. Specimen(s) sent to pathology. [facility] Татьяна Eid MD - 02/04/2023 Interpreted By: ТАТЬЯНА EID MD and BUSHRA BARCENAS MD Patient Name: LULY GIRON STUDY: US BIOPSY LIVER PER; 02/03/2023 8:33 am INDICATION: s/p liver transplant, elevated LFT's, ultrasound last week normal Z94.4: Liver replaced by transplant R79.89: Elevated LFTs. COMPARISON: None. ACCESSION NUMBER(S): [id number] ORDERING CLINICIAN: SHARAN AYOUB TECHNIQUE: INTERVENTIONALIST(S): Dr. [...] findings as stated. Performed and dictated at [facility]. [facility] Work Phone: US Guidance for biopsy of Li verOrdered By: Татьяна Eid on 02-04-2023 [facility] Work Phone: No Panel Informationon 02-03 [facility] [place] [address] [facility] Work Phone: Radiologyon 02-03-2023 US Guidance for fine needle aspiration of Liver Normal [facility] [place] [address] [facility] Work Phone: [facility] Surgical Pathology Depar tmenton 02-03-2023 [facility] Surgical Pathology Department Name LULY GIRON Pathologist: MOR COWART M.D., PhD. Date of Procedure: 02/03/2023 Date [...] the differential diagnosis. Electronically Signed Out By MOR COWART M.D., PhD./WLI By the signature on this report, the individual or group listed as making the Final Interpretation/Diagnosis certifies that they have reviewed this case. Diagnostic interpretation performed at [facility], [place], operated by [facility] [address] [facility] [address] Addendum/Procedures: Addendum Date Ordered: 02/21/2023 Status: Signed Out Date Complete: 02/21/2023 Date Reported: 02/21/2023 Addendum Diagnosis In Situ Hybridization for NISHI is negative.A. By the signature on this report, the individual or group listed as making the Final Interpretation/Diagnosis certifies that they have reviewed this case. Addendum signed out at [facility], [place], operated by [facility] [address] [facility] [address]. Addendum Date Ordered: 05/15/2023 Status: Signed Out Date Complete: 05/15/2023 Date Reported: 05/15/2023 Addendum Diagnosis Immunostains for CMV and HSV demonstrate no viral inclusions. By the signature on this report, the individual or group listed as making the Final Interpretation/Diagnosis certifies that they have reviewed this case. Addendum signed out at [address] [place] [address]. Clinical History: Liver transplant April 2016 Specimens [...] the Department of Pathology Immunohistochemistry Labs at [facility]. The FDA does not require [...] positive and negative controls which stained appropriately. [facility] Department of Pathology [address] [place] [address] Normal [facility] Comment on above: Performed By: #### F [id number] #### [address] [place] [address] US BIOPSY LIVER PERon 2022 US BIOPSY LIVER PER Patient Name: LULY GIRON STUDY: US BIOPSY LIVER PER; 02/03/2023 8:33 am INDICATION: s/p liver transplant, elevated LFT's, ultrasound last week normal Z94.4: Liver replaced by transplant R79.89: Elevated LFTs. COMPARISON: None. ACCESSION NUMBER(S): [id number] ORDERING CLINICIAN: SHARAN AYOUB TECHNIQUE: INTERVENTIONALIST(S): Dr. [...] findings as stated. Performed and dictated at [facility]. Electronically signed by: ТАТЬЯНА EID MD Normal [facility] US Guidance for biopsy of Li srinivasan 02-03-2023 Radiology Study observation (narrative) [facility] Work Phone: TACROLIMUSon 01-28-2023 Tacrolimus (Bld) [Mass/Vol] 7.3 ng/mL Normal 2.0 - 15.0 [facility] Comment on above: Result Comment: NOTE : Result was obtained using a chemiluminescent microparticle immunoassay (CMIA) on the [employer] i system. Optimal therapeutic ranges for immuno- suppressant drugs depend upon an individual patient's current clinical state, type of organ transplant, time post-transplant, co-administration of other immunosuppressants, and other clinical factors. The results of this test should be correlated with additional clinical and laboratory data before changes in treatment regimens are made. Performed By: #### F K506 #### [facility] [address] [place] [address] Alanine aminotransferase [En zymatic activity/volume] in Serum or PlasmaOrdered By: Sharan Ayoub on 01-27-2023 ALT [Catalytic activity/Vol] 91 U/L 7-52 [facility] Albumin [Mass/volume] in Ser um or Plasma by Bromocresol green (BCG) dye binding methoOrdered By: Sharan Ayoub on 01-27-2023 Albumin BCG dye [Mass/Vol] 3.6 g/dL 3.5-5.7 [facility] Alkaline phosphatase [Enzyma tic activity/volume] in Serum or PlasmaOrdered By: Sharan Ayoub on 01-27-2023 ALP [Catalytic activity/Vol] 222 U/L 34-104 [facility] Aspartate aminotransferase [ Enzymatic activity/volume] in Serum or PlasmaOrdered By: Sharan Ayoub on 01-27-2023 AST [Catalytic activity/Vol] 80 U/L 13-39 [facility] Basophils Auto (Bld) [#/Vol] Ordered By: Sharan Ayoub on 01-27-2023 Basophils (Bld) [#/Vol] 0.1 10*3/uL 0.0-0.2 [facility] Basophils/100 WBC Auto (Bld) Ordered By: Sharan Ayoub on 01-27-2023 Basophils/100 WBC (Bld) 0.8 % . [facility] Bilirubin.direct [Mass/volum e] in Serum or PlasmaOrdered By: Sharan Ayoub on 01-27-2023 Bilirubin.direct [Mass/Vol] 0.40 mg/dL 0.03-0.18 [facility] Bilirubin.total [Mass/volume ] in Serum or PlasmaOrdered By: Sharan Ayoub on 01-27-2023 Bilirubin [Mass/Vol] 1.5 mg/dL 0.3-1.0 [facility] Comment on above: Samples from patient s who have taken Naproxen have shown spurious elevation in Total Bilirubin levels. A metabolite of Naproxen, O-desmethylnaproxen, has been shown to interfere with the Harlan-Uriel method for measuring Total Bilirubin. Calcium [Mass/volume] in Ser um or PlasmaOrdered By: Sharan Ayoub on 01-27-2023 Calcium [Mass/Vol] 9.2 mg/dL 8.6-10.3 [facility] Carbon dioxide, total [Moles /volume] in Serum or PlasmaOrdered By: Sharan Ayoub on 01-27-2023 CO2 [Moles/Vol] 32.9 mmol/L 21.0-31.0 [facility] Chloride [Moles/volume] in S kasi or PlasmaOrdered By: Sharan Ayoub on 01-27-2023 Chloride [Moles/Vol] 104 mmol/L 98-107 [facility] Creatinine [Mass/volume] in Serum or PlasmaOrdered By: Sharan Ayoub on 01-27-2023 Creatinine [Mass/Vol] 0.94 mg/dL 0.70-1.30 [facility] Eosinophils Auto (Bld) [#/Vo l]Ordered By: Sharan Ayoub on 01-27-2023 Eosinophils (Bld) [#/Vol] 0.2 10*3/uL 0.0-0.45 [facility] Eosinophils/100 WBC Auto (Bl d)Ordered By: Sharan Ayoub on 01-27-2023 Eosinophils/100 WBC (Bld) 2.9 % . [facility] Erythrocyte distribution wid th Auto (RBC) [Ratio]Ordered By: Sharan Ayoub on 01-27-2023 Erythrocyte distribution width (RBC) [Ratio] 13.8 % 12.0-14.8 [facility] Gamma glutamyl transferase [ Enzymatic activity/volume] in Serum or PlasmaOrdered By: Sharan Ayoub on 01-27-2023 Gamma glutamyl transferase [Catalytic activity/Vol] 695 U/L 9-64 [facility] Globulin Calc (S) [Mass/Vol] Ordered By: Sharan Ayoub 01-27-2023 Globulin (S) [Mass/Vol] 3.4 g/dL [facility] Glucose [Mass/volume] in Ser um or PlasmaOrdered By: Sharan Ayoub on 01-27-2023 Glucose [Mass/Vol] 89 mg/dL 70-100 [facility] Comment on above: ADA recommended refe rence rangeRandom Glucose Reference Range is dependent on time and content of last meal. Glucose of more than 200 mg/dL in a nonstressed, ambulatory subject supports the diagnosis of Diabetes Mellitus. Hematocrit Auto (Bld) [Volum e fraction]Ordered By: Sharan Ayoub on 01-27-2023 Hematocrit (Bld) [Volume fraction] 42.2 % 38.8-50.0 [facility] Hemoglobin [Mass/volume] in BloodOrdered By: Sharan Ayoub on 01-27-2023 Hemoglobin (Bld) [Mass/Vol] 14.0 g/dL 13.0-17.0 [facility] Leukocytes [#/volume] correc roderick for nucleated erythrocytes in Blood by Automated counOrdered By: Sharan Ayoub on 01-27-2023 WBC corrected for nucl RBC Auto (Bld) [#/Vol] 6.5 10*3/uL 4.1-10.5 [facility] Lymphocytes Auto (Bld) [#/Vo l]Ordered By: Sharan Ayoub on 01-27-2023 Lymphocytes (Bld) [#/Vol] 2.4 10*3/uL 1.00-4.8 [facility] Lymphocytes/100 WBC Auto (Bl d)Ordered By: Sharan Ayoub on 01-27-2023 Lymphocytes/100 WBC (Bld) 36.9 % . [facility] MCH Auto (RBC) [Entitic mass ]Ordered By: Sharan Ayoub on 01-27-2023 MCH (RBC) [Entitic mass] 31.0 pg 27.5-35.2 [facility] MCHC Auto (RBC) [Mass/Vol]Or dered By: Sharan Ayoub on 01-27-2023 MCHC (RBC) [Mass/Vol] 33.2 g/dL 32.5-35.6 [facility] MCV Auto (RBC) [Entitic vol] Ordered By: Sharan Ayoub on 01-27-2023 MCV (RBC) [Entitic vol] 93.2 fL 83.5-101 [facility] Monocytes Auto (Bld) [#/Vol] Ordered By: Sharan Ayoub on 01-27-2023 Monocytes (Bld) [#/Vol] 0.7 10*3/uL 0.0-0.8 [facility] Monocytes/100 WBC Auto (Bld) Ordered By: Sharan Ayoub on 01-27-2023 Monocytes/100 WBC (Bld) 10.1 % . [facility] Neutrophils Auto (Bld) [#/Vo l]Ordered By: Sharan Ayoub on 01-27-2023 Neutrophils (Bld) [#/Vol] 3.2 10*3/uL 1.8-7.7 [facility] Neutrophils/100 WBC Auto (Bl d)Ordered By: Sharan Ayoub on 01-27-2023 Neutrophils/100 WBC (Bld) 49.3 % . [facility] No Panel InformationOrdered By: Sharan Ayoub on 01-27-2023 Estimated GFR (CKD-EPI) > 60.0 mL/Min [facility] Creatinine Clearance (Chem N/A [facility] Tacrolimus (Prograf) Level Sent to [facility] Nucleated erythrocytes [Pres ence] in Blood by Automated countOrdered By: Sharan Ayoub on 01-27-2023 Nucleated RBC Auto Ql (Bld) 0.2 /100{WBC} 0-0.5 [facility] Platelet mean volume Auto (B ld) [Entitic vol]Ordered By: Sharan Ayobu on 01-27-2023 Platelet mean volume (Bld) [Entitic vol] 10.3 fL 6.6-10.1 [facility] Platelets Auto (Bld) [#/Vol] Ordered By: Sharan Ayoub on 01-27-2023 Platelets (Bld) [#/Vol] 180 10*3/uL 150-450 [facility] Potassium [Moles/volume] in Serum or PlasmaOrdered By: Sharan Ayoub on 01-27-2023 Potassium [Moles/Vol] 3.9 mmol/L 3.5-5.1 [facility] Protein [Mass/volume] in Ser um or PlasmaOrdered By: Sharan Ayoub on 01-27-2023 Protein [Mass/Vol] 7.0 g/dL 6.4-8.9 [facility] RBC Auto (Bld) [#/Vol]Ordere d By: Sharan Ayoub on 01-27-2023 RBC (Bld) [#/Vol] 4.53 10*6/uL 3.90-5.60 [facility] Serum or plasma albumin/glob ulin mass ratioOrdered By: Sharan Ayoub on 01-27-2023 Albumin/Globulin [Mass ratio] 1.1 {ratio} [facility] Serum or plasma anion gap de terminationOrdered By: Sharan Ayoub on 01-27-2023 Anion gap [Moles/Vol] 9.0 mmol/L 6.0-15.0 [facility] Serum or plasma non-glucuron idated bilirubin measurement (mass/volume)Ordered By: Sharan Ayoub on 01-27-2023 Bilirubin.indirect [Mass/Vol] 1.1 mg/dL [facility] Sodium [Moles/volume] in Ser um or PlasmaOrdered By: Sharan Ayoub on 01-27-2023 Sodium [Moles/Vol] 142 mmol/L 136-145 [facility] Tacrolimuson 01-27-2023 Tacrolimus (Bld) [Mass/Vol] 7.3 ng/mL 2.0 - 15.0 [facility]astroen terology-[facility] [address] [facility] Work Phone: Comment on above: NOTE: Result was obt ained using a chemiluminescent microparticle immunoassay (CMIA) on the [employer] i system.Optimal therapeutic ranges for immuno-suppressant drugs depend upon an individualpatient's current clinical state, type oforgan transplant, time post-transplant,co-administration of other immunosuppressants,and other clinical factors. The results ofthis test should be correlated with additionalclinical and laboratory data before changesin treatment regimens are made. Urea nitrogen [Mass/volume] in Serum or PlasmaOrdered By: Sharan Ayoub on 01-27-2023 Urea nitrogen [Mass/Vol] 16 mg/dL 7-25 [facility] WBC Auto (Bld) [#/Vol]Ordere d By: Sharan Ayoub on 01-27-2023 WBC (Bld) [#/Vol] 6.5 10*3/uL 4.1-10.5 [facility] Established Visit (Gastroent erology)on 01-26-2023 Established Visit [...] 1 CAPSULE BY MOUTH EVERY 12 HOURS Zettaset Lancets 33G MISCTEST BLOOD SUGARS 5 TIMES A DAY AD DIRECTGED Spotivate Ultra 2 w/Device KitUSE DIRECTED. [employer] Control In Vitro SolutionUSE DIRECTED. AttensaTouch Ultra In Vitro StripTest 4 times daily predniSONE 1 MG Oral TabletTAKE 2 TABLETS BY MOUTH DAILY Tacrolimus 1 MG Oral Capsuletake 1 capsule by mouth twice daily Vitals Vital Signs Recorded: 26Jan2023 10:46AM Pjspwwrfvpb98.6 F Heart Rate76 Tbsaoaubedf22 Thrbacbz559 Bshspbrzl87 Zevfdh421 lb BMI Dsnddeqfer03.37 kg/m2 BSA Calculated1.73 Tobacco Useb) No PHQ-2 #1. Over the last 2 weeks have you felt down, depressed or hopeless? (If yes, answer PHQ-9 below)No PHQ-2 #2. Over the last 2 weeks have you felt little interest or pleasure in doing things? (If yes, answer PHQ-9 below)No Falls Screening (Age 18+)a) No falls within the last year O2 Saiqfxspga13, RA Pain Scale0 Physical Exam Con (more content not included)... Normal [facility] 01-26-2023 US Liver Normal [facility] Work Phone: Tobacco Screening.on 023 Adult depression screening assessment No [facility] Work Phone: Fall risk assessment a) No falls within the last year [facility] Work Phone: Tobacco use status CPHS b) No [facility] Work Phone: US ABDOMEN AND OR PELVIS DUP MARIA GUADALUPE MESENTERIC PORTAL RENALon 01-26-2023 US ABDOMEN AND OR PELVIS DUPLEX MESENTERIC PORTAL RENAL Patient Name: LULY GIRON STUDY: US LIVER; US DUPLX ART/VEIN AB; 01/26/2023 10:13 am INDICATION: s/p liver transplant, right side pain, elevated LFT's Z94.4: Liver replaced by transplant R79.89: Elevated LFTs. COMPARISON: Ultrasound 04/17/2019 ACCESSION NUMBER(S): [id number]; [id number] ORDERING CLINICIAN: SHARAN AYOUB TECHNIQUE: Multiple images [...] agree with the findings as stated by radiology tech Ramya Steward MD. This study was interpreted at [facility], [place], [place]. Electronically signed by: WEI FOSS MD Normal [facility] US Abdomen And Or Pelvis Dup maria guadalupe Mesenteric Portal Renalon 01-26-2023 US Abdomen And Or Pelvis Duplex Mesenteric Portal Renal Normal [facility] Work Phone: TACROLIMUSon 01-17-2023 Tacrolimus (Bld) [Mass/Vol] 8.1 ng/mL Normal 2.0 - 15.0 [facility] Comment on above: Result Comment: NOTE : Result was obtained using a chemiluminescent microparticle immunoassay (CMIA) on the Tent Worker i system. Optimal therapeutic ranges for immuno- suppressant drugs depend upon an individual patient's current clinical state, type of organ transplant, time post-transplant, co-administration of other immunosuppressants, and other clinical factors. The results of this test should be correlated with additional clinical and laboratory data before changes in treatment regimens are made. Performed By: #### F K506 #### [facility] [address] [place] [address] Alanine aminotransferase [En zymatic activity/volume] in Serum or PlasmaOrdered By: Sharan Ayoub on 01-16-2023 ALT [Catalytic activity/Vol] 98 U/L 7-52 [facility] Albumin [Mass/volume] in Ser um or Plasma by Bromocresol green (BCG) dye binding methoOrdered By: Sharan Ayoub on 01-16-2023 Albumin BCG dye [Mass/Vol] 3.6 g/dL 3.5-5.7 [facility] Alkaline phosphatase [Enzyma tic activity/volume] in Serum or PlasmaOrdered By: Sharan Ayoub on 01-16-2023 ALP [Catalytic activity/Vol] 197 U/L 34-104 [facility] Aspartate aminotransferase [ Enzymatic activity/volume] in Serum or PlasmaOrdered By: Sharan Ayoub on 01-16-2023 AST [Catalytic activity/Vol] 88 U/L 13-39 [facility] Bilirubin.direct [Mass/volum e] in Serum or PlasmaOrdered By: Sharan Ayoub on 01-16-2023 Bilirubin.direct [Mass/Vol] 0.30 mg/dL 0.03-0.18 [facility] Bilirubin.total [Mass/volume ] in Serum or PlasmaOrdered By: Sharan Ayoub on 01-16-2023 Bilirubin [Mass/Vol] 1.2 mg/dL 0.3-1.0 [facility] Calcium [Mass/volume] in Ser um or PlasmaOrdered By: Sharan Ayoub on 01-16-2023 Calcium [Mass/Vol] 8.8 mg/dL 8.6-10.3 [facility] Carbon dioxide, total [Moles /volume] in Serum or PlasmaOrdered By: Sharan Ayoub on 01-16-2023 CO2 [Moles/Vol] 30.0 mmol/L 21.0-31.0 [facility] Chloride [Moles/volume] in S kasi or PlasmaOrdered By: Sharan Ayoub on 01-16-2023 Chloride [Moles/Vol] 104 mmol/L 98-107 [facility] Creatinine [Mass/volume] in Serum or PlasmaOrdered By: Sharan Ayoub on 01-16-2023 Creatinine [Mass/Vol] 1.02 mg/dL 0.70-1.30 [facility] Gamma glutamyl transferase [ Enzymatic activity/volume] in Serum or PlasmaOrdered By: Sharan Ayoub on 01-16-2023 Gamma glutamyl transferase [Catalytic activity/Vol] 705 U/L 9-64 [facility] Globulin Calc (S) [Mass/Vol] Ordered By: Sharan Ayoub on 01-16-2023 Globulin (S) [Mass/Vol] 3.5 g/dL [facility] Glucose [Mass/volume] in Ser um or PlasmaOrdered By: Sharan Ayoub on 01-16-2023 Glucose [Mass/Vol] 254 mg/dL 70-100 [facility] Comment on above: ADA recommended refe rence rangeRandom Glucose Reference Range is dependent on time and content of last meal. Glucose of more than 200 mg/dL in a nonstressed, ambulatory subject supports the diagnosis of Diabetes Mellitus. Laboratory - CoagulationOrde red By: Sharan Ayoub on 01-16-2023 PT Coag (PPP) [Time] 11.4 s 9.0-12.9 [facility] No Panel InformationOrdered By: Sharan Ayoub on 01-16-2023 Estimated GFR (CKD-EPI) > 60.0 mL/Min [facility] Creatinine Clearance (Chem N/A [facility] Tacrolimus (Prograf) Level Sent to [facility] Platelet poor plasma interna tional normalized ratio (INR) by coagulation assay (relatOrdered By: Sharan Ayoub on 01-16-2023 INR Coag (PPP) [Relative time] 1.0 {INR} [facility] Comment on above: INR Therapeutic Rang [...] on 01-16-2023 Potassium [Moles/Vol] 4.0 mmol/L 3.5-5.1 [facility] Protein [Mass/volume] in Ser um or PlasmaOrdered By: Sharan Ayoub on 01-16-2023 Protein [Mass/Vol] 7.1 g/dL 6.4-8.9 [facility] Serum or plasma albumin/glob ulin mass ratioOrdered By: Sharan Ayoub on 01-16-2023 Albumin/Globulin [Mass ratio] 1.0 {ratio} [facility] Serum or plasma anion gap de terminationOrdered By: Sharan Ayoub on 01-16-2023 Anion gap [Moles/Vol] 9.0 mmol/L 6.0-15.0 [facility] Serum or plasma non-glucuron idated bilirubin measurement (mass/volume)Ordered By: Sharan Ayoub on 01-16-2023 Bilirubin.indirect [Mass/Vol] 0.9 mg/dL [facility] Sodium [Moles/volume] in Ser um or PlasmaOrdered By: Sharan Ayoub on 01-16-2023 Sodium [Moles/Vol] 139 mmol/L 136-145 [facility] Tacrolimuson 01-16-2023 Tacrolimus (Bld) [Mass/Vol] 8.1 ng/mL 2.0 - 15.0 [facility] Work Phone: Comment on above: NOTE: Result was obt ained using a chemiluminescent microparticle immunoassay (CMIA) on the T[employer]er i system.Optimal therapeutic ranges for immuno-suppressant drugs depend upon an individualpatient's current clinical state, type oforgan transplant, time post-transplant,co-administration of other immunosuppressants,and other clinical factors. The results ofthis test should be correlated with additionalclinical and laboratory data before changesin treatment regimens are made. Urea nitrogen [Mass/volume] in Serum or PlasmaOrdered By: Sharan Ayoub on 01-16-2023 Urea nitrogen [Mass/Vol] 14 mg/dL 04-25 [facility] TACROLIMUSon 12-24-2022 Tacrolimus (Bld) [Mass/Vol] 5.8 ng/mL Normal 2.0 - 15.0 [facility] Comment on above: Result Comment: NOTE : Result was obtained using a chemiluminescent microparticle immunoassay (CMIA) on the Tent Worker i system. Optimal therapeutic ranges for immuno- suppressant drugs depend upon an individual patient's current clinical state, type of organ transplant, time post-transplant, co-administration of other immunosuppressants, and other clinical factors. The results of this test should be correlated with additional clinical and laboratory data before changes in treatment regimens are made. Performed By: #### F [id number] #### [facility] [address] [address] Alanine aminotransferase [En zymatic activity/volume] in Serum or PlasmaOrdered By: Sharan Ayoub on 12-23-2022 ALT [Catalytic activity/Vol] 64 U/L 7-52 [facility] Albumin [Mass/volume] in Ser um or Plasma by Bromocresol green (BCG) dye binding methoOrdered By: Sharan Ayoub on 12-23-2022 Albumin BCG dye [Mass/Vol] 3.7 g/dL 3.5-5.7 [facility] Alkaline phosphatase [Enzyma tic activity/volume] in Serum or PlasmaOrdered By: Sharan Ayoub on 12-23-2022 ALP [Catalytic activity/Vol] 209 U/L 34-104 [facility] Aspartate aminotransferase [ Enzymatic activity/volume] in Serum or PlasmaOrdered By: Sharan Ayoub on 12-23-2022 AST [Catalytic activity/Vol] 61 U/L 13-39 [facility] Basophils Auto (Bld) [#/Vol] Ordered By: Sharan Ayoub on 12-23-2022 Basophils (Bld) [#/Vol] 0.1 10*3/uL 0.0-0.2 [facility] Basophils/100 WBC Auto (Bld) Ordered By: Sharan Ayoub on 12-23-2022 Basophils/100 WBC (Bld) 1.2 % . [facility] Bilirubin.total [Mass/volume ] in Serum or PlasmaOrdered By: Sharan Ayoub on 12-23-2022 Bilirubin [Mass/Vol] 0.9 mg/dL 0.3-1.0 [facility] Calcium [Mass/volume] in Ser um or PlasmaOrdered By: Sharan Ayoub on 12-23-2022 Calcium [Mass/Vol] 9.6 mg/dL 8.6-10.3 [facility] Carbon dioxide, total [Moles /volume] in Serum or PlasmaOrdered By: Sharan Ayoub on 12-23-2022 CO2 [Moles/Vol] 30.2 mmol/L 21.0-31.0 [facility] Chloride [Moles/volume] in S kasi or PlasmaOrdered By: Sharan Ayoub on 12-23-2022 Chloride [Moles/Vol] 102 mmol/L 98-107 [facility] Creatinine [Mass/volume] in Serum or PlasmaOrdered By: Sharan Ayoub on 12-23-2022 Creatinine [Mass/Vol] 1.08 mg/dL 0.70-1.30 [facility] Eosinophils Auto (Bld) [#/Vo l]Ordered By: Sharan Ayoub on 12-23-2022 Eosinophils (Bld) [#/Vol] 0.1 10*3/uL 0.0-0.45 [facility] Eosinophils/100 WBC Auto (Bl d)Ordered By: Sharan Ayoub on 12-23-2022 Eosinophils/100 WBC (Bld) 1.2 % . [facility] Erythrocyte distribution wid th Auto (RBC) [Ratio]Ordered By: Sharan yAoub on 12-23-2022 Erythrocyte distribution width (RBC) [Ratio] 13.7 % 12.0-14.8 [facility] Globulin Calc (S) [Mass/Vol] Ordered By: Sharan Ayoub on 12-23-2022 Globulin (S) [Mass/Vol] 3.2 g/dL [facility] Glucose [Mass/volume] in Ser um or PlasmaOrdered By: Sharan Ayoub on 12-23-2022 Glucose [Mass/Vol] 278 mg/dL 74-109 [facility] Comment on above: ADA recommended refe rence rangeRandom Glucose Reference Range is dependent on time and content of last meal. Glucose of more than 200 mg/dL in a nonstressed, ambulatory subject supports the diagnosis of Diabetes Mellitus. Hematocrit Auto (Bld) [Volum e fraction]Ordered By: Sharan Ayoub on 12-23-2022 Hematocrit (Bld) [Volume fraction] 39.9 % 38.8-50.0 [facility] Hemoglobin [Mass/volume] in BloodOrdered By: Sharan Ayoub on 12-23-2022 Hemoglobin (Bld) [Mass/Vol] 13.4 g/dL 13.0-17.0 [facility] Laboratory - Chemistry and C hemistry - challengeOrdered By: Sharan Ayoub on 12-23-2022 GFR/1.73 sq M.predicted MDRD (S/P/Bld) [Vol rate/Area] mL/min/{1.73_m2} [facility] Leukocytes [#/volume] correc roderick for nucleated erythrocytes in Blood by Automated counOrdered By: Sharan Ayoub on 12-23-2022 WBC corrected for nucl RBC Auto (Bld) [#/Vol] 6.5 10*3/uL 4.1-10.5 [facility] Lymphocytes Auto (Bld) [#/Vo l]Ordered By: Sharan Ayoub on 12-23-2022 Lymphocytes (Bld) [#/Vol] 2.4 10*3/uL 1.00-4.8 [facility] Lymphocytes/100 WBC Auto (Bl d)Ordered By: Sharan Ayoub on 12-23-2022 Lymphocytes/100 WBC (Bld) 37.4 % . [facility] MCH Auto (RBC) [Entitic mass ]Ordered By: Sharan Ayoub on 12-23-2022 MCH (RBC) [Entitic mass] 31.1 pg 27.5-35.2 [facility] MCHC Auto (RBC) [Mass/Vol]Or dered By: Sharan Ayoub on 12-23-2022 MCHC (RBC) [Mass/Vol] 33.6 g/dL 32.5-35.6 [facility] MCV Auto (RBC) [Entitic vol] Ordered By: Sharan Ayoub on 12-23-2022 MCV (RBC) [Entitic vol] 92.7 fL 83.5-101 [facility] Monocytes Auto (Bld) [#/Vol] Ordered By: Sharan Ayoub on 12-23-2022 Monocytes (Bld) [#/Vol] 0.6 10*3/uL 0.0-0.8 [facility] Monocytes/100 WBC Auto (Bld) Ordered By: Sharan Ayoub on 12-23-2022 Monocytes/100 WBC (Bld) 8.6 % . [facility] Neutrophils Auto (Bld) [#/Vo l]Ordered By: Sharan Ayoub on 12-23-2022 Neutrophils (Bld) [#/Vol] 3.4 10*3/uL 1.8-7.7 [facility] Neutrophils/100 WBC Auto (Bl d)Ordered By: Sharan Ayoub on 12-23-2022 Neutrophils/100 WBC (Bld) 51.6 % . [facility] No Panel InformationOrdered By: Sharan Ayoub on 12-23-2022 Pharmacy Creatinine Clearance (Chem N/A [facility] Tacrolimus (Prograf) Level Sent to [facility] Nucleated erythrocytes [Pres ence] in Blood by Automated countOrdered By: Sharan Ayoub on 12-23-2022 Nucleated RBC Auto Ql (Bld) 0.1 /100{WBC} 0-0.5 [facility] Platelet mean volume Auto (B ld) [Entitic vol]Ordered By: Sharan Ayoub on 12-23-2022 Platelet mean volume (Bld) [Entitic vol] 10.1 fL 6.6-10.1 [facility] Platelets Auto (Bld) [#/Vol] Ordered By: Sharan Ayoub on 12-23-2022 Platelets (Bld) [#/Vol] 207 10*3/uL 150-450 [facility] Potassium [Moles/volume] in Serum or PlasmaOrdered By: Sharan Ayoub on 12-23-2022 Potassium [Moles/Vol] 4.0 mmol/L 3.5-5.1 [facility] Protein [Mass/volume] in Ser um or PlasmaOrdered By: Sharan Ayoub on 12-23-2022 Protein [Mass/Vol] 6.9 g/dL 6.4-8.9 [facility] RBC Auto (Bld) [#/Vol]Ordere d By: Sharan Ayoub on 12-23-2022 RBC (Bld) [#/Vol] 4.31 10*6/uL 3.90-5.60 [facility] Serum or plasma albumin/glob ulin mass ratioOrdered By: Sharan Ayoub on 12-23-2022 Albumin/Globulin [Mass ratio] 1.2 {ratio} [facility] Serum or plasma anion gap de terminationOrdered By: Sharan Ayoub on 12-23-2022 Anion gap [Moles/Vol] 10.8 mmol/L 6.0-15.[address] [facility] Sodium [Moles/volume] in Ser um or PlasmaOrdered By: Sharan Ayoub on 12-23-2022 Sodium [Moles/Vol] 139 mmol/L 136-145 [facility] Tacrolimuson 12-23-2022 Tacrolimus (Bld) [Mass/Vol] 5.8 ng/mL 2.0 - 15.0 [facility]astro[facility]ology[facility] [address] [facility] Work Phone: Comment on above: NOTE: Result was obt ained using a chemiluminescent microparticle immunoassay (CMIA) on the T[employer] Worker i system.Optimal therapeutic ranges for immuno-suppressant drugs depend upon an individualpatient's current clinical state, type oforgan transplant, time post-transplant,co-administration of other immunosuppressants,and other clinical factors. The results ofthis test should be correlated with additionalclinical and laboratory data before changesin treatment regimens are made. Urea nitrogen [Mass/volume] in Serum or PlasmaOrdered By: Sharan Ayoub on 12-23-2022 Urea nitrogen [Mass/Vol] 20 mg/dL 7-25 [facility] WBC Auto (Bld) [#/Vol]Ordere d By: Sharan Ayoub on 12-23-2022 WBC (Bld) [#/Vol] 6.5 10*3/uL 4.1-10.5 [facility] TACROLIMUSon 11-03-2022 Tacrolimus (Bld) [Mass/Vol] 9.2 ng/mL Normal 2.0 - 15.0 [facility] Comment on above: Result Comment: NOTE : Result was obtained using a chemiluminescent microparticle immunoassay (CMIA) on the Tent Worker i system. Optimal therapeutic ranges for immuno- suppressant drugs depend upon an individual patient's current clinical state, type of organ transplant, time post-transplant, co-administration of other immunosuppressants, and other clinical factors. The results of this test should be correlated with additional clinical and laboratory data before changes in treatment regimens are made. Performed By: #### F K506 #### [facility] [address] [place] [address] Basophils Auto (Bld) [#/Vol] Ordered By: Sharan Ayoub on 11-02-2022 Basophils (Bld) [#/Vol] 0.0 10*3/uL 0.0-0.2 [facility] Basophils/100 WBC Auto (Bld) Ordered By: Sharan Ayoub on 11-02-2022 Basophils/100 WBC (Bld) 0.9 % . [facility] Body fluid albumin measureme nt (mass/volume)Ordered By: Sharan Ayoub on 11-02-2022 Albumin (Body fld) [Mass/Vol] 3.5 g/dL 3.2-5.5 [facility] Creatinine and Glomerular fi ltration rate.predicted panel (S/P/Bld)Ordered By: Sharan Ayoub on 11-02-2022 Creatinine [Mass/Vol] 0.95 mg/dL 0.64-1.27 [facility] Eosinophils Auto (Bld) [#/Vo l]Ordered By: Sharan Ayoub on 11-02-2022 Eosinophils (Bld) [#/Vol] 0.1 10*3/uL 0.0-0.45 [facility] Eosinophils/100 WBC Auto (Bl d)Ordered By: Sharan Ayoub on 11-02-2022 Eosinophils/100 WBC (Bld) 2.1 % . [facility] Erythrocyte distribution wid th Auto (RBC) [Ratio]Ordered By: Sharan Ayoub on 11-02-2022 Erythrocyte distribution width (RBC) [Ratio] 13.9 % 12.0-14.8 [facility] Estimated glomerular filtrat ion rate (GFR) non- AmericanOrdered By: Sharan Ayoub on 11-02-2022 GFR/1.73 sq M.predicted among non-blacks MDRD (S/P/Bld) [Vol rate/Area] > 60 mL/Min [facility] Globulin Calc (S) [Mass/Vol] Ordered By: Sharan Ayoub on 11-02-2022 Globulin (S) [Mass/Vol] 3.0 g/dL [facility] Hematocrit Auto (Bld) [Volum e fraction]Ordered By: Sharan Ayoub on 11-02-2022 Hematocrit (Bld) [Volume fraction] 43.7 % 38.8-50.0 [facility] Hemoglobin [Mass/volume] in BloodOrdered By: Sharan Ayoub on 11-02-2022 Hemoglobin (Bld) [Mass/Vol] 14.4 g/dL 13.0-17.0 [facility] Leukocytes [#/volume] correc roderick for nucleated erythrocytes in Blood by Automated counOrdered By: Sharan Ayoub on 11-02-2022 WBC corrected for nucl RBC Auto (Bld) [#/Vol] 5.5 10*3/uL 4.1-10.5 [facility] Lymphocytes Auto (Bld) [#/Vo l]Ordered By: Sharan Ayoub on 11-02-2022 Lymphocytes (Bld) [#/Vol] 2.4 10*3/uL 1.00-4.8 [facility] Lymphocytes/100 WBC Auto (Bl d)Ordered By: Sharan Ayoub on 11-02-2022 Lymphocytes/100 WBC (Bld) 43.9 % . [facility] MCH Auto (RBC) [Entitic mass ]Ordered By: Sharan Ayoub on 11-02-2022 MCH (RBC) [Entitic mass] 30.5 pg 27.5-35.2 [facility] MCHC Auto (RBC) [Mass/Vol]Or dered By: Sharan Ayuob on 11-02-2022 MCHC (RBC) [Mass/Vol] 33.0 g/dL 32.5-35.6 [facility] MCV Auto (RBC) [Entitic vol] Ordered By: Sharan Ayoub on 11-02-2022 MCV (RBC) [Entitic vol] 92.5 fL 83.5-101 [facility] Monocytes Auto (Bld) [#/Vol] Ordered By: Sharan Ayoub on 11-02-2022 Monocytes (Bld) [#/Vol] 0.6 10*3/uL 0.0-0.8 [facility] Monocytes/100 WBC Auto (Bld) Ordered By: Sharan Ayoub on 11-02-2022 Monocytes/100 WBC (Bld) 10.7 % . [facility] Neutrophils Auto (Bld) [#/Vo l]Ordered By: Sharan Ayoub on 11-02-2022 Neutrophils (Bld) [#/Vol] 2.3 10*3/uL 1.8-7.7 [facility] Neutrophils/100 WBC Auto (Bl d)Ordered By: Sharan Ayoub on 11-02-2022 Neutrophils/100 WBC (Bld) 42.4 % . [facility] No Panel InformationOrdered By: Sharan Ayoub on 11-02-2022 Estimated GFR () > 60 mL/Min [facility] Comment on above: GFR estimated refere nce range: According to KDOQI guidelines, <60 ml/min/1.73m2 is sufficient to diagnose a patient with chronic kidney disease. Pharmacy Creatinine Clearance (Chem N/A [facility] Tacrolimus (Prograf) Level Sent to [facility] Nucleated erythrocytes [Pres ence] in Blood by Automated countOrdered By: Sharan Ayoub on 11-02-2022 Nucleated RBC Auto Ql (Bld) 0.1 /100{WBC} 0-0.5 [facility] Platelet mean volume Auto (B ld) [Entitic vol]Ordered By: Sharan Ayoub on 11-02-2022 Platelet mean volume (Bld) [Entitic vol] 9.9 fL 6.6-10.1 [facility] Platelets Auto (Bld) [#/Vol] Ordered By: Sharan Ayoub on 11-02-2022 Platelets (Bld) [#/Vol] 199 10*3/uL 150-450 [facility] Protein [Mass/volume] in Ser um or PlasmaOrdered By: Sharan Ayoub on 11-02-2022 Protein [Mass/Vol] 6.5 g/dL 6.1-7.9 [facility] RBC Auto (Bld) [#/Vol]Ordere d By: Sharan Ayoub on 11-02-2022 RBC (Bld) [#/Vol] 4.72 10*6/uL 3.90-5.60 [facility] Serum or plasma alanine weaver otransferase measurement without P-5'-P (enzymatic activiOrdered By: Sharan Ayoub on 11-02-2022 ALT No additional P-5'-P [Catalytic activity/Vol] 86 U/L 10-60 [facility] Serum or plasma albumin/glob ulin mass ratioOrdered By: Sharan Ayoub on 11-02-2022 Albumin/Globulin [Mass ratio] 1.2 {ratio} [facility] Serum or plasma alkaline roe sphatase measurement (enzymatic activity/volume)Ordered By: Sharan Ayoub on 11-02-2022 ALP [Catalytic activity/Vol] 149 U/L 32-92 [facility] Serum or plasma anion gap de terminationOrdered By: Sharan Ayoub on 11-02-2022 Anion gap [Moles/Vol] 15.2 mmol/L 6.0-15.[address] [facility] Serum or plasma aspartate am inotransferase measurement (enzymatic activity/volume)Ordered By: Sharan Ayoub on 11-02-2022 AST [Catalytic activity/Vol] 67 U/L 10-42 [facility] Serum or plasma calcium vini urement (mass/volume)Ordered By: Sharan Ayoub on 11-02-2022 Calcium [Mass/Vol] 9.4 mg/dL 8.2-10.2 [facility] Serum or plasma chloride jose surement (moles/volume)Ordered By: Sharan Ayoub on 11-02-2022 Chloride [Moles/Vol] 98 mmol/L 95-114 [facility] Serum or plasma glucose vini urement (mass/volume)Ordered By: Sharan Ayoub on 11-02-2022 Glucose [Mass/Vol] 176 mg/dL 70-100 [facility] Comment on above: ADA recommended refe rence rangeRandom Glucose Reference Range is dependent on time and content of last meal. Glucose of more than 200 mg/dL in a nonstressed, ambulatory subject supports the diagnosis of Diabetes Mellitus. Serum or plasma potassium me asurement (moles/volume)Ordered By: Sharan Ayoub on 11-02-2022 Potassium [Moles/Vol] 3.7 mmol/L 3.5-5.1 [facility] Serum or plasma sodium measu rement (moles/volume)Ordered By: Sharan Ayoub on 11-02-2022 Sodium [Moles/Vol] 139 mmol/L 136-146 [facility] Serum or plasma total biliru bin measurement (mass/volume)Ordered By: Sharan Ayoub on 11-02-2022 Bilirubin [Mass/Vol] 1.1 mg/dL 0.3-1.2 [facility] Serum or plasma total carbon dioxide measurement (moles/volume)Ordered By: Sharan Ayoub on 11-02-2022 CO2 [Moles/Vol] 29.5 mmol/L 22.0-30.0 [facility] Serum or plasma urea nitroge n measurement (mass/volume)Ordered By: Sharan Ayoub on 11-02-2022 Urea nitrogen [Mass/Vol] 10 mg/dL 9-23 [facility] Tacrolimuson 11-02-2022 Tacrolimus (Bld) [Mass/Vol] 9.2 ng/mL 2.0 - 15.0 [facility] [address] [facility] Work Phone: Comment on above: NOTE: Result was obt ained using a chemiluminescent microparticle immunoassay (CMIA) on the T[employer] Worker i system.Optimal therapeutic ranges for immuno-suppressant drugs depend upon an individualpatient's current clinical state, type oforgan transplant, time post-transplant,co-administration of other immunosuppressants,and other clinical factors. The results ofthis test should be correlated with additionalclinical and laboratory data before changesin treatment regimens are made. WBC Auto (Bld) [#/Vol]Ordere d By: Sharan Ayoub on 11-02-2022 WBC (Bld) [#/Vol] 5.5 10*3/uL 4.1-10.5 [facility] AMYLASEon 10-26-2022 Amylase [Catalytic activity/Vol] 69 U/L Normal 25-115 [facility] Comment on above: Performed By: #### B MP, LIVER, LIPA, CHACHA ####[facility] [address] [place] [address]Dr. Aleksandar Almeida CBC AUTO DIFFon 10-26-2022 BASO # 0.0 103/ul Normal 0.0-0.1 [facility] Comment on above: Performed By: #### C BC ####[facility] [address] [place], [place] [address]Dr. Aleksandar Almeida Basophils/100 WBC (Bld) 0.7 % Normal 0.2-2.0 [facility] Comment on above: Performed By: #### C BC ####[facility] [address] [place] [address]Dr. Aleksandar Almeida EO # 0.1 103/ul Normal 0.0-0.7 [facility] Comment on above: Performed By: #### C BC ####[facility] [address] [place] [address]Dr. Aleksandar Almeida Eosinophils/100 WBC (Bld) 1.1 % Normal 0.9-7.0 [facility] Comment on above: Performed By: #### C BC ####[facility] [address] [place], [place] [address]Dr. Aleksandar Almeida Erythrocyte distribution width (RBC) [Ratio] 12.5 % Normal 11.0-15.0 [facility] Comment on above: Performed By: #### C BC ####[facility] [address] [place] [address]Dr. Aleksandar Almeida Hematocrit (Bld) [Volume fraction] 42.9 % Normal 42.0-54.0 [facility] Comment on above: Performed By: #### C BC ####[facility] [address] [place], [place] [address]Dr. Aleksandar Almeida Hemoglobin (Bld) [Mass/Vol] 13.6 g/dL Critically low 14.0-18.0 [facility] Comment on above: Performed By: #### C BC ####[facility] [address] [place], [place] [address]Dr. Aleksandar Almeida IG # 0.01 10e3/ul Normal 0.00-0.03 [facility] Comment on above: Performed By: #### C BC ####[facility] [address] [place], [place] [address]Dr. Aleksandar Almeida IG % 0.2 % Normal 0.0-0.5 [facility] Comment on above: Performed By: #### C BC ####[facility] [address] [place], [place] [address]Dr. Aleksandar Almeida LYMPH # 2.3 103/ul Normal 1.2-3.8 [facility] Comment on above: Performed By: #### C BC ####[facility] [address] [place], [place] [address]Dr. Aleksandar Almeida Lymphocytes/100 WBC (Bld) 41.7 % Normal 20.5-60.0 [facility] Comment on above: Performed By: #### C BC ####[facility] [address] [place], [place] [address]Dr. Aleksandar Juan Pablo MANUAL DIFF REQ NO Normal [facility] Comment on above: Performed By: #### C BC ####[facility] [address] [place], [place] [address]Dr. Aleksandar Almeida MCH (RBC) [Entitic mass] 30.9 pg Normal 25.9-34.0 [facility] Comment on above: Performed By: #### C BC ####[facility] [address] [place] [address]Dr. Aleksandar Juan Pablo MCHC (RBC) [Mass/Vol] 31.7 g/dL Normal 29.9-35.2 [facility] Comment on above: Performed By: #### C BC ####[facility] [address] [place], [place] [address]Dr. Aleksandar Almeida MCV (RBC) [Entitic vol] 97.5 fL Critically high 80.0-94.0 [facility] Comment on above: Performed By: #### C BC ####[facility] [address] [place], [place] [address]Dr. Aleksandar Almeida MONO # 0.5 103/ul Normal 0.3-0.8 [facility] Comment on above: Performed By: #### C BC ####[facility] [address] [place], [place] [address]Dr. Aleksandar Almeida Monocytes/100 WBC (Bld) 8.1 % Normal 1.7-12.0 [facility] Comment on above: Performed By: #### C BC ####[facility] [address] [place], [place] [address]DrBaldev Almeida NEUT # 2.7 103/ul Normal 1.4-6.5 [facility] Comment on above: Performed By: #### C BC ####[facility] [address] [place], [place] [address]Dr. Aleksandar Almeida Neutrophils/100 WBC (Bld) 48.2 % Normal 43.0-75.0 [facility] Comment on above: Performed By: #### C BC ####[facility] [address] [place], [place] [address]DrBaldev Almeida Platelet mean volume (Bld) [Entitic vol] 11.0 fL Normal 9.5-13.5 [facility] Comment on above: Performed By: #### C BC ####[facility] [address] [place], [place] [address]Dr. Aleksandar Almeida PLT 175 103/ul Normal 150-450 [facility] Comment on above: Performed By: #### C BC ####[facility] [address] [place] [address]Dr. Aleksandar Almeida RBC 4.40 106/ul Critically low 4.70-6.10 [facility] Comment on above: Performed By: #### C BC ####[facility] [address] [place] [address]Dr. Aleksandar Almeida WBC 5.6 103/ul Normal 4.0-11.0 [facility] Comment on above: Performed By: #### C BC ####[facility] [address] [place] [address]DrBaldev Almeida ER URINE PROFILEon 3 Bilirubin Ql (U) Negative Normal NEGATIVE [facility] Comment on above: Performed By: #### E RUR #### [facility] [address] [place] [address] Dr. Aleksandar Almeida Clarity (U) CLEAR Normal CLEAR [facility] Comment on above: Performed By: #### E RUR #### [facility] [address] [place] [address] Dr. Aleksandar Almeida Color (U) YELLOW Normal YELLOW [facility] Comment on above: Performed By: #### E RUR #### [facility] [address] [place] [address] Dr. Aleksandar Almeida ERUAHD A micrscopic examina tion will be performed if indicated. Normal [facility] Comment on above: Performed By: #### E RUR #### [facility] [address] [place] [address] Dr. Aleksandar Almeida Glucose Ql (U) >1000 Abnormal NEGATIVE [facility] Comment on above: Performed By: #### E RUR #### [facility] [address] [place] [address] Dr. Aleksandar Almeida Hemoglobin Ql (U) Negative Normal NEGATIVE [facility] Comment on above: Performed By: #### E RUR #### [facility] [address] [place] [address] Dr. Aleksandar Almeida Ketones Ql (U) TRACE Abnormal NEGATIVE [facility] Comment on above: Performed By: #### E RUR #### [facility] [address] [place] [address] Dr. Aleksandar Almeida LEUKOCYTES Negative Normal NEGATIVE [facility] Comment on above: Performed By: #### E RUR #### [facility] [address] [place] [address] Dr. Aleksandar Almeida Nitrite Ql (U) Negative Normal NEGATIVE [facility] Comment on above: Performed By: #### E RUR #### [facility] [address] [place] [address] Dr. Aleksandar Almeida pH (U) 6.0 [pH] Normal 5-9 [facility] Comment on above: Performed By: #### E RUR #### [facility] [address] [place] [address] Dr. Aleksandar Almeida SPEC GRAVITY 1.020 Normal 1.005-<=1.02 5 [facility] Comment on above: Performed By: #### E RUR #### [facility] [address] [place] [address] Dr. Aleksandar Almeida UA PROTEIN Negative Normal NEGATIVE/ TRACE [facility] Comment on above: Performed By: #### E RUR #### [facility] [address] [place] [address] Dr. Aleksandar Almeida UR MICRO IND NOT INDICATED Normal [facility] Comment on above: Performed By: #### E RUR #### [facility] [address] [place] [address] Dr. Aleksandar Almeida Urobilinogen Qn (U) 0.2 {Jacinta'U}/dL Normal 0.2 - 1. 0 [facility] Comment on above: Performed By: #### E RUR #### [facility] [address] [place] [address] Dr. Aleksandar Almeida LIPASEon 10-26-2022 Lipase [Catalytic activity/Vol] 47.0 U/L Critically low 73.0-393.0 [facility] Comment on above: Performed By: #### B MP, LIVER, LIPA, CHACHA ####[facility] [address] [address]Dr. Aleksandar Almeida LIVER PROFILEon 10-26-2022 Albumin [Mass/Vol] 3.2 g/dL Critically low 3.4-5.0 [facility] Comment on above: Performed By: #### B MP, LIVER, LIPA, CHACHA #### [facility] [address] [address] [address] Aleksandar Almeida Albumin/Globulin [Mass ratio] 0.9 {ratio} Normal [facility] Comment on above: Performed By: #### B MP, LIVER, LIPA, CHACHA #### [facility] [address] [place] [address] Dr. Aleksandar Almeida ALP [Catalytic activity/Vol] 177 U/L Critically high 46-116 [facility] Comment on above: Performed By: #### B MP, LIVER, LIPA, CHACHA #### [facility] [address] [place] [address] Dr. Aleksandar Almeida ALT [Catalytic activity/Vol] 105 U/L Critically high 16-63 [facility] Comment on above: Performed By: #### B MP, LIVER, LIPA, CHACHA #### [facility] [address] [place] [address] Dr. Aleksanadr Almeida AST [Catalytic activity/Vol] 74 U/L Critically high 15-37 [facility] Comment on above: Performed By: #### B MP, LIVER, LIPA, CHACHA #### [facility] [address] [address] [address] Aleksandar Almeida BILI, CONJUGATED 0.4 mg/dL Critically high 0.0-0.2 [facility] Comment on above: Performed By: #### B MP, LIVER, LIPA, CHACHA #### [facility] [address] [place] [address] Dr. Aleksandar Almeida Bilirubin [Mass/Vol] 0.9 mg/dL Normal 0.2-1.0 [facility] Comment on above: Performed By: #### B MP, LIVER, LIPA, CHACHA #### [facility] [address] [address] [address] Aleksandar Almeida Globulin (S) [Mass/Vol] 3.6 g/dL Normal [facility] Comment on above: Performed By: #### B MP, LIVER, LIPA, CHACHA #### [facility] [address] [address] [address] Aleksandar Almeida Protein [Mass/Vol] 6.8 g/dL Normal 6.4-8.2 [facility] Comment on above: Performed By: #### B MP, LIVER, LIPA, CHACHA #### [facility] [address] [place] [address] Dr. Aleksandar Almeida POINT OF CARE GLUCOSEon 10-03 Glucose [Mass/Vol] 313 mg/dL Critically high 74-106 [facility] Comment on above: Performed By: #### P OCGLUC #### [facility] [address] [place] [address] Dr. Aleksandar Almeida PROF CHEM 8 (BAS METB)on Anion gap [Moles/Vol] 9.2 mmol/L Normal [facility] Comment on above: Performed By: #### B MP, LIVER, LIPA, CHACHA #### [facility] [address] [place] [address] Dr. Aleksandar Almeida Calcium [Mass/Vol] 9.2 mg/dL Normal 8.5-10.1 [facility] Comment on above: Performed By: #### B MP, LIVER, LIPA, CHACHA #### [facility] [address] [place] [address] Dr. Aleksandar Almeida Chloride [Moles/Vol] 102 mmol/L Normal 98-107 [facility] Comment on above: Performed By: #### B MP, LIVER, LIPA, CHACHA #### [facility] [address] [place] [address] Dr. Aleksandar Almeida CO2 [Moles/Vol] 29.7 mmol/L Normal 21.0-32.0 [facility] Comment on above: Performed By: #### B MP, LIVER, LIPA, CHACHA #### [facility] [address] [address] [address] Aleksandar Almeida Creatinine [Mass/Vol] 1.05 mg/dL Normal 0.70-1.30 [facility] Comment on above: Performed By: #### B MP, LIVER, LIPA, CHACHA #### [facility] [address] [address] [address] Aleksandar Almeida EGFR-AF TRISTANIAN >60 Normal >=60 [facility] Comment on above: Performed By: #### B MP, LIVER, LIPA, CHACHA #### [facility] [address] [address] [address] Aleksandar Almeida EGFR-NON AF TRISTANIAN >60 Normal >=60 [facility] Comment on above: Performed By: #### B MP, LIVER, LIPA, CHACHA #### [facility] [address] [place] [address] Dr. Aleksandar Almeida Glucose [Mass/Vol] 357 mg/dL Critically high 74-106 [facility] Comment on above: Performed By: #### B MP, LIVER, LIPA, CHACHA #### [facility] [address] [place] [address] Dr. Aleksandar Almeida Potassium [Moles/Vol] 3.9 mmol/L Normal 3.5-5.1 [facility] Comment on above: Performed By: #### B MP, LIVER, LIPA, CHACHA #### [facility] [address] [place] [address] Dr. Aleksandar Almeida Sodium [Moles/Vol] 137 mmol/L Normal 136-145 [facility] Comment on above: Performed By: #### B MP, LIVER, LIPA, CHACHA #### [facility] [address] [place] [address] Dr. Aleksandar Almeida Urea nitrogen [Mass/Vol] 17.0 mg/dL Normal 7.0-18.0 [facility] Comment on above: Performed By: #### B MP, LIVER, LIPA, CHACHA #### [facility] [address] [place] [address] Dr. Aleksandar Almeida Urea nitrogen/Creatinine [Mass ratio] 16.2 mg/mg Normal [facility] Comment on above: Performed By: #### B MP, LIVER, LIPA, CHACHA #### [facility] [address] [place], [place] [address] Dr. Aleksandar Almeida TACROLIMUSon 08-10-2022 Tacrolimus (Bld) [Mass/Vol] 7.2 ng/mL Normal 2.0 - 15.0 [facility] Comment on above: Result Comment: NOTE : Result was obtained using a chemiluminescent microparticle immunoassay (CMIA) on the [employer] i system. Optimal therapeutic ranges for immuno- suppressant drugs depend upon an individual patient's current clinical state, type of organ transplant, time post-transplant, co-administration of other immunosuppressants, and other clinical factors. The results of this test should be correlated with additional clinical and laboratory data before changes in treatment regimens are made. Performed By: #### F [id number] #### [facility] [address] [place] [address] Albumin [Mass/volume] in Ser um or PlasmaOrdered By: Sharan Ayoub on 08-09-2022 Albumin [Mass/Vol] 3.7 g/dL 3.2-5.5 [facility] Basophils Auto (Bld) [#/Vol] Ordered By: Sharan Ayoub on 08-09-2022 Basophils (Bld) [#/Vol] 0.1 10*3/uL 0.0-0.2 [facility] Basophils/100 WBC Auto (Bld) Ordered By: Sharan Ayoub on 08-09-2022 Basophils/100 WBC (Bld) 1.1 % . [facility] Creatinine and Glomerular fi ltration rate.predicted panel (S/P/Bld)Ordered By: Sharan Ayoub on 08-09-2022 Creatinine [Mass/Vol] 1.13 mg/dL 0.64-1.27 [facility] Eosinophils Auto (Bld) [#/Vo l]Ordered By: Sharan Ayoub on 08-09-2022 Eosinophils (Bld) [#/Vol] 0.0 10*3/uL 0.0-0.45 [facility] Eosinophils/100 WBC Auto (Bl d)Ordered By: Sharan Ayoub on 08-09-2022 Eosinophils/100 WBC (Bld) 0.7 % . [facility] Erythrocyte distribution wid th Auto (RBC) [Ratio]Ordered By: Sharan Ayoub on 08-09-2022 Erythrocyte distribution width (RBC) [Ratio] 13.3 % 12.0-14.8 [facility] Estimated glomerular filtrat ion rate (GFR) non- AmericanOrdered By: Sharan Ayoub on 08-09-2022 GFR/1.73 sq M.predicted among non-blacks MDRD (S/P/Bld) [Vol rate/Area] > 60 mL/Min [facility] Globulin Calc (S) [Mass/Vol] Ordered By: Sharan Ayoub on 08-09-2022 Globulin (S) [Mass/Vol] 3.6 g/dL [facility] Hematocrit Auto (Bld) [Volum e fraction]Ordered By: Sharan Ayoub on 08-09-2022 Hematocrit (Bld) [Volume fraction] 42.9 % 38.8-50.0 [facility] Hemoglobin [Mass/volume] in BloodOrdered By: Sharan Ayoub on 08-09-2022 Hemoglobin (Bld) [Mass/Vol] 14.5 g/dL 13.0-17.0 [facility] - Hematology and Cell countsOrdered By: Sharan Ayoub on 08-09-2022 Nucleated RBC/100 WBC (Bld) [Ratio] 0.1 % 0-0.5 [facility] Leukocytes [#/volume] in Blo od by Automated countOrdered By: Sharan Ayoub on 08-09-2022 WBC (Bld) [#/Vol] 5.8 10*3/uL 4.5-11.0 [facility] Lymphocytes Auto (Bld) [#/Vo l]Ordered By: Sharan Ayoub on 08-09-2022 Lymphocytes (Bld) [#/Vol] 2.4 10*3/uL 1.00-4.8 [facility] Lymphocytes/100 WBC Auto (Bl d)Ordered By: Sharan Ayoub on 08-09-2022 Lymphocytes/100 WBC (Bld) 41.4 % . [facility] MCH Auto (RBC) [Entitic mass ]Ordered By: Sharan Ayoub on 08-09-2022 MCH (RBC) [Entitic mass] 31.2 pg 27.5-35.2 [facility] MCHC Auto (RBC) [Mass/Vol]Or dered By: Sharan Ayoub on 08-09-2022 MCHC (RBC) [Mass/Vol] 33.8 g/dL 32.5-35.6 [facility] MCV Auto (RBC) [Entitic vol] Ordered By: Sharan Ayoub on 08-09-2022 MCV (RBC) [Entitic vol] 92.5 fL 83.5-101 [facility] Monocytes Auto (Bld) [#/Vol] Ordered By: Sharan Ayoub on 08-09-2022 Monocytes (Bld) [#/Vol] 0.4 10*3/uL 0.0-0.8 [facility] Monocytes/100 WBC Auto (Bld) Ordered By: Sharan Ayoub on 08-09-2022 Monocytes/100 WBC (Bld) 7.6 % . [facility] Neutrophils Auto (Bld) [#/Vo l]Ordered By: Sharan Ayoub on 08-09-2022 Neutrophils (Bld) [#/Vol] 2.9 10*3/uL 1.8-7.7 [facility] Neutrophils/100 WBC Auto (Bl d)Ordered By: Sharan Ayoub on 08-09-2022 Neutrophils/100 WBC (Bld) 49.2 % . [facility] No Panel InformationOrdered By: Sharan Ayoub on 08-09-2022 Estimated GFR () > 60 mL/Min [facility] Comment on above: GFR estimated refere nce range: According to KDOQI guidelines, <60 ml/min/1.73m2 is sufficient to diagnose a patient with chronic kidney disease. Pharmacy Creatinine Clearance (Chem N/A [facility] Tacrolimus (Prograf) Level Sent to [facility] Platelet mean volume Auto (B ld) [Entitic vol]Ordered By: Sharan Ayoub on 08-09-2022 Platelet mean volume (Bld) [Entitic vol] 10.2 fL 6.6-10.1 [facility] Platelets Auto (Bld) [#/Vol] Ordered By: Sharan Ayoub on 08-09-2022 Platelets (Bld) [#/Vol] 202 10*3/uL 150-450 [facility] Protein [Mass/volume] in Ser um or PlasmaOrdered By: Sharan Ayoub on 08-09-2022 Protein [Mass/Vol] 7.3 g/dL 6.1-7.9 [facility] RBC Auto (Bld) [#/Vol]Ordere d By: Sharan Ayoub on 08-09-2022 RBC (Bld) [#/Vol] 4.64 10*6/uL 3.90-5.60 [facility] Serum or plasma alanine weaver otransferase measurement without P-5'-P (enzymatic activiOrdered By: Sharan Ayoub on 08-09-2022 ALT No additional P-5'-P [Catalytic activity/Vol] 73 U/L 10-60 [facility] Serum or plasma albumin/glob ulin mass ratioOrdered By: Sharan Ayoub on 08-09-2022 Albumin/Globulin [Mass ratio] 1.0 {ratio} [facility] Serum or plasma alkaline roe sphatase measurement (enzymatic activity/volume)Ordered By: Sharan Ayoub on 08-09-2022 ALP [Catalytic activity/Vol] 134 U/L 32-92 [facility] Serum or plasma anion gap de terminationOrdered By: Sharan Ayoub on 08-09-2022 Anion gap [Moles/Vol] 10.3 mmol/L 6.0-15.[address] [facility] Serum or plasma aspartate am inotransferase measurement (enzymatic activity/volume)Ordered By: Sharan Ayoub on 08-09-2022 AST [Catalytic activity/Vol] 73 U/L 10-42 [facility] Serum or plasma calcium vini urement (mass/volume)Ordered By: Sharan Ayoub on 08-09-2022 Calcium [Mass/Vol] 9.5 mg/dL 8.2-10.2 [facility] Serum or plasma chloride jose surement (moles/volume)Ordered By: Sharan Ayoub on 11-08-2022 Chloride [Moles/Vol] 98 mmol/L 95-114 [facility] Serum or plasma glucose vini urement (mass/volume)Ordered By: Sharan Ayoub on 08-09-2022 Glucose [Mass/Vol] 154 mg/dL 70-100 [facility] Comment on above: ADA recommended refe rence rangeRandom Glucose Reference Range is dependent on time and content of last meal. Glucose of more than 200 mg/dL in a nonstressed, ambulatory subject supports the diagnosis of Diabetes Mellitus. Serum or plasma potassium me asurement (moles/volume)Ordered By: Sharan Ayoub on 08-09-2022 Potassium [Moles/Vol] 3.7 mmol/L 3.5-5.1 [facility] Serum or plasma sodium measu rement (moles/volume)Ordered By: Sharan Ayoub on 08-09-2022 Sodium [Moles/Vol] 135 mmol/L 136-146 [facility] Serum or plasma total biliru bin measurement (mass/volume)Ordered By: Sharan Ayoub on 08-09-2022 Bilirubin [Mass/Vol] 1.0 mg/dL 0.3-1.2 [facility] Serum or plasma total carbon dioxide measurement (moles/volume)Ordered By: Sharan Ayoub on 08-09-2022 CO2 [Moles/Vol] 30.4 mmol/L 22.0-30.0 [facility] Serum or plasma urea nitroge n measurement (mass/volume)Ordered By: Sharan Ayoub on 08-09-2022 Urea nitrogen [Mass/Vol] 11 mg/dL 9-23 [facility] Tacrolimuson 08-09-2022 Tacrolimus (Bld) [Mass/Vol] 7.2 ng/mL 2.0 - 15.0 [facility] [address] [facility] Work Phone: Comment on above: NOTE: Result was obt ained using a chemiluminescent microparticle immunoassay (CMIA) on the [employer]er i system.Optimal therapeutic ranges for immuno-suppressant drugs [...] transplant; JOSEFINA = N; Verified Transmission to [facility] [id number] Formulary Override Reason: Drug is not indicated for Patient condition Patient Discussion/Summary continue your current medications as prescribed 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 Normal [facility] Tobacco Screening.on Fall risk assessment a) No falls within the last year [facility] Work Phone: Tobacco use status CPHS b) No [facility] Work Phone: No Panel InformationOrdered By: Sharan Ayoub on 05-11-2022 Tacrolimus (Prograf) Level Sent to [facility] Tacrolimuson 05-11-2022 Tacrolimus (Bld) [Mass/Vol] 9.9 ng/mL 2.0 - 15.0 [facility] [address] Work Phone: Comment on above: NOTE: Result was obt ained using a chemiluminescent microparticle immunoassay (CMIA) on the T[employer] Worker i system.Optimal therapeutic ranges for immuno-suppressant drugs depend upon an individualpatient's current clinical state, type oforgan transplant, time post-transplant,co-administration of other immunosuppressants,and other clinical factors. The results ofthis test should be correlated with additionalclinical and laboratory data before changesin treatment regimens are made. Tacrolimuson 05-04-2022 Tacrolimus (Bld) [Mass/Vol] 15.9 ng/mL above high threshold 2.0 - 15.0 [facility] BradfordA [facility] Work Phone: Comment on above: NOTE: Result was obt ained using a chemiluminescent microparticle immunoassay (CMIA) on the T[employer]er i system.Optimal therapeutic ranges for immuno-suppressant drugs depend upon an individualpatient's current clinical state, type oforgan transplant, time post-transplant,co-administration of other immunosuppressants,and other clinical factors. The results ofthis test should be correlated with additionalclinical and laboratory data before changesin treatment regimens are made. Albumin [Mass/volume] in Ser um or PlasmaOrdered By: Sharan Ayoub on 05-03-2022 Albumin [Mass/Vol] 3.7 g/dL 3.2-5.5 [facility] Basophils Auto (Bld) [#/Vol] Ordered By: Sharan Ayoub on 05-03-2022 Basophils (Bld) [#/Vol] 0.0 10*3/uL 0.0-0.2 [facility] Basophils/100 WBC Auto (Bld) Ordered By: Sharan Ayoub on 05-03-2022 Basophils/100 WBC (Bld) 0.3 % . [facility] Blood hemoglobin measurement (mass/volume)Ordered By: Sharan Ayoub on 05-03-2022 Hemoglobin (Bld) [Mass/Vol] 14.4 g/dL 13.0-17.0 [facility] Blood leukocytes automated c ount (number/volume)Ordered By: Sharan Ayoub on 05-03-2022 WBC (Bld) [#/Vol] 7.1 10*3/uL 4.5-11.0 [facility] Creatinine and Glomerular fi ltration rate.predicted panel (S/P/Bld)Ordered By: Sharan Ayoub on 05-03-2022 Creatinine [Mass/Vol] 1.10 mg/dL 0.64-1.27 [facility] Direct bilirubin measurement Ordered By: Sharan Ayoub on 05-03-2022 Bilirubin.direct [Mass/Vol] 0.2 mg/dL 0.0-0.4 [facility] Eosinophils Auto (Bld) [#/Vo l]Ordered By: Sharan Ayoub on 05-03-2022 Eosinophils (Bld) [#/Vol] 0.2 10*3/uL 0.0-0.45 [facility] Eosinophils/100 WBC Auto (Bl d)Ordered By: Sharan Ayoub on 05-03-2022 Eosinophils/100 WBC (Bld) 2.3 % . [facility] Erythrocyte distribution wid th Auto (RBC) [Ratio]Ordered By: Sharan Ayoub on 05-03-2022 Erythrocyte distribution width (RBC) [Ratio] 13.2 % 12.0-14.8 [facility] Estimated glomerular filtrat ion rate (GFR) non- AmericanOrdered By: Sharan Ayoub on 05-03-2022 GFR/1.73 sq M.predicted among non-blacks MDRD (S/P/Bld) [Vol rate/Area] > 60 mL/Min [facility] Globulin Calc (S) [Mass/Vol] Ordered By: Sharan Ayoub on 05-03-2022 Globulin (S) [Mass/Vol] 3.0 g/dL [facility] Hematocrit Auto (Bld) [Volum e fraction]Ordered By: Sharan Ayoub on 05-03-2022 Hematocrit (Bld) [Volume fraction] 42.8 % 38.8-50.0 [facility] - Chemistry and C hemistry - challengeOrdered By: Sharan Ayoub on 05-03-2022 Amylase [Catalytic activity/Vol] 327 U/L 7-64 [facility] - Hematology and Cell countsOrdered By: Sharan Ayoub on 05-03-2022 Nucleated RBC/100 WBC (Bld) [Ratio] 0.3 % 0-0.5 [facility] Lymphocytes Auto (Bld) [#/Vo l]Ordered By: Sharan Ayoub on 05-03-2022 Lymphocytes (Bld) [#/Vol] 3.6 10*3/uL 1.00-4.8 [facility] Lymphocytes/100 WBC Auto (Bl d)Ordered By: Sharan Ayoub on 05-03-2022 Lymphocytes/100 WBC (Bld) 50.0 % . [facility] MCH Auto (RBC) [Entitic mass ]Ordered By: Sharan Ayoub on 05-03-2022 MCH (RBC) [Entitic mass] 30.9 pg 27.5-35.2 [facility] MCHC Auto (RBC) [Mass/Vol]Or dered By: Sharan Ayoub on 05-03-2022 MCHC (RBC) [Mass/Vol] 33.7 g/dL 32.5-35.6 [facility] MCV Auto (RBC) [Entitic vol] Ordered By: Sharan Ayoub on 05-03-2022 MCV (RBC) [Entitic vol] 91.8 fL 83.5-101 [facility] Monocytes Auto (Bld) [#/Vol] Ordered By: Sharan Ayoub on 05-03-2022 Monocytes (Bld) [#/Vol] 0.6 10*3/uL 0.0-0.8 [facility] Monocytes/100 WBC Auto (Bld) Ordered By: Sharan Ayoub on 05-03-2022 Monocytes/100 WBC (Bld) 8.9 % . [facility] Neutrophils Auto (Bld) [#/Vo l]Ordered By: Sharan Ayoub on 05-03-2022 Neutrophils (Bld) [#/Vol] 2.8 10*3/uL 1.8-7.7 [facility] Neutrophils/100 WBC Auto (Bl d)Ordered By: Sharan Ayoub on 05-03-2022 Neutrophils/100 WBC (Bld) 38.5 % . [facility] No Panel InformationOrdered By: Sharan Ayoub on 05-03-2022 Estimated GFR () > 60 mL/Min [facility] Comment on above: GFR estimated refere nce range: According to KDOQI guidelines, <60 ml/min/1.73m2 is sufficient to diagnose a patient with chronic kidney disease. Pharmacy Creatinine Clearance (Chem N/A [facility] Tacrolimus (Prograf) Level Sent to [facility] Platelet mean volume Auto (B ld) [Entitic vol]Ordered By: Sharan Ayoub on 05-03-2022 Platelet mean volume (Bld) [Entitic vol] 10.2 fL 6.6-10.1 [facility] Platelets Auto (Bld) [#/Vol] Ordered By: Sharan Ayoub on 05-03-2022 Platelets (Bld) [#/Vol] 247 10*3/uL 150-450 [facility] Protein [Mass/volume] in Ser um or PlasmaOrdered By: Sharan Ayoub on 05-03-2022 Protein [Mass/Vol] 6.7 g/dL 6.1-7.9 [facility] RBC Auto (Bld) [#/Vol]Ordere d By: Sharan Ayoub on 05-03-2022 RBC (Bld) [#/Vol] 4.66 10*6/uL 3.90-5.60 [facility] Serum or plasma alanine weaver otransferase measurement without P-5'-P (enzymatic activiOrdered By: Sharan Ayoub on 05-03-2022 ALT No additional P-5'-P [Catalytic activity/Vol] 47 U/L 10-60 [facility] Serum or plasma albumin/glob ulin mass ratioOrdered By: Sharan Ayoub on 05-03-2022 Albumin/Globulin [Mass ratio] 1.2 {ratio} [facility] Serum or plasma alkaline roe sphatase measurement (enzymatic activity/volume)Ordered By: Sharan Ayoub on 05-03-2022 ALP [Catalytic activity/Vol] 123 U/L 32-92 [facility] Serum or plasma aspartate am inotransferase measurement (enzymatic activity/volume)Ordered By: Sharan Ayoub on 05-03-2022 AST [Catalytic activity/Vol] 42 U/L 10-42 [facility] Serum or plasma calcium vini urement (mass/volume)Ordered By: Sharan Ayoub on 05-03-2022 Calcium [Mass/Vol] 9.4 mg/dL 8.2-10.2 [facility] Serum or plasma chloride jose surement (moles/volume)Ordered By: Sharan Ayoub on 05-03-2022 Chloride [Moles/Vol] 104 mmol/L 95-114 [facility] Serum or plasma glucose vini urement (mass/volume)Ordered By: Sharan Ayoub on 05-03-2022 Glucose [Mass/Vol] 117 mg/dL 70-100 [facility] Comment on above: ADA recommended refe rence range Random Glucose Reference Range is dependent on time and content of last meal. Glucose of more than 200 mg/dL in a nonstressed, ambulatory subject supports the diagnosis of Diabetes Mellitus. Serum or plasma non-glucuron idated bilirubin measurement (mass/volume)Ordered By: Sharan Ayoub on 05-03-2022 Bilirubin.indirect [Mass/Vol] 0.5 mg/dL [facility] Serum or plasma potassium me asurement (moles/volume)Ordered By: Sharan Ayoub on 05-03-2022 Potassium [Moles/Vol] 4.1 mmol/L 3.5-5.1 [facility] Serum or plasma sodium measu rement (moles/volume)Ordered By: Sharan Ayoub on 05-03-2022 Sodium [Moles/Vol] 140 mmol/L 136-146 [facility] Serum or plasma total biliru bin measurement (mass/volume)Ordered By: Sharan Ayoub on 05-03-2022 Bilirubin [Mass/Vol] 0.7 mg/dL 0.3-1.2 [facility] Serum or plasma total carbon dioxide measurement (moles/volume)Ordered By: Sharan Ayoub on 05-03-2022 CO2 [Moles/Vol] 28.6 mmol/L 22.0-30.0 [facility] Serum or plasma urea nitroge n measurement (mass/volume)Ordered By: Sharan Ayoub on 05-03-2022 Urea nitrogen [Mass/Vol] 16 mg/dL 9-23 [facility] Basophils Auto (Bld) [#/Vol] Ordered By: Sharan Ayoub on 03-11-2022 Basophils (Bld) [#/Vol] 0.1 10*3/uL 0.0-0.2 [facility] Basophils/100 WBC Auto (Bld) Ordered By: Sharan Ayoub on 03-11-2022 Basophils/100 WBC (Bld) 1.2 % . [facility] Blood hemoglobin measurement (mass/volume)Ordered By: Sharan Ayoub on 03-11-2022 Hemoglobin (Bld) [Mass/Vol] 14.1 g/dL 13.0-17.0 [facility] Blood leukocytes automated c ount (number/volume)Ordered By: Sharan Ayoub on 03-11-2022 WBC (Bld) [#/Vol] 5.0 10*3/uL 4.5-11.0 [facility] Body fluid albumin measureme nt (mass/volume)Ordered By: Sharan Ayoub on 03-11-2022 Albumin (Body fld) [Mass/Vol] 3.6 g/dL 3.2-5.5 [facility] Creatinine and Glomerular fi ltration rate.predicted panel (S/P/Bld)Ordered By: Sharan Ayoub on 03-11-2022 Creatinine [Mass/Vol] 1.15 mg/dL 0.64-1.27 [facility] Direct bilirubin measurement Ordered By: Sharan Ayoub on 03-11-2022 Bilirubin.direct [Mass/Vol] 0.2 mg/dL 0.0-0.4 [facility] Eosinophils Auto (Bld) [#/Vo l]Ordered By: Sharan Ayoub on 03-11-2022 Eosinophils (Bld) [#/Vol] 0.1 10*3/uL 0.0-0.45 [facility] Eosinophils/100 WBC Auto (Bl d)Ordered By: Sharan Ayoub on 03-11-2022 Eosinophils/100 WBC (Bld) 2.1 % . [facility] Erythrocyte distribution wid th Auto (RBC) [Ratio]Ordered By: Sharan Ayoub on 03-11-2022 Erythrocyte distribution width (RBC) [Ratio] 13.3 % 12.0-14.8 [facility] Estimated glomerular filtrat ion rate (GFR) non- AmericanOrdered By: Sharan Ayoub on 03-11-2022 GFR/1.73 sq M.predicted among non-blacks MDRD (S/P/Bld) [Vol rate/Area] > 60 mL/Min [facility] Globulin Calc (S) [Mass/Vol] Ordered By: Sharan Ayoub on 03-11-2022 Globulin (S) [Mass/Vol] 2.9 g/dL [facility] Hematocrit Auto (Bld) [Volum e fraction]Ordered By: Sharan Ayoub on 03-11-2022 Hematocrit (Bld) [Volume fraction] 41.4 % 38.8-50.0 [facility] Laboratory - Chemistry and C hemistry - challengeOrdered By: Sharan Ayoub on 03-11-2022 Amylase [Catalytic activity/Vol] 269 U/L 7-64 [facility] Laboratory - Hematology and Cell countsOrdered By: Sharan Ayoub on 03-11-2022 Nucleated RBC/100 WBC (Bld) [Ratio] 0.1 % 0-0.5 [facility] Lymphocytes Auto (Bld) [#/Vo l]Ordered By: Sharan Ayoub on 03-11-2022 Lymphocytes (Bld) [#/Vol] 2.4 10*3/uL 1.00-4.8 [facility] Lymphocytes/100 WBC Auto (Bl d)Ordered By: Sharan Ayoub on 03-11-2022 Lymphocytes/100 WBC (Bld) 47.7 % . [facility] MCH Auto (RBC) [Entitic mass ]Ordered By: Sharan Ayoub on 03-11-2022 MCH (RBC) [Entitic mass] 31.4 pg 27.5-35.2 [facility] MCHC Auto (RBC) [Mass/Vol]Or dered By: Sharan Ayoub on 03-11-2022 MCHC (RBC) [Mass/Vol] 34.0 g/dL 32.5-35.6 [facility] MCV Auto (RBC) [Entitic vol] Ordered By: Sharan Ayoub on 03-11-2022 MCV (RBC) [Entitic vol] 92.2 fL 83.5-101 [facility] Monocytes Auto (Bld) [#/Vol] Ordered By: Sharan Ayoub on 03-11-2022 Monocytes (Bld) [#/Vol] 0.5 10*3/uL 0.0-0.8 [facility] Monocytes/100 WBC Auto (Bld) Ordered By: Sharan Ayoub on 03-11-2022 Monocytes/100 WBC (Bld) 10.3 % . [facility] Neutrophils Auto (Bld) [#/Vo l]Ordered By: Sharan Ayoub on 03-11-2022 Neutrophils (Bld) [#/Vol] 1.9 10*3/uL 1.8-7.7 [facility] Neutrophils/100 WBC Auto (Bl d)Ordered By: Sharan Ayoub on 03-11-2022 Neutrophils/100 WBC (Bld) 38.7 % . [facility] No Panel InformationOrdered By: Sharan Ayoub on 03-11-2022 Estimated GFR () > 60 mL/Min [facility] Comment on above: GFR estimated refere nce range: According to KDOQI guidelines, <60 ml/min/1.73m2 is sufficient to diagnose a patient with chronic kidney disease. Pharmacy Creatinine Clearance (Chem N/A [facility] Tacrolimus (Prograf) Level Sent to [facility] Platelet mean volume Auto (B ld) [Entitic vol]Ordered By: Sharan Ayoub on 03-11-2022 Platelet mean volume (Bld) [Entitic vol] 10.4 fL 6.6-10.1 [facility] Platelets Auto (Bld) [#/Vol] Ordered By: Sharan Ayoub on 03-11-2022 Platelets (Bld) [#/Vol] 232 10*3/uL 150-450 [facility] Protein [Mass/volume] in Ser um or PlasmaOrdered By: Sharan Ayoub on 03-11-2022 Protein [Mass/Vol] 6.5 g/dL 6.1-7.9 [facility] RBC Auto (Bld) [#/Vol]Ordere d By: Sharan Ayoub on 03-11-2022 RBC (Bld) [#/Vol] 4.49 10*6/uL 3.90-5.60 [facility] Serum or plasma alanine weaver otransferase measurement without P-5'-P (enzymatic activiOrdered By: Sharan Ayoub on 03-11-2022 ALT No additional P-5'-P [Catalytic activity/Vol] 54 U/L 10-60 [facility] Serum or plasma albumin/glob ulin mass ratioOrdered By: Sharan Ayoub on 03-11-2022 Albumin/Globulin [Mass ratio] 1.2 {ratio} [facility] Serum or plasma alkaline roe sphatase measurement (enzymatic activity/volume)Ordered By: Sharan Ayoub on 03-11-2022 ALP [Catalytic activity/Vol] 109 U/L 32-92 [facility] Serum or plasma aspartate am inotransferase measurement (enzymatic activity/volume)Ordered By: Sharan Ayoub on 03-11-2022 AST [Catalytic activity/Vol] 59 U/L 10-42 [facility] Serum or plasma calcium vini urement (mass/volume)Ordered By: Sharan Ayoub on 03-11-2022 Calcium [Mass/Vol] 9.5 mg/dL 8.2-10.2 [facility] Serum or plasma chloride jose surement (moles/volume)Ordered By: Sharan Ayoub on 03-11-2022 Chloride [Moles/Vol] 102 mmol/L 95-114 [facility] Serum or plasma glucose vini urement (mass/volume)Ordered By: Sharan Ayoub on 03-11-2022 Glucose [Mass/Vol] 219 mg/dL 70-100 [facility] Comment on above: ADA recommended refe rence range Random Glucose Reference Range is dependent on time and content of last meal. Glucose of more than 200 mg/dL in a nonstressed, ambulatory subject supports the diagnosis of Diabetes Mellitus. Serum or plasma non-glucuron idated bilirubin measurement (mass/volume)Ordered By: Sharan Ayoub on 03-11-2022 Bilirubin.indirect [Mass/Vol] 0.8 mg/dL [facility] Serum or plasma potassium me asurement (moles/volume)Ordered By: Sharan Ayoub on 03-11-2022 Potassium [Moles/Vol] 4.3 mmol/L 3.5-5.1 [facility] Serum or plasma sodium measu rement (moles/volume)Ordered By: Sharan Ayoub on 03-11-2022 Sodium [Moles/Vol] 140 mmol/L 136-146 [facility] Serum or plasma total biliru bin measurement (mass/volume)Ordered By: Sharan Ayoub on 03-11-2022 Bilirubin [Mass/Vol] 1.0 mg/dL 0.3-1.2 [facility] Serum or plasma total carbon dioxide measurement (moles/volume)Ordered By: Sharan Ayoub on 03-11-2022 CO2 [Moles/Vol] 27.7 mmol/L 22.0-30.0 [facility] Serum or plasma urea nitroge n measurement (mass/volume)Ordered By: Sharan Ayoub on 03-11-2022 Urea nitrogen [Mass/Vol] 11 mg/dL 06-24 [facility] Tacrolimuson 03-11-2022 Tacrolimus (Bld) [Mass/Vol] 11.7 ng/mL 2.0 - 15.0 [facility] [address] [place] Work Phone: Comment on above: NOTE: Result was obt ained using a chemiluminescent microparticle immunoassay (CMIA) on the [employer] i system.Optimal therapeutic ranges for immuno-suppressant drugs depend upon an individualpatient's current clinical state, type oforgan transplant, time post-transplant,co-administration of other immunosuppressants,and other clinical factors. The results ofthis test should be correlated with additionalclinical and laboratory data before changesin treatment regimens are made. AMYLASEon 12-24-2021 Amylase [Catalytic activity/Vol] 60 U/L Normal 25-115 [facility] Comment on above: Performed By: #### L IPA, CHACHA, LIVER, BMP #### [facility] [address] [place] [address] Dr. Aleksandar Almeida CBC AUTO DIFFon 12-24-2021 BASO # 0.1 103/ul Normal 0.0-0.1 [facility] Comment on above: Performed By: #### C BC #### [facility] [address] [place] [address] Dr. Aleksandar Almeida Basophils/100 WBC (Bld) 0.7 % Normal 0.2-2.0 [facility] Comment on above: Performed By: #### C BC #### [facility] [address] [place] [address] Dr. Aleksandar Almeida EO # 0.0 103/ul Normal 0.0-0.7 [facility] Comment on above: Performed By: #### C BC #### [facility] [address] [place] [address] Dr. Aleksandar Almeida Eosinophils/100 WBC (Bld) 0.0 % Critically low 0.9-7.0 [facility] Comment on above: Performed By: #### C BC #### [facility] [address] [place] [address] Dr. Aleksandar Almeida Erythrocyte distribution width (RBC) [Ratio] 11.9 % Normal 11.0-15.0 [facility] Comment on above: Performed By: #### C BC #### [facility] [address] [place] [address] Dr. Aleksandar Almeida Hematocrit (Bld) [Volume fraction] 42.0 % Normal 42.0-54.0 [facility] Comment on above: Performed By: #### C BC #### [facility] [address] [place] [address] Dr. Aleksandar Almeida Hemoglobin (Bld) [Mass/Vol] 14.6 g/dL Normal 14.0-18.0 [facility] Comment on above: Performed By: #### C BC #### [facility] [address] [place] [address] Dr. Aleksandar Almeida IG # 0.02 10e3/ul Normal 0.00-0.03 [facility] Comment on above: Performed By: #### C BC #### [facility] [address] [place] [address] Dr. Aleksandar Almeida IG % 0.2 % Normal 0.0-0.5 [facility] Comment on above: Performed By: #### C BC #### [facility] [address] [place] [address] Dr. Aleksandar Almeida LYMPH # 1.5 103/ul Normal 1.2-3.8 [facility] Comment on above: Performed By: #### C BC #### [facility] [address] [place] [address] Dr. Aleksandar Almeida Lymphocytes/100 WBC (Bld) 18.0 % Critically low 20.5-60.0 [facility] Comment on above: Performed By: #### C BC #### [facility] [address] [place] [address] Dr. Aleksandar Almeida MANUAL DIFF REQ NO Normal [facility] Comment on above: Performed By: #### C BC #### [facility] [address] [place] [address] Dr. Aleksandar Almeida MCH (RBC) [Entitic mass] 30.9 pg Normal 25.9-34.0 [facility] Comment on above: Performed By: #### C BC #### [facility] [address] [place] [address] Dr. Aleksandar Almeida MCHC (RBC) [Mass/Vol] 34.8 g/dL Normal 29.9-35.2 [facility] Comment on above: Performed By: #### C BC #### [facility] [address] [place] [address] Dr. Aleksandar Almeida MCV (RBC) [Entitic vol] 89.0 fL Normal 80.0-94.0 [facility] Comment on above: Performed By: #### C BC #### [facility] [address] [place] [address] Dr. Aleksandar Almeida MONO # 0.4 103/ul Normal 0.3-0.8 [facility] Comment on above: Performed By: #### C BC #### [facility] [address] [place] [address] Dr. Aleksandar Almeida Monocytes/100 WBC (Bld) 5.3 % Normal 1.7-12.0 [facility] Comment on above: Performed By: #### C BC #### [facility] [address] [place] [address] Dr. Aleksandar Almeida NEUT # 6.1 103/ul Normal 1.4-6.5 [facility] Comment on above: Performed By: #### C BC #### [facility] [address] [place] [address] Dr. Aleksandar Almeida Neutrophils/100 WBC (Bld) 75.8 % Critically high 43.0-75.0 [facility] Comment on above: Performed By: #### C BC #### [facility] [address] [place] [address] Dr. Aleksandar Almeida Platelet mean volume (Bld) [Entitic vol] 10.9 fL Normal 9.5-13.5 [facility] Comment on above: Performed By: #### C BC #### [facility] [address] [address] [address] Aleksandar Almeida PLT 235 103/ul Normal 150-450 [facility] Comment on above: Performed By: #### C BC #### [facility] [address] [place] [address] Dr. Aleksandar Almeida RBC 4.72 106/ul Normal 4.70-6.10 [facility] Comment on above: Performed By: #### C BC #### [facility] [address] [place] [address] Dr. Aleksandar Almeida WBC 8.1 103/ul Normal 4.0-11.0 [facility] Comment on above: Performed By: #### C BC #### [facility] [address] [place] [address] ABD/PELV W CONon [...] BAO GOMES Date: 2021-12-24 13:18 Normal [facility] ER URINE PROFILEon 2 Bilirubin Ql (U) Negative Normal NEGATIVE [facility] Comment on above: Performed By: #### U MICRO, ERUR ####[facility] [address] [place], [place] [address]Dr. Aleksandar Almeida Clarity (U) CLEAR Normal CLEAR [facility] Comment on above: Performed By: #### U MICRO, ERUR ####[facility] [address] [place], [place] [address]Dr. Aleksandar lAmeida Color (U) LT. YELLOW Normal YELLOW [facility] Comment on above: Performed By: #### U MICRO, ERUR ####[facility] [address] [place], [place] [address]Dr. Aleksandar Almeida ERUAHD A micrscopic examina tion will be performed if indicated. Normal [facility] Comment on above: Performed By: #### U MICRO, ERUR ####[facility] [address] [place], [place] [address]Dr. Aleksandar Almeida Glucose Ql (U) >1000 Abnormal NEGATIVE [facility] Comment on above: Performed By: #### U MICRO, ERUR ####[facility] [address] [place], [place] [address]Dr. Aleksandar Almeida Hemoglobin Ql (U) SMALL Abnormal NEGATIVE [facility] Comment on above: Performed By: #### U MICRO, ERUR ####[facility] [address] [place], [place] [address]Dr. Aleksandar Almeida Ketones Ql (U) Negative Normal NEGATIVE [facility] Comment on above: Performed By: #### U MICRO, ERUR ####[facility] [address] [address]Dr. Aleksandar Almeida LEUKOCYTES TRACE Abnormal NEGATIVE [facility] Comment on above: Performed By: #### U MICRO, ERUR ####[facility] [address] [address]Dr. Aleksandar Almeida Nitrite Ql (U) Negative Normal NEGATIVE [facility] Comment on above: Performed By: #### U MICRO, ERUR ####[facility] [address] [address]Dr. Aleksandar Almeida pH (U) 6.5 [pH] Normal 5-9 [facility] Comment on above: Performed By: #### U MICRO, ERUR ####[facility] [address] [address]Dr. Aleksandar Almeida SPEC GRAVITY <=1.005 Abnormal 1.005-<=1.02 5 [facility] Comment on above: Performed By: #### U MICRO, ERUR ####[facility] [address] [place], [place] [address]Dr. Aleksandar Almeida UA PROTEIN Negative Normal NEGATIVE/ TRACE [facility] Comment on above: Performed By: #### U MICRO, ERUR ####[facility] [address] [place], [place] [address]Dr. Aleksandar Almeida UR MICRO IND INDICATED Normal [facility] Comment on above: Performed By: #### U MICRO, ERUR ####[facility] [address] [address]Dr. Aleksandar Almeida Urobilinogen Qn (U) 0.2 {Jacinta'U}/dL Normal 0.2 - 1. 0 [facility] Comment on above: Performed By: #### U MICRO, ERUR ####[facility] [address] [place], [place] [address]Dr. Aleksandar Almeida LIPASEon 12-24-2021 Lipase [Catalytic activity/Vol] 64.0 U/L Normal 23.0-300.0 [facility] Comment on above: Performed By: #### L IPA, CHACHA, LIVER, BMP #### [facility] [address] [place] [address] Dr. Aleksandar Almeida LIVER PROFILEon 12-24-2021 Albumin [Mass/Vol] 4.0 g/dL Normal 3.4-5.0 [facility] Comment on above: Performed By: #### L IPA, CHACHA, LIVER, BMP #### [facility] [address] [place] [address] Dr. Aleksandar Almeida Albumin/Globulin [Mass ratio] 1.0 {ratio} Normal [facility] Comment on above: Performed By: #### L IPA, CHACHA, LIVER, BMP #### [facility] [address] [place] [address] Dr. Aleksandar Almeida ALP [Catalytic activity/Vol] 123 U/L Critically high 46-116 [facility] Comment on above: Performed By: #### L IPA, CHACHA, LIVER, BMP #### [facility] [address] [place] [address] Dr. Aleksandar Almeida ALT [Catalytic activity/Vol] 43 U/L Normal 16-63 [facility] Comment on above: Performed By: #### L IPA, CHACHA, LIVER, BMP #### [facility] [address] [place] [address] Dr. Aleksandar Almeida AST [Catalytic activity/Vol] 39 U/L Critically high 15-37 [facility] Comment on above: Performed By: #### L IPA, CHACHA, LIVER, BMP #### [facility] [address] [place] [address] Dr. Aleksandar Almeida BILI, CONJUGATED 0.2 mg/dL Normal 0.0-0.3 [facility] Comment on above: Performed By: #### L IPA, CHACHA, LIVER, BMP #### [facility] [address] [place] [address] Dr. Aleksandar Almeida Bilirubin [Mass/Vol] 0.9 mg/dL Normal 0.2-1.3 [facility] Comment on above: Performed By: #### L IPA, CHACHA, LIVER, BMP #### [facility] [address] [place] [address] Dr. Aleksandar Almeida Globulin (S) [Mass/Vol] 4.0 g/dL Normal [facility] Comment on above: Performed By: #### L IPA, CHACHA, LIVER, BMP #### [facility] [address] [address] [address] Aleksandar Almeida Protein [Mass/Vol] 8.0 g/dL Normal 6.1-8.2 [facility] Comment on above: Performed By: #### L IPA, CHACHA, LIVER, BMP #### [facility] [address] [address] [address] Aleksandar Almeida PROF CHEM 8 (BAS METB)on Anion gap [Moles/Vol] 14.1 mmol/L Normal [facility] Comment on above: Performed By: #### L IPA, CHACHA, LIVER, BMP #### [facility] [address] [address] [address] Aleksandar Almeida Calcium [Mass/Vol] 9.5 mg/dL Normal 8.5-10.1 [facility] Comment on above: Performed By: #### L IPA, CHACHA, LIVER, BMP #### [facility] [address] [address] [address] Aleksandar Almeida Chloride [Moles/Vol] 101 mmol/L Normal 98-107 [facility] Comment on above: Performed By: #### L IPA, CHACHA, LIVER, BMP #### [facility] [address] [address] [address] Aleksandar Almeida CO2 [Moles/Vol] 27.0 mmol/L Normal 22.0-30.0 [facility] Comment on above: Performed By: #### L IPA, CHACHA, LIVER, BMP #### [facility] [address] [address] [address] Aleksandar Almeida Creatinine [Mass/Vol] 1.23 mg/dL Normal 0.66-1.25 [facility] Comment on above: Performed By: #### L IPA, CHACHA, LIVER, BMP #### [facility] [address] [address] [address] Aleksandar Almeida EGFR-AF TRISTANIAN >60 Normal >=60 [facility] Comment on above: Performed By: #### L IPA, CHACHA, LIVER, BMP #### [facility] [address] [address] [address] Aleksandar Almeida EGFR-NON AF TRISTANIAN >60 Normal >=60 [facility] Comment on above: Performed By: #### L IPA, CHACHA, LIVER, BMP #### [facility] [address] [address] [address] Aleksandar Almeida Glucose [Mass/Vol] 249 mg/dL Critically high 74-106 [facility] Comment on above: Performed By: #### L IPA, CHACHA, LIVER, BMP #### [facility] [address] [address] [address] Aleksandar Almeida Potassium [Moles/Vol] 4.1 mmol/L Normal 3.4-5.0 [facility] Comment on above: Performed By: #### L IPA, CHACHA, LIVER, BMP #### [facility] [address] [address] [address] Aleksandar Almeida Sodium [Moles/Vol] 138 mmol/L Normal 137-145 [facility] Comment on above: Performed By: #### L IPA, CHACHA, LIVER, BMP #### [facility] [address] [address] [address] Aleksandar Almeida Urea nitrogen [Mass/Vol] 19.0 mg/dL Critically high 7.0-18.0 [facility] Comment on above: Performed By: #### L IPA, CHACHA, LIVER, BMP #### [facility] [address] [address] [address] Aleksandar Almeida Urea nitrogen/Creatinine [Mass ratio] 15.4 mg/mg Normal [facility] Comment on above: Performed By: #### L IPA, CHACHA, LIVER, BMP #### [facility] [address] [address] [address] Aleksandar Almeida PROTIMEon 12-24-2021 INR Coag (PPP) [Relative time] 1.13 {INR} Normal [facility] Comment on above: Performed By: #### P T, PTT ####[facility] [address] [address]Dr. Aleksandar Almeida INR GUIDELINES SEE BELOW Normal [facility] Comment on above: Result Comment: NOEL RED INR: 2.0 - 3.0 CONDITIONS NOT LISTED BELOW 2.5 - 3.5 FOR PROSTHETIC HEART VALVE REPLACEMENT 2.5 - 3.5 RECURRENT THROMBOSIS Performed By: #### P T, PTT ####[facility] [id number] [place] [address]Dr. Aleksandar Almeida PT Coag (PPP) [Time] 12.1 s Critically high 9.0-11.6 [facility] Comment on above: Performed By: #### P T, PTT ####[facility] [address] [place] [address]Dr. Aleksandar Almeida PTTon 12-24-2021 aPTT Coag (Bld) [Time] 25.1 s Normal 22.3-36.2 [facility] Comment on above: Performed By: #### P T, PTT ####[facility] [id number] [place], [place] [address]Dr. Aleksandar Almeida URINE MICROSCOPIC ONLYon BACTERIA TRACE Abnormal NONE SEEN [facility] Comment on above: Performed By: #### U MICRO, ERUR ####[facility] [address] [place], [place] [address]Dr. Aleksandar Almeida Bacteria identified Cx Nom (U) NOT INDICATED Normal [facility] Comment on above: Performed By: #### U MICRO, ERUR ####[facility] [address] [place] [address]Dr. Aleksandar Almeida CAST NONE SEEN Normal NONE SEEN [facility] Comment on above: Performed By: #### U MICRO, ERUR ####[facility] [address] [place] [address]DrBaldev Almeida Crystals LM Nom (Urine sed) NONE SEEN Normal NONE SEEN [facility] Comment on above: Performed By: #### U MICRO, ERUR ####[facility] [address] [place] [address]Dr. Aleksandar Almeida Epithelial cells LM Ql (Urine sed) NONE SEEN Normal NONE SEEN /RARE [facility] Comment on above: Performed By: #### U MICRO, ERUR ####[facility] [address] [place] [id number]. Aleksandar Almeida MUCOUS TRACE Abnormal NONE SEEN [facility] Comment on above: Performed By: #### U MICRO, ERUR ####[facility] [address] [place], [place] [address]Vt. Aleksandar Almeida RBC 5-10 Abnormal 0-2 [facility] Comment on above: Performed By: #### U MICRO, ERUR ####[facility] [address] [place], [place] [address]Or. Aleksandar Almeida WBC 2-5 Abnormal NONE SEEN [facility] Comment on above: Performed By: #### U MICRO, ERUR ####[facility] [address] [place] [id number]. Aleksandar Almeida Radiologyon 12-10-2021 US Liver Normal [facility] [employer] [address] [employer] Work Phone: Ultrasound Duplex Abd/Pel/Sc rotal Cmpton 12-10-2021 Ultrasound Duplex Abd/Pel/Scrotal Cmpt Normal [facility] [employer] [address] [employer] Work Phone: Tacrolimuson 11-17-2021 Tacrolimus (Bld) [Mass/Vol] 8.2 ng/mL 2.0 - 15.0 [facility] [employer] Work Phone: Comment on above: NOTE: Result was obt ained using a chemiluminescent microparticle immunoassay (CMIA) on the [employer] system.Optimal therapeutic ranges for immuno-suppressant drugs depend upon an individualpatient's current clinical state, type oforgan transplant, time post-transplant,co-administration of other immunosuppressants,and other clinical factors. The results ofthis test should be correlated with additionalclinical and laboratory data before changesin treatment regimens are made. Tacrolimuson 08-07-2021 Tacrolimus (Bld) [Mass/Vol] 12.6 ng/mL 2.0 - 15.0 [facility] [employer] [address] [employer] Work Phone: Comment on above: NOTE: Result was obt ained using a chemiluminescent microparticle immunoassay (CMIA) on the [employer] system.Optimal therapeutic ranges for immuno-suppressant drugs depend upon an individualpatient's current clinical state, type oforgan transplant, time post-transplant,co-administration of other immunosuppressants,and other clinical factors. The results ofthis test should be correlated with additionalclinical and laboratory data before changesin treatment regimens are made. Tacrolimuson 06-21-2021 Tacrolimus (Bld) [Mass/Vol] 8.4 ng/mL 2.0 - 15.0 [facility] [employer] [address] [employer] Work Phone: Comment on above: NOTE: Result was obt ained using a chemiluminescent microparticle immunoassay (CMIA) on the [employer] system.Optimal therapeutic ranges for immuno-suppressant drugs depend upon an individualpatient's current clinical state, type oforgan transplant, time post-transplant,co-administration of other immunosuppressants,and other clinical factors. The results ofthis test should be correlated with additionalclinical and laboratory data before changesin treatment regimens are made. Tacrolimuson 04-27-2021 Tacrolimus (Bld) [Mass/Vol] 11.2 ng/mL 2.0 - 15.0 [facility] [employer] [address] [employer] Work Phone: Comment on above: NOTE: Result was obt ained using a chemiluminescent microparticle immunoassay (CMIA) on the [employer] system.Optimal therapeutic ranges for immuno-suppressant drugs depend upon an individualpatient's current clinical state, type oforgan transplant, time post-transplant,co-administration of other immunosuppressants,and other clinical factors. The results ofthis test should be correlated with additionalclinical and laboratory data before changesin treatment regimens are made. Activated partial thrombopla stin time (aPTT) in platelet poor plasma by coagulation aon 11-04-2020 aPTT Coag (PPP) [Time] 31.0 s 25.1-36.5 [facility] Automated basophil %on 11-04 Basophils/100 WBC (Bld) 1.2 % [facility] Automated basophil counton 0 11-04-2020 Basophils (Bld) [#/Vol] 0.1 10*3/uL 0.0-0.2 [facility] Automated blood lymphocyte c ount (number/volume)on 11-04-2020 Lymphocytes (Bld) [#/Vol] 3.5 10*3/uL 1.00-4.8 [facility] Automated blood lymphocyte c ount as percentage of total leukocyteson 11-04-2020 Lymphocytes/100 WBC (Bld) 44.2 % [facility] Automated blood monocyte cou nton 11-04-2020 Monocytes (Bld) [#/Vol] 0.6 10*3/uL 0.0-0.8 [facility] Automated blood platelet cou nt (count/volume)on 11-04-2020 Platelets (Bld) [#/Vol] 240 10*3/uL 150-450 [facility] Automated blood platelet jose n volume measurementon 11-04-2020 Platelet mean volume (Bld) [Entitic vol] 9.7 fL 6.6-10.1 [facility] Automated eosinophil %on Eosinophils/100 WBC (Bld) 2.0 % [facility] Automated eosinophil counton 11-04-2020 Eosinophils (Bld) [#/Vol] 0.2 10*3/uL 0.0-0.45 [facility] Automated erythrocyte distri bution width ratioon 11-04-2020 Erythrocyte distribution width (RBC) [Ratio] 13.2 % 12.0-14.8 [facility] Automated erythrocyte mean c orpuscular hemoglobin (mass per erythrocyte)on 11-04-2020 MCH (RBC) [Entitic mass] 30.7 pg 27.5-35.2 [facility] Automated erythrocyte mean c orpuscular hemoglobin concentration measurement (mass/volon 11-04-2020 MCHC (RBC) [Mass/Vol] 34.3 g/dL 32.5-35.6 [facility] Automated erythrocyte mean c orpuscular volumeon 11-04-2020 MCV (RBC) [Entitic vol] 89.5 fL 83.5-101 [facility] Automated monocyte %on 11-04 Monocytes/100 WBC (Bld) 7.8 % [facility] Automated neutrophil %on Neutrophils/100 WBC (Bld) 44.8 % [facility] Blood erythrocytes automated count (number/volume)on 11-04-2020 RBC (Bld) [#/Vol] 4.03 10*6/uL 3.90-5.60 [facility] Blood hemoglobin measurement (mass/volume)on 11-04-2020 Hemoglobin (Bld) [Mass/Vol] 12.4 g/dL 13.0-17.0 [facility] Blood leukocytes automated c ount (number/volume)on 11-04-2020 WBC (Bld) [#/Vol] 7.9 10*3/uL 4.5-11.0 [facility] Blood neutrophil count by au tomated method (number/volume)on 11-04-2020 Neutrophils (Bld) [#/Vol] 3.5 10*3/uL 1.8-7.7 [facility] Estimated glomerular filtrat ion rate (GFR) non- Americanon 11-04-2020 GFR/1.73 sq M predicted among non-blacks MDRD (S/P/Bld) [Vol rate/Area] mL/min/{1.73_m2} [facility] Hematocrit [Volume Fraction] of Blood by Automated counton 11-04-2020 Hematocrit (Bld) [Volume fraction] 36.1 % 38.8-50.0 [facility] Hematologyon 11-04-2020 PT Coag (PPP) [Time] 12.9 s 9.0-12.9 [facility] Otheron 11-04-2020 GFR/1.73 sq M.predicted MDRD (S/P/Bld) [Vol rate/Area] mL/min/{1.73_m2} [facility] Comment on above: GFR estimated refere nce range: According to KDOQI guidelines, <60 ml/min/1.73m2 is sufficient to diagnose a patient with chronic kidney disease. Nucleated RBC/100 WBC (Bld) [Ratio] 0.4 % 0-0.5 [facility] Pharmacy Creatinine Clearance (Chem N/A [facility] Platelet poor plasma interna tional normalized ratio (INR) by coagulation assay (relaton 11-04-2020 INR Coag (PPP) [Relative time] 1.2 {INR} [facility] Comment on above: INR Therapeutic Rang [...] with mechanical heart valves: 3 - 4.5 Serum or plasma calcium vini urement (mass/volume)on 11-04-2020 Calcium [Mass/Vol] 9.2 mg/dL 8.2-10.2 [facility] Serum or plasma chloride jose surement (moles/volume)on 11-04-2020 Chloride [Moles/Vol] 100 mmol/L 95-114 [facility] Serum or plasma creatinine m easurement with calculation of estimated glomerular filtron 11-04-2020 Creatinine [Mass/Vol] 1.31 mg/dL 0.64-1.27 [facility] Serum or plasma glucose vini urement (mass/volume)on 11-04-2020 Glucose [Mass/Vol] 178 mg/dL 70-100 [facility] Comment on above: ADA recommended refe rence rangeRandom Glucose Reference Range is dependent on time and content of last meal. Glucose of more than 200 mg/dL in a nonstressed, ambulatory subject supports the diagnosis of Diabetes Mellitus. Serum or plasma potassium me asurement (moles/volume)on 11-04-2020 Potassium [Moles/Vol] 3.9 mmol/L 3.5-5.1 [facility] Serum or plasma sodium measu rement (moles/volume)on 11-04-2020 Sodium [Moles/Vol] 137 mmol/L 136-146 [facility] Serum or plasma total carbon dioxide measurement (moles/volume)on 11-04-2020 CO2 [Moles/Vol] 27.9 mmol/L 22.0-30.0 [facility] Serum or plasma urea nitroge n measurement (mass/volume)on 11-04-2020 Urea nitrogen [Mass/Vol] 16 mg/dL 9-23 [facility] Albumin [Mass/volume] in Ser um or Plasmaon 10-13-2020 Albumin [Mass/Vol] 4.1 g/dL 3.2-5.5 [facility] Automated basophil %on 10-13 Basophils/100 WBC (Bld) 1.0 % [facility] Automated basophil counton 0 10-13-2020 Basophils (Bld) [#/Vol] 0.1 10*3/uL 0.0-0.2 [facility] Automated blood lymphocyte c ount (number/volume)on 10-13-2020 Lymphocytes (Bld) [#/Vol] 3.8 10*3/uL 1.00-4.8 [facility] Automated blood lymphocyte c ount as percentage of total leukocyteson 10-13-2020 Lymphocytes/100 WBC (Bld) 47.7 % [facility] Automated blood monocyte cou nton 10-13-2020 Monocytes (Bld) [#/Vol] 0.6 10*3/uL 0.0-0.8 [facility] Automated blood platelet cou nt (count/volume)on 10-13-2020 Platelets (Bld) [#/Vol] 212 10*3/uL 150-450 [facility] Automated blood platelet jose n volume measurementon 10-13-2020 Platelet mean volume (Bld) [Entitic vol] 9.4 fL 6.6-10.1 [facility] Automated eosinophil %on Eosinophils/100 WBC (Bld) 3.7 % [facility] Automated eosinophil counton 10-13-2020 Eosinophils (Bld) [#/Vol] 0.3 10*3/uL 0.0-0.45 [facility] Automated erythrocyte distri bution width ratioon 10-13-2020 Erythrocyte distribution width (RBC) [Ratio] 13.1 % 12.0-14.8 [facility] Automated erythrocyte mean c orpuscular hemoglobin (mass per erythrocyte)on 10-13-2020 MCH (RBC) [Entitic mass] 31.2 pg 27.5-35.2 [facility] Automated erythrocyte mean c orpuscular hemoglobin concentration measurement (mass/volon 10-13-2020 MCHC (RBC) [Mass/Vol] 34.7 g/dL 32.5-35.6 [facility] Automated erythrocyte mean c orpuscular volumeon 10-13-2020 MCV (RBC) [Entitic vol] 89.9 fL 83.5-101 [facility] Automated monocyte %on 10-13 Monocytes/100 WBC (Bld) 7.9 % [facility] Automated neutrophil %on Neutrophils/100 WBC (Bld) 39.7 % [facility] Blood erythrocytes automated count (number/volume)on 10-13-2020 RBC (Bld) [#/Vol] 4.77 10*6/uL 3.90-5.60 [facility] Blood hemoglobin measurement (mass/volume)on 10-13-2020 Hemoglobin (Bld) [Mass/Vol] 14.9 g/dL 13.0-17.0 [facility] Blood leukocytes automated c ount (number/volume)on 10-13-2020 WBC (Bld) [#/Vol] 8.1 10*3/uL 4.5-11.0 [facility] Blood neutrophil count by au tomated method (number/volume)on 10-13-2020 Neutrophils (Bld) [#/Vol] 3.2 10*3/uL 1.8-7.7 [facility] Cholesterol [Mass/volume] in Serum or Plasmaon 10-13-2020 Cholesterol [Mass/Vol] 240 mg/dL 140-200 [facility] Comment on above: Chol less than 200 m g/dl low riskChol 201-239 mg/dl borderline riskChol 240 mg/dl and greater high risk Cholesterol in LDL [Mass/vol ume] in Serum or Plasma by calculationon 10-13-2020 Cholesterol in LDL [Mass/Vol] 145 mg/dL 0-100 [facility] Comment on above: LDL ATP III CLASSIFI CATIONLDL less than 100 mg/dL OptimalLDL 100-129 mg/dL Near or above optimalLDL 130-159 mg/dL Borderline highLDL 160-189 mg/dL HighLDL greater than 189 mg/dL Very high Cholesterol in VLDL [Mass/vo lume] in Serum or Plasma by calculationon 10-13-2020 Cholesterol in VLDL [Mass/Vol] 16 mg/dL [facility] Creatinine [Mass/volume] in Urineon 10-13-2020 Creatinine (U) [Mass/Vol] 241.7 mg/dL [facility] Comment on above: No reference range e stablished Direct bilirubin measurement on 10-13-2020 Bilirubin.direct [Mass/Vol] 0.2 mg/dL 0.0-0.4 [facility] Estimated glomerular filtrat ion rate (GFR) non- Americanon 10-13-2020 GFR/1.73 sq M predicted among non-blacks MDRD (S/P/Bld) [Vol rate/Area] mL/min/{1.73_m2} [facility] Hematocrit [Volume Fraction] of Blood by Automated counton 10-13-2020 Hematocrit (Bld) [Volume fraction] 42.9 % 38.8-50.0 [facility] Otheron 10-13-2020 25-Hydroxy Vitamin D Total > 120.0 ng/mL 30-100 [facility] Comment on above: VITAMIN D STATUS 25( [place])VITAMIN D RANGE (ng/mL) Deficient <20 Insufficient 20 to <30Sufficient 30 to 100Reference: Misa MF,Kamar NC, Radha VOGEL, et al. Evaluation,treatment, and prevention of vitamin D deficiency; an Endocrine Society clinical practice guideline. JCEM. 2010; 96(7):1911-30. Amylase [Catalytic activity/Vol] 146 U/L 7-64 [facility] Nucleated RBC/100 WBC (Bld) [Ratio] 0.2 % 0-0.5 [facility] GFR/1.73 sq M.predicted MDRD (S/P/Bld) [Vol rate/Area] mL/min/{1.73_m2} [facility] Comment on above: GFR estimated refere nce range: According to KDOQI guidelines, <60 ml/min/1.73m2 is sufficient to diagnose a patient with chronic kidney disease. Pharmacy Creatinine Clearance (Chem N/A [facility] Protein [Mass/volume] in Ser um or Plasmaon 10-13-2020 Protein [Mass/Vol] 7.1 g/dL 6.1-7.9 [facility] Serum globulin measurement b y calculation (mass/volume)on 10-13-2020 Globulin (S) [Mass/Vol] 3.0 g/dL [facility] Serum or plasma alanine weaver otransferase measurement without P-5'-P (enzymatic activion 10-13-2020 ALT No additional P-5'-P [Catalytic activity/Vol] 28 U/L 10-60 [facility] Serum or plasma albumin/glob ulin mass ratioon 10-13-2020 Albumin/Globulin [Mass ratio] 1.4 {ratio} [facility] Serum or plasma alkaline roe sphatase measurement (enzymatic activity/volume)on 10-13-2020 ALP [Catalytic activity/Vol] 87 U/L 32-92 [facility] Serum or plasma aspartate am inotransferase measurement (enzymatic activity/volume)on 10-13-2020 AST [Catalytic activity/Vol] 23 U/L 10-42 [facility] Serum or plasma calcium vini urement (mass/volume)on 10-13-2020 Calcium [Mass/Vol] 9.9 mg/dL 8.2-10.2 [facility] Serum or plasma chloride jose surement (moles/volume)on 10-13-2020 Chloride [Moles/Vol] 98 mmol/L 95-114 [facility] Serum or plasma creatinine m easurement with calculation of estimated glomerular filtron 10-13-2020 Creatinine [Mass/Vol] 1.12 mg/dL 0.64-1.27 [facility] Serum or plasma glucose vini urement (mass/volume)on 10-13-2020 Glucose [Mass/Vol] 233 mg/dL 70-100 [facility] Comment on above: ADA recommended refe rence rangeRandom Glucose Reference Range is dependent on time and content of last meal. Glucose of more than 200 mg/dL in a nonstressed, ambulatory subject supports the diagnosis of Diabetes Mellitus. Serum or plasma high density lipoprotein (HDL) cholesterol measurementon 10-13-2020 Cholesterol in HDL [Mass/Vol] 79 mg/dL 29-71 [facility] Comment on above: HDL CHOL ATP-III CLA SSIFICATION Cardiovascular RiskHDL > or equal to 60 mg/dL LOWHDL < 40 mg/dL HIGH Serum or plasma potassium me asurement (moles/volume)on 10-13-2020 Potassium [Moles/Vol] 3.9 mmol/L 3.5-5.1 [facility] Serum or plasma sodium measu rement (moles/volume)on 10-13-2020 Sodium [Moles/Vol] 140 mmol/L 136-146 [facility] Serum or plasma thyroid stim ulating hormone (TSH) measurement by high sensitivity meton 10-13-2020 TSH Qn 2.38 u[iU]/mL 0.45-5.33 [facility] Serum or plasma total biliru bin measurement (mass/volume)on 10-13-2020 Bilirubin [Mass/Vol] 1.2 mg/dL 0.3-1.2 [facility] Serum or plasma total carbon dioxide measurement (moles/volume)on 10-13-2020 CO2 [Moles/Vol] 28.9 mmol/L 22.0-30.0 [facility] Serum or plasma total choles terol/high density lipoprotein (HDL) cholesterol mass carmen 10-13-2020 Cholesterol.total/Cho lesterol in HDL [Mass ratio] 3.0 {ratio} [facility] Serum or plasma urea nitroge n measurement (mass/volume)on 10-13-2020 Urea nitrogen [Mass/Vol] 14 mg/dL 9-23 [facility] Tacrolimus [Mass/volume] in Bloodon 10-13-2020 Tacrolimus (Bld) [Mass/Vol] Sent to ref lab [facility] Triglyceride [Mass/volume] i n Serum or Plasmaon 10-13-2020 Triglyceride [Mass/Vol] 82 mg/dL 35-149 [facility] Comment on above: TRIG ATP III [...] 20 mg/L (U) [Mass/Vol] 7.3 mg/dL 0.0-1.8 [facility] Urine microalbumin/creatinin e mass ratioon 10-13-2020 Albumin/Creatinine DL <= 20 mg/L (U) [Mass ratio] 30.0 mg/g 0.0-30.0 [facility] Comment on above: 30-300 mg/g indicate s an increased risk for diabetic nephropathy. Greater than 300 mg/g is consistent with clinical nephropathy. (Am. J. Kidney Disease 1995, 25:107) Vital Signs Date Time Vital Sign Value Performing Clinician Facility 05-28-2025 09:33-0400 Body height 175.26 cm Coby Sosa MD Work Phone: [facility] 05-28-2025 09:33-0400 Body mass index (BMI) [Ratio] 17.6 kg/m2 Coby Sosa MD Work Phone: [facility] 05-28-2025 09:33-0400 Body weight 54.09 kg Coby Sosa MD Work Phone: [facility] 05-28-2025 09:33-0400 Diastolic blood pressure 89 mm[Hg] Coby Sosa MD Work Phone: [facility] 05-28-2025 09:33-0400 Heart rate 85 /min Coby Sosa MD Work Phone: [facility] 05-28-2025 09:33-0400 Systolic blood pressure 130 mm[Hg] Coby Sosa MD Work Phone: [facility] 04-03-2025 10:04-0400 Body mass index (BMI) [Ratio] 17.2 kg/m2 Sharan Ayoub MD Work Phone: [facility] 04-03-2025 [id number] Body temperature 97.81 [degF] Sharan Ayoub MD Work Phone: [facility] 04-03-2025 10:04-0400 Body weight 54.39 kg Sharan Ayoub MD Work Phone: [facility] 04-03-2025 10:04-0400 Diastolic blood pressure 85 mm[Hg] Sharan Ayoub MD Work Phone: [facility] 04-03-2025 10:04-0400 Heart rate 71 /min Sharan Ayoub MD Work Phone: [facility] 04-03-2025 10:04-0400 SaO2% (BldA) [Mass fraction] 98 % Sharan Ayoub MD Work Phone: [facility] 04-03-2025 10:04-0400 Systolic blood pressure 130 mm[Hg] Sharan Ayoub MD Work Phone: [facility] 03-04-2025 15:06-0400 Body height 175.26 cm Coby Sosa MD Work Phone: [facility] 03-04-2025 15:06-0400 Body mass index (BMI) [Ratio] 17.9 kg/m2 Coby Sosa MD Work Phone: [facility] 03-04-2025 15:06-0400 Body temperature 98.4 [degF] Coby Sosa MD Work Phone: [facility] 03-04-2025 15:06-0400 Body weight 54.99 kg Coby Sosa MD Work Phone: [facility] 03-04-2025 15:06-0400 Diastolic blood pressure 88 mm[Hg] Coby Sosa MD Work Phone: [facility] 03-04-2025 15:06-0400 Heart rate 112 /min Coby Sosa MD Work Phone: [facility] 03-04-2025 15:06-0400 Systolic blood pressure 126 mm[Hg] Coby Sosa MD Work Phone: [facility] 01-09-2025 09:55-0400 Body mass index (BMI) [Ratio] 17.85 kg/m2 Sharan Ayoub MD Work Phone: [facility] 01-09-2025 09:55-0400 Body temperature 98.29 [degF] Sharan Ayuob MD Work Phone: [facility] 01-09-2025 09:55-0400 Body weight 56.43 kg Sharan Ayoub MD Work Phone: [facility] 01-09-2025 09:55-0400 Diastolic blood pressure 91 mm[Hg] Sharan Ayoub MD Work Phone: [facility] 01-09-2025 09:55-0400 Heart rate 99 /min Sharan Ayoub MD Work Phone: [facility] 01-09-2025 09:55-0400 SaO2% (BldA) [Mass fraction] 96 % Sharan Ayoub MD Work Phone: [facility] 01-09-2025 09:55-0400 Systolic blood pressure 139 mm[Hg] Sharan Ayoub MD Work Phone: [facility] 12-11-2024 09:50-0400 Body height 175.26 cm Coby Sosa MD Work Phone: [facility] 12-11-2024 09:50-0400 Body mass index (BMI) [Ratio] 18.1 kg/m2 Coby Sosa MD Work Phone: [facility] 12-11-2024 09:50-0400 Body temperature 98.2 [degF] Coby Sosa MD Work Phone: [facility] 12-11-2024 09:50-0400 Body weight 55.79 kg Coby Sosa MD Work Phone: [facility] 12-11-2024 09:50-0400 Diastolic blood pressure 88 mm[Hg] Coby Sosa MD Work Phone: [facility] 12-11-2024 09:50-0400 Heart rate 94 /min Coby Sosa MD Work Phone: [facility] 12-11-2024 09:50-0400 Systolic blood pressure 138 mm[Hg] Coby Sosa MD Work Phone: [facility] 10-31-2024 14:31-0500 Body height 175.26 cm Coby Sosa MD Work Phone: [facility] 10-31-2024 14:31-0500 Body mass index (BMI) [Ratio] 18.3 kg/m2 Coby Sosa MD Work Phone: [facility] 10-31-2024 14:31-0500 Body weight 56.24 kg Coby Sosa MD Work Phone: [facility] 10-31-2024 14:31-0500 Diastolic blood pressure 98 mm[Hg] Coby Sosa MD Work Phone: [facility] 10-31-2024 14:31-0500 Heart rate 105 /min Coby Sosa MD Work Phone: [facility] 10-31-2024 14:31-0500 Systolic blood pressure 139 mm[Hg] Coby Sosa MD Work Phone: [facility] 10-10-2024 15:03-0500 Body height 175.26 cm Coby Sosa MD Work Phone: [facility] 10-10-2024 15:03-0500 Body mass index (BMI) [Ratio] 18.9 kg/m2 Coby Sosa MD Work Phone: [facility] 10-10-2024 15:03-0500 Body temperature 97.9 [degF] Coby Sosa MD Work Phone: [facility] 10-10-2024 15:03-0500 Body weight 58.11 kg Coby Sosa MD Work Phone: [facility] 10-10-2024 15:03-0500 Diastolic blood pressure 98 mm[Hg] Coby Sosa MD Work Phone: [facility] 10-10-2024 15:03-0500 Heart rate 84 /min Coby Sosa MD Work Phone: [facility] 10-10-2024 15:03-0500 Systolic blood pressure 138 mm[Hg] Coby Sosa MD Work Phone: [facility] 10-10-2024 09:35-0500 Body mass index (BMI) [Ratio] 18.24 kg/m2 Sharan Ayoub MD Work Phone: [facility] 10-10-2024 09:35-0500 Body temperature 97.59 [degF] Sharan Ayoub MD Work Phone: [facility] 10-10-2024 09:35-0500 Body weight 57.65 kg Sharan Ayoub MD Work Phone: [facility] 10-10-2024 09:35-0500 Diastolic blood pressure 91 mm[Hg] Sharan Ayoub MD Work Phone: [facility] 10-10-2024 09:35-0500 Heart rate 94 /min Sharan Ayoub MD Work Phone: [facility] 10-10-2024 09:35-0500 SaO2% (BldA) [Mass fraction] 98 % Sharan Ayoub MD Work Phone: [facility] 10-10-2024 09:35-0500 Systolic blood pressure 134 mm[Hg] Sharan Ayoub MD Work Phone: [facility] 07-19-2024 09:58-0400 Body height 175.26 cm MD Coby Sosa Work Phone: [facility] 07-19-2024 09:58-0400 Body mass index (BMI) [Ratio] 18.7 kg/m2 MD Coby Sosa Work Phone: [facility] 07-19-2024 09:58-0400 Body weight 57.6 kg MD Coby Sosa Work Phone: [facility] 07-19-2024 09:58-0400 Diastolic blood pressure 93 mm[Hg] MD Coby Sosa Work Phone: [facility] 07-19-2024 09:58-0400 Heart rate 83 /min MD Coby Sosa Work Phone: [facility] 07-19-2024 09:58-0400 Systolic blood pressure 142 mm[Hg] MD Coby Sosa Work Phone: [facility] 05-23-2024 14:52-0400 Body height 175.26 cm MD Coby Sosa Work Phone: [facility] 05-23-2024 14:52-0400 Body mass index (BMI) [Ratio] 18.3 kg/m2 MD Coby Sosa Work Phone: [facility] 05-23-2024 14:52-0400 Body weight 56.24 kg MD Coby Sosa Work Phone: [facility] 05-23-2024 14:52-0400 Diastolic blood pressure 98 mm[Hg] MD Coby Sosa Work Phone: [facility] 05-23-2024 14:52-0400 Heart rate 84 /min MD Coby Sosa Work Phone: [facility] 05-23-2024 14:52-0400 Systolic blood pressure 130 mm[Hg] MD Coby Sosa Work Phone: [facility] 04-18-2024 09:20-0400 Body mass index (BMI) [Ratio] 18.55 kg/m2 Sharan Ayoub MD Work Phone: [facility] 04-18-2024 09:20-0400 Body temperature 97.11 [degF] Sharan Ayoub MD Work Phone: [facility] 04-18-2024 09:20-0400 Body weight 58.65 kg Sharan Ayoub MD Work Phone: [facility] 04-18-2024 09:20-0400 Diastolic blood pressure 90 mm[Hg] Sharan Ayoub MD Work Phone: [facility] 04-18-2024 09:20-0400 Heart rate 90 /min Sharan Ayoub MD Work Phone: [facility] 04-18-2024 09:20-0400 SaO2% (BldA) [Mass fraction] 99 % Sharan Ayoub MD Work Phone: [facility] 04-18-2024 09:20-0400 Systolic blood pressure 131 mm[Hg] Sharan Ayoub MD Work Phone: [facility] 04-09-2024 15:32-0400 Body height 175.26 cm MD Coby Sosa Work Phone: [facility] 04-09-2024 15:32-0400 Body mass index (BMI) [Ratio] 18.8 kg/m2 MD Coby Sosa Work Phone: [facility] 04-09-2024 15:32-0400 Body weight 58.05 kg MD Coby Sosa Work Phone: [facility] 04-09-2024 15:32-0400 Diastolic blood pressure 74 mm[Hg] MD Coby Sosa Work Phone: [facility] 04-09-2024 15:32-0400 Heart rate 94 /min MD Coby Sosa Work Phone: [facility] 04-09-2024 15:32-0400 Systolic blood pressure 120 mm[Hg] MD Coby Sosa Work Phone: [facility] 02-01-2024 09:35-0400 Body mass index (BMI) [Ratio] 18.67 kg/m2 Sharan Ayoub MD Work Phone: [facility] 02-01-2024 09:35-0400 Body temperature 97.59 [degF] Sharan Ayoub MD Work Phone: [facility] 02-01-2024 09:35-0400 Body weight 59.01 kg Sharan Ayoub MD Work Phone: [facility] 02-01-2024 09:35-0400 Diastolic blood pressure 96 mm[Hg] Sharan Ayoub MD Work Phone: [facility] 02-01-2024 09:35-0400 Heart rate 86 /min Sharan Ayoub MD Work Phone: [facility] 02-01-2024 09:35-0400 SaO2% (BldA) [Mass fraction] 100 % Sharan Ayoub MD Work Phone: [facility] 02-01-2024 09:35-0400 Systolic blood pressure 148 mm[Hg] Sharan Ayoub MD Work Phone: [facility] 01-24-2024 14:08-0400 Body temperature 98.4 [degF] Yung Post Work Phone: [facility] 01-24-2024 14:08-0400 Diastolic blood pressure 82 mm[Hg] Yung Post Work Phone: [facility] 01-24-2024 14:08-0400 Heart rate 89 /min Yugn Post Work Phone: [facility] 01-24-2024 14:08-0400 Respiratory rate 18 /min Yung Post Work Phone: [facility] 01-24-2024 14:08-0400 SaO2% (BldA) [Mass fraction] 96 % Yung Post Work Phone: [facility] 01-24-2024 14:08-0400 Systolic blood pressure 136 mm[Hg] Yung Post Work Phone: [facility] 01-19-2024 13:07-0400 Body mass index (BMI) [Ratio] 17.55 kg/m2 Yung Post Work Phone: [facility] 01-19-2024 13:07-0400 Body weight 55.48 kg Yung Post Work Phone: [facility] 01-19-2024 13:06-0400 Body height 177.8 cm Yung Montesinos MD Work Phone: [facility] 01-17-2024 12:45-0400 Diastolic blood pressure 74 mm[Hg] [address] 01-17-2024 12:45-0400 Heart rate 55 /min [address] 01-17-2024 12:45-0400 Respiratory rate 18 /min [address] 01-17-2024 12:45-0400 SaO2% (BldA) [Mass fraction] 98 % [address] 01-17-2024 12:45-0400 Systolic blood pressure 119 mm[Hg] [address] 01-17-2024 08:13-0400 Body temperature 98.1 [degF] [address] 12-19-2023 12:50-0400 Diastolic blood pressure 81 mm[Hg] [address] 12-19-2023 12:50-0400 Heart rate 87 /min [address] 12-19-2023 12:50-0400 Respiratory rate 18 /min [address] 12-19-2023 12:50-0400 SaO2% (BldA) [Mass fraction] 99 % [address] 12-19-2023 12:50-0400 Systolic blood pressure 121 mm[Hg] [address] 12-19-2023 08:20-0400 Body temperature 99.1 [degF] [address] 10-30-2023 10:15-0500 Body height 175.26 cm Coby Sosa Other [facility] 10-30-2023 10:15-0500 Body mass index (BMI) [Ratio] 18.78 kg/m2 Coby Sosa Other [employer] Other 10-30-2023 10:15-0500 Body temperature 98.7 [degF] Coby Sosa Other [facility] [employer] Other 10-30-2023 10:15-0500 Body weight 57.7 kg Coby Sosa Other [facility] [employer] Other 10-30-2023 10:15-0500 Body weight 57.69 kg MD Coby Sosa Work Phone: [facility] 10-30-2023 10:15-0500 Diastolic blood pressure 84 mm[Hg] Coby Sosa Other [facility] 10-30-2023 10:15-0500 Systolic blood pressure 124 mm[Hg] Coby Sosa Other [facility] 10-09-2023 15:45-0500 Body height 175.26 cm Coby Sosa Other [facility] 10-09-2023 15:45-0500 Body mass index (BMI) [Ratio] 19.87 kg/m2 Coby Sosa Other [facility] [employer] Other 10-09-2023 15:45-0500 Body temperature 98.3 [degF] Coby Sosa Other [facility] [employer] Other 10-09-2023 15:45-0500 Body weight 61.05 kg Coby Sosa Other [facility] 10-09-2023 15:45-0500 Diastolic blood pressure 79 mm[Hg] Coby Sosa Other [facility] 10-09-2023 15:45-0500 Systolic blood pressure 126 mm[Hg] Coby Sosa Other [facility] 08-03-2023 09:50-0400 Body mass index (BMI) [Ratio] 18.72 kg/m2 Sharan Ayoub MD Work Phone: [facility] 08-03-2023 09:50-0400 Body temperature 97.39 [degF] Sharan Ayoub MD Work Phone: [facility] 08-03-2023 09:50-0400 Body weight 59.19 kg Sharan Ayoub MD Work Phone: [facility] 08-03-2023 09:50-0400 Diastolic blood pressure 79 mm[Hg] Sharan Ayoub MD Work Phone: [facility] 08-03-2023 09:50-0400 Heart rate 68 /min Sharan Ayoub MD Work Phone: [facility] 08-03-2023 09:50-0400 SaO2% (BldA) [Mass fraction] 99 % Sharan Ayoub MD Work Phone: [facility] 08-03-2023 09:50-0400 Systolic blood pressure 134 mm[Hg] Sharan Ayoub MD Work Phone: [facility] 05-03-2023 15:29-0400 Body height 177.8 cm Coby Sosa Work Phone: IG-Vzseitfltn-Jhifib [address] DO Work Phone: 05-03-2023 15:29-0400 Body mass index (BMI) [Ratio] 18.51 kg/m2 Coby Sosa Work Phone: KL-Pwujetozzw-Aimwkw [address] DO Work Phone: 05-03-2023 15:29-0400 Body surface area Derived from formula 1.73 m2 Coby Sosa Work Phone: ZO-Smzojoxexa-Evretz 1600 DO Work Phone: 05-03-2023 15:29-0400 Body temperature 98.6 [degF] Coby Sosa Work Phone: TH-Kqorjtmxuu-Jazclq 1600 DO Work Phone: 05-03-2023 15:29-0400 Body weight 58.51 kg Coby Sosa Work Phone: XS-Rbskjvlqub-Eruthv 1600 DO Work Phone: 05-03-2023 15:29-0400 Diastolic blood pressure 84 mm[Hg] Coby Sosa Work Phone: KR-Tjsvdsslsc-Azbfoa 1600 DO Work Phone: 05-03-2023 15:29-0400 Heart rate 63 /min Coby Sosa Work Phone: EW-Ezjqdbhpyy-Iqnvmm 1600 DO Work Phone: 05-03-2023 15:29-0400 Systolic blood pressure 135 mm[Hg] Coby Sosa Work Phone: EZ-Rnynfsjlvf-Ujpvyi 1600 DO Work Phone: 04-03-2023 10:15-0400 Body height 175.26 cm Coby Sosa Other [employer] Other 04-03-2023 10:15-0400 Body mass index (BMI) [Ratio] 18.9 kg/m2 Coby Sosa Other [employer] Other 04-03-2023 10:15-0400 Body weight 58.06 kg Coby Sosa Other [employer] Other 04-03-2023 10:15-0400 Diastolic blood pressure 64 mm[Hg] Coby Sosa Other [employer] Other 04-03-2023 10:15-0400 SaO2% (BldA) [Mass fraction] 97 % Coby Sosa Other [employer] Other 04-03-2023 10:15-0400 Systolic blood pressure 120 mm[Hg] Coby Sosa Other [employer] Other 01-26-2023 10:46-0400 Body mass index (BMI) [Ratio] 18.37 kg/m2 Coby Sosa Work Phone: CR-Exspovutwb-Vrdibx Work Phone: 01-26-2023 10:46-0400 Body surface area Derived from formula 1.73 m2 Coby Sosa Work Phone: DU-Icyzlsezgb-Dgwker Work Phone: 01-26-2023 10:46-0400 Body temperature 97.6 [degF] Coby Sosa Work Phone: NF-Ffczitixqx-Vekzoa Work Phone: 01-26-2023 10:46-0400 Body weight 58.06 kg Coby Sosa Work Phone: PB-Tgfadsadxe-Jieekf Work Phone: 01-26-2023 10:46-0400 Diastolic blood pressure 98 mm[Hg] oCby Sosa Work Phone: WK-Osezatikje-Kdjasb Work Phone: 01-26-2023 10:46-0400 Heart rate 76 /min Coby Sosa Work Phone: JR-Wlltfvoopz-Nqctrn Work Phone: 01-26-2023 10:46-0400 Respiratory rate 18 /min Coby Sosa Work Phone: IE-Qxonubause-Kzrdaj Work Phone: 01-26-2023 10:46-0400 SaO2% (BldA) [Mass fraction] 99 % Coby Sosa Work Phone: HZ-Qopujllccp-Zbpdke Work Phone: 01-26-2023 10:46-0400 Systolic blood pressure 142 mm[Hg] Coby Sosa Work Phone: MH-Cxqlfcrxlt-Dnchhb Work Phone: 01-26-2023 10:46-0400 0 1 Coby Sosa Work Phone: RL-Ilraqlocgs-Fjcalm Work Phone: Comment on above: [employer] 03-23-2023 17:00-0400 Body height 175.26 cm Coby Sosa Other [employer] Other 12-22-2022 17:00-0400 Body mass index (BMI) [Ratio] 19.64 kg/m2 Coby Sosa Other [employer] Other 12-22-2022 17:00-0400 Body temperature 100 [degF] Coby Sosa Other [employer] Other 12-22-2022 17:00-0400 Body weight 60.33 kg Coby Sosa Other [employer] Other 12-22-2022 17:00-0400 Diastolic blood pressure 70 mm[Hg] Coby Sosa Other [employer] Other 12-22-2022 17:00-0400 SaO2% (BldA) [Mass fraction] 97 % Coby Sosa Other [employer] Other 12-22-2022 17:00-0400 Systolic blood pressure 106 mm[Hg] Coby Sosa Other [employer] Other 07-21-2022 10:46-0400 Body height 177.8 cm Coby Sosa Work Phone: NT-Adiclextaf-Nxyvcz Work Phone: 07-21-2022 10:46-0400 Body mass index (BMI) [Ratio] 18.95 kg/m2 Coby Sosa Work Phone: TG-Cztmvnlibg-Wafwpl Work Phone: 07-21-2022 10:46-0400 Body surface area Derived from formula 1.75 m2 Coby Sosa Work Phone: FA-Eygepbpyum-Irxdhh Work Phone: 07-21-2022 10:46-0400 Body temperature 97.3 [degF] Coby Sosa Work Phone: EQ-Vamapegrwl-Hiekbi Work Phone: 07-21-2022 10:46-0400 Body weight 59.92 kg Coby Sosa Work Phone: RI-Anfzzaxakk-Mrxkgo Work Phone: 07-21-2022 10:46-0400 Diastolic blood pressure 83 mm[Hg] Coby Sosa Work Phone: JO-Osfigkpedx-Qrugms Work Phone: 07-21-2022 10:46-0400 Heart rate 58 /min Coby Sosa Work Phone: DY-Zvoafrnrmd-Wueiru Work Phone: 07-21-2022 10:46-0400 SaO2% (BldA) [Mass fraction] 97 % Coby Sosa Work Phone: PN-Ljvwbvvmxk-Azkehb Work Phone: 07-21-2022 10:46-0400 Systolic blood pressure 119 mm[Hg] Coby Sosa Work Phone: MC-Yzvlvptwjn-Zvpgdq Work Phone: 07-21-2022 10:46-0400 0 1 Coby Sosa Work Phone: IY-Fwtyfpaorh-Lgoeff Work Phone: Comment on above: [employer] 02-11-2019 12:46-0400 BMI (Body Mass Index) 19.58 kg/m2 [facility] [place] Work Phone: 02-11-2019 12:46-0400 Body Temperature 97.3 [degF] [facility] Work Phone: Comment on above: Method: Tympanic 02-11-2019 12:46-0400 Body weight 61.89 kg Harmeet Cochran [facility]-Endocrinology -[place] Enrique Work Phone: 02-11-2019 12:46-0400 BP Diastolic 76 mm[Hg] Harmeet Cochran [facility] -[place] Enrique Work Phone: 02-11-2019 12:46-0400 BP Systolic 121 mm[Hg] Harmeet Cochran [facility] -[place] Enrique Work Phone: 02-11-2019 12:46-0400 BSA (Body Surface Area) 1.77 m2 Harmeet Cochran VS-Hqbvumqeibcmw-Urk glas Carlos Enrique Work Phone: 02-11-2019 12:46-0400 Height 177.8 cm Harmeet Cochran [facility]inology -[place] Enrique Work Phone: 02-11-2019 12:46-0400 Pulse (Heart Rate) 62 /min Harmeet Cochran [facility]-Endocrinol ogy-[place] Work Phone: 02-11-2019 12:46-0400 Pulse Oximetry 98 % Harmeet Cochran [facility]ocrinology -[place] Work Phone: 02-11-2019 12:46-0400 Respiratory Rate 18 /min Harmeet Cochran [facility]ocrinolog y-[place] Work Phone: 02-11-2019 12:46-0400 0 1 Harmeet Cochran [facility]ocrinology -[place] Work Phone: Comment on above: Pain Scale 01-17-2019 12:25-0400 BMI (Body Mass Index) 19.44 kg/m2 Tomasza Susanh [facility]ology- [place] [address] [facility] Work Phone: 01-17-2019 12:25-0400 Body Temperature 98.4 [degF] Tomasza Susanh [facility]-Gastroentero logy- [place] [address] [facility] Work Phone: Comment on above: Method: Oral 01-17-2019 12:25-0400 Body weight 61.46 kg Baha Arafah [facility]-Endocrinology -[place] Work Phone: 01-17-2019 12:25-0400 BP Diastolic 79 mm[Hg] Baha Arafah [facility]-Gastroenterol ogy- [place] [address] [facility] Work Phone: 01-17-2019 12:25-0400 BP Systolic 127 mm[Hg] Baha Arafah [facility]astroenterol ogy- [place] [address] [facility] Work Phone: 01-17-2019 12:25-0400 BSA (Body Surface Area) 1.77 m2 Baha Arafah [facility]enterology- [place] [address] [facility] Work Phone: 01-17-2019 12:25-0400 Height 177.8 cm Baha Arafah [facility]ol [facility]- [place] [address] [facility] Work Phone: 01-17-2019 12:25-0400 Pulse (Heart Rate) 71 /min Baha Arafah MG-Gastroente rology- [place] [address] [facility] Work Phone: 01-17-2019 12:25-0400 Pulse Oximetry 100 % Baha Arafah [facility]-Gastroenterol ogy- [place] [address] [facility] Work Phone: Comment on above: Source: 01-17-2019 12:25-0400 Weight 61.46 kg Baha Arafah [facility]ol [facility]- [place] [address] [facility] Work Phone: Encounters Encounter Date Encounter Type Care Provider Facility Start: 06-16-2025 End: 06-16-2025 ambulatory Coby Sosa MD Work Phone: [facility] Work Phone: Start: 06-16-2025 End: 06-16-2025 Departed Referred Coby Sosa MD -[facility] [place] Work Phone: Start: 06-16-2025 End: 06-16-2025 ambulatory Coby Sosa MD Work Phone: [facility] Work Phone: Start: 06-16-2025 End: 06-16-2025 Patient encounter procedure Coby Sosa MD -[facility] Work Phone: Start: 05-28-2025 End: 05-28-2025 ambulatory COBY SOSA [facility] Start: 05-28-2025 End: 05-28-2025 Patient encounter procedure Sharan Ayoub MD -[facility] [place] Work Phone: Start: 05-28-2025 End: 05-28-2025 ambulatory Coby Sosa MD Work Phone: [facility] Work Phone: Start: 05-28-2025 End: 05-28-2025 ambulatory Coby Sosa MD Work Phone: [facility] Work Phone: Start: 05-28-2025 End: 05-28-2025 Patient encounter procedure Coby Sosa MD -[facility] Work Phone: Start: 05-16-2025 End: 05-16-2025 Refill Ember Tejeda DO [phone] Comment on above: Type 1 diabetes chon itus without complication (HCC) Start: 05-13-2025 End: 05-13-2025 Refill Ember Tejeda DO [facility] Phone[facility] Comment on above: Type 1 diabetes chon itus without complication (HCC) Start: 04-03-2025 End: 04-03-2025 ambulatory SHARAN AYOUB [facility] Start: 04-03-2025 End: 04-03-2025 Office outpatient visit 15 minutes Sharan Ayoub MD Work Phone: [facility] [place] Comment on above: 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); Acute rejection of liver transplant (Multi) Start: 03-31-2025 End: 03-31-2025 Patient encounter procedure Sharan Ayoub MD -[facility] [place] Work Phone: Start: 03-31-2025 End: 03-31-2025 ambulatory Coby Sosa MD Work Phone: [facility] Work Phone: Start: 03-05-2025 End: 03-05-2025 ambulatory COBY SOSA [facility] Start: 03-04-2025 End: 03-04-2025 ambulatory Coby Sosa MD Work Phone: [facility] Work Phone: Start: 03-04-2025 End: 03-04-2025 Patient encounter procedure Coby Sosa MD Work Phone: [facility] Work Phone: Start: 03-04-2025 End: 03-04-2025 Patient encounter procedure Coby Sosa MD Work Phone: [facility] [place] Work Phone: Start: 03-04-2025 End: 03-04-2025 ambulatory Coby Sosa MD Work Phone: [facility] Work Phone: Start: 02-25-2025 Non-patient / Non-visit Coby Sosa MD Work Phone: 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); Complications, organ transplant; Elevated LFTs Start: 01-09-2025 End: 01-09-2025 Office outpatient visit 15 minutes Sharan Ayoub MD Work Phone: [facility] [place] Comment on above: 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) (Primary Dx); Hypertension, unspecified type Start: 01-09-2025 End: 01-09-2025 ambulatory SHARAN AYOUB [facility] Start: 12-31-2024 End: 12-31-2024 ambulatory ZHANE NATHAN Not Available Start: 12-31-2024 End: 12-31-2024 Patient encounter procedure Zhane Nathan MD Work Phone: [facility] Comment on above: Common wart (Primary Dx); Other specified erythematous conditions Start: 12-31-2024 End: 12-31-2024 Bamboo flowsheet Zhane Nathan MD Work Phone: [facility] Start: 12-31-2024 End: 12-31-2024 Bamboo flowssabrina Nathan MD Work Phone: [facility] Start: 12-11-2024 End: 12-11-2024 ambulatory Coby Sosa MD Work Phone: [facility] Work Phone: Start: 12-11-2024 End: 12-11-2024 Patient encounter procedure Coby Sosa MD Work Phone: [facility] Work Phone: Start: 12-09-2024 End: 12-09-2024 Patient encounter procedure Coby Sosa MD Work Phone: [facility] [place] Work Phone: Start: 12-09-2024 End: 12-09-2024 ambulatory Coby Sosa MD Work Phone: [facility] Work Phone: Start: 12-03-2024 End: 12-03-2024 ambulatory ZHANE A PETITTI Not Available Start: 12-03-2024 End: 12-03-2024 Patient encounter procedure Zhane Nathan MD Work Phone: [facility] Comment on above: Common wart (Primary Dx); Other specified erythematous conditions Start: 12-03-2024 End: 12-03-2024 Bamboo flowssabrina Nathan MD Work Phone: [facility] Start: 12-03-2024 End: 12-03-2024 Bamboo flowssabrina Nathan MD Work Phone: [facility] Start: 11-12-2024 End: 11-12-2024 Patient encounter procedure Zhane Nathan MD Work Phone: [facility] Comment on above: Common wart (Primary Dx); Other specified erythematous conditions Start: 11-12-2024 End: 11-12-2024 ambulatory ZHANE A PETITTI Not Available Start: 11-12-2024 End: 11-12-2024 Bamboo flowssabrina Nathan MD Work Phone: [facility] Start: 11-12-2024 End: 11-12-2024 Bamboo flowssabrina Nathan MD Work Phone: [facility] Start: 11-05-2024 End: 11-05-2024 Patient encounter procedure Coby Sosa MD Work Phone: [facility] [place] Work Phone: Start: 11-05-2024 End: 11-05-2024 ambulatory Coby Sosa MD Work Phone: [facility] Work Phone: Start: 10-31-2024 End: 10-31-2024 ambulatory Coby Sosa MD Work Phone: [facility] Work Phone: Start: 10-31-2024 End: 10-31-2024 Patient encounter procedure Coby Sosa MD Work Phone: [facility] Work Phone: Start: 10-28-2024 End: 10-28-2024 ambulatory Neyda Hernandez Facility:[facility] Start: 10-28-2024 End: 10-28-2024 Patient encounter procedure Neyda Brittnee Best[facility] Start: 10-10-2024 End: 10-10-2024 ambulatory Coby Sosa MD Work Phone: [facility] Work Phone: Start: 10-10-2024 End: 10-10-2024 Patient encounter procedure Coby Sosa MD Work Phone: [facility] Work Phone: Start: 10-10-2024 End: 10-10-2024 Patient encounter procedure Coby Sosa MD Work Phone: [facility] [place] Work Phone: Start: 10-10-2024 End: 10-10-2024 ambulatory Coby Sosa MD Work Phone: [facility] Work Phone: Start: 10-10-2024 End: 10-10-2024 Office outpatient visit 15 minutes Sharan Ayoub MD Work Phone: [facility] Comment on above: 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) Start: 10-10-2024 End: 10-10-2024 ambulatory SHARAN AYOUB [facility] Start: 10-07-2024 Non-patient / Non-visit Coby Sosa MD Work Phone: [facility] Work Phone: Start: 10-04-2024 Non-patient / Non-visit Coby Sosa MD Work Phone: [facility] Work Phone: Start: 09-20-2024 End: 09-20-2024 Telephone encounter Ember Tejeda DO Work Phone: [id number] Start: 09-09-2024 End: 09-09-2024 Patient encounter procedure Coby Sosa MD Work Phone: [facility] [place] Work Phone: Start: 09-09-2024 End: 09-09-2024 ambulatory Sharan Ayoub Facility:[facility] Start: 08-15-2024 End: 08-15-2024 Patient encounter procedure Coby Sosa MD Work Phone: [facility] [place] Work Phone: Start: 08-15-2024 End: 08-15-2024 ambulatory Coby Sosa MD Work Phone: [facility] Work Phone: Start: 07-19-2024 End: 07-19-2024 ambulatory MD Coby Sosa Work Phone: [facility] Work Phone: Start: 07-19-2024 End: 07-19-2024 Patient encounter procedure MD Coby Sosa Work Phone: [facility] Work Phone: Start: 07-16-2024 Non-patient / Non-visit MD Brea Sosa Work Phone: [facility] Work Phone: Start: 07-15-2024 Non-patient / Non-visit MD Brea Sosa Work Phone: [facility] Work Phone: Start: 07-14-2024 Non-patient / Non-visit MD Brea Sosa Work Phone: [facility] Work Phone: Start: 07-01-2024 End: 07-01-2024 Patient encounter procedure MD Coby Sosa Work Phone: [facility] [place] Work Phone: Start: 07-01-2024 End: 07-01-2024 ambulatory MD Coby Sosa Work Phone: [facility] Work Phone: Start: 05-27-2024 End: 05-27-2024 ambulatory ZHANE NATHAN Not Available Start: 05-27-2024 End: 05-27-2024 Office outpatient visit 10 minutes Zhane Nathan MD Work Phone: [facility] Comment on above: Herpes zoster withou t complication (Primary Dx); Post herpetic neuralgia (CMS/HCC) Start: 05-27-2024 End: 05-27-2024 Bamboo flowsheet Zhane Nathan MD Work Phone: [facility] Start: 05-27-2024 End: 05-27-2024 Bamboo flowsheet Zhane Nathan MD Work Phone: [facility] Start: 05-23-2024 End: 05-23-2024 ambulatory MD Coby Sosa Work Phone: [facility] Work Phone: Start: 05-23-2024 End: 05-23-2024 Patient encounter procedure MD Coby Sosa Work Phone: [facility] Work Phone: Start: 05-13-2024 End: 05-13-2024 ambulatory EMBER TEJEDA Not Available Start: 05-13-2024 End: 05-13-2024 ambulatory MD Coby Sosa Work Phone: [facility] Work Phone: Start: 05-13-2024 End: 05-13-2024 Patient encounter procedure MD Coby Sosa Work Phone: [facility] [place] Work Phone: Start: 05-09-2024 End: 05-09-2024 ambulatory ZHANE BARRAGANLEESA Not Available Start: 05-08-2024 Non-patient / Non-visit MD Brea Sosa Work Phone: [facility] Work Phone: Start: 04-18-2024 End: 04-18-2024 Office outpatient visit 25 minutes Sharan Ayoub MD Work Phone: [facility] Comment on above: 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); 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); Localized edema; Gastroesophageal reflux disease without esophagitis Start: 04-09-2024 End: 04-09-2024 ambulatory MD Coby Sosa Work Phone: [facility] Work Phone: Start: 04-09-2024 End: 04-09-2024 Patient encounter procedure MD Coby Sosa Work Phone: [facility] Work Phone: Start: 04-09-2024 End: 04-09-2024 ambulatory MD Coby Sosa Work Phone: [facility] Work Phone: Start: 04-09-2024 End: 04-09-2024 Patient encounter procedure MD Coby Sosa Work Phone: [facility] [place] Work Phone: Start: 04-02-2024 End: 04-02-2024 ambulatory EMBER M ILEANA Not Available Start: 2024 End: 2024 ambulatory MD Coby Sosa Work Phone: [facility] Work Phone: Start: 2024 End: 2024 Patient encounter procedure MD Coby Sosa Work Phone: [facility] [place] Work Phone: Start: 03-06-2024 End: 03-06-2024 ambulatory MD Coby Sosa Work Phone: [facility] Work Phone: Start: 03-06-2024 End: 03-06-2024 Patient encounter procedure MD Coby Sosa Work Phone: [facility] [place] Work Phone: Start: 02-27-2024 End: 02-27-2024 ambulatory MD Coby Sosa Work Phone: [facility] Work Phone: Start: 02-27-2024 End: 02-27-2024 Patient encounter procedure MD Coby Sosa Work Phone: [facility] [place] Work Phone: Start: 02-21-2024 End: 02-21-2024 ambulatory MD Coby Sosa Work Phone: [facility] Work Phone: Start: 02-21-2024 End: 02-21-2024 Patient encounter procedure MD Coby Sosa Work Phone: [facility] [place] Work Phone: Start: 02-15-2024 End: 02-15-2024 ambulatory MD Coby Sosa Work Phone: [facility] Work Phone: Start: 02-15-2024 End: 02-15-2024 Patient encounter procedure MD Coby Sosa Work Phone: [facility] [place] Work Phone: Start: 02-08-2024 End: 02-08-2024 ambulatory EMBER TEJEDA Not Available Start: 02-06-2024 End: 02-06-2024 ambulatory MD Coby Sosa Work Phone: [facility] Work Phone: Start: 02-06-2024 End: 02-06-2024 Patient encounter procedure MD Coby Sosa Work Phone: [facility] [place] Work Phone: Start: 02-01-2024 End: 02-01-2024 Office outpatient visit 40 minutes Sharan Ayoub MD Work Phone: [facility] Comment on above: 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) (Primary Dx) Start: 01-30-2024 End: 01-30-2024 ambulatory MD Coby Sosa Work Phone: [facility] Work Phone: Start: 01-30-2024 End: 01-30-2024 Patient encounter procedure MD Coby Sosa Work Phone: [facility] [place] Work Phone: Start: 01-18-2024 End: 01-24-2024 Evaluation and management of inpatient Yung Montesinos MD Work Phone: [facility] Amanda 53 Comment on above: 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); Elevated LFTs; Complications, organ transplant; Encounter for screening for cardiovascular disorders; Type 1 diabetes mellitus with hyperglycemia (Multi) Start: 01-17-2024 End: 01-17-2024 Subsequent hospital visit by physician [facility] Ultrasound 3 [facility] Comment on above: 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); Elevated LFTs Start: 01-09-2024 End: 01-09-2024 Subsequent hospital visit by physician Dale [id number] Ultrasound [facility] Comment on above: Elevated LFTs; Liver replaced by transplant (CMS/HCC); Complications, organ transplant Start: 01-04-2024 End: 01-04-2024 ambulatory MD Coby Sosa Work Phone: [facility] Work Phone: Start: 01-04-2024 End: 01-04-2024 Patient encounter procedure MD Coby Sosa Work Phone: [facility] [place] Work Phone: Start: 12-19-2023 End: 12-19-2023 Subsequent hospital visit by physician [facility] 3 [facility] Comment on above: 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); Elevated LFTs Start: 12-12-2023 End: 12-12-2023 Patient encounter procedure MD Coby Sosa Work Phone: [facility] [place] Work Phone: Start: 12-04-2023 End: 12-04-2023 Patient encounter procedure MD Coby Sosa Work Phone: [facility] [place] Work Phone: Start: 10-30-2023 End: 10-30-2023 ambulatory Coby Sosa Other [employer] Other Start: 10-30-2023 Office outpatient vi sit 15 minutes Coby Sosa [facility] Start: 10-30-2023 Telephone encounter Coby Sosa [facility] Start: 10-30-2023 End: 10-30-2023 Patient encounter procedure MD Coby Sosa Work Phone: [facility] Start: 10-26-2023 End: 10-26-2023 ambulatory MD Coby Sosa Work Phone: [facility] Work Phone: Start: 10-26-2023 End: 10-26-2023 Patient encounter procedure MD Coby Sosa Work Phone: [facility] [place] Work Phone: Start: 10-09-2023 End: 10-09-2023 ambulatory Coby Sosa Other [employer] Other Start: 10-09-2023 Office outpatient vi sit 15 minutes Coby Sosa [facility] Start: 10-09-2023 End: 10-09-2023 Patient encounter procedure MD Coby Sosa Work Phone: [facility] Work Phone: Start: 10-03-2023 End: 10-03-2023 ambulatory MD Coby Sosa Work Phone: [facility] Work Phone: Start: 10-03-2023 End: 10-03-2023 Patient encounter procedure MD Coby Sosa Work Phone: [facility] [place] Work Phone: Start: 09-05-2023 End: 09-05-2023 ambulatory MD Coby Sosa Work Phone: [facility] Work Phone: Start: 09-05-2023 End: 09-05-2023 Patient encounter procedure MD Coby Sosa Work Phone: [facility] [place] Work Phone: Start: 08-16-2023 End: 08-16-2023 ambulatory MD Coby Sosa Work Phone: [facility] Work Phone: Start: 08-16-2023 End: 08-16-2023 Patient encounter procedure MD Coby Sosa Work Phone: [facility] [place] Work Phone: Start: 08-03-2023 End: 08-03-2023 Office outpatient visit 25 minutes Sharan Ayoub MD Work Phone: [facility] Comment on above: 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) Start: 07-18-2023 End: 07-18-2023 ambulatory MD Coby Sosa Work Phone: [facility] Work Phone: Start: 07-18-2023 End: 07-18-2023 Patient encounter procedure MD Coby Sosa Work Phone: [facility] [place] Work Phone: Start: 06-26-2023 Rx Renewal Coby Sosa Work Phone: DB-Tmzctrrbcrozbflt-Iv [place] [address] [facility] Work Phone: Start: 06-09-2023 End: 06-09-2023 ambulatory MD Coby Sosa Work Phone: [facility] Work Phone: Start: 06-09-2023 End: 06-09-2023 Patient encounter procedure MD Coby Sosa Work Phone: [facility] [place] Work Phone: Start: 05-24-2023 AUDIT Coby Sosa Work Phone: SX-Sitrmfhtbpsneiez-Fq [place] [address] [facility] Work Phone: Start: 05-24-2023 Chart Update Coby oSsa Work Phone: QC-Ppaxpwjotqqutrmf-Ew [place] [address] [facility] Work Phone: Start: 05-19-2023 End: 05-19-2023 ambulatory MD Coby Sosa Work Phone: [facility] Work Phone: Start: 05-19-2023 End: 05-19-2023 Patient encounter procedure MD Coby Sosa Work Phone: [facility] [place] Work Phone: Start: 05-12-2023 AUDIT Coby Sosa Work Phone: SN-Wonvvsyanyimlicp-Hm [place] [address] [facility] Work Phone: Start: 05-11-2023 Rx Renewal Coby Sosa Work Phone: RY-Jripueolgdmjoyvl-Zx [place] [address] [facility] Work Phone: Start: 05-03-2023 Office consultation new/estab patient 60 min Coby Sosa Work Phone: ZF-Ysccrmdxbx-Yhgsks 1600 DO Work Phone: Start: 05-03-[address] Sharan ricks [place] Facility:[id number] Start: 04-24-2023 End: 04-24-2023 Patient encounter procedure MD Coby Sosa Work Phone: [facility] [place] Work Phone: Start: 04-04-2023 Chart Update Coby Sosa Work Phone: CH-Hrjrxavfeocgmbxd-Br [place] [address] [facility] Work Phone: Start: 04-03-2023 End: 04-03-2023 ambulatory Coby Sosa Other [employer] Other Start: 04-03-2023 Office outpatient vi sit 15 minutes Coby Sosa [facility] Start: 03-28-2023 End: 03-28-2023 ambulatory MD Coby Sosa Work Phone: [facility] Work Phone: Start: 03-28-2023 End: 03-28-2023 Patient encounter procedure MD Coby Sosa Work Phone: [facility] [place] Work Phone: Start: 03-23-2023 AUDIT Coby Sosa Work Phone: GQ-Rtuglnpkljamtyhz-Et [place] [address] [facility] Work Phone: Start: 03-20-2023 Chart Update Coby Sosa Work Phone: WO-Abzijaqwtnyxjsgs-Vr [place] [address] [facility] Work Phone: Start: 03-17-2023 End: 03-17-2023 ambulatory MD Coby Sosa Work Phone: [facility] Work Phone: Start: 03-17-2023 End: 03-17-2023 Patient encounter procedure MD Coby Sosa Work Phone: [facility] [place] Work Phone: Start: 02-28-2023 ELICEO Sosa Work Phone: YU-Mkpjpgthqqmawicd-Aa [place] [address] [facility] Work Phone: Start: 02-20-2023 End: 02-20-2023 Patient encounter procedure MD Cboy Sosa Work Phone: [facility] [place] Work Phone: Start: 02-04-2023 Chart Update Coby Sosa Work Phone: ZP-Xhmmrymbrxxnvcnx-Vq [place] [address] [facility] Work Phone: Start: 02-03-2023 End: 02-03-[address] Sharan Ayoub Facility:[facility] Start: 02-03-2023 End: 02-03-2023 Subsequent hospital visit by physician Sharan Ayoub MD Work Phone: [facility] Comment on above: Liver transplant sta tus (CMS/HCC); Other specified abnormal findings of blood chemistry; Type 2 diabetes mellitus without complications (CMS/HCC); Immunodeficiency, unspecified (CMS/HCC); Anxiety disorder, unspecified; Thyrotoxicosis, unspecified without thyrotoxic crisis or storm Start: 01-31-2023 Rx Renewal Coby Sosa Work Phone: RU-Qhozkguotxdzpkjr-Lf [place] [address] [facility] Work Phone: Start: 01-30-2023 Chart Update Coby Sosa Work Phone: JI-Ndvnuthatusckpbz-Ia [place] [address] [facility] Work Phone: Start: 01-27-2023 End: 01-27-2023 ambulatory MD Coby Sosa Work Phone: [facility] Work Phone: Start: 01-27-2023 End: 01-27-2023 Patient encounter procedure MD Coby Sosa Work Phone: [facility] [place] Work Phone: Start: 01-26-2023 Patient encounter procedure Coby Sosa Work Phone: RC-Krbbzzbtqk-Klocbj Work Phone: Start: 01-26-[address] Yung avila Post Facility:[facility] Start: 01-26-[address] Sharan Lozano Facility:[facility] Start: 01-16-2023 End: 01-16-2023 Patient encounter procedure MD Coby Sosa Work Phone: [facility] [place] Work Phone: Start: 01-11-2023 AUDIT Coby Sosa Work Phone: CC-Dvlgbsimxkqfhjzb-Qd [place] [address] [facility] Work Phone: Start: 12-26-2022 Chart Update Coby Sosa Work Phone: NG-Dpumhaepmgvvbkqg-Hr [place] [address] [facility] Work Phone: Start: 12-23-2022 End: 12-23-2022 ambulatory MD Coby Sosa Work Phone: [facility] Work Phone: Start: 12-23-2022 End: 12-23-2022 Patient encounter procedure MD Coby Sosa Work Phone: [facility] [place] Work Phone: Start: 12-22-2022 End: 12-22-2022 ambulatory Coby Sosa Other [employer] Other Start: 12-22-2022 Office outpatient vi sit 15 minutes Coby Sosa [facility] Start: 11-03-2022 Chart Update Coby Sosa Work Phone: SV-Ccgbsvqrsogeokyx-Ah [place] [address] [facility] Work Phone: Start: 11-02-2022 End: 11-02-2022 ambulatory MD Coby Sosa Work Phone: [facility] Work Phone: Start: 11-02-2022 End: 11-02-2022 Patient encounter procedure MD Coby Sosa Work Phone: [facility] [place] Work Phone: Start: 10-26-2022 End: 10-26-[address] COBY SOSA Facility: Start: 09-05-2022 Rx Renewal Coby Sosa Work Phone: DQ-Qkvwxmkgjsphdbsi-Di [place] [address] [facility] Work Phone: Start: 08-09-2022 End: 08-09-2022 ambulatory MD Coby Sosa Work Phone: [facility] Work Phone: Start: 08-09-2022 End: 08-09-2022 Patient encounter procedure MD Coby Sosa Work Phone: [facility] [place] Start: 07-26-2022 AUDIT Coby Sosa Work Phone: FD-Kpbpblciypjrcyol-Gz [place] [address] [facility] Work Phone: Start: 07-21-2022 Patient encounter procedure Coby Sosa Work Phone: VP-Vyivtapdzm-Gujlbt Work Phone: Start: 07-21-[address] Yung avila Post Facility:[facility] Start: 05-16-2022 Chart Update Coby Sosa Work Phone: SI-Bqanttszfikiunbe-Uq [place] [address] [facility] Work Phone: Start: 05-11-2022 End: 05-11-2022 Patient encounter procedure MD Coby Sosa Work Phone: [facility] [place] Start: 05-10-2022 AUDIT Coby Sosa Work Phone: IC-Uxyuuwqetqtwrqws-Wl [place] [address] [facility] Work Phone: Start: 05-05-2022 Chart Update Coby Sosa Work Phone: CT-Mgmgtepepdzmbgkw-Lj [place] [address] [facility] Work Phone: Start: 05-03-2022 End: 05-03-2022 Patient encounter procedure MD Coby Sosa Work Phone: [facility] [place] Start: 03-21-2022 AUDIT Coby Sosa Work Phone: FV-Couaifvdqwhrlmrn-Nj [place] [address] [facility] Work Phone: Start: 03-11-2022 End: 03-11-2022 Patient encounter procedure MD Coby Sosa Work Phone: [facility] [place] Start: 02-08-2022 AUDIT Coby Sosa Work Phone: IY-Pzgykxugnqjiwwcq-Re [place] [address] [facility] Work Phone: Start: 02-03-2022 Office outpatient vi sit 15 minutes Coby Sosa Work Phone: AF-Pvwvkcohszykyeai-Ma [place] [address] [facility] Work Phone: Start: 02-03-2022 Patient encounter procedure Coby Sosa Work Phone: CZ-Pldkzmqnof-GJK [place] [address] Work Phone: Start: 12-24-2021 End: 12-24-[address] COBY SOSA Facility:[facility] Start: 12-14-2021 Chart Update Coby Sosa Work Phone: IS-Oddfomvobubdbxcb-Kj [place] [address] [facility] Work Phone: Start: 11-25-2021 AUDIT Coby Sosa Work Phone: DT-Nubtuqkquqxuzbsk-Uu [place] [address] [facility] Work Phone: Start: 11-22-2021 Chart Update Coby Sosa Work Phone: FG-Zhdyneztqnuuuqbc-Zh [place] [address] [facility] Work Phone: Start: 08-31-2021 Rx Renewal Coby Sosa Work Phone: EJ-Foshbammqcwwpmzb-Pk [place] [address] [facility] Work Phone: Start: 08-10-2021 Chart Update Coby Sosa Work Phone: IC-Behuyjyjcqokzxdf-Cm [place] [address] [facility] Work Phone: Start: 08-02-2021 Rx Renewal Coby Sosa Work Phone: XM-Fniheclrwgwzpimv-Bn [place] [address] [facility] Work Phone: Start: 07-16-2021 AUDIT Coby Sosa Work Phone: EJ-Klilldwmtdwptgtn-Ki [place] [address] [facility] Work Phone: Start: 07-08-2021 Patient encounter procedure Coby Sosa Work Phone: UQ-Lppopvpxfw-GPG [place] [address] Work Phone: Start: 06-23-2021 Chart Update Coby Sosa Work Phone: VD-Dveyvmpqghvpfweo-Zb [place] [address] [facility] Work Phone: Start: 05-03-2021 Chart Update Coby Sosa Work Phone: XR-Urqqigaifzfyvght-Sl [place] [address] [facility] Work Phone: Start: 11-12-2020 Patient encounter procedure Harmeet Cochran MD NL-Htjgsma-Utpjr Main Work Phone: Start: 11-09-2020 End: 11-09-2020 Patient encounter procedure Coby Sosa -Pre-Surgical Testing Start: 11-04-2020 End: 11-04-2020 Patient encounter procedure Coby Sosa -Pre-Surgical Testing Start: 10-13-2020 End: 10-13-2020 Patient encounter procedure Coby Naik [facility] Start: 10-07-2020 Registered Recurring Coby Gray [facility] Start: 04-30-2020 Patient encounter procedure Harmeet Cochran MD UG-Wdpfssa-Tiotu Main Work Phone: Start: 10-31-2019 Patient encounter procedure Tomaszmary ellen Araselividyawoodrow [facility] LO-Uboouls-Ebqzo Main Work Phone: Start: 08-26-2019 Patient encounter procedure Harmeet Cochran MD UO-Gwmtgsv-Uptfm Main Work Phone: Start: 07-25-2019 Patient encounter procedure Harmeet Cochran MD OW-Bdboprv-Xuckv Main Work Phone: Start: 07-25-2019 Patient encounter procedure Tomaszmary ellen Sammie [facility] SL-Ayjfkiw-Tuhkq Main Work Phone: Start: 05-27-2019 Patient encounter procedure Harmeet Cochran MD OW-Lwkwlrd-Pngdy Main Work Phone: Start: 04-25-2019 Patient encounter procedure Tomaszmary ellen Cochran MD ZC-Ajupppa-Fiwjl Main Work Phone: Start: 04-17-2019 Patient encounter procedure Harmeet Cochran MD OL-Aqypyjx-Bonwk Main Work Phone: Start: 02-11-2019 Patient encounter procedure Harmeet Cochran VJ-Tnveadwylwcbc-Asllr as [place] Work Phone: Start: 01-17-2019 Patient encounter procedure Harmeet Davish XD-Glcxbwvpposqojmq-Xe [place] [address] [facility] Work Phone: Start: 11-12-2018 Patient encounter procedure Baha Susanh SI-Jedvdgsluxhjqlqr-We [place] [address] [facility] Work Phone: Start: 11-12-2018 Patient encounter procedure Baha Arafah CP-Tyargqbyeklbnabl-Ts [place] [address] [facility] Work Phone: Start: 10-10-2018 Patient encounter procedure Baha Susanh OJ-Yxmarnovkjjicawm-Mo [place] [address] [facility] Work Phone: Start: 10-04-2018 Patient encounter procedure Baha Arafah AD-Eskhahszvasxoizv-Cz [place] [address] [facility] Work Phone: Start: 08-21-2018 Patient encounter procedure Baha Arafah WF-Aqzwortivojymtes-Cc [place] [address] [facility] Work Phone: Start: 07-16-2018 Patient encounter procedure Baha Aravidyah EW-Jxsxueveuasjnqfe-Kn [place] [address] [facility] Work Phone: Start: 07-11-2018 Patient encounter procedure Baha Arafah WO-Ndrlgjzsqwssgkzu-Qf [place] [address] [facility] Work Phone: Start: 04-25-2018 Patient encounter procedure Baha Arafah SA-Tgggytekauvhkowg-Fb [place] [address] [facility] Work Phone: Start: 04-11-2018 Patient encounter procedure Baha Aravidyah PT-Pergfkmfgeqhxhhi-Pn [place] [address] [facility] Work Phone: Start: 02-13-2018 Patient encounter procedure Baha Aravidyah IO-Vjwxncyvajicnrwd-Qu [place] [address] [facility] Work Phone: Start: 01-31-2018 Patient encounter procedure Baha Aravidyah TH-Cpnvibxatctuxdjy-Du [place] [address] [facility] Work Phone: Start: 12-13-2017 Patient encounter procedure Baha Aravidyah XI-Gohyxkcyjumzdewq-Do [place] [address] [facility] Work Phone: Start: 11-08-2017 Patient encounter procedure Baha Aravidyah XN-Eoaejldljyjgpqvw-Zj [place] [address] [facility] Work Phone: Start: 10-04-2017 Patient encounter procedure Baha Arafah KF-Fmukhqnhyctrcrlj-Nx [place] [address] [facility] Work Phone: Start: 08-30-2017 Patient encounter procedure Baha Arafah JD-Wtvobodumpdtluii-Sy [place] [address] [facility] Work Phone: Start: 07-11-2017 Patient encounter procedure Baha Arafah SD-Rdyvokaktigtgvrd-An [place] [address] [facility] Work Phone: Start: 06-07-2017 Patient encounter procedure Baha Arafah EA-Bkaqylepccbzgpim-Nc [place] [address] [facility] Work Phone: Start: 05-22-2017 Admission to day surgery Baha Aramicaela KK-Aywpvnumspyldajf-Uh [place] [address] [facility] Work Phone: Start: 05-11-2017 [facility] HG-Mvyaokubpunyezrc-Hm [place] [address] [facility] Work Phone: Start: 04-26-2017 Patient encounter procedure Tomasza Aramicaela DY-Aaxfpapkvrwwzozq-Ja [place] [address] [facility] Work Phone: Start: 04-17-2017 Admission to day surgery Tomasza Sammie BC-Hdnfzzrbpwgxiwnh-Us [place] [address] [facility] Work Phone: Start: 04-11-2017 Patient encounter procedure Tomasza Sammie LV-Lueqgawhgbhsofpc-Be [place] [address] [facility] Work Phone: Start: 02-20-2017 [facility] SJ-Byboyqlqrdsnbaho-An [place] [address] [facility] Work Phone: Procedures Date Procedure Procedure Detail Performing Clinician Start: 01-09-2025 Us abdominal real time w/image limited Sharan Ayoub MD Work Phone: Start: 12-31-2024 CRYOTHERAPY SKIN LESION Zhane Nathan MD Work Phone: Start: 12-03-2024 CRYOTHERAPY SKIN LESION Zhane Nathan MD Work Phone: Start: 11-12-2024 CRYOTHERAPY SKIN LESION Zhane Nathan MD Work Phone: Start: 07-14-2024 Blood Culture 1 Coby Sosa MD Work Phone: Start: 07-14-2024 Blood Culture 2 Coby Sosa MD Work Phone: Start: 01-24-2024 Glucose quantitative blood xcpt reagent strip Olivia Castaneda MD Work Phone: Start: 01-24-2024 Glucose quantitative blood xcpt reagent strip Olivia Castaneda MD Work Phone: Start: 01-24-2024 End: 01-24-2024 Comprehensive metabolic panel Mya Dawson MD Work Phone: Start: 01-24-2024 Drug screen quantitative tacrolimus Mya Dawson MD Work Phone: Start: 01-24-2024 Glucose quantitative blood xcpt reagent strip Olivia Castaneda MD Work Phone: Start: 01-23-2024 Glucose quantitative blood xcpt reagent strip Olivia Castaneda MD Work Phone: Start: 01-23-2024 Glucose quantitative blood xcpt reagent strip Olivia Castaneda MD Work Phone: Start: 01-23-2024 Echo tthrc r-t 2d w/wom-mode compl spec&colr d Olivia Castaneda MD Work Phone: Start: 01-23-2024 End: 01-23-2024 Comprehensive metabolic panel Mya Dawson MD Work Phone: Start: 01-23-2024 Drug screen quantitative tacrolimus Mya Dawson MD Work Phone: Start: 01-23-2024 Us abdominal real time w/image limited Debo Urias MD Work Phone: Start: 01-23-2024 Glucose quantitative blood xcpt reagent strip Olivia Castaneda MD Work Phone: Start: 01-23-2024 Biopsy liver needle percutaneous Mya Dawson MD Work Phone: Start: 01-23-2024 Glucose quantitative blood xcpt reagent strip Olivia Castaneda MD Work Phone: Start: 01-22-2024 Glucose quantitative blood xcpt reagent strip Olivia Castaneda MD Work Phone: Start: 01-22-2024 Glucose quantitative blood xcpt reagent strip Olivia Castaneda MD Work Phone: Start: 01-22-2024 Drug screen quantitative tacrolimus Mya Dawson MD Work Phone: Start: 01-22-2024 End: 01-22-2024 Natriuretic peptide Mya Dawson MD Work Phone: Start: 01-22-2024 Glucose quantitative blood xcpt reagent strip Olivia Castaneda MD Work Phone: Start: 01-22-2024 End: 01-22-2024 Comprehensive metabolic panel Blaine Linares MD Work Phone: Start: 01-21-2024 Glucose quantitative blood xcpt reagent strip Olivia Castaneda MD Work Phone: Start: 01-21-2024 Glucose quantitative blood xcpt reagent strip Olivia Castaneda MD Work Phone: Start: 01-21-2024 End: 01-21-2024 Comprehensive metabolic panel Mya Dawson MD Work Phone: Start: 01-21-2024 Drug screen quantitative tacrolimus Mya Dawson MD Work Phone: Start: 01-21-2024 Glucose quantitative blood xcpt reagent strip Olivia Castaneda MD Work Phone: Start: 01-20-2024 Glucose quantitative blood xcpt reagent strip Olivia Castaneda MD Work Phone: Start: 01-20-2024 Glucose quantitative blood xcpt reagent strip Olivia Castaneda MD Work Phone: Start: 01-20-2024 Glucose quantitative blood xcpt reagent strip Olivia Castaneda MD Work Phone: Start: 01-20-2024 Drug screen quantitative tacrolimus Mya Dawson MD Work Phone: Start: 01-20-2024 Comprehensive metabolic panel Mya Dawson [...] Olivia Castaneda MD Work Phone: Start: 01-19-2024 End: 01-19-2024 Comprehensive metabolic panel Sukumar Thomson MD Work Phone: Start: 01-19-2024 Drug screen quantitative tacrolimus Patti Darnell MD Work Phone: Start: 01-18-2024 Urinalysis microscopic panel - Urine Qualitative by Automated Patti Darnell MD Work Phone: Start: 01-18-2024 Urnls dip stick/tablet reagent auto microscopy Patti Darnell MD Work Phone: Start: 01-18-2024 Comprehensive metabolic panel Patti Darnell MD Work Phone: Start: 01-18-2024 Culture bacterial blood aerobic w/id isolates Patti Darnell MD Work Phone: Start: 01-17-2024 Biopsy liver needle percutaneous Sharan Ayoub MD Work Phone: Start: 01-09-2024 Us abdominal real time w/image limited Sharan Ayoub MD Work Phone: Start: 12-19-2023 Biopsy liver needle percutaneous Sharan Ayoub MD Work Phone: Start: 12-19-2023 Glucose quantitative blood xcpt reagent strip Interface Unspecifiedprovider Work Phone: Start: 10-26-2023 Drug screen quantitative tacrolimus Sharan Ayoub MD Work Phone: Start: 06-09-2023 Lipid 1996 panel - Serum or Plasma Sharan Ayoub MD Work Phone: Start: 06-09-2023 Thyrotropin [Units/volume] in Serum or Plasma Sharan Ayoub MD Work Phone: Start: 02-03-2023 US Guidance for biopsy of Liver Sharan Ayoub MD Work Phone: Start: 02-03-2023 SURGICAL PATHOLOGY RESULTS Yoel Perera PA-C Work Phone: Start: 11-11-2020 Extracorporeal shockwave lithotripsy of calculus of kidney Neyda Lue Start: 09-14-2020 Extracorporeal shockwave lithotripsy of calculus of kidney Neyda Lue Start: 02-11-2019 Hemoglobin glycosylated a1c [facility] Start: 02-06-2019 IO Liver Ultrasound [facility] Start: 02-06-2019 Ultrasound Liver [facility] Start: 01-17-2019 Basic metabolic 1998 panel - Serum or Plasma [facility] Start: 01-17-2019 Creatinine clearance [facility] Start: 04-08-2016 H/O: liver recipient Liver replaced by transplant Sharan Ayoub MD Work Phone: Start: 10-02-2015 Transplantation of liver Neyda Lue Cholecystectomy Neyda Lue H/O: liver recipient Liver repla jenna by [...] by transplant MD Coby Sosa Work Phone: H/O: liver recipient Liver repla jenna by transplant (Multi) Sharan Ayoub MD Work Phone: H/O: liver recipient Liver repla jenna by transplant (Multi) Sharan Ayoub MD Work Phone: H/O: liver recipient Liver repla jenna by transplant (Multi) Sharan Ayoub MD Work Phone: H/O: liver recipient Liver repla jenna by transplant (Multi) [facility] H/O: liver recipient Liver repla jenna by transplant Coby Sosa MD H/O: liver recipient Liver repla jenna by transplant (Multi) Sharan Ayoub MD Work Phone: H/O: liver recipient Liver repla jenna by transplant Coby Sosa MD History of Liver Transplant [facility] Plan of Treatment Date Care Activity Detail Author Start: 2053 RSV patient s and/or patients aged 60+ years (1 - 1-dose 60+ series) RSV patients and/or patients aged 60+ years (1 - 1-dose 60+ series) [facility] Start: 07-03-2025 End: 07-03-2025 Patient encounter procedure 07/03/2025 10:15 AM EDT Office Visit [facility] [address] [id number] [place] [address] [place] [address] [facility] Start: 06-17-2025 Urine culture [facility] Start: 06-16-2025 Bacteria identified in Urine by Culture Urine Culture [facility] Start: 06-02-2025 Influenza vaccination [facility] Start: 04-03-2025 End: 04-03-2025 Patient encounter procedure 04/03/2025 10:00 AM EDT Office Visit [facility] [address] [facility] [address] [place] [address] [place] [address] [facility] [place] [address] [facility] Start: 02-03-2025 End: 02-03-2025 Patient encounter procedure 02/03/2025 3:15 PM EDT Office Visit [facility] [address] [place] [address] Zhane Nathan MD [address] [place] [address] [facility] Start: 01-09-2025 End: 01-09-2025 Patient encounter procedure [facility] Start: 12-31-2024 End: 12-31-2024 Patient encounter procedure 12/31/2024 3:40 PM EDT Office Visit [facility] [address] [place] [address] Zhane Nathan MD [address] [place] [address] [facility] Start: 12-03-2024 End: 12-03-2024 Patient encounter procedure 12/03/2024 3:55 PM EST Office Visit [facility] [address] [place] [address] Zhane Nathan MD [address] [place] [address] [facility] Start: 11-12-2024 End: 11-12-2024 Patient encounter procedure 11/12/2024 3:30 PM EST Office Visit [facility] [address] [place] [phone] Zhane Nathan MD [address] [place] [address] Arrived [facility] Comment on above: Arrived Start: 10-10-2024 [facility] Start: 09-23-2024 End: 09-23-2024 Patient encounter procedure 09/23/2024 1:15 PM EST Office Visit [facility] [address] [place] [address] Ember Tejeda, DO [address] [place], [place] [id number] [facility] Start: 08-22-2024 End: 08-22-2024 Patient encounter procedure 08/22/2024 9:30 AM EST Office Visit [facility] [address] [facility] [address] [place] [address] [place] [address] [facility] Department of Medicine-Gastroentero [place] [phone] [facility] Start: 07-25-2024 End: 07-25-2024 Patient encounter procedure 07/25/2024 3:45 PM EDT Office Visit [facility] [address] [place] [address] Ember Tejeda, DO [address] [place] [address] [facility] Start: 07-15-2024 End: 07-15-2024 Patient encounter procedure 07/15/2024 4:00 PM EDT Office Visit [facility] [address] [place] [address] Ember Tejeda, DO [address] [place] [address] [facility] Start: 07-14-2024 Blood Culture 1 Blood Culture 1 [facility] Start: 07-14-2024 Blood Culture 2 Blood Culture 2 [facility] Start: 07-03-2024 Hemoglobin A1c measurement Diabetes: Hemoglobin A1C [facility] Start: 06-09-2024 Lipid panel Lipid Panel [facility] Start: 06-09-2024 Thyroid stimulating hormone measurement TSH Level [facility] Start: 06-07-2024 End: 06-07-2024 Patient encounter procedure 06/07/2024 9:45 AM EDT Office Visit [facility] [address] [facility] [address] [place] [phone] [place] [address] Department [place] [address] [facility] Start: 06-02-2024 Influenza vaccination [facility] [place] Start: 04-23-2024 End: 04-18-2025 Basic metabolic 2000 panel - Serum or Plasma Basic Metabolic Panel Lab Routine 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) Expected: 04/23/2024 (Approximate), Expires: 04/18/2025 [facility] Work Phone: Comment on above: Expected: 04/23/2024 (Approximate), Expires: 04/18/2025 Start: 04-23-2024 End: 04-18-2025 CBC W Auto Differential panel - Blood CBC and Auto Differential Lab Routine 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) Expected: 04/23/2024 (Approximate), Expires: 04/18/2025 [facility] Service Area Work Phone: Comment on above: Expected: 04/23/2024 (Approximate), Expires: 04/18/2025 Start: 04-23-2024 End: 04-18-2025 Hepatic function 2000 panel - Serum or Plasma Hepatic Function Panel Lab Routine 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) Expected: 04/23/2024 (Approximate), Expires: 04/18/2025 [facility] Work Phone: Comment on above: Expected: 04/23/2024 (Approximate), Expires: 04/18/2025 Start: 04-23-2024 End: 04-18-2025 Tacrolimus [Mass/volume] in Blood Tacrolimus Lab Routine 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) Expected: 04/23/2024 (Approximate), Expires: 04/18/2025 [facility] Work Phone: Comment on above: Expected: 04/23/2024 (Approximate), Expires: 04/18/2025 Start: 04-19-2024 Hemoglobin A1c measurement Diabetes: Hemoglobin A1C [facility] Start: 04-18-2024 End: 04-18-2024 Patient encounter procedure 04/18/2024 9:30 AM EDT Office Visit [facility] [place] [address] [place] [phone] [place] [address] [place] [phone] [facility] Start: 02-01-2024 End: 02-01-2024 Patient encounter procedure [facility] Comment on above: 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) (Primary Dx) 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) (Primary Dx) Start: 10-03-2023 [facility] Start: 09-05-2023 [facility] Start: 08-03-2023 LIVFUVMED, Provider: Sharan Ayoub, Status: Pen, Time: 10:00 AM LIVFUVMED, Provider: Sharan Ayoub, Status: Pen, Time: 10:00 AM [facility] Work Phone: Start: 08-02-2023 VIRFUVHOME, Provider : Leighton Reilly, Status: Pen, Time: 2:40 PM VIRFUVHOME, Provider: Leighton Reilly, Status: Pen, Time: 2:40 PM [facility] [address] Work Phone: Start: 07-18-2023 [facility] Start: 06-09-2023 [facility] Start: 06-02-2023 Influenza vaccination Influenz a Vaccine (#1) [facility] Start: 05-19-2023 [facility] Start: 05-03-2023 FUVHOSP, Provider: Leighton Reilly, Status: Pen, Time: 4:00 PM FUVHOSP, Provider: Leighton Reilly, Status: Pen, Time: 4:00 PM [facility] [address] Work Phone: Start: 03-28-2023 [facility] Start: 03-28-2023 VIRNPVGEORGIEE, Provider : Angela Mc, Status: Pen, Time: 10:20 AM VIRNPVHOME, Provider: Angela Mc, Status: Pen, Time: 10:20 AM [facility] [address] [facility] Work Phone: Start: 03-22-2023 FUVHOSP, Provider: Leighton Reilly, Status: Pen, Time: 3:20 PM FUVHOSP, Provider: Leighton Reilly, Status: Pen, Time: 3:20 PM [facility] [address] Work Phone: Start: 01-26-2023 LIVFUVMED, Provider: Sharan Ayoub, Status: Pen, Time: 10:45 AM LIVFUVMED, Provider: Sharan Ayoub, Status: Pen, Time: 10:45 AM [facility] [address] Work Phone: Start: 01-19-2023 LIVFUVMED, Provider: Sharan Ayoub, Status: Pen, Time: 10:45 AM LIVFUVMED, Provider: Sharan Ayoub, Status: Pen, Time: 10:45 AM [facility] Work Phone: Start: 07-21-2022 LIVFUVMED, Provider: Sharan Ayoub, Status: Pen, Time: 10:45 AM LIVFUVMED, Provider: Sharan Ayoub, Status: Pen, Time: 10:45 AM [facility] [address] Work Phone: Start: 05-11-2022 End: 05-11-2022 Patient encounter procedure [facility] [place] Start: 02-03-2022 VIRFUVHOME, Provider : Sharan Ayoub, Status: Pen, Time: 9:00 AM VIRFUVHOME, Provider: Sharan Ayoub, Status: Pen, Time: 9:00 AM [facility] [address] Work Phone: Start: 07-08-2021 VIRFUVHOME, Provider : Sharan Ayoub, Status: Pen, Time: 10:30 AM VIRFUVHOME, Provider: Sharan Ayoub, Status: Pen, Time: 10:30 AM [facility] [address] Work Phone: Start: 05-06-2021 LIVFUVMED, Provider: Sharan Ayoub, Status: Pen, Time: 10:15 AM LIVFUVMED, Provider: Sharan Ayoub, Status: Pen, Time: 10:15 AM [facility] [address] Work Phone: Start: 03-16-2020 DTaP/Tdap/Td Vaccine s (2 - Td or Tdap) DTaP/Tdap/Td Vaccines (2 - Td or Tdap) [facility] Start: 03-11-2019 Ultrasound Liver [facility] -[facility] [address] Work Phone: Start: 03-04-2019 IO Liver Ultrasound [facility] [address] [facility] Work Phone: Start: 11-21-2017 Hemoglobin A1c measurement Diabetes: Hemoglobin A1C [facility] Start: 2015 DTaP/Tdap/Td Vaccine s (1 - Tdap) DTaP/Tdap/Td Vaccines (1 - Tdap) [facility] Start: 2012 Hepatitis A Vaccines (1 of 2 - Risk 2-dose series) Hepatitis A Vaccines (1 of 2 - Risk 2-dose series) [facility] Start: 2012 Pneumococcal Vaccine : Pediatrics and At-Risk Adult Patients (1 of 2 - PCV) Pneumococcal Vaccine: Pediatrics and At-Risk Adult Patients (1 of 2 - PCV) [facility] Start: 2012 Urine screening for protein Diabetes: Urine Protein Screening [facility] Start: 2012 Zoster Vaccines (1 of 2) Zoste r Vaccines (1 of 2) [facility] Start: 09-15-2010 Hepatitis A Vaccines (2 of 2 - Risk 2-dose series) Hepatitis A Vaccines (2 of 2 - Risk 2-dose series) [facility] Start: 04-20-2010 Hepatitis B Vaccines (2 of 3 - 3-dose series) Hepatitis B Vaccines (2 of 3 - 3-dose series) [facility] Start: 2006 Varicella vaccination Varicell a Vaccines (1 of 2 - 13+ 2-dose series) [facility] Start: 2003 Diabetic foot examination Diabetes: Foot Exam [facility] Start: 2003 Glaucoma screening Diabetes: R etinopathy Screening [facility] Start: 1999 Pneumococcal Vaccine : Pediatrics (0 to 5 Years) and At-Risk Patients (6 to 64 Years) (1 - PCV) Pneumococcal Vaccine: Pediatrics (0 to 5 Years) and At-Risk Patients (6 to 64 Years) (1 - PCV) [facility] Start: 1999 Pneumococcal Vaccine : Pediatrics (0 to 5 Years) and At-Risk Patients (6 to 64 Years) (1 of 2 - PCV) Pneumococcal Vaccine: Pediatrics (0 to 5 Years) and At-Risk Patients (6 to 64 Years) (1 of 2 - PCV) [facility] Start: 1998 COVID-19 Vaccine (#1) COVID-19 Vacci ne (#1) [facility] Start: 1994 MMR Vaccines (1 of 1 - Standard series) MMR Vaccines (1 of 1 - Standard series) [facility] Start: 1994 Varicella vaccination Varicell a Vaccines (1 of 2 - 2-dose childhood series) [facility] Start: 1993 Cyanocobalamin vitam in b-12 Vitamin B-12 [facility] Start: 1993 Diabetes: Celiac Dis ease Screening Diabetes: Celiac Disease Screening [facility] Start: 1993 Hepatitis B Vaccines (1 of 3 - 3-dose series) Hepatitis B Vaccines (1 of 3 - 3-dose series) [facility] Start: 1993 HIV screening HIV Screening [facility] Start: 1993 Urine screening for protein Diabetes: Urine Protein Screening [facility] Start: 1993 Yearly Adult Physical Yearly Adult P hysical [facility] Albumin/Globulin ratio [facility] Anion gap measurement [facility] Basophils [#/volume] in Blood by Automated count [facility] Basophils/100 leukoc ytes in Blood by Automated count [facility] Electrocardiogram, 12-lead PRN ACS symptoms Electrocardiogram, 12-lead PRN ACS symptoms ECG Routine As needed until discontinued starting 01/18/2024 [facility] Service Area Work Phone: Comment on above: As needed until disc ontinued starting 01/18/2024 Eosinophils/100 leukocytes in Blood by Automated count [facility] Isaac Fair virus D NA [#/volume] (viral load) in Blood by [address] with probe detection [facility] Isaac Fair virus D NA [#/volume] (viral load) in Blood by [address] with probe detection [facility] Isaac Fair virus D NA [#/volume] (viral load) in Serum or Plasma by [address] with probe detection [facility] Isaac Fair virus D NA [#/volume] (viral load) in Serum or Plasma by [address] with probe detection [facility] Isaac Fair virus D NA [#/volume] (viral load) in Serum or Plasma by [address] with probe detection [facility] Isaac Fair virus D NA [#/volume] (viral load) in Serum or Plasma by [address] with probe detection [facility] Isaac Fair virus D NA assay [facility] Isaac Fair virus D NA assay [facility] Isaac Fair virus D NA assay [facility] Isaac Fair virus D NA assay [facility] Erythrocyte distribu tion width [Ratio] by Automated count [facility] Erythrocytes [#/volu me] in Blood [facility] Globulin [Mass/volum e] in Serum [facility] Glucose [Mass/volume ] in Serum or Plasma POCT Glucose Point of Care Testing - Docked Device Routine As needed (Lab) until discontinued starting 01/18/2024 [facility] Work Phone: Comment on above: As needed (Lab) unti l discontinued starting 01/18/2024 End: 01-19-2024 Glucose [Mass/volume] in Serum or Plasma POCT Glucose Point of Care Testing - Docked Device Routine Once (Lab) for 1 Occurrences starting 01/19/2024 until 01/19/2024 [facility] Work Phone: Comment on above: Once (Lab) for 1 Occ urrences starting 01/19/2024 until 01/19/2024 End: 01-21-2024 Glucose [Mass/volume] in Serum or Plasma POCT Glucose Point of Care Testing - Docked Device Routine 4 times daily before meals and at bedtime for 3 Days starting 01/19/2024 until 01/21/2024, 6 completed [facility] Work Phone: Comment on above: 4 times daily before meals and at bedtime for 3 Days starting 01/19/2024 until 01/21/2024, 6 completed End: 01-25-2024 Glucose [Mass/volume] in Serum or Plasma POCT Glucose Point of Care Testing - Docked Device Routine 4 times daily before meals and at bedtime for 3 Days starting 01/22/2024 until 01/25/2024, 2 completed [facility] Service Area Work Phone: Comment on above: 4 times daily before meals and at bedtime for 3 Days starting 01/22/2024 until 01/25/2024, 2 completed Hematocrit [Volume Fraction] of Blood [facility] Hemoglobin [Mass/vol ume] in Blood [facility] Leukocytes [#/volume ] corrected for nucleated erythrocytes in Blood by Automated coun [facility] Leukocytes [#/volume ] in Blood [facility] Lymphocytes [#/volum e] in Blood by Automated count [facility] Lymphocytes/100 leukocytes in Blood by Automated count [facility] MCH [Entitic mass] b y Automated count [facility] MCHC [Mass/volume] b y Automated count [facility] MCV [Entitic volume] by Automated count [facility] Monocytes [#/volume] in Blood by Automated count [facility] Monocytes/100 leukoc ytes in Blood by Automated count [facility] Neutrophils [#/volum e] in Blood by Automated count [facility] Neutrophils/100 leukocytes in Blood by Automated count [facility] Nucleated erythrocyt es [Presence] in Blood by Automated count [facility] Platelet mean volume [Entitic volume] in Blood by Automated count [facility] Platelets [#/volume] in Blood [facility] Polymerase chain reaction for Isaac-Fair virus [facility] Polymerase chain reaction for Isaac-Fair virus [facility] End: 12-19-2023 Surgical pathology study [facility] Service Grabiel bailey Work Phone: Comment on above: Once (Lab) for 1 Occ urrences starting 12/19/2023 until 12/19/2023, 1 completed End: 01-17-2024 Surgical pathology study [facility] Service Grabiel bailey Work Phone: Comment on above: Once (Lab) for 1 Occ urrences starting 01/17/2024 until 01/17/2024, 1 completed End: 01-23-2024 Surgical pathology study [facility] Service Grabiel bailey Work Phone: Comment on above: Once (Lab) for 1 Occ urrences starting 01/23/2024 until 01/23/2024, 1 completed Tacrolimus [Mass/vol ume] in Blood [facility] Tacrolimus [Mass/vol ume] in Blood [facility] Tacrolimus [Mass/vol ume] in [facility] Tacrolimus [Mass/vol ume] in [facility] Tacrolimus [Mass/vol ume] in [facility] Tacrolimus [Mass/vol ume] in [facility] Tacrolimus [Mass/vol ume] in [facility] Tacrolimus [Mass/vol ume] in [facility] Tacrolimus [Mass/vol ume] in [facility] Tacrolimus [Mass/vol ume] in [facility] Tacrolimus [Mass/vol ume] in [facility] Tacrolimus [Mass/vol ume] in [facility] Tacrolimus [Mass/vol ume] in [facility] Tacrolimus [Mass/vol ume] in [facility] Tacrolimus [Mass/vol ume] in [facility] Tacrolimus [Mass/vol ume] in [facility] Tacrolimus [Mass/vol ume] in [facility] Tacrolimus [Mass/vol ume] in [facility] Urine culture [facility]ero log[facility] -[place] [address] Work Phone: [facility] NEGATED: Highlighted row has been ruled out! Planned Goals not documented -Gastroenterology -[place] [address] Work Phone: Immunizations Immunization Date Immunization Notes Care Provider Vidya [facility] 08-15-2016 influenza, seasonal, injectable, preservative free; Translations: [Fluarix 0.5 ML MATIAS] Harmeet Cochran -Gastroenterology- [place] [address] Work Phone: Comment on above: Series: 08-15-2016 influenza virus vaccine, unspecified formulation Sharan Ayoub MD Work Phone: [facility] Work Phone: 03-23-2010 hepatitis B vaccine, pediatric or pediatric/adolescent dosage Yung Montesinos MD Work Phone: [facility] Work Phone: 03-16-2010 hepatitis A vaccine, adult dosage Yung Montesinos MD Work Phone: [facility] [facility] Work Phone: 03-16-2010 tetanus toxoid, redu jenna diphtheria toxoid, and acellular pertussis vaccine, adsorbed Yung Montesinos MD Work Phone: [facility] Work Phone: 03-16-2010 hepatitis A and hepatitis B vaccine [facility] 3 [facility] Work Phone: Payers Date Payer Category Payer Self-pay [id number] 2022 Private Health Insurance [id number] 2022 Unknown 1993 Unknown [id number] 2.16.84 0.1.636239.3.579.2.593 1993 Unknown [id number] 2.16.84 0.1.901653.3.579.2.593 1993 Unknown [id number] 2.16. 840.1.077767.3.579.2.356 1993 Unknown [id number] 2.16. 840.1.044312.3.579.2.356 1993 Unknown [id number] 2.16. 840.1.594926.3.579.2.356 1993 Unknown [id number] 2.16. 840.1.077178.3.579.2.356 1993 Unknown [id number] 2.16. 840.1.343374.3.579.2.356 1993 Unknown [id number] 2.16.8 40.1.783431.3.579.2.727 1993 Unknown [id number] 2.16.8 40.1.854614.3.579.2.727 1993 Unknown [id number] 2.16.84 0.1.930495.3.579.2.9 1993 Unknown [id number] 2.16.84 0.1.730557.3.579.2.1258 1993 Unknown [id number] 2.16.84 0.1.694560.3.579.2.9 1993 Unknown [id number] 2.16.84 0.1.709083.3.579.2.1258 1993 Unknown [id number] 2.16.84 0.1.924773.3.579.2.1258 1993 Unknown [id number] 2.16.84 0.1.937538.3.579.2.1258 1993 Unknown [id number] 2.16.84 0.1.779290.3.579.2.1258 1993 Unknown [id number] 2.16.84 0.1.883934.3.579.2.1258 1993 Unknown [id number] 2.16.8 40.1.305225.3.579.2.1245 1993 Unknown [id number] 2.16.8 40.1.295686.3.579.2.1245 1993 Unknown [id number] 2.16. 840.1.187346.3.579.2.1244 1993 Unknown [id number] 2.16 840.1.609466.3.579.2.1244 1993 Unknown [id number] 2.16. 840.1.585499.3.579.2.1244 1993 Unknown [id number] 2.16. 840.1.880448.3.579.2.1244 1993 Unknown [id number] 2.16. 840.1.358935.3.579.2.1245 1959 Unknown [id number] 1959 Unknown [id number] Unknown [id number] Unknown [id number] 2.16 .840.1.005963.19 Unknown [id number] 2.16.8 40.1.182769.3.579.2.531 Unknown [id number] 2.16.8 40.1.231731.3.579.2.531 Unknown [id number] 2.16.8 40.1.779638.3.579.2.531 Unknown [id number] 2.16.8 40.1.778080.3.579.2.531 Unknown [id number] 2.16.8 40.1.531662.3.579.2.531 Unknown [id number] 2.16.8 40.1.476000.3.579.2.531 Unknown [id number] 2.16.8 40.1.098616.3.579.2.531 Unknown [id number] 2.16.8 40.1.197550.3.579.2.531 Unknown [id number] 2.16.8 40.1.659250.3.579.2.531 Unknown [id number] 2.16.8 40.1.592487.3.579.2.531 Unknown [id number] 2.16.8 40.1.312588.3.579.2.531 Social History Date Type Detail Facility Start: 1995 Sex Assigned At Male [facility] Start: 07-19-2023 End: 11-16-2023 Does not use tobacco Does not use tobacco [facility] [place] [address] [facility] Work Phone: Start: 11-11-2020 End: 05-28-2025 Tobacco smoking status NHIS Never smoked tobacco (finding) [facility] Start: 07-19-2023 End: 11-16-2023 Sex Assigned At [facility] Start: 05-11-2023 End: 07-19-2023 Tobacco use and exposure Smokeless tobacco non-user [facility] Work Phone: Start: 1995 Sex Assigned At Not on file [facility] Work Phone: Start: 07-24-2023 End: 01-09-2025 Exposure to SARS-CoV-2 (event) Not sure [facility] Tobacco smoking status NHIS Tobacco smoking consumption unknown [facility] Work Phone: Start: 12-19-2023 Alcohol intake Lifetime non-d lyndon (finding) [facility] Work Phone: How often to you have a drink containing alcohol? Never [facility] Work Phone: How many standard drinks containing alcohol do you have on a typical day? Patient does not drink [facility] Work Phone: In the past 12 months, was there a time when you were not able to pay the mortgage or rent on time? No [facility] Work Phone: Start: 08-16-2024 End: 03-04-2025 Sex Male (finding) [facility] Start: 05-13-2024 End: 12-31-2024 Alcoholic beverage intake Ex-drinker (finding) [facility] NEGATED: Highlighted row - Never smoker [facility] [place] [address] [facility] Work Phone: Medical Equipment Procedure Code Equipment [...] sugar s 5 times daily as directed [id number] Test 4 times daily [id number] Start: 10-25-2016 Use to inject 1- 4 times daily as directed. [id number] Start: 01-24-2024 End: 01-23-2025 Use to inject 1- 4 times daily as directed. [id number] Start: 01-24-2024 End: 01-24-2024 USE DIRECTED FIVE TIMES DAILY [id number] Start: 03-06-2023 Testing 5 times a day [id number] Sta rt: 06-10-2024 Goals Date Patient Goal Desired Activity /State Functional Status Date Assessment Result Facility NEGATED: Highlighted row Functional performance Functional status health issues are not documented [facility] [address] [facility] Work Phone: Mental Status Date Assessment Result Facility NEGATED: Highlighted row Cognitive function [Interpretation] Cognitive status health issues are not documented [facility] -[facility] [address] [facility] Work Phone: Clinical Notes 04-01-2016 to 05-28-2025 Note Date & Type Note Facility 05-28-2025 Evaluation note Diagnosis Onset Date Resolution Depression acute May 28, 2 025 9:26am Hyperglycemia due to type 1 diabetes mellitus acute May 28, 2025 9:26am Irritable bowel syndrome with diarrhea acute May 28 9:26am Jaundice not of acute A ugust 2024 9:26am Liver replaced by transplant acute May 28 9:26am Dysuria acute June 3:04pm [facility] Work Phone: 1(527) 730-501207-03-2025 Evaluation + Plan note* Assessment & Plan Note - Sharan Ayoub MD - 04/03/2025 2:31 PM EDTAssociated Problem(s): 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) We recommended annual dermatological examination [facility] Work Phone: 1(907) 319-165107-03-2025 Evaluation + Plan note* Assessment & Plan Note - Sharan Ayoub MD - 04/03/2025 2:31 PM EDTAssociated Problem(s): Elevated LFTs Despite 3 biopsies in the last 3 years and extensive testing, the exact etiology remains unclear For now we will very slowly taper pred to 5 mg daily We ill increase mycophenolate to 500 am and 250 pm He will stay on same dose of tacrolimus We will check labs monthly We will see him in 3 months [facility] Work Phone: 1(564) 561-246907-03-2025 Miscellaneous Notes* Assessment & Plan Note - Sharan Ayoub MD - 04/03/2025 2:31 PM EDTAssociated Problem(s): 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) We recommended annual dermatological examination * Assessment & Plan Note - Sharan Ayoub MD - 04/03/2025 2:31 PM EDT Associated Problem(s): Elevated LFTs Despite 3 biopsies in the last 3 years and extensive testing, the exact etiology remains unclear For now we will very slowly taper pred to 5 mg daily We ill increase mycophenolate to 500 am and 250 pm He will stay on same dose of tacrolimus We will check labs monthly We will see him in 3 months [facility] Work Phone: 1(378) 370-255907-03-2025 History of Present illness Narrative* Sharan Ayoub MD - 04/03/2025 10:00 AM EDT Subjective He has noted some right sided tenderness the past 2 days. He is otherwise at baseline. Labs have trended slightly down in the past month but remain elevated. He denies fluid overload or cognitive impairment Review of Systems Constitutional: Positive for fatigue. Negative for chills, fever and unexpected weight change. HENT: Negative for congestion and trouble swallowing. Respiratory: Negative for cough, shortness of breath and wheezing. Cardiovascular: Negative for chest pain. Gastrointestinal: Positive for abdominal pain. Negative for abdominal distention, blood in stool, constipation, diarrhea, nausea and vomiting. Genitourinary: Negative for difficulty urinating. Musculoskeletal: Negative for arthralgias and joint swelling. Skin: Negative for color change. Neurological: Negative for dizziness, speech difficulty, light-headedness and headaches. Psychiatric/Behavioral: Negative for confusion and sleep disturbance. Physical Exam Constitutional: General: He is awake. Appearance: Normal appearance. HENT: Head: Normocephalic and atraumatic. Nose: Nose normal. Mouth/Throat: Mouth: Mucous membranes are moist. Eyes: Pupils: Pupils are equal, round, and reactive to light. Neck: Thyroid: No thyroid mass. Trachea: Phonation normal. Cardiovascular: Rate and Rhythm: Normal rate and regular rhythm. Pulmonary: Effort: Pulmonary effort is normal. No respiratory distress. Breath sounds: Normal air entry. No decreased breath sounds, wheezing, rhonchi or rales. Abdominal: General: Bowel sounds are normal. There is no distension. Palpations: Abdomen is soft. Tenderness: There is no abdominal tenderness. Musculoskeletal: Cervical back: Neck supple. Right lower leg: No edema. Left lower leg: No edema. Skin: General: Skin is warm. Capillary Refill: Capillary refill takes less than 2 seconds. Neurological: General: No focal deficit present. Mental Status: He is alert and oriented to person, place, and time. Mental status is at baseline. Cranial Nerves: Cranial nerves 2-12 are intact. Motor: Motor function is intact. Psychiatric: Attention and Perception: Attention and perception normal. Mood and Affect: Mood normal. Speech: Speech normal. Behavior: Behavior normal. LABS: Lab Results Component Value Date ALBUMIN 3.5 12/09/2024 BILITOT 3.6 12/09/2024 BILIDIR 2.1 04/24/2024 ALKPHOS 344 12/09/2024 ALT 99 12/09/2024 AST 101 12/09/2024 PROT 6.7 12/09/2024 MUNA NEGATIVE 08/15/2017 HEPBSAG NONREACTIVE 08/15/2017 HEPCAB NON-REACTIVE 08/15/2017 INR 1.2 (H) 01/24/2024 FERRITIN 164 08/15/2017 No results found for: CECL652 , [id number] Lab Results Component Value Date NA 138 12/09/2024 CREATININE 1.16 12/09/2024 BILITOT 3.6 12/09/2024 INR 1.2 (H) 01/24/2024 No results found for: AFP === 01/09/25 === US LIVER WITH DOPPLER - Impression - 1. Unremarkable ultrasound of the liver including Doppler interrogation. 2. Trace amount of nonspecific perihepatic/abdominopelvic ascites. 3. Nonobstructive intrarenal calculi of the right kidney. I personally reviewed the images/study and I agree with the findings as stated by resident Willi Valles. This study was interpreted at [place], [place]. MACRO: None Signed by: Farooq Fleming 01/09/2025 9:08 PM Dictation workstation: [id number] === 04/04/16 === - Impression - 1. Heterogeneous early post contrast perfusion pattern and periportal edema can be seen in conditions of acute hepatitis. Otherwise unremarkable MRI of the abdomen. Specifically no focal liver lesions or vascular thrombosis. 2. No ascites or splenomegaly or collateral circuit. 3. Tiny simple renal cysts. I personally reviewed the image(s)/study and interpretation. I agree with the findings as stated. This study was performed and interpreted at [place], [place]. === 12/28/16 === CT ABDOMEN PELVIS W CONTRAST - Impression - No CT evidence of an acute intra-abdominal or pelvic process. Patient status post hepatic transplant. Elevated LFTs Despite 3 biopsies in the last 3 years and extensive testing, the exact etiology remains unclear For now we will very slowly taper pred to 5 mg daily We ill increase mycophenolate to 500 am and 250 pm He will stay on same dose of tacrolimus We will check labs monthly We will see him in 3 months 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) We recommended annual dermatological examination documented in this [facility] Work Phone: 1(554) 296-225307-03-2025 Instructions* Patient Instructions* Supa Lombardi Jr., RN - 04/03/2025 10:00 AM EDT Increase mycophenolate to 500 mg in am and 250 mg in pm Decrease Prednisone by 1 mg weekly until goal of 5 mg daily LABS: monthly RTC: 3 months documented in this [facility] Work Phone: 1(449) 431-372106-03-2025 Evaluation note* Diagnosis Onset Date Resolution Status Admit Date Hyperglycemia due to type 1 diabetes mellitus acute March 04, 2025 3:04pm Irritable bowel syndrome wit h diarrhea acute March 04, 2025 3 :04pm Left otitis media acute March 3:04pm Liver replaced by transplant acute March 04, 2025 3:04pm [facility] Work Phone: 1([phone]) 346-405706-03-2025 Evaluation note* Diagnosis Onset Date Resolution Status Admit Date Hyperglycemia due to type 1 diabetes mellitus acute March 04, 2025 3:04pm Irritable bowel syndrome wit h diarrhea acute March 04, 2025 3 :04pm Left otitis media acute March 3:04pm Liver replaced by transplant acute March 04, 2025 3:04pm Depression acute May 28, 2 025 9:26am Hyperglycemia due to type 1 diabetes mellitus acute May 28, 025 9:26am Irritable bowel syndrome wit h diarrhea acute May 28 9:26am Jaundice not of acute A ugust 2024 9:26am Liver replaced by transplant acute [employer] 2024 9:26am [facility] Work Phone: 1(737) 950-420304-10-2025 Evaluation + Plan note* Assessment & Plan Note - Sharan Ayoub MD - 01/09/2025 10:16 AM EDTAssociated Problem(s): 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) He was advised to seek improved mental health care and one on one counseling The patient will continue on his current immunosuppression regimen We will up amlodipine to 10 mg daily Labs will continue to be ordered every 6 months We recommended annual dermatological examination We will see the patient in follow up in 6 months [facility] Work Phone: 1(825) 968-477604-10-2025 Miscellaneous Notes* Assessment & Plan Note - Sharan Ayoub MD - 01/09/2025 10:16 AM EDTAssociated Problem(s): 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) He was advised to seek improved mental health care and one on one counseling The patient will continue on his current immunosuppression regimen We will up amlodipine to 10 mg daily Labs will continue to be ordered every 6 months We recommended annual dermatological examination We will see the patient in follow up in 6 months [facility] Work Phone: 1(844) 485-994104-10-2025 History of Present illness Narrative* Sharan Ayoub MD - 01/09/2025 10:00 AM EDT Subjective He is stressed and losing weight but mostly at baseline as are his labs. He denies fluid overload or cognitive impairment. He continues to be hypertensive. Review of Systems Constitutional: Positive for fatigue. Negative for chills, fever and unexpected weight change. HENT: Negative for congestion and trouble swallowing. Respiratory: Negative for cough, shortness of breath and wheezing. Cardiovascular: Negative for chest pain. Gastrointestinal: Negative for abdominal distention, abdominal pain, blood in stool, constipation, diarrhea, nausea and vomiting. Genitourinary: Negative for difficulty urinating. Musculoskeletal: Negative for arthralgias and joint swelling. Skin: Negative for color change. Neurological: Negative for dizziness, speech difficulty, light-headedness and headaches. Psychiatric/Behavioral: Negative for confusion and sleep disturbance. Physical Exam Constitutional: General: He is awake. Appearance: Normal appearance. HENT: Head: Normocephalic and atraumatic. Nose: Nose normal. Mouth/Throat: Mouth: Mucous membranes are moist. Eyes: Pupils: Pupils are equal, round, and reactive to light. Neck: Thyroid: No thyroid mass. Trachea: Phonation normal. Cardiovascular: Rate and Rhythm: Normal rate and regular rhythm. Pulmonary: Effort: Pulmonary effort is normal. No respiratory distress. Breath sounds: Normal air entry. No decreased breath sounds, wheezing, rhonchi or rales. Abdominal: General: Bowel sounds are normal. There is no distension. Palpations: Abdomen is soft. Tenderness: There is no abdominal tenderness. Musculoskeletal: Cervical back: Neck supple. Right lower leg: No edema. Left lower leg: No edema. Skin: General: Skin is warm. Capillary Refill: Capillary refill takes less than 2 seconds. Neurological: General: No focal deficit present. Mental Status: He is alert and oriented to person, place, and time. Mental status is at baseline. Cranial Nerves: Cranial nerves 2-12 are intact. Motor: Motor function is intact. Psychiatric: Attention and Perception: Attention and perception normal. Mood and Affect: Mood normal. Speech: Speech normal. Behavior: Behavior normal. LABS: Lab Results Component Value Date ALBUMIN 3.5 12/09/2024 BILITOT 3.6 12/09/2024 BILIDIR 2.1 04/24/2024 ALKPHOS 344 12/09/2024 ALT 99 12/09/2024 AST 101 12/09/2024 PROT 6.7 12/09/2024 MUNA NEGATIVE 08/15/2017 HEPBSAG NONREACTIVE 08/15/2017 HEPCAB NON-REACTIVE 08/15/2017 INR 1.2 (H) 01/24/2024 FERRITIN 164 08/15/2017 No results found for: [id number] , [id number] Lab Results Component Value Date NA 138 12/09/2024 CREATININE 1.16 12/09/2024 BILITOT 3.6 12/09/2024 INR 1.2 (H) 01/24/2024 No results found for: AFP Lab Results Component Value Date ALBUMIN 3.5 12/09/2024 BILITOT 3.6 12/09/2024 BILIDIR 2.1 04/24/2024 ALKPHOS 344 12/09/2024 ALT 99 12/09/2024 AST 101 12/09/2024 PROT 6.7 12/09/2024 Lab Results Component Value Date WBC 10.6 12/09/2024 HGB 14.2 12/09/2024 HCT 40.5 12/09/2024 MCV 93 09/09/2024 PLT 156 12/09/2024 Lab Results Component Value Date GLUCOSE 83 12/09/2024 CALCIUM 9.4 11/05/2024 NA 138 12/09/2024 K 3.2 12/09/2024 CO2 33 12/09/2024 CL 98 12/09/2024 BUN 12 12/09/2024 CREATININE 1.16 12/09/2024 Lab Results Component Value Date INR 1.2 (H) 01/24/2024 === 01/18/24 === US LIVER WITH DOPPLER - Impression - 1. Trace amount of ascites. 2. Essentially normal Doppler evaluation. 3. Non-obstructing stones right kidney MACRO: None Signed by: Татьяна Eid 01/23/2024 12:57 PM Dictation workstation: [id number] === 04/04/16 === - Impression - 1. Heterogeneous early post contrast perfusion pattern and periportal edema can be seen in conditions of acute hepatitis. Otherwise unremarkable MRI of the abdomen. Specifically no focal liver lesions or vascular thrombosis. 2. No ascites or splenomegaly or collateral circuit. 3. Tiny simple renal cysts. I personally reviewed the image(s)/study and interpretation. I agree with the findings as stated. This study was performed and interpreted at [place], [place]. === 12/28/16 === CT ABDOMEN PELVIS W CONTRAST - Impression - No CT evidence of an acute intra-abdominal or pelvic process. Patient status post hepatic transplant. 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) He was advised to seek improved mental health care and one on one counseling The patient will continue on his current immunosuppression regimen We will up amlodipine to 10 mg daily Labs will continue to be ordered every 6 months We recommended annual dermatological examination We will see the patient in follow up in 6 months [facility] Work Phone: 1(830) 549-218804-10-2025 Instructions* Patient Instructions* Nae Campos RN - 01/09/2025 10:00 AM EDT Increase amlodipine to 10mg daily Continue current medications. Labs monthly Follow up in 3 months [facility] Work Phone: 1(729) 182-908504-01-2025 History of Present illness Narrative* Zhane Nathan MD - 12/31/2024 3:35 PM EDT Images from the original note were not included. Wart follow up: Location: both hands Symptoms: painful Current treatment: cryotherapy Treatments tried in the past: OTC wart remover Treatment number: 3 Status:improved All pertinent medical history, medications, and allergies were reviewed. General Exam: alert, oriented to person, place, and time, normal affect, well appearing Unaccompanied A focused exam completed based on patient reported problems, see below: 1. Common wart (37) Left 2nd Finger Metacarpophalangeal Joint (2), Left 3rd Finger Metacarpophalangeal Joint, Left 4th Finger Distal Interphalangeal Joint, Left 4th Finger Metacarpophalangeal Joint, Left 5th Finger Metacarpophalangeal Joint (2), Left Dorsal Hand (8), Left Proximal Thumb, Left Thumb Interphalangeal Join t, Left Thumb Metacarpophalangeal Joint, Left Wrist - Anterior (5), Left Wrist - Posterior (12), Right 3rd Finger Metacarpophalangeal Joint (2) Erythematous verrucous papule(s). Patient and/or family member was counseled regarding warts. Treatment options were discussed including cryotherapy, forest antigen injections, and topical Cantharidin. It was explained that it typically requires multiple treatments before the wart(s) completely resolve. The importance of followingup every 3-4 weeks was emphasized. [facility] between cryo treatments. Patient elected for cryotherapy today, see procedure note. Diagnosis: Verruca Indication: Inflamed Consent: Verbal consent was obtained and risks were discussed, including, but not limited to risks of scarring, darker or mold filler and drainer pigmentary changes, recurrence, incomplete removal and infection. Method: Liquid nitrogen was used to treat the lesion(s) with two 5-10 second freeze-thaw cycles Number of lesions treated: 37 Post-procedure instructions: Instructions were given orally and in writing. The office will be contacted if the lesion fails to resolve despite treatment, or if a side effect develops such as abnormal crusting, scabbing, redness or tenderness Cryotherapy, skin lesion - Left 2nd Finger Metacarpophalangeal Joint (2), Left 3rd Finger Metacarpophalangeal Joint, Left 4th Finger Distal Interphalangeal Joint, Left 4th Finger Metacarpophalangeal Joint, Left 5th Finger Metacarpophalangeal Joint (2), Left Dorsal Hand (8), Left Proximal Thumb, Left Thumb Interphalangeal Joint, Left Thumb Metacarpophalangeal Joint, Left Wrist - Anterior (5), LeftWrist - Posterior (12), Right 3rd Finger Metacarpophalangeal Joint (2) Next Visit: 4 weeks documented in this encounterSS[facility] [id number] Evaluation note* Diagnosis Onset Date Resolution Status Admit Date Hypokalemia acute December 11, 025 9:49am Liver replaced by transplant acute December 11, 2024 9:49am Sinusitis, acute maxillary acute December 11, 2024 9:49am [facility] Work Phone: 1(390) 146-622503-12-2025 Evaluation note* Diagnosis Onset Date Resolution Status Admit Date Hypokalemia acute December 11, 025 9:49am Liver replaced by transplant acute December 11, 2024 9:49am Sinusitis, acute maxillary acute December 11, 2024 9:49am Hyperglycemia due to type 1 diabetes mellitus acute March 04, 2025 3:04pm Irritable bowel syndrome wit h diarrhea acute March 04, 2025 3 :04pm Left otitis media acute March 3:04pm Liver replaced by transplant acute March 04, 2025 3:04pm [facility] Work Phone: 1(662) 648-417303-04-2025 History of Present illness Narrative* Zhane Nathan MD - 12/03/2024 3:50 PM EST Images from the original note were not included. Follow up Diagnosis: Warts Location: right hand, left hand Symptoms: red, blistered after last treatment Status: improving Procedure performed: Cryotherapy Date of procedure: 11/12/2024 All pertinent medical history, medications, and allergies were reviewed. General Exam: alert, oriented to person, place, and time, normal affect, well appearing Unaccompanied A focused exam completed based on patient reported problems, see below: 1. Common wart (20) Left Dorsal Hand (5), Left Dorsal Mid 2nd Finger, Left Forearm - Anterior (8), Left Proximal Thumb (2), Left Wrist - Anterior (3), Left Wrist - Posterior Erythematous verrucous papule(s). Improving since last visit. Patient and/or family member was counseled regarding warts. Treatment options were discussed including cryotherapy, forest antigen injections, and topical Cantharidin. It was explained that it typically requires multiple treatments before the wart(s) completely resolve. The importance of followingup every 3-4 weeks was emphasized. Encouraged OTC wart removers in between appointments to hasten resolution. Patient elected for cryotherapy today, see procedure note. Diagnosis: Verruca Indication: Inflamed Consent: Verbal consent was obtained and risks were discussed, including, but not limited to risks of scarring, darker or mold filler and drainer pigmentary changes, recurrence, incomplete removal and infection. Method: Liquid nitrogen was used to treat the lesion(s) with two 5-10 second freeze-thaw cycles Number of lesions treated: 20 Post-procedure instructions: Instructions were given orally and in writing. The office will be contacted if the lesion fails to resolve despite treatment, or if a side effect develops such as abnormal crusting, scabbing, redness or tenderness Cryotherapy, skin lesion - Left Dorsal Hand (5), Left Dorsal Mid 2nd Finger, Left Forearm - Anterior (8), Left Proximal Thumb (2), Left Wrist - Anterior (3), Left Wrist - Posterior 2. Other specified erythematous conditions Left Dorsal Hand Next Visit: 4 weeks documented in this encounterSSM Health [id number] History of Present illness Narrative* Zhaen Nathan MD - 11/12/2024 3:30 PM EST Images from the original note were not included. Warts Location: right hand, left hand Duration: years Symptoms: increasing in size, spreading, itching; patient feels it's a reaction to his anti-rejection meds post liver transplant. Current treatment: none Treatments tried in the past: steroid cream All pertinent medical history, medications, and allergies were reviewed. General Exam: alert, oriented to person, place, and time, normal affect, well appearing Unaccompanied A focused exam completed based on patient reported problems, see below: 1. Common wart (40) Left 2nd Finger Metacarpophalangeal Joint, Left 4th Finger Metacarpophalangeal Joint, Left Dorsal Hand (17), Left Forearm - Posterior (7), Left Proximal 3rd Finger, Left Proximal Thumb (2), Left Thumb Metacarpophalangeal Joint, Right 2nd Finger Metacarpophalangeal Joint, Right 3rd Finger Metacarpophalangeal Joint (3), Right 3rd Finger Proximal Nail Fold, Right 4th Finger Proximal Nail Fold, [id number] Finger Proximal Nail Fold, Right Dorsal Mid 2nd Finger, Right Proximal 4th Finger, Right Thumb Interphalangeal Joint Erythematous verrucous papule(s). Patient and/or family member was counseled regarding warts. Treatment options were discussed including cryotherapy, forest antigen injections, and topical Cantharidin. It was explained that it typically requires multiple treatments before the wart(s) completely resolve. The importance of followingup every 3-4 weeks was emphasized. Encouraged OTC wart removers in between appointments to hasten resolution. Patient elected for cryotherapy today, see procedure note. Diagnosis: Verruca Indication: Inflamed Consent: Verbal consent was obtained and risks were discussed, including, but not limited to risks of scarring, darker or mold filler and drainer pigmentary changes, recurrence, incomplete removal and infection. Method: Liquid nitrogen was used to treat the lesion(s) with two 5-10 second freeze-thaw cycles Number of lesions treated: 40 Post-procedure instructions: Instructions were given orally and in writing. The office will be contacted if the lesion fails to resolve despite treatment, or if a side effect develops such as abnormal crusting, scabbing, redness or tenderness Cryotherapy, skin lesion - Left 2nd Finger Metacarpophalangeal Joint, Left 4th Finger Metacarpophalangeal Joint, Left Dorsal Hand (17), Left Forearm - Posterior (7), Left Proximal 3rd Finger, Left Proximal Thumb (2), Left Thumb Metacarpophalangeal Joint, Right 2nd Finger Metacarpophalangeal Joint, Right 3rd Finger Metacarpophalangeal Joint (3), Right 3rd Finger Proximal Nail Fold, Right 4th Finger Proximal Nail Fold, Right 5th Finger Proximal Nail Fold, Right Dorsal Mid 2nd Finger, Right Proximal 4th Finger, Right Thumb Interphalangeal Joint 2. Other specified erythematous conditions Next Visit: 1 month documented in this encounterSSM Health [id number] Hospital Discharge instructions Follow Up Care 10/24/2024 10:18:21 With:David CHOPRA, LILLIE Oswald, URO Address: When: Unknown [facility] 01-14-2025 Evaluation + Plan note* Assessment & Plan Note - Sharan Ayoub MD - 10/15/2024 1:41 PM ESTAssociated Problem(s): 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) We plan to taper his pred slowly by 1 mg a week and watch liver enzymes slowly Labs will continue to be ordered every month We recommended annual dermatological examination We will see the patient in follow up in 6 months [facility] Work Phone: 1(194) 996-132801-14-2025 Miscellaneous Notes* Assessment & Plan Note - Sharan Ayoub MD - 10/15/2024 1:41 PM ESTAssociated Problem(s): 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) We plan to taper his pred slowly by 1 mg a week and watch liver enzymes slowly Labs will continue to be ordered every month We recommended annual dermatological examination We will see the patient in follow up in 6 months documented in this [facility] Work Phone: 1(766) 759-970601-09-2025 Evaluation note* Diagnosis Onset Date Resolution Status Admit Date Hyperglycemia due to type 1 diabetes mellitus acute October 10, 2 025 3:01pm Hypertension acute October 10, 2024 3:01pm Kidney stones acute October 3:01pm Liver replaced by transplant acute October 10, 2024 3:01pm [facility] Work Phone: 1([phone]) 203-518301-09-2025 Evaluation note* Diagnosis Onset Date Resolution Status Admit Date Hyperglycemia due to type 1 diabetes mellitus acute October 10, 2 025 3:01pm Hypertension acute October 10, 2024 3:01pm Kidney stones acute October 3:01pm Liver replaced by transplant acute October 10, 2024 3:01pm Depression acute October 31, 2024 2:29pm [facility] Work Phone: 1([phone]) 571-771701-09-2025 History of Present illness Narrative* Sharan Ayoub MD - 10/10/2024 9:15 AM EST Subjective He is mostly unchanged and labs are slightly improved. He denies fluid overload or cognitive impairment. He takes 15 mg pred and tacrolimus 1 bid. Review of Systems Constitutional: Negative for chills, fever and unexpected weight change. HENT: Negative for congestion and trouble swallowing. Respiratory: Negative for cough, shortness of breath and wheezing. Cardiovascular: Negative for chest pain. Gastrointestinal: Negative for abdominal distention, abdominal pain, constipation, diarrhea, nauseaand vomiting. Genitourinary: Negative for difficulty urinating. Musculoskeletal: Negative for arthralgias and joint swelling. Skin: Negative for color change. Neurological: Negative for dizziness, speech difficulty, light-headedness and headaches. Psychiatric/Behavioral: Negative for confusion and sleep disturbance. Physical Exam Constitutional: General: He is awake. Appearance: Normal appearance. HENT: Head: Normocephalic and atraumatic. Nose: Nose normal. Mouth/Throat: Mouth: Mucous membranes are moist. Eyes: Pupils: Pupils are equal, round, and reactive to light. Neck: Thyroid: No thyroid mass. Trachea: Phonation normal. Cardiovascular: Rate and Rhythm: Normal rate and regular rhythm. Heart sounds: Normal heart sounds. No murmur heard. No gallop. Pulmonary: Effort: Pulmonary effort is normal. No respiratory distress. Breath sounds: Normal air entry. No decreased breath sounds, wheezing, rhonchi or rales. Abdominal: General: Bowel sounds are normal. There is no distension. Palpations: Abdomen is soft. Tenderness: There is no abdominal tenderness. Musculoskeletal: Cervical back: Neck supple. Right lower leg: No edema. Left lower leg: No edema. Skin: General: Skin is warm. Capillary Refill: Capillary refill takes less than 2 seconds. Neurological: General: No focal deficit present. Mental Status: He is alert and oriented to person, place, and time. Mental status is at baseline. Cranial Nerves: Cranial nerves 2-12 are intact. Motor: Motor function is intact. Psychiatric: Attention and Perception: Attention and perception normal. Mood and Affect: Mood normal. Speech: Speech normal. Behavior: Behavior normal. LABS: Lab Results Component Value Date ALBUMIN 3.5 10/10/2024 BILITOT 3.9 10/10/2024 BILIDIR 2.1 04/24/2024 ALKPHOS 342 10/10/2024 ALT 89 10/10/2024 AST 72 10/10/2024 PROT 6.8 10/10/2024 MUNA NEGATIVE 08/15/2017 HEPBSAG NONREACTIVE 08/15/2017 HEPCAB NON-REACTIVE 08/15/2017 INR 1.2 (H) 01/24/2024 FERRITIN 164 08/15/2017 No results found for: [id number] , [id number] Lab Results Component Value Date NA 140 10/10/2024 CREATININE 1.13 10/10/2024 BILITOT 3.9 10/10/2024 INR 1.2 (H) 01/24/2024 No results found for: AFP Lab Results Component Value Date ALBUMIN 3.5 10/10/2024 BILITOT 3.9 10/10/2024 BILIDIR 2.1 04/24/2024 ALKPHOS 342 10/10/2024 ALT 89 10/10/2024 AST 72 10/10/2024 PROT 6.8 10/10/2024 Lab Results Component Value Date WBC 13.1 10/10/2024 HGB 14.6 10/10/2024 HCT 43.2 10/10/2024 MCV 93 09/09/2024 PLT 217 10/10/2024 Lab Results Component Value Date GLUCOSE 184 10/10/2024 CALCIUM 9.5 10/10/2024 NA 140 10/10/2024 K 3.2 10/10/2024 CO2 31 10/10/2024 CL 100 10/10/2024 BUN 21 10/10/2024 CREATININE 1.13 10/10/2024 Lab Results Component Value Date INR 1.2 (H) 01/24/2024 === 01/18/24 === US LIVER WITH DOPPLER - Impression - 1. Trace amount of ascites. 2. Essentially normal Doppler evaluation. 3. Non-obstructing stones right kidney MACRO: None Signed by: Татьяна Eid 01/23/2024 12:57 PM Dictation workstation: [id number] 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) We plan to taper his pred slowly by 1 mg a week and watch liver enzymes slowly Labs will continue to be ordered every month We recommended annual dermatological examination We will see the patient in follow up in 6 months documented in this [facility] Work Phone: 1([phone]) 320-336701-09-2025 Instructions* Patient Instructions* Nae Campos RN - 10/10/2024 9:15 AM EST Have labs done and call about changing prednisone. Check blood pressure at home. Follow up in 3 months [facility] Work Phone: 1(641) 240-375712-20-2024 Telephone encounter Note* Telephone Encounter - Perla Caballeroyesy - 09/20/2024 1:32 PM EST LVM confirming appointment reminder [facility] [id number] Miscellaneous Notes* Telephone Encounter - Perla Angie - 09/20/2024 1:32 PM EST LVM confirming appointment reminder documented in this encounterSSM Health [id number] Evaluation note* Diagnosis Onset Date Resolution Status Admit Date Dehydration acute July 19, 2024 9:54am Hyperglycemia due to type 1 diabetes mellitus acute July 19, 2024 9:54am [facility] Work Phone: 1(251) 374-589310-18-2024 Evaluation note* Diagnosis Onset Date Resolution Status Admit Date Dehydration acute July 19, 2024 9:54am Hyperglycemia due to type 1 diabetes mellitus acute July 19, 2024 9:54am Hyperglycemia due to type 1 diabetes mellitus acute October 10, 2 025 3:01pm Hypertension acute October 10, 2024 3:01pm Kidney stones acute October 3:01pm Liver replaced by transplant acute October 10, 2024 3:01pm [facility] Work Phone: 1([phone]) 923-598108-26-2024 History of Present illness Narrative* Zhane Nathan MD - 05/27/2024 3:35 PM EDT Follow up Diagnosis: Herpes zoster Location: Left inguinal area Last visit: 05/09/2024 Symptoms: scabbed over tender, pants rub on it Status: Better Treatments tried and failed: Antibiotics from ER Current treatment: Valtrex 1 gm TID x 10 days All pertinent medical history, medications, and allergies were reviewed. General Exam: alert , oriented to person, place, and time , normal affect Unaccompanied A focused exam completed based on patient reported problems, see below: 1. Herpes zoster without complication Left Inguinal Area Hemorrhagic crusting on an erythematous base Reassurance given, no longer contagious. Instructed pt to notify the office for any significant changes. Related Medications valACYclovir (Valtrex) 1 g tablet Take 1 tablet, by mouth, three times a day x 10 days 2. Post herpetic neuralgia (CMS/HCC) Left Lower Back Patient reports localized pain after recent zoster infection Counseling and reassurance given. Will refer to pain management for further evaluation and management, patient also reports history of sciatica and would like this issue addressed as well. Related Procedures Ambulatory referral to Internal Medicine Next Visit: prn for any new/changing lesions documented in this encounterSSM Health [id number] Evaluation note* Diagnosis Onset Date Resolution Status Admit Date Depression acute May 23, 2 024 2:48pm Shingles acute May 23, 2 024 2:48pm Dehydration acute July 19, 2024 9:54am Hyperglycemia due to type 1 diabetes mellitus acute July 19, 2024 9:54am [facility] Work Phone: 1(691) 125-344707-19-2024 Evaluation + Plan note* Assessment & Plan Note - Sharan Ayoub MD - 04/19/2024 9:18 AM EDTAssociated Problem(s): 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) He needs a colonoscopy for which we [...] patient in follow up in 3 months [facility] Work Phone: 1(888) 218-408507-19-2024 Miscellaneous Notes* Assessment & Plan Note - Sharan Ayoub MD - 04/19/2024 9:18 AM EDTAssociated Problem(s): 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) He needs a colonoscopy for which we [...] patient in follow up in 3 months documented in this [facility] Work Phone: 1(683) 887-862407-18-2024 History of Present illness Narrative* Sharan Ayoub MD - 04/18/2024 9:30 AM EDT Subjective Energy level is not great but he is otherwise at baseline. He noted intermittent leg swelling on amlodipine. Labs have been essentially the same Review of Systems Constitutional: Positive for fatigue. Negative for chills, fever and unexpected weight change. HENT: Negative for congestion and trouble swallowing. Respiratory: Negative for cough, shortness of breath and wheezing. Cardiovascular: Negative for chest pain. Gastrointestinal: Negative for abdominal distention, abdominal pain, constipation, diarrhea, nauseaand vomiting. Genitourinary: Negative for difficulty urinating. Musculoskeletal: Negative for arthralgias and joint swelling. Skin: Negative for color change. Neurological: Negative for dizziness, speech difficulty, light-headedness and headaches. Psychiatric/Behavioral: Negative for confusion and sleep disturbance. Physical Exam Constitutional: General: He is awake. Appearance: Normal appearance. HENT: Head: Normocephalic and atraumatic. Nose: Nose normal. Mouth/Throat: Mouth: Mucous membranes are moist. Eyes: Pupils: Pupils are equal, round, and reactive to light. Neck: Thyroid: No thyroid mass. Trachea: Phonation normal. Cardiovascular: Rate and Rhythm: Normal rate and regular rhythm. Heart sounds: Normal heart sounds. No murmur heard. No gallop. Pulmonary: Effort: Pulmonary effort is normal. No respiratory distress. Breath sounds: Normal air entry. No decreased breath sounds, wheezing, rhonchi or rales. Abdominal: General: Bowel sounds are normal. There is no distension. Palpations: Abdomen is soft. Tenderness: There is no abdominal tenderness. Musculoskeletal: Cervical back: Neck supple. Right lower leg: No edema. Left lower leg: No edema. Skin: General: Skin is warm. Capillary Refill: Capillary refill takes less than 2 seconds. Neurological: General: No focal deficit present. Mental Status: He is alert and oriented to person, place, and time. Mental status is at baseline. Cranial Nerves: Cranial nerves 2-12 are intact. Motor: Motor function is intact. Psychiatric: Attention and Perception: Attention and perception normal. Mood and Affect: Mood normal. Speech: Speech normal. Behavior: Behavior normal. LABS: Lab Results Component Value Date ALBUMIN 2.8 04/09/2024 BILITOT 3.1 04/09/2024 BILIDIR 1.1 (H) 01/24/2024 ALKPHOS 167 04/09/2024 ALT 95 04/09/2024 AST 70 04/09/2024 PROT 5.8 04/09/2024 Lab Results Component Value Date WBC 9.9 04/09/2024 HGB 13.5 04/09/2024 HCT 40.1 04/09/2024 MCV 93 01/24/2024 PLT 146 04/09/2024 Lab Results Component Value Date GLUCOSE 189 04/09/2024 CALCIUM 8.5 04/09/2024 NA 142 04/09/2024 K 3.8 04/09/2024 CO2 33 04/09/2024 CL 105 04/09/2024 BUN 21 04/09/2024 CREATININE 1.06 04/09/2024 Lab Results Component Value Date INR 1.2 (H) 01/24/2024 === 01/18/24 === US LIVER WITH DOPPLER - Impression - 1. Trace amount of ascites. 2. Essentially normal Doppler evaluation. 3. Non-obstructing stones right kidney MACRO: None Signed by: Татьяна Eid 01/23/2024 12:57 PM Dictation workstation: [id number] 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) He needs a colonoscopy for which we [...] patient in follow up in 3 months [facility] Work Phone: 1(870) 868-350907-18-2024 Instructions* Patient Instructions* Nae Campos RN - 04/18/2024 9:30 AM EDT Increase spironolactone to 100mg daily Watch blood pressure at home. Schedule colonoscopy Labs next week and then once monthly. Follow up in 4 months 6. Watch salt in your diet. documented in [facility] encounterUniversity [facility] Work Phone: 1(717) 910-485405-02-2024 Evaluation + Plan note* Assessment & Plan Note - Sharan Ayoub MD - 02/01/2024 10:56 AM EDTAssociated Problem(s): Acute rejection of liver transplant (Multi) Why he developed ACR or chronic rejection is somewhat unclear The plan is to taper his prednisone by 10 mg every week to park it at 10 mg daily We will monitor liver function monthly We will see him every 2 months [facility] Work Phone: 1(902) 763-817905-02-2024 Miscellaneous Notes* Assessment & Plan Note - Sharan Ayoub MD - 02/01/2024 10:56 AM EDTAssociated Problem(s): Acute rejection of liver transplant (Multi) Why he developed ACR or chronic rejection is somewhat unclear The plan is to taper his prednisone by 10 mg every week to park it at 10 mg daily We will monitor liver function monthly We will see him every 2 months documented in this [facility] Work Phone: 1(266) 537-125105-02-2024 History of Present illness Narrative* Sharan Ayoub MD - 02/01/2024 9:30 AM EDT Subjective He was directly admitted based on biopsy findings which suggested advanced fibrosis, features suggestive of acute and maybe chronic rejection. High dose pulse steroids did little to improve his liverenzyme elevation. Repeat biopsy suggests some improvement in [...] distention, abdominal pain, anal bleeding, blood in stool,constipation, diarrhea, nausea, rectal pain and vomiting. Skin: [...] HEPBSAG NONREACTIVE 08/15/2017 No results found for: [id number] , JFLU540 === 01/18/24 === US LIVER WITH DOPPLER - Impression - 1. Trace amount of ascites. 2. Essentially normal Doppler evaluation. 3. Non-obstructing stones right kidney MACRO: None Signed by: Татьяна Eid 01/23/2024 12:57 PM Dictation workstation: [id number] Acute rejection of liver transplant (Multi) Why he developed ACR or chronic rejection is somewhat unclear The plan is to taper his prednisone by 10 mg every week to park it at 10 mg daily We will monitor liver function monthly We will see him every 2 months documented in this [facility] Work Phone: 1(901) 788-468004-24-2024 Nurse Note* Amirah Win RN - 01/24/2024 6:18 PM EDT 01/24/20241817 Discharge Note Patient discharged home with no needs. Discharge instructions discussed with patient, verbalized understanding. Aware of follow up appointments needed. Aware of changes to medications at discharge. Patient requested NPH insulin to be filled here at [facility] since it is late in day and may not be able to picking crew supervisor in time for AM dose. NPH filled at [facility] and picked up for patient and delivered to patient prior to discharge. Aware of other medications sent to patient's home preferred pharmacy. Peripheral IV discontinued. Belongings gathered per patient and mom. Refused transport and ambulated off unit at 1823. ---- Amirah Win RN [facility]04-24-2024 Nurse Note* Amirah Win RN - 01/24/2024 6:18 PM EDT 01/24/20241817 Discharge Note Patient discharged home with no needs. Discharge instructions discussed with patient, verbalized understanding. Aware of follow up appointments needed. Aware of changes to medications at discharge. Patient requested NPH insulin to be filled here at [facility] since it is late in day and may not be able to picking crew supervisor in time for AM dose. NPH filled at [facility] and picked up for patient and delivered to patient prior to discharge. Aware of other medications sent to patient's home preferred pharmacy. Peripheral IV discontinued. Belongings gathered per patient and mom. Refused transport and ambulated off unit at 1823. ---- Amirah Win RN documented in this [facility] Work Phone: 1(155) 787-163004-24-2024 History of Present illness Narrative* Fide Hwang MD - 01/24/2024 2:07 PM EDT Luly Giron is a 28 y.o. male on day 6 of admission presenting with Acute rejection of livertransplant (Multi). Subjective POC FS reviewed. I have [...] q24h Mya Dawson MD 10 Units at 01/23/24 2036 insulin NPH (Isophane) (HumuLIN N,NovoLIN N) injection [...] Diabetes History Type 1DM :diagnosed in 04/2016 Head Of Advertising : Yaneli Myles (last visit with her in 2018) Now sees his PCP at [facility] Home regimen - medtronic 670 G pump [...] the stone and critical portions of the historyand physical exam or was physically present for stone and critical portions performed by the resident/fellow. I reviewed the resident/fellow's documentation and discussed the patient with the resident/f charisma. I agree with the resident/fellow's medical decision [...] I think he would greatly benefit from establishingwith an manager steel outpatient. Kamala Lloyd DO * Kvng Cruz MD - 01/23/2024 12:41 PM EDT Luly Giron is a 28 y.o. male on day 5 of admission presenting with Acute rejection of livertransplant (Multi). Subjective Today, pt. Underwent IR guided [...] Diabetes History Type 1DM :diagnosed in 04/2016 Head Of Advertising : Yaneli Myles (last visit with her in 2018) Now sees his PCP at [facility] Home regimen - medtronic 670G pump Accuchecks/ [...] follow up- [facility] Patient discussed with attending - Dr. Nancy Hwang MD I saw and evaluated the patient. I personally obtained the stone and critical portions of the historyand physical exam or was physically present for stone and critical portions performed by the resident/fellow. I reviewed the resident/fellow's documentation and discussed the patient with the resident/f charisma. I agree with the resident/fellow's medical decision making as documented in the note. Kvng Cruz MD * Mya Dawson MD - 01/23/2024 7:13 AM EDT Luly Giron is a 28 y.o. male on day 5 of admission presenting with Acute rejection of livertransplant (Multi). Subjective NAEON. Had some R shoulder pain overnight, was ordered lidocaine patch but fell asleep prior to administration. Also described new sensation of fullness in his RUQ, almost more aware of his liver anddescribed it feeling bigger. Both of these symptoms [...] from last 7 days Lab Units 01/22/24 0701/21/24 11301/20/24100601/19/2472601/18/242121 WBC AUTO x10*3/uL 7.5 20.4* 24.3* 2.6* 5.2 HEMOGLOBIN g/dL 13.4* 14.2 13.5 13.6 11.5* HEMATOCRIT % 42.1 42.6 40.3* 41.4 34.7* PLATELETS AUTO x10*3/uL 134* 223 194 123* 109* Results from last 7 days Lab Units 01/22/24 0701/21/24113801/20/24100601/19/2472601/18/242121 SODIUM mmol/L 138 135* 134* 136 139 [...] from last 7 days Lab Units 01/22/24 0701/21/24113801/20/24100601/19/2472601/18/242121 ALK PHOS U/L 195* 227* 251* 271* 233* BILIRUBIN TOTAL mg/dL 1.7* 2.0* 1.9* 2.3* 2.0* BILIRUBIN DIRECT mg/dL 0.9* 1.0* 0.9* 1.2* -- PROTEIN TOTAL g/dL 6.7 7.3 7.2 7.0 6.5 ALT U/L 96* 95* 78* 83* 78* AST U/L 87* 88* 68* 84* 90* Results from last 7 days Lab Units 01/21/24 1139 01/20/24 1007 01/19/24 0727 01/18/24 2122 APTT seconds -- -- 30 30 INR [...] 242, ALT 81, AST 93, Tbili 2.7 (/). Underwent biopsy 01/16 c/w late ACR with [...] code (confirmed on admission) NOK: Candis (mother) [phone] Mya Dawson MD Internal Medicine, PGY-1 Associated [...] sure that there is no specific etiology forthe fullness in the right upper quadrant and the shoulder pain. It is possible that he could have had some bleeding from the previous biopsy. This could also be some degree of hepatomegaly from glycogen in the liver due to the hyperglycemia. Olivia Castaneda MD, FAASLD, [facility] Utility Bill Collection Clerk, Hepatology Senior Attending Physician [facility] window trimmer apprentice Division of Gastroenterology and Liver Disease [facility] [address] [place], [place] [phone] * Fide Hwang MD - 01/22/2024 2:09 PM EDT Luly Giron is a 28 y.o. male on day 4 of admission presenting with Acute rejection of livertransplant (Multi). Subjective Pt. Seen on bed side. [...] Monday Mya Dawson MD 125 mg at 01/21/242139 mycophenolate (Cellcept) capsule 250 mg 250 mg [...] Diabetes History Type 1DM :diagnosed in 04/2016 Head Of Advertising : Yaneli Myles (last visit with her in 2019) Now sees his PCP at [facility] Home regimen - medtronic 670G pump Accuchecks/ [...] follow up- [facility] Patient discussed with attending - Dr. Nancy Hwang MD Associated attestation - Kvng Cruz MD - 01/22/2024 4:08 PM EDT I saw and evaluated the patient. I personally obtained the stone and critical portions of the historyand physical exam or was physically present for stone and critical portions performed by the resident/fellow. I reviewed the resident/fellow's documentation and discussed the patient with the resident/deisy zafar. I agree with the resident/fellow's medical decision making as documented in the note. * Kapil العلي RN - 01/22/2024 1:12 PM EDT Transitional Care Coordination Progress Note: Patient discussed during interdisciplinary rounds. Team members present: CORAL CHOPRA Plan per Medical/Surgical team: Plan for liver biopsy tomorrow. Payer: Generic Commercial Status: Inpatient Discharge disposition: Home Potential Barriers: none ADOD: 01/22 versus 01/23 administrative assistant coordinator will continue to follow for discharge planning needs. Kapil العلي RN Transitional Coding Quality Analyst/[facility] [id number] * Mya Dawson MD - 01/22/2024 7:02 AM EDT Luly Giron is a 28 y.o. male on day 4 of admission presenting with Acute rejection of livertransplant (Multi). Subjective NAEON. Had some RUQ abdominal [...] from last 7 days Lab Units 01/21/24113801/20/24100601/19/2472601/18/242121 APTT seconds -- -- 30 30 INR [...] will hold lovenox and make NPO at [place] [] PO PPI [] Zofran prn [] [...] E: PRN N: diabetic diet, NPO at RI GI: PO pantoprazole DVT ppx: Lovenox, held Code status: Full code (confirmed on admission) NOK: Candis (mother) [phone] Associated attestation - Olivia Castaneda MD - [...] oral steroids tomorrow. Olivia Castaneda MD, FAASLD, [facility] Utility Bill Collection Clerk, Hepatology Senior Attending Physician Digestive [facility] window trimmer apprentice Division of Gastroenterology and Liver Disease [facility] [address] [place] [phone] * Blaine Linares MD - 01/21/2024 1:19 PM EDT Luly Giron is a 28 y.o. male on day 3 of admission presenting with Acute rejection of livertransplant (Multi). Subjective NAEON. Feels well today Medications [...] code (confirmed on admission) NOK: Candis (mother) [phone] Associated attestation - Olivia Castaneda MD - [...] I did communicate with his primary clinic events manager who wanted a repeat liver biopsy within the next couple of days. He is concerned as to make sure that the rejection has improved with the steroids and to confirm whether he really has stage 3 fibrosis or not. We will go ahead and arrange the biopsy. Olivia Castaneda MD, FAASLD, [facility] Utility Bill Collection Clerk, Hepatology Senior Attending Physician [facility] window trimmer apprentice Division of Gastroenterology and Liver Disease [facility] [address] [place] [phone] * Monserrat Estrada MD - 01/20/2024 8:39 AM EDT Luly Giron is a 28 y.o. male on day 2 of admission presenting with Acute rejection of livertransplant (Multi). Subjective Pt ate breakfast and lunch [...] 84 (H) 01/19/2024 GLUCOSE 262 (H) 01/19/2024 TAK17FP 0.09 (H) 08/18/2017 Assessment/Plan Principal Problem: Acute [...] Diabetes History Type 1DM :diagnosed in 04/2016 Head Of Advertising : seeing pcp at [facility] per pt DM Home meds- medtronic 670G [...] schedule NPH 15 AT 9 AM (for nutritionalcoverage) - nph 10 units 30 min before [...] follow up- [facility] can [facility] with [facility]CP Monserrat Estrada MD Endocrinology, PGY 5 Pager [phone] or secure chat Associated attestation - Quentin Buckley MD PhD - 01/20/2024 10:31 PM EDT I saw and evaluated the patient. I personally obtained the stone and critical portions of the historyand physical exam or was physically present for stone and critical portions performed by the resident/fellow. I reviewed the resident/fellow's documentation and discussed the patient with the resident/f charisma. I agree with the resident/fellow's medical decision making as documented in the note. * Mya Dawson MD - 01/20/2024 6:57 AM EDT Luly Giron is a 28 y.o. male on day 2 of admission presenting with Acute rejection of livertransplant (Multi). Subjective Had some abdominal pain yesterday [...] (PF), 125 mg, intravenous, Once per day onSunday Monday methylPREDNISolone sodium succinate (PF), 250 mg, [...] Results from last 7 days Lab Units 01/19/2472601/18/242121 WBC AUTO x10*3/uL 2.6* 5.2 HEMOGLOBIN g/dL 13.6 11.5* HEMATOCRIT % 41.4 34.7* PLATELETS AUTO x10*3/uL 123* 109* Results from last 7 days Lab Units 01/19/2472601/18/242121 SODIUM mmol/L 136 139 POTASSIUM mmol/L 4.6 3.6 CHLORIDE mmol/L 101 102 CO2 mmol/L 27 32 BUN mg/dL 19 19 CREATININE mg/dL 0.88 0.91 CALCIUM mg/dL 8.8 8.8 MAGNESIUM mg/dL 2.27 1.49* Results from last 7 days Lab Units 01/19/2472601/18/242121 ALK PHOS U/L 271* 233* BILIRUBIN TOTAL mg/dL 2.3* 2.0* BILIRUBIN DIRECT mg/dL 1.2* -- PROTEIN TOTAL g/dL 7.0 6.5 ALT U/L 83* 78* AST U/L 84* 90* Results from last 7 days Lab Units 01/19/2472601/18/242121 APTT seconds 30 30 INR 1.2* 1.2* [...] code (confirmed on admission) NOK: Candis (mother) [phone] Mya Dawson MD Internal Medicine, PGY-1 Associated [...] overnight. He actually passed a kidney stone. Hereports that this is actually a common issue [...] from the Solu-Medrol. Olivia Castaneda MD, FAASLD, FACG Utility Bill Collection Clerk, Hepatology Senior Attending Physician [facility] window trimmer apprentice Division of Gastroenterology and Liver Disease [facility] [address] [place] [phone] * Ramin Melton, PharmD - 01/19/2024 2:09 PM EDT Pharmacy Medication History Review Luly Giron is a 28 y.o. male admitted for Acute rejection of liver transplant ([facility]). Pharmacy reviewed the patient's uqvkj-or-copteompv medications and allergies for accuracy. The list below reflects the updated SLEEP LAB TECHNOLOGIST list. Comments regarding how patient may be [...] at discharge. Pharmacy has been updated to [facility] in [place]. Sources used to complete the med history include out patient fill history, OARRS, and patient interview Reliable historian Below are additional concerns with the patient's SLEEP LAB TECHNOLOGIST list. N/A Ramin Melton PharmD Transitions of Care Pharmacist [facility] Please reach out via Secure Chat for questions, or if no response call Reacción or NightOwl[employer] * Kapil العلي RN - 01/19/2024 1:49 PM EDT 01/19/24 1344 Discharge Planning Living Arrangements Spouse/significant [...] to pay the mortgage or rent on time?N In the last 12 months, how many places have you lived? 1 In the last 12 months, was there a time when you did not have a steady place to sleep or slept in ashelter (including now)? N Transportation Needs In the past 12 months, has lack of transportation kept you from medical appointments or from getting medications? no In the past 12 months, has lack of transportation kept you from meetings, work, or from getting things needed for daily living? No Met with pt and introduced myself as career technical counselor with Care Transitions Team for discharge planning. Pt lives at home with and is completely independent with ADL's/iADL's + drives. Pt statedhe feels safe at home. Pt denies any falls. Pt's address, phone number, and contact information was verified. Pt denies any social or financial concerns at this time. Home care: none. DME: glucometer + insulin supplies. advertising agency manager: none. PCP: Coby Sosa MD Last appt: Few months ago Transport to appts: Pt drives himself. Pharm: [facility] (denies issues affording/obtaining medications, including Transplant meds) Discharge Planning: Pt admitted for c/f acute transplant rejection after biopsy, team plan to startsteroids x3 days and repeat biopsy on Monday, no home going needs anticipated at time of discharge.administrative assistant coordinator will continue to follow for discharge planning needs. Kapil العلي RN Transitional Coding Quality Analyst/[facility] [id number] documented in this [facility] Work Phone: 1(761) 611-261004-24-2024 Hospital Discharge instructions* Discharge Instructions* Mya Dawson MD - 01/24/2024 8:03 AM EDT Discharge Instructions Dear Luly Giron, You were admitted to [facility] for concern of transplant rejection after your most recent liver biopsy.While you were admitted, we gave you a [...] liver. Because of this, we did an ultrasoundof your heart to make sure that was not the cause and everything looked normal. Your repeat liver biopsy showed some chronic rejection and was very similar to the one you had before you were admittedto the hospital. There are a few special [...] the same time as your Prednisone, and continuethe same pump settings that you used in the hospital: Basal rates of 0.5U/hr, ICR 1:9, and ISF 1:40 Appointments/follow-up: We have requested an automated system to call you to schedule, however if you do not hear from themin next few days, please call [facility] appointment line: [phone] Ayoub's team will call you to schedule lab work, likely early next week. Please call your PCP and schedule an appointment to be seen after your appointment with Dr. Ayoub as your medications may change and your insulin regimen may need to be adjusted. It was a pleasure taking care of you, Your Care Team documented in this [facility] Work Phone: 1([phone]) 486-428904-23-2024 Note1. Trace amount of ascites. 2. Essentially normal Doppler evaluation. 3. Non-obstructing stones right kidney MACRO: None Signed by: Татьяна Eid 01/23/2024 12:57 PM Dictation workstation: [id number] Hospital Note* Hospital Course - Mya Dawson MD - 01/23/2024 10:24 AM EDT Luly Giron is a 28 y.o. 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 Pt follows with Dr. Ayoub,recently developed fatigue, low appetite, weight loss, nausea, intermittent RUQ pain last few months with elevated LFTs ALP 242, ALT 81, AST 93, Tbili 2.7 (01/03). Underwent biopsy 01/16 c/w late ACR with sinusoidal and hepatic patterns of injury, COULTER 4/9. Stage 3 fibrosis. Recommended admission for pulse dose steroids and repeat biopsy. On admission, was HDS with labs significant for WBC 2.6, Hgb 13.6, Plt 123. LFTs notable for ALP 271, ALT 83, AST 84, Tbili 2.3, Dbili 1.2, relatively stable fromweeks prior. He was started on a 5d [...] US to rule out a hematoma given recentbiopsies. RUQ was largely unremarkable, had some trace [...] discharged on his inpatient immunosuppression regimen of Vxpsynehls8zv BID, MMF 250mg BID, and Prednisone 60mg [...] ISF 1:40 along with outpatient Endocrinology referral. [facility] Work Phone: 1(156) 778-988704-23-2024 Miscellaneous Notes* Hospital Course - Mya Dawson MD - 01/23/2024 10:24 AM EDT Luly Giron is a 28 y.o. 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 Pt follows with Dr. Ayoub,recently developed fatigue, low appetite, weight loss, nausea, [...] 84, Tbili 2.3, Dbili 1.2, relatively stable fromweeks prior. He was started on a 5d [...] US to rule out a hematoma given recentbiopsies. RUQ was largely unremarkable, had some trace [...] discharged on his inpatient immunosuppression regimen of Gdbcckavup2jh BID, MMF 250mg BID, and Prednisone 60mg [...] ISF 1:40 along with outpatient Endocrinology referral. * Post-Procedure Note - Zhane Vaughan MD - 01/23/2024 8:58 AM EDT Interventional Radiology Brief Postprocedure Note Attending: Dr. Татьяна Eid MD Kettle Operator: Zhane Vaughan MD Diagnosis: Concern for acute rejection of liver transplant, s/p steroid treatment Description of procedure: A total of 2 passes were made into the right hepatic lobe under ultrasound guidance using a 18 Gauge needle passed through a 17 gauge coaxial system. Scanning after each pass demonstrated no bleeding. Specimens were sent to pathology for further analysis. See PACS for fullprocedural report. Anesthesia: Local, Fentanyl & Versed Complications: [...] *Administration dose not documented Date/Time Rate/Dose/Volume Action 01/19/24 0900 *1 mg Missed 0929 *Not included in total Held by provider 01/20/24 0900 *Not included in total Automatically Held 1249 [...] included in total Date/Time Rate/Dose/Volume Action 01/19/24 1848 *10 mL Pump Refill methylPREDNISolone sodium succinate [...] mg* *From user-documented volume Date/Time Rate/Dose/Volume Action 01/19/24 203 250 mg - 104 mL/hr (over 60 [...] 25 Units (Units) Total dose: 25 Units Dosingweight: 55.5 Date/Time Rate/Dose/Volume Action 01/19/242021 25 Units Given insulin NPH (Isophane) (HumuLIN N,NovoLIN N) injection 10 Units (Units) Total dose: 10 Units Dosingweight: 55.5 Date/Time Rate/Dose/Volume Action 01/20/24 1904 10 Units Given insulin NPH (Isophane) (HumuLIN N,NovoLIN N) injection 15 Units (Units) Total dose: 15 Units Dosingweight: 55.5 Date/Time Rate/Dose/Volume Action 01/20/24 1331 15 Units Given insulin NPH (Isophane) (HumuLIN N,NovoLIN N) injection 15 Units (Units) Total dose: 15 Units Dosingweight: 55.5 Date/Time Rate/Dose/Volume Action 01/21/24 0832 15 Units Given insulin NPH (Isophane) (HumuLIN N,NovoLIN N) injection 10 Units (Units) Total dose: 10 Units Dosingweight: 55.5 Date/Time Rate/Dose/Volume Action 01/21/24 2026 10 Units Given insulin NPH (Isophane) (HumuLIN N,NovoLIN N) injection 15 Units (Units) Total dose: 15 Units Dosingweight: 55.5 Date/Time Rate/Dose/Volume Action 01/22/24 0846 15 Units Given insulin NPH (Isophane) (HumuLIN N,NovoLIN N) injection 10 Units (Units) Total dose: 10 Units Dosingweight: 55.5 Date/Time Rate/Dose/Volume Action 01/22/24 1422 10 Units Given insulin NPH (Isophane) (HumuLIN N,NovoLIN N) injection 10 Units (Units) Total dose: 10 Units Dosingweight: 55.5 Date/Time Rate/Dose/Volume Action 01/22/242012 10 Units Given tacrolimus (Prograf) capsule 1 [...] or complication and is in stable condition. * Care Plan - Celia Leiva RN - 01/21/2024 4:36 AM EDT The patient's goals for the shift include [...] age by end of shift Outcome: Progressing * Significant Event - Mya Dawson MD - 01/19/2024 4:03 PM EDT Updated Assessment and Plan: Nithin Giron is [...] code (confirmed on admission) NOK: Candis (mother) [phone] Mya Dawson MD Internal Medicine, PGY-1 * Significant Event - Muna Meza MD - 01/18/2024 8:00 PM EDT Senior staffing note Please see the excellent [...] loss for the pas few moths. Has intermittentnausea, but no vomiting, and RUQ sharp pain [...] histiocytes, neutrophils, plasma cells, and eosinophils. Mild in terface activity is present. The bile duct show [...] ascites. Also, liver echogenicity was slightly increased andcoarsened throughout and liver contours did appear to [...] Ref Range Case Report Surgical Pathology Case: [id number] Authorizing Provider: Татьяна Eid MD Collected: 01/17/2024 1000 Ordering Location: [facility] Received: 01/17/2024 [facility] Pathologist: Kenn Diaz MD [...] determined by the Department of Pathology at [facility]. The FDA does not require [...] to person, place, and time. He appears well- developed and well-nourished. No distress. HENT: Eyes: Conjunctivae [...] Ayoub outpatient, and was instructed to be admittedfor pulse steroids after the results of liver [...] on admission) Surrogate Medical Decision-maker: Candis (mother) [phone] documented in this [facility] Work Phone: 1(717) 492-113204-23-2024 Note* Post-Procedure Note - Zhane Vaughan MD - 01/23/2024 8:58 AM EDT Interventional Radiology Brief Postprocedure Note Attending: Dr. Татьяна Eid MD Kettle Operator: Zhane Vaughan MD Diagnosis: Concern for acute rejection of liver transplant, s/p steroid treatment Description of procedure: A total of 2 passes were made into the right hepatic lobe under ultrasound guidance using a 18 Gauge needle passed through a 17 gauge coaxial system. Scanning after each pass demonstrated no bleeding. Specimens were sent to pathology for further analysis. See PACS for fullprocedural report. Anesthesia: Local, Fentanyl & Versed Complications: [...] *Administration dose not documented Date/Time Rate/Dose/Volume Action 01/19/24 09 *1 mg Missed 0929 *Not included in total Held by provider 01/20/24 09 *Not included in total Automatically Held 1249 [...] included in total Date/Time Rate/Dose/Volume Action 01/19/24 1848 *10 mL Pump Refill methylPREDNISolone sodium succinate [...] mg* *From user-documented volume Date/Time Rate/Dose/Volume Action 01/19/24 2031 250 mg - 104 mL/hr (over 60 [...] 25 Units (Units) Total dose: 25 Units Dosingweight: 55.5 Date/Time Rate/Dose/Volume Action 01/19/24 202 25 Units Given insulin NPH (Isophane) (HumuLIN N,NovoLIN N) injection 10 Units (Units) Total dose: 10 Units Dosingweight: 55.5 Date/Time Rate/Dose/Volume Action 01/20/24 1904 10 Units Given insulin NPH (Isophane) (HumuLIN N,NovoLIN N) injection 15 Units (Units) Total dose: 15 Units Dosingweight: 55.5 Date/Time Rate/Dose/Volume Action 01/20/24 1331 15 Units Given insulin NPH (Isophane) (HumuLIN N,NovoLIN N) injection 15 Units (Units) Total dose: 15 Units Dosingweight: 55.5 Date/Time Rate/Dose/Volume Action 01/21/24 0832 15 Units Given insulin NPH (Isophane) (HumuLIN N,NovoLIN N) injection 10 Units (Units) Total dose: 10 Units Dosingweight: 55.5 Date/Time Rate/Dose/Volume Action 01/21/246 10 Units Given insulin NPH (Isophane) (HumuLIN N,NovoLIN N) injection 15 Units (Units) Total dose: 15 Units Dosingweight: 55.5 Date/Time Rate/Dose/Volume Action 01/22/24 0846 15 Units Given insulin NPH (Isophane) (HumuLIN N,NovoLIN N) injection 10 Units (Units) Total dose: 10 Units Dosingweight: 55.5 Date/Time Rate/Dose/Volume Action 01/22/24 1422 10 Units Given insulin NPH (Isophane) (HumuLIN N,NovoLIN N) injection 10 Units (Units) Total dose: 10 Units Dosingweight: 55.5 Date/Time Rate/Dose/Volume Action 01/22/242012 10 Units Given tacrolimus (Prograf) capsule 1 [...] and is in stable condition. [facility] Work Phone: 1(242) 560-978404-21-2024 Plan of care note* Care Plan - Celia Leiva RN - 01/21/2024 4:36 AM EDT The patient's goals for the shift include [...] end of shift Outcome: Progressing [facility]04-19-2024 Note* Significant Event - Mya Dawson MD - 01/19/2024 4:03 PM EDT Updated Assessment and Plan: Nithin Giron is [...] code (confirmed on admission) NOK: Candis (mother) [phone] Mya Dawson MD Internal Medicine, PGY-1 [facility] Work Phone: [phone]) 621-716704-19-2024 History and physical note* Patti Darnell MD - 01/19/2024 3:00 PM EDT History Of Present Illness Luly Giron is [...] and EBV negative at that time, with liverbiopsy suggestive of mild portal inflammation. Patient's LFTs [...] lethargy, intermittent RUQ pain, and frequent, loose, light- colored stools. He feels like he has lost [...] 08/15/2017 US GUIDED NEEDLE LIVER BIOPSY 08/15/2017 [facility] US GUIDED NEEDLE LIVER BIOPSY 08/22/2017 US GUIDED NEEDLE LIVER BIOPSY 08/22/2017 [facility] US GUIDED NEEDLE LIVER BIOPSY 02/03/2023 US GUIDED NEEDLE LIVER BIOPSY 02/03/2023 [facility] Social History He reports that he has [...] and nausea. Negative for blood in stool andvomiting. Endocrine: Negative. Genitourinary: Negative. Musculoskeletal: Negative. 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 Olivia Castaneda MD, FAAS, [facility] Utility Bill Collection Clerk, Hepatology Senior Attending Physician [facility] window trimmer apprentice Division of Gastroenterology and Liver Disease [facility] [address] [place] [phone] [facility] Work Phone: 1([phone]) 601-540504-19-2024 History and physical note* Patti Darnell MD - 01/19/2024 3:00 PM EDT History Of Present Illness Luly Giron is [...] and EBV negative at that time, with liverbiopsy suggestive of mild portal inflammation. Patient's LFTs [...] lethargy, intermittent RUQ pain, and frequent, loose, light- colored stools. He feels like he has lost [...] 08/15/2017 US GUIDED NEEDLE LIVER BIOPSY 08/15/2017 [facility] US GUIDED NEEDLE LIVER BIOPSY 08/22/2017 US GUIDED NEEDLE LIVER BIOPSY 08/22/2017 [facility] US GUIDED NEEDLE LIVER BIOPSY 02/03/2023 US GUIDED NEEDLE LIVER BIOPSY 02/03/2023 [facility] Social History He reports that he has [...] and nausea. Negative for blood in stool andvomiting. Endocrine: Negative. Genitourinary: Negative. Musculoskeletal: Negative. 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 Olivia Castaneda MD, FAASLD, [facility] Utility Bill Collection Clerk, Hepatology Senior Attending Physician [facility] window trimmer apprentice Division of Gastroenterology and Liver Disease [facility] [address] [place] [phone] documented in this [facility] Work Phone: [phone]) 764-468604-19-2024 Consult note* Chacha Quintanilla RDN, LD - 01/19/2024 1:20 PM EDT Nutrition Initial Assessment: Nutrition Assessment Reason for Assessment: Admission nursing screening Patient is a 28 y.o. 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 Nutrition History: Energy Intake: Fair 50-75 % Food and Nutrient History: Pt reports decreased appteite secondary to early satiety and feelings offullness over the last several months. Does not [...] (slightly depressed area between thumb and forefinger) Trapezius/Infraspinatus/Supraspinatus (Scapular Region): Mild-Moderate (slight protrusion of scapula) [...] Orders (From admission, onward) Start Ordered 01/19/24 06 Adult diet Carb Controlled; 75 gram carb/meal, 45 gram Carb evening snack Diet effective now Question Answer Comment Diet type Carb Controlled Carb diet selection: 75 gram carb/meal, 45 gram Carb evening snack 01/19/24 0655 01/18/242140 May Participate in Room Service Once Question: . Answer: Yes 01/18/242141 Estimated Needs: Total Energy Estimated Needs (kCal): (6534-3218) Method for Estimating Needs: 30-35 kcal/kg actual [...] policy Follow up Comment: diet + ONS [facility]04-19-2024 Consult note* Chacha Quintanilla RDN, LD - 01/19/2024 1:20 PM EDT Nutrition Initial Assessment: Nutrition Assessment Reason for Assessment: Admission nursing screening Patient is a 28 y.o. 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 Nutrition History: Energy Intake: Fair 50-75 % Food and Nutrient History: Pt reports decreased appteite secondary to early satiety and feelings offullness over the last several months. Does not [...] (slightly depressed area between thumb and forefinger) Trapezius/Infraspinatus/Supraspinatus (Scapular Region): Mild-Moderate (slight protrusion of scapula) [...] EGFR mL/min/1.73m*2 >90 >90 BUN mg/dL 19 CREATININE mg/dL 0.88 0.91 Nutrition Specific [...] Estimated Needs: Total Energy Estimated Needs (kCal): (0145-8326) Method for Estimating Needs: 30-35 kcal/kg actual [...] policy Follow up Comment: diet + ONS * Monserrat Estrada MD - 01/19/2024 7:46 AM EDTAssociated Order(s): Inpatient consult to Endocrinology Inpatient consult [...] Diabetes History Type 1DM :diagnosed in 04/2016 Head Of Advertising : seeing pcp at [facility] per pt DM Home meds- medtronic 670G [...] 84 (H) 01/19/2024 GLUCOSE 262 (H) 01/19/2024 [id number] 0.09 (H) 08/18/2017 Diabetes Problem List Entries with Dates Problem List: 2015-: Type 1 diabetes mellitus (Multi) Past Medical [...] Diabetes History Type 1DM :diagnosed in 04/2016 Head Of Advertising : seeing pcp at [facility] per pt DM Home meds- medtronic 670G [...] follow up- [facility] Monserrat Estrada MD Endocrinology, PGY 5 Pager [phone] or secure chat Associated attestation - Quentin Buckley MD PhD - 01/19/2024 7:58 PM EDT I saw and evaluated the patient. I personally obtained the stone and critical portions of the historyand physical exam or was physically present for stone and critical portions performed by the resident/fellow. I reviewed the resident/fellow's documentation and discussed the patient with the resident/f charisma. I agree with the resident/fellow's medical decision making as documented in the note. documented in [facility] Work Phone: 1(655) 123-972404-19-2024 Consult note* Monserrat Estrada MD - 01/19/2024 7:46 AM EDTAssociated Order(s): Inpatient consult to Endocrinology Inpatient consult [...] Diabetes History Type 1DM :diagnosed in 04/2016 Head Of Advertising : seeing pcp at [facility] per pt DM Home meds- medtronic 670G [...] 84 (H) 01/19/2024 GLUCOSE 262 (H) 01/19/2024 [id number] 0.09 (H) 08/18/2017 Diabetes Problem List Entries [...] Diabetes History Type 1DM :diagnosed in 04/2016 Head Of Advertising : seeing pcp at [facility] per pt DM Home meds- medtronic 670G [...] follow up- [facility] Monserrat Estrada MD Endocrinology, PGY 5 Pager [phone] or secure chat Associated attestation - Quentin Buckley MD PhD - 01/19/2024 7:58 PM EDT I saw and evaluated the patient. I personally obtained the stone and critical portions of the historyand physical exam or was physically present for stone and critical portions performed by the resident/fellow. I reviewed the resident/fellow's documentation and discussed the patient with the resident/deisy zafar. I agree with the resident/fellow's medical decision making as documented in the note. [facility] Work Phone: 1([phone]) 111-634904-18-2024 Note* Significant Event - Muna Meza MD - 01/18/2024 8:00 PM EDT Senior staffing note Please see the excellent [...] loss for the pas few moths. Has intermittentnausea, but no vomiting, and RUQ sharp pain [...] histiocytes, neutrophils, plasma cells, and eosinophils. Mild in terface activity is present. The bile duct show [...] ascites. Also, liver echogenicity was slightly increased andcoarsened throughout and liver contours did appear to [...] Ref Range Case Report Surgical Pathology Case: [id number] Authorizing Provider: Татьяна Eid MD Collected: 01/17/2024 1000 Ordering Location: [facility] Received: 01/17/2024 [facility] Pathologist: Kenn Diaz MD [...] determined by the Department of Pathology at [facility]. The FDA does not require [...] to person, place, and time. He appears well- developed and well-nourished. No distress. HENT: Eyes: Conjunctivae [...] Ayoub outpatient, and was instructed to be admittedfor pulse steroids after the results of liver [...] on admission) Surrogate Medical Decision-maker: Candis (mother) [phone] [facility] Work Phone: 1(255) 437-510804-17-2024 Miscellaneous Notes* Post-Procedure Note - Zhane Vaughan MD - 01/17/2024 9:00 AM EDT Interventional Radiology Brief Postprocedure Note Attending: Dr. Татьяна Eid MD Kettle Operator: Zhane Vaughan MD Diagnosis: Liver transplant Description [...] Loss: minimal Medications (Filter: Administrations occurring from 946 to 1004 on 01/17/24) As of 01/17/24 [...] complication and is in stable condition. Associated attestation - Татьяна Eid MD - 01/17/2024 1:08 PM EDT I was present for the entire procedure documented in this [facility] Work Phone: 1(408) 791-482504-17-2024 Note* Post-Procedure Note - Zhane Vaughan MD - 01/17/2024 9:00 AM EDT Interventional Radiology Brief Postprocedure Note Attending: Dr. Татьяна Eid MD Kettle Operator: Zhane Vaughan MD Diagnosis: Liver transplant Description [...] complication and is in stable condition. Associated attestation - Татьяна Eid MD - 01/17/2024 1:08 PM EDT I was present for the entire procedure [facility] Work Phone: 1(357) 856-993603-19-2024 Hospital Discharge instructions* Discharge Instructions* Latasha Perry RN - 12/19/2023 11:52 AM [...] questions related to your procedure: Please call [phone] between the hours of 7:00am-5:00pm Monday through Monday. Please call [phone] after 5:00pm and on weekends and holidays. In the event of an emergency call 911 or go to your nearest emergency room. documented in this encounterUniversity [facility] Work Phone: 1(710) 258-685803-19-2024 Miscellaneous Notes* Post-Procedure Note - Doyle Cavazos MD - 12/19/2023 9:00 AM EDT Interventional Radiology Post-Procedure Note US guided percutaneous [...] Procedure performed by: Dr. Татьяна Eid MD Kettle Operator(s): Doyle Cavazos MD Estimated Blood Loss (mL): [...] Medications (Filter: Administrations occurring from 0921 to 0949 on 12/19/23) As of 12/19/23 0949 fentaNYL [...] procedure Doyle Cavazos, PGY-3 Diagnostic Radiology NON-Urgent tong setter weekends and after hours weekdays (5pm - 5am) IR pager: [phone] Urgent & emergent tong setter weekends and after hours weekdays (5pm-7am) IR pager: [phone] * Pre-Procedure Note - Doyle Cavazos MD - 12/19/2023 9:00 AM EDT INTERVENTIONAL RADIOLOGY PRE-PROCEDURE NOTE Luly Giron is [...] 08/15/2017 US GUIDED NEEDLE LIVER BIOPSY 08/15/2017 [facility] US GUIDED NEEDLE LIVER BIOPSY 08/22/2017 US GUIDED NEEDLE LIVER BIOPSY 08/22/2017 [facility] US GUIDED NEEDLE LIVER BIOPSY 02/03/2023 US GUIDED NEEDLE LIVER BIOPSY 02/03/2023 [facility] Relevant Labs: Lab Results Component Value Date [...] been discussed with the patient and/or their business services sales representative. All questions answered and they agree to proceed. Doyle Cavazos, PGY-3 Diagnostic Radiology NON-Urgent tong setter weekends and after hours weekdays (5pm - 5am) IR pager: [phone] Urgent & emergent tong setter weekends and after hours weekdays (5pm-7am) IR pager: [phone] documented in this encounterUniversity [facility] Work Phone: [phone]) 945-450103-19-2024 Note* Post-Procedure Note - Doyle Cavazos MD - 12/19/2023 9:00 AM EDT Interventional Radiology Post-Procedure Note US guided percutaneous [...] Procedure performed by: Dr. Татьяна Eid MD Kettle Operator(s): Doyle Cavazos MD Estimated Blood Loss (mL): [...] 09 to 49 on 12/19/23) As of 12/19/2349 fentaNYL PF (Sublimaze) injection (mcg) Total dose: 50 mcg Date/Time Rate/Dose/Volume Action 12/19/23937 50 mcg Given midazolam (Versed) injection (mg) Total dose: 1 mg Date/Time Rate/Dose/Volume Action 12/19/2338 1 mg Given Fentanyl: 50 mcg Versed: 1 mg 1% Lidocaine: 8 mL Attending Attestation: I was present for the entire procedure Doyle Cavazos, PGY-3 Diagnostic Radiology NON-Urgent tong setter weekends and after hours weekdays (5pm - 5am) IR pager: [phone] Urgent & emergent tong setter weekends and after hours weekdays (5pm-7am) IR pager: [phone] [facility] Work Phone: 1(798) 184-616503-19-2024 Note* Pre-Procedure Note - Doyle Cavazos MD - 12/19/2023 9:00 AM EDT INTERVENTIONAL RADIOLOGY PRE-PROCEDURE NOTE Luly Giron is [...] 08/15/2017 US GUIDED NEEDLE LIVER BIOPSY 08/15/2017 [facility] US GUIDED NEEDLE LIVER BIOPSY 08/22/2017 US GUIDED NEEDLE LIVER BIOPSY 08/22/2017 [facility] US GUIDED NEEDLE LIVER BIOPSY 02/03/2023 US GUIDED NEEDLE LIVER BIOPSY 02/03/2023 [facility] Relevant Labs: Lab Results Component Value Date [...] been discussed with the patient and/or their business services sales representative. All questions answered and they agree to proceed. Doyle Cavazos, PGY-3 Diagnostic Radiology NON-Urgent tong setter weekends and after hours weekdays (5pm - 5am) IR pager: [phone] Urgent & emergent tong setter weekends and after hours weekdays (5pm-7am) IR pager: [phone] [facility] Work Phone: [phone]) 992-947403-19-2024 Note* Post-Procedure Note - Doyle Cavazos MD - 12/19/2023 9:00 AM EDT Interventional Radiology Post-Procedure Note US guided percutaneous [...] Procedure performed by: Dr. Татьяна Eid MD Kettle Operator(s): Doyle Cavazos MD Estimated Blood Loss (mL): [...] procedure Doyle Cavazos, PGY-3 Diagnostic Radiology NON-Urgent tong setter weekends and after hours weekdays (5pm - 5am) IR pager: [phone] Urgent & emergent tong setter weekends and after hours weekdays (5pm-7am) IR pager: [phone] [facility] Work Phone: 1(460) 386-715403-19-2024 Note* Pre-Procedure Note - Doyle Cavazos MD - 12/19/2023 9:00 AM EDT INTERVENTIONAL RADIOLOGY PRE-PROCEDURE NOTE Luly Giron is [...] 08/15/2017 US GUIDED NEEDLE LIVER BIOPSY 08/15/2017 [facility] US GUIDED NEEDLE LIVER BIOPSY 08/22/2017 US GUIDED NEEDLE LIVER BIOPSY 08/22/2017 [facility] US GUIDED NEEDLE LIVER BIOPSY 02/03/2023 US GUIDED NEEDLE LIVER BIOPSY 02/03/2023 [facility] US Relevant Labs: Lab Results [...] been discussed with the patient and/or their business services sales representative. All questions answered and they agree to proceed. Doyle Cavazos, PGY-3 Diagnostic Radiology NON-Urgent tong setter weekends and after hours weekdays (5pm - 5am) IR pager: [phone] Urgent & emergent tong setter weekends and after hours weekdays (5pm-7am) IR pager: [phone] [facility] Work Phone: 1([phone]) 336-920901-29-2024 Evaluation note* Encounter Date Diagnosis Assessment Notes Treatment Notes Treatment Clinical Notes Oct, Acute sinusitis, unspecified (ICD-10 - [...] results. Chose cefdinir as that is safer. [facility] Other 01-08-2024 Evaluation note* Encounter Date Diagnosis [...] - Z94.4) Continue followup w transplant clinic. [facility] Other 11-02-2023 History of Present illness Narrative* [...] agree with the findings as stated by radiology tech Ramya Steward MD. This study was interpreted at [facility], [place], [place]. Lab Results Component Value Date ALT 69 07/18/2023 AST 53 07/18/2023 GGT 71 (H) 04/11/2018 ALKPHOS 180 07/18/2023 BILITOT 1.2 07/18/2023 Liver replaced by transplant (CMS/HCC) The patient will decrease tacrolimus to 1 bid Labs will continue to be ordered every 6 months We recommended annual dermatological examination We will see the patient in follow up in 6 months [facility] Work Phone: 1(893) 930-869611-02-2023 Instructions* Patient Instructions* Nae Campos RN - 08/03/2023 10:00 AM EDT Lower tacrolimus to 1mg twice daily and repeat labs in 2 weeks. documented in this [facility] Work Phone: 1(684) 399-872811-02-2023 Evaluation + Plan note* Assessment & Plan Note - Sharan Ayoub MD - 08/03/2023 9:52 AM EDTAssociated Problem(s): Liver replaced by transplant (CMS/HCC) The patient will decrease tacrolimus to 1 bid Labs will continue to be ordered every 6 months We recommended annual dermatological examination We will see the patient in follow up in 6 months [facility] Work Phone: 1(256) 595-225111-02-2023 Miscellaneous Notes* Assessment & Plan Note - Sharan Ayoub MD - 08/03/2023 9:52 AM EDTAssociated Problem(s): Liver replaced by transplant (CMS/HCC) The patient will decrease tacrolimus to 1 bid Labs will continue to be ordered every 6 months We recommended annual dermatological examination We will see the patient in follow up in 6 months [facility] Work Phone: 1(576) 196-649807-03-2023 Evaluation note* Encounter Date Diagnosis Assessment Notes Treatment Notes Treatment Clinical Notes Apr, Irritable bowel syndrome with diarrhea (ICD-10 - K58.0) Discussed if needed, see his GI in [place] as he has an entire transplant team there. In meantime, stay hydrated, has appt in [place] next week Apr, Liver transplant recipient (ICD-10 - Z94.4) Updated on present issues. Pt understands which OTC meds to avoid to protect his liver. [facility] Other 05-05-2023 NotePre-procedure Verification and Time Out: Pre-Procedure Verification and Time Out: Procedure Locationprocedure area HUDDLE - Pre-procedure Verificationcompleted TIME OUT - Final Verificationcompleted immediately prior to procedure start DEBRIEFcompleted General Information: Anesthesia Critical Care: Non-Anesthesia Date/Time of Procedure: 03-Feb-2023 08:20 Post-Procedure Diagnosis: s/p hepatic transplant Procedure Name: biopsy, liver Findings: grossly normal anatomy Procedure performed by: Kettle Operator(s): stephania Estimated Blood Loss (mL): none Specimen: [...] Completion Last Updated: 07-Feb-2023 09:02 by Татьяна Eid)[facility] 12-22-2022 Evaluation note* Encounter Date Diagnosis Assessment [...] elevates his glucose so will avoid augmentin. [facility] Other 05-05-2022 History of Present illness Narrative* PCP: Dr. Coby Sosa (tel: [phone]; fax: [phone]) * Mr. Luly Giron is a 26 [...] History: * Modifying Factors: * Associated Symptoms: DT-Evkhwwzrea-WMN [place] [address] Work Phone: 1(187) 475-828310-07-2021 History of Present illness Narrative* PCP: Dr. Coby Locke (tel: [phone]; fax: [phone]) * Mr. Luly Giron is a 26 [...] History: * Modifying Factors: * Associated Symptoms: FW-Tacgjbnwvf-ZQR [address] Work Phone: 1(342) 484-319507-08-2016 History of Present illness Narrative* PCP: Dr. Coby Sosa (tel: [phone]; fax: [phone]) * Mr. Luly Giron is a 26 [...] History: * Modifying Factors: * Associated Symptoms: OB-Zqogvaohvjyzpxyp-Zxqaxmyz [address] [facility] Work Phone: 1([phone]) 931-973607-01-2016 History of Present illness Narrative* 28-year-old male [...] or bumps in neck axilla and groin. VB-Qatgdrumwv-Taqbrb [address] DO Work Phone: Evaluation + Plan note No data available for this section [facility] Evaluation noteNo assessment information available [facility] Work Phone: Evaluation note* Diagnosis Liver replaced by transplant (CMS/HCC) Liver replaced by transplant documented in this encounter [facility] Work Phone: Evaluation note* Diagnosis Liver transplant status (CMS/HCC) Other specified abnormal findings of blood chemistry Type 2 diabetes mellitus without complications (CMS/HCC) Immunodeficiency, unspecified (CMS/HCC) Anxiety disorder, unspecified Thyrotoxicosis, unspecified without thyrotoxic crisis or storm documented in this encounter [facility] Work Phone: Evaluation noteNo InformationNort [employer] Other Evaluation note* Diagnosis Liver replaced by transplant (CMS/HCC) Liver replaced by transplant Elevated LFTs Other abnormal blood chemistry Liver replaced by transplant (CMS/HCC)- Primary Liver replaced by transplant documented in this encounter [facility] Work Phone: Evaluation note* Diagnosis Elevated LFTs Other abnormal blood chemistry Liver replaced by transplant (CMS/HCC) Liver replaced by transplant Complications, organ transplant Complications of transplanted organ, unspecified site Liver replaced by transplant (CMS/HCC)- Primary Liver replaced by transplant documented in this encounter [facility] Work Phone: [phone] note* Diagnosis 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) Liver replaced by transplant Elevated LFTs Other abnormal blood chemistry 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)- Primary Liver replaced by transplant documented in this encounter [facility] Work Phone: [phone] note* Diagnosis Acute rejection of liver transplant [...] replaced by transplant documented in this encounter [facility] Work Phone: [phone] note* Diagnosis 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)- Primary Liver replaced by transplant documented in this encounter [facility] Work Phone: Evaluation note* Diagnosis Onset Date Resolution Status Depression acute Liver replaced by transplant [facility] Work Phone: Evaluation note* Diagnosis Onset Date Resolution Status Depression acute Liver replaced by transplant acute Depression acute Shingles acute [facility] Work Phone: Evaluation note* Diagnosis Onset Date Resolution Status Depression acute Shingles [facility] Work Phone: Evaluation note* Diagnosis 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) Liver replaced by transplant 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)- Primary Liver replaced by transplant Acute rejection of liver transplant (Multi) Complications of transplanted liver 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) Liver replaced by transplant Localized edema Edema Gastroesophageal reflux disease without esophagitis Esophageal reflux documented in this encounter [facility] Work Phone: Evaluation note* Diagnosis Herpes zoster without complication- Primary Post herpetic neuralgia (CMS/HCC) Herpes zoster with other nervous system complications [facility] Diagnosis 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) Liver replaced by transplant 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)- Primary Liver replaced by transplant Acute rejection of liver transplant (Multi) Complications of transplanted liver 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) Liver replaced by transplant Localized edema Edema Gastroesophageal reflux disease without esophagitis Esophageal reflux 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) Liver replaced by transplant documented in this encounter [facility] Work Phone: Evaluation note* Diagnosis Well adult exam- Primary Routine general medical examination at a health care facility Type 1 diabetes mellitus without complication (CMS/HCC) Type I (juvenile type) diabetes mellitus without mention of complication, not stated as uncontrolled Type 1 diabetes mellitus without complication (CMS/HCC)- Primary Type I (juvenile type) diabetes mellitus without mention of complication, not stated as uncontrolled Type 1 diabetes mellitus without complication (CMS/HCC) Type I (juvenile type) diabetes mellitus without mention of complication, not stated as uncontrolled Type 1 diabetes mellitus without complication (CMS/HCC)- Primary Type I (juvenile type) diabetes mellitus without mention of complication, not stated as uncontrolled Common wart- Primary Other specified viral warts Other specified erythematous conditions [facility] Diagnosis Well adult exam- Primary Routine general medical examination at a health care facility Type 1 diabetes mellitus without complication Type I (juvenile type) diabetes mellitus without mention of complication, not stated as uncontrolled Type 1 diabetes mellitus without complication- Primary Type I (juvenile type) diabetes mellitus without mention of complication, not stated as uncontrolled Type 1 diabetes mellitus without complication Type I (juvenile type) diabetes mellitus without mention of complication, not stated as uncontrolled Type 1 diabetes mellitus without complication- Primary Type I (juvenile type) diabetes mellitus without mention of complication, not stated as uncontrolled Common wart- Primary Other specified viral warts Other specified erythematous conditions [facility]* Diagnosis 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) Liver replaced by transplant 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)- Primary Liver replaced by transplant Acute rejection of liver transplant (Multi) Complications of transplanted liver 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) Liver replaced by transplant Localized edema Edema Gastroesophageal reflux disease without esophagitis Esophageal reflux 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) Liver replaced by transplant 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)- Primary Liver replaced by transplant Hypertension, unspecified type documented in this encounter [facility] Work Phone: Evaluation note* Diagnosis 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) Liver replaced by transplant 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)- Primary Liver replaced by transplant Acute rejection of liver transplant (Multi) Complications of transplanted liver 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) Liver replaced by transplant Localized edema Edema Gastroesophageal reflux disease without esophagitis Esophageal reflux 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) Liver replaced by transplant 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)- Primary Liver replaced by transplant Hypertension, unspecified type 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) Liver replaced by transplant Complications, organ transplant Complications of transplanted organ, unspecified site Elevated LFTs Other abnormal blood chemistry documented in this encounter [facility] Work Phone: Evaluation note* Diagnosis 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) Liver replaced by transplant 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)- Primary Liver replaced by transplant Acute rejection of liver transplant (Multi) Complications of transplanted liver 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) Liver replaced by transplant Localized edema Edema Gastroesophageal reflux disease without esophagitis Esophageal reflux 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) Liver replaced by transplant 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)- Primary Liver replaced by transplant Hypertension, unspecified type 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) Liver replaced by transplant Acute rejection of liver transplant (Multi) Complications of transplanted liver documented in this encounter [facility] Work Phone: Evaluation note* Diagnosis Well adult exam- Primary Routine general medical examination at a health care facility Type 1 diabetes mellitus without complication (HCC) Type I (juvenile type) diabetes mellitus without mention of complication, not stated as uncontrolled Type 1 diabetes mellitus without complication (HCC)- Primary Type I (juvenile type) diabetes mellitus without mention of complication, not stated as uncontrolled Type 1 diabetes mellitus without complication (HCC) Type I (juvenile type) diabetes mellitus without mention of complication, not stated as uncontrolled Type 1 diabetes mellitus without complication (HCC)- Primary Type I (juvenile type) diabetes mellitus without mention of complication, not stated as uncontrolled Type 1 diabetes mellitus without complication (HCC) Type I (juvenile type) diabetes mellitus without mention of complication, not stated as uncontrolled documented in this encounter [facility] N[facility] - Reported* Type Description Date [...] History Lithotripsy 09/2020 Hospitalization History See above [employer] Other History of Present illness Narrative* The [...] History: * Modifying Factors: * Associated Symptoms: [id number] [address] [facility] Work Phone: History of Present illness Narrative* [...] * Mouth/Throat/Teeth: there are no oral symptoms. [facility] Work Phone: Instructions* Name Dates Details Instructions not documented [id number] Main Work Phone: Progress note No data available for this section [facility] Reason for referral (narrative)* Consultation (Routine) - Authorized Specialty Diagnoses / Procedures Referred By Contac t Referred To Contact Endocrinology Diagnoses Type 1 diabetes mellitus with hyperglycemia (Multi) [place] [address] [facility] [place] [address] Referral ID Status Reason Start Date Expiration Date Visits Requested Visits Authorized [id number] Authorized Specialty Services Required 01/24/2024 01/23/2025 1 1 Scheduling Instructions Thursday 02/01 would be best date as he has appointment scheduled for 01/31 with his events manager and may have steroid regimen changed at that time [facility] Work Phone: Reason for referral (narrative)* Consultation (Routine) - Pending Review Specialty Diagnoses / Procedures Referred By Carrie avila Referred To Contact Pain Medicine Diagnoses Post herpetic neuralgia (CMS/HCC) Procedures MA OFFICE/OUTPATIENT NEW HIGH MDM 60 MINUTES Zhane Nathan MD [address] [place] [address] Swapna Haddad MD [address] [place] [address] Referral ID Status Reason Start Date Expiration Date Visits Requested Visits Authorized [id number] Pending Review Specialty Services Required 05/27/2024 11/23/2024 1 1 [facility]No reason for [facility] Work Phone: Reason for visit Narrative* Imaging (Routine) - Authorized Specialty Diagnoses / Procedures Referred By Carrie t Referred To Contact Radiology Diagnoses 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) Complications, organ transplant Elevated LFTs Procedures [place] [address] [facility] Department [place] [address] Phone: tel: fax: Referral ID Status Reason Start Date Expiration Date Visits Requested Visits Authorized [id number] Authorized Perform Procedure 12/23/2024 12/23/2025 1 1 [facility] Work Phone: Family History No Family History [...] FoundDocuments on File Type Date Recorded Patient Plastic Surgeon Expl anation Healthcare Power of Atty 04/25/2016 Date Activated Date Inactivated Comments 01/18/2024 8:32 PM Question Answer Comments Plan of Care: Code Status Discussion Completed Decision Maker: Patient Advance Directive Response Recorded Date/ Time Advance Directives No July 07, 2017 12:16pm Advance Directive Response Recorded Date/ Time Advance Directives No July 07, 2017 1:16pm Documents on File Type Date Recorded Patient Plastic Surgeon Expl anation Healthcare Power of Atty 04/25/2016 Documents on File Type Date Recorded Patient Plastic Surgeon Expl anation Advance Directives and Living Will 12/02/2016 Healthcare Power of Atty 04/25/2016 Date Activated Date Inactivated Comments 01/18/2024 [...] Depression Liver replaced by transplant Depression Shingles Chief Complaint Z94.4 T86.41 THB follow up, shingles Z94.4 T86.41 TBH, abd pain, hyperglyemia, follicelitis Reason for Visit Depression Shingles Chief Complaint Admit Date THB follow up, shingles May 23 2:48pm Z94.4 T86.41 July 01, 2024 11:44am TBH, abd pain, hyperglyemia, folliceliti s July 19, 2024 9:54am Reason for Visit Admit Date Depression May 23, 2024 2: 48pm Shingles May 23, 2024 2: 48pm Dehydration July 19, 2024 9 :54am Hyperglycemia due to type 1 diabetes dewayne litus July 19, 2024 9:54am Chief Complaint Admit Date TBH, abd pain, hyperglyemia, folliceliti s July 19, 2024 9:54am Z94.4 T86.41 August 15, 2024 7:20am Z94.4, D84.9, T86.90 September 09, 2024 7:42am Amb Documentation October 07, 2024 11 :44am ER f/u abd pain/ cold sx October 10 3:01pm Reason for Visit Admit Date Dehydration July 19, 2024 9 :54am Hyperglycemia due to type 1 diabetes dewayne litus July 19, 2024 9:54am Chief Complaint Admit Date TBH, abd pain, hyperglyemia, folliceliti s July 19, 2024 9:54am Z94.4 T86.41 August 15, 2024 7:20am Z94.4, D84.9, T86.90 September 09, 2024 7:42am Amb Documentation October 07, 2024 11 :44am Z94.4 T86.41 October 10, 2024 1: 15pm ER f/u abd pain/ cold sx October 10 3:01pm Reason for Visit Admit Date Dehydration July 19, 2024 9 :54am Hyperglycemia due to type 1 diabetes dewayne litus July 19, 2024 9:54am Hyperglycemia due to type 1 diabetes dewayne litus October 10, 2024 3:01pm Hypertension October 10, 2024 3: 01pm Kidney stones October 10, 2024 3: 01pm Liver replaced by transplant October 3:01pm Chief Complaint Admit Date Z94.4 T86.41 August 15, 2024 7:20am Z94.4, D84.9, T86.90 September 09, 2024 7:42am Amb Documentation October 07, 2024 11 :44am Z94.4 T86.41 October 10, 2024 1: 15pm ER f/u abd pain/ cold sx October 10 3:01pm FMLA Paperwork October 31, 2024 2 :29pm Reason for Visit Admit Date Hyperglycemia due to type 1 diabetes dewayne litus October 10, 2024 3:01pm Hypertension October 10, 2024 3: 01pm Kidney stones October 10, 2024 3: 01pm Liver replaced by transplant October 3:01pm Chief Complaint Admit Date Z94.4 T86.41 August 15, 2024 7:20am Z94.4, D84.9, T86.90 September 09, 2024 7:42am Amb Documentation October 07, 2024 11 :44am Z94.4 T86.41 October 10, 2024 1: 15pm ER f/u abd pain/ cold sx October 10 3:01pm FMLA Paperwork October 31, 2024 2 :29pm Z94.4 November 05, 2024 1 :02pm Reason for Visit Admit Date Hyperglycemia due to type 1 diabetes dewayne litus October 10, 2024 3:01pm Hypertension October 10, 2024 3: 01pm Kidney stones October 10, 2024 3: 01pm Liver replaced by transplant October 3:01pm Depression October 31, 2024 2 :29pm Chief Complaint Admit Date Amb Documentation October 07, 2024 11 :44am Z94.4 T86.41 October 10, 2024 1: 15pm ER f/u abd pain/ cold sx October 10 3:01pm FMLA Paperwork October 31, 2024 2 :29pm Z94.4 November 05, 2024 1 :02pm t86.41 z94.4 December 09, 2024 3:2 6pm Chief Complaint Admit Date Amb Documentation October 07, 2024 11 :44am Z94.4 T86.41 October 10, 2024 1: 15pm ER f/u abd pain/ cold sx October 10 3:01pm FMLA Paperwork October 31, 2024 2 :29pm Z94.4 November 05, 2024 1 :02pm t86.41 z94.4 December 09, 2024 3:2 6pm congestion, cough December 11, 2024 9:4 9am Chief Complaint Admit Date Z94.4 November 05, 2024 1 :02pm t86.41 z94.4 December 09, 2024 3:2 6pm congestion, cough December 11, 2024 9:4 9am Reason for Visit Admit Date Hypokalemia December 11, 2024 9:4 9am Liver replaced by transplant December 11, 2024 9:49am Sinusitis, acute maxillary December 11, 2 025 9:49am Chief Complaint Admit Date t86.41 z94.4 December 09, 2024 3:2 6pm congestion, cough December 11, 2024 9:4 9am Z94.4 T86.90 R79.89 E83.42 January 31, 2025 10:48am Amb Documentation February 25, 2025 11:19 am TB ER f/u March 04, 2025 3:04p m Reason for Visit Admit Date Hypokalemia December 11, 2024 9:4 9am Liver replaced by transplant December 11, 2024 9:49am Sinusitis, acute maxillary December 11, 2 025 9:49am Hyperglycemia due to type 1 diabetes dewayne litus March 04, 2025 3:04pm Irritable bowel syndrome with diarrhea J une 2024 3:04pm Left otitis media March 04, 2025 3:04p m Liver replaced by transplant March 04, 2 025 3:04pm Chief Complaint Admit Date Z94.4 T86.90 R79.89 E83.42 January 31, 2025 10:48am Amb Documentation February 25, 2025 11:19 am z94.4 March 04, 2025 11:42 am TBH ER f/u March 04, 2025 3:04p m z94.4 r79.89 e83.42 tbb.90 March 31 3:02pm Reason for Visit Admit Date Hyperglycemia due to type 1 diabetes dewayne litus March 04, 2025 3:04pm Irritable bowel syndrome with diarrhea J une 2024 3:04pm Left otitis media March 04, 2025 3:04p m Liver replaced by transplant March 04, 025 3:04pm Chief Complaint Admit Date z94.4 March 04, 2025 11:42 am TBH ER f/u March 04, 2025 3:04p m z94.4 r79.89 e83.42 tbb.90 March 31 3:02pm FMLA paperwork May 28, 2025 9: 26am Chief Complaint Admit Date z94.4 March 04, 2025 11:42 am TBH ER f/u March 04, 2025 3:04p m z94.4 r79.89 e83.42 tbb.90 March 31 3:02pm FMLA paperwork May 28, 2025 9: 26am Z94.4 T86.90 R79.89 E83.42 May 28, 2025 10:47am Reason for Visit Admit Date Hyperglycemia due to type 1 diabetes dewayne litus March 04, 2025 3:04pm Irritable bowel syndrome [facility] 20[facility] 3:04pm Left otitis media March 04, 2025 3:04p m Liver replaced by transplant March 04, 3:04pm Depression May 28, 2025 9: 26am Hyperglycemia due to type 1 diabetes dewayne litus May 28, 2025 9:26am Irritable bowel syndrome with diarrhea A ugust 2024 9:26am Jaundice not of May 28 9:26am Liver replaced by transplant May 9:26am Chief Complaint Admit Date z94.4 r79.89 e83.42 tbb.90 March 31 3:02pm FMLA paperwork May 28, 2025 9: 26am Z94.4 T86.90 R79.89 E83.42 May 28, 2025 10:47am Urinalysis June 16, 2025 3:04pm Reason for Visit Admit Date Depression May 28, 2025 9: 26am Hyperglycemia due to type 1 diabetes dewayne litus May 28, 2025 9:26am Irritable bowel syndrome with diarrhea A ugust 2024 9:26am Jaundice not of May 28 9:26am Liver replaced by transplant May 9:26am Dysuria June 16, 2025 3:04pm Chief Complaint Admit Date z94.4 r79.89 e83.42 tbb.90 March 31 3:02pm FMLA paperwork May 28, 2025 9: 26am Z94.4 T86.90 R79.89 E83.42 May 28, 2025 10:47am Urinalysis June 16, 2025 3:04pm R30 June 16, 2025 4:15pm Assessments No Assessments Information Available Chief Complaint * A telephone visit (audio [...] Ayoub * Reason for consult: EBV viremia Summary Purpose Reason for Referral Specialty Diagnoses / Procedures Referred By Contac t Referred To Contact Radiology Diagnoses Elevated LFTs Liver replaced by transplant (CMS/HCC) Complications, organ transplant Procedures US [place] [address] [address] Department [place] [address] Referral ID Status Reason Start Date Expiration Date Visits Requested Visits Authorized [id number] Authorized Perform Procedure 01/03/2024 01/02/2025 1 1 Specialty Diagnoses / Procedures Referred By Contac t Referred To Contact Radiology Diagnoses Liver replaced by transplant (CMS/HCC) Elevated LFTs Procedures US guided [place] [address] [address] Department [place] [address] Referral ID Status Reason Start Date Expiration Date Visits Requested Visits Authorized [id number] Authorized Perform Procedure 12/05/2023 12/04/2024 1 1 Additional Source Comments Care Teams (unrecognized sec tion and content) Team Status: Active Member Role Status Dates Coby Sosa MD Primary Care Provider Active Team Status: Inactive Member Role Status Dates Coby Sosa MD Primary Care Provider Active Start: November 05, 2024 End: November 05, 2024 Sharan Ayoub MD Attending Provider Active Sta rt: November 05, 2024 End: November 05, 2024 Team Status: Inactive Member Role Status Dates Coby Sosa MD Primary Care Provider Active Start: December 09, 2024 End: December 09, 2024 Sharan Ayoub MD Attending Provider Active Sta rt: December 09, 2024 End: December 09, 2024 Team Status: Inactive Member Role Status Dates Coby Sosa MD Primary Care Provide r, Attending Provider Active Start: December 11, 2024 End: December 11, 2024 Team Status: Inactive Member Role Status Dates Coby Sosa MD Primary Care Provider Active Start: January 31, 2025 End: January 31, 2025 Sharan Ayoub MD Attending Provider Active Sta rt: January 31, 2025 End: January 31, 2025 Team Status: Active Member Role Status Dates Coby Sosa MD Primary Care Provider Active Start: October 04, 2024 Chacha Rai PA-C Attending Provider Active Start : October 04, 2024 Team Status: Active Member Role Status Dates Coby Sosa MD Primary Care Provider Active Start: October 07, 2024 Dipti Haji CMA Attending Provider Active Start: October 07, 2024 Team Status: Inactive Member Role Status Dates Coby Sosa MD Primary Care Provider Active Start: October 10, 2024 End: October 10, 2024 Sharan Ayoub MD Attending Provider Active Sta rt: October 10, 2024 End: October 10, 2024 Team Status: Inactive Member Role Status Dates Coby Canales Sosa , MD Primary Care Provide r, Attending Provider Active Start: October 10, 2024 End: October 10, 2024 Team Status: Inactive Member Role Status Kadeem Sosa MD Primary Care Provide r, Attending Provider Active Start: October 31, 2024 End: October 31, 2024 Team Status: Inactive Member Role Status Kadeem Sosa MD Primary Care Provider Active Start: August 15, 2024 End: August 15, 2024 Sharan Ayoub MD Attending Provider Active Sta rt: August 15, 2024 End: August 15, 2024 Team Status: Inactive Member Role Status Kadeem Sosa MD Primary Care Provider Active Start: September 09, 2024 End: September 09, 2024 Sharan Ayoub MD Attending Provider Active Sta rt: September 09, 2024 End: September 09, 2024 Team Status: Active Member Role Status Kadeem Sosa MD Primary Care Provider Active Start: July 14, 2024 Modesto Agudelo DO Attending Provider Active S tart: July 14, 2024 Team Status: Active Member Role Status Kadeem Sosa MD Primary Care Provide r, Attending Provider Active Start: July 15, 2024 Team Status: Active Member Role Status Kadeem Sosa MD Primary Care Provider Active Start: July 15, 2024 Travis Gastelum DO Attending Provider Active Sta rt: July 15, 2024 Team Status: Active Member Role Status Kadeem Sosa MD Primary Care Provider Active Start: July 16, 2024 Roc Gonzalez MD Attending Provider Active Sta rt: July 16, 2024 Team Status: Inactive Member Role Status Kadeem Sosa MD Primary Care Provide r, Attending Provider Active Start: July 19, 2024 End: July 19, 2024 Team Status: Active Member Role Status Kadeem Sosa MD Primary Care Provider Active Start: October 10, 2024 Sharan Ayoub MD Attending Provider Active Sta rt: October 10, 2024 Team Status: Inactive Member Role Status Kadeem Sosa MD Primary Care Provide r, Attending Provider Active Start: May 23, 2024 End: May 23, 2024 Team Status: Inactive Member Role Status Kadeem Sosa MD Primary Care Provider Active Start: July 01, 2024 End: July 01, 2024 Sharan Ayoub MD Attending Provider Active Sta rt: July 01, 2024 End: July 01, 2024 Team Status: Active Member Role Status [...] Active Leighton Reilly MD Other Provider Active Boom Crane Operator Relationship Specialty Start Date End Date Coby Sosa MD [address] [place] [address] PCP - General 05/19/16 Nae Campos RN Manager Intelligence Transplant 07/07/23 Boom Crane Operator Relationship Specialty Start Date End Date Coby [...] October 26, 2023 End: October 26, 2023 Boom Crane Operator Relationship Specialty Start Date End Date Coby Sosa MD PCP - General 05/19/16 Nae Campos, electric sign wirerManager Intelligence Transplant 07/07/23 Team Status: Inactive Member Role [...] January 04, 2024 End: January 04, 2024 Boom Crane Operator Relationship Specialty Start Date End Date Coby Sosa MD PCP - General 05/19/16 Nae Campos, electric sign wirerManager Intelligence Transplant 07/07/23 Boom Crane Operator Relationship Specialty Start Date End Date Coby Sosa MD PCP - General 05/19/16 Nae Campos, electric sign wirerManager Intelligence Transplant 07/07/23 Boom Crane Operator Relationship Specialty Start Date End Date Coby Sosa MD [address] [place] [address] PCP - General 05/19/16 Nae Campos, electric sign wirerManager Intelligence Transplant 07/07/23 Team Status: Inactive Member Role Status Dates Coby Sosa MD Primary Care Provider Active Start: January 30, 2024 End: January 30, 2024 Sharan Ayoub MD Attending Provider Active Sta rt: January 30, 2024 End: January 30, 2024 Boom Crane Operator Relationship Specialty Start Date End Date Coby Sosa MD [address] [place] [address] PCP - General 05/19/16 Nae Campos, electric sign wirerManager Intelligence Transplant 07/07/23 Team Status: Inactive Member Role [...] April 09, 2024 End: April 09, 2024 Boom Crane Operator Relationship Specialty Start Date End Date Coby Sosa MD [address] [place] [address] PCP - General 05/19/16 Nae Campos, electric sign wirerManager Intelligence Transplant 07/07/23 Boom Crane Operator Relationship Specialty Start Date End Date Unallocated, MD [address] [place] [address] PCP - General Family Medicine 04/08/24 Boom Crane Operator Relationship Specialty Start Date End Date Unallocated, [place] [address] PCP - General Family Medicine 04/08/24 Boom Crane Operator Relationship Specialty Start Date End Date Unallocated, Bella Sparks MD [address] [place] [address] PCP - General Family Medicine 04/08/24 Boom Crane Operator Relationship Specialty Start Date End Date Coby Sosa MD [address] [place] [address] PCP - General 05/19/16 Nae Campos, electric sign wirerManager Intelligence Transplant 07/07/23 Boom Crane Operator Relationship Specialty Start Date End Date Unallocated, Bella Sparks MD [address] [place], [place] [address] [address] PCP - General Family Medicine 04/08/24 Boom Crane Operator Relationship Specialty Start Date End Date Unallocated, Bella Sparks MD [place] [address] PCP - General Family Medicine 04/08/24 Boom Crane Operator Relationship Specialty Start Date End Date Unallocated, Bella Sparks MD [place] [address] PCP - General Family Medicine 04/08/24 Boom Crane Operator Relationship Specialty Start Date End Date Coby Sosa MD [address] [place] [address] PCP - General 05/19/16 Nae Campos, electric sign wirerManager Intelligence Transplant 07/07/23 Boom Crane Operator Relationship Specialty Start Date End Date Coby Sosa MD [address] [place] [address] PCP - General 05/19/16 Nae Campos, electric sign wirerManager Intelligence Transplant 07/07/23 Team Status: Active Member Role Status Dates Coby Sosa MD Primary Care Provider Active Start: February 25, 2025 Dipti Haji CMA Attending Provider Active Start: February 25, 2025 Team Status: Inactive Member Role Status Dates Coby Sosa MD Primary Care Provider Active Start: March 04, 2025 End: March 04, 2025 Sharan Ayoub MD Attending Provider Active Sta rt: March 04, 2025 End: March 04, 2025 Team Status: Inactive Member Role Status Dates Coby Sosa MD Primary Care Provide r, Attending Provider Active Start: March 04, 2025 End: March 04, 2025 Team Status: Active Member Role Status Dates Coby Sosa MD Primary Care Provider Active Start: March 04, 2025 Sharan Ayoub MD Attending Provider Active Sta rt: March 04, 2025 Team Status: Inactive Member Role Status Dates Coby Sosa MD Primary Care Provider Active Start: March 04, 2025 End: March 04, 2025 Coby Sosa MD Attending Provider Active St art: March 04, 2025 End: March 04, 2025 Team Status: Inactive Member Role Status Dates Coby Sosa MD Primary Care Provider Active Start: March 31, 2025 End: March 31, 2025 Sharan Ayoub MD Attending Provider Active Sta rt: March 31, 2025 End: March 31, 2025 Boom Crane Operator Relationship Specialty Start Date End Date Coby Sosa MD [address] [place] [place] [address] PCP - General 05/19/16 Nae Campos RN Manager Intelligence Transplant 07/07/23 Boom Crane Operator Relationship Specialty Start Date End Date Unallocated, Noms MD [address] [place] [address] PCP - General Family Medicine 04/08/24 Team Status: Inactive Member Role Status Dates Coby Sosa MD Primary Care Provider Active Start: May 28, 2025 End: May 28, 2025 Coby Sosa MD Attending Provider Active St art: May 28, 2025 End: May 28, 2025 Team Status: Inactive Member Role Status Dates Coby Sosa MD Primary Care Provider Active Start: May 28, 2025 End: May 28, 2025 Sharan Ayoub MD Attending Provider Active Sta rt: May 28, 2025 End: May 28, 2025 Team Status: Inactive Member Role Status Dates Coby Sosa MD Primary Care Provider Active Start: June 16, 2025 End: June 16, 2025 Coby Sosa MD Attending Provider Active St art: June 16, 2025 End: June 16, 2025 Team Status: Inactive Member Role Status Dates Coby Sosa MD Attending Provider Active St art: June 16, 2025 End: June 16, 2025 Goals (unrecognized section and content) Goals may [...] may be documented in an alternate section No data available for this sectionGoals may be documented in an alternate [...] may be documented in an alternate section (unrecognized sect ion and content) No Status Records FoundNo Status Records FoundNo Status Records FoundNo Status Records FoundNo Status Records FoundNo Status Records FoundNo Status Records FoundNo Status Records Found INFORMATION SOURCE (unrecogn ized section and content) DATE CREATED AUTHOR 10/28/2022 [facility] DATE CREATED AUTHOR AUTHOR'S ORGANIZ ATION 05/09/2023 [employer] DATE CREATED AUTHOR AUTHOR'S ORGANIZ ATION 06/11/2023 [facility] DATE CREATED AUTHOR AUTHOR'S ORGANIZ ATION 10/30/[address] [facility] DATE CREATED AUTHOR AUTHOR'S ORGANIZ ATION 01/03/2025 [facility] EPIC DATE CREATED AUTHOR AUTHOR'S ORGANIZ ATION 06/02/2025 [facility] DATE CREATED AUTHOR AUTHOR'S ORGANIZ ATION 06/05/2025 [facility] DATE CREATED AUTHOR AUTHOR'S ORGANIZ ATION 06/19/[address] [facility] y[facility] REASON FOR VISIT (unrecogniz ed section and content) Reason Comments Liver Post Transplant Follow-up Reason Comments Other [id number] Specialty Diagnoses / Procedures Referred By Contac t Referred To Contact Radiology Diagnoses Liver replaced by transplant (CMS/HCC) Elevated LFTs Procedures US guided [place] [address] [facility] [place] [address] Referral ID Status Reason Start Date Expiration Date Visits Requested Visits Authorized [id number] Authorized Perform Procedure 12/05/2023 12/04/2024 1 1 Specialty Diagnoses / Procedures Referred By Contac t Referred To Contact Radiology Diagnoses Elevated LFTs Liver replaced by transplant (CMS/HCC) Complications, organ transplant Procedures US [place] [address] [facility] [place] [address] Referral ID Status Reason Start Date Expiration Date Visits Requested Visits Authorized [id number] Authorized Perform Procedure 01/03/2024 01/02/2025 1 1 Specialty Diagnoses / Procedures Referred By Contac t Referred To Contact Radiology Diagnoses 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) Elevated LFTs Procedures US [place] [id number] [address] [facility] [place] [address] Referral ID Status Reason Start Date Expiration Date Visits Requested Visits Authorized [id number] Authorized Perform Procedure 01/11/2024 01/10/2025 1 1 Specialty Diagnoses / Procedures Referred By Contac t Referred To Contact Diagnoses 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 Procedures No coded services entered [place], [place] [id number] [address] [place] [address] [facility] [address] [id number] [place] [address] Referral ID Status Reason Start Date Expiration Date Visits Re quested Visits Authorized [id number] 1 1 Reason Comments Follow-up Reason Comments Verrucous Vulgaris Reason Comments Follow-up Reason Comments Med Refill Scheduled Active and Recently Administ ered Medications (unrecognized section and content) Medication Order 01/22/2024 01/23/2024 01/24/2024 amLODIPine (Norvasc) tablet 5 mg 5 mg, oral, Daily, First dose on Mon01/19/24 at 0900 0856 (Given - Provider: Ninoska Burden RN) 0956 (Given - Provider: Domonique Mcneil RN) 0834 (Given - Provider: Ninoska Burden, JULIEN) aspirin EC tablet 81 mg 81 mg, [...] Dawson MD) 0834 (Given - Provider: Ninoska Burden RN) insulin lispro (HumaLOG) injection 0-10 Units 0-10 [...] 10 Units, subcutaneous, Once, On Mon01/22/24 at 2000, For 1 dose, Please give 30 minutes prior to steroid dose 2012 (Given - Provider: Comfort Russell, JULIEN) insulin NPH (Isophane) (HumuLIN N,NovoLIN N) [...] at 0900 0834 (Given - Provider: Ninoska Burden RN) insulin NPH (Isophane) (HumuLIN N,NovoLIN N) injection 25 Units 25 Units, subcutaneous, Every 24 hours, First dose (after last modification) on Mon01/25/24 at 0900 INSULIN PUMP- PATIENT SUPPLIED pump - subcutaneous, Continuous Pump, First dose on Mon01/18/24 at 2200, For 28 days, Insulin Pump Optician: Expan, Using as Automated Delivery System: Yes, Insulin [...] Time and Target Levels: 9:33 PM / [phone] (Self Administered Via Pump - Provider: Comfort Russell RN) 2199 (Self Administered Via Pump - Provider: Amanda Hall RN) 2199 (Due) lidocaine 4 % patch 1 patch 1 patch, transdermal, Administer over 12 Hours, Daily, First dose on Mon01/23/24 at 0900, Apply to shoulder. Patch will remain on for 12 hours, then removed for [address] patch directly over any surgical incisions or wounds. 0959 (Medication Applied - Provider: Domonique Mcneil RN)2159 (Medication Removed - Provider: Amanda Hall RN) 0836 (Medication Applied - Provider: Ninoska Burden, JULIEN)2035 (Due: Medication Removed - Provider: Ninoska Burden RN) magnesium oxide (Mag-Ox) tablet 400 mg (COMPLETED) 400 mg, oral, Once, On Mon01/22/24 at 0900, For 1 dose 0851 (Given - Provider: Ninoska Burden RN) magnesium sulfate IV 2 g (COMPLETED) 2 [...] at 2100 2109 (Given - Provider: Comfort Russell RN) mycophenolate (Cellcept) capsule 250 mg 250 mg, oral, Every 12 hours, First dose on Mon01/18/24 at 2100 1217 (Given - Provider: Ninoska Burden RN)2333 (Given - Provider: Comfort Russell RN) 1210 (Given - Provider: Domonique Mcneil RN)2343 (Given - Provider: Amanda Hall RN) 1217 (Given - Provider: Ninoska Burden, JULIEN) pantoprazole (ProtoNix) EC tablet 40 mg 40 [...] 0834 (Given - Provider: Ninoska Burden, JULIEN) tacrolimus (Prograf) capsule 1 mg 1 mg, oral, User specified (2 times per day), First dose (after last modification) on Mon01/19/24 at 2359 1217 (Given - Provider: Ninoska Burden, JULIEN)2333 (Given - Provider: Comfort Russell RN) 1210 (Given - Provider: Domonique Mcneil RN)2342 (Given - Provider: Amanda Hall, JULIEN) 1217 (Given - Provider: Ninoska Burden, JULIEN)2359 (Due) PRN Medication Order 01/22/2024 01/23/2024 01/24/2024 acetaminophen (Tylenol) tablet 650 mg 650 mg, oral, Every 8 hours PRN, pain mild (1-3), first line, pain moderate (4-6), first line, Starting on Mon01/23/24 at 1208, If ordered PRN for pain, nurse is permitted to administer this medication for higher pain scores based on patient preference? Yes 2045 (Given - Provider: Amanda aHll RN) dextrose 50 % injection 12.5 g [...] to 40 mg/dL, Starting on Mon01/18/24 at 2048, May [...] dose, Intraprocedure 0845 (Given - Provider: Trudi Saleem, JULIEN) ondansetron (Zofran) injection 4 mg 4 mg, [...] g, oral, Daily PRN, constipation, Starting on Sherry 01/18/24 at 2028, Bowel Regimen - for prevention of constipation. [...] BE BASED ON THE PRIMARY CLINICAL RECORDS. [employer] [facility]. provides no warranty or guarantee of the accuracy or completeness of information in this document.
--- NOTE | 2025-06-23 13:24 | ED.ABDPAIN1 ---
HPI - Abdominal Pain General Chief Complaint: Abdominal Pain Stated Complaint: DIARRHEA FLANK PAIN ABDOMINAL PAIN Time Seen by Provider: 06/23/25 12:49 Source: patient Mode of arrival: walk-in History of Present Illness HPI narrative: The patient is a 30 years old male with history of liver transplant that was done in 2016, presenting to the ER after he has been complaining of diarrhea for months almost to be exacerbated a week ago with right upper quadrant pain, patient was evaluated outpatient by his primary care and diagnosed with possible UTI not responding right now his pain to antibiotics The patient just complaining that he is generally weak and tired complaining of right upper quadrant pain not associated with eating or drinking he also mentioned that the pain does not get better or worse with bowel movement although sometimes it feels much better. The patient denies any fever or chills he denies any vomiting but sometimes having nausea The bowel movement has been almost 2-3 times diarrhea for the last month. No use of his loag-mzz-sexdbss medication and the patient has been using his antirejection medication as prescribed Related Data Home Medications ?Medication ?Instructions ?Recorded ?Confirmed insulin lispro 100 unit/mL 1 sliding scale dose continuous 05/21/23 06/23/25 subcutaneous solution subcutaneous infusion PRN insulin pump magnesium oxide 400 mg (241.3 mg 400 mg PO BID 05/21/23 06/23/25 magnesium) tablet mycophenolate mofetil 250 mg 250 mg PO Q12H 05/21/23 06/23/25 capsule tacrolimus 1 mg capsule, 1 mg PO Q12H 05/21/23 06/23/25 immediate-release amlodipine 10 mg tablet 10 mg PO DAILY 06/23/25 06/23/25 azithromycin 250 mg tablet 250 mg PO DAILY 06/23/25 06/23/25 prednisone 5 mg tablet 15 mg PO DAILY 06/23/25 06/23/25 venlafaxine 75 mg capsule,extended 75 mg PO DAILY 06/23/25 06/23/25 release 24 hr Allergies Allergy/AdvReac Type Severity Reaction Status Date / Time amoxicillin (From Amoxil) Allergy Rash Verified 06/23/25 12:49 red (food color) AdvReac Intermediate Swelling Verified 06/23/25 12:49 of Lip/Tongue/Throat Review of Systems ROS Status of ROS 10 or more systems reviewed and unremarkable except as noted in history and below [facility] Medical History (Updated 06/23/25 @ 18:11 by Karin Multani MD) Hyperglycemia ?R73.9 - Hyperglycemia, unspecified (ICD-10) Hyperglycemia due to type 1 diabetes mellitus ?E10.65 - Type 1 diabetes mellitus with hyperglycemia (ICD-10) Vomiting ?R11.10 - Vomiting, unspecified (ICD-10) Hypertension ?I10 - Essential (primary) hypertension (ICD-10) Diabetes ?E11.9 - Type 2 diabetes mellitus without complications (ICD-10) Surgical History (Updated 05/08/24 @ 20:51 by Holli Amato) Liver transplant recipient ?Z94.4 - Liver transplant status (ICD-10) Family History (Updated 07/15/24 @ 00:09 by Katt Rodriguez) Other Family history of COPD (chronic obstructive pulmonary disease) Family history of diabetes mellitus Family history of hypertension Family history of myocardial infarction Family history of stroke Social History (Updated 07/15/24 @ 00:09 by Katt Rodriguez) Within the past year, how often did you have a drink containing alcohol: never Within the past year, how often did you have six or more drinks on one occasion: never Score interpretation: A score less than 4 is consistent with normal alcohol consumption. Smoking status: Never smoker Non-prescribed substance use: denies use Highest level of school completed/degree received: high school graduate In a typical week, how many times do you talk on the telephone with family, friends, or neighbors: 3 or more times per week How often do you get together with friends or relatives: 3 or more times per week Little interest or pleasure in doing things: not at all Feeling down, depressed, or hopeless: not at all Feel stressed/tense/nervous/anxious/difficulty sleeping: not at all Do you think of yourself as: straight/heterosexual Gender Identity: male Exam Narrative Exam Narrative: Nurses notes and vital signs reviewed and patient is not hypoxic. General: Well-appearing and in no apparent distress. Skin: Warm, dry, no pallor noted. No rash. Head: Normocephalic, atraumatic. Neck: Supple, non-tender. Eye: Pupils are equal, and icterus is noted Cardiovascular: Regular Rate and Rhythm without murmur, gallop or rub. Respiratory: No accessory muscle use or respiratory distress. Lungs are clear to auscultation, no wheezing, rales or rhonchi Chest Wall: no tenderness Back: No midline thoracic or lumbar vertebral tenderness. Mild subjective CVA tenderness Musculoskeletal: normal ROM, no calf or popliteal tenderness, no lower extremity edema/swelling GI: Abdomen is soft, non-distended. Normal bowel sounds. No masses appreciated. Subjective right upper quadrant tenderness but the patient have negative [place] Neurological: A&O x4. No cranial nerve dysfunction observed. No truncal ataxia. Moves all extremities. Sensation intact. Psychiatric: Cooperative and interactive. Normal mood and affect. Constitutional Vital Signs, click to edit/add: Last Vital Signs Temp 98 F 06/23/25 15:58 Pulse 80 06/23/25 15:58 Resp 16 06/23/25 15:58 BP 126/83 06/23/25 15:58 Pulse Ox 100 06/23/25 15:58 O2 Del Method Room Air 06/23/25 15:58 Course Vital Signs Vital signs: Vital Signs Temperature 98.3 F 06/23/25 12:50 Pulse Rate 90 06/23/25 12:50 Respiratory Rate 16 06/23/25 12:50 Blood Pressure 135/93 H 06/23/25 12:50 Pulse Oximetry 99 06/23/25 12:50 Oxygen Delivery Method Room Air 06/23/25 12:50 Temperature 98 F 06/23/25 15:58 Pulse Rate 80 06/23/25 15:58 Respiratory Rate 16 06/23/25 15:58 Blood Pressure 126/83 06/23/25 15:58 Pulse Oximetry 100 06/23/25 15:58 Oxygen Delivery Method Room Air 06/23/25 15:58 MDM - Abdominal Pain MDM Narrative Medical decision making narrative: The patient is jaundiced and he does have a history of liver transplant with his right upper quadrant pain that is a concern of 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 as well The patient CBC and chemistry shows no leukocytosis but the patient have some elevation in the neutrophils Chemistry shows a mild hypokalemia with bicarb 34 The patient was started on IV fluid initially with normal saline 1 L The patient then had a blood culture obtained after the CAT scan showed increase in his ascites with no other concerns checked for possible wall thickening along the wall of the colon greater at the ascending colon with surrounding fat stranding that could be secondary to intra-abdominal ascites or colitis The patient had a blood culture obtained and then was started initially on Imipenem 500 mg IV I did reach out to from Hepatlogy service in who recommended apparently the patient to be admitted The patient case was discussed with the hospitalist in [facility] and the recommendation right now to switch to ceftriaxone in case needed Lab Data Labs: Lab Results 06/23/25 06/23/25 06/23/25 Range/Units 13:15 13:18 14:55 WBC 10.2 (4.0-11.0) 10^3/uL RBC 4.74 (4.70-6.10) 10^6/uL Hgb 14.8 (14.0-18.0) g/dL Hct 44.2 (42.0-54.0) % MCV 93.2 (80.0-94.0) fL MCH 31.2 (25.9-34.0) pg MCHC 33.5 (29.9-35.2) g/dL RDW 14.1 (11.0-15.0) % Plt Count 165 (150-450) 10^3/uL MPV 11.3 (9.5-13.5) fL Neut % (Auto) 64.5 (43.0-75.0) % Lymph % (Auto) 24.8 (20.5-60.0) % [place] % (Auto) 7.9 (1.7-12.0) % Eos % (Auto) 1.4 (0.9-7.0) % Baso % (Auto) 0.6 (0.2-2.0) % Neut # (Auto) 6.6 H (1.4-6.5) 10^3/uL Lymph # (Auto) 2.5 (1.2-3.8) 10^3/uL [place] # (Auto) 0.8 (0.3-0.8) 10^3/uL Eos # (Auto) 0.1 (0.0-0.7) 10^3/uL Baso # (Auto) 0.1 (0.0-0.1) 10^3/uL Abs Immat Gran (auto) 0.08 H (0.00-0.03) 10^3/uL Imm/Tot Granulo (auto) 0.8 H (0.0-0.5) % PT 11.5 (9.0-11.6) sec INR 1.09 Sodium 141 (136-145) mmol/L Potassium 3.4 L (3.5-5.1) mmol/L Chloride 102 (98-107) mmol/L Carbon Dioxide 34.3 H (21.0-32.0) mmol/L Anion Gap 8.1 BUN 13.0 (7.0-18.0) mg/dL Creatinine 1.07 (0.70-1.30) mg/dL Est GFR ( Amer) >60 (>=60 mL/min/1.73m^2) Est GFR (Non-Af Amer) >60 (>=60 mL/min/1.73m^2) BUN/Creatinine Ratio 12.1 Glucose 187 H (74-106) mg/dL Lactate 1.4 (0.4-2.0) mmol/L Calcium 8.7 (8.5-10.1) mg/dL Total Bilirubin 4.4 H (0.2-1.0) mg/dL AST 100 H (15-37) U/L ALT 137 H (16-63) U/L Alkaline Phosphatase 446 H (46-116) U/L Total Protein 7.0 (6.4-8.2) g/dL Albumin 2.5 L (3.4-5.0) g/dL Globulin 4.5 g/dL Albumin/Globulin Ratio 0.6 Lipase 64.0 (16.0-77.0) U/L Urine Color Lt. yellow (YELLOW) Urine Clarity Clear (CLEAR) Urine pH 7.0 (5.0-9.0) Ur Specific [place] <=1.005 A (1.005-1.025) Urine Protein Negative (NEG/TRACE) mg/dL Urine Glucose (UA) Negative (NEGATIVE) mg/dL Urine Ketones Negative (NEGATIVE) mg/dL Urine Occult Blood Large A (NEGATIVE) Urine Nitrite Negative (NEGATIVE) Urine Bilirubin Negative (NEGATIVE) Urine Urobilinogen 1.0 (0.2-1.0) EU/dL Ur Leukocyte Esterase Small A (NEGATIVE) Urine RBC 5-10 A (0-2) #/HPF Urine WBC 5-10 A (NONE SEEN) #/HPF Ur Squamous Epith Cells Few A (NONE/RARE) #/LPF Urine Crystals Seen A (None Seen) #/HPF Calcium Oxalate Crystal Few Urine Bacteria Trace A (NONE SEEN) #/HPF Urine Casts None seen (NONE SEEN) #/LPF Urine Mucus None seen (NONE SEEN) Ur Culture Indicated? Yes-[facility] [place] Influenza Type A Ag Negative Influenza Type B Ag Negative SARS-CoV-2 Ag (CV2AG) Negative (NEGATIVE) Discharge Plan Discharge Chief Complaint: Abdominal Pain Clinical Impression: Abdominal pain, Ascites Patient Disposition: [facility] Time of Disposition Decision: 18:11 Discharge location: Dr Pollock
[2025-06-23 13:27] LABS: Hematocrit 44.2 % (42.0-54.0); Hemoglobin 14.8 g/dL (14.0-18.0); Immature Granulocytes Abs Auto 0.08 10^3/uL (0.00-0.03); Immature Granulocytes Pct Auto 0.8 % (0.0-0.5); Lymphocytes Absolute Auto 2.5 10^3/uL (1.2-3.8); Mean Corpuscular HGB Conc 33.5 g/dL (29.9-35.2); Mean Corpuscular Hemoglobin 31.2 pg (25.9-34.0); Mean Corpuscular Volume 93.2 fL (80.0-94.0); Platelet Count 165 10^3/uL (150-450); Red Blood Count 4.74 10^6/uL (4.70-6.10); White Blood Count 10.2 10^3/uL (4.0-11.0)
[2025-06-23 13:37] LABS: SARS-CoV-2 Ag NEGATIVE (NEGATIVE)
[2025-06-23 13:42] LABS: Lactate/Lactic Acid 1.4 mmol/L (0.4-2.0)
[2025-06-23 13:43] LABS: INR 1.09; Prothrombin Time 11.5 sec (9.0-11.6)
[2025-06-23 13:49] LABS: Alanine Aminotransferase 137 U/L (16-63); Albumin Globulin Ratio 0.6; Albumin Level 2.5 g/dL (3.4-5.0); Alkaline Phosphatase 446 U/L (46-116); Anion Gap 8.1; Aspartate Amino Transferase 100 U/L (15-37); Blood Urea Nitrogen 13.0 mg/dL (7.0-18.0); Calcium 8.7 mg/dL (8.5-10.1); Carbon Dioxide 34.3 mmol/L (21.0-32.0); Chloride 102 mmol/L (98-107); Estimated GFR (African America >60 (>=60 mL/min/1.73m^2); Estimated GFR (Non-African Ame >60 (>=60 mL/min/1.73m^2); Globulin 4.5 g/dL; Glucose 187 mg/dL (74-106); Lipase 64.0 U/L (16.0-77.0); Potassium 3.4 mmol/L (3.5-5.1); Sodium 141 mmol/L (136-145); Total Protein 7.0 g/dL (6.4-8.2)
--- NOTE | 2025-06-23 14:05 | CT_ITS ---
[address] [address] Patient Name: LULY GIRON MRN: [id number] date: 1995 Sex: M Assigned Patient Location: ER Current Patient Location: ER Accession/Order Number: [id number] Exam Date: 06/23/2025 14:31 Report Date: 06/23/2025 15:33 At the request of: ANATOLIY LATIF MD Procedure: CT abdomen pelvis w con CT abdomen pelvis w con 06/23/2025 2:37 PM SIGNS AND SYMPTOMS: ruq pain, h/o liver transplant and kidney stone hx TECHNIQUE: Multidetector ct axial images of the abdomen and pelvis were obtained with IV contrast. Multiplanar reformats were performed and reviewed to further define anatomy and possible pathology. CT was performed with one or more of the following dose reduction techniques: Automated exposure control, adjustment of the mA and/or kV according to patient size, or use of iterative reconstruction technique. COMPARISON: 10/04/2024. FINDINGS: Lower Chest: Within normal limits. ABDOMEN: Liver: Postoperative changes are noted in the right upper quadrant consistent with a previous liver transplant. The liver is heterogeneous. Bile Ducts: Normal caliber. Gallbladder: Previously removed. Pancreas: Within normal limits. Spleen: Within normal limits. Adrenals: Within normal limits. Kidneys: There are nonobstructing stones in the renal collecting systems bilaterally measuring up to 7 mm in greatest dimension on the left and 7 mm on the right. Pelvis: Reproductive Organs: No pelvic masses. Ureters: Within normal limits. Bladder: Within normal limits. Bowel: Normal caliber. There is a normal appendix in the right lower quadrant. There is wall thickening along the colon, greatest in the ascending colon with surrounding fat stranding. Mesenteric Lymph Nodes: No enlarged mesenteric lymph nodes. Peritoneum: There is worsening intraabdominal ascites. Vessels: within normal limits. Venous collaterals are noted throughout the upper abdomen. Retroperitoneum: Within normal limits. Abdominal Wall: Within normal limits. Bones: Subcortical sclerosis is noted in the femoral heads bilaterally. CT/CT abdomen pelvis w con IMPRESSION: There is evidence of prior liver transplant. The transplant liver is heterogeneous. There are multiple venous varices within the upper abdomen. These are unchanged. There is worsening intraabdominal ascites. There is wall thickening along the colon, greatest in the ascending colon with surrounding fat stranding. This may represent sequelae of intraabdominal ascites. Colitis is not excluded. Impression dictated by: John Melgar M.D. 06/23/2025 3:33 PM Dictation Location: [place] [address] Electronically authenticated by: [id number] Y Date: 06/23/2025 15:33
[2025-06-23] MEDS: 0.9 % SODIUM CHLORIDE 1,000 ML 1000 ML IV (14:28)
[2025-06-23 15:16] LABS: Glucose Urine UA NEGATIVE (NEGATIVE)
[2025-06-23 15:40] LABS: Cast Seen? NONE SEEN #/LPF (NONE SEEN); Crystals Seen? Seen #/HPF (None Seen); Urine Culture Indicated YES-FRMC
[2025-06-23 15:58] VITALS: BP 126/83; PULSE 80; TEMP 36.6; O2SAT 100
[2025-06-23] MEDS: IMIPENEM/CILASTATIN SODIUM 500 MG in 0.9 % SODIUM CHLORIDE 100 ML 200 MG IV (17:37)
== END 2025-06-23 21:26 | disposition left against medical advice (07) ==
PROVIDERS: Emergency Medicine; Emergency Provider Internal Medicine; PCP Family Medicine
DX: R18.8 Other ascites (principal); R10.11 Right upper quadrant pain; Z53.29 Procedure and treatment not carried out because of patient's decision for other reasons; R19.7 Diarrhea, unspecified; Z94.4 Liver transplant status; Z79.899 Other long term (current) drug therapy; R17 Unspecified jaundice
CPT/HCPCS: 36415; 74177; 80053; 81001; 83605; 83690; 85025; 85610; 87040; 87086; 87804; 87811; 96361; 96365; 99285; J0743; Q9967